=== PATIENT | female | born 1990 | race African-American/Black ===

== ENCOUNTER → 2018-01-12 | Outpatient (CLI) | payer MEDICAID ==
[~2018-01-12] MED LIST: ACET325T38 PO; ACHD5005 PO; ALBU8.5HRX INH; AMLO10TA2 PO; CEFU500T PO; CLN.2T PO; CLON0.1T PO; DIGO125T PO; DIPH25CA79 PO; FOLI1TAB24 PO; GABA-488 PO; LISI5TAB14 PO; LORA-714 PO; LORA1TAB PO; METO-272 PO; METO-333 PO; METO25TA2 PO; METO50TA15 PO; PNT40TEC PO; VENL150T PO; WARF4TAB7 PO; ZALE10CA PO
== END ==
LOC: CARD 10:17
PROVIDERS: ATTEND Physician Assistant
DX: G93.1 Anoxic brain damage, not elsewhere classified (principal); I50.1 Left ventricular failure, unspecified; I11.0 Hypertensive heart disease with heart failure; I51.3 Intracardiac thrombosis, not elsewhere classified
CPT/HCPCS: 93306

== ENCOUNTER 2018-08-05 17:38 | Emergency (ER) | payer MEDICAID ==
[~2018-08-05] VITALS: Ht 160 cm; Wt 95.3 kg
[~2018-08-05 17:38] MED LIST changes: -AMLO10TA2 PO; +AMLO10TA6 PO
[2018-08-05] MEDS ORDERED: CARI1.5C (18:10)
[2018-08-05] MEDS ORDERED: ROPI0.5T2 (18:10)
[2018-08-05] MEDS ORDERED: CYCL10TA9 (18:10)
[2018-08-05] MEDS ORDERED: SACU1TAB (18:10)
[2018-08-05] MEDS ORDERED: FAMO20TA5 (18:11)
--- NOTE | 2018-08-05 18:28 | ED General ---
General Chief Complaint: General Problems/Pain Stated Complaint: HEAD HURTING,RT ANKLE SWOLLEN Nursing Triage Note: PT CO OF SCALP BURN FROM PERMANENT, R ANKLE PAIN FROM FALL, AND LOW BACK PAIN AT TIMES Nursing Sepsis Screen: No Definite Risk Source of Information: Patient Exam Limitations: No Limitations History of Present Illness Date Seen by Provider: Aug 05, 2018 Time Seen by Provider: 17:50 Initial Comments Patient is a 27-year-old female who presents to the emergency room with complaints of a scalp burn from her permanent while she was getting her hair done. Complaints of a right ankle pain from fall and intermittent low back pain. She is currently on Flexeril for her back pain. Timing/Duration: 4-6 Hours Associated Systoms: Denies Symptoms Allergies and Home Medications Allergies Coded Allergies: JIA Inhibitors (Verified Allergy, Severe, 07/24/15) ARB-Angiotensin Receptor Antagonist (Verified Allergy, Severe, 07/24/15) baclofen (Unverified Allergy, Unknown, 03/24/15) ON H&P phenazopyridine (Unverified Allergy, Unknown, 03/24/15) ON H&P Home Medications Albuterol Sulfate 8 Gm Hfa.aer.ad, 2 PUFF INH Q6H PRN for SHORTNESS OF BREATH, ( Reported) Amlodipine Besylate 10 Mg Tablet, 10 MG PO DAILY, (Reported) Metoprolol Tartrate 50 Mg Tablet, 50 MG PO BID Prescribed by: FELECIA FORTUNE on 07/24/15 0841 Venlafaxine HCl 150 Mg Tab.er.24, 150 MG PO DAILY, (Reported) Warfarin Sodium 4 Mg Tablet, 8 MG PO HS, (Reported) TAKES 2 (4MG) TABLETS Patient Home Medication List Home Medication List Reviewed: Yes Review of Systems Review of Systems Constitutional: see HPI; No chills, No fever Genitourinary: no symptoms reported, other (low back pain) Musculoskeletal: see HPI, back pain Skin: see HPI, other (scalp irritation from permanent) Past Waxxjzw-Fjoeic-Pyfdkw Hx Past Med/Social Hx: Reviewed Nursing Past Med/Soc Hx Patient Social History Alcohol Use: Denies Use Recreational Drug Use: Yes (HX) Smoking Status: Former Smoker Recent Foreign Travel: No Contact w/Someone Who Travel: No Recent Infectious Disease Expo: No Recent Hopitalizations: No Immunizations Up To Date Tetanus Booster (TDap): Unknown Date of Pneumonia Vaccine: Mar 21, 2015 Date of Influenza Vaccine: Aug 19, 2015 Past Medical History Surgeries: Yes (DEFIBRILLATOR PLACED 07/23/15. PEG TUBE--REMOVED) Abdominal, Section, Defibrillator, Gallbladder, Tracheostomy Respiratory: Yes (ARDS-CODED; PNEUMOTHORAX 06/2015) Pneumonia, Chronic Bronchitis Currently Using CPAP: No Currently Using BIPAP: No Cardiac: Yes (PULMONARY EDEMA/CARDIAC CAUSE-R/T ATRIAL THROMBUS; CARDIAC ARREST ;V-FIB ) Cardiomyopathy, Endocarditis, Valvular Heart Disease Neurological: Yes (encephalopathy-hypoxia, anoxic brain injury) Reproductive Disorders: No Sexually Transmitted Disease: No Renal Failure Gastrointestinal: Yes Gastroesophageal Reflux Musculoskeletal: Yes (GAIT DISTURBANCE) Endocrine: No Loss of Vision: Denies Hearing Impairment: Denies Cancer: No Psychosocial: Yes (per med record) Anxiety, Bipolar, Depression Integumentary: No Blood Disorders: Yes (ANEMIA) Family Medical History Reviewed Nursing Family Hx Patient reports no known family medical history. Physical Exam Vital Signs Vital Signs - First Documented 08/05/18 17:50 Temp 97.9 Pulse 96 Resp 18 B/P (MAP) 112/91 (98) Pulse Ox 97 Capillary Refill : Less Than 3 Seconds Height, Weight, BMI Height: 5'3.00" Weight: 210lbs. 0.1oz. 95.632780gd; 28.34 BMI Method:Stated General Appearance: No Apparent Distress, WD/WN HEENT: PERRL/EOMI, TMs Normal, Normal ENT Inspection, Pharynx Normal Respiratory: Chest Non Tender, Lungs Clear, Normal Breath Sounds, No Accessory Muscle Use, No Respiratory Distress Cardiovascular: Regular Rate, Rhythm, No Edema, No Gallop, No JVD, No Murmur, Normal Peripheral Pulses Back: Normal Inspection, No CVA Tenderness, No Vertebral Tenderness Neurologic/Psychiatric: Alert, Oriented x3 Skin: Normal Color, Warm/Dry, Other (chemical burn to the scalp.) Progress/Results/Core Measures Suspected Sepsis Recent Fever Within 48 Hours: No Infection Criteria Present: None New/Unexplained Altered Menta: No Sepsis Screen: No Definite Risk SIRS Temperature:97.9 Pulse: 96 Respiratory Rate: 18 Blood Pressure 112 /91 Mean: 98 Results/Orders Lab Results My Orders Vital Signs/I&O Capillary Refill : Less Than 3 Seconds Blood Pressure Mean: 98 Diagnostic Imaging Diagonstic Imaging: Xray Plain Films/CT/US/NM/MRI: ankle Comments NAME: SAL PRIEST [facility] REC#: [id number] PT STATUS: REG ER : 1990 PHYSICIAN: NIK CELIS ADMIT DATE: 08/05/18/ER Draft Date of Exam:08/05/18 ANKLE, RIGHT, 3 VIEWS EXAMINATION: Right ankle radiographs, 3 views. COMPARISON: None. HISTORY: 27-year-old female, fall. Right ankle pain. FINDINGS: There is no identified acute fracture. The alignment of the ankle mortise is unremarkable. There is no identified ankle joint effusion. There is no radiopaque foreign body. There is no particular prominent focal soft tissue swelling. IMPRESSION: Unremarkable radiographs of the right ankle. Dictated on workstation # [id number] Dict: 08/05/181901 Trans: 08/05/181904 [facility] [id number] Interpreted by: SVEN KNOTT MD Electronically signed by: Departure Impression Primary Impression: Ankle pain Additional Impressions: Chemical burn Chronic back pain Disposition: 01 HOME, SELF-CARE Condition: Stable/Unchanged Departure-Patient Inst. Decision time for Depature: 19:14 Referrals: WILLIE KOCH MD (PCP) Primary Care Physician Patient Instructions: Ankle Sprain Add. Discharge Instructions: Follow-up with her primary care provider within 1 week for recheck. Be sure you wash her hair thoroughly to remove all of the permanent. Take your home medications as previously prescribed. Return back to the emergency room for any worsening symptoms or concerns as needed. All discharge instructions reviewed with patient and/or family. Voiced understanding. NIK CELIS Aug 05, 2018 18:28
[2018-08-05 18:32] LABS: BILIRUBIN,URINE NEGATIVE (NEGATIVE); CLARITY,URINE SLIGHTLY CLOUDY; COLOR,URINE YELLOW; GLUCOSE, URINE (UA) NEGATIVE (NEGATIVE); KETONES,URINE NEGATIVE (NEGATIVE); LEUKOCYTE ESTERASE ,URINE NEGATIVE (NEGATIVE); NITRITE,URINE NEGATIVE (NEGATIVE); PH,URINE 5 (5-9); PROTEIN,URINE 4+ (NEGATIVE); UROBILINOGEN,URINE NORMAL (NORMAL)
--- OUTSIDE RECORDS SUMMARY | 2018-08-05 18:34 | XMS REPORT ---
Author Author MALINA ROSA [facility] Address Unknown Care Team Providers Care Potline Monitor Name Role Phone MALINA ROSA Unavailable PROBLEMS Unknown Problems ALLERGIES Substance Reaction Event Type Date Status Aspirin Unknown Drug Allergy March, Active SOCIAL HISTORY Never Assessed PLAN OF CARE Activity Details Follow Up prn Reason:referral VITAL SIGNS Blood pressure systolic 136 mmHg 2017-04-19 Blood pressure diastolic 88 mmHg 2017-04-19 MEDICATIONS Medication Instructions Dosage Frequency Start Date End Date Duration Status Lisinopril Active Warfarin Sodium Active Amlodipine & Diet Manage Prod Active Vitamin D Active Paroxetine HCl Active BusPIRone HCl Active Metoprolol Tartrate Active Ropinirole HCl Active Trazodone HCl Active RESULTS No Results PROCEDURES Procedure Date Ordered Result Body Site LTD ORAL EVALUATION - PROBLEM FOCUS April 19, 2017 INTRAORL-PERIAPICAL 1 FILM [id number] April 19, 2017 IMMUNIZATIONS No Known Immunizations MEDICAL (GENERAL) HISTORY Type Description Date Medical History Heart disease Medical History Defibrillator Medical History Kidney disease
--- OUTSIDE RECORDS SUMMARY | 2018-08-05 18:34 | XMS REPORT | Clinical Summary ---
Author Author [facility] Organization [facility] Address Unknown Phone Unavailable Care Team Providers Care Customer Success Specialist Name Role Phone Ausitn Tobias MD Unavailable Rhona Vazquez MD Unavailable Angie Barros MD Unavailable Marilyn Chapa MD PCP Unavailable Source Comments Some departments are not documenting in the electronic medical record. If you do not see the information that you expected, contact Release of Information in the Health Information Management department at [phone] for further assistance in locating additional records.[facility] Allergies Active Allergy Reactions Severity Noted Date Comments Odilon Inhibitors ANAPHYLAXIS High 12/17/2015 Arb-Angiotensin Receptor ANAPHYLAXIS High 12/17/2015 Antagonist Phenazopyridine UNKNOWN Low 12/09/2015 Current Medications Prescription Sig. Disp. Refills Start End Date Status Date suvorexant (BELSOMRA) 15 Take by mouth at bedtime Active mg tab as needed. ferrous sulfate 325 mg Take 325 mg by mouth Active (65 mg iron) tablet daily. DULoxetine DR (CYMBALTA) Take 60 mg by mouth twice Active 60 mg capsule daily. folic acid (FOLVITE) 1 mg Take 1 mg by mouth daily. Active tablet warfarin (COUMADIN) 3 mg Take 3 mg by mouth daily. Active tablet Pt takes 7 mg daily. warfarin (COUMADIN) 4 mg Take 4 mg by mouth daily. Active tablet amLODIPine (NORVASC) 10 Take 10 mg by mouth Active mg tablet daily. pantoprazole DR Take 40 mg by mouth Active (PROTONIX) 40 mg tablet daily. diphenhydrAMINE Take 25 mg by mouth every Active (BENADRYL) 25 mg capsule 6 hours as needed. metoprolol (LOPRESSOR) 50 Take 50 mg by mouth twice Active mg tablet daily. ergocalciferol (VITAMIN Take 1 Cap by mouth twice 24 Cap 0 12/18/19 Active D-2) 50,000 unit weekly. twice a week for 16 capsuleIndications: 4 weeks then once a week Vitamin D deficiency for 12 weeks. topiramate (TOPAMAX) 200 Take 200 mg by mouth Active mg tablet twice daily. acetaminophen (TYLENOL) Take 325 mg by mouth Active 325 mg tablet every 4 hours as needed for Pain. spironolactone Take 1 Tab by mouth 90 Tab 3 03/19/20 Active (ALDACTONE) 25 mg daily. 16 tabletIndications: Essential hypertension, Proteinuria Active Problems Not on file Social History Tobacco Use Types Packs/Day Years Used Date Never Smoker Sex Assigned at Date Recorded Not on file Last Filed Vital Signs Vital Sign Reading Time Taken Blood Pressure 108/86 03/16/2016 2:22 PM CDT Pulse 74 03/16/2016 2:22 PM CDT Temperature 36.8 C (98.2 F) 03/16/2016 2:12 PM CDT Respiratory Rate - - Oxygen Saturation - - Inhaled Oxygen - - Concentration Weight 81.6 kg (180 lb) 03/16/2016 2:12 PM CDT Height 160 cm (5' 3") 03/16/2016 2:12 PM CDT Body Mass Index 31.89 03/16/2016 2:12 PM CDT Plan of Treatment Health Maintenance Due Date Last Done Comments PHYSICAL (COMPREHENSIVE) 1995 EXAM PERTUSSIS VACCINE 1999 TETANUS VACCINE 2005 CERVICAL CANCER SCREENING 2009 INFLUENZA VACCINE 08/28/2018 HIV SCREENING Completed 12/09/2015 Results Not on filefrom Last 3 Months
--- OUTSIDE RECORDS SUMMARY | 2018-08-05 18:34 | XMS REPORT ---
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 729203868 Problem Adjustment disorder with other symptom F43.29 Active 96245588 ALLERGIES Substance Reaction Event Type Date Status Pyridium Unknown Drug Allergy March, Active Baclofen Unknown Drug Allergy March, Active Aspirin Unknown Drug Allergy March, Active ENCOUNTERS Encounter Location Date Diagnosis [facility] [id number] [place] [phone] March, Psychosis, unspecified psychosis type F29 ; Methamphetamine dependence, 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 and Unspecified mood [affective] disorder F39 [facility] [id number] [place] [phone] Jan, Adjustment disorder with other symptom F43.29 [facility] [id number] [place] [phone] March, Dental examination Z01.20 IMMUNIZATIONS No Known Immunizations SOCIAL HISTORY Never Assessed REASON FOR VISIT intake WB-MA PLAN OF CARE Activity Details Follow Up 3 Weeks Reason: f/u VITAL SIGNS Weight 214.7 lbs 2018-04-14 Heart Rate 82 bpm 2018-04-14 Respiratory Rate 20 2018-04-14 Blood pressure systolic 132 mmHg 2018-04-14 Blood pressure diastolic 86 mmHg 2018-04-14 MEDICATIONS Medication Instructions Dosage Frequency Start Date End Date Duration Status Invega 3 MG Orally Once a day at bedtime 1 tablet March, 30 day (s) Active Famotidine 20 MG Orally Once a day 1 tablet at bedtime 24h Active Paroxetine HCl Not-Taking Amlodipine & Diet Manage Prod 10 mg by oral route Once a day 1 tablet 24h Not-Taking Biotin 5000 5 MG Orally Once a day 1 capsule 24h Active Vitamin D-3 5000 UNIT Orally Once a day 1 tablet 24h Active Metoprolol Tartrate 50 mg Orally Twice a day 1 tablet with food 12h Active BusPIRone HCl Not-Taking Entresto 24-26 MG Orally Twice a day 1 tablet 12h Active Escitalopram Oxalate 10 MG Orally Once a day 1 tablet 24h Not- Taking Ropinirole HCl 0.5 MG Orally at bedtime 1 tablet Active Trazodone HCl Not-Taking Warfarin Sodium 5 MG Orally Once a day 1.5 tablets 24h Active Lisinopril Not-Taking RESULTS No Results PROCEDURES No Known procedures INSTRUCTIONS MEDICATIONS ADMINISTERED No Known Medications MEDICAL (GENERAL) HISTORY Type Description Date Medical History Heart disease Medical History Defibrillator Medical History Kidney disease Medical History HTN Medical History HX OF [place] Surgical History CHOLECYSTECTOMY Hospitalization History FOR SURGERIES, HEART ATTACK
--- OUTSIDE RECORDS SUMMARY | 2018-08-05 18:36 | XMS REPORT | Continuity of Care Document ---
Author Author [facility] Organization [facility] Address Unknown Phone Unavailable Allergies Active Description Code Type Severity Reaction Onset Reported/Identified Relationship to Patient Clinical Status Yes bacl bacl Moderate N/A 03/21/2015 Yes baclofen [id number] Drug Allergy Unknown N/A 03/24/2015 Yes phenazopyridine [id number] Drug Allergy Unknown N/A 03/24/2015 Yes JIA Inhibitors [id number] Drug Allergy Severe N/A 07/24/2015 Yes ARB-Angiotensin Receptor Antagonist [id number] Drug Allergy Severe N/A Medications There is no data. Problems Date Dx Coded Attending Type Code Diagnosis Diagnosed By 03/26/2015 LISSET DIETRICH MD E Ot 285.9 ANEMIA NOS 03/26/2015 DOTTY DIETRICH MDIC E Ot 300.00 ANXIETY STATE NOS 03/26/2015 LISSET DIETRICH MD E Ot 310.89 OTH SPEC NONPSYCHOTIC MENTAL DISORDERS F 03/26/2015 LISSET DIETRICH MD E Ot 348.1 ANOXIC BRAIN DAMAGE 03/26/2015 LISSET DIETRICH MD E Ot 348.31 METABOLIC ENCEPHALOPATHY 03/26/2015 LISSET DIETRICH MD E Ot 424.90 ENDOCARDITIS NOS 03/26/2015 LISSET DIETRICH MD E Ot 425.4 PRIM CARDIOMYOPATHY NEC 03/26/2015 DOTTY DIETRICH MDIC E Ot 428.0 CONGESTIVE HEART FAILURE NOS 03/26/2015 DOTTY DIETRICH MDIC E Ot 429.89 ILL-DEFINED HRT DIS NEC 03/26/2015 LISSET DIETRICH MD E Ot 530.81 ESOPHAGEAL REFLUX 03/26/2015 LISSET DIETRICH MD Ot 781.2 ABNORMALITY OF GAIT 03/26/2015 LISSET DIETRICH MD E Ot 787.20 DYSPHAGIA, UNSPECIFIED 03/26/2015 LISSET DIETRICH MD E Ot V57.89 REHABILITATION PROC NEC 03/26/2015 LISSET DIETRICH MD E Ot V58.61 ANTICOAGULANTS,LT,CURRENT USE 03/26/2015 LISSET DIETRICH MD E Ot 285.9 03/26/2015 KAUR MAZARIEGOS, LISSET E Ot 300.00 03/26/2015 KAUR MAZARIEGOS, LISSET E Ot 310.89 03/26/2015 KAUR MAZARIEGOS, LISSET E Ot 348.1 03/26/2015 KAUR MAZARIEGOS, LISSET E Ot 348.31 03/26/2015 KAUR MAZARIEGOS, LISSET E Ot 425.4 03/26/2015 KAUR MAZARIEGOS, LISSET E Ot 429.89 03/26/2015 KAUR MAZARIEGOS, LISSET E Ot 530.81 03/26/2015 KAUR MAZARIEGOS, LISSET E Ot 781.2 03/26/2015 KAUR MAZARIEGOS, LISSET E Ot 787.20 03/26/2015 KAUR MAZARIEGOS, LISSET E Ot V57.89 03/26/2015 KAUR MAZARIEGOS, LISSET E Ot V58.61 03/27/2015 KAUR MAZARIEGOS, LISSET E Ot 285.9 03/27/2015 KAUR MAZARIEGOS, LISSET E Ot 300.00 03/27/2015 KAUR MAZARIEGOS, LISSET E Ot 310.89 03/27/2015 KAUR MAZARIEGOS, LISSET E Ot 348.1 03/27/2015 KAUR MAZARIEGOS, LISSET E Ot 348.31 03/27/2015 KAUR MAZARIEGOS, LISSET E Ot 424.90 03/27/2015 KAUR MAZARIEGOS, LISSET E Ot 425.4 03/27/2015 KAUR MAZARIEGOS, LISSET E Ot 428.0 03/27/2015 KAUR MAZARIEGOS, LISSET E Ot 429.89 03/27/2015 KAUR MAZARIEGOS, LISSET E Ot 530.81 03/27/2015 KAUR MAZARIEGOS, LISSET E Ot 781.2 03/27/2015 KAUR MAZARIEGOS, LISSET E Ot 787.20 03/27/2015 KAUR MAZARIEGOS, LISSET E Ot V57.89 03/27/2015 KAUR MAZARIEGOS, LISSET E Ot V58.61 03/27/2015 KAUR MAZARIEGOS, LISSET E Ot 285.9 03/27/2015 KAUR MAZARIEGOS, LISSET E Ot 300.00 03/27/2015 KAUR MAZARIEGOS, LISSET E Ot 310.89 03/27/2015 KAUR MAZARIEGOS, LISSET E Ot 348.1 03/27/2015 KAUR MAZARIEGOS, LISSET E Ot 348.31 03/27/2015 KAUR MAZARIEGOS, LISSET E Ot 425.4 03/27/2015 KAUR MAZARIEGOS, LISSET E Ot 429.89 03/27/2015 KAUR MAZARIEGOS, LISSET E Ot 530.81 03/27/2015 KAUR MAZARIEGOS, LISSET E Ot 781.2 03/27/2015 KAUR MAZARIEGOS, LISSET E Ot 787.20 03/27/2015 KAUR MAZARIEGOS, LISSET E Ot V57.89 03/27/2015 KAUR MAZARIEGOS, LISSET E Ot V58.61 03/29/2015 GELLENDER DO, APRIL A Ot 285.9 03/29/2015 GELLENDER DO, APRIL A Ot 296.80 03/29/2015 GELLENDER DO, APRIL A Ot 300.00 03/29/2015 GELLENDER DO, APRIL A Ot 348.1 03/29/2015 GELLENDER DO, APRIL A Ot 348.31 03/29/2015 GELLENDER DO, APRIL A Ot 401.9 03/29/2015 GELLENDER DO, APRIL A Ot 425.4 03/29/2015 GELLENDER DO, APRIL A Ot 427.81 03/29/2015 GELLENDER DO, APRIL A Ot 530.81 03/29/2015 GELLENDER DO, APRIL A Ot 593.9 03/29/2015 GELLENDER DO, APRIL A Ot 786.50 03/30/2015 GELLENDER DO, APRIL A Ot 285.9 03/30/2015 GELLENDER DO, APRIL A Ot 296.80 03/30/2015 GELLENDER DO, APRIL A Ot 300.00 03/30/2015 GELLENDER DO, APRIL A Ot 348.1 03/30/2015 GELLENDER DO, APRIL A Ot 348.31 03/30/2015 GELLENDER DO, APRIL A Ot 401.9 03/30/2015 GELLENDER DO, APRIL A Ot 425.4 03/30/2015 GELLENDER DO, APRIL A Ot 427.81 03/30/2015 GELLENDER DO, APRIL A Ot 530.81 03/30/2015 GELLENDER DO, APRIL A Ot 593.9 03/30/2015 GELLENDER DO, APRIL A Ot 786.50 03/31/2015 GELLENDER DO, APRIL A Ot 285.9 03/31/2015 GELLENDER DO, APRIL A Ot 296.80 03/31/2015 GELLENDER DO, APRIL A Ot 300.00 03/31/2015 GELLENDER DO, APRIL A Ot 348.1 03/31/2015 GELLENDER DO, APRIL A Ot 348.31 03/31/2015 GELLENDER DO, APRIL Guthrie Ot 401.9 03/31/2015 GELLENDER DO, APRIL Guthrie Ot 425.4 03/31/2015 GELLENDER DO, APRIL Guthrie Ot 427.81 03/31/2015 GELLENDER DO, APRIL Guthrie Ot 530.81 03/31/2015 GELLENDER DO, APRIL Guthrie Ot 593.9 03/31/2015 GELLENDER DO, APRIL Guthrie Ot 786.50 03/31/2015 GELLENDER DO, APRIL Guthrie Ot 285.9 ANEMIA NOS 03/31/2015 GELLENDER DO, APRIL Guthrie Ot 293.84 ANXIETY DISORDER IN CONDITIONS CLASSIFIE 03/31/2015 GELLENDER DO, APRIL Guthrie Ot 296.80 BIPOLAR DISORDER, UNSPECIFIED 03/31/2015 GELLENDER DO, APRIL Guthrie Ot 300.00 03/31/2015 GELLENDER DO, APRIL Guthrie Ot 348.1 ANOXIC BRAIN DAMAGE 03/31/2015 GELLENDER DO, APRIL Guthrie Ot 348.31 03/31/2015 GELLENDER DO, APRIL Guthrie Ot 401.9 HYPERTENSION NOS 03/31/2015 GELLENDER DO, APRIL Guthrie Ot 425.4 PRIM CARDIOMYOPATHY NEC 03/31/2015 GELLENDER DO, APRIL Guthrie Ot 427.81 SINOATRIAL NODE DYSFUNCT 03/31/2015 GELLENDER DO, APRIL Guthrie Ot 530.81 ESOPHAGEAL REFLUX 03/31/2015 GELLENDER DO, APRIL Guthrie Ot 593.9 RENAL URETERAL DIS NOS 03/31/2015 GELLENDER DO, APRIL Guthrie Ot 786.50 03/31/2015 GELLENDER DO, APRIL Guthrie Ot 786.59 CHEST PAIN NEC 03/31/2015 GELLENDER DO, APRIL Guthrie Ot V12.53 PERSONAL HISTORY OF SUDDEN CARDIAC ARRES 04/12/2015 KAUR MAZARIEGOS, LISSET E Ot 285.9 04/12/2015 KAUR MAZARIEGOS, LISSET E Ot 300.00 04/12/2015 KAUR MAZARIEGOS, LISSET E Ot 310.89 04/12/2015 KAUR MAZARIEGOS, LISSET E Ot 348.1 04/12/2015 KAUR MAZARIEGOS, LISSET E Ot 348.31 04/12/2015 KAUR MAZARIEGOS, LISSET E Ot 424.90 04/12/2015 KAUR MAZARIEGOS, LISSET E Ot 425.4 04/12/2015 KAUR MAZARIEGOS, LISSET E Ot 428.0 04/12/2015 KAUR MAZARIEGOS, LISSET E Ot 429.89 04/12/2015 KAUR MAZARIEGOS, LISSET E Ot 530.81 04/12/2015 KAUR MAZARIEGOS, LISSET E Ot 781.2 04/12/2015 KAUR MAZARIEGOS, LISSET E Ot 787.20 04/12/2015 KAUR MAZARIEGOS, LISSET E Ot V57.89 04/12/2015 KAUR MAZARIEGOS, LISSET E Ot V58.61 04/12/2015 KAUR MAZARIEGOS, LISSET E Ot 285.9 04/12/2015 KAUR MAZARIEGOS, LISSET E Ot 300.00 04/12/2015 KAUR MAZARIEGOS, LISSET E Ot 310.89 04/12/2015 KAUR MAZARIEGOS, LISSET E Ot 348.1 04/12/2015 KAUR MAZARIEGOS, LISSET E Ot 348.31 04/12/2015 KAUR MAZARIEGOS, LISSET E Ot 424.90 04/12/2015 KAUR MAZARIEGOS, LISSET E Ot 425.4 04/12/2015 KAUR MAZARIEGOS, LISSET E Ot 428.0 04/12/2015 KAUR MAZARIEGOS, LISSET E Ot 429.89 04/12/2015 KAUR MAZARIEGOS, LISSET E Ot 530.81 04/12/2015 KAUR MAZARIEGOS, LISSET E Ot 781.2 04/12/2015 KAUR MAZARIEGOS, LISSET E Ot 787.20 04/12/2015 KAUR MAZARIEGOS, LISSET E Ot V57.89 04/12/2015 LISSET DIETRICH MD E Ot V58.61 07/24/2015 FELECIA FORTUNE MD Ot 348.1 ANOXIC BRAIN DAMAGE 07/24/2015 FELECIA FORTUNE MD Ot 397.0 TRICUSPID VALVE DISEASE 07/24/2015 FELECIA FORTUNE MD Ot 401.9 HYPERTENSION NOS 07/24/2015 FELECIA FORTUNE MD Ot 425.4 PRIM CARDIOMYOPATHY NEC 07/24/2015 FELECIA FORTUNE MD Ot 428.0 CONGESTIVE HEART FAILURE NOS 07/24/2015 FELECIA FORTUNE MD Ot 428.22 CHRONIC SYSTOLIC HRT FAILURE 07/24/2015 FELECIA FORTUNE MD Ot V12.53 PERSONAL HISTORY OF SUDDEN CARDIAC ARRES 07/24/2015 FELECIA FORTUNE MD Ot V58.61 ANTICOAGULANTS,LT,CURRENT USE 07/24/2015 FELECIA FORTUNE MD Ot V58.69 OTH MED,LT,CURRENT USE 07/25/2015 BLANCO BERMAN Ot 401.9 07/25/2015 NERISSA LAURA, BLANCO Mohan Ot 425.4 07/25/2015 NERISSA LAURA, BLANCO Mohan Ot 427.5 07/25/2015 NERISSA LAURA, BLANCO Mohan Ot 428.0 07/29/2015 GELLENDER DO, APRIL Guthrie Ot 296.80 07/29/2015 GELLENDER DO, APRIL Guthrie Ot 300.00 07/29/2015 GELLENDER DO, APRIL Guthrie Ot 348.1 07/29/2015 GELLENDER DO, APRIL Guthrie Ot 425.4 07/29/2015 GELLENDER DO, APRIL Guthrie Ot 428.0 07/29/2015 GELLENDER DO, APRIL Guthrie Ot 512.89 07/29/2015 GELLENDER DO, APRIL Guthrie Ot 530.81 07/29/2015 GELLENDER DO, APRIL Guthrie Ot V12.51 07/29/2015 GELLENDER DO, APRIL Guthrie Ot V12.53 07/29/2015 GELLENDER DO, APRIL Guthrie Ot V45.02 07/29/2015 GELLENDER DO, APRIL Guthrie Ot V58.61 07/29/2015 GELLENDER DO, APRIL Guthrie Ot 296.80 BIPOLAR DISORDER, UNSPECIFIED 07/29/2015 GELLENDER DO, APRIL Guthrie Ot 300.00 ANXIETY STATE NOS 07/29/2015 GELLENDER DO, APRIL Guthrie Ot 348.1 ANOXIC BRAIN DAMAGE 07/29/2015 GELLENDER DO, APRIL Guthrie Ot 425.4 PRIM CARDIOMYOPATHY NEC 07/29/2015 GELLENDER DO, APRIL Guthrie Ot 428.0 CONGESTIVE HEART FAILURE NOS 07/29/2015 GELLENDER DO, APRIL Guthrie Ot 428.22 CHRONIC SYSTOLIC HRT FAILURE 07/29/2015 GELLENDER DO, APRIL Guthrie Ot 512.89 OTHER PNEUMOTHORAX 07/29/2015 GELLENDER DO, APRIL Guthrie Ot 530.81 ESOPHAGEAL REFLUX 07/29/2015 GELLENDER DO, APRIL Guthrie Ot V12.51 HX-VENOUS THROMBOSIS EMBOLISM 07/29/2015 GELLENDER DO, APRIL Guthrie Ot V12.53 PERSONAL HISTORY OF SUDDEN CARDIAC ARRES 07/29/2015 GELLENDER DO, APRIL Guthrie Ot V45.02 AUTO IMPLANTABLE CARDIAC DEFIBRILLATOR I 07/29/2015 GELLENDER DO, APRIL Guthrie Ot V58.61 ANTICOAGULANTS,LT,CURRENT USE 07/29/2015 GELLENDER DO, APRIL Guthrie Ot 296.80 07/29/2015 GELLENDER DO, APRIL A Ot 300.00 07/29/2015 GELLENDER DO, APRIL A Ot 348.1 07/29/2015 GELLENDER DO, APRIL A Ot 425.4 07/29/2015 GELLENDER DO, APRIL A Ot 428.0 07/29/2015 GELLENDER DO, APRIL A Ot 428.22 07/29/2015 GELLENDER DO, APRIL A Ot 512.89 07/29/2015 GELLENDER DO, APRIL A Ot 530.81 07/29/2015 GELLENDER DO, APRIL A Ot V12.51 07/29/2015 GELLENDER DO, APRIL A Ot V12.53 07/29/2015 GELLENDER DO, APRIL A Ot V45.02 07/29/2015 GELLENDER DO, APRIL A Ot V58.61 07/29/2015 GELLENDER DO, APRIL A Ot 296.80 07/29/2015 GELLENDER DO, APRIL A Ot 300.00 07/29/2015 GELLENDER DO, APRIL A Ot 348.1 07/29/2015 GELLENDER DO, APRIL A Ot 425.4 07/29/2015 GELLENDER DO, APRIL A Ot 428.0 07/29/2015 GELLENDER DO, APRIL A Ot 512.89 07/29/2015 GELLENDER DO, APRIL A Ot 530.81 07/29/2015 GELLENDER DO, APRIL A Ot V12.51 07/29/2015 GELLENDER DO, APRIL A Ot V12.53 07/29/2015 GELLENDER DO, APRIL A Ot V45.02 07/29/2015 GELLENDER DO, APRIL A Ot V58.61 07/29/2015 GELLENDER DO, APRIL A Ot 296.80 07/29/2015 GELLENDER DO, APRIL A Ot 300.00 07/29/2015 GELLENDER DO, APRIL A Ot 348.1 07/29/2015 GELLENDER DO, APRIL A Ot 425.4 07/29/2015 GELLENDER DO, APRIL A Ot 428.0 07/29/2015 GELLENDER DO, APRIL A Ot 512.89 07/29/2015 GELLENDER DO, APRIL A Ot 530.81 07/29/2015 GELLENDER DO, APRIL A Ot V12.51 07/29/2015 GELLENDER DO, APRIL A Ot V12.53 07/29/2015 CATINA TINSLEY, APRIL Guthrie Ot V45.02 07/29/2015 CATINA TINSLEY, APRIL Guthrie Ot V58.61 08/09/2015 KRISTA MAZARIEGOS, ORESTES Guthrie Ot 724.5 BACKACHE NOS 08/09/2015 ORESTES VELASCO MD Ot 729.5 PAIN IN LIMB 08/09/2015 ORESTES VELASCO MD Ot V45.02 AUTO IMPLANTABLE CARDIAC DEFIBRILLATOR I 08/24/2015 RALPH LÓPEZ MD Ot 300.00 ANXIETY STATE NOS 08/24/2015 RALPH LÓPEZ MD Ot 348.1 ANOXIC BRAIN DAMAGE 08/24/2015 RALPH LÓPEZ MD Ot 425.4 PRIM CARDIOMYOPATHY NEC 08/24/2015 RALPH LÓPEZ MD Ot 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 08/24/2015 RALPH LÓPEZ MD Ot V58.61 ANTICOAGULANTS,LT,CURRENT USE 09/01/2015 FELECIA FORTUNE MD Ot 397.0 09/01/2015 FELECIA FORTUNE MD Ot 401.9 09/01/2015 FELECIA FORTUNE MD Ot 425.4 09/01/2015 FELECIA FORTUNE MD Ot 428.0 09/04/2015 RALPH LÓPEZ MD Ot 300.00 09/04/2015 RALPH LÓPEZ MD Ot 348.1 09/04/2015 RALPH LÓPEZ MD Ot 425.4 09/04/2015 RALPH LÓPEZ MD Ot 996.04 09/04/2015 RALPH LÓPEZ MD Ot V58.61 12/01/2015 RODRIGO HILL DO Ot E16.2 HYPOGLYCEMIA, UNSPECIFIED 12/01/2015 RODRIGO HILL DO Ot R07.89 OTHER CHEST PAIN 12/01/2015 RODRIGO HILL DO Ot Z86.74 PERSONAL HISTORY OF SUDDEN CARDIAC ARRES 12/01/2015 RODRIGO HILL DO Ot Z95.810 PRESENCE OF AUTOMATIC (IMPLANTABLE) CARD 02/15/2016 OSMAN GONSALES MD Ot I42.0 DILATED CARDIOMYOPATHY 02/15/2016 ODGERS MD, OSMAN K Ot Z95.0 PRESENCE OF CARDIAC PACEMAKER 02/17/2016 DRU MAZARIEGOS, OSMAN Mohan Ot I42.0 02/17/2016 DRU MAZARIEGOS, OSMAN Mohan Ot Z95.0 03/03/2016 NERISSA LAURA BLANCO K Ot 401.9 03/03/2016 NERISSA LAURA BLANCO K Ot 425.4 03/03/2016 NERISSA LAURA BLANCO K Ot 427.5 03/03/2016 NERISSA LAURA BLANCO K Ot 428.0 03/03/2016 TONG MAZARIEGOS, FELECIA Diaz Ot 397.0 03/03/2016 TONG MAZARIEGOS, FELECIA Diaz Ot 401.9 03/03/2016 OTNG MAZARIEGOS, FELECIA Diaz Ot 425.4 03/03/2016 TONG MAZARIEGOS, FELECIA Diaz Ot 428.0 03/17/2016 NERISSA LAURA BLANCO K Ot G93.1 ANOXIC BRAIN DAMAGE, NOT ELSEWHERE CLASS 03/17/2016 NERISSA LAURA BLANCO K Ot I10 ESSENTIAL (PRIMARY) HYPERTENSION 03/17/2016 NERISSA LAURA BLANCO K Ot I50.1 LEFT VENTRICULAR FAILURE 03/17/2016 NERISSA LAURA BLANCO K Ot R09.2 RESPIRATORY ARREST 01/12/2018 NERISSA LAURA BLANCO K Ot 401.9 HYPERTENSION NOS 01/12/2018 NERISSA LAURA BLANCO K Ot 425.4 PRIM CARDIOMYOPATHY NEC 01/12/2018 NERISSA LAURA BLANCO K Ot 427.5 CARDIAC ARREST 01/12/2018 NERISSA LAURA BLANCO K Ot 428.0 CONGESTIVE HEART FAILURE NOS 01/12/2018 TONG MAZARIEGOS, FELECIA Diaz Ot 397.0 TRICUSPID VALVE DISEASE 01/12/2018 TONG MAZARIEGOS, FELECIA Diaz Ot 401.9 HYPERTENSION NOS 01/12/2018 TONG MAZARIEGOS, FELECIA Diaz Ot 425.4 PRIM CARDIOMYOPATHY NEC 01/12/2018 FELECIA FORTUNE MD Ot 428.0 CONGESTIVE HEART FAILURE NOS 01/12/2018 BLANCO BERMAN Ot G93.1 ANOXIC BRAIN DAMAGE, NOT ELSEWHERE CLASS 01/12/2018 BLANCO BERMAN Ot I10 ESSENTIAL (PRIMARY) HYPERTENSION 01/12/2018 BLANCO BERMAN Ot I50.1 LEFT VENTRICULAR FAILURE 01/12/2018 SMITHLENCHO LAURABLANCO Ot R09.2 RESPIRATORY ARREST 01/13/2018 SMITHLENCHO LAURABLANCO Ot G93.1 ANOXIC BRAIN DAMAGE, NOT ELSEWHERE CLASS 01/13/2018 SMITHLENCHO LAURABLANCO Ot I11.0 HYPERTENSIVE HEART DISEASE WITH HEART FA 01/13/2018 NERISSA LAURABLANCO Kimberlee Ot I50.1 LEFT VENTRICULAR FAILURE, UNSPECIFIED 01/13/2018 SMITHLENCHO LAURABLANCO Ot I51.3 INTRACARDIAC THROMBOSIS, NOT ELSEWHERE C 01/25/2018 SMITHLENCHO LAURABLANCO Ot G93.1 ANOXIC BRAIN DAMAGE, NOT ELSEWHERE CLASS 01/25/2018 NERISSA LAURA BLANCO Mohan Ot I11.0 HYPERTENSIVE HEART DISEASE WITH HEART FA 01/25/2018 NERISSA LAURABLANCO Ot I50.1 LEFT VENTRICULAR FAILURE, UNSPECIFIED 01/25/2018 NERISSA LAURA BLANCO Mohan Ot I51.3 INTRACARDIAC THROMBOSIS, NOT ELSEWHERE C Procedures Code Description Performed By Performed On 37.22 LEFT HEART CARDIAC CATH 03/28/2015 88.56 CORONAR ARTERIOGR-2 CATH 03/28/2015 Results There is no data. Encounters ACCT No. Visit Date/Time Discharge Status Pt. Type Provider Facility Loc./Unit Complaint [id number] 01/12/2018 10:17:00 01/12/2018 23:59:59 CLS Outpatient BLANCO BERMAN [facility] CARD G93.1 ANOXIC ENCEPHALOPATHY [id number] 10/06/2017 12:00:00 10/06/2017 23:59:59 CLS Preadmit TONG MAZARIEGOS, FELECIA Diaz [facility] CARD CARDIOMYOPATHY I42.9 [id number] 03/03/2016 12:12:00 03/03/2016 23:59:59 CLS Outpatient BLANCO BERMAN [facility] CARD ENCOPELPATH [id number] 02/15/2016 15:59:00 02/15/2016 18:46:00 DIS Emergency OSMAN GONSALES MD [facility] ER DEFIBRILLATOR ISSUES [id number] 12/01/2015 18:08:00 12/01/2015 21:10:00 DIS Emergency RODRIGO HILL DO [facility] ER IRREGULAR HEART RATE [id number] 08/23/2015 20:00:00 08/24/2015 01:08:00 DIS Emergency MARIBEL MAZARIEGOS, RALPH Mcelroy [facility] ER DEFIBRILLATOR BEEPING [id number] 08/08/2015 22:55:00 08/09/2015 00:13:00 DIS Emergency ORESTES VELASCO MD [facility] ER L ARM/RIB CAGE PAIN [id number] 07/27/2015 18:45:00 07/29/2015 12:40:00 DIS Inpatient APRIL DOMINIQUE DO [facility] CSD L PNEUMOTHORAX L CHEST WALL PX ELEV LFT'S [id number] 07/23/2015 06:38:00 07/24/2015 11:45:00 DIS Outpatient FELECIA FORTUNE MD [facility] CATH CGF,CARDIOMYOPATHY [id number] 07/15/2015 11:28:00 07/15/2015 23:59:59 CLS Outpatient FELECIA FORTUNE MD [facility] LAB CHF,HTN,TR [id number] 07/11/2015 10:45:00 07/11/2015 23:59:59 CLS Outpatient BLANCO BERMAN [facility] CARD CHF, CARDINUREOPATHY HTN [id number] 03/26/2015 13:23:00 03/31/2015 18:00:00 DIS Inpatient APRIL DOMINIQUE DO [facility] CSD UNK [id number] 03/21/2015 12:45:00 03/26/2015 12:46:00 DIS Inpatient LISSET DIETRICH MD [facility] IRF DEBILITY,ENCEPHALOPATHY [id number] 08/23/2015 20:00:34 ACT Document Registration [id number] 04/14/2018 11:00:00 04/14/2018 23:59:59 [facility]
[2018-08-05 18:42] LABS: BACTERIA,URINE NEGATIVE /HPF
--- NOTE | 2018-08-05 19:05 | Diagnostic Imaging Report ---
EXAMINATION: Right ankle radiographs, 3 views. COMPARISON: None. HISTORY: 27-year-old female, fall. Right ankle pain. FINDINGS: There is no identified acute fracture. The alignment of the ankle mortise is unremarkable. There is no identified ankle joint effusion. There is no radiopaque foreign body. There is no particular prominent focal soft tissue swelling. IMPRESSION: Unremarkable radiographs of the right ankle. Dictated by: Dictated on workstation # [id number]
[2018-08-05 19:32] VITALS: BP 112/91
== END 2018-08-05 19:33 | disposition home or self-care (01) ==
LOC: EDUNIT# 17:38 → ER 17:39
DX: T65.94XA Toxic effect of unspecified substance, undetermined, initial encounter (principal); T20.45XA Corrosion of unspecified degree of scalp [any part], initial encounter; T32.0 Corrosions involving less than 10% of body surface; M25.571 Pain in right ankle and joints of right foot; M54.5 Low back pain; G89.29 Other chronic pain; I42.9 Cardiomyopathy, unspecified; K21.9 Gastro-esophageal reflux disease without esophagitis; F41.9 Anxiety disorder, unspecified; F31.9 Bipolar disorder, unspecified; Z79.51 Long term (current) use of inhaled steroids; Z79.01 Long term (current) use of anticoagulants; Z87.891 Personal history of nicotine dependence; Z98.890 Other specified postprocedural states; Z93.0 Tracheostomy status; Z87.01 Personal history of pneumonia (recurrent); Z95.810 Presence of automatic (implantable) cardiac defibrillator; Z88.8 Allergy status to other drugs, medicaments and biological substances; W19.XXXA Unspecified fall, initial encounter
CPT/HCPCS: 73610; 81000

== ENCOUNTER → 2018-10-23 | Outpatient (CLI) | payer MEDICAID ==
[~2018-10-23] MED LIST changes: +APIX5TAB PO; +CARI1.5C; +CYCL10TA9; +FAMO20TA5; +ROPI0.5T2; +SACU1TAB
== END ==
LOC: CARD 12:07
PROVIDERS: ATTEND Internal Medicine Cardiovascular Disease
DX: I42.9 Cardiomyopathy, unspecified (principal); I10 Essential (primary) hypertension; R00.1 Bradycardia, unspecified; I08.3 Combined rheumatic disorders of mitral, aortic and tricuspid valves; I25.2 Old myocardial infarction; Z79.01 Long term (current) use of anticoagulants
CPT/HCPCS: 93306

== ENCOUNTER 2018-11-01 14:50 | Emergency (ER) | payer MEDICAID ==
[~2018-11-01] VITALS: Ht 160 cm; Wt 92.1 kg
[~2018-11-01 14:50] MED LIST changes: -APIX5TAB PO
--- OUTSIDE RECORDS SUMMARY | 2018-11-01 15:26 | XMS REPORT | Clinical Summary ---
Author Author [facility] Organization [facility] Address Unknown Phone Unavailable Care Team Providers Care Strategic Planning Director Name Role Phone Austin Tobias MD Unavailable Rhona Vazquez MD Unavailable Angie Barros MD Unavailable Marilyn Chapa MD PCP Unavailable Source Comments Some departments are not documenting in the electronic medical record. If you do not see the information that you expected, contact Release of Information in the Health Information Management department at [phone] for further assistance in locating additional records.[facility] Allergies Active Allergy Reactions Severity Noted [...] Last Done Comments PHYSICAL (COMPREHENSIVE) 1995 EXAM DTAP/TDAP VACCINES (1 - 2006 Tdap) INFLUENZA VACCINE 06/28/2018 CERVICAL CANCER SCREENING 2018 HIV SCREENING Completed 12/09/2015 Results Not on filefrom Last 3 Months
--- OUTSIDE RECORDS SUMMARY | 2018-11-01 15:27 | XMS REPORT ---
Author Author JUAN BAKER Organization 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 513536106 Problem Adjustment disorder with other symptom F43.29 Active 26337564 Problem Obesity, morbid, BMI 40.0-49.9 E66.01 Active 844798976 Problem Uncontrolled hypertension I10 Active 58108678 Problem Unspecified mood [affective] disorder F39 Active 97775010 Problem Psychosis, unspecified psychosis type F29 Active 06975762 Problem Cardiomyopathy, unspecified type I42.9 Active 20742810 Problem Insomnia, unspecified type G47.00 Active [id number] ALLERGIES No Information ENCOUNTERS Encounter Location Date Diagnosis [place] [address] [address] Sep, [place] [address] [address] Sep, Exercise counseling Z71.82 [place] [address] [address] Aug, [place] [address] [address] [place] [id number] [place] [address] Aug, Elevated serum creatinine R79.89 [place] [address] [address] Aug, Cardiomyopathy, unspecified type I42.9 ; Uncontrolled hypertension I10 ; Obesity, morbid, BMI 40.0-49.9 E66.01 and BMI 40.0-44.9, adult Z68.41 [place] [address] [place] [address] Aug, [place] [address] [address] Aug, Psychosis, unspecified psychosis type F29 ; Methamphetamine dependence, 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 and Unspecified mood [affective] disorder F39 [place] [address] [address] Aug, Shortness of breath R06.02 ; Obesity, morbid, BMI 40.0-49.9 E66.01 ; Cardiomyopathy, unspecified type I42.9 ; Needs flu shot Z23 ; Encounter for immunization Z23 and BMI 40.0-44.9, adult Z68.41 [place] [address] [address] Aug, [place] [address] [address] Jul, [place] [address] [address] Jul, [place] [address] [address] Jul, Vaginal discharge N89.8 and BMI 40.0-44.9, adult Z68.41 [place] [address] [address] Jul, Psychosis, unspecified psychosis type F29 ; Methamphetamine dependence, 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 ; Unspecified mood [affective] disorder F39 and Other terminal make up operator (current) drug therapy Z79.899 [place] [address] [address] Jul, [place] [address] [address] 05 Jul, 2018 Uncontrolled hypertension I10 ; Cardiomyopathy, unspecified type I42.9 ; Insomnia, unspecified type G47.00 and BMI 40.0-44.9, adult Z68.41 [place] [address] [address] [facility] [id number] [id number] Jun, Psychosis, unspecified psychosis type F29 ; Methamphetamine dependence, 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 [address] [place] [id number] [address] Jan, Adjustment disorder with other symptom F43.29 [facility] [address] [place] [id number] [id number] March, Dental examination Z01.20 IMMUNIZATIONS No Known Immunizations SOCIAL HISTORY Never Assessed REASON FOR VISIT weight management PLAN OF CARE Activity Details Follow Up 1 Week Reason: VITAL SIGNS MEDICATIONS Unknown Medications RESULTS No Results PROCEDURES No Known procedures INSTRUCTIONS MEDICATIONS ADMINISTERED No Known Medications MEDICAL (GENERAL) HISTORY Type Description Date Medical History Heart disease Medical History Defibrillator Medical History Kidney disease Medical History HTN Medical History HX OF PR Surgical History CHOLECYSTECTOMY Hospitalization History FOR SURGERIES, HEART ATTACK
--- OUTSIDE RECORDS SUMMARY | 2018-11-01 15:27 | XMS REPORT ---
Author Author EH HERRERA [facility] Address [address] [place] [address] Care Team Providers Care Title Curator Name Role Phone EH HERRERA Unavailable PROBLEMS Type Condition ICD9-CM Code OWM72-VH Code Onset Dates Condition Status SNOMED Code Problem Adjustment disorder with other symptom F43.29 Active 46008783 Problem Insomnia, unspecified type G47.00 Active 398464995 Problem Uncontrolled hypertension I10 Active 14085436 Problem Unspecified mood [affective] disorder F39 Active 16138102 Problem Psychosis, unspecified psychosis type F29 Active 02041118 Problem Cardiomyopathy, unspecified type I42.9 Active 59204352 Problem Methamphetamine dependence, 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 530085666 ALLERGIES Substance Reaction Event Type Date Status Pyridium Unknown Drug Allergy Jun, Active Baclofen Unknown Drug Allergy Jun, Active Aspirin Unknown Drug Allergy Jun, Active ENCOUNTERS Encounter Location Date Diagnosis [facility] [place] [id number] [place] [address] 85335- 5486 Aug, [facility] [place] [id number] [place] [address] 16226- 7881 Jul, [place] [id number] [place] [address] 23216- 5865 18 Jul, 2018 [facility] [place] [id number] [place] [address] 96338- 8728 Jul, Vaginal discharge N89.8 and BMI 40.0-44.9, adult Z68.41 [facility] [place] [id number] [place] [address] 98823- 4610 13 Jul, 2018 Psychosis, unspecified psychosis type F29 ; Methamphetamine dependence, 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 ; Unspecified mood [affective] disorder F39 and Other exterminator helper (current) drug therapy Z79.899 [place] [id number] [id number] Jul, [place] [id number] [place] [address] 239603- 2146 Jul, Uncontrolled hypertension I10 ; Cardiomyopathy, unspecified type I42.9 ; Insomnia, unspecified type G47.00 and BMI 40.0-44.9, adult Z68.41 [place] [address] [place] [address] 072066- 6424 Jun, Psychosis, unspecified psychosis type F29 ; Methamphetamine dependence, 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 and Unspecified mood [affective] disorder F39 [place] [id number] [place] [address] 84147- 2020 March, Psychosis, unspecified psychosis type F29 ; Methamphetamine dependence, 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 and Unspecified mood [affective] disorder F39 [address] [place] [address] 96358- 5054 Jan, Adjustment disorder with other symptom F43.29 [facility] [id number] [place] [address] [id number] March, Dental examination Z01.20 IMMUNIZATIONS No Known Immunizations SOCIAL HISTORY Never Assessed REASON FOR VISIT f/u Slim Garcia PLAN OF CARE Activity Details Follow Up 3 Weeks Reason: f/u VITAL SIGNS Weight 227.9 lbs 2018-07-27 Heart Rate 78 bpm 2018-07-27 Respiratory Rate 18 2018-07-27 Blood pressure systolic 124 mmHg 2018-07-27 Blood pressure diastolic 72 mmHg 2018-07-27 MEDICATIONS Medication Instructions Dosage Frequency Start Date End Date Duration Status Entresto 24-26 MG Orally Twice a day 1 tablet 12h Active Biotin 5000 5 MG Orally Once a day 1 capsule 24h Active Famotidine 20 MG Orally Once a day 1 tablet at bedtime 24h Active Vraylar 1.5 MG Orally Once a day 1 capsule 24h 30 Jun, 2018 30 day(s) Active Warfarin Sodium 5 MG Orally Once a day 1.5 tablets 24h Active Amlodipine & Diet Manage Prod 10 mg by oral route Once a day 1 tablet 24h Active Metoprolol Tartrate 50 mg Orally Twice a day 1 tablet with food 12h Active Vitamin D-3 5000 UNIT Orally Once a day 1 tablet 24h Active Ropinirole HCl 0.5 MG Orally at bedtime 1 tablet Active Lisinopril Not-Taking RESULTS Name Result Date Reference Range URINE DRUG SCREEN (IN HOUSE) 2018-07-27 Lot # [id number] Exp date 08/2019 Control + COCAINE Negative AMPH Negative MTD Negative THC Negative OPIATE Negative BENZO Negative PCP Negative BAR Negative OXY Negative MAMP Negative BUP Negative MDMA Negative TCA Negative PROCEDURES Procedure Date Ordered Result Body Site DRUG TEST PRSMV DIR OPT OBS Jul 27, 2018 INSTRUCTIONS MEDICATIONS ADMINISTERED No Known Medications MEDICAL (GENERAL) HISTORY Type Description Date Medical History Heart disease Medical History Defibrillator Medical History Kidney disease Medical History HTN Medical History HX OF [place] Surgical History CHOLECYSTECTOMY Hospitalization History FOR SURGERIES, HEART ATTACK
--- OUTSIDE RECORDS SUMMARY | 2018-11-01 15:27 | XMS REPORT ---
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 876207405 Problem Adjustment disorder with other symptom F43.29 Active 82134983 Problem Obesity, morbid, BMI 40.0-49.9 E66.01 Active 764464118 Problem Uncontrolled hypertension I10 Active 24826188 Problem Unspecified mood [affective] disorder F39 Active 76558635 Problem Psychosis, unspecified psychosis type F29 Active 20303686 Problem Cardiomyopathy, unspecified type I42.9 Active 90923504 Problem Insomnia, unspecified type G47.00 Active 499631879 ALLERGIES Substance Reaction Event Type Date Status Pyridium Unknown Drug Allergy Aug, Active Baclofen dizziness Drug Allergy Aug, Active Aspirin Unknown Drug Allergy Aug, Active ENCOUNTERS Encounter Location Date Diagnosis [facility] [address] [place] [address] 62907- 9398 Sep, [facility] [address] [place] [address] 52110- 3552 Sep, [facility] [id number] [place] [address] 95550- 9597 Aug, [facility] [id number] [place] [address] 73132- 9668 Aug, Elevated serum creatinine R79.89 [facility] [id number] [place] [address] 67468- 7213 Aug, Cardiomyopathy, unspecified type I42.9 ; Uncontrolled hypertension I10 ; Obesity, morbid, BMI 40.0-49.9 E66.01 and BMI 40.0-44.9, adult Z68.41 [place] [address] 70956- 0211 Aug, [place] [address] [phone]- 3657 Aug, Psychosis, unspecified psychosis type F29 ; Methamphetamine dependence, 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 and Unspecified mood [affective] disorder F39 [place] [address] 08656- 3228 Aug, Shortness of breath R06.02 ; Obesity, morbid, BMI 40.0-49.9 E66.01 ; Cardiomyopathy, unspecified type I42.9 ; Needs flu shot Z23 ; Encounter for immunization Z23 and BMI 40.0-44.9, adult Z68.41 [place] [address] 46901- 6367 Aug, [place] [address] 21899- 2428 Jul, [place] [address] 02546- 4390 Jul, [place] [address] 09275- 3662 Jul, Vaginal discharge N89.8 and BMI 40.0-44.9, adult Z68.41 [place] [address] 58122- 1980 Jul, Psychosis, unspecified psychosis type F29 ; Methamphetamine dependence, 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 ; Unspecified mood [affective] disorder F39 and Other assisted (current) drug therapy Z79.899 [place] [address] 73996- 2245 Jul, [place] [address] 33481- 4786 Jul, Uncontrolled hypertension I10 ; Cardiomyopathy, unspecified type I42.9 ; Insomnia, unspecified type G47.00 and BMI 40.0-44.9, adult Z68.41 [facility] [id number] [address] Jun, Psychosis, unspecified psychosis type F29 ; Methamphetamine dependence, 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 and Unspecified mood [affective] disorder F39 [facility] [id number] [address] March, Psychosis, unspecified psychosis type F29 ; Methamphetamine dependence, 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 and Unspecified mood [affective] disorder F39 [facility] [id number] [address] Jan, Adjustment disorder with other symptom F43.29 [facility] [id number] [id number] March, Dental examination Z01.20 IMMUNIZATIONS No Known Immunizations SOCIAL HISTORY Never Assessed REASON FOR VISIT Blood Pressure-YONATAN laurent, pt is complaining of her blood pressure is still pretty high PLAN OF CARE Activity Details Follow Up 2 Weeks Reason:bp follow up VITAL SIGNS Height 5 ft 3 in in 2018-09-20 Weight 235.7 lbs 2018-09-20 Temperature 97.1 degrees Fahrenheit 2018-09-20 Heart Rate 86 bpm 2018-09-20 Respiratory Rate 20 2018-09-20 Oximetry on room air:97 % 2018-09-20 BMI 41.75 kg/m2 2018-09-20 Blood pressure systolic 150 mmHg 2018-09-20 Blood pressure diastolic 110 mmHg 2018-09-20 MEDICATIONS Medication Instructions Dosage Frequency Start Date End Date Duration Status Vitamin D-3 5000 UNIT Orally Once a day 1 tablet 24h Active Famotidine 20 MG Orally Once a day 1 tablet at bedtime 24h Active Biotin 5000 5 MG Orally Once a day 1 capsule 24h Active Clonidine HCl 0.2 MG Orally Twice a day PRN 1 tablet 30 days Active Vraylar 4.5 MG Orally Once a day 1 capsule 24h Aug, 30 day(s) Active Metoprolol Tartrate 50 mg Orally Twice a day 2 tablets 12h 30 days Active Entresto 49-51 MG Orally Twice a day 1 tablet 12h Nov, 30 days Active Warfarin Sodium 5 MG Orally Once a day 1 tablets 24h Active Ropinirole HCl 0.5 MG Orally at bedtime 1 tablet Active Amlodipine Besylate 10 MG Orally Once a day 1 tablet 24h Active Amitriptyline HCl 25 MG Orally Once a day at bedtime 1 tablet Jul, Active Warfarin Sodium 1 MG Orally Tuesday, Tuesday, Tuesday, Tuesday and Tuesday 1/ 2 tablet Jul, 30 day(s) Active RESULTS No Results PROCEDURES Procedure Date Ordered Result Body Site LAB NOT BILL[facility] BY [facility] Sep 20, 2018 ELISABETH, ROUTINE* Sep 20, 2018 INSTRUCTIONS MEDICATIONS ADMINISTERED No Known Medications MEDICAL (GENERAL) HISTORY Type Description Date Medical History Heart disease Medical History Defibrillator Medical History Kidney disease Medical History HTN Medical History HX OF [place] Surgical History CHOLECYSTECTOMY Hospitalization History FOR SURGERIES, HEART ATTACK
--- OUTSIDE RECORDS SUMMARY | 2018-11-01 15:27 | XMS REPORT ---
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 738059738 Problem Adjustment disorder with other symptom F43.29 Active 97123586 Problem Obesity, morbid, BMI 40.0-49.9 E66.01 Active 811743238 Problem Uncontrolled hypertension I10 Active 75083455 Problem Unspecified mood [affective] disorder F39 Active 51367849 Problem Psychosis, unspecified psychosis type F29 Active 64740384 Problem Cardiomyopathy, unspecified type I42.9 Active 14903078 Problem Insomnia, unspecified type G47.00 Active 098803171 ALLERGIES No Information ENCOUNTERS Encounter Location Date Diagnosis [place] [address] [address]775- 6115 Sep, [place] [address] 29244- 6102 Sep, [place] [id number] [place] [address] 44794- 4307 Aug, Elevated serum creatinine R79.89 [place] [address] 79719- 8720 Aug, Cardiomyopathy, unspecified type I42.9 ; Uncontrolled hypertension I10 ; Obesity, morbid, BMI 40.0-49.9 E66.01 and BMI 40.0-44.9, adult Z68.41 [place] [address] 62591- 4316 Aug, [place] [address] 86298- 8696 Aug, Psychosis, unspecified psychosis type F29 ; Methamphetamine dependence, 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 and Unspecified mood [affective] disorder F39 [place] [id number] [place] [address] 29074- 3983 Aug, Shortness of breath R06.02 ; Obesity, morbid, BMI 40.0-49.9 E66.01 ; Cardiomyopathy, unspecified type I42.9 ; Needs flu shot Z23 ; Encounter for immunization Z23 and BMI 40.0-44.9, adult Z68.41 [place] [address] 41290- 5997 Aug, [place] [address] 87257- 5301 Jul, [place] [address] 81963- 1069 Jul, [place] [address] 78127- 0821 Jul, Vaginal discharge N89.8 and BMI 40.0-44.9, adult Z68.41 [place] [id number] [place] [address] 22436- 9437 Jul, Psychosis, unspecified psychosis type F29 ; Methamphetamine dependence, 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 ; Unspecified mood [affective] disorder F39 and Other intermediate frame tender (current) drug therapy Z79.899 [place] [address] 01476- 8226 Jul, [place] [address] 52910- 0143 Jul, Uncontrolled hypertension I10 ; Cardiomyopathy, unspecified type I42.9 ; Insomnia, unspecified type G47.00 and BMI 40.0-44.9, adult Z68.41 [place] [id number] [place] [address] 25567- 0315 Jun, Psychosis, unspecified psychosis type F29 ; Methamphetamine dependence, 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 and Unspecified mood [affective] disorder F39 [facility] [address] [facility] [id number] [address] March, Psychosis, unspecified psychosis type F29 ; Methamphetamine dependence, 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 and Unspecified mood [affective] disorder F39 [facility] [address] [facility]] [id number] [address] Jan, Adjustment disorder with other symptom F43.29 [facility] [id number] [id number] March, Dental examination Z01.20 IMMUNIZATIONS No Known Immunizations SOCIAL HISTORY Never Assessed REASON FOR VISIT new labs PLAN OF CARE VITAL SIGNS MEDICATIONS Unknown Medications RESULTS No Results PROCEDURES No Known procedures INSTRUCTIONS MEDICATIONS ADMINISTERED No Known Medications MEDICAL (GENERAL) HISTORY Type Description Date Medical History Heart disease Medical History Defibrillator Medical History Kidney disease Medical History HTN Medical History HX OF [place] Surgical History CHOLECYSTECTOMY Hospitalization History FOR SURGERIES, HEART ATTACK
--- OUTSIDE RECORDS SUMMARY | 2018-11-01 15:27 | XMS REPORT ---
Author Author JUAN BAKER Organization [facility] Address [address] [place] [address] Care Team Providers Care Tailor Fitter Name Role Phone JUAN BAKER Unavailable PROBLEMS Type Condition ICD9-CM Code [id number] Code Onset Dates Condition Status SNOMED Code Problem Adjustment disorder with other symptom F43.29 Active 42274606 Problem Insomnia, unspecified type G47.00 Active 742091788 Problem Uncontrolled hypertension I10 Active 59184304 Problem Unspecified mood [affective] disorder F39 Active 56444381 Problem Psychosis, unspecified psychosis type F29 Active 54659866 Problem Cardiomyopathy, unspecified type I42.9 Active 00490606 Problem Methamphetamine dependence, 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 872738852 ALLERGIES No Information ENCOUNTERS Encounter Location Date Diagnosis [facility] [address] 18280- 7226 04 Aug, 2018 [facility] [address] 13519- 9585 Jul, [facility] [id number] [place] [address] 67022- 3947 18 Jul, 2018 [facility] [address] 83436- 4337 Jul, Vaginal discharge N89.8 and BMI 40.0-44.9, adult Z68.41 [facility] [address] 78920- 5202 Jul, Psychosis, unspecified psychosis type F29 ; Methamphetamine dependence, 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 ; Unspecified mood [affective] disorder F39 and Other usp (current) drug therapy Z79.899 [facility] [address] 70261- 4574 Jul, [facility] [address] [id number], [place] [address]- 4056 Jul, Uncontrolled hypertension I10 ; Cardiomyopathy, unspecified type I42.9 ; Insomnia, unspecified type G47.00 and BMI 40.0-44.9, adult Z68.41 [facility] [address] [id number], [place] [address]- [address]89 Jun, Psychosis, unspecified psychosis type F29 ; Methamphetamine dependence, 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 and Unspecified mood [affective] disorder F39 [place] [address] [place] [address] 61051- 4860 March, Psychosis, unspecified psychosis type F29 ; Methamphetamine dependence, 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 and Unspecified mood [affective] disorder F39 [place] [address] [id number], [place] [address]- 8363 Jan, Adjustment disorder with other symptom F43.29 [facility] [address] [place] [address] [id number] March, Dental examination Z01.20 IMMUNIZATIONS No Known Immunizations SOCIAL HISTORY Never Assessed REASON FOR VISIT Medication refill request PLAN OF CARE VITAL SIGNS MEDICATIONS Medication Instructions Dosage Frequency Start Date End Date Duration Status Warfarin Sodium 1 MG Orally Tuesday, Tuesday, Tuesday, Tuesday and Tuesday 1/ 2 tablet Jul, 30 day(s) Active Warfarin Sodium 5 mg Orally Once a day 1 tablets 24h 30 days Active RESULTS No Results PROCEDURES No Known procedures INSTRUCTIONS MEDICATIONS ADMINISTERED No Known Medications MEDICAL (GENERAL) HISTORY Type Description Date Medical History Heart disease Medical History Defibrillator Medical History Kidney disease Medical History HTN Medical History HX OF [place] Surgical History CHOLECYSTECTOMY Hospitalization History FOR SURGERIES, HEART ATTACK
--- OUTSIDE RECORDS SUMMARY | 2018-11-01 15:27 | XMS REPORT ---
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 884328552 Problem Adjustment disorder with other symptom F43.29 Active 23962223 Problem Obesity, morbid, BMI 40.0-49.9 E66.01 Active 318904428 Problem Uncontrolled hypertension I10 Active 77045938 Problem Unspecified mood [affective] disorder F39 Active 01719848 Problem Psychosis, unspecified psychosis type F29 Active 87981530 Problem Cardiomyopathy, unspecified type I42.9 Active 81246800 Problem Insomnia, unspecified type G47.00 Active 369112414 ALLERGIES No Information ENCOUNTERS Encounter Location Date Diagnosis [place] [id number] [place] [address] 19728- 7328 Oct, [place] [id number] [place] [address] 45417- 1214 Sep, Psychosis, unspecified psychosis type F29 ; Methamphetamine dependence, 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 and Unspecified mood [affective] disorder F39 [facility] [id number] [place] [address] 35999- 0139 Sep, Exercise counseling Z71.82 [place] [id number] [place] [address] 61730- 6553 Aug, [place] [id number] [place] [address] 66397- 5408 Aug, Elevated serum creatinine R79.89 [place] [id number] [place] [address] 77343- 5472 Aug, Cardiomyopathy, unspecified type I42.9 ; Uncontrolled hypertension I10 ; Obesity, morbid, BMI 40.0-49.9 E66.01 and BMI 40.0-44.9, adult Z68.41 [place] [address] [place] [address] 56471- 7444 Aug, [place] [address] 04181- 8115 Aug, Psychosis, unspecified psychosis type F29 ; Methamphetamine dependence, 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0-44.9, adult Z68.41 [place] [id number] [place] [address] 49217- 9413 Jul, Psychosis, unspecified psychosis type F29 ; Methamphetamine dependence, 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 ; Unspecified mood [affective] disorder F39 and Other ferry terminal agent (current) drug therapy Z79.899 [place] [id number] [place] [address] 33607- 6780 Jul, [place] [address] 44623066- 5691 Jul, Uncontrolled hypertension I10 ; Cardiomyopathy, unspecified type I42.9 ; Insomnia, unspecified type G47.00 and BMI 40.0-44.9, adult Z68.41 [facility] [id number] [address] Jun, Psychosis, unspecified psychosis type F29 ; Methamphetamine dependence, 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 and Unspecified mood [affective] disorder F39 [facility] [id number] [place] [address] [phone]- 4792 March, Psychosis, unspecified psychosis type F29 ; Methamphetamine dependence, 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 and Unspecified mood [affective] disorder F39 [facility] [id number], [place] [address]- [address] Jan, Adjustment disorder with other symptom F43.29 [facility] [id number] [place] [address] [id number] March, Dental examination Z01.20 IMMUNIZATIONS No Known Immunizations SOCIAL HISTORY Never Assessed REASON FOR VISIT PA request PLAN OF CARE VITAL SIGNS MEDICATIONS Unknown Medications RESULTS No Results PROCEDURES No Known procedures INSTRUCTIONS MEDICATIONS ADMINISTERED No Known Medications MEDICAL (GENERAL) HISTORY Type Description Date Medical History Heart disease Medical History Defibrillator Medical History Kidney disease Medical History HTN Medical History HX OF [place] Surgical History CHOLECYSTECTOMY Hospitalization History FOR SURGERIES, HEART ATTACK
--- OUTSIDE RECORDS SUMMARY | 2018-11-01 15:27 | XMS REPORT ---
Author Author JUAN BAKER Organization [facility] Address [address] [place] [address] Care Team Providers Care Cook Box Filler Name Role Phone JUAN BAKER Unavailable PROBLEMS Type Condition ICD9-CM Code [id number] Code Onset Dates Condition Status SNOMED Code Problem Adjustment disorder with other symptom F43.29 Active 78573193 Problem Insomnia, unspecified type G47.00 Active 009265270 Problem Uncontrolled hypertension I10 Active 63528893 Problem Unspecified mood [affective] disorder F39 Active 52586358 Problem Psychosis, unspecified psychosis type F29 Active 50227706 Problem Cardiomyopathy, unspecified type I42.9 Active 38611373 Problem Methamphetamine dependence, 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 876009804 ALLERGIES Substance Reaction Event Type Date Status Pyridium Unknown Drug Allergy Jul, Active Baclofen dizziness Drug Allergy Jul, Active Aspirin Unknown Drug Allergy Jul, Active ENCOUNTERS Encounter Location Date Diagnosis [place] [id number] [address] Aug, [place] [address] [place] [id number] [place] [address] Jul, [place] [address] [place] [id number] [place] [address] Jul, [place] [address] [place] [id number] [place] [address] 97[address] 6[address] Jul, Vaginal discharge N89.8 and BMI 40.0-44.9, adult Z68.41 [place] [address] [place] [id number] [place] [address] 76188- 8493 Jul, Psychosis, unspecified psychosis type F29 ; Methamphetamine dependence, 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 ; Unspecified mood [affective] disorder F39 and Other [facility] (current) drug therapy Z79.899 [place] [address] [place] [address] Jul, [place] [address] [place] [id number] [place], [place] [address] Jul, Uncontrolled hypertension I10 ; Cardiomyopathy, unspecified type I42.9 ; Insomnia, unspecified type G47.00 and BMI 40.0-44.9, adult Z68.41 [place] [address] [address] Jun, Psychosis, unspecified psychosis type F29 ; Methamphetamine dependence, 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 and Unspecified mood [affective] disorder F39 [place] [id number] [place] [address] March, Psychosis, unspecified psychosis type F29 ; Methamphetamine dependence, 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 and Unspecified mood [affective] disorder F39 [place] [address] [place] [id number] [place] [address] Jan, Adjustment disorder with other symptom F43.29 [facility] [address] [place] [id number] March, Dental examination Z01.20 IMMUNIZATIONS No Known Immunizations SOCIAL HISTORY Never Assessed REASON FOR VISIT [facility]-BHAVYA laurent PLAN OF CARE Activity Details Follow Up prn Reason: VITAL SIGNS Height 5 ft 3 in in 2018-08-02 Weight 226.5 lbs 2018-08-02 Temperature 96.8 degrees Fahrenheit 2018-08-02 Heart Rate 101 bpm 2018-08-02 Respiratory Rate 18 2018-08-02 Oximetry on room air:97 % 2018-08-02 BMI 40.12 kg/m2 2018-08-02 Blood pressure systolic 140 mmHg 2018-08-02 Blood pressure diastolic 120 mmHg 2018-08-02 MEDICATIONS Medication Instructions Dosage Frequency Start Date End Date Duration Status Entresto 24-26 MG Orally Twice a day 1 tablet 12h Active Metoprolol Tartrate 50 mg Orally Twice a day 2 tablets 12h 30 days Active Biotin 5000 5 MG Orally Once a day 1 capsule 24h Active Amlodipine & Diet Manage Prod 10 mg by oral route Once a day 1 tablet 24h Active Vitamin D-3 5000 UNIT Orally Once a day 1 tablet 24h Active Famotidine 20 MG Orally Once a day 1 tablet at bedtime 24h Active Ropinirole HCl 0.5 MG Orally at bedtime 1 tablet Active Warfarin Sodium 5 MG Orally Once a day 1.5 tablets 24h Active Vraylar 1.5 MG Orally Once a day 1 capsule 24h Jun, 30 day(s) Active RESULTS No Results PROCEDURES No Known procedures INSTRUCTIONS MEDICATIONS ADMINISTERED No Known Medications MEDICAL (GENERAL) HISTORY Type Description Date Medical History Heart disease Medical History Defibrillator Medical History Kidney disease Medical History HTN Medical History HX OF [place] Surgical History CHOLECYSTECTOMY Hospitalization History FOR SURGERIES, HEART ATTACK
--- OUTSIDE RECORDS SUMMARY | 2018-11-01 15:28 | XMS REPORT ---
Author Author EH HERRERA [facility] Address [address] [place] [address] Care Team Providers Care Fisheries Biologist Name Role Phone SHARONEH Unavailable PROBLEMS Type Condition ICD9-CM Code [id number] Code Onset Dates Condition Status SNOMED Code Problem Adjustment disorder with other symptom F43.29 Active 62597354 Problem Insomnia, unspecified type G47.00 Active 562361018 Problem Uncontrolled hypertension I10 Active 93914270 Problem Unspecified mood [affective] disorder F39 Active 19220040 Problem Psychosis, unspecified psychosis type F29 Active 59862269 Problem Cardiomyopathy, unspecified type I42.9 Active 89530036 Problem Methamphetamine dependence, 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 969265160 ALLERGIES Substance Reaction Event Type Date Status Pyridium Unknown Drug Allergy Jul, Active Baclofen dizziness Drug Allergy Jul, Active Aspirin Unknown Drug Allergy Jul, Active ENCOUNTERS Encounter Location Date Diagnosis [facility] [address] [place] [id number] [place] [address] Aug, [facility] [address] [place] [address] [id number] [place] [address] 18563- 6[address] Jul, [facility] [address] [place] [id number] [place] [address] 88311- 9230 Jul, [facility] [address] [place] [id number] [place] [address] 90175- 0706 Jul, Vaginal discharge N89.8 and BMI 40.0-44.9, adult Z68.41 [facility] [address] [place] [id number] [place] [address] 04407- 3784 Jul, Psychosis, unspecified psychosis type F29 ; Methamphetamine dependence, 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 ; Unspecified mood [affective] disorder F39 and 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 Z79.899 [place] [address] [place] [id number] [address] Jul, [place] [address] [place] [id number] [place] [address] 118862- [address] Jul, Uncontrolled hypertension I10 ; Cardiomyopathy, unspecified type I42.9 ; Insomnia, unspecified type G47.00 and BMI 40.0-44.9, adult Z68.41 [place] [address] [place] [address] 007299- [address] Jun, Psychosis, unspecified psychosis type F29 ; Methamphetamine dependence, 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 and Unspecified mood [affective] disorder F39 [place] [address] [place] [id number] [place] [address] 66652- 9[address] March, Psychosis, unspecified psychosis type F29 ; Methamphetamine dependence, 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 and Unspecified mood [affective] disorder F39 [place] [address] [place] [address] 134[address]- 1122 Jan, Adjustment disorder with other symptom F43.29 [facility] [address] [place] [address] [id number] [place] [id number] March, Dental examination Z01.20 IMMUNIZATIONS No Known Immunizations SOCIAL HISTORY Never Assessed REASON FOR VISIT f/u [place] PLAN OF CARE Activity Details Follow Up 3 Weeks Reason: Follow-up VITAL SIGNS Height 5 ft 3 in in 2018-08-10 Weight 227.8 lbs 2018-08-10 Heart Rate 84 bpm 2018-08-10 Respiratory Rate 20 2018-08-10 BMI 40.35 kg/m2 2018-08-10 Blood pressure systolic 138 mmHg 2018-08-10 Blood pressure diastolic 110 mmHg 2018-08-10 MEDICATIONS Medication Instructions Dosage Frequency Start Date End Date Duration Status Vraylar 3 MG Orally Once a day 1 capsule 24h Jul, 30 day(s) Active Amlodipine & Diet Manage Prod 10 mg by oral route Once a day 1 tablet 24h Active Metoprolol Tartrate 50 mg Orally Twice a day 2 tablets 12h 30 days Active Entresto 24-26 MG Orally Twice a day 1 tablet 12h Active Warfarin Sodium 5 mg Orally Once a day 1 tablets 24h 30 days Active Famotidine 20 MG Orally Once a day 1 tablet at bedtime 24h Active Vitamin D-3 5000 UNIT Orally Once a day 1 tablet 24h Active Ropinirole HCl 0.5 MG Orally at bedtime 1 tablet Active Clonidine HCl 0.2 MG Orally Twice a day PRN 1 tablet Active Biotin 5000 5 MG Orally Once a day 1 capsule 24h Active Warfarin Sodium 1 MG Orally Tuesday, Tuesday, Tuesday, Tuesday and Tuesday/ tablet Jul, 30 day(s) Active Amitriptyline HCl 25 MG Orally Once a day at bedtime 1 tablet Jul, 30 day(s) Active RESULTS No Results PROCEDURES No Known procedures INSTRUCTIONS MEDICATIONS ADMINISTERED No Known Medications MEDICAL (GENERAL) HISTORY Type Description Date Medical History Heart disease Medical History Defibrillator Medical History Kidney disease Medical History HTN Medical History HX OF [place] Surgical History CHOLECYSTECTOMY Hospitalization History FOR SURGERIES, HEART ATTACK
--- OUTSIDE RECORDS SUMMARY | 2018-11-01 15:28 | XMS REPORT ---
Author Author JUAN BAKER Organization [facility] Address [address] [place] [address] Care Team Providers Care Operations Developer Name Role Phone JUAN BAKER Unavailable PROBLEMS Type Condition ICD9-CM Code HPT36-KV Code Onset Dates Condition Status SNOMED Code Problem Adjustment disorder with other symptom F43.29 Active 41353745 Problem Insomnia, unspecified type G47.00 Active 875216068 Problem Uncontrolled hypertension I10 Active 99517995 Problem Unspecified mood [affective] disorder F39 Active 44622632 Problem Psychosis, unspecified psychosis type F29 Active 37477348 Problem Cardiomyopathy, unspecified type I42.9 Active 57046298 Problem Methamphetamine dependence, 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 328757506 ALLERGIES No Information ENCOUNTERS Encounter Location Date Diagnosis [facility] [address] [address] Aug, [facility] [address] [address] Jul, [facility] [address] [place] [id number] [place] [address]- [address] 18 Jul, 2018 [facility] [address] [address] Jul, Vaginal discharge N89.8 and BMI 40.0-44.9, adult Z68.41 [facility] [address] [address]- [address] Jul, Psychosis, unspecified psychosis type F29 ; Methamphetamine dependence, 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 ; Unspecified mood [affective] disorder F39 and Other care home (current) drug therapy Z79.899 [facility] [address] [address] Jul, [facility] [address] [place] [id number] [address] Jul, Uncontrolled hypertension I10 ; Cardiomyopathy, unspecified type I42.9 ; Insomnia, unspecified type G47.00 and BMI 40.0-44.9, adult Z68.41 [facility] [address] [place] [id number] [address] Jun, Psychosis, unspecified psychosis type F29 ; Methamphetamine dependence, 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 and Unspecified mood [affective] disorder F39 [place] [address] [place] [address]01[address] March, Psychosis, unspecified psychosis type F29 ; Methamphetamine dependence, 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 and Unspecified mood [affective] disorder F39 [place] [address] [address] Jan, Adjustment disorder with other symptom F43.29 [facility] [address] [place] [id number] March, Dental examination Z01.20 IMMUNIZATIONS No Known Immunizations SOCIAL HISTORY Never Assessed REASON FOR VISIT Returned call PLAN OF CARE VITAL SIGNS MEDICATIONS Unknown Medications RESULTS No Results PROCEDURES No Known procedures INSTRUCTIONS MEDICATIONS ADMINISTERED No Known Medications MEDICAL (GENERAL) HISTORY Type Description Date Medical History Heart disease Medical History Defibrillator Medical History Kidney disease Medical History HTN Medical History HX OF [place] Surgical History CHOLECYSTECTOMY Hospitalization History FOR SURGERIES, HEART ATTACK
--- OUTSIDE RECORDS SUMMARY | 2018-11-01 15:28 | XMS REPORT ---
Author Author PAULA SANTANA Organization [facility] Address [address] [place] [address] Care Team Providers Care Fashion Director Party Plan Sales Name Role Phone PAULA SANTANA Unavailable PROBLEMS Type Condition ICD9-CM Code [id number] Code Onset Dates Condition Status SNOMED Code Problem Adjustment disorder with other symptom F43.29 Active 95850980 Problem Insomnia, unspecified type G47.00 Active 263351260 Problem Uncontrolled hypertension I10 Active 08289739 Problem Unspecified mood [affective] disorder F39 Active 82421773 Problem Psychosis, unspecified psychosis type F29 Active 80995179 Problem Cardiomyopathy, unspecified type I42.9 Active 22144080 Problem Methamphetamine dependence, 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 136166638 ALLERGIES Substance Reaction Event Type Date Status Pyridium Unknown Drug Allergy Jul, Active Baclofen dizziness Drug Allergy Jul, Active Aspirin Unknown Drug Allergy Jul, Active ENCOUNTERS Encounter Location Date Diagnosis [facility] [address] [place] [address]307- [address]40 Aug, [facility] [address] [place] [address] [id number] [place] [address] 12094- 3720 Jul, [facility] [address] [place] [address] [id number] [place] [address] 37955- 7922 Jul, [facility] [address] [place] [id number] [place] [address] 67366- 8507 Jul, Vaginal discharge N89.8 and BMI 40.0-44.9, adult Z68.41 [facility] [address] [place] [id number] [place] [address] 59069- 8758 Jul, Psychosis, unspecified psychosis type F29 ; Methamphetamine dependence, 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 ; Unspecified mood [affective] disorder F39 and 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 Z79.899 [place] [address] [place] [address] 04598- 3165 Jul, [place] [address] [address] [id number] [place] [address] Jul, Uncontrolled hypertension I10 ; Cardiomyopathy, unspecified type I42.9 ; Insomnia, unspecified type G47.00 and BMI 40.0-44.9, adult Z68.41 [place] [address] [place] [id number] [place] [address] 83008- 2747 Jun, Psychosis, unspecified psychosis type F29 ; Methamphetamine dependence, 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 and Unspecified mood [affective] disorder F39 [place] [address] [place] [id number] [place] [address] 747[address]- [address] March, Psychosis, unspecified psychosis type F29 ; Methamphetamine dependence, 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 BHAVYA Lucero PLAN OF CARE Activity Details Follow Up if not improving with PCP or reg follow up Reason: VITAL SIGNS Height 5 ft 3 in in 2018-08-10 Weight 228.2 lbs 2018-08-10 Temperature 97.9 degrees Fahrenheit 2018-08-10 Heart Rate 70 bpm 2018-08-10 Respiratory Rate 20 2018-08-10 BMI 40.42 kg/m2 2018-08-10 Blood pressure systolic 138 mmHg 2018-08-10 Blood pressure diastolic 90 mmHg 2018-08-10 MEDICATIONS Medication Instructions Dosage Frequency Start Date End Date Duration Status Amitriptyline HCl 25 MG Orally Once a day at bedtime 1 tablet Jul, 30 day(s) Active Ropinirole HCl 0.5 MG Orally at bedtime 1 tablet Active Fluconazole 150 MG Orally every 72hr 1 tablet Jul, Jul, 2 doses Active Entresto 24-26 MG Orally Twice a day 1 tablet 12h Active Biotin 5000 5 MG Orally Once a day 1 capsule 24h Active Metronidazole 500 mg Orally Twice a day 1 tablet 12h Jul, Jul, 10 day(s) Active Warfarin Sodium 1 MG Orally Tuesday, Tuesday, Tuesday, Tuesday and Tuesday 1/ 2 tablet Jul, 30 day(s) Active Famotidine 20 MG Orally Once a day 1 tablet at bedtime 24h Active Amlodipine & Diet Manage Prod 10 mg by oral route Once a day 1 tablet 24h Active Vitamin D-3 5000 UNIT Orally Once a day 1 tablet 24h Active Metoprolol Tartrate 50 mg Orally Twice a day 2 tablets 12h 30 days Active Vraylar 3 MG Orally Once a day 1 capsule 24h Jul, 30 day(s) Active Clonidine HCl 0.2 MG Orally Twice a day PRN 1 tablet Active Warfarin Sodium 5 mg Orally Once a day 1 tablets 24h 30 days Active RESULTS No Results PROCEDURES Procedure Date Ordered Result Body Site LAB NOT BILLED BY [facility] Aug 10, 2018 Bacterial Vaginosis In House Aug 10, 2018 INSTRUCTIONS MEDICATIONS ADMINISTERED No Known Medications MEDICAL (GENERAL) HISTORY Type Description Date Medical History Heart disease Medical History Defibrillator Medical History Kidney disease Medical History HTN Medical History HX OF [place] Surgical History CHOLECYSTECTOMY Hospitalization History FOR SURGERIES, HEART ATTACK
--- OUTSIDE RECORDS SUMMARY | 2018-11-01 15:28 | XMS REPORT ---
Author Author PAULA SANTANA [facility] Address [address] [place] [address] Care Team Providers Care Collection Coordinator Name Role Phone PAULA SANTANA Unavailable PROBLEMS Type Condition ICD9-CM Code [id number] Code Onset Dates Condition Status SNOMED Code Problem Adjustment disorder with other symptom F43.29 Active 23953220 Problem Insomnia, unspecified type G47.00 Active 756989443 Problem Uncontrolled hypertension I10 Active 37795323 Problem Unspecified mood [affective] disorder F39 Active 55200299 Problem Psychosis, unspecified psychosis type F29 Active 19001966 Problem Cardiomyopathy, unspecified type I42.9 Active 27150222 Problem Methamphetamine dependence, 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 571781153 ALLERGIES No Information ENCOUNTERS Encounter Location Date Diagnosis [facility] [address] [address] Aug, [facility] [address] [address] Jul, [facility] [address] [address] Jul, [facility] [address] [address] Jul, Vaginal discharge N89.8 and BMI 40.0-44.9, adult Z68.41 [facility] [address] [address] Jul, Psychosis, unspecified psychosis type F29 ; Methamphetamine dependence, 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 ; Unspecified mood [affective] disorder F39 and Other [facility] (current) drug therapy Z79.899 [facility] [address] [address] Jul, [facility] [address] [place] [id number] [address] Jul, Uncontrolled hypertension I10 ; Cardiomyopathy, unspecified type I42.9 ; Insomnia, unspecified type G47.00 and BMI 40.0-44.9, adult Z68.41 [facility] [address] [place] [id number] [address] Jun, Psychosis, unspecified psychosis type F29 ; Methamphetamine dependence, 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 and Unspecified mood [affective] disorder F39 [facility] [address] [place] [address]01- 4[address] March, Psychosis, unspecified psychosis type F29 ; Methamphetamine dependence, 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 and Unspecified mood [affective] disorder F39 [facility] [address] [id number] [address] Jan, Adjustment disorder with other symptom F43.29 [facility] [id number] [id number] March, Dental examination Z01.20 IMMUNIZATIONS No Known Immunizations SOCIAL HISTORY Never Assessed REASON FOR VISIT Lab results PLAN OF CARE VITAL SIGNS MEDICATIONS Unknown Medications RESULTS No Results PROCEDURES No Known procedures INSTRUCTIONS MEDICATIONS ADMINISTERED No Known Medications MEDICAL (GENERAL) HISTORY Type Description Date Medical History Heart disease Medical History Defibrillator Medical History Kidney disease Medical History HTN Medical History HX OF [place] Surgical History CHOLECYSTECTOMY Hospitalization History FOR SURGERIES, HEART ATTACK
--- OUTSIDE RECORDS SUMMARY | 2018-11-01 15:28 | XMS REPORT ---
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 619546807 Problem Adjustment disorder with other symptom F43.29 Active 11154194 Problem Obesity, morbid, BMI 40.0-49.9 E66.01 Active 205970219 Problem Uncontrolled hypertension I10 Active 65240503 Problem Unspecified mood [affective] disorder F39 Active 77256049 Problem Psychosis, unspecified psychosis type F29 Active 44812242 Problem Cardiomyopathy, unspecified type I42.9 Active 57637675 Problem Insomnia, unspecified type G47.00 Active 972113027 ALLERGIES Substance Reaction Event Type Date Status Pyridium Unknown Drug Allergy Aug, Active Baclofen dizziness Drug Allergy Aug, Active Aspirin Unknown Drug Allergy Aug, Active ENCOUNTERS Encounter Location Date Diagnosis [place] [id number] [place] [phone] Aug, [facility] [address] [place] [address]66[address]- [address]83 Aug, Shortness of breath R06.02 ; Obesity, morbid, BMI 40.0-49.9 E66.01 ; Cardiomyopathy, unspecified type I42.9 ; Needs flu shot Z23 ; Encounter for immunization Z23 and BMI 40.0-44.9, adult Z68.41 [facility] [address] [place] [phone] Aug, [facility] [id number] [address] Jul, [facility] [address] [place] [id number] [place] [address] 10623[address] 4106 Jul, [place] [address] [place] [id number] [place] [address] 66021- 8461 Jul, Vaginal discharge N89.8 and BMI 40.0-44.9, adult Z68.41 [place] [address] [place] [address] [id number] [place] [address] 54306- 7241 Jul, Psychosis, unspecified psychosis type F29 ; Methamphetamine dependence, 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 ; Unspecified mood [affective] disorder F39 and Other detention (current) drug therapy Z79.899 [place] [address] [place] [address] [id number] [place] [address] 26732- 17[address] 06 Jul, 2018 [place] [address] [place] [address] [id number] [place] [address] 32101- 8538 05 Jul, 2018 Uncontrolled hypertension I10 ; Cardiomyopathy, unspecified type I42.9 ; Insomnia, unspecified type G47.00 and BMI 40.0-44.9, adult Z68.41 [place] [address] [place] [address] 58696- 3726 Jun, Psychosis, unspecified psychosis type F29 ; Methamphetamine dependence, 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 and Unspecified mood [affective] disorder F39 [place] [address] [place] [address] 53765- 2967 March, Psychosis, unspecified psychosis type F29 ; Methamphetamine dependence, 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 and Unspecified mood [affective] disorder F39 [place] [address] [place] [address] 29546- 6871 Jan, Adjustment disorder with other symptom F43.29 [facility] [id number] [place] [phone] March, Dental examination Z01.20 IMMUNIZATIONS Vaccine Route Administration Date Status FLULAVAL QUAD 0.5ML (6 MO & UP) 2018 IM Intramuscular Sep 07, 2018 Administered SOCIAL HISTORY Never Assessed REASON FOR VISIT Speech concerns-twooden,RMA, pt complaining not being able to breath when walking or sitting down, aslo having chest pain all the time PLAN OF CARE Activity Details Follow Up 3 Weeks Reason: VITAL SIGNS Height 5 ft 3 in in 2018-09-07 Weight 236.9 lbs 2018-09-07 Temperature 98.4 degrees Fahrenheit 2018-09-07 Heart Rate 90 bpm 2018-09-07 Respiratory Rate 20 2018-09-07 Oximetry on room air:98 % 2018-09-07 BMI 41.96 kg/m2 2018-09-07 Blood pressure systolic 130 mmHg 2018-09-07 Blood pressure diastolic 92 mmHg 2018-09-07 MEDICATIONS Medication Instructions Dosage Frequency Start Date End Date Duration Status Warfarin Sodium 5 MG Orally Once a day 1 tablets 24h Active Vraylar 3 MG Orally Once a day 1 capsule 24h Jul, 30 day(s) Active Warfarin Sodium 1 MG Orally Tuesday, Tuesday, Tuesday, Tuesday and Tuesday 1/ 2 tablet Jul, 30 day(s) Active Amlodipine & Diet Manage Prod 10 mg by oral route Once a day 1 tablet 24h Active Ropinirole HCl 0.5 MG Orally at bedtime 1 tablet Active Metoprolol Tartrate 50 mg Orally Twice a day 2 tablets 12h 30 days Active Clonidine HCl 0.2 MG Orally Twice a day PRN 1 tablet Active Entresto 24-26 MG Orally Twice a day 1 tablet 12h Active Biotin 5000 5 MG Orally Once a day 1 capsule 24h Active Amitriptyline HCl 25 MG Orally Once a day at bedtime 1 tablet Jul, 30 day(s) Active Famotidine 20 MG Orally Once a day 1 tablet at bedtime 24h Active Vitamin D-3 5000 UNIT Orally Once a day 1 tablet 24h Active RESULTS No Results PROCEDURES Procedure Date Ordered Result Body Site FLULAVAL QUAD 0.5ML (6 MO AND UP) 2017Sep 07, 2018 SINGLE IMMUNIZATION ADMIN Sep 07, 2018 INSTRUCTIONS MEDICATIONS ADMINISTERED No Known Medications MEDICAL (GENERAL) HISTORY Type Description Date Medical History Heart disease Medical History Defibrillator Medical History Kidney disease Medical History HTN Medical History HX OF [place] Surgical History CHOLECYSTECTOMY Hospitalization History FOR SURGERIES, HEART ATTACK
--- OUTSIDE RECORDS SUMMARY | 2018-11-01 15:28 | XMS REPORT ---
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 819544501 Problem Adjustment disorder with other symptom F43.29 Active 89851121 Problem Obesity, morbid, BMI 40.0-49.9 E66.01 Active 758720565 Problem Uncontrolled hypertension I10 Active 87560685 Problem Unspecified mood [affective] disorder F39 Active 49748802 Problem Psychosis, unspecified psychosis type F29 Active 15223669 Problem Cardiomyopathy, unspecified type I42.9 Active 03266006 Problem Insomnia, unspecified type G47.00 Active 078370839 ALLERGIES No Information ENCOUNTERS Encounter Location Date Diagnosis [place] [address] [place] [id number] [place] [address] 84561- [phone] Aug, [place] [address] [place] [id number] [place] [address] 20111- [address]39 Aug, Shortness of breath R06.02 ; Obesity, morbid, BMI 40.0-49.9 E66.01 ; Cardiomyopathy, unspecified type I42.9 ; Needs flu shot Z23 ; Encounter for immunization Z23 and BMI 40.0-44.9, adult Z68.41 [facility] [address] [place] [address] 97370- 5661 Aug, [facility] [id number] [place] [address] 41034- [phone] Jul, [facility] [id number] [place] [address] 86740- 7800 Jul, [place] [address] [place] [address] 54361- [phone] 13 Jul, 2018 Vaginal discharge N89.8 and BMI 40.0-44.9, adult Z68.41 [place] [address] [place] [id number] [place] [phone] Jul, Psychosis, unspecified psychosis type F29 ; Methamphetamine dependence, 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 ; Unspecified mood [affective] disorder F39 and Other assisted (current) drug therapy Z79.899 [place] [address] [place] [id number] [place] [address] 83734- [phone] 06 Jul, 2018 [place] [address] 082534- [address] 05 Jul, 2018 Uncontrolled hypertension I10 ; Cardiomyopathy, unspecified type I42.9 ; Insomnia, unspecified type G47.00 and BMI 40.0-44.9, adult Z68.41 [place] [address] [place] [id number] [place] [address] 66199- 7864 Jun, Psychosis, unspecified psychosis type F29 ; Methamphetamine dependence, 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
--- OUTSIDE RECORDS SUMMARY | 2018-11-01 15:30 | XMS REPORT | Continuity of Care Document ---
Author Author [facility] Organization [facility] Address Unknown Phone Unavailable Allergies Active Description Code Type Severity Reaction Onset Reported/Identified Relationship to Patient Clinical Status Yes bacl bacl Moderate N/A 03/21/2015 Yes baclofen [id number] Drug Allergy Unknown N/A 03/24/2015 Yes phenazopyridine [id number] Drug Allergy Unknown N/A 03/24/2015 Yes JIA Inhibitors [id number] Drug Allergy Severe N/A 07/24/2015 Yes ARB-Angiotensin Receptor Antagonist [id number] Drug Allergy Severe N/A Medications There is [...] MAZARIEGOS, LISSET E Ot 425.4 03/27/2015 KAUR MAZAREIGOS, LISSET E Ot 429.89 03/27/2015 KAUR MAZARIEGOS, [...] TONG MAZARIEGOS, FELECIA Diaz Ot 401.9 03/03/2016 TONG MAZARIEGOS, FELECIA Diaz Ot 425.4 03/03/2016 TONG [...] BERMAN Ot I50.1 LEFT VENTRICULAR FAILURE 01/12/2018 NERISSA LAURA BLANCO K Ot R09.2 RESPIRATORY ARREST 01/13/2018 NERISSA LAURA BLANCO K Ot G93.1 ANOXIC BRAIN DAMAGE, NOT ELSEWHERE CLASS 01/13/2018 NERISSA LAURA BLANCO K Ot I11.0 HYPERTENSIVE HEART DISEASE WITH HEART FA 01/13/2018 NERISSA LAURA BLANCO K Ot I50.1 LEFT VENTRICULAR FAILURE, UNSPECIFIED 01/13/2018 NERISSA LAURA BLANCO K Ot I51.3 INTRACARDIAC THROMBOSIS, NOT ELSEWHERE C 01/25/2018 NERISSA LAURA BLANCO K Ot G93.1 ANOXIC BRAIN DAMAGE, NOT ELSEWHERE CLASS 01/25/2018 NERISSA LAURA BLANCO K Ot I11.0 HYPERTENSIVE HEART DISEASE WITH HEART FA 01/25/2018 NERISSA LAURA BLANCO K Ot I50.1 LEFT VENTRICULAR FAILURE, UNSPECIFIED 01/25/2018 NERISSA LAURA BLANCO K Ot I51.3 INTRACARDIAC THROMBOSIS, NOT ELSEWHERE C 08/05/2018 NIK CELIS Ot F31.9 BIPOLAR DISORDER, UNSPECIFIED 08/05/2018 NIK CELIS Ot F41.9 ANXIETY DISORDER, UNSPECIFIED 08/05/2018 NIK CELIS Ot G89.29 OTHER CHRONIC PAIN 08/05/2018 NIK CELIS Ot I42.9 CARDIOMYOPATHY, UNSPECIFIED 08/05/2018 NIK CELIS Ot K21.9 GASTRO-ESOPHAGEAL REFLUX DISEASE WITHOUT 08/05/2018 NIK CELIS Ot M25.571 PAIN IN RIGHT ANKLE AND JOINTS OF RIGHT 08/05/2018 NIK CELIS Ot M54.5 LOW BACK PAIN 08/05/2018 NIK CELIS Ot T20.45XA CORROSION OF UNSPECIFIED DEGREE OF SCALP 08/05/2018 NIK CELIS Ot T32.0 CORROSIONS INVOLVING LESS THAN 10% OF DEREK 08/05/2018 NIK CELIS Ot 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, UNDETERM 08/05/2018 NIK CELIS Ot W19.XXXA UNSPECIFIED FALL, INITIAL ENCOUNTER 08/05/2018 NIK CELIS Ot Z79.01 DIRECTOR HAIR (CURRENT) USE OF ANTICOAGULANT 08/05/2018 PEDRO CELISIS Ot Z79.51 SKILLED NURSING (CURRENT) USE OF INHALED STERO 08/05/2018 PEDRO CELISIS Ot Z87.01 PERSONAL HISTORY OF PNEUMONIA (RECURRENT 08/05/2018 PEDRO CELISIS Ot Z87.891 PERSONAL HISTORY OF NICOTINE DEPENDENCE 08/05/2018 PEDRO CELISIS Ot Z88.8 ALLERGY STATUS TO OTH DRUG/MEDS/BIOL SUB 08/05/2018 NIK CELIS Ot Z93.0 TRACHEOSTOMY STATUS 08/05/2018 PEDRO CELISIS Ot Z95.810 PRESENCE OF AUTOMATIC (IMPLANTABLE) CARD 08/05/2018 PEDRO CELISIS Ot Z98.890 OTHER SPECIFIED POSTPROCEDURAL STATES 08/08/2018 PEDRO CELISIS Ot F31.9 BIPOLAR DISORDER, UNSPECIFIED 08/08/2018 PEDRO CELISIS Ot F41.9 ANXIETY DISORDER, UNSPECIFIED 08/08/2018 PEDRO CELISIS Ot G89.29 OTHER CHRONIC PAIN 08/08/2018 PEDRO CELISIS Ot I42.9 CARDIOMYOPATHY, UNSPECIFIED 08/08/2018 LALITA NIK Ot K21.9 GASTRO-ESOPHAGEAL REFLUX DISEASE WITHOUT 08/08/2018 PEDRO CELISIS Ot M25.571 PAIN IN RIGHT ANKLE AND JOINTS OF RIGHT 08/08/2018 PEDRO CELISIS Ot M54.5 LOW BACK PAIN 08/08/2018 PEDRO CELISIS Ot T20.45XA CORROSION OF UNSPECIFIED DEGREE OF SCALP 08/08/2018 PEDRO CELISIS Ot T32.0 CORROSIONS INVOLVING LESS THAN 10% OF DEREK 08/08/2018 PEDRO CELISIS Ot 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, UNDETERM 08/08/2018 LALITA NIK Ot W19.XXXA UNSPECIFIED FALL, INITIAL ENCOUNTER 08/08/2018 NIK CELIS Ot Z79.01 SKILLED NURSING (CURRENT) USE OF ANTICOAGULANT 08/08/2018 PEDRO CELISIS Ot Z79.51 DIRECTOR HAIR (CURRENT) USE OF INHALED STERO 08/08/2018 PEDRO CELISIS Ot Z87.01 PERSONAL HISTORY OF PNEUMONIA (RECURRENT 08/08/2018 PEDRO CELISIS Ot Z87.891 PERSONAL HISTORY OF NICOTINE DEPENDENCE 08/08/2018 PEDRO CELISIS Ot Z88.8 ALLERGY STATUS TO OTH DRUG/MEDS/BIOL SUB 08/08/2018 NIK CELIS Ot Z93.0 TRACHEOSTOMY STATUS 08/08/2018 NIK CELIS Ot Z95.810 PRESENCE OF AUTOMATIC (IMPLANTABLE) CARD 08/08/2018 NIK CELIS Ot Z98.890 OTHER SPECIFIED POSTPROCEDURAL STATES 10/24/2018 FELECIA FORTUNE MD 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, AORTIC 10/24/2018 FELECIA FORTUNE MD Ot I10 ESSENTIAL (PRIMARY) HYPERTENSION 10/24/2018 FELECIA FORTUNE MD, Ot I25.2 OLD MYOCARDIAL INFARCTION 10/24/2018 FELECIA FORTUNE MD Ot I42.9 CARDIOMYOPATHY, UNSPECIFIED 10/24/2018 FELECIA FORTUNE MD Ot R00.1 BRADYCARDIA, UNSPECIFIED 10/24/2018 FELECIA FORTUNE MD, Ot Z79.01 DIRECTOR HAIR (CURRENT) USE OF ANTICOAGULANT Procedures Code Description Performed By Performed On 37.22 LEFT HEART CARDIAC CATH 03/28/2015 88.56 CORONAR ARTERIOGR-2 CATH 03/28/2015 Results Test Result Range Complete urinalysis with reflex to culture - 08/05/18 18:05 Urine color determination YELLOW NRG Urine clarity determination SLIGHTLY CLOUDY NRG Urine pH measurement by test strip 5 5-9 Specific gravity of urine by test strip 1.020 1.016- 1.022 Urine protein assay by test strip, semi-quantitative 4+ NEGATIVE Urine glucose detection by automated test strip NEGATIVE NEGATIVE Erythrocytes detection in urine sediment by light microscopy 2+ NEGATIVE Urine ketones detection by automated test strip NEGATIVE NEGATIVE Urine nitrite detection by test strip NEGATIVE NEGATIVE Urine total bilirubin detection by test strip NEGATIVE NEGATIVE Urine urobilinogen measurement by automated test strip (mass/volume) NORMAL NORMAL Urine leukocyte esterase detection by dipstick NEGATIVE NEGATIVE Automated urine sediment erythrocyte count by microscopy (number/high power field) NONE NRG Automated urine sediment leukocyte count by microscopy (number/high power field ) NONE NRG Bacteria detection in urine sediment by light microscopy NEGATIVE NRG Squamous epithelial cells detection in urine sediment by light microscopy 10-25 NRG Crystals detection in urine sediment by light microscopy NONE NRG Casts detection in urine sediment by light microscopy NONE NRG Mucus detection in urine sediment by light microscopy NEGATIVE NRG Complete urinalysis with reflex to culture NO NRG GC/CHLAMYDIA (SWAB OR URINE)-RAPID - 08/10/18 13:06 CHLAMYDIA TRACHOMATIS RNA, TMA NOT DETECTED NOT DETECTED NEISSERIA GONORRHOEAE RNA, TMA NOT DETECTED NOT DETECTED COMMENT NRG BMP - 09/20/18 10:01 GLUCOSE 90 mg/dL 65-99 UREA NITROGEN (BUN) 13 mg/dL 7-25 CREATININE 1.63 mg/dL 0.50-1.10 eGFR NON-AFR. ARGENTINE 42 mL/min/1.73m2 > OR=60 eGFR 48 mL/min/1.73m2 > OR=60 BUN/CREATININE RATIO 8 (calc) 6-22 SODIUM 140 mmol/L 135-146 POTASSIUM 3.8 mmol/L 3.5-5.3 CHLORIDE 104 mmol/L 98-110 CARBON DIOXIDE 30 mmol/L 20-32 CALCIUM 9.1 mg/dL 8.6-10.2 Encounters ACCT No. Visit Date/Time Discharge Status Pt. Type Provider Facility Loc./Unit Complaint [id number] 10/23/2018 12:07:00 10/23/2018 23:59:59 CLS Outpatient FELECIA FORTUNE MD [facility] CARD CARDIOMYOPATHY,HTN,MR, SINUS BRADYCARDIA [id number] 08/05/2018 17:39:00 08/05/2018 19:33:00 DIS Emergency NIK CELIS [facility] ER HEAD HURTING,RT ANKLE SWOLLEN [id number] 01/12/2018 10:17:00 01/12/2018 23:59:59 CLS Outpatient BLANCO BERMAN [facility] CARD G93.1 ANOXIC ENCEPHALOPATHY [id number] 10/06/2017 12:00:00 10/06/2017 23:59:59 CLS Preadmit FELECIA FORTUNE MD [facility] CARD CARDIOMYOPATHY I42.9 [id number] 03/03/2016 12:12:00 03/03/2016 23:59:59 CLS Outpatient BLANCO BERMAN [facility] CARD ENCOPELPATH [id number] 02/15/2016 15:59:00 02/15/2016 18:46:00 DIS Emergency OSMAN GONSALES MD [facility] ER DEFIBRILLATOR ISSUES [id number] 12/01/2015 18:08:00 12/01/2015 21:10:00 DIS Emergency RODRIGO HILL DO [facility] ER IRREGULAR HEART RATE [id number] 08/23/2015 20:00:00 08/24/2015 01:08:00 DIS Emergency MARIBEL MAZARIEGOS, RALPH Mcelroy [facility] ER DEFIBRILLATOR BEEPING [id number] 08/08/2015 22:55:00 08/09/2015 00:13:00 DIS Emergency ORESTES VELASCO MD [facility] ER L ARM/RIB CAGE PAIN [id number] 07/27/2015 18:45:00 07/29/2015 12:40:00 DIS Inpatient APRIL DOMINIQUE DO [facility] CSD L PNEUMOTHORAX L CHEST WALL PX ELEV LFT'S [id number] 07/23/2015 06:38:00 07/24/2015 11:45:00 DIS Outpatient FELECIA FORTUNE MD [facility] CATH CGF,CARDIOMYOPATHY [id number] 07/15/2015 11:28:00 07/15/2015 23:59:59 CLS Outpatient FELECIA FORTUNE MD [facility] LAB CHF,HTN,TR [id number] 07/11/2015 10:45:00 07/11/2015 23:59:59 CLS Outpatient BLANCO BERMAN [facility] CARD CHF, CARDINUREOPATHY HTN [id number] 03/26/2015 13:23:00 03/31/2015 18:00:00 DIS Inpatient APRIL DOMINIQUE DO [facility] CSD UNK [id number] 03/21/2015 12:45:00 03/26/2015 12:46:00 DIS Inpatient LISSET DIETRICH MD [facility] IRF DEBILITY,ENCEPHALOPATHY [id number] 08/23/2015 20:00:34 ACT Document Registration [id number] 04/14/2018 11:00:00 04/14/2018 23:59:59 CLS Outpatient ANAID [facility]JAIRAI [facility] [place] [id number] 09/20/2018 09:20:00 Document Registration [id number] 08/10/2018 11:40:00 Document Registration
[2018-11-01] MEDS ORDERED: cloNIDine 0.1 MG (CATAPRES) TAB PO ONE ×2 (16:15→18:15)
--- NOTE | 2018-11-01 16:26 | Diagnostic Imaging Report ---
Patient History: Headache, hypertension. Technique: Two views of the chest Comparison: 02/15/2016 FINDINGS: The lung volumes are normal. No focal consolidation is seen. No large pleural effusion or pneumothorax is seen. The cardiomediastinal silhouette is normal in size and contour. No acute osseous abnormality is seen. The left-sided AICD appears to be in stable position. IMPRESSION: No acute pulmonary abnormality seen. Dictated by: Dictated on workstation # [id number]
[2018-11-01 16:39] LABS: BASOPHILS % (AUTO) 0 % (0-10); EOSINOPHILS # (AUTO) 0.2 10^3/uL (0.0-0.3); EOSINOPHILS % (AUTO) 2 % (0-10); HEMATOCRIT 44 % (35-52); HEMOGLOBIN 14.6 G/DL (11.5-16.0); LYMPHOCYTES % (AUTO) 45 % (12-44); MEAN CORPUSCULAR HEMOGLOBIN 29 PG (25-34); MEAN CORPUSCULAR HGB CONC 33 G/DL (32-36); MEAN CORPUSCULAR VOLUME 89 FL (80-99); MEAN PLATELET VOLUME 8.5 FL (7.4-10.4); MONOCYTES # (AUTO) 0.7 X 10^3 (0.0-1.0); MONOCYTES % (AUTO) 8 % (0-12); NEUTROPHILS % (AUTO) 45 % (42-75); PLATELET COUNT 394 10^3/uL (130-400); RED CELL DISTRIBUTION WIDTH 15.4 % (10.0-14.5); WHITE BLOOD COUNT 8.9 10^3/uL (4.3-11.0)
[2018-11-01 16:59] LABS: INR 1.1 (0.8-1.4); PROTHROMBIN TIME PATIENT 13.8 SEC (12.2-14.7)
[2018-11-01 17:05] LABS: ALANINE AMINOTRANSFERASE 26 U/L (0-55); ALKALINE PHOSPHATASE 73 U/L (40-136); BILIRUBIN,TOTAL 0.2 MG/DL (0.1-1.0); BUN/CREATININE RATIO 13; CALCIUM 9.5 MG/DL (8.5-10.1); CARBON DIOXIDE 26 MMOL/L (21-32); CHLORIDE 105 MMOL/L (98-107); CREATININE SERUM 1.64 MG/DL (0.60-1.30); GFR ESTIMATED 45; GLUCOSE 62 MG/DL (70-105); MAGNESIUM 2.2 MG/DL (1.8-2.4); SODIUM 140 MMOL/L (135-145); TOTAL PROTEIN 7.3 GM/DL (6.4-8.2)
[2018-11-01 17:11] LABS: MYOGLOBIN SERUM 110.5 NG/ML (10.0-92.0)
[2018-11-01] MEDS ORDERED: fentaNYL INJECTION 100 MCG/2 ML AMP IVP ONE (17:15)
--- NOTE | 2018-11-01 18:13 | ED Cardiac General ---
History of Present Illness General Chief Complaint: Cardiac/General Problems Stated Complaint: SOB;HEAD PAIN;HIGH BP Nursing Triage Note: PT AMBULATES TO ROOM 9 PT CO OF [place] AND STATES THAT HER B/P IS ELEVATED. PT STATES HAS CLONIDINE TO TAKE PRN BUT IS IN FT [place] AT HER HOME. STATES HAS TAKEN 4 TYLENOL W NO RELIEF OF [place]. WAS SENT TO ED BY [facility]. PT GOES THERE FOR OUTPATIENT THERAPY Source: patient, old records Exam Limitations: no limitations History of Present Illness Date Seen by Provider: Nov 01, 2018 Time Seen by Provider: 14:58 Initial Comments This 28-year-old woman with known history of cardiomyopathy presents to the emergency room from the [facility] clinic for evaluation of symptoms including hypertension, headache, nausea, palpitations, and chest discomfort. Symptoms have all improved except for the headache at this time. She is still hypertensive. She takes clonidine as needed for hypertensive episodes but she did not have any clonidine with her. Apparently the case was discussed with Dr. Patterson by [facility] staff and she was referred to the emergency room. She is anticoagulated on warfarin and reports good compliance. Patient states she was exercising at the time of onset. She reports recent weight gain, especially in her breasts, which makes exercise difficulty and causes chest discomfort and shortness of breath. Allergies and Home Medications Allergies Coded Allergies: JIA Inhibitors (Verified Allergy, Severe, 07/24/15) ARB-Angiotensin Receptor Antagonist (Verified Allergy, Severe, 07/24/15) baclofen (Unverified Allergy, Unknown, 03/24/15) ON H&P phenazopyridine (Unverified Allergy, Unknown, 03/24/15) ON H&P Home Medications Albuterol Sulfate 8 Gm Hfa.aer.ad, 2 PUFF INH Q6H PRN for SHORTNESS OF BREATH, ( Reported) Amlodipine Besylate 10 Mg Tablet, 10 MG PO DAILY, (Reported) Apixaban 5 Mg Tablet, 5 MG PO BID Prescribed by: RALPH DELCID on 11/01/18 2976 Metoprolol Tartrate 50 Mg Tablet, 50 MG PO BID Prescribed by: FELECIA PATTERSON on 07/24/15 0894 Venlafaxine HCl 150 Mg Tab.er.24, 150 MG PO DAILY, (Reported) Warfarin Sodium 4 Mg Tablet, 8 MG PO HS, (Reported) TAKES 2 (4MG) TABLETS Patient Home Medication List Home Medication List Reviewed: Yes Review of Systems Review of Systems Constitutional: no symptoms reported EENTM: No Symptoms Reported Respiratory: See HPI Cardiovascular: See HPI Gastrointestinal: See HPI Genitourinary: No Symptoms Reported Musculoskeletal: no symptoms reported Skin: no symptoms reported Psychiatric/Neurological: See HPI Endocrine: No Symptoms Reported Hematologic/Lymphatic: See HPI Past Afgsxhr-Rtovge-Fgeglq Hx Past Med/Social Hx: Reviewed and Corrections made Patient Social History Alcohol Use: Denies Use Recreational Drug Use: No Smoking Status: Never a Smoker Recent Foreign Travel: No Contact w/Someone Who Travel: No Recent Infectious Disease Expo: No Recent Hopitalizations: No Immunizations Up To Date Tetanus Booster (TDap): Unknown Date of Pneumonia Vaccine: Mar 21, 2015 Date of Influenza Vaccine: Aug 19, 2015 Past Medical History Surgeries: Yes (DEFIBRILLATOR PLACED 07/23/15. PEG TUBE--REMOVED, uterine ablation) Abdominal, Section, Defibrillator, Gallbladder, Tracheostomy Respiratory: Yes (ARDS-CODED; PNEUMOTHORAX 06/2015) Pneumonia, Chronic Bronchitis Currently Using CPAP: No Currently Using BIPAP: No Cardiac: Yes (PULMONARY EDEMA/CARDIAC CAUSE-R/T ATRIAL THROMBUS; CARDIAC ARREST ;V-FIB ) Cardiomyopathy, Endocarditis, Valvular Heart Disease Neurological: Yes (encephalopathy-hypoxia, anoxic brain injury) Reproductive Disorders: No Sexually Transmitted Disease: No Genitourinary: Yes Renal Failure (chronic kidney disease) Gastrointestinal: Yes Gastroesophageal Reflux Musculoskeletal: Yes (GAIT DISTURBANCE) Endocrine: No Loss of Vision: Denies Hearing Impairment: Denies Cancer: No Psychosocial: Yes (per med record) Anxiety, Bipolar, Depression Integumentary: No Blood Disorders: Yes (ANEMIA) Family Medical History Patient reports no known family medical history. Physical Exam Vital Signs Vital Signs - First Documented 11/01/18 11/01/18 15:40 19:37 Temp 97.5 Pulse 82 Resp 16 B/P (MAP) 153/106 (122) Pulse Ox 98 O2 Delivery Room Air Capillary Refill : Less Than 3 Seconds Height, Weight, BMI Height: 5'3.00" Weight: 203lbs. 0.1oz. 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 Norm as Tested Skin: Normal Color, Warm/Dry Progress/Results/Core Measures Results/Orders Lab Results Laboratory Tests Test 11/01/18 16:25 11/01/18 18:22 Range/Units White Blood Count 8.9 4.3-11.0 10^3/uL Red Blood Count 5.00 4.35-5.85 10^6/uL Hemoglobin 14.6 11.5-16.0 G/DL Hematocrit 44 35-52 % Mean Corpuscular Volume 89 80-99 FL Mean Corpuscular Hemoglobin 29 25-34 PG Mean Corpuscular Hemoglobin Concent 33 32-36 G/DL Red Cell Distribution Width 15.4 H 10.0-14.5 % Platelet Count 394 130-400 10^3/uL Mean Platelet Volume 8.5 7.4-10.4 FL Neutrophils (%) (Auto) 45 42-75 % Lymphocytes (%) (Auto) 45 H 12-44 % Monocytes (%) (Auto) 8 0-12 % Eosinophils (%) (Auto) 2 0-10 % Basophils (%) (Auto) 0 0-10 % Neutrophils # (Auto) 4.0 1.8-7.8 X 10^3 Lymphocytes # (Auto) 4.0 1.0-4.0 X 10^3 Monocytes # (Auto) 0.7 0.0-1.0 X 10^3 Eosinophils # (Auto) 0.2 0.0-0.3 10^3/uL Basophils # (Auto) 0.0 0.0-0.1 10^3/uL Prothrombin Time 13.8 12.2-14.7 SEC INR Comment 1.1 0.8-1.4 Activated Partial Thromboplast Time 28 24-35 SEC D-Dimer 0.50 H 0.00-0.49 UG/ML Sodium Level 140 135-145 MMOL/L Potassium Level 4.0 3.6-5.0 MMOL/L Chloride Level 105 98-107 MMOL/L Carbon Dioxide Level 26 21-32 MMOL/L Anion Gap 9 5-14 MMOL/L Blood Urea Nitrogen 22 H 7-18 MG/DL Creatinine 1.64 H 0.60-1.30 MG/DL Estimat Glomerular Filtration Rate 45 BUN/Creatinine Ratio 13 Glucose Level 62 L 70-105 MG/DL Calcium Level 9.5 8.5-10.1 MG/DL Corrected Calcium 9.5 8.5-10.1 MG/DL Magnesium Level 2.2 1.8-2.4 MG/DL Total Bilirubin 0.2 0.1-1.0 MG/DL Aspartate Amino Transf (AST/SGOT) 19 5-34 U/L Alanine Aminotransferase (ALT/SGPT) 26 0-55 U/L Alkaline Phosphatase 73 40-136 U/L Myoglobin 110.5 H 10.0-92.0 NG/ML Troponin I < 0.30 <0.30 NG/ML Total Protein 7.3 6.4-8.2 GM/DL Albumin 4.0 3.2-4.5 GM/DL Urine Opiates Screen NEGATIVE NEGATIVE Urine Oxycodone Screen NEGATIVE NEGATIVE Urine Methadone Screen NEGATIVE NEGATIVE Urine Propoxyphene Screen NEGATIVE NEGATIVE Urine Barbiturates Screen NEGATIVE NEGATIVE Ur Tricyclic Antidepressants Screen POSITIVE H NEGATIVE Urine Phencyclidine Screen NEGATIVE NEGATIVE Urine Amphetamines Screen NEGATIVE NEGATIVE Urine Methamphetamines Screen NEGATIVE NEGATIVE Urine Benzodiazepines Screen NEGATIVE NEGATIVE Urine Cocaine Screen NEGATIVE NEGATIVE Urine Cannabinoids Screen NEGATIVE NEGATIVE My Orders Orders - RALPH LÓPEZ MD Cbc With Automated Diff (11/01/18 14:58) Magnesium (11/01/18 14:58) Ekg Tracing (11/01/18 14:58) Cardiac Profile 1 (11/01/18 14:58) Comprehensive Metabolic Panel (11/01/18 14:58) Myoglobin Serum (11/01/18 14:58) Protime With Inr (11/01/18 14:58) Partial Thromboplastin Time (11/01/18 14:58) O2 (11/01/18 14:58) Monitor-Rhythm Ecg Trace Only (11/01/18 14:58) Saline Lock/Iv-Start (11/01/18 14:58) Chest Pa/Lat (2 View) (11/01/18 14:58) Clonidine Tablet (Catapres Tablet) (11/01/18 16:15) Fentanyl Injection (Sublimaze Injection (11/01/18 17:15) Fibrin Degradation Products (11/01/18 17:13) Clonidine Tablet (Catapres Tablet) (11/01/18 18:15) Ct Head Wo (11/01/18 18:15) Urine Bedside (11/01/18 18:16) Drug Screen Stat (Urine) (11/01/18 18:16) Apixaban Tablet (Eliquis Tablet) (11/01/18 19:30) Apixaban Tablet (Eliquis Tablet) (11/01/18 19:30) Medications Given in ED Vital Signs/I&O 11/01/18 11/01/18 15:40 19:37 Temp 97.5 96.8 Pulse 82 98 Resp 16 16 B/P (MAP) 153/106 (122) 133/83 (100) Pulse Ox 98 99 O2 Delivery Room Air Blood Pressure Mean: 122 Progress Progress Note #1: Progress Note Patient's blood pressure is improving after 2 doses of clonidine orally. She also received fentanyl. Headache continued to gradually improve. Workup was unremarkable except d-dimer was minimally elevated just beyond the normal range at 0.50. 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 DVT or PE is likely given the minimally elevated d-dimer. However, I am a little concerned because patient's INR is subtherapeutic despite her assertion that she is strictly compliant with her warfarin. I would like to change her to a different medication that does not require the monitoring warfarin requires. I discussed the case with Dr. Potter. We are checking with the pharmacy to see if they will cover Eliquis or Xarelto. If not , Dr. Potter will help her get medications through [facility]. Patient was complaining of headache that is unusually intense for her. Therefore CT of the head was performed because she takes warfarin and is hypertensive. CT was unremarkable. Progress Note #2: Progress Note Headache continued to improve along with blood pressure. Eliquis was sent to [facility] pharmacy in [place]. I confirmed with the pharmacy that Eliquis was covered on her insurance. The first dose of Eliquis was given in the ER. Initial ECG Impression Date: Nov 01, 2018 Initial ECG Impression Time: 17:16 Initial ECG Rate: 86 Initial ECG Rhythm: Normal Sinus Initial ECG Intervals Minimally prolonged QT interval Comment Sinus rhythm with no ST elevation or depression. Minimal prolongation of QT interval. No major axis deviation. Diagnostic Imaging Diagonstic Imaging: CT Plain Films/CT/US/NM/MRI: head Comments CT head viewed by me and report reviewed. See report below: NAME: SAL PRIEST [facility] REC#: [id number] PT STATUS: REG ER : 1990 PHYSICIAN: RALPH LÓPEZ MD ADMIT DATE: 11/01/18/ER Draft Date of Exam:11/01/18 CT HEAD WO INDICATION: Severe headache with nausea and dizziness. Noncontrast brain CT is performed. There are no extra-axial fluid collections. No intracranial hemorrhage. No intracranial mass or mass effect. No midline shift. The ventricles are normal in size and position. There are no focal parenchymal abnormalities in the brain. Calvarial windows appear normal. IMPRESSION: Negative noncontrast brain CT. Dictated on workstation # [id number] Dict: 11/01/18 183 Trans: 11/01/18 1837 [id number] Interpreted by: GIL CANTU MD Diagonstic Imaging: Xray Plain Films/CT/US/NM/MRI: chest Comments Chest x-ray viewed by me and report reviewed. See report below: NAME: SAL PRIEST [facility] REC#: [id number] PT STATUS: REG ER : 1990 PHYSICIAN: RALPH LÓPEZ MD ADMIT DATE: 11/01/18/ER Signed Date of Exam: 11/01/18 CHEST PA/LAT (2 VIEW) Patient History: Headache, hypertension. Technique: Two views of the chest Comparison: 02/15/2016 FINDINGS: The lung volumes are normal. No focal consolidation is seen. No large pleural effusion or pneumothorax is seen. The cardiomediastinal silhouette is normal in size and contour. No acute osseous abnormality is seen. The left-sided AICD appears to be in stable position. IMPRESSION: No acute pulmonary abnormality seen. Dictated by: Dictated on workstation # [id number] Dict: 11/01/18 1622 Trans: 11/01/18 1726 Interpreted by: MALINA LOMELI MD Electronically signed by: MALINA LOMELI MD 11/01/18 1726 Departure Impression Primary Impression: Hypertensive urgency Additional Impressions: Acute headache Qualified Codes: R51 - Headache Chest discomfort Shortness of breath Tenderness of right lower extremity Subtherapeutic anticoagulation Disposition: HOME, SELF-CARE Condition: Improved Departure-Patient Inst. Referrals: WILLIE KOCH MD (PCP/Family) Primary Care Physician Add. Discharge Instructions: STOP WARFARIN (Coumadin) Use Eliquis in place of warfarin. Contact Dr. Pattersno's office tomorrow morning to schedule follow-up. Follow-up with [facility] as soon as possible. Call tomorrow morning to schedule an appointment. Return to care if symptoms worsen. All discharge instructions reviewed with patient and/or family. Voiced understanding. Scripts Apixaban (Eliquis) 5 Mg Tablet 5 MG PO BID, #60 TAB Prov: RALPH LÓPEZ MD 11/01/18 Copy Copies To 1: KEREN POTTER MD Copies To 2: FELECIA PATTERSON MD, JOSHUA T MD Nov 01, 2018 18:13
--- NOTE | 2018-11-01 18:38 | Diagnostic Imaging Report ---
INDICATION: Severe headache with nausea and dizziness. Noncontrast brain CT is performed. There are no extra-axial fluid collections. No intracranial hemorrhage. No intracranial mass or mass effect. No midline shift. The ventricles are normal in size and position. There are no focal parenchymal abnormalities in the brain. Calvarial windows appear normal. IMPRESSION: Negative noncontrast brain CT. Dictated by: Dictated on workstation # [id number]
[2018-11-01 18:42] LABS: BENZODIAZEPINES SCREEN URINE NEGATIVE (NEGATIVE); COCAINE SCREEN URINE NEGATIVE (NEGATIVE)
[2018-11-01 18:43] LABS: AMPHETAMINE SCREEN, URINE NEGATIVE (NEGATIVE); BARBITURATE SCREEN URINE NEGATIVE (NEGATIVE); CANNABINOID SCREEN, URINE NEGATIVE (NEGATIVE); METHADONE STAT NEGATIVE (NEGATIVE); METHAMPHETAMINE SCREEN URINE S NEGATIVE (NEGATIVE); OPIATE SCREEN URINE NEGATIVE (NEGATIVE); OXYCODONE STAT NEGATIVE (NEGATIVE); PROPOXYPHENE STAT NEGATIVE (NEGATIVE); TRICYCLIC ANTIDEPRESSANTS SCRE POSITIVE (NEGATIVE)
[2018-11-01] MEDS ORDERED: APIX5TAB PO (18:56)
[2018-11-01] MEDS ORDERED: APIXABAN 5 MG (ELIQUIS) TABLET PO ONE ×2 (19:30)
[2018-11-01 19:37] VITALS: BP 133/83
== END 2018-11-01 19:37 | disposition home or self-care (01) ==
LOC: EDUNIT# 14:50 → ER 14:51
DX: I16.0 Hypertensive urgency (principal); R51 Headache; R07.89 Other chest pain; R06.02 Shortness of breath; M79.661 Pain in right lower leg; I12.9 Hypertensive chronic kidney disease with stage 1 through stage 4 chronic kidney disease, or unspecified chronic kidney disease; N18.9 Chronic kidney disease, unspecified; K21.9 Gastro-esophageal reflux disease without esophagitis; F41.9 Anxiety disorder, unspecified; F31.9 Bipolar disorder, unspecified; I42.9 Cardiomyopathy, unspecified; I25.2 Old myocardial infarction; D64.9 Anemia, unspecified; Z87.820 Personal history of traumatic brain injury; Z79.01 Long term (current) use of anticoagulants; Z79.51 Long term (current) use of inhaled steroids; Z88.8 Allergy status to other drugs, medicaments and biological substances; Z88.6 Allergy status to analgesic agent; Z95.810 Presence of automatic (implantable) cardiac defibrillator; Z98.890 Other specified postprocedural states; Z93.0 Tracheostomy status; Z87.01 Personal history of pneumonia (recurrent); Z87.09 Personal history of other diseases of the respiratory system
CPT/HCPCS: 36415; 70450; 71046; 80053; 80306; 83735; 83874; 84484; 84703; 85025; 85379; 85610; 85730; 93005; 93041

== ENCOUNTER 2019-01-01 15:49 | Emergency (ER) | payer MEDICAID ==
[~2019-01-01] VITALS: Ht 160 cm; Wt 108.0 kg
[~2019-01-01 15:49] MED LIST changes: -AMLO10TA6 PO; +AMLO10TA7 PO; +APIX5TAB PO
--- OUTSIDE RECORDS SUMMARY | 2019-01-01 16:02 | XMS REPORT | Clinical Summary ---
Author Author [facility] Organization [facility] Address Unknown Phone Unavailable Care Team Providers Care Cfd Engineer Name Role Phone Austin Tobias MD Unavailable Rhona Vazquez MD Unavailable Angie Barros MD Unavailable Marilyn Chapa MD PCP Unavailable Source Comments Some departments are not documenting in the electronic medical record. If you do not see the information that you expected, contact Release of Information in the Health Information Management department at [phone] for further assistance in locating additional records.[facility] Allergies Comments Active Allergy Reactions Severity Noted Date Odilon Inhibitors ANAPHYLAXIS High 12/17/2015 Arb-Angiotensin Receptor ANAPHYLAXIS High 12/17/2015 Antagonist Phenazopyridine UNKNOWN Low 12/09/2015 Medications End Date Status Medication Sig Dispensed Refills Start Date Active suvorexant (BELSOMRA) 15 Take by 0 mg tab mouth at bedtime as needed. Active ferrous sulfate 325 mg Take 325 mg 0 (65 mg iron) tablet by mouth daily. Active DULoxetine DR (CYMBALTA) Take 60 mg by 0 60 mg capsule mouth twice daily. Active folic acid (FOLVITE) 1 mg Take 1 mg by 0 tablet mouth daily. Active warfarin (COUMADIN) 3 mg Take 3 mg by 0 tablet mouth daily. Pt takes 7 mg daily. Active warfarin (COUMADIN) 4 mg Take 4 mg by 0 tablet mouth daily. Active amLODIPine (NORVASC) 10 Take 10 mg by 0 mg tablet mouth daily. Active pantoprazole DR Take 40 mg by 0 (PROTONIX) 40 mg tablet mouth daily. Active diphenhydrAMINE Take 25 mg by 0 (BENADRYL) 25 mg capsule mouth every 6 hours as needed. Active metoprolol (LOPRESSOR) 50 Take 50 mg by 0 mg tablet mouth twice daily. Active ergocalciferol (VITAMIN Take 1 Cap by 24 Cap 0 D-2) 50,000 unit mouth twice 6 capsuleIndications: weekly. twice Vitamin D deficiency a week for 4 weeks then once a week for 12 weeks. Active topiramate (TOPAMAX) 200 Take 200 mg 0 mg tablet by mouth twice daily. Active acetaminophen (TYLENOL) Take 325 mg 0 325 mg tablet by mouth every 4 hours as needed for Pain. Active spironolactone Take 1 Tab by 90 Tab 3 (ALDACTONE) 25 mg mouth daily. 6 tabletIndications: Essential hypertension, Proteinuria Active Problems Not on file Social History Date Tobacco Use Types Packs/Day Years Used Never Smoker Sex Assigned at Date Recorded Not on file Industry Job Start Date Occupation Not on file Not on file Not on file Travel End Travel History Travel Start No recent travel history available. Last Filed Vital Signs Time Taken Vital Sign Reading 03/16/2016 2:22 PM CDT Blood Pressure 108/86 03/16/2016 2:22 PM CDT Pulse 74 03/16/2016 2:12 PM CDT Temperature 36.8 C (98.2 F) - Respiratory Rate - - Oxygen Saturation - - Inhaled Oxygen - Concentration 03/16/2016 2:12 PM CDT Weight 81.6 kg (180 lb) 03/16/2016 2:12 PM CDT Height 160 cm (5' 3") 03/16/2016 2:12 PM CDT Body Mass Index 31.89 Plan of Treatment Health Maintenance Due Date Last Done Comments PHYSICAL (COMPREHENSIVE) 1995 EXAM DTAP/TDAP VACCINES (1 - 2006 Tdap) INFLUENZA VACCINE 06/28/2018 CERVICAL CANCER SCREENING 2018 HIV SCREENING Completed 12/09/2015 Results Not on filefrom Last 3 Months Insurance Payer Benefit Subscriber ID Type Phone Address Plan / Group [facility] MEDICAID [facility] xxxxxxxxxxx Medicaid [employer] [place] (Home) [place] [address] Advance Directives Patient has advance care planning documents on file. For more information, please contact: [place] [phone] [address] [place] [address]
--- OUTSIDE RECORDS SUMMARY | 2019-01-01 16:02 | XMS REPORT ---
Author Author ADONIS GRAY 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 158372459 Problem Hypertension, unspecified type I10 Active 00123526 Problem Obesity, morbid, BMI 40.0-49.9 E66.01 Active 472386703 Problem Insomnia, unspecified type G47.00 Active 121899932 Problem Unspecified mood [affective] disorder F39 Active 63125158 Problem Uncontrolled hypertension I10 Active 32901457 Problem Cardiomyopathy, unspecified type I42.9 Active 04835250 ALLERGIES Substance Reaction Event Type Date Status Pyridium Unknown Drug Allergy Oct, Active Baclofen dizziness Drug Allergy Oct, Active Aspirin Unknown Drug Allergy Oct, Active ENCOUNTERS Encounter Location Date Diagnosis [facility] [address] [place] [address] 32389- 4644 Nov, [facility] [id number] [place] [address] 58490- 6711 Oct, Psychosis, unspecified psychosis type F29 ; Methamphetamine dependence, 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 and Unspecified mood [affective] disorder F39 [facility] [id number] [place] [address] 38720- 8049 Oct, Hypertension, unspecified type I10 [facility] [id number] [place] [address] 98494- 7761 Oct, [facility] [id number] [place] [address] 13343 -7268 Oct, Palpitations R00.2 and Hypertension, unspecified type I10 [place] [address] [address]01- 6267 Oct, Exercise counseling Z71.82 [place] [address] 46402- 7643 Sep, Psychosis, unspecified psychosis type F29 ; Methamphetamine dependence, 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 and Unspecified mood [affective] disorder F39 [place] [address] 61171- 3180 Sep, Exercise counseling Z71.82 [place] [address] 43636- 3164 Aug, [place] [address] 26151- 5220 Aug, Elevated serum creatinine R79.89 [place] [address] 91504- 9947 Aug, Cardiomyopathy, unspecified type I42.9 ; Uncontrolled hypertension I10 ; Obesity, morbid, BMI 40.0-49.9 E66.01 and BMI 40.0-44.9, adult Z68.41 [place] [id number] [place] [address] 82353- 4832 17 Aug, 2018 [place] [id number] [place] [address] 63730- 2709 Aug, Psychosis, unspecified psychosis type F29 ; Methamphetamine dependence, 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 and Unspecified mood [affective] disorder F39 [place] [id number] [place] [address] 31804- 2327 11 Aug, 2018 Shortness of breath R06.02 ; Obesity, morbid, BMI 40.0-49.9 E66.01 ; Cardiomyopathy, unspecified type I42.9 ; Needs flu shot Z23 ; Encounter for immunization Z23 and BMI 40.0-44.9, adult Z68.[address] [id number] [address] Aug, [facility] [id number] [place] [address] 52712- 2323 Jul, [facility] [id number] [place] [address] 98537- 3605 Jul, [place] [id number] [place] [address] 39231- 2405 Jul, Vaginal discharge N89.8 and BMI 40.0-44.9, adult Z68.41 [place] [id number] [place] [address] 68983- 9361 Jul, Psychosis, unspecified psychosis type F29 ; Methamphetamine dependence, 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 ; Unspecified mood [affective] disorder F39 and Other custodial (current) drug therapy Z79.899 [place] [id number] [place] [address] 03841- 4021 Jul, [facility] [id number] [place] [address] 06482- 1419 05 Jul, 2018 Uncontrolled hypertension I10 ; Cardiomyopathy, unspecified type I42.9 ; Insomnia, unspecified type G47.00 and BMI 40.0-44.9, adult Z68.41 [place] [address] [place] [address] 88754- 3739 Jun, Psychosis, unspecified psychosis type F29 ; Methamphetamine dependence, 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 and Unspecified mood [affective] disorder F39 [facility] [address] [place] [address] 60081- 2607 March, Psychosis, unspecified psychosis type F29 ; Methamphetamine dependence, 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 and Unspecified mood [affective] disorder F39 [facility] [address] [place] [address] 22317- 5214 Jan, Adjustment disorder with other symptom F43.29 [facility] [address] [place] [address] [id number] March, Dental examination Z01.20 IMMUNIZATIONS No Known Immunizations SOCIAL HISTORY Never Assessed REASON FOR VISIT heart palpitations; 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, heart started to flutter and pt felt nauseous - BHAVYA Ann PLAN OF CARE Activity Details Follow Up Go to an emergency department, you Reason: Future/Pending Procedure EKG, TRACING (IN-HOUSE) VITAL SIGNS Height 5 ft 3 in in 2018-11-01 Temperature 98.3 degrees Fahrenheit 2018-11-01 Heart Rate 96 bpm 2018-11-01 Respiratory Rate 20 2018-11-01 Blood pressure systolic 144 mmHg 2018-11-01 Blood pressure diastolic 110 mmHg 2018-11-01 MEDICATIONS Medication Instructions Dosage Frequency Start Date End Date Duration Status Biotin 5000 5 MG Orally Once a day 1 capsule 24h Active Ropinirole HCl 0.5 MG Orally at bedtime 1 tablet Active Amlodipine Besylate 10 MG Orally Once a day 1 tablet 24h Active Warfarin Sodium 1 MG Orally Tuesday, Tuesday, Tuesday, Tuesday and Tuesday 1/ 2 tablet Jul, 30 day(s) Active Clonidine HCl 0.2 MG Orally Twice a day PRN 1 tablet 30 days Active Warfarin Sodium 5 MG Orally Once a day 1 tablets 24h Active Famotidine 20 MG Orally Once a day 1 tablet at bedtime 24h Active Vraylar 6 MG Orally Once a day 1 capsule 24h Sep, 30 day(s) Active Metoprolol Tartrate 50 mg Orally Twice a day 2 tablets 12h 30 days Active Amitriptyline HCl 25 MG Orally Once a day at bedtime 1 tablet Jul, Active Entresto 49-51 MG Orally Twice a day 1 tablet 12h Nov, 30 days Active RESULTS No Results PROCEDURES Procedure Date Ordered Result Body Site ELECTROCARDIOGRAM, TRACING Nov 01, 2018 INSTRUCTIONS MEDICATIONS ADMINISTERED No Known Medications MEDICAL (GENERAL) HISTORY Type Description Date Medical History Heart disease Medical History Defibrillator Medical History Kidney disease Medical History HTN Medical History HX OF [place] Medical History Cardiomyopathy Surgical History CHOLECYSTECTOMY Hospitalization History FOR SURGERIES, HEART ATTACK
--- OUTSIDE RECORDS SUMMARY | 2019-01-01 16:02 | XMS REPORT ---
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 846648097 Problem Hypertension, unspecified type I10 Active 68861830 Problem Obesity, morbid, BMI 40.0-49.9 E66.01 Active 564876232 Problem Insomnia, unspecified type G47.00 Active 658619905 Problem Unspecified mood [affective] disorder F39 Active 25001060 Problem Uncontrolled hypertension I10 Active 89748068 Problem Cardiomyopathy, unspecified type I42.9 Active 48308190 ALLERGIES Substance Reaction Event Type Date Status Pyridium Unknown Drug Allergy Oct, Active Baclofen dizziness Drug Allergy Oct, Active Aspirin Unknown Drug Allergy Oct, Active ENCOUNTERS Encounter Location Date Diagnosis [facility] [place] [id number] [place] [address] 10673- 9096 Oct, [facility] [id number] [place] [address] 79569- 8870 Oct, Hypertension, unspecified type I10 [facility] [id number] [place] [address] 93198- 4860 Oct, [facility] [id number] [place] [address] 66618 -1649 Oct, Palpitations R00.2 and Hypertension, unspecified type I10 [facility] [id number] [place] [address] 36299- 1066 Oct, Exercise counseling Z71.82 [place] [id number] [place] [address] 14790- 1298 Sep, Psychosis, unspecified psychosis type F29 ; Methamphetamine dependence, 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 and Unspecified mood [affective] disorder F39 [place] [id number] [place] [address] 89138- 6955 Sep, Exercise counseling Z71.82 [place] [address] 12200- 8668 Aug, [place] [address] 00641- 0303 Aug, Elevated serum creatinine R79.89 [place] [address] 11703- 5627 Aug, Cardiomyopathy, unspecified type I42.9 ; Uncontrolled hypertension I10 ; Obesity, morbid, BMI 40.0-49.9 E66.01 and BMI 40.0-44.9, adult Z68.[address] 45763- 4699 Aug, [place] [address] 16710- 6102 Aug, Psychosis, unspecified psychosis type F29 ; Methamphetamine dependence, 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 and Unspecified mood [affective] disorder F39 [address] 22365- 6256 Aug, Shortness of breath R06.02 ; Obesity, morbid, BMI 40.0-49.9 E66.01 ; Cardiomyopathy, unspecified type I42.9 ; Needs flu shot Z23 ; Encounter for immunization Z23 and BMI 40.0-44.9, adult Z68.41 [place] [id number] [place] [address] 70466- 7689 Aug, [place] [address] 72984- 9635 Jul, [place] [address] [address] 2606 Jul, [place] [id number] [place] [address] 47689- 4617 Jul, Vaginal discharge N89.8 and BMI 40.0-44.9, adult Z68.41 [place] [id number] [place] [address] 57993- 2608 Jul, Psychosis, unspecified psychosis type F29 ; Methamphetamine dependence, 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 ; Unspecified mood [affective] disorder F39 and Other assistant terminal manager (current) drug therapy Z79.899 [place] [id number] [place] [address] 45786- 9074 Jul, [place] [id number] [place] [address] 93102- 0496 05 Jul, 2018 Uncontrolled hypertension I10 ; Cardiomyopathy, unspecified type I42.9 ; Insomnia, unspecified type G47.00 and BMI 40.0-44.9, adult Z68.41 [place] [address] [place] [address] 96983- 2847 Jun, Psychosis, unspecified psychosis type F29 ; Methamphetamine dependence, 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 and Unspecified mood [affective] disorder F39 [place] [address] [place] [address] 75807- 5974 March, Psychosis, unspecified psychosis type F29 ; Methamphetamine dependence, 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 and Unspecified mood [affective] disorder F39 [place] [address] [place] [address] 14148- 3398 Jan, Adjustment disorder with other symptom F43.29 [facility] [address] [place] [address] [id number] March, Dental examination Z01.20 IMMUNIZATIONS No Known Immunizations SOCIAL HISTORY Never Assessed REASON FOR VISIT ER F/U - 11/02/18 VC dx - blood pressure was high Hakeem Smalls PLAN OF CARE Activity Details Follow Up Regular appt Reason: VITAL SIGNS Height 5 ft 3 in in 2018-11-03 Weight 247.3 lbs 2018-11-03 Temperature 97.4 degrees Fahrenheit 2018-11-03 Heart Rate 110 bpm 2018-11-03 Respiratory Rate 20 2018-11-03 BMI 43.80 kg/m2 2018-11-03 Blood pressure systolic 128 mmHg 2018-11-03 Blood pressure diastolic 82 mmHg 2018-11-03 MEDICATIONS Medication Instructions Dosage Frequency Start Date End Date Duration Status Famotidine 20 MG Orally Once a day 1 tablet at bedtime 24h Active Amitriptyline HCl 25 MG Orally Once a day at bedtime 1 tablet Jul, Active Entresto 49-51 MG Orally Twice a day 1 tablet 12h Nov, 30 days Active Clonidine HCl 0.2 MG Orally Twice a day PRN 1 tablet 30 days Active Warfarin Sodium 5 MG Orally Once a day 1 tablets 24h Not-Taking Amlodipine Besylate 10 MG Orally Once a day 1 tablet 24h Active Ropinirole HCl 0.5 MG Orally at bedtime 1 tablet Active Vraylar 6 MG Orally Once a day 1 capsule 24h Sep, 30 day(s) Active Eliquis 2.5 MG as directed Active Biotin 5000 5 MG Orally Once a day 1 capsule 24h Active Metoprolol Tartrate 50 mg Orally Twice a day 2 tablets 12h 30 days Active Warfarin Sodium 1 MG Orally Tuesday, Tuesday, Tuesday, Tuesday and Wednesday 11/29 tablet Jul, 30 day(s) Not-Taking RESULTS No Results PROCEDURES No Known procedures INSTRUCTIONS MEDICATIONS ADMINISTERED No Known Medications MEDICAL (GENERAL) HISTORY Type Description Date Medical History Heart disease Medical History Defibrillator Medical History Kidney disease Medical History HTN Medical History HX OF [place] Medical History Cardiomyopathy Surgical History CHOLECYSTECTOMY Hospitalization History FOR SURGERIES, HEART ATTACK
--- OUTSIDE RECORDS SUMMARY | 2019-01-01 16:02 | XMS REPORT ---
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 036531628 Problem Hypertension, unspecified type I10 Active 50667905 Problem Obesity, morbid, BMI 40.0-49.9 E66.01 Active 407687094 Problem Insomnia, unspecified type G47.00 Active 578677018 Problem Unspecified mood [affective] disorder F39 Active 58994900 Problem Uncontrolled hypertension I10 Active 19344033 Problem Cardiomyopathy, unspecified type I42.9 Active 10740001 ALLERGIES Substance Reaction Event Type Date Status Pyridium Unknown Drug Allergy Oct, Active Baclofen dizziness Drug Allergy Oct, Active Aspirin Unknown Drug Allergy Oct, Active ENCOUNTERS Encounter Location Date Diagnosis [facility] [id number] [place] [address] 12827- 3792 Nov, [facility] [id number] [place] [address] 23954- 6109 Oct, Psychosis, unspecified psychosis type F29 ; Methamphetamine dependence, 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 and Unspecified mood [affective] disorder F39 [facility] [id number] [place] [address] 36974- 0902 Oct, Hypertension, unspecified type I10 [facility] [id number] [place] [address] 01949- 3975 Oct, [facility] [id number] [place] [address] 74880 -1348 Oct, Palpitations R00.2 and Hypertension, unspecified type I10 [place] [address] 951582- 8072 Oct, Exercise counseling Z71.82 [place] [address] 07659- 1683 Sep, Psychosis, unspecified psychosis type F29 ; Methamphetamine dependence, 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 and Unspecified mood [affective] disorder F39 [place] [address] 16398- 2577 Sep, Exercise counseling Z71.82 [place] [address] 26786- 2124 Aug, [place] [address] 41093- 1377 Aug, Elevated serum creatinine R79.89 [place] [address] 55270- 2664 Aug, Cardiomyopathy, unspecified type I42.9 ; Uncontrolled hypertension I10 ; Obesity, morbid, BMI 40.0-49.9 E66.01 and BMI 40.0-44.9, adult Z68.[address] [place] [id number] [place] [address] 27751- 3010 17 Aug, [address] [place] [id number] [place] [address] 09289- 2411 Aug, Psychosis, unspecified psychosis type F29 ; Methamphetamine dependence, 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 and Unspecified mood [affective] disorder F39 [place] [address] 38435- 4393 11 Aug, 2018 Shortness of breath R06.02 ; Obesity, morbid, BMI 40.0-49.9 E66.01 ; Cardiomyopathy, unspecified type I42.9 ; Needs flu shot Z23 ; Encounter for immunization Z23 and BMI 40.0-44.9, adult Z68.[address] [id number] [address] 4484 Aug, [facility] [id number] [place] [address] 80123- 0092 Jul, [facility] [id number] [place] [address] 94881- 3685 Jul, [place] [id number] [place] [address] 01761- 1410 Jul, Vaginal discharge N89.8 and BMI 40.0-44.9, adult Z68.41 [place] [id number] [place] [address] 79470- 7923 Jul, Psychosis, unspecified psychosis type F29 ; Methamphetamine dependence, 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 ; Unspecified mood [affective] disorder F39 and Other termite technician (current) drug therapy Z79.899 [place] [id number] [place] [address] 70843- 1825 Jul, [place] [id number] [place] [address] 76843- 1927 05 Jul, 2018 Uncontrolled hypertension I10 ; Cardiomyopathy, unspecified type I42.9 ; Insomnia, unspecified type G47.00 and BMI 40.0-44.9, adult Z68.41 [place] [address] [place] [address] 72616- 4421 Jun, Psychosis, unspecified psychosis type F29 ; Methamphetamine dependence, 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 and Unspecified mood [affective] disorder F39 [place] [address] [place] [address] 02693- 6753 March, Psychosis, unspecified psychosis type F29 ; Methamphetamine dependence, 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 and Unspecified mood [affective] disorder F39 [facility] [address] [place] [address] 29526- 5000 Jan, Adjustment disorder with other symptom F43.29 [facility] [address] [place] [address] [id number] March, Dental examination Z01.20 IMMUNIZATIONS No Known Immunizations SOCIAL HISTORY Never Assessed REASON FOR VISIT f/u [place] PLAN OF CARE Activity Details Follow Up 3 Weeks Reason: f/u VITAL SIGNS Height 5 ft 3 in in 2018-11-09 Weight 244.6 lbs 2018-11-09 Heart Rate 88 bpm 2018-11-09 Respiratory Rate 20 2018-11-09 BMI 43.32 kg/m2 2018-11-09 Blood pressure systolic 148 mmHg 2018-11-09 Blood pressure diastolic 110 mmHg 2018-11-09 MEDICATIONS Medication Instructions Dosage Frequency Start Date End Date Duration Status Clonidine HCl 0.2 MG Orally Twice a day PRN 1 tablet 30 days Active Amitriptyline HCl 25 MG Orally Once a day at bedtime 1 tablet Jul, Active Vraylar 6 MG Orally Once a day 1 capsule 24h Sep, Active Metoprolol Tartrate 50 mg Orally Twice a day 2 tablets 12h 30 days Active Famotidine 20 MG Orally Once a day 1 tablet at bedtime 24h Active Ropinirole HCl 0.5 MG Orally at bedtime 1 tablet Active Amlodipine Besylate 10 MG Orally Once a day 1 tablet 24h Active Warfarin Sodium 1 MG Orally Tuesday, Tuesday, Tuesday, Tuesday and Tuesday 1/ 2 tablet Jul, 30 day(s) Not-Taking Trileptal 300 MG Orally Twice a day 1 tablet 12h Oct, 30 day(s ) Active Eliquis 2.5 MG as directed Active Warfarin Sodium 5 MG Orally Once a day 1 tablets 24h Not-Taking Biotin 5000 5 MG Orally Once a day 1 capsule 24h Active Entresto 49-51 MG Orally Twice a day 1 tablet 12h Nov, 30 days Active RESULTS No Results PROCEDURES No Known procedures INSTRUCTIONS MEDICATIONS ADMINISTERED No Known Medications MEDICAL (GENERAL) HISTORY Type Description Date Medical History Heart disease Medical History Defibrillator Medical History Kidney disease Medical History HTN Medical History HX OF [place] Medical History Cardiomyopathy Surgical History CHOLECYSTECTOMY Hospitalization History FOR SURGERIES, HEART ATTACK
--- OUTSIDE RECORDS SUMMARY | 2019-01-01 16:02 | XMS REPORT ---
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 875582044 Problem Hypertension, unspecified type I10 Active 54034014 Problem Obesity, morbid, BMI 40.0-49.9 E66.01 Active 197700108 Problem Insomnia, unspecified type G47.00 Active 625478601 Problem Unspecified mood [affective] disorder F39 Active 78410373 Problem Uncontrolled hypertension I10 Active 16471889 Problem Cardiomyopathy, unspecified type I42.9 Active 29706180 ALLERGIES No Information ENCOUNTERS Encounter Location Date Diagnosis [facility] [address] [address] Oct, [facility] [address] [address] Oct, [facility] [address] [address] Oct, [facility] [id number] [place] [address] Oct, Palpitations R00.2 and Hypertension, unspecified type I10 [facility] [address] [address] Oct, Exercise counseling Z71.82 [facility] [address] [address] Sep, Psychosis, unspecified psychosis type F29 ; Methamphetamine dependence, 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 and Unspecified mood [affective] disorder F39 [facility] [id number] [place] [address] Sep, Exercise counseling Z71.82 [facility] [id number] [place] [address] Aug, [place] [address] [address] Aug, Elevated serum creatinine R79.89 [place] [address] [address] Aug, Cardiomyopathy, unspecified type I42.9 ; Uncontrolled hypertension I10 ; Obesity, morbid, BMI 40.0-49.9 E66.01 and BMI 40.0-44.9, adult Z68.41 [place] [address] [address] Aug, [place] [address] [address] Aug, Psychosis, unspecified psychosis type F29 ; Methamphetamine dependence, 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 and Unspecified mood [affective] disorder F39 [place] [id number] [place] [address] Aug, Shortness of breath R06.02 ; Obesity, morbid, BMI 40.0-49.9 E66.01 ; Cardiomyopathy, unspecified type I42.9 ; Needs flu shot Z23 ; Encounter for immunization Z23 and BMI 40.0-44.9, adult Z68.41 [place] [id number] [place] [address] Aug, [place] [address] [address] Jul, [place] [address] [address] Jul, [place] [address] [place] [address] 13 Jul, 2018 Vaginal discharge N89.8 and BMI 40.0-44.9, adult Z68.41 [place] [id number] [place] [address] 13 Jul, 2018 Psychosis, unspecified psychosis type F29 ; Methamphetamine dependence, 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 ; Unspecified mood [affective] disorder F39 and Other alf (current) drug therapy Z79.899 [place] [id number] [place] [address] 06 Jul, 2018 [place] [address] [address] 05 Jul, 2018 Uncontrolled hypertension I10 ; Cardiomyopathy, unspecified type I42.9 ; Insomnia, unspecified type G47.00 and BMI 40.0-44.9, adult Z68.41 [place] [id number] [place] [address] Jun, Psychosis, unspecified psychosis type F29 ; Methamphetamine dependence, 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 and Unspecified mood [affective] disorder F39 [place] [id number] [place] [address] March, Psychosis, unspecified psychosis type F29 ; Methamphetamine dependence, 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 and Unspecified mood [affective] disorder F39 [place] [id number] [place] [address] Jan, Adjustment disorder with other symptom F43.29 [facility] [id number] [place] [id number] March, Dental examination Z01.20 IMMUNIZATIONS No Known Immunizations SOCIAL HISTORY Never Assessed REASON FOR VISIT ER Notification/Follow up PLAN OF CARE VITAL SIGNS MEDICATIONS Unknown Medications RESULTS No Results PROCEDURES No Known procedures INSTRUCTIONS MEDICATIONS ADMINISTERED No Known Medications MEDICAL (GENERAL) HISTORY Type Description Date Medical History Heart disease Medical History Defibrillator Medical History Kidney disease Medical History HTN Medical History HX OF [place] Medical History Cardiomyopathy Surgical History CHOLECYSTECTOMY Hospitalization History FOR SURGERIES, HEART ATTACK
--- OUTSIDE RECORDS SUMMARY | 2019-01-01 16:03 | XMS REPORT ---
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 277315871 Problem Hypertension, unspecified type I10 Active 45270633 Problem Obesity, morbid, BMI 40.0-49.9 E66.01 Active 517316450 Problem Insomnia, unspecified type G47.00 Active 869576896 Problem Unspecified mood [affective] disorder F39 Active 71664369 Problem Uncontrolled hypertension I10 Active 44668908 Problem Cardiomyopathy, unspecified type I42.9 Active 20131937 ALLERGIES No Information ENCOUNTERS Encounter Location Date Diagnosis [facility] [address] [address] Oct, [facility] [address] [address] Oct, [facility] [address] [address] Oct, [facility] [id number] [place] [address] Oct, Palpitations R00.2 and Hypertension, unspecified type I10 [facility] [address] [address] Oct, Exercise counseling Z71.82 [facility] [address] [address] Sep, Psychosis, unspecified psychosis type F29 ; Methamphetamine dependence, 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 and Unspecified mood [affective] disorder F39 [facility] [id number] [place] [address] Sep, Exercise counseling Z71.82 [facility] [id number] [place] [address] Aug, [place] [address] [address] Aug, Elevated serum creatinine R79.89 [place] [address] [address] Aug, Cardiomyopathy, unspecified type I42.9 ; Uncontrolled hypertension I10 ; Obesity, morbid, BMI 40.0-49.9 E66.01 and BMI 40.0-44.9, adult Z68.41 [place] [address] [address] Aug, [place] [address] [address] Aug, Psychosis, unspecified psychosis type F29 ; Methamphetamine dependence, 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 and Unspecified mood [affective] disorder F39 [place] [id number] [place] [address] Aug, Shortness of breath R06.02 ; Obesity, morbid, BMI 40.0-49.9 E66.01 ; Cardiomyopathy, unspecified type I42.9 ; Needs flu shot Z23 ; Encounter for immunization Z23 and BMI 40.0-44.9, adult Z68.41 [place] [id number] [place] [address] Aug, [place] [address] [address] Jul, [place] [address] [address] Jul, [place] [address] [place] [address] 13 Jul, 2018 Vaginal discharge N89.8 and BMI 40.0-44.9, adult Z68.41 [place] [id number] [place] [address] 13 Jul, 2018 Psychosis, unspecified psychosis type F29 ; Methamphetamine dependence, 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 ; Unspecified mood [affective] disorder F39 and Other senior care (current) drug therapy Z79.899 [place] [id number] [place] [address] 06 Jul, 2018 [place] [address] [address] 05 Jul, 2018 Uncontrolled hypertension I10 ; Cardiomyopathy, unspecified type I42.9 ; Insomnia, unspecified type G47.00 and BMI 40.0-44.9, adult Z68.41 [place] [id number] [place] [address] Jun, Psychosis, unspecified psychosis type F29 ; Methamphetamine dependence, 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 and Unspecified mood [affective] disorder F39 [place] [id number] [place] [address] March, Psychosis, unspecified psychosis type F29 ; Methamphetamine dependence, 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 and Unspecified mood [affective] disorder F39 [place] [id number] [place] [address] Jan, Adjustment disorder with other symptom F43.29 [facility] [id number] [place] [phone] March, Dental examination Z01.20 IMMUNIZATIONS No Known Immunizations SOCIAL HISTORY Never Assessed REASON FOR VISIT weight loss PLAN OF CARE Activity Details Follow Up 1 Week Reason: VITAL SIGNS MEDICATIONS Unknown Medications RESULTS No Results PROCEDURES No Known procedures INSTRUCTIONS MEDICATIONS ADMINISTERED No Known Medications MEDICAL (GENERAL) HISTORY Type Description Date Medical History Heart disease Medical History Defibrillator Medical History Kidney disease Medical History HTN Medical History HX OF [place] Medical History Cardiomyopathy Surgical History CHOLECYSTECTOMY Hospitalization History FOR SURGERIES, HEART ATTACK
--- OUTSIDE RECORDS SUMMARY | 2019-01-01 16:05 | XMS REPORT | Continuity of Care Document ---
Author Author [facility] Organization [facility] Address Unknown Phone Unavailable Allergies Active Description Code Type Severity Reaction Onset Reported/Identified Relationship to Patient Clinical Status Yes bacl bacl Moderate N/A 03/21/2015 Yes baclofen [id number] Drug Allergy Unknown N/A 03/24/2015 Yes phenazopyridine [id number] Drug Allergy Unknown N/A 03/24/2015 Yes JIA Inhibitors [id number] Drug Allergy Severe N/A 07/24/2015 Yes ARB-Angiotensin Receptor Antagonist [id number] Drug Allergy Severe N/A Medications There is [...] MD E Ot V58.61 ANTICOAGULANTS,LT,CURRENT USE 03/26/2015 DOTTY DIETRICH MDIC E Ot 285.9 03/26/2015 KAUR MAZARIEGOS, LISSET [...] APRIL A Ot 428.22 07/29/2015 GELLENDER DO, ARPIL A Ot 512.89 07/29/2015 GELLENDER DO, APRIL [...] INITIAL ENCOUNTER 08/05/2018 NIK CELIS Ot Z79.01 HAND SPLITTER (CURRENT) USE OF ANTICOAGULANT 08/05/2018 PEDRO CELISIS Ot Z79.51 ASSISTED (CURRENT) USE OF INHALED STERO 08/05/2018 PEDRO [...] LESS THAN 10% OF DEREK 08/08/2018 PEDRO ECLISIS Ot 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, UNDETERM 08/08/2018 LALITA NIK Ot W19.XXXA UNSPECIFIED FALL, INITIAL ENCOUNTER 08/08/2018 NIK CELIS Ot Z79.01 ASSISTED (CURRENT) USE OF ANTICOAGULANT 08/08/2018 PEDRO CELISIS Ot Z79.51 HAND SPLITTER (CURRENT) USE OF INHALED STERO 08/08/2018 PEDRO CELISIS Ot Z87.01 PERSONAL HISTORY OF PNEUMONIA (RECURRENT 08/08/2018 PEDRO CELISIS Ot Z87.891 PERSONAL HISTORY OF NICOTINE DEPENDENCE 08/08/2018 PERDO CELISIS Ot Z88.8 ALLERGY STATUS TO OTH DRUG/MEDS/BIOL SUB 08/08/2018 LALITAPEDROIS Ot Z93.0 TRACHEOSTOMY STATUS 08/08/2018 NIK CELIS Ot Z95.810 PRESENCE OF AUTOMATIC (IMPLANTABLE) CARD 08/08/2018 NIK CELIS Ot Z98.890 OTHER SPECIFIED POSTPROCEDURAL STATES 10/24/2018 FELECIA FORTUNE MD 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, AORTIC 10/24/2018 FELECIA FORTUNE MD Ot I10 ESSENTIAL (PRIMARY) HYPERTENSION 10/24/2018 FELECIA FORTUNE MD, Ot I25.2 OLD MYOCARDIAL INFARCTION 10/24/2018 FELECIA FORTUNE MD, Ot I42.9 CARDIOMYOPATHY, UNSPECIFIED 10/24/2018 FELECIA FORTUNE MD Ot R00.1 BRADYCARDIA, UNSPECIFIED 10/24/2018 FELECIA FORTUNE MD, Ot Z79.01 HAND SPLITTER (CURRENT) USE OF ANTICOAGULANT 11/03/2018 RALPH LÓPEZ MD Ot D64.9 ANEMIA, UNSPECIFIED 11/03/2018 RALPH LÓPEZ MD Ot F31.9 BIPOLAR DISORDER, UNSPECIFIED 11/03/2018 RALPH LÓPEZ MD Ot F41.9 ANXIETY DISORDER, UNSPECIFIED 11/03/2018 RALPH LÓPEZ MD Ot I12.9 HYPERTENSIVE CHRONIC KIDNEY DISEASE W ST 11/03/2018 RALPH LÓPEZ MD Ot I16.0 HYPERTENSIVE URGENCY 11/03/2018 RALPH LÓPEZ MD Ot I25.2 OLD MYOCARDIAL INFARCTION 11/03/2018 RALPH LÓPEZ MD Ot I42.9 CARDIOMYOPATHY, UNSPECIFIED 11/03/2018 RALPH LÓPEZ MD Ot K21.9 GASTRO-ESOPHAGEAL REFLUX DISEASE WITHOUT 11/03/2018 RALPH LÓPEZ MD Ot M79.661 PAIN IN RIGHT LOWER LEG 11/03/2018 RALPH LÓPEZ MD Ot N18.9 CHRONIC KIDNEY DISEASE, UNSPECIFIED 11/03/2018 RALPH LÓPEZ MD Ot R06.02 SHORTNESS OF BREATH 11/03/2018 RALPH LÓPEZ MD Ot R07.89 OTHER CHEST PAIN 11/03/2018 RALPH LÓPEZ MD, Ot R51 HEADACHE 11/03/2018 RALPH LÓPEZ MD, Ot Z79.01 ASSISTED (CURRENT) USE OF ANTICOAGULANT 11/03/2018 RALPH LÓPEZ MD Ot Z79.51 HAND SPLITTER (CURRENT) USE OF INHALED STERO 11/03/2018 RALPH LÓPEZ MD, Ot Z87.01 PERSONAL HISTORY OF PNEUMONIA (RECURRENT 11/03/2018 RALPH LÓPEZ MD, Ot Z87.09 PERSONAL HISTORY OF OTHER DISEASES OF TH 11/03/2018 RALPH LÓPEZ MD, Ot Z87.820 PERSONAL HISTORY OF TRAUMATIC BRAIN INJU 11/03/2018 RALPH ÓLPEZ MD, Ot Z88.6 ALLERGY STATUS TO ANALGESIC AGENT STATUS 11/03/2018 RALPH LÓPEZ MD, Ot Z88.8 ALLERGY STATUS TO OTH DRUG/MEDS/BIOL SUB 11/03/2018 RALPH LÓPEZ MD Ot Z93.0 TRACHEOSTOMY STATUS 11/03/2018 RALPH LÓPEZ MD Ot Z95.810 PRESENCE OF AUTOMATIC (IMPLANTABLE) CARD 11/03/2018 RALPH LÓPEZ MD Ot Z98.890 OTHER SPECIFIED POSTPROCEDURAL STATES 11/09/2018 RALPH LÓPEZ MD, Ot D64.9 ANEMIA, UNSPECIFIED 11/09/2018 RALPH LÓPEZ MD Ot F31.9 BIPOLAR DISORDER, UNSPECIFIED 11/09/2018 RALPH LÓPEZ MD, Ot F41.9 ANXIETY DISORDER, UNSPECIFIED 11/09/2018 RALPH LÓPEZ MD, Ot I12.9 HYPERTENSIVE CHRONIC KIDNEY DISEASE W ST 11/09/2018 RALPH LÓPEZ MD Ot I16.0 HYPERTENSIVE URGENCY 11/09/2018 RALPH LÓPEZ MD Ot I25.2 OLD MYOCARDIAL INFARCTION 11/09/2018 RALPH LÓPEZ MD, Ot I42.9 CARDIOMYOPATHY, UNSPECIFIED 11/09/2018 RALPH LÓPEZ MD, Ot K21.9 GASTRO-ESOPHAGEAL REFLUX DISEASE WITHOUT 11/09/2018 RALPH LÓPEZ MD, Ot M79.661 PAIN IN RIGHT LOWER LEG 11/09/2018 RALPH LÓPEZ MD, Ot N18.9 CHRONIC KIDNEY DISEASE, UNSPECIFIED 11/09/2018 RALPH LÓPEZ MD, Ot R06.02 SHORTNESS OF BREATH 11/09/2018 RALPH LÓPEZ MD, Ot R07.89 OTHER CHEST PAIN 11/09/2018 RALPH LÓPEZ MD, Ot R51 HEADACHE 11/09/2018 RALPH LÓPEZ MD, Ot Z79.01 ASSISTED (CURRENT) USE OF ANTICOAGULANT 11/09/2018 RLAPH LÓPEZ MD, Ot Z79.51 HAND SPLITTER (CURRENT) USE OF INHALED STERO 11/09/2018 RALPH LÓPEZ MD, Ot Z87.01 PERSONAL HISTORY OF PNEUMONIA (RECURRENT 11/09/2018 RALPH LÓPEZ MD, Ot Z87.09 PERSONAL HISTORY OF OTHER DISEASES OF TH 11/09/2018 RALPH LÓPEZ MD, Ot Z87.820 PERSONAL HISTORY OF TRAUMATIC BRAIN INJU 11/09/2018 RALPH LÓPEZ MD, Ot Z88.6 ALLERGY STATUS TO ANALGESIC AGENT STATUS 11/09/2018 RALPH LÓPEZ MD, Ot Z88.8 ALLERGY STATUS TO OTH DRUG/MEDS/BIOL SUB 11/09/2018 RALPH LÓPEZ MD, Ot Z93.0 TRACHEOSTOMY STATUS 11/09/2018 RALPH LÓPEZ MD Ot Z95.810 PRESENCE OF AUTOMATIC (IMPLANTABLE) CARD 11/09/2018 RALPH LÓPEZ MD, Ot Z98.890 OTHER SPECIFIED POSTPROCEDURAL STATES Procedures Code Description Performed By Performed On [...] 7-25 CREATININE 1.63 mg/dL 0.50-1.10 eGFR NON-AFR. GUAMANIAN 42 mL/min/1.73m2 > OR=60 eGFR 48 mL/min/1.73m2 > OR=60 BUN/CREATININE RATIO 8 (calc) 6-22 SODIUM 140 mmol/L 135-146 POTASSIUM 3.8 mmol/L 3.5-5.3 CHLORIDE 104 mmol/L 98-110 CARBON DIOXIDE 30 mmol/L 20-32 CALCIUM 9.1 mg/dL 8.6-10.2 Complete blood count (CBC) with automated white blood cell (WBC) differential - 11/01/18 16:25 Blood leukocytes automated count (number/volume) 8.9 10*3/uL 4.3-11.0 Blood erythrocytes automated count (number/volume) 5.00 10*6/uL 4.35-5.85 Venous blood hemoglobin measurement (mass/volume) 14.6 g/dL 11.5-16.0 Blood hematocrit (volume fraction) 44 % 35-52 Automated erythrocyte mean corpuscular volume 89 [foz_us] 80-99 Automated erythrocyte mean corpuscular hemoglobin (mass per erythrocyte) 29 pg 25-34 Automated erythrocyte mean corpuscular hemoglobin concentration measurement ( mass/volume) 33 g/dL 32-36 Automated erythrocyte distribution width ratio 15.4 % 10.0-14.5 Automated blood platelet count (count/volume) 394 10*3/uL 130-400 Automated blood platelet mean volume measurement 8.5 [foz_us] 7.4-10.4 Automated blood neutrophils/100 leukocytes 45 % 42-75 Automated blood lymphocytes/100 leukocytes 45 % 12-44 Blood monocytes/100 leukocytes 8 % 0-12 Automated blood eosinophils/100 leukocytes 2 % 0-10 Automated blood basophils/100 leukocytes 0 % 0-10 Blood neutrophils automated count (number/volume) 4.0 10*3 1.8-7.8 Blood lymphocytes automated count (number/volume) 4.0 10*3 1.0-4.0 Blood monocytes automated count (number/volume) 0.7 10*3 0.0-1.0 Automated eosinophil count 0.2 10*3/uL 0.0-0.3 Automated blood basophil count (count/volume) 0.0 10*3/uL 0.0-0.1 PT panel in platelet poor plasma by coagulation assay - 11/01/18 16:25 Prothrombin time (PT) in platelet poor plasma by coagulation assay 13.8 s 12.2-14.7 INR in platelet poor plasma or blood by coagulation assay 1.1 0.8-1.4 Activated partial thromboplastin time (aPTT) in platelet poor plasma bycoagulation assay - 11/01/18 16:25 Activated partial thromboplastin time (aPTT) in platelet poor plasma bycoagulation assay 28 s 24-35 Comprehensive metabolic panel - 11/01/18 16:25 Serum or plasma sodium measurement (moles/volume) 140 mmol/L 135-145 Serum or plasma potassium measurement (moles/volume) 4.0 mmol/L 3.6-5.0 Serum or plasma chloride measurement (moles/volume) 105 mmol/L 98-107 Carbon dioxide 26 mmol/L 21-32 Serum or plasma anion gap determination (moles/volume) 9 mmol/L 5-14 Serum or plasma urea nitrogen measurement (mass/volume) 22 mg/dL 7-18 Serum or plasma creatinine measurement (mass/volume) 1.64 mg/dL 0.60-1.30 Serum or plasma urea nitrogen/creatinine mass ratio 13 NRG Serum or plasma creatinine measurement with calculation of estimated glomerular filtration rate 45 NRG Serum or plasma glucose measurement (mass/volume) 62 mg/dL 70-105 Serum or plasma calcium measurement (mass/volume) 9.5 mg/dL 8.5-10.1 Serum or plasma total bilirubin measurement (mass/volume) 0.2 mg/dL 0.1-1.0 Serum or plasma alkaline phosphatase measurement (enzymatic activity/volume) 73 U/L 40-136 Serum or plasma aspartate aminotransferase measurement (enzymatic activity/ volume) 19 U/L 5-34 Serum or plasma alanine aminotransferase measurement (enzymatic activity/volume ) 26 U/L 0-55 Serum or plasma protein measurement (mass/volume) 7.3 g/dL 6.4-8.2 Serum or plasma albumin measurement (mass/volume) 4.0 g/dL 3.2-4.5 CALCIUM CORRECTED 9.5 mg/dL 8.5-10.1 Magnesium - 11/01/18 16:25 Magnesium 2.2 mg/dL 1.8-2.4 Serum or plasma troponin i.cardiac measurement (mass/volume) - 11/01/18 16:25 Serum or plasma troponin i.cardiac measurement (mass/volume) < ng/ mL <0.30 Myoglobin, serum - 11/01/18 16:25 Myoglobin, serum 110.5 ng/mL 10.0-92.0 Fibrin D-dimer FEU measurement in platelet poor plasma (mass/volume) - 16:25 Fibrin D-dimer FEU measurement in platelet poor plasma (mass/volume) 0.50 ug/mL 0.00-0.49 Urine drug screening test - 11/01/18 18:22 Urine phencyclidine detection by screening method NEGATIVE NEGATIVE Urine benzodiazepines detection by screening method NEGATIVE NEGATIVE Urine cocaine detection NEGATIVE NEGATIVE Urine amphetamines detection by screening method NEGATIVE NEGATIVE Urine methamphetamine detection by screening method NEGATIVE NEGATIVE Urine cannabinoids detection by screening method NEGATIVE NEGATIVE Urine opiates detection by screening method NEGATIVE NEGATIVE Urine barbiturates detection NEGATIVE NEGATIVE Screening urine tricyclic antidepressants detection POSITIVE NEGATIVE Urine methadone detection by screening method NEGATIVE NEGATIVE Urine oxycodone detection NEGATIVE NEGATIVE Urine propoxyphene detection NEGATIVE NEGATIVE Encounters ACCT No. Visit Date/Time Discharge Status Pt. Type Provider Facility Loc./Unit Complaint [id number] 11/01/2018 14:51:00 11/01/2018 19:37:00 DIS Outpatient MARIBEL MAZARIEGOS, RALPH Mcelroy [facility] ER SOB;HEAD PAIN;HIGH BP [id number] 10/23/2018 12:07:00 10/23/2018 23:59:59 CLS Outpatient FELECIA FORTUNE MD [facility] CARD CARDIOMYOPATHY,HTN,MR, SINUS BRADYCARDIA [id number] 08/05/2018 17:39:00 08/05/2018 19:33:00 DIS Emergency NIK CELIS [facility] ER HEAD HURTING,RT ANKLE SWOLLEN [id number] 01/12/2018 10:17:00 01/12/2018 23:59:59 CLS Outpatient BLANCO BERMAN [facility] CARD G93.1 ANOXIC ENCEPHALOPATHY [id number] 10/06/2017 12:00:00 10/06/2017 23:59:59 CLS Preadmit FELECIA FORTUNE MD [facility] CARD CARDIOMYOPATHY I42.9 [id number] 03/03/2016 12:12:00 03/03/2016 23:59:59 CLS Outpatient BLANCO BERMAN [facility] CARD ENCOPELPATH [id number] 02/15/2016 15:59:00 02/15/2016 18:46:00 DIS Emergency OSMAN GONSALES MD [facility] ER DEFIBRILLATOR ISSUES [id number] 12/01/2015 18:08:00 12/01/2015 21:10:00 DIS Emergency RODRIGO HILL DO [facility] ER IRREGULAR HEART RATE [id number] 08/23/2015 20:00:00 08/24/2015 01:08:00 DIS Emergency RALPH LÓPEZ MD [facility] ER DEFIBRILLATOR BEEPING [id number] 08/08/2015 22:55:00 08/09/2015 00:13:00 DIS Emergency ORESTES VELASCO MD [facility] ER L ARM/RIB CAGE PAIN [id number] 07/27/2015 18:45:00 07/29/2015 12:40:00 DIS Inpatient GELLENDER DO, APRIL A [facility] CSD L PNEUMOTHORAX L CHEST WALL PX ELEV LFT'S [id number] 07/23/2015 06:38:00 07/24/2015 11:45:00 DIS Outpatient FELECIA FORTUNE MD [facility] CATH CGF,CARDIOMYOPATHY [id number] 07/15/2015 11:28:00 07/15/2015 23:59:59 CLS Outpatient FELECIA FORTUNE MD [facility] LAB CHF,HTN,TR [id number] 07/11/2015 10:45:00 07/11/2015 23:59:59 CLS Outpatient BLANCO BERMAN [facility] CARD CHF, CARDINUREOPATHY HTN [id number] 03/26/2015 13:23:00 03/31/2015 18:00:00 DIS Inpatient APRIL DOMINIQUE DO [facility] CSD UNK [id number] 03/21/2015 12:45:00 03/26/2015 12:46:00 DIS Inpatient LISSET DIETRICH MD [facility] IRF DEBILITY,ENCEPHALOPATHY [id number] 08/23/2015 20:00:34 ACT Document Registration [id number] 01/01/2019 14:00:00 ACT [facility] [id number] 09/20/2018 09:20:00 Document Registration [id number] 08/10/2018 11:40:00 Document Registration
[2019-01-01] MEDS ORDERED: ACETAMINOPHEN 500 MG TAB (TYLENOL) PO ONE (17:30)
[2019-01-01] MEDS ORDERED: PRED10TA22 PO (18:31)
[2019-01-01] MEDS ORDERED: AZIT250T PO (18:31)
--- NOTE | 2019-01-01 18:31 | ED Cough/URI ---
General Chief Complaint: Respiratory Problems Stated Complaint: SOB/COUGHING UP BLOOD Nursing Triage Note: PATIENT TO ER FT1 WITH COMPLAINT OF COUGH SINCE YESTERDAY WITH GREEN BROWN SPUTUM. SPUTUM IS BLOOD TINGED. PATIENT ALSO COMPLAINING OF BODY ACHES AND UPPER BACK PAIN WITH BREATHING. PATIENT IS BREATHING UNLABORED. Sepsis Screen: No Definite Risk Source: patient Exam Limitations: no limitations History of Present Illness Date Seen by Provider: Jan 01, 2019 Time Seen by Provider: 17:20 Initial Comments 28-year-old female who presents to the emergency room with complaints of a cough that started yesterday with green/brown/blood tinged sputum. She also reports complaints of body aches but denies fevers. Upper back pain with inspiration. No acute respiratory distress on arrival to the emergency room. Allergies and Home Medications Allergies Coded Allergies: JIA Inhibitors (Verified Allergy, Severe, 07/24/15) ARB-Angiotensin Receptor Antagonist (Verified Allergy, Severe, 07/24/15) baclofen (Unverified Allergy, Unknown, 03/24/15) ON H&P phenazopyridine (Unverified Allergy, Unknown, 03/24/15) ON H&P Home Medications Albuterol Sulfate 8 Gm Hfa.aer.ad, 2 PUFF INH Q6H PRN for SHORTNESS OF BREATH, ( Reported) Amlodipine Besylate 10 Mg Tablet, 10 MG PO DAILY, (Reported) Apixaban 5 Mg Tablet, 5 MG PO BID Prescribed by: RALPH DELCID on 11/01/18 1856 Metoprolol Tartrate 50 Mg Tablet, 50 MG PO BID Prescribed by: FELECIA FORTUNE on 07/24/15 0841 Venlafaxine HCl 150 Mg Tab.er.24, 150 MG PO DAILY, (Reported) Warfarin Sodium 4 Mg Tablet, 8 MG PO HS, (Reported) TAKES 2 (4MG) TABLETS Past Hmvbqwp-Ihhjcr-Dufcwt Hx Patient Social History Alcohol Use: Denies Use Recreational Drug Use: No Smoking Status: Former Smoker 2nd Hand Smoke Exposure: No Recent Foreign Travel: No Contact w/Someone Who Travel: No Recent Infectious Disease Expo: No Recent Hopitalizations: No Physical Abuse: No Sexual Abuse: No Mistreated: No Fear: No Immunizations Up To Date Tetanus Booster (TDap): Unknown PED Vaccines UTD: Yes Date of Pneumonia Vaccine: Mar 21, 2015 Date of Influenza Vaccine: Aug 19, 2015 Past Medical History Surgeries: Yes (DEFIBRILLATOR PLACED 07/23/15. PEG TUBE--REMOVED, uterine ablation) Abdominal, Section, Defibrillator, Gallbladder, Tracheostomy Respiratory: Yes (ARDS-CODED; PNEUMOTHORAX 06/2015) Pneumonia, Chronic Bronchitis Currently Using CPAP: No Currently Using BIPAP: No Cardiac: Yes (PULMONARY EDEMA/CARDIAC CAUSE-R/T ATRIAL THROMBUS; CARDIAC ARREST ;V-FIB ) Cardiomyopathy, Endocarditis, Valvular Heart Disease Neurological: Yes (encephalopathy-hypoxia, anoxic brain injury) Reproductive Disorders: No Sexually Transmitted Disease: No Genitourinary: Yes Renal Failure Gastrointestinal: Yes Gastroesophageal Reflux Musculoskeletal: Yes (GAIT DISTURBANCE) Endocrine: No HEENT: No Loss of Vision: Denies Hearing Impairment: Denies Cancer: No Psychosocial: Yes (per med record) Anxiety, Bipolar, Depression Integumentary: No Blood Disorders: Yes (ANEMIA) Family Medical History Patient reports no known family medical history. Physical Exam Vital Signs - First Documented 01/01/19 17:14 Temp 98.5 Pulse 93 Resp 16 B/P (MAP) 151/103 (119) Pulse Ox 98 O2 Delivery Room Air Capillary Refill : Less Than 3 Seconds Height: 5'3.00" Weight: 238lbs. 0.1oz. 107.664432gl; 28.34 BMI Method:Stated Progress/Results/Core Measures Suspected Sepsis Recent Fever Within 48 Hours: No Infection Criteria Present: None New/Unexplained Altered Menta: No Sepsis Screen: No Definite Risk SIRS Temperature:98.5 Pulse: 93 Respiratory Rate: 16 Blood Pressure 151 /103 Mean: 119 Results/Orders My Orders Orders - NIK CELIS Chest Pa/Lat (2 View) (01/01/19 17:25) Acetaminophen Tablet (Tylenol Tablet) (01/01/19 17:30) Medications Given in ED Current Medications Medications Dose Ordered Sig/Mikal Route Start Time Stop Time Status Last Admin Dose Admin Acetaminophen 1,000 mg ONCE ONCE PO 01/01/19 17:30 01/01/19 17:31 DC 01/01/19 17:42 1,000 MG Vital Signs/I&O 01/01/19 17:14 Temp 98.5 Pulse 93 Resp 16 B/P (MAP) 151/103 (119) Pulse Ox 98 O2 Delivery Room Air Capillary Refill : Less Than 3 Seconds Blood Pressure Mean: 119 Departure Impression Primary Impression: Bronchitis Disposition: HOME, SELF-CARE Condition: Stable/Unchanged Departure-Patient Inst. Decision time for Depature: 18:29 Referrals: NO,LOCAL PHYSICIAN (PCP/Family) Primary Care Physician Patient Instructions: Acute Bronchitis, Adult (DC) Add. Discharge Instructions: Take medications as directed. Follow-up with your primary care provider within 1 week for recheck. Return back to the emergency room for any worsening of shortness of breath, chest pain, fevers that are unable to be broken with Tylenol or ibuprofen, or any other concerns as needed. All discharge instructions reviewed with patient and/or family. Voiced understanding. Scripts Prednisone (Prednisone) 10 Mg Tab.ds.pk 10 MG PO UD, #1 PKG Prov: NIK CELIS 01/01/19 Azithromycin (Zithromax) 250 Mg Tablet 250 MG PO UD, #6 TAB TAKE 2 TABLETS TODAY, THEN TAKE 1 TABLET DAILY FOR 4 MORE DAYS Prov: NIK CELIS 01/01/19 NIK CELIS Jan 01, 2019 18:31
--- NOTE | 2019-01-01 18:49 | Diagnostic Imaging Report ---
PATIENT HISTORY: Hemoptysis. TECHNIQUE: Two views of the chest. COMPARISON: 11/01/2018. FINDINGS: The lung volumes are normal. No focal consolidation is seen. No large pleural effusion or pneumothorax is seen. The cardiomediastinal silhouette is normal in size and contour. No acute osseous abnormality is seen. The left-sided AICD appears stable. IMPRESSION: No acute pulmonary abnormality seen. Dictated by: Dictated on workstation # [id number]
[2019-01-01 19:25] VITALS: BP 148/113
== END 2019-01-01 19:25 | disposition home or self-care (01) ==
LOC: EDUNIT# 15:49 → ER 15:50
DX: J40 Bronchitis, not specified as acute or chronic (principal); I42.9 Cardiomyopathy, unspecified; K21.9 Gastro-esophageal reflux disease without esophagitis; F41.9 Anxiety disorder, unspecified; F31.9 Bipolar disorder, unspecified; Z87.448 Personal history of other diseases of urinary system; Z87.820 Personal history of traumatic brain injury; Z88.8 Allergy status to other drugs, medicaments and biological substances; Z79.51 Long term (current) use of inhaled steroids; Z79.01 Long term (current) use of anticoagulants; Z87.891 Personal history of nicotine dependence; Z98.890 Other specified postprocedural states; Z93.0 Tracheostomy status; Z95.810 Presence of automatic (implantable) cardiac defibrillator; Z87.01 Personal history of pneumonia (recurrent)
CPT/HCPCS: 71046

== ENCOUNTER 2019-01-06 01:15 | Emergency (ER) | payer MEDICAID ==
[~2019-01-06] VITALS: Ht 160 cm; Wt 99.8 kg
[~2019-01-06 01:15] MED LIST changes: +AZIT250T PO; +PRED10TA22 PO
--- OUTSIDE RECORDS SUMMARY | 2019-01-06 01:21 | XMS REPORT | Clinical Summary ---
Author Author [facility] Address Unknown Phone Unavailable Care Team Providers Care [employer] Warden Name Role Phone Austin Tobias MD Unavailable Rhona Vazquez MD Unavailable Angie Barros MD Unavailable Marilyn Chapa MD PCP Unavailable Source Comments Some departments are not documenting in the electronic medical record. If you do not see the information that you expected, contact Release of Information in the Health Information Management department at [phone] for further assistance in locating additional records.[facility] Allergies Comments Active Allergy Reactions Severity Noted [...] ID Type Phone Address Plan / Group [facility] MEDICA[facility] xxxxxxxxxxx Medicaid [place] (Home) [place] [address] Advance Directives Patient has advance care planning documents on file. For more information, please contact: [place] [address] [address] Mailstop [phone]
--- OUTSIDE RECORDS SUMMARY | 2019-01-06 01:24 | XMS REPORT | Continuity of Care Document ---
Author Author [facility] Organization [facility] Address Unknown Phone Unavailable Allergies Active Description Code Type Severity Reaction Onset Reported/Identified Relationship to Patient Clinical Status Yes bacl bacl Moderate N/A 03/21/2015 Yes baclofen [id number] Drug Allergy Unknown N/A 03/24/2015 Yes phenazopyridine [id number] Drug Allergy Unknown N/A 03/24/2015 Yes JIA Inhibitors [id number] Drug Allergy Severe N/A 07/24/2015 Yes ARB-Angiotensin Receptor Antagonist [id number] Drug Allergy Severe N/A Medications There is [...] 424.90 ENDOCARDITIS NOS 03/26/2015 LISSET DIETRICH MD Ot 425.4 PRIM CARDIOMYOPATHY NEC 03/26/2015 LISSET DIETRICH MD E Ot 428.0 CONGESTIVE HEART FAILURE NOS 03/26/2015 DOTTY DIETRICH MDIC E Ot 429.89 ILL-DEFINED HRT DIS NEC 03/26/2015 LISSET DIETRICH MD E Ot 530.81 ESOPHAGEAL REFLUX 03/26/2015 LISSET DIETRICH MD Ot 781.2 ABNORMALITY OF GAIT 03/26/2015 LISSET DIETRICH MD Ot 787.20 DYSPHAGIA, UNSPECIFIED 03/26/2015 LISSET DIETRICH MD E Ot V57.89 REHABILITATION PROC NEC 03/26/2015 LISSET DIETRICH MD Ot V58.61 ANTICOAGULANTS,LT,CURRENT USE 03/26/2015 LISSET DIETRICH [...] MAZARIEGOS, LISSET E Ot 429.89 04/12/2015 KAUR MAZRAIEGOS, LISSET E Ot 530.81 04/12/2015 KAUR MAZARIEGOS, LISSET E Ot 781.2 04/12/2015 KAUR MAZARIEGOS, LISSET E Ot 787.20 04/12/2015 KAUR MAZARIEGOS, LISSET E Ot V57.89 04/12/2015 KAUR MAZARIEGOS, LISSET E Ot V58.61 04/12/2015 KARU MAZARIEGOS, LISSET E Ot 285.9 04/12/2015 KAUR [...] 04/12/2015 KAUR MAZARIEGOS, LISSET E Ot V58.61 07/24/2015 FELECIA FORTUNE MD [...] Guthrie Ot V12.51 07/29/2015 GELLENDER DO, APRIL Guthrei Ot V12.53 07/29/2015 GELLENDER DO, APRIL Guthrie [...] GONSALES MD Ot I42.0 DILATED CARDIOMYOPATHY 02/15/2016 OSMAN GONSALES MD Ot Z95.0 PRESENCE OF CARDIAC PACEMAKER 02/17/2016 [...] TONG MAZARIEGOS, FELECIA Diaz Ot 428.0 03/17/2016 BLANCO BERMAN Ot G93.1 ANOXIC BRAIN DAMAGE, [...] FELECIA Diaz Ot 401.9 HYPERTENSION NOS 01/12/2018 FELECIA FORTUNE MD Ot 425.4 PRIM CARDIOMYOPATHY NEC 01/12/2018 FELECIA [...] INITIAL ENCOUNTER 08/05/2018 NIK CELIS Ot Z79.01 POTTERY MACHINE OPERATOR (CURRENT) USE OF ANTICOAGULANT 08/05/2018 LALITA NIK Ot Z79.51 RETIREMENT (CURRENT) USE OF INHALED STERO 08/05/2018 PEDRO CELISIS Ot Z87.01 PERSONAL HISTORY OF PNEUMONIA (RECURRENT 08/05/2018 PEDRO CELISIS Ot Z87.891 PERSONAL HISTORY OF NICOTINE DEPENDENCE 08/05/2018 PEDRO CELISIS Ot Z88.8 ALLERGY STATUS TO OT DRUG/MEDS/BIOL SUB 08/05/2018 PEDRO CELISIS Ot Z93.0 TRACHEOSTOMY STATUS 08/05/2018 PEDRO CELISIS [...] Ot K21.9 GASTRO-ESOPHAGEAL REFLUX DISEASE WITHOUT 08/08/2018 LALITA NIK Ot M25.571 PAIN IN RIGHT ANKLE AND JOINTS OF RIGHT 08/08/2018 LALITA NIK Ot M54.5 LOW BACK PAIN 08/08/2018 LALITA NIK Ot T20.45XA CORROSION OF UNSPECIFIED DEGREE OF SCALP 08/08/2018 PEDRO CELISIS Ot T32.0 CORROSIONS INVOLVING LESS THAN 10% OF DEREK 08/08/2018 PEDRO CELISIS Ot 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, UNDETERM 08/08/2018 LALITA NIK Ot W19.XXXA UNSPECIFIED FALL, INITIAL ENCOUNTER 08/08/2018 PEDRO CELISIS Ot Z79.01 RETIREMENT (CURRENT) USE OF ANTICOAGULANT 08/08/2018 PEDRO CELISIS Ot Z79.51 POTTERY MACHINE OPERATOR (CURRENT) USE OF INHALED STERO 08/08/2018 PEDRO [...] UNSPECIFIED 10/24/2018 FELECIA FORTUNE MD, Ot Z79.01 POTTERY MACHINE OPERATOR (CURRENT) USE OF ANTICOAGULANT 11/01/2018 RALPH LÓPEZ MD Ot D64.9 ANEMIA, UNSPECIFIED 11/01/2018 RALPH LÓPEZ MD Ot F31.9 BIPOLAR DISORDER, UNSPECIFIED 11/01/2018 RALPH LÓPEZ MD Ot F41.9 ANXIETY DISORDER, UNSPECIFIED 11/01/2018 RALPH LÓPEZ MD Ot I12.9 HYPERTENSIVE CHRONIC KIDNEY DISEASE W ST 11/01/2018 RALPH LÓPEZ MD Ot I16.0 HYPERTENSIVE URGENCY 11/01/2018 RALPH LÓPEZ MD Ot I25.2 OLD MYOCARDIAL INFARCTION 11/01/2018 RALPH LÓPEZ MD Ot I42.9 CARDIOMYOPATHY, UNSPECIFIED 11/01/2018 RALPH LÓPEZ MD Ot K21.9 GASTRO-ESOPHAGEAL REFLUX DISEASE WITHOUT 11/01/2018 RALPH LÓPEZ MD Ot M79.661 PAIN IN RIGHT LOWER LEG 11/01/2018 RALPH LÓPEZ MD Ot N18.9 CHRONIC KIDNEY DISEASE, UNSPECIFIED 11/01/2018 RALPH LÓPEZ MD Ot R06.02 SHORTNESS OF BREATH 11/01/2018 RALPH LÓPEZ MD Ot R07.89 OTHER CHEST PAIN 11/01/2018 RALPH LÓPEZ MD, Ot R51 HEADACHE 11/01/2018 RALPH ÓLPEZ MD, Ot Z79.01 RETIREMENT (CURRENT) USE OF ANTICOAGULANT 11/01/2018 RALPH LÓPEZ MD Ot Z79.51 POTTERY MACHINE OPERATOR (CURRENT) USE OF INHALED STERO 11/01/2018 RALPH LÓPEZ MD, Ot Z87.01 PERSONAL HISTORY OF PNEUMONIA (RECURRENT 11/01/2018 RALPH LÓPEZ MD, Ot Z87.09 PERSONAL HISTORY OF OTHER DISEASES OF TH 11/01/2018 RALPH LÓPEZ MD, Ot Z87.820 PERSONAL HISTORY OF TRAUMATIC BRAIN INJU 11/01/2018 RALPH LÓPEZ MD, Ot Z88.6 ALLERGY STATUS TO ANALGESIC AGENT STATUS 11/01/2018 RALPH LÓPEZ MD, Ot Z88.8 ALLERGY STATUS TO OTH DRUG/MEDS/BIOL SUB 11/01/2018 RALPH LÓPEZ MD Ot Z93.0 TRACHEOSTOMY STATUS 11/01/2018 RALPH LÓPEZ MD Ot Z95.810 PRESENCE OF AUTOMATIC (IMPLANTABLE) CARD 11/01/2018 RALPH LÓPEZ MD Ot Z98.890 OTHER SPECIFIED POSTPROCEDURAL STATES 11/03/2018 RALPH LÓPEZ MD, Ot D64.9 ANEMIA, UNSPECIFIED 11/03/2018 RALPH LÓPEZ MD Ot F31.9 BIPOLAR DISORDER, UNSPECIFIED 11/03/2018 RALPH LÓPEZ MD, Ot F41.9 ANXIETY DISORDER, UNSPECIFIED 11/03/2018 RALPH LÓPEZ MD, Ot I12.9 HYPERTENSIVE CHRONIC KIDNEY DISEASE W ST 11/03/2018 RALPH LÓPEZ MD Ot I16.0 HYPERTENSIVE URGENCY 11/03/2018 RALPH LÓPEZ MD, Ot I25.2 OLD MYOCARDIAL INFARCTION 11/03/2018 RALPH LÓPEZ MD, Ot I42.9 CARDIOMYOPATHY, UNSPECIFIED 11/03/2018 RALPH LÓPEZ MD, Ot K21.9 GASTRO-ESOPHAGEAL REFLUX DISEASE WITHOUT 11/03/2018 RALPH LÓPEZ MD, Ot M79.661 PAIN IN RIGHT LOWER LEG 11/03/2018 RALPH LÓPEZ MD, Ot N18.9 CHRONIC KIDNEY DISEASE, UNSPECIFIED 11/03/2018 RALPH LÓPEZ MD Ot R06.02 SHORTNESS OF BREATH 11/03/2018 RALPH LÓPEZ MD Ot R07.89 OTHER CHEST PAIN 11/03/2018 RALPH LÓPEZ MD, Ot R51 HEADACHE 11/03/2018 RALPH LÓPEZ MD, Ot Z79.01 RETIREMENT (CURRENT) USE OF ANTICOAGULANT 11/03/2018 RALPH LÓPEZ MD Ot Z79.51 POTTERY MACHINE OPERATOR (CURRENT) USE OF INHALED STERO 11/03/2018 RALPH LÓPEZ MD, Ot Z87.01 PERSONAL HISTORY OF PNEUMONIA (RECURRENT 11/03/2018 RALPH LÓPEZ MD, Ot Z87.09 PERSONAL HISTORY OF OTHER DISEASES OF TH 11/03/2018 RALPH LÓPEZ MD, Ot Z87.820 PERSONAL HISTORY OF TRAUMATIC BRAIN INJU 11/03/2018 RALPH LÓPEZ MD, Ot Z88.6 ALLERGY STATUS TO ANALGESIC AGENT STATUS 11/03/2018 RALPH LÓPEZ MD, Ot Z88.8 ALLERGY STATUS TO OTH DRUG/MEDS/BIOL SUB 11/03/2018 RALPH LÓPEZ MD, Ot Z93.0 TRACHEOSTOMY STATUS 11/03/2018 RALPH LÓPEZ MD Ot Z95.810 PRESENCE OF AUTOMATIC (IMPLANTABLE) CARD 11/03/2018 RALPH LÓPEZ MD Ot Z98.890 OTHER SPECIFIED POSTPROCEDURAL STATES 11/09/2018 RALPH LÓPEZ MD, Ot D64.9 ANEMIA, UNSPECIFIED 11/09/2018 RALPH LÓPEZ MD, Ot F31.9 BIPOLAR DISORDER, UNSPECIFIED 11/09/2018 RALPH LÓPEZ MD, Ot F41.9 ANXIETY DISORDER, UNSPECIFIED 11/09/2018 RALPH LÓPEZ MD, Ot I12.9 HYPERTENSIVE CHRONIC KIDNEY DISEASE W ST 11/09/2018 BRUEGGEMANN MD, RALPH T Ot I16.0 HYPERTENSIVE URGENCY 11/09/2018 RALPH LÓPEZ MD, Ot I25.2 OLD MYOCARDIAL INFARCTION 11/09/2018 RALPH LÓPEZ MD, Ot I42.9 CARDIOMYOPATHY, UNSPECIFIED 11/09/2018 RALPH LÓPEZ MD, Ot K21.9 GASTRO-ESOPHAGEAL REFLUX DISEASE WITHOUT 11/09/2018 RALPH LÓPEZ MD Ot M79.661 PAIN IN RIGHT LOWER LEG 11/09/2018 RALPH LÓPEZ MD, Ot N18.9 CHRONIC KIDNEY DISEASE, UNSPECIFIED 11/09/2018 RALPH LÓPEZ MD Ot R06.02 SHORTNESS OF BREATH 11/09/2018 RALPH LÓPEZ MD Ot R07.89 OTHER CHEST PAIN 11/09/2018 RALPH LÓPEZ MD, Ot R51 HEADACHE 11/09/2018 RALPH LÓPEZ MD, Ot Z79.01 POTTERY MACHINE OPERATOR (CURRENT) USE OF ANTICOAGULANT 11/09/2018 RALPH LÓPEZ MD Ot Z79.51 RETIREMENT (CURRENT) USE OF INHALED STERO 11/09/2018 RALPH [...] Ot Z93.0 TRACHEOSTOMY STATUS 11/09/2018 RALPH LÓPEZ MD, Ot Z95.810 PRESENCE OF AUTOMATIC (IMPLANTABLE) CARD 11/09/2018 RALPH LÓPEZ MD, Ot Z98.890 OTHER SPECIFIED POSTPROCEDURAL STATES 01/01/2019 NIK CELIS Ot F31.9 BIPOLAR DISORDER, UNSPECIFIED 01/01/2019 NIK CELIS Ot F41.9 ANXIETY DISORDER, UNSPECIFIED 01/01/2019 NIK CELIS Ot I42.9 CARDIOMYOPATHY, UNSPECIFIED 01/01/2019 NIK CELIS Ot J40 BRONCHITIS, NOT SPECIFIED ACUTE OR CH 01/01/2019 NIK CELIS Ot K21.9 GASTRO-ESOPHAGEAL REFLUX DISEASE WITHOUT 01/01/2019 NIK CELIS Ot R05 COUGH 01/01/2019 NIK CELIS Ot Z79.01 POTTERY MACHINE OPERATOR (CURRENT) USE OF ANTICOAGULANT 01/01/2019 NIK CELIS Ot Z79.51 RETIREMENT (CURRENT) USE OF INHALED STERO 01/01/2019 NIK CELIS Ot Z87.01 PERSONAL HISTORY OF PNEUMONIA (RECURRENT 01/01/2019 NIK CELIS Ot Z87.448 PERSONAL HISTORY OF OTHER DISEASES OF UR 01/01/2019 NIK CELIS Ot Z87.820 PERSONAL HISTORY OF TRAUMATIC BRAIN INJU 01/01/2019 NIK CELIS Ot Z87.891 PERSONAL HISTORY OF NICOTINE DEPENDENCE 01/01/2019 NIK CELIS Ot Z88.8 ALLERGY STATUS TO [facility] DRUG/MEDS/BIOL SUB 01/01/2019 NIK CELIS Ot Z93.0 TRACHEOSTOMY STATUS 01/01/2019 NIK CELIS Ot Z95.810 PRESENCE OF AUTOMATIC (IMPLANTABLE) CARD 01/01/2019 NIK CELIS Ot Z98.890 OTHER SPECIFIED POSTPROCEDURAL STATES 01/05/2019 BLANCO BERMAN Ot 401.9 HYPERTENSION NOS 01/05/2019 BLANCO BERMAN Ot 425.4 PRIM CARDIOMYOPATHY NEC 01/05/2019 BLANCO BERMAN Ot 427.5 CARDIAC ARREST 01/05/2019 BLANCO BERMAN Ot 428.0 CONGESTIVE HEART FAILURE NOS 01/05/2019 FELECIA FORTUNE MD Ot 397.0 TRICUSPID VALVE DISEASE 01/05/2019 FELECIA FORTUNE MD Ot 401.9 HYPERTENSION NOS 01/05/2019 FELECIA FORTUNE MD Ot 425.4 PRIM CARDIOMYOPATHY NEC 01/05/2019 FELECIA FORTUNE MD Ot 428.0 CONGESTIVE HEART FAILURE NOS 01/05/2019 BLANCO BERMAN Ot G93.1 ANOXIC BRAIN DAMAGE, NOT ELSEWHERE CLASS 01/05/2019 BLANCO BERMAN Ot I10 ESSENTIAL (PRIMARY) HYPERTENSION 01/05/2019 BLANCO BERMAN Ot I50.1 LEFT VENTRICULAR FAILURE 01/05/2019 BLANCO BERMAN Ot R09.2 RESPIRATORY ARREST 01/05/2019 BLANCO BERMAN Ot G93.1 ANOXIC BRAIN DAMAGE, NOT ELSEWHERE CLASS 01/05/2019 BLANCO BERMAN Ot I11.0 HYPERTENSIVE HEART DISEASE WITH HEART FA 01/05/2019 BLANCO BERMAN Ot I50.1 LEFT VENTRICULAR FAILURE, UNSPECIFIED 01/05/2019 BLANCO BERMAN Ot I51.3 INTRACARDIAC THROMBOSIS, NOT ELSEWHERE C 01/05/2019 FELECIA FORTUNE MD 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, AORTIC 01/05/2019 FELECIA FORTUNE MD Ot I10 ESSENTIAL (PRIMARY) HYPERTENSION 01/05/2019 FELECIA FORTUNE MD Ot I25.2 OLD MYOCARDIAL INFARCTION 01/05/2019 FELECIA FORTUNE MD Ot I42.9 CARDIOMYOPATHY, UNSPECIFIED 01/05/2019 FELECIA FORTUNE MD Ot R00.1 BRADYCARDIA, UNSPECIFIED 01/05/2019 FELECIA FORTUNE MD Ot Z79.01 RETIREMENT (CURRENT) USE OF ANTICOAGULANT 01/06/2019 BLANCO BERMAN Ot 401.9 HYPERTENSION NOS 01/06/2019 BLANCO BERMAN Ot 425.4 PRIM CARDIOMYOPATHY NEC 01/06/2019 BLANCO BERMAN Ot 427.5 CARDIAC ARREST 01/06/2019 BLANCO BERMAN Ot 428.0 CONGESTIVE HEART FAILURE NOS 01/06/2019 FELECIA FORTUNE MD Ot 397.0 TRICUSPID VALVE DISEASE 01/06/2019 FELECIA FORTUNE MD Ot 401.9 HYPERTENSION NOS 01/06/2019 FELECIA FORTUNE MD Ot 425.4 PRIM CARDIOMYOPATHY NEC 01/06/2019 FELECIA FORTUNE MD Ot 428.0 CONGESTIVE HEART FAILURE NOS 01/06/2019 BLANCO BERMAN Ot G93.1 ANOXIC BRAIN DAMAGE, NOT ELSEWHERE CLASS 01/06/2019 BLANCO BERMAN Ot I10 ESSENTIAL (PRIMARY) HYPERTENSION 01/06/2019 BLANCO BERMAN Ot I50.1 LEFT VENTRICULAR FAILURE 01/06/2019 BLANCO BERMAN Ot R09.2 RESPIRATORY ARREST 01/06/2019 BLANCO BERMAN Ot G93.1 ANOXIC BRAIN DAMAGE, NOT ELSEWHERE CLASS 01/06/2019 BLANCO BERMAN Ot I11.0 HYPERTENSIVE HEART DISEASE WITH HEART FA 01/06/2019 BLANCO BERMAN Ot I50.1 LEFT VENTRICULAR FAILURE, UNSPECIFIED 01/06/2019 BLANCO BERMAN Ot I51.3 INTRACARDIAC THROMBOSIS, NOT ELSEWHERE C 01/06/2019 FELECIA FORTUNE MD 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 KENYAN 42 mL/min/1.73m2 > OR=60 eGFR 48 mL/min/1.73m2 [...] Status Pt. Type Provider Facility Loc./Unit Complaint [id number] 01/01/2019 15:50:00 01/01/2019 19:25:00 DIS Emergency NIK CELIS [facility] ER SOB/COUGHING UP BLOOD [id number] 11/01/2018 14:51:00 11/01/2018 19:37:00 DIS Emergency MARIBEL MAZARIEGOS, RALPH Mcelroy [facility] ER SOB;HEAD PAIN;HIGH BP [id number] 10/23/2018 12:07:00 10/23/2018 23:59:59 CLS Outpatient FELECIA FORTUNE MD [facility] CARD CARDIOMYOPATHY,HTN,MR, SINUS BRADYCARDIA [id number] 08/05/2018 17:39:00 08/05/2018 19:33:00 DIS Emergency NIK CELIS [facility] ER HEAD HURTING,RT ANKLE SWOLLEN [id number] 01/12/2018 10:17:00 01/12/2018 23:59:59 CLS Outpatient BLANCO BERMAN [facility] CARD G93.1 ANOXIC ENCEPHALOPATHY [id number] 10/06/2017 12:00:00 10/06/2017 23:59:59 CLS Preadmit FELECIA FORTUNE MD [facility] CARD CARDIOMYOPATHY I42.9 [id number] 03/03/2016 12:12:00 03/03/2016 23:59:59 CLS Outpatient BLANCO BERMAN [facility] CARD ENCOPELPATH [id number] 02/15/2016 15:59:00 02/15/2016 18:46:00 DIS Emergency OSMAN GONSALES MD [facility] ER DEFIBRILLATOR ISSUES [id number] 12/01/2015 18:08:00 12/01/2015 21:10:00 DIS Emergency RODRIGO HILL DO [facility] ER IRREGULAR HEART RATE [id number] 08/23/2015 20:00:00 08/24/2015 01:08:00 DIS Emergency MARIBEL MAZARIEGOS, RALPH Mcelroy [facility] ER DEFIBRILLATOR BEEPING [id number] 08/08/2015 22:55:00 08/09/2015 00:13:00 DIS Emergency ORESTES VELASCO MD [facility] ER L ARM/RIB CAGE PAIN [id number] 07/27/2015 18:45:00 07/29/2015 12:40:00 DIS Inpatient APRIL DOMINIQUE DO [facility] CSD L PNEUMOTHORAX L CHEST WALL PX ELEV LFT'S [id number] 07/23/2015 06:38:00 07/24/2015 11:45:00 DIS Outpatient TONG MAZARIEGOS, FELECIA Diaz [facility] CATH CGF,CARDIOMYOPATHY [id number] 07/15/2015 11:28:00 07/15/2015 23:59:59 CLS Outpatient TONG MAZARIEGOS, FELECIA Diaz [facility] LAB CHF,HTN,TR [id number] 07/11/2015 10:45:00 07/11/2015 23:59:59 CLS Outpatient BLANCO BERMAN [facility] CARD CHF, CARDINUREOPATHY HTN [id number] 03/26/2015 13:23:00 03/31/2015 18:00:00 DIS Inpatient APRIL DOMINIQUE DO [facility] CSD UNK [id number] 03/21/2015 12:45:00 03/26/2015 12:46:00 DIS Inpatient KAUR MAZARIEGOS, LISSET Mcghee [facility] IRF DEBILITY,ENCEPHALOPATHY [id number] 01/06/2019 01:18:00 ACT Emergency PREM MAZARIEGOS, FEDE Burgos [facility] ER CP,FALL 2 DAYS AGO [id number] 08/23/2015 20:00:34 ACT Document Registration [id number] 01/01/2019 14:00:00 01/01/2019 23:59:59 [facility] [id number] 09/20/2018 09:20:00 Document Registration [id number] 08/10/2018 11:40:00 Document Registration
[2019-01-06 01:40] LABS: BASOPHILS # (AUTO) 0.1 10^3/uL (0.0-0.1); BASOPHILS % (AUTO) 1 % (0-10); EOSINOPHILS # (AUTO) 0.2 10^3/uL (0.0-0.3); EOSINOPHILS % (AUTO) 2 % (0-10); HEMATOCRIT 44 % (35-52); HEMOGLOBIN 14.6 G/DL (11.5-16.0); LYMPHOCYTES # (AUTO) 4.4 X 10^3 (1.0-4.0); LYMPHOCYTES % (AUTO) 43 % (12-44); MEAN CORPUSCULAR HEMOGLOBIN 29 PG (25-34); MEAN CORPUSCULAR HGB CONC 33 G/DL (32-36); MEAN CORPUSCULAR VOLUME 86 FL (80-99); MEAN PLATELET VOLUME 8.6 FL (7.4-10.4); MONOCYTES # (AUTO) 0.9 X 10^3 (0.0-1.0); MONOCYTES % (AUTO) 9 % (0-12); NEUTROPHILS # (AUTO) 4.6 X 10^3 (1.8-7.8); NEUTROPHILS % (AUTO) 46 % (42-75); PLATELET COUNT 449 10^3/uL (130-400); RED CELL DISTRIBUTION WIDTH 15.5 % (10.0-14.5)
[2019-01-06 01:44] LABS: PROTHROMBIN TIME PATIENT 12.7 SEC (12.2-14.7)
[2019-01-06 01:52] LABS: ALANINE AMINOTRANSFERASE 18 U/L (0-55); ALBUMIN 3.6 GM/DL (3.2-4.5); ALKALINE PHOSPHATASE 89 U/L (40-136); BILIRUBIN,TOTAL 0.1 MG/DL (0.1-1.0); BUN/CREATININE RATIO 15; CALCIUM 8.8 MG/DL (8.5-10.1); CARBON DIOXIDE 21 MMOL/L (21-32); CHLORIDE 103 MMOL/L (98-107); CREATININE SERUM 1.51 MG/DL (0.60-1.30); GFR ESTIMATED 49; GLUCOSE 144 MG/DL (70-105); POTASSIUM 3.7 MMOL/L (3.6-5.0); SODIUM 138 MMOL/L (135-145); TOTAL PROTEIN 6.9 GM/DL (6.4-8.2)
[2019-01-06 01:59] LABS: MYOGLOBIN SERUM 103.4 NG/ML (10.0-92.0)
--- NOTE | 2019-01-06 02:10 | ED Chest Pain ---
General Chief Complaint: Chest Pain Stated Complaint: CP,FALL 2 DAYS AGO Nursing Triage Note: PT TO ROOM #6 VIA [facility] FROM HOME WITH C/O L SIDED CHEST DISCOMFORT. [facility] ACCESSED 20G IV TO RT AC AND ADM 324MG ASA. UPON ARRIVAL A&OX4. REPORTS LT SIDED CHEST DISCOMFORT THAT RADIATES TO BACK. REPORTS APPROX X3 DAYS AGO PT SLIPPED ON ICE, STRIKING LT CHEST WALL. REPORTS INCREASED SEVERITY IN PAIN SINCE INJURY. DENIES LOC OR NECK PAIN. TENDERNESS TO LT CHEST WALL REPRODUCIBLE UPON LIGHT PALPATION. LUNG SOUNDS CTA. REPORTS CURRENTLY BEING TX FOR BRONCHITIS. Nursing Sepsis Screen: No Definite Risk Source: patient Exam Limitations: no limitations History of Present Illness Date Seen by Provider: Jan 06, 2019 Time Seen by Provider: 02:02 Initial Comments Here with report of left-sided chest pain after fall 3 days ago landing on her left side. Apparently she slipped on ice and landed on her side. Does have significant cardiac history with previous pulmonary embolism and subsequent cardiac arrest. Does have some residual left-sided weakness from that so likely stroke at that time as well. She is on blood thinners. She denies hitting her head or loss of consciousness. Since that time she has had the left lateral upper chest wall pain. She's been taking Tylenol and ibuprofen for this and that has not helped. Hurts with deep breathing and better with rest. Does hurt with movement. Arrives to [facility]. They did give ASA 324 mg by mouth. Timing/Duration: 3-4 days Severity/Quality: moderate, aching Location: other (left lateral) Radiation: no radiation (anterior and posterior) Activities at Onset: other (fall) Prior CP/Workup: cardiac cath, echocardiography, pulmonary embolism Modifying Factors: improves with rest ASA po [facility]: Yes NTG SL [facility]: No Associated Symptoms: No abdominal pain, No back pain, No diaphoresis, No fatigue, No nausea/vomiting; shortness of breath; No weakness Allergies and Home Medications Allergies Coded Allergies: JIA Inhibitors (Verified Allergy, Severe, 07/24/15) ARB-Angiotensin Receptor Antagonist (Verified Allergy, Severe, 07/24/15) baclofen (Unverified Allergy, Unknown, 03/24/15) ON H&P phenazopyridine (Unverified Allergy, Unknown, 03/24/15) ON H&P Home Medications Albuterol Sulfate 8 Gm Hfa.aer.ad, 2 PUFF INH Q6H PRN for SHORTNESS OF BREATH, ( Reported) Amlodipine Besylate 10 Mg Tablet, 10 MG PO DAILY, (Reported) Apixaban 5 Mg Tablet, 5 MG PO BID Prescribed by: RALPH DELCID on 11/01/18 185 Azithromycin 250 Mg Tablet, 250 MG PO UD TAKE 2 TABLETS TODAY, THEN TAKE 1 TABLET DAILY FOR 4 MORE DAYS Prescribed by: NIK CELIS on 01/01/191830 Metoprolol Tartrate 50 Mg Tablet, 50 MG PO BID Prescribed by: FELECIA FORTUNE on 07/24/15 0841 Prednisone 10 Mg Tab.ds.pk, 10 MG PO UD Prescribed by: NIK CELIS on 01/01/191830 Venlafaxine HCl 150 Mg Tab.er.24, 150 MG PO DAILY, (Reported) Warfarin Sodium 4 Mg Tablet, 8 MG PO HS, (Reported) TAKES 2 (4MG) TABLETS Patient Home Medication List Home Medication List Reviewed: Yes Review of Systems Review of Systems Constitutional: see HPI; No chills, No fever EENTM: No Symptoms Reported Respiratory: Denies Shortness of Air, Denies Wheezing Cardiovascular: Chest Pain; Denies Edema Gastrointestinal: No Symptoms Reported Genitourinary: No Symptoms Reported Musculoskeletal: see HPI, muscle pain; No neck pain Skin: no symptoms reported Psychiatric/Neurological: Headache; Denies Numbness All Other Systems Reviewed Negative Unless Noted: Yes Past Yhfixka-Xebbwr-Qistgg Hx Past Med/Social Hx: Reviewed Nursing Past Med/Soc Hx Patient Social History Alcohol Use: Occasionally Uses Number of Drinks Today: 0 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 PEG TUBE--REMOVED, uterine ablation) Abdominal, Section, Defibrillator, Gallbladder, Tracheostomy Respiratory: Yes (ARDS-CODED; PNEUMOTHORAX 06/2015) Pneumonia, Chronic Bronchitis Currently Using CPAP: No Currently Using BIPAP: No Cardiac: Yes (PULMONARY EDEMA/CARDIAC CAUSE-R/T ATRIAL THROMBUS; CARDIAC ARREST ;V-FIB ) Cardiomyopathy, Endocarditis, Valvular Heart Disease Neurological: Yes (encephalopathy-hypoxia, anoxic brain injury) Reproductive Disorders: No Sexually Transmitted Disease: No Genitourinary: Yes Renal Failure Gastrointestinal: Yes Gastroesophageal Reflux Musculoskeletal: Yes (GAIT DISTURBANCE) Endocrine: No HEENT: No Loss of Vision: Denies Hearing Impairment: Denies Cancer: No Psychosocial: Yes (per med record) Anxiety, Bipolar, Depression Integumentary: No Blood Disorders: Yes (ANEMIA) Family Medical History Reviewed Nursing Family Hx Patient reports no known family medical history. No Pertinent Family Hx Physical Exam Vital Signs Vital Signs - First Documented 01/06/19 01:15 Temp 98.4 Pulse 87 Resp 18 B/P (MAP) 135/98 (110) Pulse Ox 98 O2 Delivery Room Air Capillary Refill : Less Than 3 Seconds Height, Weight, BMI Height: 5'3.00" Weight: 220lbs. 0.1oz. 99.915262zc; 28.34 BMI Method:Stated General Appearance: No Apparent Distress, WD/WN HEENT: PERRL/EOMI, Pharynx Normal Neck: Non Tender, Supple Respiratory: Lungs Clear, Normal Breath Sounds, Other (tender to the left lateral chest wall. No obvious deformity or bruising.) Cardiovascular: Regular Rate, Rhythm, No Murmur Gastrointestinal: Non Tender, Soft Extremity: Normal Range of Motion, Non Tender Neurologic/Psychiatric: Alert, Oriented x3 Skin: Normal Color, Warm/Dry Progress/Results/Core Measures Results/Orders Lab Results Laboratory Tests Test 01/06/19 01:20 Range/Units White Blood Count 10.0 4.3-11.0 10^3/uL Red Blood Count 5.07 4.35-5.85 10^6/uL Hemoglobin 14.6 11.5-16.0 G/DL Hematocrit 44 35-52 % Mean Corpuscular Volume 86 80-99 FL Mean Corpuscular Hemoglobin 29 25-34 PG Mean Corpuscular Hemoglobin Concent 33 32-36 G/DL Red Cell Distribution Width 15.5 H 10.0-14.5 % Platelet Count 449 H 130-400 10^3/uL Mean Platelet Volume 8.6 7.4-10.4 FL Neutrophils (%) (Auto) 46 42-75 % Lymphocytes (%) (Auto) 43 12-44 % Monocytes (%) (Auto) 9 0-12 % Eosinophils (%) (Auto) 2 0-10 % Basophils (%) (Auto) 1 0-10 % Neutrophils # (Auto) 4.6 1.8-7.8 X 10^3 Lymphocytes # (Auto) 4.4 H 1.0-4.0 X 10^3 Monocytes # (Auto) 0.9 0.0-1.0 X 10^3 Eosinophils # (Auto) 0.2 0.0-0.3 10^3/uL Basophils # (Auto) 0.1 0.0-0.1 10^3/uL Prothrombin Time 12.7 12.2-14.7 SEC INR Comment 1.0 0.8-1.4 Activated Partial Thromboplast Time 30 24-35 SEC Sodium Level 138 135-145 MMOL/L Potassium Level 3.7 3.6-5.0 MMOL/L Chloride Level 103 98-107 MMOL/L Carbon Dioxide Level 21 21-32 MMOL/L Anion Gap 14 5-14 MMOL/L Blood Urea Nitrogen 23 H 7-18 MG/DL Creatinine 1.51 H 0.60-1.30 MG/DL Estimat Glomerular Filtration Rate 49 BUN/Creatinine Ratio 15 Glucose Level 144 H 70-105 MG/DL Calcium Level 8.8 8.5-10.1 MG/DL Corrected Calcium 9.1 8.5-10.1 MG/DL Magnesium Level 2.0 1.8-2.4 MG/DL Total Bilirubin 0.1 0.1-1.0 MG/DL Aspartate Amino Transf (AST/SGOT) 18 5-34 U/L Alanine Aminotransferase (ALT/SGPT) 18 0-55 U/L Alkaline Phosphatase 89 40-136 U/L Myoglobin 103.4 H 10.0-92.0 NG/ML Troponin I < 0.028 <0.028 NG/ML Total Protein 6.9 6.4-8.2 GM/DL Albumin 3.6 3.2-4.5 GM/DL Acetaminophen Level 11 10-30 UG/ML My Orders Orders - FEDE AMARO MD Cbc With Automated Diff (01/06/19 01:32) Magnesium (01/06/19 01:32) Chest 1 View, Ap/Pa Only (01/06/19 01:32) Ekg Tracing (2/9/19 01:32) Cardiac Profile 1 (01/06/19 01:32) Comprehensive Metabolic Panel (01/06/19 01:32) Myoglobin Serum (01/06/19 01:32) Protime With Inr (01/06/19 01:32) Partial Thromboplastin Time (01/06/19 01:32) O2 (01/06/19 01:32) Monitor-Rhythm Ecg Trace Only (01/06/19 01:32) Lipid Panel (01/07/19 06:00) Saline Lock/Iv-Start (01/06/19 01:32) Acetaminophen (01/06/19 01:42) Ct Chest Wo (01/06/19 01:42) Ct Head Wo (01/06/19 02:11) Hydrocodone/Apap 7.5/325 Tab (Lortab 7. (01/06/19 02:54) Vital Signs/I&O 01/06/19 01/06/19 01:15 01:15 Temp 98.4 Pulse 87 Resp 18 B/P (MAP) 135/98 (110) Pulse Ox 98 O2 Delivery Room Air Room Air Blood Pressure Mean: 110 Progress Progress Note : Progress Note Seen and evaluated. IV by EMS. No ASA as it was given by EMS. Labs, chest x- ray and CT of the chest without contrast ordered. We will also get CT of the head given that she has headache and history of fall and patient is on Eliquis. She is asking something for headache. We will check Tylenol level and she said that she has taken quite a bit of Tylenol as well as evaluate kidney function because she's been taking ibuprofen with history of kidney disease. Monitor patient. 0255: CT of head and chest negative. Chest x-ray negative. Patient is complaining of headache and some lateral chest wall pain. Hydrocodone 7.5 one tab by mouth 1. She will continue outpatient pain control with neod-fkw-wixwlsu therapy and ice packs or heat as needed. Discharged home with return precautions. Patient and family verbalize understanding instructions and agreement with plan. Initial ECG Impression Date: Jan 06, 2019 Initial ECG Impression Time: 01:21 Initial ECG Rate: 86 Initial ECG Rhythm: Normal Sinus Comment Sinus rhythm with normal axis. LVH noted. No evidence of ST elevation IN. Similar to previous of 05/15. Interpreted by me. Diagnostic Imaging Diagonstic Imaging: Xray Plain Films/CT/US/NM/MRI: chest Comments No acute findings Diagonstic Imaging: CT Plain Films/CT/US/NM/MRI: chest Comments No traumatic injury within the chest Reviewed: Reviewed [place] Study, Reviewed by Me Diagonstic Imaging: CT Plain Films/CT/US/NM/MRI: head Comments No acute intracranial abnormality Reviewed: Reviewed [place] Study, Reviewed by Me Departure Impression Primary Impression: Chest wall contusion Qualified Codes: S20.212A - Contusion of left front wall of thorax, initial encounter Additional Impression: Muscle strain of chest wall Qualified Codes: S29.011A - Strain of muscle and tendon of front wall of thorax, initial encounter Disposition: HOME, SELF-CARE Condition: Against Medical Advice Departure-Patient Inst. Decision time for Depature: 03:01 Referrals: NO,LOCAL PHYSICIAN (PCP/Family) Primary Care Physician Patient Instructions: CHEST CONTUSION, Chest Pain (DC), Muscle Strain (DC) Add. Discharge Instructions: All discharge instructions reviewed with patient and/or family. Voiced understanding. You may take Tylenol/acetaminophen 1000 mg every 8 hours as needed for pain but do not exceed 4000 mg in 24 hours. You may take ibuprofen 600 mg every 8 hours as needed for pain. He may use ice packs to area of concern 20 minutes per hour as needed for pain control. You may alternate with heat if this helps. Follow-up with your DrCeleste in a few days for recheck. Return for worse pain, fever , vomiting, weakness, breathing problems or other concerns as needed. FEDE AMARO MD Jan 06, 2019 02:09
[2019-01-06] MEDS ORDERED: HYDROcodone/APAP 7.5 MG/325 MG (LORTAB, LORCET PLUS) TABLET PO STA (02:54)
[2019-01-06 03:15] VITALS: BP 113/86
--- NOTE | 2019-01-06 06:21 | Diagnostic Imaging Report ---
PROCEDURE: CT head without contrast. TECHNIQUE: Multiple contiguous axial images were obtained through the brain without the use of intravenous contrast. INDICATION: Fall. Study compared 11/01/2018. FINDINGS: There is no hemorrhage, hydrocephalus, edema, mass, mass effect or intracranial hemorrhage. There are no abnormal extra-axial fluid collections. The basilar cisterns patent. The sulci non-effaced. Orbits and sinuses nonacute. IMPRESSION: No hemorrhage, edema or acute appearing abnormality. Dictated by: Dictated on workstation # [id number]
--- NOTE | 2019-01-06 06:27 | Diagnostic Imaging Report ---
PROCEDURE: CT chest without contrast. TECHNIQUE: Multiple contiguous axial images were obtained through the chest without the use of intravenous contrast. INDICATION: Fall. Exam compared 07/27/2015. FINDINGS: No lung contusion, pneumothorax or hemothorax. No pneumatocele or evidence for pulmonary laceration. There is no findings of aspiration. Sternum and manubrium appeared nonacute. The partially visualized shoulder is unremarkable. No demonstrated acute rib fracture deformity. The reconstruction views revealed thoracic vertebral body heights to be within normal limits aligned anatomically. No lung mass or thoracic lymphadenopathy. There is no evidence for pneumonia. The upper abdomen show no free air or free fluid. IMPRESSION: No acute or posttraumatic sequelae identified. Dictated by: Dictated on workstation # [id number]
--- NOTE | 2019-01-06 07:54 | Diagnostic Imaging Report ---
INDICATION: Fall. FINDINGS: The lungs are clear. The heart size and vascularity within normal limits. There is no effusion or pneumothorax. Pacemaker device unremarkable. IMPRESSION: No acute appearing abnormality. Dictated by: Dictated on workstation # [id number]
== END 2019-01-06 03:15 | disposition home or self-care (01) ==
LOC: EDUNIT# 01:15 → ER 01:18
DX: S29.011A Strain of muscle and tendon of front wall of thorax, initial encounter (principal); I25.2 Old myocardial infarction; I42.9 Cardiomyopathy, unspecified; K21.9 Gastro-esophageal reflux disease without esophagitis; F41.9 Anxiety disorder, unspecified; F31.9 Bipolar disorder, unspecified; D64.9 Anemia, unspecified; Z87.448 Personal history of other diseases of urinary system; Z87.820 Personal history of traumatic brain injury; Z88.8 Allergy status to other drugs, medicaments and biological substances; Z79.51 Long term (current) use of inhaled steroids; Z79.01 Long term (current) use of anticoagulants; Z79.52 Long term (current) use of systemic steroids; Z95.810 Presence of automatic (implantable) cardiac defibrillator; Z98.890 Other specified postprocedural states; Z86.711 Personal history of pulmonary embolism; Z93.0 Tracheostomy status; Z87.01 Personal history of pneumonia (recurrent); Z87.09 Personal history of other diseases of the respiratory system; W00.9XXA Unspecified fall due to ice and snow, initial encounter
CPT/HCPCS: 36415; 70450; 71045; 71250; 80053; 80329; 83735; 83874; 84484; 85025; 85610; 85730; 93041

== ENCOUNTER 2019-04-09 00:31 | Emergency (ER) | payer MEDICAID ==
[~2019-04-09] VITALS: Ht 160 cm; Wt 106.1 kg
--- NOTE | 2019-04-09 00:46 | ED Upper Extremity ---
General Stated Complaint: LEFT PAIN Source: patient Exam Limitations: no limitations History of Present Illness Date Seen by Provider: April 09, 2019 Time Seen by Provider: 00:43 Allergies and Home Medications Allergies Coded Allergies: ODILON Inhibitors (Verified Allergy, Severe, 07/24/15) ARB-Angiotensin Receptor Antagonist (Verified Allergy, Severe, 07/24/15) baclofen (Unverified Allergy, Unknown, 03/24/15) ON H&P phenazopyridine (Unverified Allergy, Unknown, 03/24/15) ON H&P Home Medications Albuterol Sulfate 8 Gm Hfa.aer.ad, 2 PUFF INH Q6H PRN for SHORTNESS OF BREATH, ( Reported) Amlodipine Besylate 10 Mg Tablet, 10 MG PO DAILY, (Reported) Apixaban 5 Mg Tablet, 5 MG PO BID Prescribed by: RALPH DELCID on 11/01/18 185 Azithromycin 250 Mg Tablet, 250 MG PO UD TAKE 2 TABLETS TODAY, THEN TAKE 1 TABLET DAILY FOR 4 MORE DAYS Prescribed by: NIK CELIS on 01/01/19 183 Metoprolol Tartrate 50 Mg Tablet, 50 MG PO BID Prescribed by: FELECIA FORTUNE on 07/24/15 0841 Prednisone 10 Mg Tab.ds.pk, 10 MG PO UD Prescribed by: NIK CELIS on 01/01/19 183 Venlafaxine HCl 150 Mg Tab.er.24, 150 MG PO DAILY, (Reported) Warfarin Sodium 4 Mg Tablet, 8 MG PO HS, (Reported) TAKES 2 (4MG) TABLETS Past Rrmxhcx-Mspdrp-Ocwyed Hx Patient Social History 2nd Hand Smoke Exposure: No Recent Foreign Travel: No Contact w/Someone Who Travel: No Recent Hopitalizations: No Immunizations Up To Date Tetanus Booster (TDap): Unknown PED Vaccines UTD: Yes Date of Pneumonia Vaccine: Mar 21, 2015 Date of Influenza Vaccine: Aug 19, 2015 Past Medical History Surgeries: Yes (DEFIBRILLATOR PLACED 07/23/15. PEG TUBE--REMOVED, uterine ablation) Abdominal, Section, Defibrillator, Gallbladder, Tracheostomy Respiratory: Yes (ARDS-CODED; PNEUMOTHORAX 06/2015) Pneumonia, Chronic Bronchitis Currently Using CPAP: No Currently Using BIPAP: No Cardiac: Yes (PULMONARY EDEMA/CARDIAC CAUSE-R/T ATRIAL THROMBUS; CARDIAC ARREST ;V-FIB ) Cardiomyopathy, Endocarditis, Valvular Heart Disease Neurological: Yes (encephalopathy-hypoxia, anoxic brain injury) Reproductive Disorders: No Sexually Transmitted Disease: No Genitourinary: Yes Renal Failure Gastrointestinal: Yes Gastroesophageal Reflux Musculoskeletal: Yes (GAIT DISTURBANCE) Endocrine: No HEENT: No Loss of Vision: Denies Hearing Impairment: Denies Cancer: No Psychosocial: Yes (per med record) Anxiety, Bipolar, Depression Integumentary: No Blood Disorders: Yes (ANEMIA) Family Medical History Patient reports no known family medical history. No Pertinent Family Hx Physical Exam Vital Signs Vital Signs - First Documented 04/09/19 00:56 Temp 97.7 Pulse 110 Resp 20 B/P (MAP) 156/123 (134) Pulse Ox 97 O2 Delivery Room Air Capillary Refill : Height, Weight, BMI Height: 5'3.00" Weight: 220lbs. 0.1oz. 99.320338kc; 28.34 BMI Method:Stated Progress/Results/Core Measures Results/Orders My Orders Orders - DELIO ARIZA DO Elbow 3 View Left (04/09/19 00:45) Odilon Bandage (04/09/19 01:19) [facility] Supplies Order (04/09/19 01:19) Ketorolac Injection (Toradol Injection) (04/09/19 01:30) Vital Signs/I&O 04/09/19 00:56 Temp 97.7 Pulse 110 Resp 20 B/P (MAP) 156/123 (134) Pulse Ox 97 O2 Delivery Room Air Departure Impression Primary Impression: Elbow pain, left Disposition: 01 HOME, SELF-CARE Condition: Stable Departure-Patient Inst. Decision time for Depature: 01:23 Referrals: NO,LOCAL PHYSICIAN (PCP/Family) Primary Care Physician Patient Instructions: Tendonitis (DC) Scripts Meloxicam (Mobic) 7.5 Mg Tablet 7.5 MG PO Q12H PRN for elbow pain, #30 TAB 0 Refills Prov: DELIO ARIZA DO 04/09/19 DELIO ARIZA DO April 09, 2019 00:46
[2019-04-09] MEDS ORDERED: MELO-170 PO (01:25)
[2019-04-09] MEDS ORDERED: KETOROLAC 30 MG/ML VIAL ONE (01:29)
[2019-04-09] MEDS ORDERED: KETOROLAC 30 MG/ML VIAL IM ONE (01:30)
[2019-04-09 01:40] VITALS: BP 161/115
--- NOTE | 2019-04-09 06:48 | Diagnostic Imaging Report ---
INDICATION: Pain COMPARISON: None available TECHNIQUE: 3 radiographs of the left elbow dated 04/09/2019. FINDINGS: No acute fracture or dislocation. No destructive osseous process. Joint spaces are well-maintained. No joint effusion. No suspicious radiopaque foreign body. IMPRESSION: No acute osseous abnormality. Dictated by: Dictated on workstation # [id number]
== END 2019-04-09 01:40 | disposition home or self-care (01) ==
LOC: EDUNIT# 00:31 → ER FS 00:33
DX: M25.522 Pain in left elbow (principal); I25.2 Old myocardial infarction; I42.9 Cardiomyopathy, unspecified; K21.9 Gastro-esophageal reflux disease without esophagitis; F41.9 Anxiety disorder, unspecified; F31.9 Bipolar disorder, unspecified; D64.9 Anemia, unspecified; Z86.69 Personal history of other diseases of the nervous system and sense organs; Z86.79 Personal history of other diseases of the circulatory system; Z88.8 Allergy status to other drugs, medicaments and biological substances; Z79.01 Long term (current) use of anticoagulants; Z79.52 Long term (current) use of systemic steroids; Z95.810 Presence of automatic (implantable) cardiac defibrillator; Z98.890 Other specified postprocedural states; Z93.0 Tracheostomy status; Z87.01 Personal history of pneumonia (recurrent); Z87.09 Personal history of other diseases of the respiratory system
CPT/HCPCS: 73080

== ENCOUNTER 2019-04-12 20:28 | Emergency (ER) | payer MEDICAID ==
[~2019-04-12] VITALS: Ht 160 cm; Wt 106.1 kg
[~2019-04-12 20:28] MED LIST changes: +MELO-170 PO
--- NOTE | 2019-04-12 20:58 | NUR ---
DOCTOR BULMARO IN TO SEE THE PATIENT.
[2019-04-12] MEDS ORDERED: hydrALAZINE (APESOLINE) 20 MG/ML VIAL IV ONE (21:00)
--- NOTE | 2019-04-12 21:01 | NUR ---
PT. UP TO VOID AT THIS TIME.
--- NOTE | 2019-04-12 21:15 | ED General ---
General Chief Complaint: Abdominal/GI Problems Stated Complaint: VOMITING, BACK PAIN, DIZZY Nursing Triage Note: PT. REPORTED SHE VOMITED TIMES ONE AFTER TAKING HER MEDICATION. SHE C/O A BABCOCK, SHAKING, AND KIDNEY PAIN. ATTEMPTED TO GET A UA AND THE PATIENT STATED SHE HAD VOIDED PRIOR TO COMING TO THE ER AND IS UNABLE TO GIVE A SAMPLE AT THIS TIME. Nursing Sepsis Screen: No Definite Risk Source of Information: Patient, Family History of Present Illness Date Seen by Provider: April 12, 2019 Time Seen by Provider: 20:48 Initial Comments 28-year-old female presenting with complaints of frontal headache and left flank pain. She states that the left flank pain has been going on for quite a while. The frontal headache started today. She has been anxious about her brother who was just diagnosed with having pulmonary emboli. She does have a history of hypertension. She also has a history of stroke in his taking blood thinners. She was concerned that her kidney function may be failing. She wanted to be evaluated for headache and her kidney pain. She denies any fever or chills. She did have one episode of vomiting at home. She has no change in her vision. Allergies and Home Medications Allergies Coded Allergies: JIA Inhibitors (Verified Allergy, Severe, 04/12/19) ARB-Angiotensin Receptor Antagonist (Verified Allergy, Severe, 07/24/15) baclofen (Unverified Allergy, Unknown, 03/24/15) ON H&P phenazopyridine (Unverified Allergy, Unknown, 03/24/15) ON H&P Home Medications Albuterol Sulfate 8 Gm Hfa.aer.ad, 2 PUFF INH Q6H PRN for SHORTNESS OF BREATH, ( Reported) Amlodipine Besylate 10 Mg Tablet, 10 MG PO DAILY, (Reported) Apixaban 5 Mg Tablet, 5 MG PO BID Prescribed by: RALPH DELCID on 11/01/18 185 Azithromycin 250 Mg Tablet, 250 MG PO UD TAKE 2 TABLETS TODAY, THEN TAKE 1 TABLET DAILY FOR 4 MORE DAYS Prescribed by: NIK CELIS on 01/01/19 183 Meloxicam 7.5 Mg Tablet, 7.5 MG PO Q12H PRN for elbow pain Prescribed by: DELIO ARIZA on 04/09/19 0125 Metoprolol Tartrate 50 Mg Tablet, 50 MG PO BID Prescribed by: FELECIA PATTERSON on 07/24/15 0841 Prednisone 10 Mg Tab.ds.pk, 10 MG PO UD Prescribed by: NIK CELIS on 01/01/19 1831 Venlafaxine HCl 150 Mg Tab.er.24, 150 MG PO DAILY, (Reported) Warfarin Sodium 4 Mg Tablet, 8 MG PO HS, (Reported) TAKES 2 (4MG) TABLETS Patient Home Medication List Home Medication List Reviewed: Yes Review of Systems Review of Systems Constitutional: see HPI EENTM: No ear pain, No blurred vision, No eye pain, No vision loss, No epistaxis, No nose congestion, No nose pain Respiratory: No cough, No short of breath Cardiovascular: No chest pain Gastrointestinal: nausea, vomiting (x 1) Genitourinary: No dysuria, No frequency, No hematuria; pain (left flank pain) Musculoskeletal: no symptoms reported Skin: no symptoms reported Psychiatric/Neurological: Anxiety Past Nmprmdz-Dtoadf-Ghdlkr Hx Past Med/Social Hx: Reviewed Nursing Past Med/Soc Hx Patient Social History 2nd Hand Smoke Exposure: No Recent Foreign Travel: No Contact w/Someone Who Travel: No Recent Infectious Disease Expo: No Recent Hopitalizations: No Physical Abuse: No Sexual Abuse: No Mistreated: No Fear: No Immunizations Up To Date Tetanus Booster (TDap): Unknown PED Vaccines UTD: Yes Date of Pneumonia Vaccine: Mar 21, 2015 Date of Influenza Vaccine: Aug 19, 2015 Seasonal Allergies Seasonal Allergies: No Past Medical History Surgeries: Yes (DEFIBRILLATOR PLACED 07/23/15. PEG TUBE--REMOVED, uterine ablation) Abdominal, Section, Defibrillator, Gallbladder, Tracheostomy Respiratory: Yes (ARDS-CODED; PNEUMOTHORAX 06/2015) Pneumonia, Chronic Bronchitis Currently Using CPAP: No Currently Using BIPAP: No Cardiac: Yes (PULMONARY EDEMA/CARDIAC CAUSE-R/T ATRIAL THROMBUS; CARDIAC ARREST ;V-FIB ) Cardiomyopathy, Endocarditis, Valvular Heart Disease Neurological: Yes (encephalopathy-hypoxia, anoxic brain injury) Reproductive Disorders: No Sexually Transmitted Disease: No Genitourinary: Yes Renal Failure Gastrointestinal: Yes Gastroesophageal Reflux Musculoskeletal: Yes (GAIT DISTURBANCE) Endocrine: No HEENT: No Loss of Vision: Denies Hearing Impairment: Denies Cancer: No Psychosocial: Yes (per med record) Anxiety, Bipolar, Depression Integumentary: No Blood Disorders: Yes (ANEMIA) Family Medical History Patient reports no known family medical history. No Pertinent Family Hx Physical Exam Vital Signs Vital Signs - First Documented 04/12/19 20:34 Temp 97.6 Pulse 100 Resp 20 B/P (MAP) 147/115 (126) Pulse Ox 95 O2 Delivery Room Air Capillary Refill : Less Than 3 Seconds Height, Weight, BMI Height: 5'3.00" Weight: 234lbs. 0.1oz. 106.925566ic; 28.34 BMI Method:Stated General Appearance: No Apparent Distress, WD/WN, Anxious, Obese HEENT: PERRL/EOMI, Pharynx Normal Neck: Full Range of Motion, Normal Inspection, Non Tender, Supple Respiratory: Chest Non Tender, Lungs Clear, Normal Breath Sounds, No Accessory Muscle Use, No Respiratory Distress Cardiovascular: Regular Rate, Rhythm, Normal Peripheral Pulses Gastrointestinal: Normal Bowel Sounds, No Pulsatile Mass, Non Tender, Soft Rectal: Deferred Back: No Vertebral Tenderness, CVA Tenderness (L) Extremity: Normal Capillary Refill, Non Tender, No Calf Tenderness Neurologic/Psychiatric: Alert, Oriented x3, No Motor/Sensory Deficits Skin: Normal Color, Warm/Dry Progress/Results/Core Measures Suspected Sepsis Recent Fever Within 48 Hours: No Infection Criteria Present: None New/Unexplained Altered Menta: No Sepsis Screen: No Definite Risk SIRS Temperature:97.6 Pulse: 100 Respiratory Rate: 20 Laboratory Tests 04/12/19 21:20: White Blood Count 8.0 Blood Pressure 147 /115 Mean: 126 Laboratory Tests 04/12/19 21:20: Creatinine 1.63H, Platelet Count 368, Total Bilirubin 0.2 Results/Orders Lab Results Laboratory Tests Test 04/12/19 21:20 Range/Units White Blood Count 8.0 4.3-11.0 10^3/uL Red Blood Count 4.72 4.35-5.85 10^6/uL Hemoglobin 13.5 11.5-16.0 G/DL Hematocrit 42 35-52 % Mean Corpuscular Volume 88 80-99 FL Mean Corpuscular Hemoglobin 29 25-34 PG Mean Corpuscular Hemoglobin Concent 33 32-36 G/DL Red Cell Distribution Width 14.9 H 10.0-14.5 % Platelet Count 368 130-400 10^3/uL Mean Platelet Volume 9.0 7.4-10.4 FL Neutrophils (%) (Auto) 57 42-75 % Lymphocytes (%) (Auto) 34 12-44 % Monocytes (%) (Auto) 6 0-12 % Eosinophils (%) (Auto) 2 0-10 % Basophils (%) (Auto) 1 0-10 % Neutrophils # (Auto) 4.6 1.8-7.8 X 10^3 Lymphocytes # (Auto) 2.8 1.0-4.0 X 10^3 Monocytes # (Auto) 0.5 0.0-1.0 X 10^3 Eosinophils # (Auto) 0.1 0.0-0.3 10^3/uL Basophils # (Auto) 0.1 0.0-0.1 10^3/uL Urine Color YELLOW Urine Clarity CLEAR Urine pH 7.0 5-9 Urine Specific [place] 1.020 1.016-1.022 Urine Protein 2+ H NEGATIVE Urine Glucose (UA) NEGATIVE NEGATIVE Urine Ketones NEGATIVE NEGATIVE Urine Nitrite NEGATIVE NEGATIVE Urine Bilirubin NEGATIVE NEGATIVE Urine Urobilinogen 0.2 NORMAL MG/DL Urine Leukocyte Esterase TRACE NEGATIVE Urine RBC (Auto) 1+ H NEGATIVE Urine RBC 0-2 /HPF Urine WBC 2-5 /HPF Urine Squamous Epithelial Cells 25-50 H /HPF Urine Crystals NONE /LPF Urine Bacteria NONE /HPF Urine Casts NONE /LPF Urine Mucus NEGATIVE /LPF Urine Culture Indicated NO Urine Test NEGATIVE NEGATIVE Sodium Level 139 135-145 MMOL/L Potassium Level 3.9 3.6-5.0 MMOL/L Chloride Level 100 98-107 MMOL/L Carbon Dioxide Level 22 21-32 MMOL/L Anion Gap 17 H 5-14 MMOL/L Blood Urea Nitrogen 14 7-18 MG/DL Creatinine 1.63 H 0.60-1.30 MG/DL Estimat Glomerular Filtration Rate 45 BUN/Creatinine Ratio 9 Glucose Level 129 H 70-105 MG/DL Calcium Level 9.0 8.5-10.1 MG/DL Corrected Calcium 9.2 8.5-10.1 MG/DL Total Bilirubin 0.2 0.1-1.0 MG/DL Aspartate Amino Transf (AST/SGOT) 28 5-34 U/L Alanine Aminotransferase (ALT/SGPT) 27 0-55 U/L Alkaline Phosphatase 84 40-136 U/L Total Protein 6.6 6.4-8.2 GM/DL Albumin 3.8 3.2-4.5 GM/DL Lipase 24 8-78 U/L Serum Test, Qualitative NEGATIVE NEGATIVE My Orders Orders - ENYART,EDISON E MD Ua Culture If Indicated (04/12/19 20:43) Hcg,Qualitative Urine (04/12/19 20:43) Comprehensive Metabolic Panel (04/12/19 20:58) Lipase (04/12/19 20:58) Hcg,Qualitative Serum (04/12/19 20:58) Ed Iv/Invasive Line Start (04/12/19 20:58) Cbc With Automated Diff (04/12/19 20:58) Ct Head Wo (04/12/19 20:58) Hydralazine Injection (Apresoline Inject (04/12/19 21:00) Rx-Acetaminophen/Codeine (Rx-Tylenol #3) (04/12/19 23:11) Medications Given in ED Current Medications Medications Dose Ordered Sig/Mikal Route Start Time Stop Time Status Last Admin Dose Admin Hydralazine HCl 10 mg ONCE ONCE IV 04/12/19 21:00 04/12/19 21:02 DC 04/12/19 21:25 10 MG Vital Signs/I&O 04/12/19 04/12/19 04/12/19 20:34 22:40 23:16 Temp 97.6 97.6 97.6 Pulse 100 103 103 Resp 20 20 20 B/P (MAP) 147/115 (126) 145/107 (120) 145/107 (120) Pulse Ox 95 95 95 O2 Delivery Room Air Capillary Refill : Less Than 3 Seconds Blood Pressure Mean: 126 Progress Note #1: Progress Note check labs and CT head to evaluate her kidney function and look for infection as well as see if she has any signs of intracranial hemorrhage or mass to cause her headache or pain. will try a dose of Hydralazine for her htn. Progress Note #2: Progress Note Labs do not show any acute changes from her baseline. Her Cr is at baseline compared to her regular labs previously in the system. She had no acute findings on her CT head and no bleeding seen. Reassured pt and reviewed test results. She then relates that within the last week or two she also had a tv fall and hit her head. This could be another reason for BABCOCK and nausea. She reports plain tylenol or tylenol #3 improves her pain usually. will discharge with T#3 take home pack and have her rest in cool dark room. Her BP is improved with Hydralazine. Counseled to follow up with pcp and cardiology Diagnostic Imaging Diagonstic Imaging: CT Plain Films/CT/US/NM/MRI: head Comments NAME: SAL PRIEST [facility] REC#: [id number] PT STATUS: REG ER : 1990 PHYSICIAN: EDISON CHAMBERLAIN MD ADMIT DATE: 04/12/19/ER FS Signed Date of Exam:04/12/19 CT HEAD WO INDICATION: Dizzy and with headache for two days. EXAMINATION: Noncontrast brain CT was performed. COMPARISON: 01/06/2019. FINDINGS: There are no extra-axial fluid collections. No intracranial hemorrhage. No intracranial mass or mass effect. No midline shift. The ventricles are normal in size and position. There is no focal parenchymal abnormality in the brain. Calvarial windows appear unremarkable. IMPRESSION: Negative noncontrast brain CT, no change from 01/06/2019. Dictated by: Dictated on workstation # [id number] Dict: 04/12/[id number] Trans: 04/12/192202 [facility] [phone] Interpreted by: GIL CANTU MD Electronically signed by: GIL CANTU MD 04/12/192202 Reviewed: Reviewed [place] Study (and radiologist reading) Departure Impression Primary Impression: Hypertension Qualified Codes: I10 - Essential (primary) hypertension Additional Impressions: Left flank pain Renal insufficiency Frontal headache Disposition: 01 HOME, SELF-CARE Condition: Stable Departure-Patient Inst. Decision time for Depature: 23:01 Referrals: NO,LOCAL PHYSICIAN (PCP/Family) Primary Care Physician Patient Instructions: Flank Pain (DC), Headache, Adult (DC), High Blood Pressure (DC) Add. Discharge Instructions: Follow up with clinic for continued problems and concerns Continue to take your medicine as prescribed for your blood pressure. Try to get back with Dr. Patterson and Cardiology about your blood pressure Try the Tylenol # 3 for pain, 1 pill up to every 8 hours as needed for pain All discharge instructions reviewed with patient and/or family. Voiced understanding. EDISON CHAMBERLAIN MD April 12, 2019 21:15
[2019-04-12 21:31] LABS: CLARITY,URINE CLEAR; COLOR,URINE YELLOW; GLUCOSE, URINE (UA) NEGATIVE (NEGATIVE); PROTEIN,URINE 2+ (NEGATIVE)
[2019-04-12 21:32] LABS: BILIRUBIN,URINE NEGATIVE (NEGATIVE); HCG,QUALITATIVE URINE NEGATIVE (NEGATIVE); HEMATOCRIT 42 % (35-52); HEMOGLOBIN 13.5 G/DL (11.5-16.0); KETONES,URINE NEGATIVE (NEGATIVE); LEUKOCYTE ESTERASE ,URINE TRACE (NEGATIVE); MEAN CORPUSCULAR HEMOGLOBIN 29 PG (25-34); NITRITE,URINE NEGATIVE (NEGATIVE); RBC,URINE 0-2 /HPF; SQUAMOUS EPITHELIAL CELL,UR 25-50 /HPF; UROBILINOGEN,URINE 0.2 MG/DL (NORMAL)
[2019-04-12 21:33] LABS: BASOPHILS # (AUTO) 0.1 10^3/uL (0.0-0.1); BASOPHILS % (AUTO) 1 % (0-10); EOSINOPHILS # (AUTO) 0.1 10^3/uL (0.0-0.3); EOSINOPHILS % (AUTO) 2 % (0-10); LYMPHOCYTES # (AUTO) 2.8 X 10^3 (1.0-4.0); LYMPHOCYTES % (AUTO) 34 % (12-44); MEAN CORPUSCULAR HGB CONC 33 G/DL (32-36); MEAN CORPUSCULAR VOLUME 88 FL (80-99); MONOCYTES # (AUTO) 0.5 X 10^3 (0.0-1.0); MONOCYTES % (AUTO) 6 % (0-12); NEUTROPHILS # (AUTO) 4.6 X 10^3 (1.8-7.8); NEUTROPHILS % (AUTO) 57 % (42-75); PLATELET COUNT 368 10^3/uL (130-400); RED CELL DISTRIBUTION WIDTH 14.9 % (10.0-14.5)
[2019-04-12 21:49] LABS: CREATININE SERUM 1.63 MG/DL (0.60-1.30); POTASSIUM 3.9 MMOL/L (3.6-5.0)
[2019-04-12 21:50] LABS: ALBUMIN 3.8 GM/DL (3.2-4.5); BILIRUBIN,TOTAL 0.2 MG/DL (0.1-1.0); TOTAL PROTEIN 6.6 GM/DL (6.4-8.2)
--- NOTE | 2019-04-12 22:03 | Diagnostic Imaging Report ---
INDICATION: Dizzy and with headache for two days. EXAMINATION: Noncontrast brain CT was performed. COMPARISON: 01/06/2019. FINDINGS: There are no extra-axial fluid collections. No intracranial hemorrhage. No intracranial mass or mass effect. No midline shift. The ventricles are normal in size and position. There is no focal parenchymal abnormality in the brain. Calvarial windows appear unremarkable. IMPRESSION: Negative noncontrast brain CT, no change from 01/06/2019. Dictated by: Dictated on workstation # [id number]
[2019-04-12 22:40] VITALS: BP 145/107
--- NOTE | 2019-04-12 23:09 | NUR ---
DOCTOR BULMARO IN TO SEE THE PATIENT.
[2019-04-12] MEDS ORDERED: RX-ACETAMINOPHEN/CODEINE TAB PPK #4 ONE (23:11)
[2019-04-12 23:16] VITALS: BP 145/107
== END 2019-04-12 23:19 | disposition home or self-care (01) ==
LOC: EDUNIT# 20:28 → ER FS 20:29
DX: I10 Essential (primary) hypertension (principal); N28.9 Disorder of kidney and ureter, unspecified; R51 Headache; R10.9 Unspecified abdominal pain; I25.2 Old myocardial infarction; I42.9 Cardiomyopathy, unspecified; K21.9 Gastro-esophageal reflux disease without esophagitis; F31.9 Bipolar disorder, unspecified; D64.9 Anemia, unspecified; F41.9 Anxiety disorder, unspecified; Z79.52 Long term (current) use of systemic steroids; Z87.820 Personal history of traumatic brain injury; Z95.810 Presence of automatic (implantable) cardiac defibrillator; Z98.890 Other specified postprocedural states; Z93.0 Tracheostomy status; Z87.01 Personal history of pneumonia (recurrent); Z87.09 Personal history of other diseases of the respiratory system; Z79.01 Long term (current) use of anticoagulants; Z86.73 Personal history of transient ischemic attack (TIA), and cerebral infarction without residual deficits; Z88.8 Allergy status to other drugs, medicaments and biological substances
CPT/HCPCS: 36415; 70450; 80053; 81000; 83690; 84703; 85025

== ENCOUNTER 2019-04-19 15:50 | Emergency (ER) | payer MEDICAID ==
[~2019-04-19] VITALS: Ht 160 cm; Wt 105.2 kg
--- NOTE | 2019-04-19 16:19 | ED Cardiac General ---
History of Present Illness General Chief Complaint: Cardiac/General Problems Stated Complaint: HEADACHE Nursing Triage Note: PT PRESENTS TO ED WITH COMPLAINTS OF HIGH BP, HEADACHES, AND GENERALIZED MALAISE. PT REPORTS SHE WAS SEEN AT THE ER IN [place] A COUPLE DAYS AGO BUT TOLD EVERYTHING CAME BACK OK. PT CURRENTLY DOESNT HAVE A PRIMARY DOCTOR BUT HAS BEEN TAKING PRESCRIPTIONS DIRECTED. Source: patient, family Exam Limitations: no limitations History of Present Illness Date Seen by Provider: April 19, 2019 Time Seen by Provider: 16:14 Initial Comments To ER with reports of dyspnea on exertion getting progressively worse over the past few weeks, intermittent chest pains (none currently). She also reports sensation of general malaise. No fevers or chills. She was seen at [place] emergency room a few nights ago for the same and states that she was told all of her blood work came back normal. She states that her blood pressure has been unusually elevated in about the 160/120 range, typically she runs 120/80. She has an extensive medical history including cardiac arrest/ventricular fibrillation on February 28, 2015, the agitation was seen on the tricuspid valve. She subsequently injured about an hour of CPR and sustained a hypoxic/toxic metabolic encephalopathy. She does also report some left flank pain. Timing/Duration: changing over time Severity: moderate Prior CP/Workup: pulmonary embolism Modifying Factors: worse with exercise NTG SL HOME IMPROVEMENT INSTALLER: No ASA po HOME IMPROVEMENT INSTALLER: No Associated Systoms: Malaise Allergies and Home Medications Allergies Coded Allergies: JIA Inhibitors (Verified Allergy, Severe, 04/12/19) ARB-Angiotensin Receptor Antagonist (Verified Allergy, Severe, 07/24/15) baclofen (Unverified Allergy, Unknown, 03/24/15) ON H&P phenazopyridine (Unverified Allergy, Unknown, 03/24/15) ON H&P Home Medications Albuterol Sulfate 8 Gm Hfa.aer.ad, 2 PUFF INH Q6H PRN for SHORTNESS OF BREATH, (Reported) Amlodipine Besylate 10 Mg Tablet, 10 MG PO DAILY, (Reported) Apixaban 5 Mg Tablet, 5 MG PO BID Prescribed by: RALPH DELCID on 11/01/181855 Azithromycin 250 Mg Tablet, 250 MG PO UD TAKE 2 TABLETS TODAY, THEN TAKE 1 TABLET DAILY FOR 4 MORE DAYS Prescribed by: NIK CELIS on 01/01/191830 Meloxicam 7.5 Mg Tablet, 7.5 MG PO Q12H PRN for elbow pain Prescribed by: DELIO ARIZA on 04/09/19 0125 Metoprolol Tartrate 50 Mg Tablet, 50 MG PO BID Prescribed by: FELECIA PATTERSON on 07/24/15 0841 Prednisone 10 Mg Tab.ds.pk, 10 MG PO UD Prescribed by: NIK CELIS on 01/01/19 1831 Venlafaxine HCl 150 Mg Tab.er.24, 150 MG PO DAILY, (Reported) Warfarin Sodium 4 Mg Tablet, 8 MG PO HS, (Reported) TAKES 2 (4MG) TABLETS Patient Home Medication List Home Medication List Reviewed: Yes Review of Systems Review of Systems Constitutional: see HPI; No chills, No fever EENTM: No Symptoms Reported Respiratory: See HPI; Denies Cough; SOA With Exertion Cardiovascular: See HPI, Chest Pain Gastrointestinal: No Symptoms Reported Genitourinary: No Symptoms Reported Musculoskeletal: no symptoms reported Psychiatric/Neurological: No Symptoms Reported Past Rmgoavw-Xixgln-Crycql Hx Patient Social History Alcohol Use: Denies Use Recreational Drug Use: No Smoking Status: Never a Smoker 2nd Hand Smoke Exposure: No Recent Foreign Travel: No Contact w/Someone Who Travel: No Recent Infectious Disease Expo: No Recent Hopitalizations: No Immunizations Up To Date Tetanus Booster (TDap): Unknown PED Vaccines UTD: Yes Date of Pneumonia Vaccine: Mar 21, 2015 Date of Influenza Vaccine: Aug 19, 2015 Seasonal Allergies Seasonal Allergies: No Past Medical History Surgeries: Yes (DEFIBRILLATOR PLACED 07/23/15. PEG TUBE--REMOVED, uterine ablation) Abdominal, Section, Defibrillator, Gallbladder, Tracheostomy Respiratory: Yes (ARDS-CODED; PNEUMOTHORAX 06/2015) Pneumonia, Chronic Bronchitis Currently Using CPAP: No Currently Using BIPAP: No Cardiac: Yes (PULMONARY EDEMA/CARDIAC CAUSE-R/T ATRIAL THROMBUS; CARDIAC ARREST;V-FIB ) Cardiomyopathy, Endocarditis, Valvular Heart Disease Neurological: Yes (encephalopathy-hypoxia, anoxic brain injury) Reproductive Disorders: No Sexually Transmitted Disease: No Genitourinary: Yes Renal Failure Gastrointestinal: Yes Gastroesophageal Reflux Musculoskeletal: Yes (GAIT DISTURBANCE) Endocrine: No HEENT: No Loss of Vision: Denies Hearing Impairment: Denies Cancer: No Psychosocial: Yes (per med record) Anxiety, Bipolar, Depression Integumentary: No Blood Disorders: Yes (ANEMIA) Family Medical History Patient reports no known family medical history. No Pertinent Family Hx Physical Exam Vital Signs Vital Signs - First Documented 04/19/19 15:56 Temp 96.8 Pulse 84 Resp 20 B/P (MAP) 153/103 (120) Pulse Ox 96 Capillary Refill : Less Than 3 Seconds Height, Weight, BMI Height: 5'3.00" Weight: 232lbs. 0.1oz. 105.367748lr; 28.34 BMI Method:Stated General Appearance: No Apparent Distress, WD/WN, Obese HEENT: PERRL/EOMI, TMs Normal, Normal ENT Inspection Neck: Full Range of Motion, Normal Inspection; No JVD Respiratory: No Accessory Muscle Use, No Respiratory Distress; No Accessory Muscle Use, No Crackles, No Stridor, No Wheezing Cardiovascular: Regular Rate, Rhythm, Normal Peripheral Pulses Gastrointestinal: Normal Bowel Sounds, Non Tender, Soft Extremity: No Pedal Edema Neurologic/Psychiatric: Alert, Oriented x3, Other (answers questions appropriately but speech is consistent with her history of anoxic brain injury, a bit poor and with some dysarthria.) Progress/Results/Core Measures Results/Orders Lab Results Laboratory Tests Test 04/19/19 16:20 04/19/19 16:30 Range/Units White Blood Count 8.2 4.3-11.0 10^3/uL Red Blood Count 4.85 4.35-5.85 10^6/uL Hemoglobin 13.6 11.5-16.0 G/DL Hematocrit 41 35-52 % Mean Corpuscular Volume 85 80-99 FL Mean Corpuscular Hemoglobin 28 25-34 PG Mean Corpuscular Hemoglobin Concent 33 32-36 G/DL Red Cell Distribution Width 15.2 H 10.0-14.5 % Platelet Count 369 130-400 10^3/uL Mean Platelet Volume 8.8 7.4-10.4 FL Neutrophils (%) (Auto) 48 42-75 % Lymphocytes (%) (Auto) 42 12-44 % Monocytes (%) (Auto) 8 0-12 % Eosinophils (%) (Auto) 2 0-10 % Basophils (%) (Auto) 0 0-10 % Neutrophils # (Auto) 3.9 1.8-7.8 X 10^3 Lymphocytes # (Auto) 3.5 1.0-4.0 X 10^3 Monocytes # (Auto) 0.6 0.0-1.0 X 10^3 Eosinophils # (Auto) 0.1 0.0-0.3 10^3/uL Basophils # (Auto) 0.0 0.0-0.1 10^3/uL Sodium Level 140 135-145 MMOL/L Potassium Level 4.2 3.6-5.0 MMOL/L Chloride Level 108 H 98-107 MMOL/L Carbon Dioxide Level 20 L 21-32 MMOL/L Anion Gap 12 5-14 MMOL/L Blood Urea Nitrogen 20 H 7-18 MG/DL Creatinine 1.80 H 0.60-1.30 MG/DL Estimat Glomerular Filtration Rate 40 BUN/Creatinine Ratio 11 Glucose Level 127 H 70-105 MG/DL Calcium Level 9.6 8.5-10.1 MG/DL Corrected Calcium 9.9 8.5-10.1 MG/DL Magnesium Level 1.8 1.8-2.4 MG/DL Total Bilirubin 0.2 0.1-1.0 MG/DL Aspartate Amino Transf (AST/SGOT) 14 5-34 U/L Alanine Aminotransferase (ALT/SGPT) 14 0-55 U/L Alkaline Phosphatase 76 40-136 U/L Troponin I < 0.028 <0.028 NG/ML Total Protein 6.6 6.4-8.2 GM/DL Albumin 3.6 3.2-4.5 GM/DL Serum Test, Qualitative NEGATIVE NEGATIVE Urine Color YELLOW Urine Clarity CLEAR Urine pH 5 5-9 Urine Specific [place] 1.025 H 1.016-1.022 Urine Protein 4+ NEGATIVE Urine Glucose (UA) NEGATIVE NEGATIVE Urine Ketones NEGATIVE NEGATIVE Urine Nitrite NEGATIVE NEGATIVE Urine Bilirubin NEGATIVE NEGATIVE Urine Urobilinogen NORMAL NORMAL MG/DL Urine Leukocyte Esterase 1+ H NEGATIVE Urine RBC (Auto) 1+ H NEGATIVE Urine RBC NONE /HPF Urine WBC 2-5 /HPF Urine Squamous Epithelial Cells 10-25 H /HPF Urine Crystals NONE /LPF Urine Bacteria MODERATE H /HPF Urine Casts NONE /LPF Urine Mucus NEGATIVE /LPF Urine Culture Indicated NO Urine Opiates Screen NEGATIVE NEGATIVE Urine Oxycodone Screen NEGATIVE NEGATIVE Urine Methadone Screen NEGATIVE NEGATIVE Urine Propoxyphene Screen NEGATIVE NEGATIVE Urine Barbiturates Screen NEGATIVE NEGATIVE Ur Tricyclic Antidepressants Screen POSITIVE H NEGATIVE Urine Phencyclidine Screen NEGATIVE NEGATIVE Urine Amphetamines Screen NEGATIVE NEGATIVE Urine Methamphetamines Screen NEGATIVE NEGATIVE Urine Benzodiazepines Screen NEGATIVE NEGATIVE Urine Cocaine Screen NEGATIVE NEGATIVE Urine Cannabinoids Screen NEGATIVE NEGATIVE My Orders Orders - LISA MARCELINO APRN Cbc With Automated Diff (04/19/19 16:06) Erythrocyte Sedimentation Rate (04/19/19 16:06) Comprehensive Metabolic Panel (04/19/19 16:06) Ua Culture If Indicated (04/19/19 16:06) Drug Screen Stat (Urine) (04/19/19 16:06) Troponin I (04/19/19 16:06) BNP (04/19/19 16:06) Chest Pa/Lat (2 View) (04/19/19 16:06) Magnesium (04/19/19 16:06) Protime With Inr (04/19/19 16:06) Hcg,Qualitative Serum (04/19/19 16:06) Clonidine Tablet (Catapres Tablet) (04/19/19 16:30) Medications Given in ED Current Medications Medications Dose Ordered Sig/Mikal Route Start Time Stop Time Status Last Admin Dose Admin Clonidine HCl 0.1 mg ONCE ONCE PO 04/19/19 16:30 04/19/19 16:31 DC 04/19/19 16:54 0.1 MG Vital Signs/I&O 04/19/19 15:56 Temp 96.8 Pulse 84 Resp 20 B/P (MAP) 153/103 (120) Pulse Ox 96 Blood Pressure Mean: 120 Diagnostic Imaging Diagonstic Imaging: Xray Plain Films/CT/US/NM/MRI: chest Comments NAME: SAL [facility]ST [facility] REC#: [id number] PT STATUS: REG ER : 1990 PHYSICIAN: LISA MARCELINO APRN ADMIT DATE: 04/19/19/ER Draft Date of Exam:04/19/19 CHEST PA/LAT (2 VIEW) EXAMINATION: Chest (PA and lateral). CLINICAL INDICATION: 28-year-old female, headache. Left-sided chest pain. COMPARISON: January 06, 2019. FINDINGS: There is a left-sided cardiac assist device with leads. The leads appear intact. Right upper quadrant surgical clips likely relate to prior cholecystectomy. Heart size and mediastinal contours are unremarkable. There is no identified pneumothorax. There is no pleural effusion. There is no identified focal airspace consolidation. There is no identified displaced rib fracture. IMPRESSION: No identified acute cardiopulmonary abnormality. Dictated on workstation # [id number] Dict: 04/19/191703 Trans: 04/19/191706 [facility] [id number] Interpreted by: SVEN KNOTT MD Electronically signed by: Departure Impression Primary Impression: CHF (congestive heart failure) Qualified Codes: I50.9 - Heart failure, unspecified Additional Impression: Malaise and fatigue Disposition: HOME, SELF-CARE Condition: Stable Departure-Patient Inst. Decision time for Depature: 17:06 Referrals: [facility] (PCP/Family) Primary Care Physician Patient Instructions: Generalized Weakness Add. Discharge Instructions: 1. Call Dr. Patterson tomorrow to make an appointment to be seen. Call [facility] to make an appointment with whichever provider can see you soonest tomorrow. Continue current medications, if you are still taking the meloxicam anti-inflammatory for elbow pain, U should stop taking that. All discharge i nstructions reviewed with patient and/or family. Voiced understanding. Copy Copies To 1: FELECIA PATTERSON MD, PETER J APRN April 19, 2019 16:19
[2019-04-19] MEDS ORDERED: cloNIDine 0.1 MG (CATAPRES) TAB PO ONE (16:30)
[2019-04-19 16:32] LABS: BASOPHILS % (AUTO) 0 % (0-10); EOSINOPHILS # (AUTO) 0.1 10^3/uL (0.0-0.3); EOSINOPHILS % (AUTO) 2 % (0-10); HEMATOCRIT 41 % (35-52); HEMOGLOBIN 13.6 G/DL (11.5-16.0); LYMPHOCYTES # (AUTO) 3.5 X 10^3 (1.0-4.0); LYMPHOCYTES % (AUTO) 42 % (12-44); MEAN CORPUSCULAR HEMOGLOBIN 28 PG (25-34); MEAN CORPUSCULAR HGB CONC 33 G/DL (32-36); MEAN CORPUSCULAR VOLUME 85 FL (80-99); MEAN PLATELET VOLUME 8.8 FL (7.4-10.4); MONOCYTES # (AUTO) 0.6 X 10^3 (0.0-1.0); MONOCYTES % (AUTO) 8 % (0-12); NEUTROPHILS # (AUTO) 3.9 X 10^3 (1.8-7.8); NEUTROPHILS % (AUTO) 48 % (42-75); PLATELET COUNT 369 10^3/uL (130-400); RED CELL DISTRIBUTION WIDTH 15.2 % (10.0-14.5); WHITE BLOOD COUNT 8.2 10^3/uL (4.3-11.0)
[2019-04-19 16:34] LABS: BILIRUBIN,URINE NEGATIVE (NEGATIVE); CLARITY,URINE CLEAR; COLOR,URINE YELLOW; GLUCOSE, URINE (UA) NEGATIVE (NEGATIVE); KETONES,URINE NEGATIVE (NEGATIVE); LEUKOCYTE ESTERASE ,URINE 1+ (NEGATIVE); NITRITE,URINE NEGATIVE (NEGATIVE); PH,URINE 5 (5-9); PROTEIN,URINE 4+ (NEGATIVE); UROBILINOGEN,URINE NORMAL (NORMAL)
[2019-04-19 16:41] LABS: BACTERIA,URINE MODERATE /HPF
[2019-04-19 16:42] LABS: INR 0.9 (0.8-1.4); PROTHROMBIN TIME PATIENT 12.6 SEC (12.2-14.7)
[2019-04-19 16:49] LABS: ALANINE AMINOTRANSFERASE 14 U/L (0-55); ALBUMIN 3.6 GM/DL (3.2-4.5); ALKALINE PHOSPHATASE 76 U/L (40-136); BILIRUBIN,TOTAL 0.2 MG/DL (0.1-1.0); BUN/CREATININE RATIO 11; CALCIUM 9.6 MG/DL (8.5-10.1); CARBON DIOXIDE 20 MMOL/L (21-32); CHLORIDE 108 MMOL/L (98-107); GFR ESTIMATED 40; GLUCOSE 127 MG/DL (70-105); MAGNESIUM 1.8 MG/DL (1.8-2.4); POTASSIUM 4.2 MMOL/L (3.6-5.0); SODIUM 140 MMOL/L (135-145); TOTAL PROTEIN 6.6 GM/DL (6.4-8.2)
[2019-04-19 16:50] LABS: AMPHETAMINE SCREEN, URINE NEGATIVE (NEGATIVE); BARBITURATE SCREEN URINE NEGATIVE (NEGATIVE); BENZODIAZEPINES SCREEN URINE NEGATIVE (NEGATIVE); CANNABINOID SCREEN, URINE NEGATIVE (NEGATIVE); COCAINE SCREEN URINE NEGATIVE (NEGATIVE); METHADONE STAT NEGATIVE (NEGATIVE); METHAMPHETAMINE SCREEN URINE S NEGATIVE (NEGATIVE); OPIATE SCREEN URINE NEGATIVE (NEGATIVE); OXYCODONE STAT NEGATIVE (NEGATIVE); PROPOXYPHENE STAT NEGATIVE (NEGATIVE); TRICYCLIC ANTIDEPRESSANTS SCRE POSITIVE (NEGATIVE)
--- NOTE | 2019-04-19 17:08 | Diagnostic Imaging Report ---
EXAMINATION: Chest (PA and lateral). CLINICAL INDICATION: 28-year-old female, headache. Left-sided chest pain. COMPARISON: January 06, 2019. FINDINGS: There is a left-sided cardiac assist device with leads. The leads appear intact. Right upper quadrant surgical clips likely relate to prior cholecystectomy. Heart size and mediastinal contours are unremarkable. There is no identified pneumothorax. There is no pleural effusion. There is no identified focal airspace consolidation. There is no identified displaced rib fracture. IMPRESSION: No identified acute cardiopulmonary abnormality. Dictated by: Dictated on workstation # [id number]
[2019-04-19 17:35] LABS: ERYTHROCYTE SEDIMENTATION RATE 29 MM/HR (0-20)
[2019-04-19] MEDS ORDERED: LABETALOL HCL 20 MG/4 ML VIAL IV ONE (18:00)
[2019-04-19] MEDS ORDERED: fentaNYL INJECTION 100 MCG/2 ML AMP IVP ONE (18:00)
[2019-04-19 18:32] VITALS: BP 114/82
--- OUTSIDE RECORDS SUMMARY | 2019-04-19 22:58 | XMS REPORT | Clinical Summary ---
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 If you d o not see the information that you expected, contact Release of Information in [facility] hospital Information Management department at [phone] for further assistan ce in locating additional records.[facility] Allergies Comments Active Allergy Reactions Severity [...] Comments PHYSICAL (COMPREHENSIVE) 1995 EXAM DTAP/TDAP VACCINES ( - 2006 Tdap) CERVICAL CANCER SCREENING 2018 INFLUENZA VACCINE 08/28/2019 HIV SCREENING Completed 12/09/2015 Results Not on filefrom Last 3 Months Insurance Type Payer Benefit Subscriber ID Effective Phone Address Plan / Dates Group Medicaid [facility] MEDICAID [facility] xxxxxxxxxxx [id number] [place] [place] ([place]) [place] [address] Advance Directives Patient has advance care planning documents on file. For more information, palak thomas contact: [address] [phone]
--- OUTSIDE RECORDS SUMMARY | 2019-04-19 23:01 | XMS REPORT | Continuity of Care Document ---
Author Organization Unknown Address Unknown Allergies Active Description Code Type Severity Reaction Onset Reported/Identified Relationship to Patient Clinical Status Yes bacl bacl Moderate N/A 03/21/2015 Yes baclofen [id number] Drug Allergy Unknown N/A 03/24/2015 Yes phenazopyridine [id number] Drug Allergy Unknown N/A 03/24/2015 Yes ARB-Angiotensin Receptor Antagonist [id number] Drug Allergy Severe N/A 07/24/2015 Yes JIA Inhibitors [id number] Drug Allergy Severe N/A 04/12/2019 Medications There is no data. Problems Date Dx Coded Attending Type Code Diagnosis Diagnosed By 03/26/2015 LISSET DIETRICH MD Ot 285.9 ANEMIA NOS 03/26/2015 LISSET DIETRICH MD Ot 300.00 ANXIETY STATE NOS 03/26/2015 LISSET DIETRICH MD Ot 310.89 OTH SPEC NONPSYCHOTIC MENTAL DISORDERS F 03/26/2015 LISSET DIETRICH MD Ot 348.1 ANOXIC BRAIN DAMAGE 03/26/2015 LISSET DIETRICH MD Ot 348.31 METABOLIC ENCEPHALOPATHY 03/26/2015 LISSET DIETRICH MD Ot 424.90 ENDOCARDITIS NOS 03/26/2015 LISSET DIETRICH MD Ot 425.4 PRIM CARDIOMYOPATHY NEC 03/26/2015 LISSET DIETRICH MD Ot 428.0 CONGESTIVE HEART FAILURE NOS 03/26/2015 ILSSET DIETRICH MD Ot 429.89 ILL-DEFINED HRT DIS NEC 03/26/2015 LISSET DIETRICH MD Ot 530.81 ESOPHAGEAL REFLUX 03/26/2015 LISSET DIETRICH MD Ot 781.2 ABNORMALITY OF GAIT 03/26/2015 LISSET DIETRICH MD Ot 787.20 DYSPHAGIA, UNSPECIFIED 03/26/2015 LISSET DIETRICH MD E Ot V57.89 REHABILITATION PROC NEC 03/26/2015 LISSET DIETRICH MD Ot V58.61 ANTICOAGULANTS,LT,CURRENT USE 03/26/2015 LISSET DIETRICH MD Ot 285.9 03/26/2015 DIETRICH MD, LISSET E Ot 300.00 03/26/2015 KAUR MAZARIEGOS, [...] A Ot 348.31 03/31/2015 GELLENDER DO, APRIL A Ot 401.9 03/31/2015 GELLENDER DO, APRIL Guthrie [...] LISSET E Ot 424.90 04/12/2015 KAUR MAZARIEGOS, LISSTE E Ot 425.4 04/12/2015 KAUR MAZARIEGOS, LISSET [...] KAUR MAZARIEGOS, LISSET E Ot 530.81 04/12/2015 KARU MAZARIEGOS, LISSTE E Ot 781.2 04/12/2015 KAUR MAZARIEGOS, LISSET [...] USE 07/25/2015 BLANCO BERMAN Ot 401.9 07/25/2015 BLANCO BERMAN Ot 425.4 07/25/2015 NERISSA LAURA, BLANCO Mohan Ot 427.5 07/25/2015 BLANCO BERMAN Ot 428.0 07/29/2015 GELLENDER DO, APRIL Guthrie [...] DO, APRIL A Ot V12.53 07/29/2015 CATINA TINSLEY APRIL A Ot V45.02 07/29/2015 GELLENGALVAN APRIL A Ot V58.61 08/09/2015 KRISTA MAZARIEGOS, ORESTES Guthrie Ot 724.5 BACKACHE NOS 08/09/2015 KRISTA MAZARIEGOS, ORESTES Guthrie Ot 729.5 PAIN IN LIMB 08/09/2015 KRISTA MAZARIEGOS, ORESTES Guthrie Ot V45.02 AUTO IMPLANTABLE CARDIAC DEFIBRILLATOR I 08/24/2015 RALPH LÓPEZ MD Ot 300.00 ANXIETY STATE NOS 08/24/2015 RALPH LÓPEZ MD Ot 348.1 ANOXIC BRAIN DAMAGE 08/24/2015 RALPH LÓPEZ MD Ot 425.4 PRIM CARDIOMYOPATHY NEC 08/24/2015 RALPH LÓPEZ MD Ot 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 08/24/2015 RALPH LÓPEZ MD, Ot V58.61 ANTICOAGULANTS,LT,CURRENT USE 09/01/2015 FELECIA FORTUNE MD Ot 397.0 09/01/2015 FELECIA FORTUNE MD Ot 401.9 09/01/2015 FELECIA FORTUNE MD Ot 425.4 09/01/2015 FELECIA FORTUNE MD Ot 428.0 09/04/2015 RALPH LÓPEZ MD Ot 300.00 09/04/2015 RALPH LÓPEZ MD Ot 348.1 09/04/2015 ARLPH LÓPEZ MD Ot 425.4 09/04/2015 RALPH LÓPEZ [...] ANOXIC BRAIN DAMAGE, NOT ELSEWHERE CLASS 03/17/2016 BLANCO BERMAN Ot I10 ESSENTIAL (PRIMARY) HYPERTENSION 03/17/2016 NERISSA LAURA BLANCO K Ot I50.1 LEFT VENTRICULAR FAILURE 03/17/2016 NERISSA LAURA BLANCO K Ot R09.2 RESPIRATORY ARREST 01/12/2018 NERISSA LAURA BLANCO K Ot 401.9 HYPERTENSION NOS 01/12/2018 BLANCO BERMAN Ot 425.4 PRIM CARDIOMYOPATHY NEC 01/12/2018 BLANCO BERMAN Ot 427.5 CARDIAC ARREST 01/12/2018 BLANCO BERMAN Ot 428.0 CONGESTIVE HEART FAILURE NOS 01/12/2018 FELECIA FORTUNE MD Ot 397.0 TRICUSPID VALVE DISEASE 01/12/2018 FELECIA FORTUNE MD Ot 401.9 HYPERTENSION NOS 01/12/2018 TONG MAZARIEGOS, [...] CARDIOMYOPATHY, UNSPECIFIED 08/05/2018 NIK CELIS Ot K21.9 GASTRO- ESOPHAGEAL REFLUX DISEASE WITHOUT 08/05/2018 NIK CELIS Ot [...] INITIAL ENCOUNTER 08/05/2018 NIK CELIS Ot Z79.01 ABALONE FISHERMAN (CURRENT) USE OF ANTICOAGULANT 08/05/2018 NIK CELIS Ot Z79.51 ABALONE FISHERMAN (CURRENT) USE OF INHALED STERO 08/05/2018 NIK CELIS Ot Z87.01 PERSONAL HISTORY OF PNEUMONIA (RECURRENT 08/05/2018 NIK CELIS Ot Z87.891 PERSONAL HISTORY OF NICOTINE DEPENDENCE 08/05/2018 PEDRO CELISIS Ot Z88.8 ALLERGY STATUS TO OTH DRUG/MEDS/BIOL SUB 08/05/2018 NIK CELIS Ot Z93.0 TRACHEOSTOMY STATUS 08/05/2018 NIK CELIS Ot Z95.810 PRESENCE OF AUTOMATIC (IMPLANTABLE) CARD 08/05/2018 NIK CELIS Ot Z98.890 OTHER SPECIFIED POSTPROCEDURAL STATES 08/08/2018 NIK CELIS Ot F31.9 BIPOLAR DISORDER, UNSPECIFIED 08/08/2018 PEDRO CELISIS Ot F41.9 ANXIETY DISORDER, UNSPECIFIED 08/08/2018 NIK CELIS Ot G89.29 OTHER CHRONIC PAIN 08/08/2018 NIK CELIS Ot I42.9 CARDIOMYOPATHY, UNSPECIFIED 08/08/2018 PEDRO CELISIS Ot K21.9 GASTRO- ESOPHAGEAL REFLUX DISEASE WITHOUT 08/08/2018 PEDRO CELISIS Ot M25.571 PAIN IN RIGHT ANKLE AND JOINTS OF RIGHT 08/08/2018 NIK CELIS Ot M54.5 LOW BACK PAIN 08/08/2018 NIK CELIS Ot T20.45XA CORROSION OF UNSPECIFIED DEGREE OF SCALP 08/08/2018 NIK CELIS Ot T32.0 CORROSIONS INVOLVING LESS THAN 10% OF DEREK 08/08/2018 NIK CELIS Ot 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, UNDETERM 08/08/2018 PEDRO CELISIS Ot W19.XXXA UNSPECIFIED FALL, INITIAL ENCOUNTER 08/08/2018 NIK CELIS Ot Z79.01 ABALONE FISHERMAN (CURRENT) USE OF ANTICOAGULANT 08/08/2018 NIK CELIS Ot Z79.51 PRISON (CURRENT) USE OF INHALED STERO 08/08/2018 NIK CELIS Ot Z87.01 PERSONAL HISTORY OF PNEUMONIA (RECURRENT 08/08/2018 NIK CELIS Ot Z87.891 PERSONAL HISTORY OF NICOTINE DEPENDENCE 08/08/2018 NIK CELIS Ot Z88.8 ALLERGY STATUS TO OTH DRUG/MEDS/BIOL SUB 08/08/2018 LALITA NIK Ot Z93.0 TRACHEOSTOMY STATUS 08/08/2018 LALITAPEDROIS Ot Z95.810 PRESENCE OF AUTOMATIC (IMPLANTABLE) CARD 08/08/2018 NIK CELIS Ot Z98.890 OTHER SPECIFIED POSTPROCEDURAL STATES 10/24/2018 FELECIA FORTUNE MD 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, AORTIC 10/24/2018 FELECIA FORTUNE MD, Ot I10 ESSENTIAL (PRIMARY) HYPERTENSION 10/24/2018 FELECIA FORTUNE MD, Ot I25.2 OLD MYOCARDIAL INFARCTION 10/24/2018 FELECIA FORTUNE MD, Ot I42.9 CARDIOMYOPATHY, UNSPECIFIED 10/24/2018 FELECIA FORTUNE MD, Ot R00.1 BRADYCARDIA, UNSPECIFIED 10/24/2018 FELECIA FORTUNE MD, Ot Z79.01 ABALONE FISHERMAN (CURRENT) USE OF ANTICOAGULANT 11/01/2018 RALPH LÓPEZ MD Ot D64.9 ANEMIA, UNSPECIFIED 11/01/2018 RALPH LÓPEZ MD Ot F31.9 BIPOLAR DISORDER, UNSPECIFIED 11/01/2018 RALPH LÓPEZ MD, Ot F41.9 ANXIETY DISORDER, UNSPECIFIED 11/01/2018 RALPH LÓPEZ MD Ot I12.9 HYPERTENSIVE CHRONIC KIDNEY DISEASE W ST 11/01/2018 RALPH LÓPEZ MD Ot I16.0 HYPERTENSIVE URGENCY 11/01/2018 RALPH LÓPEZ MD, Ot I25.2 OLD MYOCARDIAL INFARCTION 11/01/2018 RALPH [...] LÓPEZ MD, Ot R51 HEADACHE 11/01/2018 RALPH LÓPEZ MD, Ot Z79.01 PRISON (CURRENT) USE OF ANTICOAGULANT 11/01/2018 RALPH LÓPEZ MD Ot Z79.51 PRISON (CURRENT) USE OF INHALED STERO 11/01/2018 RALPH [...] TO OTH DRUG/MEDS/BIOL SUB 11/01/2018 RALPH LÓPEZ MD, Ot Z93.0 TRACHEOSTOMY STATUS 11/01/2018 RALPH LÓPEZ MD, Ot Z95.810 PRESENCE OF AUTOMATIC (IMPLANTABLE) CARD 11/01/2018 RALPH LÓPEZ MD, Ot Z98.890 OTHER SPECIFIED POSTPROCEDURAL STATES 11/03/2018 RALPH LÓPEZ MD, Ot D64.9 ANEMIA, UNSPECIFIED 11/03/2018 RALPH LÓPEZ MD, Ot F31.9 BIPOLAR DISORDER, UNSPECIFIED 11/03/2018 RALPH LÓPEZ MD, Ot F41.9 ANXIETY DISORDER, UNSPECIFIED 11/03/2018 RALPH LÓPEZ MD, Ot I12.9 HYPERTENSIVE CHRONIC KIDNEY DISEASE W ST 11/03/2018 RALPH LÓPEZ MD, Ot I16.0 HYPERTENSIVE URGENCY 11/03/2018 RALPH LÓPEZ [...] MD, Ot R51 HEADACHE 11/03/2018 RALPH LÓPEZ MD Ot Z79.01 PRISON (CURRENT) USE OF ANTICOAGULANT 11/03/2018 RALPH LÓPEZ MD Ot Z79.51 PRISON (CURRENT) USE OF INHALED STERO 11/03/2018 RALPH [...] OF AUTOMATIC (IMPLANTABLE) CARD 11/03/2018 RALPH LÓPEZ MD, Ot Z98.890 OTHER SPECIFIED POSTPROCEDURAL STATES 11/09/2018 [...] HEADACHE 11/09/2018 RALPH LÓPEZ MD, Ot Z79.01 PRISON (CURRENT) USE OF ANTICOAGULANT 11/09/2018 RALPH LÓPEZ MD Ot Z79.51 ABALONE FISHERMAN (CURRENT) USE OF INHALED STERO 11/09/2018 RALPH [...] OR CH 01/01/2019 NIK CELIS Ot K21.9 GASTRO- ESOPHAGEAL REFLUX DISEASE WITHOUT 01/01/2019 NIK CELIS Ot R05 COUGH 01/01/2019 NIK CELIS Ot Z79.01 ABALONE FISHERMAN (CURRENT) USE OF ANTICOAGULANT 01/01/2019 NIK CELIS Ot Z79.51 ABALONE FISHERMAN (CURRENT) USE OF INHALED STERO 01/01/2019 NIK CELIS Ot Z87.01 PERSONAL HISTORY OF PNEUMONIA (RECURRENT 01/01/2019 NIK CELIS Ot Z87.448 PERSONAL HISTORY OF OTHER DISEASES OF UR 01/01/2019 NIK CELIS Ot Z87.820 PERSONAL HISTORY OF TRAUMATIC BRAIN INJU 01/01/2019 NIK CELIS Ot Z87.891 PERSONAL HISTORY OF NICOTINE DEPENDENCE 01/01/2019 NIK CELIS Ot Z88.8 ALLERGY STATUS TO [facility] DRUG/MEDS/BIOL SUB 01/01/2019 NIK CELIS Ot [...] UNSPECIFIED 01/05/2019 FELECIA FORTUNE MD Ot Z79.01 PRISON (CURRENT) USE OF ANTICOAGULANT 01/06/2019 BLANCO BERMAN [...] THROMBOSIS, NOT ELSEWHERE C 01/06/2019 FELECIA FORTUNE MD, 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, AORTIC 01/06/2019 FELECIA FORTUNE MD Ot I10 ESSENTIAL (PRIMARY) HYPERTENSION 01/06/2019 FELECIA OFRTUNE MD, Ot I25.2 OLD MYOCARDIAL INFARCTION 01/06/2019 FELECIA FORTUNE MD, Ot I42.9 CARDIOMYOPATHY, UNSPECIFIED 01/06/2019 FELECIA FORTUNE MD Ot R00.1 BRADYCARDIA, UNSPECIFIED 01/06/2019 FELECIA FORTUNE MD, Ot Z79.01 PRISON (CURRENT) USE OF ANTICOAGULANT 01/06/2019 FEDE AMARO MD, Ot D64.9 ANEMIA, UNSPECIFIED 01/06/2019 FEDE AMARO MD Ot F31.9 BIPOLAR DISORDER, UNSPECIFIED 01/06/2019 FEDE AMARO MD, Ot F41.9 ANXIETY DISORDER, UNSPECIFIED 01/06/2019 FEDE AMARO MD Ot I25.2 OLD MYOCARDIAL INFARCTION 01/06/2019 FEDE AMARO MD Ot I42.9 CARDIOMYOPATHY, UNSPECIFIED 01/06/2019 FEDE AMARO MD Ot K21.9 GASTRO-ESOPHAGEAL REFLUX DISEASE WITHOUT 01/06/2019 FEDE AMARO MD Ot R07.89 OTHER CHEST PAIN 01/06/2019 FEDE AMARO MD Ot S29.011A STRAIN OF MUSCLE AND TENDON OF FRONT WAL 01/06/2019 FEDE AMARO MD Ot W00.9XXA UNSPECIFIED FALL DUE TO ICE AND SNOW, IN 01/06/2019 FEDE AMARO MD, Ot Z79.01 ABALONE FISHERMAN (CURRENT) USE OF ANTICOAGULANT 01/06/2019 FEDE AMARO MD, Ot Z79.51 ABALONE FISHERMAN (CURRENT) USE OF INHALED STERO 01/06/2019 FEDE AMARO MD, Ot Z79.52 ABALONE FISHERMAN (CURRENT) USE OF SYSTEMIC STER 01/06/2019 FEDE AMARO MD, Ot Z86.711 PERSONAL HISTORY OF PULMONARY EMBOLISM 01/06/2019 FEDE AMARO MD, Ot Z87.01 PERSONAL HISTORY OF PNEUMONIA (RECURRENT 01/06/2019 FEDE AMARO MD, Ot Z87.09 PERSONAL HISTORY OF OTHER DISEASES OF TH 01/06/2019 FEDE AMARO MD, Ot Z87.448 PERSONAL HISTORY OF OTHER DISEASES OF UR 01/06/2019 FEDE AMARO MD, Ot Z87.820 PERSONAL HISTORY OF TRAUMATIC BRAIN INJU 01/06/2019 FEDE AMARO MD, Ot Z88.8 ALLERGY STATUS TO [facility] DRUG/MEDS/BIOL SUB 01/06/2019 FEDE AMARO MD, Ot Z93.0 TRACHEOSTOMY STATUS 01/06/2019 FEDE AMARO MD, Ot Z95.810 PRESENCE OF AUTOMATIC (IMPLANTABLE) CARD 01/06/2019 FEDE AMARO MD Ot Z98.890 OTHER SPECIFIED POSTPROCEDURAL STATES 01/07/2019 NIK CELIS Ot F31.9 BIPOLAR DISORDER, UNSPECIFIED 01/07/2019 NIK CELIS Ot F41.9 ANXIETY DISORDER, UNSPECIFIED 01/07/2019 NIK CELIS Ot I42.9 CARDIOMYOPATHY, UNSPECIFIED 01/07/2019 NIK CELIS Ot J40 BRONCHITIS, NOT SPECIFIED ACUTE OR CH 01/07/2019 NIK CELIS Ot K21.9 GASTRO- ESOPHAGEAL REFLUX DISEASE WITHOUT 01/07/2019 NIK CELIS Ot R05 COUGH 01/07/2019 NIK CELIS Ot Z79.01 PRISON (CURRENT) USE OF ANTICOAGULANT 01/07/2019 NIK CELIS Ot Z79.51 ABALONE FISHERMAN (CURRENT) USE OF INHALED STERO 01/07/2019 NIK CELIS Ot Z87.01 PERSONAL HISTORY OF PNEUMONIA (RECURRENT 01/07/2019 PEDRO CELISIS Ot Z87.448 PERSONAL HISTORY OF OTHER DISEASES OF UR 01/07/2019 LALITA NIK Ot Z87.820 PERSONAL HISTORY OF TRAUMATIC BRAIN INJU 01/07/2019 PEDRO CELISIS Ot Z87.891 PERSONAL HISTORY OF NICOTINE DEPENDENCE 01/07/2019 PEDRO CELISIS Ot Z88.8 ALLERGY STATUS TO OTH DRUG/MEDS/BIOL SUB 01/07/2019 LALITA NIK Ot Z93.0 TRACHEOSTOMY STATUS 01/07/2019 PEDRO CELISIS Ot Z95.810 PRESENCE OF AUTOMATIC (IMPLANTABLE) CARD 01/07/2019 PEDRO CELISIS Ot Z98.890 OTHER SPECIFIED POSTPROCEDURAL STATES 01/09/2019 FEDE AMARO MD, Ot D64.9 ANEMIA, UNSPECIFIED 01/09/2019 FEDE AMARO MD, Ot F31.9 BIPOLAR DISORDER, UNSPECIFIED 01/09/2019 FEDE AMARO MD, Ot F41.9 ANXIETY DISORDER, UNSPECIFIED 01/09/2019 FEDE AMARO MD, Ot I25.2 OLD MYOCARDIAL INFARCTION 01/09/2019 FEDE AMARO MD, Ot I42.9 CARDIOMYOPATHY, UNSPECIFIED 01/09/2019 FEDE AMARO MD, Ot K21.9 GASTRO-ESOPHAGEAL REFLUX DISEASE WITHOUT 01/09/2019 FEDE AMARO MD Ot R07.89 OTHER CHEST PAIN 01/09/2019 FEDE AMARO MD, Ot S29.011A STRAIN OF MUSCLE AND TENDON OF FRONT WAL 01/09/2019 FEDE AMARO MD Ot W00.9XXA UNSPECIFIED FALL DUE TO ICE AND SNOW, IN 01/09/2019 FEDE AMARO MD Ot Z79.01 ABALONE FISHERMAN (CURRENT) USE OF ANTICOAGULANT 01/09/2019 FEDE AMARO MD Ot Z79.51 ABALONE FISHERMAN (CURRENT) USE OF INHALED STERO 01/09/2019 FEDE AMARO MD Ot Z79.52 PRISON (CURRENT) USE OF SYSTEMIC STER 01/09/2019 FEDE AMARO MD, Ot Z86.711 PERSONAL HISTORY OF PULMONARY EMBOLISM 01/09/2019 FEDE AMARO MD, Ot Z87.01 PERSONAL HISTORY OF PNEUMONIA (RECURRENT 01/09/2019 FEDE AMARO MD, Ot Z87.09 PERSONAL HISTORY OF OTHER DISEASES OF TH 01/09/2019 FEDE AMARO MD, Ot Z87.448 PERSONAL HISTORY OF OTHER DISEASES OF UR 01/09/2019 FEDE AMARO MD, Ot Z87.820 PERSONAL HISTORY OF TRAUMATIC BRAIN INJU 01/09/2019 FEDE AMARO MD, Ot Z88.8 ALLERGY STATUS TO OT DRUG/MEDS/BIOL SUB 01/09/2019 FEDE AMARO MD, Ot Z93.0 TRACHEOSTOMY STATUS 01/09/2019 FEDE AMARO MD, Ot Z95.810 PRESENCE OF AUTOMATIC (IMPLANTABLE) CARD 01/09/2019 FEDE AMARO MD, Ot Z98.890 OTHER SPECIFIED POSTPROCEDURAL STATES 04/09/2019 BLANCO BERMAN Ot 401.9 HYPERTENSION NOS 04/09/2019 BLANCO BERMAN Ot 425.4 PRIM CARDIOMYOPATHY NEC 04/09/2019 BLANCO BERMAN Ot 427.5 CARDIAC ARREST 04/09/2019 BLANCO BERMAN Ot 428.0 CONGESTIVE HEART FAILURE NOS 04/09/2019 FELECIA FORTUNE MD Ot 397.0 TRICUSPID VALVE DISEASE 04/09/2019 FELECIA FORTUNE MD Ot 401.9 HYPERTENSION NOS 04/09/2019 FELECIA FORTUNE MD Ot 425.4 PRIM CARDIOMYOPATHY NEC 04/09/2019 FELECIA FORTUNE MD Ot 428.0 CONGESTIVE HEART FAILURE NOS 04/09/2019 BLANCO BERMAN Ot G93.1 ANOXIC BRAIN DAMAGE, NOT ELSEWHERE CLASS 04/09/2019 BLANCO BERMAN Ot I10 ESSENTIAL (PRIMARY) HYPERTENSION 04/09/2019 BLNACO BERMAN Ot I50.1 LEFT VENTRICULAR FAILURE 04/09/2019 BLANCO BERMAN Ot R09.2 RESPIRATORY ARREST 04/09/2019 BLANCO BERMAN Ot G93.1 ANOXIC BRAIN DAMAGE, NOT ELSEWHERE CLASS 04/09/2019 BLANCO BERMAN Ot I11.0 HYPERTENSIVE HEART DISEASE WITH HEART FA 04/09/2019 BLANCO BERMAN Ot I50.1 LEFT VENTRICULAR FAILURE, UNSPECIFIED 04/09/2019 BLANCO BERMAN Ot I51.3 INTRACARDIAC THROMBOSIS, NOT ELSEWHERE C 04/09/2019 FELECIA FORTUNE MD, 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, AORTIC 04/09/2019 FELECIA FORTUNE MD Ot I10 ESSENTIAL (PRIMARY) HYPERTENSION 04/09/2019 FELECIA FORTUNE MD, Ot I25.2 OLD MYOCARDIAL INFARCTION 04/09/2019 FELECIA FORTUNE MD, Ot I42.9 CARDIOMYOPATHY, UNSPECIFIED 04/09/2019 FELECIA FORTUNE MD Ot R00.1 BRADYCARDIA, UNSPECIFIED 04/09/2019 FELECIA FORTUNE MD, Ot Z79.01 ABALONE FISHERMAN (CURRENT) USE OF ANTICOAGULANT 04/12/2019 DELIO ARIZA DO, Ot D64.9 ANEMIA, UNSPECIFIED 04/12/2019 DELIO ARIZA DO, Ot F31.9 BIPOLAR DISORDER, UNSPECIFIED 04/12/2019 DELIO ARIZA DO, Ot F41.9 ANXIETY DISORDER, UNSPECIFIED 04/12/2019 DELIO ARIZA DO, Ot I25.2 OLD MYOCARDIAL INFARCTION 04/12/2019 DELIO ARIZA DO, Ot I42.9 CARDIOMYOPATHY, UNSPECIFIED 04/12/2019 DELIO ARIZA DO, Ot K21.9 GASTRO-ESOPHAGEAL REFLUX DISEASE WITHOUT 04/12/2019 DELIO ARIZA DO, Ot M25.522 PAIN IN LEFT ELBOW 04/12/2019 DELIO ARIZA DO, Ot Z79.01 PRISON (CURRENT) USE OF ANTICOAGULANT 04/12/2019 DELIO ARIZA DO, Ot Z79.52 PRISON (CURRENT) USE OF SYSTEMIC STER 04/12/2019 DELIO ARIZA DO, Ot Z86.69 PERSONAL HISTORY OF DIS OF THE NERVOUS S 04/12/2019 DELIO ARIZA DO, Ot Z86.79 PERSONAL HISTORY OF OTHER DISEASES OF 04/12/2019 DELIO ARIZA DO, Ot Z87.01 PERSONAL HISTORY OF PNEUMONIA (RECURRENT 04/12/2019 DELIO ARIZA DO, Ot Z87.09 PERSONAL HISTORY OF OTHER DISEASES OF TH 04/12/2019 DELIO ARIZA DO, Ot Z88.8 ALLERGY STATUS TO [facility] DRUG/MEDS/BIOL SUB 04/12/2019 TO DO, DELIO D Ot Z93.0 TRACHEOSTOMY STATUS 04/12/2019 TO TINSLEY DELIO Aubrey Ot Z95.810 PRESENCE OF AUTOMATIC (IMPLANTABLE) CARD 04/12/2019 TO TINSLEY DELIO Burgos Ot Z98.890 OTHER SPECIFIED POSTPROCEDURAL STATES 04/16/2019 EDISON CHAMBERLAIN MD, Ot D64.9 ANEMIA, UNSPECIFIED 04/16/2019 EDISON CHAMBERLAIN MD, Ot F31.9 BIPOLAR DISORDER, UNSPECIFIED 04/16/2019 EDISON CHAMBERLAIN MD, Ot F41.9 ANXIETY DISORDER, UNSPECIFIED 04/16/2019 EDISON CHAMBERLAIN MD, Ot I10 ESSENTIAL (PRIMARY) HYPERTENSION 04/16/2019 EDISON CHAMBERLAIN MD, Ot I25.2 OLD MYOCARDIAL INFARCTION 04/16/2019 EDISON CHAMBERLAIN MD, Ot I42.9 CARDIOMYOPATHY, UNSPECIFIED 04/16/2019 EDISON CHAMBERLAIN MD, Ot K21.9 GASTRO-ESOPHAGEAL REFLUX DISEASE WITHOUT 04/16/2019 EDISON CHAMBERLAIN MD, Ot N28.9 DISORDER OF KIDNEY AND URETER, UNSPECIFI 04/16/2019 EDISON CHAMBERLAIN MD, Ot R10.9 UNSPECIFIED ABDOMINAL PAIN 04/16/2019 EDISON CHAMBERLAIN MD, Ot R11.10 VOMITING, UNSPECIFIED 04/16/2019 EDISON CHAMBERLAIN MD, Ot R51 HEADACHE 04/16/2019 EDISON CHAMBERLAIN MD, Ot Z79.01 ABALONE FISHERMAN (CURRENT) USE OF ANTICOAGULANT 04/16/2019 EDISON CHAMBERLAIN MD, Ot Z79.52 ABALONE FISHERMAN (CURRENT) USE OF SYSTEMIC STER 04/16/2019 EDISON CHAMBERLAIN MD, Ot Z86.73 PRSNL HX OF TIA (TIA), AND CEREB INFRC W 04/16/2019 EDISON CHAMBERLAIN MD, Ot Z87.01 PERSONAL HISTORY OF PNEUMONIA (RECURRENT 04/16/2019 EDISON CHAMBERLAIN MD, Ot Z87.09 PERSONAL HISTORY OF OTHER DISEASES OF TH 04/16/2019 EDISON CHAMBERLAIN MD, Ot Z87.820 PERSONAL HISTORY OF TRAUMATIC BRAIN INJU 04/16/2019 EDISON CHAMBERLAIN MD, Ot Z88.8 ALLERGY STATUS TO OTH DRUG/MEDS/BIOL SUB 04/16/2019 EDISON CHAMBERLAIN MD, Ot Z93.0 TRACHEOSTOMY STATUS 04/16/2019 EDISON CHAMBERLAIN MD, Ot Z95.810 PRESENCE OF AUTOMATIC (IMPLANTABLE) CARD 04/16/2019 EDISON CHAMBERLAIN MD, Ot Z98.890 OTHER SPECIFIED POSTPROCEDURAL STATES [...] gravity of urine by test strip 1.020 1.016-1.022 Urine protein assay by test strip, semi-quantitative [...] sediment leukocyte count by microscopy (number/high power field) NONE NRG Bacteria detection in urine sediment [...] 7-25 CREATININE 1.63 mg/dL 0.50-1.10 eGFR NON-AFR. BENINESE 42 mL/min/1.73m2 > OR=60 eGFR 48 mL/min/1.73m2 [...] Automated erythrocyte mean corpuscular hemoglobin concentration measurement (mass/volume) 33 g/dL 32-36 Automated erythrocyte distribution width ratio 15.4 % 10.0- 14.5 Automated blood platelet count (count/volume) 394 10*3/uL [...] Blood monocytes automated count (number/volume) 0.7 10*3 0.0- 1.0 Automated eosinophil count 0.2 10*3/uL 0.0-0.3 Automated [...] Serum or plasma aspartate aminotransferase measurement (enzymatic activity/volume) 19 U/L 5-34 Serum or plasma alanine aminotransferase measurement (enzymatic activity/volume) 26 U/L 0-55 Serum or plasma protein measurement (mass/volume) 7.3 g/dL 6.4-8.2 Serum or plasma albumin measurement (mass/volume) 4.0 g/dL 3.2-4.5 CALCIUM CORRECTED 9.5 mg/dL 8.5-10.1 Magnesium - 11/01/18 16:25 Magnesium 2.2 mg/dL 1.8-2.4 Serum or plasma troponin i.cardiac measurement (mass/volume) - 11/01/18 16:25 Serum or plasma troponin i.cardiac measurement (mass/volume) < ng/mL <0.30 Myoglobin, serum - 11/01/18 16:25 Myoglobin, serum 110.5 ng/mL 10.0-92.0 Fibrin D-dimer FEU measurement in platelet poor plasma (mass/volume) - 11/01/18 16:25 Fibrin D-dimer FEU measurement in platelet [...] NEGATIVE NEGATIVE Urine propoxyphene detection NEGATIVE NEGATIVE Complete blood count (CBC) with automated white blood cell (WBC) differential - 01/06/19 01:20 Blood leukocytes automated count (number/volume) 10.0 10*3/uL 4.3-11.0 Blood erythrocytes automated count (number/volume) 5.07 10*6/uL 4.35-5.85 Venous blood hemoglobin measurement (mass/volume) 14.6 g/dL 11.5-16.0 Blood hematocrit (volume fraction) 44 % 35-52 Automated erythrocyte mean corpuscular volume 86 [foz_us] 80-99 Automated erythrocyte mean corpuscular hemoglobin (mass per erythrocyte) 29 pg 25-34 Automated erythrocyte mean corpuscular hemoglobin concentration measurement (mass/volume) 33 g/dL 32-36 Automated erythrocyte distribution width ratio 15.5 % 10.0- 14.5 Automated blood platelet count (count/volume) 449 10*3/uL 130-400 Automated blood platelet mean volume measurement 8.6 [foz_us] 7.4-10.4 Automated blood neutrophils/100 leukocytes 46 % 42-75 Automated blood lymphocytes/100 leukocytes 43 % 12-44 Blood monocytes/100 leukocytes 9 % 0-12 Automated blood eosinophils/100 leukocytes 2 % 0-10 Automated blood basophils/100 leukocytes 1 % 0-10 Blood neutrophils automated count (number/volume) 4.6 10*3 1.8-7.8 Blood lymphocytes automated count (number/volume) 4.4 10*3 1.0-4.0 Blood monocytes automated count (number/volume) 0.9 10*3 0.0- 1.0 Automated eosinophil count 0.2 10*3/uL 0.0-0.3 Automated blood basophil count (count/volume) 0.1 10*3/uL 0.0-0.1 PT panel in platelet poor plasma by coagulation assay - 01/06/19 01:20 Prothrombin time (PT) in platelet poor plasma by coagulation assay 12.7 s 12.2-14.7 INR in platelet poor plasma or blood by coagulation assay 1.0 0.8-1.4 Activated partial thromboplastin time (aPTT) in platelet poor plasma bycoagulation assay - 01/06/19 01:20 Activated partial thromboplastin time (aPTT) in platelet poor plasma bycoagulation assay 30 s 24-35 Comprehensive metabolic panel - 01/06/19 01:20 Serum or plasma sodium measurement (moles/volume) 138 mmol/L 135-145 Serum or plasma potassium measurement (moles/volume) 3.7 mmol/L 3.6-5.0 Serum or plasma chloride measurement (moles/volume) 103 mmol/L 98-107 Carbon dioxide 21 mmol/L 21-32 Serum or plasma anion gap determination (moles/volume) 14 mmol/L 5-14 Serum or plasma urea nitrogen measurement (mass/volume) 23 mg/dL 7-18 Serum or plasma creatinine measurement (mass/volume) 1.51 mg/dL 0.60-1.30 Serum or plasma urea nitrogen/creatinine mass ratio 15 NRG Serum or plasma creatinine measurement with calculation of estimated glomerular filtration rate 49 NRG Serum or plasma glucose measurement (mass/volume) 144 mg/dL 70-105 Serum or plasma calcium measurement (mass/volume) 8.8 mg/dL 8.5-10.1 Serum or plasma total bilirubin measurement (mass/volume) 0.1 mg/dL 0.1-1.0 Serum or plasma alkaline phosphatase measurement (enzymatic activity/volume) 89 U/L 40-136 Serum or plasma aspartate aminotransferase measurement (enzymatic activity/volume) 18 U/L 5-34 Serum or plasma alanine aminotransferase measurement (enzymatic activity/volume) 18 U/L 0-55 Serum or plasma protein measurement (mass/volume) 6.9 g/dL 6.4-8.2 Serum or plasma albumin measurement (mass/volume) 3.6 g/dL 3.2-4.5 CALCIUM CORRECTED 9.1 mg/dL 8.5-10.1 Magnesium - 01/06/19 01:20 Magnesium 2.0 mg/dL 1.8-2.4 Serum or plasma acetaminophen measurement (mass/volume) - 01/06/19 01:20 Serum or plasma acetaminophen measurement (mass/volume) 11 ug/mL 10-30 Serum or plasma troponin i.cardiac measurement (mass/volume) - 01/06/19 01:20 Serum or plasma troponin i.cardiac measurement (mass/volume) < ng/mL <0.028 Myoglobin, serum - 01/06/19 01:20 Myoglobin, serum 103.4 ng/mL 10.0-92.0 Complete urinalysis with reflex to culture - 04/12/19 21:20 Urine color determination YELLOW NRG Urine clarity determination CLEAR NRG Urine pH measurement by test strip 7.0 5-9 Specific gravity of urine by test strip 1.020 1.016-1.022 Urine protein assay by test strip, semi-quantitative 2+ NEGATIVE Urine glucose detection by automated test strip NEGATIVE NEGATIVE Erythrocytes detection in urine sediment by light microscopy 1+ NEGATIVE Urine ketones detection by automated test strip NEGATIVE NEGATIVE Urine nitrite detection by test strip NEGATIVE NEGATIVE Urine total bilirubin detection by test strip NEGATIVE NEGATIVE Urine urobilinogen measurement by automated test strip (mass/volume) 0.2 mg/dL NORMAL Urine leukocyte esterase detection by dipstick TRACE NEGATIVE Automated urine sediment erythrocyte count by microscopy (number/high power field) [HPF] NRG Automated urine sediment leukocyte count by microscopy (number/high power field) [HPF] NRG Bacteria detection in urine sediment by light microscopy NONE NRG Squamous epithelial cells detection in urine sediment by light microscopy 25-50 NRG Crystals detection in urine sediment by light microscopy NONE NRG Casts detection in urine sediment by light microscopy NONE NRG Mucus detection in urine sediment by light microscopy NEGATIVE NRG Complete urinalysis with reflex to culture NO NRG Urine beta human chorionic gonadotropin (hCG) measurement - 04/12/19 21:20 Urine beta human chorionic gonadotropin (hCG) measurement NEGATIVE NEGATIVE Complete blood count (CBC) with automated white blood cell (WBC) differential - 04/12/19 21:20 Blood leukocytes automated count (number/volume) 8.0 10*3/uL 4.3-11.0 Blood erythrocytes automated count (number/volume) 4.72 10*6/uL 4.35-5.85 Venous blood hemoglobin measurement (mass/volume) 13.5 g/dL 11.5-16.0 Blood hematocrit (volume fraction) 42 % 35-52 Automated erythrocyte mean corpuscular volume 88 [foz_us] 80-99 Automated erythrocyte mean corpuscular hemoglobin (mass per erythrocyte) 29 pg 25-34 Automated erythrocyte mean corpuscular hemoglobin concentration measurement (mass/volume) 33 g/dL 32-36 Automated erythrocyte distribution width ratio 14.9 % 10.0- 14.5 Automated blood platelet count (count/volume) 368 10*3/uL 130-400 Automated blood platelet mean volume measurement 9.0 [foz_us] 7.4-10.4 Automated blood neutrophils/100 leukocytes 57 % 42-75 Automated blood lymphocytes/100 leukocytes 34 % 12-44 Blood monocytes/100 leukocytes 6 % 0-12 Automated blood eosinophils/100 leukocytes 2 % 0-10 Automated blood basophils/100 leukocytes 1 % 0-10 Blood neutrophils automated count (number/volume) 4.6 10*3 1.8-7.8 Blood lymphocytes automated count (number/volume) 2.8 10*3 1.0-4.0 Blood monocytes automated count (number/volume) 0.5 10*3 0.0- 1.0 Automated eosinophil count 0.1 10*3/uL 0.0-0.3 Automated blood basophil count (count/volume) 0.1 10*3/uL 0.0-0.1 Serum or plasma choriogonadotropin ( test) detection - 04/12/19 21:20 Serum or plasma choriogonadotropin ( test) detection NEGATIVE NEGATIVE Comprehensive metabolic panel - 04/12/19 21:20 Serum or plasma sodium measurement (moles/volume) 139 mmol/L 135-145 Serum or plasma potassium measurement (moles/volume) 3.9 mmol/L 3.6-5.0 Serum or plasma chloride measurement (moles/volume) 100 mmol/L 98-107 Carbon dioxide 22 mmol/L 21-32 Serum or plasma anion gap determination (moles/volume) 17 mmol/L 5-14 Serum or plasma urea nitrogen measurement (mass/volume) 14 mg/dL 7-18 Serum or plasma creatinine measurement (mass/volume) 1.63 mg/dL 0.60-1.30 Serum or plasma urea nitrogen/creatinine mass ratio 9 NRG Serum or plasma creatinine measurement with calculation of estimated glomerular filtration rate 45 NRG Serum or plasma glucose measurement (mass/volume) 129 mg/dL 70-105 Serum or plasma calcium measurement (mass/volume) 9.0 mg/dL 8.5-10.1 Serum or plasma total bilirubin measurement (mass/volume) 0.2 mg/dL 0.1-1.0 Serum or plasma alkaline phosphatase measurement (enzymatic activity/volume) 84 U/L 40-136 Serum or plasma aspartate aminotransferase measurement (enzymatic activity/volume) 28 U/L 5-34 Serum or plasma alanine aminotransferase measurement (enzymatic activity/volume) 27 U/L 0-55 Serum or plasma protein measurement (mass/volume) 6.6 g/dL 6.4-8.2 Serum or plasma albumin measurement (mass/volume) 3.8 g/dL 3.2-4.5 CALCIUM CORRECTED 9.2 mg/dL 8.5-10.1 Lipase - 04/12/19 21:20 Lipase 24 U/L 8-78 Complete blood count (CBC) with automated white blood cell (WBC) differential - 04/19/19 16:20 Blood leukocytes automated count (number/volume) 8.2 10*3/uL 4.3-11.0 Blood erythrocytes automated count (number/volume) 4.85 10*6/uL 4.35-5.85 Venous blood hemoglobin measurement (mass/volume) 13.6 g/dL 11.5-16.0 Blood hematocrit (volume fraction) 41 % 35-52 Automated erythrocyte mean corpuscular volume 85 [foz_us] 80-99 Automated erythrocyte mean corpuscular hemoglobin (mass per erythrocyte) 28 pg 25-34 Automated erythrocyte mean corpuscular hemoglobin concentration measurement (mass/volume) 33 g/dL 32-36 Automated erythrocyte distribution width ratio 15.2 % 10.0- 14.5 Automated blood platelet count (count/volume) 369 10*3/uL 130-400 Automated blood platelet mean volume measurement 8.8 [foz_us] 7.4-10.4 Automated blood neutrophils/100 leukocytes 48 % 42-75 Automated blood lymphocytes/100 leukocytes 42 % 12-44 Blood monocytes/100 leukocytes 8 % 0-12 Automated blood eosinophils/100 leukocytes 2 % 0-10 Automated blood basophils/100 leukocytes 0 % 0-10 Blood neutrophils automated count (number/volume) 3.9 10*3 1.8-7.8 Blood lymphocytes automated count (number/volume) 3.5 10*3 1.0-4.0 Blood monocytes automated count (number/volume) 0.6 10*3 0.0- 1.0 Automated eosinophil count 0.1 10*3/uL 0.0-0.3 Automated blood basophil count (count/volume) 0.0 10*3/uL 0.0-0.1 Comprehensive metabolic panel - 04/19/19 16:20 Serum or plasma sodium measurement (moles/volume) 140 mmol/L 135-145 Serum or plasma potassium measurement (moles/volume) 4.2 mmol/L 3.6-5.0 Serum or plasma chloride measurement (moles/volume) 108 mmol/L 98-107 Carbon dioxide 20 mmol/L 21-32 Serum or plasma anion gap determination (moles/volume) 12 mmol/L 5-14 Serum or plasma urea nitrogen measurement (mass/volume) 20 mg/dL 7-18 Serum or plasma creatinine measurement (mass/volume) 1.80 mg/dL 0.60-1.30 Serum or plasma urea nitrogen/creatinine mass ratio 11 NRG Serum or plasma creatinine measurement with calculation of estimated glomerular filtration rate 40 NRG Serum or plasma glucose measurement (mass/volume) 127 mg/dL 70-105 Serum or plasma calcium measurement (mass/volume) 9.6 mg/dL 8.5-10.1 Serum or plasma total bilirubin measurement (mass/volume) 0.2 mg/dL 0.1-1.0 Serum or plasma alkaline phosphatase measurement (enzymatic activity/volume) 76 U/L 40-136 Serum or plasma aspartate aminotransferase measurement (enzymatic activity/volume) 14 U/L 5-34 Serum or plasma alanine aminotransferase measurement (enzymatic activity/volume) 14 U/L 0-55 Serum or plasma protein measurement (mass/volume) 6.6 g/dL 6.4-8.2 Serum or plasma albumin measurement (mass/volume) 3.6 g/dL 3.2-4.5 CALCIUM CORRECTED 9.9 mg/dL 8.5-10.1 Magnesium - 04/19/19 16:20 Magnesium 1.8 mg/dL 1.8-2.4 Serum or plasma choriogonadotropin ( test) detection - 04/19/19 16:20 Serum or plasma choriogonadotropin ( test) detection NEGATIVE NEGATIVE Serum or plasma troponin i.cardiac measurement (mass/volume) - 04/19/19 16:20 Serum or plasma troponin i.cardiac measurement (mass/volume) < ng/mL <0.028 PT panel in platelet poor plasma by coagulation assay - 04/19/19 16:20 Prothrombin time (PT) in platelet poor plasma by coagulation assay 12.6 s 12.2-14.7 INR in platelet poor plasma or blood by coagulation assay 0.9 0.8-1.4 Serum or plasma lithium measurement (moles/volume) - 04/19/19 16:20 BNP level 76.2 pg/mL <100.0 Erythrocyte sedimentation rate by westergren method - 04/19/19 16:20 Erythrocyte sedimentation rate by westergren method 29 mm 0-20 THYROID STIMULATING HORMONE - 04/19/19 16:20 THYROID STIMULATING HORMONE 3.57 u[iU]/mL 0.35-4.94 Serum or plasma thyroxine (T4) free measurement (mass/volume) - 04/19/19 16:20 Serum or plasma thyroxine (T4) free measurement (mass/volume) 1.00 ng/dL 0.70-1.48 Complete urinalysis with reflex to culture - 04/19/19 16:30 Urine color determination YELLOW NRG Urine clarity determination CLEAR NRG Urine pH measurement by test strip 5 5-9 Specific gravity of urine by test strip 1.025 1.016-1.022 Urine protein assay by test strip, semi-quantitative 4+ NEGATIVE Urine glucose detection by automated test strip NEGATIVE NEGATIVE Erythrocytes detection in urine sediment by light microscopy 1+ NEGATIVE Urine ketones detection by automated test strip NEGATIVE NEGATIVE Urine nitrite detection by test strip NEGATIVE NEGATIVE Urine total bilirubin detection by test strip NEGATIVE NEGATIVE Urine urobilinogen measurement by automated test strip (mass/volume) NORMAL NORMAL Urine leukocyte esterase detection by dipstick 1+ NEGATIVE Automated urine sediment erythrocyte count by microscopy (number/high power field) NONE NRG Automated urine sediment leukocyte count by microscopy (number/high power field) [HPF] NRG Bacteria detection in urine sediment by light microscopy MODERATE NRG Squamous epithelial cells detection in urine sediment by light microscopy 10-25 NRG Crystals detection in urine sediment by light microscopy NONE NRG Casts detection in urine sediment by light microscopy NONE NRG Mucus detection in urine sediment by light microscopy NEGATIVE NRG Complete urinalysis with reflex to culture NO NRG Urine drug screening test - 04/19/19 16:30 Urine phencyclidine detection by screening method NEGATIVE [...] Status Pt. Type Provider Facility Loc./Unit Complaint [id number] 04/05/2019 12:00:00 04/05/2019 23:59:59 CLS Outpatient CHUNG BALDERAS [facility] [id number] 09/20/2018 09:20:00 Document Registration [id number] 08/10/2018 11:40:00 Document Registration [id number] 04/12/2019 20:29:00 04/12/2019 23:19:00 DIS Outpatient BULMARO MAZARIEGOS, EDISON Mcghee [facility] ER FS VOMITING, BACK PAIN, DIZZY [id number] 04/09/2019 00:33:00 04/09/2019 01:40:00 DIS Outpatient DELIO ARIZA DO [facility] ER FS LEFT PAIN [id number] 01/06/2019 01:18:00 01/06/2019 03:15:00 DIS Emergency PREM MAZARIEGOS, FEDE Burgos [facility] ER CP,FALL 2 DAYS AGO [id number] 01/01/2019 15:50:00 01/01/2019 19:25:00 DIS Emergency NIK CELIS [facility] ER SOB/COUGHING UP BLOOD [id number] 11/01/2018 14:51:00 11/01/2018 19:37:00 DIS Emergency MARIBEL MAZARIEGOS, RALPH Mcelroy [facility] ER SOB;HEAD PAIN;HIGH BP [id number] 10/23/2018 12:07:00 10/23/2018 23:59:59 CLS Outpatient TONG MAZARIEGOS, FELECIA Diaz [facility] CARD CARDIOMYOPATHY,HTN,MR,SINUS BRADYCARDIA [id number] 08/05/2018 17:39:00 08/05/2018 19:33:00 DIS Emergency NIK CELIS [facility] ER HEAD HURTING,RT ANKLE SWOLLEN [id number] 01/12/2018 10:17:00 01/12/2018 23:59:59 CLS Outpatient BLANCO BERMAN [facility] CARD G93.1 ANOXIC ENCEPHALOPATHY [id number] 10/06/2017 12:00:00 10/06/2017 23:59:59 CLS Preadmit FELECIA FORTUNE MD [facility] CARD CARDIOMYOPATHY I42.9 [id number] 03/03/2016 12:12:00 03/03/2016 23:59:59 CLS Outpatient BLANCO BERMAN [facility] CARD ENCOPELPATH [id number] 02/15/2016 15:59:00 02/15/2016 18:46:00 DIS Emergency DRU MAZARIEGOS, OSMAN Mohan [facility] ER DEFIBRILLATOR ISSUES [id number] 12/01/2015 18:08:00 12/01/2015 21:10:00 DIS Emergency RODRIGO HILL DO [facility] ER IRREGULAR HEART RATE [id number] 08/23/2015 20:00:00 08/24/2015 01:08:00 DIS Emergency MARIBEL MAZARIEGOS, RALPH Mcelroy [facility] ER DEFIBRILLATOR BEEPING [id number] 08/08/2015 22:55:00 08/09/2015 00:13:00 DIS Emergency KRISTA MAZARIEGOS, ORESTES Guthrie [facility] ER L ARM/RIB CAGE PAIN [id number] 07/27/2015 18:45:00 07/29/2015 12:40:00 DIS Inpatient APRIL DOMINIQUE DO A [facility] CSD L PNEUMOTHORAX L CHEST WALL PX ELEV LFT'S [id number] 07/23/2015 06:38:00 07/24/2015 11:45:00 DIS Outpatient FELECIA FORTUNE MD [facility] CATH CGF,CARDIOMYOPATHY [id number] 07/15/2015 11:28:00 07/15/2015 23:59:59 CLS Outpatient FELECIA FORTUNE MD [facility] LAB CHF,HTN,TR [id number] 07/11/2015 10:45:00 07/11/2015 23:59:59 CLS Outpatient BLANCO BERMAN [facility] CARD CHF,CARDINUREOPATHY HTN [id number] 03/26/2015 13:23:00 03/31/2015 18:00:00 DIS Inpatient APRIL DOMINIQUE DO [facility] CSD UNK [id number] 03/21/2015 12:45:00 03/26/2015 12:46:00 DIS Inpatient LISSET DIETRICH MD [facility] IRF DEBILITY,ENCEPHALOPATHY [id number] 04/19/2019 16:33:00 Document Registration
--- OUTSIDE RECORDS SUMMARY | 2019-04-19 23:28 | XMS REPORT | Clinical Summary ---
Author Author [facility] Organization [facility] Address Unknown Phone Unavailable Care Team Providers Care Mincing Machine Operator Name Role Phone Austin Tobias MD Unavailable Rhona Vazquez MD Unavailable Angie Barros MD Unavailable Marilyn Chapa MD PCP Unavailable Source Comments Some departments are not documenting in the electronic medical record. If you d o not see the information that you expected, contact Release of Information in Critical access hospital Information Management department at [phone] for further assistan ce in locating additional records.[facility] Allergies Comments Active Allergy Reactions Severity [...] Phone Address Plan / Dates Group Medicaid [facility] MEDICAID [facility] xxxxxxxxxxx [id number] [place] ([place]) [place] [address] Advance Directives Patient has advance care planning documents on file. For more information, palak thomas contact: [address] [address]
--- OUTSIDE RECORDS SUMMARY | 2019-04-19 23:31 | XMS REPORT | Continuity of Care Document ---
Author Organization Unknown Address Unknown Allergies Active Description Code Type Severity Reaction Onset Reported/Identified Relationship to Patient Clinical Status Yes bacl bacl Moderate N/A 03/21/2015 Yes baclofen [id number] Drug Allergy Unknown N/A 03/24/2015 Yes phenazopyridine [id number] Drug Allergy Unknown N/A 03/24/2015 Yes ARB-Angiotensin Receptor Antagonist [id number] Drug Allergy Severe N/A 07/24/2015 Yes JIA Inhibitors [id number] Drug Allergy Severe N/A 04/12/2019 Medications There [...] Ot 428.0 CONGESTIVE HEART FAILURE NOS 03/26/2015 LISSET DIETRICH MD Ot 429.89 ILL-DEFINED HRT DIS [...] KAUR MAZARIEGOS, LISSET E Ot V57.89 03/26/2015 KARU MAZARIEGOS, LISSET E Ot V58.61 03/27/2015 KAUR [...] Guthrie Ot 428.0 07/29/2015 GELLENDER DO, APRIL Guthire Ot 512.89 07/29/2015 GELLENDER DO, APRIL Guthrie [...] BLANCO K Ot R09.2 RESPIRATORY ARREST 01/12/2018 NERISAS LAURA BLANCO K Ot 401.9 HYPERTENSION NOS [...] INITIAL ENCOUNTER 08/05/2018 NIK CELIS Ot Z79.01 UNIFORM ROOM ATTENDANT (CURRENT) USE OF ANTICOAGULANT 08/05/2018 NIK CELIS Ot Z79.51 UNIFORM ROOM ATTENDANT (CURRENT) USE OF INHALED STERO 08/05/2018 NIK [...] INITIAL ENCOUNTER 08/08/2018 NIK CELIS Ot Z79.01 UNIFORM ROOM ATTENDANT (CURRENT) USE OF ANTICOAGULANT 08/08/2018 NIK CELIS Ot Z79.51 ALF (CURRENT) USE OF INHALED STERO 08/08/2018 NIK CELIS Ot Z87.01 PERSONAL HISTORY OF PNEUMONIA (RECURRENT 08/08/2018 NIK CELIS Ot Z87.891 PERSONAL HISTORY OF NICOTINE DEPENDENCE 08/08/2018 NIK CELIS Ot Z88.8 ALLERGY STATUS TO [facility] DRUG/MEDS/BIOL SUB 08/08/2018 LALITA NIK Ot Z93.0 TRACHEOSTOMY STATUS 08/08/2018 LLAITAPEDROIS Ot Z95.810 PRESENCE OF AUTOMATIC (IMPLANTABLE) CARD [...] UNSPECIFIED 10/24/2018 FELECIA FORTUNE MD, Ot Z79.01 UNIFORM ROOM ATTENDANT (CURRENT) USE OF ANTICOAGULANT 11/01/2018 RALPH LÓPEZ [...] HEADACHE 11/01/2018 RALPH LÓPEZ MD, Ot Z79.01 ALF (CURRENT) USE OF ANTICOAGULANT 11/01/2018 RALPH LÓPEZ MD Ot Z79.51 ALF (CURRENT) USE OF INHALED STERO 11/01/2018 RALPH [...] HEADACHE 11/03/2018 RALPH LÓPEZ MD Ot Z79.01 ALF (CURRENT) USE OF ANTICOAGULANT 11/03/2018 RALPH LÓPEZ MD Ot Z79.51 ALF (CURRENT) USE OF INHALED STERO 11/03/2018 RALPH [...] HEADACHE 11/09/2018 RALPH LÓPEZ MD, Ot Z79.01 ALF (CURRENT) USE OF ANTICOAGULANT 11/09/2018 RALPH LÓPEZ MD Ot Z79.51 UNIFORM ROOM ATTENDANT (CURRENT) USE OF INHALED STERO 11/09/2018 RALPH [...] R05 COUGH 01/01/2019 NIK CELIS Ot Z79.01 UNIFORM ROOM ATTENDANT (CURRENT) USE OF ANTICOAGULANT 01/01/2019 NIK CELIS Ot Z79.51 UNIFORM ROOM ATTENDANT (CURRENT) USE OF INHALED STERO 01/01/2019 NIK CELIS Ot Z87.01 PERSONAL HISTORY OF PNEUMONIA (RECURRENT 01/01/2019 NIK CELIS Ot Z87.448 PERSONAL HISTORY OF OTHER DISEASES OF UR 01/01/2019 NIK CELIS Ot Z87.820 PERSONAL HISTORY OF TRAUMATIC BRAIN INJU 01/01/2019 NIK CELIS Ot Z87.891 PERSONAL HISTORY OF NICOTINE DEPENDENCE 01/01/2019 NIK CELIS Ot Z88.8 ALLERGY STATUS TO [facility] DRUG/MEDS/BIOL SUB 01/01/2019 NIK CELIS Ot Z93.0 [...] UNSPECIFIED 01/05/2019 FELECIA FORTUNE MD Ot Z79.01 ALF (CURRENT) USE OF ANTICOAGULANT 01/06/2019 BLANCO BERMAN [...] I10 ESSENTIAL (PRIMARY) HYPERTENSION 01/06/2019 FELECIA FORTUNE MD, Ot I25.2 OLD MYOCARDIAL INFARCTION 01/06/2019 FELECIA FORTUNE MD, Ot I42.9 CARDIOMYOPATHY, UNSPECIFIED 01/06/2019 FELECIA FORTUNE MD Ot R00.1 BRADYCARDIA, UNSPECIFIED 01/06/2019 FELECIA FORTUNE MD, Ot Z79.01 ALF (CURRENT) USE OF ANTICOAGULANT 01/06/2019 FEDE AMARO [...] IN 01/06/2019 FEDE AMARO MD, Ot Z79.01 UNIFORM ROOM ATTENDANT (CURRENT) USE OF ANTICOAGULANT 01/06/2019 FEDE AMARO MD, Ot Z79.51 UNIFORM ROOM ATTENDANT (CURRENT) USE OF INHALED STERO 01/06/2019 FEDE AMARO MD, Ot Z79.52 UNIFORM ROOM ATTENDANT (CURRENT) USE OF SYSTEMIC STER 01/06/2019 FEDE [...] AMARO MD, Ot Z88.8 ALLERGY STATUS TO [facility] DRUG/MEDS/BIOL SUB 01/06/2019 FEDE AMARO MD, Ot [...] R05 COUGH 01/07/2019 NIK CELIS Ot Z79.01 ALF (CURRENT) USE OF ANTICOAGULANT 01/07/2019 NIK CELSI Ot Z79.51 UNIFORM ROOM ATTENDANT (CURRENT) USE OF INHALED STERO 01/07/2019 NIK [...] IN 01/09/2019 FEDE AMARO MD Ot Z79.01 UNIFORM ROOM ATTENDANT (CURRENT) USE OF ANTICOAGULANT 01/09/2019 FEDE AMARO MD Ot Z79.51 UNIFORM ROOM ATTENDANT (CURRENT) USE OF INHALED STERO 01/09/2019 FEDE AMARO MD Ot Z79.52 ALF (CURRENT) USE OF SYSTEMIC STER 01/09/2019 FEDE [...] BERMAN Ot I10 ESSENTIAL (PRIMARY) HYPERTENSION 04/09/2019 BLANCO BERMAN Ot I50.1 LEFT VENTRICULAR FAILURE 04/09/2019 [...] UNSPECIFIED 04/09/2019 FELECIA FORTUNE MD, Ot Z79.01 UNIFORM ROOM ATTENDANT (CURRENT) USE OF ANTICOAGULANT 04/12/2019 DELIO ARIZA [...] ELBOW 04/12/2019 DELIO ARIZA DO, Ot Z79.01 ALF (CURRENT) USE OF ANTICOAGULANT 04/12/2019 DELIO ARIZA DO, Ot Z79.52 ALF (CURRENT) USE OF SYSTEMIC STER 04/12/2019 DELIO ARIZA DO, Ot Z86.69 PERSONAL HISTORY OF DIS OF THE NERVOUS S 04/12/2019 DELIO ARIZA DO, Ot Z86.79 PERSONAL HISTORY OF OTHER DISEASES OF 04/12/2019 DELIO ARIZA DO, Ot Z87.01 PERSONAL HISTORY OF PNEUMONIA (RECURRENT 04/12/2019 DELIO AIRZA DO, Ot Z87.09 PERSONAL HISTORY OF OTHER DISEASES OF TH 04/12/2019 DELIO ARIZA DO, Ot Z88.8 ALLERGY STATUS TO [facility] DRUG/MEDS/BIOL SUB 04/12/2019 TO DO, DELIO D [...] HEADACHE 04/16/2019 EDISON CHAMBERLAIN MD, Ot Z79.01 UNIFORM ROOM ATTENDANT (CURRENT) USE OF ANTICOAGULANT 04/16/2019 EDISON CHAMBERLAIN MD, Ot Z79.52 UNIFORM ROOM ATTENDANT (CURRENT) USE OF SYSTEMIC STER 04/16/2019 EDISON [...] 7-25 CREATININE 1.63 mg/dL 0.50-1.10 eGFR NON-AFR. VENEZUELAN 42 mL/min/1.73m2 > OR=60 eGFR 48 mL/min/1.73m2 [...] Status Pt. Type Provider Facility Loc./Unit Complaint [id number] 04/05/2019 12:00:00 04/05/2019 23:59:59 CLS Outpatient CHUNG BALDERAS [facility] [id number] 09/20/2018 09:20:00 Document Registration [id number] 08/10/2018 11:40:00 Document Registration [id number] 04/12/2019 20:29:00 04/12/2019 23:19:00 DIS Outpatient BULMARO MAZARIEGOS, EDISON Mcghee [facility] ER FS VOMITING, BACK PAIN, DIZZY [id number] 04/09/2019 00:33:00 04/09/2019 01:40:00 DIS Outpatient DELIO ARIZA DO [facility] ER FS LEFT PAIN [id number] 01/06/2019 01:18:00 01/06/2019 03:15:00 DIS Emergency PREM MAZARIEGOS, FEDE Burgos [facility] ER CP,FALL 2 DAYS AGO [id number] 01/01/2019 15:50:00 01/01/2019 19:25:00 DIS Emergency NIK CELIS [facility] ER SOB/COUGHING UP BLOOD [id number] 11/01/2018 14:51:00 11/01/2018 19:37:00 DIS Emergency MARIBEL MAZARIEGOS, RALPH Mcelroy [facility] ER SOB;HEAD PAIN;HIGH BP [id number] 10/23/2018 12:07:00 10/23/2018 23:59:59 CLS Outpatient TONG MAZARIEGOS, FELECIA Diaz [facility] CARD CARDIOMYOPATHY,HTN,MR,SINUS BRADYCARDIA [id number] 08/05/2018 17:39:00 08/05/2018 19:33:00 DIS Emergency NIK CELIS [facility] ER HEAD HURTING,RT ANKLE SWOLLEN [id number] 01/12/2018 10:17:00 01/12/2018 23:59:59 CLS Outpatient BLANCO BERMAN [facility] CARD G93.1 ANOXIC ENCEPHALOPATHY [id number] 10/06/2017 12:00:00 10/06/2017 23:59:59 CLS Preadmit FELECIA FORTUNE MD [facility] CARD CARDIOMYOPATHY I42.9 [id number] 03/03/2016 12:12:00 03/03/2016 23:59:59 CLS Outpatient BLANCO BERMAN [facility] CARD ENCOPELPATH [id number] 02/15/2016 15:59:00 02/15/2016 18:46:00 DIS Emergency DRU MAZARIEGOS, OSMAN Mohan [facility] ER DEFIBRILLATOR ISSUES [id number] 12/01/2015 18:08:00 12/01/2015 21:10:00 DIS Emergency RODRIGO HLIL DO [facility] ER IRREGULAR HEART RATE [id number] 08/23/2015 20:00:00 08/24/2015 01:08:00 DIS Emergency MARIBEL MAZARIEGOS, RALPH Mcelroy [facility] ER DEFIBRILLATOR BEEPING [id number] 08/08/2015 22:55:00 08/09/2015 00:13:00 DIS Emergency KRISTA MAZARIEGOS, ORESTES Guthrie [facility] ER L ARM/RIB CAGE PAIN [id number] 07/27/2015 18:45:00 07/29/2015 12:40:00 DIS Inpatient APRIL DOMINIQUE DO A [facility] CSD L PNEUMOTHORAX L CHEST WALL PX ELEV LFT'S [id number] 07/23/2015 06:38:00 07/24/2015 11:45:00 DIS Outpatient FELECIA FORTUNE MD [facility] CATH CGF,CARDIOMYOPATHY [id number] 07/15/2015 11:28:00 07/15/2015 23:59:59 CLS Outpatient FELECIA FORTUNE MD [facility] LAB CHF,HTN,TR [id number] 07/11/2015 10:45:00 07/11/2015 23:59:59 CLS Outpatient BLANCO BERMAN [facility] CARD CHF,CARDINUREOPATHY HTN [id number] 03/26/2015 13:23:00 03/31/2015 18:00:00 DIS Inpatient APRIL DOMINIQUE DO [facility] CSD UNK [id number] 03/21/2015 12:45:00 03/26/2015 12:46:00 DIS Inpatient LISSET DIETRICH MD [facility] IRF DEBILITY,ENCEPHALOPATHY [id number] 04/19/2019 16:33:00 Document Registration
== END 2019-04-19 18:33 | disposition home or self-care (01) ==
LOC: EDUNIT# 15:50 → ER 15:50 → UNDOADMIN 16:32 → ICU 16:32 → ER 18:33
DX: I50.9 Heart failure, unspecified (principal); R53.81 Other malaise; R53.83 Other fatigue; I25.2 Old myocardial infarction; I42.9 Cardiomyopathy, unspecified; K21.9 Gastro-esophageal reflux disease without esophagitis; F41.9 Anxiety disorder, unspecified; F31.9 Bipolar disorder, unspecified; D64.9 Anemia, unspecified; Z86.69 Personal history of other diseases of the nervous system and sense organs; Z86.79 Personal history of other diseases of the circulatory system; Z88.8 Allergy status to other drugs, medicaments and biological substances; Z79.01 Long term (current) use of anticoagulants; Z79.52 Long term (current) use of systemic steroids; Z95.810 Presence of automatic (implantable) cardiac defibrillator; Z98.890 Other specified postprocedural states; Z93.0 Tracheostomy status; Z87.01 Personal history of pneumonia (recurrent); Z87.09 Personal history of other diseases of the respiratory system
CPT/HCPCS: 36415; 71046; 80053; 80306; 81000; 83735; 83880; 84439; 84443; 84484; 84703; 85025; 85610; 85652; 96374; 96375

== ENCOUNTER 2019-04-20 22:37 | Emergency (ER) | payer MEDICAID ==
[~2019-04-20] VITALS: Ht 160 cm; Wt 106.1 kg
--- NOTE | 2019-04-20 23:21 | ED Lower Extremity ---
General Chief Complaint: Lower Extremity Stated Complaint: SWOLLEN ARMS, HANDS AND FEET Source: patient History of Present Illness Date Seen by Provider: April 20, 2019 Time Seen by Provider: 23:00 Initial Comments 28-year-old female presents with bilateral ankle swelling and what she feels is bilateral wrists swelling. Patient reports that she has been having it for a while but is getting worse. Patient saw her provider earlier today but didn't get Lasix like she wanted so she presented here to the ER. Her provider did a bunch of lab tests according to her but nothing else. Patient was seen in the [place] ER yesterday for "shortness of breath" and had an extensive negative workup. Patient also reports that some point yesterday she had a "echo of her heart". Patient has a known CHF. She was asked to follow-up with her literacy teacher. Patient also was seen here for similar type symptoms a few days earlier than the [place] ER visit. Patient denies any chest pain, shortness of breath, nausea, vomiting or any other acute changes at this time. Allergies and Home Medications Allergies Coded Allergies: ODILON Inhibitors (Verified Allergy, Severe, 04/12/19) ARB-Angiotensin Receptor Antagonist (Verified Allergy, Severe, 07/24/15) baclofen (Unverified Allergy, Unknown, 03/24/15) ON H&P phenazopyridine (Unverified Allergy, Unknown, 03/24/15) ON H&P Home Medications Albuterol Sulfate 8 Gm Hfa.aer.ad, 2 PUFF INH Q6H PRN for SHORTNESS OF BREATH, (Reported) Amlodipine Besylate 10 Mg Tablet, 10 MG PO DAILY, (Reported) Apixaban 5 Mg Tablet, 5 MG PO BID Prescribed by: RALPH DELCID on 11/01/18 185 Azithromycin 250 Mg Tablet, 250 MG PO UD TAKE 2 TABLETS TODAY, THEN TAKE 1 TABLET DAILY FOR 4 MORE DAYS Prescribed by: NIK CELIS on 01/01/19 183 Meloxicam 7.5 Mg Tablet, 7.5 MG PO Q12H PRN for elbow pain Prescribed by: DELIO ARIZA on 04/09/19 0125 Metoprolol Tartrate 50 Mg Tablet, 50 MG PO BID Prescribed by: FELECIA FORTUNE on 07/24/15 0841 Prednisone 10 Mg Tab.ds.pk, 10 MG PO UD Prescribed by: NIK CELIS on 01/01/191830 Venlafaxine HCl 150 Mg Tab.er.24, 150 MG PO DAILY, (Reported) Warfarin Sodium 4 Mg Tablet, 8 MG PO HS, (Reported) TAKES 2 (4MG) TABLETS Patient Home Medication List Home Medication List Reviewed: Yes Review of Systems Constitutional: No chills, No diaphoresis EENTM: no symptoms reported Respiratory: No cough, No dyspnea on exertion, No short of breath, No wheezing Cardiovascular: No chest pain; edema; No palpitations Genitourinary: no symptoms reported : No Musculoskeletal: see HPI; No muscle pain, No muscle stiffness, No muscle cramps Skin: no symptoms reported Past Wfonpvy-Drztxk-Nnwmnm Hx Past Med/Social Hx: Reviewed Nursing Past Med/Soc Hx Patient Social History 2nd Hand Smoke Exposure: No Recent Foreign Travel: No Contact w/Someone Who Travel: No Recent Hopitalizations: No Immunizations Up To Date Tetanus Booster (TDap): Unknown PED Vaccines UTD: Yes Date of Pneumonia Vaccine: Mar 21, 2015 Date of Influenza Vaccine: Aug 19, 2015 Seasonal Allergies Seasonal Allergies: No Past Medical History Surgeries: Yes (DEFIBRILLATOR PLACED 07/23/15. PEG TUBE--REMOVED, uterine ablation) Abdominal, Section, Defibrillator, Gallbladder, Tracheostomy Respiratory: Yes (ARDS-CODED; PNEUMOTHORAX 06/2015) Pneumonia, Chronic Bronchitis Currently Using CPAP: No Currently Using BIPAP: No Cardiac: Yes (PULMONARY EDEMA/CARDIAC CAUSE-R/T ATRIAL THROMBUS; CARDIAC ARREST;V-FIB ) Cardiomyopathy, Endocarditis, Valvular Heart Disease Neurological: Yes (encephalopathy-hypoxia, anoxic brain injury) Reproductive Disorders: No Sexually Transmitted Disease: No Genitourinary: Yes Renal Failure Gastrointestinal: Yes Gastroesophageal Reflux Musculoskeletal: Yes (GAIT DISTURBANCE) Endocrine: No HEENT: No Loss of Vision: Denies Hearing Impairment: Denies Cancer: No Psychosocial: Yes (per med record) Anxiety, Bipolar, Depression Integumentary: No Blood Disorders: Yes (ANEMIA) Family Medical History Patient reports no known family medical history. No Pertinent Family Hx Physical Exam Vital Signs Vital Signs - First Documented 04/20/19 22:55 Temp 97.6 Pulse 99 Resp 20 B/P (MAP) 150/97 (114) Pulse Ox 100 O2 Delivery Room Air Capillary Refill : Height, Weight, BMI Height: 5'3.00" Weight: 232lbs. 0.1oz. 105.112200jj; 28.34 BMI Method:Stated General Appearance: WD/WN, no apparent distress HEENT: PERRL/EOMI, normal ENT inspection Neck: non-tender Cardiovascular: normal peripheral pulses, regular rate, rhythm, other (Trace pedal edema bilateral no appreciated edema in her upper extremities) Respiratory: lungs clear, normal breath sounds, no respiratory distress, no accessory muscle use Gastrointestinal: non tender, soft Neurologic/Psychiatric: alert, normal mood/affect, oriented x 3 Skin: normal color, warm/dry Progress/Results/Core Measures Results/Orders Vital Signs/I&O 04/20/19 22:55 Temp 97.6 Pulse 99 Resp 20 B/P (MAP) 150/97 (114) Pulse Ox 100 O2 Delivery Room Air Progress Progress Note : Time: 23:20 Progress Note I reviewed the ER visit from [place] yesterday. I discussed with her that at this time there is no further workup warranted as the ER. That she had a negative workup in transfer yesterday that she needs to keep her appointment and follow up with her primary care physician to go over the labs that they had redrawn today. That she has very minimal to trace edema and that she should use Odilon wrap, watch her salt intake, keep her feet up. Patient will be discharged home in stable condition and should follow-up with her primary care physician next week. She should also follow-up with her literacy teacher for further evaluation. Departure Impression Primary Impression: Peripheral edema Additional Impression: CHF (congestive heart failure) Qualified Codes: I50.9 - Heart failure, unspecified Disposition: 01 HOME, SELF-CARE Condition: Stable Departure-Patient Inst. Referrals: [facility] (PCP/Family) Primary Care Physician Patient Instructions: Dependent Edema (DC) VINITA RICHARD DO April 20, 2019 23:21
[2019-04-20 23:29] VITALS: BP 150/97
== END 2019-04-20 23:29 | disposition home or self-care (01) ==
LOC: EDUNIT# 22:37 → ER FS 22:38
DX: I50.9 Heart failure, unspecified (principal); J42 Unspecified chronic bronchitis; I25.2 Old myocardial infarction; K21.9 Gastro-esophageal reflux disease without esophagitis; F41.9 Anxiety disorder, unspecified; F31.9 Bipolar disorder, unspecified; Z79.01 Long term (current) use of anticoagulants; Z88.8 Allergy status to other drugs, medicaments and biological substances; Z95.810 Presence of automatic (implantable) cardiac defibrillator; Z93.0 Tracheostomy status; Z87.01 Personal history of pneumonia (recurrent)
CPT/HCPCS: 99283

== ENCOUNTER 2019-05-05 18:05 | Emergency (ER) | payer MEDICAID ==
[~2019-05-05] VITALS: Ht 160 cm; Wt 104.3 kg
--- NOTE | 2019-05-05 18:17 | ED Cardiac General ---
History of Present Illness General Stated Complaint: PACEMAKER CONCERNS Source: patient Exam Limitations: no limitations History of Present Illness Date Seen by Provider: May 05, 2019 Time Seen by Provider: 18:10 Initial Comments 28-year-old female who presents to the emergency room with complaints of pacemaker alarming. She has been hearing a beeping noise coming from her pacemaker the last 2 days. She denies any symptoms. Denies chest pain shortness of breath, lightheadedness. Timing/Duration: 1-2 days Allergies and Home Medications Allergies Coded Allergies: JIA Inhibitors (Verified Allergy, Severe, 04/12/19) ARB-Angiotensin Receptor Antagonist (Verified Allergy, Severe, 07/24/15) baclofen (Unverified Allergy, Unknown, 03/24/15) ON H&P phenazopyridine (Unverified Allergy, Unknown, 03/24/15) ON H&P Home Medications Albuterol Sulfate 8 Gm Hfa.aer.ad, 2 PUFF INH Q6H PRN for SHORTNESS OF BREATH, (Reported) Amlodipine Besylate 10 Mg Tablet, 10 MG PO DAILY, (Reported) Apixaban 5 Mg Tablet, 5 MG PO BID Prescribed by: RALPH DELCID on 11/01/18 185 Azithromycin 250 Mg Tablet, 250 MG PO UD TAKE 2 TABLETS TODAY, THEN TAKE 1 TABLET DAILY FOR 4 MORE DAYS Prescribed by: NIK CELIS on 01/01/19 183 Meloxicam 7.5 Mg Tablet, 7.5 MG PO Q12H PRN for elbow pain Prescribed by: DELIO ARIZA on 04/09/19 0125 Metoprolol Tartrate 50 Mg Tablet, 50 MG PO BID Prescribed by: FELECIA PATTERSON on 07/24/15 0841 Prednisone 10 Mg Tab.ds.pk, 10 MG PO UD Prescribed by: NIK CELIS on 01/01/19 183 Venlafaxine HCl 150 Mg Tab.er.24, 150 MG PO DAILY, (Reported) Warfarin Sodium 4 Mg Tablet, 8 MG PO HS, (Reported) TAKES 2 (4MG) TABLETS Patient Home Medication List Home Medication List Reviewed: Yes Review of Systems Review of Systems Constitutional: see HPI; No chills, No fever Cardiovascular: See HPI, Other (pacemaker alarming) All Other Systems Reviewed Negative Unless Noted: Yes Past Olqafmi-Qoxnwf-Esxtvf Hx Past Med/Social Hx: Reviewed Nursing Past Med/Soc Hx Patient Social History 2nd Hand Smoke Exposure: No Recent Foreign Travel: No Contact w/Someone Who Travel: No Recent Hopitalizations: No Immunizations Up To Date Tetanus Booster (TDap): Unknown PED Vaccines UTD: Yes Date of Pneumonia Vaccine: Mar 21, 2015 Date of Influenza Vaccine: Aug 19, 2015 Seasonal Allergies Seasonal Allergies: No Past Medical History Surgeries: Yes (DEFIBRILLATOR PLACED 07/23/15. PEG TUBE--REMOVED, uterine ablation) Abdominal, Section, Defibrillator, Gallbladder, Tracheostomy Respiratory: Yes (ARDS-CODED; PNEUMOTHORAX 06/2015) Pneumonia, Chronic Bronchitis Currently Using CPAP: No Currently Using BIPAP: No Cardiac: Yes (PULMONARY EDEMA/CARDIAC CAUSE-R/T ATRIAL THROMBUS; CARDIAC ARREST;V-FIB ) Cardiomyopathy, Endocarditis, Valvular Heart Disease Neurological: Yes (encephalopathy-hypoxia, anoxic brain injury) Reproductive Disorders: No Sexually Transmitted Disease: No Genitourinary: Yes Renal Failure Gastrointestinal: Yes Gastroesophageal Reflux Musculoskeletal: Yes (GAIT DISTURBANCE) Endocrine: No HEENT: No Loss of Vision: Denies Hearing Impairment: Denies Cancer: No Psychosocial: Yes (per med record) Anxiety, Bipolar, Depression Integumentary: No Blood Disorders: Yes (ANEMIA) Family Medical History Reviewed Nursing Family Hx Patient reports no known family medical history. No Pertinent Family Hx Physical Exam Vital Signs Vital Signs - First Documented 05/05/19 18:11 Temp 97.5 Pulse 86 Resp 24 B/P (MAP) 144/108 (120) Pulse Ox 93 O2 Delivery Room Air Capillary Refill : Height, Weight, BMI Height: 5'3.00" Weight: 234lbs. 0oz. 106.612104zd; 28.34 BMI Method:Stated General Appearance: No Apparent Distress, WD/WN Respiratory: Chest Non Tender, Lungs Clear, Normal Breath Sounds, No Accessory Muscle Use, No Respiratory Distress Cardiovascular: Regular Rate, Rhythm, No Edema, No Gallop, No JVD, No Murmur, Normal Peripheral Pulses Extremity: Normal Capillary Refill Neurologic/Psychiatric: Alert, Oriented x3 Skin: Normal Color, Warm/Dry Progress/Results/Core Measures Results/Orders Lab Results Laboratory Tests Test 05/05/19 18:30 Range/Units White Blood Count 7.8 4.3-11.0 10^3/uL Red Blood Count 4.78 4.35-5.85 10^6/uL Hemoglobin 13.4 11.5-16.0 G/DL Hematocrit 41 35-52 % Mean Corpuscular Volume 86 80-99 FL Mean Corpuscular Hemoglobin 28 25-34 PG Mean Corpuscular Hemoglobin Concent 32 32-36 G/DL Red Cell Distribution Width 15.7 H 10.0-14.5 % Platelet Count 356 130-400 10^3/uL Mean Platelet Volume 8.8 7.4-10.4 FL Neutrophils (%) (Auto) 55 42-75 % Lymphocytes (%) (Auto) 38 12-44 % Monocytes (%) (Auto) 7 0-12 % Eosinophils (%) (Auto) 1 0-10 % Basophils (%) (Auto) 0 0-10 % Neutrophils # (Auto) 4.3 1.8-7.8 X 10^3 Lymphocytes # (Auto) 2.9 1.0-4.0 X 10^3 Monocytes # (Auto) 0.5 0.0-1.0 X 10^3 Eosinophils # (Auto) 0.0 0.0-0.3 10^3/uL Basophils # (Auto) 0.0 0.0-0.1 10^3/uL Prothrombin Time 13.0 12.2-14.7 SEC INR Comment 0.9 0.8-1.4 Activated Partial Thromboplast Time 30 24-35 SEC Sodium Level 142 135-145 MMOL/L Potassium Level 4.5 3.6-5.0 MMOL/L Chloride Level 107 98-107 MMOL/L Carbon Dioxide Level 24 21-32 MMOL/L Anion Gap 11 5-14 MMOL/L Blood Urea Nitrogen 17 7-18 MG/DL Creatinine 1.75 H 0.60-1.30 MG/DL Estimat Glomerular Filtration Rate 41 BUN/Creatinine Ratio 10 Glucose Level 103 70-105 MG/DL Calcium Level 9.3 8.5-10.1 MG/DL Corrected Calcium 9.5 8.5-10.1 MG/DL Magnesium Level 2.1 1.8-2.4 MG/DL Total Bilirubin 0.3 0.1-1.0 MG/DL Aspartate Amino Transf (AST/SGOT) 21 5-34 U/L Alanine Aminotransferase (ALT/SGPT) 18 0-55 U/L Alkaline Phosphatase 73 40-136 U/L Myoglobin 113.8 H 10.0-92.0 NG/ML Troponin I < 0.028 <0.028 NG/ML B-Type Natriuretic Peptide 202.6 H <100.0 PG/ML Total Protein 6.7 6.4-8.2 GM/DL Albumin 3.7 3.2-4.5 GM/DL Amylase Level 104 25-125 U/L Lipase 22 8-78 U/L My Orders Orders - NIK CELIS Cbc With Automated Diff (05/05/19 18:12) Magnesium (05/05/19 18:12) Chest 1 View, Ap/Pa Only (05/05/19 18:12) Ekg Tracing (05/05/19 18:12) Cardiac Profile 1 (05/05/19 18:12) Comprehensive Metabolic Panel (05/05/19 18:12) Myoglobin Serum (05/05/19 18:12) Protime With Inr (05/05/19 18:12) Partial Thromboplastin Time (05/05/19 18:12) O2 (05/05/19 18:12) Monitor-Rhythm Ecg Trace Only (05/05/19 18:12) Ed Iv/Invasive Line Start (05/05/19 18:12) Lipase (05/05/19 18:12) Amylase (05/05/19 18:12) BNP (05/05/19 18:12) Vital Signs/I&O 05/05/19 05/05/19 18:11 20:26 Temp 97.5 97.5 Pulse 86 87 Resp 24 18 B/P (MAP) 144/108 (120) 123/98 (106) Pulse Ox 93 97 O2 Delivery Room Air Room Air Progress Progress Note : Time: 19:45 Progress Note I have seen and evaluated the patient. I have informed her of her laboratory, imaging, and [employer] interpretation. I have discussed these findings with Dr. Patterson. He recommends having the patient follow-up in his office on Tuesday. She agrees with plan of care, plans for discharge, return precautions were given. Departure Impression Primary Impression: pacemaker evaluation Disposition: HOME, SELF-CARE Condition: Stable/Unchanged Departure-Patient Inst. Decision time for Depature: 20:16 Referrals: [facility] ([facility]P/Family) Primary Care Physician Patient Instructions: Pacemaker Check Add. Discharge Instructions: Resume your home medications as previously prescribed. Call Tuesday morning to schedule an appointment with Dr. Patterson to be seen in his office that day. Return back to the emergency room for worsening symptoms or concerns as needed. Follow- up with her primary care provider as needed. NIK CELIS May 05, 2019 18:16
[2019-05-05 18:40] LABS: BASOPHILS % (AUTO) 0 % (0-10); EOSINOPHILS % (AUTO) 1 % (0-10); HEMATOCRIT 41 % (35-52); HEMOGLOBIN 13.4 G/DL (11.5-16.0); LYMPHOCYTES # (AUTO) 2.9 X 10^3 (1.0-4.0); LYMPHOCYTES % (AUTO) 38 % (12-44); MEAN CORPUSCULAR HEMOGLOBIN 28 PG (25-34); MEAN CORPUSCULAR HGB CONC 32 G/DL (32-36); MEAN CORPUSCULAR VOLUME 86 FL (80-99); MEAN PLATELET VOLUME 8.8 FL (7.4-10.4); MONOCYTES # (AUTO) 0.5 X 10^3 (0.0-1.0); MONOCYTES % (AUTO) 7 % (0-12); NEUTROPHILS # (AUTO) 4.3 X 10^3 (1.8-7.8); NEUTROPHILS % (AUTO) 55 % (42-75); PLATELET COUNT 356 10^3/uL (130-400); RED CELL DISTRIBUTION WIDTH 15.7 % (10.0-14.5); WHITE BLOOD COUNT 7.8 10^3/uL (4.3-11.0)
[2019-05-05 18:48] LABS: INR 0.9 (0.8-1.4)
[2019-05-05 18:56] LABS: ALANINE AMINOTRANSFERASE 18 U/L (0-55); ALBUMIN 3.7 GM/DL (3.2-4.5); ALKALINE PHOSPHATASE 73 U/L (40-136); AMYLASE 104 U/L (25-125); BILIRUBIN,TOTAL 0.3 MG/DL (0.1-1.0); BUN/CREATININE RATIO 10; CALCIUM 9.3 MG/DL (8.5-10.1); CARBON DIOXIDE 24 MMOL/L (21-32); CHLORIDE 107 MMOL/L (98-107); CREATININE SERUM 1.75 MG/DL (0.60-1.30); GFR ESTIMATED 41; GLUCOSE 103 MG/DL (70-105); LIPASE 22 U/L (8-78); MAGNESIUM 2.1 MG/DL (1.8-2.4); POTASSIUM 4.5 MMOL/L (3.6-5.0); SODIUM 142 MMOL/L (135-145); TOTAL PROTEIN 6.7 GM/DL (6.4-8.2)
--- NOTE | 2019-05-05 19:07 | NUR ---
report given to lisa cortés
--- NOTE | 2019-05-05 19:46 | Diagnostic Imaging Report ---
EXAMINATION: Portable erect AP chest at 6:38 PM INDICATION: Defibrillator is making noise. The heart size is within normal limits and stable when compared to 04/19/2019. The left-sided defibrillator device seen on the prior study is again evident. The device appears to be unchanged in position. The lungs are clear. There is no sign of failure, pneumonia or pleural effusion. The mediastinum is not widened. The osseous structures are intact. IMPRESSION: 1. There is no evidence for an acute cardiopulmonary abnormality. 2. The left-sided defibrillator device seems stable when compared to the prior exam. Clinical followup is recommended, however. Dictated by: Dictated on workstation # [id number]
[2019-05-05 20:26] VITALS: BP 123/98
== END 2019-05-05 20:26 | disposition home or self-care (01) ==
LOC: EDUNIT# 18:05 → ER 18:06
DX: T82.198A Other mechanical complication of other cardiac electronic device, initial encounter (principal); I25.2 Old myocardial infarction; I42.9 Cardiomyopathy, unspecified; K21.9 Gastro-esophageal reflux disease without esophagitis; F41.9 Anxiety disorder, unspecified; F31.9 Bipolar disorder, unspecified; D64.9 Anemia, unspecified; Z86.79 Personal history of other diseases of the circulatory system; Z88.8 Allergy status to other drugs, medicaments and biological substances; Z79.01 Long term (current) use of anticoagulants; Z79.52 Long term (current) use of systemic steroids; Z95.810 Presence of automatic (implantable) cardiac defibrillator; Z98.890 Other specified postprocedural states; Z93.0 Tracheostomy status; Z87.01 Personal history of pneumonia (recurrent)
CPT/HCPCS: 36415; 71045; 80053; 82150; 83690; 83735; 83874; 83880; 84484; 85025; 85610; 85730; 93005; 93041

== ENCOUNTER 2019-05-09 19:34 | Observation (INO) | payer MEDICAID ==
[~2019-05-09] VITALS: Ht 160 cm; Wt 112.7 kg
[2019-05-09] MEDS ORDERED: ASPIRIN 81 MG CHEW (CHILDREN'S ASA) PO ONE (20:30)
[2019-05-09] MEDS ORDERED: morphine INJ 10 MG/ML 1ML (SYR OR VIAL) IVP ONE (20:30)
--- NOTE | 2019-05-09 20:34 | ED Chest Pain ---
General Chief Complaint: Chest Pain Stated Complaint: LT ARM PAIN AND NUMBNESS History of Present Illness Date Seen by Provider: May 09, 2019 Time Seen by Provider: 20:15 Initial Comments The patient is a pleasant obese 28-year-old female who presents for evaluation of left-sided chest pain and shortness of breath that started a few hours ago. She reports that approximate 4 years ago she coded due to a "blood clot in my heart" and ended up with a pacemaker/defibrillator. She states that there is a problem with one of the leads of her pacemaker and that she is supposed to have it replaced/repaired at soon. She does not yet have an appointment made. She states the is supposed to be contacting them soon. She says left-sided chest pain wraps around the side of her chest wall to her back. She states that palpation in movement of her chest wall makes the pain worse. Deep breathing does not seem to have an effect. Laying still makes the pain better. She takes Eliquis and has not missed any doses. She denies any history of DVT or PE. She denies fevers or chills, abdominal pain, nausea or vomiting, diaphoresis, dizziness or syncope, palpitations, or exertional dyspnea. Severity/Quality: moderate Location: other (left chest wall) Radiation: back (and left lateral chest wall) Activities at Onset: none Prior CP/Workup: other ("blood clot in heart"/cardiac arrest) ASA po DOG POUND ATTENDANT: No NTG SL DOG POUND ATTENDANT: No Associated Symptoms: shortness of breath Allergies and Home Medications Allergies Coded Allergies: JIA Inhibitors (Verified Allergy, Severe, 04/12/19) ARB-Angiotensin Receptor Antagonist (Verified Allergy, Severe, 07/24/15) baclofen (Unverified Allergy, Unknown, 03/24/15) ON H&P phenazopyridine (Unverified Allergy, Unknown, 03/24/15) ON H&P Home Medications Albuterol Sulfate 8 Gm Hfa.aer.ad, 2 PUFF INH Q6H PRN for SHORTNESS OF BREATH, (Reported) Amlodipine Besylate 10 Mg Tablet, 10 MG PO DAILY, (Reported) Apixaban 5 Mg Tablet, 5 MG PO BID Prescribed by: RALPH DELCID on 11/01/18 5449 Azithromycin 250 Mg Tablet, 250 MG PO UD TAKE 2 TABLETS TODAY, THEN TAKE 1 TABLET DAILY FOR 4 MORE DAYS Prescribed by: NIK CELIS on 01/01/19 183 Meloxicam 7.5 Mg Tablet, 7.5 MG PO Q12H PRN for elbow pain Prescribed by: DELIO ARIZA on 04/09/19 0125 Metoprolol Tartrate 50 Mg Tablet, 50 MG PO BID Prescribed by: FELECIA PATTERSON on 07/24/15 0841 Prednisone 10 Mg Tab.ds.pk, 10 MG PO UD Prescribed by: NIK CELIS on 01/01/191830 Venlafaxine HCl 150 Mg Tab.er.24, 150 MG PO DAILY, (Reported) Warfarin Sodium 4 Mg Tablet, 8 MG PO HS, (Reported) TAKES 2 (4MG) TABLETS Patient Home Medication List Home Medication List Reviewed: Yes Review of Systems Review of Systems Constitutional: no symptoms reported EENTM: No Symptoms Reported Respiratory: Shortness of Air Cardiovascular: Chest Pain Gastrointestinal: No Symptoms Reported Genitourinary: No Symptoms Reported Musculoskeletal: no symptoms reported Skin: no symptoms reported Psychiatric/Neurological: No Symptoms Reported Endocrine: No Symptoms Reported Hematologic/Lymphatic: No Symptoms Reported All Other Systems Reviewed Negative Unless Noted: Yes Past Smvwlfv-Vzelef-Gprlna Hx Past Med/Social Hx: Reviewed Nursing Past Med/Soc Hx, Reviewed and Corrections made Patient Social History 2nd Hand Smoke Exposure: No Recent Foreign Travel: No Contact w/Someone Who Travel: No Recent Hopitalizations: No Immunizations Up To Date Tetanus Booster (TDap): Unknown PED Vaccines UTD: Yes Date of Pneumonia Vaccine: Mar 21, 2015 Date of Influenza Vaccine: Aug 19, 2015 Seasonal Allergies Seasonal Allergies: No Past Medical History Surgeries: Yes (DEFIBRILLATOR PLACED 07/23/15. PEG TUBE--REMOVED, uterine ablation) Abdominal, Section, Defibrillator, Gallbladder, Tracheostomy Respiratory: Yes (ARDS-CODED; PNEUMOTHORAX 06/2015) Pneumonia, Chronic Bronchitis Currently Using CPAP: No Currently Using BIPAP: No Cardiac: Yes (PULMONARY EDEMA/CARDIAC CAUSE-R/T ATRIAL THROMBUS; CARDIAC ARR EST;V-FIB ) Cardiomyopathy, Endocarditis, Valvular Heart Disease Neurological: Yes (encephalopathy-hypoxia, anoxic brain injury) Reproductive Disorders: No Sexually Transmitted Disease: No Genitourinary: Yes Renal Failure Gastrointestinal: Yes Gastroesophageal Reflux Musculoskeletal: Yes (GAIT DISTURBANCE) Endocrine: No HEENT: No Loss of Vision: Denies Hearing Impairment: Denies Cancer: No Psychosocial: Yes (per med record) Anxiety, Bipolar, Depression Integumentary: No Blood Disorders: Yes (ANEMIA) Family Medical History Patient reports no known family medical history. No Pertinent Family Hx Physical Exam Vital Signs Vital Signs - First Documented 05/09/19 20:34 Temp 98.3 Pulse 80 Resp 20 B/P (MAP) 157/109 (125) Pulse Ox 98 O2 Delivery Room Air Capillary Refill : Height, Weight, BMI Height: 5'3.00" Weight: 230lbs. 0oz. 104.047512dy; 28.34 BMI Method:Stated General Appearance: No Apparent Distress, WD/WN, Other (obese, calm) HEENT: PERRL/EOMI, TMs Normal Neck: Full Range of Motion, Normal Inspection, Non Tender, Supple Respiratory: Lungs Clear, Normal Breath Sounds, No Accessory Muscle Use, No Respiratory Distress, Other (+left chest wall reproducible ttp) Cardiovascular: Regular Rate, Rhythm, No Edema, No JVD, No Murmur, Normal Peripheral Pulses Gastrointestinal: Normal Bowel Sounds, No Organomegaly, No Pulsatile Mass, Non Tender, Soft Extremity: Normal Capillary Refill, Normal Inspection, Normal Range of Motion, Non Tender, No Calf Tenderness Neurologic/Psychiatric: Alert, Oriented x3, No Motor/Sensory Deficits, Normal Mood/Affect, finish opener II-XII Norm as Tested Skin: Normal Color, Warm/Dry Lymphatic: No Adenopathy Progress/Results/Core Measures Results/Orders Lab Results Laboratory Tests Test 05/09/19 20:40 Range/Units White Blood Count 8.4 4.3-11.0 10^3/uL Red Blood Count 4.82 4.35-5.85 10^6/uL Hemoglobin 13.7 11.5-16.0 G/DL Hematocrit 42 35-52 % Mean Corpuscular Volume 88 80-99 FL Mean Corpuscular Hemoglobin 28 25-34 PG Mean Corpuscular Hemoglobin Concent 32 32-36 G/DL Red Cell Distribution Width 15.5 H 10.0-14.5 % Platelet Count 383 130-400 10^3/uL Mean Platelet Volume 8.8 7.4-10.4 FL Neutrophils (%) (Auto) 50 42-75 % Lymphocytes (%) (Auto) 39 12-44 % Monocytes (%) (Auto) 8 0-12 % Eosinophils (%) (Auto) 2 0-10 % Basophils (%) (Auto) 1 0-10 % Neutrophils # (Auto) 4.2 1.8-7.8 X 10^3 Lymphocytes # (Auto) 3.3 1.0-4.0 X 10^3 Monocytes # (Auto) 0.7 0.0-1.0 X 10^3 Eosinophils # (Auto) 0.2 0.0-0.3 10^3/uL Basophils # (Auto) 0.1 0.0-0.1 10^3/uL Sodium Level 140 135-145 MMOL/L Potassium Level 3.9 3.6-5.0 MMOL/L Chloride Level 102 98-107 MMOL/L Carbon Dioxide Level 25 21-32 MMOL/L Anion Gap 13 5-14 MMOL/L Blood Urea Nitrogen 13 7-18 MG/DL Creatinine 1.65 H 0.60-1.30 MG/DL Estimat Glomerular Filtration Rate 44 BUN/Creatinine Ratio 8 Glucose Level 99 70-105 MG/DL Calcium Level 9.5 8.5-10.1 MG/DL Corrected Calcium 9.5 8.5-10.1 MG/DL Magnesium Level 1.9 1.8-2.4 MG/DL Total Bilirubin 0.3 0.1-1.0 MG/DL Aspartate Amino Transf (AST/SGOT) 13 5-34 U/L Alanine Aminotransferase (ALT/SGPT) 12 0-55 U/L Alkaline Phosphatase 79 40-136 U/L Troponin T 6 <=10 NG/L Pro-B-Type Natriuretic Peptide 745.1 H <75.0 PG/ML Total Protein 7.2 6.4-8.2 GM/DL Albumin 4.0 3.2-4.5 GM/DL My Orders Orders - JULEE YOUNG DO Ekg Tracing (05/09/19 20:24) Continuous Ekg Monitoring (05/09/19 20:24) Cbc With Automated Diff (05/09/19 20:26) Magnesium (05/09/19 20:26) Chest 1 View Ap/Pa Only (05/09/19 20:26) Comprehensive Metabolic Panel (05/09/19 20:26) O2 (05/09/19 20:26) Monitor-Rhythm Ecg Trace Only (05/09/19 20:26) Ed Iv/Invasive Line Start (05/09/19 20:26) Troponin T (05/09/19 20:26) Probnp Fs (05/09/19 20:26) Morphine Injection (Morphine Injection (05/09/19 20:30) Aspirin Chewable Tablet (Baby Aspirin Ch (05/09/19 20:30) Creatine Kinase Mb (05/09/19 20:40) Ct Angio Chest W (05/09/19 20:51) Iohexol Injection (Omnipaque 350 Mg/Ml 1 (05/09/19 21:00) Received Contrast (Hold Metformin- Contr (05/09/19 21:00) Sodium Chloride Flush (Catheter Flush Sy (05/09/19 21:00) Ns (Ivpb) (Sodium Chloride 0.9% Ivpb Bag (05/09/19 21:00) Troponin T (05/09/19 22:39) Drug Screen Stat (Urine) (05/09/19 22:47) Medications Given in ED Current Medications Medications Dose Ordered Sig/Mikal Route Start Time Stop Time Status Last Admin Dose Admin Aspirin 324 mg ONCE ONCE PO 05/09/19 20:30 05/09/19 20:31 DC 05/09/19 20:58 324 MG Iohexol 150 ml ONCE ONCE IV 05/09/19 21:00 05/09/19 21:01 DC 05/09/19 21:49 100 ML Morphine Sulfate 4 mg ONCE ONCE IVP 05/09/19 20:30 05/09/19 20:31 DC 05/09/19 20:58 4 MG Sodium Chloride 10 ml NEEDED PRN IV 05/09/19 21:00 05/09/19 21:49 10 ML Sodium Chloride 100 ml ONCE ONCE IV 05/09/19 21:00 05/09/19 21:01 DC 05/09/19 21:49 40 ML Vital Signs/I&O 05/09/19 20:34 Temp 98.3 Pulse 80 Resp 20 B/P (MAP) 157/109 (125) Pulse Ox 98 O2 Delivery Room Air Progress Progress Note : Progress Note @2241 - patient is currently pain-free. She is then updated with her lab and imaging results. She does agree with the plan to be observed overnight. Her BNP is elevated above baseline and her chest pain was unusual for her. Her medical clerical assistant, Dr. Minor, is available to consult at [facility] which is her preferred facility. Dr. Chao excepts admission at [facility]. She requests a cardiology consult with Dr. Patterson. Comment @2028 - Normal sinus rhythm, rate of 78, normal axis, no acute ischemic findings noted, no STEMI, reviewed and interpreted by myself Diagnostic Imaging Comments [facility], [facility]. [place], [place] NAME: SAL [facility]ST [facility] REC#: [id number] PT STATUS: REG ER : 1990 PHYSICIAN: JULEE YOUNG DO ADMIT DATE: 05/09/19/ER FS Draft Date of Exam:05/09/19 CHEST 1 VIEW AP/PA ONLY INDICATION: Mid chest pain with radiation to the back. TECHNIQUE: Single view chest 8:28 PM. CORRELATION STUDY: 05/05/2019 FINDINGS: Left-sided dual-chamber pacemaker remains in place. Heart size remains enlarged but stable. Vasculature overall within normal limits. The lungs are clear with no consolidating infiltrate. There is no significant effusion or pneumothorax. IMPRESSION: 1. Generally stable appearance about the chest. No adverse interval change or findings to suggest acute abnormality. Dictated on workstation # [id number] Dict: 05/09/192056 Trans: 05/09/19 [address] [facility] [id number] Interpreted by: DANIELE MEZA DO Electronically signed by: Departure Impression Primary Impression: Chest pain Additional Impressions: Elevated brain natriuretic peptide (BNP) level AICD (automatic cardioverter/defibrillator) present H/O cardiac arrest Disposition: ADMITTED INPATIENT Condition: Stable Admissions Decision to Admit Reason: Admit from ER (General) Decision to Admit/Date: May 09, 2019 Time/Decision to Admit Time: 22:45 Departure-Patient Inst. Referrals: [facility] [place] (PCP/Family) Primary Care Physician JULEE YOUNG DO May 09, 2019 20:34
[2019-05-09 20:56] LABS: WHITE BLOOD COUNT 8.4 10^3/uL (4.3-11.0)
[2019-05-09 20:57] LABS: BASOPHILS % (AUTO) 1 % (0-10); EOSINOPHILS % (AUTO) 2 % (0-10); HEMATOCRIT 42 % (35-52); HEMOGLOBIN 13.7 G/DL (11.5-16.0); LYMPHOCYTES % (AUTO) 39 % (12-44); MEAN CORPUSCULAR HEMOGLOBIN 28 PG (25-34); MEAN CORPUSCULAR HGB CONC 32 G/DL (32-36); MEAN CORPUSCULAR VOLUME 88 FL (80-99); MEAN PLATELET VOLUME 8.8 FL (7.4-10.4); MONOCYTES % (AUTO) 8 % (0-12); NEUTROPHILS % (AUTO) 50 % (42-75); PLATELET COUNT 383 10^3/uL (130-400); RED CELL DISTRIBUTION WIDTH 15.5 % (10.0-14.5)
[2019-05-09 20:58] LABS: BASOPHILS # (AUTO) 0.1 10^3/uL (0.0-0.1); EOSINOPHILS # (AUTO) 0.2 10^3/uL (0.0-0.3); LYMPHOCYTES # (AUTO) 3.3 X 10^3 (1.0-4.0); MONOCYTES # (AUTO) 0.7 X 10^3 (0.0-1.0); NEUTROPHILS # (AUTO) 4.2 X 10^3 (1.8-7.8)
[2019-05-09] MEDS ORDERED: IOHEXOL 350 MG/ML 150 ML (OMNIPAQUE 350) VIAL IV ONE (21:00)
[2019-05-09] MEDS ORDERED: CATHETER FLUSH 10 ML SYR IV PRN (21:00)
[2019-05-09] MEDS ORDERED: HOLD METFORMIN - RECEIVED CONTRAST 20 ML VIAL IV SCH (21:00)
[2019-05-09] MEDS ORDERED: NS 100 ML (IVPB) BAG IV ONE (21:00)
--- NOTE | 2019-05-09 21:00 | Diagnostic Imaging Report ---
INDICATION: Mid chest pain with radiation to the back. TECHNIQUE: Single view chest 8:28 PM. CORRELATION STUDY: 05/05/2019 FINDINGS: Left-sided dual-chamber pacemaker remains in place. Heart size remains enlarged but stable. Vasculature overall within normal limits. The lungs are clear with no consolidating infiltrate. There is no significant effusion or pneumothorax. IMPRESSION: 1. Generally stable appearance about the chest. No adverse interval change or findings to suggest acute abnormality. Dictated by: Dictated on workstation # [id number]
[2019-05-09 21:27] LABS: BILIRUBIN,TOTAL 0.3 MG/DL (0.1-1.0); CALCIUM 9.5 MG/DL (8.5-10.1); CREATININE SERUM 1.65 MG/DL (0.60-1.30); MAGNESIUM 1.9 MG/DL (1.8-2.4); POTASSIUM 3.9 MMOL/L (3.6-5.0); TOTAL PROTEIN 7.2 GM/DL (6.4-8.2)
--- OUTSIDE RECORDS SUMMARY | 2019-05-09 23:21 | XMS REPORT | Clinical Summary ---
Author Author [facility] Organization [facility] Address Unknown Phone Unavailable Care Team Providers Care Civil Celebrant Name Role Phone Austin Tobias MD Unavailable Rhona Vazquez MD Unavailable Angie Barros MD Unavailable Marilyn Chapa MD PCP Unavailable Source Comments Some departments are not documenting in the electronic medical record. If you d o not see the information that you expected, contact Release of Information in [facility] Information Management department at [phone] for further assistan ce in locating additional records.[facility] Allergies Comments Active Allergy Reactions Severity [...] Phone Address Plan / Dates Group Medicaid [facility] MEDICAID [facility] xxxxxxxxxxx [id number] [employer] [place] ([place]) [place] [address] Advance Directives Patient has advance care planning documents on file. For more information, palak thomas contact: [address] [address]
--- OUTSIDE RECORDS SUMMARY | 2019-05-09 23:25 | XMS REPORT | Continuity of Care Document ---
Author Organization Unknown Address Unknown Allergies Active Description Code Type Severity Reaction Onset Reported/Identified Relationship to Patient Clinical Status Yes bacl bacl Moderate N/A 03/21/2015 Yes baclofen [id number] Drug Allergy Unknown N/A 03/24/2015 Yes phenazopyridine [id number] Drug Allergy Unknown N/A 03/24/2015 Yes ARB-Angiotensin Receptor Antagonist [id number] Drug Allergy Severe N/A 07/24/2015 Yes JIA Inhibitors [id number] Drug Allergy Severe N/A 04/12/2019 Medications There [...] LISSET E Ot 781.2 04/12/2015 KAUR MAZARIEGOS, LISEST E Ot 787.20 04/12/2015 KAUR MAZARIEGOS, LISSET [...] 512.89 OTHER PNEUMOTHORAX 07/29/2015 GELLENDER DO, APRIL Gtuhrie Ot 530.81 ESOPHAGEAL REFLUX 07/29/2015 GELLENDER DO, [...] APRIL A Ot 428.22 07/29/2015 GELLENDER DO, PARIL A Ot 512.89 07/29/2015 GELLENDER DO, APRIL [...] GELLENDER DO, APRIL A Ot V12.53 07/29/2015 APRIL DOMINIQUE DO Ot V45.02 07/29/2015 CATINA TINSLEY APRIL Guthrie Ot V58.61 08/09/2015 KRISTA MAZARIEGOS, [...] MAZARIEGOS, OSMAN Mohan Ot Z95.0 03/03/2016 NERISSA LAURA, BLANCO K Ot 401.9 03/03/2016 NERISSA LAURA, BLANCO K Ot 425.4 03/03/2016 NERISSA LAURA BLANCO K Ot 427.5 03/03/2016 NERISSA LAURA, BLANCO K Ot 428.0 03/03/2016 TONG MAZARIEGOS, [...] Ot 428.0 CONGESTIVE HEART FAILURE NOS 01/12/2018 NERISSA LAURA BLANCO K Ot G93.1 ANOXIC BRAIN DAMAGE, NOT ELSEWHERE CLASS 01/12/2018 NERISSA LAURA BLANCO K Ot I10 ESSENTIAL (PRIMARY) HYPERTENSION 01/12/2018 BLANCO [...] CELIS Ot G89.29 OTHER CHRONIC PAIN 08/05/2018 NKI CELIS Ot I42.9 CARDIOMYOPATHY, UNSPECIFIED 08/05/2018 NIK [...] INITIAL ENCOUNTER 08/05/2018 NIK CELIS Ot Z79.01 KITCHEN BATH DESIGNER (CURRENT) USE OF ANTICOAGULANT 08/05/2018 NIK CELIS Ot Z79.51 KITCHEN BATH DESIGNER (CURRENT) USE OF INHALED STERO 08/05/2018 NIK [...] CELIS Ot F31.9 BIPOLAR DISORDER, UNSPECIFIED 08/08/2018 NIK CELIS Ot F41.9 ANXIETY DISORDER, UNSPECIFIED 08/08/2018 NIK CELIS Ot G89.29 OTHER CHRONIC PAIN 08/08/2018 NIK CELIS Ot I42.9 CARDIOMYOPATHY, UNSPECIFIED 08/08/2018 NIK CELIS Ot K21.9 GASTRO- ESOPHAGEAL REFLUX DISEASE WITHOUT 08/08/2018 NIK CELIS Ot M25.571 PAIN IN RIGHT [...] INITIAL ENCOUNTER 08/08/2018 NIK CELIS Ot Z79.01 KITCHEN BATH DESIGNER (CURRENT) USE OF ANTICOAGULANT 08/08/2018 NIK CELIS Ot Z79.51 SKILLED NURSING (CURRENT) USE OF INHALED STERO 08/08/2018 NIK [...] UNSPECIFIED 10/24/2018 FELECIA FORTUNE MD, Ot Z79.01 KITCHEN BATH DESIGNER (CURRENT) USE OF ANTICOAGULANT 11/01/2018 RALPH LÓPEZ [...] HEADACHE 11/01/2018 RALPH LÓPEZ MD, Ot Z79.01 SKILLED NURSING (CURRENT) USE OF ANTICOAGULANT 11/01/2018 RALPH LÓPEZ MD Ot Z79.51 SKILLED NURSING (CURRENT) USE OF INHALED STERO 11/01/2018 RALPH [...] R07.89 OTHER CHEST PAIN 11/03/2018 RALPH LÓPEZ MD Ot R51 HEADACHE 11/03/2018 RALPH LÓPEZ MD Ot Z79.01 SKILLED NURSING (CURRENT) USE OF ANTICOAGULANT 11/03/2018 RALPH LÓPEZ MD Ot Z79.51 SKILLED NURSING (CURRENT) USE OF INHALED STERO 11/03/2018 RALPH [...] F41.9 ANXIETY DISORDER, UNSPECIFIED 11/09/2018 RALPH LÓPEZ MD Ot I12.9 HYPERTENSIVE CHRONIC [...] MD, Ot R07.89 OTHER CHEST PAIN 11/09/2018 RLAPH LÓPEZ MD, Ot R51 HEADACHE 11/09/2018 RALPH LÓPEZ MD, Ot Z79.01 SKILLED NURSING (CURRENT) USE OF ANTICOAGULANT 11/09/2018 RALPH LÓPEZ MD Ot Z79.51 KITCHEN BATH DESIGNER (CURRENT) USE OF INHALED STERO 11/09/2018 RALPH [...] R05 COUGH 01/01/2019 NIK CELIS Ot Z79.01 KITCHEN BATH DESIGNER (CURRENT) USE OF ANTICOAGULANT 01/01/2019 NIK CLEIS Ot Z79.51 KITCHEN BATH DESIGNER (CURRENT) USE OF INHALED STERO 01/01/2019 NIK CELIS Ot Z87.01 PERSONAL HISTORY OF PNEUMONIA (RECURRENT 01/01/2019 NIK CELIS Ot Z87.448 PERSONAL HISTORY OF OTHER DISEASES OF UR 01/01/2019 NIK CELIS Ot Z87.820 PERSONAL HISTORY OF TRAUMATIC BRAIN INJU 01/01/2019 NIK CELIS Ot Z87.891 PERSONAL HISTORY OF NICOTINE DEPENDENCE 01/01/2019 NIK CELIS Ot Z88.8 ALLERGY STATUS TO [facility] DRUG/MEDS/BIOL SUB 01/01/2019 NIK CELIS Ot [...] UNSPECIFIED 01/05/2019 FELECIA FORTUNE MD Ot Z79.01 SKILLED NURSING (CURRENT) USE OF ANTICOAGULANT 01/06/2019 BLANCO BERMAN [...] UNSPECIFIED 01/06/2019 FELECIA FORTUNE MD, Ot Z79.01 SKILLED NURSING (CURRENT) USE OF ANTICOAGULANT 01/06/2019 FEDE AMARO MD, Ot D64.9 ANEMIA, UNSPECIFIED 01/06/2019 FEDE AMARO MD Ot F31.9 BIPOLAR DISORDER, UNSPECIFIED 01/06/2019 FEDE AMARO MD, Ot F41.9 ANXIETY DISORDER, UNSPECIFIED 01/06/2019 FEDE AMARO MD, Ot I25.2 OLD MYOCARDIAL INFARCTION 01/06/2019 FEDE AMARO MD, Ot I42.9 CARDIOMYOPATHY, UNSPECIFIED 01/06/2019 FEDE AMARO MD, Ot K21.9 GASTRO-ESOPHAGEAL REFLUX DISEASE WITHOUT 01/06/2019 FEDE AMARO MD Ot R07.89 OTHER CHEST PAIN 01/06/2019 FEDE AMARO MD Ot S29.011A STRAIN OF MUSCLE AND TENDON OF FRONT WAL 01/06/2019 FEDE AMARO MD Ot W00.9XXA UNSPECIFIED FALL DUE TO ICE AND SNOW, IN 01/06/2019 FEDE AMARO MD, Ot Z79.01 KITCHEN BATH DESIGNER (CURRENT) USE OF ANTICOAGULANT 01/06/2019 FEDE AMARO MD, Ot Z79.51 KITCHEN BATH DESIGNER (CURRENT) USE OF INHALED STERO 01/06/2019 FEDE AMARO MD, Ot Z79.52 KITCHEN BATH DESIGNER (CURRENT) USE OF SYSTEMIC STER 01/06/2019 FEDE AMARO MD, Ot Z86.711 PERSONAL HISTORY OF PULMONARY EMBOLISM 01/06/2019 FEDE AMARO MD, Ot Z87.01 PERSONAL HISTORY OF PNEUMONIA (RECURRENT 01/06/2019 FEDE AMRAO MD, Ot Z87.09 PERSONAL HISTORY OF OTHER DISEASES OF TH 01/06/2019 FEDE AMARO MD, Ot Z87.448 PERSONAL HISTORY OF OTHER DISEASES OF UR 01/06/2019 FEDE AMARO MD, Ot Z87.820 PERSONAL HISTORY OF TRAUMATIC BRAIN INJU 01/06/2019 FEDE AMARO MD, Ot Z88.8 ALLERGY STATUS TO [facility] DRUG/MEDS/BIOL SUB 01/06/2019 FEDE AMARO MD, Ot Z93.0 TRACHEOSTOMY STATUS 01/06/2019 FEDE AMARO MD, Ot Z95.810 PRESENCE OF AUTOMATIC (IMPLANTABLE) CARD 01/06/2019 FEDE AMARO MD, Ot Z98.890 OTHER SPECIFIED POSTPROCEDURAL STATES 01/07/2019 NIK CELIS Ot F31.9 BIPOLAR DISORDER, UNSPECIFIED 01/07/2019 NIK CELIS Ot F41.9 ANXIETY DISORDER, UNSPECIFIED 01/07/2019 NIK CELIS Ot I42.9 CARDIOMYOPATHY, UNSPECIFIED 01/07/2019 NIK CELIS Ot J40 BRONCHITIS, NOT SPECIFIED ACUTE OR CH 01/07/2019 NIK CELIS Ot K21.9 GASTRO- ESOPHAGEAL REFLUX DISEASE WITHOUT 01/07/2019 NIK CELIS Ot R05 COUGH 01/07/2019 NIK CELIS Ot Z79.01 SKILLED NURSING (CURRENT) USE OF ANTICOAGULANT 01/07/2019 NIK CELIS Ot Z79.51 KITCHEN BATH DESIGNER (CURRENT) USE OF INHALED STERO 01/07/2019 NIK CELIS Ot Z87.01 PERSONAL HISTORY OF PNEUMONIA (RECURRENT 01/07/2019 PEDRO CELISIS Ot Z87.448 PERSONAL HISTORY OF OTHER DISEASES OF UR 01/07/2019 LALITA NIK Ot Z87.820 PERSONAL HISTORY OF TRAUMATIC BRAIN INJU 01/07/2019 LALITA NIK Ot Z87.891 PERSONAL HISTORY OF NICOTINE DEPENDENCE 01/07/2019 PEDRO CELISIS Ot Z88.8 ALLERGY STATUS TO [facility] DRUG/MEDS/BIOL SUB 01/07/2019 LALITA NIK Ot Z93.0 TRACHEOSTOMY STATUS 01/07/2019 PEDRO CELISIS Ot Z95.810 PRESENCE OF AUTOMATIC (IMPLANTABLE) CARD 01/07/2019 LALITA NIK Ot Z98.890 OTHER SPECIFIED POSTPROCEDURAL STATES 01/09/2019 [...] TENDON OF FRONT WAL 01/09/2019 FEDE AMARO MD, Ot W00.9XXA UNSPECIFIED FALL DUE TO ICE AND SNOW, IN 01/09/2019 FEDE AMARO MD Ot Z79.01 KITCHEN BATH DESIGNER (CURRENT) USE OF ANTICOAGULANT 01/09/2019 FEDE AMARO MD Ot Z79.51 KITCHEN BATH DESIGNER (CURRENT) USE OF INHALED STERO 01/09/2019 FEDE AMARO MD Ot Z79.52 SKILLED NURSING (CURRENT) USE OF SYSTEMIC STER 01/09/2019 FEDE [...] AMARO MD, Ot Z88.8 ALLERGY STATUS TO [facility] DRUG/MEDS/BIOL SUB 01/09/2019 FEDE AMARO MD, Ot Z93.0 TRACHEOSTOMY STATUS 01/09/2019 FEDE AMARO MD, Ot Z95.810 PRESENCE OF AUTOMATIC (IMPLANTABLE) CARD 01/09/2019 FEDE AMARO MD, Ot Z98.890 OTHER SPECIFIED POSTPROCEDURAL STATES 04/09/2019 DELIO ARIZA DO, Ot D64.9 ANEMIA, UNSPECIFIED 04/09/2019 DELIO ARIZA DO, Ot F31.9 BIPOLAR DISORDER, UNSPECIFIED 04/09/2019 DELIO ARIZA DO, Ot F41.9 ANXIETY DISORDER, UNSPECIFIED 04/09/2019 DELIO ARIZA DO, Ot I25.2 OLD MYOCARDIAL INFARCTION 04/09/2019 DELIO ARIZA DO, Ot I42.9 CARDIOMYOPATHY, UNSPECIFIED 04/09/2019 DELIO ARIZA DO, Ot K21.9 GASTRO-ESOPHAGEAL REFLUX DISEASE WITHOUT 04/09/2019 DELIO ARIZA DO, Ot M25.522 PAIN IN LEFT ELBOW 04/09/2019 DELIO ARIZA DO, Ot Z79.01 SKILLED NURSING (CURRENT) USE OF ANTICOAGULANT 04/09/2019 DELIO ARIZA DO, Ot Z79.52 KITCHEN BATH DESIGNER (CURRENT) USE OF SYSTEMIC STER 04/09/2019 DELIO ARIZA DO, Ot Z86.69 PERSONAL HISTORY OF DIS OF THE NERVOUS S 04/09/2019 DELIO ARIZA DO, Ot Z86.79 PERSONAL HISTORY OF OTHER DISEASES OF TH 04/09/2019 DELIO ARIZA DO, Ot Z87.01 PERSONAL HISTORY OF PNEUMONIA (RECURRENT 04/09/2019 DELIO ARIZA DO, Ot Z87.09 PERSONAL HISTORY OF OTHER DISEASES OF TH 04/09/2019 DELIO ARIZA DO, Ot Z88.8 ALLERGY STATUS TO [facility] DRUG/MEDS/BIOL SUB 04/09/2019 DELIO ARIZA DO, Ot Z93.0 TRACHEOSTOMY STATUS 04/09/2019 DELIO ARIZA DO Ot Z95.810 PRESENCE OF AUTOMATIC (IMPLANTABLE) CARD 04/09/2019 DELIO ARIZA DO Ot Z98.890 OTHER SPECIFIED POSTPROCEDURAL STATES 04/09/2019 [...] THROMBOSIS, NOT ELSEWHERE C 04/09/2019 FELECIA FORTUNE MD 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, AORTIC 04/09/2019 FELECIA FORTUNE MD Ot I10 ESSENTIAL (PRIMARY) HYPERTENSION 04/09/2019 FELECIA FORTUNE MD Ot I25.2 OLD MYOCARDIAL INFARCTION 04/09/2019 FELECIA FORTUNE MD Ot I42.9 CARDIOMYOPATHY, UNSPECIFIED 04/09/2019 FELECIA FORTUNE MD Ot R00.1 BRADYCARDIA, UNSPECIFIED 04/09/2019 FELECIA FORTUNE MD Ot Z79.01 SKILLED NURSING (CURRENT) USE OF ANTICOAGULANT 04/12/2019 DELIO ARIZA DO, Ot D64.9 ANEMIA, UNSPECIFIED 04/12/2019 DELIO ARIZA DO Ot F31.9 BIPOLAR DISORDER, UNSPECIFIED 04/12/2019 DELIO ARIZA DO, Ot F41.9 ANXIETY DISORDER, UNSPECIFIED 04/12/2019 DELIO ARIZA DO, Ot I25.2 OLD MYOCARDIAL INFARCTION 04/12/2019 DELIO ARIZA DO, Ot I42.9 CARDIOMYOPATHY, UNSPECIFIED 04/12/2019 DELIO ARIZA DO, Ot K21.9 GASTRO-ESOPHAGEAL REFLUX DISEASE WITHOUT 04/12/2019 DELIO ARIZA DO, Ot M25.522 PAIN IN LEFT ELBOW 04/12/2019 DELIO ARIZA DO, Ot Z79.01 KITCHEN BATH DESIGNER (CURRENT) USE OF ANTICOAGULANT 04/12/2019 DELIO ARIZA DO, Ot Z79.52 KITCHEN BATH DESIGNER (CURRENT) USE OF SYSTEMIC STER 04/12/2019 DELIO ARIZA DO, Ot Z86.69 PERSONAL HISTORY OF DIS OF THE NERVOUS S 04/12/2019 DELIO ARIZA DO, Ot Z86.79 PERSONAL HISTORY OF OTHER DISEASES OF 04/12/2019 DELIO ARIZA DO, Ot Z87.01 PERSONAL HISTORY OF PNEUMONIA (RECURRENT 04/12/2019 DELIO ARIZA DO, Ot Z87.09 PERSONAL HISTORY OF OTHER DISEASES OF 04/12/2019 DELIO ARIZA DO, Ot Z88.8 ALLERGY STATUS TO [facility] DRUG/MEDS/BIOL SUB 04/12/2019 DELIO ARIZA DO Ot Z93.0 TRACHEOSTOMY STATUS 04/12/2019 DELIO ARIZA DO, Ot Z95.810 PRESENCE OF AUTOMATIC (IMPLANTABLE) CARD 04/12/2019 DELIO ARIZA DO, Ot Z98.890 OTHER SPECIFIED POSTPROCEDURAL STATES 04/12/2019 EDISON CHAMBERLAIN MD, Ot D64.9 ANEMIA, UNSPECIFIED 04/12/2019 EDISON CHAMBERLAIN MD, Ot F31.9 BIPOLAR DISORDER, UNSPECIFIED 04/12/2019 EDISON CHAMBERLAIN MD, Ot F41.9 ANXIETY DISORDER, UNSPECIFIED 04/12/2019 EDISON CHAMBERLAIN MD, Ot I10 ESSENTIAL (PRIMARY) HYPERTENSION 04/12/2019 EDISON CHAMBERLAIN MD, Ot I25.2 OLD MYOCARDIAL INFARCTION 04/12/2019 EDISON CHAMBERLAIN MD, Ot I42.9 CARDIOMYOPATHY, UNSPECIFIED 04/12/2019 EDISON CHAMBERLAIN MD, Ot K21.9 GASTRO-ESOPHAGEAL REFLUX DISEASE WITHOUT 04/12/2019 EDISON CHAMBERLAIN MD, Ot N28.9 DISORDER OF KIDNEY AND URETER, UNSPECIFI 04/12/2019 EDISON CHAMBERLAIN MD, Ot R10.9 UNSPECIFIED ABDOMINAL PAIN 04/12/2019 EDISON CHAMBERLAIN MD, Ot R11.10 VOMITING, UNSPECIFIED 04/12/2019 EDISON CHAMBERLAIN MD, Ot R51 HEADACHE 04/12/2019 EDISON CHAMBERLAIN MD, Ot Z79.01 SKILLED NURSING (CURRENT) USE OF ANTICOAGULANT 04/12/2019 EDISON CHAMBERLAIN MD, Ot Z79.52 KITCHEN BATH DESIGNER (CURRENT) USE OF SYSTEMIC STER 04/12/2019 EDISON CHAMBERLAIN MD, Ot Z86.73 PRSNL HX OF TIA (TIA), AND CEREB INFRC W 04/12/2019 EDISON CHAMBERLAIN MD, Ot Z87.01 PERSONAL HISTORY OF PNEUMONIA (RECURRENT 04/12/2019 EDISON CHAMBERLAIN MD, Ot Z87.09 PERSONAL HISTORY OF OTHER DISEASES OF TH 04/12/2019 EDISON CHAMBERLAIN MD, Ot Z87.820 PERSONAL HISTORY OF TRAUMATIC BRAIN INJU 04/12/2019 EDISON CHAMBERLAIN MD, Ot Z88.8 ALLERGY STATUS TO [facility] DRUG/MEDS/BIOL SUB 04/12/2019 EDISON CHAMBERLAIN MD, Ot Z93.0 TRACHEOSTOMY STATUS 04/12/2019 EDISON CHAMBERLAIN MD, Ot Z95.810 PRESENCE OF AUTOMATIC (IMPLANTABLE) CARD 04/12/2019 EDISON CHAMBERLAIN MD, Ot Z98.890 OTHER SPECIFIED POSTPROCEDURAL STATES 04/16/2019 EDISON CHAMBERLAIN MD, Ot D64.9 ANEMIA, UNSPECIFIED 04/16/2019 EDISON CHAMBERLAIN MD, Ot F31.9 BIPOLAR DISORDER, UNSPECIFIED 04/16/2019 EDISON CHAMBERLAIN MD, Ot F41.9 ANXIETY DISORDER, UNSPECIFIED 04/16/2019 ENYART MD, EDISON E Ot I10 ESSENTIAL (PRIMARY) HYPERTENSION 04/16/2019 EDISON [...] HEADACHE 04/16/2019 EDISON CHAMBERLAIN MD, Ot Z79.01 SKILLED NURSING (CURRENT) USE OF ANTICOAGULANT 04/16/2019 EDISON CHAMBERLAIN MD, Ot Z79.52 SKILLED NURSING (CURRENT) USE OF SYSTEMIC STER 04/16/2019 EDISON [...] CHAMBERLAIN MD, Ot Z88.8 ALLERGY STATUS TO OT DRUG/MEDS/BIOL SUB 04/16/2019 EDISON CHAMBERLAIN MD, Ot Z93.0 TRACHEOSTOMY STATUS 04/16/2019 EDISON CHAMBERLAIN MD, Ot Z95.810 PRESENCE OF AUTOMATIC (IMPLANTABLE) CARD 04/16/2019 EDISON CHAMBERLAIN MD, Ot Z98.890 OTHER SPECIFIED POSTPROCEDURAL STATES 04/19/2019 LISA MARCELINO APRN Ot D64.9 ANEMIA, UNSPECIFIED 04/19/2019 LISA MARCELINO APRN Ot F31.9 BIPOLAR DISORDER, UNSPECIFIED 04/19/2019 LISA MARCELINO APRN Ot F41.9 ANXIETY DISORDER, UNSPECIFIED 04/19/2019 LISA MARCELINO APRN Ot I25.2 OLD MYOCARDIAL INFARCTION 04/19/2019 LISA MARCELINO APRN Ot I42.9 CARDIOMYOPATHY, UNSPECIFIED 04/19/2019 LISA MARCELINO APRN Ot I50.9 HEART FAILURE, UNSPECIFIED 04/19/2019 LISA MARCELINO APRN Ot K21.9 GASTRO-ESOPHAGEAL REFLUX DISEASE WITHOUT 04/19/2019 LISA MARCELINO APRN Ot R06.09 OTHER FORMS OF DYSPNEA 04/19/2019 LISA MARCELINO APRN Ot R53.81 OTHER MALAISE 04/19/2019 LISA MARCELINO APRN Ot R53.83 OTHER FATIGUE 04/19/2019 LISA MARCELINO APRN Ot Z79.01 KITCHEN BATH DESIGNER (CURRENT) USE OF ANTICOAGULANT 04/19/2019 LISA MARCELINO APRN Ot Z79.52 SKILLED NURSING (CURRENT) USE OF SYSTEMIC STER 04/19/2019 LISA MARCELINO APRN Ot Z86.69 PERSONAL HISTORY OF DIS OF THE NERVOUS S 04/19/2019 LISA MARCELINO APRN Ot Z86.79 PERSONAL HISTORY OF OTHER DISEASES OF TH 04/19/2019 LISA MARCELINO APRN Ot Z87.01 PERSONAL HISTORY OF PNEUMONIA (RECURRENT 04/19/2019 LISA MARCELINO APRN Ot Z87.09 PERSONAL HISTORY OF OTHER DISEASES OF 04/19/2019 LISA MARCELINO APRN Ot Z88.8 ALLERGY STATUS TO [facility] DRUG/MEDS/BIOL SUB 04/19/2019 LISA MARCELINO APRN Ot Z93.0 TRACHEOSTOMY STATUS 04/19/2019 LISA MARCELINO APRN Ot Z95.810 PRESENCE OF AUTOMATIC (IMPLANTABLE) CARD 04/19/2019 LISA MARCELINO APRN Ot Z98.890 OTHER SPECIFIED POSTPROCEDURAL STATES 04/20/2019 RICHARD DO, VINITA L Ot F31.9 BIPOLAR DISORDER, UNSPECIFIED 04/20/2019 RICHARD DO, VINITA L Ot F41.9 ANXIETY DISORDER, UNSPECIFIED 04/20/2019 RICHARD DO, VINITA L Ot I25.2 OLD MYOCARDIAL INFARCTION 04/20/2019 RICHARD DO, VINITA L Ot I50.9 HEART FAILURE, UNSPECIFIED 04/20/2019 RICHARD DO, VINITA L Ot J42 UNSPECIFIED CHRONIC BRONCHITIS 04/20/2019 RICHARD DO, VINITA L Ot K21.9 GASTRO-ESOPHAGEAL REFLUX DISEASE WITHOUT 04/20/2019 RICHARD DO, VINITA L Ot M25.471 EFFUSION, RIGHT ANKLE 04/20/2019 RICHARD DO, VINITA L Ot Z79.01 SKILLED NURSING (CURRENT) USE OF ANTICOAGULANT 04/20/2019 RICHARD DO, VINITA L Ot Z87.01 PERSONAL HISTORY OF PNEUMONIA (RECURRENT 04/20/2019 RICHARD DO, VINITA L Ot Z88.8 ALLERGY STATUS TO [facility] DRUG/MEDS/BIOL SUB 04/20/2019 RICHARD DO, VINITA L Ot Z93.0 TRACHEOSTOMY STATUS 04/20/2019 RICHARD DO, VINITA L Ot Z95.810 PRESENCE OF AUTOMATIC (IMPLANTABLE) CARD 04/25/2019 RICHARD DO, VINITA L Ot F31.9 BIPOLAR DISORDER, UNSPECIFIED 04/25/2019 RICHARD DO, VINITA L Ot F41.9 ANXIETY DISORDER, UNSPECIFIED 04/25/2019 RICHARD DO, VINITA L Ot I25.2 OLD MYOCARDIAL INFARCTION 04/25/2019 RICHARD DO, VINITA L Ot I50.9 HEART FAILURE, UNSPECIFIED 04/25/2019 RICHARD DO, VINITA L Ot J42 UNSPECIFIED CHRONIC BRONCHITIS 04/25/2019 RICHARD DO, VINITA L Ot K21.9 GASTRO-ESOPHAGEAL REFLUX DISEASE WITHOUT 04/25/2019 RICHARD DO, VINITA L Ot M25.471 EFFUSION, RIGHT ANKLE 04/25/2019 RICHARD DO, VINITA L Ot Z79.01 KITCHEN BATH DESIGNER (CURRENT) USE OF ANTICOAGULANT 04/25/2019 RICHARD DO, VINITA L Ot Z87.01 PERSONAL HISTORY OF PNEUMONIA (RECURRENT 04/25/2019 RICHARD DO, VINITA L Ot Z88.8 ALLERGY STATUS TO [facility] DRUG/MEDS/BIOL SUB 04/25/2019 RICHARD DO, VINITA L Ot Z93.0 TRACHEOSTOMY STATUS 04/25/2019 RICHARD DO, VINITA L Ot Z95.810 PRESENCE OF AUTOMATIC (IMPLANTABLE) CARD 05/05/2019 BERNOT, NIK Ot D64.9 ANEMIA, UNSPECIFIED 05/05/2019 BERNOT, NIK Ot F31.9 BIPOLAR DISORDER, UNSPECIFIED 05/05/2019 BERNOT, NIK Ot F41.9 ANXIETY DISORDER, UNSPECIFIED 05/05/2019 BERNOT, NIK Ot I25.2 OLD MYOCARDIAL INFARCTION 05/05/2019 BERNOT, NIK Ot I42.9 CARDIOMYOPATHY, UNSPECIFIED 05/05/2019 NIK CELIS Ot K21.9 GASTRO- ESOPHAGEAL REFLUX DISEASE WITHOUT 05/05/2019 NIK CELIS Ot T82.198A [facility] COMPL OF OTHER CARDIAC ELECTRONIC D 05/05/2019 NIK CELIS Ot Z79.01 SKILLED NURSING (CURRENT) USE OF ANTICOAGULANT 05/05/2019 PEDRO CELISIS Ot Z79.52 SKILLED NURSING (CURRENT) USE OF SYSTEMIC STER 05/05/2019 PEDRO CELISIS Ot Z86.79 PERSONAL HISTORY OF OTHER DISEASES OF TH 05/05/2019 PEDRO CELISIS Ot Z87.01 PERSONAL HISTORY OF PNEUMONIA (RECURRENT 05/05/2019 PEDRO CELISIS Ot Z88.8 ALLERGY STATUS TO [facility] DRUG/MEDS/BIOL SUB 05/05/2019 PEDRO CELISIS Ot Z93.0 TRACHEOSTOMY STATUS 05/05/2019 DANIELKEV NIK Ot Z95.810 PRESENCE OF AUTOMATIC (IMPLANTABLE) CARD 05/05/2019 PEDRO CELISIS Ot Z98.890 OTHER SPECIFIED POSTPROCEDURAL STATES 05/06/2019 BLANCO BERMAN Ot 401.9 HYPERTENSION NOS 05/06/2019 BLANCO BERMAN Ot 425.4 PRIM CARDIOMYOPATHY NEC 05/06/2019 BLANCO BERMAN Ot 427.5 CARDIAC ARREST 05/06/2019 BLANCO BERMAN Ot 428.0 CONGESTIVE HEART FAILURE NOS 05/06/2019 FELECIA FORTUNE MD Ot 397.0 TRICUSPID VALVE DISEASE 05/06/2019 FELECIA FORTUNE MD Ot 401.9 HYPERTENSION NOS 05/06/2019 FELECIA FORTUNE MD Ot 425.4 PRIM CARDIOMYOPATHY NEC 05/06/2019 FELECIA FORTUNE MD Ot 428.0 CONGESTIVE HEART FAILURE NOS 05/06/2019 BLANCO BERMAN Ot G93.1 ANOXIC BRAIN DAMAGE, NOT ELSEWHERE CLASS 05/06/2019 BLANCO BERMAN Ot I10 ESSENTIAL (PRIMARY) HYPERTENSION 05/06/2019 BLANCO BERMAN Ot I50.1 LEFT VENTRICULAR FAILURE 05/06/2019 BLANCO BERMAN Ot R09.2 RESPIRATORY ARREST 05/06/2019 SMITH-ISHA PA, BLANCO K Ot G93.1 ANOXIC BRAIN DAMAGE, NOT ELSEWHERE CLASS 05/06/2019 BLANCO BERMAN Ot I11.0 HYPERTENSIVE HEART DISEASE WITH HEART FA 05/06/2019 BLANCO BERMAN Ot I50.1 LEFT VENTRICULAR FAILURE, UNSPECIFIED 05/06/2019 BLANCO BERMAN Ot I51.3 INTRACARDIAC THROMBOSIS, NOT ELSEWHERE C 05/06/2019 FELECIA FORTUNE MD 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, AORTIC 05/06/2019 FELECIA FORTUNE MD Ot I10 ESSENTIAL (PRIMARY) HYPERTENSION 05/06/2019 FELECIA FORTUNE MD Ot I25.2 OLD MYOCARDIAL INFARCTION 05/06/2019 FELECIA FORTUNE MD Ot I42.9 CARDIOMYOPATHY, UNSPECIFIED 05/06/2019 FELECIA FORTUNE MD Ot R00.1 BRADYCARDIA, UNSPECIFIED 05/06/2019 FELECIA FORTUNE MD Ot Z79.01 SKILLED NURSING (CURRENT) USE OF ANTICOAGULANT 05/09/2019 LALITA, NIK Ot D64.9 ANEMIA, UNSPECIFIED 05/09/2019 BERNKEV, NIK Ot F31.9 BIPOLAR DISORDER, UNSPECIFIED 05/09/2019 BERNOT, NIK Ot F41.9 ANXIETY DISORDER, UNSPECIFIED 05/09/2019 BERNKEV, NIK Ot I25.2 OLD MYOCARDIAL INFARCTION 05/09/2019 LALITA, NIK Ot I42.9 CARDIOMYOPATHY, UNSPECIFIED 05/09/2019 BERNOT, NIK Ot K21.9 GASTRO- ESOPHAGEAL REFLUX DISEASE WITHOUT 05/09/2019 LALITA, NIK Ot T82.198A [facility] COMPL OF OTHER CARDIAC ELECTRONIC D 05/09/2019 LALITA NIK Ot Z79.01 KITCHEN BATH DESIGNER (CURRENT) USE OF ANTICOAGULANT 05/09/2019 BERNKEV, NIK Ot Z79.52 SKILLED NURSING (CURRENT) USE OF SYSTEMIC STER 05/09/2019 PEDRO CELISIS Ot Z86.79 PERSONAL HISTORY OF OTHER DISEASES OF TH 05/09/2019 PEDRO CELISIS Ot Z87.01 PERSONAL HISTORY OF PNEUMONIA (RECURRENT 05/09/2019 PEDRO CELISIS Ot Z88.8 ALLERGY STATUS TO [facility] DRUG/MEDS/BIOL SUB 05/09/2019 NIK CELIS Ot Z93.0 TRACHEOSTOMY STATUS 05/09/2019 NIK CELIS Ot Z95.810 PRESENCE OF AUTOMATIC (IMPLANTABLE) CARD 05/09/2019 NIK CELIS Ot Z98.890 OTHER SPECIFIED POSTPROCEDURAL STATES Procedures [...] 7-25 CREATININE 1.63 mg/dL 0.50-1.10 eGFR NON-AFR. [place]ICAN 42 mL/min/1.73m2 > OR=60 eGFR 48 mL/min/1.73m2 [...] NEGATIVE NEGATIVE Urine propoxyphene detection NEGATIVE NEGATIVE CMP - 04/20/19 10:52 GLUCOSE 83 mg/dL 65-99 UREA NITROGEN (BUN) 22 mg/dL 7-25 CREATININE 1.82 mg/dL 0.50-1.10 eGFR NON-AFR. [place] RICAN 37 mL/min/1.73m2 > OR=60 eGFR 42 mL/min/1.73m2 > OR=60 BUN/CREATININE RATIO 12 (calc) 6-22 SODIUM 140 mmol/L 135-146 POTASSIUM 4.6 mmol/L 3.5-5.3 CHLORIDE 105 mmol/L 98-110 CARBON DIOXIDE 26 mmol/L 20-32 CALCIUM 9.4 mg/dL 8.6-10.2 PROTEIN, TOTAL 6.0 g/dL 6.1-8.1 ALBUMIN 3.6 g/dL 3.6-5.1 GLOBULIN 2.4 g/dL (calc) 1.9-3.7 ALBUMIN/GLOBULIN RATIO 1.5 (calc) 1.0-2.5 BILIRUBIN, TOTAL 0.2 mg/dL 0.2-1.2 ALKALINE PHOSPHATASE 71 U/L 33-115 AST 11 U/L 10-30 ALT 14 U/L 6-29 Complete blood count (CBC) with automated white blood cell (WBC) differential - 05/05/19 18:30 Blood leukocytes automated count (number/volume) 7.8 10*3/uL 4.3-11.0 Blood erythrocytes automated count (number/volume) 4.78 10*6/uL 4.35-5.85 Venous blood hemoglobin measurement (mass/volume) 13.4 g/dL 11.5-16.0 Blood hematocrit (volume fraction) 41 % 35-52 Automated erythrocyte mean corpuscular volume 86 [foz_us] 80-99 Automated erythrocyte mean corpuscular hemoglobin (mass per erythrocyte) 28 pg 25-34 Automated erythrocyte mean corpuscular hemoglobin concentration measurement (mass/volume) 32 g/dL 32-36 Automated erythrocyte distribution width ratio 15.7 % 10.0- 14.5 Automated blood platelet count (count/volume) 356 10*3/uL 130-400 Automated blood platelet mean volume measurement 8.8 [foz_us] 7.4-10.4 Automated blood neutrophils/100 leukocytes 55 % 42-75 Automated blood lymphocytes/100 leukocytes 38 % 12-44 Blood monocytes/100 leukocytes 7 % 0-12 Automated blood eosinophils/100 leukocytes 1 % 0-10 Automated blood basophils/100 leukocytes 0 % 0-10 Blood neutrophils automated count (number/volume) 4.3 10*3 1.8-7.8 Blood lymphocytes automated count (number/volume) 2.9 10*3 1.0-4.0 Blood monocytes automated count (number/volume) 0.5 10*3 0.0- 1.0 Automated eosinophil count 0.0 10*3/uL 0.0-0.3 Automated blood basophil count (count/volume) 0.0 10*3/uL 0.0-0.1 PT panel in platelet poor plasma by coagulation assay - 05/05/19 18:30 Prothrombin time (PT) in platelet poor plasma by coagulation assay 13.0 s 12.2-14.7 INR in platelet poor plasma or blood by coagulation assay 0.9 0.8-1.4 Activated partial thromboplastin time (aPTT) in platelet poor plasma bycoagulation assay - 05/05/19 18:30 Activated partial thromboplastin time (aPTT) in platelet poor plasma bycoagulation assay 30 s 24-35 Comprehensive metabolic panel - 05/05/19 18:30 Serum or plasma sodium measurement (moles/volume) 142 mmol/L 135-145 Serum or plasma potassium measurement (moles/volume) 4.5 mmol/L 3.6-5.0 Serum or plasma chloride measurement (moles/volume) 107 mmol/L 98-107 Carbon dioxide 24 mmol/L 21-32 Serum or plasma anion gap determination (moles/volume) 11 mmol/L 5-14 Serum or plasma urea nitrogen measurement (mass/volume) 17 mg/dL 7-18 Serum or plasma creatinine measurement (mass/volume) 1.75 mg/dL 0.60-1.30 Serum or plasma urea nitrogen/creatinine mass ratio 10 NRG Serum or plasma creatinine measurement with calculation of estimated glomerular filtration rate 41 NRG Serum or plasma glucose measurement (mass/volume) 103 mg/dL 70-105 Serum or plasma calcium measurement (mass/volume) 9.3 mg/dL 8.5-10.1 Serum or plasma total bilirubin measurement (mass/volume) 0.3 mg/dL 0.1-1.0 Serum or plasma alkaline phosphatase measurement (enzymatic activity/volume) 73 U/L 40-136 Serum or plasma aspartate aminotransferase measurement (enzymatic activity/volume) 21 U/L 5-34 Serum or plasma alanine aminotransferase measurement (enzymatic activity/volume) 18 U/L 0-55 Serum or plasma protein measurement (mass/volume) 6.7 g/dL 6.4-8.2 Serum or plasma albumin measurement (mass/volume) 3.7 g/dL 3.2-4.5 CALCIUM CORRECTED 9.5 mg/dL 8.5-10.1 Magnesium - 05/05/19 18:30 Magnesium 2.1 mg/dL 1.8-2.4 Serum or plasma troponin i.cardiac measurement (mass/volume) - 05/05/19 18:30 Serum or plasma troponin i.cardiac measurement (mass/volume) < ng/mL <0.028 Myoglobin, serum - 05/05/19 18:30 Myoglobin, serum 113.8 ng/mL 10.0-92.0 Serum or plasma amylase measurement (enzymatic activity/volume) - 05/05/19 18:30 Serum or plasma amylase measurement (enzymatic activity/volume) 104 U/L 25-125 Lipase - 05/05/19 18:30 Lipase 22 U/L 8-78 Serum or plasma lithium measurement (moles/volume) - 05/05/19 18:30 BNP level 202.6 pg/mL <100.0 Complete blood count (CBC) with automated white blood cell (WBC) differential - 05/09/19 20:40 Blood leukocytes automated count (number/volume) 8.4 10*3/uL 4.3-11.0 Blood erythrocytes automated count (number/volume) 4.82 10*6/uL 4.35-5.85 Venous blood hemoglobin measurement (mass/volume) 13.7 g/dL 11.5-16.0 Blood hematocrit (volume fraction) 42 % 35-52 Automated erythrocyte mean corpuscular volume 88 [foz_us] 80-99 Automated erythrocyte mean corpuscular hemoglobin (mass per erythrocyte) 28 pg 25-34 Automated erythrocyte mean corpuscular hemoglobin concentration measurement (mass/volume) 32 g/dL 32-36 Automated erythrocyte distribution width ratio 15.5 % 10.0- 14.5 Automated blood platelet count (count/volume) 383 10*3/uL 130-400 Automated blood platelet mean volume measurement 8.8 [foz_us] 7.4-10.4 Automated blood neutrophils/100 leukocytes 50 % 42-75 Automated blood lymphocytes/100 leukocytes 39 % 12-44 Blood monocytes/100 leukocytes 8 % 0-12 Automated blood eosinophils/100 leukocytes 2 % 0-10 Automated blood basophils/100 leukocytes 1 % 0-10 Blood neutrophils automated count (number/volume) 4.2 10*3 1.8-7.8 Blood lymphocytes automated count (number/volume) 3.3 10*3 1.0-4.0 Blood monocytes automated count (number/volume) 0.7 10*3 0.0- 1.0 Automated eosinophil count 0.2 10*3/uL 0.0-0.3 Automated blood basophil count (count/volume) 0.1 10*3/uL 0.0-0.1 Comprehensive metabolic panel - 05/09/19 20:40 Serum or plasma sodium measurement (moles/volume) 140 mmol/L 135-145 Serum or plasma potassium measurement (moles/volume) 3.9 mmol/L 3.6-5.0 Serum or plasma chloride measurement (moles/volume) 102 mmol/L 98-107 Carbon dioxide 25 mmol/L 21-32 Serum or plasma anion gap determination (moles/volume) 13 mmol/L 5-14 Serum or plasma urea nitrogen measurement (mass/volume) 13 mg/dL 7-18 Serum or plasma creatinine measurement (mass/volume) 1.65 mg/dL 0.60-1.30 Serum or plasma urea nitrogen/creatinine mass ratio 8 NRG Serum or plasma creatinine measurement with calculation of estimated glomerular filtration rate 44 NRG Serum or plasma glucose measurement (mass/volume) 99 mg/dL 70-105 Serum or plasma calcium measurement (mass/volume) 9.5 mg/dL 8.5-10.1 Serum or plasma total bilirubin measurement (mass/volume) 0.3 mg/dL 0.1-1.0 Serum or plasma alkaline phosphatase measurement (enzymatic activity/volume) 79 U/L 40-136 Serum or plasma aspartate aminotransferase measurement (enzymatic activity/volume) 13 U/L 5-34 Serum or plasma alanine aminotransferase measurement (enzymatic activity/volume) 12 U/L 0-55 Serum or plasma protein measurement (mass/volume) 7.2 g/dL 6.4-8.2 Serum or plasma albumin measurement (mass/volume) 4.0 g/dL 3.2-4.5 CALCIUM CORRECTED 9.5 mg/dL 8.5-10.1 Magnesium - 05/09/19 20:40 Magnesium 1.9 mg/dL 1.8-2.4 TROPONIN T - 05/09/19 20:40 TROPONIN T 6 % <=10 PROBNP FS - 05/09/19 20:40 PROBNP FS 745.1 pg/mL <75.0 Encounters ACCT No. Visit Date/Time Discharge Status Pt. Type Provider Facility Loc./Unit Complaint [id number] 04/26/2019 12:20:00 04/26/2019 23:59:59 [facility] Outpatient CHUNG BALDERAS [facility] [id number] 04/20/2019 10:00:00 Document Registration [id number] 09/20/2018 09:20:00 Document Registration [id number] 08/10/2018 11:40:00 Document Registration [id number] 05/05/2019 18:06:00 05/05/2019 20:26:00 DIS Emergency NIK CELIS [facility] ER PACEMAKER CONCERNS [id number] 04/20/2019 22:38:00 04/20/2019 23:29:00 DIS Emergency VINITA RICHARD DO [facility] ER FS SWOLLEN ARMS, HANDS AND FEET [id number] 04/19/2019 15:50:00 04/19/2019 18:33:00 DIS Emergency LISA MARCELINO APRN [facility] ER HEADACHE [id number] 04/12/2019 20:29:00 04/12/2019 23:19:00 DIS Emergency EDISON CHAMBERLAIN MD [facility] ER FS VOMITING, BACK PAIN, DIZZY [id number] 04/09/2019 00:33:00 04/09/2019 01:40:00 DIS Emergency DELIO ARIZA DO [facility] ER FS LEFT PAIN [id number] 01/06/2019 01:18:00 01/06/2019 03:15:00 DIS Emergency PREM MAZARIEGOS, FEDE Burgos [facility] ER CP,FALL 2 DAYS AGO [id number] 01/01/2019 15:50:00 01/01/2019 19:25:00 DIS Emergency PEDRO CELISIS [facility] ER SOB/COUGHING UP BLOOD [id number] 11/01/2018 14:51:00 11/01/2018 19:37:00 DIS Emergency MARIBEL MAZARIEGOS, RALPH Mcelroy [facility] ER SOB;HEAD PAIN;HIGH BP [id number] 10/23/2018 12:07:00 10/23/2018 23:59:59 CLS Outpatient FELECIA FORTUNE MD [facility] CARD CARDIOMYOPATHY,HTN,MR,SINUS BRADYCARDIA [id number] 08/05/2018 17:39:00 08/05/2018 19:33:00 DIS Emergency NIK CELIS [facility] ER HEAD HURTING,RT ANKLE SWOLLEN [id number] 01/12/2018 10:17:00 01/12/2018 23:59:59 CLS Outpatient BLANCO BERMAN [facility] CARD G93.1 ANOXIC ENCEPHALOPATHY [id number] 10/06/2017 12:00:00 10/06/2017 23:59:59 CLS Preadmit FELECIA FORTUNE MD [facility] CARD CARDIOMYOPATHY I42.9 [id number] 03/03/2016 12:12:00 03/03/2016 23:59:59 CLS Outpatient BLANCO BERMAN [facility] CARD ENCOPELPATH [id number] 02/15/2016 15:59:00 02/15/2016 18:46:00 DIS Emergency OSMAN GONSALES MD [facility] ER DEFIBRILLATOR ISSUES [id number] 12/01/2015 18:08:00 12/01/2015 21:10:00 DIS Emergency RODRIGO HILL DO [facility] ER IRREGULAR HEART RATE [id number] 08/23/2015 20:00:00 08/24/2015 01:08:00 DIS Emergency MARIBEL MAZARIEGOS, RALPH Mcelroy [facility] ER DEFIBRILLATOR BEEPING [id number] 08/08/2015 22:55:00 08/09/2015 00:13:00 DIS Emergency KRISTA MAZARIEGOS, ROESTES Guthrie [facility] ER L ARM/RIB CAGE PAIN [id number] 07/27/2015 18:45:00 07/29/2015 12:40:00 DIS Inpatient APRIL DOMINIQUE DO [facility] CSD L PNEUMOTHORAX L CHEST WALL PX ELEV LFT'S [id number] 07/23/2015 06:38:00 07/24/2015 11:45:00 DIS Outpatient FELECIA FORTUNE MD [facility] CATH CGF,CARDIOMYOPATHY [id number] 07/15/2015 11:28:00 07/15/2015 23:59:59 CLS Outpatient FELECIA FORTUNE MD [facility] LAB CHF,HTN,TR [id number] 07/11/2015 10:45:00 07/11/2015 23:59:59 CLS Outpatient BLANCO BERMAN [facility] CARD CHF,CARDINUREOPATHY HTN [id number] 03/26/2015 13:23:00 03/31/2015 18:00:00 DIS Inpatient APRIL DOMINIQUE DO [facility] CSD UNK [id number] 03/21/2015 12:45:00 03/26/2015 12:46:00 DIS Inpatient KAUR MAZARIEGOS, LISSET Mcghee [facility] IRF DEBILITY,ENCEPHALOPATHY [id number] 05/09/2019 19:35:00 ACT Emergency EHCTOR LADD DO [facility] ER FS LT ARM PAIN AND NUMBNESS
[2019-05-09 23:38] LABS: AMPHETAMINE SCREEN, URINE NEGATIVE (NEGATIVE); BARBITURATE SCREEN URINE NEGATIVE (NEGATIVE); BENZODIAZEPINES SCREEN URINE NEGATIVE (NEGATIVE); CANNABINOID SCREEN, URINE NEGATIVE (NEGATIVE); COCAINE SCREEN URINE NEGATIVE (NEGATIVE); METHADONE STAT NEGATIVE (NEGATIVE); METHAMPHETAMINE SCREEN URINE S NEGATIVE (NEGATIVE); OPIATE SCREEN URINE POSITIVE (NEGATIVE); OXYCODONE STAT NEGATIVE (NEGATIVE); PROPOXYPHENE STAT NEGATIVE (NEGATIVE); TRICYCLIC ANTIDEPRESSANTS SCRE NEGATIVE (NEGATIVE)
--- NOTE | 2019-05-10 00:25 | NUR ---
SAL PRIEST admitted to room 429-1, with an admitting diagnosis of chest pain, elevated BNP, h/o cardiac arrest, h/o AICD, on 05/09/19 from [facility] via EMS, accompanied by EMS. SAL PRIEST introduced to surroundings, call light, bed controls, phone, TV, temperature control, lights, meal times, smoking policy, visitor policy, side rail policy, bathrooms and showers. Patient Rights given to patient in the handbook. SAL PRIEST verbalizes understanding that [facility] is not responsible for the loss or damage to any personal effects or valuables that are kept in the patients possession during their hospitalization. SAL PRIEST verbalizes understanding of Interdisciplinary Patient Education. Patient and/or family were informed about the Rapid Response Team and its purpose.
--- NOTE | 2019-05-10 02:00 | NUR ---
0025- PT ARRIVED TO FLOOR VIA EMS. PT COMPLAINING OF INTERMITTENT BACK PAIN ONLY AT THIS TIME. ORIENTED PT TO ROOM AND GOT PT SETTLED IN. 0028- THIS RN WENT TO GET PT A SPRITE. CAME BACK INTO PTS ROOM AND PT WAS ADJUSTING HERSELF IN BED TO BE ABLE TO TAKE A DRINK AND PT STARTED SCREAMING VERY LOUDLY STATING, "HELP ME ITS SHOCKING ME", THIS RN AND PCT FÉLIX IN ROOM WHEN EPISODE HAPPENED. AT THIS TIME WE ARE TRYING TO CALM THE PT DOWN BC SHE IS HYSTERICAL YELLING "HELP ME, HELP ME". 0030- PT WAS ABLE TO CALM DOWN A LITTLE WHEN PT STARTED SCREAMING VERY LOUD AGAIN SAYING "HELP ME ITS SHOCKING ME, ITS SHOCKING ME". STRIPPING MACHINE OPERATOR ENTERED ROOM TO HELP CALM PT. 0032- SPOKE WITH DR. FORTUNE AND INFORMED HIM OF PTS CONDITION AND FINDINGS. TELEPHONE ORDERS RECEIVED TO PLACE MAGNET ON PTS AICD AND TO CALL [employer] TO SHUT OFF PTS DEFIBRILLATOR BC PT HAS FX IN ONE OF THE LEADS. 0045-STRIPPING MACHINE OPERATOR TO SPEAK WITH [employer] STAFF AND STATES PT IS SUPPOSED TO BE AT [place] AT 0800 05/10/19 TO HAVE LEAD REPLACED. 0106-SPOKE WITH DR. FORTUNE AND INFORMED HIM OF NEW FINDINGS. TELEPHONE ORDERS TO TRY AND TRANSFER PT TO [place] IF BED AVAILABLE SO PT CAN MAKE IT TO HER PROCEDURE IN AM. 010-SPOKE WITH ADMITTING DR. BARRERA AND INFORMED HER OF HAPPENING TO THIS POINT OF PTS ARRIVAL. SHE AGREED TO TRANSFER PT TO [facility]. 0114- DR. BARRERA CALLED AND INFORMED ME THAT [facility] ON [facility]. TELEPHONE ORDERS NOW RECEIVED TO HAVE [employer] TO COME AND TURN OFF PTS DEFIBRILLATOR TONIGHT, THEN WE WILL DC PT AT 0600 THIS AM SO PTS MOTHER CAN TAKE PT TO OUTPATIENT PROCEDURE. 0119-SPOKE WITH DR. FORTUNE AND INFORMED HIM OF DR. BARRERA'S PLAN. DR. FORTUNE OKAY WITH DC IN THE AM FOR PT TO MAKE IT TO OUTPATIENT PROCEDURE. 0125-STRIPPING MACHINE OPERATOR SPOKE WITH PT AND FAMILY AND EVERYONE AGREES WITH THIS DECISION. WILL CONTINUE TO MONITOR PT.
--- NOTE | 2019-05-10 02:15 | NUR ---
[employer] STAFF HERE AND TURNED OF PTS DEFIBRILLATOR AT THIS TIME.
[2019-05-10 04:00] VITALS: BP 141/89
--- NOTE | 2019-05-10 06:21 | Short Stay Summary ---
History of Present Illness History of Present Illness Reason for visit/HPI 28 yo F that presented to ER after her defibrillator discharged. Patient is an established patient with Dr Patterson. Patient had device placed after cardiac arrest several years ago. This is the first time that the device has discharged. Patient is having some shortness of breath and some chest pain since discharge. She has been set up with appts in [place] and to have device removed and rep laced. Patient has appt this AM in [place]. She has a known wire fracture. Overnight device discharged 2 more times. [employer] was called in to deactivate device until patient can have repairs done. Date of Admission May 09, 2019 at 22:47 Date of Discharge 05/10/2019 Time Seen by Provider: 05:55 Attending Physician Alex Barrera MD Admitting Physician [facility] Consult Allergies and Home Medications Allergies Coded Allergies: JIA Inhibitors (Verified Allergy, Severe, 04/12/19) ARB-Angiotensin Receptor Antagonist (Verified Allergy, Severe, 07/24/15) baclofen (Unverified Allergy, Unknown, 03/24/15) ON H&P phenazopyridine (Unverified Allergy, Unknown, 03/24/15) ON H&P Home Medications Albuterol Sulfate 8 Gm Hfa.aer.ad, 2 PUFF INH Q6H PRN for SHORTNESS OF BREATH, (Reported) Amlodipine Besylate 10 Mg Tablet, 10 MG PO DAILY, (Reported) Apixaban 5 Mg Tablet, 5 MG PO BID Prescribed by: RALPH DELCID on 11/01/18 1856 Metoprolol Tartrate 50 Mg Tablet, 50 MG PO BID Prescribed by: FELECIA PATTERSON on 07/24/15 0841 Venlafaxine HCl 150 Mg Tab.er.24, 150 MG PO DAILY, (Reported) Patient Home Medication List Home Medication List Reviewed: Yes Past Owkxfyf-Cuiuhm-Zxjtpb Hx Patient Social History Alcohol Use: Denies Use Recreational Drug Use: No Smoking Status: Never a Smoker 2nd Hand Smoke Exposure: No Recent Foreign Travel: No Contact w/other who traveled: No Recent Hopitalizations: No Recent Infectious Disease Expo: No Immunizations Up To Date Tetanus Booster (TDap): Unknown Pediatric: Yes Date of Pneumonia Vaccine: Sep 09, 2018 Date of Influenza Vaccine: Aug 19, 2015 Seasonal Allergies Seasonal Allergies: No Surgeries Yes (DEFIBRILLATOR PLACED 07/23/15. PEG TUBE--REMOVED, uterine ablation) Abdominal, Section, Defibrillator, Gallbladder, Tracheostomy Respiratory Yes (ARDS-CODED; PNEUMOTHORAX 06/2015) Currently Using CPAP: No Currently Using BIPAP: No Cardiovascular Yes (PULMONARY EDEMA/CARDIAC CAUSE-R/T ATRIAL THROMBUS; CARDIAC ARREST;V-FIB ) Cardiomyopathy, Endocarditis, Valvular Heart Disease Neurological Yes (encephalopathy-hypoxia, anoxic brain injury) Reproductive System Hx Reproductive Disorders: No Sexually Transmitted Disease: No Genitourinary Yes Renal Failure Gastrointestinal Yes Gastroesophageal Reflux Musculoskeletal Yes (GAIT DISTURBANCE) Endocrine History of Endocrine Disorders: No HEENT History of HEENT Disorders: No Loss of Vision: Denies Hearing Impairment: Denies Cancer No Psychosocial History of Psychiatric Problem: Yes (per med record) Behavioral Health Disorders: Anxiety, Bipolar, Depression Integumentary History of Skin or Integumenta: No Blood Transfusions History of Blood Disorders: Yes (ANEMIA) Family Medical History Significant Family History: No Pertinent Family Hx Family Hx: Patient reports no known family medical history. Review of Systems Constitutional: no symptoms reported; No chills, No fever, No weakness EENTM: no symptoms reported; No mouth pain, No nose congestion, No throat pain Respiratory: No cough; dyspnea on exertion; No orthopnea; short of breath Cardiovascular: chest pain; No edema, No palpitations Gastrointestinal: no symptoms reported; No abdominal pain, No constipation, No diarrhea, No nausea, No vomiting Genitourinary: no symptoms reported; No dysuria, No frequency, No hematuria : No Musculoskeletal: muscle pain Skin: no symptoms reported; No lesions, No rash Psychiatric/Neurological: Anxiety Physical Exam Vital Signs Vital Signs - First Documented 05/09/19 20:34 Temp 98.3 Pulse 80 Resp 20 B/P (MAP) 157/109 (125) Pulse Ox 98 O2 Delivery Room Air Capillary Refill : Less Than 3 Seconds Height, Weight, BMI Height: 5'3.00" Weight: 248lbs. 8.0oz. 112.819842wt; 44.2 BMI Method:Stated General Appearance: No Apparent Distress, WD/WN HEENT: PERRL/EOMI, Pharynx Normal Neck: Full Range of Motion, Normal Inspection, Non Tender, Supple Respiratory: Chest Non Tender, Lungs Clear, Normal Breath Sounds, No Accessory Muscle Use, No Respiratory Distress Cardiovascular: Regular Rate, Rhythm, No Edema, No Murmur, Normal Peripheral Pulses Gastrointestinal: Normal Bowel Sounds, Soft Back: No CVA Tenderness, No Vertebral Tenderness Extremity: Normal Inspection, Normal Range of Motion, Non Tender, No Calf Tenderness, No Pedal Edema Neurologic/Psychiatric: Alert, Oriented x3, No Motor/Sensory Deficits, Normal Mood/Affect, electrical appliance mechanic II-XII Norm as Tested Skin: Normal Color, Warm/Dry Lymphatic: No Adenopathy Clinical Quality Measures AMI/AHF: ASA po Prior to arrival: No DVT/VTE Risk/Contraindication: Risk Factor Score Per Nursin RFS Level Per Nursing on Admit: 4+=Very High Short Stay Diagnosis Discharge Diagnosis-Short Stay Admission Diagnosis: Defibillator discharge H/o cardiac arrest Chest pain Final Discharge Diagnosis: See Above Conclusion Labs Laboratory Tests 05/09/19 20:40: White Blood Count 8.4, Red Blood Count 4.82, Hemoglobin 13.7, Hematocrit 42, Mean Corpuscular Volume 88, Mean Corpuscular Hemoglobin 28, Mean Corpuscular Hemoglobin Concent 32, Red Cell Distribution Width 15.5H, Platelet Count 383, Mean Platelet Volume 8.8, Neutrophils (%) (Auto) 50, Lymphocytes (%) (Auto) 39, Monocytes (%) (Auto) 8, Eosinophils (%) (Auto) 2, Basophils (%) (Auto) 1, Neutrophils # (Auto) 4.2, Lymphocytes # (Auto) 3.3, Monocytes # (Auto) 0.7, Eosinophils # (Auto) 0.2, Basophils # (Auto) 0.1, Sodium Level 140, Potassium Level 3.9, Chloride Level 102, Carbon Dioxide Level 25, Anion Gap 13, Blood Urea Nitrogen 13, Creatinine 1.65H, Estimat Glomerular Filtration Rate 44, BUN/Creatinine Ratio 8, Glucose Level 99, Calcium Level 9.5, Corrected Calcium 9.5, Magnesium Level 1.9, Total Bilirubin 0.3, Aspartate Amino Transf (AST/SGOT) 13, Alanine Aminotransferase (ALT/SGPT) 12, Alkaline Phosphatase 79, Troponin T 6, Pro-B-Type Natriuretic Peptide 745.1H, Total Protein 7.2, Albumin 4.0 05/09/19 22:50: Troponin T < 6 05/09/19 23:23: Urine Opiates Screen POSITIVEH, Urine Oxycodone Screen NEGATIVE, Urine Methadone Screen NEGATIVE, Urine Propoxyphene Screen NEGATIVE, Urine Barbiturates Screen NEGATIVE, Ur Tricyclic Antidepressants Screen NEGATIVE, Urine Phencyclidine Screen NEGATIVE, Urine Amphetamines Screen NEGATIVE, Urine Methamphetamines Screen NEGATIVE, Urine Benzodiazepines Screen NEGATIVE, Urine Cocaine Screen NE GATIVE, Urine Cannabinoids Screen NEGATIVE Conclusion/Plan 28 yo F with h/o Cardiac arrest several years ago s/p defibrillator placement Plan Defibrillator Discharge due to fractured wire: Patient has appt at [facility] today to have wire replaced. [employer] turned off device overnight due to 2 additional discharges on arrival, Dr Patterson notified and recommended transfer. [place] is on diversion. 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
--- NOTE | 2019-05-10 06:24 | Discharge Instructions ---
Discharge [facility] Discharge Medications Continued Medications: Albuterol Sulfate (Rx-Proair) 8 Gm Hfa.aer.ad 2 PUFF INH Q6H PRN for SHORTNESS OF BREATH Amlodipine Besylate (Amlodipine Besylate) 10 Mg Tablet 10 MG PO DAILY, TAB Apixaban (Eliquis) 5 Mg Tablet 5 MG PO BID, #60 TAB Cariprazine Hydrochloride (Vraylar) 1.5 Mg Capsule Cyclobenzaprine HCl (Cyclobenzaprine HCl) 10 Mg Tablet Famotidine (Famotidine) 20 Mg Tablet Metoprolol Tartrate (Metoprolol Tartrate) 50 Mg Tablet 50 MG PO BID, #60 TAB 4 Refills Ropinirole HCl (Ropinirole HCl) 0.5 Mg Tablet Sacubitril/Valsartan (Entresto 24 mg-26 mg Tablet) 1 Each Tablet Venlafaxine HCl (Venlafaxine HCl ER) 150 Mg Tab.er.24 150 MG PO DAILY, TAB Discontinued Medications: Azithromycin (Zithromax) 250 Mg Tablet 250 MG PO UD, #6 TAB TAKE 2 TABLETS TODAY, THEN TAKE 1 TABLET DAILY FOR 4 MORE DAYS Meloxicam (Mobic) 7.5 Mg Tablet 7.5 MG PO Q12H PRN for elbow pain, #30 TAB 0 Refills Prednisone (Prednisone) 10 Mg Tab.ds.pk 10 MG PO UD, #1 PKG Warfarin Sodium (Warfarin Sodium) 4 Mg Tablet 8 MG PO HS TAKES 2 (4MG) TABLETS Patient Instructions Goal/Follow Up Appt: Will have f.u with Dr Patterson Patient Instructions: - Make sure to get to your appt to get the wire repaired Activity & Diet Discharge Diet: Cardiac Diet Activity as Tolerated: Yes ALEX BARRERA MD May 10, 2019 06:24
[2019-05-10 06:35] VITALS: BP 141/89
--- NOTE | 2019-05-10 06:40 | Diagnostic Imaging Report ---
PROCEDURE: CT angiography of the chest with contrast. TECHNIQUE: Multiple contiguous axial images were obtained through the chest after uneventful bolus administration of intravenous contrast. 2D reconstructed CTA MIP acquisitions were also performed. Auto Exposure Controls were utilized during the CT exam to meet ALARA standards for radiation dose reduction. INDICATION: Chest pain radiating to the back. FINDINGS: Aorta appears normal with no evidence of aneurysm or dissection. There are no pulmonary emboli. Lungs are clear. There are no effusions or pneumothoraces. There is a dual-chamber pacemaker. There is no hilar or mediastinal lymphadenopathy. IMPRESSION: Negative CTA chest. I agree with preliminary interpretation. Dictated by: Dictated on workstation # [id number]
== END 2019-05-10 06:35 | disposition home or self-care (01) ==
LOC: EDUNIT# 19:34 → ER FS 19:35 → 4TH 22:47
PROVIDERS: ADMIT Family Medicine; ATTEND Family Medicine
DX: T82.118A Breakdown (mechanical) of other cardiac electronic device, initial encounter (principal); Z86.74 Personal history of sudden cardiac arrest; Z87.820 Personal history of traumatic brain injury; Z95.810 Presence of automatic (implantable) cardiac defibrillator; Z79.01 Long term (current) use of anticoagulants; Z79.899 Other long term (current) drug therapy; N19 Unspecified kidney failure; F41.9 Anxiety disorder, unspecified; F31.9 Bipolar disorder, unspecified; I42.9 Cardiomyopathy, unspecified; Z86.718 Personal history of other venous thrombosis and embolism
CPT/HCPCS: 36415; 71045; 71275; 80053; 80306; 82553; 83735; 83880; 84484; 85025; 93005; 93041; 96374; G0378

== ENCOUNTER 2019-05-11 13:26 | Emergency (ER) | payer MEDICAID ==
[~2019-05-11] VITALS: Ht 160 cm; Wt 106.1 kg
--- OUTSIDE RECORDS SUMMARY | 2019-05-11 13:32 | XMS REPORT | Encounter Summary ---
Author Author [facility] Organization [facility] Address Unknown Phone Unavailable Care Team Providers Care Ict Business Analyst Name Role Phone Austin Tobias MD Unavailable Rhona Vazquez MD Unavailable Angie Barros MD Unavailable Marilyn Chapa MD PCP Unavailable Reason for Visit * Reason Comments Other Encounter Details Care Team Description Date Type Department Angie Barros MD [address] [place] [address] Other 01/09/2016 Telephone [facility] Phys[facility] - Internal Medicine [address] [facility] [address] OFF[address] [place] [address] Social History Date Tobacco Use Types Packs/Day Years Used Never Smoker Sex Assigned at Date Recorded Not on file Industry Job Start Date Occupation Not on file Not on file Not on file Travel End Travel History Travel Start No recent travel history available. documented as of this encounter Miscellaneous Notes * Telephone Encounter - Yee Miranda LPN - 01/09/2016 4:44 PM ANIMAL HOSPITAL CLERK Notified pts mom of lab results, pt to continue current treatment plan, pts mom stated will contact pts marketing support coordinator next week regarding intermittent bradycardi a, expressed understanding with no further questions. [facility] HOSPITAL CLERK * Telephone Encounter - Yee Miranda LPN - 01/09/2016 9:21 AM ANIMAL HOSPITAL CLERK Per Dr. Floyd Daniels attempted to contact pt regarding lab results, left a VM for pts mom to return call. AL HOSPITAL CLERK * Telephone Encounter - Yee Miranda LPN - 01/09/2016 9:21 AM ANIMAL HOSPITAL CLERK ----- Message from Angie Daniels MD sent at 01/08/2016 2:18 PM ANIMAL HOSPITAL CLERK ----- I attempted to reach patient or her mother to review results obtained showing sl ight improvement of creatinine to 1.7 mg/dl, with stable electrolytes (Na 140,K 4.3,CO2 23,Ca 9.2) and with negative serology (anti-DS DNA, anti POULTRY PROCESSING SUPERVISOR, anti SSA a nd anti SSB, anti-kaba, negative anticardiolopin and lupus anticoagulant). Of korin espinosa I had reviewed ultrasound done previously showing small kidneys bilaterally; no doppler evaluation was included in the report. At this time will continue current treatment and would like to confirm that alvin ent's mother spoke to her marketing support coordinator about the intermittent bradycardia to ens ure he did not recommend any changes to treatment. I left her a message to contact us back. AL HOSPITAL CLERK documented in this encounter Plan of Treatment Not on filedocumented as of this encounter Visit Diagnoses Not on filedocumented in this encounter
--- OUTSIDE RECORDS SUMMARY | 2019-05-11 13:32 | XMS REPORT | Encounter Summary ---
Author Author [facility] Organization [facility] Address Unknown Phone Unavailable Care Team Providers Care Health And Wellness Coach Name Role Phone Austin Tobias MD Unavailable Rhona Vazquez MD Unavailable Angie Barros MD Unavailable Marilyn Chapa MD PCP Unavailable Encounter Details Care Team Description Date Type Department Angie Barros MD [address] [place] [address] Vitamin D deficiency; CKD (chronic kidney disease), unspecified stage 03/19/2016 Orders Only [facility] Physicians - Internal Medicine [address] [facility] [address] [place] [address] Social History Date Tobacco Use Types Packs/Day Years Used Never Smoker Sex Assigned at Date Recorded Not on file Industry Job Start Date Occupation Not on file Not on file Not on file Travel End Travel History Travel Start No recent travel history available. documented as of this encounter Progress Notes * Angie Barros - 03/23/2016 10:32 AM CDT Quick Note: Vitamin D much improved; will review with patient with follow-up labs ordered i n 10 days. documented in this encounter Plan of Treatment Not on filedocumented as of this encounter Procedures Comments Procedure Name Priority Date/Time Associated Diagnosis PARATHYROID HORMONE Routine 03/18/2016 CKD (chronic kidney disease), unspecified stage 25-OH VITAMIN D (D2 + D3) Routine 03/18/2016 Vitamin D deficiency documented in this encounter Results * PARATHYROID HORMONE (03/18/2016) PTH 62.3 IN CLINIC Specimen Blood - Blood Narrative Performed At Performing Organization Address City/State/Zipcode Phone Number IN CLINIC * 25-OH VITAMIN D (D2 + D3) (03/18/2016) Vitamin 27 low OTHER OUTSIDE D(25-OH)Total LAB Specimen Blood - Blood Narrative Performed At Performing Organization Address City/State/Zipcode Phone Number OTHER OUTSIDE LAB documented in this encounter Visit Diagnoses Diagnosis Vitamin D deficiency Unspecified vitamin D deficiency CKD (chronic kidney disease), unspecified stage documented in this encounter
--- OUTSIDE RECORDS SUMMARY | 2019-05-11 13:32 | XMS REPORT | Encounter Summary ---
Author Author [facility] Organization [facility] Address Unknown Phone Unavailable Care Team Providers Care Pot Operator Name Role Phone Austin Tobias MD Unavailable Rhona Vazquez MD Unavailable Angie Barros MD Unavailable Marilyn Chapa MD PCP Unavailable Reason for Visit * Reason Comments Results Encounter Details Care Team Description Date Type Department Angie Barros MD [address] [place] [address] Results 03/19/2016 Telephone [facility] Physicians - Internal Medicine [address] [facility] [address] [place] [address] Social History Date Tobacco Use Types Packs/Day Years Used Never Smoker Sex Assigned at Date Recorded Not on file Industry Job Start Date Occupation Not on file Not on file Not on file Travel End Travel History Travel Start No recent travel history available. documented as of this encounter Miscellaneous Notes * Telephone Encounter - Yee Miranda LPN - 03/19/2016 11:54 AM CDT Pts mom returned call, informed pts mom of lab results, t to start spironolacton e 25 mg daily, have BP check and repeat labs in 2 weeks with PCP, pts mom expres sed understanding with no questions. * Telephone Encounter - Yee Miranda LPN - 03/19/2016 11:[address] Floyd Daniels attempted to contact pt and pts mom regarding lab results, left a VM for pt to return call. * Telephone Encounter - Yee Miranda LPN - 03/19/2016 11:44 AM CDT ----- Message from Angie Daniels MD sent at 03/19/2016 10:59 AM CDT ----- Yee Can you please inform patient and her mother that labs look stable with improved creatinine and stable K level. I would like her to start spironolactone 25 mg daily (will place order) and then return to her PCP office for BP check and labs in 2 weeks (I already provided h er orders for labs in 2 weeks to be done locally). Still PTH and VIt D not back yet. documented in this encounter Plan of Treatment Not on filedocumented as of this encounter Visit Diagnoses Not on filedocumented in this encounter
--- OUTSIDE RECORDS SUMMARY | 2019-05-11 13:32 | XMS REPORT | Clinical Summary ---
Author Author [facility] Organization [facility] Address Unknown Phone Unavailable Care Team Providers Care Direct Support Professional Name Role Phone Austin Tobias MD Unavailable Rhona Vazquez MD Unavailable Angie Barros MD Unavailable Marilyn Chapa MD PCP Unavailable Source Comments Some departments are not documenting in the electronic medical record. If you d o not see the information that you expected, contact Release of Information in [facility] Information Management department at [phone] for further assistan ce in locating additional records.[facility] Allergies Comments Active Allergy Reactions Severity [...] travel history available. Last Filed Vital Signs Reading Time Taken Comments Vital Sign 108/86 03/16/2016 2:22 PM CDT Blood Pressure 74 03/16/2016 2:22 PM CDT Pulse 36.8 C (98.2 F) 03/16/2016 2:12 PM CDT Temperature - - Respiratory Rate - - Oxygen Saturation - - Inhaled Oxygen Concentration 81.6 kg (180 lb) 03/16/2016 2:12 PM CDT Weight 160 cm (5' 3") 03/16/2016 2:12 PM CDT Height 31.89 03/16/2016 2:12 PM CDT Body Mass Index Plan of Treatment Health Maintenance Due Date Last Done Comments PHYSICAL (COMPREHENSIVE) 1995 EXAM DTAP/TDAP VACCINES ( - 2006 Tdap) CERVICAL CANCER SCREENING 2018 INFLUENZA VACCINE 08/28/2019 HIV SCREENING Completed 12/09/2015 Results Not on filefrom Last 3 Months Insurance Type Payer Benefit Subscriber ID Effective Phone Address Plan / Dates Group Medicaid [facility] MEDICAID [facility] xxxxxxxxxxx [id number] [employer]UN[employer] [place] PLAN [place] [address] (Home) [place] [address] Advance Directives Patient Gi Asst Explanation Type Date Recorded Advance 12/09/2015 2:22 PM Directive/DPOA
--- OUTSIDE RECORDS SUMMARY | 2019-05-11 13:32 | XMS REPORT | Encounter Summary ---
Author Author [facility] Organization [facility] Address Unknown Phone Unavailable Care Team Providers Care Compensation/Benefits Specialist Name Role Phone Austin Tobias MD Unavailable Rhona Vazquez MD Unavailable Angie Barros MD Unavailable Marilyn Chapa MD PCP Unavailable Reason for Visit * Reason Comments Chronic Kidney Disease Encounter Details Care Team Description Date Type Department Angie Barros MD [address] [place], [place] [id number] CKD (chronic kidney disease), unspecified stage (Primary Dx); Vitamin D deficiency; Essential hypertension; Proteinuria 03/16/2016 Office Visit [facility] Physicians - Internal Medicine [address] [facility] [address] [place] [address] Social History Date Tobacco Use Types Packs/Day Years Used Never Smoker Sex Assigned at Date Recorded Not on file Industry Job Start Date Occupation Not on file Not on file Not on file Travel End Travel History Travel Start No recent travel history available. documented as of this encounter Last Filed Vital Signs Reading Time Taken [...] 03/16/2016 2:12 PM CDT Body Mass Index documented in this encounter Patient Instructions * Patient Instructions* Jaziel Cheung MD - 03/16/2016 2:55 PM CDT Please avoid any NSAIDS ( No ibuprofen, aleve, motrin, advil, naproxen, celebrex ).Stop taking celecoxib. Only tylenol for pain. Please have blood testings done tomorrow and I will call you in a couple of days ; if you do not hear from my office by Tuesday please call us at [phone]. I will call you to decide on starting new blood pressure medication to help the protein in urine. Please check your BP and weight daily and record in a journal. Please return to see us in about 6 months. documented in this encounter Progress Notes * Jaziel Cheung MD - 03/17/2016 11:06 PM CDT Lisandra Lr is a 25 y.o. female is here for follow up of her CKD and protei angeles. Subjective: HPI Ms Lr is a pleasant 25-year-old lady who has a very complicated past histor y, obtained mainly from review of outside records obtained following the visit a nd information supplemented by the patient's mother and caregiver. Of note, the patient has baseline hypoxic encephalopathy and difficulty with verbal communic ation and was not able to provide much history. Per mother, the patient has a known history of hypertension for at least six yea rs, initially reported with the of her first child. She has been five times during which, she had been noted to be hypertensive throughout her p regnancy. She had two children born prematurely and are . She reports havi ng preeclampsia with elevated blood pressure of 200 mmHg systolic and proteinuri a during all her , including her first six years ago and last one year and two months previously. She reportedly had an urgent C-s ection August of 2014 at the of her youngest son at [place] due to preeclampsia and proteinuria with nephrotic syndrome reported in one of the note s. She was supposed to have follow up with the load manager for potential biops y, but this did not occur. Per notes from [facility], it appears that the patient had been noted to be hypertensive in multiple followup visits, and it wa s not clear if she was compliant with her antihypertensive medication. No histo ry of diabetes. No history of systemic lupus nephritis, either personal or fami ly history. She previously reported NSAID use, about four tablets each time, bu t had completely stopped since the admission in January of 2015. She had an extensive and complicated admission February 25, 2015 until March 21 at [facility] in [place], [place]. She initially presented early January w ith cough, shortness of breath, not responding to antibiotic. Eventually was di agnosed with acute respiratory failure requiring intubation. Her initial EF was 15% and later improved to 35%, deemed to be nonischemic with a negative cardiac catheterization. She was diagnosed with an LV thrombus and was placed on Couma din. She self extubated and developed cardiac arrest on February 28, 2015, followin g which she developed hypoxic encephalopathy and acute kidney injury, with repor valencia peak creatinine of 3.9, improved to 2.18 on day of discharge, 03/21/2015. R eview of labs available in those outside records shows that her creatinine range d between 1.77, February 26, 2015 to 2.33 March 12, 2015, with a discharge creatinin e of 2.18 March 21, 2015. She was also diagnosed with malignant hypertension a nd was treated initially with JIA inhibitor. However per subsequent note, it wa s recorded that she has allergy to JIA inhibitor and ARB in the form of anaphyla xis. She is currently maintained on amlodipine, metoprolol, and clonidine p.r.n . She underwent an ultrasound of the renal arteries on March 03, 2015, showing n o renal artery stenosis. Right kidney of 9.9 x 4.5 cm with resistive indices of 0.7, and left kidney 9.2 x 4.3 cm with resisted indices of 0.7. She underwent an AICD placement, which subsequently required repositioning on 08/27/2015 when she was admitted with AICD dysfunction lead displacement. Review of records from her PCP from 07/2015 showed UA of 3+ protein,3-5 WBCs,0-2 RBC. Urine protein/cr was 1.7 g/g on 07/07/2015 and CR was 1.29 mg/dl on 5. The patient also reports a prior history of frequent urine tract infection. Non e recently. She denies any history of kidney stones. Has not been checking blood pressure at home. She denies any history of rashe s, mouth ulcers, photophobia. No joint swelling however reports intermittent lorraine int pain. Family history is negative for systemic lupus erythematosus, negative for end-st age renal disease, positive for hypertension, both from the maternal and paterna l side. Since last visit in 11/2015, she went to ED once for some beat in ICD, which was checked and found to be normal. Denies any chest pain/shortness of breath. Denies any lightheadedness or dizzine ss. Was dx with left elbow tendinitis and started on celecoxib on 03/04. She will be s eeing physical therapy for her elbow. Denies any nausea or vomiting. Denies any diarrhea. Denies dysuria,hemtauria or foamy urine.Denies any recent fever/chill . ROS A 12-point review of systems is otherwise negative. Specifically, the patient d enies any dizziness, lightheadedness. No palpitation, no chest pain, no orthopn ea, no lower extremity edema, no paroxysmal nocturnal dyspnea. She denies any f oamy urine. Denies currently seeing any blood in the urine, Objective: Filed Vitals: 03/16/16 1412 03/16/16 1422 BP: 128/94 108/86 Pulse: 69 74 Temp: 36.8 C (98.2 F) TempSrc: Oral Height: 160 cm (63") Weight: 81.647 kg (180 lb) Estimated body mass index is 31.89 kg/(m^2) as calculated from the following: Height as of this encounter: 160 cm (63"). Weight as of this encounter: 81.647 kg (180 lb). Physical Exam General exam: Alert, awake, oriented, however, with difficulty with verbal comm unication, in no distress. HEENT exam: Anicteric sclera with injected conjunctivae. Moist mucous membrane . Neck: No carotid bruit, no JVD. Heart: Regular rate and rhythm. No murmurs were noted. Lungs: Clear to auscultation bilaterally. Abdomen: Soft, nontender, nondistended. No CVA tenderness. No bruit heard. Extremities: Lower extremities: No edema. Skin: No rashes. Neurologic exam: Moving all 4 extremities with no difficulty, however, dysarthr ia noted. Basic Metabolic Profile Lab Results Component Value Date/Time SODIUM 142 03/17/2016 POTASSIUM 3.8 03/17/2016 CALCIUM 8.9 03/17/2016 CHLORIDE 111 03/17/2016 CO2 18 03/17/2016 ANION GAP 6 12/09/2015 02:47 PM Lab Results Component Value Date/Time BLOOD UREA NITROGEN 20 03/17/2016 CREATININE 1.47 03/17/2016 GLUCOSE 102 03/17/2016 CREATININE Date Value Ref Range Status 03/17/2016 1.47 high Final 12/23/2015 1.71 high Final 12/09/2015 1.83* 0.4 - 1.00 MG/DL Final PROTEIN/CR RATIO Date Value Ref Range Status 03/16/2016 0.5 Final 12/09/2015 0.9 Final Urine albumin/creatinine: 621 mcg/mg. JAX: positive at 160. C3/C4/CH50: normal. ANCA: negative. Hepatitis screen negative. HIV: negative. Local labs: negative serology (anti-DS DNA, anti GUM SPRAYER, anti SSA and anti SSB, ant i-kaba, negative anticardiolopin and lupus anticoagulant). Vitamin D: 6.3. Phos: 3.5. Assessment/Plan: 1. Chronic kidney disease, currently stage 3B-A3, likely secondary to hypertensi ve nephropathy and prior history of preeclampsia as well as history of SOILA secon myron to ATN in setting of cardiac arrest: 2. Proteinuria, subnephrotic, likely secondary to hypertensive nephropathy and p rior acute tubular injury: 3. History of nonischemic cardiomyopathy with prior history of cardiac arrest st atus post AICD placement: 4. Hypertension, currently relatively well controlled: 5. Severe hypovitaminosis D: The patient has extensive past history significant for several episodes of preec lampsia associated with severe proteinuria in the setting of poorly controlled h ypertension. She also has history of severe acute kidney injury following cardi ac arrest which could explain her current underlying chronic kidney disease in t he setting of a long history of poorly controlled hypertension. Protein/cr -- 0.5 Serological workup is negative including anticardiolipin US kidney was negative renal artery stenosis CR of 1.47 Calcium, Phosphorus and PTH are wnl . Rec - Need to adequately control of BP - Monitor of BP and weight at home. - As she is allergic ( anaphylaxis with ARB/ACEI) , will start her on aldactone 25 mg PO daily for anti-proteinuric effects. - Patient is advised to stop celecoxib now and use ice/heat/physical therapy for her tendinitis. - Avoid any NSAIDS in future. - Continue on 2000 units/day of ViT D for maintenance therapy. Follow up in 6 months Pt seen and discussed with Dr. ZANDER Daniels ATTESTATION I personally performed the maoyrga portions of the E/M visit, discussed case with re hilary and concur with resident documentation of history, physical exam, assessm ent, and treatment plan unless otherwise noted. HPI: Ms Lr is a pleasant 25-year-old lady with extensive past history of mu ltiple problems or cardiac arrest, anoxic brain injury, severe acute kidney inju ry with current chronic kidney disease and proteinuria. She is presenting for a followup visit. At her initial visit we performed serological testing which we re negative. We discuss initiation of spironolactone, however, we have not initi ated that yet. Since her last visit she denies any ER visits or hospitalization . She was seen by her canary raiser and is now off clonidine. Her blood pressur e is averaging 128/80s as noted today and her pulse has been above 60 BPM consis tently. The main change in her medications is addition of celecoxib 200 mg sinc e 03/04/2016 for tendonitis. She denies any trouble bleeding. No orthopnea or paroxysmal nocturnal dyspnea. No lower extremity edema. Feeling well overall. On physical exam: alert, awake, oriented, in no distress. HEENT: Anicteric scl erae, injected conjunctivae. Moist mucous membranes. Heart: Regular rate, no added sounds. Lungs: Clear. Lower Extremities: No edema. Abdomen: Soft, no ntender. Labs: Labs done locally; trend of labs as noted above with improved creatinine. Proteinuria noted to be improved. Assessment And Plan: 1. Chronic kidney disease stage 3B/A3, likely secondary to prior acute kidney in jury and hypertension: 2. Hypertension under better control: 3. History of cardiomyopathy with prior cardiac arrest: The patient appeared overall to be stable, however, her proteinuria is not very well controlled although improved. We would like to consider addition of spironolactone for its antiproteinuric eff ects, however, we would like to ensure that her labs are stable. I provided the patient with 2 sets of written orders, the 1st 1 for CMP as well as vitamin D, PTH and phosphorus to be done tomorrow at the local lab and then b ased on these results will determine if we are able to start spironolactone. Once spironolactone is started we will repeat chemistry panel 2 weeks later to e nsure no hyperkalemia and rise of creatinine. Both will be done locally and clear instructions were written down for the patie nt and her family and they voiced understanding. I have advised the patient to completely discontinue celecoxib and not to take a ny NSAIDs over the counter or prescription as it would impair her kidney and car diac function. We will also check a vitamin D, PTH and phosphorus to ensure that there are repl ete. Rest per Dr. hCeung. Return to clinic in about 6 months. Staff name: Angie Daniels MD Date: 03/25/2016 Orders Placed This Encounter 25-OH VITAMIN D (D2 + D3) today COMPREHENSIVE METABOLIC PANEL today PHOSPHORUS today PARATHYROID HORMONE today BASIC METABOLIC PANEL PROTEIN/CR RATIO, URINE RANDOM today POC URINE DIPSTICK AUTO READ spironolactone (ALDACTONE) 25 mg tablet Outpatient Encounter Prescriptions as of 03/16/2016 Medication Sig Dispense Refill acetaminophen (TYLENOL) 325 mg tablet Take 325 mg by mouth every 4 hours as needed for Pain. amLODIPine (NORVASC) 10 mg tablet Take 10 mg by mouth daily. [DISCONTINUED] celecoxib (CELEBREX) 200 mg capsule Take 200 mg by mouth twic e daily. [DISCONTINUED] cloNIDine HCl (CATAPRESS) 0.1 mg tablet Take 0.1 mg by mouth as Needed. diphenhydrAMINE (BENADRYL) 25 mg capsule Take 25 mg by mouth every 6 hours a s needed. DULoxetine DR (CYMBALTA) 60 mg capsule Take 60 mg by mouth twice daily. ergocalciferol (VITAMIN D-2) 50,000 unit capsule Take 1 Cap by mouth twice w eekly. twice a week for 4 weeks then once a week for 12 weeks. 24 Cap 0 ferrous sulfate 325 mg (65 mg iron) tablet Take 325 mg by mouth daily. folic acid (FOLVITE) 1 mg tablet Take 1 mg by mouth daily. metoprolol (LOPRESSOR) 50 mg tablet Take 50 mg by mouth twice daily. [DISCONTINUED] metroNIDAZOLE (FLAGYL) 500 mg tablet Take 500 mg by mouth thr ee times daily. pantoprazole DR (PROTONIX) 40 mg tablet Take 40 mg by mouth daily. spironolactone (ALDACTONE) 25 mg tablet Take 1 Tab by mouth daily. 90 Tab 3 suvorexant (BELSOMRA) 15 mg tab Take by mouth at bedtime as needed. topiramate (TOPAMAX) 200 mg tablet Take 200 mg by mouth twice daily. warfarin (COUMADIN) 3 mg tablet Take 3 mg by mouth daily. Pt takes 7 mg vinnie y. warfarin (COUMADIN) 4 mg tablet Take 4 mg by mouth daily. No facility-administered encounter medications on file as of 03/16/2016. * Yee Miranda LPN - 03/16/2016 2:12 PM CDT Ebola screening negative. documented in this encounter Plan of Treatment Order Schedule Name Type Priority Associated Diagnoses Expected: 03/30/2016 (Approximate), Expires: 03/16/2017 BASIC METABOLIC PANEL Lab Routine CKD (chronic kidney disease), unspecified stage documented as of this encounter Procedures Comments Procedure Name Priority Date/Time Associated Diagnosis POC URINE DIPSTICK AUTO Routine 03/16/2016 CKD (chronic kidney READ disease), unspecified stage documented in this encounter Results * PARATHYROID HORMONE (03/18/2016) PTH 62.3 IN CLINIC Specimen Blood - Blood Narrative Performed At Performing Organization Address City/State/Zipcode Phone Number IN CLINIC * 25-OH VITAMIN D (D2 + D3) (03/18/2016) Vitamin 27 low OTHER OUTSIDE D(25-OH)Total LAB Specimen Blood - Blood Narrative Performed At Performing Organization Address City/State/Zipcode Phone Number OTHER OUTSIDE LAB * PHOSPHORUS (03/17/2016) Phosphorus 3.1 OTHER OUTSIDE LAB Specimen Blood - Blood Narrative Performed At Performing Organization Address City/State/Zipcode Phone Number OTHER OUTSIDE LAB * COMPREHENSIVE METABOLIC PANEL (03/17/2016) Sodium 142 OTHER OUTSIDE LAB Potassium 3.8 OTHER OUTSIDE LAB Chloride 111 high OTHER OUTSIDE LAB CO2 18 low OTHER OUTSIDE LAB Blood Urea 20 OTHER OUTSIDE Nitrogen LAB Creatinine 1.47 high OTHER OUTSIDE LAB Glucose 102 high OTHER OUTSIDE LAB Calcium 8.9 OTHER OUTSIDE LAB Total Protein 6.8 OTHER OUTSIDE LAB Total Bilirubin OTHER OUTSIDE LAB Albumin OTHER OUTSIDE LAB Alk Phosphatase OTHER OUTSIDE LAB AST (SGOT) OTHER OUTSIDE LAB ALT (SGPT) OTHER OUTSIDE LAB eGFR Non 43 low OTHER OUTSIDE LAB Lebanese eGFR OTHER OUTSIDE Lebanese [facility] Anion Gap OTHER OUTSIDE LAB Specimen Blood - Blood Narrative Performed At Performing Organization Address City/State/Zipcode Phone Number OTHER OUTSIDE LAB * PROTEIN/CR RATIO,UR RAN (03/16/2016 4:06 PM CDT) Protein, Random 289 MG/DL [facility] Creatinine, 613 MG/DL [facility] Random Protein/CR 0.5 [facility] ratio Specimen Urine - Urine Performing Organization Address City/State/Zipcode Phone Number [facility] [address] [place] [address] * POC URINE DIPSTICK AUTO READ (03/16/2016) Urine Glucose norm IN CLINIC POC Urine Bilirubin 1 IN CLINIC POC Urine Ketone 15 IN CLINIC POC Urine Specific 1.025 IN CLINIC [place] POC Urine Blood POC neg IN CLINIC Urine PH POC 5 IN CLINIC Urine Protein 500 IN CLINIC POC Urine 1 IN CLINIC Urobilinogen POC Urine Nitrite neg IN CLINIC POC Urine neg IN CLINIC Leukocytes POC Color,UA IN CLINIC Turbidity,UA IN CLINIC Specimen Urine - Urine Performing Organization Address City/State/Zipcode Phone Number IN CLINIC documented in this encounter Visit Diagnoses Diagnosis CKD (chronic kidney disease), unspecified stage - Primary Vitamin D deficiency Unspecified vitamin D deficiency Essential hypertension Unspecified essential hypertension Proteinuria documented in this encounter
--- OUTSIDE RECORDS SUMMARY | 2019-05-11 13:32 | XMS REPORT | Encounter Summary ---
Author Author [facility] Organization [facility] Address Unknown Phone Unavailable Care Team Providers Care Battery Filler Name Role Phone Austin Tobias MD Unavailable Rhona Vazquez MD Unavailable Angie Barros MD Unavailable Marilyn Chapa MD PCP Unavailable Encounter Details Care Team Description Date Type Department Angie Barros MD [address] [place] [address] Chronic kidney disease, unspecified 03/16/2016 Hospital [facility] [address] [facility] [address] [place] [address] Social History Date Tobacco Use Types Packs/Day Years Used Never Smoker Sex Assigned at Date Recorded Not on file Industry Job Start Date Occupation Not on file Not on file Not on file Travel End Travel History Travel Start No recent travel history available. documented as of this encounter Medications at Time of Discharge Start Date End Date Medication Sig Dispensed Refills acetaminophen (TYLENOL) Take 325 mg 0 325 mg tablet by mouth every 4 hours as needed for Pain. amLODIPine (NORVASC) 10 Take 10 mg by 0 mg tablet mouth daily. diphenhydrAMINE Take 25 mg by 0 (BENADRYL) 25 mg capsule mouth every 6 hours as needed. DULoxetine DR (CYMBALTA) Take 60 mg by 0 60 mg capsule mouth twice daily. 12/18/2015 ergocalciferol (VITAMIN Take 1 Cap by 24 Cap 0 D-2) 50,000 unit mouth twice capsuleIndications: weekly. twice Vitamin D deficiency a week for 4 weeks then once a week for 12 weeks. ferrous sulfate 325 mg Take 325 mg 0 (65 mg iron) tablet by mouth daily. folic acid (FOLVITE) 1 mg Take 1 mg by 0 tablet mouth daily. metoprolol (LOPRESSOR) 50 Take 50 mg by 0 mg tablet mouth twice daily. pantoprazole DR Take 40 mg by 0 (PROTONIX) 40 mg tablet mouth daily. 03/19/2016 spironolactone Take 1 Tab by 90 Tab 3 (ALDACTONE) 25 mg mouth daily. tabletIndications: Essential hypertension, Proteinuria suvorexant (BELSOMRA) 15 Take by 0 mg tab mouth at bedtime as needed. topiramate (TOPAMAX) 200 Take 200 mg 0 mg tablet by mouth twice daily. warfarin (COUMADIN) 3 mg Take 3 mg by 0 tablet mouth daily. Pt takes 7 mg daily. warfarin (COUMADIN) 4 mg Take 4 mg by 0 tablet mouth daily. 03/19/2016 celecoxib (CELEBREX) 200 Take 200 mg 0 mg capsule by mouth twice daily. documented as of this encounter Plan of Treatment Not on filedocumented as of this encounter Procedures Comments Procedure Name Priority Date/Time Associated Diagnosis PROTEIN/CR RATIO,UR RAN Routine 03/16/2016 CKD (chronic kidney 4:06 PM CDT disease), unspecified stage documented in this encounter Results * PROTEIN/CR RATIO,UR RAN (03/16/2016 4:06 PM CDT) Protein, Random 289 MG/DL [facility] Creatinine, 613 MG/DL [facility] Random Protein/CR 0.5 [facility] ratio Specimen Urine - Urine Performing Organization Address City/State/Zipcode Phone Number [facility] [address] [place] [address] documented in this encounter Visit Diagnoses Diagnosis CKD (chronic kidney disease), unspecified stage documented in this encounter
--- OUTSIDE RECORDS SUMMARY | 2019-05-11 13:32 | XMS REPORT | Encounter Summary ---
Author Author [facility] Organization [facility] Address Unknown Phone Unavailable Care Team Providers Care Information Analyst Name Role Phone Austin Tobias MD Unavailable Rhona Vazquez MD Unavailable Angie Barros MD Unavailable Marilyn Chapa MD PCP Unavailable Encounter Details Care Team Description Date Type Department Angie Barros MD [address] [place] [address] CKD (chronic kidney disease), unspecified stage 03/19/2016 Orders Only [facility] Physicians - Internal Medicine [address] [facility] [address] [place] [address] Social History Date Tobacco Use Types Packs/Day Years Used Never Smoker Sex Assigned at Date Recorded Not on file Industry Job Start Date Occupation Not on file Not on file Not on file Travel End Travel History Travel Start No recent travel history available. documented as of this encounter Progress Notes * Angie Barros - 03/19/2016 10:59 AM CDT Quick Note: Yee Can you please inform patient and her mother that labs look stable with improve d creatinine and stable K level. I would like her to start spironolactone 25 mg daily (will place order) and the n return to her PCP office for BP check and labs in 2 weeks (I already provided her orders for labs in 2 weeks to be done locally). Still PTH and VIt D not back yet. documented in this encounter Plan of Treatment Not on filedocumented as of this encounter Procedures Comments Procedure Name Priority Date/Time Associated Diagnosis PHOSPHORUS Routine 03/17/2016 CKD (chronic kidney disease), unspecified stage COMPREHENSIVE METABOLIC Routine 03/17/2016 CKD (chronic kidney PANEL disease), unspecified stage documented in this encounter Results * PHOSPHORUS (03/17/2016) Phosphorus 3.1 OTHER OUTSIDE [...] eGFR Non 43 low OTHER OUTSIDE LAB [place] eGFR OTHER OUTSIDE [place] [facility] Anion Gap OTHER OUTSIDE LAB Specimen Blood - Blood Narrative Performed At Performing Organization Address City/State/Zipcode Phone Number OTHER OUTSIDE LAB documented in this encounter Visit Diagnoses Diagnosis CKD (chronic kidney disease), unspecified stage documented in this encounter
--- OUTSIDE RECORDS SUMMARY | 2019-05-11 13:32 | XMS REPORT | Encounter Summary ---
Author Author [facility] Organization [facility] Address Unknown Phone Unavailable Care Team Providers Care Banking Analyst Name Role Phone Austin Tobias MD Unavailable Rhona Vazquez MD Unavailable Angie Barros MD Unavailable Marilyn Chapa MD PCP Unavailable Encounter Details Care Team Description Date Type Department Angie Barros MD [address] [place] [address] 04/15/2016 Orders Only [facility] Physicians - Internal Medicine [address] [facility] MED OFFICE [address] [place] [address] Social History Date Tobacco Use Types Packs/Day Years Used Never Smoker Sex Assigned at Date Recorded Not on file Industry Job Start Date Occupation Not on file Not on file Not on file Travel End Travel History Travel Start No recent travel history available. documented as of this encounter Progress Notes * Angie Barros - 04/16/2016 3:20 PM CDT Quick Note: I contacted patient mother and reviewed labs showing stable kidney function and stable K 2 weeks after starting spironolactone (these results are from April 02 b ut obtained by my office only yesterday). BP has remained variable but she can not recall the exact values as she is not at home; I asked her to give us a call us back once she has access to these valu es to report it to us and determine if any adjustments in medication is needed. I confirmed that she has my office nb to call back. documented in this encounter Plan of Treatment Not on filedocumented as of this encounter Procedures Comments Procedure Name Priority Date/Time Associated Diagnosis BASIC METABOLIC PANEL Routine 04/02/2016 documented in this encounter Results * BASIC METABOLIC PANEL (04/02/2016) Sodium 142 OTHER OUTSIDE LAB Potassium 3.7 OTHER OUTSIDE LAB Chloride OTHER OUTSIDE LAB CO2 20 OTHER OUTSIDE LAB Blood Urea 17 OTHER OUTSIDE Nitrogen LAB Creatinine 1.5 OTHER OUTSIDE LAB Glucose OTHER OUTSIDE LAB Calcium OTHER OUTSIDE LAB eGFR Non OTHER OUTSIDE LAB [place] eGFR 42 OTHER OUTSIDE [place] [facility] Anion Gap OTHER OUTSIDE LAB Specimen Blood - Blood Narrative Performed At Performing Organization Address City/State/Zipcode Phone Number OTHER OUTSIDE LAB documented in this encounter Visit Diagnoses Not on filedocumented in this encounter
--- OUTSIDE RECORDS SUMMARY | 2019-05-11 13:33 | XMS REPORT | Encounter Summary ---
Author Author [facility] Organization [facility] Address Unknown Phone Unavailable Care Team Providers Care Operations Examiner Name Role Phone Austin Tobias MD Unavailable Rhona Vazquez MD Unavailable Angie Barros MD Unavailable Marilyn Chapa MD PCP Unavailable Encounter Details Care Team Description Date Type Department Angie Barros MD [address] [place] [address] Chronic kidney disease, stage 2 (mild) 12/09/2015 Hospital [facility] [address] [facility] [address] [place] [address] Social History Date Tobacco Use Types Packs/Day Years Used Never Smoker Sex Assigned at Date Recorded Not on file Industry Job Start Date Occupation Not on file Not on file Not on file Travel End Travel History Travel Start No recent travel history available. documented as of this encounter Medications at Time of Discharge Start Date End Date Medication Sig Dispensed Refills amLODIPine (NORVASC) 10 Take 10 mg by [...] 0 (PROTONIX) 40 mg tablet mouth daily. suvorexant (BELSOMRA) 15 Take by 0 mg tab mouth at bedtime as needed. warfarin (COUMADIN) 3 mg Take 3 mg by 0 tablet mouth daily. Pt takes 7 mg daily. warfarin (COUMADIN) 4 mg Take 4 mg by 0 tablet mouth daily. 03/16/2016 cloNIDine HCl (CATAPRESS) Take 0.1 mg 0 0.1 mg tablet by mouth as Needed. 03/16/2016 metroNIDAZOLE (FLAGYL) Take 500 mg 0 500 mg tablet by mouth three times daily. documented as of this encounter Plan of Treatment Not on filedocumented as of this encounter Procedures Comments Procedure Name Priority Date/Time Associated Diagnosis PROTEIN/CR RATIO,UR RAN 12/09/2015 Chronic kidney disease, 2:16 PM BELLHOP stage II (mild) Proteinuria MICROALB/CR RATIO-URINE 12/09/2015 Chronic kidney disease, RANDOM 2:16 PM BELLHOP stage II (mild) Proteinuria documented in this encounter Results * MICROALB/CR RATIO-URINE RANDOM (12/09/2015 2:16 PM BELLHOP) Microalbumin, 2,299.4 (H) <19 MCG/ML [facility] Random Creatinine, 370 MG/DL [facility] Random Microalbumin/CR 621.46 (H)Comment: NOTE NEW <30 ug/mg [facility] ratio Urine REFERENCE RANGES Specimen Performing Organization Address [facility] [place] Phone Number [facility] [address] [place] [address] * PROTEIN/CR RATIO,UR RAN (12/09/2015 2:16 PM BELLHOP) Protein, Random 315 MG/DL [facility] Creatinine, 370 MG/DL [facility] Random Protein/CR 0.9 [facility] ratio Specimen Performing Organization Address [facility] [place] Phone Number [facility] [address] [place] [address] documented in this encounter Visit Diagnoses Diagnosis Chronic kidney disease, stage II (mild) Chronic kidney disease, Stage II (mild) Proteinuria documented in this encounter
--- OUTSIDE RECORDS SUMMARY | 2019-05-11 13:33 | XMS REPORT | Encounter Summary ---
Author Author [facility] Organization [facility] Address Unknown Phone Unavailable Care Team Providers Care Brick Tester Name Role Phone Austin Tobias MD Unavailable Rhona Vazquez MD Unavailable Angie Barros MD Unavailable Marilyn Chapa MD PCP Unavailable Encounter Details Care Team Description Date Type Department Angie Barros MD [address] [place] [address] Chronic renal disease, stage III (Primary Dx) 12/16/2015 Orders Only [facility] Physicians - Internal Medicine [address] [facility] MED OFFICE [address] [place] [address] Social History Date Tobacco Use Types Packs/Day Years Used Never Smoker Sex Assigned at Date Recorded Not on file Industry Job Start Date Occupation Not on file Not on file Not on file Travel End Travel History Travel Start No recent travel history available. documented as of this encounter Plan of Treatment Not on filedocumented as of this encounter Results * BASIC METABOLIC PANEL (12/23/2015) Sodium 140 OTHER OUTSIDE LAB Potassium 4.3 OTHER OUTSIDE LAB Chloride 105 OTHER OUTSIDE LAB CO2 23 OTHER OUTSIDE LAB Blood Urea 18 OTHER OUTSIDE Nitrogen LAB Creatinine 1.71 high OTHER OUTSIDE LAB Glucose 83 OTHER OUTSIDE LAB Calcium 9.2 OTHER OUTSIDE LAB eGFR Non 36 low OTHER OUTSIDE LAB German eGFR 43 low OTHER OUTSIDE [place] LAB Anion Gap OTHER OUTSIDE LAB Specimen Blood - Blood Narrative Performed At Performing Organization Address City/State/Zipcode Phone Number OTHER OUTSIDE LAB documented in this encounter Visit Diagnoses Diagnosis Chronic renal disease, stage III (HCC) - Primary Chronic kidney disease, Stage III (moderate) documented in this encounter
--- OUTSIDE RECORDS SUMMARY | 2019-05-11 13:33 | XMS REPORT | Encounter Summary ---
Author Author [facility] Organization [facility] Address Unknown Phone Unavailable Care Team Providers Care Lurer Name Role Phone Austin Tobias MD Unavailable Rhona Vazquez MD Unavailable Angie Barros MD Unavailable Marilyn Chapa MD PCP Unavailable Reason for Visit * Reason Comments Follow-up Phone Call Encounter Details Care Team Description Date Type Department Angie Barros MD [address] [place] [address] Follow-up Phone Call 12/25/2015 Telephone [facility] Physicians - Internal Medicine [address] [facility] MED OFFICE [address]LD[address] [place] [address] Social History Date Tobacco Use Types Packs/Day Years Used Never Smoker Sex Assigned at Date Recorded Not on file Industry Job Start Date Occupation Not on file Not on file Not on file Travel End Travel History Travel Start No recent travel history available. documented as of this encounter Miscellaneous Notes * Telephone Encounter - Yee Miranda LPN - 12/25/2015 10:58 AM CHIN STRAP CUTTER Contacted pt regarding BP readings from home, pt reported readings from 12/14-0 12/23 with average BP: 120s-130s/50s-90s and P 50s-90s. Dr. Floyd Daniels notified, STRAP CUTTER documented in this encounter Plan of Treatment Not on filedocumented as of this encounter Visit Diagnoses Not on filedocumented in this encounter
--- OUTSIDE RECORDS SUMMARY | 2019-05-11 13:33 | XMS REPORT | Encounter Summary ---
Author Author [facility] Organization [facility] Address Unknown Phone Unavailable Care Team Providers Care Binder Selector Name Role Phone Austin Tobias MD Unavailable Rhona Vazquez MD Unavailable Angie Barros MD Unavailable Marilyn Chapa MD PCP Unavailable Encounter Details Care Team Description Date Type Department Angie Barros MD [address] [place] [address] Chronic renal disease, stage III; Positive JAX (antinuclear antibody) 01/08/2016 Orders Only [facility] Physicians - Internal Medicine [address] [facility] MED OFFICE [address] [place] [address] Social History Date Tobacco Use Types Packs/Day Years Used Never Smoker Sex Assigned at Date Recorded Not on file Industry Job Start Date Occupation Not on file Not on file Not on file Travel End Travel History Travel Start No recent travel history available. documented as of this encounter Progress Notes * Angie Barros - 01/08/2016 2:18 PM CAMP COORDINATOR Quick Note: I attempted to reach patient or her mother to review results obtained showing s light improvement of creatinine to 1.7 mg/dl, with stable electrolytes (Na 140,K 4.3,CO2 23,Ca 9.2) and with negative serology (anti-DS DNA, anti INTERIM CONTROLLER, anti SSA and anti SSB, anti-kaba, negative anticardiolopin and lupus anticoagulant). Of note I had reviewed ultrasound done previously showing small kidneys bilaterally ; no doppler evaluation was included in the report. At this time will continue current treatment and would like to confirm that bobby gutierrez's mother spoke to her scouring train operator chief about the intermittent bradycardia to en sure he did not recommend any changes to treatment. I left her a message to contact us back. COORDINATOR documented in this encounter Plan of Treatment Not on filedocumented as of this encounter Procedures Comments Procedure Name Priority Date/Time Associated Diagnosis CARDIOLIPIN AB IGG/IGM Routine 12/26/2015 Positive JAX (antinuclear antibody) ANTI-DNA DOUBLE STRAND Routine 12/26/2015 Positive JAX (antinuclear antibody) ANTI SSA ANTI SSB AB Routine 12/26/2015 Positive JAX (antinuclear antibody) HEX LUPUS ANTICOAGULANT Routine 12/23/2015 Positive JAX (antinuclear antibody) ANTI-JUSTIN Routine 12/23/2015 Positive JAX (antinuclear antibody) BASIC METABOLIC PANEL Routine 12/23/2015 Chronic renal disease, stage III documented in this encounter Results * ANTI SSA ANTI SSB AB (12/26/2015) Specimen Blood - Blood Narrative Performed At Performing Organization Address City/State/Zipcode Phone Number OTHER OUTSIDE LAB * ANTI-DNA DOUBLE STRAND (12/26/2015) Specimen Blood - Blood Narrative Performed At Performing Organization Address City/State/Zipcode Phone Number OTHER OUTSIDE LAB * CARDIOLIPIN AB IGG/IGM (12/26/2015) Cardiolipin, <4.0 OTHER OUTSIDE IgG LAB Cardiolipin, <4.0 OTHER OUTSIDE IgM LAB Specimen Blood - Blood Narrative Performed At Performing Organization Address City/State/Zipcode Phone Number OTHER OUTSIDE LAB * ANTI-JUSTIN (12/23/2015) Specimen Blood - Blood Narrative Performed At Performing Organization Address City/State/Zipcode Phone Number OTHER OUTSIDE LAB * HEX LUPUS ANTICOAGULANT (12/23/2015) Specimen Blood - Blood Narrative Performed At Performing Organization Address City/State/Zipcode Phone Number OTHER OUTSIDE LAB * BASIC METABOLIC PANEL (12/23/2015) Sodium 140 OTHER OUTSIDE LAB Potassium 4.3 OTHER OUTSIDE LAB Chloride 105 OTHER OUTSIDE LAB CO2 23 OTHER OUTSIDE LAB Blood Urea 18 OTHER OUTSIDE Nitrogen LAB Creatinine 1.71 high OTHER OUTSIDE LAB Glucose 83 OTHER OUTSIDE LAB Calcium 9.2 OTHER OUTSIDE LAB eGFR Non 36 low OTHER OUTSIDE LAB [place] eGFR 43 low OTHER OUTSIDE [place] LAB Anion Gap OTHER OUTSIDE LAB Specimen Blood - Blood Narrative Performed At Performing Organization Address City/State/Zipcode Phone Number OTHER OUTSIDE LAB documented in this encounter Visit Diagnoses Diagnosis Chronic renal disease, stage III (HCC) Chronic kidney disease, Stage III (moderate) Positive JAX (antinuclear antibody) Other and unspecified nonspecific immunological findings documented in this encounter
--- OUTSIDE RECORDS SUMMARY | 2019-05-11 13:34 | XMS REPORT | Encounter Summary ---
Author Author [facility] Organization [facility] Address Unknown Phone Unavailable Care Team Providers Care Sap Abap Programmer Name Role Phone Austin Tobias MD Unavailable Rhona Vazquez MD Unavailable Angie Barros MD Unavailable Marilyn Chapa MD PCP Unavailable Encounter Details Care Team Description Date Type Department Angie Barros MD [address] [place] [address] Chronic kidney disease, stage 2 (mild) 12/09/2015 Hospital [facility] [address] [facility] [address] [place] [address] Social History Date Tobacco Use Types Packs/Day [...] times daily. documented as of this encounter Progress Notes * Angie Barros - 12/16/2015 10:58 AM METAL BUGGY OPERATOR Quick Note: I contacted patient's mother and reviewed labs and recommendation to initiate e rgocalciferol and obtaining further laboratory values that were already ordered; she would prefer to have these done locally which I will ask my nurse to mail to her. She reports no bradycardia per home values. BP running 129-142/89-101 but occas ionaly patient not taking medications. I asked her to monitor BP daily after taking medications and resting for 5 min and contacting my clinic next Tuesday with a week of values to determine need to add on spironolactone. Will also repeat BMP with serological work-up to ensure that her creatinine is not rising further. Yee can you please mail the lab request to patient's mother? Also can you please add Odilon Inh and ARB as severe allergy (anaphylaxis) on her chart as I found that in her records from [facility]. Thanks. L BUGGY OPERATOR documented in this encounter Plan of Treatment Not on filedocumented as of this encounter Procedures Comments Procedure Name Priority Date/Time Associated Diagnosis HIV-1/2 ANTIGEN/ANTIBODY Routine 12/09/2015 CKD (chronic kidney SCREEN 2:47 PM METAL BUGGY OPERATOR disease), stage 2 (mild) Proteinuria ANTI-NUCLEAR Routine 12/09/2015 AB(JAX)-QUANT 2:47 PM METAL BUGGY OPERATOR HEPATITIS C AB Routine 12/09/2015 CKD (chronic kidney 2:47 PM METAL BUGGY OPERATOR disease), stage 2 (mild) Proteinuria HEPATITIS B CORE AB TOT Routine 12/09/2015 CKD (chronic kidney (IGG+IGM) 2:47 PM METAL BUGGY OPERATOR disease), stage 2 (mild) Proteinuria HEPATITIS A IGM Routine 12/09/2015 CKD (chronic kidney 2:47 PM METAL BUGGY OPERATOR disease), stage 2 (mild) Proteinuria HEPATITIS B SURFACE AG Routine 12/09/2015 CKD (chronic kidney 2:47 PM METAL BUGGY OPERATOR disease), stage 2 (mild) Proteinuria HEPATITIS B SURFACE AB Routine 12/09/2015 CKD (chronic kidney 2:47 PM METAL BUGGY OPERATOR disease), stage 2 (mild) Proteinuria ANTI-NEUT CYTO AB Routine 12/09/2015 CKD (chronic kidney (ANCA/PANCA) 2:47 PM METAL BUGGY OPERATOR disease), stage 2 (mild) Proteinuria 25-OH VITAMIN D (D2 + D3) Routine 12/09/2015 Vitamin D deficiency 2:47 PM METAL BUGGY OPERATOR CBC AND DIFF Routine 12/09/2015 CKD (chronic kidney 2:47 PM METAL BUGGY OPERATOR disease), stage 2 (mild) COMPLEMENT, TOTAL (CH50) Routine 12/09/2015 CKD (chronic kidney 2:47 PM METAL BUGGY OPERATOR disease), stage 2 (mild) Proteinuria C3 COMPLEMENT 3 Routine 12/09/2015 CKD (chronic kidney 2:47 PM METAL BUGGY OPERATOR disease), stage 2 (mild) Proteinuria C4 COMPLEMENT 4 Routine 12/09/2015 CKD (chronic kidney 2:47 PM METAL BUGGY OPERATOR disease), stage 2 (mild) Proteinuria ANTI-NUCLEAR Routine 12/09/2015 CKD (chronic kidney ANTIBODY(JAX) 2:47 PM METAL BUGGY OPERATOR disease), stage 2 (mild) Proteinuria PHOSPHORUS Routine 12/09/2015 CKD (chronic kidney 2:47 PM METAL BUGGY OPERATOR disease), stage 2 (mild) COMPREHENSIVE METABOLIC Routine 12/09/2015 CKD (chronic kidney PANEL 2:47 PM METAL BUGGY OPERATOR disease), stage 2 (mild) documented in this encounter Results * ANTI-NUCLEAR AB(JAX)-QUANT (12/09/2015 2:47 PM METAL BUGGY OPERATOR) JAX 160 (H)Comment: NUCLEOLAR <80 [facility] MAIN [facility] Titer/Pattern Specimen Performing Organization Address [facility] Phone Number [facility] [address] [place] [address] * HEPATITIS A IGM (12/09/2015 2:47 PM METAL BUGGY OPERATOR) Hepatitis A IgM NEG [facility]IN [facility] Specimen Blood Performing Organization Address [facility] Phone Number MA[facility] LAB [address] [place] [phone] * HEPATITIS B CORE AB TOT (IGG+IGM) (12/09/2015 2:47 PM METAL BUGGY OPERATOR) Anti HBc Total NEG MAIN LAB Specimen Blood Performing Organization Address [facility] Phone Number MAIN LAB [address] [place] [phone] * HEPATITIS B SURFACE AB (12/09/2015 2:47 PM METAL BUGGY OPERATOR) Anti HBs 27.3 mIU/ml MAIN LAB Comment: Hepatitis B Surface Antibody Reference Ranges >12.0 Positive 8.0-12.0Equivocal <8.0Negative Specimen Blood Performing Organization Address [facility] Phone Number MAIN LAB [address] [place] [address] * HEPATITIS B SURFACE AG (12/09/2015 2:47 PM METAL BUGGY OPERATOR) HBsAg NEG [facility] MAIN [facility] Specimen Blood Performing Organization Address [facility] Phone Number [facility] [address] [place] [address] * HEPATITIS C AB (12/09/2015 2:47 PM METAL BUGGY OPERATOR) Anti HCV NEG [facility] MAIN [facility] Specimen Blood Performing Organization Address [facility] Phone Number MA[facility] LAB [address] [place] [address] * HIV-1/2 ANTIGEN/ANTIBODY SCREEN (12/09/2015 2:47 PM METAL BUGGY OPERATOR) HIV 1 and 2 AG NEG NEG-NEG MAIN LAB AB Screen Specimen Blood Performing Organization Address City/[facility]/Zipcode Phone Number MAIN LAB [address] [place] [address] * ANTI-NUCLEAR ANTIBODY(JAX) (12/09/2015 2:47 PM METAL BUGGY OPERATOR) JAX Screen SEE TITER <80 TITER [facility] MAIN [facility] Specimen Blood Performing Organization Address [facility] Phone Number MA[facility] LAB [address] [place] [address] * ANTI-NEUT CYTO AB (ANCA/PANCA) (12/09/2015 2:47 PM METAL BUGGY OPERATOR) C-ANCA <20,NEGATIVE TITER MAIN LAB P-ANCA <20,NEGATIVE TITER MAIN LAB Specimen Blood Performing Organization Address [facility] Phone Number MAIN LAB [address] [place] [address] * C3 COMPLEMENT 3 (12/09/2015 2:47 PM METAL BUGGY OPERATOR) Complemnt C3 122.0 88 - 200 MG/DL MAIN LAB Specimen Blood Performing Organization Address [facility] Phone Number MA[facility] [address] [place] [address] * C4 COMPLEMENT 4 (12/09/2015 2:47 PM METAL BUGGY OPERATOR) Complemnt C4 42.0 10 - 49 MG/DL MAIN LAB Specimen Blood Performing Organization Address [facility] Phone Number MA[facility] LAB [address] [place] [address] * COMPLEMENT, TOTAL (CH50) (12/09/2015 2:47 PM METAL BUGGY OPERATOR) Complement CH50 86 41 - 95 U/mL MAIN LAB Comment: CH50 INTERPRETATION <41 LOW 41-95 NORMAL >95 HIGH Specimen Blood Performing Organization Address City/[facility] Phone Number MA[facility] [address] [place] [address] * PHOSPHORUS (12/09/2015 2:47 PM METAL BUGGY OPERATOR) Phosphorus 3.5 2.0 - 4.0 MG/DL MAIN LAB Specimen Blood Performing Organization Address [facility] Phone Number MAIN LAB [address] [place] [address] * COMPREHENSIVE METABOLIC PANEL (12/09/2015 2:47 PM METAL BUGGY OPERATOR) Sodium 137 137 - 147 MMOL/L [facility] MAIN [facility] Potassium 4.4 3.5 - 5.1 MMOL/L [facility] Chloride 109 98 - 110 MMOL/L [facility]IN [facility] Glucose 111 (H) 70 - 100 MG/DL [facility]IN [facility] Blood Urea 18 7 - 25 MG/DL [facility]IN [facility] Nitrogen Creatinine 1.83 (H) 0.4 - 1.00 MG/DL [facility] MAIN [facility] Calcium 9.4 8.6 - 10.3 MG/DL [facility] Total Protein 7.1 6.0 - 8.0 G/DL [facility]IN [facility] Total Bilirubin 0.3 0.3 - 1.2 MG/DL [facility] Albumin 4.3 3.5 - 5.0 G/DL [facility]IN [facility] Alk Phosphatase 64 25 - 110 U/L [facility] AST (SGOT) 13 7 - 40 U/L [facility] CO2 22 21 - 30 MMOL/L [facility] ALT (SGPT) 11 7 - 56 U/L [facility] Anion Gap 6 3 - 12 [facility]IN [facility] eGFR Non 33 (L) >60 mL/min [facility]IN [facility] Comment: [place] The eGFR is not validated for use in drug dosing adjustments.Continue to use estimated creatinine clearance per dosing reference text.Please contact the Clinical Pharmacist for questions. eGFR 40 (L) >60 mL/min [facility] MAIN [facility] [place] Comment: The eGFR is not validated for use in drug dosing adjustments.Continue to use estimated creatinine clearance per dosing reference text.Please contact the Clinical Pharmacist for questions. Specimen Blood Performing Organization Address City/State/Zipcode Phone Number MAIN LAB [address] [place] [address] * CBC AND DIFF (12/09/2015 2:47 PM METAL BUGGY OPERATOR) White Blood 5.4 4.5 - 11.0 K/UL [facility] MAIN [facility] Cells RBC 5.61 (H) 4.0 - 5.0 M/UL [facility] Hemoglobin 15.0 12.0 - 15.0 GM/DL [facility] Hematocrit 45.9 (H) 36 - 45 % [facility] MCV 81.7 80 - 100 FL [facility] MCH 26.7 26 - 34 PG [facility] MCHC 32.6 32.0 - 36.0 G/DL [facility] RDW 21.6 (H) 11 - 15 % [facility] Platelet Count 391 150 - 400 K/UL [facility] MPV 7.2 7 - 11 FL [facility] Neutrophils 36 (L) 41 - 77 % [facility] Lymphocytes 54 (H) 24 - 44 % [facility] Monocytes 8 4 - 12 % [facility] Eosinophils 1 0 - 5 % [facility] Basophils 1 0 - 2 % [facility] Absolute 1.90 1.8 - 7.0 K/UL [facility] Neutrophil Count Absolute Lymph 2.90 1.0 - 4.8 K/UL [facility] Count Absolute 0.40 0 - 0.80 K/UL [facility] Monocyte Count Absolute 0.10 0 - 0.45 K/UL [facility] Eosinophil Count Absolute 0.10 0 - 0.20 K/UL [facility] Basophil Count Specimen Blood Performing Organization Address City/State/Zipcode Phone Number MAIN LAB [address] [place] [address] * 25-OH VITAMIN D (D2 + D3) (12/09/2015 2:47 PM METAL BUGGY OPERATOR) Vitamin 6.3 (L) 30 - 80 NG/ML [facility] MAIN [facility] D(25-OH)Total Specimen Blood Performing Organization Address City/[facility] Phone Number [facility] [address] [place] [address] documented in this encounter Visit Diagnoses Diagnosis Vitamin D deficiency Unspecified vitamin D deficiency CKD (chronic kidney disease), stage 2 (mild) Proteinuria documented in this encounter
--- OUTSIDE RECORDS SUMMARY | 2019-05-11 13:34 | XMS REPORT | Encounter Summary ---
Author Author [facility] Organization [facility] Address Unknown Phone Unavailable Care Team Providers Care Loss Prevention Supervisor Name Role Phone Austin Tobias MD Unavailable Rhona Vazquez MD Unavailable Angie Barros MD Unavailable Marilyn Chapa MD PCP Unavailable Reason for Visit * Reason Comments Chronic Kidney Disease Encounter Details Care Team Description Date Type Department Angie Barros MD [address] [place], [place] [id number] CKD (chronic kidney disease), stage 2 (mild) (Primary Dx); Proteinuria; Vitamin D deficiency; Positive JAX (antinuclear antibody) 12/09/2015 Office Visit [facility] - Internal Medicine [address] [facility] MED OFFICE [address]LDG [address] [place] [address] Social History Date Tobacco Use Types Packs/Day Years Used Never Smoker Sex Assigned at Date Recorded Not on file Industry Job Start Date Occupation Not on file Not on file Not on file Travel End Travel History Travel Start No recent travel history available. documented as of this encounter Last Filed Vital Signs Reading Time Taken Comments Vital Sign 130/94 12/09/2015 1:07 PM [employer] Blood Pressure 43 12/09/2015 1:07 PM [employer] Pulse 36.6 C (97.8 F) 12/09/2015 1:03 PM [employer] Temperature - - Respiratory Rate - - Oxygen Saturation - - Inhaled Oxygen Concentration 84.4 kg (186 lb) 12/09/2015 1:03 PM [employer] Weight 160 cm (5' 3") 12/09/2015 1:03 PM [employer] Height 32.95 12/09/2015 1:03 PM [employer] Body Mass Index documented in this encounter Patient Instructions * Patient Instructions* Angie Barros - 12/09/2015 1:32 PM EN[employer]EL[employer] PATTERN[employer] Please have blood testings done today and I will call you with results to decide on further measures, Please have the ultrasound done at your convenience. Please avoid all pain medications over the counter except for tylenol. Please monitor heart rate and let Dr. Cedillo and me know if it drops below 60. Please return to see me in about 2 months (sooner if we need to have further susannah ting). [employer] PATTERN[employer] documented in this encounter Progress Notes * Angie Barros - 12/16/2015 9:49 AM EN[employer] PATTERN[employer] Lisandra Lr is a 25 y.o. female referred for evaluation of elevated creati nine and proteinuria. Subjective: HPI Ms Lr is a pleasant 25-year-old lady referred for evaluation of proteinuria and elevated creatinine. The patient has a very complicated past history, obta ined mainly from review of outside records obtained following the visit and info rmation supplemented by the patient's mother and caregiver. Of note, the patien t has baseline hypoxic encephalopathy and difficulty with verbal communication a nd was not able to provide much history. Per mother, the patient has a known history of hypertension for at least six yea rs, initially reported with the of her first child. She has been five times during which, she had been noted to be hypertensive throughout her p regnancy. She had two children born prematurely and dying. She reports having preeclampsia with elevated blood pressure of 200 mmHg systolic and proteinuria d uring all her , including her first six years ago and last pr egnancy one year and two months previously. She reportedly had an urgent C-sect ion August of 2014 at the of her youngest son at [place] due to pre eclampsia and proteinuria with nephrotic syndrome reported in one of the notes. She was supposed to have follow up with the dispenser operator for potential biopsy, but this did not occur. Per notes from [facility], it appears that the pat ient had been noted to be hypertensive in multiple followup visits, and it was n ot clear if she was compliant with her antihypertensive medication. No history of diabetes. No history of systemic lupus nephritis, either personal or family history. She previously reported NSAID use, about four tablets each time, but h ad completely stopped since the admission in January of 2015. She had an extensive and complicated admission February 25, 2015 until March 21 at [facility] in [place], [place]. She initially presented early January w [...] was admitted with AICD dysfunction lead displacement. Outside records from [facility] were requested but not yet obtained. The patient also reports a prior history of frequent urine tract infection. Non e recently. She denies any history of kidney stones. Does not take any NSAID use currently. Has not been checking blood pressure at home. She denies any history of rashes, mouth ulcers, photophobia. No joint sw elling however reports intermittent joint pain. Family history is negative for systemic lupus erythematosus, negative for end-st age renal disease, positive for hypertension, both from the maternal and paterna l side. Review of records from her primary care provider from June of 2015 shows a U A with 3+ protein, 3-5 white blood cells, 0-2 red blood cells. Urine protein to creatinine ratio was 1.7 g/g on 07/07/2015 and creatinine was 1.29 mg/dL 2014. ROS A 12-point review of systems is otherwise negative. Specifically, the patient d enies any dizziness, lightheadedness. No palpitation, no chest pain, no orthopn ea, no lower extremity edema, no paroxysmal nocturnal dyspnea. She denies any f oamy urine. Denies currently seeing any blood in the urine, reported having see n blood in her urine after a ureteral ablation, which was done, per mother, main ly for contraceptive purposes. Objective: Filed Vitals: 12/09/15 1303 12/09/15 1307 BP: 121/89 130/94 Pulse: 78 43 Temp: 36.6 C (97.8 F) TempSrc: Oral Height: 160 cm (63") Weight: 84.369 kg (186 lb) Estimated body mass index is 32.96 kg/(m^2) as calculated from the following: Height as of this encounter: 160 cm (63"). Weight as of this encounter: 84.369 kg (186 lb). Physical Exam General exam: Alert, awake, [...] Metabolic Profile Lab Results Component Value Date/Time NA 137 12/09/2015 02:47 PM K 4.4 12/09/2015 02:47 PM CA 9.4 12/09/2015 02:47 PM CL 109 12/09/2015 02:47 PM CO2 22 12/09/2015 02:47 PM GAP 6 12/09/2015 02:47 PM Lab Results Component Value Date/Time BUN 18 12/09/2015 02:47 PM CR 1.83* 12/09/2015 02:47 PM GLU 111* 12/09/2015 02:47 PM PROTEIN/CR RATIO Date Value Ref Range Status 12/09/2015 0.9 Final Urine albumin/creatinine: 621 mcg/mg. JAX: positive at 160. C3/C4/CH50: normal. ANCA: negative. Hepatitis screen negative. HIV: negative. Vitamin D: 6.3. Phos: 3.5. Assessment/Plan: 1. [...] a long history of poorly controlled hypertension. She does not have any active sediment with no hematuria to suggest lupus nephrit is. She has subnephrotic proteinuria currently at the range of 0.9 g/gram which has improved compared to the last check in June of 2015. Complement level, ANCA, hepatitis screen and HIV are negative. She does not hav e anemia or hypercalcemia to suggest any monoclonal paraproteinemia which would be rare at her age. She does have a positive JAX which would be worth investigating further and we w ill request an JUSTIN cascade as well as lupus anticoagulant given her history of L V thrombus. Regarding management of her hypertension, this is currently relatively well cont rolled. I have asked the patient to monitor blood pressure and heart rate at [facility] and report values to us, to me and to Dr. Wilkerson, her rn float. If heart rate continues to intermittently drop to lower than 50 I would recommend to comp letely avoid clonidine and potentially decrease dose of metoprolol to 25 b.i.d. and as a 2nd step I would add spironolactone 25 mg daily as this would be a good antiproteinuric alternative to JIA inhibitor and ARB as both have been reported as causing anaphylaxis and would not be safe to use in her case. I would also like to obtain an ultrasound of her kidneys with Dopplers of the re nal artery to evaluate for renal artery stenosis. I stressed the importance of avoidance of NSAID use and would further avoid any IV contrast. Will need to monitor her creatinine closely as it appears to fluctuate and was a t 1.3 mg/dL in June, currently at 1.85 mg/dl. If spironolactone is initiated will need to repeat a blood pressure check and BMP about 1-2 weeks after initiat ion of the treatment to ensure no hyperkalemia and no rise in her creatinine. T his could be done locally and if it is easier as patient lives far from [facility]. Regarding hypovitaminosis D, I recommend initiation of ergocalciferol 50,000 uni ts twice a week for 4 weeks, then once a week for 12 weeks and then can be switc hed to hczs-[id number]-[id number] vitamin D 1000 units daily. We will await also further records from [place] to assess her history of p reeclampsia. Lab results reviewed with the patient's mother after the visit as well as recomm endations. Follow-up labs will be done locally. Orders Placed This Encounter US DOPPLER ABD PELV RETROPER COMP 25-OH VITAMIN D (D2 + D3) today CBC+DIFF today COMPREHENSIVE METABOLIC PANEL today PHOSPHORUS today COMPLEMENT, TOTAL (CH50) today C4 COMPLEMENT 4 today C3 COMPLEMENT 3 today ANTI-NEUT CYTO AB (ANCA/PANCA) today ANTI-NUCLEAR ANTIBODY (JAX) today HIV AB SCREEN (1 AND 2) today MICROALB/CR RATIO-URINE RANDOM today PROTEIN/CR RATIO, URINE RANDOM today HEPATITIS C AB HEPATITIS A IGM HEPATITIS B SURFACE AG HEPATITIS B SURFACE AB HEPATITIS B CORE AB TOT (IGG+IGM) POC URINE DIPSTICK AUTO READ Outpatient Encounter Prescriptions as of 12/09/2015 Medication Sig Dispense Refill amLODIPine (NORVASC) 10 mg tablet Take 10 mg by mouth daily. cloNIDine HCl (CATAPRESS) 0.1 mg tablet Take 0.1 mg by mouth as Needed. diphenhydrAMINE (BENADRYL) 25 mg capsule Take 25 mg by mouth every 6 hours a s needed. DULoxetine DR (CYMBALTA) 60 mg capsule Take 60 mg by mouth daily. ferrous sulfate 325 mg (65 mg iron) tablet Take 325 mg by mouth daily. folic acid (FOLVITE) 1 mg tablet Take 1 mg by mouth daily. metoprolol (LOPRESSOR) 50 mg tablet Take 50 mg by mouth twice daily. metroNIDAZOLE (FLAGYL) 500 mg tablet Take 500 mg by mouth three times daily. pantoprazole DR (PROTONIX) 40 mg tablet Take 40 mg by mouth daily. suvorexant (BELSOMRA) 15 mg tab Take by mouth at bedtime as needed. warfarin (COUMADIN) 3 mg tablet Take 3 mg by mouth daily. warfarin (COUMADIN) 4 mg tablet Take 4 mg by mouth daily. No facility-administered encounter medications on file as of 12/09/2015. LOPE PATTERNMAKER * Yee Miranda LPN - 12/09/2015 12:51 PM ENVELOPE PATTERNMAKER Ebola screening negative. [employer]OPE PATTERNMAKER documented in this encounter Plan of Treatment Order Schedule Name Type Priority Associated Diagnoses Expected: 12/09/2015 (Approximate), Expires: 12/09/2016 US DOPPLER ABD PELV Imaging Routine CKD (chronic kidney RETROPER COMP disease), stage 2 (mild) Proteinuria Expected: 12/16/2015 (Approximate), Expires: 12/16/2016 ANTI [place](SM) ANTI [employer] SUPERVISOR Lab Routine Positive JAX (antinuclear AB antibody) documented as of this encounter Procedures Comments Procedure Name Priority Date/Time Associated Diagnosis POC URINE DIPSTICK AUTO Routine 12/09/2015 CKD (chronic kidney READ 2:17 PM ENVELOPE PATTERNMAKER disease), stage 2 (mild) documented in this encounter Results * CARDIOLIPIN AB IGG/IGM (12/26/2015) Cardiolipin, <4.0 OTHER OUTSIDE IgG LAB Cardiolipin, <4.0 OTHER OUTSIDE IgM LAB Specimen Blood - Blood Narrative Performed At Performing Organization Address City/State/Zipcode Phone Number OTHER OUTSIDE LAB * ANTI-DNA DOUBLE STRAND (12/26/2015) Specimen Blood - Blood Narrative Performed At Performing Organization Address City/State/Zipcode Phone Number OTHER OUTSIDE LAB * ANTI SSA ANTI SSB AB (12/26/2015) Specimen Blood - Blood Narrative Performed At Performing Organization Address City/State/Zipcode Phone Number OTHER OUTSIDE LAB * HEX LUPUS ANTICOAGULANT (12/23/2015) Specimen Blood - Blood Narrative Performed At Performing Organization Address City/State/Zipcode Phone Number OTHER OUTSIDE LAB * ANTI-JUSTIN (12/23/2015) Specimen Blood - Blood Narrative Performed At Performing Organization Address City[facility] OTHER OUT[facility] * HEPATITIS B CORE AB TOT (IGG+IGM) (12/09/2015 2:47 PM ENVELOPE PATTERNMAKER) Anti HBc Total NEG MAIN LAB Specimen Blood Performing Organization Address [facility] Phone Number MAIN LAB [address] [place] [address] * HEPATITIS B SURFACE AB (12/09/2015 2:47 PM ENVELOPE PATTERNMAKER) Anti HBs 27.3 mIU/ml MAIN LAB Comment: Hepatitis B Surface Antibody Reference Ranges >12.0 Positive 8.0-12.0Equivocal <8.0Negative Specimen Blood Performing Organization Address [facility] Phone Number MAIN LAB [address] [place] [address] * HEPATITIS B SURFACE AG (12/09/2015 2:47 PM ENVELOPE PATTERNMAKER) HBsAg NEG MAIN LAB Specimen Blood Performing Organization Address [facility] Phone Number MAIN LAB [address] [place] [address] * HEPATITIS A IGM (12/09/2015 2:47 PM ENVELOPE PATTERNMAKER) Hepatitis A IgM NEG MAIN LAB Specimen Blood Performing Organization Address [facility] Phone Number MAIN LAB [address] [place] [address] * HEPATITIS C AB (12/09/2015 2:47 PM ENVELOPE PATTERNMAKER) Anti HCV NEG MAIN LAB Specimen Blood Performing Organization Address [facility]/Zipcode Phone Number MAIN LAB [address] [place] [address] * HIV-1/2 ANTIGEN/ANTIBODY SCREEN (12/09/2015 2:47 PM ENVELOPE PATTERNMAKER) HIV 1 and 2 AG NEG NEG-NEG MAIN LAB AB Screen Specimen Blood Performing Organization Address [facility] Phone Number MAIN LAB [address] [place] [address] * ANTI-NUCLEAR ANTIBODY(JAX) (12/09/2015 2:47 PM ENVELOPE PATTERNMAKER) JAX Screen SEE TITER <80 TITER MAIN LAB Specimen Blood Performing Organization Address [facility] Phone Number MAIN LAB [address] [place] [address] * ANTI-NEUT CYTO AB (ANCA/PANCA) (12/09/2015 2:47 PM ENVELOPE PATTERNMAKER) C-ANCA <20,NEGATIVE TITER MAIN LAB P-ANCA <20,NEGATIVE TITER MAIN LAB Specimen Blood Performing Organization Address [facility] Phone Number MAIN LAB [address] [place] [address] * C3 COMPLEMENT 3 (12/09/2015 2:47 PM ENVELOPE PATTERNMAKER) Complemnt C3 122.0 88 - 200 MG/DL MAIN LAB Specimen Blood Performing Organization Address [facility] Phone Number MAIN LAB [address] [place] [address] * C4 COMPLEMENT 4 (12/09/2015 2:47 PM ENVELOPE PATTERNMAKER) Complemnt C4 42.0 10 - 49 MG/DL MAIN LAB Specimen Blood Performing Organization Address [facility] Phone Number MAIN LAB [address] [place] [address] * COMPLEMENT, TOTAL (CH50) (12/09/2015 2:47 PM ENVELOPE PATTERNMAKER) Complement CH50 86 41 - 95 U/mL MAIN LAB Comment: CH50 INTERPRETATION <41 LOW 41-95 NORMAL >95 HIGH Specimen Blood Performing Organization Address [facility] Phone Number MAIN LAB [address] [place] [address] * PHOSPHORUS (12/09/2015 2:47 PM ENVELOPE PATTERNMAKER) Pathologist [facility] Phosphorus 3.5 2.0 - 4.0 MG/DL MAIN LAB Specimen Blood Performing Organization Address City/State/Zipcode Phone Number [facility] [address] [place] [phone] * COMPREHENSIVE METABOLIC PANEL (12/09/2015 2:47 PM ENVELOPE PATTERNMAKER) Pathologist [facility] Sodium 137 137 - 147 MMOL/L [facility] [...] (L) >60 mL/min [facility] MAIN LAB Comment: [place] The eGFR is not validated for use in drug dosing adjustments.Continue to use estimated creatinine clearance per dosing reference text.Please contact the Clinical Pharmacist for questions. eGFR 40 (L) >60 mL/min [facility] MAIN LAB [place] Comment: The eGFR is not validated for use in drug dosing adjustments.Continue to use estimated creatinine clearance per dosing reference text.Please contact the Clinical Pharmacist for questions. Specimen Blood Performing Organization Address City/State/Zipcode Phone Number [facility] [address] [place] [address] * CBC AND DIFF (12/09/2015 2:47 PM ENVELOPE PATTERNMAKER) Pathologist [facility] White Blood 5.4 4.5 - 11.0 K/UL [...] Basophil Count Specimen Blood Performing Organization Address City/[facility] Phone Number MAIN LAB [address] [place] [phone] * 25-OH VITAMIN D (D2 + D3) (12/09/2015 2:47 PM ENVELOPE PATTERNMAKER) Vitamin 6.3 (L) 30 - 80 NG/ML MAIN LAB D(25-OH)Total Specimen Blood Performing Organization Address [facility] Phone Number [facility] [address] [place] [address] * POC URINE DIPSTICK AUTO READ (12/09/2015 2:17 PM ENVELOPE PATTERNMAKER) Urine Glucose norm IN CLINIC POC Urine Bilirubin 1 IN CLINIC POC Urine Ketone neg IN CLINIC POC Urine Specific 1.020 IN CLINIC [place] POC Urine Blood POC neg IN CLINIC Urine PH POC 6 IN CLINIC Urine Protein 500 IN CLINIC POC Urine 1 IN CLINIC Urobilinogen POC Urine Nitrite neg IN CLINIC POC Urine 25 IN CLINIC Leukocytes POC Color,UA IN CLINIC Turbidity,UA IN CLINIC Specimen Urine - Urine Performing Organization Address City/[facility] Phone Number IN [facility]IC documented in this encounter Visit Diagnoses Diagnosis CKD (chronic kidney disease), stage 2 (mild) - Primary Proteinuria Vitamin D deficiency Unspecified vitamin D deficiency Positive JAX (antinuclear antibody) Other and unspecified nonspecific immunological findings documented in this encounter
--- OUTSIDE RECORDS SUMMARY | 2019-05-11 13:39 | XMS REPORT | Continuity of Care Document ---
Author Organization Unknown Address Unknown Allergies Active Description Code Type Severity Reaction Onset Reported/Identified Relationship to Patient Clinical Status Yes bacl bacl Moderate N/A 03/21/2015 Yes baclofen [id number] Drug Allergy Unknown N/A 03/24/2015 Yes phenazopyridine [id number] Drug Allergy Unknown N/A 03/24/2015 Yes ARB-Angiotensin Receptor Antagonist [id number] Drug Allergy Severe N/A 07/24/2015 Yes JIA Inhibitors [id number] Drug Allergy Severe N/A 04/12/2019 Medications There [...] MAZARIEGOS, LISSET E Ot 300.00 03/27/2015 KAUR MAZRAIEGOS, LISSET E Ot 310.89 03/27/2015 KARU MAZARIEGOS, LISSET E Ot 348.1 03/27/2015 KAUR [...] MAZARIEGOS, LISSET E Ot 348.1 04/12/2015 KAUR MZAARIEGOS, LISSET E Ot 348.31 04/12/2015 KAUR MAZARIEGOS, [...] INITIAL ENCOUNTER 08/05/2018 NIK CELIS Ot 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 ANTICOAGULANT 08/05/2018 NIK CELIS Ot Z79.51 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 SUPERVISOR (CURRENT) USE OF INHALED STERO 08/05/2018 NIK [...] INITIAL ENCOUNTER 08/08/2018 NIK CELIS Ot 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 ANTICOAGULANT 08/08/2018 NIK CELIS Ot Z79.51 RETIREMENT (CURRENT) USE OF INHALED STERO 08/08/2018 NIK [...] UNSPECIFIED 10/24/2018 FELECIA FORTUNE MD, Ot 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 ANTICOAGULANT 11/01/2018 RALPH LÓPEZ [...] HEADACHE 11/01/2018 RALPH LÓPEZ MD, Ot Z79.01 RETIREMENT (CURRENT) USE OF ANTICOAGULANT 11/01/2018 RALPH LÓPEZ MD Ot Z79.51 RETIREMENT (CURRENT) USE OF INHALED STERO 11/01/2018 RALPH [...] HEADACHE 11/03/2018 RALPH LÓPEZ MD Ot Z79.01 RETIREMENT (CURRENT) USE OF ANTICOAGULANT 11/03/2018 RALPH LÓPEZ MD Ot Z79.51 RETIREMENT (CURRENT) USE OF INHALED STERO 11/03/2018 RALPH [...] HEADACHE 11/09/2018 RALPH LÓPEZ MD, Ot Z79.01 RETIREMENT (CURRENT) USE OF ANTICOAGULANT 11/09/2018 RALPH LÓPEZ MD Ot Z79.51 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 SUPERVISOR (CURRENT) USE OF INHALED STERO 11/09/2018 RALPH [...] R05 COUGH 01/01/2019 NIK CELIS Ot 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 ANTICOAGULANT 01/01/2019 NIK CELIS Ot Z79.51 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 SUPERVISOR (CURRENT) USE OF INHALED STERO 01/01/2019 NIK CELIS Ot Z87.01 PERSONAL HISTORY OF PNEUMONIA (RECURRENT 01/01/2019 NIK CELIS Ot Z87.448 PERSONAL HISTORY OF OTHER DISEASES OF UR 01/01/2019 NIK CELIS Ot Z87.820 PERSONAL HISTORY OF TRAUMATIC BRAIN INJU 01/01/2019 NIK CELIS Ot Z87.891 PERSONAL HISTORY OF NICOTINE DEPENDENCE 01/01/2019 NIK CELIS Ot Z88.8 ALLERGY STATUS TO [facility] DRUG/MEDS/BIOL SUB 01/01/2019 NIK CELIS Ot Z93.0 [...] UNSPECIFIED 01/06/2019 FELECIA FORTUNE MD, Ot Z79.01 RETIREMENT (CURRENT) USE OF ANTICOAGULANT 01/06/2019 FEDE AMARO [...] IN 01/06/2019 FEDE AMARO MD, Ot 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 ANTICOAGULANT 01/06/2019 FEDE AMARO MD, Ot Z79.51 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 SUPERVISOR (CURRENT) USE OF INHALED STERO 01/06/2019 FEDE AMARO MD, Ot Z79.52 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 SUPERVISOR (CURRENT) USE OF SYSTEMIC STER 01/06/2019 FEDE [...] AMARO MD, Ot Z88.8 ALLERGY STATUS TO [facility] DRUG/MEDS/BIOL SUB 01/06/2019 FEDE AMARO MD, Ot [...] R05 COUGH 01/07/2019 NIK CELIS Ot Z79.01 RETIREMENT (CURRENT) USE OF ANTICOAGULANT 01/07/2019 NIK CELIS Ot Z79.51 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 SUPERVISOR (CURRENT) USE OF INHALED STERO 01/07/2019 NIK [...] IN 01/09/2019 FEDE AMARO MD Ot 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 ANTICOAGULANT 01/09/2019 FEDE AMARO MD Ot Z79.51 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 SUPERVISOR (CURRENT) USE OF INHALED STERO 01/09/2019 FEDE AMARO MD Ot Z79.52 RETIREMENT (CURRENT) USE OF SYSTEMIC STER 01/09/2019 FEDE [...] ELBOW 04/09/2019 DELIO ARIZA DO, Ot Z79.01 RETIREMENT (CURRENT) USE OF ANTICOAGULANT 04/09/2019 DELIO ARIZA DO, Ot Z79.52 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 SUPERVISOR (CURRENT) USE OF SYSTEMIC STER 04/09/2019 DELIO [...] UNSPECIFIED 04/09/2019 FELECIA FORTUNE MD Ot Z79.01 RETIREMENT (CURRENT) USE OF ANTICOAGULANT 04/12/2019 DELIO ARIZA [...] ELBOW 04/12/2019 DELIO ARIZA DO, Ot 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 ANTICOAGULANT 04/12/2019 DELIO ARIZA DO, Ot Z79.52 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 SUPERVISOR (CURRENT) USE OF SYSTEMIC STER 04/12/2019 DELIO ARIZA DO, Ot Z86.69 PERSONAL HISTORY OF DIS OF THE NERVOUS S 04/12/2019 DELIO ARIZA DO, Ot Z86.79 PERSONAL HISTORY OF OTHER DISEASES OF 04/12/2019 DELIO ARIZA DO, Ot Z87.01 PERSONAL HISTORY OF PNEUMONIA (RECURRENT 04/12/2019 DELIO ARIZA DO, Ot Z87.09 PERSONAL HISTORY OF OTHER DISEASES OF 04/12/2019 DELIO ARIZA DO, Ot Z88.8 ALLERGY STATUS TO [facility] DRUG/MEDS/BIOL SUB 04/12/2019 DELIO ARIZA DO Ot Z93.0 TRACHEOSTOMY STATUS 04/12/2019 DELIO ARIZA DO, Ot Z95.810 PRESENCE OF AUTOMATIC (IMPLANTABLE) CARD 04/12/2019 DELIO ARIAZ DO, Ot Z98.890 OTHER SPECIFIED POSTPROCEDURAL STATES [...] HEADACHE 04/12/2019 EDISON CHAMBERLAIN MD, Ot Z79.01 RETIREMENT (CURRENT) USE OF ANTICOAGULANT 04/12/2019 EDISON CHAMBERLAIN MD, Ot Z79.52 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 SUPERVISOR (CURRENT) USE OF SYSTEMIC STER 04/12/2019 EDISON [...] CHAMBERLAIN MD, Ot Z88.8 ALLERGY STATUS TO [facility] DRUG/MEDS/BIOL SUB 04/12/2019 EDISON CHAMBERLAIN MD, Ot Z93.0 TRACHEOSTOMY STATUS 04/12/2019 EDISON CHAMBERLAIN MD, Ot Z95.810 PRESENCE OF AUTOMATIC (IMPLANTABLE) CARD 04/12/2019 EDISON CHAMBERLAIN MD, Ot Z98.890 OTHER SPECIFIED POSTPROCEDURAL STATES 04/16/2019 EDISON CHAMBERLAIN MD, Ot D64.9 ANEMIA, UNSPECIFIED 04/16/2019 EDISNO CHAMBERLAIN MD, Ot F31.9 BIPOLAR DISORDER, UNSPECIFIED [...] HEADACHE 04/16/2019 EDISON CHAMBERLAIN MD, Ot Z79.01 RETIREMENT (CURRENT) USE OF ANTICOAGULANT 04/16/2019 EDISON CHAMBERLAIN MD, Ot Z79.52 RETIREMENT (CURRENT) USE OF SYSTEMIC STER 04/16/2019 EDISON [...] FATIGUE 04/19/2019 LISA MARCELINO APRN Ot 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 ANTICOAGULANT 04/19/2019 LISA MARCELINO APRN Ot Z79.52 RETIREMENT (CURRENT) USE OF SYSTEMIC STER 04/19/2019 LISA [...] 04/20/2019 RICHARD DO, VINITA L Ot Z79.01 RETIREMENT (CURRENT) USE OF ANTICOAGULANT 04/20/2019 RICHARD DO, VINIAT L Ot Z87.01 PERSONAL HISTORY OF PNEUMONIA [...] 04/25/2019 RICHARD DO, VINITA L Ot 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 ANTICOAGULANT 04/25/2019 RICHARD DO, [...] DISEASE WITHOUT 05/05/2019 NIK CELIS Ot T82.198A [facility] COMPL OF OTHER CARDIAC ELECTRONIC D 05/05/2019 NIK CELIS Ot Z79.01 RETIREMENT (CURRENT) USE OF ANTICOAGULANT 05/05/2019 PEDRO CELISIS Ot Z79.52 RETIREMENT (CURRENT) USE OF SYSTEMIC STER 05/05/2019 PEDRO CELISIS Ot Z86.79 PERSONAL HISTORY OF OTHER DISEASES OF TH 05/05/2019 PEDRO CELISIS Ot Z87.01 PERSONAL HISTORY OF PNEUMONIA (RECURRENT 05/05/2019 PEDRO CELISIS Ot Z88.8 ALLERGY STATUS TO [facility] DRUG/MEDS/BIOL SUB 05/05/2019 PEDRO CELISIS Ot Z93.0 [...] UNSPECIFIED 05/06/2019 FELECIA FORTUNE MD Ot Z79.01 RETIREMENT (CURRENT) USE OF ANTICOAGULANT 05/09/2019 LALITA, NIK Ot D64.9 ANEMIA, UNSPECIFIED 05/09/2019 BERNKEV, NIK Ot F31.9 BIPOLAR DISORDER, UNSPECIFIED 05/09/2019 BERNOT, NIK Ot F41.9 ANXIETY DISORDER, UNSPECIFIED 05/09/2019 BERNKEV, NIK Ot I25.2 OLD MYOCARDIAL INFARCTION 05/09/2019 LALITA, NIK Ot I42.9 CARDIOMYOPATHY, UNSPECIFIED 05/09/2019 BERNOT, NIK Ot K21.9 GASTRO- ESOPHAGEAL REFLUX DISEASE WITHOUT 05/09/2019 LALITA, NIK Ot T82.198A [facility] COMPL OF OTHER CARDIAC ELECTRONIC D 05/09/2019 LALITA NIK Ot 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 ANTICOAGULANT 05/09/2019 BERNKEV, NIK Ot Z79.52 RETIREMENT (CURRENT) USE OF SYSTEMIC STER 05/09/2019 PEDRO CELISIS Ot Z86.79 PERSONAL HISTORY OF OTHER DISEASES OF TH 05/09/2019 PEDRO CELISIS Ot Z87.01 PERSONAL HISTORY OF PNEUMONIA (RECURRENT 05/09/2019 PEDRO CELISIS Ot Z88.8 ALLERGY STATUS TO [facility] DRUG/MEDS/BIOL SUB 05/09/2019 NIK CELIS Ot Z93.0 [...] 05/09/19 20:40 PROBNP FS 745.1 pg/mL <75.0 Serum or plasma creatine kinase MB measurement (enzymatic activity/volume) - 05/09/19 20:40 Serum or plasma creatine kinase MB measurement (enzymatic activity/volume) 1.4 ng/mL <6.6 TROPONIN T - 05/09/19 22:50 TROPONIN T < 6 <=10 Urine drug screening test - 05/09/19 23:23 Urine phencyclidine detection by screening method NEGATIVE NEGATIVE Urine benzodiazepines detection by screening method NEGATIVE NEGATIVE Urine cocaine detection NEGATIVE NEGATIVE Urine amphetamines detection by screening method NEGATIVE NEGATIVE Urine methamphetamine detection by screening method NEGATIVE NEGATIVE Urine cannabinoids detection by screening method NEGATIVE NEGATIVE Urine opiates detection by screening method POSITIVE NEGATIVE Urine barbiturates detection NEGATIVE NEGATIVE Screening urine tricyclic antidepressants detection NEGATIVE NEGATIVE Urine methadone detection by screening method NEGATIVE NEGATIVE Urine oxycodone detection NEGATIVE NEGATIVE Urine propoxyphene detection NEGATIVE NEGATIVE Encounters ACCT No. Visit Date/Time Discharge Status Pt. Type Provider Facility Loc./Unit Complaint [id number] 04/26/2019 12:20:00 04/26/2019 23:59:59 [id number] 04/20/2019 10:00:00 Document Registration [id number] 09/20/2018 09:20:00 Document Registration [id number] 08/10/2018 11:40:00 Document Registration [id number] 05/09/2019 22:47:00 05/10/2019 06:35:00 DIS Inpatient HOLLY MAZARIEGOS, ALEX [facility] 4TH CHEST PAIN;ELEVATED BNP;H/O CARDIAC ARREST [id number] 05/05/2019 18:06:00 05/05/2019 20:26:00 DIS Emergency NIK CELIS [facility] ER PACEMAKER CONCERNS [id number] 04/20/2019 22:38:00 04/20/2019 23:29:00 DIS Emergency VINITA RICHARD DO [facility] ER FS SWOLLEN ARMS, HANDS AND FEET [id number] 04/19/2019 15:50:00 04/19/2019 18:33:00 DIS Emergency LISA MARCELINO APRN [facility] ER HEADACHE [id number] 04/12/2019 20:29:00 04/12/2019 23:19:00 DIS Emergency DEISON CHAMBERLAIN MD [facility] ER FS VOMITING, BACK PAIN, DIZZY [id number] 04/09/2019 00:33:00 04/09/2019 01:40:00 DIS Emergency DELIO ARIZA DO [facility] ER FS LEFT PAIN [id number] 01/06/2019 01:18:00 01/06/2019 03:15:00 DIS Emergency FEDE AMARO MD [facility] ER CP,FALL 2 DAYS AGO [id number] 01/01/2019 15:50:00 01/01/2019 19:25:00 DIS Emergency NIK CELIS [facility] ER SOB/COUGHING UP BLOOD [id number] 11/01/2018 14:51:00 11/01/2018 19:37:00 DIS Emergency RALPH LÓPEZ MD [facility] ER SOB;HEAD PAIN;HIGH BP [id number] 10/23/2018 12:07:00 10/23/2018 23:59:59 CLS Outpatient TONG MAZARIEGOS, FELECIA Diaz [facility] CARD CARDIOMYOPATHY,HTN,MR,SINUS BRADYCARDIA [id number] 08/05/2018 17:39:00 08/05/2018 19:33:00 DIS Emergency NIK CELIS [facility] ER HEAD HURTING,RT ANKLE SWOLLEN [id number] 01/12/2018 10:17:00 01/12/2018 23:59:59 CLS Outpatient BLANCO BERMAN [facility] CARD G93.1 ANOXIC ENCEPHALOPATHY [id number] 10/06/2017 12:00:00 10/06/2017 23:59:59 CLS Preadmit FELECIA FORTUNE MD [facility] CARD CARDIOMYOPATHY I42.9 [id number] 03/03/2016 12:12:00 03/03/2016 23:59:59 CLS Outpatient BLANCO BERMAN [facility] CARD ENCOPELPATH [id number] 02/15/2016 15:59:00 02/15/2016 18:46:00 DIS Emergency OSMAN GONSALES MD [facility] ER DEFIBRILLATOR ISSUES [id number] 12/01/2015 18:08:00 12/01/2015 21:10:00 DIS Emergency RODRIGO HILL DO [facility] ER IRREGULAR HEART RATE [id number] 08/23/2015 20:00:00 08/24/2015 01:08:00 DIS Emergency RALPH LÓPEZ MD [facility] ER DEFIBRILLATOR BEEPING [id number] 08/08/2015 22:55:00 08/09/2015 00:13:00 DIS Emergency ORESTES VELASCO MD [facility] ER L ARM/RIB CAGE PAIN [id number] 07/27/2015 18:45:00 07/29/2015 12:40:00 DIS Inpatient GELLENAPRIL HERNANDEZ DO A [facility] CSD L PNEUMOTHORAX L CHEST WALL PX ELEV LFT'S [id number] 07/23/2015 06:38:00 07/24/2015 11:45:00 DIS Outpatient FELECIA FORTUNE MD [facility] CATH CGF,CARDIOMYOPATHY [id number] 07/15/2015 11:28:00 07/15/2015 23:59:59 CLS Outpatient FELECIA FORTUNE MD [facility] LAB CHF,HTN,TR [id number] 07/11/2015 10:45:00 07/11/2015 23:59:59 CLS Outpatient BLANCO BERMAN [facility] CARD CHF,CARDINUREOPATHY HTN [id number] 03/26/2015 13:23:00 03/31/2015 18:00:00 DIS Inpatient APRIL DOMINIQUE DO [facility] CSD UNK [id number] 03/21/2015 12:45:00 03/26/2015 12:46:00 DIS Inpatient KAUR MAZARIEGOS, LISSET Mcghee [facility] IRF DEBILITY,ENCEPHALOPATHY
--- NOTE | 2019-05-11 13:53 | ED Integumentary General ---
General Chief Complaint: General Problems/Pain Stated Complaint: BLOOD COMING OUT FROM SURGERY SITE Source: patient Exam Limitations: no limitations History of Present Illness Date Seen by Provider: May 11, 2019 Time Seen by Provider: 13:40 Initial Comments The patient presents to the ER with significant others and chief complaint that she has some drainage from her surgical wound where she had a pacemaker placed yesterday at [place], [place]. 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 She has residual slurred speech. She had a pacemaker/AICD placed at that time and up until just the last couple days it has never fired. 2 days ago the pacemaker fired several times so they deactivated it and she went and had it replaced. There was apparently a broken wire as well. The patient said she slept on it wrong she forgot it was there and it started leaking after that. She has no fevers chills nausea chest pain. She denies that it has fired. She does have a history of decreased ejection fraction and congestive heart failure. She's been taking her medications appropriately. Allergies and Home Medications Allergies Coded Allergies: JIA Inhibitors (Verified Allergy, Severe, 05/11/19) ARB-Angiotensin Receptor Antagonist (Verified Allergy, Severe, 05/11/19) baclofen (Unverified Allergy, Unknown, 05/11/19) ON H&P phenazopyridine (Unverified Allergy, Unknown, 05/11/19) ON H&P Home Medications Albuterol Sulfate 8 Gm Hfa.aer.ad, 2 PUFF INH Q6H PRN for SHORTNESS OF BREATH, (Reported) Amlodipine Besylate 10 Mg Tablet, 10 MG PO DAILY, (Reported) Apixaban 5 Mg Tablet, 5 MG PO BID Prescribed by: RALPH DELCID on 11/01/18 1856 Metoprolol Tartrate 50 Mg Tablet, 50 MG PO BID Prescribed by: FELECIA FORTUNE on 07/24/15 0841 Venlafaxine HCl 150 Mg Tab.er.24, 150 MG PO DAILY, (Reported) Patient Home Medication List Home Medication List Reviewed: Yes Review of Systems Review of Systems Constitutional: No chills, No diaphoresis EENTM: No ear discharge, No ear pain Respiratory: No cough, No short of breath Cardiovascular: see HPI; No chest pain, No edema Gastrointestinal: No abdominal pain, No nausea, No vomiting Genitourinary: No discharge, No dysuria Past Utgfymu-Sbbkko-Kfbxwb Hx Patient Social History Alcohol Use: Denies Use Recreational Drug Use: No 2nd Hand Smoke Exposure: No Recent Foreign Travel: No Contact w/Someone Who Travel: No Recent Hopitalizations: No Immunizations Up To Date Tetanus Booster (TDap): Unknown PED Vaccines UTD: Yes Date of Pneumonia Vaccine: Sep 09, 2018 Date of Influenza Vaccine: Aug 19, 2015 Seasonal Allergies Seasonal Allergies: No Past Medical History Surgeries: Yes (DEFIBRILLATOR PLACED 07/23/15. PEG TUBE--REMOVED, uterine ablation) Abdominal, Section, Defibrillator, Gallbladder, Tracheostomy Respiratory: Yes (ARDS-CODED; PNEUMOTHORAX 06/2015) Pneumonia, Chronic Bronchitis Currently Using CPAP: No Currently Using BIPAP: No Cardiac: Yes (PULMONARY EDEMA/CARDIAC CAUSE-R/T ATRIAL THROMBUS; CARDIAC ARREST;V-FIB ) Cardiomyopathy, Endocarditis, Valvular Heart Disease Neurological: Yes (encephalopathy-hypoxia, anoxic brain injury) Reproductive Disorders: No Sexually Transmitted Disease: No Genitourinary: Yes Renal Failure Gastrointestinal: Yes Gastroesophageal Reflux Musculoskeletal: Yes (GAIT DISTURBANCE) Endocrine: No HEENT: No Loss of Vision: Denies Hearing Impairment: Denies Cancer: No Psychosocial: Yes (per med record) Anxiety, Bipolar, Depression Integumentary: No Blood Disorders: Yes (ANEMIA) Family Medical History Patient reports no known family medical history. No Pertinent Family Hx Physical Exam Vital Signs Vital Signs - First Documented 05/11/19 13:39 Temp 97.9 Pulse 85 Resp 14 B/P (MAP) 139/96 (110) Pulse Ox 96 Capillary Refill : General Appearance: no apparent distress, obese HEENT: PERRL/EOMI, pharynx normal Neck: full range of motion, normal inspection Cardiovascular: normal peripheral pulses, regular rate, rhythm Respiratory: no respiratory distress, no accessory muscle use Neurologic/Psychiatric: alert, normal mood/affect, oriented x 3 Skin: other (surgical wound at the site of the pacemaker/AICD with subcuticular stitches keeping the skin approximated and A scant amount of serosanguineous, thin drainage and a small quarter sized amount of drainage on her blouse. No palpable seroma, fluctuance, skin erythema or discharge.) Progress/Results/Core Measures Results/Orders My Orders Orders - ANTONIO CALLEJAS Chest 1 View, Ap/Pa Only (05/11/19 13:45) Vital Signs/I&O 05/11/19 13:39 Temp 97.9 Pulse 85 Resp 14 B/P (MAP) 139/96 (110) Pulse Ox 96 Progress Progress Note : Time: 13:53 Progress Note The patient is on Eliquis and has probably developed a small hematoma that is now draining out of the edge of her surgical wound. We explained to her that the skin should mend over the next 2 days and will probably decrease the drainage at that time. We will put a gauze dressing over it catch the drainage and instructed her to change it as necessary for soiling. We'll obtain a plain film chest x-ray just to ascertain that the pacemaker is in good position and let her follow-up outpatient. Diagnostic Imaging Diagonstic Imaging: Xray Plain Films/CT/US/NM/MRI: chest (1v) Comments NAME: SAL PRIEST [facility] REC#: [id number] PT STATUS: REG ER : 1990 PHYSICIAN: ANTONIO CALLEJAS MD ADMIT DATE: 05/11/19/ER Draft Date of Exam:05/11/19 CHEST 1 VIEW, AP/PA ONLY Indication: Bleeding at defibrillator site Frontal chest obtained at 2:16 hours p.m. Comparison to 05/09/2019 Findings: Pacemaker defibrillator device is unchanged in position compared to the prior study. Althea is no pneumothorax or pleural fluid. There is no pulmonary infiltrate. The heart is mildly enlarged. Impression: Stable appearance of pacemaker defibrillator device. Mild cardiomegaly. No infiltrate, pneumothorax, or pleural fluid. Dictated on workstation # [id number] Dict: 05/11/19 1423 Trans: 05/11/19 1437 [facility] [id number] Interpreted by: GIL CANTU MD Electronically signed by: Reviewed: Reviewed by Me Departure Impression Primary Impression: Seroma after procedure Additional Impressions: Encounter for evaluation of wound Pacemaker Disposition: 01 HOME, SELF-CARE Condition: Stable Departure-Patient Inst. Decision time for Depature: 14:41 Referrals: [facility] (PCP/Family) Primary Care Physician Patient Instructions: HEMATOMA Add. Discharge Instructions: Keep the gauze dressing of the wound dressing to absorb secretions. Changes as often as it becomes soiled. The drainage should slow down after the first 3 days. Follow-up with your scheduled appointments. If you begin to have fevers chills or thick, yellow-white discharge from the wound then you should see a doctor sooner. All discharge instructions reviewed with patient and/or family. Voiced understanding. ANTONIO CALLEJAS May 11, 2019 13:53
[2019-05-11 14:19] VITALS: BP 139/96
--- NOTE | 2019-05-11 14:37 | Diagnostic Imaging Report ---
Indication: Bleeding at defibrillator site Frontal chest obtained at 2:16 hours p.m. Comparison to 05/09/2019 Findings: Pacemaker defibrillator device is unchanged in position compared to the prior study. Althea is no pneumothorax or pleural fluid. There is no pulmonary infiltrate. The heart is mildly enlarged. Impression: Stable appearance of pacemaker defibrillator device. Mild cardiomegaly. No infiltrate, pneumothorax, or pleural fluid. Dictated by: Dictated on workstation # [id number]
== END 2019-05-11 14:48 | disposition home or self-care (01) ==
LOC: EDUNIT# 13:26 → ER 13:28
DX: L76.34 Postprocedural seroma of skin and subcutaneous tissue following other procedure (principal); I25.2 Old myocardial infarction; I42.9 Cardiomyopathy, unspecified; K21.9 Gastro-esophageal reflux disease without esophagitis; F41.9 Anxiety disorder, unspecified; F31.9 Bipolar disorder, unspecified; D64.9 Anemia, unspecified; Z95.0 Presence of cardiac pacemaker; Z95.810 Presence of automatic (implantable) cardiac defibrillator; Z88.8 Allergy status to other drugs, medicaments and biological substances; Z86.79 Personal history of other diseases of the circulatory system; Z79.01 Long term (current) use of anticoagulants; Z93.0 Tracheostomy status; Z98.890 Other specified postprocedural states; Z87.01 Personal history of pneumonia (recurrent); Z87.09 Personal history of other diseases of the respiratory system
CPT/HCPCS: 71045

== ENCOUNTER 2019-05-22 19:10 | Emergency (ER) | payer MEDICAID ==
[~2019-05-22] VITALS: Ht 160 cm; Wt 106.4 kg
--- NOTE | 2019-05-22 19:19 | ED Chest Pain ---
General Chief Complaint: Chest Pain Stated Complaint: CHEST PAIN Source: patient, EMS, RN notes reviewed, old records Exam Limitations: no limitations History of Present Illness Date Seen by Provider: May 22, 2019 Time Seen by Provider: 19:18 Allergies and Home Medications Allergies Coded Allergies: JIA Inhibitors (Verified Allergy, Severe, 05/22/19) ARB-Angiotensin Receptor Antagonist (Verified Allergy, Severe, 05/22/19) baclofen (Unverified Allergy, Unknown, 05/22/19) ON H&P phenazopyridine (Unverified Allergy, Unknown, 05/22/19) ON H&P Home Medications Albuterol Sulfate 8 Gm Hfa.aer.ad, 2 PUFF INH Q6H PRN for SHORTNESS OF BREATH, (Reported) Amlodipine Besylate 10 Mg Tablet, 10 MG PO DAILY, (Reported) Apixaban 5 Mg Tablet, 5 MG PO BID Prescribed by: RALPH DELCID on 11/01/18 1856 Metoprolol Tartrate 50 Mg Tablet, 50 MG PO BID Prescribed by: FELECIA FORTUNE on 07/24/15 0841 Past Ejtvjxg-Afjnbn-Qmkhgl Hx Patient Social History 2nd Hand Smoke Exposure: No Recent Foreign Travel: No Contact w/Someone Who Travel: No Recent Hopitalizations: No Immunizations Up To Date Tetanus Booster (TDap): Unknown PED Vaccines UTD: Yes Date of Pneumonia Vaccine: Sep 09, 2018 Date of Influenza Vaccine: Aug 19, 2015 Seasonal Allergies Seasonal Allergies: No Past Medical History Surgeries: Yes (DEFIBRILLATOR PLACED 05/10/19. PEG TUBE--REMOVED, uterine ablation) Abdominal, Section, Defibrillator, Gallbladder, Tracheostomy Respiratory: Yes (ARDS-CODED; PNEUMOTHORAX 06/2015) Pneumonia, Chronic Bronchitis Currently Using CPAP: No Currently Using BIPAP: No Cardiac: Yes (PULMONARY EDEMA/CARDIAC CAUSE-R/T ATRIAL THROMBUS; CARDIAC ARREST;V-FIB ) Cardiomyopathy, Endocarditis, Hypertension, Valvular Heart Disease Neurological: Yes (encephalopathy-hypoxia, anoxic brain injury) Reproductive Disorders: No Sexually Transmitted Disease: No Genitourinary: Yes Renal Failure Gastrointestinal: Yes Gastroesophageal Reflux Musculoskeletal: Yes (GAIT DISTURBANCE) Endocrine: No HEENT: No Loss of Vision: Denies Hearing Impairment: Denies Cancer: No Psychosocial: Yes (per med record) Anxiety, Bipolar, Depression Integumentary: No Blood Disorders: Yes (ANEMIA) Family Medical History Patient reports no known family medical history. No Pertinent Family Hx Physical Exam Vital Signs Vital Signs - First Documented 05/22/19 19:15 Temp 99.4 Pulse 89 Resp 26 B/P (MAP) 141/93 (109) Pulse Ox 99 O2 Delivery Nasal Cannula O2 Flow Rate 2.0 Capillary Refill : Height, Weight, BMI Height: 5'3.00" Weight: 234lbs. 8.0oz. 106.638825ad; 44.2 BMI Method:Stated Progress/Results/Core Measures Results/Orders Lab Results Laboratory Tests Test 05/22/19 19:13 05/22/19 19:17 05/22/19 21:34 Range/Units White Blood Count 7.6 4.3-11.0 10^3/uL Red Blood Count 4.50 4.35-5.85 10^6/uL Hemoglobin 12.8 11.5-16.0 G/DL Hematocrit 40 35-52 % Mean Corpuscular Volume 88 80-99 FL Mean Corpuscular Hemoglobin 28 25-34 PG Mean Corpuscular Hemoglobin Concent 32 32-36 G/DL Red Cell Distribution Width 15.5 H 10.0-14.5 % Platelet Count 392 130-400 10^3/uL Mean Platelet Volume 8.7 7.4-10.4 FL Neutrophils (%) (Auto) 56 42-75 % Lymphocytes (%) (Auto) 31 12-44 % Monocytes (%) (Auto) 8 0-12 % Eosinophils (%) (Auto) 3 0-10 % Basophils (%) (Auto) 1 0-10 % Neutrophils # (Auto) 4.3 1.8-7.8 X 10^3 Lymphocytes # (Auto) 2.4 1.0-4.0 X 10^3 Monocytes # (Auto) 0.6 0.0-1.0 X 10^3 Eosinophils # (Auto) 0.2 0.0-0.3 10^3/uL Basophils # (Auto) 0.1 0.0-0.1 10^3/uL Prothrombin Time 13.0 12.2-14.7 SEC INR Comment 1.0 0.8-1.4 Activated Partial Thromboplast Time 27 24-35 SEC Sodium Level 140 135-145 MMOL/L Potassium Level 4.3 3.6-5.0 MMOL/L Chloride Level 104 98-107 MMOL/L Carbon Dioxide Level 24 21-32 MMOL/L Anion Gap 12 5-14 MMOL/L Blood Urea Nitrogen 25 H 7-18 MG/DL Creatinine 1.94 H 0.60-1.30 MG/DL Estimat Glomerular Filtration Rate 37 BUN/Creatinine Ratio 13 Glucose Level 126 H 70-105 MG/DL Calcium Level 9.1 8.5-10.1 MG/DL Corrected Calcium 9.3 8.5-10.1 MG/DL Magnesium Level 1.8 1.8-2.4 MG/DL Total Bilirubin 0.2 0.1-1.0 MG/DL Aspartate Amino Transf (AST/SGOT) 21 5-34 U/L Alanine Aminotransferase (ALT/SGPT) 22 0-55 U/L Alkaline Phosphatase 85 40-136 U/L Troponin T < 10 < 10 <=10 NG/L Pro-B-Type Natriuretic Peptide 429.5 H <75.0 PG/ML Total Protein 6.8 6.4-8.2 GM/DL Albumin 3.8 3.2-4.5 GM/DL Lipase 43 8-78 U/L Glucometer 108 70-110 MG/DL My Orders Orders - DELIO ARIZA DO Ekg Tracing (05/22/19 19:21) Cbc With Automated Diff (05/22/19 19:21) Comprehensive Metabolic Panel (05/22/19 19:21) Lipase (05/22/19 19:21) Magnesium (05/22/19 19:21) Protime With Inr (05/22/19 19:21) Partial Thromboplastin Time (05/22/19 19:21) Probnp Fs (05/22/19 19:21) Troponin T (05/22/19 19:21) Chest 1 View Ap/Pa Only (05/22/19 19:24) Aspirin Chewable Tablet (Baby Aspirin Ch (05/22/19 19:30) Fentanyl Injection (Sublimaze Injection (05/22/19 19:30) Dexamethasone Injection (Decadron Inject (05/22/19 20:15) Troponin T (05/22/19 21:04) Medications Given in ED Current Medications Medications Dose Ordered Sig/Mikal Route Start Time Stop Time Status Last Admin Dose Admin Dexamethasone Sodium Phosphate 10 mg ONCE ONCE IV 05/22/19 20:15 6/25/19 20:17 DC 05/22/19 20:26 10 MG Fentanyl Citrate 75 mcg ONCE ONCE IVP 05/22/19 19:30 05/22/19 19:31 DC 05/22/19 19:34 75 MCG Vital Signs/I&O 05/22/19 05/22/19 19:15 19:15 Temp 99.4 Pulse 89 Resp 26 B/P (MAP) 141/93 (109) Pulse Ox 99 O2 Delivery Nasal Cannula O2 Flow Rate 2.0 2.00 Initial ECG Impression Date: May 22, 2019 Initial ECG Impression Time: 19:15 Initial ECG Rate: 90 Initial ECG Rhythm: Normal Sinus Initial ECG Intervals: QT (borderline prolonged) Initial ECG Impression: Nonspecific Changes (LVH; probable LAE) Initial ECG Comparisson: No Previous ECG Available Departure Impression Primary Impression: Chest wall pain Additional Impression: Costochondritis Disposition: 01 HOME, SELF-CARE Condition: Improved Departure-Patient Inst. Decision time for Depature: 22:20 Referrals: [facility] (PCP/Family) Primary Care Physician Patient Instructions: Chest Pain That Is Not Caused by the Heart (DC), Costochondritis (DC) Add. Discharge Instructions: All discharge instructions reviewed with patient and/or family. Voiced understanding. RECOMMEND 1000 mg OF TYLENOL EVERY 6 HOURS NEEDED FOR YOUR PAIN. DO NOT EXCEED 4000 mg OF TYLENOL IN A 24 HOUR PERIOD. DELIO ARIZA DO May 22, 2019 19:19
[2019-05-22] MEDS ORDERED: METOPROLOL TARTRATE 100 MG TAB (19:30)
[2019-05-22] MEDS ORDERED: ASPIRIN 81 MG CHEW (CHILDREN'S ASA) PO ONE (19:30)
[2019-05-22] MEDS ORDERED: fentaNYL INJECTION 100 MCG/2 ML AMP IVP ONE (19:30)
--- NOTE | 2019-05-22 19:30 | NUR ---
in room to reassess patient blood pressure, patient verbalizes pain /10. call light in reach, family at bedside, monitoring maintained. pain reported to Dr Savage
[2019-05-22 19:34] LABS: HEMATOCRIT 40 % (35-52); HEMOGLOBIN 12.8 G/DL (11.5-16.0); LYMPHOCYTES % (AUTO) 31 % (12-44); MEAN CORPUSCULAR HEMOGLOBIN 28 PG (25-34); MEAN CORPUSCULAR HGB CONC 32 G/DL (32-36); MEAN CORPUSCULAR VOLUME 88 FL (80-99); MEAN PLATELET VOLUME 8.7 FL (7.4-10.4); MONOCYTES % (AUTO) 8 % (0-12); NEUTROPHILS % (AUTO) 56 % (42-75); PLATELET COUNT 392 10^3/uL (130-400); RED CELL DISTRIBUTION WIDTH 15.5 % (10.0-14.5); WHITE BLOOD COUNT 7.6 10^3/uL (4.3-11.0)
[2019-05-22 19:35] LABS: BASOPHILS # (AUTO) 0.1 10^3/uL (0.0-0.1); BASOPHILS % (AUTO) 1 % (0-10); EOSINOPHILS # (AUTO) 0.2 10^3/uL (0.0-0.3); EOSINOPHILS % (AUTO) 3 % (0-10); LYMPHOCYTES # (AUTO) 2.4 X 10^3 (1.0-4.0); MONOCYTES # (AUTO) 0.6 X 10^3 (0.0-1.0); NEUTROPHILS # (AUTO) 4.3 X 10^3 (1.8-7.8)
--- NOTE | 2019-05-22 19:50 | NUR ---
reassessment of pain since fentanyl administered verbalizes pain is better and rates at a 2 out of 10 at this time.
[2019-05-22 20:05] LABS: ALANINE AMINOTRANSFERASE 22 U/L (0-55); ALKALINE PHOSPHATASE 85 U/L (40-136); BILIRUBIN,TOTAL 0.2 MG/DL (0.1-1.0); BUN/CREATININE RATIO 13; CALCIUM 9.1 MG/DL (8.5-10.1); CARBON DIOXIDE 24 MMOL/L (21-32); CHLORIDE 104 MMOL/L (98-107); CREATININE SERUM 1.94 MG/DL (0.60-1.30); GFR ESTIMATED 37; GLUCOSE 126 MG/DL (70-105); MAGNESIUM 1.8 MG/DL (1.8-2.4); POTASSIUM 4.3 MMOL/L (3.6-5.0); SODIUM 140 MMOL/L (135-145)
[2019-05-22 20:06] LABS: ALBUMIN 3.8 GM/DL (3.2-4.5); LIPASE 43 U/L (8-78); TOTAL PROTEIN 6.8 GM/DL (6.4-8.2)
--- NOTE | 2019-05-22 20:10 | Diagnostic Imaging Report ---
Patient History: Chest pain radiating to the back. Technique: Single frontal view of the chest Comparison: 05/11/2019 FINDINGS: The lung volumes are normal. No focal consolidation is seen. No large pleural effusion or pneumothorax is seen. The cardiomediastinal silhouette is normal in size and contour. No acute osseous abnormality is seen. The left-sided AICD leads appear stable. IMPRESSION: No acute pulmonary abnormality seen. Dictated by: Dictated on workstation # [id number]
[2019-05-22] MEDS ORDERED: DEXAMETHASONE 10 MG/ML (DECADRON) 1 ML VIAL IV ONE (20:15)
--- NOTE | 2019-05-22 20:15 | NUR ---
in room to check on patient, patient verbalizes pain in her chest wall aggrivated by pushing on chest, noted that patient is repeatably pushing on chest. rating is a 7/10, reported to Dr Savage.
--- NOTE | 2019-05-22 20:45 | NUR ---
in room to reassess pain, patient is resting quietly at this time. verbalizes pain continues however is a little better except when she pushes on this spot on her chest, demonstrated by pushing left chest proximal to sternum. will continue to monitor.
[2019-05-22] MEDS ORDERED: MELOXICAM 15 MG (21:16)
[2019-05-22] MEDS ORDERED: OLANZAPINE 10 MG (21:16)
[2019-05-22] MEDS ORDERED: OXCARBAZEPINE 300 MG (21:16)
[2019-05-22] MEDS ORDERED: CLONIDINE HYDROCHLORIDE 0.2 MG (21:16)
[2019-05-22] MEDS ORDERED: BIOT5000 (21:17)
--- NOTE | 2019-05-22 21:20 | NUR ---
in room to check on patient, patient is resting quietly in dark room with call light in reach. will continue to monitor.
--- NOTE | 2019-05-22 21:34 | NUR ---
in room to redraw troponin, call light in place, daughter at bedside. will continue to monitor
[2019-05-22 22:24] VITALS: BP 139/93
[2019-05-22] MEDS ORDERED: HYDROcodone/APAP 7.5 MG/325 MG (LORTAB, LORCET PLUS) TABLET PO ONE (22:30)
== END 2019-05-22 22:34 | disposition home or self-care (01) ==
LOC: EDUNIT# 19:14 → ER FS 19:15
DX: M94.0 Chondrocostal junction syndrome [Tietze] (principal); J42 Unspecified chronic bronchitis; I10 Essential (primary) hypertension; K21.9 Gastro-esophageal reflux disease without esophagitis; F31.9 Bipolar disorder, unspecified; F41.9 Anxiety disorder, unspecified; Z88.8 Allergy status to other drugs, medicaments and biological substances; Z95.810 Presence of automatic (implantable) cardiac defibrillator; Z93.0 Tracheostomy status; Z87.01 Personal history of pneumonia (recurrent)
CPT/HCPCS: 36415; 71045; 80053; 82962; 83690; 83735; 83880; 84484; 85025; 85610; 85730; 93005; 96374; 96375

== ENCOUNTER 2019-06-04 19:51 | Emergency (ER) | payer MEDICAID ==
[~2019-06-04] VITALS: Ht 160 cm; Wt 106.4 kg
[~2019-06-04 19:51] MED LIST changes: +BIOT5000; +CLONIDINE HYDROCHLORIDE 0.2 MG; +MELOXICAM 15 MG; +METOPROLOL TARTRATE 100 MG TAB; +OLANZAPINE 10 MG; +OXCARBAZEPINE 300 MG
--- OUTSIDE RECORDS SUMMARY | 2019-06-04 19:57 | XMS REPORT | Clinical Summary ---
Author Author [facility] Organization [facility] Address Unknown Phone Unavailable Care Team Providers Care Chucking Lathe Operator Name Role Phone Austin Tobias MD Unavailable Rhona Vazquez MD Unavailable Angie Barros MD Unavailable Marilyn Chapa MD PCP Unavailable Source Comments Some departments are not documenting in the electronic medical record. If you d o not see the information that you expected, contact Release of Information in [facility] Information Management department at [phone] for further assistan ce in locating additional records.[facility] Allergies Comments Active Allergy Reactions Severity Noted [...] Phone Address Plan / Dates Group Medicaid [facility] MEDICAID [facility] xxxxxxxxxxx [id number] [employer] [place] [address] (Home) [place] [address] Advance Directives Patient Manager Fine Explanation Type Date Recorded Advance 12/09/2015 2:22 PM Directive/DPOA
--- OUTSIDE RECORDS SUMMARY | 2019-06-04 20:02 | XMS REPORT | Continuity of Care Document ---
Author Organization Unknown Address Unknown Allergies Active Description Code Type Severity Reaction Onset Reported/Identified Relationship to Patient Clinical Status Yes bacl bacl Moderate N/A 03/21/2015 Yes JIA Inhibitors [id number] Drug Allergy Severe N/A 05/22/2019 Yes ARB-Angiotensin Receptor Antagonist [id number] Drug Allergy Severe N/A 05/22/2019 Yes baclofen [id number] Drug Allergy Unknown N/A 05/22/2019 Yes phenazopyridine [id number] Drug Allergy Unknown N/A 05/22/2019 Medications There is no data. Problems Date [...] 300.00 ANXIETY STATE NOS 07/29/2015 GELLENDER DO, PARIL Guthrie Ot 348.1 ANOXIC BRAIN DAMAGE 07/29/2015 [...] GASTRO- ESOPHAGEAL REFLUX DISEASE WITHOUT 08/05/2018 NIK CLEIS Ot M25.571 PAIN IN RIGHT ANKLE AND [...] ENCOUNTER 08/05/2018 NIK CELIS Ot Z79.01 DIRECTOR CHILD ABUSE THERAPY (CURRENT) USE OF ANTICOAGULANT 08/05/2018 NIK CELIS Ot Z79.51 DIRECTOR CHILD ABUSE THERAPY (CURRENT) USE OF INHALED STERO 08/05/2018 NIK [...] Ot M54.5 LOW BACK PAIN 08/08/2018 NIK ECLIS Ot T20.45XA CORROSION OF UNSPECIFIED DEGREE OF SCALP 08/08/2018 NIK CELIS Ot T32.0 CORROSIONS INVOLVING LESS THAN 10% OF DEREK 08/08/2018 NIK CELIS Ot 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, UNDETERM 08/08/2018 PEDRO CELISIS Ot W19.XXXA UNSPECIFIED FALL, INITIAL ENCOUNTER 08/08/2018 NIK CELIS Ot Z79.01 DIRECTOR CHILD ABUSE THERAPY (CURRENT) USE OF ANTICOAGULANT 08/08/2018 NIK CELIS [...] 10/24/2018 FELECIA FORTUNE MD, Ot Z79.01 DIRECTOR CHILD ABUSE THERAPY (CURRENT) USE OF ANTICOAGULANT 11/01/2018 RALPH LÓPEZ [...] MD Ot Z93.0 TRACHEOSTOMY STATUS 11/03/2018 RALPH LPÓEZ MD Ot Z95.810 PRESENCE OF AUTOMATIC (IMPLANTABLE) [...] ANTICOAGULANT 11/09/2018 RALPH LÓPEZ MD Ot Z79.51 DIRECTOR CHILD ABUSE THERAPY (CURRENT) USE OF INHALED STERO 11/09/2018 RALPH [...] NIK CELIS Ot R05 COUGH 01/01/2019 NIK ECLIS Ot Z79.01 DIRECTOR CHILD ABUSE THERAPY (CURRENT) USE OF ANTICOAGULANT 01/01/2019 NIK CELIS Ot Z79.51 DIRECTOR CHILD ABUSE THERAPY (CURRENT) USE OF INHALED STERO 01/01/2019 NIK CELIS Ot Z87.01 PERSONAL HISTORY OF PNEUMONIA (RECURRENT 01/01/2019 NIK CELIS Ot Z87.448 PERSONAL HISTORY OF OTHER DISEASES OF UR 01/01/2019 NIK CELIS Ot Z87.820 PERSONAL HISTORY OF TRAUMATIC BRAIN INJU 01/01/2019 NIK CELIS Ot Z87.891 PERSONAL HISTORY OF NICOTINE DEPENDENCE 01/01/2019 NIK CELIS Ot Z88.8 ALLERGY STATUS TO [facility] DRUG/MEDS/BIOL SUB 01/01/2019 NIK CELIS Ot [...] IN 01/06/2019 FEDE AMARO MD, Ot Z79.01 DIRECTOR CHILD ABUSE THERAPY (CURRENT) USE OF ANTICOAGULANT 01/06/2019 FEDE AMARO MD, Ot Z79.51 DIRECTOR CHILD ABUSE THERAPY (CURRENT) USE OF INHALED STERO 01/06/2019 FEDE AMARO MD, Ot Z79.52 DIRECTOR CHILD ABUSE THERAPY (CURRENT) USE OF SYSTEMIC STER 01/06/2019 FEDE [...] MD, Ot Z88.8 ALLERGY STATUS TO [facility] DRUG/MEDS/BIOL SUB 01/06/2019 FEDE AMARO MD, [...] OF ANTICOAGULANT 01/07/2019 NIK CELIS Ot Z79.51 DIRECTOR CHILD ABUSE THERAPY (CURRENT) USE OF INHALED STERO 01/07/2019 NIK [...] IN 01/09/2019 FEDE AMARO MD Ot Z79.01 DIRECTOR CHILD ABUSE THERAPY (CURRENT) USE OF ANTICOAGULANT 01/09/2019 FEDE AMARO MD Ot Z79.51 DIRECTOR CHILD ABUSE THERAPY (CURRENT) USE OF INHALED STERO 01/09/2019 FEDE [...] ANTICOAGULANT 04/09/2019 DELIO ARIZA DO, Ot Z79.52 DIRECTOR CHILD ABUSE THERAPY (CURRENT) USE OF SYSTEMIC STER 04/09/2019 DELIO [...] ELBOW 04/12/2019 DELIO ARIZA DO, Ot Z79.01 DIRECTOR CHILD ABUSE THERAPY (CURRENT) USE OF ANTICOAGULANT 04/12/2019 DELIO ARIZA DO, Ot Z79.52 DIRECTOR CHILD ABUSE THERAPY (CURRENT) USE OF SYSTEMIC STER 04/12/2019 DELIO [...] DO, Ot Z88.8 ALLERGY STATUS TO [facility] DRUG/MEDS/BIOL SUB 04/12/2019 DELIO ARIZA DO, Ot Z93.0 TRACHEOSTOMY STATUS 04/12/2019 DELIO ARIZA [...] ANTICOAGULANT 04/12/2019 EDISON CHAMBERLAIN MD, Ot Z79.52 DIRECTOR CHILD ABUSE THERAPY (CURRENT) USE OF SYSTEMIC STER 04/12/2019 EDISON [...] Z88.8 ALLERGY STATUS TO [facility] DRUG/MEDS/BIOL SUB 04/12/2019 EDISON CHAMBERLAIN MD, Ot [...] FATIGUE 04/19/2019 LISA MARCELINO APRN Ot Z79.01 DIRECTOR CHILD ABUSE THERAPY (CURRENT) USE OF ANTICOAGULANT 04/19/2019 LISA MARCELINO [...] MARCELINO APRN Ot Z88.8 ALLERGY STATUS TO [facility] DRUG/MEDS/BIOL SUB 04/19/2019 LISA MARCELINO APRN Ot [...] 04/25/2019 RICHARD DO, VINITA L Ot Z79.01 DIRECTOR CHILD ABUSE THERAPY (CURRENT) USE OF ANTICOAGULANT 04/25/2019 RICHARD DO, [...] DISEASE WITHOUT 05/05/2019 NIK CELIS Ot T82.198A [facility] COMPL OF OTHER CARDIAC ELECTRONIC D 05/05/2019 NIK CELIS Ot Z79.01 RETIREMENT (CURRENT) USE OF ANTICOAGULANT 05/05/2019 PEDRO CELISIS Ot Z79.52 RETIREMENT (CURRENT) USE OF SYSTEMIC STER 05/05/2019 PEDRO CELISIS Ot Z86.79 PERSONAL HISTORY OF OTHER DISEASES OF TH 05/05/2019 PEDRO CELISIS Ot Z87.01 PERSONAL HISTORY OF PNEUMONIA (RECURRENT 05/05/2019 PEDRO CELISIS Ot Z88.8 ALLERGY STATUS TO [facility] DRUG/MEDS/BIOL SUB 05/05/2019 PEDRO CELISIS Ot Z93.0 TRACHEOSTOMY STATUS 05/05/2019 LALITA NIK Ot Z95.810 PRESENCE OF AUTOMATIC (IMPLANTABLE) [...] BLANCO BERMAN Ot R09.2 RESPIRATORY ARREST 05/06/2019 BLANCO BERMAN Ot G93.1 ANOXIC BRAIN [...] NIK Ot F41.9 ANXIETY DISORDER, UNSPECIFIED 05/09/2019 BERNOT, NIK Ot I25.2 OLD MYOCARDIAL INFARCTION 05/09/2019 BERNKEV, NIK Ot I42.9 CARDIOMYOPATHY, UNSPECIFIED 05/09/2019 BERNOT, NIK Ot K21.9 GASTRO- ESOPHAGEAL REFLUX DISEASE WITHOUT 05/09/2019 LALITA NIK Ot T82.198A [facility] COMPL OF OTHER CARDIAC ELECTRONIC D 05/09/2019 LALITA NIK Ot Z79.01 DIRECTOR CHILD ABUSE THERAPY (CURRENT) USE OF ANTICOAGULANT 05/09/2019 BERNKEV, NIK Ot Z79.52 RETIREMENT (CURRENT) USE OF SYSTEMIC STER 05/09/2019 PEDRO CELISIS Ot Z86.79 PERSONAL HISTORY OF OTHER DISEASES OF TH 05/09/2019 PEDRO CELISIS Ot Z87.01 PERSONAL HISTORY OF PNEUMONIA (RECURRENT 05/09/2019 PEDRO CELISIS Ot Z88.8 ALLERGY STATUS TO [facility] DRUG/MEDS/BIOL SUB 05/09/2019 NIK CELIS Ot Z93.0 TRACHEOSTOMY STATUS 05/09/2019 NIK CELIS Ot Z95.810 PRESENCE OF AUTOMATIC (IMPLANTABLE) CARD 05/09/2019 NIK CELIS Ot Z98.890 OTHER SPECIFIED POSTPROCEDURAL STATES 05/10/2019 ALEX BARRERA MD Ot F31.9 BIPOLAR DISORDER, UNSPECIFIED 05/10/2019 ALEX BARRERA MD Ot F41.9 ANXIETY DISORDER, UNSPECIFIED 05/10/2019 ALEX BARRERA MD Ot I42.9 CARDIOMYOPATHY, UNSPECIFIED 05/10/2019 ALEX BARRERA MD Ot N19 UNSPECIFIED KIDNEY FAILURE 05/10/2019 ALEX BARRERA MD Ot T82.118A BREAKDOWN (MECHANICAL) OF CARDIAC ELECTR 05/10/2019 ALEX BARRERA MD Ot Z79.01 DIRECTOR CHILD ABUSE THERAPY (CURRENT) USE OF ANTICOAGULANT 05/10/2019 ALEX BARRERA MD Ot Z79.899 OTHER RETIREMENT (CURRENT) DRUG THERAPY 05/10/2019 ALEX BARRERA MD Ot Z86.718 PERSONAL HISTORY OF OTHER VENOUS THROMBO 05/10/2019 ALEX BARRERA MD Ot Z86.74 PERSONAL HISTORY OF SUDDEN CARDIAC ARRES 05/10/2019 ALEX BARRERA MD Ot Z87.820 PERSONAL HISTORY OF TRAUMATIC BRAIN INJU 05/10/2019 ALEX BARRERA MD Ot Z95.810 PRESENCE OF AUTOMATIC (IMPLANTABLE) CARD 05/10/2019 ALEX BARRERA MD Ot F31.9 BIPOLAR DISORDER, UNSPECIFIED 05/10/2019 ALEX BARRERA MD Ot F41.9 ANXIETY DISORDER, UNSPECIFIED 05/10/2019 ALEX BARRERA MD Ot I42.9 CARDIOMYOPATHY, UNSPECIFIED 05/10/2019 ALEX BARRERA MD Ot N19 UNSPECIFIED KIDNEY FAILURE 05/10/2019 ALEX BARRERA MD Ot T82.118A BREAKDOWN (MECHANICAL) OF CARDIAC ELECTR 05/10/2019 ALEX BARRERA MD Ot Z79.01 RETIREMENT (CURRENT) USE OF ANTICOAGULANT 05/10/2019 ALEX BARRERA MD Ot Z79.899 OTHER RETIREMENT (CURRENT) DRUG THERAPY 05/10/2019 ALEX BARRERA MD Ot Z86.718 PERSONAL HISTORY OF OTHER VENOUS THROMBO 05/10/2019 ALEX BARRERA MD Ot Z86.74 PERSONAL HISTORY OF SUDDEN CARDIAC ARRES 05/10/2019 ALEX BARRERA MD Ot Z87.820 PERSONAL HISTORY OF TRAUMATIC BRAIN INJU 05/10/2019 ALEX BARRERA MD Ot Z95.810 PRESENCE OF AUTOMATIC (IMPLANTABLE) CARD 05/11/2019 LALITA NIK Ot D64.9 ANEMIA, UNSPECIFIED 05/11/2019 PEDRO CELISIS Ot F31.9 BIPOLAR DISORDER, UNSPECIFIED 05/11/2019 PEDRO CELISIS Ot F41.9 ANXIETY DISORDER, UNSPECIFIED 05/11/2019 LALITA NIK Ot I25.2 OLD MYOCARDIAL INFARCTION 05/11/2019 LALITAPEDROIS Ot I42.9 CARDIOMYOPATHY, UNSPECIFIED 05/11/2019 PEDRO CELISIS Ot K21.9 GASTRO- ESOPHAGEAL REFLUX DISEASE WITHOUT 05/11/2019 LALITA NIK Ot T82.198A [facility] COMPL OF OTHER CARDIAC ELECTRONIC D 05/11/2019 NIK CELIS Ot Z79.01 DIRECTOR CHILD ABUSE THERAPY (CURRENT) USE OF ANTICOAGULANT 05/11/2019 PEDRO CELISIS Ot Z79.52 RETIREMENT (CURRENT) USE OF SYSTEMIC STER 05/11/2019 LALITA NIK Ot Z86.79 PERSONAL HISTORY OF OTHER DISEASES OF TH 05/11/2019 PEDRO CELISIS Ot Z87.01 PERSONAL HISTORY OF PNEUMONIA (RECURRENT 05/11/2019 PEDRO CELISIS Ot Z88.8 ALLERGY STATUS TO [facility] DRUG/MEDS/BIOL SUB 05/11/2019 LALITA NIK Ot Z93.0 TRACHEOSTOMY STATUS 05/11/2019 PEDRO CELISIS Ot Z95.810 PRESENCE OF AUTOMATIC (IMPLANTABLE) CARD 05/11/2019 LALITA NIK Ot Z98.890 OTHER SPECIFIED POSTPROCEDURAL STATES 05/11/2019 JÚNIOR MAZARIEGOS, ANTONIO Diaz Ot D64.9 ANEMIA, UNSPECIFIED 05/11/2019 JÚNIOR MAZARIEGOS, ANTONIO Diaz Ot F31.9 BIPOLAR DISORDER, UNSPECIFIED 05/11/2019 ANTONIO CALLEJAS MD Ot F41.9 ANXIETY DISORDER, UNSPECIFIED 05/11/2019 JÚNIOR MAZARIEGOS, ANTONIO J Ot I25.2 OLD MYOCARDIAL INFARCTION 05/11/2019 JÚNIOR MAZARIEGOS, ANTONIO Diaz Ot I42.9 CARDIOMYOPATHY, UNSPECIFIED 05/11/2019 ANTONIO CALLEJAS MD Ot K21.9 GASTRO-ESOPHAGEAL REFLUX DISEASE WITHOUT 05/11/2019 ANTONIO CALLEJAS MD Ot L76.34 POSTPROC SEROMA OF SKIN, SUBCU FOLLOWING 05/11/2019 ANTONIO CALLEJAS MD Ot Z79.01 RETIREMENT (CURRENT) USE OF ANTICOAGULANT 05/11/2019 ANTONIO CALLEJAS MD Ot Z86.79 PERSONAL HISTORY OF OTHER DISEASES OF TH 05/11/2019 ANTONIO CALLEJAS MD Ot Z87.01 PERSONAL HISTORY OF PNEUMONIA (RECURRENT 05/11/2019 ANTONIO CALLEJAS MD Ot Z87.09 PERSONAL HISTORY OF OTHER DISEASES OF 05/11/2019 ANTONIO CALLEJAS MD Ot Z88.8 ALLERGY STATUS TO [facility] DRUG/MEDS/BIOL SUB 05/11/2019 ANTONIO CALLEJAS MD Ot Z93.0 TRACHEOSTOMY STATUS 05/11/2019 ANTONIO CALLEJAS MD Ot Z95.0 PRESENCE OF CARDIAC PACEMAKER 05/11/2019 ANTONIO CALLEJAS MD Ot Z95.810 PRESENCE OF AUTOMATIC (IMPLANTABLE) CARD 05/11/2019 ANTONIO CALLEJAS MD Ot Z98.890 OTHER SPECIFIED POSTPROCEDURAL STATES 05/14/2019 ANTONIO CALLEJAS MD Ot D64.9 ANEMIA, UNSPECIFIED 05/14/2019 ANTONIO CALLEJAS MD Ot F31.9 BIPOLAR DISORDER, UNSPECIFIED 05/14/2019 ANTONIO CALLEJAS MD Ot F41.9 ANXIETY DISORDER, UNSPECIFIED 05/14/2019 ANTONIO CALLEJAS MD Ot I25.2 OLD MYOCARDIAL INFARCTION 05/14/2019 ANTONIO CALLEJAS MD Ot I42.9 CARDIOMYOPATHY, UNSPECIFIED 05/14/2019 ANTONIO CALLEJAS MD Ot K21.9 GASTRO-ESOPHAGEAL REFLUX DISEASE WITHOUT 05/14/2019 ANTONIO CALLEJAS MD Ot L76.34 POSTPROC SEROMA OF SKIN, SUBCU FOLLOWING 05/14/2019 ANTONIO CALLEJAS MD Ot Z79.01 RETIREMENT (CURRENT) USE OF ANTICOAGULANT 05/14/2019 ANTONIO CALLEJAS MD Ot Z86.79 PERSONAL HISTORY OF OTHER DISEASES OF 05/14/2019 ANTONIO CALLEJAS MD Ot Z87.01 PERSONAL HISTORY OF PNEUMONIA (RECURRENT 05/14/2019 ANTONIO CALLEJAS MD Ot Z87.09 PERSONAL HISTORY OF OTHER DISEASES OF TH 05/14/2019 ANTONIO CALLEJAS MD, Ot Z88.8 ALLERGY STATUS TO [facility] DRUG/MEDS/BIOL SUB 05/14/2019 ANTONIO CALLEJAS MD, Ot Z93.0 TRACHEOSTOMY STATUS 05/14/2019 ANTONIO CALLEJAS MD, Ot Z95.0 PRESENCE OF CARDIAC PACEMAKER 05/14/2019 ANTONIO CALLEJAS MD Ot Z95.810 PRESENCE OF AUTOMATIC (IMPLANTABLE) CARD 05/14/2019 ANTONIO CALLEJAS MD, Ot Z98.890 OTHER SPECIFIED POSTPROCEDURAL STATES 05/24/2019 DELIO ARIZA DO, Ot F31.9 BIPOLAR DISORDER, UNSPECIFIED 05/24/2019 DELIO ARIZA DO, Ot F41.9 ANXIETY DISORDER, UNSPECIFIED 05/24/2019 DELIO ARIZA DO, Ot I10 ESSENTIAL (PRIMARY) HYPERTENSION 05/24/2019 DELIO ARIZA DO, Ot J42 UNSPECIFIED CHRONIC BRONCHITIS 05/24/2019 DELIO ARIZA DO, Ot K21.9 GASTRO-ESOPHAGEAL REFLUX DISEASE WITHOUT 05/24/2019 DELIO ARIZA DO, Ot M94.0 CHONDROCOSTAL JUNCTION SYNDROME [TIETZE] 05/24/2019 DELIO ARIZA DO, Ot R07.9 CHEST PAIN, UNSPECIFIED 05/24/2019 DELIO ARIZA DO, Ot Z87.01 PERSONAL HISTORY OF PNEUMONIA (RECURRENT 05/24/2019 DELIO ARIZA DO, Ot Z88.8 ALLERGY STATUS TO [facility] DRUG/MEDS/BIOL SUB 05/24/2019 DELIO ARIZA DO, Ot Z93.0 TRACHEOSTOMY STATUS 05/24/2019 DELIO ARIZA DO, Ot Z95.810 PRESENCE OF AUTOMATIC (IMPLANTABLE) CARD Procedures Code Description Performed By Performed On [...] detection in urine sediment by light microscopy 1025 NRG Crystals detection in urine sediment by [...] 7-25 CREATININE 1.63 mg/dL 0.50-1.10 eGFR NON-AFR. CYMRO 42 mL/min/1.73m2 > OR=60 eGFR 48 mL/min/1.73m2 [...] 7-25 CREATININE 1.82 mg/dL 0.50-1.10 eGFR NON-AFR. CYMRO 37 mL/min/1.73m2 > OR=60 eGFR 42 mL/min/1.73m2 [...] automated white blood cell (WBC) differential - 05/22/19 19:13 Blood leukocytes automated count (number/volume) 7.6 10*3/uL 4.3-11.0 Blood erythrocytes automated count (number/volume) 4.50 10*6/uL 4.35-5.85 Venous blood hemoglobin measurement (mass/volume) 12.8 g/dL 11.5-16.0 Blood hematocrit (volume fraction) 40 % 35-52 Automated erythrocyte mean corpuscular volume 88 [foz_us] 80-99 Automated erythrocyte mean corpuscular hemoglobin (mass per erythrocyte) 28 pg 25-34 Automated erythrocyte mean corpuscular hemoglobin concentration measurement (mass/volume) 32 g/dL 32-36 Automated erythrocyte distribution width ratio 15.5 % 10.0- 14.5 Automated blood platelet count (count/volume) 392 10*3/uL 130-400 Automated blood platelet mean volume measurement 8.7 [foz_us] 7.4-10.4 Automated blood neutrophils/100 leukocytes 56 % 42-75 Automated blood lymphocytes/100 leukocytes 31 % 12-44 Blood monocytes/100 leukocytes 8 % 0-12 Automated blood eosinophils/100 leukocytes 3 % 0-10 Automated blood basophils/100 leukocytes 1 % 0-10 Blood neutrophils automated count (number/volume) 4.3 10*3 1.8-7.8 Blood lymphocytes automated count (number/volume) 2.4 10*3 1.0-4.0 Blood monocytes automated count (number/volume) 0.6 10*3 0.0- 1.0 Automated eosinophil count 0.2 10*3/uL 0.0-0.3 Automated blood basophil count (count/volume) 0.1 10*3/uL 0.0-0.1 PT panel in platelet poor plasma by coagulation assay - 05/22/19 19:13 Prothrombin time (PT) in platelet poor plasma by coagulation assay 13.0 s 12.2-14.7 INR in platelet poor plasma or blood by coagulation assay 1.0 0.8-1.4 Activated partial thromboplastin time (aPTT) in platelet poor plasma bycoagulation assay - 05/22/19 19:13 Activated partial thromboplastin time (aPTT) in platelet poor plasma bycoagulation assay 27 s 24-35 Comprehensive metabolic panel - 05/22/19 19:13 Serum or plasma sodium measurement (moles/volume) 140 mmol/L 135-145 Serum or plasma potassium measurement (moles/volume) 4.3 mmol/L 3.6-5.0 Serum or plasma chloride measurement (moles/volume) 104 mmol/L 98-107 Carbon dioxide 24 mmol/L 21-32 Serum or plasma anion gap determination (moles/volume) 12 mmol/L 5-14 Serum or plasma urea nitrogen measurement (mass/volume) 25 mg/dL 7-18 Serum or plasma creatinine measurement (mass/volume) 1.94 mg/dL 0.60-1.30 Serum or plasma urea nitrogen/creatinine mass ratio 13 NRG Serum or plasma creatinine measurement with calculation of estimated glomerular filtration rate 37 NRG Serum or plasma glucose measurement (mass/volume) 126 mg/dL 70-105 Serum or plasma calcium measurement (mass/volume) 9.1 mg/dL 8.5-10.1 Serum or plasma total bilirubin measurement (mass/volume) 0.2 mg/dL 0.1-1.0 Serum or plasma alkaline phosphatase measurement (enzymatic activity/volume) 85 U/L 40-136 Serum or plasma aspartate aminotransferase measurement (enzymatic activity/volume) 21 U/L 5-34 Serum or plasma alanine aminotransferase measurement (enzymatic activity/volume) 22 U/L 0-55 Serum or plasma protein measurement (mass/volume) 6.8 g/dL 6.4-8.2 Serum or plasma albumin measurement (mass/volume) 3.8 g/dL 3.2-4.5 CALCIUM CORRECTED 9.3 mg/dL 8.5-10.1 Magnesium - 05/22/19 19:13 Magnesium 1.8 mg/dL 1.8-2.4 TROPONIN T - 05/22/19 19:13 TROPONIN T < 10 <=10 PROBNP FS - 05/22/19 19:13 PROBNP FS 429.5 pg/mL <75.0 Lipase - 05/22/19 19:13 Lipase 43 U/L 8-78 Capillary blood glucose measurement by glucometer (mass/volume) - 05/22/19 19:17 Capillary blood glucose measurement by glucometer (mass/volume) 108 mg/dL 70-110 TROPONIN T - 05/22/19 21:34 TROPONIN T < 10 <=10 Encounters ACCT No. Visit Date/Time Discharge Status Pt. Type Provider Facility Loc./Unit Complaint [id number] 06/02/2019 15:30:00 ACT Outpatient ONEIL MAZARIEGOS, MOUNIKA ROMERO [facility] [id number] 04/20/2019 10:00:00 Document Registration [id number] 09/20/2018 09:20:00 Document Registration [id number] 08/10/2018 11:40:00 Document Registration [id number] 05/22/2019 19:15:00 05/22/2019 22:34:00 DIS Outpatient DELIO ARIZA DO [facility] ER FS CHEST PAIN [id number] 05/11/2019 13:28:00 05/11/2019 14:48:00 DIS Emergency ANTONIO CALLEJAS MD [facility] ER BLOOD COMING OUT FROM SURGERY SITE [id number] 05/09/2019 19:36:00 05/10/2019 06:23:00 DIS Outpatient HOLLY MAZARIEGOS, ALEX Griffith [facility] 4TH CHEST PAIN;ELEVATED BNP;H/O CARDIAC ARREST [id number] 05/05/2019 18:06:00 05/05/2019 20:26:00 DIS Emergency NIK CELIS [facility] ER PACEMAKER CONCERNS [id number] 04/20/2019 22:38:00 04/20/2019 23:29:00 DIS Emergency VINITA RICHARD DO [facility] ER FS SWOLLEN ARMS, HANDS AND FEET [id number] 04/19/2019 15:50:00 04/19/2019 18:33:00 DIS Emergency LISA MARCELINO APRN [facility] ER HEADACHE [id number] 04/12/2019 20:29:00 04/12/2019 23:19:00 DIS Emergency BULMARO MAZARIEGOS, EDISON Mcghee [facility] ER FS VOMITING, BACK PAIN, DIZZY [id number] 04/09/2019 00:33:00 04/09/2019 01:40:00 DIS Emergency DELIO ARIZA DO [facility] ER FS LEFT PAIN [id number] 01/06/2019 01:18:00 01/06/2019 03:15:00 DIS Emergency PREM MAZARIEGOS, FEDE Burgos [facility] ER CP,FALL 2 DAYS AGO [id number] 01/01/2019 15:50:00 01/01/2019 19:25:00 DIS Emergency NIK CELIS [facility] ER SOB/COUGHING UP BLOOD [id number] 11/01/2018 14:51:00 11/01/2018 19:37:00 DIS Emergency MARIBEL MAZARIEGOS, RALPH Mcelroy [facility] ER SOB;HEAD PAIN;HIGH BP [id number] 10/23/2018 12:07:00 10/23/2018 23:59:59 CLS Outpatient FELECIA FORTUNE MD [facility] CARD CARDIOMYOPATHY,HTN,MR,SINUS BRADYCARDIA [id number] 08/05/2018 17:39:00 08/05/2018 19:33:00 DIS Emergency NIK CELIS [facility] ER HEAD HURTING,RT ANKLE SWOLLEN [id number] 01/12/2018 10:17:00 01/12/2018 23:59:59 CLS Outpatient BLANCO BERMAN [facility] CARD G93.1 ANOXIC ENCEPHALOPATHY [id number] 10/06/2017 12:00:00 10/06/2017 23:59:59 CLS Preadmit FELECIA FORTUNE MD [facility] CARD CARDIOMYOPATHY I42.9 [id number] 03/03/2016 12:12:00 03/03/2016 23:59:59 CLS Outpatient BLANCO BERMAN [facility] CARD ENCOPELPATH [id number] 02/15/2016 15:59:00 02/15/2016 18:46:00 DIS Emergency DRU MAZARIEGOS, OSMAN Mohan [facility] ER DEFIBRILLATOR ISSUES [id number] 12/01/2015 18:08:00 12/01/2015 21:10:00 DIS Emergency LIZ TINSLEY RODRIGO Kimberlee [facility] ER IRREGULAR HEART RATE [id number] 08/23/2015 20:00:00 08/24/2015 01:08:00 DIS Emergency RALPH LÓPEZ MD [facility] ER DEFIBRILLATOR BEEPING [id number] 08/08/2015 22:55:00 08/09/2015 00:13:00 DIS Emergency ORESTES VELASCO MD [facility] ER L ARM/RIB CAGE PAIN [id number] 07/27/2015 18:45:00 07/29/2015 12:40:00 DIS Inpatient APRIL DOMINIQUE DO [facility] CSD L PNEUMOTHORAX L CHEST WALL PX ELEV LFT'S [id number] 07/23/2015 06:38:00 07/24/2015 11:45:00 DIS Outpatient FELECIA FORTUNE MD [facility] CATH CGF,CARDIOMYOPATHY [id number] 07/15/2015 11:28:00 07/15/2015 23:59:59 CLS Outpatient FELECIA FORTUNE MD [facility] LAB CHF,HTN,TR [id number] 07/11/2015 10:45:00 07/11/2015 23:59:59 CLS Outpatient BLANCO BERMAN [facility] CARD CHF,CARDINUREOPATHY HTN [id number] 03/26/2015 13:23:00 03/31/2015 18:00:00 DIS Inpatient APRIL DOMINIQUE DO [facility] CSD UNK [id number] 03/21/2015 12:45:00 03/26/2015 12:46:00 DIS Inpatient LISSET DIETRICH MD [facility] IRF DEBILITY,ENCEPHALOPATHY [id number] 06/04/2019 19:53:00 ACT Emergency MARIBEL MAZARIEGOS, RALPH Mcelroy [facility] ER POST PACE MAKER OP/L SHOULDER PAIN/RACING HEART
[2019-06-04 20:21] LABS: BASOPHILS % (AUTO) 1 % (0-10); EOSINOPHILS # (AUTO) 0.2 10^3/uL (0.0-0.3); EOSINOPHILS % (AUTO) 2 % (0-10); HEMATOCRIT 40 % (35-52); HEMOGLOBIN 13.2 G/DL (11.5-16.0); LYMPHOCYTES # (AUTO) 2.9 X 10^3 (1.0-4.0); LYMPHOCYTES % (AUTO) 34 % (12-44); MEAN CORPUSCULAR HEMOGLOBIN 28 PG (25-34); MEAN CORPUSCULAR HGB CONC 33 G/DL (32-36); MEAN CORPUSCULAR VOLUME 85 FL (80-99); MEAN PLATELET VOLUME 8.8 FL (7.4-10.4); MONOCYTES # (AUTO) 0.7 X 10^3 (0.0-1.0); MONOCYTES % (AUTO) 8 % (0-12); NEUTROPHILS # (AUTO) 4.9 X 10^3 (1.8-7.8); NEUTROPHILS % (AUTO) 56 % (42-75); PLATELET COUNT 275 10^3/uL (130-400); WHITE BLOOD COUNT 8.7 10^3/uL (4.3-11.0)
[2019-06-04 20:37] LABS: CALCIUM 9.7 MG/DL (8.5-10.1); CREATININE SERUM 1.84 MG/DL (0.60-1.30); MAGNESIUM 1.8 MG/DL (1.8-2.4); POTASSIUM 4.4 MMOL/L (3.6-5.0)
--- NOTE | 2019-06-04 21:10 | Diagnostic Imaging Report ---
INDICATION: Pacemaker replaced on 05/10/2019. Complains of racing heart and left shoulder pain. FINDINGS: A portable upright view of the chest demonstrates stable cardiomegaly with cardiac defibrillator in place. The lungs are clear. The vascularity is normal. There are no pleural effusions. IMPRESSION: There is cardiomegaly and a cardiac defibrillator with no acute findings. Dictated by: Dictated on workstation # [id number]
--- NOTE | 2019-06-04 21:58 | ED Chest Pain ---
General Chief Complaint: Chest Pain Stated Complaint: POST PACE MAKER OP/L SHOULDER PAIN/RACING HEART Nursing Triage Note: PT STATES SHE GOT A CARDIAC PACEMAKER REPLACED ON April. PT STATES FEELING LIKE SHE HAS A "RACING HEART" AND LEFT SHOULDER PAIN SINCE THE PACEMAKER PLACEMENT. Nursing Sepsis Screen: No Definite Risk Source: patient Exam Limitations: no limitations History of Present Illness Date Seen by Provider: Jun 04, 2019 Time Seen by Provider: 19:59 Initial Comments This 28-year-old young lady presents to the emergency room with pain in the left chest radiating through toward her back. She has developed this pain since having her pacemaker defibrillator replaced on [facility] 10[facility] It is a [employer] device. She had palpitations and fluttering in the chest at night. She states she was told previously by providers that these symptoms could be related to PTSD. She has not been able to sleep. Patient mentioned later in the encounter that she had been out of her amitriptyline and got it replaced today. She took a dose shortly before coming to the ER. She also reports there have been some drainage from the medial aspect of the incisio n. That has since stopped. Allergies and Home Medications Allergies Coded Allergies: JIA Inhibitors (Verified Allergy, Severe, 05/22/19) ARB-Angiotensin Receptor Antagonist (Verified Allergy, Severe, 05/22/19) baclofen (Unverified Allergy, Unknown, 05/22/19) ON H&P phenazopyridine (Unverified Allergy, Unknown, 05/22/19) ON H&P Home Medications Albuterol Sulfate 8 Gm Hfa.aer.ad, 2 PUFF INH Q6H PRN for SHORTNESS OF BREATH, (Reported) Amlodipine Besylate 10 Mg Tablet, 10 MG PO DAILY, (Reported) Apixaban 5 Mg Tablet, 5 MG PO BID Prescribed by: RALPH DELCID on 11/01/18 1459 Metoprolol Tartrate 50 Mg Tablet, 50 MG PO BID Prescribed by: FELECIA FORTUNE on 07/24/15 0887 Patient Home Medication List Home Medication List Reviewed: Yes Review of Systems Review of Systems Constitutional: no symptoms reported EENTM: No Symptoms Reported Respiratory: No Symptoms Reported Cardiovascular: See HPI Gastrointestinal: No Symptoms Reported Genitourinary: No Symptoms Reported Musculoskeletal: no symptoms reported Skin: see HPI Psychiatric/Neurological: See HPI Endocrine: No Symptoms Reported Hematologic/Lymphatic: No Symptoms Reported Past Tbowhmf-Jsghsy-Edcttd Hx Patient Social History Alcohol Use: Denies Use Recreational Drug Use: No 2nd Hand Smoke Exposure: No Recent Foreign Travel: No Contact w/Someone Who Travel: No Recent Infectious Disease Expo: No Recent Hopitalizations: No Physical Abuse: No Sexual Abuse: No Mistreated: No Fear: No Immunizations Up To Date Tetanus Booster (TDap): Unknown PED Vaccines UTD: Yes Date of Pneumonia Vaccine: Sep 09, 2018 Date of Influenza Vaccine: Aug 19, 2015 Seasonal Allergies Seasonal Allergies: No Past Medical History Surgeries: Yes (DEFIBRILLATOR PLACED 05/10/19. PEG TUBE--REMOVED, uterine ablation) Abdominal, Section, Defibrillator, Gallbladder, Tracheostomy Respiratory: Yes (ARDS-CODED; PNEUMOTHORAX 06/2015) Pneumonia, Chronic Bronchitis Currently Using CPAP: No Currently Using BIPAP: No Cardiac: Yes (PULMONARY EDEMA/CARDIAC CAUSE-R/T ATRIAL THROMBUS; CARDIAC ARREST;V-FIB ) Cardiomyopathy, Endocarditis, Hypertension, Valvular Heart Disease Neurological: Yes (encephalopathy-hypoxia, anoxic brain injury) Reproductive Disorders: No Sexually Transmitted Disease: No Genitourinary: Yes Renal Failure Gastrointestinal: Yes Gastroesophageal Reflux Musculoskeletal: Yes (GAIT DISTURBANCE) Endocrine: No HEENT: No Loss of Vision: Denies Hearing Impairment: Denies Cancer: No Psychosocial: Yes (per med record) Anxiety, Bipolar, Depression Integumentary: No Blood Disorders: Yes (ANEMIA) Family Medical History Patient reports no known family medical history. No Pertinent Family Hx Physical Exam Vital Signs Vital Signs - First Documented 06/04/19 06/04/19 06/04/19 20:17 20:24 22:02 Temp 97.6 Pulse 101 Resp 26 B/P (MAP) 148/114 (125) Pulse Ox 97 O2 Delivery Room Air Capillary Refill : Less Than 3 Seconds Height, Weight, BMI Height: 5'3.00" Weight: 234lbs. 8.0oz. [id number]; 44.2 BMI Method:Stated General Appearance: No Apparent Distress, WD/WN, Obese HEENT: PERRL/EOMI, Normal ENT Inspection Neck: Normal Inspection Respiratory: Lungs Clear, Normal Breath Sounds, No Accessory Muscle Use, No Respiratory Distress Cardiovascular: Regular Rate, Rhythm, No Edema, No Murmur Gastrointestinal: Normal Bowel Sounds, Non Tender, Soft Extremity: Normal Inspection, No Pedal Edema Neurologic/Psychiatric: Alert, Oriented x3, Other (Chronic deficits from an anoxic brain injury, unchanged) Skin: Normal Color, Warm/Dry, Other (Incision appears clean, dry, and intact without any evidence of inflammation, fluctuance, or drainage) Progress/Results/Core Measures Results/Orders Lab Results Laboratory Tests Test 06/04/19 20:16 06/04/19 20:49 Range/Units White Blood Count 8.7 4.3-11.0 10^3/uL Red Blood Count 4.71 4.35-5.85 10^6/uL Hemoglobin 13.2 11.5-16.0 G/DL Hematocrit 40 35-52 % Mean Corpuscular Volume 85 80-99 FL Mean Corpuscular Hemoglobin 28 25-34 PG Mean Corpuscular Hemoglobin Concent 33 32-36 G/DL Red Cell Distribution Width 16.0 H 10.0-14.5 % Platelet Count 275 130-400 10^3/uL Mean Platelet Volume 8.8 7.4-10.4 FL Neutrophils (%) (Auto) 56 42-75 % Lymphocytes (%) (Auto) 34 12-44 % Monocytes (%) (Auto) 8 0-12 % Eosinophils (%) (Auto) 2 0-10 % Basophils (%) (Auto) 1 0-10 % Neutrophils # (Auto) 4.9 1.8-7.8 X 10^3 Lymphocytes # (Auto) 2.9 1.0-4.0 X 10^3 Monocytes # (Auto) 0.7 0.0-1.0 X 10^3 Eosinophils # (Auto) 0.2 0.0-0.3 10^3/uL Basophils # (Auto) 0.0 0.0-0.1 10^3/uL Sodium Level 138 135-145 MMOL/L Potassium Level 4.4 3.6-5.0 MMOL/L Chloride Level 103 98-107 MMOL/L Carbon Dioxide Level 24 21-32 MMOL/L Anion Gap 11 5-14 MMOL/L Blood Urea Nitrogen 17 7-18 MG/DL Creatinine 1.84 H 0.60-1.30 MG/DL Estimat Glomerular Filtration Rate 39 BUN/Creatinine Ratio 9 Glucose Level 101 70-105 MG/DL Calcium Level 9.7 8.5-10.1 MG/DL Magnesium Level 1.8 1.8-2.4 MG/DL Troponin I < 0.028 <0.028 NG/ML C-Reactive Protein High Sensitivity 1.47 H 0.00-0.50 MG/DL Serum Test, Qualitative NEGATIVE NEGATIVE D-Dimer 1.74 H 0.00-0.49 UG/ML My Orders Orders - RALPH LÓPEZ MD Basic Metabolic Panel (06/04/19 19:59) Cbc With Automated Diff (06/04/19 19:59) Magnesium (06/04/19 19:59) Ed Iv/Invasive Line Start (06/04/19 19:59) Ekg Tracing (06/04/19 19:59) Monitor-Rhythm Ecg Trace Only (06/04/19 19:59) Hcg,Qualitative Serum (06/04/19 19:59) Hs C Reactive Protein (06/04/19 20:28) Fibrin Degradation Products (06/04/19 20:28) Troponin I (06/04/19 20:28) Chest 1 View, Ap/Pa Only (06/04/19 20:54) Vital Signs/I&O 06/04/19 06/04/19 06/04/19 20:17 20:24 22:02 Temp 97.6 97.6 Pulse 101 80 Resp 26 26 B/P (MAP) 148/114 (125) 140/97 (111) Pulse Ox 97 O2 Delivery Room Air Room Air Blood Pressure Mean: 125 Progress Progress Note : Progress Note During the course of her ER stay patient states that she has been out of her amitriptyline. She just got it filled today and taken shortly before coming to the ER. This likely explains her anxiousness and inability to sleep. We interrogated her pacemaker with [employer]. There were no adverse arrhythmias during the night the past 2 nights. A d-dimer was ordered before it was realized patient is presently anticoagulated. Patient has not missed any doses of her anticoagulation so pulmonary embolism was felt very unlikely. CT was not performed due to renal function and low probability of pulmonary embolism given patient's continuous use of anticoagulants. Patient was ultimately dismissed home with instructions to follow-up with her cardiology team. Initial ECG Impression Date: Jun 04, 2019 Initial ECG Impression Time: 20:02 Initial ECG Rate: 102 Initial ECG Rhythm: S.Tach Comment Sinus tachycardia with no ST elevation or depression. Borderline QT interval. Probable LVH. Departure Impression Primary Impression: Atypical chest pain Additional Impressions: Insomnia Qualified Codes: G47.00 - Insomnia, unspecified Anxiety Disposition: 01 HOME, SELF-CARE Condition: Improved Departure-Patient Inst. Decision time for Depature: 21:56 Referrals: [facility] (PCP/Family) Primary Care Physician Patient Instructions: Chest Pain That Is Not Caused by the Heart (DC) Add. Discharge Instructions: Push plenty of clear liquids to stay well-hydrated. You may continue amitriptyline as previously prescribed to help you sleep. You may also try Unisom [id number] to help you sleep. Contact your primary care provider and medical liaison office tomorrow morning for follow-up. Return to the emergency room if you have worsening symptoms. You may take Tylenol (acetaminophen) up to 1000 mg every 6 hours as needed for pain. All discharge instructions reviewed with patient and/or family. Voiced understanding. Copy Copies To 1: FELECIA FORTUNE MD Copies To 2: LAURA FLORES JOSHUA T MD Jun 04, 2019 21:58
[2019-06-04 22:02] VITALS: BP 140/97
== END 2019-06-04 22:04 | disposition home or self-care (01) ==
LOC: EDUNIT# 19:51 → ER 19:53
DX: F41.9 Anxiety disorder, unspecified (principal); G47.00 Insomnia, unspecified; R07.89 Other chest pain; J42 Unspecified chronic bronchitis; I10 Essential (primary) hypertension; I42.9 Cardiomyopathy, unspecified; K21.9 Gastro-esophageal reflux disease without esophagitis; F31.9 Bipolar disorder, unspecified; Z87.01 Personal history of pneumonia (recurrent); Z95.810 Presence of automatic (implantable) cardiac defibrillator; Z88.8 Allergy status to other drugs, medicaments and biological substances; Z88.5 Allergy status to narcotic agent; Z93.0 Tracheostomy status
CPT/HCPCS: 36415; 71045; 80048; 83735; 84484; 84703; 85025; 85379; 86141; 93005; 93041

== ENCOUNTER → 2019-07-09 | Outpatient (CLI) | payer MEDICAID ==
--- NOTE | 2019-07-09 09:18 | Diagnostic Imaging Report ---
INDICATION: Left knee pain and swelling. Time of exam 9:05 a.m. FINDINGS: Three views of the left knee were obtained. Alignment is normal. Joint spaces are well maintained. Articular surfaces are smooth. No fracture, dislocation or effusion is seen. IMPRESSION: No acute bony abnormality is detected. Dictated by: Dictated on workstation # [id number]
== END ==
LOC: RAD 08:56
PROVIDERS: ATTEND Nurse Practitioner
DX: M25.462 Effusion, left knee (principal)
CPT/HCPCS: 73562

== ENCOUNTER 2019-07-28 18:04 | Emergency (ER) | payer MEDICAID ==
[~2019-07-28] VITALS: Ht 160 cm; Wt 110.4 kg
[2019-07-28] MEDS ORDERED: PROMETHAZINE INJ 25 MG/ML (PHENERGAN) AMP IM STA (18:38)
[2019-07-28] MEDS ORDERED: diphenhydrAMINE 50 MG/ML INJ (BENADRYL) IM STA (18:38)
[2019-07-28] MEDS ORDERED: DEXAMETHASONE 10 MG/ML (DECADRON) 1 ML VIAL IM ONE (18:45)
[2019-07-28] MEDS ORDERED: cloNIDine 0.1 MG (CATAPRES) TAB PO ONE (19:00)
--- NOTE | 2019-07-28 19:10 | ED Headache ---
General Chief Complaint: Head/Cervical Problems Stated Complaint: HEADACHE Source: patient, family Exam Limitations: no limitations History of Present Illness Date Seen by Provider: Jul 28, 2019 Time Seen by Provider: 18:12 Initial Comments Here with report of frontal headache that has been going on today. She tried Tylenol 1000 mg by mouth and ibuprofen 800 mg by mouth about 2 hours ago and headache is not resolved. She does have history of headache disorder. She reports taking her meds as directed. Does have history of heart problems and failure as well as some renal insufficiency. Denies nausea or vomiting. Denies fever, chills or respiratory congestion. Timing/Duration: 4-6 hours Severity/Quality: moderate Location: frontal Prior Headaches/Recent Trauma: occasional headaches Modifying Factors: improves with rest Associated Symptoms: No confusion, No nausea/vomiting, No nasal congestion, No nasal drainage, No sinus infection, No stiff neck, No weakness Allergies and Home Medications Allergies Coded Allergies: JIA Inhibitors (Verified Allergy, Severe, 05/22/19) ARB-Angiotensin Receptor Antagonist (Verified Allergy, Severe, 05/22/19) baclofen (Unverified Allergy, Unknown, 05/22/19) ON H&P phenazopyridine (Unverified Allergy, Unknown, 05/22/19) ON H&P Home Medications Albuterol Sulfate 8 Gm Hfa.aer.ad, 2 PUFF INH Q6H PRN for SHORTNESS OF BREATH, (Reported) Amlodipine Besylate 10 Mg Tablet, 10 MG PO DAILY, (Reported) Apixaban 5 Mg Tablet, 5 MG PO BID Prescribed by: RALPH DELCID on 11/01/18 8636 Metoprolol Tartrate 50 Mg Tablet, 50 MG PO BID Prescribed by: FELECIA FORTUNE on 07/24/15 0841 Patient Home Medication List Home Medication List Reviewed: Yes Review of Systems Review of Systems Constitutional: see HPI; No chills, No fever Eyes: No Symptoms Reported Ears, Nose, Mouth, Throat: no symptoms reported Respiratory: No cough, No short of breath Cardiovascular: see HPI; No chest pain, No palpitations Gastrointestinal: No abdominal pain, No nausea, No vomiting Musculoskeletal: no symptoms reported Past Jkxuhbw-Njmkrz-Vnrgbu Hx Past Med/Social Hx: Reviewed Nursing Past Med/Soc Hx Patient Social History Alcohol Use: Denies Use Recreational Drug Use: No Smoking Status: Never a Smoker 2nd Hand Smoke Exposure: No Recent Hopitalizations: No Immunizations Up To Date Tetanus Booster (TDap): Unknown PED Vaccines UTD: Yes Date of Pneumonia Vaccine: Sep 09, 2018 Date of Influenza Vaccine: Aug 19, 2015 Seasonal Allergies Seasonal Allergies: No Past Medical History Surgeries: Yes (DEFIBRILLATOR PLACED 05/10/19. PEG TUBE--REMOVED, uterine ablation) Abdominal, Section, Defibrillator, Gallbladder, Tracheostomy Respiratory: Yes (ARDS-CODED; PNEUMOTHORAX 06/2015) Pneumonia, Chronic Bronchitis Currently Using CPAP: No Currently Using BIPAP: No Cardiac: Yes (PULMONARY EDEMA/CARDIAC CAUSE-R/T ATRIAL THROMBUS; CARDIAC ARREST;V-FIB ) Cardiomyopathy, Endocarditis, Hypertension, Valvular Heart Disease Neurological: Yes (encephalopathy-hypoxia, anoxic brain injury) Reproductive Disorders: No Sexually Transmitted Disease: No Genitourinary: Yes Renal Failure Gastrointestinal: Yes Gastroesophageal Reflux Musculoskeletal: Yes (GAIT DISTURBANCE) Endocrine: No HEENT: No Loss of Vision: Denies Hearing Impairment: Denies Cancer: No Psychosocial: Yes (per med record) Anxiety, Bipolar, Depression Integumentary: No Blood Disorders: Yes (ANEMIA) Family Medical History Reviewed Nursing Family Hx Patient reports no known family medical history. No Pertinent Family Hx Physical Exam Vital Signs Vital Signs - First Documented 07/28/19 18:12 Temp 98.3 Pulse 108 Resp 18 B/P (MAP) 169/117 (134) Pulse Ox 98 O2 Delivery Room Air Capillary Refill : Height, Weight, BMI Height: 5'3.00" Weight: 234lbs. 8.0oz. 106.335861uw; 44.2 BMI Method:Stated General Appearance: WD/WN, no apparent distress HEENT: PERRL/EOMI, pharynx normal Neck: full range of motion, supple Cardiovascular: regular rate, rhythm, no murmur Respiratory: lungs clear, normal breath sounds Gastrointestinal: non tender, soft Extremities: normal range of motion Psychiatric: alert, oriented x 3 Crainal Nerves: normal hearing, normal speech, PERRL Coordination/Gait: normal gait Skin: normal color, warm/dry Progress/Results/Core Measures Results/Orders My Orders Orders - FEDE AMARO MD Promethazine Injection (Phenergan Injec (07/28/19 18:38) Diphenhydramine Injection (Benadryl Inje (07/28/19 18:38) Dexamethasone Injection (Decadron Inject (07/28/19 18:45) Clonidine Tablet (Catapres Tablet) (07/28/19 19:00) Medications Given in ED Current Medications Medications Dose Ordered Sig/Mikal Route Start Time Stop Time Status Last Admin Dose Admin Clonidine HCl 0.1 mg ONCE ONCE PO 07/28/19 19:00 07/28/19 19:01 DC 07/28/19 19:04 0.1 MG Dexamethasone Sodium Phosphate 10 mg ONCE ONCE IM 07/28/19 18:45 07/28/19 18:46 DC 07/28/19 19:03 10 MG Vital Signs/I&O 07/28/19 18:12 Temp 98.3 Pulse 108 Resp 18 B/P (MAP) 169/117 (134) Pulse Ox 98 O2 Delivery Room Air Progress Progress Note : Progress Note Seen and evaluated. Reviewed previous history. We will give Decadron 10 mg IM, Phenergan 25 mg IM and Benadryl 25 mg IM. Patient's blood pressure 160s over 110s to 120s. Clonidine 0.1 mg by mouth given as this is typically what she takes when her blood pressures are controlled. Monitor patient. 2000: Patient is feeling much better. Discharged home with return precautions. Patient verbalize understanding instructions and agreement with plan. Blood pressure currently 139/102. She does have a ride home with her mother. Departure Impression Primary Impression: Headache Qualified Codes: R51 - Headache Disposition: 01 HOME, SELF-CARE Condition: Improved Departure-Patient Inst. Referrals: [facility] (PCP/Family) Primary Care Physician Patient Instructions: Migraine Headache (DC), Headache, Adult (DC) Add. Discharge Instructions: All discharge instructions reviewed with patient and/or family. Voiced understanding. Drink plenty of fluids and continue home medications as previously prescribed. You may take Tylenol/acetaminophen 1000 mg every 6 hours as needed for pain. Return for worse pain, fever, vomiting, weakness, breathing problems or other concerns as needed. FEDE AMARO MD Jul 28, 2019 19:09
[2019-07-28 20:13] VITALS: BP 135/104
== END 2019-07-28 20:13 | disposition home or self-care (01) ==
LOC: EDUNIT# 18:04 → ER FS 18:05
DX: R51 Headache (principal); J42 Unspecified chronic bronchitis; I42.9 Cardiomyopathy, unspecified; I10 Essential (primary) hypertension; K21.9 Gastro-esophageal reflux disease without esophagitis; F31.9 Bipolar disorder, unspecified; F41.9 Anxiety disorder, unspecified; Z88.8 Allergy status to other drugs, medicaments and biological substances; Z88.5 Allergy status to narcotic agent; Z95.810 Presence of automatic (implantable) cardiac defibrillator; Z93.0 Tracheostomy status; Z86.74 Personal history of sudden cardiac arrest
CPT/HCPCS: 99284

== ENCOUNTER 2019-07-29 21:17 | Emergency (ER) | payer MEDICAID ==
[~2019-07-29] VITALS: Ht 160 cm; Wt 106.1 kg
--- NOTE | 2019-07-29 21:53 | ED Integumentary General ---
General Chief Complaint: Bite-Animal/Human/Insect Stated Complaint: RIGHT FOOT POSS BUG BITE Source: patient Exam Limitations: no limitations History of Present Illness Date Seen by Provider: Jul 29, 2019 Time Seen by Provider: 21:49 Initial Comments Patient complains of a red circular raised tender area to the medial aspect of the arch of the right foot. She thinks it is a bug bite. No other symptoms. Allergies and Home Medications Allergies Coded Allergies: JIA Inhibitors (Verified Allergy, Severe, 05/22/19) ARB-Angiotensin Receptor Antagonist (Verified Allergy, Severe, 05/22/19) baclofen (Unverified Allergy, Unknown, 05/22/19) ON H&P phenazopyridine (Unverified Allergy, Unknown, 05/22/19) ON H&P Home Medications Albuterol Sulfate 8 Gm Hfa.aer.ad, 2 PUFF INH Q6H PRN for SHORTNESS OF BREATH, (Reported) Amlodipine Besylate 10 Mg Tablet, 10 MG PO DAILY, (Reported) Apixaban 5 Mg Tablet, 5 MG PO BID Prescribed by: RALPH DELCID on 11/01/18 2486 Metoprolol Tartrate 50 Mg Tablet, 50 MG PO BID Prescribed by: FELECIA FORTUNE on 07/24/15 0841 Patient Home Medication List Home Medication List Reviewed: Yes Review of Systems Review of Systems Constitutional: No fever Respiratory: no symptoms reported Cardiovascular: no symptoms reported Musculoskeletal: see HPI Past Jxrbccq-Fboezt-Yusboh Hx Patient Social History 2nd Hand Smoke Exposure: No Recent Foreign Travel: No Contact w/Someone Who Travel: No Recent Hopitalizations: No Immunizations Up To Date Tetanus Booster (TDap): Unknown PED Vaccines UTD: Yes Date of Pneumonia Vaccine: Sep 09, 2018 Date of Influenza Vaccine: Aug 19, 2015 Seasonal Allergies Seasonal Allergies: No Past Medical History Surgeries: Yes (DEFIBRILLATOR PLACED 05/10/19. PEG TUBE--REMOVED, uterine ablation) Abdominal, Section, Defibrillator, Gallbladder, Tracheostomy Respiratory: Yes (ARDS-CODED; PNEUMOTHORAX 06/2015) Pneumonia, Chronic Bronchitis Currently Using CPAP: No Currently Using BIPAP: No Cardiac: Yes (PULMONARY EDEMA/CARDIAC CAUSE-R/T ATRIAL THROMBUS; CARDIAC ARREST;V-FIB ) Cardiomyopathy, Endocarditis, Hypertension, Valvular Heart Disease Neurological: Yes (encephalopathy-hypoxia, anoxic brain injury) Reproductive Disorders: No Sexually Transmitted Disease: No Genitourinary: Yes Renal Failure Gastrointestinal: Yes Gastroesophageal Reflux Musculoskeletal: Yes (GAIT DISTURBANCE) Endocrine: No HEENT: No Loss of Vision: Denies Hearing Impairment: Denies Cancer: No Psychosocial: Yes (per med record) Anxiety, Bipolar, Depression Integumentary: No Blood Disorders: Yes (ANEMIA) Family Medical History Patient reports no known family medical history. No Pertinent Family Hx Physical Exam Vital Signs Capillary Refill : General Appearance: WD/WN, no apparent distress, obese Neck: supple Cardiovascular: regular rate, rhythm Respiratory: lungs clear Extremities: inflammation (Josselin Ely's area of redness and tenderness to the medial aspect of the arch of the right foot. No streaking) Skin Problem Character: erythema Lymphatic: no adenopathy Progress/Results/Core Measures Progress Progress Note : Progress Note Patient has a nonemergent insect bite of her foot. He was referred to the drugstore to get Benadryl cream Departure Impression Primary Impression: Insect bites Disposition: 01 HOME, SELF-CARE Condition: Stable Departure-Patient Inst. Decision time for Depature: 21:51 Referrals: MOUNIKA RIGGS MD (PCP/Family) Primary Care Physician Patient Instructions: Insect Bites and Stings (DC) Add. Discharge Instructions: Keep foot elevated next day or 2. Benadryl cream or generic and apply it 3 times daily. All discharge instructions reviewed with patient and/or family. Voiced understanding. ORESTES VELASCO MD Jul 29, 2019 21:53
[2019-07-29 22:01] VITALS: BP 164/110
== END 2019-07-29 22:01 | disposition home or self-care (01) ==
LOC: EDUNIT# 21:17 → ER FS 21:19
DX: S90.861A Insect bite (nonvenomous), right foot, initial encounter (principal); J42 Unspecified chronic bronchitis; I10 Essential (primary) hypertension; I42.9 Cardiomyopathy, unspecified; K21.9 Gastro-esophageal reflux disease without esophagitis; F31.9 Bipolar disorder, unspecified; F41.9 Anxiety disorder, unspecified; Z87.01 Personal history of pneumonia (recurrent); Z88.8 Allergy status to other drugs, medicaments and biological substances; Z95.810 Presence of automatic (implantable) cardiac defibrillator; Z93.0 Tracheostomy status; W57.XXXA Bitten or stung by nonvenomous insect and other nonvenomous arthropods, initial encounter
CPT/HCPCS: 99281

== ENCOUNTER 2019-08-15 17:03 | Emergency (ER) | payer MEDICAID ==
[~2019-08-15] VITALS: Ht 162 cm; Wt 114.7 kg
[2019-08-15] MEDS ORDERED: NF-METHYLP PO (18:41)
--- NOTE | 2019-08-15 18:41 | ED Lower Extremity ---
General Chief Complaint: Lower Extremity Stated Complaint: LT KNEE PAIN Nursing Triage Note: Patient c/o pain in her left knee. She states that she has arthritis in her left knee and the pain started 1 week ago and has not gotten any better. Nursing Sepsis Screen: No Definite Risk Source: patient Exam Limitations: no limitations History of Present Illness Date Seen by Provider: Aug 15, 2019 Time Seen by Provider: 18:31 Initial Comments Pt here for 1 week of pain in the left knee wiht subtle swelling and Hx of OA of the knee. N o injury. No weakness or tingling. Taking tylenol and motrin appropriately. No DM or HTN. She had to have the knee injected with steroids by primary care many months ago with good effect. Allergies and Home Medications Allergies Coded Allergies: JIA Inhibitors (Verified Allergy, Severe, 05/22/19) ARB-Angiotensin Receptor Antagonist (Verified Allergy, Severe, 05/22/19) baclofen (Unverified Allergy, Unknown, 05/22/19) ON H&P phenazopyridine (Unverified Allergy, Unknown, 05/22/19) ON H&P Home Medications Albuterol Sulfate 8 Gm Hfa.aer.ad, 2 PUFF INH Q6H PRN for SHORTNESS OF BREATH, (Reported) Amlodipine Besylate 10 Mg Tablet, 10 MG PO DAILY, (Reported) Apixaban 5 Mg Tablet, 5 MG PO BID Prescribed by: RALPH DELCID on 11/01/18 185 Methylprednisolone 4 Mg Tab, 4 MG PO UD as directed per dose pack Prescribed by: ANTONIO CALLEJAS on 08/15/19 1841 Metoprolol Tartrate 50 Mg Tablet, 50 MG PO BID Prescribed by: FELECIA FORTUNE on 07/24/15 0841 Patient Home Medication List Home Medication List Reviewed: Yes Review of Systems Constitutional: No chills, No diaphoresis EENTM: No ear discharge, No hearing loss, No ear pain Respiratory: No cough, No dyspnea on exertion Cardiovascular: No chest pain, No palpitations Gastrointestinal: No abdominal pain, No nausea Past Rbfubnj-Ljklue-Miplom Hx Patient Social History Alcohol Use: Denies Use Recreational Drug Use: No 2nd Hand Smoke Exposure: No Recent Foreign Travel: No Contact w/Someone Who Travel: No Recent Infectious Disease Expo: No Recent Hopitalizations: No Physical Abuse: No Sexual Abuse: No Mistreated: No Fear: No Immunizations Up To Date Tetanus Booster (TDap): Unknown PED Vaccines UTD: Yes Date of Pneumonia Vaccine: Sep 09, 2018 Date of Influenza Vaccine: Aug 19, 2015 Seasonal Allergies Seasonal Allergies: No Past Medical History Surgeries: Yes (DEFIBRILLATOR PLACED 05/10/19. PEG TUBE--REMOVED, uterine ablation) Abdominal, Section, Defibrillator, Gallbladder, Tracheostomy Respiratory: Yes (ARDS-CODED; PNEUMOTHORAX 06/2015) Pneumonia, Chronic Bronchitis Currently Using CPAP: No Currently Using BIPAP: No Cardiac: Yes (PULMONARY EDEMA/CARDIAC CAUSE-R/T ATRIAL THROMBUS; CARDIAC ARREST;V-FIB ) Cardiomyopathy, Endocarditis, Hypertension, Valvular Heart Disease Neurological: Yes (encephalopathy-hypoxia, anoxic brain injury) Reproductive Disorders: No Sexually Transmitted Disease: No Genitourinary: Yes Renal Failure Gastrointestinal: Yes Gastroesophageal Reflux Musculoskeletal: Yes (GAIT DISTURBANCE) Endocrine: No HEENT: No Loss of Vision: Denies Hearing Impairment: Denies Cancer: No Psychosocial: Yes (per med record) Anxiety, Bipolar, Depression Integumentary: No Blood Disorders: Yes (ANEMIA) Family Medical History Patient reports no known family medical history. No Pertinent Family Hx Physical Exam Vital Signs Vital Signs - First Documented 08/15/19 17:10 Temp 36.8 Pulse 101 Resp 18 B/P (MAP) 155/99 (117) Pulse Ox 98 O2 Delivery Room Air Capillary Refill : Less Than 3 Seconds Height, Weight, BMI Height: 5'3.00" Weight: 234lbs. 0oz. 106.076027dr; 43.00 BMI Method:Stated General Appearance: WD/WN, no apparent distress HEENT: PERRL/EOMI, pharynx normal Cardiovascular: normal peripheral pulses, regular rate, rhythm Respiratory: no respiratory distress, no accessory muscle use Hips: bilateral hip non-tender, bilateral hip normal inspection, bilateral hip normal range of motion, bilateral hip no evidence of injury Knees: right knee non-tender; bilateral knee normal inspection, bilateral knee normal range of motion, bilateral knee no evidence of injury; left knee pain (anterior tibial plateau) Ankles: bilateral ankle non-tender, bilateral ankle normal inspection, bilateral ankle normal range of motion, bilateral ankle no evidence of injury Neurologic/Tendon: normal sensation, normal motor functions, normal tendon functions Progress/Results/Core Measures Results/Orders My Orders Orders - ANTONIO CALLEJAS Ketorolac Injection (Toradol Injection) (08/15/19 18:45) Medications Given in ED Current Medications Medications Dose Ordered Sig/Mikal Route Start Time Stop Time Status Last Admin Dose Admin Ketorolac Tromethamine 60 mg ONCE ONCE IM 08/15/19 18:45 08/15/19 18:46 DC 08/15/19 19:10 60 MG Vital Signs/I&O 08/15/19 08/15/19 17:10 19:10 Temp 36.8 36.8 Pulse 101 97 Resp 18 18 B/P (MAP) 155/99 (117) 155/95 (117) Pulse Ox 98 100 O2 Delivery Room Air Room Air Blood Pressure Mean: 117 Progress Progress Note : Time: 18:38 Progress Note toradol and Medrol dose pack. Patient would prefer pills over knee injection at this time. Departure Impression Primary Impression: Osteoarthritis of left knee Qualified Codes: M17.12 - Unilateral primary osteoarthritis, left knee Disposition: 01 HOME, SELF-CARE Condition: Stable Departure-Patient Inst. Decision time for Depature: 18:38 Referrals: MOUNIKA RIGGS MD (PCP/Family) Primary Care Physician Patient Instructions: Osteoarthritis (DC) Add. Discharge Instructions: Take the medrol dose pack as prescribed. Tylenol 1000mg every 8 hours as needed. Ibuprofen 800mg every 8 hours for 1-2 weeks then as needed. Wrap the knee with jia bandage. Heat and creams such as Icy Hot, Biofreeze or Aspercreme used through out the day will be helpful. All discharge instructions reviewed with patient and/or family. Voiced understanding. Scripts Methylprednisolone (Medrol) 4 Mg Tab 4 MG PO UD for 6 Days, #21 TAB 0 Refills as directed per dose pack Prov: ANTONIO CALLEJAS 08/15/19 ANTONIO CALLEJAS Aug 15, 2019 18:41
[2019-08-15] MEDS ORDERED: KETOROLAC 60 MG/2 ML VIAL IM ONE (18:45)
[2019-08-15 19:10] VITALS: BP 155/95
== END 2019-08-15 19:10 | disposition home or self-care (01) ==
LOC: EDUNIT# 17:03 → ER FS 17:05
DX: M17.12 Unilateral primary osteoarthritis, left knee (principal); J42 Unspecified chronic bronchitis; I42.9 Cardiomyopathy, unspecified; I10 Essential (primary) hypertension; K21.9 Gastro-esophageal reflux disease without esophagitis; F31.9 Bipolar disorder, unspecified; F41.9 Anxiety disorder, unspecified; Z88.8 Allergy status to other drugs, medicaments and biological substances; Z88.5 Allergy status to narcotic agent; Z93.0 Tracheostomy status; Z95.810 Presence of automatic (implantable) cardiac defibrillator
CPT/HCPCS: 96372; 99284

== ENCOUNTER → 2019-08-27 | Outpatient (CLI) | payer MEDICAID ==
[~2019-08-27] MED LIST changes: +DOXY100T2 PO; +FLUC100T PO; +NF-METHYLP PO
--- NOTE | 2019-08-27 10:07 | Diagnostic Imaging Report ---
EXAMINATION: Right ankle at 9:24 AM INDICATION: Ankle pain 3 views were obtained. There are no prior studies available for comparison. There is no fracture, dislocation or acute bony abnormality evident. The ankle mortise is not widened and the talar dome is smooth. There does seem to be mild soft tissue edema along the medial aspect of the ankle joint. IMPRESSION: There is no evidence for an acute bony abnormality. Dictated by: Dictated on workstation # [id number]
== END ==
LOC: RAD FS 09:29
PROVIDERS: ATTEND Nurse Practitioner Family
DX: M25.571 Pain in right ankle and joints of right foot (principal)
CPT/HCPCS: 73610

== ENCOUNTER 2019-08-28 16:54 | Emergency (ER) | payer MEDICAID ==
[~2019-08-28] VITALS: Ht 160 cm; Wt 115.7 kg
[~2019-08-28 16:54] MED LIST changes: -DOXY100T2 PO; -FLUC100T PO
[2019-08-28 17:27] LABS: CLARITY,URINE CLOUDY; COLOR,URINE YELLOW; PH,URINE 5.5 (5-9)
[2019-08-28 17:28] LABS: BACTERIA,URINE MODERATE /HPF; BILIRUBIN,URINE NEGATIVE (NEGATIVE); GLUCOSE, URINE (UA) NEGATIVE (NEGATIVE); KETONES,URINE NEGATIVE (NEGATIVE); LEUKOCYTE ESTERASE ,URINE NEGATIVE (NEGATIVE); NITRITE,URINE NEGATIVE (NEGATIVE); PROTEIN,URINE 3+ (NEGATIVE); RBC,URINE RARE /HPF; SQUAMOUS EPITHELIAL CELL,UR >50 /HPF; UROBILINOGEN,URINE 0.2 MG/DL (NORMAL); WBC,URINE RARE /HPF
--- NOTE | 2019-08-28 17:41 | ED GU-Female ---
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 States she had a uterine ablation 5 years ago and no longer has periods. Nursing Sepsis Screen: No Definite Risk Source: patient Exam Limitations: no limitations History of Present Illness Date Seen by Provider: Aug 28, 2019 Time Seen by Provider: 17:36 Initial Comments Patient is a 29-year-old female with history of uterine ablation who presents with dysuria and suprapubic pain and cramping. Symptoms began earlier today. No nausea vomiting, fevers chills, flank pain or sweats. No history of kidney stones. No hematuria. No vaginal bleeding, discharge, history of PID or concerns for STDs. Patient has not had a menstrual period 5 years since uterine ablation. No other acute symptoms or complaints. Timing/Duration: constant Severity/Quality: burning, cramping, dull Location: suprapubic Radiation: none Activities at Onset: none Prior Genitourinary Problems: similar symptoms Associated Symptoms: denies symptoms Allergies and Home Medications Allergies Coded Allergies: JIA Inhibitors (Verified Allergy, Severe, 05/22/19) ARB-Angiotensin Receptor Antagonist (Verified Allergy, Severe, 05/22/19) baclofen (Unverified Allergy, Unknown, 05/22/19) ON H&P phenazopyridine (Unverified Allergy, Unknown, 05/22/19) ON H&P Home Medications Albuterol Sulfate 8 Gm Hfa.aer.ad, 2 PUFF INH Q6H PRN for SHORTNESS OF BREATH, (Reported) Amlodipine Besylate 10 Mg Tablet, 10 MG PO DAILY, (Reported) Apixaban 5 Mg Tablet, 5 MG PO BID Prescribed by: RALPH DELCID on 11/01/18 1856 Methylprednisolone 4 Mg Tab, 4 MG PO UD as directed per dose pack Prescribed by: ANTONIO CALLEJAS on 08/15/19 1841 Metoprolol Tartrate 50 Mg Tablet, 50 MG PO BID Prescribed by: FELECIA FORTUNE on 07/24/15 0842 Patient Home Medication List Home Medication List Reviewed: Yes Review of Systems Review of Systems Constitutional: no symptoms reported EENTM: no symptoms reported Respiratory: no symptoms reported Cardiovascular: no symptoms reported, chest pain Genitourinary: see HPI Musculoskeletal: no symptoms reported Past Rmxqjrb-Pdrzsm-Ygbbtg Hx Past Med/Social Hx: Reviewed Nursing Past Med/Soc Hx Patient Social History Alcohol Use: Denies Use Recreational Drug Use: No 2nd Hand Smoke Exposure: No Recent Foreign Travel: No Contact w/Someone Who Travel: No Recent Infectious Disease Expo: No Recent Hopitalizations: No Physical Abuse: No Sexual Abuse: No Mistreated: No Fear: No Immunizations Up To Date Tetanus Booster (TDap): Unknown PED Vaccines UTD: Yes Date of Pneumonia Vaccine: Sep 09, 2018 Date of Influenza Vaccine: Aug 19, 2015 Seasonal Allergies Seasonal Allergies: No Past Medical History Surgeries: Yes (DEFIBRILLATOR PLACED 05/10/19. PEG TUBE--REMOVED, uterine ablation) Abdominal, Section, Defibrillator, Gallbladder, Tracheostomy Respiratory: Yes (ARDS-CODED; PNEUMOTHORAX 06/2015) Pneumonia, Chronic Bronchitis Currently Using CPAP: No Currently Using BIPAP: No Cardiac: Yes (PULMONARY EDEMA/CARDIAC CAUSE-R/T ATRIAL THROMBUS; CARDIAC ARREST;V-FIB ) Cardiomyopathy, Endocarditis, Hypertension, Valvular Heart Disease Neurological: Yes (encephalopathy-hypoxia, anoxic brain injury) Reproductive Disorders: No Sexually Transmitted Disease: No Genitourinary: Yes Renal Failure Gastrointestinal: Yes Gastroesophageal Reflux Musculoskeletal: Yes (GAIT DISTURBANCE) Endocrine: No HEENT: No Loss of Vision: Denies Hearing Impairment: Denies Cancer: No Psychosocial: Yes (per med record) Anxiety, Bipolar, Depression Integumentary: No Blood Disorders: Yes (ANEMIA) Family Medical History Patient reports no known family medical history. No Pertinent Family Hx Physical Exam Vital Signs Vital Signs - First Documented 08/28/19 17:08 Temp 37.0 Pulse 52 Resp 18 B/P (MAP) 164/117 (133) Pulse Ox 97 O2 Delivery Room Air Capillary Refill : Less Than 3 Seconds Height, Weight, BMI Height: 5'3.00" Weight: 234lbs. 0oz. 106.272574dk; 45.00 BMI Method:Stated General Appearance: no apparent distress HEENT: PERRL/EOMI, normal ENT inspection, pharynx normal Neck: non-tender, supple Respiratory: lungs clear Gastrointestinal: soft, other (all suprapubic pain and tenderness.) Extremities: normal range of motion Focused Exam Sepsis Stage: Ruled Out Progress/Results/Core Measures Suspected Sepsis Recent Fever Within 48 Hours: No Infection Criteria Present: None New/Unexplained Altered Menta: No Sepsis Screen: No Definite Risk SIRS Temperature: Pulse: 52 Respiratory Rate: 18 Blood Pressure 164 /117 Mean: 133 Results/Orders Lab Results Laboratory Tests Test 08/28/19 17:00 Range/Units Urine Color YELLOW Urine Clarity CLOUDY Urine pH 5.5 5-9 Urine Specific [place] >=1.030 1.016-1.022 Urine Protein 3+ H NEGATIVE Urine Glucose (UA) NEGATIVE NEGATIVE Urine Ketones NEGATIVE NEGATIVE Urine Nitrite NEGATIVE NEGATIVE Urine Bilirubin NEGATIVE NEGATIVE Urine Urobilinogen 0.2 NORMAL MG/DL Urine Leukocyte Esterase NEGATIVE NEGATIVE Urine RBC (Auto) 1+ H NEGATIVE Urine RBC RARE /HPF Urine WBC RARE /HPF Urine Squamous Epithelial Cells >50 H /HPF Urine Crystals NONE /LPF Urine Bacteria MODERATE H /HPF Urine Casts NONE /LPF Urine Mucus NONE /LPF Urine Culture Indicated NO My Orders Orders - MOIZ MARLEY DO Ua Culture If Indicated (08/28/19 17:16) Vital Signs/I&O 08/28/19 17:08 Temp 37.0 Pulse 52 Resp 18 B/P (MAP) 164/117 (133) Pulse Ox 97 O2 Delivery Room Air Capillary Refill : Less Than 3 Seconds Blood Pressure Mean: 133 Departure Communication (Admissions) UA reviewed. Will place on antibiotic in oral antifungal with instructions follow up with PCP in 2-3 days for urine culture results. Impression Primary Impression: Suprapubic pain, acute Additional Impression: Acute urinary tract infection Disposition: HOME, SELF-CARE Condition: Stable Departure-Patient Inst. Referrals: MOUNIKA RIGGS MD (PCP/Family) Primary Care Physician Patient Instructions: Urinary Tract Infection, Adult (DC) Add. Discharge Instructions: Please take antibiotics as directed follow-up with your PCP or WELDING OPERATOR in 2-3 days for reevaluation and urine culture results. Take Tylenol as needed for pain. Return to the ED if new or worsening symptoms. All discharge instructions reviewed with patient and/or family. Voiced understanding. Scripts Fluconazole (Diflucan) 100 Mg Tablet 100 MG PO Q48H, #2 TAB Prov: MOIZ MARLEY DO 08/28/19 Doxycycline Hyclate (Doxycycline Hyclate) 100 Mg Tablet 100 MG PO BID, #14 TAB 0 Refills Prov: MOIZ MARLEY DO 08/28/19 MOIZ MARLEY DO Aug 28, 2019 17:41
[2019-08-28] MEDS ORDERED: FLUC100T PO (17:46)
[2019-08-28] MEDS ORDERED: DOXY100T2 PO (17:46)
[2019-08-28 17:53] VITALS: BP 164/117
== END 2019-08-28 17:54 | disposition home or self-care (01) ==
LOC: EDUNIT# 16:54 → ER FS 16:55
DX: N39.0 Urinary tract infection, site not specified (principal); I10 Essential (primary) hypertension; K21.9 Gastro-esophageal reflux disease without esophagitis; F41.9 Anxiety disorder, unspecified; F31.9 Bipolar disorder, unspecified; Z87.820 Personal history of traumatic brain injury; Z88.8 Allergy status to other drugs, medicaments and biological substances; Z79.01 Long term (current) use of anticoagulants; Z93.0 Tracheostomy status; Z95.810 Presence of automatic (implantable) cardiac defibrillator
CPT/HCPCS: 81000; 99282

== ENCOUNTER 2019-08-31 04:15 | Emergency (ER) | payer MEDICAID ==
[~2019-08-31] VITALS: Ht 160 cm; Wt 104.0 kg
[~2019-08-31 04:15] MED LIST changes: +DOXY100T2 PO; +FLUC100T PO
[2019-08-31] MEDS ORDERED: NITROGLYCERIN 2% OINT 1 GM UNIT DOSE PACKET TOP STA (04:21)
[2019-08-31 04:36] LABS: HEMATOCRIT 43 % (35-52); HEMOGLOBIN 13.8 G/DL (11.5-16.0); MEAN CORPUSCULAR HEMOGLOBIN 28 PG (25-34); MEAN CORPUSCULAR VOLUME 88 FL (80-99)
[2019-08-31 04:37] LABS: BASOPHILS # (AUTO) 0.1 10^3/uL (0.0-0.1); BASOPHILS % (AUTO) 1 % (0-10); EOSINOPHILS # (AUTO) 0.2 10^3/uL (0.0-0.3); EOSINOPHILS % (AUTO) 3 % (0-10); LYMPHOCYTES # (AUTO) 3.6 X 10^3 (1.0-4.0); LYMPHOCYTES % (AUTO) 45 % (12-44); MEAN CORPUSCULAR HGB CONC 33 G/DL (32-36); MEAN PLATELET VOLUME 8.8 FL (7.4-10.4); MONOCYTES # (AUTO) 0.5 X 10^3 (0.0-1.0); MONOCYTES % (AUTO) 7 % (0-12); NEUTROPHILS # (AUTO) 3.5 X 10^3 (1.8-7.8); NEUTROPHILS % (AUTO) 44 % (42-75); PLATELET COUNT 323 10^3/uL (130-400); RED CELL DISTRIBUTION WIDTH 15.7 % (10.0-14.5)
--- NOTE | 2019-08-31 04:38 | ED Chest Pain ---
General Chief Complaint: Chest Pain Stated Complaint: CHEST PAIN Source: patient, EMS History of Present Illness Date Seen by Provider: Aug 31, 2019 Time Seen by Provider: 04:15 Initial Comments 29 yo F presenting by EMS with complaints of chest pressure that started shortly before she came to the ED. she did not take anything for it at home. She has a cardiac history and follows with Dr. Patterson in [place]. She states she was just sitting up watching TV when the pressure came on for her. She has a pain 2/10 currently on arrival to the ED. She has some shortness of breath with this. She denies nausea or vomiting. Her pain was reproducible with palpation of right chest wall. Allergies and Home Medications Allergies Coded Allergies: JIA Inhibitors (Verified Allergy, Severe, 05/22/19) ARB-Angiotensin Receptor Antagonist (Verified Allergy, Severe, 05/22/19) baclofen (Unverified Allergy, Unknown, 05/22/19) ON H&P phenazopyridine (Unverified Allergy, Unknown, 05/22/19) ON H&P Home Medications Albuterol Sulfate 8 Gm Hfa.aer.ad, 2 PUFF INH Q6H PRN for SHORTNESS OF BREATH, (Reported) Amlodipine Besylate 10 Mg Tablet, 10 MG PO DAILY, (Reported) Apixaban 5 Mg Tablet, 5 MG PO BID Prescribed by: RALPH DELCID on 11/01/18 185 Doxycycline Hyclate 100 Mg Tablet, 100 MG PO BID Prescribed by: MOIZ MARLEY on 08/28/19 174 Fluconazole 100 Mg Tablet, 100 MG PO Q48H Prescribed by: MOIZ MARLEY on 08/28/19 174 Methylprednisolone 4 Mg Tab, 4 MG PO UD as directed per dose pack Prescribed by: ANTONIO CALLEJAS on 08/15/19 1841 Metoprolol Tartrate 50 Mg Tablet, 50 MG PO BID Prescribed by: FELECIA PATTERSON on 07/24/15 0841 Patient Home Medication List Home Medication List Reviewed: Yes Review of Systems Review of Systems Constitutional: No chills, No fever EENTM: No Symptoms Reported Respiratory: Denies Cough; Shortness of Air Cardiovascular: Chest Pain (pressure) Gastrointestinal: Denies Nausea Genitourinary: No Symptoms Reported Musculoskeletal: no symptoms reported Skin: no symptoms reported Psychiatric/Neurological: Anxiety Past Rhjrrpr-Vwmtpc-Mztqfa Hx Past Med/Social Hx: Reviewed Nursing Past Med/Soc Hx Patient Social History 2nd Hand Smoke Exposure: No Recent Foreign Travel: No Contact w/Someone Who Travel: No Recent Hopitalizations: No Immunizations Up To Date Tetanus Booster (TDap): Unknown PED Vaccines UTD: Yes Date of Pneumonia Vaccine: Sep 09, 2018 Date of Influenza Vaccine: Aug 19, 2015 Seasonal Allergies Seasonal Allergies: No Past Medical History Surgeries: Yes (DEFIBRILLATOR PLACED 05/10/19. PEG TUBE--REMOVED, uterine ablation) Abdominal, Section, Defibrillator, Gallbladder, Tracheostomy Respiratory: Yes (ARDS-CODED; PNEUMOTHORAX 06/2015) Pneumonia, Chronic Bronchitis Currently Using CPAP: No Currently Using BIPAP: No Cardiac: Yes (PULMONARY EDEMA/CARDIAC CAUSE-R/T ATRIAL THROMBUS; CARDIAC ARREST;V-FIB ) Cardiomyopathy, Endocarditis, Hypertension, Valvular Heart Disease Neurological: Yes (encephalopathy-hypoxia, anoxic brain injury) Reproductive Disorders: No Sexually Transmitted Disease: No Genitourinary: Yes Renal Failure Gastrointestinal: Yes Gastroesophageal Reflux Musculoskeletal: Yes (GAIT DISTURBANCE) Endocrine: No HEENT: No Loss of Vision: Denies Hearing Impairment: Denies Cancer: No Psychosocial: Yes (per med record) Anxiety, Bipolar, Depression Integumentary: No Blood Disorders: Yes (ANEMIA) Family Medical History Patient reports no known family medical history. No Pertinent Family Hx Physical Exam Vital Signs Vital Signs - First Documented 08/31/19 08/31/19 04:20 04:24 Temp 36.3 Pulse 88 Resp 18 B/P (MAP) 169/114 (132) Pulse Ox 99 O2 Delivery Nasal Cannula O2 Flow Rate 2.00 Capillary Refill : Height, Weight, BMI Height: 5'3.00" Weight: 234lbs. 0oz. 106.069648lv; 45.00 BMI Method:Stated General Appearance: No Apparent Distress, WD/WN, Obese HEENT: Normal ENT Inspection, Pharynx Normal Neck: Full Range of Motion, Normal Inspection, Non Tender, Supple; No Carotid Bruit Respiratory: Lungs Clear, Normal Breath Sounds, Other (tender to palpation on right side of sternum, reproduces pressure/pain in chest) Cardiovascular: Regular Rate, Rhythm, Normal Peripheral Pulses Gastrointestinal: Normal Bowel Sounds, No Pulsatile Mass, Non Tender, Soft Extremity: Normal Capillary Refill, Non Tender, No Pedal Edema Neurologic/Psychiatric: Alert, Oriented x3 Skin: Normal Color, Warm/Dry Progress/Results/Core Measures Results/Orders Lab Results Laboratory Tests Test 08/31/19 04:26 Range/Units White Blood Count 8.0 4.3-11.0 10^3/uL Red Blood Count 4.85 4.35-5.85 10^6/uL Hemoglobin 13.8 11.5-16.0 G/DL Hematocrit 43 35-52 % Mean Corpuscular Volume 88 80-99 FL Mean Corpuscular Hemoglobin 28 25-34 PG Mean Corpuscular Hemoglobin Concent 33 32-36 G/DL Red Cell Distribution Width 15.7 H 10.0-14.5 % Platelet Count 323 130-400 10^3/uL Mean Platelet Volume 8.8 7.4-10.4 FL Neutrophils (%) (Auto) 44 42-75 % Lymphocytes (%) (Auto) 45 H 12-44 % Monocytes (%) (Auto) 7 0-12 % Eosinophils (%) (Auto) 3 0-10 % Basophils (%) (Auto) 1 0-10 % Neutrophils # (Auto) 3.5 1.8-7.8 X 10^3 Lymphocytes # (Auto) 3.6 1.0-4.0 X 10^3 Monocytes # (Auto) 0.5 0.0-1.0 X 10^3 Eosinophils # (Auto) 0.2 0.0-0.3 10^3/uL Basophils # (Auto) 0.1 0.0-0.1 10^3/uL Prothrombin Time 12.0 L 12.2-14.7 SEC INR Comment 0.9 0.8-1.4 Activated Partial Thromboplast Time 23 L 24-35 SEC Sodium Level 140 135-145 MMOL/L Potassium Level 3.6 3.6-5.0 MMOL/L Chloride Level 104 98-107 MMOL/L Carbon Dioxide Level 25 21-32 MMOL/L Anion Gap 11 5-14 MMOL/L Blood Urea Nitrogen 13 7-18 MG/DL Creatinine 1.74 H 0.60-1.30 MG/DL Estimat Glomerular Filtration Rate 41 BUN/Creatinine Ratio 7 Glucose Level 119 H 70-105 MG/DL Calcium Level 8.9 8.5-10.1 MG/DL Corrected Calcium 9.1 8.5-10.1 MG/DL Magnesium Level 1.8 1.6-2.4 MG/DL Total Bilirubin < 0.2 0.1-1.0 MG/DL Aspartate Amino Transf (AST/SGOT) 26 5-34 U/L Alanine Aminotransferase (ALT/SGPT) 27 0-55 U/L Alkaline Phosphatase 83 40-136 U/L Troponin I < 0.30 <0.30 NG/ML Pro-B-Type Natriuretic Peptide 484.6 H <75.0 PG/ML Total Protein 6.6 6.4-8.2 GM/DL Albumin 3.8 3.2-4.5 GM/DL My Orders Orders - EDISON CHAMBERLAIN MD Cbc With Automated Diff (08/31/19 04:21) Magnesium (08/31/19 04:21) Chest 1 View Ap/Pa Only (08/31/19 04:21) Ekg Tracing (08/31/19 04:21) Comprehensive Metabolic Panel (08/31/19 04:21) Protime With Inr (08/31/19 04:21) Partial Thromboplastin Time (08/31/19 04:21) O2 (08/31/19 04:21) Monitor-Rhythm Ecg Trace Only (08/31/19 04:21) Ed Iv/Invasive Line Start (08/31/19 04:21) Troponin I Fs (08/31/19 04:21) Probnp Fs (08/31/19 04:21) Nitroglycerin Ointment (Nitrobid Ointme (08/31/19 04:21) Acetaminophen Tablet (Tylenol Tablet) (08/31/19 06:04) Troponin I Fs (08/31/19 06:30) Metoprolol Succinate (Xl) Tab (Toprol Xl (08/31/19 06:08) Metoprolol Succinate (Xl) Tab (Toprol Xl (08/31/19 06:15) Metoprolol Succinate (Xl) Tab (Toprol Xl (08/31/19 06:16) Vital Signs/I&O 08/31/19 08/31/19 08/31/19 08/31/19 04:20 04:24 04:33 06:35 Temp 36.3 Pulse 88 82 Resp 18 18 B/P (MAP) 169/114 (132) 159/80 Pulse Ox 99 99 99 O2 Delivery Nasal Cannula Room Air Room Air Room Air O2 Flow Rate 2.00 Progress Progress Note #1: Progress Note check labs, cxr and ecg. she is hypertensive so will order ntg paste to try and help with her pressure and residual pain. Progress Note #2: Progress Note Initial labs are all negative with no acute significant abnormality. Her cardiac enzymes are 0. Her chest x-ray does not show any acute significant abnormality. Progress Note #3: Progress Note Patient sleeping in room without any distress. When awakened she had no complaints of pain. If she has other problems then she may need to be evaluated with Dr. Patterson or seen in [place], otherwise advise her to see him as an outpatient at next available appointment. This may be more related to chest wall and chronic hypertension. If she has more symptoms or pain then return or seek medical care Initial ECG Impression Date: Aug 31, 2019 Initial ECG Impression Time: 04:12 Initial ECG Rate: 87 Initial ECG Rhythm: Normal Sinus Initial ECG Comparisson: Unchanged Comment Sinus rhythm with a heart rate of 87 bpm. She has left ventricular hypertrophy. She has a MN interval 591 ms. QT interval of 383 ms with a QT corrected interval of 461 ms. She has no acute ST elevation. She does have some T-wave flattening in the lateral and inferior leads. Diagnostic Imaging Diagonstic Imaging: Xray Plain Films/CT/US/NM/MRI: chest Comments On my review of her 1 view portable chest x-ray she has no acute infiltrate or effusion. She has an AICD device in place. NAME: [facility] REC#: [id number] PT STATUS: REG ER : 1990 PHYSICIAN: EDISON CHAMBERLAIN MD ADMIT DATE: 08/31/19/ER FS Draft Date of Exam:08/31/19 CHEST 1 VIEW AP/PA ONLY INDICATION: Chest pain. COMPARISON: 06/04/2019 FINDINGS: Single frontal view of the chest demonstrates mild cardiomegaly. Pulmonary vasculature is within normal limits. Left-sided AICD is noted. Lungs show low inspiratory volumes, but are otherwise clear. No large pleural effusion or pneumothorax is seen. The visualized osseous structures show no acute abnormalities. IMPRESSION: 1. Mild cardiomegaly and low lung volumes, but otherwise no evidence of failure or focal infiltrate. Dictated on workstation # [id number] Dict: 08/31/1917 Trans: 08/31/19 0531 [id number] Interpreted by: FREYA DORAN MD Electronically signed by: Reviewed: Reviewed by Me Departure Impression Primary Impression: Chest pain Qualified Codes: R07.9 - Chest pain, unspecified Additional Impression: Hypertension Qualified Codes: I10 - Essential (primary) hypertension Disposition: 01 HOME, SELF-CARE Condition: Stable Departure-Patient Inst. Decision time for Depature: 06:25 Referrals: MOUNIKA RIGGS MD (PCP/Family) Primary Care Physician Patient Instructions: High Blood Pressure (DC) EDISON CHAMBERLAIN MD Aug 31, 2019 04:38
[2019-08-31 04:43] LABS: INR 0.9 (0.8-1.4)
[2019-08-31 04:44] LABS: SODIUM 140 MMOL/L (135-145)
[2019-08-31 04:45] LABS: BILIRUBIN,TOTAL < 0.2 MG/DL (0.1-1.0); CALCIUM 8.9 MG/DL (8.5-10.1); CARBON DIOXIDE 25 MMOL/L (21-32); CHLORIDE 104 MMOL/L (98-107); MAGNESIUM 1.8 MG/DL (1.6-2.4); POTASSIUM 3.6 MMOL/L (3.6-5.0); TOTAL PROTEIN 6.6 GM/DL (6.4-8.2)
[2019-08-31 04:48] LABS: ALANINE AMINOTRANSFERASE 27 U/L (0-55); ALBUMIN 3.8 GM/DL (3.2-4.5); ALKALINE PHOSPHATASE 83 U/L (40-136); BUN/CREATININE RATIO 7; CREATININE SERUM 1.74 MG/DL (0.60-1.30); GFR ESTIMATED 41; GLUCOSE 119 MG/DL (70-105)
--- NOTE | 2019-08-31 05:32 | Diagnostic Imaging Report ---
INDICATION: Chest pain. COMPARISON: 06/04/2019 FINDINGS: Single frontal view of the chest demonstrates mild cardiomegaly. Pulmonary vasculature is within normal limits. Left-sided AICD is noted. Lungs show low inspiratory volumes, but are otherwise clear. No large pleural effusion or pneumothorax is seen. The visualized osseous structures show no acute abnormalities. IMPRESSION: 1. Mild cardiomegaly and low lung volumes, but otherwise no evidence of failure or focal infiltrate. Dictated by: Dictated on workstation # [id number]
[2019-08-31] MEDS ORDERED: ACETAMINOPHEN 500 MG TAB (TYLENOL) PO STA (06:04)
[2019-08-31] MEDS ORDERED: meTOprolol SUCCINATE 100 MG (TOPROL XL) TAB PO STA (06:08)
[2019-08-31] MEDS ORDERED: meTOproloL SUCCINATE 50 MG (TOPROL XL) TAB PO STA (06:15)
[2019-08-31] MEDS ORDERED: meTOproloL SUCCINATE 50 MG (TOPROL XL) TAB PO ONE (06:16)
[2019-08-31 06:35] VITALS: BP 159/80
== END 2019-08-31 06:35 | disposition home or self-care (01) ==
LOC: ER FS 04:15 → EDUNIT# 04:15 → ER FS 06:35
DX: R07.9 Chest pain, unspecified (principal); I10 Essential (primary) hypertension; K21.9 Gastro-esophageal reflux disease without esophagitis; F41.9 Anxiety disorder, unspecified; F31.9 Bipolar disorder, unspecified; Z87.09 Personal history of other diseases of the respiratory system; Z87.820 Personal history of traumatic brain injury; Z88.8 Allergy status to other drugs, medicaments and biological substances; Z79.01 Long term (current) use of anticoagulants; Z95.810 Presence of automatic (implantable) cardiac defibrillator; Z93.0 Tracheostomy status
CPT/HCPCS: 36415; 71045; 80053; 83735; 83880; 84484; 85025; 85610; 85730; 93005; 93041

== ENCOUNTER 2019-10-23 08:50 | Emergency (ER) | payer MEDICAID ==
[~2019-10-23] VITALS: Ht 165.1 cm; Wt 114.8 kg
[2019-10-23 09:15] LABS: BACTERIA,URINE NEGATIVE /HPF; BILIRUBIN,URINE NEGATIVE (NEGATIVE); CLARITY,URINE SLT CLOUDY; COLOR,URINE YELLOW; GLUCOSE, URINE (UA) NEGATIVE (NEGATIVE); KETONES,URINE NEGATIVE (NEGATIVE); LEUKOCYTE ESTERASE ,URINE NEGATIVE (NEGATIVE); NITRITE,URINE NEGATIVE (NEGATIVE); PROTEIN,URINE 2+ (NEGATIVE); RBC,URINE RARE /HPF
[2019-10-23] MEDS ORDERED: NS IV 1000 ML 1,000 ML IV SCH (09:15)
--- NOTE | 2019-10-23 09:23 | ED Back Pain ---
General Chief Complaint: Back Problems Stated Complaint: LT FLANK PAIN; NAUSEA Nursing Triage Note: Patient c/o of left lower back/flank pain. States that the pain has been occurring for the past couple of weeks and describes it as burning sensation that is very intense then slowly dissapates. She denies any injury to her back or any other urinary symptoms. Nursing Sepsis Screen: No Definite Risk Source of Information: Patient Exam Limitations: No Limitations History of Present Illness Date Seen by Provider: Oct 23, 2019 Time Seen by Provider: 09:05 Initial Comments The patient is a pleasant obese 29-year-old female who presents for evaluation of left lower back discomfort over the past few weeks. She states that it sometimes feels a burning sensation that comes on causes discomfort and then slowly goes away. She currently does not have any pain. She reports a history of hypertension, stroke, and has a pacemaker defibrillator. She states that she has protein in her urine normally but denies ever having a kidney stone. She has not noticed a rash on her skin. She denies any urinary symptoms, fevers or chills, abdominal pain, chest pain or shortness of breath, she is alert and oriented 4, calm, and appears to be in no distress at this time. Timing/Duration: Other (2 weeks) Severity: Mild Pain/Injury Location: Back (left flank) Method of Injury: Unknown Associated Symptoms: denies symptoms Allergies and Home Medications Allergies Coded Allergies: JIA Inhibitors (Verified Allergy, Severe, 05/22/19) ARB-Angiotensin Receptor Antagonist (Verified Allergy, Severe, 05/22/19) baclofen (Unverified Allergy, Unknown, 05/22/19) ON H&P phenazopyridine (Unverified Allergy, Unknown, 05/22/19) ON H&P Home Medications Albuterol Sulfate 8 Gm Hfa.aer.ad, 2 PUFF INH Q6H PRN for SHORTNESS OF BREATH, (Reported) Amlodipine Besylate 10 Mg Tablet, 10 MG PO DAILY, (Reported) Apixaban 5 Mg Tablet, 5 MG PO BID Prescribed by: RALPH DELCID on 11/01/181855 Doxycycline Hyclate 100 Mg Tablet, 100 MG PO BID Prescribed by: MOIZ MARLEY on 08/28/191745 Fluconazole 100 Mg Tablet, 100 MG PO Q48H Prescribed by: MOIZ MARLEY on 10/1/19 1746 Methylprednisolone 4 Mg Tab, 4 MG PO UD as directed per dose pack Prescribed by: ANTONIO CALLEJAS on 08/15/19 1841 Metoprolol Tartrate 50 Mg Tablet, 50 MG PO BID Prescribed by: FELECIA FORTUNE on 07/24/15 0841 Patient Home Medication List Home Medication List Reviewed: Yes Review of Systems Constitutional: no symptoms reported EENTM: no symptoms reported Respiratory: no symptoms reported Cardiovascular: no symptoms reported Gastrointestinal: nausea Genitourinary: no symptoms reported : No Musculoskeletal: back pain (left flank pain) Skin: no symptoms reported Psychiatric/Neurological: No Symptoms Reported All Other Systems Reviewed Negative Unless Noted: Yes Past Kmckfns-Kzivjw-Pvspou Hx Past Med/Social Hx: Reviewed Nursing Past Med/Soc Hx Patient Social History Alcohol Use: Denies Use Recreational Drug Use: No Smoking Status: Former Smoker Type Used: Cigarettes 2nd Hand Smoke Exposure: No Recent Foreign Travel: No Contact w/Someone Who Travel: No Recent Infectious Disease Expo: No Recent Hopitalizations: No Physical Abuse: No Sexual Abuse: No Mistreated: No Fear: No Immunizations Up To Date Tetanus Booster (TDap): Unknown PED Vaccines UTD: Yes Date of Pneumonia Vaccine: Sep 09, 2018 Date of Influenza Vaccine: Aug 19, 2015 Seasonal Allergies Seasonal Allergies: No Past Medical History Surgeries: Yes (DEFIBRILLATOR PLACED 05/10/19. PEG TUBE--REMOVED, uterine ablation) Abdominal, Section, Defibrillator, Gallbladder, Tracheostomy Respiratory: Yes (ARDS-CODED; PNEUMOTHORAX 06/2015) Pneumonia, Chronic Bronchitis Currently Using CPAP: No Currently Using BIPAP: No Cardiac: Yes (PULMONARY EDEMA/CARDIAC CAUSE-R/T ATRIAL THROMBUS; CARDIAC ARREST;V-FIB ) Cardiomyopathy, Endocarditis, Hypertension, Valvular Heart Disease Neurological: Yes (encephalopathy-hypoxia, anoxic brain injury) Reproductive Disorders: No Sexually Transmitted Disease: No Genitourinary: Yes Renal Failure Gastrointestinal: Yes Gastroesophageal Reflux Musculoskeletal: Yes (GAIT DISTURBANCE) Endocrine: No HEENT: No Loss of Vision: Denies Hearing Impairment: Denies Cancer: No Psychosocial: Yes (per med record) Anxiety, Bipolar, Depression Integumentary: No Blood Disorders: Yes (ANEMIA) Family Medical History Patient reports no known family medical history. No Pertinent Family Hx Physical Exam Vital Signs Vital Signs - First Documented 10/23/19 08:55 Temp 36.5 Pulse 77 Resp 18 B/P (MAP) 154/99 (117) Pulse Ox 99 O2 Delivery Room Air Capillary Refill : Less Than 3 Seconds Height, Weight, BMI Height: 5'3.00" Weight: 234lbs. 0oz. 106.282474vd; 42.00 BMI Method:Stated General Appearance: No Apparent Distress, WD/WN, Obese HEENT: PERRL/EOMI, Pharynx Normal Neck: Full Range of Motion, Normal Inspection, Non Tender Cardiovascular: Regular Rate, Rhythm, No Edema, No JVD Respiratory: Lungs Clear, Normal Breath Sounds, No Accessory Muscle Use Gastrointestinal: Normal Bowel Sounds, Non Tender, Soft Back: No Vertebral Tenderness Extremity: Normal Capillary Refill, Normal Inspection, Normal Range of Motion, No Pedal Edema Neurologic/Psychiatric: Alert, Oriented x3, No Motor/Sensory Deficits, Normal Mood/Affect Skin: Normal Color, Warm/Dry Progress/Results/Core Measures Results/Orders Lab Results Laboratory Tests Test 10/23/19 08:53 10/23/19 09:15 Range/Units Urine Color YELLOW Urine Clarity SLT CLOUDY Urine pH 7.0 5-9 Urine Specific [place] 1.020 1.016-1.022 Urine Protein 2+ H NEGATIVE Urine Glucose (UA) NEGATIVE NEGATIVE Urine Ketones NEGATIVE NEGATIVE Urine Nitrite NEGATIVE NEGATIVE Urine Bilirubin NEGATIVE NEGATIVE Urine Urobilinogen 0.2 < = 1.0 MG/DL Urine Leukocyte Esterase NEGATIVE NEGATIVE Urine RBC (Auto) TRACE H NEGATIVE Urine RBC RARE /HPF Urine WBC NONE /HPF Urine Squamous Epithelial Cells 10-25 H /HPF Urine Crystals NONE /LPF Urine Bacteria NEGATIVE /HPF Urine Casts NONE /LPF Urine Mucus NONE /LPF Urine Culture Indicated NO Urine Test NEGATIVE NEGATIVE White Blood Count 8.2 4.3-11.0 10^3/uL Red Blood Count 4.83 4.35-5.85 10^6/uL Hemoglobin 13.8 11.5-16.0 G/DL Hematocrit 41 35-52 % Mean Corpuscular Volume 86 80-99 FL Mean Corpuscular Hemoglobin 29 25-34 PG Mean Corpuscular Hemoglobin Concent 33 32-36 G/DL Red Cell Distribution Width 14.7 H 10.0-14.5 % Platelet Count 327 130-400 10^3/uL Mean Platelet Volume 9.0 7.4-10.4 FL Neutrophils (%) (Auto) 50 42-75 % Lymphocytes (%) (Auto) 40 12-44 % Monocytes (%) (Auto) 8 0-12 % Eosinophils (%) (Auto) 2 0-10 % Basophils (%) (Auto) 1 0-10 % Neutrophils # (Auto) 4.1 1.8-7.8 X 10^3 Lymphocytes # (Auto) 3.3 1.0-4.0 X 10^3 Monocytes # (Auto) 0.6 0.0-1.0 X 10^3 Eosinophils # (Auto) 0.2 0.0-0.3 10^3/uL Basophils # (Auto) 0.0 0.0-0.1 10^3/uL Sodium Level 136 135-145 MMOL/L Potassium Level 3.7 3.6-5.0 MMOL/L Chloride Level 103 98-107 MMOL/L Carbon Dioxide Level 22 21-32 MMOL/L Anion Gap 11 5-14 MMOL/L Blood Urea Nitrogen 16 7-18 MG/DL Creatinine 1.71 H 0.60-1.30 MG/DL Estimat Glomerular Filtration Rate 42 BUN/Creatinine Ratio 9 Glucose Level 110 H 70-105 MG/DL Calcium Level 8.8 8.5-10.1 MG/DL Corrected Calcium 8.9 8.5-10.1 MG/DL Total Bilirubin < 0.2 0.1-1.0 MG/DL Aspartate Amino Transf (AST/SGOT) 14 5-34 U/L Alanine Aminotransferase (ALT/SGPT) 10 0-55 U/L Alkaline Phosphatase 73 40-136 U/L Total Protein 7.0 6.4-8.2 GM/DL Albumin 3.9 3.2-4.5 GM/DL Lipase 37 8-78 U/L My Orders Orders - JULEE YOUNG DO Cbc With Automated Diff (10/23/19 08:58) Comprehensive Metabolic Panel (10/23/19 08:58) Lipase (10/23/19 08:58) Ua Culture If Indicated (10/23/19 08:58) Ed Iv/Invasive Line Start (10/23/19 08:58) Hcg,Qualitative Urine (10/23/19 09:08) Ct Abdomen/Pelvis Wo (10/23/19 09:10) Ns Iv 1000 Ml (Sodium Chloride 0.9%) (10/23/19 09:15) Vital Signs/I&O 10/23/19 08:55 Temp 36.5 Pulse 77 Resp 18 B/P (MAP) 154/99 (117) Pulse Ox 99 O2 Delivery Room Air Blood Pressure Mean: 117 POS Progress Progress Note : Progress Note @1018 patient updated on lab and imaging results which are acutely unremarkable. She appears comfortable and states that she is having no pain currently. Workup today fails reveal any emergent pathology. The patient's creatinine is noted to be elevated but is consistent with her baseline. Advised the patient to follow up with her PCP in the next 1-2 days and to return to the emergency Department immediately for new or worsening symptoms. The patient expresses verbal understanding and agreement with the plan and is stable for discharge. Diagnostic Imaging Diagonstic Imaging: CT Comments [facility] POS [place], [place] POS NAME: SAL PRIEST [facility] REC#: [id number] PT STATUS: REG ER : 1990 PHYSICIAN: JULEE YOUNG DO ADMIT DATE: 10/23/19/ER FS Draft POSDate of Exam:10/23/19 CT ABDOMEN/PELVIS WO PROCEDURE: CT abdomen and pelvis without contrast. TECHNIQUE: Multiple contiguous axial images were obtained through the abdomen and pelvis without the use of intravenous contrast. Auto Exposure Controls were utilized during the CT exam to meet ALARA standards for radiation dose reduction. INDICATION: Lower back and flank pain on the left. Symptoms recurrent over the past few weeks with sensation of burning. No known injury. No priors for direct comparison. Correlation limited to overlapped upper abdominal cuts from chest CT 05/09/2019 FINDINGS: There are no radiopaque urinary tract calculi. There is no hydroureteronephrosis. Extra ureteral pelvic phleboliths noted incidentally. The uterus, adnexa and unopacified urinary bladder appeared normal. The appendix is normal. There is no diverticulitis. No bowel, biliary or urinary tract obstruction. No ascites, abscess, hematoma or fluid collection. There is a tiny fatty umbilical hernia without inflammation. The abdominal wall otherwise intact. There are mild degenerative changes to the L5-S1 junction of the lumbar spine. No high-grade lumbar canal or appreciable foraminal stenosis. No acute appearing bony abnormality. No focal inflammatory process. IMPRESSION: No obstructive features, inflammatory process, fluid collection, ascites or acute abnormalities identified. Dictated on workstation # [id number] Dict: 10/23/19 0947 Trans: 10/23/19 0954 [id number] Interpreted by: RENÉE GALLEGOS Electronically signed by: Departure Impression Primary Impression: Left flank pain Disposition: HOME, SELF-CARE Condition: Stable Departure-Patient Inst. Decision time for Depature: 10:24 Referrals: MOUNIKA RIGGS MD (PCP/Family) Primary Care Physician Patient Instructions: Flank Pain (DC) Add. Discharge Instructions: Follow-up with your doctor in the next 1-2 days. Take ibuprofen for pain relief is needed. Return to the emergency Department immediately for new or worsening symptoms. JULEE YOUNG DO Oct 23, 2019 09:23 POS
[2019-10-23 09:24] LABS: WHITE BLOOD COUNT 8.2 10^3/uL (4.3-11.0)
[2019-10-23 09:25] LABS: BASOPHILS % (AUTO) 1 % (0-10); EOSINOPHILS # (AUTO) 0.2 10^3/uL (0.0-0.3); EOSINOPHILS % (AUTO) 2 % (0-10); HEMATOCRIT 41 % (35-52); HEMOGLOBIN 13.8 G/DL (11.5-16.0); LYMPHOCYTES # (AUTO) 3.3 X 10^3 (1.0-4.0); LYMPHOCYTES % (AUTO) 40 % (12-44); MEAN CORPUSCULAR HEMOGLOBIN 29 PG (25-34); MEAN CORPUSCULAR HGB CONC 33 G/DL (32-36); MEAN CORPUSCULAR VOLUME 86 FL (80-99); MONOCYTES # (AUTO) 0.6 X 10^3 (0.0-1.0); MONOCYTES % (AUTO) 8 % (0-12); NEUTROPHILS # (AUTO) 4.1 X 10^3 (1.8-7.8); NEUTROPHILS % (AUTO) 50 % (42-75); PLATELET COUNT 327 10^3/uL (130-400); RED CELL DISTRIBUTION WIDTH 14.7 % (10.0-14.5)
[2019-10-23 09:44] LABS: BUN/CREATININE RATIO 9; CARBON DIOXIDE 22 MMOL/L (21-32); CHLORIDE 103 MMOL/L (98-107); CREATININE SERUM 1.71 MG/DL (0.60-1.30); GFR ESTIMATED 42; POTASSIUM 3.7 MMOL/L (3.6-5.0); SODIUM 136 MMOL/L (135-145)
[2019-10-23 09:45] LABS: ALANINE AMINOTRANSFERASE 10 U/L (0-55); ALBUMIN 3.9 GM/DL (3.2-4.5); ALKALINE PHOSPHATASE 73 U/L (40-136); BILIRUBIN,TOTAL < 0.2 MG/DL (0.1-1.0); CALCIUM 8.8 MG/DL (8.5-10.1); GLUCOSE 110 MG/DL (70-105); LIPASE 37 U/L (8-78)
--- NOTE | 2019-10-23 09:54 | Diagnostic Imaging Report ---
PROCEDURE: CT abdomen and pelvis without contrast. TECHNIQUE: Multiple contiguous axial images were obtained through the abdomen and pelvis without the use of intravenous contrast. Auto Exposure Controls were utilized during the CT exam to meet ALARA standards for radiation dose reduction. INDICATION: Lower back and flank pain on the left. Symptoms recurrent over the past few weeks with sensation of burning. No known injury. No priors for direct comparison. Correlation limited to overlapped upper abdominal cuts from chest CT 05/09/2019 FINDINGS: There are no radiopaque urinary tract calculi. There is no hydroureteronephrosis. Extra ureteral pelvic phleboliths noted incidentally. The uterus, adnexa and unopacified urinary bladder appeared normal. The appendix is normal. There is no diverticulitis. No bowel, biliary or urinary tract obstruction. No ascites, abscess, hematoma or fluid collection. There is a tiny fatty umbilical hernia without inflammation. The abdominal wall otherwise intact. There are mild degenerative changes to the L5-S1 junction of the lumbar spine. No high-grade lumbar canal or appreciable foraminal stenosis. No acute appearing bony abnormality. No focal inflammatory process. IMPRESSION: No obstructive features, inflammatory process, fluid collection, ascites or acute abnormalities identified. Dictated by: Dictated on workstation # [id number]
[2019-10-23 10:49] VITALS: BP 155/97
== END 2019-10-23 10:49 | disposition home or self-care (01) ==
LOC: EDUNIT# 08:50 → ER FS 08:51
DX: R10.9 Unspecified abdominal pain (principal); I10 Essential (primary) hypertension; F41.9 Anxiety disorder, unspecified; F31.9 Bipolar disorder, unspecified; D64.9 Anemia, unspecified; K21.9 Gastro-esophageal reflux disease without esophagitis; Z88.8 Allergy status to other drugs, medicaments and biological substances; Z79.01 Long term (current) use of anticoagulants; Z86.73 Personal history of transient ischemic attack (TIA), and cerebral infarction without residual deficits; Z95.810 Presence of automatic (implantable) cardiac defibrillator; Z79.52 Long term (current) use of systemic steroids; Z87.891 Personal history of nicotine dependence; Z93.0 Tracheostomy status
CPT/HCPCS: 36415; 74176; 80053; 81000; 83690; 84703; 85025; 96360

== ENCOUNTER 2019-11-04 16:39 | Emergency (ER) | payer MEDICAID ==
[~2019-11-04] VITALS: Ht 160 cm; Wt 116.1 kg
[~2019-11-04 16:39] MED LIST changes: -SACU1TAB; +SACU1TAB2
[2019-11-04] MEDS ORDERED: fentaNYL INJECTION 100 MCG/2 ML AMP IVP ONE (17:00)
--- NOTE | 2019-11-04 17:02 | ED Back Pain ---
General Stated Complaint: RT SIDED PAIN Source of Information: Patient, Family Exam Limitations: No Limitations History of Present Illness Date Seen by Provider: Nov 04, 2019 Time Seen by Provider: 16:45 Initial Comments Patient presents to ER by private conveyance with family and chief complaint of left flank pain intermittently for the past 2 weeks. Today it was getting worse so she decided to come in to get checked out. She has no dysuria, fever, diarrhea, nausea. She was here on the 2 weeks ago and was worked up extensively with CT imaging, labs and urinalysis are all unremarkable. She describes it as a burning sensation comes and goes. She took Tylenol 4 tablets of regular strength this morning with no benefit. She took 800 mg ibuprofen with mild relief of pain about 8 hours ago. No heating pads, ice or topical creams. No rash. She has a history of hypertension and uses clonidine 0.2 mg as needed for high blood pressure which she took just before coming in to the ER. She has an AICD. Allergies and Home Medications Allergies Coded Allergies: JIA Inhibitors (Verified Allergy, Severe, 05/22/19) ARB-Angiotensin Receptor Antagonist (Verified Allergy, Severe, 05/22/19) baclofen (Unverified Allergy, Unknown, 05/22/19) ON H&P phenazopyridine (Unverified Allergy, Unknown, 05/22/19) ON H&P Home Medications Albuterol Sulfate 8 Gm Hfa.aer.ad, 2 PUFF INH Q6H PRN for SHORTNESS OF BREATH, (Reported) Amlodipine Besylate 10 Mg Tablet, 10 MG PO DAILY, (Reported) Apixaban 5 Mg Tablet, 5 MG PO BID Prescribed by: RALPH DELCID on 11/01/18 185 Doxycycline Hyclate 100 Mg Tablet, 100 MG PO BID Prescribed by: MOIZ MARLEY on 08/28/191745 Fluconazole 100 Mg Tablet, 100 MG PO Q48H Prescribed by: MOIZ MARLEY on 08/28/191745 Methylprednisolone 4 Mg Tab, 4 MG PO UD as directed per dose pack Prescribed by: ANTONIO CALLEJAS on 08/15/19 184 Metoprolol Tartrate 50 Mg Tablet, 50 MG PO BID Prescribed by: FELECIA FORTUNE on 07/24/15 0843 Patient Home Medication List Home Medication List Reviewed: Yes Review of Systems Constitutional: No chills, No diaphoresis, No fever EENTM: No ear discharge, No ear pain Respiratory: No cough, No short of breath Cardiovascular: No chest pain, No palpitations Gastrointestinal: No abdominal pain, No constipation, No diarrhea Genitourinary: No discharge, No dysuria Musculoskeletal: see HPI, back pain; No joint pain Skin: No pruritus, No rash Psychiatric/Neurological: Denies Anxiety, Denies Depressed All Other Systems Reviewed Negative Unless Noted: Yes Past Rrvowpl-Jmkibl-Ewrcpk Hx Patient Social History Alcohol Use: Denies Use Recreational Drug Use: No Smoking Status: Current Everyday Smoker Type Used: Cigarettes 2nd Hand Smoke Exposure: No Recent Hopitalizations: No Immunizations Up To Date Tetanus Booster (TDap): Unknown PED Vaccines UTD: Yes Date of Pneumonia Vaccine: Sep 09, 2018 Date of Influenza Vaccine: Aug 19, 2015 Seasonal Allergies Seasonal Allergies: No Past Medical History Surgeries: Yes (DEFIBRILLATOR PLACED 05/10/19. PEG TUBE--REMOVED, uterine ablation) Abdominal, Section, Defibrillator, Gallbladder, Tracheostomy Respiratory: Yes (ARDS-CODED; PNEUMOTHORAX 06/2015) Pneumonia, Chronic Bronchitis Currently Using CPAP: No Currently Using BIPAP: No Cardiac: Yes (PULMONARY EDEMA/CARDIAC CAUSE-R/T ATRIAL THROMBUS; CARDIAC ARREST;V-FIB ) Cardiomyopathy, Endocarditis, Hypertension, Valvular Heart Disease Neurological: Yes (encephalopathy-hypoxia, anoxic brain injury) Reproductive Disorders: No Sexually Transmitted Disease: No Genitourinary: Yes Renal Failure Gastrointestinal: Yes Gastroesophageal Reflux Musculoskeletal: Yes (GAIT DISTURBANCE) Endocrine: No HEENT: No Loss of Vision: Denies Hearing Impairment: Denies Cancer: No Psychosocial: Yes (per med record) Anxiety, Bipolar, Depression Integumentary: No Blood Disorders: Yes (ANEMIA) Family Medical History Patient reports no known family medical history. No Pertinent Family Hx Physical Exam Vital Signs Capillary Refill : Height, Weight, BMI Height: 5'3.00" Weight: 234lbs. 0oz. 106.107254zk; 42.00 BMI Method:Stated General Appearance: No Apparent Distress, Chronically ill, Obese HEENT: PERRL/EOMI, Pharynx Normal, Moist Mucous Membranes Neck: Full Range of Motion, Normal Inspection, Non Tender Cardiovascular: Regular Rate, Rhythm, No Edema, Normal Peripheral Pulses Respiratory: Lungs Clear, Normal Breath Sounds, No Accessory Muscle Use, No Respiratory Distress Peripheral Pulses: 2+ Dorsalis Pedis (R), 2+ Left Dors-Pedis (L), 2+ Radial Pulses (R), 2+ Radial Pulses (L) Gastrointestinal: Normal Bowel Sounds, No Organomegaly, Non Tender, Soft Back: Normal Inspection, No CVA Tenderness, No Vertebral Tenderness, Other (left-sided paravertebral tenderness to palpation.) Extremity: Normal Capillary Refill, Normal Inspection Neurologic/Psychiatric: Alert, Oriented x3, Depressed Affect Skin: Normal Color, Warm/Dry Progress/Results/Core Measures Results/Orders Lab Results Laboratory Tests Test 11/04/19 16:45 11/04/19 17:05 Range/Units Urine Color YELLOW Urine Clarity SLIGHTLY CLOUDY Urine pH 6.0 5-9 Urine Specific [place] >=1.030 1.016-1.022 Urine Protein 2+ H NEGATIVE Urine Glucose (UA) NEGATIVE NEGATIVE Urine Ketones NEGATIVE NEGATIVE Urine Nitrite NEGATIVE NEGATIVE Urine Bilirubin NEGATIVE NEGATIVE Urine Urobilinogen 0.2 < = 1.0 MG/DL Urine Leukocyte Esterase NEGATIVE NEGATIVE Urine RBC (Auto) NEGATIVE NEGATIVE Urine RBC NONE /HPF Urine WBC 5-10 H /HPF Urine Squamous Epithelial Cells TNTC H /HPF Urine Crystals NONE /LPF Urine Bacteria LARGE H /HPF Urine Casts NONE /LPF Urine Mucus MODERATE H /LPF Urine Culture Indicated NO Urine Opiates Screen NEGATIVE NEGATIVE Urine Oxycodone Screen NEGATIVE NEGATIVE Urine Methadone Screen NEGATIVE NEGATIVE Urine Propoxyphene Screen NEGATIVE NEGATIVE Urine Barbiturates Screen NEGATIVE NEGATIVE Ur Tricyclic Antidepressants Screen NEGATIVE NEGATIVE Urine Phencyclidine Screen NEGATIVE NEGATIVE Urine Amphetamines Screen NEGATIVE NEGATIVE Urine Methamphetamines Screen POSITIVE H NEGATIVE Urine Benzodiazepines Screen NEGATIVE NEGATIVE Urine Cocaine Screen NEGATIVE NEGATIVE Urine Cannabinoids Screen NEGATIVE NEGATIVE White Blood Count 6.5 4.3-11.0 10^3/uL Red Blood Count 4.75 4.35-5.85 10^6/uL Hemoglobin 13.6 11.5-16.0 G/DL Hematocrit 42 35-52 % Mean Corpuscular Volume 88 80-99 FL Mean Corpuscular Hemoglobin 29 25-34 PG Mean Corpuscular Hemoglobin Concent 33 32-36 G/DL Red Cell Distribution Width 14.7 H 10.0-14.5 % Platelet Count 341 130-400 10^3/uL Mean Platelet Volume 8.8 7.4-10.4 FL Neutrophils (%) (Auto) 48 42-75 % Lymphocytes (%) (Auto) 41 12-44 % Monocytes (%) (Auto) 7 0-12 % Eosinophils (%) (Auto) 3 0-10 % Basophils (%) (Auto) 1 0-10 % Neutrophils # (Auto) 3.1 1.8-7.8 X 10^3 Lymphocytes # (Auto) 2.7 1.0-4.0 X 10^3 Monocytes # (Auto) 0.5 0.0-1.0 X 10^3 Eosinophils # (Auto) 0.2 0.0-0.3 10^3/uL Basophils # (Auto) 0.0 0.0-0.1 10^3/uL Sodium Level 140 135-145 MMOL/L Potassium Level 3.9 3.6-5.0 MMOL/L Chloride Level 105 98-107 MMOL/L Carbon Dioxide Level 25 21-32 MMOL/L Anion Gap 10 5-14 MMOL/L Blood Urea Nitrogen 10 7-18 MG/DL Creatinine 1.66 H 0.60-1.30 MG/DL Estimat Glomerular Filtration Rate 44 BUN/Creatinine Ratio 6 Glucose Level 115 H 70-105 MG/DL Calcium Level 9.1 8.5-10.1 MG/DL Corrected Calcium 9.4 8.5-10.1 MG/DL Total Bilirubin 0.2 0.1-1.0 MG/DL Aspartate Amino Transf (AST/SGOT) 16 5-34 U/L Alanine Aminotransferase (ALT/SGPT) 12 0-55 U/L Alkaline Phosphatase 72 40-136 U/L Total Protein 6.5 6.4-8.2 GM/DL Albumin 3.6 3.2-4.5 GM/DL My Orders Orders - ANTONIO CALLEJAS Ua Culture If Indicated (11/04/19 16:44) Urine Bedside (11/04/19 16:44) Drug Screen Stat (Urine) (11/04/19 16:53) Fentanyl Injection (Sublimaze Injection (11/04/19 17:00) Cbc With Automated Diff (11/04/19 16:57) Comprehensive Metabolic Panel (11/04/19 16:57) Bupivacaine 0.5% Injection (Sensorcaine (11/04/19 17:45) Lidocaine/Epi 2% 1:100,000 (Xylocaine/Ep (11/04/19 17:45) Methylprednisolone Acetate Inj (Depo-Med (11/04/19 17:45) Medications Given in ED Current Medications Medications Dose Ordered Sig/Mikal Route Start Time Stop Time Status Last Admin Dose Admin Fentanyl Citrate 50 mcg ONCE ONCE IVP 11/04/19 17:00 11/04/19 17:01 DC 11/04/19 17:15 50 MCG Progress Progress Note #1: Time: 17:20 Progress Note No evidence of rash to suggest shingles. Could be back pain organic to musculoskeletal. Her previous workup included urine blood and CT which produced no pathology. We will repeat some urine and blood work and if it does not look alarming and as this is the same pain we will just offer her a shot of steroids and lidocaine/Marcaine mixture for point tenderness around the L5-S1 facet joint. Progress Note #2: Time: 17:57 Progress Note Blood work unremarkable. Vital signs unremarkable. She's feeling much better after the pain medicine. Her blood pressure has much improved to 147/97 out of her clonidine has kicked in and her pain is under better control. We offered to do a steroid and lidocaine/Marcaine shot in her back but she has declined she does not want shot. She would prefer pills so put her on some prednisone for the next couple days. Departure Impression Primary Impression: Lumbago Qualified Codes: M54.5 - Low back pain Additional Impression: Hypertension Qualified Codes: I10 - Essential (primary) hypertension Disposition: 01 HOME, SELF-CARE Condition: Improved Departure-Patient Inst. Decision time for Depature: 17:58 Referrals: MOUNIKA RIGGS MD (PCP/Family) Primary Care Physician Patient Instructions: Low Back Pain (DC) Add. Discharge Instructions: Obtain a back brace and use heating pads as well as ice packs for your back. Topical creams such as icy hot or Biofreeze can be helpful. Tylenol 1000 mg every 8 hours can be helpful. Prednisone 2 tablets daily for the next 5 days. Follow-up with primary care in 1-2 weeks if not seeing improvement. Scripts Prednisone (Prednisone) 20 Mg Tab 40 MG PO DAILY for 5 Days, #10 TAB 0 Refills Prov: ANTONIO CALLEJAS 11/04/19 ANTONIO CALLEJAS Nov 04, 2019 17:02 POS
[2019-11-04 17:07] LABS: BACTERIA,URINE LARGE /HPF; BILIRUBIN,URINE NEGATIVE (NEGATIVE); CLARITY,URINE SLIGHTLY CLOUDY; COLOR,URINE YELLOW; GLUCOSE, URINE (UA) NEGATIVE (NEGATIVE); KETONES,URINE NEGATIVE (NEGATIVE); LEUKOCYTE ESTERASE ,URINE NEGATIVE (NEGATIVE); NITRITE,URINE NEGATIVE (NEGATIVE); PROTEIN,URINE 2+ (NEGATIVE)
[2019-11-04 17:08] LABS: SQUAMOUS EPITHELIAL CELL,UR TNTC /HPF
[2019-11-04 17:24] LABS: BASOPHILS % (AUTO) 1 % (0-10); EOSINOPHILS # (AUTO) 0.2 10^3/uL (0.0-0.3); EOSINOPHILS % (AUTO) 3 % (0-10); HEMATOCRIT 42 % (35-52); HEMOGLOBIN 13.6 G/DL (11.5-16.0); LYMPHOCYTES # (AUTO) 2.7 X 10^3 (1.0-4.0); LYMPHOCYTES % (AUTO) 41 % (12-44); MEAN CORPUSCULAR HEMOGLOBIN 29 PG (25-34); MEAN CORPUSCULAR HGB CONC 33 G/DL (32-36); MEAN CORPUSCULAR VOLUME 88 FL (80-99); MEAN PLATELET VOLUME 8.8 FL (7.4-10.4); MONOCYTES # (AUTO) 0.5 X 10^3 (0.0-1.0); MONOCYTES % (AUTO) 7 % (0-12); NEUTROPHILS # (AUTO) 3.1 X 10^3 (1.8-7.8); NEUTROPHILS % (AUTO) 48 % (42-75); PLATELET COUNT 341 10^3/uL (130-400); RED CELL DISTRIBUTION WIDTH 14.7 % (10.0-14.5); WHITE BLOOD COUNT 6.5 10^3/uL (4.3-11.0)
[2019-11-04 17:32] LABS: AMPHETAMINE SCREEN, URINE NEGATIVE (NEGATIVE); BARBITURATE SCREEN URINE NEGATIVE (NEGATIVE); BENZODIAZEPINES SCREEN URINE NEGATIVE (NEGATIVE); CANNABINOID SCREEN, URINE NEGATIVE (NEGATIVE); COCAINE SCREEN URINE NEGATIVE (NEGATIVE); METHADONE STAT NEGATIVE (NEGATIVE); METHAMPHETAMINE SCREEN URINE S POSITIVE (NEGATIVE); OPIATE SCREEN URINE NEGATIVE (NEGATIVE); OXYCODONE STAT NEGATIVE (NEGATIVE); PROPOXYPHENE STAT NEGATIVE (NEGATIVE); TRICYCLIC ANTIDEPRESSANTS SCRE NEGATIVE (NEGATIVE)
[2019-11-04 17:45] LABS: CREATININE SERUM 1.66 MG/DL (0.60-1.30); POTASSIUM 3.9 MMOL/L (3.6-5.0)
[2019-11-04] MEDS ORDERED: BUPIVACAINE 0.5% 30 ML (SENSORCAINE) VIAL INJ ONE (17:45)
[2019-11-04] MEDS ORDERED: LIDOCAINE/EPI 2% 1:100,00 (XYLOCAINE) 20 ML VIAL INJ ONE (17:45)
[2019-11-04] MEDS ORDERED: methylPREDNISolone 40 MG/ML (DEPO MEDROL) VIAL IA ONE (17:45)
[2019-11-04 17:46] LABS: ALBUMIN 3.6 GM/DL (3.2-4.5); BILIRUBIN,TOTAL 0.2 MG/DL (0.1-1.0); CALCIUM 9.1 MG/DL (8.5-10.1); TOTAL PROTEIN 6.5 GM/DL (6.4-8.2)
[2019-11-04] MEDS ORDERED: PRD20T PO (17:59)
[2019-11-04] MEDS ORDERED: predniSONE 20 MG TAB PO ONE (18:00)
[2019-11-04 18:15] VITALS: BP 147/97
== END 2019-11-04 18:15 | disposition home or self-care (01) ==
LOC: EDUNIT# 16:39 → ER FS 16:40
DX: M54.5 Low back pain (principal); I10 Essential (primary) hypertension; J42 Unspecified chronic bronchitis; I42.9 Cardiomyopathy, unspecified; K21.9 Gastro-esophageal reflux disease without esophagitis; F41.9 Anxiety disorder, unspecified; F31.9 Bipolar disorder, unspecified; F17.210 Nicotine dependence, cigarettes, uncomplicated; Z95.810 Presence of automatic (implantable) cardiac defibrillator; Z88.8 Allergy status to other drugs, medicaments and biological substances; Z88.5 Allergy status to narcotic agent; Z93.0 Tracheostomy status
CPT/HCPCS: 36415; 80053; 80306; 81000; 85025; 96374

== ENCOUNTER 2019-11-29 22:02 | Emergency (ER) | payer MEDICAID ==
[~2019-11-29] VITALS: Ht 160 cm; Wt 111.0 kg
[~2019-11-29 22:02] MED LIST changes: +PRD20T PO; +SACU1TAB; -SACU1TAB2
--- NOTE | 2019-11-29 22:17 | ED Abdominal Pain ---
General Stated Complaint: LOWER ABD PAIN Source of Information: Patient Exam Limitations: No Limitations History of Present Illness Date Seen by Provider: Nov 29, 2019 Time Seen by Provider: 22:16 Initial Comments Patient complains of lower abdominal pain on the right side since this morning. Pain is described as a dull ache. It is worse with movement. She's had diarrhea. She denies fevers chills or vomiting. She thinks she still has her appendix. Gallbladder is out. Allergies and Home Medications Allergies Coded Allergies: JIA Inhibitors (Verified Allergy, Severe, 05/22/19) ARB-Angiotensin Receptor Antagonist (Verified Allergy, Severe, 05/22/19) baclofen (Unverified Allergy, Unknown, 05/22/19) ON H&P phenazopyridine (Unverified Allergy, Unknown, 05/22/19) ON H&P Home Medications Albuterol Sulfate 8 Gm Hfa.aer.ad, 2 PUFF INH Q6H PRN for SHORTNESS OF BREATH, (Reported) Amlodipine Besylate 10 Mg Tablet, 10 MG PO DAILY, (Reported) Apixaban 5 Mg Tablet, 5 MG PO BID Prescribed by: RALPH DELCID on 11/01/18 185 Doxycycline Hyclate 100 Mg Tablet, 100 MG PO BID Prescribed by: MOIZ MARLEY on 08/28/19 174 Fluconazole 100 Mg Tablet, 100 MG PO Q48H Prescribed by: MOIZ MARLEY on 08/28/19 174 Methylprednisolone 4 Mg Tab, 4 MG PO UD as directed per dose pack Prescribed by: ANTONIO CALLEJAS on 08/15/19 1841 Metoprolol Tartrate 50 Mg Tablet, 50 MG PO BID Prescribed by: FELECIA FORTUNE on 07/24/15 0841 Prednisone 20 Mg Tab, 40 MG PO DAILY Prescribed by: ANTONIO CALLEJAS on 11/04/19 1759 Patient Home Medication List Home Medication List Reviewed: Yes Review of Systems Review of Systems Constitutional: no symptoms reported EENTM: No Symptoms Reported Respiratory: No Symptoms Reported Cardiovascular: No Symptoms Reported Gastrointestinal: Abdominal Pain, Diarrhea Genitourinary: No Symptoms Reported All Other Systems Reviewed Negative Unless Noted: Yes Past Uelpayw-Ceatad-[place] Hx Patient Social History Type Used: Cigarettes 2nd Hand Smoke Exposure: No Recent Foreign Travel: No Contact w/Someone Who Travel: No Recent Hopitalizations: No Immunizations Up To Date Tetanus Booster (TDap): Unknown PED Vaccines UTD: Yes Date of Pneumonia Vaccine: Sep 09, 2018 Date of Influenza Vaccine: Aug 19, 2015 Seasonal Allergies Seasonal Allergies: No Past Medical History Surgeries: Yes (DEFIBRILLATOR PLACED 05/10/19. PEG TUBE--REMOVED, uterine ablation) Abdominal, Section, Defibrillator, Gallbladder, Tracheostomy Respiratory: Yes (ARDS-CODED; PNEUMOTHORAX 06/2015) Pneumonia, Chronic Bronchitis Currently Using CPAP: No Currently Using BIPAP: No Cardiac: Yes (PULMONARY EDEMA/CARDIAC CAUSE-R/T ATRIAL THROMBUS; CARDIAC ARREST;V-FIB ) Cardiomyopathy, Endocarditis, Hypertension, Valvular Heart Disease Neurological: Yes (encephalopathy-hypoxia, anoxic brain injury) Reproductive Disorders: No Sexually Transmitted Disease: No Genitourinary: Yes Renal Failure Gastrointestinal: Yes Gastroesophageal Reflux Musculoskeletal: Yes (GAIT DISTURBANCE) Endocrine: No HEENT: No Loss of Vision: Denies Hearing Impairment: Denies Cancer: No Psychosocial: Yes (per med record) Anxiety, Bipolar, Depression Integumentary: No Blood Disorders: Yes (ANEMIA) Family Medical History Patient reports no known family medical history. No Pertinent Family Hx Physical Exam Vital Signs Vital Signs - First Documented 11/29/19 22:05 Temp 36.4 Pulse 74 Resp 16 B/P (MAP) 156/99 (118) Pulse Ox 97 O2 Delivery Room Air Capillary Refill : Height/Weight/BMI Height: 5'3.00" Weight: 234lbs. 0oz. 106.942284ld; 45.00 BMI Method:Stated General Appearance: WD/WN, no apparent distress Neck: supple Respiratory: lungs clear, normal breath sounds Cardiovascular: regular rate, rhythm Gastrointestinal: soft, tenderness (mild right lower quadrant groin tenderness) Extremities: normal inspection Neurologic/Psychiatric: alert, normal mood/affect Skin: normal color, warm/dry Progress/Results/Core Measures Results/Orders Lab Results Laboratory Tests Test 11/29/19 22:07 11/29/19 22:17 Range/Units Urine Color DARK YELLOW Urine Clarity CLEAR Urine pH 6.0 5-9 Urine Specific [place] >=1.030 1.016-1.022 Urine Protein 3+ H NEGATIVE Urine Glucose (UA) NEGATIVE NEGATIVE Urine Ketones NEGATIVE NEGATIVE Urine Nitrite NEGATIVE NEGATIVE Urine Bilirubin NEGATIVE NEGATIVE Urine Urobilinogen 0.2 < = 1.0 MG/DL Urine Leukocyte Esterase NEGATIVE NEGATIVE Urine RBC (Auto) TRACE H NEGATIVE Urine RBC 0-2 /HPF Urine WBC 2-5 /HPF Urine Squamous Epithelial Cells 10-25 H /HPF Urine Crystals NONE /LPF Urine Bacteria MODERATE H /HPF Urine Casts PRESENT /LPF Urine Hyaline Casts 2-5 H /LPF Urine Mucus MODERATE H /LPF Urine Culture Indicated NO Urine Test NEGATIVE NEGATIVE White Blood Count 7.2 4.3-11.0 10^3/uL Red Blood Count 4.68 4.35-5.85 10^6/uL Hemoglobin 13.3 11.5-16.0 G/DL Hematocrit 41 35-52 % Mean Corpuscular Volume 87 80-99 FL Mean Corpuscular Hemoglobin 28 25-34 PG Mean Corpuscular Hemoglobin Concent 33 32-36 G/DL Red Cell Distribution Width 14.9 H 10.0-14.5 % Platelet Count 340 130-400 10^3/uL Mean Platelet Volume 8.8 7.4-10.4 FL Neutrophils (%) (Auto) 40 L 42-75 % Lymphocytes (%) (Auto) 49 H 12-44 % Monocytes (%) (Auto) 8 0-12 % Eosinophils (%) (Auto) 2 0-10 % Basophils (%) (Auto) 1 0-10 % Neutrophils # (Auto) 2.9 1.8-7.8 X 10^3 Lymphocytes # (Auto) 3.5 1.0-4.0 X 10^3 Monocytes # (Auto) 0.5 0.0-1.0 X 10^3 Eosinophils # (Auto) 0.1 0.0-0.3 10^3/uL Basophils # (Auto) 0.1 0.0-0.1 10^3/uL Sodium Level 140 135-145 MMOL/L Potassium Level 3.6 3.6-5.0 MMOL/L Chloride Level 105 98-107 MMOL/L Carbon Dioxide Level 23 21-32 MMOL/L Anion Gap 12 5-14 MMOL/L Blood Urea Nitrogen 13 7-18 MG/DL Creatinine 1.90 H 0.60-1.30 MG/DL Estimat Glomerular Filtration Rate 37 BUN/Creatinine Ratio 7 Glucose Level 114 H 70-105 MG/DL Calcium Level 8.8 8.5-10.1 MG/DL Corrected Calcium 9.1 8.5-10.1 MG/DL Total Bilirubin 0.2 0.1-1.0 MG/DL Aspartate Amino Transf (AST/SGOT) 16 5-34 U/L Alanine Aminotransferase (ALT/SGPT) 10 0-55 U/L Alkaline Phosphatase 75 40-136 U/L Total Protein 6.3 L 6.4-8.2 GM/DL Albumin 3.6 3.2-4.5 GM/DL Lipase 39 8-78 U/L My Orders Orders - ORESTES VELASCO MD Cbc With Automated Diff (11/29/19 22:06) Comprehensive Metabolic Panel (11/29/19 22:06) Hcg,Qualitative Urine (11/29/19 22:06) Lipase (11/29/19 22:06) Ua Culture If Indicated (11/29/19 22:06) Vital Signs/I&O 11/29/19 22:05 Temp 36.4 Pulse 74 Resp 16 B/P (MAP) 156/99 (118) Pulse Ox 97 O2 Delivery Room Air Progress Progress Note : Time: 23:09 Progress Note Patient was sleeping when I checked on her. She is in no distress. Abdomen is soft. I think she has an enteritis. Probably viral in origin. I see no need for antibiotics. She does not have an acute abdomen. We'll prescribe Lomotil for diarrhea. Departure Impression Primary Impression: Abdominal pain Additional Impression: Diarrhea Disposition: 01 HOME, SELF-CARE Condition: Improved Departure-Patient Inst. Decision time for Depature: 23:08 Referrals: MOUNIKA RIGGS MD (PCP/Family) Primary Care Physician Patient Instructions: Diarrhea in Adolescents and Adults Add. Discharge Instructions: Clear liquids for next 24 hours. Lomotil as needed for diarrhea. Scripts Diphenoxylate HCl/Atropine (Lomotil 2.5-0.025 mg Tablet) 1 Each Tablet 1 EACH PO BID PRN for DIARRHEA, #10 TAB Prov: ORESTES VELASCO MD 11/29/19 ORESTES VELASCO MD Nov 29, 2019 22:17
[2019-11-29 22:22] LABS: BILIRUBIN,URINE NEGATIVE (NEGATIVE); CLARITY,URINE CLEAR; COLOR,URINE DARK YELLOW; GLUCOSE, URINE (UA) NEGATIVE (NEGATIVE); KETONES,URINE NEGATIVE (NEGATIVE); NITRITE,URINE NEGATIVE (NEGATIVE); PROTEIN,URINE 3+ (NEGATIVE)
[2019-11-29 22:23] LABS: BACTERIA,URINE MODERATE /HPF; LEUKOCYTE ESTERASE ,URINE NEGATIVE (NEGATIVE); RBC,URINE 0-2 /HPF
[2019-11-29 22:30] LABS: BASOPHILS % (AUTO) 1 % (0-10); EOSINOPHILS # (AUTO) 0.1 10^3/uL (0.0-0.3); EOSINOPHILS % (AUTO) 2 % (0-10); HEMATOCRIT 41 % (35-52); HEMOGLOBIN 13.3 G/DL (11.5-16.0); LYMPHOCYTES # (AUTO) 3.5 X 10^3 (1.0-4.0); LYMPHOCYTES % (AUTO) 49 % (12-44); MEAN CORPUSCULAR HEMOGLOBIN 28 PG (25-34); MEAN CORPUSCULAR HGB CONC 33 G/DL (32-36); MEAN CORPUSCULAR VOLUME 87 FL (80-99); MEAN PLATELET VOLUME 8.8 FL (7.4-10.4); MONOCYTES # (AUTO) 0.5 X 10^3 (0.0-1.0); MONOCYTES % (AUTO) 8 % (0-12); NEUTROPHILS # (AUTO) 2.9 X 10^3 (1.8-7.8); NEUTROPHILS % (AUTO) 40 % (42-75); PLATELET COUNT 340 10^3/uL (130-400); RED CELL DISTRIBUTION WIDTH 14.9 % (10.0-14.5); WHITE BLOOD COUNT 7.2 10^3/uL (4.3-11.0)
[2019-11-29 22:31] LABS: BASOPHILS # (AUTO) 0.1 10^3/uL (0.0-0.1)
[2019-11-29 22:50] LABS: ALBUMIN 3.6 GM/DL (3.2-4.5); BILIRUBIN,TOTAL 0.2 MG/DL (0.1-1.0); CALCIUM 8.8 MG/DL (8.5-10.1); CREATININE SERUM 1.9 MG/DL (0.60-1.30); POTASSIUM 3.6 MMOL/L (3.6-5.0); TOTAL PROTEIN 6.3 GM/DL (6.4-8.2)
[2019-11-29] MEDS ORDERED: DIPH1TAB PO (23:09)
[2019-11-29 23:16] VITALS: BP 149/98
== END 2019-11-29 23:16 | disposition home or self-care (01) ==
LOC: EDUNIT# 22:02 → ER FS 22:03
DX: R10.31 Right lower quadrant pain (principal); R19.7 Diarrhea, unspecified; I10 Essential (primary) hypertension; D64.9 Anemia, unspecified; K21.9 Gastro-esophageal reflux disease without esophagitis; F41.9 Anxiety disorder, unspecified; F31.9 Bipolar disorder, unspecified; Z87.820 Personal history of traumatic brain injury; Z88.8 Allergy status to other drugs, medicaments and biological substances; Z79.01 Long term (current) use of anticoagulants; Z95.810 Presence of automatic (implantable) cardiac defibrillator; Z93.0 Tracheostomy status
CPT/HCPCS: 36415; 80053; 81000; 83690; 84703; 85025

== ENCOUNTER 2019-12-27 17:56 | Emergency (ER) | payer MEDICAID ==
[~2019-12-27] VITALS: Ht 160 cm; Wt 115.0 kg
[~2019-12-27 17:56] MED LIST changes: +DIPH1TAB PO; -SACU1TAB; +SACU1TAB2
[2019-12-27] MEDS ORDERED: ONDANSETRON 4 MG/2 ML (SDV) Z0FRAN IVP STA (18:13)
[2019-12-27] MEDS ORDERED: NS IV 1000 ML 1,000 ML IV STA (18:13)
[2019-12-27] MEDS ORDERED: KETOROLAC 30 MG/ML VIAL IVP STA (18:13)
--- NOTE | 2019-12-27 18:15 | ED Abdominal Pain ---
General Chief Complaint: Abdominal/GI Problems Stated Complaint: LOWER ABD PAIN Source of Information: Patient History of Present Illness Date Seen by Provider: Dec 27, 2019 Time Seen by Provider: 18:01 Initial Comments 29 yo F presenting with RLQ abdominal pain that she states has been present off and on "for a while". She had n/v yesterday and nausea today with eating. Pain is worse when she bends over or moves. She denies any pain with urination. She has had no fever or chills. She denies any change in her bowel movements and had a bowel movement today without any change in the pain. She states that she has had similar pain off and on for over 4 years since he told her that she had a ovarian cyst on the right side. She had an uterine ablation about 5 years ago. She has had no vaginal bleeding or discharge since then. She states that she has tried Tylenol and ibuprofen without any improvement in her pain. She last took Tylenol around noon today. Her pain was not improving and was prednisone tonight that she had family bring her to the emergency department. When she had eaten a plant-based hamburger from [employer] this afternoon it had made her nauseated but she did not vomit. She states that the pain does not radiate anywhere. It is sharp in nature. Allergies and Home Medications Allergies Coded Allergies: JIA Inhibitors (Verified Allergy, Severe, 05/22/19) ARB-Angiotensin Receptor Antagonist (Verified Allergy, Severe, 05/22/19) baclofen (Unverified Allergy, Unknown, 05/22/19) ON H&P phenazopyridine (Unverified Allergy, Unknown, 05/22/19) ON H&P Home Medications Albuterol Sulfate 8 Gm Hfa.aer.ad, 2 PUFF INH Q6H PRN for SHORTNESS OF BREATH, (Reported) Amlodipine Besylate 10 Mg Tablet, 10 MG PO DAILY, (Reported) Apixaban 5 Mg Tablet, 5 MG PO BID Prescribed by: RALPH DELCID on 11/01/181855 Dicyclomine HCl 10 Mg Capsule, 10 MG PO QID PRN for abdominal pain/nausea Prescribed by: EDISON CHAMBERLAIN on 12/27/19 193 Diphenoxylate HCl/Atropine 1 Each Tablet, 1 EACH PO BID PRN for DIARRHEA Prescribed by: ORESTES VELASCO on 11/29/19 2309 Doxycycline Hyclate 100 Mg Tablet, 100 MG PO BID Prescribed by: MOIZ MARLEY on 08/28/19 174 Fluconazole 100 Mg Tablet, 100 MG PO Q48H Prescribed by: MOIZ MARLEY on 08/28/19 174 Methylprednisolone 4 Mg Tab, 4 MG PO UD as directed per dose pack Prescribed by: ANTONIO CALLEJAS on 08/15/19 1841 Metoprolol Tartrate 50 Mg Tablet, 50 MG PO BID Prescribed by: FELECIA FORTUNE on 07/24/15 0841 Prednisone 20 Mg Tab, 40 MG PO DAILY Prescribed by: ANTONIO CALLEAJS on 11/04/19 1759 Patient Home Medication List Home Medication List Reviewed: Yes Review of Systems Review of Systems Constitutional: No chills, No fever; malaise EENTM: No Symptoms Reported Respiratory: No Symptoms Reported Cardiovascular: No Symptoms Reported Gastrointestinal: See HPI Genitourinary: Denies Burning, Denies Discharge, Denies Frequency, Denies Flank Pain, Denies Hematuria, Denies Pain, Denies Urgency Musculoskeletal: No back pain Skin: no symptoms reported Psychiatric/Neurological: No Symptoms Reported Past Tyiujlz-Rrhfco-Hqnirv Hx Past Med/Social Hx: Reviewed Nursing Past Med/Soc Hx Patient Social History Type Used: Cigarettes 2nd Hand Smoke Exposure: No Recent Foreign Travel: No Contact w/Someone Who Travel: No Recent Hopitalizations: No Immunizations Up To Date Tetanus Booster (TDap): Unknown PED Vaccines UTD: Yes Date of Pneumonia Vaccine: Sep 09, 2018 Date of Influenza Vaccine: Aug 19, 2015 Seasonal Allergies Seasonal Allergies: No Past Medical History Surgeries: Yes (DEFIBRILLATOR PLACED 05/10/19. PEG TUBE--REMOVED, uterine ablation) Abdominal, Section, Defibrillator, Gallbladder, Tracheostomy Respiratory: Yes (ARDS-CODED; PNEUMOTHORAX 06/2015) Pneumonia, Chronic Bronchitis Currently Using CPAP: No Currently Using BIPAP: No Cardiac: Yes (PULMONARY EDEMA/CARDIAC CAUSE-R/T ATRIAL THROMBUS; CARDIAC ARREST;V-FIB ) Cardiomyopathy, Endocarditis, Hypertension, Valvular Heart Disease Neurological: Yes (encephalopathy-hypoxia, anoxic brain injury) Reproductive Disorders: No Sexually Transmitted Disease: No Genitourinary: Yes Renal Failure Gastrointestinal: Yes Gastroesophageal Reflux Musculoskeletal: Yes (GAIT DISTURBANCE) Endocrine: No HEENT: No Loss of Vision: Denies Hearing Impairment: Denies Cancer: No Psychosocial: Yes (per med record) Anxiety, Bipolar, Depression Integumentary: No Blood Disorders: Yes (ANEMIA) Family Medical History Patient reports no known family medical history. No Pertinent Family Hx Physical Exam Vital Signs Vital Signs - First Documented 12/27/19 18:06 Temp 36.4 Pulse 82 Resp 16 B/P (MAP) 149/97 (114) Pulse Ox 98 O2 Delivery Room Air Capillary Refill : Height/Weight/BMI Height: 5'3.00" Weight: 234lbs. 0oz. 106.355454ft; 43.00 BMI Method:Stated General Appearance: WD/WN, mild distress, obese HEENT: PERRL/EOMI, pharynx normal Neck: supple Respiratory: chest non-tender, lungs clear, normal breath sounds, no respiratory distress, no accessory muscle use Cardiovascular: normal peripheral pulses, regular rate, rhythm Gastrointestinal: normal bowel sounds, soft, no pulsatile mass; No distended, No guarding, No rebound; tenderness (RLQ without rebound or guarding), other (obese abdomen) Extremities: normal range of motion, non-tender, normal capillary refill Neurologic/Psychiatric: alert Skin: normal color, warm/dry Images 1 - area of pain. mild pain with palpation but no rebound or guarding. Progress/Results/Core Measures Results/Orders Lab Results Laboratory Tests Test 12/27/19 18:00 12/27/19 18:18 Range/Units Urine Color YELLOW Urine Clarity CLEAR Urine pH 7.0 5-9 Urine Specific [place] 1.020 1.016-1.022 Urine Protein 3+ H NEGATIVE Urine Glucose (UA) NEGATIVE NEGATIVE Urine Ketones NEGATIVE NEGATIVE Urine Nitrite NEGATIVE NEGATIVE Urine Bilirubin NEGATIVE NEGATIVE Urine Urobilinogen 0.2 < = 1.0 MG/DL Urine Leukocyte Esterase NEGATIVE NEGATIVE Urine RBC (Auto) TRACE H NEGATIVE Urine RBC 0-2 /HPF Urine WBC 2-5 /HPF Urine Squamous Epithelial Cells 25-50 H /HPF Urine Crystals NONE /LPF Urine Bacteria MODERATE H /HPF Urine Casts NONE /LPF Urine Mucus NEGATIVE /LPF Urine Culture Indicated NO White Blood Count 9.1 4.3-11.0 10^3/uL Red Blood Count 4.68 4.35-5.85 10^6/uL Hemoglobin 13.3 11.5-16.0 G/DL Hematocrit 41 35-52 % Mean Corpuscular Volume 87 80-99 FL Mean Corpuscular Hemoglobin 28 25-34 PG Mean Corpuscular Hemoglobin Concent 33 32-36 G/DL Red Cell Distribution Width 15.1 H 10.0-14.5 % Platelet Count 353 130-400 10^3/uL Mean Platelet Volume 9.1 7.4-10.4 FL Neutrophils (%) (Auto) 54 42-75 % Lymphocytes (%) (Auto) 38 12-44 % Monocytes (%) (Auto) 6 0-12 % Eosinophils (%) (Auto) 1 0-10 % Basophils (%) (Auto) 1 0-10 % Neutrophils # (Auto) 4.9 1.8-7.8 X 10^3 Lymphocytes # (Auto) 3.5 1.0-4.0 X 10^3 Monocytes # (Auto) 0.5 0.0-1.0 X 10^3 Eosinophils # (Auto) 0.1 0.0-0.3 10^3/uL Basophils # (Auto) 0.1 0.0-0.1 10^3/uL Sodium Level 140 135-145 MMOL/L Potassium Level 4.0 3.6-5.0 MMOL/L Chloride Level 103 98-107 MMOL/L Carbon Dioxide Level 25 21-32 MMOL/L Anion Gap 12 5-14 MMOL/L Blood Urea Nitrogen 18 7-18 MG/DL Creatinine 1.88 H 0.60-1.30 MG/DL Estimat Glomerular Filtration Rate 38 BUN/Creatinine Ratio 10 Glucose Level 123 H 70-105 MG/DL Calcium Level 8.9 8.5-10.1 MG/DL Corrected Calcium 9.1 8.5-10.1 MG/DL Total Bilirubin < 0.2 0.1-1.0 MG/DL Aspartate Amino Transf (AST/SGOT) 19 5-34 U/L Alanine Aminotransferase (ALT/SGPT) 13 0-55 U/L Alkaline Phosphatase 90 40-136 U/L Total Protein 6.6 6.4-8.2 GM/DL Albumin 3.7 3.2-4.5 GM/DL Lipase 37 8-78 U/L My Orders Orders - EDISON CHAMBERLAIN MD Ua Culture If Indicated (12/27/19 18:00) Urine Bedside (12/27/19 18:00) Comprehensive Metabolic Panel (12/27/19 18:13) Lipase (12/27/19 18:13) Ed Iv/Invasive Line Start (12/27/19 18:13) Cbc With Automated Diff (12/27/19 18:13) Ns Iv 1000 Ml (Sodium Chloride 0.9%) (12/27/19 18:13) Ketorolac Injection (Toradol Injection) (12/27/19 18:13) Ondansetron Injection (Zofran Injectio (12/27/19 18:13) Ct Abdomen/Pelvis Wo (12/27/19 18:13) Vital Signs/I&O 12/27/19 18:06 Temp 36.4 Pulse 82 Resp 16 B/P (MAP) 149/97 (114) Pulse Ox 98 O2 Delivery Room Air Progress Progress Note #1: Progress Note obtain urine and bedside test. give IVF for hydration, Zofran for nausea, low dose toradol 15 mg IV for possible ovarian cyst pain. Plan on CT scan of abdomen/pelvis with contrast if her renal function is stable enough. Progress Note #2: Time: 18:44 Progress Note Once the old visits were accessible on the patient, they showed that she has had multiple ED visits for abdominal pain with the most recent on Nov.29. She had a CT scan on Oct 23, 2019 for similar complaints. She has chronic renal insufficiency with GFR in mid to upper 30s and Cr around 1.8. Will change CT to non contrast study. Her bedside test is negative tonight to go along with her previous ablation. Her UA continues to show 3+ protein which is also chronic for her. CBC is stable for her and CMP shows chronic renal insufficienc y. No acute significant change from previous labs and tests. Will see what her CT scan shows and what her response to treatment here in the ED has been. Progress Note #3: Time: 19:18 Progress Note Pain better after treatment in ED. CT does not show any acute significant abnormality for her pain. She has mild increased stool and gas in proximal colon. Small fat containing umbilical hernia but no strangulation or incarceration Counseled to check with pcp about recurrent pain/symptoms and she may need outpt ultrasound or colonoscopy about her recurrent pain since she has had multiple ED visits for similar pains. Will try prn dicyclomine for pain/nausea in the meantime. Diagnostic Imaging Diagonstic Imaging: CT Plain Films/CT/US/NM/MRI: abdomen, pelvis Comments NAME: SAL PRIEST [facility] REC#: [id number] PT STATUS: REG ER : 1990 PHYSICIAN: EDISON CHAMBERLAIN MD ADMIT DATE: 12/27/19/ER FS Signed Date of Exam:12/27/19 CT ABDOMEN/PELVIS WO PROCEDURE: CT abdomen and pelvis without contrast. TECHNIQUE: Multiple contiguous axial images were obtained through the abdomen and pelvis without the use of intravenous contrast. Auto Exposure Controls were utilized during the CT exam to meet ALARA standards for radiation dose reduction. INDICATION: 29-year-old female with right lower quadrant abdominal pain, nausea and vomiting. Patient has a history of ovarian cysts and has a previous . COMPARISONS: 11/22/2019. FINDINGS: Lung bases show some minimal subpleural atelectatic infiltrates but no significant consolidations. Cardiac contour is normal. Pacer wires are seen. Liver shows uniform attenuation. Gallbladder is surgically absent. Spleen and GE junction are normal. Stomach and duodenal sweep are unremarkable. Pancreas shows sharp margins. Adrenals are normal. Kidneys appear normal in size, position and contour. There is no evidence of hydronephrosis or hydroureter. Both ureters are seen intermittently through their course and appear normal. Bladder is nondistended. Bladder wall is mildly prominent. Multiple pelvic phleboliths are seen. Uterus and adnexa are grossly normal. Nonopacified loops of small bowel are unremarkable. Appendix is normal. Large bowel contains fecal material and gas proximally. The distal colon is mostly decompressed. There is no free air, free fluid or adenopathy. The aorta shows normal caliber. There is normal origin of the visceral arteries. There is a small fat-containing umbilical hernia. IMPRESSION: 1. Surgical absence of gallbladder. 2. There is no evidence of obstructive uropathy. In addition, there is no evidence of appendicitis or other areas of peritoneal inflammation. Additional nonemergent findings as described above. Dictated by: Dictated on workstation # [id number] Dict: 12/27/191902 Trans: 12/27/191915 [id number] Interpreted by: AARON HERNANDEZ MD Electronically signed by: AARON HERNANDEZ MD 12/27/191915 Departure Impression Primary Impression: Right sided abdominal pain Disposition: HOME, SELF-CARE Condition: Stable Departure-Patient Inst. Decision time for Depature: 19:34 Referrals: MOUNIKA RIGGS MD (PCP/Family) Primary Care Physician Patient Instructions: Acute Abdomen (Belly Pain), Adult (DC) Add. Discharge Instructions: Stay well hydrated and drink plenty of fluids Check back with your regular provider about the pains. You may need an ultrasound or colonoscopy if you have continued pains/problems Try the Bentyl (Dicyclomine) for pain and nausea as needed until you can follow up All discharge instructions reviewed with patient and/or family. Voiced understanding. Scripts Dicyclomine HCl (Dicyclomine HCl) 10 Mg Capsule 10 MG PO QID PRN for abdominal pain/nausea for 10 Days, #40 CAP 0 Refills Prov: EDISON CHAMBERLAIN MD 12/27/19 EDISON CHAMBERLAIN MD Dec 27, 2019 18:15
[2019-12-27 18:31] LABS: BASOPHILS % (AUTO) 1 % (0-10); EOSINOPHILS % (AUTO) 1 % (0-10); HEMATOCRIT 41 % (35-52); HEMOGLOBIN 13.3 G/DL (11.5-16.0); LYMPHOCYTES % (AUTO) 38 % (12-44); MEAN CORPUSCULAR HEMOGLOBIN 28 PG (25-34); MEAN CORPUSCULAR HGB CONC 33 G/DL (32-36); MEAN CORPUSCULAR VOLUME 87 FL (80-99); MEAN PLATELET VOLUME 9.1 FL (7.4-10.4); MONOCYTES % (AUTO) 6 % (0-12); NEUTROPHILS % (AUTO) 54 % (42-75); PLATELET COUNT 353 10^3/uL (130-400); RED CELL DISTRIBUTION WIDTH 15.1 % (10.0-14.5); WHITE BLOOD COUNT 9.1 10^3/uL (4.3-11.0)
[2019-12-27 18:32] LABS: CLARITY,URINE CLEAR; COLOR,URINE YELLOW; PROTEIN,URINE 3+ (NEGATIVE)
[2019-12-27 18:32] LABS: BASOPHILS # (AUTO) 0.1 10^3/uL (0.0-0.1); EOSINOPHILS # (AUTO) 0.1 10^3/uL (0.0-0.3); LYMPHOCYTES # (AUTO) 3.5 X 10^3 (1.0-4.0); MONOCYTES # (AUTO) 0.5 X 10^3 (0.0-1.0); NEUTROPHILS # (AUTO) 4.9 X 10^3 (1.8-7.8)
[2019-12-27 18:33] LABS: BACTERIA,URINE MODERATE /HPF; BILIRUBIN,URINE NEGATIVE (NEGATIVE); GLUCOSE, URINE (UA) NEGATIVE (NEGATIVE); KETONES,URINE NEGATIVE (NEGATIVE); LEUKOCYTE ESTERASE ,URINE NEGATIVE (NEGATIVE); NITRITE,URINE NEGATIVE (NEGATIVE); RBC,URINE 0-2 /HPF; SQUAMOUS EPITHELIAL CELL,UR 25-50 /HPF
[2019-12-27 18:42] LABS: SODIUM 140 MMOL/L (135-145)
[2019-12-27 18:43] LABS: ALANINE AMINOTRANSFERASE 13 U/L (0-55); ALBUMIN 3.7 GM/DL (3.2-4.5); ALKALINE PHOSPHATASE 90 U/L (40-136); BILIRUBIN,TOTAL < 0.2 MG/DL (0.1-1.0); BUN/CREATININE RATIO 10; CALCIUM 8.9 MG/DL (8.5-10.1); CARBON DIOXIDE 25 MMOL/L (21-32); CHLORIDE 103 MMOL/L (98-107); CREATININE SERUM 1.88 MG/DL (0.60-1.30); GFR ESTIMATED 38; GLUCOSE 123 MG/DL (70-105); LIPASE 37 U/L (8-78); TOTAL PROTEIN 6.6 GM/DL (6.4-8.2)
--- NOTE | 2019-12-27 19:14 | Diagnostic Imaging Report ---
PROCEDURE: CT abdomen and pelvis without contrast. TECHNIQUE: Multiple contiguous axial images were obtained through the abdomen and pelvis without the use of intravenous contrast. Auto Exposure Controls were utilized during the CT exam to meet ALARA standards for radiation dose reduction. INDICATION: 29-year-old female with right lower quadrant abdominal pain, nausea and vomiting. Patient has a history of ovarian cysts and has a previous . COMPARISONS: 11/22/2019. FINDINGS: Lung bases show some minimal subpleural atelectatic infiltrates but no significant consolidations. Cardiac contour is normal. Pacer wires are seen. Liver shows uniform attenuation. Gallbladder is surgically absent. Spleen and GE junction are normal. Stomach and duodenal sweep are unremarkable. Pancreas shows sharp margins. Adrenals are normal. Kidneys appear normal in size, position and contour. There is no evidence of hydronephrosis or hydroureter. Both ureters are seen intermittently through their course and appear normal. Bladder is nondistended. Bladder wall is mildly prominent. Multiple pelvic phleboliths are seen. Uterus and adnexa are grossly normal. Nonopacified loops of small bowel are unremarkable. Appendix is normal. Large bowel contains fecal material and gas proximally. The distal colon is mostly decompressed. There is no free air, free fluid or adenopathy. The aorta shows normal caliber. There is normal origin of the visceral arteries. There is a small fat-containing umbilical hernia. IMPRESSION: 1. Surgical absence of gallbladder. 2. There is no evidence of obstructive uropathy. In addition, there is no evidence of appendicitis or other areas of peritoneal inflammation. Additional nonemergent findings as described above. Dictated by: Dictated on workstation # [id number]
[2019-12-27] MEDS ORDERED: DICY10CA12 PO (19:36)
[2019-12-27 19:49] VITALS: BP 128/69
== END 2019-12-27 19:48 | disposition home or self-care (01) ==
LOC: EDUNIT# 17:56 → ER FS 17:57
DX: R10.31 Right lower quadrant pain (principal); I10 Essential (primary) hypertension; Z88.8 Allergy status to other drugs, medicaments and biological substances; Z79.01 Long term (current) use of anticoagulants; Z79.52 Long term (current) use of systemic steroids; Z95.810 Presence of automatic (implantable) cardiac defibrillator; Z93.0 Tracheostomy status
CPT/HCPCS: 36415; 74176; 80053; 81000; 83690; 84703; 85025; 96361; 96374; 96375

== ENCOUNTER 2020-02-05 11:23 | Emergency (ER) | payer MEDICAID ==
[~2020-02-05] VITALS: Ht 160 cm; Wt 113.8 kg
[~2020-02-05 11:23] MED LIST changes: +DICY10CA12 PO; -ROPI0.5T2; +ROPI0.5T4
[2020-02-05] MEDS ORDERED: diphenhydrAMINE 50 MG/ML INJ (BENADRYL) IM ONE (12:15)
[2020-02-05] MEDS ORDERED: METOCLOPRAMIDE INJ 10 MG/2 ML (REGLAN) IM ONE (12:15)
--- NOTE | 2020-02-05 12:23 | ED General ---
General Chief Complaint: Chest Pain Stated Complaint: ELEV BP Nursing Triage Note: ARRIVED VIA AMB TO ROOM 06 WITH COMPLAINTS OF CHEST PAIN/ HIGH BP SINCE TUESDAY. PT STATES SHE HAS TAKEN ALL HER BP MEDS THIS AM INCLUDING CLONIDINE. Nursing Sepsis Screen: No Definite Risk Source of Information: Patient Exam Limitations: No Limitations History of Present Illness Date Seen by Provider: Feb 05, 2020 Time Seen by Provider: 12:05 Initial Comments The patient is a 29-year-old female who presents for evaluation of high blood pressure and headache. She told the nurse that she was having some chest discomfort but she denied this to me. An EKG has been performed and reviewed. She states that she is on several different blood pressure medications and that she took them all this morning. Her blood pressure at home was approximately 150/110. At the time of my evaluation the patient's blood pressure was 130/91. Her primary complaint when I evaluated her was a headache. She states that she took Tylenol home with little relief. She is alert and oriented 4, calm, and appears to be in no distress at this time. She denies neck pain or stiffness, vision changes, focal weakness or numbness, nausea or vomiting, difficulty speaking, confusion, or syncope. The patient is anticoagulated with Eliquis because of pulmonary embolism so she will receive a CT of her head. Timing/Duration: 4-6 Hours Severity: Mild Associated Systoms: Headaches Allergies and Home Medications Allergies Coded Allergies: JIA Inhibitors (Verified Allergy, Severe, 05/22/19) ARB-Angiotensin Receptor Antagonist (Verified Allergy, Severe, 05/22/19) baclofen (Unverified Allergy, Unknown, 05/22/19) ON H&P phenazopyridine (Unverified Allergy, Unknown, 05/22/19) ON H&P Home Medications Albuterol Sulfate 8 Gm Hfa.aer.ad, 2 PUFF INH Q6H PRN for SHORTNESS OF BREATH, (Reported) Amlodipine Besylate 10 Mg Tablet, 10 MG PO DAILY, (Reported) Apixaban 5 Mg Tablet, 5 MG PO BID Prescribed by: RALPH DELCID on 11/01/181855 Dicyclomine HCl 10 Mg Capsule, 10 MG PO QID PRN for abdominal pain/nausea Prescribed by: EDISON CHAMBERLAIN on 12/27/191935 Diphenoxylate HCl/Atropine 1 Each Tablet, 1 EACH PO BID PRN for DIARRHEA Prescribed by: ORESTES VELASCO on 11/29/192308 Doxycycline Hyclate 100 Mg Tablet, 100 MG PO BID Prescribed by: MOIZ MARLEY on 08/28/191745 Fluconazole 100 Mg Tablet, 100 MG PO Q48H Prescribed by: MOIZ MARLEY on 08/28/19 174 Methylprednisolone 4 Mg Tab, 4 MG PO UD as directed per dose pack Prescribed by: ANTONIO CALLEJAS on 08/15/19 184 Metoprolol Tartrate 50 Mg Tablet, 50 MG PO BID Prescribed by: FELECIA FORTUNE on 07/24/15 0841 Prednisone 20 Mg Tab, 40 MG PO DAILY Prescribed by: ANTONIO CALLEJAS on 11/04/19 1759 Patient Home Medication List Home Medication List Reviewed: Yes Review of Systems Review of Systems Constitutional: no symptoms reported EENTM: no symptoms reported Respiratory: no symptoms reported Cardiovascular: chest pain (denies currently) Gastrointestinal: no symptoms reported Genitourinary: no symptoms reported Musculoskeletal: no symptoms reported Skin: no symptoms reported Psychiatric/Neurological: Headache Hematologic/Lymphatic: No Symptoms Reported Immunological/Allergic: no symptoms reported All Other Systems Reviewed Negative Unless Noted: Yes Past Yufgpes-Stsslw-Zmljww Hx Past Med/Social Hx: Reviewed Nursing Past Med/Soc Hx Patient Social History Alcohol Use: Denies Use Recreational Drug Use: No Smoking Status: Never a Smoker Type Used: Cigarettes 2nd Hand Smoke Exposure: No Recent Foreign Travel: No Contact w/Someone Who Travel: No Recent Infectious Disease Expo: No Recent Hopitalizations: No Immunizations Up To Date Tetanus Booster (TDap): Unknown PED Vaccines UTD: Yes Date of Pneumonia Vaccine: Sep 09, 2018 Date of Influenza Vaccine: Aug 19, 2015 Seasonal Allergies Seasonal Allergies: No Past Medical History Surgeries: Yes (DEFIBRILLATOR PLACED 05/10/19. PEG TUBE--REMOVED, uterine a blation) Abdominal, Section, Defibrillator, Gallbladder, Tracheostomy Respiratory: Yes (ARDS-CODED; PNEUMOTHORAX 06/2015) Pneumonia, Chronic Bronchitis Currently Using CPAP: No Currently Using BIPAP: No Cardiac: Yes (PULMONARY EDEMA/CARDIAC CAUSE-R/T ATRIAL THROMBUS; CARDIAC ARREST;V-FIB ) Cardiomyopathy, Endocarditis, Hypertension, Valvular Heart Disease Neurological: Yes (encephalopathy-hypoxia, anoxic brain injury) Reproductive Disorders: No Sexually Transmitted Disease: No Genitourinary: Yes Renal Failure Gastrointestinal: Yes Gastroesophageal Reflux Musculoskeletal: Yes (GAIT DISTURBANCE) Endocrine: No HEENT: No Loss of Vision: Denies Hearing Impairment: Denies Cancer: No Psychosocial: Yes (per med record) Anxiety, Bipolar, Depression Integumentary: No Blood Disorders: Yes (ANEMIA) Family Medical History Patient reports no known family medical history. No Pertinent Family Hx Physical Exam Vital Signs Vital Signs - First Documented 02/05/20 11:23 Temp 37.1 Pulse 73 Resp 16 B/P (MAP) 153/101 (118) Pulse Ox 95 O2 Delivery Room Air Capillary Refill : Less Than 3 Seconds Height, Weight, BMI Height: 5'3.00" Weight: 234lbs. 0oz. [id number]; 44.00 BMI Method:Stated General Appearance: No Apparent Distress, WD/WN, Obese Eyes: Bilateral Eye Normal Inspection, Bilateral Eye PERRL, Bilateral Eye EOMI HEENT: PERRL/EOMI, Pharynx Normal Neck: Full Range of Motion, Normal Inspection, Non Tender, Supple Respiratory: Chest Non Tender, Normal Breath Sounds, No Accessory Muscle Use, No Respiratory Distress Cardiovascular: Regular Rate, Rhythm, No Edema, Normal Peripheral Pulses Gastrointestinal: Normal Bowel Sounds, Non Tender, Soft Extremity: Normal Capillary Refill, Normal Inspection, Normal Range of Motion, Non Tender Neurologic/Psychiatric: Alert, Oriented x3, No Motor/Sensory Deficits, Normal 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, 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 Norm as Tested Skin: Normal Color, Warm/Dry Progress/Results/Core Measures Suspected Sepsis Recent Fever Within 48 Hours: No Infection Criteria Present: None New/Unexplained Altered Menta: No Sepsis Screen: No Definite Risk SIRS Temperature: Pulse: 73 Respiratory Rate: 16 Blood Pressure 153 /101 Mean: 118 Results/Orders My Orders Orders - JULEE YOUNG DO Ekg Tracing (02/05/20 11:49) Ct Head Wo (02/05/20 12:02) Metoclopramide Injection (Reglan Injecti (02/05/20 12:15) Diphenhydramine Injection (Benadryl Inje (02/05/20 12:15) Medications Given in ED Current Medications Medications Dose Ordered Sig/Mikal Route Start Time Stop Time Status Last Admin Dose Admin Diphenhydramine HCl 25 mg ONCE ONCE IM 02/05/20 12:15 02/05/20 12:16 DC 02/05/20 12:26 25 MG Metoclopramide HCl 10 mg ONCE ONCE IM 02/05/20 12:15 02/05/20 12:16 DC 02/05/20 12:26 10 MG Vital Signs/I&O 02/05/20 11:23 Temp 37.1 Pulse 73 Resp 16 B/P (MAP) 153/101 (118) Pulse Ox 95 O2 Delivery Room Air Capillary Refill : Less Than 3 Seconds Blood Pressure Mean: 118 Progress Note : Progress Note @1410 - Patient updated on imaging results which are unremarkable. Her blood pre ssure has improved spontaneously and she states that she is feeling much better. Advised the patient to follow up with her PCP in the next 1-2 days and to return to the emergency department immediately for new or worsening symptoms. ECG Comment @1137 - Normal sinus rhythm, rate of 73, normal axis, no acute ischemic findings noted, no STEMI, reviewed and interpreted by myself Diagnostic Imaging Diagonstic Imaging: CT Comments [facility], [place] NAME: [facility] REC#: [id number] PT STATUS: REG ER : 1990 PHYSICIAN: JULEE YOUNG DO ADMIT DATE: 02/05/20/ER FS Signed Date of Exam:02/05/20 CT HEAD WO PROCEDURE: CT head without contrast. TECHNIQUE: Multiple contiguous axial images were obtained through the brain without the use of intravenous contrast. Auto Exposure Controls were utilized during the CT exam to meet ALARA standards for radiation dose reduction. INDICATION: Chest pain. High blood pressure. COMPARISON: 04/12/2019. FINDINGS: No large acute territorial ischemia, mass, or hemorrhage. No midline shift or mass effect. The ventricles, cortical sulci, and basilar cisterns are patent and unremarkable. The calvarium is intact. The visualized paranasal sinuses are clear. IMPRESSION: 1. No large acute territorial ischemia, mass, or hemorrhage. Dictated by: Dictated on workstation # [id number] Dict: 02/05/20 1256 Trans: 02/05/20 1257 PC1 [id number] Interpreted by: EDY PERSON DO Electronically signed by: EDY PERSON DO 02/05/20 1257 Departure Impression Primary Impression: Headache Additional Impression: Hypertension Disposition: 01 HOME, SELF-CARE Condition: Stable Departure-Patient Inst. Decision time for Depature: 14:16 Referrals: MOUNIKA RIGGS MD (PCP/Family) Primary Care Physician Patient Instructions: Headache, Adult, High Blood Pressure (DC) Add. Discharge Instructions: Continue to take your home blood pressure medications as directed. Keep a log of her blood pressures and take them to your doctor's office for your next visit so that her blood pressure medications can be adjusted if needed. Return to the emergency Department immediately for new or worsening symptoms. Follow-up with your doctor in the next 1-2 days. JULEE YOUNG DO Feb 05, 2020 12:23
--- NOTE | 2020-02-05 12:58 | Diagnostic Imaging Report ---
PROCEDURE: CT head without contrast. TECHNIQUE: Multiple contiguous axial images were obtained through the brain without the use of intravenous contrast. Auto Exposure Controls were utilized during the CT exam to meet ALARA standards for radiation dose reduction. INDICATION: Chest pain. High blood pressure. COMPARISON: 04/12/2019. FINDINGS: No large acute territorial ischemia, mass, or hemorrhage. No midline shift or mass effect. The ventricles, cortical sulci, and basilar cisterns are patent and unremarkable. The calvarium is intact. The visualized paranasal sinuses are clear. IMPRESSION: 1. No large acute territorial ischemia, mass, or hemorrhage. Dictated by: Dictated on workstation # [id number]
--- NOTE | 2020-02-05 13:35 | NUR ---
RESTING IN BED ET DENIES NEEDS AT THIS TIME.
--- NOTE | 2020-02-05 14:07 | NUR ---
IN ROOM AT THIS TIME.
[2020-02-05 14:29] VITALS: BP 129/75
== END 2020-02-05 14:29 | disposition home or self-care (01) ==
LOC: EDUNIT# 11:23 → ER FS 11:26
DX: I10 Essential (primary) hypertension (principal); Z88.8 Allergy status to other drugs, medicaments and biological substances; Z79.01 Long term (current) use of anticoagulants; Z79.52 Long term (current) use of systemic steroids; Z95.810 Presence of automatic (implantable) cardiac defibrillator
CPT/HCPCS: 70450; 93005

== ENCOUNTER 2020-02-15 03:24 | Emergency (ER) | payer MEDICAID ==
[~2020-02-15] VITALS: Ht 160 cm; Wt 113.0 kg
--- NOTE | 2020-02-15 03:39 | ED Cardiac General ---
History of Present Illness General Stated Complaint: CARDIC CONCERNS Source: patient, EMS Exam Limitations: no limitations History of Present Illness Date Seen by Provider: Feb 15, 2020 Time Seen by Provider: 03:34 Initial Comments Patient called EMS w concern her "defibrillator might be going off"......Has an implanted cardiac defibrillator which has been in since last summer when her old one was replaced. She states that "she heard something that sounded like her defibrillator going off" and she called 911. she did not feel her defibrillator do anything. Denies CP or SOA. Denies irregular or fast HR. Denies fever, chills or abdominal or back pain. Allergies and Home Medications Allergies Coded Allergies: JIA Inhibitors (Verified Allergy, Severe, 05/22/19) ARB-Angiotensin Receptor Antagonist (Verified Allergy, Severe, 05/22/19) baclofen (Unverified Allergy, Unknown, 05/22/19) ON H&P phenazopyridine (Unverified Allergy, Unknown, 05/22/19) ON H&P Home Medications Albuterol Sulfate 8 Gm Hfa.aer.ad, 2 PUFF INH Q6H PRN for SHORTNESS OF BREATH, (Reported) Amlodipine Besylate 10 Mg Tablet, 10 MG PO DAILY, (Reported) Apixaban 5 Mg Tablet, 5 MG PO BID Prescribed by: RALPH DELCID on 11/01/18 185 Dicyclomine HCl 10 Mg Capsule, 10 MG PO QID PRN for abdominal pain/nausea Prescribed by: EDISON CHAMBERLAIN on 12/27/19 193 Diphenoxylate HCl/Atropine 1 Each Tablet, 1 EACH PO BID PRN for DIARRHEA Prescribed by: ORESTES VELASCO on 11/29/19 2309 Doxycycline Hyclate 100 Mg Tablet, 100 MG PO BID Prescribed by: MOIZ MARLEY on 08/28/19 174 Fluconazole 100 Mg Tablet, 100 MG PO Q48H Prescribed by: MOIZ MARLEY on 08/28/19 174 Methylprednisolone 4 Mg Tab, 4 MG PO UD as directed per dose pack Prescribed by: ANTONIO CALLEJAS on 08/15/19 1841 Metoprolol Tartrate 50 Mg Tablet, 50 MG PO BID Prescribed by: FELECIA FORTUNE on 07/24/15 0841 Prednisone 20 Mg Tab, 40 MG PO DAILY Prescribed by: ANTONIO CALLEJAS on 11/04/19 1759 Patient Home Medication List Home Medication List Reviewed: Yes Review of Systems Review of Systems Constitutional: no symptoms reported Respiratory: No Symptoms Reported; Denies Cough, Denies Shortness of Air Cardiovascular: No Symptoms Reported; Denies Chest Pain, Denies Edema, Denies Irregular Heart Rate, Denies Lightheadedness, Denies Palpitations, Denies Syncope Gastrointestinal: Denies Abdominal Pain, Denies Nausea, Denies Vomiting Musculoskeletal: No back pain, No muscle pain Past Fjgtald-Fhyois-Ptbijz Hx Past Med/Social Hx: Reviewed Nursing Past Med/Soc Hx Patient Social History Type Used: Cigarettes 2nd Hand Smoke Exposure: No Recent Foreign Travel: No Contact w/Someone Who Travel: No Recent Hopitalizations: No Immunizations Up To Date Tetanus Booster (TDap): Unknown PED Vaccines UTD: Yes Date of Pneumonia Vaccine: Sep 09, 2018 Date of Influenza Vaccine: Aug 19, 2015 Seasonal Allergies Seasonal Allergies: No Past Medical History Surgeries: Yes (DEFIBRILLATOR PLACED 05/10/19. PEG TUBE--REMOVED, uterine ablation) Abdominal, Section, Defibrillator, Gallbladder, Tracheostomy Respiratory: Yes (ARDS-CODED; PNEUMOTHORAX 06/2015) Pneumonia, Chronic Bronchitis Currently Using CPAP: No Currently Using BIPAP: No Cardiac: Yes (PULMONARY EDEMA/CARDIAC CAUSE-R/T ATRIAL THROMBUS; CARDIAC ARREST;V-FIB ) Cardiomyopathy, Endocarditis, Hypertension, Valvular Heart Disease Neurological: Yes (encephalopathy-hypoxia, anoxic brain injury) Reproductive Disorders: No Sexually Transmitted Disease: No Genitourinary: Yes Renal Failure Gastrointestinal: Yes Gastroesophageal Reflux Musculoskeletal: Yes (GAIT DISTURBANCE) Endocrine: No HEENT: No Loss of Vision: Denies Hearing Impairment: Denies Cancer: No Psychosocial: Yes (per med record) Anxiety, Bipolar, Depression Integumentary: No Blood Disorders: Yes (ANEMIA) Family Medical History Patient reports no known family medical history. No Pertinent Family Hx Physical Exam Vital Signs Vital Signs - First Documented 02/15/20 03:26 Temp 37.7 Pulse 94 B/P (MAP) 155/101 (119) Pulse Ox 94 O2 Delivery Room Air Capillary Refill : Height, Weight, BMI Height: 5'3.00" Weight: 234lbs. 0oz. 106.492900pj; 44.00 BMI Method:Stated General Appearance: No Apparent Distress, WD/WN HEENT: Normal ENT Inspection Respiratory: Chest Non Tender, Lungs Clear Cardiovascular: Regular Rate, Rhythm, No Edema, No Gallop, No JVD Gastrointestinal: Non Tender, Soft Extremity: Normal Capillary Refill, Non Tender, No Pedal Edema Progress/Results/Core Measures Results/Orders Lab Results Laboratory Tests Test 02/15/20 03:50 Range/Units White Blood Count 10.9 4.3-11.0 10^3/uL Red Blood Count 4.76 4.35-5.85 10^6/uL Hemoglobin 13.6 11.5-16.0 G/DL Hematocrit 41 35-52 % Mean Corpuscular Volume 96 80-99 FL Mean Corpuscular Hemoglobin 29 25-34 PG Mean Corpuscular Hemoglobin Concent 33 32-36 G/DL Red Cell Distribution Width 14.9 H 10.0-14.5 % Platelet Count 355 130-400 10^3/uL Mean Platelet Volume 8.8 7.4-10.4 FL Neutrophils (%) (Auto) 48 42-75 % Lymphocytes (%) (Auto) 41 12-44 % Monocytes (%) (Auto) 8 0-12 % Eosinophils (%) (Auto) 2 0-10 % Basophils (%) (Auto) 1 0-10 % Neutrophils # (Auto) 5.3 1.8-7.8 X 10^3 Lymphocytes # (Auto) 4.5 H 1.0-4.0 X 10^3 Monocytes # (Auto) 0.8 0.0-1.0 X 10^3 Eosinophils # (Auto) 0.2 0.0-0.3 10^3/uL Basophils # (Auto) 0.1 0.0-0.1 10^3/uL My Orders Orders - ALPESH BARBOZA DO Ed Iv/Invasive Line Start (02/15/20 03:31) Cbc With Automated Diff (02/15/20 03:31) Comprehensive Metabolic Panel (02/15/20 03:31) Magnesium (02/15/20 03:31) Troponin I Fs (02/15/20 03:31) Probnp Fs (02/15/20 03:31) Chest 1 View Ap/Pa Only (02/15/20 03:31) Ekg Tracing (02/15/20 03:44) Vital Signs/I&O 02/15/20 03:26 Temp 37.7 Pulse 94 B/P (MAP) 155/101 (119) Pulse Ox 94 O2 Delivery Room Air Initial ECG Impression Time: 03:39 Initial ECG Rate: 90 Initial ECG Rhythm: Normal Sinus Initial ECG Intervals: Normal Initial ECG Impression: Normal Initial ECG Comparisson: No Previous ECG Available Departure Impression Primary Impression: Disorder of defibrillator function Qualified Codes: T82.198A - Other mechanical complication of other cardiac electronic device, initial encounter Additional Impression: History of sudden cardiac successfully resuscitated Disposition: XF T-ON LICENSE OF [facility] Condition: Stable Transfer Transfer Reason: Exceeds level of care Time Spoke to Accepting Phy: 04:00 Transfer Progress Notes Spoke to Dr José (cardio) @ 0400. Accepts pt for transfer to [facility] gave approval to apply magnet to deactivate defibrillator patient had defibrillator placed @ [place] Departure-Patient Inst. Referrals: MOUNIKA RIGGS MD (PCP/Family) Primary Care Physician ALPESH BARBOZA DO Feb 15, 2020 03:39
[2020-02-15 03:57] LABS: HEMATOCRIT 41 % (35-52); HEMOGLOBIN 13.6 G/DL (11.5-16.0); MEAN CORPUSCULAR HEMOGLOBIN 29 PG (25-34); MEAN CORPUSCULAR HGB CONC 33 G/DL (32-36); MEAN CORPUSCULAR VOLUME 96 FL (80-99); MEAN PLATELET VOLUME 8.8 FL (7.4-10.4); PLATELET COUNT 355 10^3/uL (130-400); RED CELL DISTRIBUTION WIDTH 14.9 % (10.0-14.5); WHITE BLOOD COUNT 10.9 10^3/uL (4.3-11.0)
[2020-02-15 03:58] LABS: BASOPHILS # (AUTO) 0.1 10^3/uL (0.0-0.1); BASOPHILS % (AUTO) 1 % (0-10); EOSINOPHILS # (AUTO) 0.2 10^3/uL (0.0-0.3); EOSINOPHILS % (AUTO) 2 % (0-10); LYMPHOCYTES # (AUTO) 4.5 X 10^3 (1.0-4.0); LYMPHOCYTES % (AUTO) 41 % (12-44); MONOCYTES # (AUTO) 0.8 X 10^3 (0.0-1.0); MONOCYTES % (AUTO) 8 % (0-12); NEUTROPHILS # (AUTO) 5.3 X 10^3 (1.8-7.8); NEUTROPHILS % (AUTO) 48 % (42-75)
--- NOTE | 2020-02-15 04:01 | NUR ---
WHEN PT. WAS IN X-RAY SHE WENT UNRESPONSIVE FOR A FEW SECONDS BUT AFTER SHAKING HER SHE RESPONDED AND STARTED CRYING. PT REQUESTING THE MAGNET TO BE PLACED. UPON ARRIVAL TO ER 1 THE SOUND OF THE DEFIB. WAS HEARD BY THE ER STAFF. PT. REPORTED THAT SHE HAD TAKEN A SLEEPING PILL AND WAS HAVING A HARD TIME STAYING AWAKE. THE MAGNET WAS PLACED PER DOCTOR REQUEST. THE TONE THAT SOUNDED WAS THE HIGH ALERT SOUND JUST IT WAS PRIOR TO THE MAGNET PLACEMENT.
[2020-02-15 04:18] LABS: ALANINE AMINOTRANSFERASE 15 U/L (0-55); ALKALINE PHOSPHATASE 90 U/L (40-136); BILIRUBIN,TOTAL < 0.2 MG/DL (0.1-1.0); BUN/CREATININE RATIO 9; CALCIUM 9.2 MG/DL (8.5-10.1); CARBON DIOXIDE 22 MMOL/L (21-32); CHLORIDE 101 MMOL/L (98-107); CREATININE SERUM 1.84 MG/DL (0.60-1.30); GFR ESTIMATED 39; GLUCOSE 123 MG/DL (70-105); MAGNESIUM 1.9 MG/DL (1.6-2.4); SODIUM 139 MMOL/L (135-145); TOTAL PROTEIN 6.8 GM/DL (6.4-8.2)
[2020-02-15 04:19] LABS: ALBUMIN 3.9 GM/DL (3.2-4.5)
[2020-02-15 04:37] VITALS: BP 148/99
--- NOTE | 2020-02-15 06:54 | Diagnostic Imaging Report ---
Portable erect AP chest at 354 hours. INDICATION: Defibrillator malfunction. FINDINGS: The mild cardiomegaly and the left-sided defibrillator device seen on the prior exam of 08/31/2019 are again evident. The leads of the defibrillator device seem to be intact. The lungs are clear. There is no evidence for failure, pneumonia or for pleural effusion. The mediastinum is not widened. The osseous structures are intact. IMPRESSION: 1. There is mild cardiomegaly but there is no evidence for an acute cardiopulmonary abnormality. 2. The left-sided defibrillator device seen previously appears stable. Clinical follow-up is recommended, however. Dictated by: Dictated on workstation # [id number]
== END 2020-02-15 05:25 | disposition short-term general hospital (02) ==
LOC: EDUNIT# 03:24 → ER FS 03:26
DX: T82.198A Other mechanical complication of other cardiac electronic device, initial encounter (principal); J42 Unspecified chronic bronchitis; I11.9 Hypertensive heart disease without heart failure; I42.9 Cardiomyopathy, unspecified; F31.9 Bipolar disorder, unspecified; F41.9 Anxiety disorder, unspecified; Z86.74 Personal history of sudden cardiac arrest; Z88.8 Allergy status to other drugs, medicaments and biological substances; Z88.5 Allergy status to narcotic agent; Z93.0 Tracheostomy status; Z79.01 Long term (current) use of anticoagulants
CPT/HCPCS: 36415; 71045; 80053; 83735; 83880; 84484; 85025; 93005

== ENCOUNTER 2020-02-22 18:40 | Emergency (ER) | payer MEDICAID ==
[~2020-02-22] VITALS: Ht 160 cm; Wt 108.9 kg
--- NOTE | 2020-02-22 19:13 | ED Abdominal Pain ---
General Chief Complaint: Abdominal/GI Problems Stated Complaint: ABD PAIN Nursing Triage Note: Pt complaining of RLQ pain that started last night. Pt taking tylenol and ibuprofen for pain. Pt denies any nausea or vomiting Sepsis Screen: No Definite Risk Source of Information: Patient Exam Limitations: No Limitations (patient is a poor historian in regard to details of her past medical history including the reasons for her to be on a pacemaker and the history of a "clot in my heart") History of Present Illness Date Seen by Provider: Feb 22, 2020 Time Seen by Provider: 18:42 Initial Comments 29-year-old female presents emergency room with a one-day history of lower ab dominal pain. Patient states that she has pain in the suprapubic area but denies any burning on urination. She states the pain is intense and spasms but appears to have some colicky nature. She has no history of ureteral lithiasis. 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 The patient is a poor historian in regard to details of her past medical history. She denies any pulmonary history denies any prior renal history and denies any gastrointestinal history. She states that she had a procedure done that prevents her from having babies after she had the "clot in her heart". I asked that the patient had deep vein thromboses or pulmonary emboli and she replies no. Patient has given informed consent for diagnostic and therapeutic services. Pain is intense at times and causes significant pain when palpation over the suprapubic area but includes a wide area of about 15 cm in the suprapubic area. There are no peritoneal findings. She has no right lower quadrant pain. She does admit that she sometimes feels nauseated because of the pain. Timing/Duration: 12-24 Hours Severity/Quality: Moderate, Aching, Sharp (ranging from sharp to crampy colicky pain) Location: Suprapubic (patient is morbidly obese and has diffuse pain in lower abdomen she had a negative [place]'s finding and denies any pain in her flanks but again is a poor historian) Radiation: RLQ, LLQ, Flank (on deep palpation) Activities at Onset: Activity Modifying Factors: Improves With Lying down (makes it feel better), Improves With Movement, Improves With Urinating (denies any dysuria although the pain is suprapubic) Associated Symptoms: Back Pain (deep palpation of the lumbar paraspinal muscles), Nausea/Vomiting Allergies and Home Medications Allergies Coded Allergies: JIA Inhibitors (Verified Allergy, Severe, 05/22/19) ARB-Angiotensin Receptor Antagonist (Verified Allergy, Severe, 05/22/19) baclofen (Unverified Allergy, Unknown, 05/22/19) ON H&P phenazopyridine (Unverified Allergy, Unknown, 05/22/19) ON H&P Home Medications Albuterol Sulfate 8 Gm Hfa.aer.ad, 2 PUFF INH Q6H PRN for SHORTNESS OF BREATH, (Reported) Amlodipine Besylate 10 Mg Tablet, 10 MG PO DAILY, (Reported) Apixaban 5 Mg Tablet, 5 MG PO BID Prescribed by: RALPH DELCID on 11/01/18 185 Dicyclomine HCl 10 Mg Capsule, 10 MG PO QID PRN for abdominal pain/nausea Prescribed by: EDISON CHAMBERLAIN on 12/27/19 193 Diphenoxylate HCl/Atropine 1 Each Tablet, 1 EACH PO BID PRN for DIARRHEA Prescribed by: ORESTES VELASCO on 11/29/19 230 Doxycycline Hyclate 100 Mg Tablet, 100 MG PO BID Prescribed by: MOIZ MARLEY on 08/28/19 174 Fluconazole 100 Mg Tablet, 100 MG PO Q48H Prescribed by: MOIZ MARLEY on 08/28/19 174 Methylprednisolone 4 Mg Tab, 4 MG PO UD as directed per dose pack Prescribed by: ANTONIO CALLEJAS on 08/15/19 1841 Metoprolol Tartrate 50 Mg Tablet, 50 MG PO BID Prescribed by: FELECIA FORTUNE on 07/24/15 0841 Prednisone 20 Mg Tab, 40 MG PO DAILY Prescribed by: ANTONIO CALLEJAS on 11/04/19 1759 Patient Home Medication List Home Medication List Reviewed: Yes Review of Systems Review of Systems Constitutional: malaise, weakness, other (diffuse suprapubic pain with some radiation to the lumbar area) EENTM: No Symptoms Reported, Other (multiple caries in the teeth on nonocclusive services several missing teeth) Respiratory: No Symptoms Reported (and has a smoker's cough) Cardiovascular: Irregular Heart Rate (history with a pacemaker inserted), Lightheadedness Gastrointestinal: Abdominal Pain (morbidly obese with suprapubic pain), Nausea Genitourinary: See HPI, Flank Pain (on deep palpation no dysuria but pain in the suprapubic area), Pain (suprapubic area) Musculoskeletal: back pain, muscle pain Skin: no symptoms reported Psychiatric/Neurological: Anxiety, Depressed (currently treated with olanzapine) Endocrine: Other (morbidly obese on olanzapine) Hematologic/Lymphatic: See HPI, Blood Clots (it appears the patient has a hypercoagulability syndrome and is on Ativan and reports a prior history of a clot in her heart that caused a cardiac arrest) Past Siulfhl-Qtnvoj-Ybmwap Hx Past Med/Social Hx: Reviewed Nursing Past Med/Soc Hx Patient Social History Alcohol Use: Denies Use Recreational Drug Use: No Type Used: Cigarettes 2nd Hand Smoke Exposure: No Recent Foreign Travel: No Contact w/Someone Who Travel: No Recent Infectious Disease Expo: No Recent Hopitalizations: No Physical Abuse: No Sexual Abuse: No Immunizations Up To Date Tetanus Booster (TDap): Unknown PED Vaccines UTD: Yes Date of Pneumonia Vaccine: Sep 09, 2018 Date of Influenza Vaccine: Aug 19, 2015 Seasonal Allergies Seasonal Allergies: No Past Medical History Surgeries: Yes (DEFIBRILLATOR PLACED 05/10/19. PEG TUBE--REMOVED, uterine ablation) Abdominal, Section, Defibrillator, Gallbladder, Tracheostomy Respiratory: Yes (ARDS-CODED; PNEUMOTHORAX 06/2015) Pneumonia, Chronic Bronchitis Currently Using CPAP: No Currently Using BIPAP: No Cardiac: Yes (PULMONARY EDEMA/CARDIAC CAUSE-R/T ATRIAL THROMBUS; CARDIAC ARREST;V-FIB ) Cardiomyopathy, Endocarditis, Hypertension, Valvular Heart Disease Neurological: Yes (encephalopathy-hypoxia, anoxic brain injury) Reproductive Disorders: No Sexually Transmitted Disease: No Genitourinary: Yes Renal Failure Gastrointestinal: Yes Gastroesophageal Reflux Musculoskeletal: Yes (GAIT DISTURBANCE) Endocrine: No HEENT: No Loss of Vision: Denies Hearing Impairment: Denies Cancer: No Psychosocial: Yes (per med record) Anxiety, Bipolar, Depression Integumentary: No Blood Disorders: Yes (ANEMIA) Family Medical History Patient reports no known family medical history. No Pertinent Family Hx Physical Exam Vital Signs Vital Signs - First Documented 02/22/20 18:45 Temp 35.5 Pulse 90 Resp 18 B/P (MAP) 152/103 (119) Pulse Ox 97 O2 Delivery Room Air Capillary Refill : Less Than 3 Seconds Height/Weight/BMI Height: 5'3.00" Weight: 234lbs. 0oz. 106.630910im; 42.00 BMI Method:Stated General Appearance: moderate distress (from suprapubic pain), obese HEENT: PERRL/EOMI, normal ENT inspection, pharynx normal, other (multiple caries and periodontal disease with missing teeth and lesions on the nonocclusive surfaces) Neck: non-tender, full range of motion, supple, normal inspection Respiratory: chest non-tender, lungs clear, normal breath sounds, no respiratory distress, no accessory muscle use Cardiovascular: regular rate, rhythm (has a pacemaker), no edema, no gallop, no JVD, no murmur, other (prior history of clot in the heart and is currently on approximately an) Peripheral Pulses: 2+ Carotid (R), 2+ Carotid (L), 2+ Radial Pulses (R), 2+ Radial Pulses (L) Gastrointestinal: normal bowel sounds, soft, no organomegaly, no pulsatile mass, tenderness (suprapubic area) Extremities: normal range of motion, non-tender, normal inspection (negative Homans), no pedal edema, no calf tenderness, normal capillary refill Back: normal inspection, no vertebral tenderness, CVA tenderness (L) (minimal on deep palpation) 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, no motor/sensory deficits, alert, normal mood/affect, oriented x 3 Skin: normal color, warm/dry Lymphatic: no adenopathy Focused Exam Lactate Level 02/22/20 19:13: Lactic Acid Level 0.58 Lactic Acid Level Laboratory Tests Test 02/22/20 19:13 Lactic Acid Level 0.58 MMOL/L (0.50-2.00) Progress/Results/Core Measures Results/Orders Lab Results Laboratory Tests Test 02/22/20 18:45 02/22/20 19:13 Range/Units Urine Color YELLOW Urine Clarity CLEAR Urine pH 6.0 5-9 Urine Specific [place] 1.020 1.016-1.022 Urine Protein 3+ H NEGATIVE Urine Glucose (UA) NEGATIVE NEGATIVE Urine Ketones NEGATIVE NEGATIVE Urine Nitrite NEGATIVE NEGATIVE Urine Bilirubin NEGATIVE NEGATIVE Urine Urobilinogen 0.2 < = 1.0 MG/DL Urine Leukocyte Esterase NEGATIVE NEGATIVE Urine RBC (Auto) TRACE H NEGATIVE Urine RBC RARE /HPF Urine WBC NONE /HPF Urine Squamous Epithelial Cells 5-10 /HPF Urine Crystals NONE /LPF Urine Bacteria FEW H /HPF Urine Casts NONE /LPF Urine Granular Casts /LPF Urine Mucus NEGATIVE /LPF Urine Culture Indicated NO Urine Opiates Screen NEGATIVE NEGATIVE Urine Oxycodone Screen NEGATIVE NEGATIVE Urine Methadone Screen NEGATIVE NEGATIVE Urine Propoxyphene Screen NEGATIVE NEGATIVE Urine Barbiturates Screen NEGATIVE NEGATIVE Ur Tricyclic Antidepressants Screen POSITIVE H NEGATIVE Urine Phencyclidine Screen NEGATIVE NEGATIVE Urine Amphetamines Screen NEGATIVE NEGATIVE Urine Methamphetamines Screen NEGATIVE NEGATIVE Urine Benzodiazepines Screen NEGATIVE NEGATIVE Urine Cocaine Screen NEGATIVE NEGATIVE Urine Cannabinoids Screen NEGATIVE NEGATIVE White Blood Count 8.0 4.3-11.0 10^3/uL Red Blood Count 4.59 4.35-5.85 10^6/uL Hemoglobin 13.2 11.5-16.0 G/DL Hematocrit 40 35-52 % Mean Corpuscular Volume 88 80-99 FL Mean Corpuscular Hemoglobin 29 25-34 PG Mean Corpuscular Hemoglobin Concent 33 32-36 G/DL Red Cell Distribution Width 15.2 H 10.0-14.5 % Platelet Count 354 130-400 10^3/uL Mean Platelet Volume 8.7 7.4-10.4 FL Neutrophils (%) (Auto) 48 42-75 % Lymphocytes (%) (Auto) 42 12-44 % Monocytes (%) (Auto) 7 0-12 % Eosinophils (%) (Auto) 2 0-10 % Basophils (%) (Auto) 1 0-10 % Neutrophils # (Auto) 3.9 1.8-7.8 X 10^3 Lymphocytes # (Auto) 3.4 1.0-4.0 X 10^3 Monocytes # (Auto) 0.6 0.0-1.0 X 10^3 Eosinophils # (Auto) 0.2 0.0-0.3 10^3/uL Basophils # (Auto) 0.0 0.0-0.1 10^3/uL Prothrombin Time 13.4 12.2-14.7 SEC INR Comment 1.0 0.8-1.4 Sodium Level 138 135-145 MMOL/L Potassium Level 4.2 3.6-5.0 MMOL/L Chloride Level 102 98-107 MMOL/L Carbon Dioxide Level 24 21-32 MMOL/L Anion Gap 12 5-14 MMOL/L Blood Urea Nitrogen 16 7-18 MG/DL Creatinine 2.18 H 0.60-1.30 MG/DL Estimat Glomerular Filtration Rate 32 BUN/Creatinine Ratio 7 Glucose Level 106 H 70-105 MG/DL Lactic Acid Level 0.58 0.50-2.00 MMOL/L Calcium Level 8.5 8.5-10.1 MG/DL Corrected Calcium 8.7 8.5-10.1 MG/DL Total Bilirubin 0.2 0.1-1.0 MG/DL Aspartate Amino Transf (AST/SGOT) 19 5-34 U/L Alanine Aminotransferase (ALT/SGPT) 16 0-55 U/L Alkaline Phosphatase 95 40-136 U/L Total Protein 6.7 6.4-8.2 GM/DL Albumin 3.7 3.2-4.5 GM/DL Lipase 26 8-78 U/L My Orders Orders - OLLIE WOOD DO Cbc And Manual Diff (02/22/20 19:05) Comprehensive Metabolic Panel (02/22/20 19:05) Urinalysis (02/22/20 19:05) Ekg Tracing (02/22/20 19:05) Lactic Acid Analyzer (02/22/20 19:05) Lipase (02/22/20 19:05) Ct Abd/Pelvis Wo(Kidney Stone) (02/22/20 19:05) Ed Iv/Invasive Line Start (02/22/20 19:17) Drug Screen Stat (Urine) (02/22/20 19:19) Protime With Inr (02/22/20 19:19) Vital Signs/I&O 02/22/20 18:45 Temp 35.5 Pulse 90 Resp 18 B/P (MAP) 152/103 (119) Pulse Ox 97 O2 Delivery Room Air Blood Pressure Mean: 119 Progress Progress Note : Time: 20:48 Progress Note Laboratory evaluation has been completed. He has a creatinine of 2.18 indicating chronic kidney disease stage V. Patient has a lactic acid of 0.5 hemoglobin 13.2 INR 1.0 urinalysis with a specific gravity of 1.020 leukocyte esterase and nitrate negative. CT scan reveals: FINDINGS: The heart is enlarged. The included lung bases are clear. No evidence of obstructing renal calculi or hydronephrosis. No obvious renal masses are identified. No perinephric fat stranding. The liver, spleen, pancreas, and adrenal glands have a normal appearance. The gallbladder is surgically absent. There is no pathologically enlarged mesenteric or retroperitoneal adenopathy. The bowel loops are nondilated. The appendix is visualized in the right lower quadrant and has a normal appearance. There is no free fluid or free air. The osseous structures are age-appropriate. The urinary bladder is nondistended. Dominant follicle is noted in the right adnexa. There is no free air, loculated collection, or adenopathy in the pelvis. IMPRESSION: 1. No evidence of renal calculi or hydronephrosis. 2. Dominant follicle in the right adnexa. No evidence of free fluid. 3. Normal appendix. No evidence of bowel obstruction. Initial ECG Impression Date: Feb 22, 2020 Initial ECG Impression Time: 19:10 Initial ECG Rate: 83 Initial ECG Rhythm: Normal Sinus Initial ECG Intervals: QT (QTC is 506 patient has borderline prolonged [place] interval and left ventricular hypertrophy) Initial ECG Comparisson: No Previous ECG Available Departure Impression Primary Impression: Abdominal pain Additional Impressions: Ovarian follicular cyst Anticoagulant long-term use Cardiac arrhythmia Disposition: 01 HOME, SELF-CARE Condition: Improved Departure-Patient Inst. Decision time for Depature: 20:54 Referrals: MOUNIKA RIGGS MD (PCP/Family) Primary Care Physician Patient Instructions: Acute Abdomen (Belly Pain), Adult (DC), Anti-Clotting Medicines: Direct Oral Anticoagulants, Dehydration, Adult (DC), Ovarian Cysts Add. Discharge Instructions: 29-year-old female presents with suprapubic abdominal pain. Patient does have a functional follicular cyst on CT scan no evidence of any other pathology. Patient also appeared to be slightly dehydrated was encouraged to stay well hydrated. She can use Tylenol for the mild discomfort from the follicular cyst. Patient also has a history of hypercoagulability disorder. She did not have information as to the exact diagnosis but is currently on a Apixbam twice a day. She has a pacemaker should be followed up by her attending provider. No evidence of UTI or genitourinary infection was identified. Vision also has continued care with mental health services. And the patient should follow up with dental care as she has several caries that need to be addressed. All discharge instructions reviewed with patient and/or family. Voiced understanding. Copy Copies To 1: MOUNIKA RIGGS MD, ANTHONY H DO Feb 22, 2020 19:13
[2020-02-22 19:29] LABS: HEMATOCRIT 40 % (35-52); HEMOGLOBIN 13.2 G/DL (11.5-16.0); MEAN CORPUSCULAR HEMOGLOBIN 29 PG (25-34); MEAN CORPUSCULAR HGB CONC 33 G/DL (32-36); MEAN CORPUSCULAR VOLUME 88 FL (80-99)
[2020-02-22 19:30] LABS: BASOPHILS % (AUTO) 1 % (0-10); EOSINOPHILS # (AUTO) 0.2 10^3/uL (0.0-0.3); EOSINOPHILS % (AUTO) 2 % (0-10); LYMPHOCYTES # (AUTO) 3.4 X 10^3 (1.0-4.0); LYMPHOCYTES % (AUTO) 42 % (12-44); MEAN PLATELET VOLUME 8.7 FL (7.4-10.4); MONOCYTES # (AUTO) 0.6 X 10^3 (0.0-1.0); MONOCYTES % (AUTO) 7 % (0-12); NEUTROPHILS # (AUTO) 3.9 X 10^3 (1.8-7.8); NEUTROPHILS % (AUTO) 48 % (42-75); PLATELET COUNT 354 10^3/uL (130-400); RED CELL DISTRIBUTION WIDTH 15.2 % (10.0-14.5)
[2020-02-22 19:37] LABS: PROTHROMBIN TIME PATIENT 13.4 SEC (12.2-14.7)
--- NOTE | 2020-02-22 19:45 | Diagnostic Imaging Report ---
PROCEDURE: CT urinary tract, rule out kidney stone. TECHNIQUE: Multiple contiguous axial images were obtained through the abdomen and pelvis without the use of intravenous contrast. Auto Exposure Controls were utilized during the CT exam to meet ALARA standards for radiation dose reduction. INDICATION: Right-sided flank pain. Evaluate for renal stones. COMPARISON: 12/27/2019. FINDINGS: The heart is enlarged. The included lung bases are clear. No evidence of obstructing renal calculi or hydronephrosis. No obvious renal masses are identified. No perinephric fat stranding. The liver, spleen, pancreas, and adrenal glands have a normal appearance. The gallbladder is surgically absent. There is no pathologically enlarged mesenteric or retroperitoneal adenopathy. The bowel loops are nondilated. The appendix is visualized in the right lower quadrant and has a normal appearance. There is no free fluid or free air. The osseous structures are age-appropriate. The urinary bladder is nondistended. Dominant follicle is noted in the right adnexa. There is no free air, loculated collection, or adenopathy in the pelvis. IMPRESSION: 1. No evidence of renal calculi or hydronephrosis. 2. Dominant follicle in the right adnexa. No evidence of free fluid. 3. Normal appendix. No evidence of bowel obstruction. Dictated by: Dictated on workstation # [id number]
[2020-02-22 19:46] LABS: BACTERIA,URINE FEW /HPF; BILIRUBIN,URINE NEGATIVE (NEGATIVE); CLARITY,URINE CLEAR; COLOR,URINE YELLOW; GLUCOSE, URINE (UA) NEGATIVE (NEGATIVE); KETONES,URINE NEGATIVE (NEGATIVE); LEUKOCYTE ESTERASE ,URINE NEGATIVE (NEGATIVE); NITRITE,URINE NEGATIVE (NEGATIVE); PROTEIN,URINE 3+ (NEGATIVE); RBC,URINE RARE /HPF
[2020-02-22 19:52] LABS: ALBUMIN 3.7 GM/DL (3.2-4.5); BILIRUBIN,TOTAL 0.2 MG/DL (0.1-1.0); CALCIUM 8.5 MG/DL (8.5-10.1); CREATININE SERUM 2.18 MG/DL (0.60-1.30); POTASSIUM 4.2 MMOL/L (3.6-5.0); TOTAL PROTEIN 6.7 GM/DL (6.4-8.2)
[2020-02-22 20:33] LABS: AMPHETAMINE SCREEN, URINE NEGATIVE (NEGATIVE); BARBITURATE SCREEN URINE NEGATIVE (NEGATIVE); BENZODIAZEPINES SCREEN URINE NEGATIVE (NEGATIVE); CANNABINOID SCREEN, URINE NEGATIVE (NEGATIVE); COCAINE SCREEN URINE NEGATIVE (NEGATIVE); METHADONE STAT NEGATIVE (NEGATIVE); METHAMPHETAMINE SCREEN URINE S NEGATIVE (NEGATIVE); OPIATE SCREEN URINE NEGATIVE (NEGATIVE); OXYCODONE STAT NEGATIVE (NEGATIVE); PROPOXYPHENE STAT NEGATIVE (NEGATIVE); TRICYCLIC ANTIDEPRESSANTS SCRE POSITIVE (NEGATIVE)
[2020-02-22 21:02] VITALS: BP 134/96
[2020-02-22 22:02] LABS: BAND NEUTROPHILS 0 %; NEUTROPHILS % (MANUAL) 44 %
[2020-02-22 22:03] LABS: BASOPHILS % (MANUAL) 0 %; EOSINOPHILS % (MANUAL) 2 %; LYMPHOCYTES % (MANUAL) 53 %; MONOCYTES % (MANUAL) 1 %; RBC MORPH NORMAL
== END 2020-02-22 21:10 | disposition home or self-care (01) ==
LOC: EDUNIT# 18:40 → ER FS 18:41
DX: R10.2 Pelvic and perineal pain (principal); N83.01 Follicular cyst of right ovary; Z79.01 Long term (current) use of anticoagulants; I49.9 Cardiac arrhythmia, unspecified; D68.59 Other primary thrombophilia; Z95.0 Presence of cardiac pacemaker; K02.9 Dental caries, unspecified; E66.01 Morbid (severe) obesity due to excess calories; Z68.41 Body mass index [BMI] 40.0-44.9, adult
CPT/HCPCS: 36415; 74176; 80053; 80306; 81000; 83605; 83690; 85007; 85027; 85610

== ENCOUNTER 2020-04-08 00:35 | Emergency (ER) | payer MEDICAID ==
[~2020-04-08] VITALS: Ht 159 cm; Wt 113.6 kg
[2020-04-08] MEDS ORDERED: NITROGLYCERIN 0.4 MG SL TABS BTL 25'S SL PRN (01:00)
[2020-04-08] MEDS ORDERED: ASPIRIN 81 MG CHEW (CHILDREN'S ASA) PO ONE (01:00)
--- OUTSIDE RECORDS SUMMARY | 2020-04-08 01:00 | XMS REPORT | Continuity of Care Document ---
Author Organization Unknown Address Unknown Phone Unavailable Allergies Active Description Code Type Severity Reaction Onset Reported/Identified Relationship to Patient Clinical Status Yes bacl bacl Moderate N/A 03/21/2015 [address] JIA Inhibitors [id number] Dr ug Allergy Severe N/A 05/22/2019 Yes ARB-Angiotensin Receptor Antagonist [id number] Drug Allergy Severe N/A 05/22/2019 Yes baclofen [id number] Drug Allergy Unknown N/A 05/22/2019 Yes phenazopyridine [id number] D rug Allergy Unknown N/A 05/22/2019 Medications There is no data. Problems Date Dx Coded Attending Type Code Diagnosis Diagnosed By 03/26/2015 LISSET DIETRICH MD E Ot 285.9 ANEMIA NOS 03/26/2015 DOTTY DIETRICH MDIC E Ot 300.0 0 ANXIETY STATE NOS 03/26/2015 LISSET DIETRICH MD E Ot 310.8 9 OTH SPEC NONPSYCHOTIC MENTAL DISORDERS F 03/26/2015 LISSET DIETRICH MD E Ot 348.1 ANOXIC BRAIN DAMAGE 03/26/2015 LISSET DIETRICH MD E Ot 348.3 1 METABOLIC ENCEPHALOPATHY 03/26/2015 DOTTY DIETRICH MDIC E Ot 424.9 0 ENDOCARDITIS NOS 03/26/2015 DOTTY DIETRICH MDIC E Ot 425.4 PRIM CARDIOMYOPATHY NEC 03/26/2015 KAUR MAZARIEGOS LISSET E Ot 428.0 CONGESTIVE HEART FAILURE NOS 03/26/2015 DOTTY DIETRICH MDIC E Ot 429.8 9 ILL-DEFINED HRT DIS NEC 03/26/2015 DOTTY DIETRICH MDIC E Ot 530.8 1 ESOPHAGEAL REFLUX 03/26/2015 LISSET DIETRICH MD E Ot 781.2 ABNORMALITY OF GAIT 03/26/2015 LISSET DIETRICH MD E Ot 787.2 0 DYSPHAGIA, UNSPECIFIED 03/26/2015 KAUR MAZARIEGOS LISSET E Ot V57.8 9 REHABILITATION PROC NEC 03/26/2015 KAUR MAZARIEGOS LISSET E Ot V58.6 1 ANTICOAGULANTS,LT,CURRENT USE 03/26/2015 KAUR MAZARIEGOS LISSET E Ot 285.9 03/26/2015 KAUR MAZARIEGOS, LISSET E Ot 300.0 0 03/26/2015 KAUR MAZARIEGOS, LISSET E Ot 310.8 9 03/26/2015 KAUR MAZARIEGOS, LISSET E Ot 348.1 03/26/2015 KAUR MAZARIEGOS, LISSET E Ot 348.3 1 03/26/2015 KAUR MAZARIEGOS, LISSET E Ot 425.4 03/26/2015 KAUR MAZARIEGOS, LISSET E Ot 429.8 9 03/26/2015 KAUR MAZARIEGOS, LISSET E Ot 530.8 1 03/26/2015 KAUR MAZARIEGOS, LISSET E Ot 781.2 03/26/2015 KAUR MAZARIEGOS, LISSET E Ot 787.2 0 03/26/2015 KAUR MAZARIEGOS, LISSET E Ot V57.8 9 03/26/2015 KAUR MAZARIEGOS, LISSET E Ot V58.6 1 03/27/2015 KAUR MAZARIEGOS, LISSET E Ot 285.9 03/27/2015 KAUR MAZARIEGOS, LISSET E Ot 300.0 0 03/27/2015 KAUR MAZARIEGOS, LISSET E Ot 310.8 9 03/27/2015 KAUR MAZARIEGOS, LISSET E Ot 348.1 03/27/2015 KAUR MAZARIEGOS, LISSET E Ot 348.3 1 03/27/2015 KAUR MAZARIEGOS, LISSET E Ot 424.9 0 03/27/2015 KAUR MAZARIEGOS, LISSET E Ot 425.4 03/27/2015 KAUR MAZARIEGOS, LISSET E Ot 428.0 03/27/2015 KAUR MAZARIEGOS, LISSET E Ot 429.8 9 03/27/2015 KAUR MAZARIEGOS, LISSET E Ot 530.8 1 03/27/2015 KAUR MAZARIEGOS, LISSET E Ot 781.2 03/27/2015 KAUR MAZARIEGOS, LISSET E Ot 787.2 0 03/27/2015 KAUR MAZARIEGOS, LISSET E Ot V57.8 9 03/27/2015 KAUR MAZARIEGOS, LISSET E Ot V58.6 1 03/27/2015 KAUR MAZARIEGOS, LISEST E Ot 285.9 03/27/2015 KAUR MAZARIEGOS, LISSET E Ot 300.0 0 03/27/2015 KAUR MAZARIEGOS, LISSET E Ot 310.8 9 03/27/2015 KAUR MAZARIEGOS, LISSET E Ot 348.1 03/27/2015 KAUR MAZARIEGOS, LISSET E Ot 348.3 1 03/27/2015 KAUR MAZARIEGOS, LISSET E Ot 425.4 03/27/2015 KAUR MAZARIEGOS, LISSET E Ot 429.8 9 03/27/2015 KAUR MAZARIEGOS, LISSET E Ot 530.8 1 03/27/2015 KAUR MAZARIEGOS, LISSET E Ot 781.2 03/27/2015 KAUR MAZARIEGOS, LISSET E Ot 787.2 0 03/27/2015 KAUR MAZARIEGOS, LISSET E Ot V57.8 9 03/27/2015 KAUR MAZARIEGOS, LISSET E Ot V58.6 1 03/29/2015 GELLENDER DO, APRIL A Ot 285.9 [...] A Ot 348.1 03/31/2015 GELLENDER DO, APRIL Guthrie Ot 348.31 [...] 285.9 04/12/2015 KAUR MAZARIEGOS, LISSET E Ot 300.0 0 04/12/2015 KAUR MAZARIEOGS, LISSET E Ot 310.8 9 04/12/2015 KAUR MAZARIEGOS, LISSET E Ot 348.1 04/12/2015 KAUR MAZARIEGOS, LISSET E Ot 348.3 1 04/12/2015 KAUR MAZARIEGOS, LISSET E Ot 424.9 0 04/12/2015 KAUR MAZARIEGOS, LISSET E Ot 425.4 04/12/2015 KAUR MAZARIEGOS, LISSET E Ot 428.0 04/12/2015 KAUR MAZARIEGOS, LISSET E Ot 429.8 9 04/12/2015 KAUR MAZARIEGOS, LISSET E Ot 530.8 1 04/12/2015 KAUR MAZARIEGOS, LISSET E Ot 781.2 04/12/2015 KAUR MAZARIEGOS, LISSET E Ot 787.2 0 04/12/2015 KAUR MAZARIEGOS, LISSET E Ot V57.8 9 04/12/2015 KAUR MAZARIEGOS, LISSET E Ot V58.6 1 04/12/2015 KAUR MAZARIEGOS, LISSET E Ot 285.9 04/12/2015 KAUR MAZARIEGOS, LISSET E Ot 300.0 0 04/12/2015 KAUR MAZARIEGOS, LISSET E Ot 310.8 9 04/12/2015 KAUR MAZARIEGOS, LISSET E Ot 348.1 04/12/2015 KAUR MAZARIEGOS LISSET E Ot 348.3 1 04/12/2015 KAUR MAZARIEGOS, LISSET E Ot 424.9 0 04/12/2015 KAUR MAZARIEGOS LISSET E Ot 425.4 04/12/2015 KAUR MAZARIEGOS, LISSET E Ot 428.0 04/12/2015 KAUR MAZARIEGOS, LISSET E Ot 429.8 9 04/12/2015 KAUR MAZARIEGOS, LISSET E Ot 530.8 1 04/12/2015 KAUR MAZARIEGOS, LISSET E Ot 781.2 04/12/2015 KAUR MAZARIEGOS, LISSET E Ot 787.2 0 04/12/2015 KAUR MAZARIEGOS, LISSET E Ot V57.8 9 04/12/2015 KAUR MAZARIEGOS LISSET E Ot V58.6 1 07/24/2015 FELECIA FORTUNE MD Ot 348. 1 ANOXIC BRAIN DAMAGE 07/24/2015 FELECIA FORTUNE MD Ot 397. 0 TRICUSPID VALVE DISEASE 07/24/2015 FELECIA FORTUNE MD Ot 401. 9 HYPERTENSION NOS 07/24/2015 FELECIA FORTUNE MD Ot 425. 4 PRIM CARDIOMYOPATHY NEC 07/24/2015 FELECIA FORTUNE MD Ot 428. 0 CONGESTIVE HEART FAILURE NOS 07/24/2015 FELECIA FORTUNE MD Ot 428. 22 CHRONIC SYSTOLIC HRT FAILURE 07/24/2015 FELECIA FORTUNE MD Ot V12. 53 PERSONAL HISTORY OF SUDDEN CARDIAC ARRES 07/24/2015 FELECIA FORTUNE MD Ot V58. 61 ANTICOAGULANTS,LT,CURRENT USE 07/24/2015 TONG MAZARIEGOS, FELECIA [facility]58. [facility] 07/25/2015 NERISSA LAURA, BLANCO Mohan Ot 401.9 07/25/2015 NERISSA LAURA, BLANCO Mohan Ot 425.4 07/25/2015 NERISSA LAURA, BLANCO Mohan Ot 427.5 07/25/2015 NERISSA LAURA, BLANCO Mohan Ot 428.0 07/29/2015 GELLENDER DO, APRIL [place] Ot 296.80 07/29/2015 GELLENDER DO, APRIL Guthrie Ot 300.00 07/29/2015 GELLENDER DO, APRIL [place] Ot 348.1 07/29/2015 GELLENDER DO, APRIL Guthrie Ot 425.4 07/29/2015 GELLENDER DO, APRIL [place] Ot 428.0 07/29/2015 GELLENDER DO, APRIL Guthrie Ot 512.89 07/29/2015 GELLENDER DO, APRIL Guthrie Ot 530.81 07/29/2015 GELLENDER DO, APRIL Guthrie Ot V12.51 07/29/2015 GELLENDER DO, APRIL Guthrie Ot V12.53 07/29/2015 GELLENDER DO, APRIL Guthrie Ot V45.02 07/29/2015 GELLENDER DO, APRIL [place] Ot V58.61 07/29/2015 GELLENDER DO, APRIL [place] Ot 296.80 BIPOLAR DISORDER, UNSPECIFIED 07/29/2015 GELLENDER DO, APRIL Guthrie Ot 300.00 ANXIETY STATE NOS 07/29/2015 GELLENDER DO, APRIL Guthrie Ot 348.1 ANOXIC BRAIN DAMAGE 07/29/2015 GELLENDER DO, APRIL Guthrie Ot 425.4 PRIM CARDIOMYOPATHY NEC 07/29/2015 GELLENDER DO, APRIL [place] Ot 428.0 CONGESTIVE HEART FAILURE NOS 07/29/2015 [...] A Ot 300.00 07/29/2015 GELLENDER DO, APRIL Guthrie Ot 348.1 07/29/2015 GELLENDER DO, APRIL A Ot 425.4 07/29/2015 GELLENDER DO, APRIL A Ot 428.0 07/29/2015 GELLENDER DO, APRIL A Ot 428.22 07/29/2015 GELLENDER DO, APRIL A Ot 512.89 07/29/2015 GELLENDER DO, APRIL A Ot 530.81 07/29/2015 GELLENDER DO, APRIL Guthrie Ot V12.51 07/29/2015 GELLENDER DO, APRIL A Ot V12.53 07/29/2015 GELLENDER DO, APRIL Guthrie Ot V45.02 07/29/2015 GELLENDER DO, APRIL Guthrie Ot V58.61 07/29/2015 GELLENDER DO, APRIL A Ot 296.80 07/29/2015 GELLENDER DO, APRIL A Ot 300.00 07/29/2015 GELLENDER DO, APRIL A Ot 348.1 07/29/2015 GELLENDER DO, APRIL A Ot 425.4 07/29/2015 GELLENDER DO, APRIL A Ot 428.0 07/29/2015 GELLENDER DO, APRIL A Ot 512.89 07/29/2015 GELLENDER DO, APRIL Guthrie Ot 530.81 07/29/2015 GELLENDER DO, APRIL A [...] A Ot V12.51 07/29/2015 GELLENDER DO, APRIL Guthrie Ot V12.53 07/29/2015 GELLENDER DO, APRIL Guthrie Ot V45.02 07/29/2015 GELLENDER , APRIL Guthrie Ot V58.61 08/09/2015 KRISTA MAZARIEGOS, ORESTES Guthrie Ot 724. 5 BACKACHE NOS 08/09/2015 KRISTA MAZARIEGOS, ORESTES Guthrie Ot 729. 5 PAIN IN LIMB 08/09/2015 ORESTES VELASCO MD Ot V45. 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 0 09/01/2015 FELECIA FORTUNE MD Ot 401. 9 09/01/2015 FELECIA FORTUNE MD Ot 425. 4 09/01/2015 FELECIA FORTUNE MD Ot 428. 0 09/04/2015 RALPH LÓPEZ MD Ot 300.00 09/04/2015 [...] (IMPLANTABLE) CARD 02/15/2016 OSMAN GONSALES MD Ot I42 .0 DILATED CARDIOMYOPATHY 02/15/2016 OSMAN GONSALES MD Ot Z95 .0 PRESENCE OF CARDIAC PACEMAKER 02/17/2016 OSMAN GONSALES MD Ot I42 .0 02/17/2016 OSMAN GONSALES MD Ot Z95 .0 03/03/2016 NERISSA LAURA BLANCO K Ot 401.9 03/03/2016 NERISSA LAURA BLANCO K Ot 425.4 03/03/2016 NERISSA LAURA BLANCO K Ot 427.5 03/03/2016 NERISSA LAURA BLANCO K Ot 428.0 03/03/2016 FELECIA FORTUNE MD Ot 397. 0 03/03/2016 TONG MAZARIEGOS, FELECIA Diaz Ot 401. 9 03/03/2016 TONG MAZARIEGOS, FELECIA Diaz Ot 425. 4 03/03/2016 FELECIA FORTUNE MD Ot 428. 0 03/17/2016 NERISSA LAURA BLANCO K Ot G93.1 ANOXIC BRAIN DAMAGE, NOT ELSEWHERE CLASS 03/17/2016 NERISSA LAURA BLANCO K Ot I10 ESSENTIAL (PRIMARY) HYPERTENSION 03/17/2016 NERISSA LAURA BLANCO Kimberlee Ot I50.1 LEFT VENTRICULAR FAILURE 03/17/2016 NERISSA LAURA BLANCO K Ot R09.2 RESPIRATORY ARREST 01/12/2018 NERISSA LAURA BLANCO K Ot 401.9 HYPERTENSION NOS 01/12/2018 NERISSA LAURA BLANCO K Ot 425.4 PRIM CARDIOMYOPATHY NEC 01/12/2018 NERISSA LAURA BLANCO K Ot 427.5 CARDIAC ARREST 01/12/2018 NERISSA LAURA BLANCO K Ot 428.0 CONGESTIVE HEART FAILURE NOS 01/12/2018 FELECIA FORTUNE MD Ot 397. 0 TRICUSPID VALVE DISEASE 01/12/2018 FELECIA FORTUNE MD Ot 401. 9 HYPERTENSION NOS 01/12/2018 FELECIA FORTUNE MD Ot 425. 4 PRIM CARDIOMYOPATHY NEC 01/12/2018 FELECIA FORTUNE MD Ot 428. 0 CONGESTIVE HEART FAILURE NOS 01/12/2018 NERISSA LAURA BLANCO Kimberlee Ot G93.1 ANOXIC BRAIN DAMAGE, NOT ELSEWHERE CLASS 01/12/2018 NERISSA LAURA BLANCO K Ot I10 ESSENTIAL (PRIMARY) HYPERTENSION 01/12/2018 NERISSA LAURA BLANCO K Ot I50.1 LEFT VENTRICULAR FAILURE 01/12/2018 NERISSA [...] I51.3 INTRACARDIAC THROMBOSIS, NOT ELSEWHERE C 01/25/2018 BLANCO BERMAN Ot G93.1 ANOXIC BRAIN DAMAGE, [...] TOXIC EFFECT OF UNSP SUBSTANCE, UNDETERM 08/05/2018 PEDRO CELISIS Ot W19.XXXA UNSPECIFIED FALL, INITIAL ENCOUNTER 08/05/2018 NIK CELIS Ot 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 08/05/2018 PEDRO CELISIS Ot Z79.51 DROP MACHINE OPERATOR (CURRENT) USE OF INHALED STERO 08/05/2018 PEDRO CELISIS Ot Z87.01 PERSONAL HISTORY OF PNEUMONIA (RECURRENT 08/05/2018 NIK CELIS Ot Z87.891 PERSONAL HISTORY OF NICOTINE DEPENDENCE 08/05/2018 NIK CELIS Ot Z88.8 ALLERGY STATUS TO [facility] DRUG/MEDS/BIOL SUB 08/05/2018 PEDRO CELISIS Ot Z93.0 TRACHEOSTOMY STATUS 08/05/2018 PEDRO CELISIS Ot Z95.810 PRESENCE OF AUTOMATIC (IMPLANTABLE) CARD 08/05/2018 PEDRO CELISIS Ot Z98.890 OTHER SPECIFIED POSTPROCEDURAL STATES 08/08/2018 NIK CELIS Ot F31.9 BIPOLAR DISORDER, UNSPECIFIED 08/08/2018 PEDRO CELISIS Ot F41.9 ANXIETY DISORDER, UNSPECIFIED 08/08/2018 PEDRO CELISIS Ot G89.29 OTHER CHRONIC PAIN 08/08/2018 PEDRO CELISIS Ot I42.9 CARDIOMYOPATHY, UNSPECIFIED 08/08/2018 PEDRO CELISIS Ot K21.9 GASTRO-ESOPHAGEAL REFLUX DISEASE WITHOUT 08/08/2018 PEDRO CELISIS Ot M25.571 PAIN IN RIGHT ANKLE AND JOINTS OF RIGHT 08/08/2018 PEDRO CELISIS Ot M54.5 LOW BACK PAIN 08/08/2018 PEDRO CELISIS Ot T20.45XA CORROSION OF UNSPECIFIED DEGREE OF SCALP 08/08/2018 PEDRO CELISIS Ot T32.0 CORROSIONS INVOLVING LESS THAN 10% OF DEREK 08/08/2018 PEDRO CELISIS Ot 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, UNDETERM 08/08/2018 NIK CELIS Ot W19.XXXA UNSPECIFIED FALL, INITIAL ENCOUNTER 08/08/2018 NIK CELIS Ot Z79.01 CARE HOME (CURRENT) USE OF ANTICOAGULANT 08/08/2018 PEDRO CELISIS Ot Z79.51 CARE HOME (CURRENT) USE OF INHALED STERO 08/08/2018 PEDRO CELISIS Ot Z87.01 PERSONAL HISTORY OF PNEUMONIA (RECURRENT 08/08/2018 LALITA NIK Ot Z87.891 PERSONAL HISTORY OF NICOTINE DEPENDENCE 08/08/2018 LALITA NIK Ot Z88.8 ALLERGY STATUS TO [facility] DRUG/MEDS/BIOL SUB 08/08/2018 NIK CELIS Ot Z93.0 TRACHEOSTOMY STATUS 08/08/2018 NIK CELIS Ot Z95.810 PRESENCE OF AUTOMATIC (IMPLANTABLE) CARD 08/08/2018 NIK CELIS Ot Z98.890 OTHER SPECIFIED POSTPROCEDURAL STATES 10/24/2018 FELECIA FORTUNE MD Ot I08. 3 COMB RHEUMATIC DISORD OF MITRAL, AORTIC 10/24/2018 FELECIA FORTUNE MD Ot I10 ESSENTIAL (PRIMARY) HYPERTENSION 10/24/2018 FELECIA FORTUNE MD, Ot I25. 2 OLD MYOCARDIAL INFARCTION 10/24/2018 FELECIA FORTUNE MD, Ot I42. 9 CARDIOMYOPATHY, UNSPECIFIED 10/24/2018 FELECIA FORTUNE MD Ot R00. 1 BRADYCARDIA, UNSPECIFIED 10/24/2018 FELECIA FORTUNE MD Ot Z79. 01 CARE HOME (CURRENT) USE OF ANTICOAGULANT 11/01/2018 RALPH LÓPEZ MD Ot D64.9 ANEMIA, UNSPECIFIED 11/01/2018 RALPH LÓPEZ MD Ot F31.9 BIPOLAR DISORDER, UNSPECIFIED 11/01/2018 RALPH LÓPEZ MD, Ot F41.9 ANXIETY DISORDER, UNSPECIFIED 11/01/2018 RALPH LÓPEZ MD Ot I12.9 HYPERTENSIVE CHRONIC KIDNEY DISEASE W ST 11/01/2018 RALPH LÓPEZ MD Ot I16.0 HYPERTENSIVE URGENCY 11/01/2018 RALPH LÓPEZ MD, Ot I25.2 OLD MYOCARDIAL INFARCTION 11/01/2018 RALPH LÓPEZ MD, Ot I42.9 CARDIOMYOPATHY, UNSPECIFIED 11/01/2018 RALPH LÓPEZ MD Ot K21.9 GASTRO-ESOPHAGEAL REFLUX DISEASE WITHOUT 11/01/2018 RALPH LÓPEZ MD Ot M79.661 PAIN IN RIGHT LOWER LEG 11/01/2018 RALPH LÓPEZ MD Ot N18.9 CHRONIC KIDNEY DISEASE, UNSPECIFIED 11/01/2018 RALPH LÓPEZ MD Ot R06.02 SHORTNESS OF BREATH 11/01/2018 RALPH LÓPEZ MD Ot R07.89 OTHER CHEST PAIN 11/01/2018 RALPH LÓPEZ MD Ot R51 HEADACHE 11/01/2018 RALPH LÓPEZ MD, Ot 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 11/01/2018 RALPH LÓPEZ MD Ot Z79.51 DROP MACHINE OPERATOR (CURRENT) USE OF INHALED STERO [...] MD, Ot I25.2 OLD MYOCARDIAL INFARCTION 11/03/2018 BRUEGGEMANN MD, RALPH T Ot I42.9 CARDIOMYOPATHY, UNSPECIFIED 11/03/2018 RALPH LÓPEZ MD, Ot K21.9 GASTRO-ESOPHAGEAL REFLUX DISEASE WITHOUT 11/03/2018 RALPH LÓPEZ MD Ot M79.661 PAIN IN RIGHT LOWER LEG 11/03/2018 RALPH LÓPEZ MD, Ot N18.9 CHRONIC KIDNEY DISEASE, UNSPECIFIED 11/03/2018 RALPH LÓPEZ MD, Ot R06.02 SHORTNESS OF BREATH 11/03/2018 RALPH LÓPEZ MD, Ot R07.89 OTHER CHEST PAIN 11/03/2018 RALPH LÓPEZ MD, Ot R51 HEADACHE 11/03/2018 RALPH LÓPEZ MD, Ot 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 11/03/2018 RALPH LÓPEZ MD, Ot Z79.51 DROP MACHINE OPERATOR (CURRENT) USE OF INHALED STERO [...] Ot Z93.0 TRACHEOSTOMY STATUS 11/03/2018 RALPH LÓPEZ MD, Ot Z95.810 PRESENCE OF [...] R07.89 OTHER CHEST PAIN 11/09/2018 RALPH LÓPEZ MD Ot R51 HEADACHE 11/09/2018 RALPH LÓPEZ MD, Ot Z79.01 CARE HOME (CURRENT) USE OF ANTICOAGULANT 11/09/2018 RALPH LÓPEZ MD Ot Z79.51 DROP MACHINE OPERATOR (CURRENT) USE OF INHALED STERO 11/09/2018 RALPH [...] OF AUTOMATIC (IMPLANTABLE) CARD 11/09/2018 RALPH LÓPEZ MD Ot Z98.890 OTHER SPECIFIED POSTPROCEDURAL STATES 01/01/2019 DANIELKEV NIK Ot F31.9 BIPOLAR DISORDER, UNSPECIFIED 01/01/2019 NIK CELIS Ot F41.9 ANXIETY DISORDER, UNSPECIFIED 01/01/2019 LALITAPEDROIS Ot I42.9 CARDIOMYOPATHY, UNSPECIFIED 01/01/2019 LALITA NIK Ot J40 BRONCHITIS, NOT SPECIFIED ACUTE OR CH 01/01/2019 NIK CELIS Ot K21.9 GASTRO-ESOPHAGEAL REFLUX DISEASE WITHOUT 01/01/2019 NIK CELIS Ot R05 COUGH 01/01/2019 NIK CELIS Ot Z79.01 CARE HOME (CURRENT) USE OF ANTICOAGULANT 01/01/2019 NIK CELIS Ot Z79.51 CARE HOME (CURRENT) USE OF INHALED STERO 01/01/2019 NIK CELIS Ot Z87.01 PERSONAL HISTORY OF PNEUMONIA (RECURRENT 01/01/2019 NIK CELIS Ot Z87.448 PERSONAL HISTORY OF OTHER DISEASES OF UR 01/01/2019 NIK CELIS Ot Z87.820 PERSONAL HISTORY OF TRAUMATIC BRAIN INJU 01/01/2019 NIK CELIS Ot Z87.891 PERSONAL HISTORY OF NICOTINE DEPENDENCE 01/01/2019 NIK CELIS Ot Z88.8 ALLERGY STATUS TO [facility] DRUG/MEDS/BIOL SUB 01/01/2019 NIK CELIS Ot [...] FAILURE NOS 01/05/2019 FELECIA FORTUNE MD Ot 397. 0 TRICUSPID VALVE DISEASE 01/05/2019 FELECIA FORTUNE MD Ot 401. 9 HYPERTENSION NOS 01/05/2019 FELECIA FORTUNE MD Ot 425. 4 PRIM CARDIOMYOPATHY NEC 01/05/2019 FELECIA FORTUNE MD Ot 428. 0 CONGESTIVE HEART FAILURE NOS 01/05/2019 BLANCO BERMAN Ot G93.1 ANOXIC BRAIN DAMAGE, NOT ELSEWHERE CLASS 01/05/2019 NERISSA LAURA BLANCO K Ot I10 ESSENTIAL (PRIMARY) HYPERTENSION 01/05/2019 BLANCO BERMAN Ot I50.1 LEFT VENTRICULAR FAILURE 01/05/2019 BLANCO BERMAN Ot R09.2 RESPIRATORY ARREST 01/05/2019 NERISSA LAURA BLANCO K Ot G93.1 ANOXIC BRAIN DAMAGE, NOT ELSEWHERE CLASS 01/05/2019 BLANCO BERMAN Ot I11.0 HYPERTENSIVE HEART DISEASE WITH HEART FA 01/05/2019 BLANCO BERMAN Ot I50.1 LEFT VENTRICULAR FAILURE, UNSPECIFIED 01/05/2019 BLANCO BERMAN Ot I51.3 INTRACARDIAC THROMBOSIS, NOT ELSEWHERE C 01/05/2019 FELECIA FORTUNE MD Ot I08. 3 COMB RHEUMATIC DISORD OF MITRAL, AORTIC 01/05/2019 FELECIA FORTUNE MD Ot I10 ESSENTIAL (PRIMARY) HYPERTENSION 01/05/2019 FELECIA FORTUNE MD Ot I25. 2 OLD MYOCARDIAL INFARCTION 01/05/2019 FELECIA FORTUNE MD Ot I42. 9 CARDIOMYOPATHY, UNSPECIFIED 01/05/2019 FELECIA FORTUNE MD Ot R00. 1 BRADYCARDIA, UNSPECIFIED 01/05/2019 FELECIA FORTUNE MD Ot Z79. 01 DROP MACHINE OPERATOR (CURRENT) USE OF ANTICOAGULANT 01/06/2019 BLANCO BERMAN Ot 401.9 HYPERTENSION NOS 01/06/2019 BLANCO BERMAN Ot 425.4 PRIM CARDIOMYOPATHY NEC 01/06/2019 BLANCO BERMAN Ot 427.5 CARDIAC ARREST 01/06/2019 BLANCO BERMAN Ot 428.0 CONGESTIVE HEART FAILURE NOS 01/06/2019 FELECIA FORTUNE MD Ot 397. 0 TRICUSPID VALVE DISEASE 01/06/2019 FELECIA FORTUNE MD Ot 401. 9 HYPERTENSION NOS 01/06/2019 FELECIA FORTUNE MD Ot 425. 4 PRIM CARDIOMYOPATHY NEC 01/06/2019 FELECIA FORTUNE MD Ot 428. 0 CONGESTIVE HEART FAILURE NOS 01/06/2019 NERISSA LAURA, BLANCO Mohan Ot G93.1 ANOXIC BRAIN DAMAGE, NOT ELSEWHERE [...] ELSEWHERE C 01/06/2019 FELECIA FORTUNE MD Ot I08. 3 COMB RHEUMATIC DISORD OF MITRAL, AORTIC 01/06/2019 FELECIA FORTUNE MD Ot I10 ESSENTIAL (PRIMARY) HYPERTENSION 01/06/2019 FELECIA FORTUNE MD Ot I25. 2 OLD MYOCARDIAL INFARCTION 01/06/2019 FELECIA FORTUNE MD Ot I42. 9 CARDIOMYOPATHY, UNSPECIFIED 01/06/2019 FELECIA FORTUNE MD Ot R00. 1 BRADYCARDIA, UNSPECIFIED 01/06/2019 FELECIA FORTUNE MD Ot Z79. 01 DROP MACHINE OPERATOR (CURRENT) USE OF ANTICOAGULANT 01/06/2019 FEDE AMARO MD Ot D64.9 ANEMIA, UNSPECIFIED 01/06/2019 FEDE AMARO MD Ot F31.9 BIPOLAR DISORDER, UNSPECIFIED 01/06/2019 FEDE AMARO MD Ot F41.9 ANXIETY DISORDER, UNSPECIFIED 01/06/2019 FEDE AMARO MD Ot I25.2 OLD MYOCARDIAL INFARCTION 01/06/2019 FEDE AMARO MD Ot I42.9 CARDIOMYOPATHY, UNSPECIFIED 01/06/2019 FEDE AMARO MD Ot K21.9 GASTRO-ESOPHAGEAL REFLUX DISEASE WITHOUT 01/06/2019 FEDE AMARO MD Ot R07.89 OTHER CHEST PAIN 01/06/2019 FEDE AMARO MD, Ot S29.011A STRAIN OF MUSCLE AND TENDON OF FRONT WAL 01/06/2019 FEDE AMARO MD, Ot W00.9XXA UNSPECIFIED FALL DUE TO ICE AND SNOW, IN 01/06/2019 FEDE AMARO MD, Ot Z79.01 CARE HOME (CURRENT) USE OF ANTICOAGULANT 01/06/2019 FEDE AMARO MD, Ot Z79.51 DROP MACHINE OPERATOR (CURRENT) USE OF INHALED STERO 01/06/2019 FEDE AMARO MD, Ot Z79.52 DROP MACHINE OPERATOR (CURRENT) USE OF SYSTEMIC STER 01/06/2019 FEDE [...] AMARO MD, Ot Z88.8 ALLERGY STATUS TO [facility] DRUG/MEDS/BIOL SUB 01/06/2019 FEDE AMARO MD, [...] OR CH 01/07/2019 NIK CELIS Ot K21.9 GASTRO-ESOPHAGEAL REFLUX DISEASE WITHOUT 01/07/2019 NIK CELIS Ot R05 COUGH 01/07/2019 NIK CELIS Ot Z79.01 CARE HOME (CURRENT) USE OF ANTICOAGULANT 01/07/2019 NIK CELIS Ot Z79.51 CARE HOME (CURRENT) USE OF INHALED STERO 01/07/2019 DANIELKEVNIK Ot Z87.01 PERSONAL HISTORY OF PNEUMONIA (RECURRENT 01/07/2019 PEDRO CELISIS Ot Z87.448 PERSONAL HISTORY OF OTHER DISEASES OF UR 01/07/2019 LALITA NIK Ot Z87.820 PERSONAL HISTORY OF TRAUMATIC BRAIN INJU 01/07/2019 DANIELNIK ANGULO Ot Z87.891 PERSONAL HISTORY OF NICOTINE DEPENDENCE 01/07/2019 DANIELNIK ANGULO Ot Z88.8 ALLERGY STATUS TO [facility] DRUG/MEDS/BIOL SUB 01/07/2019 NIK CELIS Ot Z93.0 TRACHEOSTOMY STATUS 01/07/2019 NIK CELIS Ot Z95.810 PRESENCE OF AUTOMATIC (IMPLANTABLE) CARD 01/07/2019 NIK CELIS Ot Z98.890 OTHER SPECIFIED POSTPROCEDURAL STATES 01/09/2019 FEDE AMARO MD Ot D64.9 ANEMIA, UNSPECIFIED 01/09/2019 FEDE AMARO MD Ot F31.9 BIPOLAR DISORDER, UNSPECIFIED 01/09/2019 FEDE AMARO MD Ot F41.9 ANXIETY DISORDER, UNSPECIFIED 01/09/2019 FEDE AMARO MD Ot I25.2 OLD MYOCARDIAL INFARCTION 01/09/2019 FEDE AMARO MD Ot I42.9 CARDIOMYOPATHY, UNSPECIFIED 01/09/2019 FEDE AMARO MD Ot K21.9 GASTRO-ESOPHAGEAL REFLUX DISEASE WITHOUT 01/09/2019 FEDE AMARO MD Ot R07.89 OTHER CHEST PAIN 01/09/2019 FEDE AMARO MD Ot S29.011A STRAIN OF MUSCLE AND TENDON OF FRONT WAL 01/09/2019 FEDE AMARO MD Ot W00.9XXA UNSPECIFIED FALL DUE TO ICE AND SNOW, IN 01/09/2019 FEDE AMARO MD Ot 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 01/09/2019 FEDE AMARO MD Ot Z79.51 CARE HOME (CURRENT) USE OF INHALED STERO 01/09/2019 FEDE AMARO MD, Ot Z79.52 CARE HOME (CURRENT) USE OF SYSTEMIC STER 01/09/2019 FEDE [...] AMARO MD, Ot Z88.8 ALLERGY STATUS TO [facility] DRUG/MEDS/BIOL SUB 01/09/2019 FEDE AMARO MD, Ot [...] ELBOW 04/09/2019 DELIO ARIZA DO, Ot 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 04/09/2019 DELIO ARIZA DO, Ot Z79.52 DROP MACHINE OPERATOR (CURRENT) USE OF SYSTEMIC STER 04/09/2019 DELIO ARIZA DO, Ot Z86.69 PERSONAL HISTORY OF DIS OF THE NERVOUS S 04/09/2019 DELIO ARIZA DO, Ot Z86.79 PERSONAL HISTORY OF OTHER DISEASES OF TH 04/09/2019 DELIO ARIZA DO, Ot Z87.01 PERSONAL HISTORY OF PNEUMONIA (RECURRENT 04/09/2019 DELIO ARIZA DO, Ot Z87.09 PERSONAL HISTORY OF OTHER DISEASES OF TH 04/09/2019 DELIO ARIZA DO Ot Z88.8 ALLERGY STATUS TO [facility] DRUG/MEDS/BIOL SUB 04/09/2019 DELIO ARIZA DO Ot Z93.0 TRACHEOSTOMY STATUS 04/09/2019 DELIO ARIZA DO Ot Z95.810 PRESENCE OF AUTOMATIC (IMPLANTABLE) CARD 04/09/2019 DELIO ARIZA DO Ot Z98.890 OTHER SPECIFIED POSTPROCEDURAL STATES 04/09/2019 BLANCO BERMAN Ot 401.9 HYPERTENSION NOS 04/09/2019 BLANCO BERMAN Ot 425.4 PRIM CARDIOMYOPATHY NEC 04/09/2019 BLANCO BERMAN Ot 427.5 CARDIAC ARREST 04/09/2019 BLANCO BERMAN Ot 428.0 CONGESTIVE HEART FAILURE NOS 04/09/2019 FELECIA FORTUNE MD Ot 397. 0 TRICUSPID VALVE DISEASE 04/09/2019 FELECIA FORTUNE MD Ot 401. 9 HYPERTENSION NOS 04/09/2019 FELECIA FORTUNE MD Ot 425. 4 PRIM CARDIOMYOPATHY NEC 04/09/2019 FELECIA FORTUNE MD Ot 428. 0 CONGESTIVE HEART FAILURE NOS 04/09/2019 BLANCO BERMAN [...] ELSEWHERE C 04/09/2019 FELECIA FORTUNE MD Ot I08. 3 COMB RHEUMATIC DISORD OF MITRAL, AORTIC 04/09/2019 FELECIA FORTUNE MD Ot I10 ESSENTIAL (PRIMARY) HYPERTENSION 04/09/2019 FELECIA FORTUNE MD Ot I25. 2 OLD MYOCARDIAL INFARCTION 04/09/2019 FELECIA FORTUNE MD Ot I42. 9 CARDIOMYOPATHY, UNSPECIFIED 04/09/2019 FELECIA FORTUNE MD Ot R00. 1 BRADYCARDIA, UNSPECIFIED 04/09/2019 FELECIA FORTUNE MD Ot Z79. 01 DROP MACHINE OPERATOR (CURRENT) USE OF ANTICOAGULANT 04/12/2019 DELIO ARIZA [...] ELBOW 04/12/2019 DELIO ARIZA DO, Ot 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 04/12/2019 DELIO ARIZA DO, Ot Z79.52 DROP MACHINE OPERATOR (CURRENT) USE OF SYSTEMIC STER 04/12/2019 DELIO ARIZA DO, Ot Z86.69 PERSONAL HISTORY OF DIS OF THE NERVOUS S 04/12/2019 DELIO ARIZA DO, Ot Z86.79 PERSONAL HISTORY OF OTHER DISEASES OF 04/12/2019 DELIO ARIZA DO, Ot Z87.01 PERSONAL HISTORY OF PNEUMONIA (RECURRENT 04/12/2019 DELIO ARIZA DO, Ot Z87.09 PERSONAL HISTORY OF OTHER DISEASES OF 04/12/2019 DELIO ARIZA DO, Ot Z88.8 ALLERGY STATUS TO [facility] DRUG/MEDS/BIOL SUB 04/12/2019 DELIO ARIZA DO, Ot Z93.0 TRACHEOSTOMY STATUS 04/12/2019 DELIO ARIZA DO, Ot Z95.810 PRESENCE OF AUTOMATIC (IMPLANTABLE) CARD 04/12/2019 DELIO ARIZA DO, Ot Z98.890 OTHER SPECIFIED POSTPROCEDURAL STATES 04/12/2019 BULMARO MAZARIEGOS, EDISON E Ot D64.9 ANEMIA, UNSPECIFIED 04/12/2019 EDISON CHAMBERLAIN [...] ABDOMINAL PAIN 04/12/2019 EDISON CHAMBERLAIN MD, Ot R11.1 0 VOMITING, UNSPECIFIED 04/12/2019 EDISON CHAMBERLAIN MD, Ot R51 HEADACHE 04/12/2019 EDISON CHAMBERLAIN MD, Ot Z79.0 1 DROP MACHINE OPERATOR (CURRENT) USE OF ANTICOAGULANT 04/12/2019 EDISON CHAMBERLAIN MD, Ot Z79.5 2 DROP MACHINE OPERATOR (CURRENT) USE OF SYSTEMIC STER 04/12/2019 EDISON CHAMBERLAIN MD, Ot Z86.7 3 PRSNL HX OF TIA (TIA), AND CEREB INFRC W 04/12/2019 EDISON CHAMBERLAIN MD, Ot Z87.0 1 PERSONAL HISTORY OF PNEUMONIA (RECURRENT 04/12/2019 EDISON CHAMBERLAIN MD, Ot Z87.0 9 PERSONAL HISTORY OF OTHER DISEASES OF TH 04/12/2019 EDISON CHAMBERLAIN MD, Ot Z87.8 20 PERSONAL HISTORY OF TRAUMATIC BRAIN INJU 04/12/2019 EDISON CHAMBERLAIN MD, Ot Z88.8 ALLERGY STATUS TO OTH DRUG/MEDS/BIOL SUB 04/12/2019 EDISON CHAMBERLAIN MD, Ot Z93.0 TRACHEOSTOMY STATUS 04/12/2019 EDISON CHAMBERLAIN MD, Ot Z95.8 10 PRESENCE OF AUTOMATIC (IMPLANTABLE) CARD 04/12/2019 EDISON CHAMBERLAIN MD, Ot Z98.8 90 OTHER SPECIFIED POSTPROCEDURAL STATES 04/16/2019 EDISON CHAMBERLAIN [...] ABDOMINAL PAIN 04/16/2019 EDISON CHAMBERLAIN MD, Ot R11.1 0 VOMITING, UNSPECIFIED 04/16/2019 EDISON CHAMBERLAIN MD, Ot R51 HEADACHE 04/16/2019 EDISON CHAMBERLAIN MD, Ot Z79.0 1 CARE HOME (CURRENT) USE OF ANTICOAGULANT 04/16/2019 EDISON CHAMBERLAIN MD, Ot Z79.5 2 DROP MACHINE OPERATOR (CURRENT) USE OF SYSTEMIC STER 04/16/2019 EDISON CHAMBERLAIN MD, Ot Z86.7 3 PRSNL HX OF TIA (TIA), AND CEREB INFRC W 04/16/2019 EDISON CHAMBERLAIN MD, Ot Z87.0 1 PERSONAL HISTORY OF PNEUMONIA (RECURRENT 04/16/2019 EDISON CHAMBERLAIN MD, Ot Z87.0 9 PERSONAL HISTORY OF OTHER DISEASES OF TH 04/16/2019 EDISON CHAMBERLAIN MD, Ot Z87.8 20 PERSONAL HISTORY OF TRAUMATIC BRAIN INJU 04/16/2019 EDISON CHAMBERLAIN MD, Ot Z88.8 ALLERGY STATUS TO OTH DRUG/MEDS/BIOL SUB 04/16/2019 EDISON CHAMBERLAIN MD, Ot Z93.0 TRACHEOSTOMY STATUS 04/16/2019 EDISON CHAMBERLAIN MD, Ot Z95.8 10 PRESENCE OF AUTOMATIC (IMPLANTABLE) CARD 04/16/2019 EDISON CHAMBERLAIN MD, Ot Z98.8 90 OTHER SPECIFIED POSTPROCEDURAL STATES 04/19/2019 LISA MARCELINO TEACHER ADULT EDUCATION Ot D64 .9 ANEMIA, UNSPECIFIED 04/19/2019 LISA MARCELINO APRN Ot F31 .9 BIPOLAR DISORDER, UNSPECIFIED 04/19/2019 LISA MARCELINO APRN Ot F41 .9 ANXIETY DISORDER, UNSPECIFIED 04/19/2019 LISA MARCELINO APRN Ot I25 .2 OLD MYOCARDIAL INFARCTION 04/19/2019 LISA MARCELINO APRN Ot I42 .9 CARDIOMYOPATHY, UNSPECIFIED 04/19/2019 LISA MARCELINO APRN Ot I50 .9 HEART FAILURE, UNSPECIFIED 04/19/2019 LISA MARCELINO APRN Ot K21 .9 GASTRO-ESOPHAGEAL REFLUX DISEASE WITHOUT 04/19/2019 LISA MARCELINO APRN Ot R06.09 OTHER FORMS OF DYSPNEA 04/19/2019 LISA MARCELINO APRN Ot R53.81 OTHER MALAISE 04/19/2019 LISA MARCELINO APRN Ot R53.83 OTHER FATIGUE 04/19/2019 LISA MARCELINO APRN Ot 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 04/19/2019 LISA MARCELINO APRN Ot Z79.52 DROP MACHINE OPERATOR (CURRENT) USE OF SYSTEMIC STER 04/19/2019 LISA MARCELINO APRN Ot Z86.69 PERSONAL HISTORY OF DIS OF THE NERVOUS S 04/19/2019 LISA MARCELINO APRN Ot Z86.79 PERSONAL HISTORY OF OTHER DISEASES OF TH 04/19/2019 LISA MARCELINO APRN Ot Z87.01 PERSONAL HISTORY OF PNEUMONIA (RECURRENT 04/19/2019 LISA MARCELINO APRN Ot Z87.09 PERSONAL HISTORY OF OTHER DISEASES OF TH 04/19/2019 LISA MARCELINO APRN Ot Z88 .8 ALLERGY STATUS TO OT DRUG/MEDS/BIOL SUB 04/19/2019 LISA MARCELINO APRN Ot Z93 .0 TRACHEOSTOMY STATUS 04/19/2019 LISA MARCELINO APRN Ot [...] WITHOUT 04/20/2019 RICHARD DO, VINITA L Ot M25.4 71 EFFUSION, RIGHT ANKLE 04/20/2019 RICHARD DO, VINITA L Ot Z79.0 1 DROP MACHINE OPERATOR (CURRENT) USE OF ANTICOAGULANT 04/20/2019 RICHARD DO, VINITA L Ot Z87.0 1 PERSONAL HISTORY OF PNEUMONIA (RECURRENT 04/20/2019 RICHARD DO, VINITA L Ot Z88.8 ALLERGY STATUS TO OTH DRUG/MEDS/BIOL SUB 04/20/2019 RICHARD DO, VINITA L Ot Z93.0 TRACHEOSTOMY STATUS 04/20/2019 RICHARD DO, VINITA L Ot Z95.8 10 PRESENCE OF AUTOMATIC (IMPLANTABLE) CARD 04/25/2019 RICHARD [...] WITHOUT 04/25/2019 RICHARD DO, VINITA L Ot M25.4 71 EFFUSION, RIGHT ANKLE 04/25/2019 RICHARD DO, VINITA L Ot Z79.0 1 DROP MACHINE OPERATOR (CURRENT) USE OF ANTICOAGULANT 04/25/2019 RICHARD DO, VINITA L Ot Z87.0 1 PERSONAL HISTORY OF PNEUMONIA (RECURRENT 04/25/2019 RICHARD DO, VINITA L Ot Z88.8 ALLERGY STATUS TO OTH DRUG/MEDS/BIOL SUB 04/25/2019 RICHARD DO, VINITA L Ot Z93.0 TRACHEOSTOMY STATUS 04/25/2019 RICHARD DO, VINITA L Ot Z95.8 10 PRESENCE OF AUTOMATIC (IMPLANTABLE) CARD 05/05/2019 NIK CELIS Ot D64.9 ANEMIA, UNSPECIFIED 05/05/2019 PEDRO CELISIS Ot F31.9 BIPOLAR DISORDER, UNSPECIFIED 05/05/2019 PEDRO CELISIS Ot F41.9 ANXIETY DISORDER, UNSPECIFIED 05/05/2019 NIK CELIS Ot I25.2 OLD MYOCARDIAL INFARCTION 05/05/2019 NIK CELIS Ot I42.9 CARDIOMYOPATHY, UNSPECIFIED 05/05/2019 NIK CELIS Ot K21.9 GASTRO-ESOPHAGEAL REFLUX DISEASE WITHOUT 05/05/[address] [facility] COMPL OF OTHER CARDIAC ELECTRONIC D 05/05/2019 NIK CELIS Ot Z79.01 CARE HOME (CURRENT) USE OF ANTICOAGULANT 05/05/2019 BERNPEDRO ANGULOIS Ot Z79.52 CARE HOME (CURRENT) USE OF SYSTEMIC STER 05/05/2019 NIK CELIS Ot Z86.79 PERSONAL HISTORY OF OTHER DISEASES OF TH 05/05/2019 NIK CELIS Ot Z87.01 PERSONAL HISTORY OF PNEUMONIA (RECURRENT 05/05/2019 NIK CELIS Ot Z88.8 ALLERGY STATUS TO [facility] DRUG/MEDS/BIOL SUB 05/05/2019 NIK CELIS Ot Z93.0 TRACHEOSTOMY STATUS 05/05/2019 PEDRO CELISIS Ot Z95.810 PRESENCE OF AUTOMATIC (IMPLANTABLE) CARD 05/05/2019 NIK CELIS Ot Z98.890 OTHER SPECIFIED POSTPROCEDURAL STATES 05/06/2019 BLANCO BERMAN Ot 401.9 HYPERTENSION NOS 05/06/2019 BLANCO BERMAN Ot 425.4 PRIM CARDIOMYOPATHY NEC 05/06/2019 BLANCO BERMAN Ot 427.5 CARDIAC ARREST 05/06/2019 BLANCO BERMAN Ot 428.0 CONGESTIVE HEART FAILURE NOS 05/06/2019 FELECIA FORTUNE MD Ot 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 9 HYPERTENSION NOS 05/06/2019 FELECIA FORTUNE MD Ot 425. 4 PRIM CARDIOMYOPATHY NEC 05/06/2019 FELECIA FORTUNE MD Ot 428. 0 CONGESTIVE HEART FAILURE NOS 05/06/2019 BLANCO BERMAN [...] I51.3 INTRACARDIAC THROMBOSIS, NOT ELSEWHERE C 05/06/2019 TONG MAZARIEGOS, FELECIA Diaz Ot I08. 3 COMB RHEUMATIC DISORD OF MITRAL, AORTIC 05/06/2019 TONG MAZARIEGOS, FELECIA Diaz Ot I10 ESSENTIAL (PRIMARY) HYPERTENSION 05/06/2019 FELECIA FORTUNE MD Ot I25. 2 OLD MYOCARDIAL INFARCTION 05/06/2019 FELECIA FORTUNE MD Ot I42. 9 CARDIOMYOPATHY, UNSPECIFIED 05/06/2019 TONG MAZARIEGOS, FELECIA Diaz Ot R00. 1 BRADYCARDIA, UNSPECIFIED 05/06/2019 TONG MAZARIEGOS, FELECIA Diaz Ot Z79. 01 CARE HOME (CURRENT) USE OF ANTICOAGULANT 05/09/2019 LALITA, NIK Ot D64.9 ANEMIA, UNSPECIFIED 05/09/2019 BERNKEV, NIK Ot F31.9 BIPOLAR DISORDER, UNSPECIFIED 05/09/2019 BERNKEV, NIK Ot F41.9 ANXIETY DISORDER, UNSPECIFIED 05/09/2019 BERNKEV NIK Ot I25.2 OLD MYOCARDIAL INFARCTION 05/09/2019 BERNKEV NIK Ot I42.9 CARDIOMYOPATHY, UNSPECIFIED 05/09/2019 BERNOT, NIK Ot K21.9 GASTRO-ESOPHAGEAL REFLUX DISEASE WITHOUT 05/09/2019 BERNKEV, NIK Ot T82.198A [facility] COMPL OF OTHER CARDIAC ELECTRONIC D 05/09/2019 PEDRO CELISIS Ot Z79.01 CARE HOME (CURRENT) USE OF ANTICOAGULANT 05/09/2019 BERNKEV, NIK Ot Z79.52 DROP MACHINE OPERATOR (CURRENT) USE OF SYSTEMIC STER 05/09/2019 PEDRO CELISIS Ot Z86.79 PERSONAL HISTORY OF OTHER DISEASES OF TH 05/09/2019 NIK CELIS Ot Z87.01 PERSONAL HISTORY OF PNEUMONIA (RECURRENT 05/09/2019 NIK CELIS Ot Z88.8 ALLERGY STATUS TO OTH DRUG/MEDS/BIOL SUB 05/09/2019 NIK CELIS Ot Z93.0 TRACHEOSTOMY STATUS 05/09/2019 PEDRO CELISIS Ot Z95.810 PRESENCE OF AUTOMATIC (IMPLANTABLE) CARD 05/09/2019 PEDRO CELISIS Ot Z98.890 OTHER SPECIFIED POSTPROCEDURAL STATES 05/10/2019 ALEX BARRERA MD Ot F31.9 BIPOLAR DISORDER, UNSPECIFIED 05/10/2019 ALEX BARRERA MD, Ot F41.9 ANXIETY DISORDER, UNSPECIFIED 05/10/2019 ALEX BARRERA MD Ot I42.9 CARDIOMYOPATHY, UNSPECIFIED 05/10/2019 ALEX BARRERA MD Ot N19 UNSPECIFIED KIDNEY FAILURE 05/10/2019 ALEX BARRERA MD Ot T82.118A BREAKDOWN (MECHANICAL) OF CARDIAC ELECTR 05/10/2019 ALEX BARRERA MD Ot Z79.0 1 CARE HOME (CURRENT) USE OF ANTICOAGULANT 05/10/2019 ALEX BARRERA MD Ot Z79.8 99 OTHER CARE HOME (CURRENT) DRUG THERAPY 05/10/2019 ALEX BARRERA MD Ot Z86.7 18 PERSONAL HISTORY OF OTHER VENOUS THROMBO 05/10/2019 ALEX BARRERA MD Ot Z86.7 4 PERSONAL HISTORY OF SUDDEN CARDIAC ARRES 05/10/2019 ALEX BARRERA MD Ot Z87.8 20 PERSONAL HISTORY OF TRAUMATIC BRAIN INJU 05/10/2019 ALEX BARRERA MD Ot Z95.8 10 PRESENCE OF AUTOMATIC (IMPLANTABLE) CARD 05/10/2019 ALEX BARRERA MD Ot F31.9 BIPOLAR DISORDER, UNSPECIFIED 05/10/2019 ALEX BARRERA MD, Ot F41.9 ANXIETY DISORDER, UNSPECIFIED 05/10/2019 ALEX BARRERA MD Ot I42.9 CARDIOMYOPATHY, UNSPECIFIED 05/10/2019 ALEX BARRERA MD Ot N19 UNSPECIFIED KIDNEY FAILURE 05/10/2019 ALEX BARRERA MD Ot T82.118A BREAKDOWN (MECHANICAL) OF CARDIAC ELECTR 05/10/2019 ALEX BARRERA MD Ot Z79.0 1 CARE HOME (CURRENT) USE OF ANTICOAGULANT 05/10/2019 ALEX BARRERA MD Ot Z79.8 99 OTHER DROP MACHINE OPERATOR (CURRENT) DRUG THERAPY 05/10/2019 ALEX BARRERA MD Ot Z86.7 18 PERSONAL HISTORY OF OTHER VENOUS THROMBO 05/10/2019 ALEX BARRERA MD Ot Z86.7 4 PERSONAL HISTORY OF SUDDEN CARDIAC ARRES 05/10/2019 ALEX BARRERA MD Ot Z87.8 20 PERSONAL HISTORY OF TRAUMATIC BRAIN INJU 05/10/2019 ALEX BARRERA MD Ot Z95.8 10 PRESENCE OF AUTOMATIC (IMPLANTABLE) CARD 05/11/2019 NIK CELIS Ot D64.9 ANEMIA, UNSPECIFIED 05/11/2019 PEDRO CELISIS Ot F31.9 BIPOLAR DISORDER, UNSPECIFIED 05/11/2019 PEDRO CELISIS Ot F41.9 ANXIETY DISORDER, UNSPECIFIED 05/11/2019 NIK CELIS Ot I25.2 OLD MYOCARDIAL INFARCTION 05/11/2019 NIK CELIS Ot I42.9 CARDIOMYOPATHY, UNSPECIFIED 05/11/2019 PEDRO CELISIS Ot K21.9 GASTRO-ESOPHAGEAL REFLUX DISEASE WITHOUT 05/11/[address] [facility] COMPL OF OTHER CARDIAC ELECTRONIC D 05/11/2019 NIK CELIS Ot Z79.01 CARE HOME (CURRENT) USE OF ANTICOAGULANT 05/11/2019 PEDRO CELISIS Ot Z79.52 DROP MACHINE OPERATOR (CURRENT) USE OF SYSTEMIC STER 05/11/2019 PEDRO CELISIS Ot Z86.79 PERSONAL HISTORY OF OTHER DISEASES OF TH 05/11/2019 PEDRO CELISIS Ot Z87.01 PERSONAL HISTORY OF PNEUMONIA (RECURRENT 05/11/2019 PEDRO CELISIS Ot Z88.8 ALLERGY STATUS TO [facility] DRUG/MEDS/BIOL SUB 05/11/2019 PEDRO CELISIS Ot Z93.0 TRACHEOSTOMY STATUS 05/11/2019 PEDRO CELISIS Ot Z95.810 PRESENCE OF AUTOMATIC (IMPLANTABLE) CARD 05/11/2019 PEDRO CELISIS Ot Z98.890 OTHER SPECIFIED POSTPROCEDURAL STATES 05/11/2019 JÚNIOR MAZARIEGOS, ANTONIO Diaz Ot D64. 9 ANEMIA, UNSPECIFIED 05/11/2019 JÚNIOR MAZARIEGOS, ANTONIO Diaz Ot F31. 9 BIPOLAR DISORDER, UNSPECIFIED 05/11/2019 ANTONIO CALLEJAS MD Ot F41. 9 ANXIETY DISORDER, UNSPECIFIED 05/11/2019 ANTONIO CALLEJAS MD Ot I25. 2 OLD MYOCARDIAL INFARCTION 05/11/2019 ANTONIO CALLEJAS MD Ot I42. 9 CARDIOMYOPATHY, UNSPECIFIED 05/11/2019 ANTONIO CALLEJAS MD Ot K21. 9 GASTRO-ESOPHAGEAL REFLUX DISEASE WITHOUT 05/11/2019 ANTONIO CALLEJAS MD Ot L76. 34 POSTPROC SEROMA OF SKIN, SUBCU FOLLOWING 05/11/2019 ANTONIO CALLEJAS MD Ot Z79. 01 DROP MACHINE OPERATOR (CURRENT) USE OF ANTICOAGULANT 05/11/2019 ANTONIO CALLEJAS MD Ot Z86. 79 PERSONAL HISTORY OF OTHER DISEASES OF 05/11/2019 ANTONIO CALLEJAS MD Ot Z87. 01 PERSONAL HISTORY OF PNEUMONIA (RECURRENT 05/11/2019 ANTONIO CALLEJAS MD Ot Z87. 09 PERSONAL HISTORY OF OTHER DISEASES OF 05/11/2019 ANTONIO CALLEJAS MD Ot Z88. 8 ALLERGY STATUS TO [facility] DRUG/MEDS/BIOL SUB 05/11/2019 ANTONIO CALLEJAS MD Ot Z93. 0 TRACHEOSTOMY STATUS 05/11/2019 ANTONIO CALLEJAS MD Ot Z95. 0 PRESENCE OF CARDIAC PACEMAKER 05/11/2019 ANTONIO CALLEJAS MD Ot Z95.810 PRESENCE OF AUTOMATIC (IMPLANTABLE) CARD 05/11/2019 ANTONIO CALLEJAS MD Ot Z98.890 OTHER SPECIFIED POSTPROCEDURAL STATES 05/14/2019 ANTONIO CALLEJAS MD Ot D64. 9 ANEMIA, UNSPECIFIED 05/14/2019 ANTONIO CALLEJAS MD Ot F31. 9 BIPOLAR DISORDER, UNSPECIFIED 05/14/2019 ANTONIO CALLEJAS MD Ot F41. 9 ANXIETY DISORDER, UNSPECIFIED 05/14/2019 ANTONIO CALLEJAS MD Ot I25. 2 OLD MYOCARDIAL INFARCTION 05/14/2019 ANTONIO CALLEJAS MD Ot I42. 9 CARDIOMYOPATHY, UNSPECIFIED 05/14/2019 ANTONIO CALLEJAS MD Ot K21. 9 GASTRO-ESOPHAGEAL REFLUX DISEASE WITHOUT 05/14/2019 ANTONIO CALLEJAS MD Ot L76. 34 POSTPROC SEROMA OF SKIN, SUBCU FOLLOWING 05/14/2019 ANTONIO CALLEJAS MD Ot Z79. 01 CARE HOME (CURRENT) USE OF ANTICOAGULANT 05/14/2019 ANTONIO CALLEJAS MD Ot Z86. 79 PERSONAL HISTORY OF OTHER DISEASES OF TH 05/14/2019 ANTONIO CALLEJAS MD, Ot Z87. 01 PERSONAL HISTORY OF PNEUMONIA (RECURRENT 05/14/2019 ANTONIO CALLEJAS MD Ot Z87. 09 PERSONAL HISTORY OF OTHER DISEASES OF TH 05/14/2019 ANTONIO CALLEJAS MD Ot Z88. 8 ALLERGY STATUS TO OTH DRUG/MEDS/BIOL SUB 05/14/2019 ANTONIO CALLEJAS MD Ot Z93. 0 TRACHEOSTOMY STATUS 05/14/2019 ANTONIO CALLEJAS MD Ot Z95. 0 PRESENCE OF CARDIAC PACEMAKER 05/14/2019 ANTONIO CALLEJAS MD Ot Z95.810 PRESENCE OF AUTOMATIC (IMPLANTABLE) CARD 05/14/2019 ANTONIO CALLEJAS MD Ot Z98.890 OTHER SPECIFIED POSTPROCEDURAL STATES 05/22/2019 DELIO ARIZA DO, Ot F31.9 BIPOLAR DISORDER, UNSPECIFIED 05/22/2019 DELIO ARIZA DO, Ot F41.9 ANXIETY DISORDER, UNSPECIFIED 05/22/2019 DELIO ARIZA DO, Ot I1 0 ESSENTIAL (PRIMARY) HYPERTENSION 05/22/2019 DELIO ARIZA DO, Ot J4 2 UNSPECIFIED CHRONIC BRONCHITIS 05/22/2019 DELIO ARIZA DO, Ot K21.9 GASTRO-ESOPHAGEAL REFLUX DISEASE WITHOUT 05/22/2019 DELIO ARIZA DO, Ot M94.0 CHONDROCOSTAL JUNCTION SYNDROME [TIETZE] 05/22/2019 DELIO ARIZA DO, Ot R07.9 CHEST PAIN, UNSPECIFIED 05/22/2019 DELIO ARIZA DO, Ot Z87.01 PERSONAL HISTORY OF PNEUMONIA (RECURRENT 05/22/2019 DELIO ARIZA DO, Ot Z88.8 ALLERGY STATUS TO OTH DRUG/MEDS/BIOL SUB 05/22/2019 DELIO ARIZA DO Ot Z93.0 TRACHEOSTOMY STATUS 05/22/2019 DELIO ARIZA DO Ot Z95.810 PRESENCE OF AUTOMATIC (IMPLANTABLE) CARD 05/24/2019 DELIO ARIZA DO, Ot F31.9 BIPOLAR DISORDER, UNSPECIFIED 05/24/2019 DELIO ARIZA DO, Ot F41.9 ANXIETY DISORDER, UNSPECIFIED 05/24/2019 DELIO ARIZA DO Ot I1 0 ESSENTIAL (PRIMARY) HYPERTENSION 05/24/2019 TO DELIO TINSLEY Ot J4 2 UNSPECIFIED CHRONIC BRONCHITIS 05/24/2019 DELIO ARIZA DO Ot K21.9 GASTRO-ESOPHAGEAL REFLUX DISEASE WITHOUT 05/24/2019 DELIO ARIZA DO Ot M94.0 CHONDROCOSTAL JUNCTION SYNDROME [TIETZE] 05/24/2019 TO DELIO TINSLEY Ot R07.9 CHEST PAIN, UNSPECIFIED 05/24/2019 DELIO ARIZA DO Ot Z87.01 PERSONAL HISTORY OF PNEUMONIA (RECURRENT 05/24/2019 DELIO ARIZA DO Ot Z88.8 ALLERGY STATUS TO OTH DRUG/MEDS/BIOL SUB 05/24/2019 TODELIO CAMACHO DO Ot Z93.0 TRACHEOSTOMY STATUS 05/24/2019 DELIO ARIZA DO Ot Z95.810 PRESENCE OF AUTOMATIC (IMPLANTABLE) CARD 06/04/2019 MARIBEL MAZARIEGOS, RALPH Mcelroy Ot F31.9 BIPOLAR DISORDER, UNSPECIFIED 06/04/2019 RALPH LÓPEZ MD Ot F41.9 ANXIETY DISORDER, UNSPECIFIED 06/04/2019 MARIBEL MAZARIEGOS, RALPH Mcelroy Ot G47.00 INSOMNIA, UNSPECIFIED 06/04/2019 RALPH LÓPEZ MD Ot I10 ESSENTIAL (PRIMARY) HYPERTENSION 06/04/2019 MARIBEL MAZARIEGOS, RALPH Mcelroy Ot I42.9 CARDIOMYOPATHY, UNSPECIFIED 06/04/2019 RALPH LÓPEZ MD Ot J42 UNSPECIFIED CHRONIC BRONCHITIS 06/04/2019 RALPH LÓPEZ MD Ot K21.9 GASTRO-ESOPHAGEAL REFLUX DISEASE WITHOUT 06/04/2019 MARIBEL MAZARIEGOS, RALPH Mcelroy Ot R07.89 OTHER CHEST PAIN 06/04/2019 MARIBEL MAZARIEGOS, RALPH Mcelroy Ot Z87.01 PERSONAL HISTORY OF PNEUMONIA (RECURRENT 06/04/2019 MARIBEL MAZARIEGOS, RALPH Mcelroy Ot Z88.5 ALLERGY STATUS TO NARCOTIC AGENT STATUS 06/04/2019 RALPH LÓPEZ MD Ot Z88.8 ALLERGY STATUS TO OTH DRUG/MEDS/BIOL SUB 06/04/2019 RALPH LÓPEZ MD Ot Z93.0 TRACHEOSTOMY STATUS 06/04/2019 MARIBEL MAZARIEGOS, RALPH Mcelroy Ot Z95.810 PRESENCE OF AUTOMATIC (IMPLANTABLE) CARD 06/11/2019 RALPH LÓPEZ MD Ot F31.9 BIPOLAR DISORDER, UNSPECIFIED 06/11/2019 RALPH LÓPEZ MD Ot F41.9 ANXIETY DISORDER, UNSPECIFIED 06/11/2019 RALPH LÓPEZ MD Ot G47.00 INSOMNIA, UNSPECIFIED 06/11/2019 RALPH LÓPEZ MD Ot I10 ESSENTIAL (PRIMARY) HYPERTENSION 06/11/2019 RALPH LÓPEZ MD Ot I42.9 CARDIOMYOPATHY, UNSPECIFIED 06/11/2019 RALPH LÓPEZ MD Ot J42 UNSPECIFIED CHRONIC BRONCHITIS 06/11/2019 RALPH LÓPEZ MD Ot K21.9 GASTRO-ESOPHAGEAL REFLUX DISEASE WITHOUT 06/11/2019 RALPH LÓPEZ MD Ot R07.89 OTHER CHEST PAIN 06/11/2019 RALPH LÓPEZ MD Ot Z87.01 PERSONAL HISTORY OF PNEUMONIA (RECURRENT 06/11/2019 MARIBEL MAZARIEGOS, RALPH Mcelroy Ot Z88.5 ALLERGY STATUS TO NARCOTIC AGENT STATUS 06/11/2019 RALPH LÓPEZ MD Ot Z88.8 ALLERGY STATUS TO OTH DRUG/MEDS/BIOL SUB 06/11/2019 RALPH LÓPEZ MD Ot Z93.0 TRACHEOSTOMY STATUS 06/11/2019 RALPH LÓPEZ MD Ot Z95.810 PRESENCE OF AUTOMATIC (IMPLANTABLE) CARD 07/12/2019 BLAYNE BERRY [facility] Ot M25.462 EFFUSION, LEFT KNEE 07/28/2019 FEDE AMARO MD Ot F31.9 BIPOLAR DISORDER, UNSPECIFIED 07/28/2019 FEDE AMARO MD Ot F41.9 ANXIETY DISORDER, UNSPECIFIED 07/28/2019 FEDE AMARO MD Ot I10 ESSENTIAL (PRIMARY) HYPERTENSION 07/28/2019 FEDE AMARO MD Ot I42.9 CARDIOMYOPATHY, UNSPECIFIED 07/28/2019 FEDE AMARO MD Ot J42 UNSPECIFIED CHRONIC BRONCHITIS 07/28/2019 FEDE AMARO MD Ot K21.9 GASTRO-ESOPHAGEAL REFLUX DISEASE WITHOUT 07/28/2019 FEDE AMARO MD, Ot R51 HEADACHE 07/28/2019 FEDE AMARO MD, Ot Z86.74 PERSONAL HISTORY OF SUDDEN CARDIAC ARRES 07/28/2019 FEDE AMARO MD, Ot Z88.5 ALLERGY STATUS TO NARCOTIC AGENT STATUS 07/28/2019 FEDE AMARO MD, Ot Z88.8 ALLERGY STATUS TO OTH DRUG/MEDS/BIOL SUB 07/28/2019 FEDE AMARO MD, Ot Z93.0 TRACHEOSTOMY STATUS 07/28/2019 FEDE AMARO MD, Ot Z95.810 PRESENCE OF AUTOMATIC (IMPLANTABLE) CARD 07/28/2019 BLANCO BERMAN Ot 401.9 HYPERTENSION NOS 07/28/2019 BLANCO BERMAN Ot 425.4 PRIM CARDIOMYOPATHY NEC 07/28/2019 BLANCO BERMAN Ot 427.5 CARDIAC ARREST 07/28/2019 BLANCO BERMAN Ot 428.0 CONGESTIVE HEART FAILURE NOS 07/28/2019 FELECIA FORTUNE MD Ot 397. 0 TRICUSPID VALVE DISEASE 07/28/2019 FELECIA FORTUNE MD Ot 401. 9 HYPERTENSION NOS 07/28/2019 FELECIA FORTUNE MD Ot 425. 4 PRIM CARDIOMYOPATHY NEC 07/28/2019 FELECIA FORTUNE MD Ot 428. 0 CONGESTIVE HEART FAILURE NOS 07/28/2019 BLANCO BERMAN Ot G93.1 ANOXIC BRAIN DAMAGE, NOT ELSEWHERE CLASS 07/28/2019 BLANCO BERMAN Ot I10 ESSENTIAL (PRIMARY) HYPERTENSION 07/28/2019 BLANCO BERMAN Ot I50.1 LEFT VENTRICULAR FAILURE 07/28/2019 BLANCO BERMAN Ot R09.2 RESPIRATORY ARREST 07/28/2019 BLANCO BERMAN Ot G93.1 ANOXIC BRAIN DAMAGE, NOT ELSEWHERE CLASS 07/28/2019 BLANCO BERMAN Ot I11.0 HYPERTENSIVE HEART DISEASE WITH HEART FA 07/28/2019 BLANCO BERMAN Ot I50.1 LEFT VENTRICULAR FAILURE, UNSPECIFIED 07/28/2019 BLANCO BERMAN Ot I51.3 INTRACARDIAC THROMBOSIS, NOT ELSEWHERE C 07/28/2019 FELECIA FORTUNE MD Ot I08. 3 COMB RHEUMATIC DISORD OF MITRAL, AORTIC 07/28/2019 FELECIA FORTUNE MD Ot I10 ESSENTIAL (PRIMARY) HYPERTENSION 07/28/2019 FELECIA FORTUNE MD Ot I25. 2 OLD MYOCARDIAL INFARCTION 07/28/2019 FELECIA FORTUNE MD Ot I42. 9 CARDIOMYOPATHY, UNSPECIFIED 07/28/2019 FELECIA FORTUNE MD Ot R00. 1 BRADYCARDIA, UNSPECIFIED 07/28/2019 FELECIA FORTUNE MD Ot Z79. 01 DROP MACHINE OPERATOR (CURRENT) USE OF ANTICOAGULANT 07/28/2019 KING BLAYNE Emily RUVALCABA Ot M25.462 EFFUSION, LEFT KNEE 07/29/2019 ORESTES VELASCO MD, Ot F31. 9 BIPOLAR DISORDER, UNSPECIFIED 07/29/2019 ORESTES VELASCO MD, Ot F41. 9 ANXIETY DISORDER, UNSPECIFIED 07/29/2019 ORESTES VELASCO MD, Ot I10 ESSENTIAL (PRIMARY) HYPERTENSION 07/29/2019 ORESTES VELASCO MD, Ot I42. 9 CARDIOMYOPATHY, UNSPECIFIED 07/29/2019 ORESTES VELASCO MD, Ot J42 UNSPECIFIED CHRONIC BRONCHITIS 07/29/2019 ORESTES VELASCO MD, Ot K21. 9 GASTRO-ESOPHAGEAL REFLUX DISEASE WITHOUT 07/29/2019 ORESTES VELASCO MD Ot S90.861A INSECT BITE (NONVENOMOUS), RIGHT FOOT, I 07/29/2019 ORESTES VELASCO MD Ot W57.XXXA BIT/STUNG BY NONVENOM INSECT OTH NONVE 07/29/2019 ORESTES VELASCO MD Ot Z87. 01 PERSONAL HISTORY OF PNEUMONIA (RECURRENT 07/29/2019 ORESTES VELASCO MD, Ot Z88. 8 ALLERGY STATUS TO [facility] DRUG/MEDS/BIOL SUB 07/29/2019 ORESTES VELASCO MD, Ot Z93. 0 TRACHEOSTOMY STATUS 07/29/2019 ORESTES VELASCO MD, Ot Z95.810 PRESENCE OF AUTOMATIC (IMPLANTABLE) CARD 08/01/2019 FEDE AMARO MD, Ot F31.9 BIPOLAR DISORDER, UNSPECIFIED 08/01/2019 FEDE AMARO MD, Ot F41.9 ANXIETY DISORDER, UNSPECIFIED 08/01/2019 FEDE AMARO MD, Ot I10 ESSENTIAL (PRIMARY) HYPERTENSION 08/01/2019 FEDE AMARO MD Ot I42.9 CARDIOMYOPATHY, UNSPECIFIED 08/01/2019 FEDE AMARO MD Ot J42 UNSPECIFIED CHRONIC BRONCHITIS 08/01/2019 FEDE AMARO MD Ot K21.9 GASTRO-ESOPHAGEAL REFLUX DISEASE WITHOUT 08/01/2019 FEDE AMARO MD Ot R51 HEADACHE 08/01/2019 FEDE AMARO MD Ot Z86.74 PERSONAL HISTORY OF SUDDEN CARDIAC ARRES 08/01/2019 FEDE AMARO MD Ot Z88.5 ALLERGY STATUS TO NARCOTIC AGENT STATUS 08/01/2019 FEDE AMARO MD Ot Z88.8 ALLERGY STATUS TO OTH DRUG/MEDS/BIOL SUB 08/01/2019 FEDE AMARO MD Ot Z93.0 TRACHEOSTOMY STATUS 08/01/2019 FEDE AMARO MD Ot Z95.810 PRESENCE OF AUTOMATIC (IMPLANTABLE) CARD 08/15/2019 ANTONIO CALLEJAS MD Ot F31. 9 BIPOLAR DISORDER, UNSPECIFIED 08/15/2019 ANTONIO CALLEJAS MD Ot F41. 9 ANXIETY DISORDER, UNSPECIFIED 08/15/2019 ANTONIO CALLEJAS MD Ot I10 ESSENTIAL (PRIMARY) HYPERTENSION 08/15/2019 ANTONIO CALLEJAS MD Ot I42. 9 CARDIOMYOPATHY, UNSPECIFIED 08/15/2019 ANTONIO CALLEJAS MD Ot J42 UNSPECIFIED CHRONIC BRONCHITIS 08/15/2019 ANTONIO CALLEJAS MD Ot K21. 9 GASTRO-ESOPHAGEAL REFLUX DISEASE WITHOUT 08/15/2019 ANTONIO CALLEJAS MD Ot M17. 12 UNILATERAL PRIMARY OSTEOARTHRITIS, LEFT 08/15/2019 ANTONIO CALLEJAS MD Ot M25.562 PAIN IN LEFT KNEE 08/15/2019 ANTONIO CALLEJAS MD Ot Z88. 5 ALLERGY STATUS TO NARCOTIC AGENT STATUS 08/15/2019 ANTONIO CALLEJAS MD Ot Z88. 8 ALLERGY STATUS TO OTH DRUG/MEDS/BIOL SUB 08/15/2019 ANTONIO CALLEJAS MD Ot Z93. 0 TRACHEOSTOMY STATUS 08/15/2019 ANTONIO CALLEJAS MD Ot Z95.810 PRESENCE OF AUTOMATIC (IMPLANTABLE) CARD 08/17/2019 ANTONIO CALLEJAS MD Ot F31. 9 BIPOLAR DISORDER, UNSPECIFIED 08/17/2019 ANTONIO CALLEJAS MD Ot F41. 9 ANXIETY DISORDER, UNSPECIFIED 08/17/2019 ANTONIO CALLEJAS MD Ot I10 ESSENTIAL (PRIMARY) HYPERTENSION 08/17/2019 ANTONIO CALLEJAS MD Ot I42. 9 CARDIOMYOPATHY, UNSPECIFIED 08/17/2019 ANTONIO CALLEJAS MD Ot J42 UNSPECIFIED CHRONIC BRONCHITIS 08/17/2019 ANTONIO CALLEJAS MD Ot K21. 9 GASTRO-ESOPHAGEAL REFLUX DISEASE WITHOUT 08/17/2019 ANTONIO CALLEJAS MD Ot M17. 12 UNILATERAL PRIMARY OSTEOARTHRITIS, LEFT 08/17/2019 ANTONIO CALLEJAS MD Ot M25.562 PAIN IN LEFT KNEE 08/17/2019 ANTONIO CALLEJAS MD Ot Z88. 5 ALLERGY STATUS TO NARCOTIC AGENT STATUS 08/17/2019 ANTONIO CALLEJAS MD Ot Z88. 8 ALLERGY STATUS TO OTH DRUG/MEDS/BIOL SUB 08/17/2019 ANTONIO CALLEJAS MD Ot Z93. 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 08/28/2019 MOIZ MARLEY DO Ot Z87.820 PERSONAL HISTORY OF TRAUMATIC BRAIN INJU 08/28/2019 MOIZ MARLEY DO Ot Z88.8 ALLERGY STATUS TO OTH DRUG/MEDS/BIOL SUB 08/28/2019 MOIZ MARLEY DO Ot Z93.0 TRACHEOSTOMY STATUS 08/28/2019 MOIZ MARLEY DO Ot Z95.810 PRESENCE OF AUTOMATIC (IMPLANTABLE) CARD 08/29/2019 BROWN NGUYEN APRN Ot M25.571 PAIN IN RIGHT ANKLE AND JOINTS OF RIGHT 08/30/2019 MARLEY DO, MOIZ Ot F31.9 BIPOLAR DISORDER, UNSPECIFIED 08/30/2019 MARLEY DO, MOIZ Ot F41.9 ANXIETY DISORDER, UNSPECIFIED 08/30/2019 MARLEY DO, MOIZ Ot I10 ESSENTIAL (PRIMARY) HYPERTENSION 08/30/2019 MARLEY DO, MOIZ Ot K21.9 GASTRO-ESOPHAGEAL REFLUX DISEASE WITHOUT 08/30/2019 MARLEY DO, MOIZ Ot N39.0 URINARY TRACT INFECTION, SITE NOT SPECIF 08/30/2019 MARLEY DO, MOIZ Ot R10.30 LOWER ABDOMINAL PAIN, UNSPECIFIED 08/30/2019 MARLEY DO, MOIZ Ot 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 08/30/2019 MARLEY DO, MOIZ Ot Z87.820 PERSONAL HISTORY OF TRAUMATIC BRAIN INJU 08/30/2019 MARLEY DO, MOIZ Ot Z88.8 ALLERGY STATUS TO OTH DRUG/MEDS/BIOL SUB 08/30/2019 MARLEY DO, MOIZ Ot Z93.0 TRACHEOSTOMY STATUS 08/30/2019 MARLEY DO, MOIZ Ot Z95.810 PRESENCE OF AUTOMATIC (IMPLANTABLE) CARD 08/31/2019 EDISON CHAMBERLAIN MD, Ot F31.9 BIPOLAR DISORDER, UNSPECIFIED 08/31/2019 EDISON CHAMBERLAIN MD, Ot F41.9 ANXIETY DISORDER, UNSPECIFIED 08/31/2019 EDISON CHAMBERLAIN MD, Ot I10 ESSENTIAL (PRIMARY) HYPERTENSION 08/31/2019 EDISON CHAMBERLAIN MD Ot K21.9 GASTRO-ESOPHAGEAL REFLUX DISEASE WITHOUT 08/31/2019 EDISON CHAMBERLAIN MD Ot R07.9 CHEST PAIN, UNSPECIFIED 08/31/2019 EDISON CHAMBERLAIN MD Ot Z79.0 1 CARE HOME (CURRENT) USE OF ANTICOAGULANT 08/31/2019 EDISON CHAMBERLAIN MD Ot Z87.0 9 PERSONAL HISTORY OF OTHER DISEASES OF TH 08/31/2019 EDISON CHAMBERLAIN MD Ot Z87.8 20 PERSONAL HISTORY OF TRAUMATIC BRAIN INJU 08/31/2019 EDISON CHAMBERLAIN MD Ot Z88.8 ALLERGY STATUS TO OTH DRUG/MEDS/BIOL SUB 08/31/2019 EDISON CHAMBERLAIN MD Ot Z93.0 TRACHEOSTOMY STATUS 08/31/2019 EDISON CHAMBERLAIN MD Ot Z95.8 10 PRESENCE OF AUTOMATIC (IMPLANTABLE) CARD 09/05/2019 EDISON CHAMBERLAIN MD Ot F31.9 BIPOLAR DISORDER, UNSPECIFIED 09/05/2019 EDISON CHAMBERLAIN MD, Ot F41.9 ANXIETY DISORDER, UNSPECIFIED 09/05/2019 EDISON CHAMBERLAIN MD Ot I10 ESSENTIAL (PRIMARY) HYPERTENSION 09/05/2019 EDISON CHAMBERLAIN MD, Ot K21.9 GASTRO-ESOPHAGEAL REFLUX DISEASE WITHOUT 09/05/2019 EDISON CHAMBERLAIN MD Ot R07.9 CHEST PAIN, UNSPECIFIED 09/05/2019 EDISON CHAMBERLAIN MD, Ot Z79.0 1 CARE HOME (CURRENT) USE OF ANTICOAGULANT 09/05/2019 EDISON CHAMBERLAIN MD, Ot Z87.0 9 PERSONAL HISTORY OF OTHER DISEASES OF TH 09/05/2019 EDISON CHAMBERLAIN MD, Ot Z87.8 20 PERSONAL HISTORY OF TRAUMATIC BRAIN INJU 09/05/2019 EDISON CHAMBERLAIN MD, Ot Z88.8 ALLERGY STATUS TO [facility] DRUG/MEDS/BIOL SUB 09/05/2019 EDISON CHAMBERLAIN MD, Ot Z93.0 TRACHEOSTOMY STATUS 09/05/2019 EDISON CHAMBERLAIN MD, Ot Z95.8 10 PRESENCE OF AUTOMATIC (IMPLANTABLE) CARD 09/12/2019 BROWN NGUYEN TEACHER 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 9 ANEMIA, UNSPECIFIED 10/23/2019 HECTOR LADD DO Ot F31. 9 BIPOLAR DISORDER, UNSPECIFIED 10/23/2019 HECTOR LADD DO Ot F41. 9 ANXIETY DISORDER, UNSPECIFIED 10/23/2019 HECTOR LADD DO Ot I10 ESSENTIAL (PRIMARY) HYPERTENSION 10/23/2019 HECTOR LADD DO Ot K21. 9 GASTRO-ESOPHAGEAL REFLUX DISEASE WITHOUT 10/23/2019 HECTOR LADD DO Ot R10. 9 UNSPECIFIED ABDOMINAL PAIN 10/23/2019 HECTOR LADD DO Ot Z79. 01 CARE HOME (CURRENT) USE OF ANTICOAGULANT 10/23/2019 HECTOR LADD DO Ot Z79. 52 DROP MACHINE OPERATOR (CURRENT) USE OF SYSTEMIC STER 10/23/2019 HECTOR LADD DO Ot Z86. 73 PRSNL HX OF TIA (TIA), AND CEREB INFRC W 10/23/2019 HECTOR LADD DO Ot Z87.891 PERSONAL HISTORY OF NICOTINE DEPENDENCE 10/23/2019 HECTOR LADD DO Ot Z88. 8 ALLERGY STATUS TO [facility] DRUG/MEDS/BIOL SUB 10/23/2019 HECTOR LADD DO Ot Z93. 0 TRACHEOSTOMY STATUS 10/23/2019 HECTOR LADD DO Ot Z95.810 PRESENCE OF AUTOMATIC (IMPLANTABLE) CARD 11/04/2019 ANTONIO CALLEJAS MD Ot F17.210 NICOTINE DEPENDENCE, CIGARETTES, UNCOMPL 11/04/2019 ANTONIO CALLEJAS MD Ot F31. 9 BIPOLAR DISORDER, UNSPECIFIED 11/04/2019 ANTONIO CALLEJAS MD Ot F41. 9 ANXIETY DISORDER, UNSPECIFIED 11/04/2019 ANTONIO CALLEJAS MD Ot I10 ESSENTIAL (PRIMARY) HYPERTENSION 11/04/2019 ANTONIO CALLEJAS MD Ot I42. 9 CARDIOMYOPATHY, UNSPECIFIED 11/04/2019 ANTONIO CALLEJAS MD Ot J42 UNSPECIFIED CHRONIC BRONCHITIS 11/04/2019 ANTONIO CALLEJAS MD Ot K21. 9 GASTRO-ESOPHAGEAL REFLUX DISEASE WITHOUT 11/04/2019 ANTONIO CALLEJAS MD Ot M54. 5 LOW BACK PAIN 11/04/2019 ANTONIO CALLEJAS MD Ot R10. 9 UNSPECIFIED ABDOMINAL PAIN 11/04/2019 ANTONIO CALLEJAS MD Ot Z88. 5 ALLERGY STATUS TO NARCOTIC AGENT STATUS 11/04/2019 ANTONIO CALLEJAS MD Ot Z88. 8 ALLERGY STATUS TO [facility] DRUG/MEDS/BIOL SUB 11/04/2019 ANTONIO CALLEJAS MD Ot Z93. 0 TRACHEOSTOMY STATUS 11/04/2019 ANTONIO CALLEJAS MD Ot Z95.810 PRESENCE OF AUTOMATIC (IMPLANTABLE) CARD 11/07/2019 ANTONIO CALLEJAS MD Ot F17.210 NICOTINE DEPENDENCE, CIGARETTES, UNCOMPL 11/07/2019 ANTONIO CALLEJAS MD Ot F31. 9 BIPOLAR DISORDER, UNSPECIFIED 11/07/2019 ANTONOI CALLEJAS MD Ot F41. 9 ANXIETY DISORDER, UNSPECIFIED 11/07/2019 ANTONIO CALLEJAS MD Ot I10 ESSENTIAL (PRIMARY) HYPERTENSION 11/07/2019 ANTONIO CALLEJAS MD Ot I42. 9 CARDIOMYOPATHY, UNSPECIFIED 11/07/2019 ANTONIO CALLEJAS MD Ot J42 UNSPECIFIED CHRONIC BRONCHITIS 11/07/2019 ANTONIO CALLEJAS MD J Ot K21. 9 GASTRO-ESOPHAGEAL REFLUX DISEASE WITHOUT 11/07/2019 ANTONIO CALLEJAS MD Ot M54. 5 LOW BACK PAIN 11/07/2019 ANTONIO CALLEJAS MD Ot R10. 9 UNSPECIFIED ABDOMINAL PAIN 11/07/2019 ANTONIO CALLEJAS MD Ot Z88. 5 ALLERGY STATUS TO NARCOTIC AGENT STATUS 11/07/2019 ANTONIO CALLEJAS MD Ot Z88. 8 ALLERGY STATUS TO [facility] DRUG/MEDS/BIOL SUB 11/07/2019 ANTONIO CALLEJAS MD Ot Z93. 0 TRACHEOSTOMY STATUS 11/07/2019 ANTONIO CALLEJAS MD Ot Z95.810 PRESENCE OF AUTOMATIC (IMPLANTABLE) CARD 11/29/2019 ORESTES VELASCO MD Ot D64. 9 ANEMIA, UNSPECIFIED 11/29/2019 ORESTES VELASCO MD Ot F31. 9 BIPOLAR DISORDER, UNSPECIFIED 11/29/2019 ORESTES VELASCO MD A Ot F41. 9 ANXIETY DISORDER, UNSPECIFIED 11/29/2019 ORESTES VELASCO MD Ot I10 ESSENTIAL (PRIMARY) HYPERTENSION 11/29/2019 ORESTES VELASCO MD Ot K21. 9 GASTRO-ESOPHAGEAL REFLUX DISEASE WITHOUT 11/29/2019 ORESTES VELASCO MD A Ot R10. 31 RIGHT LOWER QUADRANT PAIN 11/29/2019 ORESTES VELASCO MD A Ot R19. 7 DIARRHEA, UNSPECIFIED 11/29/2019 ORESTES VELASCO MD Ot Z79. 01 DROP MACHINE OPERATOR (CURRENT) USE OF ANTICOAGULANT 11/29/2019 ORESTES VELASCO MD A Ot Z87.820 PERSONAL HISTORY OF TRAUMATIC BRAIN INJU 11/29/2019 ORESTES VELASCO MD Ot Z88. 8 ALLERGY STATUS TO [facility] DRUG/MEDS/BIOL SUB 11/29/2019 ORESTES VELASCO MD A Ot Z93. 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 9 HYPERTENSION NOS 11/29/2019 FELECIA FORTUNE MD Ot 425. 4 PRIM CARDIOMYOPATHY NEC 11/29/2019 FELECIA FORTUNE MD Ot 428. 0 CONGESTIVE HEART FAILURE NOS 11/29/2019 [facility], BLANCO Mohan Ot G93.1 ANOXIC BRAIN DAMAGE, NOT ELSEWHERE CLASS 11/29/2019 [facility], BLANCO K Ot I10 ESSENTIAL (PRIMARY) HYPERTENSION 11/29/2019 [facility], BLANCO K Ot I50.1 LEFT VENTRICULAR FAILURE 11/29/2019 [facility], BLANCO K Ot R09.2 RESPIRATORY ARREST 11/29/2019 [facility], BLANCO K Ot G93.1 ANOXIC BRAIN DAMAGE, NOT ELSEWHERE CLASS 11/29/2019 [facility], BLANCO K Ot I11.0 HYPERTENSIVE HEART DISEASE WITH HEART FA 11/29/2019 [facility], BLANCO Mohan Ot I50.1 LEFT VENTRICULAR FAILURE, UNSPECIFIED 11/29/2019 [facility], BLANCO Mohan Ot I51.3 INTRACARDIAC THROMBOSIS, NOT ELSEWHERE C 11/29/2019 FELECIA FORTUNE MD Ot I08. 3 COMB RHEUMATIC DISORD OF MITRAL, AORTIC 11/29/2019 FELECIA FORTUNE MD Ot I10 ESSENTIAL (PRIMARY) HYPERTENSION 11/29/2019 FELECIA FORTUNE MD Ot I25. 2 OLD MYOCARDIAL INFARCTION 11/29/2019 FELECIA FORTUNE MD Ot I42. 9 CARDIOMYOPATHY, UNSPECIFIED 11/29/2019 FELECIA FORTUNE MD Ot R00. 1 BRADYCARDIA, UNSPECIFIED 11/29/2019 FELECIA FORTUNE MD Ot Z79. 01 CARE HOME (CURRENT) USE OF ANTICOAGULANT 11/29/2019 BLAYNE BERRY Ot M25.462 EFFUSION, LEFT KNEE 11/29/2019 BROWN NGUYEN APRN Ot M25.571 PAIN IN RIGHT ANKLE AND JOINTS OF RIGHT 12/04/2019 ORESTES VELASCO MD Ot D64. 9 ANEMIA, UNSPECIFIED 12/04/2019 ORESTES VELASCO MD Ot F31. 9 BIPOLAR DISORDER, UNSPECIFIED 12/04/2019 ORESTES VELASCO MD Ot F41. 9 ANXIETY DISORDER, UNSPECIFIED 12/04/2019 KRISTA MAZARIEGOS, ORESTES A Ot I10 ESSENTIAL (PRIMARY) HYPERTENSION 12/04/2019 KRISTA MAZARIEGOS, ORESTES A Ot K21. 9 GASTRO-ESOPHAGEAL REFLUX DISEASE WITHOUT 12/04/2019 KRISTA MAZARIEGOS, ORESTES A Ot R10. 31 RIGHT LOWER QUADRANT PAIN 12/04/2019 KRISTA MAZARIEGOS, ORESTES A Ot R19. 7 DIARRHEA, UNSPECIFIED 12/04/2019 KRISTA MAZARIEGOS, ORESTES A Ot Z79. 01 CARE HOME (CURRENT) USE OF ANTICOAGULANT 12/04/2019 ORESTES VELASCO MD A Ot Z87.820 PERSONAL HISTORY OF TRAUMATIC BRAIN INJU 12/04/2019 ORESTES VELASCO MD A Ot Z88. 8 ALLERGY STATUS TO [facility] DRUG/MEDS/BIOL SUB 12/04/2019 ORESTES VELASCO MD Ot Z93. 0 TRACHEOSTOMY STATUS 12/04/2019 ORESTES VELASCO MD A Ot Z95.810 PRESENCE OF AUTOMATIC (IMPLANTABLE) CARD 12/27/2019 EDISON CHAMBERLAIN MD Ot I10 ESSENTIAL (PRIMARY) HYPERTENSION 12/27/2019 EDISON CHAMBERLAIN MD Ot R10.3 0 LOWER ABDOMINAL PAIN, UNSPECIFIED 12/27/2019 EDISON CHAMBERLAIN MD Ot R10.3 1 RIGHT LOWER QUADRANT PAIN 12/27/2019 EDISON CHAMBERLAIN MD Ot Z79.0 1 CARE HOME (CURRENT) USE OF ANTICOAGULANT 12/27/2019 EDISON CHAMBERLAIN MD Ot Z79.5 2 CARE HOME (CURRENT) USE OF SYSTEMIC STER 12/27/2019 EDISON CHAMBERLAIN MD Ot Z88.8 ALLERGY STATUS TO [facility] DRUG/MEDS/BIOL SUB 12/27/2019 EDISON CHAMBERLAIN MD Ot Z93.0 TRACHEOSTOMY STATUS 12/27/2019 EDISON CHAMBERLAIN MD Ot Z95.8 10 PRESENCE OF AUTOMATIC (IMPLANTABLE) CARD 02/05/2020 HECTOR LADD DO Ot I10 ESSENTIAL (PRIMARY) HYPERTENSION 02/05/2020 HECTOR LADD DO Ot R51 HEADACHE 02/05/2020 HECTOR LADD DO Ot Z79. 01 DROP MACHINE OPERATOR (CURRENT) USE OF ANTICOAGULANT 02/05/2020 HECTOR LADD DO Ot Z79. 52 DROP MACHINE OPERATOR (CURRENT) USE OF SYSTEMIC STER 02/05/2020 HECTOR LADD DO Ot Z88. 8 ALLERGY STATUS TO [facility]TH DRUG/MEDS/BIOL SUB 02/05/2020 JULEE DO, HECTOR Dutta Ot Z95.810 PRESENCE OF AUTOMATIC (IMPLANTABLE) CARD 02/15/2020 ROVENSTINE DO, ALPESH L Ot F31.9 BIPOLAR DISORDER, UNSPECIFIED 02/15/2020 ROVENSTINE DO, ALPESH L Ot F41.9 ANXIETY DISORDER, UNSPECIFIED 02/15/2020 ROVENSTINE DO, ALPESH L Ot I11.9 HYPERTENSIVE HEART DISEASE WITHOUT HEART 02/15/2020 ROVENSTINE DO, ALPESH L Ot I42.9 CARDIOMYOPATHY, UNSPECIFIED 02/15/2020 ROVENSTINE DO, ALPESH Wright Ot J42 UNSPECIFIED CHRONIC BRONCHITIS 02/15/2020 ROVENSTINE DO, ALPESH Wright Ot T82.198A [facility] COMPL OF OTHER CARDIAC ELECTRONIC D 02/15/2020 ROVENSTINE DO, ALPESH Wright Ot 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 02/15/2020 ROVENSTINE DO, ALPESH Wright Ot Z86.74 PERSONAL HISTORY OF SUDDEN CARDIAC ARRES 02/15/2020 ROVENSTINE DO, ALPESH L Ot Z88.5 ALLERGY STATUS TO NARCOTIC AGENT STATUS 02/15/2020 ROVENSTINE DO, ALPESH L Ot Z88.8 ALLERGY STATUS TO [facility]TH DRUG/MEDS/BIOL SUB 02/15/2020 ROVENSTINE DO, ALPESH L Ot Z93.0 TRACHEOSTOMY STATUS 02/20/2020 ROVENSTINE DO, ALPESH Wright Ot F31.9 BIPOLAR DISORDER, UNSPECIFIED 02/20/2020 ROVENSTINE DO, ALPESH Wright Ot F41.9 ANXIETY DISORDER, UNSPECIFIED 02/20/2020 ROVENSTINE DO, ALPESH L Ot I11.9 HYPERTENSIVE HEART DISEASE WITHOUT HEART 02/20/2020 ROVENSTINE DO, ALPESH L Ot I42.9 CARDIOMYOPATHY, UNSPECIFIED 02/20/2020 ROVENSTINE DO, ALPESH Wright Ot J42 UNSPECIFIED CHRONIC BRONCHITIS 02/20/2020 ROVENSTINE DO, ALPESH Wright Ot T82.198A [facility] COMPL OF OTHER CARDIAC ELECTRONIC D 02/20/2020 ROVENSTINE DO, ALPESH Wright Ot Z79.01 CARE HOME (CURRENT) USE OF ANTICOAGULANT 02/20/2020 ROVENSTINE DO, ALPESH Wright Ot Z86.74 PERSONAL HISTORY OF SUDDEN CARDIAC ARRES 02/20/2020 ROVENSTINE DO, ALPESH Wright Ot Z88.5 ALLERGY STATUS TO NARCOTIC AGENT STATUS 02/20/2020 ROVENSTINE DO, ALPESH Wright Ot Z88.8 ALLERGY STATUS TO OTH DRUG/MEDS/BIOL SUB 02/20/2020 ROVENSTINE DO, ALPESH Wright Ot Z93.0 TRACHEOSTOMY STATUS 02/22/2020 [facility], OLLIE Zimmerman Ot D68.59 OTHER PRIMARY THROMBOPHILIA 02/22/2020 [facility], OLLIE Zimmerman Ot E66.01 MORBID (SEVERE) OBESITY DUE TO EXCESS CA 02/22/2020 [facility] DO, OLLIE Zimmerman Ot I49.9 CARDIAC ARRHYTHMIA, UNSPECIFIED 02/22/2020 [facility] , OLLIE Zimmerman Ot K02.9 DENTAL CARIES, UNSPECIFIED 02/22/2020 [facility] DO, OLLIE Zimmerman Ot N83.01 FOLLICULAR CYST OF RIGHT OVARY 02/22/2020 [facility], OLLIE Zimmerman Ot R10.2 PELVIC AND PERINEAL PAIN 02/22/2020 [facility], OLLIE Zimmerman Ot R10.31 RIGHT LOWER QUADRANT PAIN 02/22/2020 [facility], OLLIE Zimmerman Ot Z68.41 BODY MASS INDEX (BMI) 40.0-44.9, ADULT 02/22/2020 [facility], OLLIE Zimmerman Ot 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 02/22/2020 [facility], OLLIE Zimmerman Ot Z95.0 PRESENCE OF CARDIAC PACEMAKER 02/26/2020 [facility], OLLIE Zimmerman Ot D68.59 OTHER PRIMARY THROMBOPHILIA 02/26/2020 [facility], OLLIE Zimmerman Ot E66.01 MORBID (SEVERE) OBESITY DUE TO EXCESS CA 02/26/2020 [facility] DO, OLLIE Zimmerman Ot I49.9 CARDIAC ARRHYTHMIA, UNSPECIFIED 02/26/2020 [facility] DO, OLLIE Zimmerman Ot K02.9 DENTAL CARIES, UNSPECIFIED 02/26/2020 [facility] DO, OLLIE Zimmerman Ot N83.01 FOLLICULAR CYST OF RIGHT OVARY 02/26/2020 [facility] DO, OLLIE Zimmerman Ot R10.2 PELVIC AND PERINEAL PAIN 02/26/2020 [facility] DO, OLLIE Zimmerman Ot R10.31 RIGHT LOWER QUADRANT PAIN 02/26/2020 [facility]INA TINSLEY OLLIE Erasmo Ot Z68.41 BODY MASS INDEX (BMI) 40.0-44.9, ADULT 02/26/2020 [facility] TINSLEY OLLIE Erasmo Ot Z79.01 CARE HOME (CURRENT) USE OF ANTICOAGULANT 02/26/2020 OLLIE WOOD DO Ot Z95.0 PRESENCE OF CARDIAC PACEMAKER 03/01/2020 NERISSA LAURA, BLANCO Mohan Ot 401.9 HYPERTENSION NOS 03/01/2020 LUISISHA LAURA, BLANCO K Ot 425.4 PRIM CARDIOMYOPATHY NEC 03/01/2020 NERISSA LAURA, BLANCO Mohan Ot 427.5 CARDIAC ARREST 03/01/2020 NERISSA LAURA, BLANCO Mohan Ot 428.0 CONGESTIVE HEART FAILURE NOS 03/01/2020 TONG MAZARIEGOS, FELECIA Diaz Ot 397. 0 TRICUSPID VALVE DISEASE 03/01/2020 TONG MAZARIEGOS, FELECIA Diaz Ot 401. 9 HYPERTENSION NOS 03/01/2020 TONG MAZARIEGOS, FELECIA Diaz Ot 425. 4 PRIM CARDIOMYOPATHY NEC 03/01/2020 TONG MAZARIEGOS, FELECIA Diaz Ot 428. 0 CONGESTIVE HEART FAILURE NOS 03/01/2020 LUISBLANCO ECHOLS Ot G93.1 ANOXIC BRAIN DAMAGE, NOT ELSEWHERE CLASS 03/01/2020 BLANCO BERMAN Ot I10 ESSENTIAL (PRIMARY) HYPERTENSION 03/01/2020 BLANCO BERMAN Ot I50.1 LEFT VENTRICULAR FAILURE 03/01/2020 BLANCO BERMAN Ot R09.2 RESPIRATORY ARREST 03/01/2020 BLANCO EBRMAN Ot G93.1 ANOXIC BRAIN DAMAGE, NOT ELSEWHERE CLASS 03/01/2020 BLANCO BERMAN Ot I11.0 HYPERTENSIVE HEART DISEASE WITH HEART FA 03/01/2020 BLANCO BERMAN Ot I50.1 LEFT VENTRICULAR FAILURE, UNSPECIFIED 03/01/2020 BLANCO BERMAN Ot I51.3 INTRACARDIAC THROMBOSIS, NOT ELSEWHERE C 03/01/2020 TONG MAZARIEGOS, FELECIA Diaz Ot I08. 3 COMB RHEUMATIC DISORD OF MITRAL, AORTIC 03/01/2020 TONG MAZARIEGOS, FELECIA Diaz Ot I10 ESSENTIAL (PRIMARY) HYPERTENSION 03/01/2020 FELECIA FORTUNE MD Ot I25. 2 OLD MYOCARDIAL INFARCTION 03/01/2020 FELECIA FORTUNE MD Ot I42. 9 CARDIOMYOPATHY, UNSPECIFIED 03/01/2020 FELECIA FORTUNE MD Ot R00. 1 BRADYCARDIA, UNSPECIFIED 03/01/2020 FELECIA FORTUNE MD Ot Z79. 01 CARE HOME (CURRENT) USE OF ANTICOAGULANT 03/01/2020 BLAYNE BERRY BAT CARRIER Ot M25.462 EFFUSION, LEFT KNEE 03/01/2020 BROWN NGUYEN TEACHER ADULT EDUCATION Ot M25.571 PAIN IN RIGHT ANKLE AND JOINTS OF RIGHT 04/04/2020 [facility], OLLIE H Ot D68.59 OTHER PRIMARY THROMBOPHILIA 04/04/2020 [facility], OLLIE Zimmerman Ot E66.01 MORBID (SEVERE) OBESITY DUE TO EXCESS CA 04/04/2020 [facility], OLLIE Erasmo Ot I49.9 CARDIAC ARRHYTHMIA, UNSPECIFIED 04/04/2020 [facility], OLLIE Erasmo Ot K02.9 DENTAL CARIES, UNSPECIFIED 04/04/2020 [facility] N83.01 FOLLICULAR CYST OF RIGHT OVARY 04/04/2020 [facility], OLLIE Erasmo Ot R10.2 PELVIC AND PERINEAL PAIN 04/04/2020 [facility], OLLIE Ot R10.31 RIGHT LOWER QUADRANT PAIN 04/04/2020 [facility], OLLIE Zimmerman Ot Z68.41 BODY MASS INDEX (BMI) 40.0-44.9, ADULT 04/04/2020 [facility], OLLIE Zimmerman Ot Z79.01 CARE HOME (CURRENT) USE OF ANTICOAGULANT 04/04/2020 [facility] OLLIE Zimmerman Ot Z95.0 PRESENCE OF CARDIAC PACEMAKER Procedures Code Description Performed By Per formed On 37.22 LEFT HEART CARDIAC CATH 03/28/2015 88.56 LULI LONDON ARTERIOGR-2 CATH 03/28/2015 Results Test Result Range Complete urinalysis with reflex to cultu re - 08/05/18 18:05 Urine color determination YELLOW NRG Urine clarity determination SLIGHTLY CLOUDY NRG Urine pH measurement by test strip 5 5-9 Specific gravity of urine by test strip 1.020 1.016-1.022 Urine protein assay by test strip, semi-quantitative 4+ NEGATIVE Urine glucose detection by automated test strip NE GATIVE NEGATIVE Erythrocytes detection in urine sediment by light micr oscopy 2+ NEGATIVE Urine ketones detection by automated test strip NE GATIVE NEGATIVE Urine nitrite detection by test strip NEGATIVE NEGATIVE Urine total bilirubin detection by test strip NEGA TIVE NEGATIVE Urine urobilinogen measurement by automated test strip (mass/volume) NORMAL NORMAL Urine leukocyte esterase detection by dipstick NEG ATIVE NEGATIVE Automated urine sediment erythrocyte cou nt by microscopy (number/high power field) NONE NRG Automated urine sediment leukocyte count by microscopy (number/high power field) NONE NRG Bacteria detection in urine sediment by light microsco py NEGATIVE NRG Squamous epithelial cells detection in u rine sediment by light microscopy 10-25 NRG Crystals detection in urine sediment by light microsco py NONE NRG Casts detection in urine sediment by light microscopy NONE NRG Mucus detection in urine sediment by light microscopy NEGATIVE NRG Complete urinalysis with reflex to culture NO NRG GC/CHLAMYDIA (SWAB OR URINE)-RAPID - 13:06 CHLAMYDIA TRACHOMATIS RNA, TMA NOT DETECTED NOT DETECTED NEISSERIA GONORRHOEAE RNA, TMA NOT DETECTED NOT DETECTED COMMENT NRG BMP - 09/20/18 10:01 GLUCOSE 90 mg/dL 65-99 UREA NITROGEN (BUN) 13 mg/dL 7-25 CREATININE 1.63 mg/dL 0.50-1.10 eGFR NON-AFR. TRISTANIAN 42 mL/min/1.73m2 > OR = 60 eGFR 48 mL/min/1.73m2 > OR = 60 BUN/CREATININE RATIO 8 (calc) 6-22 SODIUM 140 mmol/L 135-146 POTASSIUM 3.8 mmol/L 3.5-5.3 CHLORIDE 104 mmol/L 98-110 CARBON DIOXIDE 30 mmol/L 20-32 CALCIUM 9.1 mg/dL 8.6-10.2 Complete blood count (CBC) with automate d white blood cell (WBC) differential - 11/01/18 16:25 Blood leukocytes automated count (number/volume) 8.9 10*3/uL 4.3-11.0 Blood erythrocytes automated count (number/volume) 5.00 10*6/uL 4.35-5.85 Venous blood hemoglobin measurement (mass/volume) 14.6 g/dL 11.5-16.0 Blood hematocrit (volume fraction) 44 % 35-52 Automated erythrocyte mean corpuscular volume 89 [ foz_us] 80-99 Automated erythrocyte mean corpuscular h emoglobin (mass per erythrocyte) 29 pg 25-34 Automated erythrocyte mean corpuscular h emoglobin concentration measurement (mass/volume) 33 g/dL 32-36 Automated erythrocyte distribution width ratio 15. 4 % 10.0- 14.5 Automated blood platelet count [...] 10*3 1.0-4.0 Blood monocytes automated count (number/volume) 0. 7 10*3 0.0-1.0 Automated eosinophil count 0.2 10*3/uL 0 .0-0.3 Automated blood basophil count (count/volume) 0.0 10*3/uL 0.0-0.1 PT panel in platelet poor plasma by coag ulation assay - 11/01/18 16:25 Prothrombin time (PT) in platelet poor plasma by coagu lation assay 13.8 s 12.2-14.7 INR in platelet poor plasma or blood by coagulation as say 1.1 0.8-1.4 Activated partial thromboplastin time (a PTT) in platelet poor plasma bycoagulation assay - 11/01/18 16:25 Activated partial thromboplastin time (a PTT) in platelet poor plasma bycoagulation assay 28 s 24-35 Comprehensive metabolic panel - 11/01/18 16:25 Serum or plasma sodium measurement (moles/volume) 140 mmol/L 135-145 Serum or plasma potassium measurement (moles/volume) 4.0 mmol/L 3.6-5.0 Serum or plasma chloride measurement (moles/volume) 105 mmol/L 98-107 Carbon dioxide 26 mmol/L 21-32 Serum or plasma anion gap determination (moles/volume) 9 mmol/L 5-14 Serum or plasma urea nitrogen measurement (mass/volume ) 22 mg/dL 7-18 Serum or plasma creatinine measurement (mass/volume) 1.64 mg/dL 0.60-1.30 Serum or plasma urea nitrogen/creatinine mass ratio 13 NRG Serum or plasma creatinine measurement w ith calculation of estimated glomerular filtration rate 45 NRG Serum or plasma glucose measurement (mass/volume) 62 mg/dL 70-105 Serum or plasma calcium measurement (mass/volume) 9.5 mg/dL 8.5-10.1 Serum or plasma total bilirubin measurement (mass/volu me) 0.2 mg/dL 0.1-1.0 Serum or plasma alkaline phosphatase eugene surement (enzymatic activity/volume) 73 U/L 40-136 Serum or plasma aspartate aminotransfera se measurement (enzymatic activity/volume) 19 U/L 5-34 Serum or plasma alanine aminotransferase measurement (enzymatic activity/volume) 26 U/L 0-55 Serum or plasma protein measurement (mass/volume) 7.3 g/dL 6.4-8.2 Serum or plasma albumin measurement (mass/volume) 4.0 g/dL 3.2-4.5 CALCIUM CORRECTED 9.5 mg/dL 8.5-10.1 Magnesium - 11/01/18 16:25 Magnesium 2.2 mg/dL 1.8-2.4 Serum or plasma troponin i.cardiac measu rement (mass/volume) - 11/01/18 16:25 Serum or plasma troponin i.cardiac measurement (mass/v olume) < ng/mL <0.30 Myoglobin, serum - 11/01/18 16:25 Myoglobin, serum 110.5 ng/mL 10.0-92.0 Fibrin D-dimer FEU measurement in platel et poor plasma (mass/volume) - 11/01/18 16:25 Fibrin D-dimer FEU measurement in platelet poor plasma (mass/volume) 0.50 ug/mL 0.00-0.49 Urine drug screening test - 11/01/18 18: 22 Urine phencyclidine detection by screening method NEGATIVE NEGATIVE Urine benzodiazepines detection by screening method NEGATIVE NEGATIVE Urine cocaine detection NEGATIVE NEGATI VE Urine amphetamines detection by screening method N EGATIVE NEGATIVE Urine methamphetamine detection by screening method NEGATIVE NEGATIVE Urine cannabinoids detection by screening method N EGATIVE NEGATIVE Urine opiates detection by screening method NEGATI VE NEGATIVE Urine barbiturates detection NEGATIVE N EGATIVE Screening urine tricyclic antidepressants detection POSITIVE NEGATIVE Urine methadone detection by screening method NEGA TIVE NEGATIVE Urine oxycodone detection NEGATIVE NEGA TIVE Urine propoxyphene detection NEGATIVE N EGATIVE Complete blood count (CBC) with automate d white blood cell (WBC) differential - 01/06/19 01:20 Blood leukocytes automated count (number/volume) 10.0 10*3/uL 4.3-11.0 Blood erythrocytes automated count (number/volume) 5.07 10*6/uL 4.35-5.85 Venous blood hemoglobin measurement (mass/volume) 14.6 g/dL 11.5-16.0 Blood hematocrit (volume fraction) 44 % 35-52 Automated erythrocyte mean corpuscular volume 86 [ foz_us] 80-99 Automated erythrocyte mean corpuscular h emoglobin (mass per erythrocyte) 29 pg 25-34 Automated erythrocyte mean corpuscular h emoglobin concentration measurement (mass/volume) 33 g/dL 32-36 Automated erythrocyte distribution width ratio 15. 5 % 10.0- 14.5 Automated blood platelet count [...] 10*3 1.0-4.0 Blood monocytes automated count (number/volume) 0. 9 10*3 0.0-1.0 Automated eosinophil count 0.2 10*3/uL 0 .0-0.3 Automated blood basophil count (count/volume) 0.1 10*3/uL 0.0-0.1 PT panel in platelet poor plasma by coag ulation assay - 01/06/19 01:20 Prothrombin time (PT) in platelet poor plasma by coagu lation assay 12.7 s 12.2-14.7 INR in platelet poor plasma or blood by coagulation as say 1.0 0.8-1.4 Activated partial thromboplastin time (a PTT) in platelet poor plasma bycoagulation assay - 01/06/19 01:20 Activated partial thromboplastin time (a PTT) in platelet poor plasma bycoagulation assay 30 s 24-35 Comprehensive metabolic panel - 01/06/19 01:20 Serum or plasma sodium measurement (moles/volume) 138 mmol/L 135-145 Serum or plasma potassium measurement (moles/volume) 3.7 mmol/L 3.6-5.0 Serum or plasma chloride measurement (moles/volume) 103 mmol/L 98-107 Carbon dioxide 21 mmol/L 21-32 Serum or plasma anion gap determination (moles/volume) 14 mmol/L 5-14 Serum or plasma urea nitrogen measurement (mass/volume ) 23 mg/dL 7-18 Serum or plasma creatinine measurement (mass/volume) 1.51 mg/dL 0.60-1.30 Serum or plasma urea nitrogen/creatinine mass ratio 15 NRG Serum or plasma creatinine measurement w ith calculation of estimated glomerular filtration rate 49 NRG Serum or plasma glucose measurement (mass/volume) 144 mg/dL 70-105 Serum or plasma calcium measurement (mass/volume) 8.8 mg/dL 8.5-10.1 Serum or plasma total bilirubin measurement (mass/volu me) 0.1 mg/dL 0.1-1.0 Serum or plasma alkaline phosphatase eugene surement (enzymatic activity/volume) 89 U/L 40-136 Serum or plasma aspartate aminotransfera se measurement (enzymatic activity/volume) 18 U/L 5-34 Serum or plasma alanine aminotransferase measurement (enzymatic activity/volume) 18 U/L 0-55 Serum or plasma protein measurement (mass/volume) 6.9 g/dL 6.4-8.2 Serum or plasma albumin measurement (mass/volume) 3.6 g/dL 3.2-4.5 CALCIUM CORRECTED 9.1 mg/dL 8.5-10.1 Magnesium - 01/06/19 01:20 Magnesium 2.0 mg/dL 1.8-2.4 Serum or plasma acetaminophen measuremen t (mass/volume) - 01/06/19 01:20 Serum or plasma acetaminophen measurement (mass/volume ) 11 ug/mL 10-30 Serum or plasma troponin i.cardiac measu rement (mass/volume) - 01/06/19 01:20 Serum or plasma troponin i.cardiac measurement (mass/v olume) < ng/mL <0.028 Myoglobin, serum - 01/06/19 01:20 Myoglobin, serum 103.4 ng/mL 10.0-92.0 Complete urinalysis with reflex to cultu re - 04/12/19 21:20 Urine color determination YELLOW NRG Urine clarity determination CLEAR NR G Urine pH measurement by test strip 7.0 5-9 Specific gravity of urine by test strip 1.020 1.016-1.022 Urine protein assay by test strip, semi-quantitative 2+ NEGATIVE Urine glucose detection by automated test strip NE GATIVE NEGATIVE Erythrocytes detection in urine sediment by light micr oscopy 1+ NEGATIVE Urine ketones detection by automated test strip NE GATIVE NEGATIVE Urine nitrite detection by test strip NEGATIVE NEGATIVE Urine total bilirubin detection by test strip NEGA TIVE NEGATIVE Urine urobilinogen measurement by automated test strip (mass/volume) 0.2 mg/dL NORMAL Urine leukocyte esterase detection by dipstick TRA CE NEGATIVE Automated urine sediment erythrocyte cou nt by microscopy (number/high power field) [HPF] NRG Automated urine sediment leukocyte count by microscopy (number/high power field) [HPF] NRG Bacteria detection in urine sediment by light microsco py NONE NRG Squamous epithelial cells detection in u rine sediment by light microscopy 25-50 NRG Crystals detection in urine sediment by light microsco py NONE NRG Casts detection in urine sediment by light microscopy NONE NRG Mucus detection in urine sediment by light microscopy NEGATIVE NRG Complete urinalysis with reflex to culture NO NRG Urine beta human chorionic gonadotropin (hCG) measurement - 04/12/19 21:20 Urine beta human chorionic gonadotropin (hCG) measurem ent NEGATIVE NEGATIVE Complete blood count (CBC) with automate d white blood cell (WBC) differential - 04/12/19 21:20 Blood leukocytes automated count (number/volume) 8.0 10*3/uL 4.3-11.0 Blood erythrocytes automated count (number/volume) 4.72 10*6/uL 4.35-5.85 Venous blood hemoglobin measurement (mass/volume) 13.5 g/dL 11.5-16.0 Blood hematocrit (volume fraction) 42 % 35-52 Automated erythrocyte mean corpuscular volume 88 [ foz_us] 80-99 Automated erythrocyte mean corpuscular h emoglobin (mass per erythrocyte) 29 pg 25-34 Automated erythrocyte mean corpuscular h emoglobin concentration measurement (mass/volume) 33 g/dL 32-36 Automated erythrocyte distribution width ratio 14. 9 % 10.0- 14.5 Automated blood platelet count [...] 10*3 1.0-4.0 Blood monocytes automated count (number/volume) 0. 5 10*3 0.0-1.0 Automated eosinophil count 0.1 10*3/uL 0 .0-0.3 Automated blood basophil count (count/volume) 0.1 10*3/uL 0.0-0.1 Serum or plasma choriogonadotropin (preg angelo test) detection - 04/12/19 21:20 Serum or plasma choriogonadotropin ( test) de tection NEGATIVE NEGATIVE Comprehensive metabolic panel - 04/12/19 21:20 Serum or plasma sodium measurement (moles/volume) 139 mmol/L 135-145 Serum or plasma potassium measurement (moles/volume) 3.9 mmol/L 3.6-5.0 Serum or plasma chloride measurement (moles/volume) 100 mmol/L 98-107 Carbon dioxide 22 mmol/L 21-32 Serum or plasma anion gap determination (moles/volume) 17 mmol/L 5-14 Serum or plasma urea nitrogen measurement (mass/volume ) 14 mg/dL 7-18 Serum or plasma creatinine measurement (mass/volume) 1.63 mg/dL 0.60-1.30 Serum or plasma urea nitrogen/creatinine mass ratio 9 NRG Serum or plasma creatinine measurement w ith calculation of estimated glomerular filtration rate 45 NRG Serum or plasma glucose measurement (mass/volume) 129 mg/dL 70-105 Serum or plasma calcium measurement (mass/volume) 9.0 mg/dL 8.5-10.1 Serum or plasma total bilirubin measurement (mass/volu me) 0.2 mg/dL 0.1-1.0 Serum or plasma alkaline phosphatase eugene surement (enzymatic activity/volume) 84 U/L 40-136 Serum or plasma aspartate aminotransfera se measurement (enzymatic activity/volume) 28 U/L 5-34 Serum or plasma alanine aminotransferase measurement (enzymatic activity/volume) 27 U/L 0-55 Serum or plasma protein measurement (mass/volume) 6.6 g/dL 6.4-8.2 Serum or plasma albumin measurement (mass/volume) 3.8 g/dL 3.2-4.5 CALCIUM CORRECTED 9.2 mg/dL 8.5-10.1 Lipase - 04/12/19 21:20 Lipase 24 U/L 8-78 Complete blood count (CBC) with automate d white blood cell (WBC) differential - 04/19/19 16:20 Blood leukocytes automated count (number/volume) 8.2 10*3/uL 4.3-11.0 Blood erythrocytes automated count (number/volume) 4.85 10*6/uL 4.35-5.85 Venous blood hemoglobin measurement (mass/volume) 13.6 g/dL 11.5-16.0 Blood hematocrit (volume fraction) 41 % 35-52 Automated erythrocyte mean corpuscular volume 85 [ foz_us] 80-99 Automated erythrocyte mean corpuscular h emoglobin (mass per erythrocyte) 28 pg 25-34 Automated erythrocyte mean corpuscular h emoglobin concentration measurement (mass/volume) 33 g/dL 32-36 Automated erythrocyte distribution width ratio 15. 2 % 10.0- 14.5 Automated blood platelet count [...] 10*3 1.0-4.0 Blood monocytes automated count (number/volume) 0. 6 10*3 0.0-1.0 Automated eosinophil count 0.1 10*3/uL 0 .0-0.3 Automated blood basophil count (count/volume) 0.0 10*3/uL 0.0-0.1 Comprehensive metabolic panel - 04/19/19 16:20 Serum or plasma sodium measurement (moles/volume) 140 mmol/L 135-145 Serum or plasma potassium measurement (moles/volume) 4.2 mmol/L 3.6-5.0 Serum or plasma chloride measurement (moles/volume) 108 mmol/L 98-107 Carbon dioxide 20 mmol/L 21-32 Serum or plasma anion gap determination (moles/volume) 12 mmol/L 5-14 Serum or plasma urea nitrogen measurement (mass/volume ) 20 mg/dL 7-18 Serum or plasma creatinine measurement (mass/volume) 1.80 mg/dL 0.60-1.30 Serum or plasma urea nitrogen/creatinine mass ratio 11 NRG Serum or plasma creatinine measurement w ith calculation of estimated glomerular filtration rate 40 NRG Serum or plasma glucose measurement (mass/volume) 127 mg/dL 70-105 Serum or plasma calcium measurement (mass/volume) 9.6 mg/dL 8.5-10.1 Serum or plasma total bilirubin measurement (mass/volu me) 0.2 mg/dL 0.1-1.0 Serum or plasma alkaline phosphatase eugene surement (enzymatic activity/volume) 76 U/L 40-136 Serum or plasma aspartate aminotransfera se measurement (enzymatic activity/volume) 14 U/L 5-34 Serum or plasma alanine aminotransferase measurement (enzymatic activity/volume) 14 U/L 0-55 Serum or plasma protein measurement (mass/volume) 6.6 g/dL 6.4-8.2 Serum or plasma albumin measurement (mass/volume) 3.6 g/dL 3.2-4.5 CALCIUM CORRECTED 9.9 mg/dL 8.5-10.1 Magnesium - 04/19/19 16:20 Magnesium 1.8 mg/dL 1.8-2.4 Serum or plasma choriogonadotropin (preg angelo test) detection - 04/19/19 16:20 Serum or plasma choriogonadotropin ( test) de tection NEGATIVE NEGATIVE Serum or plasma troponin i.cardiac measu rement (mass/volume) - 04/19/19 16:20 Serum or plasma troponin i.cardiac measurement (mass/v olume) < ng/mL <0.028 PT panel in platelet poor plasma by coag ulation assay - 04/19/19 16:20 Prothrombin time (PT) in platelet poor plasma by coagu lation assay 12.6 s 12.2-14.7 INR in platelet poor plasma or blood by coagulation as say 0.9 0.8-1.4 Serum or plasma lithium measurement (mol es/volume) - 04/19/19 16:20 BNP level 76.2 pg/mL <100.0 Erythrocyte sedimentation rate by tex gren method - 04/19/19 16:20 Erythrocyte sedimentation rate by westergren method 29 mm 0- 20 THYROID STIMULATING HORMONE - 04/19/19 1 6:20 THYROID STIMULATING HORMONE 3.57 u[iU]/mL 0.35-4.94 Serum or plasma thyroxine (T4) free fernando urement (mass/volume) - 04/19/19 16:20 Serum or plasma thyroxine (T4) free measurement (mass/ volume) 1.00 ng/dL 0.70-1.48 Complete urinalysis with reflex to cultu re - 04/19/19 16:30 Urine color determination YELLOW NRG Urine clarity determination CLEAR NR G Urine pH measurement by test strip 5 5-9 Specific gravity of urine by test strip 1.025 1.016-1.022 Urine protein assay by test strip, semi-quantitative 4+ NEGATIVE Urine glucose detection by automated test strip NE GATIVE NEGATIVE Erythrocytes detection in urine sediment by light micr oscopy 1+ NEGATIVE Urine ketones detection by automated test strip NE GATIVE NEGATIVE Urine nitrite detection by test strip NEGATIVE NEGATIVE Urine total bilirubin detection by test strip NEGA TIVE NEGATIVE Urine urobilinogen measurement by automated test strip (mass/volume) NORMAL NORMAL Urine leukocyte esterase detection by dipstick 1+ NEGATIVE Automated urine sediment erythrocyte cou nt by microscopy (number/high power field) NONE NRG Automated urine sediment leukocyte count by microscopy (number/high power field) [HPF] NRG Bacteria detection in urine sediment by light microsco py MODERATE NRG Squamous epithelial cells detection in u rine sediment by light microscopy 10-25 NRG Crystals detection in urine sediment by light microsco py NONE NRG Casts detection in urine sediment by light microscopy NONE NRG Mucus detection in urine sediment by light microscopy NEGATIVE NRG Complete urinalysis with reflex to culture NO NRG Urine drug screening test - 04/19/19 16: 30 Urine phencyclidine detection by screening method NEGATIVE NEGATIVE Urine benzodiazepines detection by screening method NEGATIVE NEGATIVE Urine cocaine detection NEGATIVE NEGATI VE Urine amphetamines detection by screening method N EGATIVE NEGATIVE Urine methamphetamine detection by screening method NEGATIVE NEGATIVE Urine cannabinoids detection by screening method N EGATIVE NEGATIVE Urine opiates detection by screening method NEGATI VE NEGATIVE Urine barbiturates detection NEGATIVE N EGATIVE Screening urine tricyclic antidepressants detection POSITIVE NEGATIVE Urine methadone detection by screening method NEGA TIVE NEGATIVE Urine oxycodone detection NEGATIVE NEGA TIVE Urine propoxyphene detection NEGATIVE N EGATIVE CMP - 04/20/19 10:52 GLUCOSE 83 mg/dL 65-99 UREA NITROGEN (BUN) 22 mg/dL 7-25 CREATININE 1.82 mg/dL 0.50-1.10 eGFR NON-AFR. TRISTANIAN 37 mL/min/1.73m2 > OR = 60 eGFR 42 mL/min/1.73m2 > OR = 60 BUN/CREATININE RATIO 12 (calc) 6-22 SODIUM 140 mmol/L 135-146 POTASSIUM 4.6 mmol/L 3.5-5.3 CHLORIDE 105 mmol/L 98-110 CARBON DIOXIDE 26 mmol/L 20-32 CALCIUM 9.4 mg/dL 8.6-10.2 PROTEIN, TOTAL 6.0 g/dL 6.1-8.1 ALBUMIN 3.6 g/dL 3.6-5.1 GLOBULIN 2.4 g/dL (calc) 1.9-3.7 ALBUMIN/GLOBULIN RATIO 1.5 (calc) 1.0-2. 5 BILIRUBIN, TOTAL 0.2 mg/dL 0.2-1.2 ALKALINE PHOSPHATASE 71 U/L 33-115 AST 11 U/L 10-30 ALT 14 U/L 6-29 Complete blood count (CBC) with automate d white blood cell (WBC) differential - 05/05/19 18:30 Blood leukocytes automated count (number/volume) 7.8 10*3/uL 4.3-11.0 Blood erythrocytes automated count (number/volume) 4.78 10*6/uL 4.35-5.85 Venous blood hemoglobin measurement (mass/volume) 13.4 g/dL 11.5-16.0 Blood hematocrit (volume fraction) 41 % 35-52 Automated erythrocyte mean corpuscular volume 86 [ foz_us] 80-99 Automated erythrocyte mean corpuscular h emoglobin (mass per erythrocyte) 28 pg 25-34 Automated erythrocyte mean corpuscular h emoglobin concentration measurement (mass/volume) 32 g/dL 32-36 Automated erythrocyte distribution width ratio 15. 7 % 10.0- 14.5 Automated blood platelet count [...] 10*3 1.0-4.0 Blood monocytes automated count (number/volume) 0. 5 10*3 0.0-1.0 Automated eosinophil count 0.0 10*3/uL 0 .0-0.3 Automated blood basophil count (count/volume) 0.0 10*3/uL 0.0-0.1 PT panel in platelet poor plasma by coag ulation assay - 05/05/19 18:30 Prothrombin time (PT) in platelet poor plasma by coagu lation assay 13.0 s 12.2-14.7 INR in platelet poor plasma or blood by coagulation as say 0.9 0.8-1.4 Activated partial thromboplastin time (a PTT) in platelet poor plasma bycoagulation assay - 05/05/19 18:30 Activated partial thromboplastin time (a PTT) in platelet poor plasma bycoagulation assay 30 s 24-35 Comprehensive metabolic panel - 05/05/19 18:30 Serum or plasma sodium measurement (moles/volume) 142 mmol/L 135-145 Serum or plasma potassium measurement (moles/volume) 4.5 mmol/L 3.6-5.0 Serum or plasma chloride measurement (moles/volume) 107 mmol/L 98-107 Carbon dioxide 24 mmol/L 21-32 Serum or plasma anion gap determination (moles/volume) 11 mmol/L 5-14 Serum or plasma urea nitrogen measurement (mass/volume ) 17 mg/dL 7-18 Serum or plasma creatinine measurement (mass/volume) 1.75 mg/dL 0.60-1.30 Serum or plasma urea nitrogen/creatinine mass ratio 10 NRG Serum or plasma creatinine measurement w ith calculation of estimated glomerular filtration rate 41 NRG Serum or plasma glucose measurement (mass/volume) 103 mg/dL 70-105 Serum or plasma calcium measurement (mass/volume) 9.3 mg/dL 8.5-10.1 Serum or plasma total bilirubin measurement (mass/volu me) 0.3 mg/dL 0.1-1.0 Serum or plasma alkaline phosphatase eugene surement (enzymatic activity/volume) 73 U/L 40-136 Serum or plasma aspartate aminotransfera se measurement (enzymatic activity/volume) 21 U/L 5-34 Serum or plasma alanine aminotransferase measurement (enzymatic activity/volume) 18 U/L 0-55 Serum or plasma protein measurement (mass/volume) 6.7 g/dL 6.4-8.2 Serum or plasma albumin measurement (mass/volume) 3.7 g/dL 3.2-4.5 CALCIUM CORRECTED 9.5 mg/dL 8.5-10.1 Magnesium - 05/05/19 18:30 Magnesium 2.1 mg/dL 1.8-2.4 Serum or plasma troponin i.cardiac measu rement (mass/volume) - 05/05/19 18:30 Serum or plasma troponin i.cardiac measurement (mass/v olume) < ng/mL <0.028 Myoglobin, serum - 05/05/19 18:30 Myoglobin, serum 113.8 ng/mL 10.0-92.0 Serum or plasma amylase measurement (enz ymatic activity/volume) - 05/05/19 18:30 Serum or plasma amylase measurement (enzymatic activit y/volume) 104 U/L 25-125 Lipase - 05/05/19 18:30 Lipase 22 U/L 8-78 Serum or plasma lithium measurement (mol es/volume) - 05/05/19 18:30 BNP level 202.6 pg/mL <100.0 Complete blood count (CBC) with automate d white blood cell (WBC) differential - 05/09/19 20:40 Blood leukocytes automated count (number/volume) 8.4 10*3/uL 4.3-11.0 Blood erythrocytes automated count (number/volume) 4.82 10*6/uL 4.35-5.85 Venous blood hemoglobin measurement (mass/volume) 13.7 g/dL 11.5-16.0 Blood hematocrit (volume fraction) 42 % 35-52 Automated erythrocyte mean corpuscular volume 88 [ foz_us] 80-99 Automated erythrocyte mean corpuscular h emoglobin (mass per erythrocyte) 28 pg 25-34 Automated erythrocyte mean corpuscular h emoglobin concentration measurement (mass/volume) 32 g/dL 32-36 Automated erythrocyte distribution width ratio 15. 5 % 10.0- 14.5 Automated blood platelet count [...] 10*3 1.0-4.0 Blood monocytes automated count (number/volume) 0. 7 10*3 0.0-1.0 Automated eosinophil count 0.2 10*3/uL 0 .0-0.3 Automated blood basophil count (count/volume) 0.1 10*3/uL 0.0-0.1 Comprehensive metabolic panel - 05/09/19 20:40 Serum or plasma sodium measurement (moles/volume) 140 mmol/L 135-145 Serum or plasma potassium measurement (moles/volume) 3.9 mmol/L 3.6-5.0 Serum or plasma chloride measurement (moles/volume) 102 mmol/L 98-107 Carbon dioxide 25 mmol/L 21-32 Serum or plasma anion gap determination (moles/volume) 13 mmol/L 5-14 Serum or plasma urea nitrogen measurement (mass/volume ) 13 mg/dL 7-18 Serum or plasma creatinine measurement (mass/volume) 1.65 mg/dL 0.60-1.30 Serum or plasma urea nitrogen/creatinine mass ratio 8 NRG Serum or plasma creatinine measurement w ith calculation of estimated glomerular filtration rate 44 NRG Serum or plasma glucose measurement (mass/volume) 99 mg/dL 70-105 Serum or plasma calcium measurement (mass/volume) 9.5 mg/dL 8.5-10.1 Serum or plasma total bilirubin measurement (mass/volu me) 0.3 mg/dL 0.1-1.0 Serum or plasma alkaline phosphatase eugene surement (enzymatic activity/volume) 79 U/L 40-136 Serum or plasma aspartate aminotransfera se measurement (enzymatic activity/volume) 13 U/L 5-34 Serum [...] <75.0 Serum or plasma creatine kinase MB measu rement (enzymatic activity/volume) - 05/09/19 20:40 Serum or plasma creatine kinase MB measu rement (enzymatic activity/volume) 1.4 ng/mL <6.6 TROPONIN T - 05/09/19 22:50 TROPONIN T < 6 <=10 Urine drug screening test - 05/09/19 23: 23 Urine phencyclidine detection by screening method NEGATIVE NEGATIVE Urine benzodiazepines detection by screening method NEGATIVE NEGATIVE Urine cocaine detection NEGATIVE NEGATI VE Urine amphetamines detection by screening method N EGATIVE NEGATIVE Urine methamphetamine detection by screening method NEGATIVE NEGATIVE Urine cannabinoids detection by screening method N EGATIVE NEGATIVE Urine opiates detection by screening method POSITI VE NEGATIVE Urine barbiturates detection NEGATIVE N EGATIVE Screening urine tricyclic antidepressants detection NEGATIVE NEGATIVE Urine methadone detection by screening method NEGA TIVE NEGATIVE Urine oxycodone detection NEGATIVE NEGA TIVE Urine propoxyphene detection NEGATIVE N EGATIVE Complete blood count (CBC) with automate d white blood cell (WBC) differential - 05/22/19 19:13 Blood leukocytes automated count (number/volume) 7.6 10*3/uL 4.3-11.0 Blood erythrocytes automated count (number/volume) 4.50 10*6/uL 4.35-5.85 Venous blood hemoglobin measurement (mass/volume) 12.8 g/dL 11.5-16.0 Blood hematocrit (volume fraction) 40 % 35-52 Automated erythrocyte mean corpuscular volume 88 [ foz_us] 80-99 Automated erythrocyte mean corpuscular h emoglobin (mass per erythrocyte) 28 pg 25-34 Automated erythrocyte mean corpuscular h emoglobin concentration measurement (mass/volume) 32 g/dL 32-36 Automated erythrocyte distribution width ratio 15. 5 % 10.0- 14.5 Automated blood platelet count [...] 10*3 1.0-4.0 Blood monocytes automated count (number/volume) 0. 6 10*3 0.0-1.0 Automated eosinophil count 0.2 10*3/uL 0 .0-0.3 Automated blood basophil count (count/volume) 0.1 10*3/uL 0.0-0.1 PT panel in platelet poor plasma by coag ulation assay - 05/22/19 19:13 Prothrombin time (PT) in platelet poor plasma by coagu lation assay 13.0 s 12.2-14.7 INR in platelet poor plasma or blood by coagulation as say 1.0 0.8-1.4 Activated partial thromboplastin time (a PTT) in platelet poor plasma bycoagulation assay - 05/22/19 19:13 Activated partial thromboplastin time (a PTT) in platelet poor plasma bycoagulation assay 27 s 24-35 Comprehensive metabolic panel - 05/22/19 19:13 Serum or plasma sodium measurement (moles/volume) 140 mmol/L 135-145 Serum or plasma potassium measurement (moles/volume) 4.3 mmol/L 3.6-5.0 Serum or plasma chloride measurement (moles/volume) 104 mmol/L 98-107 Carbon dioxide 24 mmol/L 21-32 Serum or plasma anion gap determination (moles/volume) 12 mmol/L 5-14 Serum or plasma urea nitrogen measurement (mass/volume ) 25 mg/dL 7-18 Serum or plasma creatinine measurement (mass/volume) 1.94 mg/dL 0.60-1.30 Serum or plasma urea nitrogen/creatinine mass ratio 13 NRG Serum or plasma creatinine measurement w ith calculation of estimated glomerular filtration rate 37 NRG Serum or plasma glucose measurement (mass/volume) 126 mg/dL 70-105 Serum or plasma calcium measurement (mass/volume) 9.1 mg/dL 8.5-10.1 Serum or plasma total bilirubin measurement (mass/volu me) 0.2 mg/dL 0.1-1.0 Serum or plasma alkaline phosphatase eugene surement (enzymatic activity/volume) 85 U/L 40-136 Serum or plasma aspartate aminotransfera se measurement (enzymatic activity/volume) 21 U/L 5-34 Serum [...] U/L 8-78 Capillary blood glucose measurement by g lucometer (mass/volume) - 05/22/19 19:17 Capillary blood glucose measurement by glucometer (mas s/volume) 108 mg/dL 70-110 TROPONIN T - 05/22/19 21:34 TROPONIN T < 10 <=10 Complete blood count (CBC) with automate d white blood cell (WBC) differential - 06/04/19 20:16 Blood leukocytes automated count (number/volume) 8.7 10*3/uL 4.3-11.0 Blood erythrocytes automated count (number/volume) 4.71 10*6/uL 4.35-5.85 Venous blood hemoglobin measurement (mass/volume) 13.2 g/dL 11.5-16.0 Blood hematocrit (volume fraction) 40 % 35-52 Automated erythrocyte mean corpuscular volume 85 [ foz_us] 80-99 Automated erythrocyte mean corpuscular h emoglobin (mass per erythrocyte) 28 pg 25-34 Automated erythrocyte mean corpuscular h emoglobin concentration measurement (mass/volume) 33 g/dL 32-36 Automated erythrocyte distribution width ratio 16. 0 % 10.0- 14.5 Automated blood platelet count (count/volume) 275 10*3/uL 130-400 Automated blood platelet mean volume measurement 8.8 [foz_us] 7.4-10.4 Automated blood neutrophils/100 leukocytes 56 % 42-75 Automated blood lymphocytes/100 leukocytes 34 % 12-44 Blood monocytes/100 leukocytes 8 % 0-12 Automated blood eosinophils/100 leukocytes 2 % 0-10 Automated blood basophils/100 leukocytes 1 % 0-10 Blood neutrophils automated count (number/volume) 4.9 10*3 1.8-7.8 Blood lymphocytes automated count (number/volume) 2.9 10*3 1.0-4.0 Blood monocytes automated count (number/volume) 0. 7 10*3 0.0-1.0 Automated eosinophil count 0.2 10*3/uL 0 .0-0.3 Automated blood basophil count (count/volume) 0.0 10*3/uL 0.0-0.1 Serum or plasma choriogonadotropin (preg angelo test) detection - 06/04/19 20:16 Serum or plasma choriogonadotropin ( test) de tection NEGATIVE NEGATIVE Whole blood basic metabolic panel - 07/16 20:16 Serum or plasma sodium measurement (moles/volume) 138 mmol/L 135-145 Serum or plasma potassium measurement (moles/volume) 4.4 mmol/L 3.6-5.0 Serum or plasma chloride measurement (moles/volume) 103 mmol/L 98-107 Carbon dioxide 24 mmol/L 21-32 Serum or plasma anion gap determination (moles/volume) 11 mmol/L 5-14 Serum or plasma urea nitrogen measurement (mass/volume ) 17 mg/dL 7-18 Serum or plasma creatinine measurement (mass/volume) 1.84 mg/dL 0.60-1.30 Serum or plasma urea nitrogen/creatinine mass ratio 9 NRG Serum or plasma creatinine measurement w ith calculation of estimated glomerular filtration rate 39 NRG Serum or plasma glucose measurement (mass/volume) 101 mg/dL 70-105 Serum or plasma calcium measurement (mass/volume) 9.7 mg/dL 8.5-10.1 Magnesium - 06/04/19 20:16 Magnesium 1.8 mg/dL 1.8-2.4 Serum or plasma troponin i.cardiac measu rement (mass/volume) - 06/04/19 20:16 Serum or plasma troponin i.cardiac measurement (mass/v olume) < ng/mL <0.028 Serum or plasma C reactive protein measu rement (mass/volume) - 06/04/19 20:16 Serum or plasma C reactive protein measurement (mass/v olume) 1.47 mg/dL 0.00-0.50 Fibrin D-dimer FEU measurement in platel et poor plasma (mass/volume) - 06/04/19 20:49 Fibrin D-dimer FEU measurement in platelet poor plasma (mass/volume) 1.74 ug/mL 0.00-0.49 GC/CHLAMYDIA (SWAB OR URINE)-RAPID - 01/16 09:31 CHLAMYDIA TRACHOMATIS RNA, TMA NOT DETECTED NOT DETECTED NEISSERIA GONORRHOEAE RNA, TMA NOT DETECTED NOT DETECTED COMMENT NRG CULTURE, URINE - 06/29/19 09:31 CULTURE, URINE, ROUTINE SEE NOTE NRG Complete urinalysis with reflex to cultu re - 08/28/19 17:00 Urine color determination YELLOW NRG Urine clarity determination CLOUDY NR G Urine pH measurement by test strip 5.5 5-9 Specific gravity of urine by test strip >= 1.016-1.022 Urine protein assay by test strip, semi-quantitative 3+ NEGATIVE Urine glucose detection by automated test strip NE GATIVE NEGATIVE Erythrocytes detection in urine sediment by light micr oscopy 1+ NEGATIVE Urine ketones detection by automated test strip NE GATIVE NEGATIVE Urine nitrite detection by test strip NEGATIVE NEGATIVE Urine total bilirubin detection by test strip NEGA TIVE NEGATIVE Urine urobilinogen measurement by automated test strip (mass/volume) 0.2 mg/dL NORMAL Urine leukocyte esterase detection by dipstick NEG ATIVE NEGATIVE Automated urine sediment erythrocyte cou nt by microscopy (number/high power field) RARE NRG Automated urine sediment leukocyte count by microscopy (number/high power field) RARE NRG Bacteria detection in urine sediment by light microsco py MODERATE NRG Squamous epithelial cells detection in u rine sediment by light microscopy >50 NRG Crystals detection in urine sediment by light microsco py NONE NRG Casts detection in urine sediment by light microscopy NONE NRG Mucus detection in urine sediment by light microscopy NONE NRG Complete urinalysis with reflex to culture NO NRG Complete blood count (CBC) with automate d white blood cell (WBC) differential - 08/31/19 04:26 Blood leukocytes automated count (number/volume) 8.0 10*3/uL 4.3-11.0 Blood erythrocytes automated count (number/volume) 4.85 10*6/uL 4.35-5.85 Venous blood hemoglobin measurement (mass/volume) 13.8 g/dL 11.5-16.0 Blood hematocrit (volume fraction) 43 % 35-52 Automated erythrocyte mean corpuscular volume 88 [ foz_us] 80-99 Automated erythrocyte mean corpuscular h emoglobin (mass per erythrocyte) 28 pg 25-34 Automated erythrocyte mean corpuscular h emoglobin concentration measurement (mass/volume) 33 g/dL 32-36 Automated erythrocyte distribution width ratio 15. 7 % 10.0- 14.5 Automated blood platelet count (count/volume) 323 10*3/uL 130-400 Automated blood platelet mean volume measurement 8.8 [foz_us] 7.4-10.4 Automated blood neutrophils/100 leukocytes 44 % 42-75 Automated blood lymphocytes/100 leukocytes 45 % 12-44 Blood monocytes/100 leukocytes 7 % 0-12 Automated blood eosinophils/100 leukocytes 3 % 0-10 Automated blood basophils/100 leukocytes 1 % 0-10 Blood neutrophils automated count (number/volume) 3.5 10*3 1.8-7.8 Blood lymphocytes automated count (number/volume) 3.6 10*3 1.0-4.0 Blood monocytes automated count (number/volume) 0. 5 10*3 0.0-1.0 Automated eosinophil count 0.2 10*3/uL 0 .0-0.3 Automated blood basophil count (count/volume) 0.1 10*3/uL 0.0-0.1 PT panel in platelet poor plasma by coag ulation assay - 08/31/19 04:26 Prothrombin time (PT) in platelet poor plasma by coagu lation assay 12.0 s 12.2-14.7 INR in platelet poor plasma or blood by coagulation as say 0.9 0.8-1.4 Activated partial thromboplastin time (a PTT) in platelet poor plasma bycoagulation assay - 08/31/19 04:26 Activated partial thromboplastin time (a PTT) in platelet poor plasma bycoagulation assay 23 s 24-35 Comprehensive metabolic panel - 08/31/19 04:26 Serum or plasma sodium measurement (moles/volume) 140 mmol/L 135-145 Serum or plasma potassium measurement (moles/volume) 3.6 mmol/L 3.6-5.0 Serum or plasma chloride measurement (moles/volume) 104 mmol/L 98-107 Carbon dioxide 25 mmol/L 21-32 Serum or plasma anion gap determination (moles/volume) 11 mmol/L 5-14 Serum or plasma urea nitrogen measurement (mass/volume ) 13 mg/dL 7-18 Serum or plasma creatinine measurement (mass/volume) 1.74 mg/dL 0.60-1.30 Serum or plasma urea nitrogen/creatinine mass ratio 7 NRG Serum or plasma creatinine measurement w ith calculation of estimated glomerular filtration rate 41 NRG Serum or plasma glucose measurement (mass/volume) 119 mg/dL 70-105 Serum or plasma calcium measurement (mass/volume) 8.9 mg/dL 8.5-10.1 Serum or plasma total bilirubin measurement (mass/volu me) < mg/dL 0.1-1.0 Serum or plasma alkaline phosphatase eugnee surement (enzymatic activity/volume) 83 U/L 40-136 Serum or plasma aspartate aminotransfera se measurement (enzymatic activity/volume) 26 U/L 5-34 Serum or plasma alanine aminotransferase measurement (enzymatic activity/volume) 27 U/L 0-55 Serum or plasma protein measurement (mass/volume) 6.6 g/dL 6.4-8.2 Serum or plasma albumin measurement (mass/volume) 3.8 g/dL 3.2-4.5 CALCIUM CORRECTED 9.1 mg/dL 8.5-10.1 Magnesium - 08/31/19 04:26 Magnesium 1.8 mg/dL 1.6-2.4 TROPONIN I FS - 08/31/19 04:26 TROPONIN I FS < 0.30 <0.30 PROBNP FS - 08/31/19 04:26 PROBNP FS 484.6 pg/mL <75.0 Complete urinalysis with reflex to cultu re - 10/23/19 08:53 Urine color determination YELLOW NRG Urine clarity determination SLT CLOUDY NRG Urine pH measurement by test strip 7.0 5-9 Specific gravity of urine by test strip 1.020 1.016-1.022 Urine protein assay by test strip, semi-quantitative 2+ NEGATIVE Urine glucose detection by automated test strip NE GATIVE NEGATIVE Erythrocytes detection in urine sediment by light micr oscopy TRACE NEGATIVE Urine ketones detection by automated test strip NE GATIVE NEGATIVE Urine nitrite detection by test strip NEGATIVE NEGATIVE Urine total bilirubin detection by test strip NEGA TIVE NEGATIVE Urine urobilinogen measurement by automated test strip (mass/volume) 0.2 mg/dL < = 1.0 Urine leukocyte esterase detection by dipstick NEG ATIVE NEGATIVE Automated urine sediment erythrocyte cou nt by microscopy (number/high power field) RARE NRG Automated urine sediment leukocyte count by microscopy (number/high power field) NONE NRG Bacteria detection in urine sediment by light microsco py NEGATIVE NRG Squamous epithelial cells detection in u rine sediment by light microscopy 10-25 NRG Crystals detection in urine sediment by light microsco py NONE NRG Casts detection in urine sediment by light microscopy NONE NRG Mucus detection in urine sediment by light microscopy NONE NRG Complete urinalysis with reflex to culture NO NRG Comprehensive metabolic panel - 10/23/19 09:15 Serum or plasma sodium measurement (moles/volume) 136 mmol/L 135-145 Serum or plasma potassium measurement (moles/volume) 3.7 mmol/L 3.6-5.0 Serum or plasma chloride measurement (moles/volume) 103 mmol/L 98-107 Carbon dioxide 22 mmol/L 21-32 Serum or plasma anion gap determination (moles/volume) 11 mmol/L 5-14 Serum or plasma urea nitrogen measurement (mass/volume ) 16 mg/dL 7-18 Serum or plasma creatinine measurement (mass/volume) 1.71 mg/dL 0.60-1.30 Serum or plasma urea nitrogen/creatinine mass ratio 9 NRG Serum or plasma creatinine measurement w ith calculation of estimated glomerular filtration rate 42 NRG Serum or plasma glucose measurement (mass/volume) 110 mg/dL 70-105 Serum or plasma calcium measurement (mass/volume) 8.8 mg/dL 8.5-10.1 Serum or plasma total bilirubin measurement (mass/volu me) < mg/dL 0.1-1.0 Serum or plasma alkaline phosphatase eugene surement (enzymatic activity/volume) 73 U/L 40-136 Serum or plasma aspartate aminotransfera se measurement (enzymatic activity/volume) 14 U/L 5-34 Serum or plasma alanine aminotransferase measurement (enzymatic activity/volume) 10 U/L 0-55 Serum or plasma protein measurement (mass/volume) 7.0 g/dL 6.4-8.2 Serum or plasma albumin measurement (mass/volume) 3.9 g/dL 3.2-4.5 CALCIUM CORRECTED 8.9 mg/dL 8.5-10.1 Lipase - 10/23/19 09:15 Lipase 37 U/L 8-78 Complete urinalysis with reflex to cultu re - 11/04/19 16:45 Urine color determination YELLOW NRG Urine clarity determination SLIGHTLY CLOUDY NRG Urine pH measurement by test strip 6.0 5-9 Specific gravity of urine by test strip >= 1.016-1.022 Urine protein assay by test strip, semi-quantitative 2+ NEGATIVE Urine glucose detection by automated test strip NE GATIVE NEGATIVE Erythrocytes detection in urine sediment by light micr oscopy NEGATIVE NEGATIVE Urine ketones detection by automated test strip NE GATIVE NEGATIVE Urine nitrite detection by test strip NEGATIVE NEGATIVE Urine total bilirubin detection by test strip NEGA TIVE NEGATIVE Urine urobilinogen measurement by automated test strip (mass/volume) 0.2 mg/dL < = 1.0 Urine leukocyte esterase detection by dipstick NEG ATIVE NEGATIVE Automated urine sediment erythrocyte cou nt by microscopy (number/high power field) NONE NRG Automated urine sediment leukocyte count by microscopy (number/high power field) [HPF] NRG Bacteria detection in urine sediment by light microsco py LARGE NRG Squamous epithelial cells detection in u rine sediment by light microscopy TNTC NRG Crystals detection in urine sediment by light microsco py NONE NRG Casts detection in urine sediment by light microscopy NONE NRG Mucus detection in urine sediment by light microscopy MODERATE NRG Complete urinalysis with reflex to culture NO NRG Urine drug screening test - 12/08/19 16: 45 Urine phencyclidine detection by screening method NEGATIVE NEGATIVE Urine benzodiazepines detection by screening method NEGATIVE NEGATIVE Urine cocaine detection NEGATIVE NEGATI VE Urine amphetamines detection by screening method N EGATIVE NEGATIVE Urine methamphetamine detection by screening method POSITIVE NEGATIVE Urine cannabinoids detection by screening method N EGATIVE NEGATIVE Urine opiates detection by screening method NEGATI VE NEGATIVE Urine barbiturates detection NEGATIVE N EGATIVE Screening urine tricyclic antidepressants detection NEGATIVE NEGATIVE Urine methadone detection by screening method NEGA TIVE NEGATIVE Urine oxycodone detection NEGATIVE NEGA TIVE Urine propoxyphene detection NEGATIVE N EGATIVE Complete blood count (CBC) with automate d white blood cell (WBC) differential - 11/04/19 17:05 Blood leukocytes automated count (number/volume) 6.5 10*3/uL 4.3-11.0 Blood erythrocytes automated count (number/volume) 4.75 10*6/uL 4.35-5.85 Venous blood hemoglobin measurement (mass/volume) 13.6 g/dL 11.5-16.0 Blood hematocrit (volume fraction) 42 % 35-52 Automated erythrocyte mean corpuscular volume 88 [ foz_us] 80-99 Automated erythrocyte mean corpuscular h emoglobin (mass per erythrocyte) 29 pg 25-34 Automated erythrocyte mean corpuscular h emoglobin concentration measurement (mass/volume) 33 g/dL 32-36 Automated erythrocyte distribution width ratio 14. 7 % 10.0- 14.5 Automated blood platelet count (count/volume) 341 10*3/uL 130-400 Automated blood platelet mean volume measurement 8.8 [foz_us] 7.4-10.4 Automated blood neutrophils/100 leukocytes 48 % 42-75 Automated blood lymphocytes/100 leukocytes 41 % 12-44 Blood monocytes/100 leukocytes 7 % 0-12 Automated blood eosinophils/100 leukocytes 3 % 0-10 Automated blood basophils/100 leukocytes 1 % 0-10 Blood neutrophils automated count (number/volume) 3.1 10*3 1.8-7.8 Blood lymphocytes automated count (number/volume) 2.7 10*3 1.0-4.0 Blood monocytes automated count (number/volume) 0. 5 10*3 0.0-1.0 Automated eosinophil count 0.2 10*3/uL 0 .0-0.3 Automated blood basophil count (count/volume) 0.0 10*3/uL 0.0-0.1 Comprehensive metabolic panel - 11/04/19 17:05 Serum or plasma sodium measurement (moles/volume) 140 mmol/L 135-145 Serum or plasma potassium measurement (moles/volume) 3.9 mmol/L 3.6-5.0 Serum or plasma chloride measurement (moles/volume) 105 mmol/L 98-107 Carbon dioxide 25 mmol/L 21-32 Serum or plasma anion gap determination (moles/volume) 10 mmol/L 5-14 Serum or plasma urea nitrogen measurement (mass/volume ) 10 mg/dL 7-18 Serum or plasma creatinine measurement (mass/volume) 1.66 mg/dL 0.60-1.30 Serum or plasma urea nitrogen/creatinine mass ratio 6 NRG Serum or plasma creatinine measurement w ith calculation of estimated glomerular filtration rate 44 NRG Serum or plasma glucose measurement (mass/volume) 115 mg/dL 70-105 Serum or plasma calcium measurement (mass/volume) 9.1 mg/dL 8.5-10.1 Serum or plasma total bilirubin measurement (mass/volu me) 0.2 mg/dL 0.1-1.0 Serum or plasma alkaline phosphatase eugene surement (enzymatic activity/volume) 72 U/L 40-136 Serum or plasma aspartate aminotransfera se measurement (enzymatic activity/volume) 16 U/L 5-34 Serum or plasma alanine aminotransferase measurement (enzymatic activity/volume) 12 U/L 0-55 Serum or plasma protein measurement (mass/volume) 6.5 g/dL 6.4-8.2 Serum or plasma albumin measurement (mass/volume) 3.6 g/dL 3.2-4.5 CALCIUM CORRECTED 9.4 mg/dL 8.5-10.1 Urine beta human chorionic gonadotropin (hCG) measurement - 11/29/19 22:07 Urine beta human chorionic gonadotropin (hCG) measurem ent NEGATIVE NEGATIVE Complete urinalysis with reflex to cultu re - 11/29/19 22:07 Urine color determination DARK YELLOW N RG Urine clarity determination CLEAR NR G Urine pH measurement by test strip 6.0 5-9 Specific gravity of urine by test strip >= 1.016-1.022 Urine protein assay by test strip, semi-quantitative 3+ NEGATIVE Urine glucose detection by automated test strip NE GATIVE NEGATIVE Erythrocytes detection in urine sediment by light micr oscopy TRACE NEGATIVE Urine ketones detection by automated test strip NE GATIVE NEGATIVE Urine nitrite detection by test strip NEGATIVE NEGATIVE Urine total bilirubin detection by test strip NEGA TIVE NEGATIVE Urine urobilinogen measurement by automated test strip (mass/volume) 0.2 mg/dL < = 1.0 Urine leukocyte esterase detection by dipstick NEG ATIVE NEGATIVE Automated urine sediment erythrocyte cou nt by microscopy (number/high power field) [HPF] NRG Automated urine sediment leukocyte count by microscopy (number/high power field) [HPF] NRG Bacteria detection in urine sediment by light microsco py MODERATE NRG Squamous epithelial cells detection in u rine sediment by light microscopy 10-25 NRG Crystals detection in urine sediment by light microsco py NONE NRG Casts detection in urine sediment by light microscopy PRESENT NRG Mucus detection in urine sediment by light microscopy MODERATE NRG Complete urinalysis with reflex to culture NO NRG Hyaline casts detection in urine sediment by light selvin roscopy 2-5 NRG Complete blood count (CBC) with automate d white blood cell (WBC) differential - 11/29/19 22:17 Blood leukocytes automated count (number/volume) 7.2 10*3/uL 4.3-11.0 Blood erythrocytes automated count (number/volume) 4.68 10*6/uL 4.35-5.85 Venous blood hemoglobin measurement (mass/volume) 13.3 g/dL 11.5-16.0 Blood hematocrit (volume fraction) 41 % 35-52 Automated erythrocyte mean corpuscular volume 87 [ foz_us] 80-99 Automated erythrocyte mean corpuscular h emoglobin (mass per erythrocyte) 28 pg 25-34 Automated erythrocyte mean corpuscular h emoglobin concentration measurement (mass/volume) 33 g/dL 32-36 Automated erythrocyte distribution width ratio 14. 9 % 10.0- 14.5 Automated blood platelet count (count/volume) 340 10*3/uL 130-400 Automated blood platelet mean volume measurement 8.8 [foz_us] 7.4-10.4 Automated blood neutrophils/100 leukocytes 40 % 42-75 Automated blood lymphocytes/100 leukocytes 49 % 12-44 Blood monocytes/100 leukocytes 8 % 0-12 Automated blood eosinophils/100 leukocytes 2 % 0-10 Automated blood basophils/100 leukocytes 1 % 0-10 Blood neutrophils automated count (number/volume) 2.9 10*3 1.8-7.8 Blood lymphocytes automated count (number/volume) 3.5 10*3 1.0-4.0 Blood monocytes automated count (number/volume) 0. 5 10*3 0.0-1.0 Automated eosinophil count 0.1 10*3/uL 0 .0-0.3 Automated blood basophil count (count/volume) 0.1 10*3/uL 0.0-0.1 Comprehensive metabolic panel - 11/29/19 22:17 Serum or plasma sodium measurement (moles/volume) 140 mmol/L 135-145 Serum or plasma potassium measurement (moles/volume) 3.6 mmol/L 3.6-5.0 Serum or plasma chloride measurement (moles/volume) 105 mmol/L 98-107 Carbon dioxide 23 mmol/L 21-32 Serum or plasma anion gap determination (moles/volume) 12 mmol/L 5-14 Serum or plasma urea nitrogen measurement (mass/volume ) 13 mg/dL 7-18 Serum or plasma creatinine measurement (mass/volume) 1.90 mg/dL 0.60-1.30 Serum or plasma urea nitrogen/creatinine mass ratio 7 NRG Serum or plasma creatinine measurement w ith calculation of estimated glomerular filtration rate 37 NRG Serum or plasma glucose measurement (mass/volume) 114 mg/dL 70-105 Serum or plasma calcium measurement (mass/volume) 8.8 mg/dL 8.5-10.1 Serum or plasma total bilirubin measurement (mass/volu me) 0.2 mg/dL 0.1-1.0 Serum or plasma alkaline phosphatase eugene surement (enzymatic activity/volume) 75 U/L 40-136 Serum or plasma aspartate aminotransfera se measurement (enzymatic activity/volume) 16 U/L 5-34 Serum or plasma alanine aminotransferase measurement (enzymatic activity/volume) 10 U/L 0-55 Serum or plasma protein measurement (mass/volume) 6.3 g/dL 6.4-8.2 Serum or plasma albumin measurement (mass/volume) 3.6 g/dL 3.2-4.5 CALCIUM CORRECTED 9.1 mg/dL 8.5-10.1 Lipase - 11/29/19 22:17 Lipase 39 U/L 8-78 LIPID PANEL - 12/11/19 09:03 CHOLESTEROL, TOTAL 221 mg/dL <200 HDL CHOLESTEROL 44 mg/dL >50 TRIGLYCERIDES 210 mg/dL <150 LDL-CHOLESTEROL 142 mg/dL (calc) NRG CHOL/HDLC RATIO 5.0 (calc) <5.0 NON HDL CHOLESTEROL 177 mg/dL (calc) <13 0 CMP - 12/11/19 09:03 GLUCOSE 94 mg/dL 65-99 UREA NITROGEN (BUN) 18 mg/dL 7-25 CREATININE 1.58 mg/dL 0.50-1.10 eGFR NON-AFR. TRISTANIAN 43 mL/min/1.73m2 > OR = 60 eGFR 50 mL/min/1.73m2 > OR = 60 BUN/CREATININE RATIO 11 (calc) 6-22 SODIUM 138 mmol/L 135-146 POTASSIUM 4.9 mmol/L 3.5-5.3 CHLORIDE 103 mmol/L 98-110 CARBON DIOXIDE 27 mmol/L 20-32 CALCIUM 9.7 mg/dL 8.6-10.2 PROTEIN, TOTAL 6.6 g/dL 6.1-8.1 ALBUMIN 4.2 g/dL 3.6-5.1 GLOBULIN 2.4 g/dL (calc) 1.9-3.7 ALBUMIN/GLOBULIN RATIO 1.8 (calc) 1.0-2. 5 BILIRUBIN, TOTAL 0.2 mg/dL 0.2-1.2 ALKALINE PHOSPHATASE 83 U/L 33-115 AST 17 U/L 10-30 ALT 14 U/L 6-29 Complete urinalysis with reflex to cultu re - 12/27/19 18:00 Urine color determination YELLOW NRG Urine clarity determination CLEAR NR G Urine pH measurement by test strip 7.0 5-9 Specific gravity of urine by test strip 1.020 1.016-1.022 Urine protein assay by test strip, semi-quantitative 3+ NEGATIVE Urine glucose detection by automated test strip NE GATIVE NEGATIVE Erythrocytes detection in urine sediment by light micr oscopy TRACE NEGATIVE Urine ketones detection by automated test strip NE GATIVE NEGATIVE Urine nitrite detection by test strip NEGATIVE NEGATIVE Urine total bilirubin detection by test strip NEGA TIVE NEGATIVE Urine urobilinogen measurement by automated test strip (mass/volume) 0.2 mg/dL < = 1.0 Urine leukocyte esterase detection by dipstick NEG ATIVE NEGATIVE Automated urine sediment erythrocyte cou nt by microscopy (number/high power field) [HPF] NRG Automated urine sediment leukocyte count by microscopy (number/high power field) [HPF] NRG Bacteria detection in urine sediment by light microsco py MODERATE NRG Squamous epithelial cells detection in u rine sediment by light microscopy 25-50 NRG Crystals detection in urine sediment by light microsco py NONE NRG Casts detection in urine sediment by light microscopy NONE NRG Mucus detection in urine sediment by light microscopy NEGATIVE NRG Complete urinalysis with reflex to culture NO NRG Complete blood count (CBC) with automate d white blood cell (WBC) differential - 12/27/19 18:18 Blood leukocytes automated count (number/volume) 9.1 10*3/uL 4.3-11.0 Blood erythrocytes automated count (number/volume) 4.68 10*6/uL 4.35-5.85 Venous blood hemoglobin measurement (mass/volume) 13.3 g/dL 11.5-16.0 Blood hematocrit (volume fraction) 41 % 35-52 Automated erythrocyte mean corpuscular volume 87 [ foz_us] 80-99 Automated erythrocyte mean corpuscular h emoglobin (mass per erythrocyte) 28 pg 25-34 Automated erythrocyte mean corpuscular h emoglobin concentration measurement (mass/volume) 33 g/dL 32-36 Automated erythrocyte distribution width ratio 15. 1 % 10.0- 14.5 Automated blood platelet count (count/volume) 353 10*3/uL 130-400 Automated blood platelet mean volume measurement 9.1 [foz_us] 7.4-10.4 Automated blood neutrophils/100 leukocytes 54 % 42-75 Automated blood lymphocytes/100 leukocytes 38 % 12-44 Blood monocytes/100 leukocytes 6 % 0-12 Automated blood eosinophils/100 leukocytes 1 % 0-10 Automated blood basophils/100 leukocytes 1 % 0-10 Blood neutrophils automated count (number/volume) 4.9 10*3 1.8-7.8 Blood lymphocytes automated count (number/volume) 3.5 10*3 1.0-4.0 Blood monocytes automated count (number/volume) 0. 5 10*3 0.0-1.0 Automated eosinophil count 0.1 10*3/uL 0 .0-0.3 Automated blood basophil count (count/volume) 0.1 10*3/uL 0.0-0.1 Comprehensive metabolic panel - 12/27/19 18:18 Serum or plasma sodium measurement (moles/volume) 140 mmol/L 135-145 Serum or plasma potassium measurement (moles/volume) 4.0 mmol/L 3.6-5.0 Serum or plasma chloride measurement (moles/volume) 103 mmol/L 98-107 Carbon dioxide 25 mmol/L 21-32 Serum or plasma anion gap determination (moles/volume) 12 mmol/L 5-14 Serum or plasma urea nitrogen measurement (mass/volume ) 18 mg/dL 7-18 Serum or plasma creatinine measurement (mass/volume) 1.88 mg/dL 0.60-1.30 Serum or plasma urea nitrogen/creatinine mass ratio 10 NRG Serum or plasma creatinine measurement w ith calculation of estimated glomerular filtration rate 38 NRG Serum or plasma glucose measurement (mass/volume) 123 mg/dL 70-105 Serum or plasma calcium measurement (mass/volume) 8.9 mg/dL 8.5-10.1 Serum or plasma total bilirubin measurement (mass/volu me) < mg/dL 0.1-1.0 Serum or plasma alkaline phosphatase eugene surement (enzymatic activity/volume) 90 U/L 40-136 Serum or plasma aspartate aminotransfera se measurement (enzymatic activity/volume) 19 U/L 5-34 Serum or plasma alanine aminotransferase measurement (enzymatic activity/volume) 13 U/L 0-55 Serum or plasma protein measurement (mass/volume) 6.6 g/dL 6.4-8.2 Serum or plasma albumin measurement (mass/volume) 3.7 g/dL 3.2-4.5 CALCIUM CORRECTED 9.1 mg/dL 8.5-10.1 Lipase - 12/27/19 18:18 Lipase 37 U/L 8-78 Complete blood count (CBC) with automate d white blood cell (WBC) differential - 02/15/20 03:50 Blood leukocytes automated count (number/volume) 10.9 10*3/uL 4.3-11.0 Blood erythrocytes automated count (number/volume) 4.76 10*6/uL 4.35-5.85 Venous blood hemoglobin measurement (mass/volume) 13.6 g/dL 11.5-16.0 Blood hematocrit (volume fraction) 41 % 35-52 Automated erythrocyte mean corpuscular volume 96 [ foz_us] 80-99 Automated erythrocyte mean corpuscular h emoglobin (mass per erythrocyte) 29 pg 25-34 Automated erythrocyte mean corpuscular h emoglobin concentration measurement (mass/volume) 33 g/dL 32-36 Automated erythrocyte distribution width ratio 14. 9 % 10.0- 14.5 Automated blood platelet count (count/volume) 355 10*3/uL 130-400 Automated blood platelet mean volume measurement 8.8 [foz_us] 7.4-10.4 Automated blood neutrophils/100 leukocytes 48 % 42-75 Automated blood lymphocytes/100 leukocytes 41 % 12-44 Blood monocytes/100 leukocytes 8 % 0-12 Automated blood eosinophils/100 leukocytes 2 % 0-10 Automated blood basophils/100 leukocytes 1 % 0-10 Blood neutrophils automated count (number/volume) 5.3 10*3 1.8-7.8 Blood lymphocytes automated count (number/volume) 4.5 10*3 1.0-4.0 Blood monocytes automated count (number/volume) 0. 8 10*3 0.0-1.0 Automated eosinophil count 0.2 10*3/uL 0 .0-0.3 Automated blood basophil count (count/volume) 0.1 10*3/uL 0.0-0.1 Comprehensive metabolic panel - 02/15/20 03:50 Serum or plasma sodium measurement (moles/volume) 139 mmol/L 135-145 Serum or plasma potassium measurement (moles/volume) 4.0 mmol/L 3.6-5.0 Serum or plasma chloride measurement (moles/volume) 101 mmol/L 98-107 Carbon dioxide 22 mmol/L 21-32 Serum or plasma anion gap determination (moles/volume) 16 mmol/L 5-14 Serum or plasma urea nitrogen measurement (mass/volume ) 16 mg/dL 7-18 Serum or plasma creatinine measurement (mass/volume) 1.84 mg/dL 0.60-1.30 Serum or plasma urea nitrogen/creatinine mass ratio 9 NRG Serum or plasma creatinine measurement w ith calculation of estimated glomerular filtration rate 39 NRG Serum or plasma glucose measurement (mass/volume) 123 mg/dL 70-105 Serum or plasma calcium measurement (mass/volume) 9.2 mg/dL 8.5-10.1 Serum or plasma total bilirubin measurement (mass/volu me) < mg/dL 0.1-1.0 Serum or plasma alkaline phosphatase eugene surement (enzymatic activity/volume) 90 U/L 40-136 Serum or plasma aspartate aminotransfera se measurement (enzymatic activity/volume) 19 U/L 5-34 Serum or plasma alanine aminotransferase measurement (enzymatic activity/volume) 15 U/L 0-55 Serum or plasma protein measurement (mass/volume) 6.8 g/dL 6.4-8.2 Serum or plasma albumin measurement (mass/volume) 3.9 g/dL 3.2-4.5 CALCIUM CORRECTED 9.3 mg/dL 8.5-10.1 Magnesium - 02/15/20 03:50 Magnesium 1.9 mg/dL 1.6-2.4 TROPONIN I FS - 02/15/20 03:50 TROPONIN I FS < 0.30 <0.30 PROBNP FS - 02/15/20 03:50 PROBNP FS 470.1 pg/mL <75.0 Complete urinalysis with reflex to cultu re - 02/22/20 18:45 Urine color determination YELLOW NRG Urine clarity determination CLEAR NR G Urine pH measurement by test strip 6.0 5-9 Specific gravity of urine by test strip 1.020 1.016-1.022 Urine protein assay by test strip, semi-quantitative 3+ NEGATIVE Urine glucose detection by automated test strip NE GATIVE NEGATIVE Erythrocytes detection in urine sediment by light micr oscopy TRACE NEGATIVE Urine ketones detection by automated test strip NE GATIVE NEGATIVE Urine nitrite detection by test strip NEGATIVE NEGATIVE Urine total bilirubin detection by test strip NEGA TIVE NEGATIVE Urine urobilinogen measurement by automated test strip (mass/volume) 0.2 mg/dL < = 1.0 Urine leukocyte esterase detection by dipstick NEG ATIVE NEGATIVE Automated urine sediment erythrocyte cou nt by microscopy (number/high power field) RARE NRG Automated urine sediment leukocyte count by microscopy (number/high power field) NONE NRG Bacteria detection in urine sediment by light microsco py FEW NRG Squamous epithelial cells detection in u rine sediment by light microscopy 5-10 NRG Crystals detection in urine sediment by light microsco py NONE NRG Casts detection in urine sediment by light microscopy NONE NRG Mucus detection in urine sediment by light microscopy NEGATIVE NRG Complete urinalysis with reflex to culture NO NRG Urine drug screening test - 02/22/20 18: 45 Urine phencyclidine detection by screening method NEGATIVE NEGATIVE Urine benzodiazepines detection by screening method NEGATIVE NEGATIVE Urine cocaine detection NEGATIVE NEGATI VE Urine amphetamines detection by screening method N EGATIVE NEGATIVE Urine methamphetamine detection by screening method NEGATIVE NEGATIVE Urine cannabinoids detection by screening method N EGATIVE NEGATIVE Urine opiates detection by screening method NEGATI VE NEGATIVE Urine barbiturates detection NEGATIVE N EGATIVE Screening urine tricyclic antidepressants detection POSITIVE NEGATIVE Urine methadone detection by screening method NEGA TIVE NEGATIVE Urine oxycodone detection NEGATIVE NEGA TIVE Urine propoxyphene detection NEGATIVE N EGATIVE Blood CBC with ordered manual differenti al panel - 02/22/20 19:13 Blood leukocytes automated count (number/volume) 8.0 10*3/uL 4.3-11.0 Blood erythrocytes automated count (number/volume) 4.59 10*6/uL 4.35-5.85 Venous blood hemoglobin measurement (mass/volume) 13.2 g/dL 11.5-16.0 Blood hematocrit (volume fraction) 40 % 35-52 Automated erythrocyte mean corpuscular volume 88 [ foz_us] 80-99 Automated erythrocyte mean corpuscular h emoglobin (mass per erythrocyte) 29 pg 25-34 Automated erythrocyte mean corpuscular h emoglobin concentration measurement (mass/volume) 33 g/dL 32-36 Automated erythrocyte distribution width ratio 15. 2 % 10.0- 14.5 Automated blood platelet count (count/volume) 354 10*3/uL 130-400 Automated blood platelet mean volume measurement 8.7 [foz_us] 7.4-10.4 Automated blood neutrophils/100 leukocytes 48 % 42-75 Automated blood lymphocytes/100 leukocytes 42 % 12-44 Blood monocytes/100 leukocytes 1 % NRG Automated blood eosinophils/100 leukocytes 2 % 0-10 Automated blood basophils/100 leukocytes 1 % 0-10 Blood neutrophils automated count (number/volume) 3.9 10*3 1.8-7.8 Blood lymphocytes automated count (number/volume) 3.4 10*3 1.0-4.0 Blood monocytes automated count (number/volume) 0. 6 10*3 0.0-1.0 Automated eosinophil count 0.2 10*3/uL 0 .0-0.3 Automated blood basophil count (count/volume) 0.0 10*3/uL 0.0-0.1 Manual blood segmented neutrophils/100 leukocytes 44 % NRG Blood band neutrophils/100 leukocytes 0 % NRG Manual blood lymphocytes/100 leukocytes 53 % NRG Manual eosinophils/100 leukocytes in nose 2 % NRG Manual blood basophils/100 leukocytes 0 % NRG Blood erythrocyte morphology finding identification NORMAL NRG PT panel in platelet poor plasma by coag ulation assay - 02/22/20 19:13 Prothrombin time (PT) in platelet poor plasma by coagu lation assay 13.4 s 12.2-14.7 INR in platelet poor plasma or blood by coagulation as say 1.0 0.8-1.4 Blood lactic acid measurement (moles/vol ume) - 02/22/20 19:13 Blood lactic acid measurement (moles/volume) 0.58 mmol/L 0.50-2.00 Comprehensive metabolic panel - 02/22/20 19:13 Serum or plasma sodium measurement (moles/volume) 138 mmol/L 135-145 Serum or plasma potassium measurement (moles/volume) 4.2 mmol/L 3.6-5.0 Serum or plasma chloride measurement (moles/volume) 102 mmol/L 98-107 Carbon dioxide 24 mmol/L 21-32 Serum or plasma anion gap determination (moles/volume) 12 mmol/L 5-14 Serum or plasma urea nitrogen measurement (mass/volume ) 16 mg/dL 7-18 Serum or plasma creatinine measurement (mass/volume) 2.18 mg/dL 0.60-1.30 Serum or plasma urea nitrogen/creatinine mass ratio 7 NRG Serum or plasma creatinine measurement w ith calculation of estimated glomerular filtration rate 32 NRG Serum or plasma glucose measurement (mass/volume) 106 mg/dL 70-105 Serum or plasma calcium measurement (mass/volume) 8.5 mg/dL 8.5-10.1 Serum or plasma total bilirubin measurement (mass/volu me) 0.2 mg/dL 0.1-1.0 Serum or plasma alkaline phosphatase eugene surement (enzymatic activity/volume) 95 U/L 40-136 Serum or plasma aspartate aminotransfera se measurement (enzymatic activity/volume) 19 U/L 5-34 Serum or plasma alanine aminotransferase measurement (enzymatic activity/volume) 16 U/L 0-55 Serum or plasma protein measurement (mass/volume) 6.7 g/dL 6.4-8.2 Serum or plasma albumin measurement (mass/volume) 3.7 g/dL 3.2-4.5 CALCIUM CORRECTED 8.7 mg/dL 8.5-10.1 Lipase - 02/22/20 19:13 Lipase 26 U/L 8-78 Encounters ACCT No. Visit Date/Time Discharge Status Pt. Type Provider Facility Loc./Unit Complaint [id number] 11/12/2019 09:40:00 11/12/2019 23:59:5 9 [facility] Outpatient ONEIL MAZARIEGOS, MOUNIKA ROMERO [facility] [id number] 12/11/2019 10:00:00 Document Registration [id number] 06/29/2019 09:40:00 Document Registration [id number] 04/20/2019 10:00:00 Document Registration [id number] 09/20/2018 09:20:00 Document Registration [id number] 08/10/2018 11:40:00 Document Registration [id number] 02/22/2020 18:41:00 21:10:00 DIS Outpatient OLLIE WOOD DO Via [facility] FS ABD PAIN [id number] 02/15/2020 03:26:00 05:25:00 DIS Emergency ROVENSTALPESH CONDE DO Via [facility] FS CARDIC CONCERNS [id number] 02/05/2020 11:26:00 14:29:00 DIS Emergency HECTOR LADD DO Via [facility] FS ELEV BP [id number] 12/27/2019 17:57:00 19:48:00 DIS Emergency EDISON CHAMBERLAIN MD Via [facility] FS LOWER ABD PAIN [id number] 11/29/2019 22:03:00 23:16:00 DIS Emergency ORESTES VELASCO MD Via [facility] FS LOWER ABD PAIN [id number] 11/04/2019 16:40:00 18:15:00 DIS Emergency ANTONIO CALLEJAS MD Via [facility] FS RT SIDED PAIN [id number] 10/23/2019 08:51:00 10:49:00 DIS Emergency HECTOR LADD DO Via [facility] FS LT FLANK PAIN; NAUSEA [id number] 08/31/2019 04:15:00 06:35:00 DIS Emergency EDISON CHAMBERLAIN MD Via [facility] FS CHEST PAIN [id number] 08/28/2019 16:55:00 17:54:00 DIS Emergency MOIZ MARLEY DO Via [facility] FS SUPRAPUBIC CRAMPING [id number] 08/27/2019 09:29:00 23:59:59 CLS Outpatient BROWN NGUYEN APRN Via [facility] FS M25.571 [id number] 08/15/2019 17:05:00 19:10:00 DIS Emergency JÚNIOR MAZARIEGOS, ANTONIO Diaz [facility] FS LT KNEE PAIN [id number] 07/29/2019 21:19:00 22:01:00 DIS Emergency ORESTES VELASCO MD Via [facility] FS RIGHT FOOT POSS BUG BIT E [id number] 07/28/2019 18:05:00 20:13:00 DIS Emergency FEDE AMARO MD Via [facility] FS HEADACHE [id number] 07/09/2019 08:56:00 23:59:59 CLS Outpatient BLAYNE BERRY Via [facility] FS LEFT KNEE PAIN [id number] 06/04/2019 19:53:00 22:04:00 DIS Emergency RALPH LÓPEZ MD Via [facility] POST PACE MAKER OP/L SHOULDER PAIN/RACING HEART [id number] 05/22/2019 19:15:00 22:34:00 DIS Emergency DELIO ARIZA DO [facility] FS CHEST PAIN [id number] 05/11/2019 13:28:00 14:48:00 DIS Emergency ANTONIO CALLEJAS MD [facility] BLOOD COMING OUT FROM S URGERY SITE [id number] 05/09/2019 19:36:00 06:23:00 DIS Inpatient HOLLY MAZARIEGOS, ALEX Griffith Via [facility] 4TH CHEST PAIN;ELEVATED BNP ;H/O CARDIAC ARREST [id number] 05/05/2019 18:06:00 20:26:00 DIS Emergency NIK CELIS [facility] PACEMAKER CONCERNS [id number] 04/20/2019 22:38:00 23:29:00 DIS Emergency VINITA RICHARD DO Via [facility] FS SWOLLEN ARMS, HANDS AND FEET [id number] 04/19/2019 15:50:00 18:33:00 DIS Emergency LISA MARCELINO TEACHER ADULT EDUCATION Via [facility] HEADACHE [id number] 04/12/2019 20:29:00 23:19:00 DIS Emergency BULMARO MAZARIEGOS, EDISON Mcghee Via [facility] FS VOMITING, BACK PAIN, DI ZZY [id number] 04/09/2019 00:33:00 01:40:00 DIS Emergency DELIO ARIZA DO [facility] FS LEFT PAIN [id number] 01/06/2019 01:18:00 03:15:00 DIS Emergency FEDE AMARO MD [facility] CP,FALL 2 DAYS AGO [id number] 01/01/2019 15:50:00 19:25:00 DIS Emergency NIK CELIS [facility] SOB/COUGHING UP BLOOD [id number] 11/01/2018 14:51:00 19:37:00 DIS Emergency MARIBEL MAZARIEGOS, RALPH Mcelroy Via [facility] SOB;HEAD PAIN;H IGH BP [id number] 10/23/2018 12:07:00 23:59:59 CLS Outpatient TONG MAZARIEGOS, FELECIA Diaz Via [facility] CARD CARDIOMYOPATHY,HTN,MR,S INUS BRADYCARDIA [id number] 08/05/2018 17:39:00 19:33:00 DIS Emergency NIK CELIS [facility] HEAD HURTING,RT ANKLE S WOLLEN [id number] 01/12/2018 10:17:00 018 23:59:59 CLS Outpatient MICHAEL BERMAN Via [facility] CARD G93.1 ANOXI C ENCEPHALOPATHY [id number] 10/06/2017 12:00:00 017 23:59:59 CLS Preadmit FELECIA FORTUNE MD Via [facility] CARD CARDIOMYOPATHY I42.9 [id number] 03/03/2016 12:12:00 016 23:59:59 CLS Outpatient MICHAEL BERMAN Via [facility] CARD ENCOPELPATH [id number] 02/15/2016 15:59:00 016 18:46:00 DIS Emergency OSMAN GONSALES MD Via [facility] DEFIBRILLATOR ISSUES [id number] 12/01/2015 18:08:00 016 21:10:00 DIS Emergency LIZ RODRIGO TINSLEY Vi a [facility] ER IRREGULAR HEART RATE [id number] 08/23/2015 20:00:00 015 01:08:00 DIS Emergency MARIBEL MAZARIEGOS, RALPH Mcelroy Via [facility] DEFIBRILLATOR B EEPING [id number] 08/08/2015 22:55:00 015 00:13:00 DIS Emergency ORESTES VELASCO MD [facility] L ARM/RIB CAGE PAIN [id number] 07/27/2015 18:45:00 015 12:40:00 DIS Inpatient APRIL DOMINIQUE DO A Via [facility] CSD L PNEUMOTHORAX L CHEST WALL PX ELEV LFT'S [id number] 07/23/2015 06:38:00 015 11:45:00 DIS Outpatient FELECIA FORTUNE MD Via [facility] CATH CGF,CARDIOMYOPATHY [id number] 07/15/2015 11:28:00 23:59:59 CLS Outpatient FELECIA FORTUNE MD Via [facility] LAB CHF,HTN,TR [id number] 07/11/2015 10:45:00 015 23:59:59 CLS Outpatient NERISSA LAURA, MICHAEL Mohan Via [facility] CARD CHF,CARDINU REOPATHY HTN [id number] 03/26/2015 13:23:00 015 18:00:00 DIS Inpatient APRIL DOMINIQUE DO Via [facility] CSD UNK [id number] 03/21/2015 12:45:00 015 12:46:00 DIS Inpatient KAUR MAZARIEGOS, LISSET Mcghee Via [facility] IRF DEBILITY,ENCEPHALOPATHY
--- NOTE | 2020-04-08 01:07 | ED Chest Pain ---
General Chief Complaint: Cardiac/General Problems Stated Complaint: PACE MAKER ACTING FUNNY Source: patient Exam Limitations: other (poor historian) History of Present Illness Date Seen by Provider: April 08, 2020 Time Seen by Provider: 00:54 Initial Comments Patient presents ER by private conveyance from home with chief complaint of ch est pain around her pacemaker/defibrillator feeling like a pinching sensation coming and going for the past week. She's having no nausea, jaw pain, radiation. Her limbs, sweats area she has a history of a clot in her heart with subsequent placement of defibrillator/pacemaker at [place], [place]. She follows with Dr. Patterson and Dr. Riggs locally. She has not seen anybody in the past week about this but last month she went to [facility] and they sent her to [place] where she says they turned one of her coils off because it was malfunctioning so the defibrillator is apparently off. She says only the pacemaker works now. She said they did not opt to do surgery because she might . Patient has not felt any kicking sensation in her chest. She does have acid reflux but is not having problems with that now. She takes Pepcid. She did not take anything else at home for the pain. She has a history of anoxic encephalopathy and heart failure with partially recovered ejection fraction, nonischemic. History of pneumothorax secondary to her implant. History of illicit drug use and anxiety. Echocardiogram by Dr. Patterson 2015 demonstrates an EF of 40%. Cardiac catheterization by Dr. Patterson 2014: Nonobstructive disease. Normal left ventricular end-diastolic pressure. Allergies and Home Medications Allergies Coded Allergies: JIA Inhibitors (Verified Allergy, Severe, 05/22/19) ARB-Angiotensin Receptor Antagonist (Verified Allergy, Severe, 05/22/19) baclofen (Unverified Allergy, Unknown, 05/22/19) ON H&P phenazopyridine (Unverified Allergy, Unknown, 05/22/19) ON H&P Home Medications Albuterol Sulfate 8 Gm Hfa.aer.ad, 2 PUFF INH Q6H PRN for SHORTNESS OF BREATH, (Reported) Amlodipine Besylate 10 Mg Tablet, 10 MG PO DAILY, (Reported) Apixaban 5 Mg Tablet, 5 MG PO BID Prescribed by: RALPH DELCID on 12/5/18 1856 Dicyclomine HCl 10 Mg Capsule, 10 MG PO QID PRN for abdominal pain/nausea Prescribed by: EDISON CHAMBERLAIN on 12/27/19 193 Diphenoxylate HCl/Atropine 1 Each Tablet, 1 EACH PO BID PRN for DIARRHEA Prescribed by: ORESTES VELASCO on 11/29/19 2309 Doxycycline Hyclate 100 Mg Tablet, 100 MG PO BID Prescribed by: MOIZ MARLEY on 08/28/19 174 Fluconazole 100 Mg Tablet, 100 MG PO Q48H Prescribed by: MOIZ MARLEY on 08/28/19 174 Methylprednisolone 4 Mg Tab, 4 MG PO UD as directed per dose pack Prescribed by: ANTONIO CALLEJAS on 08/15/19 184 Metoprolol Tartrate 50 Mg Tablet, 50 MG PO BID Prescribed by: FELECIA PATTERSON on 07/24/15 0841 Prednisone 20 Mg Tab, 40 MG PO DAILY Prescribed by: ANTONIO CALLEJAS on 11/04/19 1759 Patient Home Medication List Home Medication List Reviewed: Yes Review of Systems Review of Systems Constitutional: No chills, No diaphoresis, No fever, No malaise EENTM: No Blurred Vision, No Double Vision Respiratory: Denies Cough, Denies Shortness of Air Cardiovascular: See HPI, Chest Pain; Denies Edema, Denies Irregular Heart Rate, Denies Lightheadedness Gastrointestinal: Denies Constipated, Denies Diarrhea, Denies Nausea Genitourinary: Denies Burning, Denies Discharge, Denies Drainage Musculoskeletal: No back pain, No joint pain Skin: No change in color, No lumps Psychiatric/Neurological: Denies Anxiety, Denies Depressed, Denies Headache All Other Systems Reviewed Negative Unless Noted: Yes Past Zyshhzj-Zagdmb-Lhiema Hx Patient Social History Alcohol Use: Denies Use Recreational Drug Use: No Smoking Status: Current Everyday Smoker Type Used: Cigarettes 2nd Hand Smoke Exposure: No Recent Foreign Travel: No Contact w/Someone Who Travel: No Recent Hopitalizations: No Immunizations Up To Date Tetanus Booster (TDap): Unknown PED Vaccines UTD: Yes Date of Pneumonia Vaccine: Sep 09, 2018 Date of Influenza Vaccine: Aug 19, 2015 Seasonal Allergies Seasonal Allergies: No Past Medical History Surgeries: Yes (DEFIBRILLATOR PLACED 05/10/19. PEG TUBE--REMOVED, uterine ablation) Abdominal, Section, Defibrillator, Gallbladder, Tracheostomy Respiratory: Yes (ARDS-CODED; PNEUMOTHORAX 06/2015) Pneumonia, Chronic Bronchitis Currently Using CPAP: No Currently Using BIPAP: No Cardiac: Yes (PULMONARY EDEMA/CARDIAC CAUSE-R/T ATRIAL THROMBUS; CARDIAC ARREST;V-FIB ) Cardiomyopathy, Endocarditis, Hypertension, Valvular Heart Disease Neurological: Yes (encephalopathy-hypoxia, anoxic brain injury) Reproductive Disorders: No Sexually Transmitted Disease: No Genitourinary: Yes Renal Failure Gastrointestinal: Yes Gastroesophageal Reflux Musculoskeletal: Yes (GAIT DISTURBANCE) Endocrine: No HEENT: No Loss of Vision: Denies Hearing Impairment: Denies Cancer: No Psychosocial: Yes (per med record) Anxiety, Bipolar, Depression Integumentary: No Blood Disorders: Yes (ANEMIA) Family Medical History Patient reports no known family medical history. No Pertinent Family Hx Physical Exam Vital Signs Vital Signs - First Documented 04/08/20 00:47 Temp 36.9 Pulse 75 Resp 24 B/P (MAP) 150/119 (129) Pulse Ox 100 O2 Delivery Room Air Capillary Refill : Height, Weight, BMI Height: 5'3.00" Weight: 234lbs. 0oz. 106.884337gm; 42.00 BMI Method:Stated General Appearance: No Apparent Distress, Obese HEENT: PERRL/EOMI, TMs Normal, Pharynx Normal, Moist Mucous Membranes Neck: Full Range of Motion, Normal Inspection Respiratory: Lungs Clear, Normal Breath Sounds, No Accessory Muscle Use, No Respiratory Distress, Other (chest pain is reproducible by direct palpation over the sternum or around the area of the pacemaker.) Cardiovascular: Regular Rate, Rhythm, No Edema, Normal Peripheral Pulses Gastrointestinal: Normal Bowel Sounds, Non Tender, Soft Extremity: Normal Capillary Refill, Normal Inspection, No Pedal Edema Neurologic/Psychiatric: Alert, Oriented x3, Normal Mood/Affect Skin: Normal Color, Warm/Dry Progress/Results/Core Measures Results/Orders Lab Results Laboratory Tests Test 04/08/20 01:03 Range/Units White Blood Count 7.7 4.3-11.0 10^3/uL Red Blood Count 4.83 4.35-5.85 10^6/uL Hemoglobin 13.7 11.5-16.0 G/DL Hematocrit 42 35-52 % Mean Corpuscular Volume 87 80-99 FL Mean Corpuscular Hemoglobin 28 25-34 PG Mean Corpuscular Hemoglobin Concent 33 32-36 G/DL Red Cell Distribution Width 15.8 H 10.0-14.5 % Platelet Count 306 130-400 10^3/uL Mean Platelet Volume 8.8 7.4-10.4 FL Neutrophils (%) (Auto) 39 L 42-75 % Lymphocytes (%) (Auto) 49 H 12-44 % Monocytes (%) (Auto) 9 0-12 % Eosinophils (%) (Auto) 2 0-10 % Basophils (%) (Auto) 0 0-10 % Neutrophils # (Auto) 3.0 1.8-7.8 X 10^3 Lymphocytes # (Auto) 3.8 1.0-4.0 X 10^3 Monocytes # (Auto) 0.7 0.0-1.0 X 10^3 Eosinophils # (Auto) 0.1 0.0-0.3 10^3/uL Basophils # (Auto) 0.0 0.0-0.1 10^3/uL Prothrombin Time 12.6 12.2-14.7 SEC INR Comment 0.9 0.8-1.4 Activated Partial Thromboplast Time 24 24-35 SEC Sodium Level 140 135-145 MMOL/L Potassium Level 4.2 3.6-5.0 MMOL/L Chloride Level 106 98-107 MMOL/L Carbon Dioxide Level 22 21-32 MMOL/L Anion Gap 12 5-14 MMOL/L Blood Urea Nitrogen 21 H 7-18 MG/DL Creatinine 1.94 H 0.60-1.30 MG/DL Estimat Glomerular Filtration Rate 36 BUN/Creatinine Ratio 11 Glucose Level 84 70-105 MG/DL Calcium Level 9.4 8.5-10.1 MG/DL Corrected Calcium 9.6 8.5-10.1 MG/DL Magnesium Level 2.0 1.6-2.4 MG/DL Total Bilirubin 0.2 0.1-1.0 MG/DL Aspartate Amino Transf (AST/SGOT) 20 5-34 U/L Alanine Aminotransferase (ALT/SGPT) 12 0-55 U/L Alkaline Phosphatase 82 40-136 U/L Myoglobin 86.0 10.0-92.0 NG/ML Troponin I < 0.028 <0.028 NG/ML B-Type Natriuretic Peptide 111.8 H <100.0 PG/ML Total Protein 6.9 6.4-8.2 GM/DL Albumin 3.8 3.2-4.5 GM/DL Lipase 32 8-78 U/L My Orders Orders - JÚNIORANTONIO J Cbc With Automated Diff (04/08/20 00:56) Magnesium (04/08/20 00:56) Chest 1 View, Ap/Pa Only (04/08/20 00:56) Ekg Tracing (04/08/20 00:56) Comprehensive Metabolic Panel (04/08/20 00:56) Myoglobin Serum (04/08/20 00:56) Protime With Inr (04/08/20 00:56) Partial Thromboplastin Time (04/08/20 00:56) O2 (04/08/20 00:56) Monitor-Rhythm Ecg Trace Only (04/08/20 00:56) Lipid Panel (04/09/20 06:00) Ed Iv/Invasive Line Start (04/08/20 00:56) Lipase (04/08/20 00:56) Nitroglycerin 0.4 Mg Btl 25's (Nitrostat (04/08/20 01:00) Aspirin Chewable Tablet (Baby Aspirin Ch (04/08/20 01:00) Troponin I (04/08/20 01:03) BNP (04/08/20 01:03) Medications Given in ED Current Medications Medications Dose Ordered Sig/Mikal Route Start Time Stop Time Status Last Admin Dose Admin Aspirin 324 mg ONCE ONCE PO 04/08/20 01:00 04/08/20 01:01 DC 04/08/20 01:01 324 MG Nitroglycerin 0.4 mg UD PRN SL 04/08/20 01:00 04/08/20 01:02 0.4 MG Vital Signs/I&O 04/08/20 00:47 Temp 36.9 Pulse 75 Resp 24 B/P (MAP) 150/119 (129) Pulse Ox 100 O2 Delivery Room Air Progress Progress Note #1: Time: 01:06 Progress Note Aspirin and nitroglycerin. Chest x-ray to evaluate the leads. We'll get an interrogation of the pacemaker/defibrillator. Pain went from a 3 out of 10 to a 0 out of 10 after 1 dose of nitroglycerin. Progress Note #2: Time: 01:42 Progress Note Pacemaker interrogation report 0 episode. Appears to be working correctly. Patient has no symptoms at this time. If her troponin is negative after a week of pain then I would suspect this is nothing to do with her heart. It is reproducible to direct palpation and likely is part of her chest wall musculoskeletal-type pain. 5 years ago she had a clean heart catheter nonobstructive disease. When her troponin comes back negative we will allow her to go home and follow up later this week with primary care. Initial ECG Impression Date: April 08, 2020 Initial ECG Impression Time: 00:55 Initial ECG Rate: 74 Initial ECG Rhythm: Normal Sinus Initial ECG Intervals: QT (480) Initial ECG Impression: Normal, Nonspecific Changes Initial ECG Comparisson: Unchanged Comment Normal sinus rhythm without clinically relevant ST changes. Prolonged QTC of 480 ms. There is a one half to one block elevation in the ST segment in V1 and V2 without reciprocal ST depression. This was seen on previous EKGs and represents her baseline. Diagnostic Imaging Diagonstic Imaging: Xray Plain Films/CT/US/NM/MRI: chest (1v) Comments No acute cardiopulmonary processes noted. Reviewed: Reviewed by Me Departure Impression Primary Impression: Chest wall pain Disposition: HOME, SELF-CARE Condition: Stable Departure-Patient Inst. Decision time for Depature: 02:01 Referrals: MOUNIKA RIGGS MD (PCP/Family) Primary Care Physician Patient Instructions: Chest Pain That Is Not Caused by the Heart (DC) Add. Discharge Instructions: Plan to follow up in 1-2 weeks with your primary care doctor to discuss your chest wall discomfort. Tylenol 1000 mg every 8 hours as needed for pain. Topical creams such as icy hot or Biofreeze. All discharge instructions reviewed with patient and/or family. Voiced understanding. ANTONIO CALLEJAS April 08, 2020 01:06
[2020-04-08 01:14] LABS: BASOPHILS % (AUTO) 0 % (0-10); EOSINOPHILS # (AUTO) 0.1 10^3/uL (0.0-0.3); EOSINOPHILS % (AUTO) 2 % (0-10); HEMATOCRIT 42 % (35-52); HEMOGLOBIN 13.7 G/DL (11.5-16.0); LYMPHOCYTES # (AUTO) 3.8 X 10^3 (1.0-4.0); LYMPHOCYTES % (AUTO) 49 % (12-44); MEAN CORPUSCULAR HEMOGLOBIN 28 PG (25-34); MEAN CORPUSCULAR HGB CONC 33 G/DL (32-36); MEAN CORPUSCULAR VOLUME 87 FL (80-99); MEAN PLATELET VOLUME 8.8 FL (7.4-10.4); MONOCYTES # (AUTO) 0.7 X 10^3 (0.0-1.0); MONOCYTES % (AUTO) 9 % (0-12); NEUTROPHILS % (AUTO) 39 % (42-75); PLATELET COUNT 306 10^3/uL (130-400); RED CELL DISTRIBUTION WIDTH 15.8 % (10.0-14.5); WHITE BLOOD COUNT 7.7 10^3/uL (4.3-11.0)
[2020-04-08 01:27] LABS: ALBUMIN 3.8 GM/DL (3.2-4.5); CHLORIDE 106 MMOL/L (98-107); POTASSIUM 4.2 MMOL/L (3.6-5.0); SODIUM 140 MMOL/L (135-145)
[2020-04-08 01:28] LABS: CALCIUM 9.4 MG/DL (8.5-10.1)
[2020-04-08 01:29] LABS: GLUCOSE 84 MG/DL (70-105); TOTAL PROTEIN 6.9 GM/DL (6.4-8.2)
[2020-04-08 01:30] LABS: CARBON DIOXIDE 22 MMOL/L (21-32)
[2020-04-08 01:31] LABS: BILIRUBIN,TOTAL 0.2 MG/DL (0.1-1.0); INR 0.9 (0.8-1.4); PROTHROMBIN TIME PATIENT 12.6 SEC (12.2-14.7)
[2020-04-08 01:32] LABS: ALKALINE PHOSPHATASE 82 U/L (40-136)
[2020-04-08 01:33] LABS: CREATININE SERUM 1.94 MG/DL (0.60-1.30); GFR ESTIMATED 36
[2020-04-08 01:34] LABS: BUN/CREATININE RATIO 11
--- NOTE | 2020-04-08 01:34 | NUR ---
PT'S PACEMAKER INTERREGATED AT THIS TIME.
[2020-04-08 01:36] LABS: ALANINE AMINOTRANSFERASE 12 U/L (0-55)
[2020-04-08 01:37] LABS: LIPASE 32 U/L (8-78)
[2020-04-08 02:06] VITALS: BP 144/105
--- NOTE | 2020-04-08 05:24 | Diagnostic Imaging Report ---
INDICATION: Pacemaker malfunction COMPARISON: 02/15/2020 FINDINGS: Single frontal view of the chest demonstrates mild cardiomegaly. Pulmonary vasculature, however, is within normal limits. Left-sided AICD is noted in stable position. The lungs are well aerated and clear. No large pleural effusion or pneumothorax is seen. The visualized osseous structures show no acute abnormalities. IMPRESSION: 1. Mild cardiomegaly, but no evidence of failure or focal infiltrate. Dictated by: Dictated on workstation # [id number]
== END 2020-04-08 02:07 | disposition home or self-care (01) ==
LOC: EDUNIT# 00:35 → ER 00:37
DX: R07.89 Other chest pain (principal); I11.0 Hypertensive heart disease with heart failure; I50.9 Heart failure, unspecified; F17.210 Nicotine dependence, cigarettes, uncomplicated; Z87.820 Personal history of traumatic brain injury; Z95.810 Presence of automatic (implantable) cardiac defibrillator; Z79.01 Long term (current) use of anticoagulants; Z88.8 Allergy status to other drugs, medicaments and biological substances; Z79.52 Long term (current) use of systemic steroids
CPT/HCPCS: 36415; 71045; 80053; 83690; 83735; 83874; 83880; 84484; 85025; 85610; 85730; 93005; 93041

== ENCOUNTER 2020-04-10 03:03 | Emergency (ER) | payer MEDICAID ==
[~2020-04-10] VITALS: Ht 160 cm; Wt 115.2 kg
[2020-04-10] MEDS ORDERED: ASPIRIN 81 MG CHEW (CHILDREN'S ASA) PO ONE (03:15)
--- NOTE | 2020-04-10 03:24 | ED Chest Pain ---
General Chief Complaint: Chest Pain Stated Complaint: SHORT OF BREATHE,CHEST PAIN Source: patient Exam Limitations: no limitations (JULEE YOUNG DO) History of Present Illness Date Seen by Provider: April 10, 2020 Time Seen by Provider: 03:05 Initial Comments The patient is a 29-year-old female who presents for evaluation of chest pain radiating to the back as well as hypertension over the last 4 hours or so. She reports a history of hypertension and a pacemaker/defibrillator. She was recently sent to [employer] for a chiming noise coming from her device but states that over the last few weeks it has not been doing anything unusual. She is alert and oriented 4, somewhat anxious, but appears to be in no distress at this time. She denies fevers or chills, palpitations, abdominal pain, back pain, dizziness or syncope. Timing/Duration: 4-6 hours Severity/Quality: moderate Location: substernal Radiation: back Activities at Onset: none ASA po LABORATORY MECHANIC HELPER: No NTG SL LABORATORY MECHANIC HELPER: No (JULEE YOUNG DO) Allergies and Home Medications Allergies Coded Allergies: JIA Inhibitors (Verified Allergy, Severe, 05/22/19) ARB-Angiotensin Receptor Antagonist (Verified Allergy, Severe, 05/22/19) baclofen (Unverified Allergy, Unknown, 05/22/19) ON H&P phenazopyridine (Unverified Allergy, Unknown, 05/22/19) ON H&P Home Medications Albuterol Sulfate 8 Gm Hfa.aer.ad, 2 PUFF INH Q6H PRN for SHORTNESS OF BREATH, (Reported) Amlodipine Besylate 10 Mg Tablet, 10 MG PO DAILY, (Reported) Apixaban 5 Mg Tablet, 5 MG PO BID Prescribed by: RALPH DELCID on 11/01/18 185 Dicyclomine HCl 10 Mg Capsule, 10 MG PO QID PRN for abdominal pain/nausea Prescribed by: EDISON CHAMBERLAIN on 12/27/19 193 Diphenoxylate HCl/Atropine 1 Each Tablet, 1 EACH PO BID PRN for DIARRHEA Prescribed by: ORESTES VELASCO on 11/29/192308 Doxycycline Hyclate 100 Mg Tablet, 100 MG PO BID Prescribed by: MOIZ MARLEY on 08/28/19 174 Fluconazole 100 Mg Tablet, 100 MG PO Q48H Prescribed by: MOIZ MARLEY on 08/28/19 1746 Methylprednisolone 4 Mg Tab, 4 MG PO UD as directed per dose pack Prescribed by: ANTONIO CALLEJAS on 08/15/19 1841 Metoprolol Tartrate 50 Mg Tablet, 50 MG PO BID Prescribed by: FELECIA FORTUNE on 07/24/15 0841 Prednisone 20 Mg Tab, 40 MG PO DAILY Prescribed by: ANTONIO CALLEJAS on 11/04/19 1759 Patient Home Medication List Home Medication List Reviewed: Yes (NAHOMY HANNAH MD) Review of Systems Review of Systems Constitutional: no symptoms reported EENTM: No Symptoms Reported Respiratory: Shortness of Air Cardiovascular: Chest Pain Gastrointestinal: No Symptoms Reported Genitourinary: No Symptoms Reported Musculoskeletal: no symptoms reported Skin: no symptoms reported Psychiatric/Neurological: No Symptoms Reported Endocrine: No Symptoms Reported Hematologic/Lymphatic: No Symptoms Reported (JULEE YOUNG DO) All Other Systems Reviewed Negative Unless Noted: Yes (JULEE YOUNG DO) Past Eplrzsu-Tfsyrz-Jqwdxq Hx Past Med/Social Hx: Reviewed Nursing Past Med/Soc Hx (JULEE YOUNG DO) Patient Social History Type Used: Cigarettes 2nd Hand Smoke Exposure: No Recent Foreign Travel: No Contact w/Someone Who Travel: No Recent Hopitalizations: No (JULEE YOUNG DO) Immunizations Up To Date Tetanus Booster (TDap): Unknown PED Vaccines UTD: Yes Date of Pneumonia Vaccine: Sep 09, 2018 Date of Influenza Vaccine: Aug 19, 2015 (JULEE YOUNG DO) Seasonal Allergies Seasonal Allergies: No (JULEE YOUNG DO) Past Medical History Surgeries: Yes (DEFIBRILLATOR PLACED 05/10/19. PEG TUBE--REMOVED, uterine ablation) Abdominal, Section, Defibrillator, Gallbladder Respiratory: Yes (ARDS-CODED; PNEUMOTHORAX 06/2015) Pneumonia, Chronic Bronchitis Currently Using CPAP: No Currently Using BIPAP: No Cardiac: Yes (PULMONARY EDEMA/CARDIAC CAUSE-R/T ATRIAL THROMBUS; CARDIAC ARREST;V-FIB ) Cardiomyopathy, Endocarditis, Hypertension, Valvular Heart Disease Neurological: Yes (encephalopathy-hypoxia, anoxic brain injury) Reproductive Disorders: No Sexually Transmitted Disease: No Genitourinary: Yes Renal Failure Gastrointestinal: Yes Gastroesophageal Reflux Musculoskeletal: Yes (GAIT DISTURBANCE) Endocrine: No HEENT: No Loss of Vision: Denies Hearing Impairment: Denies Cancer: No Psychosocial: Yes (per med record) Anxiety, Bipolar, Depression Integumentary: No Blood Disorders: Yes (ANEMIA) (JULEE YOUNG DO) Family Medical History Patient reports no known family medical history. No Pertinent Family Hx (JULEE YOUNG DO) Physical Exam Vital Signs Vital Signs - First Documented 04/10/20 03:18 Temp 36.1 Pulse 103 Resp 19 B/P (MAP) 152/102 (119) O2 Delivery Room Air (NAHOMY HANNAH MD) Vital Signs Capillary Refill : (JULEE YOUNG DO) Height, Weight, BMI Height: 5'3.00" Weight: 234lbs. 0oz. 106.776879rn; 44.00 BMI Method:Stated General Appearance: No Apparent Distress, WD/WN, Obese HEENT: PERRL/EOMI, Pharynx Normal Neck: Full Range of Motion, Supple Respiratory: Chest Non Tender, Normal Breath Sounds, No Accessory Muscle Use, No Respiratory Distress Cardiovascular: Regular Rate, Rhythm, No Edema, No Murmur, Normal Peripheral Pulses Gastrointestinal: Normal Bowel Sounds, No Pulsatile Mass, Non Tender, Soft Extremity: Normal Capillary Refill, Normal Inspection, Normal Range of Motion, Non Tender Neurologic/Psychiatric: Alert, Oriented x3, No Motor/Sensory Deficits, Normal Mood/Affect Skin: Normal Color, Warm/Dry (JULEE YOUNG DO) Progress/Results/Core Measures Results/Orders Lab Results Laboratory Tests Test 04/10/20 03:15 04/10/20 06:49 Range/Units White Blood Count 8.2 4.3-11.0 10^3/uL Red Blood Count 4.81 4.35-5.85 10^6/uL Hemoglobin 13.8 11.5-16.0 G/DL Hematocrit 42 35-52 % Mean Corpuscular Volume 88 80-99 FL Mean Corpuscular Hemoglobin 29 25-34 PG Mean Corpuscular Hemoglobin Concent 33 32-36 G/DL Red Cell Distribution Width 15.3 H 10.0-14.5 % Platelet Count 337 130-400 10^3/uL Mean Platelet Volume 9.0 7.4-10.4 FL Neutrophils (%) (Auto) 41 L 42-75 % Lymphocytes (%) (Auto) 50 H 12-44 % Monocytes (%) (Auto) 7 0-12 % Eosinophils (%) (Auto) 2 0-10 % Basophils (%) (Auto) 1 0-10 % Neutrophils # (Auto) 3.4 1.8-7.8 X 10^3 Lymphocytes # (Auto) 4.1 H 1.0-4.0 X 10^3 Monocytes # (Auto) 0.6 0.0-1.0 X 10^3 Eosinophils # (Auto) 0.1 0.0-0.3 10^3/uL Basophils # (Auto) 0.1 0.0-0.1 10^3/uL Prothrombin Time 12.7 12.2-14.7 SEC INR Comment 0.9 0.8-1.4 Activated Partial Thromboplast Time 27 24-35 SEC D-Dimer 0.78 H 0.00-0.49 UG/ML Sodium Level 138 135-145 MMOL/L Potassium Level 3.6 3.6-5.0 MMOL/L Chloride Level 99 98-107 MMOL/L Carbon Dioxide Level 25 21-32 MMOL/L Anion Gap 14 5-14 MMOL/L Blood Urea Nitrogen 21 H 7-18 MG/DL Creatinine 2.02 H 0.60-1.30 MG/DL Estimat Glomerular Filtration Rate 35 BUN/Creatinine Ratio 10 Glucose Level 102 70-105 MG/DL Calcium Level 9.7 8.5-10.1 MG/DL Corrected Calcium 9.6 8.5-10.1 MG/DL Total Bilirubin 0.2 0.1-1.0 MG/DL Aspartate Amino Transf (AST/SGOT) 19 5-34 U/L Alanine Aminotransferase (ALT/SGPT) 15 0-55 U/L Alkaline Phosphatase 87 40-136 U/L Troponin I < 0.30 < 0.30 <0.30 NG/ML Pro-B-Type Natriuretic Peptide 797.5 H <75.0 PG/ML Total Protein 6.8 6.4-8.2 GM/DL Albumin 4.1 3.2-4.5 GM/DL (NAHOMY HANANH MD) Medications Given in ED Current Medications Medications Dose Ordered Sig/Mikal Route Start Time Stop Time Status Last Admin Dose Admin Aspirin 324 mg ONCE ONCE PO 04/10/20 03:15 04/10/20 03:17 DC 04/10/20 03:24 324 MG (NAHOMY HANNAH MD) Vital Signs/I&O 04/10/20 04/10/20 03:18 03:27 Temp 36.1 Pulse 103 Resp 19 B/P (MAP) 152/102 (119) O2 Delivery Room Air Room Air (NAHOMY HANNAH MD) Progress Progress Note : Progress Note @0600 - Pt care transferred to Dr. Hannah at this time. Awaiting second troponin at 0700. (JULEE YOUNG DO) Progress Note : Time: 07:36 Progress Note Negative evaluation in the emergency department. Patient resting comfortably. Negative troponin 2. Patient encouraged to follow up with her primary care physician and/or conditioning coach. Continue all medications. Patient be discharged home. (NAHOMY HANNAH MD) Comment @0309 - Sinus tachycardia, rate of 103, normal axis, no acute ischemic findings noted, no STEMI, reviewed and interpreted by myself (JULEE YOUNG DO) Departure Impression Primary Impression: Chest pain Disposition: 01 HOME, SELF-CARE Condition: Stable Departure-Patient Inst. Decision time for Depature: 07:36 (NAHOMY HANNAH MD) Referrals: MOUNIKA RIGGS MD (PCP/Family) Primary Care Physician Patient Instructions: Chest Pain (DC) Add. Discharge Instructions: Follow-up with your conditioning coach the next 1-2 days. Return to the emergency Department immediately for new or worsening symptoms. JULEE YOUNG DO April 10, 2020 03:24 NAHOMY HANNAH MD April 10, 2020 07:37
[2020-04-10 03:28] LABS: HEMATOCRIT 42 % (35-52); HEMOGLOBIN 13.8 G/DL (11.5-16.0); MEAN CORPUSCULAR HEMOGLOBIN 29 PG (25-34); WHITE BLOOD COUNT 8.2 10^3/uL (4.3-11.0)
[2020-04-10 03:29] LABS: BASOPHILS # (AUTO) 0.1 10^3/uL (0.0-0.1); BASOPHILS % (AUTO) 1 % (0-10); EOSINOPHILS # (AUTO) 0.1 10^3/uL (0.0-0.3); EOSINOPHILS % (AUTO) 2 % (0-10); LYMPHOCYTES # (AUTO) 4.1 X 10^3 (1.0-4.0); LYMPHOCYTES % (AUTO) 50 % (12-44); MEAN CORPUSCULAR HGB CONC 33 G/DL (32-36); MEAN CORPUSCULAR VOLUME 88 FL (80-99); MONOCYTES # (AUTO) 0.6 X 10^3 (0.0-1.0); MONOCYTES % (AUTO) 7 % (0-12); NEUTROPHILS # (AUTO) 3.4 X 10^3 (1.8-7.8); NEUTROPHILS % (AUTO) 41 % (42-75); PLATELET COUNT 337 10^3/uL (130-400); RED CELL DISTRIBUTION WIDTH 15.3 % (10.0-14.5)
[2020-04-10 03:54] LABS: CREATININE SERUM 2.02 MG/DL (0.60-1.30); INR 0.9 (0.8-1.4); POTASSIUM 3.6 MMOL/L (3.6-5.0); PROTHROMBIN TIME PATIENT 12.7 SEC (12.2-14.7)
[2020-04-10 03:55] LABS: ALBUMIN 4.1 GM/DL (3.2-4.5); BILIRUBIN,TOTAL 0.2 MG/DL (0.1-1.0); CALCIUM 9.7 MG/DL (8.5-10.1); TOTAL PROTEIN 6.8 GM/DL (6.4-8.2)
--- NOTE | 2020-04-10 05:12 | NUR ---
PT SLEEPING IN ROOM WITH LIGHTS OFF.
--- NOTE | 2020-04-10 07:12 | NUR ---
Verified the lab has the blood draw for 2nd Troponin.
--- NOTE | 2020-04-10 07:30 | NUR ---
Notified Dr Hannah of Troponin resulted <0.30.
--- NOTE | 2020-04-10 07:45 | NUR ---
Pt's mother notified of need for transportation for pt for discharge.
[2020-04-10 07:47] VITALS: BP 166/112
--- NOTE | 2020-04-10 07:47 | NUR ---
Pt discharged to home at this time appearing slightly anxious/worried about her heart. Dr Hannah reported her 2 Troponins are negative. Pt is to follow up with her post splitter. Return to ER for any further problems or concerns.
--- NOTE | 2020-04-10 07:59 | Diagnostic Imaging Report ---
INDICATION: Chest pain COMPARISON STUDY: Chest from 2 days ago. FINDINGS: Frontal view of the chest demonstrates a cardiac pacer remaining in place. Heart size and vascularity are normal. No pleural effusion or pneumothorax is present. IMPRESSION: There are no acute findings. Dictated by: Dictated on workstation # [id number]
== END 2020-04-10 07:47 | disposition home or self-care (01) ==
LOC: EDUNIT# 03:03 → ER FS 03:04
DX: R07.2 Precordial pain (principal); I10 Essential (primary) hypertension; Z87.820 Personal history of traumatic brain injury; Z88.8 Allergy status to other drugs, medicaments and biological substances; Z79.01 Long term (current) use of anticoagulants; Z79.52 Long term (current) use of systemic steroids; Z95.810 Presence of automatic (implantable) cardiac defibrillator
CPT/HCPCS: 36415; 71045; 80053; 83690; 83880; 84484; 85025; 85379; 85610; 85730; 93005; 93041

== ENCOUNTER → 2020-04-24 | Outpatient (CLI) | payer MEDICAID | LOC: CARD 11:29 | PROVIDERS: ATTEND Internal Medicine Cardiovascular Disease | DX: R00.1 Bradycardia, unspecified (principal); I08.1 Rheumatic disorders of both mitral and tricuspid valves; I10 Essential (primary) hypertension | CPT/HCPCS: 93306 ==

== ENCOUNTER 2020-05-11 12:16 | Emergency (ER) | payer MEDICARE, MEDICAID ==
[2020-05-11 12:22] VITALS: BP 144/98
--- OUTSIDE RECORDS SUMMARY | 2020-05-11 12:27 | XMS REPORT | Continuity of Care Document ---
Author Organization Unknown Address Unknown Phone Unavailable Allergies Active Description Code Type Severity Reaction Onset Reported/Identified Relationship to Patient Clinical Status Yes bacl bacl Moderate N/A 03/21/[address]IA [address] [id number] Dr ug Allergy Severe N/A 05/22/2019 Yes ARB-Angiotensin Receptor Antagonist [id number] Drug Allergy Severe N/A 05/22/2019 Yes baclofen [id number] Drug Allergy Unknown N/A 05/22/2019 Yes phenazopyridine [id number] D rug Allergy Unknown N/A 05/22/2019 Medications There is no data. Problems Date Dx Coded Attending Type Code Diagnosis Diagnosed By 03/26/2015 LISSET DIETRICH MD E Ot 285.9 ANEMIA NOS 03/26/2015 DOTTY DIETRICH MDIC E Ot 300.0 0 ANXIETY STATE NOS 03/26/2015 DOTTY DIETRICH MDIC E Ot 310.8 9 OTH SPEC NONPSYCHOTIC MENTAL DISORDERS F 03/26/2015 LISSET DIETRICH MD E Ot 348.1 ANOXIC BRAIN DAMAGE 03/26/2015 LISSET DIETRICH MD E Ot 348.3 1 METABOLIC ENCEPHALOPATHY 03/26/2015 KAUR MAZARIEGOS LISSET E Ot 424.9 0 ENDOCARDITIS NOS 03/26/2015 DOTTY DIETRICH MDIC E Ot 425.4 PRIM CARDIOMYOPATHY NEC 03/26/2015 KAUR MAZARIEGOS LISSET E Ot 428.0 CONGESTIVE HEART FAILURE NOS 03/26/2015 DOTTY DIETRICH MDIC E Ot 429.8 9 ILL-DEFINED HRT DIS NEC 03/26/2015 KAUR MAZARIEGOS LISSET E Ot 530.8 1 ESOPHAGEAL REFLUX 03/26/2015 LISSET DIETRICH MD E Ot 781.2 ABNORMALITY OF GAIT 03/26/2015 LISSET DIETRICH MD E Ot 787.2 0 DYSPHAGIA, UNSPECIFIED 03/26/2015 KAUR MAZARIEGOS LISSET E Ot V57.8 9 REHABILITATION PROC NEC 03/26/2015 LISSET DIETRICH MD E Ot V58.6 1 ANTICOAGULANTS,LT,CURRENT USE 03/26/2015 KAUR MAZARIEGOS LISSET E Ot 285.9 03/26/2015 DIETRICH MD, LISSET E Ot 300.0 0 03/26/2015 KAUR [...] KAUR MAZARIEGOS, LISSET E Ot 425.4 03/27/2015 DIETRICH MD, LISSET E Ot 429.8 9 03/27/2015 KAUR [...] KAUR MAZARIEGOS, LISSET E Ot V58.6 1 07/24/2015 FELECIA FOTRUNE MD Ot 348. 1 ANOXIC BRAIN DAMAGE [...] TONG MAZARIEGOS, FELECIA Diaz Ot V58. 69 [facility],,CURRENT USE 07/25/2015 NERISSA LAURA, BLANCO Mohan Ot 401.9 07/25/2015 NERISSA LAURA, BLANCO Mohan Ot 425.4 07/25/2015 NERISSA LAURA, BLANCO Mohan Ot 427.5 07/25/2015 BLANCO BERMAN Ot 428.0 07/29/2015 GELLENDER DO, APRIL [place] Ot 296.80 07/29/2015 GELLENDER DO, APRIL [place] Ot 300.00 07/29/2015 GELLENDER DO, APRIL [place] [...] APRIL A Ot V12.53 07/29/2015 GELLENDER DO, APIRL Guthrie Ot V45.02 07/29/2015 GELLENDER DO, APRIL [...] GELLENDER DO, APRIL Guthrie Ot V45.02 07/29/2015 NUHADER , APRIL Guthrie Ot V58.61 08/09/2015 KRISTA [...] FELECIA FORTUNE MD Ot 397. 0 03/03/2016 FELECIA FORTUNE MD Ot 401. 9 03/03/2016 FELECIA FORTUNE MD Ot 425. 4 03/03/2016 FELECIA FORTUNE MD Ot 428. 0 03/17/2016 NERISSA LAURA BLANCO K Ot G93.1 ANOXIC BRAIN DAMAGE, NOT ELSEWHERE CLASS 03/17/2016 NERISSA LAURA BLANCO K Ot I10 ESSENTIAL (PRIMARY) HYPERTENSION 03/17/2016 NERISSA LAURA BLANCO K Ot I50.1 LEFT VENTRICULAR FAILURE 03/17/2016 NERISSA LAURA BLANCO Kimberlee Ot R09.2 RESPIRATORY ARREST 01/12/2018 NERISSA LAURA [...] INITIAL ENCOUNTER 08/05/2018 NIK CELIS Ot 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 08/05/2018 PEDRO CELISIS Ot Z79.51 [employer] (CURRENT) USE OF INHALED STERO 08/05/2018 PEDRO CELISIS Ot Z87.01 PERSONAL HISTORY OF PNEUMONIA (RECURRENT 08/05/2018 NIK CELIS Ot Z87.891 PERSONAL HISTORY OF NICOTINE DEPENDENCE 08/05/2018 NIK CELIS Ot Z88.8 ALLERGY STATUS TO [facility] 08/05/2018 PEDRO CELISIS Ot Z93.0 [...] OF ANTICOAGULANT 08/08/2018 PEDRO CELISIS Ot Z79.51 SKILLED NURSING (CURRENT) USE OF INHALED STERO 08/08/2018 PEDRO [...] 10/24/2018 FELECIA FORTUNE MD Ot Z79. 01 SKILLED NURSING (CURRENT) USE OF ANTICOAGULANT 11/01/2018 [...] HEADACHE 11/01/2018 RALPH LÓPEZ MD, Ot 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 11/01/2018 RALPH LÓPEZ MD Ot Z79.51 [employer] (CURRENT) USE OF INHALED STERO 11/01/2018 RALPH [...] HEADACHE 11/03/2018 RALPH LÓPEZ MD, Ot 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 11/03/2018 RALPH LÓPEZ MD, Ot Z79.51 [employer] (CURRENT) USE OF INHALED STERO 11/03/2018 RALPH [...] ANTICOAGULANT 11/09/2018 RALPH LÓPEZ MD Ot Z79.51 [employer] (CURRENT) USE OF INHALED STERO 11/09/2018 RALPH [...] Ot Z98.890 OTHER SPECIFIED POSTPROCEDURAL STATES 01/01/2019 DANIELKEVPEDROIS Ot F31.9 BIPOLAR DISORDER, UNSPECIFIED 01/01/2019 DANIELNIK ANGULO Ot F41.9 ANXIETY DISORDER, UNSPECIFIED 01/01/2019 PEDRO CELISIS Ot I42.9 CARDIOMYOPATHY, UNSPECIFIED 01/01/2019 LALITAPEDROIS Ot J40 BRONCHITIS, NOT SPECIFIED ACUTE OR CH 01/01/2019 NIK CELIS Ot K21.9 GASTRO-ESOPHAGEAL REFLUX DISEASE WITHOUT 01/01/2019 NIK CELIS Ot R05 COUGH 01/01/2019 NIK CELIS Ot Z79.01 SKILLED NURSING (CURRENT) USE OF ANTICOAGULANT 01/01/2019 NIK CELIS Ot Z79.51 SKILLED NURSING (CURRENT) USE OF INHALED STERO 01/01/2019 LALITA NIK Ot Z87.01 PERSONAL HISTORY OF PNEUMONIA (RECURRENT 01/01/2019 LALITA NIK Ot Z87.448 PERSONAL HISTORY OF OTHER DISEASES OF UR 01/01/2019 NIK CELIS Ot Z87.820 PERSONAL HISTORY OF TRAUMATIC BRAIN INJU 01/01/2019 NIK CELIS Ot Z87.891 PERSONAL HISTORY OF NICOTINE DEPENDENCE 01/01/2019 NIK CELIS Ot Z88.8 ALLERGY STATUS TO [facility] [facility] 01/01/2019 NIK CELIS Ot Z93.0 [...] 01/05/2019 FELECIA FORTUNE MD Ot Z79. 01 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 01/06/2019 BLANCO BERMAN [...] 01/06/2019 FELECIA FORTUNE MD Ot Z79. 01 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 01/06/2019 FEDE AMARO [...] IN 01/06/2019 FEDE AMARO MD, Ot Z79.01 SKILLED NURSING (CURRENT) USE OF ANTICOAGULANT 01/06/2019 FEDE AMARO MD, Ot Z79.51 [employer] (CURRENT) USE OF INHALED STERO 01/06/2019 FEDE AMARO MD, Ot Z79.52 [employer] (CURRENT) USE OF SYSTEMIC STER 01/06/2019 FEDE [...] AMARO MD, Ot Z88.8 ALLERGY STATUS TO [facility] 01/06/2019 FEDE MAARO MD, Ot Z93.0 TRACHEOSTOMY STATUS 01/06/2019 FEDE [...] OF ANTICOAGULANT 01/07/2019 NIK CELIS Ot Z79.51 SKILLED NURSING (CURRENT) USE OF INHALED STERO 01/07/2019 NIK CELIS Ot Z87.01 PERSONAL HISTORY OF PNEUMONIA (RECURRENT 01/07/2019 PEDRO CELISIS Ot Z87.448 PERSONAL HISTORY OF OTHER DISEASES OF UR 01/07/2019 DANIELNIK ANGULO Ot Z87.820 PERSONAL HISTORY OF TRAUMATIC BRAIN INJU 01/07/2019 DANIELNIK ANGULO Ot Z87.891 PERSONAL HISTORY OF NICOTINE DEPENDENCE 01/07/2019 DANIELNIK ANGULO Ot Z88.8 ALLERGY STATUS TO [facility] 01/07/2019 NIK CELIS Ot Z93.0 [...] IN 01/09/2019 FEDE AMARO MD Ot 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 01/09/2019 FEDE AMARO MD Ot Z79.51 SKILLED NURSING (CURRENT) USE OF INHALED STERO 01/09/2019 FEDE AMARO MD, Ot Z79.52 SKILLED NURSING (CURRENT) USE [...] AMARO MD, Ot Z88.8 ALLERGY STATUS TO [facility] 01/09/2019 FEDE AMARO MD, Ot [...] ELBOW 04/09/2019 DELIO ARIZA DO, Ot 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 04/09/2019 DELIO ARIZA DO, Ot Z79.52 [employer] (CURRENT) USE OF SYSTEMIC STER 04/09/2019 DELIO [...] ARIZA DO Ot Z88.8 ALLERGY STATUS TO [facility] 04/09/2019 DELIO ARIZA DO Ot Z93.0 TRACHEOSTOMY STATUS 04/09/2019 DELIO ARIZA DO Ot Z95.810 PRESENCE OF AUTOMATIC (IMPLANTABLE) CARD 04/09/2019 DELIO ARIZA DO Ot Z98.890 OTHER SPECIFIED POSTPROCEDURAL STATES 04/09/2019 BLANCO BERMAN Ot 401.9 HYPERTENSION NOS 04/09/2019 BLANCO BERMAN Ot 425.4 PRIM CARDIOMYOPATHY NEC 04/09/2019 BLANCO BERMAN Ot 427.5 CARDIAC ARREST 04/09/2019 BLANCO BERMAN Ot 428.0 CONGESTIVE HEART FAILURE NOS 04/09/2019 TONG MAZARIEGOS, FELECIA Diaz Ot 397. 0 TRICUSPID VALVE DISEASE 04/09/2019 FELECIA FORTUNE MD Ot 401. 9 HYPERTENSION NOS 04/09/2019 TONG MAZARIEGOS, FELECIA Diaz Ot 425. 4 PRIM CARDIOMYOPATHY NEC 04/09/2019 [...] HYPERTENSIVE HEART DISEASE WITH HEART FA 04/09/2019 BALNCO BERMAN Ot I50.1 LEFT VENTRICULAR FAILURE, UNSPECIFIED [...] 04/09/2019 FELECIA FORTUNE MD Ot Z79. 01 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 04/12/2019 DELIO ARIZA [...] ELBOW 04/12/2019 DELIO ARIZA DO, Ot 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 04/12/2019 DELIO ARIZA DO, Ot Z79.52 [employer]ER (CURRENT) USE OF SYSTEMIC STER 04/12/2019 DELIO ARIZA DO, Ot Z86.69 PERSONAL HISTORY OF DIS OF THE NERVOUS S 04/12/2019 DELIO ARIZA DO, Ot Z86.79 PERSONAL HISTORY OF OTHER DISEASES OF 04/12/2019 DELIO ARIZA DO, Ot Z87.01 PERSONAL HISTORY OF PNEUMONIA (RECURRENT 04/12/2019 DELIO ARIZA DO, Ot Z87.09 PERSONAL HISTORY OF OTHER DISEASES OF 04/12/2019 DELIO ARIZA DO, Ot Z88.8 ALLERGY STATUS TO [facility] 04/12/2019 DELIO ARIZA DO, Ot Z93.0 TRACHEOSTOMY STATUS 04/12/2019 DELIO ARIZA DO, Ot Z95.810 PRESENCE OF AUTOMATIC (IMPLANTABLE) CARD 04/12/2019 DELIO ARIZA DO, Ot Z98.890 OTHER SPECIFIED POSTPROCEDURAL STATES 04/12/2019 BULMARO MAZARIEGOS, EDISON Mcghee Ot D64.9 ANEMIA, UNSPECIFIED 04/12/2019 EDISON CHAMBERLAIN [...] 04/12/2019 EDISON CHAMBERLAIN MD, Ot Z79.0 1 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 04/12/2019 EDISON CHAMBERLAIN MD, Ot Z79.5 2 [employer]ER (CURRENT) USE OF SYSTEMIC STER 04/12/2019 EDISON [...] 04/16/2019 EDISON CHAMBERLAIN MD, Ot Z79.0 1 SKILLED NURSING (CURRENT) USE OF ANTICOAGULANT 04/16/2019 EDISON CHAMBERLAIN MD, Ot Z79.5 2 [employer]ER (CURRENT) USE OF SYSTEMIC STER 04/16/2019 EDISON [...] OTHER SPECIFIED POSTPROCEDURAL STATES 04/19/2019 LISA MARCELINO [employer]CHANICS HANDYMAN Ot D64 .9 ANEMIA, UNSPECIFIED 04/19/2019 MARCELINOLISA TAI APRN Ot F31 .9 BIPOLAR DISORDER, UNSPECIFIED [...] FATIGUE 04/19/2019 LISA MARCELINO APRN Ot 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 04/19/2019 LISA MARCELINO APRN Ot Z79.52 [employer]ER (CURRENT) USE OF SYSTEMIC STER 04/19/2019 LISA [...] L Ot J42 UNSPECIFIED CHRONIC BRONCHITIS 04/20/2019 IRCHARD DO, VINITA L Ot K21.9 GASTRO-ESOPHAGEAL REFLUX DISEASE WITHOUT 04/20/2019 RICHARD DO, VINITA L Ot M25.4 71 EFFUSION, RIGHT ANKLE 04/20/2019 RICHARD DO, VINITA L Ot Z79.0 1 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 04/20/2019 RICHARD DO, [...] RICHARD DO, VINITA L Ot Z79.0 1 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 04/25/2019 RICHARD DO, VINITA L Ot Z87.0 1 PERSONAL HISTORY OF PNEUMONIA (RECURRENT 04/25/2019 RICHARD DO, VINITA L Ot Z88.8 ALLERGY STATUS TO [facility] DRUG/MEDS/BIOL SUB 04/25/2019 RICHARD DO, VINITA L Ot Z93.0 TRACHEOSTOMY STATUS 04/25/2019 RICHARD DO, VINITA L Ot Z95.8 10 PRESENCE OF AUTOMATIC (IMPLANTABLE) CARD 05/05/2019 LALITA NIK Ot D64.9 ANEMIA, UNSPECIFIED 05/05/2019 BERNOT, NIK Ot F31.9 BIPOLAR DISORDER, UNSPECIFIED 05/05/2019 NIK CELIS Ot F41.9 ANXIETY DISORDER, UNSPECIFIED 05/05/2019 NIK CELIS Ot I25.2 OLD MYOCARDIAL INFARCTION 05/05/2019 NIK CELIS Ot I42.9 CARDIOMYOPATHY, UNSPECIFIED 05/05/2019 NIK CELIS Ot K21.9 GASTRO-ESOPHAGEAL REFLUX DISEASE WITHOUT 05/05/2019 NIK CELIS Ot T82.198A [facility] COMPL OF OTHER CARDIAC ELECTRONIC D 05/05/2019 NIK CELIS Ot Z79.01 SKILLED NURSING (CURRENT) USE OF ANTICOAGULANT 05/05/2019 PEDRO CELISIS Ot Z79.52 SKILLED NURSING (CURRENT) USE OF SYSTEMIC STER 05/05/2019 NIK CELIS Ot Z86.79 PERSONAL HISTORY OF OTHER DISEASES OF TH 05/05/2019 NIK CELIS Ot Z87.01 PERSONAL HISTORY OF PNEUMONIA (RECURRENT 05/05/2019 NIK CELIS Ot Z88.8 ALLERGY STATUS TO [facility] 05/05/2019 NIK CELIS Ot Z93.0 TRACHEOSTOMY STATUS 05/05/2019 NIK CELIS Ot Z95.810 PRESENCE OF AUTOMATIC [...] MD Ot I42. 9 CARDIOMYOPATHY, UNSPECIFIED 05/06/2019 FELECIA FORTUNE MD Ot R00. 1 BRADYCARDIA, UNSPECIFIED 05/06/2019 FELECIA FORTUNE MD Ot Z79. 01 SKILLED NURSING (CURRENT) USE OF ANTICOAGULANT 05/09/2019 PEDRO CELISIS Ot D64.9 ANEMIA, UNSPECIFIED 05/09/2019 BERNKEV, NIK Ot F31.9 BIPOLAR DISORDER, UNSPECIFIED 05/09/2019 BERNPEDRO ANGULOIS Ot F41.9 ANXIETY DISORDER, UNSPECIFIED 05/09/2019 BERNPEDRO ANGULOIS Ot I25.2 OLD MYOCARDIAL INFARCTION 05/09/2019 BERNKEV NIK Ot I42.9 CARDIOMYOPATHY, UNSPECIFIED 05/09/2019 BERNKEV, NIK Ot K21.9 GASTRO-ESOPHAGEAL REFLUX DISEASE WITHOUT 05/09/2019 PEDRO CELISIS Ot T82.198A [facility] COMPL OF OTHER CARDIAC ELECTRONIC D 05/09/2019 PEDRO CELISIS Ot Z79.01 SKILLED NURSING (CURRENT) USE OF ANTICOAGULANT 05/09/2019 BERNKEV, NIK Ot Z79.52 [employer]ER (CURRENT) USE OF SYSTEMIC STER 05/09/2019 PEDRO CELISIS Ot Z86.79 PERSONAL HISTORY OF OTHER DISEASES OF TH 05/09/2019 NIK CELIS Ot Z87.01 PERSONAL HISTORY OF PNEUMONIA (RECURRENT 05/09/2019 NIK CELIS Ot Z88.8 ALLERGY STATUS TO [facility] DRUG/MEDS/BIOL SUB 05/09/2019 NKI CELIS Ot Z93.0 TRACHEOSTOMY STATUS 05/09/2019 PEDRO [...] 05/10/2019 ALEX BARRERA MD Ot Z79.0 1 SKILLED NURSING (CURRENT) USE OF ANTICOAGULANT 05/10/2019 ALEX BARRERA MD Ot Z79.8 99 OTHER SKILLED NURSING (CURRENT) DRUG THERAPY 05/10/2019 ALEX BARRERA MD [...] 05/10/2019 ALEX BARRERA MD Ot Z79.0 1 SKILLED NURSING (CURRENT) USE OF ANTICOAGULANT 05/10/2019 ALEX BARRERA MD Ot Z79.8 99 OTHER [employer]OT[employer]ER (CURRENT) DRUG THERAPY 05/10/2019 ALEX BARRERA MD Ot Z86.7 18 PERSONAL HISTORY OF OTHER VENOUS THROMBO 05/10/2019 ALEX BARRERA MD Ot Z86.7 4 PERSONAL HISTORY OF SUDDEN CARDIAC ARRES 05/10/2019 ALEX BARRERA MD Ot Z87.8 20 PERSONAL HISTORY OF TRAUMATIC BRAIN INJU 05/10/2019 ALEX BARRERA MD Ot Z95.8 10 PRESENCE OF AUTOMATIC (IMPLANTABLE) CARD 05/11/2019 PEDRO CELISIS Ot D64.9 ANEMIA, UNSPECIFIED 05/11/2019 PEDRO CELISIS Ot F31.9 BIPOLAR DISORDER, UNSPECIFIED 05/11/2019 PEDRO CELISIS Ot F41.9 ANXIETY DISORDER, UNSPECIFIED 05/11/2019 PEDRO CELISIS Ot I25.2 OLD MYOCARDIAL INFARCTION 05/11/2019 PEDRO CELISIS Ot I42.9 CARDIOMYOPATHY, UNSPECIFIED 05/11/2019 PEDRO CELISIS Ot K21.9 GASTRO-ESOPHAGEAL REFLUX DISEASE WITHOUT 05/11/2019 PEDRO CELISIS Ot T82.198A [facility] COMPL OF OTHER CARDIAC ELECTRONIC D 05/11/2019 PEDRO CELISIS Ot Z79.01 SKILLED NURSING (CURRENT) USE OF ANTICOAGULANT 05/11/2019 PEDRO CELISIS Ot Z79.52 [employer]ER (CURRENT) USE OF SYSTEMIC STER 05/11/2019 PEDRO CELISIS Ot Z86.79 PERSONAL HISTORY OF OTHER DISEASES OF TH 05/11/2019 PEDRO CELISIS Ot Z87.01 PERSONAL HISTORY OF PNEUMONIA (RECURRENT 05/11/2019 PEDRO CELISIS Ot Z88.8 ALLERGY STATUS TO [facility] 05/11/2019 PEDRO CELISIS Ot Z93.0 [...] 05/11/2019 ANTONIO CALLEJAS MD Ot Z79. 01 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 05/11/2019 ANTONIO CALLEJAS MD Ot Z86. 79 PERSONAL HISTORY OF OTHER DISEASES OF TH 05/11/2019 ANTONIO CALLEJAS MD Ot Z87. 01 PERSONAL HISTORY OF PNEUMONIA (RECURRENT 05/11/2019 ANTONIO CALLEJAS MD Ot Z87. 09 PERSONAL HISTORY OF OTHER DISEASES OF TH 05/11/2019 ANTONIO CALLEJAS MD Ot Z88. 8 ALLERGY STATUS TO [facility] 05/11/2019 ANTONIO CALLEJAS MD Ot [...] 05/14/2019 ANTONIO CALLEJAS MD Ot Z79. 01 SKILLED NURSING (CURRENT) USE OF ANTICOAGULANT 05/14/2019 ANTONIO CALLEJAS MD Ot Z86. 79 PERSONAL HISTORY OF OTHER DISEASES OF TH 05/14/2019 ANTONIO CALLEJAS MD, Ot Z87. 01 PERSONAL HISTORY OF PNEUMONIA (RECURRENT 05/14/2019 ANTONIO CALLEJAS MD, Ot Z87. 09 PERSONAL HISTORY OF OTHER [...] TO [facility] DRUG/MEDS/BIOL SUB 05/22/2019 DELIO ARIZA DO, Ot Z93.0 TRACHEOSTOMY STATUS 05/22/2019 DELIO ARIZA DO, Ot Z95.810 PRESENCE OF AUTOMATIC (IMPLANTABLE) CARD 05/24/2019 DELIO ARIZA DO, Ot F31.9 BIPOLAR DISORDER, UNSPECIFIED 05/24/2019 DELIO ARIZA DO, Ot F41.9 ANXIETY DISORDER, UNSPECIFIED 05/24/2019 DELIO ARIZA DO, Ot I1 0 ESSENTIAL (PRIMARY) HYPERTENSION 05/24/2019 DELIO ARIZA DO Ot J4 2 UNSPECIFIED CHRONIC BRONCHITIS 05/24/2019 DELIO ARIZA DO Ot K21.9 GASTRO-ESOPHAGEAL REFLUX DISEASE WITHOUT 05/24/2019 DELIO ARIZA DO Ot M94.0 CHONDROCOSTAL JUNCTION SYNDROME [TIETZE] 05/24/2019 DELIO ARIZA DO Ot R07.9 CHEST PAIN, UNSPECIFIED 05/24/2019 DELIO ARIZA DO Ot Z87.01 PERSONAL HISTORY OF PNEUMONIA (RECURRENT 05/24/2019 DELIO ARIZA DO Ot Z88.8 ALLERGY STATUS TO [facility] DRUG/MEDS/BIOL SUB 05/24/2019 DELIO ARIZA DO Ot Z93.0 TRACHEOSTOMY STATUS 05/24/2019 DELIO ARIZA DO Ot Z95.810 PRESENCE OF AUTOMATIC (IMPLANTABLE) CARD 06/04/2019 MARIBEL MAZARIEGOS, RALPH Mcelroy Ot F31.9 BIPOLAR DISORDER, UNSPECIFIED 06/04/2019 RALPH LÓPEZ MD Ot F41.9 ANXIETY DISORDER, UNSPECIFIED 06/04/2019 RALPH LÓPEZ MD Ot G47.00 INSOMNIA, UNSPECIFIED 06/04/2019 RALPH LÓPEZ MD Ot I10 ESSENTIAL (PRIMARY) HYPERTENSION 06/04/2019 RALPH LÓPEZ MD Ot I42.9 CARDIOMYOPATHY, UNSPECIFIED 06/04/2019 RALPH LÓPEZ MD Ot J42 UNSPECIFIED CHRONIC BRONCHITIS 06/04/2019 RALPH LÓPEZ MD Ot K21.9 GASTRO-ESOPHAGEAL REFLUX DISEASE WITHOUT 06/04/2019 MARIBEL MAZARIEGOS, RALPH Mcelroy Ot R07.89 OTHER CHEST PAIN 06/04/2019 RALPH LÓPEZ MD Ot Z87.01 PERSONAL HISTORY OF PNEUMONIA (RECURRENT 06/04/2019 MARIBEL MAZARIEGOS, RALPH Mcelroy Ot Z88.5 ALLERGY STATUS TO NARCOTIC AGENT STATUS 06/04/2019 RALPH LÓPEZ MD Ot Z88.8 ALLERGY STATUS TO OTH DRUG/MEDS/BIOL SUB 06/04/2019 RALPH LÓPEZ MD Ot Z93.0 TRACHEOSTOMY STATUS 06/04/2019 RALPH LÓPEZ MD Ot Z95.810 PRESENCE OF [...] Z87.01 PERSONAL HISTORY OF PNEUMONIA (RECURRENT 06/11/2019 RALPH LÓPEZ MD Ot Z88.5 ALLERGY STATUS TO NARCOTIC AGENT STATUS 06/11/2019 RALPH LÓPEZ MD Ot Z88.8 ALLERGY STATUS TO OTH DRUG/MEDS/BIOL SUB 06/11/2019 RALPH LÓPEZ MD Ot Z93.0 TRACHEOSTOMY STATUS 06/11/2019 RALPH LÓPEZ MD Ot Z95.810 PRESENCE OF AUTOMATIC (IMPLANTABLE) CARD 07/12/2019 BLAYNE BERRY [facility] Ot M25.462 EFFUSION, LEFT KNEE 07/28/2019 FEDE AMARO MD Ot F31.9 BIPOLAR DISORDER, UNSPECIFIED 07/28/2019 FEDE AMARO MD Ot F41.9 ANXIETY DISORDER, UNSPECIFIED 07/28/2019 FEDE AMARO MD Ot I10 ESSENTIAL (PRIMARY) HYPERTENSION 07/28/2019 EFDE AMARO MD Ot I42.9 CARDIOMYOPATHY, UNSPECIFIED 07/28/2019 FEDE AMARO MD Ot J42 UNSPECIFIED CHRONIC BRONCHITIS 07/28/2019 FEDE AMARO MD Ot K21.9 GASTRO-ESOPHAGEAL REFLUX DISEASE WITHOUT 07/28/2019 FEDE AMARO MD, Ot R51 HEADACHE 07/28/2019 FEDE AMARO MD Ot Z86.74 PERSONAL HISTORY OF SUDDEN CARDIAC ARRES 07/28/2019 FEDE AMARO MD Ot Z88.5 ALLERGY STATUS [...] I51.3 INTRACARDIAC THROMBOSIS, NOT ELSEWHERE C 07/28/2019 TONG MAZARIEGOS, FELECIA Diaz Ot I08. 3 COMB RHEUMATIC DISORD OF MITRAL, AORTIC 07/28/2019 FELECIA FORTUNE MD Ot I10 ESSENTIAL (PRIMARY) HYPERTENSION 07/28/2019 FELECIA FORTUNE MD Ot I25. 2 OLD MYOCARDIAL INFARCTION 07/28/2019 FELECIA FORTUNE MD Ot I42. 9 CARDIOMYOPATHY, UNSPECIFIED 07/28/2019 FELECIA FORTUNE MD Ot R00. 1 BRADYCARDIA, UNSPECIFIED 07/28/2019 FELECIA FORTUNE MD Ot Z79. 01 RU[employer] 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 07/28/2019 KING BLAYNE [...] GASTRO-ESOPHAGEAL REFLUX DISEASE WITHOUT 07/29/2019 ORESTES VELASCO MD, Ot S90.861A INSECT BITE (NONVENOMOUS), RIGHT FOOT, I 07/29/2019 ORESTES VELASCO MD Ot W57.XXXA BIT/STUNG BY NONVENOM INSECT OTH NONVE 07/29/2019 ORESTES VELASCO MD, Ot Z87. 01 PERSONAL HISTORY OF PNEUMONIA (RECURRENT 07/29/2019 KRISTA MAZARIEGOS, ORESTES Guthrie Ot Z88. 8 ALLERGY STATUS TO [facility] [facility]BIOL SUB 07/29/2019 ORESTES VELASCO MD, Ot [...] 9 GASTRO-ESOPHAGEAL REFLUX DISEASE WITHOUT 08/17/2019 ANTONIO CLALEJAS MD Ot M17. 12 UNILATERAL PRIMARY OSTEOARTHRITIS, [...] F31.9 BIPOLAR DISORDER, UNSPECIFIED 08/28/2019 MOIZ MARLEY DO, Ot F41.9 ANXIETY DISORDER, UNSPECIFIED 08/28/2019 MOIZ MARLEY DO Ot I10 ESSENTIAL (PRIMARY) HYPERTENSION 08/28/2019 MOIZ MARLEY DO Ot K21.9 GASTRO-ESOPHAGEAL REFLUX DISEASE WITHOUT 08/28/2019 MOIZ MARLEY DO Ot N39.0 URINARY TRACT INFECTION, SITE NOT SPECIF 08/28/2019 MOIZ MARLEY DO Ot R10.30 LOWER ABDOMINAL PAIN, UNSPECIFIED 08/28/2019 MOIZ MARLEY DO Ot 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 08/28/2019 MOIZ MARLEY DO Ot Z87.820 PERSONAL HISTORY OF TRAUMATIC BRAIN INJU 08/28/2019 MOIZ MARLEY DO Ot Z88.8 ALLERGY STATUS TO [facility] DRUG/MEDS/BIOL SUB 08/28/2019 MOIZ MARLEY DO Ot Z93.0 TRACHEOSTOMY STATUS 08/28/2019 MOIZ MARLEY DO Ot Z95.810 PRESENCE OF AUTOMATIC (IMPLANTABLE) CARD 08/29/2019 BROWN NGUYEN APRN Ot M25.571 PAIN IN RIGHT ANKLE AND JOINTS OF RIGHT 08/30/2019 MARLYE DO, MOIZ Ot F31.9 BIPOLAR DISORDER, UNSPECIFIED 08/30/2019 MARLEY DO, MOIZ Ot F41.9 ANXIETY DISORDER, UNSPECIFIED 08/30/2019 MARLEY DO, MOIZ Ot I10 ESSENTIAL (PRIMARY) HYPERTENSION 08/30/2019 MARLEY DO, MOIZ Ot K21.9 GASTRO-ESOPHAGEAL REFLUX DISEASE WITHOUT 08/30/2019 MARLEY DO, MOIZ Ot N39.0 URINARY TRACT INFECTION, SITE NOT SPECIF 08/30/2019 MARLEY DO, MOIZ Ot R10.30 LOWER ABDOMINAL PAIN, UNSPECIFIED 08/30/2019 MARLEY DO, MOIZ Ot 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 08/30/2019 MARLEY DO, [...] I10 ESSENTIAL (PRIMARY) HYPERTENSION 08/31/2019 EDISON CHAMBERLAIN MD, Ot K21.9 GASTRO-ESOPHAGEAL REFLUX DISEASE WITHOUT 08/31/2019 EDISON CHAMBERLAIN MD Ot R07.9 CHEST PAIN, UNSPECIFIED 08/31/2019 EDISON CHAMBERLAIN MD Ot Z79.0 1 SKILLED NURSING (CURRENT) USE OF ANTICOAGULANT 08/31/2019 EDISON CHAMBERLAIN [...] I10 ESSENTIAL (PRIMARY) HYPERTENSION 09/05/2019 EDISON CHAMBERLAIN MD Ot K21.9 GASTRO-ESOPHAGEAL REFLUX DISEASE WITHOUT 09/05/2019 EDISON CHAMBERLAIN MD Ot R07.9 CHEST PAIN, UNSPECIFIED 09/05/2019 EDISON CHAMBERLAIN MD, Ot Z79.0 1 SKILLED NURSING (CURRENT) USE OF ANTICOAGULANT 09/05/2019 EDISON CHAMBERLAIN MD, Ot Z87.0 9 PERSONAL HISTORY OF OTHER DISEASES OF TH 09/05/2019 EDISON CHAMBERLAIN MD, Ot Z87.8 20 PERSONAL HISTORY OF TRAUMATIC BRAIN INJU 09/05/2019 EDISON CHAMBERLAIN MD, Ot Z88.8 ALLERGY STATUS TO [facility]/BIOL SUB 09/05/2019 EDISON CHAMBERLAIN MD, Ot Z93.0 TRACHEOSTOMY STATUS 09/05/2019 EDISON CHAMBERALIN MD, Ot Z95.8 10 PRESENCE OF AUTOMATIC (IMPLANTABLE) CARD 09/12/2019 PATRICK BROWN [employer] Ot M25.571 PAIN IN RIGHT ANKLE AND [...] 10/23/2019 HECTOR LADD DO Ot Z79. 01 SKILLED NURSING (CURRENT) USE OF ANTICOAGULANT 10/23/2019 HECTOR LADD DO Ot Z79. 52 [employer]ER (CURRENT) USE OF SYSTEMIC STER 10/23/2019 HECTOR [...] Ot F31. 9 BIPOLAR DISORDER, UNSPECIFIED 11/07/2019 ANTONIO CALLEJAS MD Ot F41. 9 ANXIETY DISORDER, UNSPECIFIED 11/07/2019 ANTONIO CALLEJAS MD Ot I10 ESSENTIAL (PRIMARY) HYPERTENSION 11/07/2019 ANTONIO CALLEJAS MD Ot I42. 9 CARDIOMYOPATHY, UNSPECIFIED 11/07/2019 ANTONIO CALLEJAS MD J Ot J42 UNSPECIFIED CHRONIC BRONCHITIS 11/07/2019 ANTONIO [...] 11/29/2019 ORESTES VELASCO MD Ot Z79. 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 9 HYPERTENSION NOS 11/29/2019 FELECIA FORTUNE MD Ot 425. 4 PRIM CARDIOMYOPATHY NEC 11/29/2019 FELECIA FORTUNE MD Ot 428. 0 CONGESTIVE HEART FAILURE NOS 11/29/2019 [facility], BLANCO Mohan Ot G93.1 ANOXIC BRAIN DAMAGE, NOT ELSEWHERE CLASS 11/29/2019 [facility], BLANCO K Ot I10 ESSENTIAL (PRIMARY) HYPERTENSION 11/29/2019 [facility], BLANCO K Ot I50.1 LEFT VENTRICULAR FAILURE 11/29/2019 [facility], BLANCO K Ot R09.2 RESPIRATORY ARREST 11/29/2019 [facility], BLANCO K Ot G93.1 ANOXIC BRAIN DAMAGE, NOT ELSEWHERE CLASS 11/29/2019 [facility], BLANCO K Ot I11.0 HYPERTENSIVE HEART DISEASE WITH HEART FA 11/29/2019 [facility], BLANCO Mohan Ot I50.1 LEFT VENTRICULAR FAILURE, UNSPECIFIED 11/29/2019 [facility], BLACNO Mohan Ot I51.3 INTRACARDIAC THROMBOSIS, NOT ELSEWHERE [...] 11/29/2019 FELECIA FORTUNE MD Ot Z79. 01 SKILLED NURSING (CURRENT) USE OF ANTICOAGULANT 11/29/2019 BLAYNE BERRY Ot M25.462 EFFUSION, LEFT KNEE 11/29/2019 BROWN NGUYEN APRN Ot M25.571 PAIN IN RIGHT ANKLE AND JOINTS OF RIGHT 12/04/2019 ORESTES VELASCO MD Ot D64. 9 ANEMIA, UNSPECIFIED 12/04/2019 ORESTES VELASCO MD Ot F31. 9 BIPOLAR DISORDER, UNSPECIFIED 12/04/2019 ORESTES VELASCO MD Ot F41. 9 ANXIETY DISORDER, UNSPECIFIED 12/04/2019 KRISTA MAZARIEGOS, ORESTES Guthrie Ot I10 ESSENTIAL (PRIMARY) HYPERTENSION 12/04/2019 KRISTA MAZARIEGOS, ORESTES Guthrie Ot K21. 9 GASTRO-ESOPHAGEAL REFLUX DISEASE WITHOUT 12/04/2019 KRISTA MAZARIEGOS, ORESTES A Ot R10. 31 RIGHT LOWER QUADRANT PAIN 12/04/2019 KRISTA MAZARIEGOS, ORESTES A Ot R19. 7 DIARRHEA, UNSPECIFIED 12/04/2019 KRISTA MAZARIEGOS, ORESTES A Ot Z79. 01 SKILLED NURSING (CURRENT) USE OF ANTICOAGULANT 12/04/2019 KRISTA MAZARIEGOS, ORESTES A Ot Z87.820 PERSONAL HISTORY OF TRAUMATIC [...] 12/27/2019 EDISON CHAMBERLAIN MD Ot Z79.0 1 SKILLED NURSING (CURRENT) USE OF ANTICOAGULANT 12/27/2019 EDISON CHAMBERLAIN MD Ot Z79.5 2 SKILLED NURSING (CURRENT) USE OF SYSTEMIC STER 12/27/2019 EDISON CHAMBERLAIN MD Ot Z88.8 ALLERGY STATUS TO OTH DRUG/MEDS/BIOL SUB 12/27/2019 EDISON CHAMBERLAIN MD Ot Z93.0 TRACHEOSTOMY STATUS 12/27/2019 EDISON CHAMBERLAIN MD Ot Z95.8 10 PRESENCE OF AUTOMATIC (IMPLANTABLE) CARD 02/05/2020 HECTOR LADD DO Ot I10 ESSENTIAL (PRIMARY) HYPERTENSION 02/05/2020 HECTOR LADD DO Ot R51 HEADACHE 02/05/2020 HECTOR LADD DO Ot Z79. 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 52 RUGBY LEAGUE FOOTBALLER (CURRENT) USE OF SYSTEMIC STER 02/05/2020 JULEE DO, HECTOR B Ot Z88. 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 02/15/2020 ROVENSTINE DO, ALPESH Wright Ot I42.9 CARDIOMYOPATHY, UNSPECIFIED 02/15/2020 ROVENSTINE DO, ALPESH Wright Ot J42 UNSPECIFIED CHRONIC BRONCHITIS 02/15/2020 ROVENSTINE DO, ALPESH Wright Ot T82.198A [facility] COMPL OF OTHER CARDIAC ELECTRONIC D 02/15/2020 ROVENSTINE DO, ALPESH Wright Ot 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 02/15/2020 ROVENSTINE DO, ALPESH Wright Ot Z86.74 PERSONAL HISTORY OF SUDDEN CARDIAC ARRES 02/15/2020 ROVENSTINE DO, ALPESH Wright Ot Z88.5 ALLERGY STATUS TO NARCOTIC AGENT STATUS 02/15/2020 ROVENSTINE DO, ALPESH Wright Ot Z88.8 ALLERGY STATUS TO OTH DRUG/MEDS/BIOL SUB 02/15/2020 ROVENSTINE DO, ALPESH Wright Ot Z93.0 TRACHEOSTOMY STATUS 02/20/2020 ROVENSTINE DO, ALPESH Wright Ot F31.9 BIPOLAR DISORDER, UNSPECIFIED 02/20/2020 ROVENSTINE DO, ALPESH Wright Ot F41.9 ANXIETY DISORDER, UNSPECIFIED 02/20/2020 ROVENSTINE DO, ALPESH Wright Ot I11.9 HYPERTENSIVE HEART DISEASE WITHOUT HEART 02/20/2020 ROVENSTINE DO, ALPESH Wright Ot I42.9 CARDIOMYOPATHY, UNSPECIFIED 02/20/2020 ROVENSTINE DO, ALPESH Wright Ot J42 UNSPECIFIED CHRONIC BRONCHITIS 02/20/2020 ROVENSTINE DO, ALPESH Wright Ot T82.198A [facility] COMPL OF OTHER CARDIAC ELECTRONIC D 02/20/2020 ROVENSTINE DO, ALPESH Wright Ot Z79.01 SKILLED NURSING (CURRENT) USE OF ANTICOAGULANT 02/20/2020 ROVENSTINE DO, ALPESH Wright Ot Z86.74 PERSONAL HISTORY OF SUDDEN CARDIAC ARRES 02/20/2020 ROVENSTINE DO, ALPESH Wright Ot Z88.5 ALLERGY STATUS TO NARCOTIC AGENT STATUS 02/20/2020 ROVENSTINE DO, ALPESH Wright Ot Z88.8 ALLERGY STATUS TO OTH DRUG/MEDS/BIOL SUB 02/20/2020 ROVENSTINE DO, ALPESH Wright Ot Z93.0 TRACHEOSTOMY STATUS 02/22/2020 [facility], OLLIE Zimmerman Ot D68.59 OTHER PRIMARY THROMBOPHILIA 02/22/2020 [facility], OLLIE Zimmerman Ot E66.01 MORBID (SEVERE) OBESITY DUE TO EXCESS CA 02/22/2020 [facility], OLLIE Zimmerman Ot I49.9 CARDIAC ARRHYTHMIA, UNSPECIFIED 02/22/2020 [facility], OLLIE Zimmerman Ot K02.9 DENTAL CARIES, UNSPECIFIED 02/22/2020 [facility], OLLIE Zimmerman Ot N83.01 FOLLICULAR CYST OF RIGHT OVARY 02/22/2020 [facility], OLLIE Zimmerman Ot R10.2 PELVIC AND PERINEAL PAIN 02/22/2020 [facility], OLLIE Zimmerman Ot R10.31 RIGHT LOWER QUADRANT PAIN 02/22/2020 [facility], OLLIE Zimmerman Ot Z68.41 BODY MASS INDEX (BMI) 40.0-44.9, ADULT 02/22/2020 [facility], OLLIE Zimmerman Ot 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 LEAGUE 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 02/22/2020 [facility], OLLIE Zimmerman Ot Z95.0 PRESENCE OF CARDIAC PACEMAKER 02/26/2020 [facility], OLLIE Zimmerman Ot D68.59 OTHER PRIMARY THROMBOPHILIA 02/26/2020 [facility], OLLIE Zimmerman Ot E66.01 MORBID (SEVERE) OBESITY DUE TO EXCESS CA 02/26/2020 [facility] DO, OLLIE Zimmerman Ot I49.9 CARDIAC ARRHYTHMIA, UNSPECIFIED 02/26/2020 [facility], OLLIE Zimmerman Ot K02.9 DENTAL CARIES, UNSPECIFIED 02/26/2020 [facility], OLLIE Zimmerman Ot N83.01 FOLLICULAR CYST OF RIGHT OVARY 02/26/2020 [facility], OLLIE Zimmerman Ot R10.2 PELVIC AND PERINEAL PAIN 02/26/2020 [facility], LOLIE Zimmerman Ot R10.31 RIGHT LOWER QUADRANT PAIN 02/26/2020 NINA TINSLEY OLLIE Erasmo Ot Z68.41 BODY MASS INDEX (BMI) 40.0-44.9, ADULT 02/26/2020 NINA DO OLLIE Zimmerman Ot Z79.01 SKILLED NURSING (CURRENT) USE OF ANTICOAGULANT 02/26/2020 NINA TINSLEY OLLIE Zimmerman Ot Z95.0 PRESENCE OF CARDIAC PACEMAKER 03/01/2020 BLANCO BERMAN Ot 401.9 HYPERTENSION NOS 03/01/2020 LUISISHA LAURA, [...] BERMAN Ot R09.2 RESPIRATORY ARREST 03/01/2020 BLANCO BERMAN Ot G93.1 ANOXIC BRAIN DAMAGE, [...] 03/01/2020 FELECIA FORTUNE MD Ot Z79. 01 SKILLED NURSING (CURRENT) USE OF ANTICOAGULANT 03/01/2020 BLAYNE BERRY EQUIPMENT OPERATOR Ot M25.462 EFFUSION, LEFT KNEE 03/01/2020 BROWN NGUYEN MECHANICS HANDYMAN Ot M25.571 PAIN IN RIGHT ANKLE AND JOINTS OF RIGHT 04/04/2020 [facility], OLLIE H Ot D68.59 OTHER PRIMARY THROMBOPHILIA 04/04/2020 [facility], OLLIE Zimmerman Ot E66.01 MORBID (SEVERE) OBESITY DUE TO EXCESS CA 04/04/2020 [facility], OLLIE Zimmerman Ot I49.9 CARDIAC ARRHYTHMIA, UNSPECIFIED 04/04/2020 [facility] K[facility].9 DENTAL CARIES, UNSPECIFIED 04/04/2020 [facility] N83.01 FOLLICULAR CYST OF RIGHT OVARY 04/04/2020 [facility], OLLIE Zimmerman Ot R10.2 PELVIC AND PERINEAL PAIN 04/04/2020 [facility], OLLIE Zimmerman Ot R10.31 RIGHT LOWER QUADRANT PAIN 04/04/2020 [facility], OLLIE Erasmo Ot Z68.41 BODY MASS INDEX (BMI) 40.0-44.9, ADULT 04/04/2020 [facility], OLLIE Zimmerman Ot Z79.01 SKILLED NURSING (CURRENT) USE OF ANTICOAGULANT 04/04/2020 [facility] Z95.0 PRESENCE OF CARDIAC PACEMAKER 04/10/2020 ANTONIO CALLEJAS MD Ot F17.210 NICOTINE DEPENDENCE, CIGARETTES, UNCOMPL 04/10/2020 ANTONIO CALLEJAS MD Ot I11. 0 HYPERTENSIVE HEART DISEASE WITH HEART FA 04/10/2020 ANTONIO CALLEJAS MD Ot I50. 9 HEART FAILURE, UNSPECIFIED 04/10/2020 ANTONIO CALLEJAS MD Ot R07. 89 OTHER CHEST PAIN 04/10/2020 ANTONIO CALLEJAS MD Ot Z79. 01 SKILLED NURSING (CURRENT) USE OF ANTICOAGULANT 04/10/2020 ANTONIO CALLEJAS MD Ot Z79. 52 RUGBY LEAGUE FOOTBALLER (CURRENT) USE OF SYSTEMIC STER 04/10/2020 ANTONIO CALLEJAS MD Ot Z87.820 PERSONAL HISTORY OF TRAUMATIC BRAIN INJU 04/10/2020 ANTONIO CALLEJAS MD Ot Z88. 8 ALLERGY STATUS TO OTH DRUG/MEDS/BIOL SUB 04/10/2020 ANTONIO CALLEJAS MD Ot Z95.810 PRESENCE OF AUTOMATIC (IMPLANTABLE) CARD 04/14/2020 HECTOR LADD DO Ot I10 ESSENTIAL (PRIMARY) HYPERTENSION 04/14/2020 HECTOR LADD DO Ot R07. 2 PRECORDIAL PAIN 04/14/2020 HECTOR LADD DO Ot R07. 9 CHEST PAIN, UNSPECIFIED 04/14/2020 HECTOR LADD DO Ot Z79. 01 RUGBY LEAGUE 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 04/14/2020 HECTOR LADD DO Ot Z79. 52 RUGBY LEAGUE FOOTBALLER (CURRENT) USE OF SYSTEMIC STER 04/14/2020 HECTOR LADD DO Ot Z87.820 PERSONAL HISTORY OF TRAUMATIC BRAIN INJU 04/14/2020 HECTOR LADD DO Ot Z88. 8 ALLERGY STATUS TO OTH DRUG/MEDS/BIOL SUB 04/14/2020 HECTOR LADD DO Ot Z95.810 PRESENCE OF AUTOMATIC (IMPLANTABLE) CARD 04/25/2020 FELECIA FORTUNE MD Ot I08. 1 RHEUMATIC DISORDERS OF BOTH MITRAL AND T 04/25/2020 FELECIA FORTUNE MD Ot I10 ESSENTIAL (PRIMARY) HYPERTENSION 04/25/2020 FELECIA FORTUNE MD Ot R00. 1 BRADYCARDIA, UNSPECIFIED Procedures Code Description Performed By Per formed [...] 7-25 CREATININE 1.63 mg/dL 0.50-1.10 eGFR NON-AFR. NEPALESE 42 mL/min/1.73m2 > OR = 60 eGFR [...] 7-25 CREATININE 1.82 mg/dL 0.50-1.10 eGFR NON-AFR. NEPALESE 37 mL/min/1.73m2 > OR = 60 eGFR [...] plasma alkaline phosphatase eugene surement (enzymatic activity/volume) 83 U/L 40-136 Serum [...] NO NRG Urine drug screening test - 11/04/19 16: 45 Urine phencyclidine detection by screening [...] 7-25 CREATININE 1.58 mg/dL 0.50-1.10 eGFR NON-AFR. NEPALESE 43 mL/min/1.73m2 > OR = 60 eGFR [...] - 02/22/20 19:13 Lipase 26 U/L 8-78 Complete blood count (CBC) with automate d white blood cell (WBC) differential - 04/08/20 01:03 Blood leukocytes automated count (number/volume) 7.7 10*3/uL 4.3-11.0 Blood erythrocytes automated count (number/volume) 4.83 10*6/uL 4.35-5.85 Venous blood hemoglobin measurement (mass/volume) 13.7 g/dL 11.5-16.0 Blood hematocrit (volume fraction) 42 % 35-52 Automated erythrocyte mean corpuscular volume 87 [ foz_us] 80-99 Automated erythrocyte mean corpuscular h emoglobin (mass per erythrocyte) 28 pg 25-34 Automated erythrocyte mean corpuscular h emoglobin concentration measurement (mass/volume) 33 g/dL 32-36 Automated erythrocyte distribution width ratio 15. 8 % 10.0- 14.5 Automated blood platelet count (count/volume) 306 10*3/uL 130-400 Automated blood platelet mean volume measurement 8.8 [foz_us] 7.4-10.4 Automated blood neutrophils/100 leukocytes 39 % 42-75 Automated blood lymphocytes/100 leukocytes 49 % 12-44 Blood monocytes/100 leukocytes 9 % 0-12 Automated blood eosinophils/100 leukocytes 2 % 0-10 Automated blood basophils/100 leukocytes 0 % 0-10 Blood neutrophils automated count (number/volume) 3.0 10*3 1.8-7.8 Blood lymphocytes automated count (number/volume) 3.8 10*3 1.0-4.0 Blood monocytes automated count (number/volume) 0. 7 10*3 0.0-1.0 Automated eosinophil count 0.1 10*3/uL 0 .0-0.3 Automated blood basophil count (count/volume) 0.0 10*3/uL 0.0-0.1 Comprehensive metabolic panel - 04/08/20 01:03 Serum or plasma sodium measurement (moles/volume) 140 mmol/L 135-145 Serum or plasma potassium measurement (moles/volume) 4.2 mmol/L 3.6-5.0 Serum or plasma chloride measurement (moles/volume) 106 mmol/L 98-107 Carbon dioxide 22 mmol/L 21-32 Serum or plasma anion gap determination (moles/volume) 12 mmol/L 5-14 Serum or plasma urea nitrogen measurement (mass/volume ) 21 mg/dL 7-18 Serum or plasma creatinine measurement (mass/volume) 1.94 mg/dL 0.60-1.30 Serum or plasma urea nitrogen/creatinine mass ratio 11 NRG Serum or plasma creatinine measurement w ith calculation of estimated glomerular filtration rate 36 NRG Serum or plasma glucose measurement (mass/volume) 84 mg/dL 70-105 Serum or plasma calcium measurement (mass/volume) 9.4 mg/dL 8.5-10.1 Serum or plasma total bilirubin measurement (mass/volu me) 0.2 mg/dL 0.1-1.0 Serum or plasma alkaline phosphatase eugene surement (enzymatic activity/volume) 82 U/L 40-136 Serum or plasma aspartate aminotransfera se measurement (enzymatic activity/volume) 20 U/L 5-34 Serum or plasma alanine aminotransferase measurement (enzymatic activity/volume) 12 U/L 0-55 Serum or plasma protein measurement (mass/volume) 6.9 g/dL 6.4-8.2 Serum or plasma albumin measurement (mass/volume) 3.8 g/dL 3.2-4.5 CALCIUM CORRECTED 9.6 mg/dL 8.5-10.1 Magnesium - 04/08/20 01:03 Magnesium 2.0 mg/dL 1.6-2.4 Serum or plasma troponin i.cardiac measu rement (mass/volume) - 04/08/20 01:03 Serum or plasma troponin i.cardiac measurement (mass/v olume) < ng/mL <0.028 PT panel in platelet poor plasma by coag ulation assay - 04/08/20 01:03 Prothrombin time (PT) in platelet poor plasma by coagu lation assay 12.6 s 12.2-14.7 INR in platelet poor plasma or blood by coagulation as say 0.9 0.8-1.4 Activated partial thromboplastin time (a PTT) in platelet poor plasma bycoagulation assay - 04/08/20 01:03 Activated partial thromboplastin time (a PTT) in platelet poor plasma bycoagulation assay 24 s 24-35 Myoglobin, serum - 04/08/20 01:03 Myoglobin, serum 86.0 ng/mL 10.0-92.0 Lipase - 04/08/20 01:03 Lipase 32 U/L 8-78 Serum or plasma lithium measurement (mol es/volume) - 04/08/20 01:03 BNP PT 111.8 pg/mL <100.0 CULTURE, GENITAL - 04/08/20 16:34 CULTURE, GENITAL SEE NOTE NRG Complete blood count (CBC) with automate d white blood cell (WBC) differential - 04/10/20 03:15 Blood leukocytes automated count (number/volume) 8.2 10*3/uL 4.3-11.0 Blood erythrocytes automated count (number/volume) 4.81 10*6/uL 4.35-5.85 Venous blood hemoglobin measurement (mass/volume) 13.8 g/dL 11.5-16.0 Blood hematocrit (volume fraction) 42 % 35-52 Automated erythrocyte mean corpuscular volume 88 [ foz_us] 80-99 Automated erythrocyte mean corpuscular h emoglobin (mass per erythrocyte) 29 pg 25-34 Automated erythrocyte mean corpuscular h emoglobin concentration measurement (mass/volume) 33 g/dL 32-36 Automated erythrocyte distribution width ratio 15. 3 % 10.0- 14.5 Automated blood platelet count (count/volume) 337 10*3/uL 130-400 Automated blood platelet mean volume measurement 9.0 [foz_us] 7.4-10.4 Automated blood neutrophils/100 leukocytes 41 % 42-75 Automated blood lymphocytes/100 leukocytes 50 % 12-44 Blood monocytes/100 leukocytes 7 % 0-12 Automated blood eosinophils/100 leukocytes 2 % 0-10 Automated blood basophils/100 leukocytes 1 % 0-10 Blood neutrophils automated count (number/volume) 3.4 10*3 1.8-7.8 Blood lymphocytes automated count (number/volume) 4.1 10*3 1.0-4.0 Blood monocytes automated count (number/volume) 0. 6 10*3 0.0-1.0 Automated eosinophil count 0.1 10*3/uL 0 .0-0.3 Automated blood basophil count (count/volume) 0.1 10*3/uL 0.0-0.1 PT panel in platelet poor plasma by coag ulation assay - 04/10/20 03:15 Prothrombin time (PT) in platelet poor plasma by coagu lation assay 12.7 s 12.2-14.7 INR in platelet poor plasma or blood by coagulation as say 0.9 0.8-1.4 Activated partial thromboplastin time (a PTT) in platelet poor plasma bycoagulation assay - 04/10/20 03:15 Activated partial thromboplastin time (a PTT) in platelet poor plasma bycoagulation assay 27 s 24-35 TROPONIN I FS - 04/10/20 03:15 TROPONIN I FS < 0.30 <0.30 PROBNP FS - 04/10/20 03:15 PROBNP FS 797.5 pg/mL <75.0 Comprehensive metabolic panel - 04/10/20 03:15 Serum or plasma sodium measurement (moles/volume) 138 mmol/L 135-145 Serum or plasma potassium measurement (moles/volume) 3.6 mmol/L 3.6-5.0 Serum or plasma chloride measurement (moles/volume) 99 mmol/L 98-107 Carbon dioxide 25 mmol/L 21-32 Serum or plasma anion gap determination (moles/volume) 14 mmol/L 5-14 Serum or plasma urea nitrogen measurement (mass/volume ) 21 mg/dL 7-18 Serum or plasma creatinine measurement (mass/volume) 2.02 mg/dL 0.60-1.30 Serum or plasma urea nitrogen/creatinine mass ratio 10 NRG Serum or plasma creatinine measurement w ith calculation of estimated glomerular filtration rate 35 NRG Serum or plasma glucose measurement (mass/volume) 102 mg/dL 70-105 Serum or plasma calcium measurement (mass/volume) 9.7 mg/dL 8.5-10.1 Serum or plasma total bilirubin measurement (mass/volu me) 0.2 mg/dL 0.1-1.0 Serum or plasma alkaline phosphatase eugene surement (enzymatic activity/volume) 87 U/L 40-136 Serum or plasma aspartate aminotransfera se measurement (enzymatic activity/volume) 19 U/L 5-34 Serum or plasma alanine aminotransferase measurement (enzymatic activity/volume) 15 U/L 0-55 Serum or plasma protein measurement (mass/volume) 6.8 g/dL 6.4-8.2 Serum or plasma albumin measurement (mass/volume) 4.1 g/dL 3.2-4.5 CALCIUM CORRECTED 9.6 mg/dL 8.5-10.1 Fibrin D-dimer FEU measurement in platel et poor plasma (mass/volume) - 04/10/20 03:15 Fibrin D-dimer FEU measurement in platelet poor plasma (mass/volume) 0.78 ug/mL 0.00-0.49 Lipase - 04/10/20 03:15 Lipase 33 U/L 8-78 TROPONIN I FS - 04/10/20 06:49 TROPONIN I FS < 0.30 <0.30 Encounters ACCT No. Visit Date/Time Discharge Status Pt. Type Provider Facility Loc./Unit Complaint [id number] 05/01/2020 16:45:00 05/01/2020 23:59:5 9 CLS Outpatient ONEIL MAZARIEGOS, MOUNIKA [facility] [id number] 04/08/2020 14:35:00 Document Registration [id number] 12/11/2019 10:00:00 Document Registration [id number] 06/29/2019 09:40:00 Document Registration [id number] 04/20/2019 10:00:00 Document Registration [id number] 09/20/2018 09:20:00 Document Registration [id number] 08/10/2018 11:40:00 Document Registration [id number] 04/24/2020 11:29:00 23:59:59 CLS Outpatient TONG MAZARIEGOS, FELECIA Diaz [facility] CARD HTN [id number] 04/10/2020 03:04:00 07:47:00 DIS Outpatient HECTOR LADD DO [facility] ER FS CHEST PAIN; SOB [id number] 04/08/2020 00:37:00 02:07:00 DIS Outpatient ANTONIO CALLEJAS MD [facility] ER PACE MAKER ACTING FUNNY [id number] 02/22/2020 18:41:00 21:10:00 DIS Emergency OLLIE WOOD DO [facility] ER FS ABD PAIN [id number] 02/15/2020 03:26:00 05:25:00 DIS Emergency ROVENSTALPESH CONDE DO [facility] ER FS CARDIC CONCERNS [id number] 02/05/2020 11:26:00 14:29:00 DIS Emergency HECTOR LADD DO [facility] ER FS ELEV BP [id number] 12/27/2019 17:57:00 19:48:00 DIS Emergency EDISON CHAMBERLAIN MD [facility] ER FS LOWER ABD PAIN [id number] 11/29/2019 22:03:00 01/02/2 020 23:16:00 DIS Emergency KRISTA MAZARIEGOS, ORESTES Guthrie [facility] ER FS LOWER ABD PAIN [id number] 11/04/2019 16:40:00 18:15:00 DIS Emergency JÚNIOR MAZARIEGOS, ANTONIO Diaz [facility] ER FS RT SIDED PAIN [id number] 10/23/2019 08:51:00 10:49:00 DIS Emergency HECTOR LADD DO [facility] ER FS LT FLANK PAIN; NAUSEA [id number] 08/31/2019 04:15:00 06:35:00 DIS Emergency EDISON CHAMBERLAIN MD [facility] ER FS CHEST PAIN [id number] 08/28/2019 16:55:00 17:54:00 DIS Emergency MOIZ MARLEY DO [facility] ER FS SUPRAPUBIC CRAMPING [id number] 08/27/2019 09:29:00 23:59:59 CLS Outpatient BROWN NGUYEN APRN [facility] RAD FS M25.571 [id number] 08/15/2019 17:05:00 19:10:00 DIS Emergency JÚNIOR MAZARIEGOS, ANTONIO Diaz [facility] ER FS LT KNEE PAIN [id number] 07/29/2019 21:19:00 22:01:00 DIS Emergency ORESTES VELASCO MD [facility] ER FS RIGHT FOOT POSS BUG BIT E [id number] 07/28/2019 18:05:00 20:13:00 DIS Emergency FEDE AMARO MD [facility] ER FS HEADACHE [id number] 07/09/2019 08:56:00 23:59:59 CLS Outpatient BLAYNE BERRY [facility] RAD FS LEFT KNEE PAIN [id number] 06/04/2019 19:53:00 22:04:00 DIS Emergency MARIBEL MAZARIEGOS, RALPH Mcelroy [facility] ER POST PACE MAKER OP/L SHOULDER PAIN/RACING HEART [id number] 05/22/2019 19:15:00 22:34:00 DIS Emergency DELIO ARIZA DO [facility] ER FS CHEST PAIN [id number] 05/11/2019 13:28:00 14:48:00 DIS Emergency JÚNIOR MAZARIEGOS, ANTONIO Diaz [facility] ER BLOOD COMING OUT FROM S [facility] SITE [id number] 05/09/2019 19:36:00 06:23:00 DIS Inpatient HOLLY MAZARIEGOS, ALEX Griffith [facility] 4TH CHEST PAIN;ELEVATED BNP ;H/O CARDIAC ARREST [id number] 05/05/2019 18:06:00 20:26:00 DIS Emergency NIK CELIS [facility] ER PACEMAKER CONCERNS [id number] 04/20/2019 22:38:00 23:29:00 DIS Emergency HILARY TINSLEY, VINITA L [facility] ER FS SWOLLEN ARMS, HANDS AND FEET [id number] 04/19/2019 15:50:00 18:33:00 DIS Emergency LISA MARCELINO APRN [facility] ER HEADACHE [id number] 04/12/2019 20:29:00 23:19:00 DIS Emergency EDISON CHAMBERLAIN MD [facility] ER FS VOMITING, BACK PAIN, DI ZZY [id number] 04/09/2019 00:33:00 01:40:00 DIS Emergency DELIO ARIZA DO [facility] ER FS LEFT PAIN [id number] 01/06/2019 01:18:00 03:15:00 DIS Emergency FEDE AMARO MD [facility] ER CP,FALL 2 DAYS AGO [id number] 01/01/2019 15:50:00 19:25:00 DIS Emergency NIK CELIS [facility] ER SOB/COUGHING UP BLOOD [id number] 11/01/2018 14:51:00 018 19:37:00 DIS Emergency RALPH LÓPEZ MD [facility] ER SOB;HEAD PAIN;H IGH BP [id number] 10/23/2018 12:07:00 018 23:59:59 CLS Outpatient FELECIA FORTUNE MD [facility] CARD CARDIOMYOPATHY,HTN,MR,S INUS BRADYCARDIA [id number] 08/05/2018 17:39:00 19:33:00 DIS Emergency DANIELNIK ANGULO [facility] ER HEAD HURTING,RT ANKLE S WOLLEN [id number] 01/12/2018 10:17:00 23:59:59 CLS Outpatient MICHAEL BERMAN [facility] CARD G93.1 ANOXI C ENCEPHALOPATHY [id number] 10/06/2017 12:00:00 017 23:59:59 CLS Preadmit FELECIA FORTUNE MD [facility] CARD CARDIOMYOPATHY I42.9 [id number] 03/03/2016 12:12:00 016 23:59:59 CLS Outpatient MICHAEL BERMAN [facility] CARD ENCOPELPATH [id number] 02/15/2016 15:59:00 016 18:46:00 DIS Emergency OSMAN GONSALES MD [facility] ER DEFIBRILLATOR ISSUES [id number] 12/01/2015 18:08:00 016 21:10:00 DIS Emergency RODRIGO HILL DO [facility] ER IRREGULAR HEART RATE [id number] 08/23/2015 20:00:00 015 01:08:00 DIS Emergency RALPH LÓPEZ MD [facility] ER DEFIBRILLATOR B EEPING [id number] 08/08/2015 22:55:00 00:13:00 DIS Emergency KRISTA MAZARIEGOS, ORESTES Guthrie [facility] ER L ARM/RIB CAGE PAIN [id number] 07/27/2015 18:45:00 12:40:00 DIS Inpatient APRIL DOMINIQUE DO [facility] CSD L PNEUMOTHORAX L CHEST WALL PX ELEV LFT'S [id number] 07/23/2015 06:38:00 11:45:00 DIS Outpatient FELECIA FORTUNE MD [facility] CATH CGF,CARDIOMYOPATHY [id number] 07/15/2015 11:28:00 23:59:59 CLS Outpatient FELECIA FORTUNE MD [facility] LAB CHF,HTN,TR [id number] 07/11/2015 10:45:00 23:59:59 CLS Outpatient NERISSA LAURA, MICHAEL Mohan [facility] CARD CHF,CARDINU REOPATHY HTN [id number] 03/26/2015 13:23:00 18:00:00 DIS Inpatient APRIL DOMINIQUE DO [facility] CSD UNK [id number] 03/21/2015 12:45:00 12:46:00 DIS Inpatient KAUR MAZARIEGOS, LISSET Mcghee [facility] IRF DEBILITY,ENCEPHALOPATHY
[2020-05-11] MEDS ORDERED: diphenhydrAMINE 50 MG/ML INJ (BENADRYL) IM STA (12:28)
[2020-05-11] MEDS ORDERED: DEXAMETHASONE 10 MG/ML (DECADRON) 1 ML VIAL IM STA (12:28)
--- NOTE | 2020-05-11 12:35 | ED EENT ---
History of Present Illness General Chief Complaint: Oral/Throat Problems Stated Complaint: THROAT PAIN/SWELLING Nursing Triage Note: states throat started swelling this smorning and it hurts to talk. Source: patient History of Present Illness Date Seen by Provider: May 11, 2020 Time Seen by Provider: 12:18 Initial Comments 29 yo Female presenting with complaint of sensation of swelling to mouth and throat. She denies taking any new medications but did eat a new salad yesterday. She denies any new clothes, soaps or detergents. She states that she woke up with the sensation of swelling. She has not taken anything for this. She denies any cough or shortness of breath. She has had no fever or chills. She has no pain in her throat. Allergies and Home Medications Allergies Coded Allergies: JIA Inhibitors (Verified Allergy, Severe, 05/22/19) ARB-Angiotensin Receptor Antagonist (Verified Allergy, Severe, 05/22/19) baclofen (Unverified Allergy, Unknown, 05/22/19) ON H&P phenazopyridine (Unverified Allergy, Unknown, 05/22/19) ON H&P Home Medications Albuterol Sulfate 8 Gm Hfa.aer.ad, 2 PUFF INH Q6H PRN for SHORTNESS OF BREATH, (Reported) Amlodipine Besylate 10 Mg Tablet, 10 MG PO DAILY, (Reported) Apixaban 5 Mg Tablet, 5 MG PO BID Prescribed by: RALPH DELCID on 11/01/18 185 Dicyclomine HCl 10 Mg Capsule, 10 MG PO QID PRN for abdominal pain/nausea Prescribed by: EDISON CHAMBERLAIN on 12/27/19 1936 Diphenhydramine HCl 25 Mg Capsule, 25 MG PO Q4H PRN for throat irritation Prescribed by: EDISON CHAMBERLAIN on 05/11/20 1239 Diphenoxylate HCl/Atropine 1 Each Tablet, 1 EACH PO BID PRN for DIARRHEA Prescribed by: ORESTES VELASCO on 11/29/19 230 Doxycycline Hyclate 100 Mg Tablet, 100 MG PO BID Prescribed by: MOIZ MARLEY on 08/28/19 174 Famotidine 40 Mg Tablet, 40 MG PO DAILY Prescribed by: EDISON CHAMBERLAIN on 05/11/20 1239 Fluconazole 100 Mg Tablet, 100 MG PO Q48H Prescribed by: MOIZ MARLEY on 08/28/19 1746 Methylprednisolone 4 Mg Tab, 4 MG PO UD as directed per dose pack Prescribed by: ANTONIO CALLEJAS on 08/15/19 1841 Metoprolol Tartrate 50 Mg Tablet, 50 MG PO BID Prescribed by: FELECIA FORTUNE on 07/24/15 0841 Prednisone 20 Mg Tab, 40 MG PO DAILY Prescribed by: ANTONIO CALLEJAS on 11/04/19 1759 Patient Home Medication List Home Medication List Reviewed: Yes Review of Systems Review of Systems Constitutional: No chills, No fever Eyes: No Symptoms Reported Ears: No Symptoms Reported Nose: no symptoms reported Mouth: see HPI, swelling Throat: see HPI, swelling Respiratory: No cough, No short of breath Cardiovascular: No chest pain Gastrointestinal: no symptoms reported Musculoskeletal: no symptoms reported Skin: No rash Neurological: Headache; Denies Numbness, Denies Paresthesia Past Qprbxeu-Mpaqbg-Xetpyn Hx Past Med/Social Hx: Reviewed Nursing Past Med/Soc Hx Patient Social History Alcohol Use: Denies Use Recreational Drug Use: No Smoking Status: Former Smoker Type Used: Cigarettes 2nd Hand Smoke Exposure: No Recent Foreign Travel: No Contact w/Someone Who Travel: No Recent Infectious Disease Expo: No Recent Hopitalizations: No Physical Abuse: No Sexual Abuse: No Mistreated: No Fear: No Immunizations Up To Date Tetanus Booster (TDap): Unknown PED Vaccines UTD: Yes Date of Pneumonia Vaccine: Sep 09, 2018 Date of Influenza Vaccine: Aug 19, 2015 Seasonal Allergies Seasonal Allergies: No Past Medical History Surgeries: Yes (DEFIBRILLATOR PLACED 05/10/19. PEG TUBE--REMOVED, uterine ablation) Abdominal, Section, Defibrillator, Gallbladder Respiratory: Yes (ARDS-CODED; PNEUMOTHORAX 06/2015) Pneumonia, Chronic Bronchitis Currently Using CPAP: No Currently Using BIPAP: No Cardiac: Yes (PULMONARY EDEMA/CARDIAC CAUSE-R/T ATRIAL THROMBUS; CARDIAC ARREST;V-FIB ) Cardiomyopathy, Endocarditis, Hypertension, Valvular Heart Disease Neurological: Yes (encephalopathy-hypoxia, anoxic brain injury) Reproductive Disorders: No Sexually Transmitted Disease: No Genitourinary: Yes Renal Failure Gastrointestinal: Yes Gastroesophageal Reflux Musculoskeletal: Yes (GAIT DISTURBANCE) Endocrine: No HEENT: No Loss of Vision: Denies Hearing Impairment: Denies Cancer: No Psychosocial: Yes (per med record) Anxiety, Bipolar, Depression Integumentary: No Blood Disorders: Yes (ANEMIA) Family Medical History Patient reports no known family medical history. No Pertinent Family Hx Physical Exam Vital Signs Vital Signs - First Documented 05/11/20 12:22 Temp 36.6 Pulse 103 Resp 16 B/P (MAP) 144/98 (113) Pulse Ox 96 Height, Weight, BMI Height: 5'3.00" Weight: 234lbs. 0oz. 106.102472re; 45.00 BMI Method:Stated General Appearance: WD/WN, no apparent distress Eyes: bilateral eye PERRL, bilateral eye EOMI Nose: normal inspection Mouth/Throat: pharynx normal; No pharynx swelling, No pharynx tenderness, No tongue swollen, No tonsillar exudate, No tonsillar swelling, No uvula swelling Neck: non-tender, full range of motion, supple, normal inspection Cardiovascular: normal peripheral pulses, regular rate, rhythm Respiratory: chest non-tender, lungs clear, normal breath sounds Neurologic/Psychiatric: alert Skin: normal color, warm/dry; No rash Progress/Results/Core Measures Results/Orders My Orders Orders - EDISON CHAMBERLAIN MD Dexamethasone Injection (Decadron Inject (05/11/20 12:28) Diphenhydramine Injection (Benadryl Inje (05/11/20 12:28) Vital Signs/I&O 05/11/20 12:22 Temp 36.6 Pulse 103 Resp 16 B/P (MAP) 144/98 (113) Pulse Ox 96 Blood Pressure Mean: 113 Progress Progress Note : Progress Note Will cover with steroid and antihistamine to help from possible allergic reaction standpoint. Continue on antihistamines for a few days. Check back with her regular provider if not improving or having more concerns Departure Impression Primary Impression: Sensation of swollen throat Additional Impression: Allergic reaction Qualified Codes: T78.40XA - Allergy, unspecified, initial encounter Disposition: 01 HOME, SELF-CARE Condition: Stable Departure-Patient Inst. Decision time for Depature: 12:34 Referrals: MOUNIKA RIGGS MD (PCP/Family) Primary Care Physician Patient Instructions: Angioedema (DC) Add. Discharge Instructions: Continue on antihistamines to help with sensation of swelling and allergic reaction. Check back with clinic for continued concerns. The steroid shot from today may make your blood sugar be high for the next 1-2 days. Watch your diet and limit any extra carbohydrates or sugars. All discharge instructions reviewed with patient and/or family. Voiced understanding. Scripts Diphenhydramine HCl (Diphenhydramine HCl) 25 Mg Capsule 25 MG PO Q4H PRN for throat irritation for 5 Days, #30 CAP 0 Refills Prov: EDISON CHAMBERLAIN MD 05/11/20 Famotidine (Famotidine) 40 Mg Tablet 40 MG PO DAILY for 7 Days, #7 TAB 0 Refills Prov: EDISON CHAMBERLAIN MD 05/11/20 EDISON CHAMBERLAIN MD May 11, 2020 12:35
[2020-05-11] MEDS ORDERED: FAMO40TA6 PO (12:39)
[2020-05-11] MEDS ORDERED: DIPH25CA48 PO (12:39)
== END 2020-05-11 12:56 | disposition home or self-care (01) ==
LOC: EDUNIT# 12:16 → ER FS 12:17
DX: R09.89 Other specified symptoms and signs involving the circulatory and respiratory systems (principal); T78.1XXA Other adverse food reactions, not elsewhere classified, initial encounter; I10 Essential (primary) hypertension; K21.9 Gastro-esophageal reflux disease without esophagitis; Z88.8 Allergy status to other drugs, medicaments and biological substances; Z79.01 Long term (current) use of anticoagulants; Z79.52 Long term (current) use of systemic steroids; Z87.891 Personal history of nicotine dependence; Z95.810 Presence of automatic (implantable) cardiac defibrillator
CPT/HCPCS: 99284

== ENCOUNTER 2020-05-17 01:54 | Emergency (ER) | payer MEDICARE, MEDICAID ==
[~2020-05-17] VITALS: Ht 160 cm; Wt 109.0 kg
[~2020-05-17 01:54] MED LIST changes: +DIPH25CA48 PO; +FAMO40TA6 PO
[2020-05-17] MEDS ORDERED: NITROGLYCERIN 0.4 MG SL TABS BTL 25'S SL PRN (02:00)
[2020-05-17] MEDS ORDERED: ASPIRIN 81 MG CHEW (CHILDREN'S ASA) PO ONE (02:00)
--- NOTE | 2020-05-17 02:17 | ED Chest Pain ---
General Stated Complaint: CP,SOA Source: patient (PT IS POOR HISTORIAN ABOUT PMH--STATES "SHE CAN'T REMEMBER" TO MOST QUESTIONS. ALSO GIVES MUCH CONFLICTING INFORMATION), old records History of Present Illness Date Seen by Provider: May 17, 2020 Time Seen by Provider: 02:05 Initial Comments PT ARRIVES VIA POV FROM HOME IN [place]. C/O CHEST PAIN AND SHORTNESS OF BREATH SINCE 2199 TONIGHT, WHILE LAYING DOWN PAIN ALSO IN UPPER BACK NOTHING WORSENS OR IMPROVES PAIN NO NAUSEA/VOMITING NO SWEATS NO DIZZINESS OR SYNCOPE NO DEFIBRILLATOR DISCHARGE HAS HAD SOME SWELLING IN HER LEGS/FEET LATELY, BUT NOT NOW. PT IS VERY ANXIOUS AND HYPERVENTILATING AND VERY DRAMATIC ON ARRIVAL STATES SHE HAS BEEN UNDER ALOT OF STRESS, BUT CANNOT ELABORATE PT HAS DEFIBRILLATOR IN PLACE SINCE 2014, AFTER CARDIAC ARREST/V-FIB/ATRIAL THROMBUS, BUT NO HX OF CAD. HAS HAD IT REPLACED AT LEAST ONCE FOR MALFUNCTION. PT THINKS THAT IT WAS "TURNED OFF" BY SOMEONE, AND DOESN'T KNOW WHO, WHERE, WHEN OR WHY. STATES SHE HAS TO GO INTO THE OFFICE TO CHECK THE DEVICE--CAN'T DO IT OVER THE PHONE ANYMORE APPEARS THAT DEVICE WAS REPLACED WITH DEFIBRILLATOR ONLY IN 2018 PT DENIES ANY DEFIBRILLATOR DISCHARGE PT WITH A MULTITUDE OF VISITS--9 VISITS IN 2020, FOR VARIOUS PAIN COMPLAINTS, A ND MANY WITH SAME COMPLAINT OF CHEST PAIN MOST VISITS HAVE BEEN TO [place]. NO KNOWN SICK CONTACTS OR EXPOSURE TO COVID-19 PCP: DR. RIGGS AT [facility] [employer]: DR. FORTUNE Allergies and Home Medications Allergies Coded Allergies: JIA Inhibitors (Verified Allergy, Severe, 05/22/19) ARB-Angiotensin Receptor Antagonist (Verified Allergy, Severe, 05/22/19) baclofen (Unverified Allergy, Unknown, 05/22/19) ON H&P phenazopyridine (Unverified Allergy, Unknown, 05/22/19) ON H&P Home Medications Albuterol Sulfate 8 Gm Hfa.aer.ad, 2 PUFF INH Q6H PRN for SHORTNESS OF BREATH, (Reported) Amlodipine Besylate 10 Mg Tablet, 10 MG PO DAILY, (Reported) Apixaban 5 Mg Tablet, 5 MG PO BID Prescribed by: RALPH DELCID on 11/01/181855 Dicyclomine HCl 10 Mg Capsule, 10 MG PO QID PRN for abdominal pain/nausea Prescribed by: EDISON CHAMBERLAIN on 12/27/19 193 Diphenhydramine HCl 25 Mg Capsule, 25 MG PO Q4H PRN for throat irritation Prescribed by: EDISON CHAMBERLAIN on 05/11/20 1239 Diphenoxylate HCl/Atropine 1 Each Tablet, 1 EACH PO BID PRN for DIARRHEA Prescribed by: ORESTES VELASCO on 11/29/19 2309 Doxycycline Hyclate 100 Mg Tablet, 100 MG PO BID Prescribed by: MOIZ MARLEY on 08/28/19 174 Famotidine 40 Mg Tablet, 40 MG PO DAILY Prescribed by: EDISON CHAMBERLAIN on 05/11/20 1239 Fluconazole 100 Mg Tablet, 100 MG PO Q48H Prescribed by: MOIZ MARLEY on 08/28/19 174 Methylprednisolone 4 Mg Tab, 4 MG PO UD as directed per dose pack Prescribed by: ANTONIO CALLEJAS on 08/15/19 1841 Metoprolol Tartrate 50 Mg Tablet, 50 MG PO BID Prescribed by: FELECIA FORTUNE on 07/24/15 0841 Prednisone 20 Mg Tab, 40 MG PO DAILY Prescribed by: ANTONIO CALLEJAS on 11/04/19 1759 Patient Home Medication List Home Medication List Reviewed: Yes Review of Systems Review of Systems Constitutional: no symptoms reported; No diaphoresis, No dizziness, No fever Respiratory: See HPI, Shortness of Air Cardiovascular: See HPI Gastrointestinal: No Symptoms Reported; Denies Abdominal Pain, Denies Nausea, Denies Vomiting Genitourinary: See HPI Musculoskeletal: see HPI, back pain Skin: no symptoms reported Psychiatric/Neurological: Anxiety Endocrine: No Symptoms Reported Hematologic/Lymphatic: No Symptoms Reported Past Hvgvhuz-Vwdwii-Hsessq Hx Past Med/Social Hx: Reviewed and Corrections made Patient Social History Alcohol Use: Occasionally Uses Recreational Drug Use: Yes (METH USE IN PAST--PT CAN'T REMEMBER HOW SHE USED IT) Drug of Choice: METH USE IN PAST-PT STATES SHE CAN'T REMEMBER HOW SHE USED IT Smoking Status: Former Smoker Type Used: Cigarettes 2nd Hand Smoke Exposure: No Recent Hopitalizations: No Immunizations Up To Date Tetanus Booster (TDap): Unknown PED Vaccines UTD: Yes Date of Pneumonia Vaccine: Sep 09, 2018 Date of Influenza Vaccine: Aug 19, 2015 Seasonal Allergies Seasonal Allergies: No Past Medical History Surgeries: Yes (PACER/DEFIB 2014; DEFIB PLACED 05/10/19. PEG TUBE- REMOVED;UTERINE ABLATION) Abdominal, Section, Defibrillator, Gallbladder, Pacemaker Respiratory: Yes (ARDS-CODED; PNEUMOTHORAX 06/2015) Pneumonia, Chronic Bronchitis Currently Using CPAP: No Currently Using BIPAP: No Cardiac: Yes (PULMONARY EDEMA/CARDIAC CAUSE-R/T ATRIAL THROMBUS; CARDIAC ARREST;V-FIB ) Cardiomyopathy, Endocarditis, Hypertension, Valvular Heart Disease Neurological: Yes (encephalopathy-hypoxia, anoxic brain injury; [facility] MEMORY) Reproductive Disorders: No Sexually Transmitted Disease: No Genitourinary: Yes Renal Failure Gastrointestinal: Yes Gastroesophageal Reflux Musculoskeletal: Yes (GAIT DISTURBANCE) Endocrine: No (OBESITY) HEENT: No Loss of Vision: Denies Hearing Impairment: Denies Cancer: No Psychosocial: Yes (per med record) Anxiety, Bipolar, Depression Integumentary: No Blood Disorders: Yes (ANEMIA) Family Medical History Patient reports no known family medical history. No Pertinent Family Hx Physical Exam Vital Signs Vital Signs - First Documented Capillary Refill : Height, Weight, BMI Height: 5'3.00" Weight: 234lbs. 0oz. 106.014082xa; 45.00 BMI Method:Stated General Appearance: No Apparent Distress, Anxious (VERY ANXIOUS, VERY DRAMATIC. ), Obese (WITH VERY LARGE PENDULOUS BREASTS) HEENT: PERRL/EOMI Neck: Full Range of Motion, Normal Inspection, Non Tender, Supple; No Carotid Bruit, No JVD Respiratory: Normal Breath Sounds, No Accessory Muscle Use, No Respiratory Distress (BUT HYPERVENTILATING ON ARRIVAL), Other (MID AND UPPER STERNUM MARKEDLY TENDER, PALPATION REPRODUCES PAIN ) Cardiovascular: No Edema, No JVD, No Murmur, Normal Peripheral Pulses, Tachycardia Gastrointestinal: Non Tender, Soft Extremity: Normal Capillary Refill, Normal Inspection, Normal Range of Motion, Non Tender, No Calf Tenderness, No Pedal Edema Neurologic/Psychiatric: Alert, Oriented x3, No Motor/Sensory Deficits, tile grader II- XII Norm as Tested, Other (ANXIOUS) Skin: Normal Color (PT IS BLACK), Warm/Dry, Tattoos/Piercings Other comments MID AND UPPER THORACIC AREA TENDER TO PALPATION--PALPATION REPRODUCES PAIN Progress/Results/Core Measures Results/Orders Lab Results Laboratory Tests Test 05/17/20 02:12 05/17/20 05:00 Range/Units White Blood Count 10.6 4.3-11.0 10^3/uL Red Blood Count 4.60 4.35-5.85 10^6/uL Hemoglobin 13.4 11.5-16.0 G/DL Hematocrit 40 35-52 % Mean Corpuscular Volume 87 80-99 FL Mean Corpuscular Hemoglobin 29 25-34 PG Mean Corpuscular Hemoglobin Concent 33 32-36 G/DL Red Cell Distribution Width 15.7 H 10.0-14.5 % Platelet Count 291 130-400 10^3/uL Mean Platelet Volume 8.9 7.4-10.4 FL Neutrophils (%) (Auto) 47 42-75 % Lymphocytes (%) (Auto) 44 12-44 % Monocytes (%) (Auto) 6 0-12 % Eosinophils (%) (Auto) 2 0-10 % Basophils (%) (Auto) 0 0-10 % Neutrophils # (Auto) 5.0 1.8-7.8 X 10^3 Lymphocytes # (Auto) 4.7 H 1.0-4.0 X 10^3 Monocytes # (Auto) 0.7 0.0-1.0 X 10^3 Eosinophils # (Auto) 0.3 0.0-0.3 10^3/uL Basophils # (Auto) 0.0 0.0-0.1 10^3/uL Erythrocyte Sedimentation Rate 17 0-20 MM/HR Prothrombin Time 12.3 12.2-14.7 SEC INR Comment 0.9 0.8-1.4 Activated Partial Thromboplast Time 29 24-35 SEC Urine Color YELLOW Urine Clarity CLEAR Urine pH 6.5 5-9 Urine Specific [place] 1.025 H 1.016-1.022 Urine Protein 2+ H NEGATIVE Urine Glucose (UA) NEGATIVE NEGATIVE Urine Ketones NEGATIVE NEGATIVE Urine Nitrite NEGATIVE NEGATIVE Urine Bilirubin NEGATIVE NEGATIVE Urine Urobilinogen 0.2 < = 1.0 MG/DL Urine Leukocyte Esterase NEGATIVE NEGATIVE Urine RBC (Auto) NEGATIVE NEGATIVE Urine RBC 0-2 /HPF Urine WBC 0-2 /HPF Urine Squamous Epithelial Cells 2-5 /HPF Urine Crystals NONE /LPF Urine Bacteria TRACE /HPF Urine Casts NONE /LPF Urine Mucus NEGATIVE /LPF Urine Yeast FEW H /HPF Urine Culture Indicated NO Sodium Level 140 135-145 MMOL/L Potassium Level 3.7 3.6-5.0 MMOL/L Chloride Level 104 98-107 MMOL/L Carbon Dioxide Level 24 21-32 MMOL/L Anion Gap 12 5-14 MMOL/L Blood Urea Nitrogen 16 7-18 MG/DL Creatinine 2.10 H 0.60-1.30 MG/DL Estimat Glomerular Filtration Rate 33 BUN/Creatinine Ratio 8 Glucose Level 106 H 70-105 MG/DL Calcium Level 9.0 8.5-10.1 MG/DL Corrected Calcium 9.2 8.5-10.1 MG/DL Magnesium Level 1.9 1.6-2.4 MG/DL Total Bilirubin 0.2 0.1-1.0 MG/DL Aspartate Amino Transf (AST/SGOT) 26 5-34 U/L Alanine Aminotransferase (ALT/SGPT) 31 0-55 U/L Alkaline Phosphatase 76 40-136 U/L Lactate Dehydrogenase 268 H 125-220 U/L Total Creatine Kinase 117 29-168 U/L Creatine Kinase MB 1.0 <6.6 NG/ML Myoglobin 68.1 10.0-92.0 NG/ML Troponin I < 0.028 < 0.028 <0.028 NG/ML C-Reactive Protein High Sensitivity 2.60 H 0.00-0.50 MG/DL B-Type Natriuretic Peptide 42.9 <100.0 PG/ML Total Protein 6.8 6.4-8.2 GM/DL Albumin 3.8 3.2-4.5 GM/DL Amylase Level 95 25-125 U/L Lipase 32 8-78 U/L Procalcitonin 0.08 <0.10 NG/ML Serum Test, Qualitative NEGATIVE NEGATIVE Urine Opiates Screen NEGATIVE NEGATIVE Urine Oxycodone Screen NEGATIVE NEGATIVE Urine Methadone Screen NEGATIVE NEGATIVE Urine Propoxyphene Screen NEGATIVE NEGATIVE Urine Barbiturates Screen NEGATIVE NEGATIVE Ur Tricyclic Antidepressants Screen POSITIVE H NEGATIVE Urine Phencyclidine Screen NEGATIVE NEGATIVE Urine Amphetamines Screen NEGATIVE NEGATIVE Urine Methamphetamines Screen NEGATIVE NEGATIVE Urine Benzodiazepines Screen NEGATIVE NEGATIVE Urine Cocaine Screen NEGATIVE NEGATIVE Urine Cannabinoids Screen NEGATIVE NEGATIVE Serum Alcohol < 10 <10 MG/DL My Orders Orders - RODRIGO HILL DO Cbc With Automated Diff (05/17/20 01:59) Magnesium (05/17/20 01:59) Chest 1 View, Ap/Pa Only (05/17/20 01:59) Ekg Tracing (05/17/20 01:59) Comprehensive Metabolic Panel (05/17/20 01:59) Myoglobin Serum (05/17/20 01:59) Protime With Inr (05/17/20 01:59) Partial Thromboplastin Time (05/17/20 01:59) O2 (05/17/20 01:59) Monitor-Rhythm Ecg Trace Only (05/17/20 01:59) Ed Iv/Invasive Line Start (05/17/20 01:59) Creatine Kinase (05/17/20 01:59) Creatine Kinase Mb (05/17/20 01:59) Lipase (05/17/20 01:59) Amylase (05/17/20 01:59) BNP (05/17/20 01:59) Nitroglycerin 0.4 Mg Btl 25's (Nitrostat (05/17/20 02:00) Aspirin Chewable Tablet (Baby Aspirin Ch (05/17/20 02:00) Erythrocyte Sedimentation Rate (05/17/20 01:59) Coronavirus Sars-Cov-2 So 2018 (05/17/20 01:59) Drug Screen Stat (Urine) (05/17/20 02:09) Hcg,Qualitative Serum (05/17/20 02:09) Ua Culture If Indicated (05/17/20 02:09) Alcohol (05/17/20 02:12) Hs C Reactive Protein (05/17/20 02:12) LDH (05/17/20 02:12) Procalcitonin (Pct) (05/17/20 02:12) Troponin I (05/17/20 02:12) Lorazepam Injection (Ativan Injection) (05/17/20 03:00) Ketorolac Injection (Toradol Injection) (05/17/20 03:15) Ekg Tracing (05/17/20 04:26) Troponin I (05/17/20 05:08) Medications Given in ED Current Medications Medications Dose Ordered Sig/Mikal Route Start Time Stop Time Status Last Admin Dose Admin Aspirin 324 mg ONCE ONCE PO 05/17/20 02:00 05/17/20 04:26 DC 05/17/20 02:40 324 MG Ketorolac Tromethamine 30 mg ONCE ONCE IVP 05/17/20 03:15 05/17/20 03:16 DC 05/17/20 04:42 30 MG Lorazepam 2 mg ONCE ONCE IVP 05/17/20 03:00 05/17/20 03:01 DC 05/17/20 03:05 2 MG Nitroglycerin 0.4 mg UD PRN SL 05/17/20 02:00 05/17/20 02:41 0.4 MG Vital Signs/I&O 05/17/20 05/17/20 05/17/20 05/17/20 02:18 02:18 02:18 03:51 Temp 36.9 Pulse 106 95 Resp 18 16 B/P (MAP) 157/110 (126) 131/82 (98) Pulse Ox 99 99 95 O2 Delivery Room Air Room Air Room Air Room Air Progress Progress Note : Progress Note PT SEEN IN COVID UNIT, PPE WORN AT ALL TIMES COVID TESTING PERFORMED GIVEN ASPIRIN AND NTG x 1 DEFIBRILLATOR INTERROGATION ATTEMPTED BUT WAS UNSUCCESSFUL PT INITIALLY RATED PAIN "10", LITERALLY A MINUTE LATER, SHE WAS THEN OFFERED NTG, AND SHE REFUSED AND SAID "I DON'T WANT TO " AND SAID SHE DIDN'T HAVE ANY CHEST PAIN AT ALL , THEN LITERALLY LESS THAN A MINUTE SHE STATES HAS CHEST PAIN OF "4" AND WANTS NTG. THEN IMMEDIATELY BECAME EXTREMELY ANXIOUS--ATIVAN GIVEN WITH MUCH IMPROVEMENT PT STATES CHEST PAIN IS BETTER BUT REFUSES ANYMORE. GIVEN TORADOL PT RESTED QUIETLY PT OBSERVED AND REPEAT EKG AND TROPONIN DONE 5-C/O CHEST PAIN--REPEAT EKG DONE--UNCHANGED. THEN IMMEDIATELY AFTER, SHE STATES SHE JUST WANTS SOMETHING TO MAKE HER SLEEP, AND PT WAS INFORMED THAT SHE HAD ALREADY BEEN GIVEN ATIVAN, AND THEN PT QUICKLY WENT BACK TO SLEEP/RESTING QUIETLY. REPEAT TROPONIN NEGATIVE PT WAS SYMPTOM-FREE A DISMISSAL Initial ECG Impression Date: May 17, 2020 Initial ECG Impression Time: 01:56 Initial ECG Rate: 105 Initial ECG Rhythm: S.Tach EKG : EKG Time: 04:28 Rate: 92 Rhythm: Normal Sinus ECG Comparisson: Unchanged Diagnostic Imaging Comments CXR--NO ACUTE PROCESS, PENDING RADIOLOGIST REVIEW Reviewed: Reviewed by Me Departure Communication (Admissions) HOME, REST TAKE YOUR MEDICATIONS PRESCRIBED FOLLOW UP WITH YOUR DR IN 2-3 DAYS FOR FURTHER CARE RETURN TO ER IF WORSE Impression Primary Impression: Chest wall pain Additional Impression: Anxiety Disposition: 01 HOME, SELF-CARE Condition: Improved Departure-Patient Inst. Referrals: MOUNIKA RIGGS MD (PCP/Family) Primary Care Physician FELECIA FORTUNE MD Patient Instructions: Anxiety, Adult (DC), Chest Pain (DC), Chest Pain That Is Not Caused by the Heart (DC), Costochondritis (DC) Add. Discharge Instructions: HOME, REST TAKE YOUR MEDICATIONS PRESCRIBED FOLLOW UP WITH DR. FORTUNE IN 2-3 DAYS FOR FURTHER CARE RETURN TO ER IF WORSE RODRIGO HILL DO May 17, 2020 02:17
[2020-05-17 02:31] LABS: BASOPHILS % (AUTO) 0 % (0-10); EOSINOPHILS # (AUTO) 0.3 10^3/uL (0.0-0.3); EOSINOPHILS % (AUTO) 2 % (0-10); HEMATOCRIT 40 % (35-52); HEMOGLOBIN 13.4 G/DL (11.5-16.0); LYMPHOCYTES # (AUTO) 4.7 X 10^3 (1.0-4.0); LYMPHOCYTES % (AUTO) 44 % (12-44); MEAN CORPUSCULAR HEMOGLOBIN 29 PG (25-34); MEAN CORPUSCULAR HGB CONC 33 G/DL (32-36); MEAN CORPUSCULAR VOLUME 87 FL (80-99); MEAN PLATELET VOLUME 8.9 FL (7.4-10.4); MONOCYTES # (AUTO) 0.7 X 10^3 (0.0-1.0); MONOCYTES % (AUTO) 6 % (0-12); NEUTROPHILS % (AUTO) 47 % (42-75); PLATELET COUNT 291 10^3/uL (130-400); RED CELL DISTRIBUTION WIDTH 15.7 % (10.0-14.5); WHITE BLOOD COUNT 10.6 10^3/uL (4.3-11.0)
[2020-05-17 02:32] LABS: BILIRUBIN,URINE NEGATIVE (NEGATIVE); CLARITY,URINE CLEAR; COLOR,URINE YELLOW; GLUCOSE, URINE (UA) NEGATIVE (NEGATIVE); KETONES,URINE NEGATIVE (NEGATIVE); LEUKOCYTE ESTERASE ,URINE NEGATIVE (NEGATIVE); NITRITE,URINE NEGATIVE (NEGATIVE); PH,URINE 6.5 (5-9); PROTEIN,URINE 2+ (NEGATIVE)
--- NOTE | 2020-05-17 02:33 | NUR ---
UNABLE TO INTERROGATE PACEMAKER USING [employer] DEVICE. PT REMEMBERS THAT SHE MAY HAVE HAD IT TURNED OFF AT [place] DUE TO WIRE MALFUNCTION IN THE PAST.
--- NOTE | 2020-05-17 02:40 | NUR ---
PT NOW REPORTING CHEST PAIN AT A ZERO, REFUSING NTG.
[2020-05-17 02:42] LABS: ALBUMIN 3.8 GM/DL (3.2-4.5)
[2020-05-17 02:43] LABS: CHLORIDE 104 MMOL/L (98-107); POTASSIUM 3.7 MMOL/L (3.6-5.0); SODIUM 140 MMOL/L (135-145)
[2020-05-17 02:44] LABS: AMYLASE 95 U/L (25-125)
[2020-05-17 02:45] LABS: GLUCOSE 106 MG/DL (70-105); TOTAL PROTEIN 6.8 GM/DL (6.4-8.2)
[2020-05-17 02:46] LABS: CARBON DIOXIDE 24 MMOL/L (21-32)
[2020-05-17 02:47] LABS: BILIRUBIN,TOTAL 0.2 MG/DL (0.1-1.0)
[2020-05-17 02:48] LABS: ALKALINE PHOSPHATASE 76 U/L (40-136)
[2020-05-17 02:49] LABS: AMPHETAMINE SCREEN, URINE NEGATIVE (NEGATIVE); BARBITURATE SCREEN URINE NEGATIVE (NEGATIVE); BENZODIAZEPINES SCREEN URINE NEGATIVE (NEGATIVE); CANNABINOID SCREEN, URINE NEGATIVE (NEGATIVE); COCAINE SCREEN URINE NEGATIVE (NEGATIVE); GFR ESTIMATED 33; METHADONE STAT NEGATIVE (NEGATIVE); METHAMPHETAMINE SCREEN URINE S NEGATIVE (NEGATIVE); OPIATE SCREEN URINE NEGATIVE (NEGATIVE); OXYCODONE STAT NEGATIVE (NEGATIVE); PROPOXYPHENE STAT NEGATIVE (NEGATIVE); TRICYCLIC ANTIDEPRESSANTS SCRE POSITIVE (NEGATIVE)
[2020-05-17 02:50] LABS: BUN/CREATININE RATIO 8
[2020-05-17 02:51] LABS: MAGNESIUM 1.9 MG/DL (1.6-2.4)
[2020-05-17 02:52] LABS: ALANINE AMINOTRANSFERASE 31 U/L (0-55); LIPASE 32 U/L (8-78)
[2020-05-17 02:53] LABS: CREATINE KINASE 117 U/L (29-168)
[2020-05-17 02:57] LABS: BACTERIA,URINE TRACE /HPF; RBC,URINE 0-2 /HPF; WBC,URINE 0-2 /HPF; YEAST,URINE FEW /HPF
[2020-05-17] MEDS ORDERED: LORazepam INJ 2 MG/ML (ATIVAN) VIAL IVP ONE (03:00)
[2020-05-17 03:07] LABS: INR 0.9 (0.8-1.4); PROTHROMBIN TIME PATIENT 12.3 SEC (12.2-14.7)
[2020-05-17] MEDS ORDERED: KETOROLAC 30 MG/ML VIAL IVP ONE (03:15)
[2020-05-17 03:51] VITALS: BP 131/82
--- NOTE | 2020-05-17 04:00 | NUR ---
ASSUMED CARE OF THIS PATIENT AT THIS TIME. REPORT FROM EDITH NAZARIO. PATIENT IS ALERT AND ORIENTED X4, INTRODUCED SELF TO PATIENT. PATIENT DENIES NEEDS AT THIS TIME. WILL CONTINUE TO MONITOR.
--- NOTE | 2020-05-17 05:30 | Diagnostic Imaging Report ---
INDICATION: Sore throat. COMPARISON: 04/10/2020 FINDINGS: Single frontal radiograph view of the chest was obtained and shows mild cardiomegaly. Pulmonary vasculature is mildly prominent as well. Lungs are clear. There is no large effusion or atelectasis. Left-sided AICD is noted. Osseous structures show no acute abnormalities. IMPRESSION:. Mild cardiomegaly and mild pulmonary vascular congestion. Dictated by: Dictated on workstation # [id number]
[2020-05-17 06:04] VITALS: BP 123/76
== END 2020-05-17 06:06 | disposition home or self-care (01) ==
LOC: EDUNIT# 01:54 → ER 01:56
DX: R07.89 Other chest pain (principal); F41.9 Anxiety disorder, unspecified; I10 Essential (primary) hypertension; K21.9 Gastro-esophageal reflux disease without esophagitis; E66.9 Obesity, unspecified; F31.9 Bipolar disorder, unspecified; Z95.810 Presence of automatic (implantable) cardiac defibrillator; Z88.8 Allergy status to other drugs, medicaments and biological substances; Z79.01 Long term (current) use of anticoagulants; Z79.52 Long term (current) use of systemic steroids; Z87.891 Personal history of nicotine dependence; Z87.820 Personal history of traumatic brain injury; Z68.41 Body mass index [BMI] 40.0-44.9, adult
CPT/HCPCS: 71045; 80053; 80306; 81000; 82150; 82550; 82553; 83615; 83690; 83735; 83874; 83880; 84145; 84484; 84703; 85025; 85610; 85652; 85730; 86141; 93005; 93041; 99284; G0480; U0002; 36415; 80320; 87635

== ENCOUNTER 2020-05-22 23:57 | Emergency (ER) | payer MEDICARE, MEDICAID ==
[~2020-05-22] VITALS: Ht 167 cm; Wt 128.0 kg
[2020-05-23 00:14] VITALS: BP 143/107
--- NOTE | 2020-05-23 00:14 | ED Lower Extremity ---
General Stated Complaint: BOTH LEGS SWOLLEN Source: patient Exam Limitations: no limitations History of Present Illness Date Seen by Provider: May 23, 2020 Time Seen by Provider: 00:00 Initial Comments Patient presents to ER by private conveyance with chief complaint of swelling bilateral lower extremities she does this morning and has not gone down. She d enies that she ever had. She has a history of atrial fibrillation on Eliquis. No history of DVTs. No chest pain shortness of breath fever chills cough redness pain in her legs. She does not wear compression stockings. She does not take diuretics. Allergies and Home Medications Allergies Coded Allergies: JIA Inhibitors (Verified Allergy, Severe, 05/22/19) ARB-Angiotensin Receptor Antagonist (Verified Allergy, Severe, 05/22/19) baclofen (Unverified Allergy, Unknown, 05/22/19) ON H&P phenazopyridine (Unverified Allergy, Unknown, 05/22/19) ON H&P Home Medications Albuterol Sulfate 8 Gm Hfa.aer.ad, 2 PUFF INH Q6H PRN for SHORTNESS OF BREATH, (Reported) Amlodipine Besylate 10 Mg Tablet, 10 MG PO DAILY, (Reported) Apixaban 5 Mg Tablet, 5 MG PO BID Prescribed by: RALPH DELCID on 11/01/18 185 Dicyclomine HCl 10 Mg Capsule, 10 MG PO QID PRN for abdominal pain/nausea Prescribed by: EDISON CHAMBERLAIN on 12/27/19 1936 Diphenhydramine HCl 25 Mg Capsule, 25 MG PO Q4H PRN for throat irritation Prescribed by: EDISON CHAMBERLAIN on 05/11/20 1239 Diphenoxylate HCl/Atropine 1 Each Tablet, 1 EACH PO BID PRN for DIARRHEA Prescribed by: ORESTES VELASCO on 11/29/19 2309 Doxycycline Hyclate 100 Mg Tablet, 100 MG PO BID Prescribed by: MOIZ MARLEY on 08/28/19 174 Famotidine 40 Mg Tablet, 40 MG PO DAILY Prescribed by: EDISON CHAMBERLAIN on 05/11/20 1239 Fluconazole 100 Mg Tablet, 100 MG PO Q48H Prescribed by: MOIZ MARLEY on 08/28/19 1746 Methylprednisolone 4 Mg Tab, 4 MG PO UD as directed per dose pack Prescribed by: ANTONIO CALLEJAS on 08/15/19 184 Metoprolol Tartrate 50 Mg Tablet, 50 MG PO BID Prescribed by: FELECIA FORTUNE on 07/24/15 0841 Prednisone 20 Mg Tab, 40 MG PO DAILY Prescribed by: ANTONIO CALLEJAS on 11/04/19 1383 Patient Home Medication List Home Medication List Reviewed: Yes Review of Systems Constitutional: No chills, No diaphoresis EENTM: No ear discharge, No ear pain Respiratory: No cough, No short of breath Cardiovascular: No chest pain, No edema Gastrointestinal: No abdominal pain, No nausea Genitourinary: No discharge, No dysuria Musculoskeletal: No back pain, No joint pain Skin: No pruritus, No rash Psychiatric/Neurological: Denies Headache, Denies Numbness All Other Systems Reviewed Negative Unless Noted: Yes Past Iodviyl-Aibuxi-Cvkwng Hx Patient Social History Alcohol Use: Denies Use Recreational Drug Use: Yes Drug of Choice: 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 PEG TUBE- REMOVED;UTERINE ABLATION) Abdominal, Section, Defibrillator, Gallbladder, Pacemaker Respiratory: Yes (ARDS-CODED; PNEUMOTHORAX 06/2015) Pneumonia, Chronic Bronchitis Currently Using CPAP: No Currently Using BIPAP: No Cardiac: Yes (PULMONARY EDEMA/CARDIAC CAUSE-R/T ATRIAL THROMBUS; CARDIAC ARREST;V-FIB ) Cardiomyopathy, Endocarditis, Hypertension, Valvular Heart Disease Neurological: Yes (encephalopathy-hypoxia, anoxic brain injury; POOR MEMORY) Reproductive Disorders: No Sexually Transmitted Disease: No Genitourinary: Yes Renal Failure Gastrointestinal: Yes Gastroesophageal Reflux Musculoskeletal: Yes (GAIT DISTURBANCE) Endocrine: No (OBESITY) HEENT: No Loss of Vision: Denies Hearing Impairment: Denies Cancer: No Psychosocial: Yes (per med record) Anxiety, Bipolar, Depression Integumentary: No Blood Disorders: Yes (ANEMIA) Family Medical History Patient reports no known family medical history. No Pertinent Family Hx Physical Exam Vital Signs Vital Signs - First Documented 05/23/20 00:14 Temp 36.5 Pulse 102 Resp 16 B/P (MAP) 143/107 (119) Pulse Ox 96 O2 Delivery Room Air Capillary Refill : Height, Weight, BMI Height: 5'3.00" Weight: 234lbs. 0oz. 106.178016tz; 42.00 BMI Method:Stated General Appearance: WD/WN, no apparent distress HEENT: PERRL/EOMI, normal ENT inspection Neck: full range of motion, supple, normal inspection Cardiovascular: normal peripheral pulses, regular rate, rhythm Respiratory: lungs clear, normal breath sounds, no respiratory distress, no accessory muscle use Gastrointestinal: normal bowel sounds, non tender Hips: bilateral hip non-tender, bilateral hip normal inspection, bilateral hip normal range of motion, bilateral hip no evidence of injury Legs: bilateral leg non-tender, bilateral leg normal inspection, bilateral leg normal range of motion, bilateral leg no evidence of injury, bilateral leg other (no evidence of edema, tenderness, erythema, warmth) Neurologic/Tendon: normal sensation, normal motor functions, normal tendon functions, responds to pain Neurologic/Psychiatric: alert, normal mood/affect, oriented x 3 Progress/Results/Core Measures Results/Orders Lab Results Laboratory Tests Test 05/23/20 00:05 Range/Units White Blood Count 8.3 4.3-11.0 10^3/uL Red Blood Count 4.52 4.35-5.85 10^6/uL Hemoglobin 13.1 11.5-16.0 G/DL Hematocrit 40 35-52 % Mean Corpuscular Volume 89 80-99 FL Mean Corpuscular Hemoglobin 29 25-34 PG Mean Corpuscular Hemoglobin Concent 33 32-36 G/DL Red Cell Distribution Width 15.8 H 10.0-14.5 % Platelet Count 329 130-400 10^3/uL Mean Platelet Volume 8.7 7.4-10.4 FL Neutrophils (%) (Auto) 49 42-75 % Lymphocytes (%) (Auto) 41 12-44 % Monocytes (%) (Auto) 8 0-12 % Eosinophils (%) (Auto) 2 0-10 % Basophils (%) (Auto) 1 0-10 % Neutrophils # (Auto) 4.0 1.8-7.8 X 10^3 Lymphocytes # (Auto) 3.4 1.0-4.0 X 10^3 Monocytes # (Auto) 0.6 0.0-1.0 X 10^3 Eosinophils # (Auto) 0.2 0.0-0.3 10^3/uL Basophils # (Auto) 0.1 0.0-0.1 10^3/uL Sodium Level 138 135-145 MMOL/L Potassium Level 3.9 3.6-5.0 MMOL/L Chloride Level 104 98-107 MMOL/L Carbon Dioxide Level 24 21-32 MMOL/L Anion Gap 10 5-14 MMOL/L Blood Urea Nitrogen 17 7-18 MG/DL Creatinine 2.05 H 0.60-1.30 MG/DL Estimat Glomerular Filtration Rate 34 BUN/Creatinine Ratio 8 Glucose Level 103 70-105 MG/DL Calcium Level 9.3 8.5-10.1 MG/DL Corrected Calcium 9.4 8.5-10.1 MG/DL Total Bilirubin 0.2 0.1-1.0 MG/DL Aspartate Amino Transf (AST/SGOT) 155 H 5-34 U/L Alanine Aminotransferase (ALT/SGPT) 174 H 0-55 U/L Alkaline Phosphatase 109 40-136 U/L B-Type Natriuretic Peptide 49.1 <100.0 PG/ML Total Protein 6.8 6.4-8.2 GM/DL Albumin 3.9 3.2-4.5 GM/DL My Orders Orders - ANTONIO CALLEJAS BNP (05/23/20 00:08) Cbc With Automated Diff (05/23/20 00:08) Comprehensive Metabolic Panel (05/23/20 00:08) Vital Signs/I&O 05/23/20 00:14 Temp 36.5 Pulse 102 Resp 16 B/P (MAP) 143/107 (119) Pulse Ox 96 O2 Delivery Room Air Progress Progress Note #1: Time: 00:15 Progress Note Patient accompanies someone else to the ER and states that she decided to check in because she was curious about swelling in her legs. This provider does not appreciate any edema or swelling erythema cellulitis. Patient started on Eliquis so a DVT is unlikely. Unremarkable clinical exam. We'll check some labs look for elevated BNP and if everything is normal we'll allow her to follow up outpatient with her primary care doctor. Progress Note #2: Time: 00:52 Progress Note Labs are at baseline. Patient hasn't no material deterioration during her ER stay. Aseptic vital signs. Regarding allow her to go home and follow-up with primary care. We'll encourage compression stockings. Departure Impression Primary Impression: Dependent edema Disposition: 01 HOME, SELF-CARE Condition: Stable Departure-Patient Inst. Decision time for Depature: 00:45 Referrals: MOUNIKA RIGGS MD (PCP/Family) Primary Care Physician Patient Instructions: Dependent Edema (DC) Add. Discharge Instructions: pc support specialist a set of compression stockings at the local pharmacy and wear them on the days that you have swelling. Follow-up with your primary care doctor. ANTONIO CALLEJAS May 23, 2020 00:14
--- OUTSIDE RECORDS SUMMARY | 2020-05-23 00:14 | XMS REPORT | Continuity of Care Document ---
Author Organization Unknown Address Unknown Phone Unavailable Allergies Active Description Code Type Severity Reaction Onset Reported/Identified Relationship to Patient Clinical Status Yes bacl bacl Moderate N/A 03/21/2015 Yes JIA Inhibitors [id number] Dr ug Allergy Severe N/A 05/22/2019 Yes ARB-Angiotensin Receptor Antagonist [id number] Drug Allergy Severe N/A 05/22/2019 Yes baclofen [id number] Drug Allergy Unknown N/A 05/22/2019 Yes phenazopyridine [id number] D rug Allergy Unknown N/A 05/22/2019 Medications [...] MAZARIEGOS, LISSET E Ot 425.4 03/27/2015 KAUR MAAZRIEGOS, LISSET E Ot 428.0 03/27/2015 KAUR MAZARIEGOS, [...] MAZARIEGOS, LISSET E Ot 348.1 04/12/2015 KAUR MAZARIEGSO, LISSET E Ot 348.3 1 04/12/2015 KAUR [...] TONG MAZARIEGOS, FELECIA Diaz Ot V58. [facility] 07/25/2015 NERISSA LAURA, BLANCO Mohan [...] APRIL A Ot V12.51 07/29/2015 GELLENDER DO, APRLI A Ot V12.53 07/29/2015 GELLENDER DO, APRIL [...] 09/04/2015 RALPH LÓPEZ MD Ot V58.61 12/01/2015 ORDRIGO HILL DO Ot E16.2 HYPOGLYCEMIA, UNSPECIFIED 12/01/2015 [...] INITIAL ENCOUNTER 08/05/2018 NIK CELIS Ot Z79.01 CAMPUS AIDE (CURRENT) USE OF ANTICOAGULANT 08/05/2018 PEDRO CELISIS Ot Z79.51 CAMPUS AIDE (CURRENT) USE OF INHALED STERO 08/05/2018 PEDRO CELISIS Ot Z87.01 PERSONAL HISTORY OF PNEUMONIA (RECURRENT 08/05/2018 NIK CELIS Ot Z87.891 PERSONAL HISTORY OF NICOTINE DEPENDENCE 08/05/2018 NIK CELIS Ot Z88.8 ALLERGY STATUS TO [facility] DRUG/MEDS/BIOL SUB 08/05/2018 PEDRO CELISIS [...] INITIAL ENCOUNTER 08/08/2018 NIK CELIS Ot Z79.01 HALF-WAY (CURRENT) USE OF ANTICOAGULANT 08/08/2018 PEDRO CELISIS Ot Z79.51 HALF-WAY (CURRENT) USE OF INHALED STERO 08/08/2018 PEDRO CELISIS Ot Z87.01 PERSONAL HISTORY OF PNEUMONIA (RECURRENT 08/08/2018 NIK CELIS Ot Z87.891 PERSONAL HISTORY OF NICOTINE DEPENDENCE 08/08/2018 NIK CELIS Ot Z88.8 ALLERGY STATUS TO OTH DRUG/MEDS/BIOL SUB 08/08/2018 NIK CELIS Ot Z93.0 TRACHEOSTOMY STATUS 08/08/2018 NIK CELSI Ot Z95.810 PRESENCE OF AUTOMATIC (IMPLANTABLE) CARD [...] 10/24/2018 FELECIA FORTUNE MD Ot Z79. 01 HALF-WAY (CURRENT) USE OF ANTICOAGULANT 11/01/2018 RALPH LÓPEZ [...] HEADACHE 11/01/2018 RALPH LÓPEZ MD, Ot Z79.01 CAMPUS AIDE (CURRENT) USE OF ANTICOAGULANT 11/01/2018 RALPH LÓPEZ MD Ot Z79.51 CAMPUS AIDE (CURRENT) USE OF INHALED STERO 11/01/2018 RALPH [...] LÓPEZ MD, Ot I16.0 HYPERTENSIVE URGENCY 11/03/2018 RAPLH LÓPEZ MD Ot I25.2 OLD MYOCARDIAL INFARCTION [...] HEADACHE 11/03/2018 RALPH LÓPEZ MD, Ot Z79.01 CAMPUS AIDE (CURRENT) USE OF ANTICOAGULANT 11/03/2018 RALPH LÓPEZ MD, Ot Z79.51 CAMPUS AIDE (CURRENT) USE OF INHALED STERO 11/03/2018 RALPH [...] HEADACHE 11/09/2018 RALPH LÓPEZ MD, Ot Z79.01 HALF-WAY (CURRENT) USE OF ANTICOAGULANT 11/09/2018 RALPH LÓPEZ MD Ot Z79.51 CAMPUS AIDE (CURRENT) USE OF INHALED STERO 11/09/2018 RALPH [...] R05 COUGH 01/01/2019 NIK CELIS Ot Z79.01 HALF-WAY (CURRENT) USE OF ANTICOAGULANT 01/01/2019 NIK CELIS Ot Z79.51 HALF-WAY (CURRENT) USE OF INHALED STERO 01/01/2019 LALITA NIK Ot Z87.01 PERSONAL HISTORY OF PNEUMONIA (RECURRENT 01/01/2019 LALITA NIK Ot Z87.448 PERSONAL HISTORY OF OTHER DISEASES OF UR 01/01/2019 NIK CELIS Ot Z87.820 PERSONAL HISTORY OF TRAUMATIC BRAIN INJU 01/01/2019 NIK CELIS Ot Z87.891 PERSONAL HISTORY OF NICOTINE DEPENDENCE 01/01/2019 NIK CELIS Ot Z88.8 ALLERGY STATUS TO [facility] DRUG/MEDS/BIOL SUB 01/01/2019 NIK CELIS [...] 01/05/2019 FELECIA FORTUNE MD Ot Z79. 01 CAMPUS AIDE (CURRENT) USE OF ANTICOAGULANT 01/06/2019 BLANCO BERMAN [...] 01/06/2019 FELECIA FORTUNE MD Ot Z79. 01 CAMPUS AIDE (CURRENT) USE OF ANTICOAGULANT 01/06/2019 FEDE AMARO [...] IN 01/06/2019 FEDE AMARO MD, Ot Z79.01 HALF-WAY (CURRENT) USE OF ANTICOAGULANT 01/06/2019 FEDE AMARO MD, Ot Z79.51 CAMPUS AIDE (CURRENT) USE OF INHALED STERO 01/06/2019 FEDE AMARO MD, Ot Z79.52 CAMPUS AIDE (CURRENT) USE OF SYSTEMIC STER 01/06/2019 FEDE [...] AMARO MD, Ot Z88.8 ALLERGY STATUS TO [facility] DRUG/MEDS/BIOL SUB 01/06/2019 FEDE AMARO [...] R05 COUGH 01/07/2019 NIK CELIS Ot Z79.01 HALF-WAY (CURRENT) USE OF ANTICOAGULANT 01/07/2019 NIK CELIS Ot Z79.51 HALF-WAY (CURRENT) USE OF INHALED STERO 01/07/2019 NIK CELIS Ot Z87.01 PERSONAL HISTORY OF PNEUMONIA (RECURRENT 01/07/2019 PEDRO CELISIS Ot Z87.448 PERSONAL HISTORY OF OTHER DISEASES OF UR 01/07/2019 DANIELNIK ANGULO Ot Z87.820 PERSONAL HISTORY OF TRAUMATIC BRAIN INJU 01/07/2019 DANIELNIK ANGULO Ot Z87.891 PERSONAL HISTORY OF NICOTINE DEPENDENCE 01/07/2019 DANIELNIK ANGULO Ot Z88.8 ALLERGY STATUS TO [facility] DRUG/MEDS/BIOL SUB 01/07/2019 NIK CELIS [...] IN 01/09/2019 FEDE AMARO MD Ot Z79.01 CAMPUS AIDE (CURRENT) USE OF ANTICOAGULANT 01/09/2019 FEDE AMARO MD Ot Z79.51 HALF-WAY (CURRENT) USE OF INHALED STERO 01/09/2019 FEDE AMARO MD, Ot Z79.52 HALF-WAY (CURRENT) USE OF SYSTEMIC STER 01/09/2019 FEDE [...] AMARO MD, Ot Z88.8 ALLERGY STATUS TO [facility] DRUG/MEDS/BIOL SUB 01/09/2019 FEDE AMARO [...] ELBOW 04/09/2019 DELIO ARIZA DO, Ot Z79.01 CAMPUS AIDE (CURRENT) USE OF ANTICOAGULANT 04/09/2019 DELIO ARIZA DO, Ot Z79.52 CAMPUS AIDE (CURRENT) USE OF SYSTEMIC STER 04/09/2019 DELIO ARIZA DO, Ot Z86.69 PERSONAL HISTORY OF DIS OF THE NERVOUS S 04/09/2019 DELIO ARIZA DO, Ot Z86.79 PERSONAL HISTORY OF OTHER DISEASES OF TH 04/09/2019 DELIO ARIZA DO, Ot Z87.01 PERSONAL HISTORY OF PNEUMONIA (RECURRENT 04/09/2019 DELIO RAIZA DO, Ot Z87.09 PERSONAL HISTORY OF OTHER DISEASES OF TH 04/09/2019 DELIO ARIZA DO Ot Z88.8 ALLERGY STATUS TO [facility] DRUG/MEDS/BIOL SUB 04/09/2019 DELIO ARIZA [...] 04/09/2019 FELECIA FORTUNE MD Ot Z79. 01 CAMPUS AIDE (CURRENT) USE OF ANTICOAGULANT 04/12/2019 DELIO ARIZA [...] ELBOW 04/12/2019 DELIO ARIZA DO, Ot Z79.01 CAMPUS AIDE (CURRENT) USE OF ANTICOAGULANT 04/12/2019 DELIO ARIZA DO, Ot Z79.52 CAMPUS AIDE (CURRENT) USE OF SYSTEMIC STER 04/12/2019 DELIO ARIZA DO, Ot Z86.69 PERSONAL HISTORY OF DIS OF THE NERVOUS S 04/12/2019 DELIO ARIZA DO, Ot Z86.79 PERSONAL HISTORY OF OTHER DISEASES OF 04/12/2019 DELIO ARIZA DO, Ot Z87.01 PERSONAL HISTORY OF PNEUMONIA (RECURRENT 04/12/2019 DELIO ARIZA DO, Ot Z87.09 PERSONAL HISTORY OF OTHER DISEASES OF 04/12/2019 DELIO ARIZA DO, Ot Z88.8 ALLERGY STATUS TO [facility] DRUG/MEDS/BIOL SUB 04/12/2019 DELIO ARIZA [...] 04/12/2019 EDISON CHAMBERLAIN MD, Ot Z79.0 1 CAMPUS AIDE (CURRENT) USE OF ANTICOAGULANT 04/12/2019 EDISON CHAMBERLAIN MD, Ot Z79.5 2 CAMPUS AIDE (CURRENT) USE OF SYSTEMIC STER 04/12/2019 EDISON [...] 04/16/2019 EDISON CHAMBERLAIN MD, Ot Z79.0 1 HALF-WAY (CURRENT) USE OF ANTICOAGULANT 04/16/2019 EDISON CHAMBERLAIN MD, Ot Z79.5 2 CAMPUS AIDE (CURRENT) USE OF SYSTEMIC STER 04/16/2019 EDISON [...] OTHER SPECIFIED POSTPROCEDURAL STATES 04/19/2019 LISA MARCELINO DEMURRAGE CLERK Ot D64 .9 ANEMIA, UNSPECIFIED 04/19/2019 MARCELINOLISA [...] FATIGUE 04/19/2019 LISA MARCELINO APRN Ot Z79.01 CAMPUS AIDE (CURRENT) USE OF ANTICOAGULANT 04/19/2019 LISA MARCELINO APRN Ot Z79.52 CAMPUS AIDE (CURRENT) USE OF SYSTEMIC STER 04/19/2019 LISA [...] RICHARD DO, VINITA L Ot Z79.0 1 CAMPUS AIDE (CURRENT) USE OF ANTICOAGULANT 04/20/2019 RICHARD DO, [...] RICHARD DO, VINITA L Ot Z79.0 1 CAMPUS AIDE (CURRENT) USE OF ANTICOAGULANT 04/25/2019 RICHARD DO, [...] DISEASE WITHOUT 05/05/2019 NIK CELIS Ot T82.198A [facility] COMPL OF OTHER CARDIAC ELECTRONIC D 05/05/2019 NIK CELIS Ot Z79.01 HALF-WAY (CURRENT) USE OF ANTICOAGULANT 05/05/2019 PEDRO CELISIS Ot Z79.52 HALF-WAY (CURRENT) USE OF SYSTEMIC STER 05/05/2019 NIK CELIS Ot Z86.79 PERSONAL HISTORY OF OTHER DISEASES OF TH 05/05/2019 NIK CELIS Ot Z87.01 PERSONAL HISTORY OF PNEUMONIA (RECURRENT 05/05/2019 NIK CELIS Ot Z88.8 ALLERGY STATUS TO [facility] DRUG/MEDS/BIOL SUB 05/05/2019 NIK CELIS [...] Ot I50.1 LEFT VENTRICULAR FAILURE 05/06/2019 BLANCO EBRMAN Ot R09.2 RESPIRATORY ARREST 05/06/2019 BLANCO BERMAN [...] 05/06/2019 FELECIA FORTUNE MD Ot Z79. 01 HALF-WAY (CURRENT) USE OF ANTICOAGULANT 05/09/2019 PEDRO CELISIS Ot D64.9 ANEMIA, UNSPECIFIED 05/09/2019 BERNKEV, NIK Ot F31.9 BIPOLAR DISORDER, UNSPECIFIED 05/09/2019 BERNPEDRO ANGULOIS Ot F41.9 ANXIETY DISORDER, UNSPECIFIED 05/09/2019 BERNPEDRO ANGULOIS Ot I25.2 OLD MYOCARDIAL INFARCTION 05/09/2019 BERNKEV NIK Ot I42.9 CARDIOMYOPATHY, UNSPECIFIED 05/09/2019 BERNKEV, NIK Ot K21.9 GASTRO-ESOPHAGEAL REFLUX DISEASE WITHOUT 05/09/2019 PEDRO CELISIS Ot T82.198A [facility] COMPL OF OTHER CARDIAC ELECTRONIC D 05/09/2019 PEDRO CELISIS Ot Z79.01 HALF-WAY (CURRENT) USE OF ANTICOAGULANT 05/09/2019 BERNKEV, NIK Ot Z79.52 CAMPUS AIDE (CURRENT) USE OF SYSTEMIC STER 05/09/2019 PEDRO [...] 05/10/2019 ALEX BARRERA MD Ot Z79.0 1 HALF-WAY (CURRENT) USE OF ANTICOAGULANT 05/10/2019 ALEX BARRERA MD Ot Z79.8 99 OTHER HALF-WAY (CURRENT) DRUG THERAPY 05/10/2019 ALEX BARRERA MD [...] MD, Ot F41.9 ANXIETY DISORDER, UNSPECIFIED 05/10/2019 AELX BARRERA MD Ot I42.9 CARDIOMYOPATHY, UNSPECIFIED 05/10/2019 ALEX BARRERA MD Ot N19 UNSPECIFIED KIDNEY FAILURE 05/10/2019 ALEX BARRERA MD Ot T82.118A BREAKDOWN (MECHANICAL) OF CARDIAC ELECTR 05/10/2019 ALEX BARRERA MD Ot Z79.0 1 HALF-WAY (CURRENT) USE OF ANTICOAGULANT 05/10/2019 ALEX BARRERA MD Ot Z79.8 99 OTHER CAMPUS AIDE (CURRENT) DRUG THERAPY 05/10/2019 ALEX BARRERA MD [...] DISEASE WITHOUT 05/11/2019 PEDRO CELISIS Ot T82.198A [facility] COMPL OF OTHER CARDIAC ELECTRONIC D 05/11/2019 PEDRO CELISIS Ot Z79.01 HALF-WAY (CURRENT) USE OF ANTICOAGULANT 05/11/2019 PEDRO CELISIS Ot Z79.52 CAMPUS AIDE (CURRENT) USE OF SYSTEMIC STER 05/11/2019 PEDRO CELISIS Ot Z86.79 PERSONAL HISTORY OF OTHER DISEASES OF TH 05/11/2019 PEDRO CELISIS Ot Z87.01 PERSONAL HISTORY OF PNEUMONIA (RECURRENT 05/11/2019 PEDRO CELISIS Ot Z88.8 ALLERGY STATUS TO [facility] DRUG/MEDS/BIOL SUB 05/11/2019 PEDRO CELISIS [...] 05/11/2019 ANTONIO CALLEJAS MD Ot Z79. 01 CAMPUS AIDE (CURRENT) USE OF ANTICOAGULANT 05/11/2019 ANTONIO CALLEJAS MD Ot Z86. 79 PERSONAL HISTORY OF OTHER DISEASES OF TH 05/11/2019 ANTONIO CALLEJAS MD Ot Z87. 01 PERSONAL HISTORY OF PNEUMONIA (RECURRENT 05/11/2019 ANTONIO CALLEJAS MD Ot Z87. 09 PERSONAL HISTORY OF OTHER DISEASES OF TH 05/11/2019 ANTONIO CALLEJAS MD Ot Z88. 8 ALLERGY STATUS TO [facility] DRUG/MEDS/BIOL SUB 05/11/2019 ANTONIO CALLEJAS [...] 05/14/2019 ANTONIO CALLEJAS MD Ot Z79. 01 HALF-WAY (CURRENT) USE OF ANTICOAGULANT 05/14/2019 ANTONIO CALLEJAS MD Ot Z86. 79 PERSONAL HISTORY OF OTHER DISEASES OF TH 05/14/2019 ANTONIO CALLEJAS MD, Ot Z87. 01 PERSONAL HISTORY OF PNEUMONIA (RECURRENT 05/14/2019 ANTONIO CALLEJAS MD, Ot Z87. 09 PERSONAL HISTORY OF OTHER DISEASES OF TH 05/14/2019 ANTONIO CALLEJAS MD Ot Z88. 8 ALLERGY STATUS TO OTH DRUG/MEDS/BIOL SUB 05/14/2019 ANTONIO CALLEAJS MD Ot Z93. 0 TRACHEOSTOMY STATUS 05/14/2019 [...] K21.9 GASTRO-ESOPHAGEAL REFLUX DISEASE WITHOUT 06/04/2019 MARIBEL MAZARIGEOS, RALPH Mcelroy Ot R07.89 OTHER CHEST PAIN [...] OF AUTOMATIC (IMPLANTABLE) CARD 07/12/2019 BLAYNE BERRY [facility] Ot M25.462 EFFUSION, LEFT KNEE 07/28/2019 FEDE [...] 07/28/2019 FELECIA FORTUNE MD Ot Z79. 01 CAMPUS AIDE (CURRENT) USE OF ANTICOAGULANT 07/28/2019 KING BLAYNE [...] Guthrie Ot Z88. 8 ALLERGY STATUS TO [facility] DRUG/MEDS/BIOL SUB 07/29/2019 ORESTES VELASCO [...] F41. 9 ANXIETY DISORDER, UNSPECIFIED 08/17/2019 ANTONIO CALLEAJS MD Ot I10 ESSENTIAL (PRIMARY) HYPERTENSION 08/17/2019 [...] UNSPECIFIED 08/28/2019 MOIZ MARLEY DO Ot Z79.01 CAMPUS AIDE (CURRENT) USE OF ANTICOAGULANT 08/28/2019 MOIZ MARLEY [...] UNSPECIFIED 08/30/2019 MARLEY DO, MOIZ Ot Z79.01 CAMPUS AIDE (CURRENT) USE OF ANTICOAGULANT 08/30/2019 MARLEY DO, [...] 08/31/2019 EDISON CHAMBERLAIN MD Ot Z79.0 1 HALF-WAY (CURRENT) USE OF ANTICOAGULANT 08/31/2019 EDISON CHAMBERLAIN [...] 09/05/2019 EDISON CHAMBERLAIN MD, Ot Z79.0 1 HALF-WAY (CURRENT) USE OF ANTICOAGULANT 09/05/2019 EDISON CHAMBERLAIN MD, Ot Z87.0 9 PERSONAL HISTORY OF OTHER DISEASES OF TH 09/05/2019 EDISON CHAMBERLAIN MD, Ot Z87.8 20 PERSONAL HISTORY OF TRAUMATIC BRAIN INJU 09/05/2019 EDISON CHAMBERLAIN MD, Ot Z88.8 ALLERGY STATUS TO [facility] DRUG/MEDS/BIOL SUB 09/05/2019 EDISON CHAMBERLAIN MD, Ot Z93.0 TRACHEOSTOMY STATUS 09/05/2019 EDISON CHAMBERLAIN MD, Ot Z95.8 10 PRESENCE OF AUTOMATIC (IMPLANTABLE) CARD 09/12/2019 PATRICK BROWN Esperanza DEMURRAGE CLERK Ot M25.571 PAIN IN RIGHT ANKLE AND [...] 10/23/2019 HECTOR LADD DO Ot Z79. 01 HALF-WAY (CURRENT) USE OF ANTICOAGULANT 10/23/2019 HECTOR LADD DO Ot Z79. 52 CAMPUS AIDE (CURRENT) USE OF SYSTEMIC STER 10/23/2019 HECTOR [...] 11/29/2019 ORESTES VELASCO MD Ot Z79. 01 CAMPUS AIDE (CURRENT) USE OF ANTICOAGULANT 11/29/2019 ORESTES VELASCO [...] 428. 0 CONGESTIVE HEART FAILURE NOS 11/29/2019 [facility], BLANCO Mohan Ot G93.1 ANOXIC BRAIN DAMAGE, NOT ELSEWHERE CLASS 11/29/2019 [facility], BLANCO K Ot I10 ESSENTIAL (PRIMARY) HYPERTENSION 11/29/2019 [facility], BLANCO K Ot I50.1 LEFT VENTRICULAR FAILURE 11/29/2019 [facility], BLANCO K Ot R09.2 RESPIRATORY ARREST 11/29/2019 [facility], BLANCO K Ot G93.1 ANOXIC BRAIN DAMAGE, NOT ELSEWHERE CLASS 11/29/2019 [facility], BLANCO K Ot I11.0 HYPERTENSIVE HEART DISEASE WITH HEART FA 11/29/2019 [facility], BLANCO Mohan Ot I50.1 LEFT VENTRICULAR FAILURE, UNSPECIFIED 11/29/2019 [facility], BLANCO Mohan Ot I51.3 INTRACARDIAC THROMBOSIS, [...] 11/29/2019 FELECIA FORTUNE MD Ot Z79. 01 HALF-WAY (CURRENT) USE OF ANTICOAGULANT 11/29/2019 BLAYNE BERRY [...] KRISTA MAZARIEGOS, ORESTES A Ot Z79. 01 HALF-WAY (CURRENT) USE OF ANTICOAGULANT 12/04/2019 KRISTA MAZARIEGOS, [...] 12/27/2019 EDISON CHAMBERLAIN MD Ot Z79.0 1 HALF-WAY (CURRENT) USE OF ANTICOAGULANT 12/27/2019 EDISON CHAMBERLAIN MD Ot Z79.5 2 HALF-WAY (CURRENT) USE OF SYSTEMIC STER 12/27/2019 EDISON CHAMBERLAIN MD Ot Z88.8 ALLERGY STATUS TO OTH DRUG/MEDS/BIOL SUB 12/27/2019 EDISON CHAMBERLAIN MD Ot Z93.0 TRACHEOSTOMY STATUS 12/27/2019 EDISON CHAMBERLAIN MD Ot Z95.8 10 PRESENCE OF AUTOMATIC (IMPLANTABLE) CARD 02/05/2020 HECTOR LADD DO Ot I10 ESSENTIAL (PRIMARY) HYPERTENSION 02/05/2020 HECTOR LADD DO Ot R51 HEADACHE 02/05/2020 HECTOR LADD DO Ot Z79. 01 CAMPUS AIDE (CURRENT) USE OF ANTICOAGULANT 02/05/2020 HECTOR LADD DO Ot Z79. 52 CAMPUS AIDE (CURRENT) USE OF SYSTEMIC STER 02/05/2020 JULEE [...] 02/15/2020 ROVENSTINE DO, ALPESH Wright Ot T82.198A [facility] COMPL OF OTHER CARDIAC ELECTRONIC D 02/15/2020 ROVENSTINE DO, ALPESH Wright Ot Z79.01 CAMPUS AIDE (CURRENT) USE OF ANTICOAGULANT 02/15/2020 ROVENSTINE DO, ALPESH Wright Ot Z86.74 PERSONAL HISTORY OF SUDDEN CARDIAC ARRES 02/15/2020 ROVENSTINE DO, ALPESH Wright Ot Z88.5 ALLERGY STATUS TO NARCOTIC AGENT STATUS 02/15/2020 ROVENSTINE DO, ALPESH Wright Ot Z88.8 ALLERGY STATUS TO OTH DRUG/MEDS/BIOL SUB 02/15/2020 ROVENSTINE DO, ALEPSH Wright Ot Z93.0 TRACHEOSTOMY STATUS 02/20/2020 ROVENSTINE DO, ALPESH Wright Ot F31.9 BIPOLAR DISORDER, UNSPECIFIED 02/20/2020 ROVENSTINE DO, ALPESH Wright Ot F41.9 ANXIETY DISORDER, UNSPECIFIED 02/20/2020 ROVENSTINE DO, ALPESH Wright Ot I11.9 HYPERTENSIVE HEART DISEASE WITHOUT HEART 02/20/2020 ROVENSTINE DO, ALPESH Wright Ot I42.9 CARDIOMYOPATHY, UNSPECIFIED 02/20/2020 ROVENSTINE DO, ALPESH Wright Ot J42 UNSPECIFIED CHRONIC BRONCHITIS 02/20/2020 ROVENSTINE DO, ALPESH Wright Ot T82.198A [facility] COMPL OF OTHER CARDIAC ELECTRONIC D 02/20/2020 ROVENSTINE DO, ALPESH Wright Ot Z79.01 HALF-WAY (CURRENT) USE OF ANTICOAGULANT 02/20/2020 ROVENSTINE DO, ALPESH Wright Ot Z86.74 PERSONAL HISTORY OF SUDDEN CARDIAC ARRES 02/20/2020 ROVENSTINE DO, ALPESH Wright Ot Z88.5 ALLERGY STATUS TO NARCOTIC AGENT STATUS 02/20/2020 ROVENSTINE DO, ALPESH Wright Ot Z88.8 ALLERGY STATUS TO OTH DRUG/MEDS/BIOL SUB 02/20/2020 ROVENSTINE DO, ALPESH Wright Ot Z93.0 TRACHEOSTOMY STATUS 02/22/2020 [facility], OLLIE Zimmerman Ot D68.59 OTHER PRIMARY THROMBOPHILIA 02/22/2020 [facility], OLLIE Zimmerman Ot E66.01 MORBID (SEVERE) OBESITY DUE TO EXCESS CA 02/22/2020 [facility], OLLIE Zimmerman Ot I49.9 CARDIAC ARRHYTHMIA, UNSPECIFIED 02/22/2020 [facility], OLLIE Zimmerman Ot K02.9 DENTAL CARIES, UNSPECIFIED 02/22/2020 [facility], OLLIE Zimmerman Ot N83.01 FOLLICULAR CYST OF RIGHT OVARY 02/22/2020 [facility], OLLIE Zimmerman Ot R10.2 PELVIC AND PERINEAL PAIN 02/22/2020 [facility], OLLIE Zimmerman Ot R10.31 RIGHT LOWER QUADRANT PAIN 02/22/2020 [facility], OLLIE Zimmerman Ot Z68.41 BODY MASS INDEX (BMI) 40.0-44.9, ADULT 02/22/2020 [facility], OLLIE Zimmerman Ot Z79.01 CAMPUS AIDE (CURRENT) USE OF ANTICOAGULANT 02/22/2020 [facility], OLLIE Zimmerman Ot Z95.0 PRESENCE OF CARDIAC PACEMAKER 02/26/2020 [facility], OLLIE Zimmerman Ot D68.59 OTHER PRIMARY THROMBOPHILIA 02/26/2020 [facility], OLLIE Zimmerman Ot E66.01 MORBID (SEVERE) OBESITY DUE TO EXCESS CA 02/26/2020 [facility] DO, OLLIE Zimmerman Ot I49.9 CARDIAC ARRHYTHMIA, UNSPECIFIED 02/26/2020 [facility], OLLIE Zimmerman Ot K02.9 DENTAL CARIES, UNSPECIFIED 02/26/2020 [facility], OLLIE Zimmerman Ot N83.01 FOLLICULAR CYST OF RIGHT OVARY 02/26/2020 [facility], OLLIE Zimmerman Ot R10.2 PELVIC AND PERINEAL PAIN 02/26/2020 [facility], OLLIE Zimmerman Ot R10.31 RIGHT LOWER QUADRANT PAIN 02/26/2020 NINA TINSLEY OLLIE Erasmo Ot Z68.41 BODY MASS INDEX (BMI) 40.0-44.9, ADULT 02/26/2020 NINA DO OLLIE Zimmerman Ot Z79.01 HALF-WAY (CURRENT) USE OF ANTICOAGULANT 02/26/2020 NINA TINSLEY [...] 03/01/2020 FELECIA FORTUNE MD Ot Z79. 01 HALF-WAY (CURRENT) USE OF ANTICOAGULANT 03/01/2020 BLAYNE BERRY JORDON Ot M25.462 EFFUSION, LEFT KNEE 03/01/2020 BROWN NGUYEN DEMURRAGE CLERK Ot M25.571 PAIN IN RIGHT ANKLE AND JOINTS OF RIGHT 04/04/2020 [facility], OLLIE H Ot D68.59 OTHER PRIMARY THROMBOPHILIA 04/04/2020 [facility], OLLIE Zimmerman Ot E66.01 MORBID (SEVERE) OBESITY DUE TO EXCESS CA 04/04/2020 [facility], OLLIE Zimmerman Ot I49.9 CARDIAC ARRHYTHMIA, UNSPECIFIED 04/04/2020 [facility] Ot K02.9 DENTAL CARIES, UNSPECIFIED 04/04/2020 [facility] Ot N83.01 FOLLICULAR CYST OF RIGHT OVARY 04/04/2020 [facility], OLLIE Zimmerman Ot R10.2 PELVIC AND PERINEAL PAIN 04/04/2020 [facility], OLLIE Zimmerman Ot R10.31 RIGHT LOWER QUADRANT PAIN 04/04/2020 [facility], OLLIE Erasmo Ot Z68.41 BODY MASS INDEX (BMI) 40.0-44.9, ADULT 04/04/2020 [facility], OLLIE Zimmerman Ot Z79.01 HALF-WAY (CURRENT) USE OF ANTICOAGULANT 04/04/2020 [facility] Ot Z95.0 PRESENCE OF CARDIAC PACEMAKER 04/08/2020 ANTONIO CALLEJAS MD Ot F17.210 NICOTINE DEPENDENCE, CIGARETTES, UNCOMPL 04/08/2020 ANTONIO CALLEJAS MD Ot I11. 0 HYPERTENSIVE HEART DISEASE WITH HEART FA 04/08/2020 ANTONIO CALLEJAS MD Ot I50. 9 HEART FAILURE, UNSPECIFIED 04/08/2020 ANTONIO CALLEJAS MD Ot R07. 89 OTHER CHEST PAIN 04/08/2020 ANTONIO CALLEJAS MD Ot Z79. 01 HALF-WAY (CURRENT) USE OF ANTICOAGULANT 04/08/2020 ANTONIO CALLEJAS MD Ot Z79. 52 CAMPUS AIDE (CURRENT) USE OF SYSTEMIC STER 04/08/2020 ANTONIO CALLEJAS MD Ot Z87.820 PERSONAL HISTORY OF TRAUMATIC BRAIN INJU 04/08/2020 ANTONIO CALLEJAS MD Ot Z88. 8 ALLERGY STATUS TO OTH DRUG/MEDS/BIOL SUB 04/08/2020 ANTONIO CALLEJAS MD Ot Z95.810 PRESENCE OF AUTOMATIC (IMPLANTABLE) CARD 04/10/2020 ANTONIO CALLEJAS MD Ot F17.210 NICOTINE DEPENDENCE, CIGARETTES, UNCOMPL 04/10/2020 ANTONIO CALLEJAS MD Ot I11. 0 HYPERTENSIVE HEART DISEASE WITH HEART FA 04/10/2020 ANTONIO CALLEJAS MD Ot I50. 9 HEART FAILURE, UNSPECIFIED 04/10/2020 ANTONIO CALLEJAS MD Ot R07. 89 OTHER CHEST PAIN 04/10/2020 ANTONIO CALLEJAS MD Ot Z79. 01 CAMPUS AIDE (CURRENT) USE OF ANTICOAGULANT 04/10/2020 ANTONIO CALLEJAS MD Ot Z79. 52 HALF-WAY (CURRENT) USE OF SYSTEMIC STER 04/10/2020 ANTONIO CALLEJAS MD Ot Z87.820 PERSONAL HISTORY OF TRAUMATIC BRAIN INJU 04/10/2020 ANTONIO CALLEJAS MD Ot Z88. 8 ALLERGY STATUS TO OTH DRUG/MEDS/BIOL SUB 04/10/2020 ANTONIO CALLEJAS MD Ot Z95.810 PRESENCE OF AUTOMATIC (IMPLANTABLE) CARD 04/10/2020 HECTOR LADD DO Ot I10 ESSENTIAL (PRIMARY) HYPERTENSION 04/10/2020 HECTOR LADD DO Ot R07. 2 PRECORDIAL PAIN 04/10/2020 HECTOR LADD DO Ot R07. 9 CHEST PAIN, UNSPECIFIED 04/10/2020 HECTOR LADD DO Ot Z79. 01 HALF-WAY (CURRENT) USE OF ANTICOAGULANT 04/10/2020 HECTOR LADD DO Ot Z79. 52 CAMPUS AIDE (CURRENT) USE OF SYSTEMIC STER 04/10/2020 HECTOR LADD DO Ot Z87.820 PERSONAL HISTORY OF TRAUMATIC BRAIN INJU 04/10/2020 HECTOR LADD DO Ot Z88. 8 ALLERGY STATUS TO OTH DRUG/MEDS/BIOL SUB 04/10/2020 HECTOR LADD DO Ot Z95.810 PRESENCE OF AUTOMATIC (IMPLANTABLE) CARD 04/14/2020 HECTOR LADD DO Ot I10 ESSENTIAL (PRIMARY) HYPERTENSION 04/14/2020 JULEE HECTOR TINSLEY Ot R07. 2 PRECORDIAL PAIN 04/14/2020 HECTOR LADD DO Ot R07. 9 CHEST PAIN, UNSPECIFIED 04/14/2020 JULEE DO HECTOR B Ot Z79. 01 CAMPUS AIDE (CURRENT) USE OF ANTICOAGULANT 04/14/2020 HECTOR LADD DO Ot Z79. 52 CAMPUS AIDE (CURRENT) USE OF SYSTEMIC STER 04/14/2020 JULEE HECTOR TINSLEY Ot Z87.820 PERSONAL HISTORY OF TRAUMATIC BRAIN INJU 04/14/2020 JULEE HECTOR TINSLEY Ot Z88. 8 ALLERGY STATUS TO OTH DRUG/MEDS/BIOL SUB 04/14/2020 JULEE HECTOR TINSLEY Ot Z95.810 PRESENCE OF AUTOMATIC (IMPLANTABLE) CARD 04/25/2020 FELECIA FORTUNE MD Ot I08. 1 RHEUMATIC DISORDERS OF BOTH MITRAL AND T 04/25/2020 FELECIA FORTUNE MD Ot I10 ESSENTIAL (PRIMARY) HYPERTENSION 04/25/2020 FELECIA FORTUNE MD Ot R00. 1 BRADYCARDIA, UNSPECIFIED 05/11/2020 EDISON CHAMBERLAIN MD, Ot I10 ESSENTIAL (PRIMARY) HYPERTENSION 05/11/2020 EDISON CHAMBERLAIN MD Ot K21.9 GASTRO-ESOPHAGEAL REFLUX DISEASE WITHOUT 05/11/2020 EDISON CHAMBERLAIN MD Ot R09.8 9 OTH SYMPTOMS AND SIGNS INVOLVING THE CIR 05/11/2020 EDISON CHAMBERLAIN MD, Ot T78.1XXA OTH ADVERSE FOOD REACTIONS, NOT ELSEWHER 05/11/2020 EDISON CHAMBERLAIN MD, Ot Z79.0 1 CAMPUS AIDE (CURRENT) USE OF ANTICOAGULANT 05/11/2020 EDISON CHAMBERLAIN MD Ot Z79.5 2 CAMPUS AIDE (CURRENT) USE OF SYSTEMIC STER 05/11/2020 EDISON CHAMBERLAIN MD, Ot Z87.8 91 PERSONAL HISTORY OF NICOTINE DEPENDENCE 05/11/2020 EDISON CHAMBERLAIN MD, Ot Z88.8 ALLERGY STATUS TO OTH DRUG/MEDS/BIOL SUB 05/11/2020 EDISON CHAMBERLAIN MD Ot Z95.8 10 PRESENCE OF AUTOMATIC (IMPLANTABLE) CARD 05/11/2020 BLANCO BERMAN Ot 401.9 HYPERTENSION NOS 05/11/2020 SMITH-ISHA PA, BLANCO K Ot 425.4 PRIM CARDIOMYOPATHY NEC 05/11/2020 [facility], BLANCO K Ot 427.5 CARDIAC ARREST 05/11/2020 [facility], BLANCO K Ot 428.0 CONGESTIVE HEART FAILURE NOS 05/11/2020 TONG MAZARIEGOS, FELECIA Diaz Ot 397. 0 TRICUSPID VALVE DISEASE 05/11/2020 TONG MAZARIEGOS, FELECIA Diaz Ot 401. 9 HYPERTENSION NOS 05/11/2020 TONG MAZARIEGOS, FELECIA Diaz Ot 425. 4 PRIM CARDIOMYOPATHY NEC 05/11/2020 TONG MAZARIEGOS, FELECIA Diaz Ot 428. 0 CONGESTIVE HEART FAILURE NOS 05/11/2020 [facility], BLANCO K Ot G93.1 ANOXIC BRAIN DAMAGE, NOT ELSEWHERE CLASS 05/11/2020 [facility] BLANCO LAURA K Ot I10 ESSENTIAL (PRIMARY) HYPERTENSION 05/11/2020 [facility] BLANCO LAURA Ot I50.1 LEFT VENTRICULAR FAILURE 05/11/2020 [facility] BLANCO LAURA Ot R09.2 RESPIRATORY ARREST 05/11/2020 [facility], [place] Kimberlee Ot G93.1 ANOXIC BRAIN DAMAGE, NOT ELSEWHERE CLASS 05/11/2020 [facility], [place] K Ot I11.0 HYPERTENSIVE HEART DISEASE WITH HEART FA 05/11/2020 [facility] [place] LAURA Ot I50.1 LEFT VENTRICULAR FAILURE, UNSPECIFIED 05/11/2020 [facility] [place] LA[facility]A Ot I51.3 INTRACARDIAC THROMBOSIS, NOT ELSEWHERE C 05/11/2020 FELECIA FORTUNE MD Ot I08. 3 COMB RHEUMATIC DISORD OF MITRAL, AORTIC 05/11/2020 FELECIA FORTUNE MD Ot I10 ESSENTIAL (PRIMARY) HYPERTENSION 05/11/2020 FELECIA FORTUNE MD Ot I25. 2 OLD MYOCARDIAL INFARCTION 05/11/2020 FELECIA FORTUNE MD Ot I42. 9 CARDIOMYOPATHY, UNSPECIFIED 05/11/2020 FELECIA FORTUNE MD Ot R00. 1 BRADYCARDIA, UNSPECIFIED 05/11/2020 FELECIA FORTUNE MD Ot Z79. 01 HALF-WAY (CURRENT) USE OF ANTICOAGULANT 05/11/2020 BLAYNE BERRY Ot M25.462 EFFUSION, LEFT KNEE 05/11/2020 BROWN NGUYEN APRN Ot M25.571 PAIN IN RIGHT ANKLE AND JOINTS OF RIGHT 05/11/2020 FELECIA FORTUNE MD Ot I08. 1 RHEUMATIC DISORDERS OF BOTH MITRAL AND T 05/11/2020 FELECIA FORTUNE MD Ot I10 ESSENTIAL (PRIMARY) HYPERTENSION 05/11/2020 FELECIA FORTUNE MD Ot R00. 1 BRADYCARDIA, UNSPECIFIED 05/12/2020 FELECIA FORTUNE MD Ot I08. 1 RHEUMATIC DISORDERS OF BOTH MITRAL AND T 05/12/2020 FELECIA FORTUNE MD Ot I10 ESSENTIAL (PRIMARY) HYPERTENSION 05/12/2020 FELECIA FORTUNE MD Ot R00. 1 BRADYCARDIA, UNSPECIFIED 05/12/2020 FELECIA FORTUNE MD Ot I08. 1 RHEUMATIC DISORDERS OF BOTH MITRAL AND T 05/12/2020 FELECIA FORTUNE MD, Ot I10 ESSENTIAL (PRIMARY) HYPERTENSION 05/12/2020 FELECIA FORTUNE MD Ot R00. 1 BRADYCARDIA, UNSPECIFIED 05/14/2020 EDISON CHAMBERLAIN MD, Ot I10 ESSENTIAL (PRIMARY) HYPERTENSION 05/14/2020 EDISON CHAMBERLAIN MD, Ot K21.9 GASTRO-ESOPHAGEAL REFLUX DISEASE WITHOUT 05/14/2020 EDISON CHAMBERLAIN MD, Ot R09.8 9 OTH SYMPTOMS AND SIGNS INVOLVING THE CIR 05/14/2020 EDISON CHAMBERLAIN MD, Ot T78.1XXA OTH ADVERSE FOOD REACTIONS, NOT ELSEWHER 05/14/2020 EDISON CHAMBERLAIN MD, Ot Z79.0 1 CAMPUS AIDE (CURRENT) USE OF ANTICOAGULANT 05/14/2020 EDISON CHAMBERLAIN MD, Ot Z79.5 2 HALF-WAY (CURRENT) USE OF SYSTEMIC STER 05/14/2020 EDISON CHAMBERLAIN MD, Ot Z87.8 91 PERSONAL HISTORY OF NICOTINE DEPENDENCE 05/14/2020 EDISON CHAMBERLAIN MD, Ot Z88.8 ALLERGY STATUS TO OT DRUG/MEDS/BIOL SUB 05/14/2020 EDISON CHAMBERLAIN MD, Ot Z95.8 10 PRESENCE OF AUTOMATIC (IMPLANTABLE) CARD 05/15/2020 BLANCO BERMAN Ot 401.9 HYPERTENSION NOS 05/15/2020 [place]AN[place] BERMAN Ot 425.4 PRIM CARDIOMYOPATHY NEC 05/15/2020 [place] BERMAN Ot 427.5 CARDIAC ARREST 05/15/2020 [facility] [place] K Ot 428.0 CONGESTIVE HEART FAILURE NOS 05/15/2020 FELECIA FORTUNE MD Ot 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 9 HYPERTENSION NOS 05/15/2020 TONG MAZARIEGOS, FELECIA Diaz Ot 425. 4 PRIM CARDIOMYOPATHY NEC 05/15/2020 FELECIA FORTUNE MD Ot 428. 0 CONGESTIVE HEART FAILURE NOS 05/15/2020 [facility], [place] Mohan Ot G93.1 ANOXIC BRAIN DAMAGE, NOT ELSEWHERE CLASS 05/15/2020 [facility], [place] K Ot I10 ESSENTIAL (PRIMARY) HYPERTENSION 05/15/2020 [facility], [place] K Ot I50.1 LEFT VENTRICULAR FAILURE 05/15/2020 [facility], [place] Mohan Ot R09.2 RESPIRATORY ARREST 05/15/2020 [facility] [place] LAURA Ot G93.1 ANOXIC BRAIN DAMAGE, NOT ELSEWHERE CLASS 05/15/2020 [facility] [place] LAURA Ot I11.0 HYPERTENSIVE HEART DISEASE WITH HEART FA 05/15/2020 [facility], [place] Mohan Ot I50.1 LEFT VENTRICULAR FAILURE, UNSPECIFIED 05/15/2020 [facility] [place] LA[facility]A Ot I51.3 INTRACARDIAC THROMBOSIS, NOT ELSEWHERE C 05/15/2020 FELECIA FORTUNE MD Ot I08. 3 COMB RHEUMATIC DISORD OF MITRAL, AORTIC 05/15/2020 FELECIA FORTUNE MD Ot I10 ESSENTIAL (PRIMARY) HYPERTENSION 05/15/2020 FELECIA FORTUNE MD Ot I25. 2 OLD MYOCARDIAL INFARCTION 05/15/2020 FELECIA FORTUNE MD Ot I42. 9 CARDIOMYOPATHY, UNSPECIFIED 05/15/2020 FELECIA FORTUNE MD Ot R00. 1 BRADYCARDIA, UNSPECIFIED 05/15/2020 FELECIA FORTUNE MD Ot Z79. 01 CAMPUS AIDE (CURRENT) USE OF ANTICOAGULANT 05/15/2020 BLAYNE BERRY Ot M25.462 EFFUSION, LEFT KNEE 05/15/2020 BROWN NGUYEN APRN Ot M25.571 PAIN IN RIGHT ANKLE AND JOINTS OF RIGHT 05/15/2020 FELECIA FORTUNE MD Ot I08. 1 RHEUMATIC DISORDERS OF BOTH MITRAL AND T 05/15/2020 TONG MAZARIEGOS, FELECIA Diaz Ot I10 ESSENTIAL (PRIMARY) HYPERTENSION 05/15/2020 TONG MAZARIEGOS, FELECIA Diaz Ot R00. 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 9 HYPERTENSION NOS 05/17/2020 TONG MAZARIEGOS, FELECIA Diaz Ot 425. 4 PRIM CARDIOMYOPATHY NEC 05/17/2020 TONG MAZARIEGOS, FELECIA Diaz Ot 428. 0 CONGESTIVE HEART FAILURE NOS 05/17/2020 [facility], [place] K Ot G93.1 ANOXIC BRAIN DAMAGE, NOT ELSEWHERE CLASS 05/17/2020 [facility], [place] K Ot I10 ESSENTIAL (PRIMARY) HYPERTENSION 05/17/2020 [facility], [place] K Ot I50.1 LEFT VENTRICULAR FAILURE 05/17/2020 [facility], [place] K Ot R09.2 RESPIRATORY ARREST 05/17/2020 [facility], [place] K Ot G93.1 ANOXIC BRAIN DAMAGE, NOT ELSEWHERE CLASS 05/17/2020 [facility], [place] K Ot I11.0 HYPERTENSIVE HEART DISEASE WITH HEART FA 05/17/2020 [facility], [place] K Ot I50.1 LEFT VENTRICULAR FAILURE, UNSPECIFIED 05/17/2020 [facility], [place] K Ot I51.3 INTRACARDIAC THROMBOSIS, NOT ELSEWHERE C 05/17/2020 TONG MAZARIEGOS, FELECIA Diaz Ot I08. 3 COMB RHEUMATIC DISORD OF MITRAL, AORTIC 05/17/2020 TONG MAZARIEGOS, FELECIA Diaz Ot I10 ESSENTIAL (PRIMARY) HYPERTENSION 05/17/2020 TONG MAZARIEGOS, FELECIA Diaz Ot I25. 2 OLD MYOCARDIAL INFARCTION 05/17/2020 TONG MAZARIEGOS, FELECIA Diaz Ot I42. 9 CARDIOMYOPATHY, UNSPECIFIED 05/17/2020 FELECIA FORTUNE MD Ot R00. 1 BRADYCARDIA, UNSPECIFIED 05/17/2020 FELECIA FORTUNE MD Ot Z79. 01 CAMPUS AIDE (CURRENT) USE OF ANTICOAGULANT 05/17/2020 BLAYNE BERRY Ot M25.462 EFFUSION, LEFT KNEE 05/17/2020 BROWN NGUYEN DEMURRAGE CLERK Ot M25.571 PAIN IN RIGHT ANKLE AND JOINTS OF RIGHT 05/17/2020 FELECIA FORTUNE MD Ot I08. 1 RHEUMATIC DISORDERS OF BOTH MITRAL AND T 05/17/2020 FELECIA FORTUNE MD Ot I10 ESSENTIAL (PRIMARY) HYPERTENSION 05/17/2020 FELECIA FORTUNE MD Ot R00. 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 9 HYPERTENSION NOS 05/17/2020 FELECIA FORTUNE MD Ot 425. 4 PRIM CARDIOMYOPATHY NEC 05/17/2020 FELECIA FORTUNE MD Ot 428. 0 CONGESTIVE HEART FAILURE NOS 05/17/2020 [place] BERMAN Ot G93.1 ANOXIC BRAIN DAMAGE, NOT ELSEWHERE CLASS 05/17/2020 [place] BERMAN Ot I10 ESSENTIAL (PRIMARY) HYPERTENSION 05/17/2020 [place] BERMAN Ot I50.1 LEFT VENTRICULAR FAILURE 05/17/2020 [place] BERMAN Ot R09.2 RESPIRATORY ARREST 05/17/2020 [place] BERMAN Ot G93.1 ANOXIC BRAIN DAMAGE, NOT ELSEWHERE CLASS 05/17/2020 [place] BERMAN Ot I11.0 HYPERTENSIVE HEART DISEASE WITH HEART FA 05/17/2020 [place] BERMAN Ot I50.1 LEFT VENTRICULAR FAILURE, UNSPECIFIED 05/17/2020 [place] BERMAN Ot I51.3 INTRACARDIAC THROMBOSIS, NOT ELSEWHERE C 05/17/2020 FELECIA FORTUNE MD Ot I08. 3 COMB RHEUMATIC DISORD OF MITRAL, AORTIC 05/17/2020 FELECIA FORTUNE MD Ot I10 ESSENTIAL (PRIMARY) HYPERTENSION 05/17/2020 FELECIA FORTUNE MD Ot I25. 2 OLD MYOCARDIAL INFARCTION 05/17/2020 FELECIA FORTUNE MD Ot I42. 9 CARDIOMYOPATHY, UNSPECIFIED 05/17/2020 FELECIA FORTUNE MD Ot R00. 1 BRADYCARDIA, UNSPECIFIED 05/17/2020 FELECIA FORTUNE MD Ot Z79. 01 CAMPUS AIDE (CURRENT) USE OF ANTICOAGULANT 05/17/2020 BLAYNE BERRY SURFACE SUPERVISOR Ot M25.462 EFFUSION, LEFT KNEE 05/17/2020 PATRICK BROWNIRENE Mata APRN Ot M25.571 PAIN IN RIGHT ANKLE AND JOINTS OF RIGHT 05/17/2020 FELECIA FORTUNE MD, Ot I08. 1 RHEUMATIC DISORDERS OF BOTH MITRAL AND T 05/17/2020 FELECIA FORTUNE MD, Ot I10 ESSENTIAL (PRIMARY) HYPERTENSION 05/17/2020 FELECIA FORTUNE MD Ot R00. 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 9 HYPERTENSION NOS 05/17/2020 FELECIA FORTUNE MD Ot 425. 4 PRIM CARDIOMYOPATHY NEC 05/17/2020 FELECIA FORTUNE MD Ot 428. 0 CONGESTIVE HEART FAILURE NOS 05/17/2020 [place] BERMAN Ot G93.1 ANOXIC BRAIN DAMAGE, NOT ELSEWHERE CLASS 05/17/2020 [place] BERMAN Ot I10 ESSENTIAL (PRIMARY) HYPERTENSION 05/17/2020 [place] BERMAN Ot I50.1 LEFT VENTRICULAR FAILURE 05/17/2020 [place] BERMAN Ot R09.2 RESPIRATORY ARREST 05/17/2020 [place] BERMAN Ot G93.1 ANOXIC BRAIN DAMAGE, NOT ELSEWHERE CLASS 05/17/2020 [place] BERMAN Ot I11.0 HYPERTENSIVE HEART DISEASE WITH HEART FA 05/17/2020 [place] BERMAN Ot I50.1 LEFT VENTRICULAR FAILURE, UNSPECIFIED 05/17/2020 [place] BERMAN Ot I51.3 INTRACARDIAC THROMBOSIS, NOT ELSEWHERE C 05/17/2020 FELECIA FORTUNE MD Ot I08. 3 COMB RHEUMATIC DISORD OF MITRAL, AORTIC 05/17/2020 FELECIA FORTUNE MD, Ot I10 ESSENTIAL (PRIMARY) HYPERTENSION 05/17/2020 FELECIA FORTUNE MD Ot I25. 2 OLD MYOCARDIAL INFARCTION 05/17/2020 FELECIA FORTUNE MD, Ot I42. 9 CARDIOMYOPATHY, UNSPECIFIED 05/17/2020 FELECIA FORTUNE MD Ot R00. 1 BRADYCARDIA, UNSPECIFIED 05/17/2020 FELECIA FORTUNE MD Ot Z79. 01 CAMPUS AIDE (CURRENT) USE OF ANTICOAGULANT 05/17/2020 BLAYNE BERRY SURFACE SUPERVISOR Ot M25.462 EFFUSION, LEFT KNEE 05/17/2020 BROWN NGUYEN DEMURRAGE CLERK Ot M25.571 PAIN IN RIGHT ANKLE AND JOINTS OF RIGHT 05/17/2020 FELECIA FORTUNE MD Ot I08. 1 RHEUMATIC DISORDERS OF BOTH MITRAL AND T 05/17/2020 FELECIA FORTUNE MD Ot I10 ESSENTIAL (PRIMARY) HYPERTENSION 05/17/2020 FELECIA FORTUNE MD Ot R00. 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 9 HYPERTENSION NOS 05/17/2020 FELECIA FORTUNE MD Ot 425. 4 PRIM CARDIOMYOPATHY NEC 05/17/2020 FELECIA FORTUNE MD Ot 428. 0 CONGESTIVE HEART FAILURE NOS 05/17/2020 [facility], [place] Mohan Ot G93.1 ANOXIC BRAIN DAMAGE, NOT ELSEWHERE CLASS 05/17/2020 [facility], [place] Mohan Ot I10 ESSENTIAL (PRIMARY) HYPERTENSION 05/17/2020 [facility], [place] Mohan Ot I50.1 LEFT VENTRICULAR FAILURE 05/17/2020 [facility], [place] Mohan Ot R09.2 RESPIRATORY ARREST 05/17/2020 [facility], [place] Mohan Ot G93.1 ANOXIC BRAIN DAMAGE, NOT ELSEWHERE CLASS 05/17/2020 [facility], [place] Mohan Ot I11.0 HYPERTENSIVE HEART DISEASE WITH HEART FA 05/17/2020 [facility], [place] Mohan Ot I50.1 LEFT VENTRICULAR FAILURE, UNSPECIFIED 05/17/2020 [facility] [place] LA[facility]A Ot I51.3 INTRACARDIAC THROMBOSIS, NOT ELSEWHERE C 05/17/2020 FELECIA FORTUNE MD Ot I08. 3 COMB RHEUMATIC DISORD OF MITRAL, AORTIC 05/17/2020 FELECIA FORTUNE MD Ot I10 ESSENTIAL (PRIMARY) HYPERTENSION 05/17/2020 FELECIA FORTUNE MD Ot I25. 2 OLD MYOCARDIAL INFARCTION 05/17/2020 FELECIA FORTUNE MD Ot I42. 9 CARDIOMYOPATHY, UNSPECIFIED 05/17/2020 FELECIA FORTUNE MD Ot R00. 1 BRADYCARDIA, UNSPECIFIED 05/17/2020 FELECIA FORTUNE MD Ot Z79. 01 HALF-WAY (CURRENT) USE OF ANTICOAGULANT 05/17/2020 BLAYNE BERRY Ot M25.462 EFFUSION, LEFT KNEE 05/17/2020 BROWN NGUYEN APRN Ot M25.571 PAIN IN RIGHT ANKLE AND JOINTS OF RIGHT 05/17/2020 FELECIA FORTUNE MD Ot I08. 1 RHEUMATIC DISORDERS OF BOTH MITRAL AND T 05/17/2020 FELECIA FORTUNE MD Ot I10 ESSENTIAL (PRIMARY) HYPERTENSION 05/17/2020 FELECIA FORTUNE MD Ot R00. 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 9 HYPERTENSION NOS 05/17/2020 TONG MAZARIEGOS, FELECIA Diaz Ot 425. 4 PRIM CARDIOMYOPATHY NEC 05/17/2020 TONG MAZARIEGOS, FELECIA Diaz Ot 428. 0 CONGESTIVE HEART FAILURE NOS 05/17/2020 [facility], [place] Mohan Ot G93.1 ANOXIC BRAIN DAMAGE, NOT ELSEWHERE CLASS 05/17/2020 [facility] Ot I10 ESSENTIAL (PRIMARY) HYPERTENSION 05/17/2020 [facility] [place] LAURA Ot I50.1 LEFT VENTRICULAR FAILURE 05/17/2020 [facility] [place] LAURA Ot R09.2 RESPIRATORY ARREST 05/17/2020 [facility] [place] LAURA Ot G93.1 ANOXIC BRAIN DAMAGE, NOT ELSEWHERE CLASS 05/17/2020 [facility] [place] LAURA Ot I11.0 HYPERTENSIVE HEART DISEASE WITH HEART FA 05/17/2020 [facility] [place] LAURA Ot I50.1 LEFT VENTRICULAR FAILURE, UNSPECIFIED 05/17/2020 [facility] [place] LA[facility]A Ot I51.3 INTRACARDIAC THROMBOSIS, NOT ELSEWHERE C 05/17/2020 FELECIA FORTUNE MD Ot I08. 3 COMB RHEUMATIC DISORD OF MITRAL, AORTIC 05/17/2020 FELECIA FORTUNE MD Ot I10 ESSENTIAL (PRIMARY) HYPERTENSION 05/17/2020 FELECIA FORTUNE MD Ot I25. 2 OLD MYOCARDIAL INFARCTION 05/17/2020 FELECIA FORTUNE MD Ot I42. 9 CARDIOMYOPATHY, UNSPECIFIED 05/17/2020 FELECIA FORTUNE MD Ot R00. 1 BRADYCARDIA, UNSPECIFIED 05/17/2020 FELECIA FORTUNE MD Ot Z79. 01 HALF-WAY (CURRENT) USE OF ANTICOAGULANT 05/17/2020 BLAYNE BERRYP Ot M25.462 EFFUSION, LEFT KNEE 05/17/2020 BROWN NGUYEN DEMURRAGE CLERK Ot M25.571 PAIN IN RIGHT ANKLE AND JOINTS OF RIGHT 05/17/2020 FELECIA FORTUNE MD Ot I08. 1 RHEUMATIC DISORDERS OF BOTH MITRAL AND T 05/17/2020 FELECIA FORTUNE MD Ot I10 ESSENTIAL (PRIMARY) HYPERTENSION 05/17/2020 TONG MAZARIEGOS, FELECIA Diaz Ot R00. 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 9 HYPERTENSION NOS 05/17/2020 FELECIA FORTUNE MD Ot 425. 4 PRIM CARDIOMYOPATHY NEC 05/17/2020 TONG MAZARIEGOS, FELECIA Diaz Ot 428. 0 CONGESTIVE HEART FAILURE NOS 05/17/2020 [facility] K Ot G93.1 ANOXIC BRAIN DAMAGE, NOT ELSEWHERE CLASS 05/17/2020 [facility], BLANCO K Ot I10 ESSENTIAL (PRIMARY) HYPERTENSION 05/17/2020 [facility], BLANCO K Ot I50.1 LEFT VENTRICULAR FAILURE 05/17/2020 [facility], [place] Mohan Ot R09.2 RESPIRATORY ARREST 05/17/2020 [facility], [place] K Ot G93.1 ANOXIC BRAIN DAMAGE, NOT ELSEWHERE CLASS 05/17/2020 [facility], BLANCO K Ot I11.0 HYPERTENSIVE HEART DISEASE WITH HEART FA 05/17/2020 [facility], BLANCO K Ot I50.1 LEFT VENTRICULAR FAILURE, UNSPECIFIED 05/17/2020 [facility], BLANCO K Ot I51.3 INTRACARDIAC THROMBOSIS, NOT ELSEWHERE C 05/17/2020 FELECIA FORTUNE MD Ot I08. 3 COMB RHEUMATIC DISORD OF MITRAL, AORTIC 05/17/2020 FELECIA FORTUNE MD Ot I10 ESSENTIAL (PRIMARY) HYPERTENSION 05/17/2020 TONG MAZARIEGOS, FELECIA Diaz Ot I25. 2 OLD MYOCARDIAL INFARCTION 05/17/2020 TONG MAZARIEGOS, FELECIA Diaz Ot I42. 9 CARDIOMYOPATHY, UNSPECIFIED 05/17/2020 FELECIA FORTUNE MD Ot R00. 1 BRADYCARDIA, UNSPECIFIED 05/17/2020 FELECIA FORTUNE MD Ot Z79. 01 CAMPUS AIDE (CURRENT) USE OF ANTICOAGULANT 05/17/2020 BLAYNE BERRY SURFACE SUPERVISOR Ot M25.462 EFFUSION, LEFT KNEE 05/17/2020 BROWN NGUYEN DEMURRAGE CLERK Ot M25.571 PAIN IN RIGHT ANKLE AND JOINTS OF RIGHT 05/17/2020 FELECIA FORTUNE MD, Ot I08. 1 RHEUMATIC DISORDERS OF BOTH MITRAL AND T 05/17/2020 FELECIA FORTUNE MD, Ot I10 ESSENTIAL (PRIMARY) HYPERTENSION 05/17/2020 FELECIA FORTUNE MD Ot R00. 1 BRADYCARDIA, UNSPECIFIED 05/20/2020 LIZ DO, RODRIGO Kimberlee Ot E66.9 OBESITY, UNSPECIFIED 05/20/2020 LIZ DO, RODRIGO K Ot F31.9 BIPOLAR DISORDER, UNSPECIFIED 05/20/2020 LIZ DO, RODRIGO Kimberlee Ot F41.9 ANXIETY DISORDER, UNSPECIFIED 05/20/2020 LIZ DO, RODRIGO K Ot I10 ESSENTIAL (PRIMARY) HYPERTENSION 05/20/2020 LIZ DO, RODRIGO K Ot K21.9 GASTRO-ESOPHAGEAL REFLUX DISEASE WITHOUT 05/20/2020 LIZ DO, RODRIGO K Ot R07.89 OTHER CHEST PAIN 05/20/2020 LIZ DO, RODRIGO K Ot Z68.41 BODY MASS INDEX (BMI) 40.0-44.9, ADULT 05/20/2020 LIZ DO RODRIGO K Ot Z79.01 HALF-WAY (CURRENT) USE OF ANTICOAGULANT 05/20/2020 LIZ DO RODRIGO K Ot Z79.52 CAMPUS AIDE (CURRENT) USE OF SYSTEMIC STER 05/20/2020 LIZ DO RODRIGO K Ot Z87.820 PERSONAL HISTORY OF TRAUMATIC BRAIN INJU 05/20/2020 LIZ DOMILADYA Kimberlee Ot Z87.891 PERSONAL HISTORY OF NICOTINE DEPENDENCE 05/20/2020 LIZ DOMILADYA Kimberlee Ot Z88.8 ALLERGY STATUS TO OTH DRUG/MEDS/BIOL SUB 05/20/2020 RODRIGO HILL DO Ot Z95.810 PRESENCE OF AUTOMATIC (IMPLANTABLE) CARD Procedures Code Description Performed By Per formed [...] 7-25 CREATININE 1.63 mg/dL 0.50-1.10 eGFR NON-AFR. IVORIAN 42 mL/min/1.73m2 > OR = 60 eGFR [...] 7-25 CREATININE 1.82 mg/dL 0.50-1.10 eGFR NON-AFR. IVORIAN 37 mL/min/1.73m2 > OR = 60 eGFR [...] 7-25 CREATININE 1.58 mg/dL 0.50-1.10 eGFR NON-AFR. IVORIAN 43 mL/min/1.73m2 > OR = 60 eGFR [...] 06:49 TROPONIN I FS < 0.30 <0.30 Complete blood count (CBC) with automate d white blood cell (WBC) differential - 05/17/20 02:12 Blood leukocytes automated count (number/volume) 10.6 10*3/uL 4.3-11.0 Blood erythrocytes automated count (number/volume) 4.60 10*6/uL 4.35-5.85 Venous blood hemoglobin measurement (mass/volume) 13.4 g/dL 11.5-16.0 Blood hematocrit (volume fraction) 40 % 35-52 Automated erythrocyte mean corpuscular volume 87 [ foz_us] 80-99 Automated erythrocyte mean corpuscular h emoglobin (mass per erythrocyte) 29 pg 25-34 Automated erythrocyte mean corpuscular h emoglobin concentration measurement (mass/volume) 33 g/dL 32-36 Automated erythrocyte distribution width ratio 15. 7 % 10.0- 14.5 Automated blood platelet count (count/volume) 291 10*3/uL 130-400 Automated blood platelet mean volume measurement 8.9 [foz_us] 7.4-10.4 Automated blood neutrophils/100 leukocytes 47 % 42-75 Automated blood lymphocytes/100 leukocytes 44 % 12-44 Blood monocytes/100 leukocytes 6 % 0-12 Automated blood eosinophils/100 leukocytes 2 % 0-10 Automated blood basophils/100 leukocytes 0 % 0-10 Blood neutrophils automated count (number/volume) 5.0 10*3 1.8-7.8 Blood lymphocytes automated count (number/volume) 4.7 10*3 1.0-4.0 Blood monocytes automated count (number/volume) 0. 7 10*3 0.0-1.0 Automated eosinophil count 0.3 10*3/uL 0 .0-0.3 Automated blood basophil count (count/volume) 0.0 10*3/uL 0.0-0.1 Comprehensive metabolic panel - 05/17/20 02:12 Serum or plasma sodium measurement (moles/volume) 140 mmol/L 135-145 Serum or plasma potassium measurement (moles/volume) 3.7 mmol/L 3.6-5.0 Serum or plasma chloride measurement (moles/volume) 104 mmol/L 98-107 Carbon dioxide 24 mmol/L 21-32 Serum or plasma anion gap determination (moles/volume) 12 mmol/L 5-14 Serum or plasma urea nitrogen measurement (mass/volume ) 16 mg/dL 7-18 Serum or plasma creatinine measurement (mass/volume) 2.10 mg/dL 0.60-1.30 Serum or plasma urea nitrogen/creatinine mass ratio 8 NRG Serum or plasma creatinine measurement w ith calculation of estimated glomerular filtration rate 33 NRG Serum or plasma glucose measurement (mass/volume) 106 mg/dL 70-105 Serum or plasma calcium measurement (mass/volume) 9.0 mg/dL 8.5-10.1 Serum or plasma total bilirubin measurement (mass/volu me) 0.2 mg/dL 0.1-1.0 Serum or plasma alkaline phosphatase eugene surement (enzymatic activity/volume) 76 U/L 40-136 Serum or plasma aspartate aminotransfera se measurement (enzymatic activity/volume) 26 U/L 5-34 Serum or plasma alanine aminotransferase measurement (enzymatic activity/volume) 31 U/L 0-55 Serum or plasma protein measurement (mass/volume) 6.8 g/dL 6.4-8.2 Serum or plasma albumin measurement (mass/volume) 3.8 g/dL 3.2-4.5 CALCIUM CORRECTED 9.2 mg/dL 8.5-10.1 Magnesium - 05/17/20 02:12 Magnesium 1.9 mg/dL 1.6-2.4 Serum or plasma choriogonadotropin (preg angelo test) detection - 05/17/20 02:12 Serum or plasma choriogonadotropin ( test) de tection NEGATIVE NEGATIVE Urine drug screening test - 05/17/20 02: 12 Urine phencyclidine detection by screening method NEGATIVE [...] TIVE Urine propoxyphene detection NEGATIVE N EGATIVE Serum ragweed IgE antibody assay - 05/17 02:12 Serum ragweed IgE antibody assay 268 U/L 125-220 PROCALCITONIN (PCT) - 05/17/20 02:12 PROCALCITONIN (PCT) 0.08 ng/mL <0.10 Serum or plasma creatine kinase measurem ent (enzymatic activity/volume) - 05/17/20 02:12 Serum or plasma creatine kinase measurem ent (enzymatic activity/volume) 117 U/L 29-168 Serum or plasma creatine kinase MB measu rement (enzymatic activity/volume) - 05/17/20 02:12 Serum or plasma creatine kinase MB measu rement (enzymatic activity/volume) 1.0 ng/mL <6.6 Serum or plasma troponin i.cardiac measu rement (mass/volume) - 05/17/20 02:12 Serum or plasma troponin i.cardiac measurement (mass/v olume) < ng/mL <0.028 Complete urinalysis with reflex to cultu re - 05/17/20 02:12 Urine color determination YELLOW NRG Urine clarity determination CLEAR NR G Urine pH measurement by test strip 6.5 5-9 Specific gravity of urine by test [...] in urine sediment by light microsco py TRACE NRG Squamous epithelial cells detection in u rine sediment by light microscopy 2-5 NRG Crystals detection in urine sediment by light microsco py NONE NRG Casts detection in urine sediment by light microscopy NONE NRG Mucus detection in urine sediment by light microscopy NEGATIVE NRG Complete urinalysis with reflex to culture NO NRG Yeast detection in urine sediment by light microscopy FEW NRG Myoglobin, serum - 05/17/20 02:12 Myoglobin, serum 68.1 ng/mL 10.0-92.0 Serum or plasma amylase measurement (enz ymatic activity/volume) - 05/17/20 02:12 Serum or plasma amylase measurement (enzymatic activit y/volume) 95 U/L 25-125 Lipase - 05/17/20 02:12 Lipase 32 U/L 8-78 Erythrocyte sedimentation rate by tex gren method - 05/17/20 02:12 Erythrocyte sedimentation rate by westergren method 17 mm 0- 20 Serum or plasma C reactive protein measu rement (mass/volume) - 05/17/20 02:12 Serum or plasma C reactive protein measurement (mass/v olume) 2.60 mg/dL 0.00-0.50 PT panel in platelet poor plasma by coag ulation assay - 05/17/20 02:12 Prothrombin time (PT) in platelet poor plasma by coagu lation assay 12.3 s 12.2-14.7 INR in platelet poor plasma or blood by coagulation as say 0.9 0.8-1.4 Activated partial thromboplastin time (a PTT) in platelet poor plasma bycoagulation assay - 05/17/20 02:12 Activated partial thromboplastin time (a PTT) in platelet poor plasma bycoagulation assay 29 s 24-35 Serum or plasma lithium measurement (mol es/volume) - 05/17/20 02:12 BNP PT 42.9 pg/mL <100.0 Serum or plasma ethanol measurement (mas s/volume) - 05/17/20 02:12 Serum or plasma ethanol measurement (mass/volume) < mg/dL <10 Coronavirus SARS-CoV-2 SO 2018 - 0 02:12 Coronavirus Ab [Units/volume] in Serum Negative Negative Serum or plasma troponin i.cardiac measu rement (mass/volume) - 05/17/20 05:00 Serum or plasma troponin i.cardiac measurement (mass/v olume) < ng/mL <0.028 Encounters ACCT No. Visit Date/Time Discharge Status Pt. Type Provider Facility Loc./Unit Complaint [id number] 05/20/2020 11:40:00 ACT Outpatient ONEIL MAZARIEGOS, MOUNIKA [facility] [id number] 04/08/2020 14:35:00 Document Registration [id number] 12/11/2019 10:00:00 Document Registration [id number] 06/29/2019 09:40:00 Document Registration [id number] 04/20/2019 10:00:00 Document Registration [id number] 09/20/2018 09:20:00 Document Registration [id number] 08/10/2018 11:40:00 Document Registration [id number] 05/17/2020 01:56:00 06:06:00 DIS Outpatient RODRIGO HILL DO, [facility] ER CP,SOA [id number] 05/11/2020 12:17:00 12:56:00 DIS Emergency EDISON CHAMBERLAIN MD [facility] ER FS THROAT PAIN/SWELLING [id number] 04/24/2020 11:29:00 23:59:59 CLS Outpatient FELECIA FORTUNE MD [facility] CARD HTN [id number] 04/10/2020 03:04:00 07:47:00 DIS Emergency HECTOR LADD DO [facility] ER FS CHEST PAIN; SOB [id number] 04/08/2020 00:37:00 02:07:00 DIS Emergency ANTONIO CALLEJAS MD [facility] ER PACE MAKER ACTING FUNNY [id number] 02/22/2020 18:41:00 21:10:00 DIS Emergency OLLIE WOOD DO [facility] ER FS ABD PAIN [id number] 02/15/2020 03:26:00 03/20/2 020 05:25:00 DIS Emergency RACHELVENSTAMAYA TINSLEY ALPESH Kyle [facility] ER FS CARDIC CONCERNS [id number] 02/05/2020 11:26:00 14:29:00 DIS Emergency HECTOR LADD DO [facility] ER FS ELEV BP [id number] 12/27/2019 17:57:00 19:48:00 DIS Emergency EDISON CHAMBERLAIN MD [facility] ER FS LOWER ABD PAIN [id number] 11/29/2019 22:03:00 23:16:00 DIS Emergency ORESTES VELASCO MD [facility] ER FS LOWER ABD PAIN [id number] 11/04/2019 16:40:00 18:15:00 DIS Emergency ANTONIO CALLEJAS MD [facility] ER FS RT SIDED PAIN [id number] 10/23/2019 08:51:00 10:49:00 DIS Emergency HECTOR LADD DO [facility] ER FS LT FLANK PAIN; NAUSEA [id number] 08/31/2019 04:15:00 06:35:00 DIS Emergency EDISON CHAMBERLAIN MD [facility] ER FS CHEST PAIN [id number] 08/28/2019 16:55:00 17:54:00 DIS Emergency MOIZ MARLEY DO [facility] ER FS SUPRAPUBIC CRAMPING [id number] 08/27/2019 09:29:00 23:59:59 CLS Outpatient BROWN NGUYEN APRN [facility] RAD FS M25.571 [id number] 08/15/2019 17:05:00 19:10:00 DIS Emergency ANTONIO CALLEJAS MD [facility] ER FS LT KNEE PAIN [id number] 07/29/2019 21:19:00 22:01:00 DIS Emergency ORESTES VELASCO MD [facility] ER FS RIGHT FOOT POSS BUG BIT E [id number] 07/28/2019 18:05:00 20:13:00 DIS Emergency FEDE AMARO MD [facility] ER FS HEADACHE [id number] 07/09/2019 08:56:00 23:59:59 [facility] Outpatient BLAYNE BERRY [facility] RAD FS LEFT KNEE PAIN [id number] 06/04/2019 19:53:00 22:04:00 DIS Emergency MARIBEL MAZARIEGOS, RALPH Mcelroy [facility] ER POST PACE MAKER OP/L SHOULDER PAIN/RACING HEART [id number] 05/22/2019 19:15:00 22:34:00 DIS Emergency DELIO ARIZA DO [facility] ER FS CHEST PAIN [id number] 05/11/2019 13:28:00 14:48:00 DIS Emergency ANTONIO CALLEJAS MD [facility] ER BLOOD [facility] FROM [facility] SITE [id number] 05/09/2019 19:36:00 06:23:00 DIS Inpatient HOLLY MAZARIEGOS, ALEX Griffith [facility] 4TH CHEST PAIN;ELEVATED BNP ;H/O CARDIAC ARREST [id number] 05/05/2019 18:06:00 20:26:00 DIS Emergency NIK CELIS [facility] ER PACEMAKER CONCERNS [id number] 04/20/2019 22:38:00 23:29:00 DIS Emergency VINITA RICHARD DO [facility] ER FS SWOLLEN ARMS, HANDS AND FEET [id number] 04/19/2019 15:50:00 18:33:00 DIS Emergency LISA MARCELINO APRN [facility] ER HEADACHE [id number] 04/12/2019 20:29:00 23:19:00 DIS Emergency EDISON CHAMBERLAIN MD [facility] ER FS VOMITING, BACK PAIN, DI ZZY [id number] 04/09/2019 00:33:00 019 01:40:00 DIS Emergency TO TINSLEY DELIO Aubrey [facility] ER FS LEFT PAIN [id number] 01/06/2019 01:18:00 019 03:15:00 DIS Emergency FEDE AMARO MD [facility] ER CP,FALL 2 DAYS AGO [id number] 01/01/2019 15:50:00 019 19:25:00 DIS Emergency NIK CELIS [facility] ER SOB/COUGHING UP BLOOD [id number] 11/01/2018 14:51:00 018 19:37:00 DIS Emergency MARIBEL MAZARIEGOS, RALPH Mcelroy [facility] ER SOB;HEAD PAIN;H IGH BP [id number] 10/23/2018 12:07:00 018 23:59:59 CLS Outpatient FELECIA FORTUNE MD [facility] CARD CARDIOMYOPATHY,HTN,MR,S INUS BRADYCARDIA [id number] 08/05/2018 17:39:00 018 19:33:00 DIS Emergency NIK CELIS [facility] ER HEAD HURTING,RT ANKLE S WOLLEN [id number] 01/12/2018 10:17:00 018 23:59:59 CLS Outpatient MICHAEL BERMAN [facility] CARD G93.1 ANOXI C ENCEPHALOPATHY [id number] 10/06/2017 12:00:00 017 23:59:59 CLS Preadmit FELECIA FORTUNE MD [facility] CARD CARDIOMYOPATHY I42.9 [id number] 03/03/2016 12:12:00 016 23:59:59 CLS Outpatient MICHAEL BERMAN [facility] CARD ENCOPELPATH [id number] 02/15/2016 15:59:00 016 18:46:00 DIS Emergency ODGERS MD, OSMAN Mohan [facility] ER DEFIBRILLATOR ISSUES [id number] 12/01/2015 18:08:00 21:10:00 DIS Emergency LIZ TINSLEY, RODRIGO Kimberlee [facility] ER IRREGULAR HEART RATE [id number] 08/23/2015 20:00:00 01:08:00 DIS Emergency MARIBEL MAZARIEGOS, RALPH Mcelroy [facility] ER DEFIBRILLATOR B EEPING [id number] 08/08/2015 22:55:00 00:13:00 DIS Emergency KRISTA MAZARIEGOS, ORESTES Guthrie [facility] ER L ARM/RIB CAGE PAIN [id number] 07/27/2015 18:45:00 12:40:00 DIS Inpatient APRIL DOMINIQUE DO [facility] CSD L PNEUMOTHORAX L CHEST WALL PX ELEV LFT'S [id number] 07/23/2015 06:38:00 11:45:00 DIS Outpatient FELECIA FORTUNE MD [facility] CATH CGF,CARDIOMYOPATHY [id number] 07/15/2015 11:28:00 23:59:59 CLS Outpatient TONG MAZARIEGOS, FELECIA Diaz [facility] LAB CHF,HTN,TR [id number] 07/11/2015 10:45:00 23:59:59 CLS Outpatient MICHAEL BERMAN [facility] CARD CHF,CARDINU REOPATHY HTN [id number] 03/26/2015 13:23:00 18:00:00 DIS Inpatient APRIL DOMINIQUE DO [facility] CSD UNK [id number] 03/21/2015 12:45:00 12:46:00 DIS Inpatient KAUR MAZARIEGOS, LISSET Mcghee [facility] IRF DEBILITY,ENCEPHALOPATHY
[2020-05-23 00:19] LABS: BASOPHILS # (AUTO) 0.1 10^3/uL (0.0-0.1); BASOPHILS % (AUTO) 1 % (0-10); EOSINOPHILS # (AUTO) 0.2 10^3/uL (0.0-0.3); EOSINOPHILS % (AUTO) 2 % (0-10); HEMATOCRIT 40 % (35-52); HEMOGLOBIN 13.1 G/DL (11.5-16.0); LYMPHOCYTES # (AUTO) 3.4 X 10^3 (1.0-4.0); LYMPHOCYTES % (AUTO) 41 % (12-44); MEAN CORPUSCULAR HEMOGLOBIN 29 PG (25-34); MEAN CORPUSCULAR HGB CONC 33 G/DL (32-36); MEAN CORPUSCULAR VOLUME 89 FL (80-99); MEAN PLATELET VOLUME 8.7 FL (7.4-10.4); MONOCYTES # (AUTO) 0.6 X 10^3 (0.0-1.0); MONOCYTES % (AUTO) 8 % (0-12); NEUTROPHILS % (AUTO) 49 % (42-75); PLATELET COUNT 329 10^3/uL (130-400); RED CELL DISTRIBUTION WIDTH 15.8 % (10.0-14.5); WHITE BLOOD COUNT 8.3 10^3/uL (4.3-11.0)
[2020-05-23 00:29] LABS: ALBUMIN 3.9 GM/DL (3.2-4.5)
[2020-05-23 00:30] LABS: POTASSIUM 3.9 MMOL/L (3.6-5.0)
[2020-05-23 00:31] LABS: CALCIUM 9.3 MG/DL (8.5-10.1)
[2020-05-23 00:32] LABS: TOTAL PROTEIN 6.8 GM/DL (6.4-8.2)
[2020-05-23 00:34] LABS: BILIRUBIN,TOTAL 0.2 MG/DL (0.1-1.0)
[2020-05-23 00:36] LABS: CREATININE SERUM 2.05 MG/DL (0.60-1.30)
== END 2020-05-23 01:02 | disposition home or self-care (01) ==
LOC: EDUNIT# 23:57 → ER 05-23 00:01
DX: R60.0 Localized edema (principal); I48.91 Unspecified atrial fibrillation; I10 Essential (primary) hypertension; K21.9 Gastro-esophageal reflux disease without esophagitis; F17.210 Nicotine dependence, cigarettes, uncomplicated; Z79.01 Long term (current) use of anticoagulants; Z88.8 Allergy status to other drugs, medicaments and biological substances; Z79.52 Long term (current) use of systemic steroids; Z95.810 Presence of automatic (implantable) cardiac defibrillator
CPT/HCPCS: 36415; 80053; 83880; 85025; 99283

== ENCOUNTER 2020-06-12 23:45 | Emergency (ER) | payer MEDICARE, MEDICAID ==
[~2020-06-12] VITALS: Ht 160 cm; Wt 117.1 kg
[2020-06-12 23:50] VITALS: BP 153/98
[2020-06-13] MEDS ORDERED: AMOXICILLIN 500 MG (POLYMOX) CAP PO STA (00:09)
[2020-06-13] MEDS ORDERED: AMOX500C2 PO (00:17)
[2020-06-13] MEDS ORDERED: FLUC100T6 PO (00:17)
[2020-06-13] MEDS ORDERED: HYDR-83 PO (00:17)
--- NOTE | 2020-06-13 00:17 | ED General ---
General Chief Complaint: Dental Problems/Pain Stated Complaint: TOOTHACHE Nursing Triage Note: Patient states that she has a broken tooth on the top right side of her mouth. She states she has been having pain for approximately 2 days. Patient last took Tylenol 2 hours prior to arrival. Patient states she is unable to take Ibuprofen due to being on blood thinners. Nursing Sepsis Screen: No Definite Risk Source of Information: Patient History of Present Illness Date Seen by Provider: Jun 13, 2020 Time Seen by Provider: 00:00 Initial Comments Patient is a 29-year-old female who presents with dental caries and dental pain. Patient reports fractured right upper posterior molar with acute onset pain 2 hours prior to ED arrival. Patient took Tylenol without relief symptoms. No dysphonia or dysphagia or drooling. Patient has plans to follow up with dentist tomorrow. Timing/Duration: 1-3 Hours Severity: Severe Modifying Factors: improves with Medication Associated Systoms: Denies Symptoms Allergies and Home Medications Allergies Coded Allergies: JIA Inhibitors (Verified Allergy, Severe, 05/22/19) ARB-Angiotensin Receptor Antagonist (Verified Allergy, Severe, 05/22/19) baclofen (Unverified Allergy, Unknown, 05/22/19) ON H&P phenazopyridine (Unverified Allergy, Unknown, 05/22/19) ON H&P Home Medications Albuterol Sulfate 8 Gm Hfa.aer.ad, 2 PUFF INH Q6H PRN for SHORTNESS OF BREATH, (Reported) Amlodipine Besylate 10 Mg Tablet, 10 MG PO DAILY, (Reported) Apixaban 5 Mg Tablet, 5 MG PO BID Prescribed by: RALPH DELCID on 11/01/18 1856 Dicyclomine HCl 10 Mg Capsule, 10 MG PO QID PRN for abdominal pain/nausea Prescribed by: EDISON CHAMBERLAIN on 12/27/19 1936 Diphenhydramine HCl 25 Mg Capsule, 25 MG PO Q4H PRN for throat irritation Prescribed by: EDISON CHAMBERLAIN on 05/11/20 1239 Diphenoxylate HCl/Atropine 1 Each Tablet, 1 EACH PO BID PRN for DIARRHEA Prescribed by: ORESTES VELASCO on 11/29/19 2309 Doxycycline Hyclate 100 Mg Tablet, 100 MG PO BID Prescribed by: MOIZ MARLEY on 08/28/19 1746 Famotidine 40 Mg Tablet, 40 MG PO DAILY Prescribed by: EDISON CHAMBERLAIN on 05/11/20 1239 Fluconazole 100 Mg Tablet, 100 MG PO Q48H Prescribed by: MOIZ MARLEY on 08/28/19 1746 Methylprednisolone 4 Mg Tab, 4 MG PO UD as directed per dose pack Prescribed by: ANTONIO CALLEJAS on 08/15/19 1841 Metoprolol Tartrate 50 Mg Tablet, 50 MG PO BID Prescribed by: FELECIA FORTUNE on 07/24/15 0841 Prednisone 20 Mg Tab, 40 MG PO DAILY Prescribed by: ANTONIO CALLEJAS on 11/04/19 1759 Patient Home Medication List Home Medication List Reviewed: Yes Review of Systems Review of Systems Constitutional: no symptoms reported EENTM: see HPI Respiratory: no symptoms reported Cardiovascular: no symptoms reported Gastrointestinal: no symptoms reported Past Bmbfllg-Sadvxg-Zpigbx Hx Past Med/Social Hx: Reviewed Nursing Past Med/Soc Hx Patient Social History Alcohol Use: Denies Use Recreational Drug Use: No Drug of Choice: 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 PEG TUBE- REMOVED;UTERINE ABLATION) Abdominal, Section, Defibrillator, Gallbladder, Pacemaker Respiratory: Yes (ARDS-CODED; PNEUMOTHORAX 06/2015) Pneumonia, Chronic Bronchitis Currently Using CPAP: No Currently Using BIPAP: No Cardiac: Yes (PULMONARY EDEMA/CARDIAC CAUSE-R/T ATRIAL THROMBUS; CARDIAC ARREST;V-FIB ) Cardiomyopathy, Endocarditis, Hypertension, Valvular Heart Disease Neurological: Yes (encephalopathy-hypoxia, anoxic brain injury; POOR MEMORY) Reproductive Disorders: No Sexually Transmitted Disease: No Genitourinary: Yes Renal Failure Gastrointestinal: Yes Gastroesophageal Reflux Musculoskeletal: Yes (GAIT DISTURBANCE) Endocrine: No (OBESITY) HEENT: No Loss of Vision: Denies Hearing Impairment: Denies Cancer: No Psychosocial: Yes (per med record) Anxiety, Bipolar, Depression Integumentary: No Blood Disorders: Yes (ANEMIA) Family Medical History Patient reports no known family medical history. No Pertinent Family Hx Physical Exam Vital Signs Vital Signs - First Documented 06/12/20 23:50 Temp 36.2 Pulse 89 Resp 18 B/P (MAP) 153/98 (116) Pulse Ox 99 O2 Delivery Room Air Capillary Refill : Less Than 3 Seconds Height, Weight, BMI Height: 5'3.00" Weight: 234lbs. 0oz. 106.711159qh; 45.00 BMI Method:Stated General Appearance: WD/WN, Mild Distress (secondary to pain) Eyes: Bilateral Eye Normal Inspection, Bilateral Eye PERRL, Bilateral Eye EOMI HEENT: PERRL/EOMI, Normal ENT Inspection, Pharynx Normal, Other (dental caries, with fractured right upper posterior molar. No gingival swelling, soft tissue abscess.) Respiratory: Lungs Clear Focused Exam Sepsis Stage: Ruled Out Progress/Results/Core Measures Suspected Sepsis Recent Fever Within 48 Hours: No Infection Criteria Present: None New/Unexplained Altered Menta: No Sepsis Screen: No Definite Risk SIRS Temperature: Pulse: 89 Respiratory Rate: 18 Blood Pressure 153 /98 Mean: 116 Results/Orders My Orders Orders - MOIZ MARLEY DO Amoxicillin Capsule (Polymox Capsule) (06/13/20 00:09) Tramadol Tablet (Ultram Tablet) (06/13/20 00:15) Vital Signs/I&O 06/12/20 23:50 Temp 36.2 Pulse 89 Resp 18 B/P (MAP) 153/98 (116) Pulse Ox 99 O2 Delivery Room Air Capillary Refill : Less Than 3 Seconds Blood Pressure Mean: 116 Departure Communication (Admissions) Dental caries with fracture and acute dental pain. Antibiotics and pain medications given. Will discharge home with instructions to follow up with dentist IZA. Prescription of antibiotics and pain medication provided. Impression Primary Impression: Dental caries Additional Impression: Pain, dental Disposition: 01 HOME, SELF-CARE Condition: Stable Departure-Patient Inst. Referrals: MOUNIKA RIGGS MD (PCP/Family) Primary Care Physician Patient Instructions: Dental Pain (DC) Add. Discharge Instructions: Please take medications as directed and follow-up with dentist of choice as soon as possible. All discharge instructions reviewed with patient and/or family. Voiced understanding. Scripts Fluconazole (Fluconazole) 100 Mg Tablet 100 MG PO DAILY PRN, #2 TAB Prov: MOIZ MARLEY DO 06/13/20 Amoxicillin (Amoxicillin) 500 Mg Capsule 500 MG PO TID, #21 CAP 0 Refills Prov: MOIZ MARLEY DO 06/13/20 Hydrocodone/Acetaminophen (Hydrocodone-Acetamin 5-325 mg) 1 Each Tablet 1 EACH PO Q6H, #5 TAB Prov: MOIZ MARLEY DO 06/13/20 MOIZ MARLEY DO Jun 13, 2020 00:17
== END 2020-06-13 00:20 | disposition home or self-care (01) ==
LOC: EDUNIT# 23:45 → ER FS 23:47
DX: K02.9 Dental caries, unspecified (principal); I10 Essential (primary) hypertension; K21.9 Gastro-esophageal reflux disease without esophagitis; E66.9 Obesity, unspecified; Z68.42 Body mass index [BMI] 45.0-49.9, adult; Z88.8 Allergy status to other drugs, medicaments and biological substances; Z79.01 Long term (current) use of anticoagulants; Z87.820 Personal history of traumatic brain injury; Z79.52 Long term (current) use of systemic steroids; Z95.810 Presence of automatic (implantable) cardiac defibrillator
CPT/HCPCS: 99283

== ENCOUNTER 2020-06-17 18:54 | Emergency (ER) | payer MEDICARE, MEDICAID ==
[~2020-06-17] VITALS: Ht 160 cm; Wt 99.0 kg
[~2020-06-17 18:54] MED LIST changes: +AMOX500C2 PO; +FLUC100T6 PO; +HYDR-83 PO
[2020-06-17] MEDS ORDERED: ORPHENADRINE 60 MG/2 ML (NORFLEX) AMP (ED ONLY) IM ONE (19:15)
[2020-06-17] MEDS ORDERED: KETOROLAC 60 MG/2 ML VIAL IM ONE (19:15)
--- NOTE | 2020-06-17 19:20 | ED Back Pain ---
General Chief Complaint: Back Problems Stated Complaint: BACK PAIN Nursing Triage Note: Pt was doing laundry and while taking laundry out of the dryer injured her back. Pt presents with mid/lower back pain Nursing Sepsis Screen: No Definite Risk History of Present Illness Date Seen by Provider: Jun 17, 2020 Time Seen by Provider: 19:10 Initial Comments 29-year-old female presents via EMS with complaint of low back pain/injury. States that she was bending over to pickle maker some laundry and felt a pull in her back and is now having difficulty moving. Denies any pain radiating down her legs, any weakness or loss of bowel or bladder control. Allergies and Home Medications Allergies Coded Allergies: JIA Inhibitors (Verified Allergy, Severe, 05/22/19) ARB-Angiotensin Receptor Antagonist (Verified Allergy, Severe, 05/22/19) baclofen (Unverified Allergy, Unknown, 05/22/19) ON H&P phenazopyridine (Unverified Allergy, Unknown, 05/22/19) ON H&P Home Medications Albuterol Sulfate 8 Gm Hfa.aer.ad, 2 PUFF INH Q6H PRN for SHORTNESS OF BREATH, (Reported) Amlodipine Besylate 10 Mg Tablet, 10 MG PO DAILY, (Reported) Amoxicillin 500 Mg Capsule, 500 MG PO TID Prescribed by: MOIZ MARLEY on 06/13/20 0017 Apixaban 5 Mg Tablet, 5 MG PO BID Prescribed by: RALPH DELCID on 11/01/18 185 Dicyclomine HCl 10 Mg Capsule, 10 MG PO QID PRN for abdominal pain/nausea Prescribed by: EDISON CHAMBERLAIN on 12/27/19 1936 Diphenhydramine HCl 25 Mg Capsule, 25 MG PO Q4H PRN for throat irritation Prescribed by: EDISON CHAMBERLAIN on 05/11/20 1239 Diphenoxylate HCl/Atropine 1 Each Tablet, 1 EACH PO BID PRN for DIARRHEA Prescribed by: ORESTES VELASCO on 11/29/192308 Doxycycline Hyclate 100 Mg Tablet, 100 MG PO BID Prescribed by: MOIZ MARLEY on 08/28/19 174 Famotidine 40 Mg Tablet, 40 MG PO DAILY Prescribed by: EDISON CHAMBERLAIN on 05/11/20 1239 Fluconazole 100 Mg Tablet, 100 MG PO Q48H Prescribed by: MOIZ MARLEY on 08/28/19 1746 Fluconazole 100 Mg Tablet, 100 MG PO DAILY PRN Prescribed by: MOIZ MARLEY on 06/13/20 001 Hydrocodone/Acetaminophen 1 Each Tablet, 1 EACH PO Q6H Prescribed by: MOIZ MARLEY on 06/13/2016 Methylprednisolone 4 Mg Tab, 4 MG PO UD as directed per dose pack Prescribed by: ANTONIO CALLEJAS on 08/15/19 1841 Metoprolol Tartrate 50 Mg Tablet, 50 MG PO BID Prescribed by: FELECIA FORTUNE on 07/24/15 0841 Prednisone 20 Mg Tab, 40 MG PO DAILY Prescribed by: ANTONIO CALLEJAS on 11/04/19 1759 Patient Home Medication List Home Medication List Reviewed: Yes Review of Systems Constitutional: no symptoms reported; No fever, No malaise, No weakness Respiratory: No cough, No short of breath Cardiovascular: No chest pain, No palpitations Gastrointestinal: No abdominal pain, No nausea, No vomiting Genitourinary: No dysuria, No frequency, No hematuria Musculoskeletal: see HPI, back pain; No joint pain; muscle pain; No neck pain Skin: No change in color Past Sqtasod-Pmpyzt-Xolhfj Hx Past Med/Social Hx: Reviewed Nursing Past Med/Soc Hx Patient Social History Alcohol Use: Denies Use Recreational Drug Use: No Drug of Choice: 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 PEG TUBE- REMOVED;UTERINE ABLATION) Abdominal, Section, Defibrillator, Gallbladder, Pacemaker Respiratory: Yes (ARDS-CODED; PNEUMOTHORAX 06/2015) Pneumonia, Chronic Bronchitis Currently Using CPAP: No Currently Using BIPAP: No Cardiac: Yes (PULMONARY EDEMA/CARDIAC CAUSE-R/T ATRIAL THROMBUS; CARDIAC ARREST;V-FIB ) Cardiomyopathy, Endocarditis, Hypertension, Valvular Heart Disease Neurological: Yes (encephalopathy-hypoxia, anoxic brain injury; POOR MEMORY) Reproductive Disorders: No Sexually Transmitted Disease: No Genitourinary: Yes Renal Failure Gastrointestinal: Yes Gastroesophageal Reflux Musculoskeletal: Yes (GAIT DISTURBANCE) Endocrine: No (OBESITY) HEENT: No Loss of Vision: Denies Hearing Impairment: Denies Cancer: No Psychosocial: Yes (per med record) Anxiety, Bipolar, Depression Integumentary: No Blood Disorders: Yes (ANEMIA) Family Medical History Patient reports no known family medical history. No Pertinent Family Hx Physical Exam Vital Signs Vital Signs - First Documented 06/17/20 18:55 Temp 37.1 Pulse 88 Resp 18 B/P (MAP) 148/88 (108) Pulse Ox 98 O2 Delivery Room Air Capillary Refill : Less Than 3 Seconds Height, Weight, BMI Height: 5'3.00" Weight: 234lbs. 0oz. 106.085738ic; 38.00 BMI Method:Stated General Appearance: No Apparent Distress, WD/WN Neck: Non Tender, Supple Cardiovascular: Regular Rate, Rhythm, No Edema Respiratory: Chest Non Tender, Lungs Clear Gastrointestinal: Non Tender, Soft Back: No CVA Tenderness, No Vertebral Tenderness, Decreased Range of Motion, Muscle Spasm (lower lumbar paraspinal ms) Extremity: Normal Capillary Refill, Non Tender, No Calf Tenderness, No Pedal Edema Neurologic/Psychiatric: Alert, No Motor/Sensory Deficits, Normal Mood/Affect Skin: Normal Color, Warm/Dry Progress/Results/Core Measures Results/Orders My Orders Orders - ALPESH BARBOZA DO Ketorolac Injection (Toradol Injection) (06/17/20 19:15) Orphenadrine Inj (Ed Only) (Norflex Inje (06/17/20 19:15) Vital Signs/I&O 06/17/20 18:55 Temp 37.1 Pulse 88 Resp 18 B/P (MAP) 148/88 (108) Pulse Ox 98 O2 Delivery Room Air Blood Pressure Mean: 108 Departure Impression Primary Impression: Acute lumbar myofascial strain Qualified Codes: S39.012A - Strain of muscle, fascia and tendon of lower back, initial encounter Disposition: 01 HOME, SELF-CARE Condition: Stable Departure-Patient Inst. Decision time for Depature: 19:22 Referrals: MOUNIKA RIGGS MD (PCP/Family) Primary Care Physician Patient Instructions: Lumbar Muscle Strain (DC) Add. Discharge Instructions: See a primary care doctor in 1 week for reevaluation, sooner if worse. All discharge instructions reviewed with patient and/or family. Voiced understanding. Scripts Ibuprofen (Ibuprofen) 800 Mg Tablet 800 MG PO Q8H PRN for PAIN, #30 TAB 0 Refills Prov: ALPESH BARBOZA DO 06/17/20 Cyclobenzaprine HCl (Cyclobenzaprine HCl) 10 Mg Tablet 10 MG PO Q8H PRN for SPASMS, #20 TAB 0 Refills Prov: ALPESH BARBOZA DO 06/17/20 ALPESH BARBOZA DO Jun 17, 2020 19:20
[2020-06-17] MEDS ORDERED: IBUP-1780 PO (19:23)
[2020-06-17] MEDS ORDERED: CYCL10TA9 PO (19:23)
[2020-06-17 19:25] VITALS: BP 148/88
== END 2020-06-17 19:26 | disposition home or self-care (01) ==
LOC: EDUNIT# 18:54 → ER FS 18:55
DX: S39.012A Strain of muscle, fascia and tendon of lower back, initial encounter (principal); X50.1XXA Overexertion from prolonged static or awkward postures, initial encounter; Y93.E2 Activity, laundry; Z95.810 Presence of automatic (implantable) cardiac defibrillator; I10 Essential (primary) hypertension; I42.9 Cardiomyopathy, unspecified; K21.9 Gastro-esophageal reflux disease without esophagitis; E66.9 Obesity, unspecified; F41.9 Anxiety disorder, unspecified; F31.9 Bipolar disorder, unspecified; Z79.899 Other long term (current) drug therapy; Z88.8 Allergy status to other drugs, medicaments and biological substances; Z68.38 Body mass index [BMI] 38.0-38.9, adult
CPT/HCPCS: 99284

== ENCOUNTER 2020-06-23 08:10 | Emergency (ER) | payer MEDICARE, MEDICAID ==
[~2020-06-23] VITALS: Ht 160 cm; Wt 115.2 kg
[~2020-06-23 08:10] MED LIST changes: +CYCL10TA9 PO; +HYDR-3812 PO; -HYDR-83 PO; +IBUP-1780 PO
[2020-06-23] MEDS ORDERED: HYDROcodone/APAP 5 MG/325 MG (LORTAB) TAB PO ONE (08:45)
--- NOTE | 2020-06-23 08:46 | ED Abdominal Pain ---
General Chief Complaint: Abdominal/GI Problems Stated Complaint: LLQ PAIN Source of Information: Patient Exam Limitations: No Limitations History of Present Illness Date Seen by Provider: Jun 23, 2020 Time Seen by Provider: 08:27 Initial Comments Patient arrives to ER by private conveyance with chief complaint of 3 days of pain in her low pelvis suprapubic region. She went to the walk-in clinic and told him it was left lower quadrant pain however when asked to point to the pain she points at her pubis symphysis. She says she had this pain about a month ago and her primary care doctor worked her up with an ultrasound finding an ovarian cyst. She has a history of and cholecystectomy but no other abdominal surgeries. She's been taking Tylenol ahggic-ccn-daifp with minimal relief of pain. No nausea fever chills diarrhea dysuria discharge. She does not take NSAIDs because she has on Eliquis related to history of stroke and blood clots. She had some kind of cardiac thrombus. She is not having any shortness of breath chest pain today. She does not notice any relief of pain with urination or passing a bowel movement. She had a normal bowel movement earlier today and denies any constipation or diarrhea. After her ultrasound she did follow up with her primary care doctor, Dr. Carroll however she does not remember what the next step in the plan was. She does not follow with a set staff fitter. February [address] of the abdomen pelvis showing a dominant right follicle. She is being worked up for possible kidney stone. No evidence of nephrolithiasis noted. Allergies and Home Medications Allergies Coded Allergies: JIA Inhibitors (Verified Allergy, Severe, 05/22/19) ARB-Angiotensin Receptor Antagonist (Verified Allergy, Severe, 05/22/19) baclofen (Unverified Allergy, Unknown, 05/22/19) ON H&P phenazopyridine (Unverified Allergy, Unknown, 05/22/19) ON H&P Home Medications Albuterol Sulfate 8 Gm Hfa.aer.ad, 2 PUFF INH Q6H PRN for SHORTNESS OF BREATH, (Reported) Amlodipine Besylate 10 Mg Tablet, 10 MG PO DAILY, (Reported) Amoxicillin 500 Mg Capsule, 500 MG PO TID Prescribed by: MOIZ MARLEY on 06/13/20 0017 Apixaban 5 Mg Tablet, 5 MG PO BID Prescribed by: RALPH DELCID on 11/01/18 1856 Cyclobenzaprine HCl 10 Mg Tablet, 10 MG PO Q8H PRN for SPASMS Prescribed by: ALPESH BARBOAZ on 06/17/201922 Dicyclomine HCl 10 Mg Capsule, 10 MG PO QID PRN for abdominal pain/nausea Prescribed by: EDISON CHAMBERLAIN on 12/27/19 193 Diphenhydramine HCl 25 Mg Capsule, 25 MG PO Q4H PRN for throat irritation Prescribed by: EDISON CHAMBERLAIN on 05/11/20 1239 Diphenoxylate HCl/Atropine 1 Each Tablet, 1 EACH PO BID PRN for DIARRHEA Prescribed by: ORESTES VELASCO on 11/29/19 230 Doxycycline Hyclate 100 Mg Tablet, 100 MG PO BID Prescribed by: MOIZ MARLEY on 08/28/19 174 Famotidine 40 Mg Tablet, 40 MG PO DAILY Prescribed by: EDISON CHAMBERLAIN on 05/11/20 1239 Fluconazole 100 Mg Tablet, 100 MG PO Q48H Prescribed by: MOIZ MARLEY on 08/28/191745 Fluconazole 100 Mg Tablet, 100 MG PO DAILY PRN Prescribed by: MOIZ MARLEY on 06/13/20 001 Hydrocodone/Acetaminophen 1 Each Tablet, 1 EACH PO Q6H Prescribed by: MOIZ MARLEY on 06/13/20 001 Ibuprofen 800 Mg Tablet, 800 MG PO Q8H PRN for PAIN Prescribed by: ALPESH BARBOZA on 06/17/201922 Methylprednisolone 4 Mg Tab, 4 MG PO UD as directed per dose pack Prescribed by: ANTONIO CALLEJAS on 08/15/19 1841 Metoprolol Tartrate 50 Mg Tablet, 50 MG PO BID Prescribed by: FELECIA FORTUNE on 07/24/15 0841 Prednisone 20 Mg Tab, 40 MG PO DAILY Prescribed by: ANTONIO CALLEJAS on 11/04/19 1759 Patient Home Medication List Home Medication List Reviewed: Yes Review of Systems Review of Systems Constitutional: No chills, No diaphoresis EENTM: No Blurred Vision, No Double Vision Respiratory: Denies Cough, Denies Shortness of Air Cardiovascular: Denies Edema, Denies Irregular Heart Rate Gastrointestinal: See HPI; Denies Abdomen Distended; Abdominal Pain; Denies Constipated, Denies Diarrhea, Denies Nausea Genitourinary: Denies Burning, Denies Discharge, Denies Drainage, Denies Hematuria Musculoskeletal: No back pain, No joint pain Psychiatric/Neurological: Denies Headache, Denies Numbness All Other Systems Reviewed Negative Unless Noted: Yes Past Fmkamjo-Msadvh-Defwan Hx Patient Social History Alcohol Use: Denies Use Recreational Drug Use: No Drug of Choice: 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 PEG TUBE- REMOVED;UTERINE ABLATION) Abdominal, Section, Defibrillator, Gallbladder, Pacemaker Respiratory: Yes (ARDS-CODED; PNEUMOTHORAX 06/2015) Pneumonia, Chronic Bronchitis Currently Using CPAP: No Currently Using BIPAP: No Cardiac: Yes (PULMONARY EDEMA/CARDIAC CAUSE-R/T ATRIAL THROMBUS; CARDIAC ARREST;V-FIB ) Cardiomyopathy, Endocarditis, Hypertension, Valvular Heart Disease Neurological: Yes (encephalopathy-hypoxia, anoxic brain injury; POOR MEMORY) Reproductive Disorders: No Sexually Transmitted Disease: No Genitourinary: Yes Renal Failure Gastrointestinal: Yes Gastroesophageal Reflux Musculoskeletal: Yes (GAIT DISTURBANCE) Endocrine: No (OBESITY) HEENT: No Loss of Vision: Denies Hearing Impairment: Denies Cancer: No Psychosocial: Yes (per med record) Anxiety, Bipolar, Depression Integumentary: No Blood Disorders: Yes (ANEMIA) Family Medical History Patient reports no known family medical history. No Pertinent Family Hx Physical Exam Vital Signs Vital Signs - First Documented 06/23/20 08:20 Temp 36.2 Pulse 79 Resp 16 B/P (MAP) 140/111 (121) Pulse Ox 99 O2 Delivery Room Air Capillary Refill : Height/Weight/BMI Height: 5'3.00" Weight: 234lbs. 0oz. 106.457516tl; 38.00 BMI Method:Stated General Appearance: WD/WN, mild distress HEENT: PERRL/EOMI, pharynx normal Neck: full range of motion, supple, normal inspection Respiratory: lungs clear, normal breath sounds, no respiratory distress, no accessory muscle use Cardiovascular: normal peripheral pulses, regular rate, rhythm Gastrointestinal: normal bowel sounds, non tender, soft, no organomegaly, other (patient indicates the pain is deep in her pelvis behind her pubis symphysis by pointing with one finger.) Extremities: normal range of motion, non-tender, normal inspection, normal capillary refill Neurologic/Psychiatric: alert, normal mood/affect, oriented x 3 Skin: normal color, warm/dry Progress/Results/Core Measures Results/Orders Lab Results Laboratory Tests Test 06/23/20 08:59 06/23/20 09:29 Range/Units White Blood Count 9.6 4.3-11.0 10^3/uL Red Blood Count 4.88 4.35-5.85 10^6/uL Hemoglobin 14.0 11.5-16.0 G/DL Hematocrit 43 35-52 % Mean Corpuscular Volume 88 80-99 FL Mean Corpuscular Hemoglobin 29 25-34 PG Mean Corpuscular Hemoglobin Concent 33 32-36 G/DL Red Cell Distribution Width 14.7 H 10.0-14.5 % Platelet Count 406 H 130-400 10^3/uL Mean Platelet Volume 8.4 7.4-10.4 FL Neutrophils (%) (Auto) 46 42-75 % Lymphocytes (%) (Auto) 46 H 12-44 % Monocytes (%) (Auto) 6 0-12 % Eosinophils (%) (Auto) 2 0-10 % Basophils (%) (Auto) 1 0-10 % Neutrophils # (Auto) 4.4 1.8-7.8 X 10^3 Lymphocytes # (Auto) 4.4 H 1.0-4.0 X 10^3 Monocytes # (Auto) 0.5 0.0-1.0 X 10^3 Eosinophils # (Auto) 0.2 0.0-0.3 10^3/uL Basophils # (Auto) 0.1 0.0-0.1 10^3/uL Sodium Level 137 135-145 MMOL/L Potassium Level 3.9 3.6-5.0 MMOL/L Chloride Level 102 98-107 MMOL/L Carbon Dioxide Level 25 21-32 MMOL/L Anion Gap 10 5-14 MMOL/L Blood Urea Nitrogen 12 7-18 MG/DL Creatinine 1.88 H 0.60-1.30 MG/DL Estimat Glomerular Filtration Rate 38 BUN/Creatinine Ratio 6 Glucose Level 114 H 70-105 MG/DL Calcium Level 9.2 8.5-10.1 MG/DL Corrected Calcium 9.2 8.5-10.1 MG/DL Total Bilirubin 0.2 0.1-1.0 MG/DL Aspartate Amino Transf (AST/SGOT) 15 5-34 U/L Alanine Aminotransferase (ALT/SGPT) 11 0-55 U/L Alkaline Phosphatase 93 40-136 U/L Total Protein 7.1 6.4-8.2 GM/DL Albumin 4.0 3.2-4.5 GM/DL Serum Test, Qualitative NEGATIVE NEGATIVE Urine Color YELLOW Urine Clarity CLOUDY Urine pH 5.5 5-9 Urine Specific [place] >1.030 1.016-1.022 Urine Protein 3+ H NEGATIVE Urine Glucose (UA) NEGATIVE NEGATIVE Urine Ketones NEGATIVE NEGATIVE Urine Nitrite NEGATIVE NEGATIVE Urine Bilirubin NEGATIVE NEGATIVE Urine Urobilinogen 0.2 < = 1.0 MG/DL Urine Leukocyte Esterase NEGATIVE NEGATIVE Urine RBC (Auto) TRACE H NEGATIVE Urine RBC NONE /HPF Urine WBC 2-5 /HPF Urine Squamous Epithelial Cells >50 H /HPF Urine Crystals NONE /LPF Urine Bacteria LARGE H /HPF Urine Casts NONE /LPF Urine Mucus NEGATIVE /LPF Urine Culture Indicated NO My Orders Orders - ANTONIO CALLEJAS Ua Culture If Indicated (06/23/20 08:18) Cbc With Automated Diff (06/23/20 08:37) Comprehensive Metabolic Panel (06/23/20 08:37) Hcg,Qualitative Serum (06/23/20 08:37) Hydrocodone/Apap 5/325 Tablet (Lortab 5 (06/23/20 08:45) Medications Given in ED Current Medications Medications Dose Ordered Sig/Mikal Route Start Time Stop Time Status Last Admin Dose Admin Acetaminophen/ Hydrocodone Bitart 1 tab ONCE ONCE PO 06/23/20 08:45 06/23/20 08:46 DC 06/23/20 09:03 1 TAB Vital Signs/I&O 06/23/20 08:20 Temp 36.2 Pulse 79 Resp 16 B/P (MAP) 140/111 (121) Pulse Ox 99 O2 Delivery Room Air Progress Progress Note #1: Time: 08:48 Progress Note Aseptic vital signs and a nonacute abdominal exam. Plan to check some basic labs give her hydrocodone for her discomfort. If she has some worrisome labs and I would obtain an ultrasound transvaginal however I do not see an ultrasound previously. There is a dominant right follicle seen on previous CT however. Primary reasonable to have her follow-up with her primary care doctor or with a set staff fitter for further management if we can control her symptoms. Nursing staff called the walk-in clinic and they didn't collect a urine dipstick on her showing significant protein and trace red blood cells but no microscopy was obtained. Plan to obtain a urine with microscopy today. Progress Note #2: Time: 10:08 Progress Note The patient's pain is significantly improved. We discussed that it may be related to her ovarian cyst which is already known versus possibly endometriosis and that she should follow-up with a set staff fitter. In the past she used Dr. Beaver for her obstetrics. We will provide her with a short course of hydrocodone to help get through this and encourage her to call Dr. Beaver today to set up an appointment. Departure Impression Primary Impression: Ovarian cyst Qualified Codes: N83.201 - Unspecified ovarian cyst, right side Disposition: 01 HOME, SELF-CARE Condition: Stable Departure-Patient Inst. Decision time for Depature: 10:08 Referrals: MOUNIKA RIGGS MD (PCP/Family) Primary Care Physician JOHN BARNEY DO Patient Instructions: Ovarian Cysts Add. Discharge Instructions: Call Dr. Barney clinic and set up an appointment. Hydrocodone one tablet every 6 hours as necessary for breakthrough pain that do es not respond to Tylenol, heating pads and rest. Return to the ER if you experience fever or other worrisome symptoms such as i ntractable pain or nausea. Hydrocodone will cause drowsiness so should not be mixed with alcohol. Hydrocodone will cause constipation so you can use MiraLAX once or twice a day to keep regular. All discharge instructions reviewed with patient and/or family. Voiced understanding. Scripts Hydrocodone/Acetaminophen (Hydrocodone-Acetamin 5-325 mg) 1 Each Tablet 1 EACH PO Q6H PRN for PAIN-BREAKTHROUGH for 3 Days, #12 TAB 0 Refills Prov: ANTONIO CALLEJAS 06/23/20 Copy Copies To 1: JOHN BARNEY DO ANTONIO CALLEJAS Jun 23, 2020 08:46
[2020-06-23 09:10] LABS: HEMATOCRIT 43 % (35-52); MEAN CORPUSCULAR HEMOGLOBIN 29 PG (25-34); MEAN CORPUSCULAR HGB CONC 33 G/DL (32-36); MEAN CORPUSCULAR VOLUME 88 FL (80-99); PLATELET COUNT 406 10^3/uL (130-400); RED CELL DISTRIBUTION WIDTH 14.7 % (10.0-14.5); WHITE BLOOD COUNT 9.6 10^3/uL (4.3-11.0)
[2020-06-23 09:11] LABS: BASOPHILS # (AUTO) 0.1 10^3/uL (0.0-0.1); BASOPHILS % (AUTO) 1 % (0-10); EOSINOPHILS # (AUTO) 0.2 10^3/uL (0.0-0.3); EOSINOPHILS % (AUTO) 2 % (0-10); LYMPHOCYTES # (AUTO) 4.4 X 10^3 (1.0-4.0); LYMPHOCYTES % (AUTO) 46 % (12-44); MEAN PLATELET VOLUME 8.4 FL (7.4-10.4); MONOCYTES # (AUTO) 0.5 X 10^3 (0.0-1.0); MONOCYTES % (AUTO) 6 % (0-12); NEUTROPHILS # (AUTO) 4.4 X 10^3 (1.8-7.8); NEUTROPHILS % (AUTO) 46 % (42-75)
[2020-06-23 09:30] LABS: BILIRUBIN,TOTAL 0.2 MG/DL (0.1-1.0); CALCIUM 9.2 MG/DL (8.5-10.1); CREATININE SERUM 1.88 MG/DL (0.60-1.30); POTASSIUM 3.9 MMOL/L (3.6-5.0)
[2020-06-23 09:31] LABS: TOTAL PROTEIN 7.1 GM/DL (6.4-8.2)
[2020-06-23 09:47] LABS: CLARITY,URINE CLOUDY; COLOR,URINE YELLOW; PH,URINE 5.5 (5-9); PROTEIN,URINE 3+ (NEGATIVE)
[2020-06-23 09:48] LABS: BACTERIA,URINE LARGE /HPF; BILIRUBIN,URINE NEGATIVE (NEGATIVE); GLUCOSE, URINE (UA) NEGATIVE (NEGATIVE); KETONES,URINE NEGATIVE (NEGATIVE); LEUKOCYTE ESTERASE ,URINE NEGATIVE (NEGATIVE); NITRITE,URINE NEGATIVE (NEGATIVE); SQUAMOUS EPITHELIAL CELL,UR >50 /HPF
[2020-06-23] MEDS ORDERED: HYDR-3812 PO (10:10)
[2020-06-23 10:19] VITALS: BP 145/98
== END 2020-06-23 10:14 | disposition home or self-care (01) ==
LOC: EDUNIT# 08:10 → ER FS 08:12
DX: N83.201 Unspecified ovarian cyst, right side (principal); I10 Essential (primary) hypertension; K21.9 Gastro-esophageal reflux disease without esophagitis; Z79.01 Long term (current) use of anticoagulants; Z86.73 Personal history of transient ischemic attack (TIA), and cerebral infarction without residual deficits; Z86.718 Personal history of other venous thrombosis and embolism; Z88.8 Allergy status to other drugs, medicaments and biological substances; Z79.52 Long term (current) use of systemic steroids; Z87.891 Personal history of nicotine dependence; Z95.810 Presence of automatic (implantable) cardiac defibrillator
CPT/HCPCS: 36415; 80053; 81000; 84703; 85025

== ENCOUNTER 2020-07-23 05:58 | Emergency (ER) | payer MEDICARE, MEDICAID ==
[~2020-07-23] VITALS: Ht 160 cm; Wt 115.5 kg
[2020-07-23 06:07] VITALS: BP 150/127
[2020-07-23] MEDS ORDERED: oxyCODONE/APAP 10/325MG (PERCOCET 10) TABLET PO ONE (06:15)
[2020-07-23] MEDS ORDERED: oxyCODONE/APAP 5/325MG (PERCOCET 5) TABLET PO ONE (06:15)
[2020-07-23] MEDS ORDERED: DIAZEPAM 5 MG (VALIUM) TABLET PO ONE (06:15)
[2020-07-23] MEDS ORDERED: OXYC1TAB87 PO (06:23)
--- NOTE | 2020-07-23 06:23 | ED Back Pain ---
General Chief Complaint: Back Problems Stated Complaint: BACK DISORDER Nursing Triage Note: pt states low back pain traveling down right leg, no known injury Nursing Sepsis Screen: No Definite Risk History of Present Illness Date Seen by Provider: Jul 23, 2020 Time Seen by Provider: 06:19 Initial Comments Patient presenting to emergency department for evaluation of low back pain that is radiating down the back of her right leg that has been going on for several days but she says she has been trying to take Tylenol and ibuprofen and Flexeril with no relief in her symptoms. She says she has a known history of sciatica and sometimes it flares up. She denies any unilateral weakness numbness tingling saddle anesthesia bowel or bladder incontinence. She denies any known injury or trauma and no dysuria fevers chills or other systemic symptoms. She appears uncomfortable but is nontoxic with normal vital signs and appeared to ambulate to the room with a steady gait. Allergies and Home Medications Allergies Coded Allergies: JIA Inhibitors (Verified Allergy, Severe, 05/22/19) ARB-Angiotensin Receptor Antagonist (Verified Allergy, Severe, 05/22/19) baclofen (Unverified Allergy, Unknown, 05/22/19) ON H&P phenazopyridine (Unverified Allergy, Unknown, 05/22/19) ON H&P Home Medications Albuterol Sulfate 8 Gm Hfa.aer.ad, 2 PUFF INH Q6H PRN for SHORTNESS OF BREATH, (Reported) Amlodipine Besylate 10 Mg Tablet, 10 MG PO DAILY, (Reported) Amoxicillin 500 Mg Capsule, 500 MG PO TID Prescribed by: MOIZ MARLEY on 06/13/20 0017 Apixaban 5 Mg Tablet, 5 MG PO BID Prescribed by: RALPH DELCID on 11/01/18 185 Cyclobenzaprine HCl 10 Mg Tablet, 10 MG PO Q8H PRN for SPASMS Prescribed by: ALPESH BARBOZA on 06/17/20 192 Dicyclomine HCl 10 Mg Capsule, 10 MG PO QID PRN for abdominal pain/nausea Prescribed by: EDISON CHAMBERLAIN on 12/27/19 1936 Diphenhydramine HCl 25 Mg Capsule, 25 MG PO Q4H PRN for throat irritation Prescribed by: EDISON CHAMBERLAIN on 05/11/20 1239 Diphenoxylate HCl/Atropine 1 Each Tablet, 1 EACH PO BID PRN for DIARRHEA Prescribed by: ORESTES VELASCO on 11/29/19 2309 Doxycycline Hyclate 100 Mg Tablet, 100 MG PO BID Prescribed by: MOIZ MARLEY on 08/28/19 174 Famotidine 40 Mg Tablet, 40 MG PO DAILY Prescribed by: EDISON CHMABERLAIN on 05/11/20 1239 Fluconazole 100 Mg Tablet, 100 MG PO Q48H Prescribed by: MOIZ MARLEY on 08/28/19 174 Fluconazole 100 Mg Tablet, 100 MG PO DAILY PRN Prescribed by: MOIZ MARLEY on 06/13/20 001 Hydrocodone/Acetaminophen 1 Each Tablet, 1 EACH PO Q6H Prescribed by: MOIZ MARLEY on 06/13/20 001 Hydrocodone/Acetaminophen 1 Each Tablet, 1 EACH PO Q6H PRN for PAIN-BREAKTHROUGH Prescribed by: ANTONIO CALLEJAS on 06/23/20 1010 Ibuprofen 800 Mg Tablet, 800 MG PO Q8H PRN for PAIN Prescribed by: ALPESH BARBOZA on 06/17/20 1923 Methylprednisolone 4 Mg Tab, 4 MG PO UD as directed per dose pack Prescribed by: ANTONIO CALLEJAS on 08/15/19 1841 Metoprolol Tartrate 50 Mg Tablet, 50 MG PO BID Prescribed by: FLEECIA FORTUNE on 07/24/15 0841 Prednisone 20 Mg Tab, 40 MG PO DAILY Prescribed by: ANTONIO CALLEJAS on 11/04/19 1759 Patient Home Medication List Home Medication List Reviewed: Yes Review of Systems Constitutional: no symptoms reported EENTM: no symptoms reported Respiratory: no symptoms reported Cardiovascular: no symptoms reported Gastrointestinal: no symptoms reported Genitourinary: no symptoms reported Musculoskeletal: back pain All Other Systems Reviewed Negative Unless Noted: Yes Past Vbhwoxn-Bdqfld-Exvnif Hx Patient Social History Alcohol Use: Denies Use Recreational Drug Use: No Drug of Choice: 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 PEG TUBE- REMOVED;UTERINE ABLATION) Abdominal, Section, Defibrillator, Gallbladder, Pacemaker Respiratory: Yes (ARDS-CODED; PNEUMOTHORAX 06/2015) Pneumonia, Chronic Bronchitis Currently Using CPAP: No Currently Using BIPAP: No Cardiac: Yes (PULMONARY EDEMA/CARDIAC CAUSE-R/T ATRIAL THROMBUS; CARDIAC ARREST;V-FIB ) Cardiomyopathy, Endocarditis, Hypertension, Valvular Heart Disease Neurological: Yes (encephalopathy-hypoxia, anoxic brain injury; POOR MEMORY) Reproductive Disorders: No Sexually Transmitted Disease: No Genitourinary: Yes Renal Failure Gastrointestinal: Yes Gastroesophageal Reflux Musculoskeletal: Yes (GAIT DISTURBANCE) Endocrine: No (OBESITY) HEENT: No Loss of Vision: Denies Hearing Impairment: Denies Cancer: No Psychosocial: Yes (per med record) Anxiety, Bipolar, Depression Integumentary: No Blood Disorders: Yes (ANEMIA) Family Medical History Patient reports no known family medical history. No Pertinent Family Hx Physical Exam Vital Signs Vital Signs - First Documented 07/23/20 06:07 Temp 36.0 Pulse 88 Resp 18 B/P (MAP) 150/127 (135) Pulse Ox 99 O2 Delivery Room Air Capillary Refill : Less Than 3 Seconds Height, Weight, BMI Height: 5'3.00" Weight: 234lbs. 0oz. [id number]; 45.00 BMI Method:Stated General Appearance: No Apparent Distress, WD/WN Cardiovascular: Regular Rate, Rhythm Respiratory: No Respiratory Distress Peripheral Pulses: 2+ Dorsalis Pedis (R), 2+ Left Dors-Pedis (L) Back: Other (R paraspinal ttp. No midline L spine ttp.) Neurologic/Psychiatric: Alert, Oriented x3, No Motor/Sensory Deficits Progress/Results/Core Measures Results/Orders My Orders Orders - MOUNIKA GARCIA DO Dexamethasone Injection (Decadron Inje (07/23/20 06:15) Oxycodone/Acet 10/325mg Tablet (Percocet (07/23/20 06:15) Diazepam Tablet (Valium Tablet) (07/23/20 06:15) Oxycodone/Apap 5/325mg Tablet (Percocet (07/23/20 06:15) Vital Signs/I&O 07/23/20 06:07 Temp 36.0 Pulse 88 Resp 18 B/P (MAP) 150/127 (135) Pulse Ox 99 O2 Delivery Room Air Blood Pressure Mean: 135 Progress Progress Note : Progress Note Patient with lumbar radiculopathy symptoms that she says are similar to prior presentations. No red flag signs or symptoms necessitating an emergent MRI. She says she is not a diabetic so I gave her dose of Decadron here and will give her dose of Percocet and Valium and prescribe her a short course of Percocet and told to follow primary care provider within the next 4-5 days and come back to the ED sooner with worsening pain neurologic changes or other general concerns. Patient aware and agreeable with plan and verbalized understanding of the above instructions. Departure Impression Primary Impression: Back pain Qualified Codes: M54.41 - Lumbago with sciatica, right side; G89.29 - Other chronic pain Additional Impression: Lumbar radiculopathy Disposition: 01 HOME, SELF-CARE Condition: Stable Departure-Patient Inst. Referrals: MOUNIKA RIGGS MD (PCP/Family) Primary Care Physician Patient Instructions: Radiculopathy (DC) Scripts Oxycodone HCl/Acetaminophen (Percocet 5-325 mg Tablet) 1 Each Tablet 1 TAB PO Q6H for PAIN-MODERATE MDD 6 TABS for 7 Days, #10 TAB Prov: MOUNIKA GARCAI DO 07/23/20 MOUNIKA GARCIA DO Jul 23, 2020 06:23
== END 2020-07-23 06:25 | disposition home or self-care (01) ==
LOC: EDUNIT# 05:58 → ER FS 06:01
DX: M54.16 Radiculopathy, lumbar region (principal); I10 Essential (primary) hypertension; K21.9 Gastro-esophageal reflux disease without esophagitis; E66.9 Obesity, unspecified; F17.210 Nicotine dependence, cigarettes, uncomplicated; Z88.8 Allergy status to other drugs, medicaments and biological substances; Z79.01 Long term (current) use of anticoagulants; Z79.52 Long term (current) use of systemic steroids; Z95.810 Presence of automatic (implantable) cardiac defibrillator; Z87.820 Personal history of traumatic brain injury; Z68.42 Body mass index [BMI] 45.0-49.9, adult
CPT/HCPCS: 99284

== ENCOUNTER 2020-09-22 17:47 | Emergency (ER) | payer MEDICARE, MEDICAID ==
[~2020-09-22] VITALS: Ht 190.5 cm; Wt 111.1 kg
[~2020-09-22 17:47] MED LIST changes: +AMLO-251 PO; -AMLO10TA7 PO; +CLN.1T PO; -CLON0.1T PO; -HYDR-3812 PO; +HYDR50CA3 PO; +MELO15TA14 PO; +ORPH100T PO; +OXYC1TAB87 PO
[2020-09-22] MEDS ORDERED: NS IV 500 ML 500 ML IV STA (18:04)
--- NOTE | 2020-09-22 18:09 | ED General ---
General Stated Complaint: ABD PAIN Source of Information: Patient, Old Records, RN/MD, RN Notes Reviewed History of Present Illness Date Seen by Provider: Sep 22, 2020 Time Seen by Provider: 18:00 Initial Comments This patient is a 30-year-old female presents to the emergency department complaining of right lower quadrant abdominal pain. Patient has a long history of abdominal pain issues and no. He says. Patient states she been hurting for the past 2 days. Patient states that she was seen and [facility] today and had a urinalysis only done. Patient's records do not reflect an ER visit today. Patient's medical record shows she does take numerous medications for pain at home. Patient has had several visits to the emergency department for similar Complaints. We'll do medical evaluation treatment is needed. Allergies and Home Medications Allergies Coded Allergies: JIA Inhibitors (Verified Allergy, Severe, 05/22/19) ARB-Angiotensin Receptor Antagonist (Verified Allergy, Severe, 05/22/19) baclofen (Unverified Allergy, Unknown, 05/22/19) ON H&P phenazopyridine (Unverified Allergy, Unknown, 05/22/19) ON H&P Home Medications Albuterol Sulfate 8 Gm Hfa.aer.ad, 2 PUFF INH Q6H PRN for SHORTNESS OF BREATH, (Reported) Amlodipine Besylate 10 Mg Tablet, 10 MG PO DAILY, (Reported) Amoxicillin 500 Mg Capsule, 500 MG PO TID Prescribed by: MOIZ MARLEY on 06/13/20 0017 Apixaban 5 Mg Tablet, 5 MG PO BID Prescribed by: RALPH DELCID on 11/01/18 185 Cyclobenzaprine HCl 10 Mg Tablet, 10 MG PO Q8H PRN for SPASMS Prescribed by: ALPESH BARBOZA on 06/17/201922 Dicyclomine HCl 10 Mg Capsule, 10 MG PO QID PRN for abdominal pain/nausea Prescribed by: EDISON CHAMBERLAIN on 12/27/19 193 Diphenhydramine HCl 25 Mg Capsule, 25 MG PO Q4H PRN for throat irritation Prescribed by: EDISON CHAMBERLAIN on 05/11/20 1239 Diphenoxylate HCl/Atropine 1 Each Tablet, 1 EACH PO BID PRN for DIARRHEA Prescribed by: ORESTES VELASCO on 11/29/19 2309 Doxycycline Hyclate 100 Mg Tablet, 100 MG PO BID Prescribed by: MOIZ MARLEY on 08/28/19 174 Famotidine 40 Mg Tablet, 40 MG PO DAILY Prescribed by: EDISON CHAMBERLAIN on 05/11/20 1239 Fluconazole 100 Mg Tablet, 100 MG PO Q48H Prescribed by: MOIZ MARLEY on 08/28/191745 Fluconazole 100 Mg Tablet, 100 MG PO DAILY PRN Prescribed by: MOIZ MARLEY on 06/13/20 001 Hydrocodone/Acetaminophen 1 Each Tablet, 1 EACH PO Q6H Prescribed by: MIOZ MARLEY on 06/13/2016 Hydrocodone/Acetaminophen 1 Each Tablet, 1 EACH PO Q6H PRN for PAIN-BREAKTHROUGH Prescribed by: ANTONIO CALLEJAS on 06/23/20 1010 Hydroxyzine Pamoate 50 Mg Capsule, 50 MG PO Q6H PRN for ANXIETY Prescribed by: RODRIGO HILL on 08/03/20 014 Ibuprofen 800 Mg Tablet, 800 MG PO Q8H PRN for PAIN Prescribed by: ALPESH BARBOZA on 06/17/20 192 Meloxicam 15 Mg Tablet, 15 MG PO DAILY Prescribed by: RODRIGO HILL on 08/03/20 014 Methylprednisolone 4 Mg Tab, 4 MG PO UD as directed per dose pack Prescribed by: ANTONIO CALLEJAS on 08/15/19 1841 Metoprolol Tartrate 50 Mg Tablet, 50 MG PO BID Prescribed by: FELECIA FORTUNE on 07/24/15 0841 Orphenadrine Citrate 100 Mg Tablet.er, 100 MG PO BID Prescribed by: RODRIGO HILL on 08/03/20 014 Oxycodone HCl/Acetaminophen 1 Each Tablet, 1 TAB PO Q6H Prescribed by: MOUNIKA GARCIA on 07/23/20 0623 Prednisone 20 Mg Tab, 40 MG PO DAILY Prescribed by: ANTONIO CALLEJAS on 11/04/19 1759 Patient Home Medication List Home Medication List Reviewed: Yes Review of Systems Review of Systems Constitutional: No no symptoms reported; see HPI; No chills, No diaphoresis, No dizziness, No fever, No malaise, No weakness, No weight gain, No weight loss, No other EENTM: No see HPI, No no symptoms reported, No ear discharge, No hearing loss, No ear pain, No blurred vision, No double vision, No eye pain, No tearing, No vision loss, No dental problems, No hoarseness, No mouth pain, No mouth s welling, No epistaxis, No nose congestion, No nose pain, No throat pain, No throat swelling, No other Respiratory: No no symptoms reported, No see HPI, No cough, No dyspnea on exertion, No hemoptysis, No orthopnea, No phlegm, No short of breath, No stridor, No wheezing, No other Cardiovascular: No no symptoms reported, No see HPI, No chest pain, No edema, No Hx of Intervention, No palpitations, No syncope, No vascular heart diseas, No other Gastrointestinal: No RUQ, No LUQ, No RLQ, No LLQ, No no symptoms reported, No see HPI; abdominal pain; No constipation, No diarrhea, No dysphagia, No hematemesis, No heartburn, No jaundice, No loss of appetite, No melena, No nausea, No vomiting, No other Genitourinary: No no symptoms reported, No see HPI, No decreased output, No discharge, No dysuria, No frequency, No hematuria, No hesitancy, No incontinence, No nocturia, No pain, No other Musculoskeletal: No no symptoms reported, No see HPI, No back pain, No gout, No joint pain, No joint swelling, No muscle pain, No muscle stiffness, No muscle cramps, No muscle twitching, No muscle weakness, No neck pain, No other Skin: No no symptoms reported, No see HPI, No change in color, No change in hair/nails, No dryness, No hx of skin cancer, No lesions, No lumps, No pruritus, No rash, No other All Other Systems Reviewed Negative Unless Noted: Yes Past Skhlqfy-Kdukna-Tyzbli Hx Patient Social History Drug of Choice: + IV METH USE, CLAIMS NONE SINCE 2015 Type Used: Cigarettes 2nd Hand Smoke Exposure: No Recent Foreign Travel: No Contact w/Someone Who Travel: No Recent Hopitalizations: No Immunizations Up To Date Tetanus Booster (TDap): Unknown PED Vaccines UTD: Yes Date of Pneumonia Vaccine: Sep 09, 2018 Date of Influenza Vaccine: Aug 19, 2015 Seasonal Allergies Seasonal Allergies: No Past Medical History Surgeries: Yes (PACER/DEFIB 2014; DEFIB PLACED 05/10/19. PEG TUBE- REMOVED;UTERINE ABLATION) Abdominal, Section, Defibrillator, Gallbladder, Pacemaker Respiratory: Yes (ARDS-CODED; PNEUMOTHORAX 06/2015) Pneumonia, Chronic Bronchitis Currently Using CPAP: No Currently Using BIPAP: No Cardiac: Yes (PULMONARY EDEMA/CARDIAC CAUSE-R/T ATRIAL THROMBUS; CARDIAC ARREST;V-FIB ) Cardiomyopathy, Endocarditis, Hypertension, Valvular Heart Disease Neurological: Yes (encephalopathy-hypoxia, anoxic brain injury; POOR MEMORY) Reproductive Disorders: No Sexually Transmitted Disease: No Genitourinary: Yes Renal Failure Gastrointestinal: Yes Gastroesophageal Reflux Musculoskeletal: Yes (GAIT DISTURBANCE) Endocrine: No (OBESITY) HEENT: No Loss of Vision: Denies Hearing Impairment: Denies Cancer: No Psychosocial: Yes Anxiety, Bipolar, Depression Integumentary: No Blood Disorders: Yes (ANEMIA) Family Medical History Patient reports no known family medical history. No Pertinent Family Hx SOCIAL HISTORY: -OCCASIONAL ETOH -HX OF IV METH USE, CLAIMS NO USE SINCE 2015 -QUIT SMOKING SEVERAL YEARS AGO Physical Exam Vital Signs Vital Signs - First Documented 09/22/20 18:00 Temp 36.3 Pulse 82 Resp 16 B/P (MAP) 184/130 (148) Pulse Ox 98 O2 Delivery Room Air Capillary Refill : Height, Weight, BMI Height: 5'3.00" Weight: 234lbs. 0oz. 106.331629sn; 48.00 BMI Method:Stated General Appearance: No Apparent Distress, WD/WN Respiratory: Chest Non Tender, Lungs Clear, Normal Breath Sounds, No Accessory Muscle Use, No Respiratory Distress Cardiovascular: Regular Rate, Rhythm, No Edema, No Gallop, No JVD, No Murmur, Normal Peripheral Pulses Gastrointestinal: Normal Bowel Sounds, No Organomegaly, No Pulsatile Mass, Non Tender, Soft Back: Normal Inspection, No CVA Tenderness, No Vertebral Tenderness Neurologic/Psychiatric: Alert, Oriented x3, No Motor/Sensory Deficits, Normal Mood/Affect Progress/Results/Core Measures Suspected Sepsis SIRS Temperature: Pulse: Respiratory Rate: Laboratory Tests 09/22/20 18:35: White Blood Count 7.8 Blood Pressure / Mean: Laboratory Tests 09/22/20 18:35: Platelet Count 366 Results/Orders Lab Results Laboratory Tests Test 09/22/20 18:00 09/22/20 18:35 Range/Units Urine Color YELLOW Urine Clarity CLOUDY H Urine pH 5.5 5-9 Urine Specific Lloyd >=1.030 1.016-1.022 Urine Protein 3+ H NEGATIVE Urine Glucose (UA) NEGATIVE NEGATIVE Urine Ketones NEGATIVE NEGATIVE Urine Nitrite NEGATIVE NEGATIVE Urine Bilirubin NEGATIVE NEGATIVE Urine Urobilinogen 0.2 < = 1.0 MG/DL Urine Leukocyte Esterase NEGATIVE NEGATIVE Urine RBC (Auto) NEGATIVE NEGATIVE Urine RBC NONE /HPF Urine WBC 5-10 H /HPF Urine Squamous Epithelial Cells >50 H /HPF Urine Crystals NONE /LPF Urine Bacteria LARGE H /HPF Urine Casts PRESENT /LPF Urine Hyaline Casts 5-10 H /LPF Urine Mucus SMALL H /LPF Urine Culture Indicated NO Urine Opiates Screen NEGATIVE NEGATIVE Urine Oxycodone Screen NEGATIVE NEGATIVE Urine Methadone Screen NEGATIVE NEGATIVE Urine Propoxyphene Screen NEGATIVE NEGATIVE Urine Barbiturates Screen NEGATIVE NEGATIVE Ur Tricyclic Antidepressants Screen POSITIVE H NEGATIVE Urine Phencyclidine Screen NEGATIVE NEGATIVE Urine Amphetamines Screen NEGATIVE NEGATIVE Urine Methamphetamines Screen NEGATIVE NEGATIVE Urine Benzodiazepines Screen POSITIVE H NEGATIVE Urine Cocaine Screen NEGATIVE NEGATIVE Urine Cannabinoids Screen NEGATIVE NEGATIVE White Blood Count 7.8 4.3-11.0 10^3/uL Red Blood Count 4.72 4.35-5.85 10^6/uL Hemoglobin 13.6 11.5-16.0 G/DL Hematocrit 41 35-52 % Mean Corpuscular Volume 88 80-99 FL Mean Corpuscular Hemoglobin 29 25-34 PG Mean Corpuscular Hemoglobin Concent 33 32-36 G/DL Red Cell Distribution Width 14.4 10.0-14.5 % Platelet Count 366 130-400 10^3/uL Mean Platelet Volume 8.7 7.4-10.4 FL Immature Granulocyte % (Auto) 0 % Neutrophils (%) (Auto) 40 L 42-75 % Lymphocytes (%) (Auto) 51 H 12-44 % Monocytes (%) (Auto) 6 0-12 % Eosinophils (%) (Auto) 2 0-10 % Basophils (%) (Auto) 1 0-10 % Neutrophils # (Auto) 3.1 1.8-7.8 X 10^3 Lymphocytes # (Auto) 4.0 1.0-4.0 X 10^3 Monocytes # (Auto) 0.5 0.0-1.0 X 10^3 Eosinophils # (Auto) 0.2 0.0-0.3 10^3/uL Basophils # (Auto) 0.1 0.0-0.1 10^3/uL Immature Granulocyte # (Auto) 0.0 0.0-0.1 10^3/uL My Orders Orders - NAHOMY BAGLEY MD Ed Iv/Invasive Line Start (09/22/20 18:04) Acetaminophen (09/22/20 18:04) Cbc With Automated Diff (09/22/20 18:04) Comprehensive Metabolic Panel (09/22/20 18:04) Lipase (09/22/20 18:04) Urinalysis (09/22/20 18:04) Drug Screen Stat (Urine) (09/22/20 18:04) Ct Abd/Pelvis Wo(Kidney Stone) (09/22/20 18:04) Ns Iv 500 Ml (Sodium Chloride 0.9%) (09/22/20 18:04) Urine Bedside (09/22/20 18:04) Vital Signs/I&O 09/22/20 18:00 Temp 36.3 Pulse 82 Resp 16 B/P (MAP) 184/130 (148) Pulse Ox 98 O2 Delivery Room Air Capillary Refill : Progress Note : Time: 19:10 Progress Note FINDINGS: Evaluation of the abdominal viscera is mildly limited without contrast. Lower chest: The lung bases are clear. No pericardial or pleural effusion. Partially visualized pacemaker leads in the right atrium and right ventricle. Peritoneum: No free intraperitoneal air or fluid. Liver and biliary system: Unenhanced liver is normal. Cholecystectomy. No pathologic biliary duct dilatation. Spleen and Pancreas: Spleen is normal. Unenhanced pancreas is grossly normal. Adrenals: Normal. tract: No renal or ureteral calculi. No obstructive uropathy. Uterus and ovaries are normal in appearance. GI tract: Stomach is decompressed. No bowel obstruction. No pericolonic inflammatory changes. Normal appendix. Vasculature and Lymph nodes: Normal caliber aorta. No abdominal or pelvic lymphadenopathy. Musculoskeletal: No concerning osseous lesion. IMPRESSION: 1. No acute obstructive or inflammatory process in abdomen and pelvis. 2. No urinary tract calculi. Pelvic pain/abdominal pain appears to be stable. Patient is calm in the emergency department. Negative evaluation otherwise. Patient is to encourage by mouth fluids. Tylenol Motrin as needed for fever pain. Take medications as instructed. Follow-up with PCP in 2-3 days. Departure Impression Primary Impression: Abdominal pain Disposition: HOME, SELF-CARE Condition: Stable Departure-Patient Inst. Decision time for Depature: 19:11 Referrals: MOUNIKA RIGGS MD (PCP/Family) Primary Care Physician Patient Instructions: Acute Pelvic Pain (DC) Add. Discharge Instructions: Patient is to encourage by mouth fluids. Tylenol Motrin as needed for fever pain. Take medications as instructed. Follow-up with PCP in 2-3 days. Scripts Dicyclomine HCl (Dicyclomine HCl) 20 Mg Tablet 20 MG PO TID, #30 TAB 0 Refills Prov: NAHOMY BAGLEY MD 09/22/20 Metronidazole (Flagyl) 500 Mg Tablet 500 MG PO TID, #20 TAB 0 Refills Prov: NAHOMY BAGLEY MD 09/22/20 NAHOMY BAGLEY MD Sep 22, 2020 18:08
--- NOTE | 2020-09-22 18:27 | NUR ---
ATTEMPTED 3 IV STICKS. UNSUCCESSFUL DUE TO POOR IV ACCESS. LAB CALLED AT THIS TIME TO ATTEMPT LAB DRAW.
--- NOTE | 2020-09-22 18:50 | NUR ---
REPORT WAS GIVEN TO ARAVIND HENRY. CARE WAS TRANSFERRED.
[2020-09-22 18:51] LABS: BACTERIA,URINE LARGE /HPF; BILIRUBIN,URINE NEGATIVE (NEGATIVE); CLARITY,URINE CLOUDY; COLOR,URINE YELLOW; GLUCOSE, URINE (UA) NEGATIVE (NEGATIVE); KETONES,URINE NEGATIVE (NEGATIVE); LEUKOCYTE ESTERASE ,URINE NEGATIVE (NEGATIVE); NITRITE,URINE NEGATIVE (NEGATIVE); PH,URINE 5.5 (5-9); PROTEIN,URINE 3+ (NEGATIVE)
[2020-09-22 18:52] LABS: SQUAMOUS EPITHELIAL CELL,UR >50 /HPF
[2020-09-22 18:57] LABS: AMPHETAMINE SCREEN, URINE NEGATIVE (NEGATIVE); BARBITURATE SCREEN URINE NEGATIVE (NEGATIVE); BENZODIAZEPINES SCREEN URINE POSITIVE (NEGATIVE); CANNABINOID SCREEN, URINE NEGATIVE (NEGATIVE); COCAINE SCREEN URINE NEGATIVE (NEGATIVE); METHADONE STAT NEGATIVE (NEGATIVE); METHAMPHETAMINE SCREEN URINE S NEGATIVE (NEGATIVE); OPIATE SCREEN URINE NEGATIVE (NEGATIVE); OXYCODONE STAT NEGATIVE (NEGATIVE); PROPOXYPHENE STAT NEGATIVE (NEGATIVE); TRICYCLIC ANTIDEPRESSANTS SCRE POSITIVE (NEGATIVE)
[2020-09-22 18:58] LABS: BASOPHILS % (AUTO) 1 % (0-10); EOSINOPHILS % (AUTO) 2 % (0-10); HEMATOCRIT 41 % (35-52); HEMOGLOBIN 13.6 G/DL (11.5-16.0); LYMPHOCYTES % (AUTO) 51 % (12-44); MEAN CORPUSCULAR HEMOGLOBIN 29 PG (25-34); MEAN CORPUSCULAR HGB CONC 33 G/DL (32-36); MEAN CORPUSCULAR VOLUME 88 FL (80-99); MEAN PLATELET VOLUME 8.7 FL (7.4-10.4); MONOCYTES % (AUTO) 6 % (0-12); NEUTROPHILS % (AUTO) 40 % (42-75); PLATELET COUNT 366 10^3/uL (130-400); WHITE BLOOD COUNT 7.8 10^3/uL (4.3-11.0)
[2020-09-22 18:59] LABS: BASOPHILS # (AUTO) 0.1 10^3/uL (0.0-0.1); EOSINOPHILS # (AUTO) 0.2 10^3/uL (0.0-0.3); MONOCYTES # (AUTO) 0.5 X 10^3 (0.0-1.0); NEUTROPHILS # (AUTO) 3.1 X 10^3 (1.8-7.8)
--- NOTE | 2020-09-22 19:03 | Diagnostic Imaging Report ---
CT ABD/PELVIS WO(KIDNEY STONE) TECHNIQUE: Unenhanced CT imaging of the abdomen and pelvis was performed. 2-D reformats are created and submitted for interpretation. Automatic exposure controls were utilized to optimize patient dose. INDICATION: Flank pain. COMPARISON: None available. FINDINGS: Evaluation of the abdominal viscera is mildly limited without contrast. Lower chest: The lung bases are clear. No pericardial or pleural effusion. Partially visualized pacemaker leads in the right atrium and right ventricle. Peritoneum: No free intraperitoneal air or fluid. Liver and biliary system: Unenhanced liver is normal. Cholecystectomy. No pathologic biliary duct dilatation. Spleen and Pancreas: Spleen is normal. Unenhanced pancreas is grossly normal. Adrenals: Normal. tract: No renal or ureteral calculi. No obstructive uropathy. Uterus and ovaries are normal in appearance. GI tract: Stomach is decompressed. No bowel obstruction. No pericolonic inflammatory changes. Normal appendix. Vasculature and Lymph nodes: Normal caliber aorta. No abdominal or pelvic lymphadenopathy. Musculoskeletal: No concerning osseous lesion. IMPRESSION: 1. No acute obstructive or inflammatory process in abdomen and pelvis. 2. No urinary tract calculi. Dictated by: Dictated on workstation # [id number]
[2020-09-22 19:12] LABS: CARBON DIOXIDE 24 MMOL/L (21-32); CHLORIDE 103 MMOL/L (98-107); SODIUM 138 MMOL/L (135-145)
[2020-09-22] MEDS ORDERED: DICY20TA10 PO (19:12)
[2020-09-22] MEDS ORDERED: METR500T PO (19:12)
[2020-09-22 19:13] LABS: ACETAMINOPHEN < 10 UG/ML (10-30); ALANINE AMINOTRANSFERASE 15 U/L (0-55); ALKALINE PHOSPHATASE 73 U/L (40-136); BILIRUBIN,TOTAL 0.2 MG/DL (0.1-1.0); BUN/CREATININE RATIO 8; CALCIUM 9.4 MG/DL (8.5-10.1); CREATININE SERUM 2.09 MG/DL (0.60-1.30); GFR ESTIMATED 33; GLUCOSE 96 MG/DL (70-105); LIPASE 31 U/L (8-78); TOTAL PROTEIN 6.9 GM/DL (6.4-8.2)
[2020-09-22 19:17] LABS: POTASSIUM 3.7 MMOL/L (3.6-5.0)
[2020-09-22 19:26] VITALS: BP 176/98
== END 2020-09-22 19:26 | disposition home or self-care (01) ==
LOC: EDUNIT# 17:47 → ER FS 17:49
DX: R10.31 Right lower quadrant pain (principal); I10 Essential (primary) hypertension; Z87.891 Personal history of nicotine dependence; Z87.448 Personal history of other diseases of urinary system; Z87.01 Personal history of pneumonia (recurrent); Z86.79 Personal history of other diseases of the circulatory system; Z79.52 Long term (current) use of systemic steroids; Z88.8 Allergy status to other drugs, medicaments and biological substances; Z79.01 Long term (current) use of anticoagulants; Z79.899 Other long term (current) drug therapy; Z95.810 Presence of automatic (implantable) cardiac defibrillator
CPT/HCPCS: 36415; 74176; 80053; 80306; 81000; 83690; 84703; 85025; G0480; 80329

== ENCOUNTER 2020-11-08 22:50 | Emergency (ER) | payer MEDICARE, MEDICAID ==
[~2020-11-08] VITALS: Ht 160.3 cm; Wt 111.2 kg
[~2020-11-08 22:50] MED LIST changes: +DICY20TA10 PO; +LORA-53 PO; -LORA-714 PO; +METR500T PO
[2020-11-08 23:19] LABS: BASOPHILS % (AUTO) 1 % (0-10); EOSINOPHILS # (AUTO) 0.2 10^3/uL (0.0-0.3); EOSINOPHILS % (AUTO) 2 % (0-10); HEMATOCRIT 42 % (35-52); HEMOGLOBIN 13.4 g/dL (11.5-16.0); LYMPHOCYTES % (AUTO) 56 % (12-44); MEAN CORPUSCULAR HEMOGLOBIN 28 pg (25-34); MEAN CORPUSCULAR HGB CONC 32 g/dL (32-36); MEAN CORPUSCULAR VOLUME 89 fL (80-99); MEAN PLATELET VOLUME 9.2 fL (9.0-12.2); MONOCYTES # (AUTO) 0.5 10^3/uL (0.0-1.0); MONOCYTES % (AUTO) 7 % (0-12); NEUTROPHILS # (AUTO) 2.5 10^3/uL (1.8-7.8); NEUTROPHILS % (AUTO) 34 % (42-75); PLATELET COUNT 330 10^3/uL (130-400); WHITE BLOOD COUNT 7.2 10^3/uL (4.3-11.0)
[2020-11-08 23:28] LABS: ALBUMIN 3.7 GM/DL (3.2-4.5)
[2020-11-08 23:29] LABS: CHLORIDE 104 MMOL/L (98-107); POTASSIUM 3.7 MMOL/L (3.6-5.0); SODIUM 137 MMOL/L (135-145)
[2020-11-08 23:31] LABS: GLUCOSE 89 MG/DL (70-105); TOTAL PROTEIN 6.4 GM/DL (6.4-8.2)
[2020-11-08 23:32] LABS: CARBON DIOXIDE 22 MMOL/L (21-32)
[2020-11-08 23:33] LABS: BILIRUBIN,TOTAL 0.1 MG/DL (0.1-1.0)
[2020-11-08 23:35] LABS: ALKALINE PHOSPHATASE 59 U/L (40-136); CREATININE SERUM 2.06 MG/DL (0.60-1.30); GFR ESTIMATED 34
[2020-11-08 23:36] LABS: BUN/CREATININE RATIO 9
[2020-11-08 23:38] LABS: ALANINE AMINOTRANSFERASE 20 U/L (0-55)
--- NOTE | 2020-11-08 23:42 | ED Chest Pain ---
General Chief Complaint: Chest Wall Stated Complaint: CHEST PAIN/TENDER NEAR PACEMAKER Nursing Triage Note: sharp chest wall pain x1 day near pacemaker. Nursing Sepsis Screen: No Definite Risk Source: patient Exam Limitations: no limitations History of Present Illness Date Seen by Provider: Nov 08, 2020 Time Seen by Provider: 23:30 Initial Comments Patient is a 30-year-old female who presents to the emergency department today with a chief complaint of chest pain that she states is localized around where her pacemaker is in the left upper chest wall. Patient states onset of pain was in the last 24 hours. She denies any history of trauma to the area. No recent fevers, chills, productive cough or other illnesses. Patient tells me that she has a history of heart disease and has this pacer defibrillator for the last several years. 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 Minor. She states she last saw him over the summertime when her defibrillator fired. Patient states she has tried [id number] pain medications at home without any relief of symptoms. Nothing is made the pain any better. The pain is constant. All other review of systems reviewed and negative except as stated above. Timing/Duration: 4-6 hours Severity/Quality: moderate Location: other Radiation: no radiation Activities at Onset: none Prior CP/Workup: cardiac cath Modifying Factors: improves with breathing, improves with movement ASA po ENGLISH PROFESSOR: No NTG SL ENGLISH PROFESSOR: No Associated Symptoms: denies symptoms Allergies and Home Medications Allergies Coded Allergies: JIA Inhibitors (Verified Allergy, Severe, 05/22/19) ARB-Angiotensin Receptor Antagonist (Verified Allergy, Severe, 05/22/19) baclofen (Unverified Allergy, Unknown, 05/22/19) ON H&P phenazopyridine (Unverified Allergy, Unknown, 05/22/19) ON H&P Home Medications Albuterol Sulfate 8 Gm Hfa.aer.ad, 2 PUFF INH Q6H PRN for SHORTNESS OF BREATH, (Reported) Amlodipine Besylate 10 Mg Tablet, 10 MG PO DAILY, (Reported) Amoxicillin 500 Mg Capsule, 500 MG PO TID Prescribed by: MOIZ MARLEY on 06/13/20 0017 Apixaban 5 Mg Tablet, 5 MG PO BID Prescribed by: RALPH DELCID on 11/01/18 5088 Cyclobenzaprine HCl 10 Mg Tablet, 10 MG PO Q8H PRN for SPASMS Prescribed by: ALPESH BARBOZA on 06/17/201922 Dicyclomine HCl 10 Mg Capsule, 10 MG PO QID PRN for abdominal pain/nausea Prescribed by: EDISON CHAMBERLAIN on 12/27/191935 Dicyclomine HCl 20 Mg Tablet, 20 MG PO TID Prescribed by: NAHOMY BAGLEY on 09/22/201911 Diphenhydramine HCl 25 Mg Capsule, 25 MG PO Q4H PRN for throat irritation Prescribed by: EDISON CHAMBERLAIN on 05/11/20 1239 Diphenoxylate HCl/Atropine 1 Each Tablet, 1 EACH PO BID PRN for DIARRHEA Prescribed by: ORESTES VELASCO on 11/29/192308 Doxycycline Hyclate 100 Mg Tablet, 100 MG PO BID Prescribed by: MOIZ MARLEY on 08/28/191745 Famotidine 40 Mg Tablet, 40 MG PO DAILY Prescribed by: EDISON CHAMBERLAIN on 05/11/20 1239 Fluconazole 100 Mg Tablet, 100 MG PO Q48H Prescribed by: MOIZ MARLEY on 08/28/191745 Fluconazole 100 Mg Tablet, 100 MG PO DAILY PRN Prescribed by: MOIZ MARLEY on 06/13/20 001 Hydrocodone/Acetaminophen 1 Each Tablet, 1 EACH PO Q6H Prescribed by: MOIZ MARLEY on 06/13/20 001 Hydrocodone/Acetaminophen 1 Each Tablet, 1 EACH PO Q6H PRN for PAIN-BREAKTHROUGH Prescribed by: ANTONIO CALLEJAS on 06/23/20 1010 Hydroxyzine Pamoate 50 Mg Capsule, 50 MG PO Q6H PRN for ANXIETY Prescribed by: RODRIGO HILL on 08/03/20 0145 Ibuprofen 800 Mg Tablet, 800 MG PO Q8H PRN for PAIN Prescribed by: ALPESH BARBOZA on 06/17/201922 Meloxicam 15 Mg Tablet, 15 MG PO DAILY Prescribed by: RODRIGO HILL on 08/03/20 0145 Methylprednisolone 4 Mg Tab, 4 MG PO UD as directed per dose pack Prescribed by: ANTONIO CALLEJAS on 08/15/19 184 Metoprolol Tartrate 50 Mg Tablet, 50 MG PO BID Prescribed by: FELECIA PATTERSON on 07/24/15 0841 Metronidazole 500 Mg Tablet, 500 MG PO TID Prescribed by: NAHOMY BAGLEY on 09/22/201911 Orphenadrine Citrate 100 Mg Tablet.er, 100 MG PO BID Prescribed by: RODRIGO HILL on 08/03/20 0145 Oxycodone HCl/Acetaminophen 1 Each Tablet, 1 TAB PO Q6H Prescribed by: MOUNIKA GARCIA on 07/23/20 0623 Prednisone 20 Mg Tab, 40 MG PO DAILY Prescribed by: ANTONIO CALLEJAS on 11/04/19 175 Patient Home Medication List Home Medication List Reviewed: Yes Review of Systems Review of Systems Constitutional: no symptoms reported EENTM: No Symptoms Reported Respiratory: No Symptoms Reported Cardiovascular: Chest Pain Gastrointestinal: No Symptoms Reported Genitourinary: No Symptoms Reported Musculoskeletal: no symptoms reported Skin: no symptoms reported All Other Systems Reviewed Negative Unless Noted: Yes Past Mctfeum-Buqttz-Ypvggx Hx Patient Social History Alcohol Use: Denies Use Recreational Drug Use: No Drug of Choice: denies Smoking Status: Current Someday Smoker Type Used: Cigarettes 2nd Hand Smoke Exposure: No Recent Foreign Travel: No Contact w/Someone Who Travel: No Recent Infectious Disease Expo: No Recent Hopitalizations: No Immunizations Up To Date Tetanus Booster (TDap): Unknown PED Vaccines UTD: Yes Date of Pneumonia Vaccine: Sep 09, 2018 Date of Influenza Vaccine: Aug 19, 2015 Seasonal Allergies Seasonal Allergies: No Past Medical History Surgeries: Yes (PACER/DEFIB 2014; DEFIB PLACED 05/10/19. 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 No Pertinent Family Hx SOCIAL HISTORY: -OCCASIONAL ETOH -HX OF IV METH USE, CLAIMS NO USE SINCE 2015 -QUIT SMOKING SEVERAL YEARS AGO Physical Exam Vital Signs Vital Signs - First Documented 11/08/20 23:00 Temp 36.5 Pulse 62 Resp 16 B/P (MAP) 149/104 (119) Pulse Ox 97 O2 Delivery Room Air Capillary Refill : Less Than 3 Seconds Height, Weight, BMI Height: 5'3.00" Weight: 234lbs. 0oz. 106.747295yx; 43.00 BMI Method:Stated General Appearance: No Apparent Distress, WD/WN Neck: Normal Inspection Respiratory: Normal Breath Sounds, No Accessory Muscle Use, Other (Tenderness to pacemaker site in the left upper chest wall no surrounding erythema, no swelling, no crepitance) Cardiovascular: Regular Rate, Rhythm Gastrointestinal: Normal Bowel Sounds, Non Tender, Soft Skin: Normal Color, Warm/Dry Progress/Results/Core Measures Results/Orders Lab Results Laboratory Tests Test 11/08/20 23:10 Range/Units White Blood Count 7.2 4.3-11.0 10^3/uL Red Blood Count 4.74 3.80-5.11 10^6/uL Hemoglobin 13.4 11.5-16.0 g/dL Hematocrit 42 35-52 % Mean Corpuscular Volume 89 80-99 fL Mean Corpuscular Hemoglobin 28 25-34 pg Mean Corpuscular Hemoglobin Concent 32 32-36 g/dL Red Cell Distribution Width 14.7 H 10.0-14.5 % Platelet Count 330 130-400 10^3/uL Mean Platelet Volume 9.2 9.0-12.2 fL Immature Granulocyte % (Auto) 0 % Neutrophils (%) (Auto) 34 L 42-75 % Lymphocytes (%) (Auto) 56 H 12-44 % Monocytes (%) (Auto) 7 0-12 % Eosinophils (%) (Auto) 2 0-10 % Basophils (%) (Auto) 1 0-10 % Neutrophils # (Auto) 2.5 1.8-7.8 10^3/uL Lymphocytes # (Auto) 4.0 1.0-4.0 10^3/uL Monocytes # (Auto) 0.5 0.0-1.0 10^3/uL Eosinophils # (Auto) 0.2 0.0-0.3 10^3/uL Basophils # (Auto) 0.0 0.0-0.1 10^3/uL Immature Granulocyte # (Auto) 0.0 0.0-0.1 10^3/uL Sodium Level 137 135-145 MMOL/L Potassium Level 3.7 3.6-5.0 MMOL/L Chloride Level 104 98-107 MMOL/L Carbon Dioxide Level 22 21-32 MMOL/L Anion Gap 11 5-14 MMOL/L Blood Urea Nitrogen 19 H 7-18 MG/DL Creatinine 2.06 H 0.60-1.30 MG/DL Estimat Glomerular Filtration Rate 34 BUN/Creatinine Ratio 9 Glucose Level 89 70-105 MG/DL Calcium Level 8.9 8.5-10.1 MG/DL Corrected Calcium 9.1 8.5-10.1 MG/DL Total Bilirubin 0.1 0.1-1.0 MG/DL Aspartate Amino Transf (AST/SGOT) 22 5-34 U/L Alanine Aminotransferase (ALT/SGPT) 20 0-55 U/L Alkaline Phosphatase 59 40-136 U/L Myoglobin 215.7 H 10.0-92.0 NG/ML Troponin I < 0.028 <0.028 NG/ML Total Protein 6.4 6.4-8.2 GM/DL Albumin 3.7 3.2-4.5 GM/DL My Orders Orders - RICH CRUZ MD Continuous Ekg Monitoring (11/08/20 23:05) Ekg Tracing (11/08/20 23:05) Chest 1 View, Ap/Pa Only (11/08/20 23:05) Troponin I (11/08/20 23:05) Comprehensive Metabolic Panel (11/08/20 23:05) Cbc With Automated Diff (11/08/20 23:05) Myoglobin Serum (11/08/20 23:05) Ed Iv/Invasive Line Start (11/08/20 23:05) Fentanyl Injection (Sublimaze Injection (11/09/20 00:15) Medications Given in ED Current Medications Medications Dose Ordered Sig/Mikal Route Start Time Stop Time Status Last Admin Dose Admin Fentanyl Citrate 50 mcg ONCE ONCE IVP 11/09/20 00:15 11/09/20 00:16 DC 11/09/20 00:14 50 MCG Vital Signs/I&O 11/08/20 23:00 Temp 36.5 Pulse 62 Resp 16 B/P (MAP) 149/104 (119) Pulse Ox 97 O2 Delivery Room Air Blood Pressure Mean: 119 Progress Progress Note : Time: 01:04 Progress Note Patient feels better after pain medications. Labs have been reviewed and are all at the patient's normal baseline. Chest x-ray is reviewed her pacemaker is in place wires appear to be in place. Patient has no effusions no infiltrates. She has cardiomegaly on chest x-ray which is also her baseline. Patient is comfortable with going home. I recommended Tylenol she is agreeable. I suspect that the patient's "chest pain" is all musculoskeletal in nature. It is reproducible with palpation as well as deep breath. No clinical or objective findings to warrant further investigation of the patient's chest pain as a cardiac etiology is necessary. All questions have been sought and answered and she is stable for discharge. Departure Impression Primary Impression: Chest wall pain Disposition: HOME, SELF-CARE Condition: Stable Departure-Patient Inst. Decision time for Depature: 01:05 Referrals: MOUNIKA RIGGS MD (PCP/Family) Primary Care Physician Patient Instructions: Chest Pain That Is Not Caused by the Heart (DC) Add. Discharge Instructions: Drink plenty of fluids to stay well-hydrated. Take Tylenol, 2 extra strength tablets, every 4-6 hours as needed for pain. Please call Dr. Patterson's office for a follow-up appointment next week. Return to the emergency room if you have any worsening chest pain especially pain that is associated with nausea, shortness of breath, sweating or any other emergent concerning symptoms. All discharge instructions reviewed with patient and/or family. Voiced understanding. RICH CRUZ MD Nov 08, 2020 23:42
[2020-11-08 23:58] LABS: CALCIUM 8.9 MG/DL (8.5-10.1)
[2020-11-09] MEDS ORDERED: fentaNYL INJECTION 100 MCG/2 ML AMP IVP ONE (00:15)
[2020-11-09 01:10] VITALS: BP 127/73
--- NOTE | 2020-11-09 07:29 | Diagnostic Imaging Report ---
INDICATION: Chest pain COMPARISON STUDY: Chest from August 02. FINDINGS: Frontal view of the chest demonstrates stable cardiomegaly and a cardiac defibrillator. The lungs are clear. The vascularity is normal. IMPRESSION: There is stable cardiomegaly. Dictated by: Dictated on workstation # [id number]
== END 2020-11-09 01:13 | disposition home or self-care (01) ==
LOC: EDUNIT# 22:50 → ER 22:54
DX: R07.89 Other chest pain (principal); E66.9 Obesity, unspecified; F41.9 Anxiety disorder, unspecified; I10 Essential (primary) hypertension; K21.9 Gastro-esophageal reflux disease without esophagitis; F17.210 Nicotine dependence, cigarettes, uncomplicated; Z88.8 Allergy status to other drugs, medicaments and biological substances; Z95.810 Presence of automatic (implantable) cardiac defibrillator; Z68.41 Body mass index [BMI] 40.0-44.9, adult; Z87.820 Personal history of traumatic brain injury; Z79.52 Long term (current) use of systemic steroids; Z79.01 Long term (current) use of anticoagulants
CPT/HCPCS: 36415; 71045; 80053; 83874; 84484; 85025; 93005

== ENCOUNTER 2020-11-17 16:21 | Emergency (ER) | payer MEDICARE, MEDICAID ==
[~2020-11-17] VITALS: Ht 165 cm; Wt 111.0 kg
[2020-11-17] MEDS ORDERED: morphine INJ 10 MG/ML 1ML (SYR OR VIAL) IVP STA (16:36)
[2020-11-17 16:41] LABS: BACTERIA,URINE MODERATE /HPF; BILIRUBIN,URINE NEGATIVE (NEGATIVE); CLARITY,URINE CLOUDY; COLOR,URINE YELLOW; GLUCOSE, URINE (UA) NEGATIVE (NEGATIVE); KETONES,URINE NEGATIVE (NEGATIVE); LEUKOCYTE ESTERASE ,URINE NEGATIVE (NEGATIVE); NITRITE,URINE NEGATIVE (NEGATIVE); PH,URINE 5.5 (5-9); PROTEIN,URINE 2+ (NEGATIVE)
[2020-11-17 16:42] LABS: SQUAMOUS EPITHELIAL CELL,UR >50 /HPF
[2020-11-17] MEDS ORDERED: ONDANSETRON 4 MG/2 ML (SDV) Z0FRAN IVP ONE (16:45)
[2020-11-17] MEDS ORDERED: KETOROLAC 30 MG/ML VIAL IVP ONE (16:45)
[2020-11-17] MEDS ORDERED: NS IV 1000 ML 1,000 ML IV SCH (16:45)
--- NOTE | 2020-11-17 16:50 | ED General ---
General Chief Complaint: - Urinary Stated Complaint: ABD PAIN,BLOOD IN URINE Nursing Triage Note: [facility] SENT HER HERE FOR BLOOD IN HER URINE. SHE HAS LOW PELVIC PAIN AND HURTS TO URINATE. Nursing Sepsis Screen: No Definite Risk History of Present Illness Date Seen by Provider: Nov 17, 2020 Time Seen by Provider: 16:47 Initial Comments Patient presents emergency department for evaluation of abdominal pain that has been going on since last night she says it started gradually and has increased in intensity since last night. She describes it as a sharp shooting pain that does not radiate towards the back but does radiate towards the right lower quadrant from her suprapubic region. She denies any other symptoms that the pain including no dysuria hematuria fevers chills nausea vomiting diarrhea constipation or vaginal bleeding or vaginal discharge and she denies any prior abdominal surgeries. Reportedly she was seen at the urgent care and she had a large amount of blood in her urine and was sent here for concerns of a kidney stone. She appears uncomfortable but is nontoxic with normal vital signs. Allergies and Home Medications Allergies Coded Allergies: JIA Inhibitors (Verified Allergy, Severe, 05/22/19) ARB-Angiotensin Receptor Antagonist (Verified Allergy, Severe, 05/22/19) baclofen (Unverified Allergy, Unknown, 05/22/19) ON H&P phenazopyridine (Unverified Allergy, Unknown, 05/22/19) ON H&P Home Medications Albuterol Sulfate 8 Gm Hfa.aer.ad, 2 PUFF INH Q6H PRN for SHORTNESS OF BREATH, (Reported) Amlodipine Besylate 10 Mg Tablet, 10 MG PO DAILY, (Reported) Amoxicillin 500 Mg Capsule, 500 MG PO TID Prescribed by: MOIZ MARLEY on 06/13/207 Apixaban 5 Mg Tablet, 5 MG PO BID Prescribed by: RALPH DELCID on 11/01/181855 Cyclobenzaprine HCl 10 Mg Tablet, 10 MG PO Q8H PRN for SPASMS Prescribed by: ALPESH BARBOZA on 06/17/201922 Dicyclomine HCl 10 Mg Capsule, 10 MG PO QID PRN for abdominal pain/nausea Prescribed by: EDISON CHAMBERLAIN on 12/27/191935 Dicyclomine HCl 20 Mg Tablet, 20 MG PO TID Prescribed by: NAHOMY BAGLEY on 09/22/201911 Diphenhydramine HCl 25 Mg Capsule, 25 MG PO Q4H PRN for throat irritation Prescribed by: EDISON CHAMBERLAIN on 05/11/20 123 Diphenoxylate HCl/Atropine 1 Each Tablet, 1 EACH PO BID PRN for DIARRHEA Prescribed by: ORESTES VELASCO on 11/29/192308 Doxycycline Hyclate 100 Mg Tablet, 100 MG PO BID Prescribed by: MOIZ MARLEY on 08/28/191745 Famotidine 40 Mg Tablet, 40 MG PO DAILY Prescribed by: EDISON CHAMBERLAIN on 05/11/20 123 Fluconazole 100 Mg Tablet, 100 MG PO Q48H Prescribed by: MOIZ MARLEY on 08/28/191745 Fluconazole 100 Mg Tablet, 100 MG PO DAILY PRN Prescribed by: MOIZ MARLEY on 06/13/20 001 Hydrocodone/Acetaminophen 1 Each Tablet, 1 EACH PO Q6H Prescribed by: MOIZ MARLEY on 06/13/20 001 Hydrocodone/Acetaminophen 1 Each Tablet, 1 EACH PO Q6H PRN for PAIN-BREAKTHROUGH Prescribed by: ANTONIO CALLEJAS on 06/23/20 1010 Hydroxyzine Pamoate 50 Mg Capsule, 50 MG PO Q6H PRN for ANXIETY Prescribed by: RODRIGO HILL on 08/03/20144 Ibuprofen 800 Mg Tablet, 800 MG PO Q8H PRN for PAIN Prescribed by: ALPESH BARBOZA on 06/17/201922 Meloxicam 15 Mg Tablet, 15 MG PO DAILY Prescribed by: RODRIGO HILL on 08/03/20 014 Methylprednisolone 4 Mg Tab, 4 MG PO UD as directed per dose pack Prescribed by: ANTONIO CALLEJAS on 08/15/19 184 Metoprolol Tartrate 50 Mg Tablet, 50 MG PO BID Prescribed by: FLEECIA FORTUNE on 07/24/15 0841 Metronidazole 500 Mg Tablet, 500 MG PO TID Prescribed by: NAHOMY BAGLEY on 09/22/201911 Orphenadrine Citrate 100 Mg Tablet.er, 100 MG PO BID Prescribed by: RODRIGO HILL on 08/03/20 014 Oxycodone HCl/Acetaminophen 1 Each Tablet, 1 TAB PO Q6H Prescribed by: MOUNIKA GARCIA on 07/23/20 06 Prednisone 20 Mg Tab, 40 MG PO DAILY Prescribed by: ANTONIO CALLEJAS on 11/04/19 1759 Patient Home Medication List Home Medication List Reviewed: Yes Review of Systems Review of Systems Constitutional: no symptoms reported EENTM: no symptoms reported Respiratory: no symptoms reported Cardiovascular: no symptoms reported Gastrointestinal: abdominal pain Genitourinary: no symptoms reported Musculoskeletal: no symptoms reported Skin: no symptoms reported Psychiatric/Neurological: No Symptoms Reported All Other Systems Reviewed Negative Unless Noted: Yes Past Elefurn-Hreven-Otkpvw Hx Patient Social History Alcohol Use: Denies Use Recreational Drug Use: No Drug of Choice: denies Type Used: Cigarettes 2nd Hand Smoke Exposure: No Recent Foreign Travel: No Contact w/Someone Who Travel: No Recent Infectious Disease Expo: No Recent Hopitalizations: No Physical Abuse: No Sexual Abuse: No Mistreated: No Fear: No Immunizations Up To Date Tetanus Booster (TDap): Unknown PED Vaccines UTD: Yes Date of Pneumonia Vaccine: Sep 09, 2018 Date of Influenza Vaccine: Aug 19, 2015 Seasonal Allergies Seasonal Allergies: No Past Medical History Surgeries: Yes (PACER/DEFIB 2014; DEFIB PLACED 05/10/19. 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 No Pertinent Family Hx SOCIAL HISTORY: -OCCASIONAL ETOH -HX OF IV METH USE, CLAIMS NO USE SINCE 2015 -QUIT SMOKING SEVERAL YEARS AGO Physical Exam Vital Signs Vital Signs - First Documented 11/17/20 16:31 Temp 37.1 Pulse 68 Resp 16 B/P (MAP) 150/103 (119) Pulse Ox 100 O2 Delivery Room Air Capillary Refill : Less Than 3 Seconds Height, Weight, BMI Height: 5'3.00" Weight: 234lbs. 0oz. 106.359053ce; 40.00 BMI Method:Stated General Appearance: No Apparent Distress, WD/WN Respiratory: Lungs Clear, No Respiratory Distress Cardiovascular: Regular Rate, Rhythm Gastrointestinal: Soft, Tenderness (suprapubic and RLQ ttp. No rebound or guarding.) Extremity: Normal Capillary Refill Neurologic/Psychiatric: Alert, Oriented x3 Skin: Warm/Dry Progress/Results/Core Measures Suspected Sepsis Recent Fever Within 48 Hours: No Infection Criteria Present: None New/Unexplained Altered Menta: No Sepsis Screen: No Definite Risk SIRS Temperature: Pulse: 68 Respiratory Rate: 16 Laboratory Tests 11/17/20 16:55: White Blood Count 8.3 Blood Pressure 150 /103 Mean: 119 Laboratory Tests 11/17/20 16:55: Creatinine 1.90H, Platelet Count 371, Total Bilirubin 0.2 Results/Orders Lab Results Laboratory Tests Test 11/17/20 16:25 11/17/20 16:55 Range/Units Urine Color YELLOW Urine Clarity CLOUDY Urine pH 5.5 5-9 Urine Specific [place] >1.030 1.016-1.022 Urine Protein 2+ H NEGATIVE Urine Glucose (UA) NEGATIVE NEGATIVE Urine Ketones NEGATIVE NEGATIVE Urine Nitrite NEGATIVE NEGATIVE Urine Bilirubin NEGATIVE NEGATIVE Urine Urobilinogen 0.2 < = 1.0 MG/DL Urine Leukocyte Esterase NEGATIVE NEGATIVE Urine RBC (Auto) TRACE H NEGATIVE Urine RBC NONE /HPF Urine WBC NONE /HPF Urine Squamous Epithelial Cells >50 H /HPF Urine Crystals NONE /LPF Urine Bacteria MODERATE H /HPF Urine Casts NONE /LPF Urine Mucus NEGATIVE /LPF Urine Culture Indicated NO Urine Test NEGATIVE NEGATIVE White Blood Count 8.3 4.3-11.0 10^3/uL Red Blood Count 5.17 4.35-5.85 10^6/uL Hemoglobin 14.6 11.5-16.0 G/DL Hematocrit 45 35-52 % Mean Corpuscular Volume 87 80-99 FL Mean Corpuscular Hemoglobin 28 25-34 PG Mean Corpuscular Hemoglobin Concent 32 32-36 G/DL Red Cell Distribution Width 14.7 H 10.0-14.5 % Platelet Count 371 130-400 10^3/uL Mean Platelet Volume 9.1 7.4-10.4 FL Immature Granulocyte % (Auto) 0 % Neutrophils (%) (Auto) 41 L 42-75 % Lymphocytes (%) (Auto) 51 H 12-44 % Monocytes (%) (Auto) 7 0-12 % Eosinophils (%) (Auto) 1 0-10 % Basophils (%) (Auto) 1 0-10 % Neutrophils # (Auto) 3.4 1.8-7.8 X 10^3 Lymphocytes # (Auto) 4.2 H 1.0-4.0 X 10^3 Monocytes # (Auto) 0.6 0.0-1.0 X 10^3 Eosinophils # (Auto) 0.1 0.0-0.3 10^3/uL Basophils # (Auto) 0.1 0.0-0.1 10^3/uL Immature Granulocyte # (Auto) 0.0 0.0-0.1 10^3/uL Sodium Level 138 135-145 MMOL/L Potassium Level 3.9 3.6-5.0 MMOL/L Chloride Level 102 98-107 MMOL/L Carbon Dioxide Level 26 21-32 MMOL/L Anion Gap 10 5-14 MMOL/L Blood Urea Nitrogen 15 7-18 MG/DL Creatinine 1.90 H 0.60-1.30 MG/DL Estimat Glomerular Filtration Rate 37 BUN/Creatinine Ratio 8 Glucose Level 85 70-105 MG/DL Calcium Level 9.4 8.5-10.1 MG/DL Corrected Calcium 9.1 8.5-10.1 MG/DL Total Bilirubin 0.2 0.1-1.0 MG/DL Aspartate Amino Transf (AST/SGOT) 16 5-34 U/L Alanine Aminotransferase (ALT/SGPT) 16 0-55 U/L Alkaline Phosphatase 72 40-136 U/L Total Protein 7.2 6.4-8.2 GM/DL Albumin 4.4 3.2-4.5 GM/DL Lipase 33 8-78 U/L My Orders Orders - MOUNIKA GARCIA DO Hcg,Qualitative Urine (11/17/20 16:24) Ua Culture If Indicated (11/17/20 16:24) Cbc With Automated Diff (11/17/20 16:36) Comprehensive Metabolic Panel (11/17/20 16:36) Lipase (11/17/20 16:36) Iv/Invasive Line Insertion .IV start (11/17/20 16:36) Ns Iv 1000 Ml (Sodium Chloride 0.9%) (11/17/20 16:45) Ondansetron Injection (Zofran Injectio (11/17/20 16:45) Ketorolac Injection (Toradol Injection) (11/17/20 16:45) Morphine Injection (Morphine Injection (11/17/20 16:36) Ct Abdomen/Pelvis Wo (11/17/20 16:45) Medications Given in ED Current Medications Medications Dose Ordered Sig/Mikal Route Start Time Stop Time Status Last Admin Dose Admin Ketorolac Tromethamine 15 mg ONCE ONCE IVP 11/17/20 16:45 11/17/20 16:46 DC 11/17/20 17:00 15 MG Ondansetron HCl 4 mg ONCE ONCE IVP 11/17/20 16:45 11/17/20 16:46 DC 11/17/20 16:59 4 MG Vital Signs/I&O 11/17/20 16:31 Temp 37.1 Pulse 68 Resp 16 B/P (MAP) 150/103 (119) Pulse Ox 100 O2 Delivery Room Air Capillary Refill : Less Than 3 Seconds Blood Pressure Mean: 119 Progress Note : Progress Note There was no to minimal blood in her current here so kidney stone is less likely however not completely excluded but given the location and description of her pain I need to rule out appendicitis. Will get labs imaging treat symptoms and reassess. Patient could not get a CT with contrast due to her chronic renal insufficiency. Her workup came back normal and she had normal CBC and CMP other than the renal insufficiency and her urinalysis was unremarkable and her CT did not show any acute surgical pathology either. Her pain improved significantly emergency room and her repeat abdominal exam is benign and she was able to drink fluids without any difficulty. Patient feels better and is requesting to go home so I will discharge her in stable condition with a diagnosis of abdominal pain and told I do not have a definitive diagnosis at this time so it is important that she follows with a primary care provider within the next 2-3 days for recheck and come back to the ED sooner with worsening pain fevers vomiting or other general concerns. Patient aware and agreeable with plan for discharge and verbalized understanding of the above instructions. Departure Impression Primary Impression: Abdominal pain Qualified Codes: R10.30 - Lower abdominal pain, unspecified Disposition: 01 HOME, SELF-CARE Condition: Stable Departure-Patient Inst. Referrals: MOUNIKA RIGGS MD (PCP/Family) Primary Care Physician Patient Instructions: Abdominal Pain, Adult ED Scripts Hydrocodone/Acetaminophen (Hydrocodone-Acetamin 5-325 mg) 1 Each Tablet 1 EACH PO Q6H PRN for PAIN-SEVERE (8-10), #8 TAB Prov: MOUNIKA GARCIA DO 11/17/20 MOUNIKA GARCIA DO Nov 17, 2020 16:50
[2020-11-17 17:13] LABS: HEMATOCRIT 45 % (35-52); HEMOGLOBIN 14.6 G/DL (11.5-16.0); LYMPHOCYTES % (AUTO) 51 % (12-44); MEAN CORPUSCULAR HEMOGLOBIN 28 PG (25-34); MEAN CORPUSCULAR HGB CONC 32 G/DL (32-36); MEAN CORPUSCULAR VOLUME 87 FL (80-99); MEAN PLATELET VOLUME 9.1 FL (7.4-10.4); NEUTROPHILS % (AUTO) 41 % (42-75); PLATELET COUNT 371 10^3/uL (130-400); WHITE BLOOD COUNT 8.3 10^3/uL (4.3-11.0)
[2020-11-17 17:14] LABS: BASOPHILS # (AUTO) 0.1 10^3/uL (0.0-0.1); BASOPHILS % (AUTO) 1 % (0-10); EOSINOPHILS # (AUTO) 0.1 10^3/uL (0.0-0.3); EOSINOPHILS % (AUTO) 1 % (0-10); LYMPHOCYTES # (AUTO) 4.2 X 10^3 (1.0-4.0); MONOCYTES # (AUTO) 0.6 X 10^3 (0.0-1.0); MONOCYTES % (AUTO) 7 % (0-12); NEUTROPHILS # (AUTO) 3.4 X 10^3 (1.8-7.8)
[2020-11-17 17:26] LABS: ALBUMIN 4.4 GM/DL (3.2-4.5); BILIRUBIN,TOTAL 0.2 MG/DL (0.1-1.0); CALCIUM 9.4 MG/DL (8.5-10.1); CREATININE SERUM 1.9 MG/DL (0.60-1.30); POTASSIUM 3.9 MMOL/L (3.6-5.0); TOTAL PROTEIN 7.2 GM/DL (6.4-8.2)
--- NOTE | 2020-11-17 18:09 | Diagnostic Imaging Report ---
PROCEDURE: CT abdomen and pelvis without contrast. TECHNIQUE: Multiple contiguous axial images were obtained through the abdomen and pelvis without the use of intravenous contrast. Auto Exposure Controls were utilized during the CT exam to meet ALARA standards for radiation dose reduction. INDICATION: Abdominal pain. Comparison is made with prior examination from 09/22/2020. FINDINGS: The heart size is normal. The lung bases are clear. The liver is normal in size without focal lesions. Gallbladder surgically absent. There is no biliary duct dilatation. The spleen is normal. Pancreas and adrenal glands are unremarkable. Kidneys are normal in appearance. Bladder is normal. Bowel gas pattern is nonspecific. The appendix is normal. There is no free air. There is no ascites. There are no focal inflammatory changes. Uterus is normal. There is no pelvic mass or adenopathy. The osseous structures are unremarkable. IMPRESSION: No acute abnormality in the abdomen or pelvis Dictated by: Dictated on workstation # [id number]
[2020-11-17] MEDS ORDERED: ACHD5005 PO (18:27)
[2020-11-17 18:34] VITALS: BP 136/72
== END 2020-11-17 18:36 | disposition home or self-care (01) ==
LOC: EDUNIT# 16:21 → ER FS 16:22
DX: R10.31 Right lower quadrant pain (principal); E66.9 Obesity, unspecified; K21.9 Gastro-esophageal reflux disease without esophagitis; I10 Essential (primary) hypertension; F41.9 Anxiety disorder, unspecified; Z68.41 Body mass index [BMI] 40.0-44.9, adult; Z95.810 Presence of automatic (implantable) cardiac defibrillator; Z87.820 Personal history of traumatic brain injury; Z88.8 Allergy status to other drugs, medicaments and biological substances; Z79.52 Long term (current) use of systemic steroids; Z79.01 Long term (current) use of anticoagulants
CPT/HCPCS: 36415; 74176; 80053; 81000; 83690; 84703; 85025

== ENCOUNTER 2020-12-15 04:19 | Emergency (ER) | payer MEDICARE, MEDICAID ==
--- NOTE | 2020-12-15 04:49 | ED Abdominal Pain ---
General Chief Complaint: Abdominal/GI Problems Stated Complaint: ABDOMINAL PAIN Nursing Triage Note: Pt complaining of RLQ pain for over a week Sepsis Screen: No Definite Risk History of Present Illness Date Seen by Provider: Dec 15, 2020 Time Seen by Provider: 04:35 Initial Comments This overweight 30 y/o female nonsmoker presents with right mid abdominal pain off and on for "months" and not improving w/ Rx she got from Dr Barney (she is unsure of name). Pain is currently rated 5/10 and is NOT her worst ever. She denies fever, chills, N/V/D, vaginal bleeding/discharge, (prior endometrial ablation after A3), urinary urgency or hematuria or flank pain. She had a cholecystectomy but still has appendix. Pain is always in same place and w/o radiation and it has no reported relationship to food, activity/rest, or position. She does not work and was up all night in pain. She is on chronic oral anticoagulation for "a clot in my heart" and has a pacemaker and hx of prior cardiac arrest. She denies drug use but RN states she is known to have previously done drugs (possibly related to her cardiac event). Timing/Duration: Changing Over Time, Intermittent, Other (several months) Severity/Quality: Aching Location: Other (right para-umbilical) Activities at Onset: None Modifying Factors: Worsens With Defecating, Worsens With Eating, Worsens With Movement, Worsens With Urinating; Improves With Other (denies dyspareunia) Associated Symptoms: No Back Pain, No Chest Pain, No Diaphoresis, No Fever/Chills, No Nausea/Vomiting, No Shortness of Air Allergies and Home Medications Allergies Coded Allergies: JIA Inhibitors (Verified Allergy, Severe, 05/22/19) ARB-Angiotensin Receptor Antagonist (Verified Allergy, Severe, 05/22/19) baclofen (Unverified Allergy, Unknown, 05/22/19) ON H&P phenazopyridine (Unverified Allergy, Unknown, 05/22/19) ON H&P Home Medications Albuterol Sulfate 8 Gm Hfa.aer.ad, 2 PUFF INH Q6H PRN for SHORTNESS OF BREATH, (Reported) Amlodipine Besylate 10 Mg Tablet, 10 MG PO DAILY, (Reported) Apixaban 5 Mg Tablet, 5 MG PO BID Prescribed by: RALPH DELCID on 11/01/18 1856 Cyclobenzaprine HCl 10 Mg Tablet, 10 MG PO Q8H PRN for SPASMS Prescribed by: ALPESH BARBOZA on 06/17/20 192 Diphenhydramine HCl 25 Mg Capsule, 25 MG PO Q4H PRN for throat irritation Prescribed by: EDISON CHAMBERLAIN on 05/11/20 1239 Diphenoxylate HCl/Atropine 1 Each Tablet, 1 EACH PO BID PRN for DIARRHEA Prescribed by: ORESTES VELASCO on 11/29/19 2309 Famotidine 40 Mg Tablet, 40 MG PO DAILY Prescribed by: DEISON CHAMBERLAIN on 05/11/20 1239 Fluconazole 100 Mg Tablet, 100 MG PO Q48H Prescribed by: MOIZ MARLEY on 08/28/19 1746 Fluconazole 100 Mg Tablet, 100 MG PO DAILY PRN Prescribed by: MOIZ MARLEY on 06/13/20 0017 Hydroxyzine Pamoate 50 Mg Capsule, 50 MG PO Q6H PRN for ANXIETY Prescribed by: RODRIGO HILL on 08/03/20 014 Ibuprofen 800 Mg Tablet, 800 MG PO Q8H PRN for PAIN Prescribed by: ALPESH BARBOZA on 06/17/201922 Metoprolol Tartrate 50 Mg Tablet, 50 MG PO BID Prescribed by: FELECIA FORTUNE on 07/24/15 0841 Orphenadrine Citrate 100 Mg Tablet.er, 100 MG PO BID Prescribed by: RODRIGO HILL on 08/03/20 014 Patient Home Medication List Home Medication List Reviewed: Yes Review of Systems Review of Systems Constitutional: no symptoms reported EENTM: No Symptoms Reported Respiratory: No Symptoms Reported Cardiovascular: No Symptoms Reported Gastrointestinal: See HPI, Abdominal Pain Genitourinary: No Symptoms Reported Musculoskeletal: no symptoms reported Skin: no symptoms reported Hematologic/Lymphatic: No Symptoms Reported, Anemia (had transfusion after related bleeding once; denies sickle cell or chronic anemia), Blood Clots, Easy Bleeding, Easy Bruising (chronic Eliquis) Past Eygscmc-Abybfp-Djvthu Hx Patient Social History Alcohol Use: Denies Use Drug of Choice: denies Smoking Status: Unknown if Ever Smoked Type Used: Cigarettes 2nd Hand Smoke Exposure: No Recent Infectious Disease Expo: No Recent Hopitalizations: No Have you traveled recently?: No Alcohol Use?: No Immunizations Up To Date Tetanus Booster (TDap): Unknown PED Vaccines UTD: Yes Date of Pneumonia Vaccine: Sep 09, 2018 Date of Influenza Vaccine: Aug 19, 2015 Seasonal Allergies Seasonal Allergies: No Past Medical History Surgeries: Yes (PACER/DEFIB 2014; DEFIB PLACED 05/10/19. 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 0oz. 106.747029sz; 40.00 BMI Method:Stated General Appearance: no apparent distress HEENT: normal ENT inspection Neck: supple Respiratory: lungs clear, normal breath sounds Cardiovascular: normal peripheral pulses Gastrointestinal: normal bowel sounds, non tender, soft Back: no CVA tenderness Neurologic/Psychiatric: alert, normal mood/affect, oriented x 3 Skin: normal color, warm/dry Progress/Results/Core Measures Results/Orders Lab Results Laboratory Tests Test 12/15/20 04:30 12/15/20 04:40 Range/Units Urine Color YELLOW Urine Clarity CLOUDY Urine pH 5.5 5-9 Urine Specific [place] 1.025 H 1.016-1.022 Urine Protein 2+ H NEGATIVE Urine Glucose (UA) NEGATIVE NEGATIVE Urine Ketones NEGATIVE NEGATIVE Urine Nitrite NEGATIVE NEGATIVE Urine Bilirubin NEGATIVE NEGATIVE Urine Urobilinogen 0.2 < = 1.0 MG/DL Urine Leukocyte Esterase NEGATIVE NEGATIVE Urine RBC (Auto) 1+ H NEGATIVE Urine RBC RARE /HPF Urine WBC 2-5 /HPF Urine Squamous Epithelial Cells 10-25 H /HPF Urine Crystals NONE /LPF Urine Bacteria MODERATE H /HPF Urine Casts PRESENT /LPF Urine Hyaline Casts RARE /LPF Urine Mucus SMALL H /LPF Urine Culture Indicated NO White Blood Count 9.4 4.3-11.0 10^3/uL Red Blood Count 4.78 4.35-5.85 10^6/uL Hemoglobin 13.7 11.5-16.0 G/DL Hematocrit 42 35-52 % Mean Corpuscular Volume 88 80-99 FL Mean Corpuscular Hemoglobin 29 25-34 PG Mean Corpuscular Hemoglobin Concent 33 32-36 G/DL Red Cell Distribution Width 14.5 10.0-14.5 % Platelet Count 402 H 130-400 10^3/uL Mean Platelet Volume 9.0 7.4-10.4 FL Immature Granulocyte % (Auto) 0 % Neutrophils (%) (Auto) 43 42-75 % Lymphocytes (%) (Auto) 49 H 12-44 % Monocytes (%) (Auto) 7 0-12 % Eosinophils (%) (Auto) 1 0-10 % Basophils (%) (Auto) 1 0-10 % Neutrophils # (Auto) 4.0 1.8-7.8 X 10^3 Lymphocytes # (Auto) 4.6 H 1.0-4.0 X 10^3 Monocytes # (Auto) 0.6 0.0-1.0 X 10^3 Eosinophils # (Auto) 0.1 0.0-0.3 10^3/uL Basophils # (Auto) 0.1 0.0-0.1 10^3/uL Immature Granulocyte # (Auto) 0.0 0.0-0.1 10^3/uL Sodium Level 137 135-145 MMOL/L Potassium Level 3.6 3.6-5.0 MMOL/L Chloride Level 100 98-107 MMOL/L Carbon Dioxide Level 27 21-32 MMOL/L Anion Gap 10 5-14 MMOL/L Blood Urea Nitrogen 17 7-18 MG/DL Creatinine 2.05 H 0.60-1.30 MG/DL Estimat Glomerular Filtration Rate 34 BUN/Creatinine Ratio 8 Glucose Level 89 70-105 MG/DL Calcium Level 9.5 8.5-10.1 MG/DL Corrected Calcium 9.3 8.5-10.1 MG/DL Total Bilirubin 0.2 0.1-1.0 MG/DL Aspartate Amino Transf (AST/SGOT) 15 5-34 U/L Alanine Aminotransferase (ALT/SGPT) 12 0-55 U/L Alkaline Phosphatase 79 40-136 U/L Total Protein 6.9 6.4-8.2 GM/DL Albumin 4.2 3.2-4.5 GM/DL Lipase 34 8-78 U/L My Orders Orders - GLORIA LOW MD Comprehensive Metabolic Panel (12/15/20 04:28) Lipase (12/15/20 04:28) Ua Culture If Indicated (12/15/20 04:28) Ed Iv/Invasive Line Start (12/15/20 04:28) Cbc With Automated Diff (12/15/20 04:28) Vital Signs/I&O 12/15/20 04:28 Temp 37.6 Pulse 86 Resp 16 B/P (MAP) 193/129 (150) Pulse Ox 99 O2 Delivery Room Air Blood Pressure Mean: 150 iStat Bedside Lab Testing Creatinine (Crea): 2 Progress Progress Note : Time: 05:38 Progress Note Exam and labs unremarkable except Cr of 2 and urinae that appears more contaminant than infected. Reviewed prior imaging studies and found recent CT ABD that is benign: Date of Exam:11/17/20 CT ABDOMEN/PELVIS WO PROCEDURE: CT abdomen and pelvis without contrast. TECHNIQUE: Multiple contiguous axial images were obtained through the abdomen and pelvis without the use of intravenous contrast. Auto Exposure Controls were utilized during the CT exam to meet ALARA standards for radiation dose reduction. INDICATION: Abdominal pain. Comparison is made with prior examination from 09/22/2020. FINDINGS: The heart size is normal. The lung bases are clear. The liver is normal in size without focal lesions. Gallbladder surgically absent. There is no biliary duct dilatation. The spleen is normal. Pancreas and adrenal glands are unremarkable. Kidneys are normal in appearance. Bladder is normal. Bowel gas pattern is nonspecific. The appendix is normal. There is no free air. There is no ascites. There are no focal inflammatory changes. Uterus is normal. There is no pelvic mass or adenopathy. The osseous structures are unremarkable. IMPRESSION: No acute abnormality in the abdomen or pelvis My conclusion is that this is chronic pain of undetermined etiology that does requires neither emergent imaging nor surgical consultation at this time; it is unlikely to require narcotics; the daily anticoagulant and the impaired Cr both argue against NSAIDS (although she has been on multiples). I will treat w/ levsin and refer back to PCP. Departure Impression Primary Impression: Abdominal pain Disposition: HOME, SELF-CARE Condition: Stable Departure-Patient Inst. Referrals: MOUNIKA RIGGS MD (PCP/Family) Primary Care Physician JOHN BARNEY DO Patient Instructions: Abdominal Pain, Adult ED Add. Discharge Instructions: THE CAUSE FOR YOUR PAIN IS UNDETERMINED AT THIS TIME BASED ON FINDINGS FROM EXAM AND LAB TESTS. TRY THE MEDICINE AND ARRANGE PROMPT FOLLOW UP CARE WITH YOUR DOCTOR. RETURN TO ER IF WORSE OR NEW SYMPTOMS. All discharge instructions reviewed with patient and/or family. Voiced understanding. GLORIA LOW MD Dec 15, 2020 04:48
[2020-12-15 04:59] LABS: CLARITY,URINE CLOUDY; COLOR,URINE YELLOW
[2020-12-15 05:00] LABS: BILIRUBIN,URINE NEGATIVE (NEGATIVE); GLUCOSE, URINE (UA) NEGATIVE (NEGATIVE); KETONES,URINE NEGATIVE (NEGATIVE); LEUKOCYTE ESTERASE ,URINE NEGATIVE (NEGATIVE); NITRITE,URINE NEGATIVE (NEGATIVE); PH,URINE 5.5 (5-9); PROTEIN,URINE 2+ (NEGATIVE); RBC,URINE RARE /HPF
[2020-12-15 05:01] LABS: BACTERIA,URINE MODERATE /HPF
[2020-12-15 05:02] LABS: HYALINE CASTS, URINE RARE /LPF
[2020-12-15 05:16] LABS: HEMATOCRIT 42 % (35-52); HEMOGLOBIN 13.7 G/DL (11.5-16.0); MEAN CORPUSCULAR HEMOGLOBIN 29 PG (25-34); MEAN CORPUSCULAR HGB CONC 33 G/DL (32-36); MEAN CORPUSCULAR VOLUME 88 FL (80-99); NEUTROPHILS % (AUTO) 43 % (42-75); PLATELET COUNT 402 10^3/uL (130-400); WHITE BLOOD COUNT 9.4 10^3/uL (4.3-11.0)
[2020-12-15 05:17] LABS: BASOPHILS # (AUTO) 0.1 10^3/uL (0.0-0.1); BASOPHILS % (AUTO) 1 % (0-10); EOSINOPHILS # (AUTO) 0.1 10^3/uL (0.0-0.3); EOSINOPHILS % (AUTO) 1 % (0-10); LYMPHOCYTES # (AUTO) 4.6 X 10^3 (1.0-4.0); LYMPHOCYTES % (AUTO) 49 % (12-44); MONOCYTES # (AUTO) 0.6 X 10^3 (0.0-1.0); MONOCYTES % (AUTO) 7 % (0-12)
[2020-12-15 05:28] LABS: POTASSIUM 3.6 MMOL/L (3.6-5.0)
[2020-12-15 05:29] LABS: ALBUMIN 4.2 GM/DL (3.2-4.5); BILIRUBIN,TOTAL 0.2 MG/DL (0.1-1.0); CALCIUM 9.5 MG/DL (8.5-10.1); CREATININE SERUM 2.05 MG/DL (0.60-1.30); TOTAL PROTEIN 6.9 GM/DL (6.4-8.2)
[2020-12-15] MEDS ORDERED: HYOS0.1283 SL (05:48)
[2020-12-15 06:04] VITALS: BP 190/130
== END 2020-12-15 06:04 | disposition home or self-care (01) ==
LOC: EDUNIT# 04:19 → ER FS 04:22
DX: R10.9 Unspecified abdominal pain (principal); K21.9 Gastro-esophageal reflux disease without esophagitis; F41.9 Anxiety disorder, unspecified; I10 Essential (primary) hypertension; E66.9 Obesity, unspecified; Z68.41 Body mass index [BMI] 40.0-44.9, adult; Z95.810 Presence of automatic (implantable) cardiac defibrillator; Z87.820 Personal history of traumatic brain injury; Z88.8 Allergy status to other drugs, medicaments and biological substances; Z90.49 Acquired absence of other specified parts of digestive tract; Z79.01 Long term (current) use of anticoagulants
CPT/HCPCS: 36415; 80053; 81000; 83690; 85025

== ENCOUNTER 2021-03-22 09:56 | Emergency (ER) | payer MEDICARE, MEDICAID ==
[~2021-03-22] VITALS: Ht 160 cm; Wt 108.0 kg
[~2021-03-22 09:56] MED LIST changes: +HYOS0.1283 SL
[2021-03-22 10:10] VITALS: BP 170/80
--- NOTE | 2021-03-22 10:13 | ED General ---
General Chief Complaint: Skin/Wound Problems Stated Complaint: WOUND INFECTION History of Present Illness Date Seen by Provider: Mar 22, 2021 Time Seen by Provider: 10:13 Initial Comments Patient had a laparoscopic hysterectomy with Dr. Curtis Bajwa 2 days ago at [facility] and has noticed that there is more drainage from her umbilical laparoscopic site. She denies worsening pain fevers chills nausea vomiting or other systemic symptoms. She says she is sore from the surgery but the pain has not changed. She is in no obvious distress with normal vital signs. She has not called her surgeon. Allergies and Home Medications Allergies Coded Allergies: JIA Inhibitors (Verified Allergy, Severe, 05/22/19) ARB-Angiotensin Receptor Antagonist (Verified Allergy, Severe, 05/22/19) baclofen (Unverified Allergy, Unknown, 05/22/19) ON H&P phenazopyridine (Unverified Allergy, Unknown, 05/22/19) ON H&P Home Medications Albuterol Sulfate 8 Gm Hfa.aer.ad, 2 PUFF INH Q6H PRN for SHORTNESS OF BREATH, (Reported) Amlodipine Besylate 10 Mg Tablet, 10 MG PO DAILY, (Reported) Apixaban 5 Mg Tablet, 5 MG PO BID Prescribed by: RALPH DELCID on 11/01/18 185 Cyclobenzaprine HCl 10 Mg Tablet, 10 MG PO Q8H PRN for SPASMS Prescribed by: ALPESH BARBOZA on 06/17/20 192 Diphenhydramine HCl 25 Mg Capsule, 25 MG PO Q4H PRN for throat irritation Prescribed by: EDISON CHAMBERLAIN on 05/11/20 1239 Diphenoxylate HCl/Atropine 1 Each Tablet, 1 EACH PO BID PRN for DIARRHEA Prescribed by: ORESTES VELASCO on 11/29/19 2309 Famotidine 40 Mg Tablet, 40 MG PO DAILY Prescribed by: EDISON CHAMBERLAIN on 05/11/20 1239 Fluconazole 100 Mg Tablet, 100 MG PO Q48H Prescribed by: MOIZ MARLEY on 08/28/19 1746 Fluconazole 100 Mg Tablet, 100 MG PO DAILY PRN Prescribed by: MOIZ MARLEY on 06/13/20 0017 Hydroxyzine Pamoate 50 Mg Capsule, 50 MG PO Q6H PRN for ANXIETY Prescribed by: RODRIGO HILL on 08/03/20 0145 Ibuprofen 800 Mg Tablet, 800 MG PO Q8H PRN for PAIN Prescribed by: ALPESH BARBOZA on 06/17/20 1923 Metoprolol Tartrate 50 Mg Tablet, 50 MG PO BID Prescribed by: FELECIA FORTUNE on 07/24/15 0841 Orphenadrine Citrate 100 Mg Tablet.er, 100 MG PO BID Prescribed by: RODRIGO HILL on 08/03/20 0145 Patient Home Medication List Home Medication List Reviewed: Yes Review of Systems Review of Systems Constitutional: no symptoms reported Respiratory: no symptoms reported Cardiovascular: no symptoms reported Gastrointestinal: abdominal pain Skin: other (drainage from lap site) All Other Systems Reviewed Negative Unless Noted: Yes Past Snsnaza-Qbzoxs-Znpvye Hx Patient Social History Alcohol Use: Denies Use Drug of Choice: denies Smoking Status: Former Smoker Type Used: Cigarettes 2nd Hand Smoke Exposure: No Recent Hopitalizations: No Immunizations Up To Date Tetanus Booster (TDap): Unknown PED Vaccines UTD: Yes Date of Pneumonia Vaccine: Sep 09, 2018 Date of Influenza Vaccine: Aug 19, 2015 Seasonal Allergies Seasonal Allergies: No Past Medical History Surgeries: Yes (PACER/DEFIB 2014; DEFIB PLACED 05/10/19. 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 No Pertinent Family Hx SOCIAL HISTORY: -OCCASIONAL ETOH -HX OF IV METH USE, CLAIMS NO USE SINCE 2015 -QUIT SMOKING SEVERAL YEARS AGO Physical Exam Vital Signs Vital Signs - First Documented 03/22/21 10:10 Temp 36.2 Pulse 82 Resp 18 B/P (MAP) 170/80 (110) Pulse Ox 97 O2 Delivery Room Air Capillary Refill : Height, Weight, BMI Height: 5'3.00" Weight: 234lbs. 0oz. 106.705160tx; 40.00 BMI Method:Stated General Appearance: No Apparent Distress, WD/WN Respiratory: Lungs Clear Cardiovascular: Regular Rate, Rhythm Gastrointestinal: Non Tender, Soft Extremity: Normal Capillary Refill Neurologic/Psychiatric: Alert, Oriented x3 Skin: Warm/Dry, Other (3/4 lap sites C/D/I. umbilical site has thin, small amount serosanguinous drainage. No blood. Dried crusting of fluid. No induration or erythema noted. No ttp.) Progress/Results/Core Measures Suspected Sepsis SIRS Temperature: Pulse: Respiratory Rate: Blood Pressure / Mean: Results/Orders Vital Signs/I&O 03/22/21 10:10 Temp 36.2 Pulse 82 Resp 18 B/P (MAP) 170/80 (110) Pulse Ox 97 O2 Delivery Room Air Capillary Refill : Progress Note : Progress Note Site appears to have a small amount of serosanguineous drainage but does not appear to be an abscess or purulent drainage. There may be minor infection at the sites we will go ahead and start her on Augmentin and recommended Neosporin twice daily keeping the wound clean and dry and calling her surgeon tomorrow morning to let them know what is going on. Patient has no abdominal tenderness on exam and I do not suspect any serious surgical complication at this time. Patient aware and agreeable with plan for discharge and verbalized understanding of the above instructions. Departure Impression Primary Impression: Postoperative complication of skin involving drainage from surgical wound Disposition: HOME, SELF-CARE Condition: Stable Departure-Patient Inst. Referrals: CHUNG BALDERAS APRN (PCP/Family) Primary Care Physician Patient Instructions: Wound Care Add. Discharge Instructions: Place neosporin on wound 2x daily. Dress wound. Keep wound clean. Call your surgeon tomorrow. All discharge instructions reviewed with patient and/or family. Voiced anna pearce. Scripts Fluconazole (Diflucan) 150 Mg Tablet 150 MG PO ONCE for 2 Days, #2 TAB Prov: MOUNIKA GARCIA DO 03/22/21 Amoxicillin/Potassium Clav (Augmentin 875-125 Tablet) 1 Each Tablet 1 EACH PO BID for 5 Days, #10 TAB 0 Refills Prov: MOUNIKA GARCIA DO 03/22/21 MOUNIKA GARCIA DO Mar 22, 2021 10:13
[2021-03-22] MEDS ORDERED: AMOX-358 PO (10:25)
[2021-03-22] MEDS ORDERED: FLUC150T PO (10:25)
== END 2021-03-22 10:27 | disposition home or self-care (01) ==
LOC: EDUNIT# 09:56 → ER FS 09:59
DX: T81.30XA Disruption of wound, unspecified, initial encounter (principal); I10 Essential (primary) hypertension; K21.9 Gastro-esophageal reflux disease without esophagitis; E66.9 Obesity, unspecified; F41.9 Anxiety disorder, unspecified; Z68.41 Body mass index [BMI] 40.0-44.9, adult; Z88.8 Allergy status to other drugs, medicaments and biological substances; Z87.891 Personal history of nicotine dependence; Z79.01 Long term (current) use of anticoagulants
CPT/HCPCS: 99282

== ENCOUNTER 2021-03-24 11:18 | Emergency (ER) | payer MEDICARE, MEDICAID ==
[~2021-03-24] VITALS: Ht 160 cm; Wt 112.7 kg
[~2021-03-24 11:18] MED LIST changes: +AMOX-358 PO; +FLUC150T PO
[2021-03-24 11:38] VITALS: BP 150/104
[2021-03-24] MEDS ORDERED: HYDROcodone/APAP 5 MG/325 MG (LORTAB) TAB PO ONE (11:45)
--- NOTE | 2021-03-24 11:45 | ED General ---
General Chief Complaint: Skin/Wound Problems Stated Complaint: FEVER; NAUSEA; SUPRAPUBIC PAIN;HX REC HYSTERECTOMY Source of Information: Patient History of Present Illness Date Seen by Provider: Mar 24, 2021 Time Seen by Provider: 11:20 Initial Comments Patient is a 30-year-old -Welsh female who presents 6 days post laparoscopic assisted hysterectomy with poorly controlled diffuse lower abdominal pain located over incision sites. Patient states she was prescribed oxycodone but has not been able to take it as it makes her itch. Patient reports constant pain that is worse with position change and movement. She denies worsening of pain, she denies fever chills, nausea vomiting or sweats. Patient was evaluated in the emergency department 2 days ago for an incisional infection was placed on Neosporin on Augmentin. There is no more drainage to this region his problem has resolved. No dizziness lightheadedness, urinary frequency urgency or burning. No cough, sore throat, shortness of breath. No increased leg pain or swelling. No other acute symptoms or complaints. Patient did not contact her [facility] prior to coming to the emergency department. Timing/Duration: 4-6 Hours Severity: Moderate Modifying Factors: improves with Other Associated Systoms: Other Allergies and Home Medications Allergies Coded Allergies: JIA Inhibitors (Verified Allergy, Severe, 05/22/19) ARB-Angiotensin Receptor Antagonist (Verified Allergy, Severe, 05/22/19) baclofen (Unverified Allergy, Unknown, 05/22/19) ON H&P phenazopyridine (Unverified Allergy, Unknown, 05/22/19) ON H&P Home Medications Albuterol Sulfate 8 Gm Hfa.aer.ad, 2 PUFF INH Q6H PRN for SHORTNESS OF BREATH, (Reported) Amlodipine Besylate 10 Mg Tablet, 10 MG PO DAILY, (Reported) Amoxicillin/Potassium Clav 1 Each Tablet, 1 EACH PO BID Prescribed by: MOUNIKA GARCIA on 03/22/21 1025 Apixaban 5 Mg Tablet, 5 MG PO BID Prescribed by: RALPH DELCID on 11/01/18 185 Cyclobenzaprine HCl 10 Mg Tablet, 10 MG PO Q8H PRN for SPASMS Prescribed by: ALPESH BARBOZA on 06/17/201922 Diphenhydramine HCl 25 Mg Capsule, 25 MG PO Q4H PRN for throat irritation Prescribed by: EDISON CHAMBERLAIN on 05/11/20 1239 Diphenoxylate HCl/Atropine 1 Each Tablet, 1 EACH PO BID PRN for DIARRHEA Prescribed by: ORESTES VELASCO on 11/29/19 2309 Famotidine 40 Mg Tablet, 40 MG PO DAILY Prescribed by: EDISON CHAMBERLAIN on 05/11/20 1239 Fluconazole 100 Mg Tablet, 100 MG PO Q48H Prescribed by: MOIZ MARLEY on 08/28/19 1746 Fluconazole 100 Mg Tablet, 100 MG PO DAILY PRN Prescribed by: MOIZ MARLEY on 06/13/20 0017 Fluconazole 150 Mg Tablet, 150 MG PO ONCE Prescribed by: MOUNIKA GARCIA on 03/22/21 1025 Hydroxyzine Pamoate 50 Mg Capsule, 50 MG PO Q6H PRN for ANXIETY Prescribed by: RODRIGO HILL on 08/03/20 0145 Ibuprofen 800 Mg Tablet, 800 MG PO Q8H PRN for PAIN Prescribed by: ALPESH BARBOZA on 06/17/20 1923 Metoprolol Tartrate 50 Mg Tablet, 50 MG PO BID Prescribed by: FELECIA FORTUNE on 07/24/15 0841 Orphenadrine Citrate 100 Mg Tablet.er, 100 MG PO BID Prescribed by: RODRIGO HILL on 08/03/20 0145 Patient Home Medication List Home Medication List Reviewed: Yes Review of Systems Review of Systems Constitutional: see HPI EENTM: see HPI Respiratory: see HPI Cardiovascular: see HPI Gastrointestinal: see HPI Genitourinary: see HPI Musculoskeletal: see HPI Skin: see HPI Psychiatric/Neurological: See HPI Hematologic/Lymphatic: See HPI Immunological/Allergic: see HPI All Other Systems Reviewed Negative Unless Noted: Yes Past Kqdydfc-Cxslgv-Milsur Hx Past Med/Social Hx: Reviewed Nursing Past Med/Soc Hx Patient Social History Alcohol Use: Denies Use Drug of Choice: denies Type Used: Cigarettes 2nd Hand Smoke Exposure: No Recent Hopitalizations: No Immunizations Up To Date Tetanus Booster (TDap): Unknown PED Vaccines UTD: Yes Date of Pneumonia Vaccine: Sep 09, 2018 Date of Influenza Vaccine: Aug 19, 2015 Seasonal Allergies Seasonal Allergies: No Past Medical History Surgeries: Yes (PACER/DEFIB 2014; DEFIB PLACED 05/10/19. PEG TUBE- REMOVED;UTERINE ABLATION) Abdominal, Section, Defibrillator, Gallbladder, Hysterectomy, Pacemaker Respiratory: Yes (ARDS-CODED; PNEUMOTHORAX 06/2015) Pneumonia, Chronic Bronchitis Currently Using CPAP: No Currently Using BIPAP: No Cardiac: Yes (PULMONARY EDEMA/CARDIAC CAUSE-R/T ATRIAL THROMBUS; CARDIAC ARREST;V-FIB ) Cardiomyopathy, Endocarditis, Hypertension, Valvular Heart Disease Neurological: Yes (encephalopathy-hypoxia, anoxic brain injury; POOR MEMORY) Reproductive Disorders: No [facility] History: Hysterectomy Sexually Transmitted Disease: No Genitourinary: Yes Renal Failure Gastrointestinal: Yes Gastroesophageal Reflux Musculoskeletal: Yes (GAIT DISTURBANCE) Endocrine: No (OBESITY) HEENT: No Loss of Vision: Denies Hearing Impairment: Denies Cancer: No Psychosocial: Yes Anxiety, Bipolar, Depression Integumentary: No Blood Disorders: Yes (ANEMIA) Family Medical History Patient reports no known family medical history. No Pertinent Family Hx SOCIAL HISTORY: -OCCASIONAL ETOH -HX OF IV METH USE, CLAIMS NO USE SINCE 2015 -QUIT SMOKING SEVERAL YEARS AGO Physical Exam Vital Signs Vital Signs - First Documented 03/24/21 11:38 Temp 36.2 Pulse 83 Resp 18 B/P (MAP) 150/104 (119) Pulse Ox 96 O2 Delivery Room Air Capillary Refill : Height, Weight, BMI Height: 5'3.00" Weight: 234lbs. 0oz. [id number]; 42.00 BMI Method:Stated General Appearance: No Apparent Distress, Anxious Eyes: Bilateral Eye Normal Inspection, Bilateral Eye PERRL, Bilateral Eye EOMI HEENT: PERRL/EOMI, Pharynx Normal, Moist Mucous Membranes Neck: Full Range of Motion, Non Tender Respiratory: Lungs Clear Cardiovascular: Regular Rate, Rhythm Gastrointestinal: Soft, Tenderness (Appropriate abdominal tenderness over laparoscopic incisions. Incisions clean dry and intact without infection.) Back: Normal Inspection, No CVA Tenderness, No Vertebral Tenderness Extremity: Normal Capillary Refill, Normal Inspection; No Calf Tenderness Neurologic/Psychiatric: Alert, Oriented x3 Skin: Normal Color Progress/Results/Core Measures Suspected Sepsis SIRS Temperature: Pulse: Respiratory Rate: Blood Pressure / Mean: Results/Orders My Orders Orders - MOIZ MARLEY DO Hydrocodone/Apap 5/325 Tablet (Lortab 5 (03/24/21 11:45) Medications Given in ED Current Medications Medications Dose Ordered Sig/Mikal Route Start Time Stop Time Status Last Admin Dose Admin Acetaminophen/ Hydrocodone Bitart 2 ea ONCE ONCE PO 03/24/21 11:45 03/24/21 11:46 DC 03/24/21 11:48 2 EA Vital Signs/I&O 03/24/21 11:38 Temp 36.2 Pulse 83 Resp 18 B/P (MAP) 150/104 (119) Pulse Ox 96 O2 Delivery Room Air Capillary Refill : Departure Communication (Admissions) Patient tolerates new pain medications in the ED with improved pain without itching. Will Rx hydrocodone. Impression Primary Impression: Postoperative abdominal pain Additional Impression: Medication reaction Disposition: HOME, SELF-CARE Condition: Stable Departure-Patient Inst. Decision time for Depature: 12:16 Referrals: CHUNG BALDERAS APRN (PCP/Family) Primary Care Physician Patient Instructions: Adverse Drug Reactions, Adult ED Add. Discharge Instructions: Please discontinue oxycodone and take newly prescribed pain medication as directed. Follow-up with your [facility] surgeon as scheduled. All discharge instructions reviewed with patient and/or family. Voiced understanding. Scripts Hydrocodone/Acetaminophen (Hydrocodone-Acetamin 5-325 mg) 1 Each Tablet 1 TAB PO Q4H PRN for PAIN-MODERATE (5-7), #14 TAB Prov: MOIZ MARLEY DO 03/24/21 MOIZ MARLEY DO Mar 24, 2021 11:45
[2021-03-24] MEDS ORDERED: ACHD5005 PO (12:17)
== END 2021-03-24 12:20 | disposition home or self-care (01) ==
LOC: EDUNIT# 11:18 → ER FS 11:21
DX: G89.18 Other acute postprocedural pain (principal); T40.2X5A Adverse effect of other opioids, initial encounter; I10 Essential (primary) hypertension; K21.9 Gastro-esophageal reflux disease without esophagitis; F41.9 Anxiety disorder, unspecified; Z88.8 Allergy status to other drugs, medicaments and biological substances; Z79.899 Other long term (current) drug therapy; Z79.01 Long term (current) use of anticoagulants
CPT/HCPCS: 99283

== ENCOUNTER 2021-04-03 12:38 | Emergency (ER) | payer MEDICARE, MEDICAID ==
[~2021-04-03] VITALS: Ht 160 cm; Wt 99.0 kg
[2021-04-03] MEDS ORDERED: ONDANSETRON 4 MG (ZOFRAN) ORAL DISSOLVE TAB PO STA (13:03)
--- NOTE | 2021-04-03 13:10 | ED General ---
General Chief Complaint: - Urinary Stated Complaint: VAGINAL BLEEDING; VOMITING Nursing Triage Note: PT REPORTS WHEN SHE WIPES AFTER URINATING THERE IS PINK ON THE TOILET PAPER. HYSTERECTOMY ON MARCH 18, 2021. Nursing Sepsis Screen: No Definite Risk Source of Information: Patient, Family History of Present Illness Date Seen by Provider: April 03, 2021 Time Seen by Provider: 12:44 Initial Comments 30 yo Female presenting with complaints of seeing blood when she wipes after urinating. She has had pain with urination as well. She has a lot of pressure in the suprapubic area. She had laparoscopic assisted hysterectomy July [address] Acevedo at [facility]. She had been having some drainage from her umbilical area. The drainage has resolved. She denies any fever or chills. She has been having a generalized headache in the last few days. She had one episode of vomiting today. She denies any change in her bowel movements. Allergies and Home Medications Allergies Coded Allergies: JIA Inhibitors (Verified Allergy, Severe, 05/22/19) ARB-Angiotensin Receptor Antagonist (Verified Allergy, Severe, 05/22/19) baclofen (Unverified Allergy, Unknown, 05/22/19) ON H&P phenazopyridine (Unverified Allergy, Unknown, 05/22/19) ON H&P Home Medications Albuterol Sulfate 8 Gm Hfa.aer.ad, 2 PUFF INH Q6H PRN for SHORTNESS OF BREATH, (Reported) Amlodipine Besylate 10 Mg Tablet, 10 MG PO DAILY, (Reported) Amoxicillin/Potassium Clav 1 Each Tablet, 1 EACH PO BID Prescribed by: MOUNIKA GARCIA on 03/22/21 1025 Apixaban 5 Mg Tablet, 5 MG PO BID Prescribed by: RALPH DELCID on 11/01/18 1856 Cephalexin 500 Mg Capsule, 500 MG PO TID Prescribed by: EDISON CHAMBERLAIN on 04/03/21 1426 Cyclobenzaprine HCl 10 Mg Tablet, 10 MG PO Q8H PRN for SPASMS Prescribed by: ALPESH BARBOZA on 06/17/20 1923 Diphenhydramine HCl 25 Mg Capsule, 25 MG PO Q4H PRN for throat irritation Prescribed by: EDISON CHAMBERLAIN on 05/11/20 1239 Diphenoxylate HCl/Atropine 1 Each Tablet, 1 EACH PO BID PRN for DIARRHEA Prescribed by: ORESTES VELASCO on 11/29/19 2309 Famotidine 40 Mg Tablet, 40 MG PO DAILY Prescribed by: EDISON CHAMBERLAIN on 05/11/20 1239 Fluconazole 100 Mg Tablet, 100 MG PO Q48H Prescribed by: MOIZ MARLEY on 08/28/19 1746 Fluconazole 100 Mg Tablet, 100 MG PO DAILY PRN Prescribed by: MOIZ MARLEY on 06/13/20 0017 Fluconazole 150 Mg Tablet, 150 MG PO ONCE Prescribed by: MOUNIKA GARCIA on 03/22/21 1025 Fluconazole 150 Mg Tablet, 150 MG PO ONCE Take after you complete the course of Cephalexin for UTI. Prescribed by: EDISON CHAMBERLAIN on 04/03/21 1426 Hydrocodone/Acetaminophen 1 Each Tablet, 1 TAB PO Q4H PRN for PAIN-MODERATE (5- 7) Prescribed by: MOIZ MARLEY on 03/24/21 1217 Hydroxyzine Pamoate 50 Mg Capsule, 50 MG PO Q6H PRN for ANXIETY Prescribed by: RODRIGO HILL on 08/03/20 0145 Ibuprofen 800 Mg Tablet, 800 MG PO Q8H PRN for PAIN Prescribed by: ALPESH BARBOZA on 06/17/20 1923 Metoclopramide HCl 10 Mg Tablet, 10 MG PO TID PRN for NAUSEA/VOMITING Prescribed by: EDISON CHAMBERLAIN on 04/03/21 1426 Metoprolol Tartrate 50 Mg Tablet, 50 MG PO BID Prescribed by: FELECIA FORTUNE on 07/24/15 0841 Orphenadrine Citrate 100 Mg Tablet.er, 100 MG PO BID Prescribed by: RODRIGO HILL on 08/03/20 0145 Patient Home Medication List Home Medication List Reviewed: Yes Review of Systems Review of Systems Constitutional: No chills, No fever; malaise EENTM: no symptoms reported Respiratory: no symptoms reported Cardiovascular: no symptoms reported Gastrointestinal: abdominal pain (suprapubic), nausea, vomiting (x1 today) Genitourinary: dysuria, hematuria (seeing blood when she wipes after urination), pain (with urination and over bladder area) Musculoskeletal: no symptoms reported Skin: no symptoms reported Psychiatric/Neurological: Headache Past Bzieaaz-Mwiimq-Miqgvc Hx Past Med/Social Hx: Reviewed Nursing Past Med/Soc Hx Patient Social History Alcohol Use: Denies Use Drug of Choice: denies Smoking Status: Never a Smoker Type Used: Cigarettes 2nd Hand Smoke Exposure: No Recent Infectious Disease Expo: No Recent Hopitalizations: No Immunizations Up To Date Tetanus Booster (TDap): Unknown PED Vaccines UTD: Yes Date of Pneumonia Vaccine: Sep 09, 2018 Date of Influenza Vaccine: Aug 19, 2015 Seasonal Allergies Seasonal Allergies: No Past Medical History Surgeries: Yes (PACER/DEFIB 2014; DEFIB PLACED 05/10/19. PEG TUBE- REMOVED;UTERINE ABLATION) Abdominal, Section, Defibrillator, Gallbladder, Hysterectomy, Pacemaker Respiratory: Yes (ARDS-CODED; PNEUMOTHORAX 06/2015) Pneumonia, Chronic Bronchitis Currently Using CPAP: No Currently Using BIPAP: No Cardiac: Yes (PULMONARY EDEMA/CARDIAC CAUSE-R/T ATRIAL THROMBUS; CARDIAC ARREST;V-FIB ) Cardiomyopathy, Endocarditis, Hypertension, Valvular Heart Disease Neurological: Yes (encephalopathy-hypoxia, anoxic brain injury; POOR MEMORY) Reproductive Disorders: No M[facility]ER History: Hysterectomy Sexually Transmitted Disease: No Genitourinary: Yes Renal Failure Gastrointestinal: Yes Gastroesophageal Reflux Musculoskeletal: Yes (GAIT DISTURBANCE) Endocrine: No (OBESITY) HEENT: No Loss of Vision: Denies Hearing Impairment: Denies Cancer: No Psychosocial: Yes Anxiety, Bipolar, Depression Integumentary: No Blood Disorders: Yes (ANEMIA) Family Medical History Patient reports no known family medical history. No Pertinent Family Hx SOCIAL HISTORY: -OCCASIONAL ETOH -HX OF IV METH USE, CLAIMS NO USE SINCE 2015 -QUIT SMOKING SEVERAL YEARS AGO Physical Exam Vital Signs Vital Signs - First Documented 04/03/21 12:55 Temp 36.6 Pulse 71 Resp 18 B/P (MAP) 143/104 (117) Pulse Ox 98 O2 Delivery Room Air Capillary Refill : Less Than 3 Seconds Height, Weight, BMI Height: 5'3.00" Weight: 234lbs. 0oz. 106.582509mn; 38.00 BMI Method:Stated General Appearance: No Apparent Distress, WD/WN HEENT: Pharynx Normal Neck: Non Tender, Supple Respiratory: Chest Non Tender, Lungs Clear, Normal Breath Sounds Cardiovascular: Regular Rate, Rhythm, Normal Peripheral Pulses Gastrointestinal: No Pulsatile Mass, Soft, Abnormal Bowel Sounds (decreased); No Distended, No Guarding, No Mass, No Rebound; Tenderness (suprapubic) Rectal: Deferred Extremity: Normal Capillary Refill, No Pedal Edema Neurologic/Psychiatric: Alert, Oriented x3 Skin: Normal Color, Warm/Dry Progress/Results/Core Measures Suspected Sepsis Recent Fever Within 48 Hours: No Infection Criteria Present: None New/Unexplained Altered Menta: No Sepsis Screen: No Definite Risk SIRS Temperature: Pulse: 71 Respiratory Rate: 18 Blood Pressure 143 /104 Mean: 117 Results/Orders Lab Results Laboratory Tests Test 04/03/21 13:00 Range/Units Urine Color YELLOW Urine Clarity CLOUDY H Urine pH 6.0 5-9 Urine Specific [place] >=1.030 1.016-1.022 Urine Protein 3+ H NEGATIVE Urine Glucose (UA) NEGATIVE NEGATIVE Urine Ketones NEGATIVE NEGATIVE Urine Nitrite NEGATIVE NEGATIVE Urine Bilirubin NEGATIVE NEGATIVE Urine Urobilinogen 0.2 < = 1.0 MG/DL Urine Leukocyte Esterase NEGATIVE NEGATIVE Urine RBC (Auto) 2+ H NEGATIVE Urine RBC 2-5 H /HPF Urine WBC 5-10 H /HPF Urine Squamous Epithelial Cells TNTC H /HPF Urine Crystals NONE /LPF Urine Bacteria MODERATE H /HPF Urine Casts NONE /LPF Urine Mucus SMALL H /LPF Urine Culture Indicated NO My Orders Orders - EDISON CHAMBERLAIN MD Ondansetron Oral Dissolve Tab (Zofran (04/03/21 13:03) Ua Culture If Indicated (04/03/21 13:03) Vital Signs/I&O 04/03/21 04/03/21 12:55 14:12 Temp 36.6 36.6 Pulse 71 75 Resp 18 16 B/P (MAP) 143/104 (117) 138/92 Pulse Ox 98 98 O2 Delivery Room Air Room Air Capillary Refill : Less Than 3 Seconds Blood Pressure Mean: 117 Progress Note #1: Progress Note start with checking urine to see if infection could be source of blood when she wipes. With no blood at other times this is not likely to be from surgery to start now over 2 weeks since surgery. Will defer pelvic exam unless UA clear to help prevent additional trauma and stretching to vaginal vault. Progress Note #2: Progress Note UA with blood, bacteria, concentrated with elevated specific gravity. Will treat for UTI. Counseled that if she starts having vaginal bleeding separate from seeing it on toilet paper after urination then to return and she would have to have a speculum exam to examine the surgical incision site. The risk of causing damage with her only 2 weeks out from surgery are higher so will defer pelvic exam today. She reports having yeast infection after antibiotics so will give diflucan to take after meds. Counseled on follow up and return precautions. Ad vised of plan and need to be seen if having ovi vaginal bleeding, otherwise continue with nothing per vagina. Departure Impression Primary Impression: Hematuria due to acute cystitis Additional Impressions: Elevated blood pressure reading Nausea and vomiting in adult Headache Qualified Codes: R51.9 - Headache, unspecified Disposition: 01 HOME, SELF-CARE Condition: Stable Departure-Patient Inst. Decision time for Depature: 14:19 Referrals: CHUNG BALDERAS APRN (PCP/Family) Primary Care Physician Patient Instructions: Nausea and Vomiting, Adult ED, Urinary Tract Infection, Adult ED Add. Discharge Instructions: Drink more water and try to keep your urine as light colored as possible. Take the full course of antibiotics to treat for urine infection. You could take the Diflucan (Fluconazole) for yeast infection if you need it at the end of the antibiotics. If you need something for itching and discharge from a yeast infection while taking the antibiotic use Monistat or an over the counter yeast medicine. The Diflucan will only clear the yeast infection if you take it after you finish the antibiotics. Your nausea, blood pressure and headache should improve as the infection clears up. If you have continued or worsening symptoms then check with clinic for further evaluation. All discharge instructions reviewed with patient and/or family. Voiced understanding. Scripts Metoclopramide HCl (Metoclopramide HCl) 10 Mg Tablet 10 MG PO TID PRN for NAUSEA/VOMITING for 3 Days, #9 TAB 0 Refills Prov: EDISON CHAMBERLAIN MD 04/03/21 Fluconazole (Fluconazole) 150 Mg Tablet 150 MG PO ONCE for Yeast Vaginitis for 1 Day, #1 TAB 0 Refills Take after you complete the course of Cephalexin for UTI. Prov: EDISON CHAMBERLAIN MD 04/03/21 Cephalexin (Cephalexin) 500 Mg Capsule 500 MG PO TID for UTI for 10 Days, #30 CAP 0 Refills Prov: EDISON CHAMBERLAIN MD 04/03/21 EDISON CHAMBERLAIN MD April 03, 2021 13:10
[2021-04-03 13:34] LABS: CLARITY,URINE CLOUDY; COLOR,URINE YELLOW; PROTEIN,URINE 3+ (NEGATIVE)
[2021-04-03 13:35] LABS: BACTERIA,URINE MODERATE /HPF; BILIRUBIN,URINE NEGATIVE (NEGATIVE); GLUCOSE, URINE (UA) NEGATIVE (NEGATIVE); KETONES,URINE NEGATIVE (NEGATIVE); LEUKOCYTE ESTERASE ,URINE NEGATIVE (NEGATIVE); NITRITE,URINE NEGATIVE (NEGATIVE); SQUAMOUS EPITHELIAL CELL,UR TNTC /HPF
[2021-04-03 14:12] VITALS: BP 138/92
[2021-04-03] MEDS ORDERED: MTC10T PO (14:26)
[2021-04-03] MEDS ORDERED: FLUC150T2 PO (14:26)
[2021-04-03] MEDS ORDERED: CEPH500C PO (14:26)
== END 2021-04-03 14:29 | disposition home or self-care (01) ==
LOC: EDUNIT# 12:38 → ER FS 12:39
DX: N30.01 Acute cystitis with hematuria (principal); I10 Essential (primary) hypertension; R11.2 Nausea with vomiting, unspecified; R51.9 Headache, unspecified; F41.9 Anxiety disorder, unspecified; K21.9 Gastro-esophageal reflux disease without esophagitis; Z88.8 Allergy status to other drugs, medicaments and biological substances; Z79.01 Long term (current) use of anticoagulants; Z79.899 Other long term (current) drug therapy
CPT/HCPCS: 81000; 99283

== ENCOUNTER 2021-04-26 22:40 | Emergency (ER) | payer MEDICARE, MEDICAID ==
[~2021-04-26] VITALS: Ht 160 cm; Wt 112.7 kg
[~2021-04-26 22:40] MED LIST changes: +CEPH500C PO; +FLUC150T2 PO; +MTC10T PO
[2021-04-26 22:55] VITALS: BP 166/100
[2021-04-26] MEDS ORDERED: TRM50T PO (23:13)
--- NOTE | 2021-04-26 23:14 | ED General ---
General Chief Complaint: Abdominal/GI Problems Stated Complaint: LOWER ABDOMINAL PAIN Nursing Triage Note: Pt reports lower abd/pelvic pain since having hysterectomy in february, has been seen seveal times with no diagnosis Nursing Sepsis Screen: No Definite Risk Source of Information: Patient History of Present Illness Date Seen by Provider: April 26, 2021 Time Seen by Provider: 22:40 Initial Comments Patient is a 30-year-old -[place] female presents with suprapubic pain. Patient has had an intermittent pelvic pain for the past several months since her hysterectomy in February. Pain is described as sharp so a fishing hook is being pulled down through her skin. Pain constant, nonmigratory nonradiating and is rated moderate to severe is worse palpation and movement. Is partially relieved with tramadol. No urinary frequency urgency or dysuria. No vaginal discharge. No flank pain. No history of kidney stones. No nausea vomiting or sweats. No other acute symptoms or complaints. Patient is currently on antibiotics for foot infection. Timing/Duration: 1-2 Days, Other Severity: Moderate Modifying Factors: improves with Other Associated Systoms: Other Allergies and Home Medications Allergies Coded Allergies: JIA Inhibitors (Verified Allergy, Severe, 05/22/19) ARB-Angiotensin Receptor Antagonist (Verified Allergy, Severe, 05/22/19) baclofen (Unverified Allergy, Unknown, 05/22/19) ON H&P phenazopyridine (Unverified Allergy, Unknown, 05/22/19) ON H&P Home Medications Albuterol Sulfate 8 Gm Hfa.aer.ad, 2 PUFF INH Q6H PRN for SHORTNESS OF BREATH, (Reported) Amlodipine Besylate 10 Mg Tablet, 10 MG PO DAILY, (Reported) Amoxicillin/Potassium Clav 1 Each Tablet, 1 EACH PO BID Prescribed by: MOUNIKA GARCIA on 03/22/21 1025 Apixaban 5 Mg Tablet, 5 MG PO BID Prescribed by: RALPH DELCID on 11/01/18 185 Cephalexin 500 Mg Capsule, 500 MG PO TID Prescribed by: EDISON CHAMBERLAIN on 04/03/21 1426 Cyclobenzaprine HCl 10 Mg Tablet, 10 MG PO Q8H PRN for SPASMS Prescribed by: ALPESH BARBOZA on 06/17/20 192 Diphenhydramine HCl 25 Mg Capsule, 25 MG PO Q4H PRN for throat irritation Prescribed by: EDISON CHAMBERLAIN on 05/11/20 1239 Diphenoxylate HCl/Atropine 1 Each Tablet, 1 EACH PO BID PRN for DIARRHEA Prescribed by: ORESTES VELASCO on 11/29/19 2309 Famotidine 40 Mg Tablet, 40 MG PO DAILY Prescribed by: EDISON CHAMBERLAIN on 05/11/20 1239 Fluconazole 100 Mg Tablet, 100 MG PO Q48H Prescribed by: MOIZ MARLEY on 08/28/19 1746 Fluconazole 100 Mg Tablet, 100 MG PO DAILY PRN Prescribed by: MOIZ MARLEY on 06/13/20 0017 Fluconazole 150 Mg Tablet, 150 MG PO ONCE Prescribed by: MOUNIKA GARCIA on 03/22/21 1025 Fluconazole 150 Mg Tablet, 150 MG PO ONCE Take after you complete the course of Cephalexin for UTI. Prescribed by: EDISON CHAMBERLAIN on 04/03/21 1426 Hydrocodone/Acetaminophen 1 Each Tablet, 1 TAB PO Q4H PRN for PAIN-MODERATE (5- 7) Prescribed by: MOIZ MARLEY on 03/24/21 1217 Hydroxyzine Pamoate 50 Mg Capsule, 50 MG PO Q6H PRN for ANXIETY Prescribed by: RODRIGO HILL on 08/03/20 0145 Ibuprofen 800 Mg Tablet, 800 MG PO Q8H PRN for PAIN Prescribed by: ALPESH BARBOZA on 06/17/20 1923 Metoclopramide HCl 10 Mg Tablet, 10 MG PO TID PRN for NAUSEA/VOMITING Prescribed by: EDISON CHAMBERLAIN on 04/03/21 1426 Metoprolol Tartrate 50 Mg Tablet, 50 MG PO BID Prescribed by: FELECIA FORTUNE on 07/24/15 0841 Orphenadrine Citrate 100 Mg Tablet.er, 100 MG PO BID Prescribed by: RODRIGO HILL on 08/03/20 0145 Patient Home Medication List Home Medication List Reviewed: Yes Review of Systems Review of Systems Constitutional: see HPI EENTM: see HPI Respiratory: no symptoms reported Gastrointestinal: see HPI Genitourinary: see HPI Musculoskeletal: see HPI Skin: see HPI Psychiatric/Neurological: See HPI Hematologic/Lymphatic: See HPI Immunological/Allergic: see HPI Past Vpgwphr-Xyputb-Napzzz Hx Past Med/Social Hx: Reviewed Nursing Past Med/Soc Hx Patient Social History Alcohol Use: Denies Use Drug of Choice: denies Smoking Status: Current Everyday Smoker Type Used: Cigarettes 2nd Hand Smoke Exposure: No Recent Infectious Disease Expo: No Recent Hopitalizations: No Immunizations Up To Date Tetanus Booster (TDap): Unknown PED Vaccines UTD: Yes Date of Pneumonia Vaccine: Sep 09, 2018 Date of Influenza Vaccine: Aug 19, 2015 Seasonal Allergies Seasonal Allergies: No Past Medical History Surgeries: Yes (PACER/DEFIB 2014; DEFIB PLACED 05/10/19. PEG TUBE- REMOVED;UTERINE ABLATION) Abdominal, Section, Defibrillator, Gallbladder, Hysterectomy, Pacemaker Respiratory: Yes (ARDS-CODED; PNEUMOTHORAX 06/2015) Pneumonia, Chronic Bronchitis Currently Using CPAP: No Currently Using BIPAP: No Cardiac: Yes (PULMONARY EDEMA/CARDIAC CAUSE-R/T ATRIAL THROMBUS; CARDIAC ARREST;V-FIB ) Cardiomyopathy, Endocarditis, Hypertension, Valvular Heart Disease Neurological: Yes (encephalopathy-hypoxia, anoxic brain injury; POOR MEMORY) Reproductive Disorders: No [employer] CHIEF History: Hysterectomy Sexually Transmitted Disease: No Genitourinary: Yes Renal Failure Gastrointestinal: Yes Gastroesophageal Reflux Musculoskeletal: Yes (GAIT DISTURBANCE) Endocrine: No (OBESITY) HEENT: No Loss of Vision: Denies Hearing Impairment: Denies Cancer: No Psychosocial: Yes Anxiety, Bipolar, Depression Integumentary: No Blood Disorders: Yes (ANEMIA) Family Medical History Patient reports no known family medical history. 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 0oz. 106.340608ob; 44.00 BMI Method:Stated General Appearance: No Apparent Distress, WD/WN Eyes: Bilateral Eye Normal Inspection HEENT: PERRL/EOMI, Pharynx Normal Respiratory: Chest Non Tender, Lungs Clear, Normal Breath Sounds Cardiovascular: Regular Rate, Rhythm Gastrointestinal: Soft, Other (Suprapubic tenderness. No rebound rigidity or guarding) Back: Normal Inspection Extremity: Normal Capillary Refill Neurologic/Psychiatric: Alert, Oriented x3 Progress/Results/Core Measures Suspected Sepsis Recent Fever Within 48 Hours: No Infection Criteria Present: None New/Unexplained Altered Menta: No Sepsis Screen: No Definite Risk SIRS Temperature: Pulse: 88 Respiratory Rate: 16 Blood Pressure 166 /100 Mean: 122 Results/Orders My Orders Orders - MOIZ MARLEY DO Tramadol Tablet (Ultram Tablet) (04/26/21 23:15) Vital Signs/I&O 04/26/21 22:55 Temp 36.6 Pulse 88 Resp 16 B/P (MAP) 166/100 (122) Pulse Ox 98 O2 Delivery Room Air Capillary Refill : Less Than 3 Seconds Blood Pressure Mean: 122 Departure Communication (Admissions) Physical exam reassuring. Symptoms most consistent with from adhesions versus ovarian cyst. Ultrasound not available given patient is on antibiotics for a skin infection there is low probability of urinary tract infection. No urine was tested. Pain addressed. Will have patient follow-up with PCP and/or dining car steward for further evaluation. Return precautions reviewed. Pain patient verbalizes understanding agreement discharge instructions prior to departure. Impression Primary Impression: Pelvic pain Disposition: HOME, SELF-CARE Condition: Stable Departure-Patient Inst. Decision time for Depature: 23:12 Referrals: CHUNG BALDERAS APRN (PCP/Family) Primary Care Physician Patient Instructions: Pelvic Pain (DC) Add. Discharge Instructions: Please take newly prescribed medications as directed and follow-up with your PCP and/or dining car steward. All discharge instructions reviewed with patient and/or family. Voiced understanding. Scripts Tramadol HCl (Tramadol HCl) 50 Mg Tablet 100 MG PO Q6H PRN for PAIN for 3 Days, #10 TAB 0 Refills Prov: MARLEYMOIZ TINSLEY 04/26/21 MOIZ MARLEY DO April 26, 2021 23:13
== END 2021-04-26 23:18 | disposition home or self-care (01) ==
LOC: EDUNIT# 22:40 → ER FS 22:43
DX: R10.2 Pelvic and perineal pain (principal); I10 Essential (primary) hypertension; I42.9 Cardiomyopathy, unspecified; K21.9 Gastro-esophageal reflux disease without esophagitis; F41.9 Anxiety disorder, unspecified; F17.210 Nicotine dependence, cigarettes, uncomplicated; Z95.810 Presence of automatic (implantable) cardiac defibrillator; Z79.899 Other long term (current) drug therapy; Z90.710 Acquired absence of both cervix and uterus
CPT/HCPCS: 99283

== ENCOUNTER 2021-05-28 07:13 | Emergency (ER) | payer MEDICARE, MEDICAID ==
[~2021-05-28 07:13] MED LIST changes: +TRM50T PO
[2021-05-28] MEDS ORDERED: FAMOTIDINE 20MG/2ML IV (PEPCID) IVP ONE (07:30)
[2021-05-28] MEDS ORDERED: ONDANSETRON 4 MG/2 ML (SDV) Z0FRAN IVP ONE (07:30)
[2021-05-28] MEDS ORDERED: methylPREDNISolone 125 MG (Solu-MEDROL) VIAL IVP ONE (07:30)
[2021-05-28] MEDS ORDERED: EPINEPHrine INJECTION 1 MG/ML AMP IM ONE (07:30)
[2021-05-28] MEDS ORDERED: diphenhydrAMINE 50 MG/ML INJ (BENADRYL) IVP ONE (07:30)
--- NOTE | 2021-05-28 08:24 | ED General ---
General Chief Complaint: Allergic Reaction Stated Complaint: THROAT/TONGUE SWELLING Nursing Triage Note: Patient presents to the ED with c/o of tounge and throat swelling. She reports that she took a dose of Augmentin a couple hours ago and started feeling like her tounge and throat where swelling making it difficult to swallow. Patient also reports some shortness of breath. History of Present Illness Date Seen by Provider: May 28, 2021 Time Seen by Provider: 08:20 Initial Comments Patient presenting to the emergency department for evaluation of a sensation of throat closing and tongue swelling that she says started after taking a dose of Augmentin several hours prior to arrival. She says she was started on Augmentin for a urinary tract infection yesterday but took her first dose this morning. She says she has no known penicillin allergy. She denies any other new exposures including no soaps detergents foods or anything else she can think of. She feels itchy but she has noted no hives. Her family is with her and I asked her if her voice is different and she did not think so. Patient does not appear to be in any respiratory distress. Allergies and Home Medications Allergies Coded Allergies: JIA Inhibitors (Verified Allergy, Severe, 05/22/19) ARB-Angiotensin Receptor Antagonist (Verified Allergy, Severe, 05/22/19) amoxicillin (Verified Allergy, Unknown, 05/28/21) baclofen (Unverified Allergy, Unknown, 05/22/19) ON H&P clavulanic acid (Verified Allergy, Unknown, 05/28/21) phenazopyridine (Unverified Allergy, Unknown, 05/22/19) ON H&P Home Medications Albuterol Sulfate 8 Gm Hfa.aer.ad, 2 PUFF INH Q6H PRN for SHORTNESS OF BREATH, (Reported) Amlodipine Besylate 10 Mg Tablet, 10 MG PO DAILY, (Reported) Amoxicillin/Potassium Clav 1 Each Tablet, 1 EACH PO BID Prescribed by: MOUNIKA GARCIA on 03/22/21 1025 Apixaban 5 Mg Tablet, 5 MG PO BID Prescribed by: RALPH DELCID on 11/01/18 185 Cephalexin 500 Mg Capsule, 500 MG PO TID Prescribed by: EDISON CHAMBERLAIN on 04/03/21 1426 Cyclobenzaprine HCl 10 Mg Tablet, 10 MG PO Q8H PRN for SPASMS Prescribed by: ALPESH BARBOZA on 06/17/20 192 Diphenhydramine HCl 25 Mg Capsule, 25 MG PO Q4H PRN for throat irritation Prescribed by: EDISON CHAMBERLAIN on 05/11/20 1239 Diphenoxylate HCl/Atropine 1 Each Tablet, 1 EACH PO BID PRN for DIARRHEA Prescribed by: ORESTES VELASCO on 11/29/19 2309 Famotidine 40 Mg Tablet, 40 MG PO DAILY Prescribed by: EDISON CHAMBERLAIN on 05/11/20 1239 Fluconazole 100 Mg Tablet, 100 MG PO Q48H Prescribed by: MOIZ MARLEY on 08/28/19 1746 Fluconazole 100 Mg Tablet, 100 MG PO DAILY PRN Prescribed by: MOIZ MARLEY on 06/13/20 0017 Fluconazole 150 Mg Tablet, 150 MG PO ONCE Prescribed by: MOUNIKA GARCIA on 03/22/21 1025 Fluconazole 150 Mg Tablet, 150 MG PO ONCE Take after you complete the course of Cephalexin for UTI. Prescribed by: EDISON CHAMBERLAIN on 04/03/21 1426 Hydrocodone/Acetaminophen 1 Each Tablet, 1 TAB PO Q4H PRN for PAIN-MODERATE (5- 7) Prescribed by: MOIZ MARLEY on 03/24/21 1217 Hydroxyzine Pamoate 50 Mg Capsule, 50 MG PO Q6H PRN for ANXIETY Prescribed by: RODRIGO HILL on 08/03/20 0145 Ibuprofen 800 Mg Tablet, 800 MG PO Q8H PRN for PAIN Prescribed by: ALPESH BARBOZA on 06/17/20 192 Metoclopramide HCl 10 Mg Tablet, 10 MG PO TID PRN for NAUSEA/VOMITING Prescribed by: EDISON CHAMBERLAIN on 04/03/21 1426 Metoprolol Tartrate 50 Mg Tablet, 50 MG PO BID Prescribed by: FELECIA FORTUNE on 07/24/15 0841 Orphenadrine Citrate 100 Mg Tablet.er, 100 MG PO BID Prescribed by: RODRIGO HILL on 08/03/20 0145 Tramadol HCl 50 Mg Tablet, 100 MG PO Q6H PRN for PAIN Prescribed by: MOIZ MARLEY on 04/26/21 2313 Patient Home Medication List Home Medication List Reviewed: Yes Review of Systems Review of Systems Constitutional: no symptoms reported EENTM: throat swelling Respiratory: no symptoms reported Cardiovascular: no symptoms reported Gastrointestinal: nausea Musculoskeletal: no symptoms reported Skin: pruritus Psychiatric/Neurological: No Symptoms Reported All Other Systems Reviewed Negative Unless Noted: Yes Past Plpfsmk-Pcyijq-Ooexhp Hx Patient Social History Tobacco Use?: No Smoking Status: Former Smoker Substance use?: No Pt feels they are or have been: No Immunizations Up To Date Tetanus Booster (TDap): Unknown PED Vaccines UTD: Yes Seasonal Allergies Seasonal Allergies: No Past Medical History Surgeries: Yes (PACER/DEFIB 2014; DEFIB PLACED 05/10/19. 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 No Pertinent Family Hx SOCIAL HISTORY: -OCCASIONAL ETOH -HX OF IV METH USE, CLAIMS NO USE SINCE 2015 -QUIT SMOKING SEVERAL YEARS AGO Physical Exam Vital Signs Vital Signs - First Documented 05/28/21 07:21 Temp 36.3 Pulse 79 Resp 16 B/P (MAP) 146/92 (110) Pulse Ox 97 O2 Delivery Room Air Capillary Refill : Less Than 3 Seconds Height, Weight, BMI Height: 5'3.00" Weight: 234lbs. 0oz. 106.825534dp; 44.00 BMI Method:Stated General Appearance: No Apparent Distress, WD/WN HEENT: Normal ENT Inspection, Pharynx Normal Neck: Full Range of Motion, Supple Respiratory: Lungs Clear, No Respiratory Distress Cardiovascular: Regular Rate, Rhythm Gastrointestinal: Non Tender, Soft Extremity: Normal Capillary Refill Neurologic/Psychiatric: Alert, Oriented x3 Skin: Warm/Dry Progress/Results/Core Measures Suspected Sepsis SIRS Temperature: Pulse: 79 Respiratory Rate: 16 Blood Pressure 146 /92 Mean: 110 Results/Orders My Orders Orders - JOSE,MOUNIKA M DO Epinephrine 1 Mg Injection (Adrenalin I (05/28/21 07:30) Methylprednisolone Sod Succ (Solu-Medrol (05/28/21 07:30) Diphenhydramine Injection (Benadryl Inje (05/28/21 07:30) Famotidine Injection (Pepcid Injection) (05/28/21 07:30) Ondansetron Injection (Zofran Injectio (05/28/21 07:30) Medications Given in ED Current Medications Medications Dose Ordered Sig/Mikal Route Start Time Stop Time Status Last Admin Dose Admin Diphenhydramine HCl 25 mg ONCE ONCE IVP 05/28/21 07:30 05/28/21 07:31 DC 05/28/21 07:39 25 MG Epinephrine HCl 0.3 mg ONCE ONCE IM 05/28/21 07:30 05/28/21 07:31 DC 05/28/21 07:39 0.3 MG Famotidine 20 mg ONCE ONCE IVP 05/28/21 07:30 05/28/21 07:31 DC 05/28/21 07:39 20 MG Methylprednisolone Sodium Succinate 125 mg ONCE ONCE IVP 05/28/21 07:30 05/28/21 07:31 DC 05/28/21 07:39 125 MG Ondansetron HCl 4 mg ONCE ONCE IVP 05/28/21 07:30 05/28/21 07:31 DC 05/28/21 07:59 4 MG Vital Signs/I&O 05/28/21 07:21 Temp 36.3 Pulse 79 Resp 16 B/P (MAP) 146/92 (110) Pulse Ox 97 O2 Delivery Room Air Capillary Refill : Less Than 3 Seconds Blood Pressure Mean: 110 Progress Note : Progress Note Patient has a benign oral exam with no signs of tongue swelling or pharyngeal swelling. However given her subjective complaints of throat swelling I will treat her for an allergic reaction to penicillin with Solu-Medrol Benadryl Pepcid and and epinephrine. She says she did take 50 mg of Benadryl shortly prior to arrival. Patient feels much better after treatment here in the emergency department he and she feels that her tongue is smaller and she has no throat swelling. She has no difficulty swallowing or breathing here and is resting comfortably with no respiratory distress. Her repeat oral exam is benign and essentially the same as her initial exam. Given she appears well I will discharge her in stable condition told her to follow-up primary care provider within 4 to 5 days for recheck and come back to the ED sooner with any new worsening symptoms. I will prescribe her Benadryl Pepcid prednisone and epinephrine pen injectors. I instructed her how and when to use the epinephrine and told her it is only for anaphylaxis. Patient and family aware and agreeable with plan for discharge and verbalized understanding of the above instructions. Departure Impression Primary Impression: Allergic reaction to penicillin Qualified Codes: T36.0X5A - Adverse effect of penicillins, initial encounter Disposition: HOME, SELF-CARE Condition: Stable Departure-Patient Inst. Referrals: BROWN NGUYEN APRN (PCP) Primary Care Physician [facility]/CRISTIAN (Family) Primary Care Physician Patient Instructions: Drug Allergy Scripts Epinephrine (Epinephrine) 0.3 Mg/0.3 Ml Auto.injct 0.3 MG IJ PRN for anaphylaxis, #2 ML Prov: MOUNIKA GARCIA DO 05/28/21 Prednisone (Prednisone) 20 Mg Tab 40 MG PO DAILY, #8 TAB 0 Refills Prov: MOUNIKA GARCIA DO 05/28/21 Diphenhydramine HCl (Benadryl Allergy) 25 Mg Tablet 50 MG PO Q6H for 4 Days, TAB Prov: MOUNIKA GARCIA DO 05/28/21 Famotidine (Pepcid) 20 Mg Tablet 20 MG PO DAILY, #5 TAB Prov: MOUNIKA GARCIA DO 05/28/21 MOUNIKA GARCIA DO May 28, 2021 08:24
[2021-05-28] MEDS ORDERED: FAMO-119 PO (09:32)
[2021-05-28] MEDS ORDERED: PRD20T PO (09:32)
[2021-05-28] MEDS ORDERED: EPIN0.3P18 IJ (09:32)
[2021-05-28] MEDS ORDERED: DIPH25TA65 PO (09:32)
[2021-05-28 09:37] VITALS: BP 145/99
== END 2021-05-28 09:36 | disposition home or self-care (01) ==
LOC: EDUNIT# 07:13 → ER FS 07:15
DX: K14.8 Other diseases of tongue (principal); T36.0X5A Adverse effect of penicillins, initial encounter; E66.9 Obesity, unspecified; I10 Essential (primary) hypertension; F41.9 Anxiety disorder, unspecified; K21.9 Gastro-esophageal reflux disease without esophagitis; Z68.41 Body mass index [BMI] 40.0-44.9, adult; Z88.1 Allergy status to other antibiotic agents; Z87.891 Personal history of nicotine dependence; Z79.01 Long term (current) use of anticoagulants; Z79.899 Other long term (current) drug therapy

== ENCOUNTER 2021-06-24 00:42 | Emergency (ER) | payer MEDICARE, MEDICAID ==
[~2021-06-24] VITALS: Ht 160 cm; Wt 124.0 kg
[~2021-06-24 00:42] MED LIST changes: +DIPH25TA65 PO; +EPIN0.3P18 IJ; +FAMO-119 PO
[2021-06-24 00:50] VITALS: BP 156/109
--- NOTE | 2021-06-24 00:58 | ED General ---
General Stated Complaint: FLU+,PRESSURE IN HEAD History of Present Illness Date Seen by Provider: Jun 24, 2021 Time Seen by Provider: 00:53 Initial Comments Patient presenting to the emergency department for evaluation of a headache that has been going on for several days. She said she tested positive for the flu and was given an inhaler which she says that she continues to have a headache. She says the headache is a frontal pressure. She denies any fevers chills neck stiffness photophobia vision changes nausea vomiting unilateral weakness numbness or tingling. She says she feels that there is mucus in her sinuses and that it is not draining. She is asking for relief from the pressure and congestion. She is in no acute distress with normal vital signs. Allergies and Home Medications Allergies Coded Allergies: JIA Inhibitors (Verified Allergy, Severe, 05/22/19) ARB-Angiotensin Receptor Antagonist (Verified Allergy, Severe, 05/22/19) amoxicillin (Verified Allergy, Unknown, 05/28/21) baclofen (Unverified Allergy, Unknown, 05/22/19) ON H&P clavulanic acid (Verified Allergy, Unknown, 05/28/21) phenazopyridine (Unverified Allergy, Unknown, 05/22/19) ON H&P Home Medications Albuterol Sulfate 8 Gm Hfa.aer.ad, 2 PUFF INH Q6H PRN for SHORTNESS OF BREATH, (Reported) Amlodipine Besylate 10 Mg Tablet, 10 MG PO DAILY, (Reported) Amoxicillin/Potassium Clav 1 Each Tablet, 1 EACH PO BID Prescribed by: MOUNIKA GARCIA on 03/22/21 1025 Apixaban 5 Mg Tablet, 5 MG PO BID Prescribed by: RALPH DELCID on 11/01/18 1856 Cephalexin 500 Mg Capsule, 500 MG PO TID Prescribed by: EDISON CHAMBERLAIN on 04/03/21 1426 Cyclobenzaprine HCl 10 Mg Tablet, 10 MG PO Q8H PRN for SPASMS Prescribed by: ALPESH BARBOZA on 06/17/20 1923 Diphenhydramine HCl 25 Mg Capsule, 25 MG PO Q4H PRN for throat irritation Prescribed by: EDISON CHAMBERLAIN on 05/11/20 1239 Diphenhydramine HCl 25 Mg Tablet, 50 MG PO Q6H Prescribed by: MOUNIKA GARCIA on 05/28/21 0932 Diphenoxylate HCl/Atropine 1 Each Tablet, 1 EACH PO BID PRN for DIARRHEA Prescribed by: ORESTES VELASCO on 11/29/19 2309 Epinephrine 0.3 Mg/0.3 Ml Auto.injct, 0.3 MG IJ PRN Prescribed by: MOUNIKA GARCIA on 05/28/21 0932 Famotidine 40 Mg Tablet, 40 MG PO DAILY Prescribed by: EDISON CHAMBERLAIN on 05/11/20 1239 Famotidine 20 Mg Tablet, 20 MG PO DAILY Prescribed by: MOUNIKA GARCIA on 05/28/21 0932 Fluconazole 100 Mg Tablet, 100 MG PO Q48H Prescribed by: MOIZ MARLEY on 08/28/19 1746 Fluconazole 100 Mg Tablet, 100 MG PO DAILY PRN Prescribed by: MOIZ MARLEY on 06/13/20 0017 Fluconazole 150 Mg Tablet, 150 MG PO ONCE Prescribed by: MOUNIKA GARCIA on 03/22/21 1025 Fluconazole 150 Mg Tablet, 150 MG PO ONCE Take after you complete the course of Cephalexin for UTI. Prescribed by: EDISON CHAMBERLAIN on 04/03/21 1426 Hydrocodone/Acetaminophen 1 Each Tablet, 1 TAB PO Q4H PRN for PAIN-MODERATE (5- 7) Prescribed by: MOIZ MARLEY on 03/24/21 1217 Hydroxyzine Pamoate 50 Mg Capsule, 50 MG PO Q6H PRN for ANXIETY Prescribed by: RODRIGO HILL on 08/03/20 0145 Ibuprofen 800 Mg Tablet, 800 MG PO Q8H PRN for PAIN Prescribed by: ALPESH BARBOZA on 06/17/20 1923 Metoclopramide HCl 10 Mg Tablet, 10 MG PO TID PRN for NAUSEA/VOMITING Prescribed by: EDISON CHAMBERLAIN on 04/03/21 1426 Metoprolol Tartrate 50 Mg Tablet, 50 MG PO BID Prescribed by: FELECIA FORTUNE on 07/24/15 0841 Orphenadrine Citrate 100 Mg Tablet.er, 100 MG PO BID Prescribed by: RODRIGO HILL on 08/03/20 0145 Prednisone 20 Mg Tab, 40 MG PO DAILY Prescribed by: MOUNIKA GARCIA on 05/28/21 0932 Tramadol HCl 50 Mg Tablet, 100 MG PO Q6H PRN for PAIN Prescribed by: MOIZ MARLEY on 04/26/21 2313 Patient Home Medication List Home Medication List Reviewed: Yes Review of Systems Review of Systems Constitutional: no symptoms reported EENTM: nose congestion Respiratory: cough Cardiovascular: no symptoms reported Gastrointestinal: no symptoms reported Musculoskeletal: no symptoms reported Skin: no symptoms reported Psychiatric/Neurological: Headache All Other Systems Reviewed Negative Unless Noted: Yes Past Uvacvse-Onuwap-Bxblch Hx Immunizations Up To Date Tetanus Booster (TDap): Unknown PED Vaccines UTD: Yes Seasonal Allergies Seasonal Allergies: No Past Medical History Surgeries: Yes (PACER/DEFIB 2014; DEFIB PLACED 05/10/19. 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 No Pertinent Family Hx SOCIAL HISTORY: -OCCASIONAL ETOH -HX OF IV METH USE, CLAIMS NO USE SINCE 2016 -QUIT SMOKING SEVERAL YEARS AGO Physical Exam Vital Signs Capillary Refill : Height, Weight, BMI Height: 5'3.00" Weight: 234lbs. 0oz. 106.595958cr; 44.00 BMI Method:Stated General Appearance: No Apparent Distress, WD/WN HEENT: PERRL/EOMI Neck: Supple Respiratory: Lungs Clear, No Respiratory Distress Cardiovascular: Regular Rate, Rhythm Gastrointestinal: Non Tender, Soft Extremity: Normal Capillary Refill Neurologic/Psychiatric: Alert, Oriented x3, No Motor/Sensory Deficits Skin: Warm/Dry Progress/Results/Core Measures Suspected Sepsis SIRS Temperature: Pulse: Respiratory Rate: Blood Pressure / Mean: Results/Orders Vital Signs/I&O Capillary Refill : Progress Note : Progress Note Patient with complaints of congestion and head pressure but no red flag signs or symptoms on history or physical exam necessitating further work-up. She appears well with normal vital signs so I will discharge her with [place] and azelastine spray. I told to follow with her primary care provider within 2 days for recheck and come back to the ED sooner with worsening pain neurologic changes or other general concerns. Patient aware and agreeable with plan and verbalized understanding of the above instructions. Departure Impression Primary Impression: Headache Qualified Codes: R51.9 - Headache, unspecified Additional Impression: Sinus congestion Disposition: 01 HOME, SELF-CARE Condition: Stable Departure-Patient Inst. Referrals: BROWN NGUYEN APRN (PCP) Primary Care Physician [facility] (Family) Primary Care Physician Patient Instructions: Headache, Adult ED Scripts Hydrocodone/Acetaminophen (Hydrocodone-Acetamin 5-325 mg) 1 Each Tablet 1 TAB PO Q6H PRN for PAIN-MODERATE (5-7), #10 TAB Prov: MOUNIKA GARCIA DO 06/24/21 Azelastine HCl (Azelastine HCl) 137 Mcg/0.137 Ml [place].pump 137 MCG NS BID for 5 Days, #1 EACH Prov: MOUNIKA GARCIA DO 06/24/21 MOUNIKA GARCIA DO Jun 24, 2021 00:58
[2021-06-24] MEDS ORDERED: HYDROcodone/APAP 5 MG/325 MG (LORTAB) TAB PO ONE (01:00)
[2021-06-24] MEDS ORDERED: ACHD5005 PO (01:01)
[2021-06-24] MEDS ORDERED: AZEL137S11 NS (01:01)
== END 2021-06-24 01:15 | disposition home or self-care (01) ==
LOC: EDUNIT# 00:42 → ER FS 00:43
DX: J34.89 Other specified disorders of nose and nasal sinuses (principal); I10 Essential (primary) hypertension; I48.91 Unspecified atrial fibrillation; K21.9 Gastro-esophageal reflux disease without esophagitis; F41.9 Anxiety disorder, unspecified; Z95.810 Presence of automatic (implantable) cardiac defibrillator; Z79.01 Long term (current) use of anticoagulants; Z79.899 Other long term (current) drug therapy
CPT/HCPCS: 99283

== ENCOUNTER 2021-06-26 08:16 | Emergency (ER) | payer MEDICARE, MEDICAID ==
[~2021-06-26] VITALS: Ht 160 cm; Wt 105.7 kg
[~2021-06-26 08:16] MED LIST changes: +AZEL137S11 NS
[2021-06-26] MEDS ORDERED: fentaNYL INJ 100 MCG/2 ML AMP IVP STA (08:36)
[2021-06-26] MEDS ORDERED: ONDANSETRON 4 MG/2 ML (SDV) Z0FRAN IVP STA (08:36)
[2021-06-26] MEDS ORDERED: LORazepam INJ 2 MG/ML (ATIVAN) VIAL IVP STA (08:36)
[2021-06-26] MEDS ORDERED: NS IV 1000 ML 1,000 ML IV STA (08:36)
--- NOTE | 2021-06-26 08:50 | ED General ---
General Chief Complaint: Dizziness/Syncope Stated Complaint: VOMITING; SYNCOPE; CHEST CONGESTION Source of Information: Patient, Family History of Present Illness Date Seen by Provider: Jun 26, 2021 Time Seen by Provider: 08:17 Initial Comments 30 yo female presents with complaint of n/v overnight and then had a syncopal episode after vomiting this am. She was diagnosed with Influenza earlier this week. She has been sick since the beginning of the week. She has had frontal headache, sinus pressure, nasal congestion, cough. She reports n/v and a few episodes of diarrhea overnight. Her mother brought her to the ED because she had vomiting around 730 am and then fainted. Her Mom was able to quickly wake her back up. She then was given a dissolving nausea tablet of Zofran. She was still not feeling well and had complaint of chest tightness and cough so her Mom b rought her to the ED. She denies fever or chills. She denies chest pain currently. Associated Systoms: Chest Pain (tightness), Cough; No Diaphoresis, No Fever/Chills; Headaches (frontal), Loss of Appetite, Malaise, Nausea/Vomiting; No Rash, No Seizure; Shortness of Air, Syncope (fainted this morning after vomiting), Weakness (general) Allergies and Home Medications Allergies Coded Allergies: JIA Inhibitors (Verified Allergy, Severe, 05/22/19) ARB-Angiotensin Receptor Antagonist (Verified Allergy, Severe, 05/22/19) amoxicillin (Verified Allergy, Unknown, 05/28/21) baclofen (Unverified Allergy, Unknown, 05/22/19) ON H&P clavulanic acid (Verified Allergy, Unknown, 05/28/21) phenazopyridine (Unverified Allergy, Unknown, 05/22/19) ON H&P Home Medications Albuterol Sulfate 8 Gm Hfa.aer.ad, 2 PUFF INH Q6H PRN for SHORTNESS OF BREATH, (Reported) Amlodipine Besylate 10 Mg Tablet, 10 MG PO DAILY, (Reported) Apixaban 5 Mg Tablet, 5 MG PO BID Prescribed by: RALPH DELCID on 11/01/18 1856 Azelastine HCl 137 Mcg/0.137 Ml [place].pump, 137 MCG NS BID Prescribed by: MOUNIKA GARCIA on 06/24/21 0101 Diphenoxylate HCl/Atropine 1 Each Tablet, 1 EACH PO BID PRN for DIARRHEA Prescribed by: ORESTES VELASCO on 11/29/19 2309 Epinephrine 0.3 Mg/0.3 Ml Auto.injct, 0.3 MG IJ PRN Prescribed by: MOUNIKA GARCIA on 05/28/21 0932 Hydrocodone/Acetaminophen 1 Each Tablet, 1 TAB PO Q4H PRN for PAIN-MODERATE (5- 7) Prescribed by: MOIZ MARLEY on 03/24/21 1217 Metoprolol Tartrate 50 Mg Tablet, 50 MG PO BID Prescribed by: FELECIA FORTUNE on 07/24/15 0841 Ondansetron 4 Mg Tab.rapdis, 4 MG PO Q6H PRN for NAUSEA/VOMITING Prescribed by: EDISON CHAMBERLAIN on 06/26/21 0957 Patient Home Medication List Home Medication List Reviewed: Yes Review of Systems Review of Systems Constitutional: No chills, No diaphoresis, No fever; malaise, weakness EENTM: see HPI Respiratory: see HPI Cardiovascular: see HPI Gastrointestinal: see HPI Genitourinary: No dysuria Musculoskeletal: no symptoms reported Skin: No rash Psychiatric/Neurological: See HPI, Headache (frontal); Denies Seizure Hematologic/Lymphatic: Blood Clots (taking Eliquis) Past Yjrqwgw-Qzzomz-Ypwexn Hx Patient Social History Tobacco Use?: No Substance use?: No Alcohol Use?: No Immunizations Up To Date Tetanus Booster (TDap): Unknown PED Vaccines UTD: Yes Seasonal Allergies Seasonal Allergies: No Past Medical History Surgery/Hospitalization HX: hysterectomy Surgeries: Yes (PACER/DEFIB 2014; DEFIB PLACED 05/10/19. 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 No Pertinent Family Hx SOCIAL HISTORY: -OCCASIONAL ETOH -HX OF IV METH USE, CLAIMS NO USE SINCE 2015 -QUIT SMOKING SEVERAL YEARS AGO Physical Exam Vital Signs Vital Signs - First Documented 06/26/21 08:18 Temp 36.8 Pulse 77 Resp 18 B/P (MAP) 157/103 (121) Pulse Ox 96 O2 Delivery Room Air Capillary Refill : Height, Weight, BMI Height: 5'3.00" Weight: 234lbs. 0oz. 106.620886yu; 48.00 BMI Method:Stated General Appearance: Obese, Other (appears to not feel well) HEENT: PERRL/EOMI, TMs Normal, Pharynx Normal, Moist Mucous Membranes; No Photophobia; Other (nasal congestion, frontal sinus pressure) Neck: Full Range of Motion, Non Tender, Supple Respiratory: Chest Non Tender, Lungs Clear, Normal Breath Sounds, No Accessory Muscle Use, No Respiratory Distress Cardiovascular: Regular Rate, Rhythm, Normal Peripheral Pulses Gastrointestinal: Normal Bowel Sounds, No Pulsatile Mass, Non Tender, Soft Rectal: Deferred Extremity: Normal Capillary Refill, Normal Inspection, Normal Range of Motion, No Pedal Edema Neurologic/Psychiatric: Alert, Oriented x3, roll builder II-XII Norm as Tested Skin: Normal Color, Warm/Dry Progress/Results/Core Measures Suspected Sepsis SIRS Temperature: Pulse: Respiratory Rate: Laboratory Tests 06/26/21 08:40: White Blood Count 6.4 Blood Pressure / Mean: Laboratory Tests 06/26/21 08:40: Creatinine 1.97H, INR Comment 1.0, Platelet Count 419H, Total Bilirubin < 0.2 Results/Orders Lab Results Laboratory Tests Test 06/26/21 08:40 06/26/21 09:40 Range/Units White Blood Count 6.4 4.3-11.0 10^3/uL Red Blood Count 4.82 4.35-5.85 10^6/uL Hemoglobin 13.7 11.5-16.0 G/DL Hematocrit 42 35-52 % Mean Corpuscular Volume 87 80-99 FL Mean Corpuscular Hemoglobin 28 25-34 PG Mean Corpuscular Hemoglobin Concent 33 32-36 G/DL Red Cell Distribution Width 14.6 H 10.0-14.5 % Platelet Count 419 H 130-400 10^3/uL Mean Platelet Volume 8.8 7.4-10.4 FL Immature Granulocyte % (Auto) 0 % Neutrophils (%) (Auto) 37 L 42-75 % Lymphocytes (%) (Auto) 49 H 12-44 % Monocytes (%) (Auto) 11 0-12 % Eosinophils (%) (Auto) 3 0-10 % Basophils (%) (Auto) 1 0-10 % Neutrophils # (Auto) 2.3 1.8-7.8 X 10^3 Lymphocytes # (Auto) 3.1 1.0-4.0 X 10^3 Monocytes # (Auto) 0.7 0.0-1.0 X 10^3 Eosinophils # (Auto) 0.2 0.0-0.3 10^3/uL Basophils # (Auto) 0.1 0.0-0.1 10^3/uL Immature Granulocyte # (Auto) 0.0 0.0-0.1 10^3/uL Prothrombin Time 13.1 12.2-14.7 SEC INR Comment 1.0 0.8-1.4 Activated Partial Thromboplast Time 30 24-35 SEC Sodium Level 137 135-145 MMOL/L Potassium Level 4.1 3.6-5.0 MMOL/L Chloride Level 102 98-107 MMOL/L Carbon Dioxide Level 27 21-32 MMOL/L Anion Gap 8 5-14 MMOL/L Blood Urea Nitrogen 12 7-18 MG/DL Creatinine 1.97 H 0.60-1.30 MG/DL Estimat Glomerular Filtration Rate 36 BUN/Creatinine Ratio 6 Glucose Level 102 70-105 MG/DL Calcium Level 8.6 8.5-10.1 MG/DL Corrected Calcium 8.7 8.5-10.1 MG/DL Magnesium Level 1.9 1.6-2.4 MG/DL Total Bilirubin < 0.2 0.1-1.0 MG/DL Aspartate Amino Transf (AST/SGOT) 23 5-34 U/L Alanine Aminotransferase (ALT/SGPT) 19 0-55 U/L Alkaline Phosphatase 91 40-136 U/L Troponin I < 0.30 <0.30 NG/ML Pro-B-Type Natriuretic Peptide 357.9 H <75.0 PG/ML Total Protein 6.6 6.4-8.2 GM/DL Albumin 3.9 3.2-4.5 GM/DL Lipase 27 8-78 U/L Urine Color YELLOW Urine Clarity CLEAR Urine pH 6.5 5-9 Urine Specific [place] 1.020 1.016-1.022 Urine Protein 2+ H NEGATIVE Urine Glucose (UA) NEGATIVE NEGATIVE Urine Ketones NEGATIVE NEGATIVE Urine Nitrite NEGATIVE NEGATIVE Urine Bilirubin NEGATIVE NEGATIVE Urine Urobilinogen 0.2 < = 1.0 MG/DL Urine Leukocyte Esterase NEGATIVE NEGATIVE Urine RBC (Auto) TRACE-I NEGATIVE Urine RBC NONE /HPF Urine WBC NONE /HPF Urine Squamous Epithelial Cells 2-5 /HPF Urine Crystals NONE /LPF Urine Bacteria FEW H /HPF Urine Casts PRESENT /LPF Urine Hyaline Casts RARE /LPF Urine Mucus NEGATIVE /LPF Urine Culture Indicated NO My Orders Orders - EDISON CHAMBERLAIN MD Cbc With Automated Diff (06/26/21 08:36) Magnesium (06/26/21 08:36) Chest 1 View Ap/Pa Only (06/26/21 08:36) Ekg Tracing (06/26/21 08:36) Comprehensive Metabolic Panel (06/26/21 08:36) Protime With Inr (06/26/21 08:36) Partial Thromboplastin Time (06/26/21 08:36) Monitor-Rhythm Ecg Trace Only (06/26/21 08:36) Ed Iv/Invasive Line Start (06/26/21 08:36) Lipase (06/26/21 08:36) Troponin I Fs (06/26/21 08:36) Probnp Fs (06/26/21 08:36) Ct Head Wo (06/26/21 08:36) Ns Iv 1000 Ml (Sodium Chloride 0.9%) (06/26/21 08:36) Ondansetron Injection (Zofran Injectio (06/26/21 08:36) Ua Culture If Indicated (06/26/21 08:36) Fentanyl Inj (Sublimaze Injection) (06/26/21 08:36) Dexamethasone Injection (Decadron Inje (06/26/21 08:36) Lorazepam Injection (Ativan Injection) (06/26/21 08:36) Vital Signs/I&O 06/26/21 06/26/21 08:18 10:00 Temp 36.8 Pulse 77 68 Resp 18 18 B/P (MAP) 157/103 (121) 144/90 Pulse Ox 96 97 O2 Delivery Room Air Room Air Capillary Refill : Progress Note #1: Progress Note check labs, urine, CT head for her frontal sinus pressure and fainting episode, chest xray for cough and congestion, lipase for n/v. Give IVF for hydration, Fentanyl for pain, Zofran for nausea, Ativan for anxiety and nausea. Differential diagnosis includes dehydration, sinusitis, gastroenteritis, colitis, diverticulitis, viral syndrome, pneumonia, intracranial hemorrhage Progress Note #2: Time: 09:[address] head shows some mild paranasal sinus congestion right more than left. Otherwise no acute process. CXR stable with cardiomegaly but no infiltrate or effusion. Progress Note #3: Time: 09:48 Progress Note Labs show CBC, Coags are stable and Chemistry has no acute significant abnormality. She has chronic stable increase in her Cr to 1.97. Troponin is negative at <0.3. UA sent to lab and was very clear and dilute. Anticipate discharge to home with symptomatic care and treat for nausea and she asked about medicine for sleep. Advised to try Benadryl to help with sleep so it would also help with congestion and not have effect on blood pressure or interfere with other meds. Progress Note #4: Time: 09:55 Progress Note UA does not show sign of infection. Appears stable from prior tests with some chronic proteinuria.Discharge with a few Zofran and instruction to use Benadryl if needed. ECG Initial ECG Impression Date: Jun 26, 2021 Initial ECG Impression Time: 09:10 Initial ECG Rate: 65 Initial ECG Rhythm: Normal Sinus Initial ECG Comparisson: Unchanged Comment Normal sinus rhythm with a heart rate of 65 bpm. Prolonged ME interval of [address] elevation. Prolonged QT interval of 485 ms and a QTc interval 505 ms. Appears similar to prior tracings in the system. Diagnostic Imaging Diagonstic Imaging: Xray Plain Films/CT/US/NM/MRI: chest Comments NAME: SAL PRIEST MED REC#: [id number] PT STATUS: REG ER : 1990 PHYSICIAN: EDISON CHAMBERLAIN MD ADMIT DATE: 06/26/21/ER FS Draft Date of Exam:06/26/21 CHEST 1 VIEW AP/PA ONLY Clinical indications: Patient with chest pain, headache and flu positive. Patient has chest tightness. Exam: Portable chest x-ray upright view. Comparisons: Chest x-ray dated 11/08/2020. Findings: Lungs/pleura: Lungs are clear. There is no pneumothorax. There is no pleural effusion. Mediastinum: Unremarkable. Pulmonary vasculature: Unremarkable. Heart: Stable mild cardiomegaly. Cardiac pacemaker/AICD again seen overlying left chest. Bones/extrathoracic soft tissue: Unremarkable. Impression: 1: Stable chest x-ray exam with no interval radiographic evidence of acute cardiopulmonary process. 2: Stable cardiomegaly with no significant pulmonary vascular congestion. Report was faxed to [facility] by rosa at 9:15AM. Dictated on workstation # [id number] Dict: 06/26/21912 Trans: 06/26/21914 ROSA [id number] Interpreted by: NIYAH GABRIEL MD Electronically signed by: Reviewed: Reviewed by Me Diagonstic Imaging: CT Plain Films/CT/US/NM/MRI: head Comments NAME: SAL PRIEST [facility] REC#: [id number] PT STATUS: REG ER : 1990 PHYSICIAN: EDISON CHAMBERLAIN MD ADMIT DATE: 06/26/21/ER FS Draft Date of Exam:06/26/21 CT HEAD WO INDICATION: Headache. Syncope. TECHNIQUE: Routine non contrast-enhanced axial images were obtained from the skull base to the vertex. Auto Exposure Controls were utilized during the CT exam to meet ALARA standards for radiation dose reduction COMPARISON: None. FINDINGS: The ventricles and cortical sulci are stable in size and contour. There is no midline shift or mass-effect. No acute intra-axial hemorrhage is seen. There are no abnormal areas of increased or decreased density to suggest acute hemorrhage or edema. No extra-axial masses or collections are present. The bony calvarium is intact. The visualized paranasal sinuses show moderate mucosal thickening on the right. The mastoid air cells are clear. IMPRESSION: 1. No acute intracranial abnormality. No CT evidence of mass, acute infarct or intracranial hemorrhage. Dictated on workstation # [id number] Dict: 06/26/21908 Trans: 06/26/21913 [id number] Interpreted by: FREYA DORAN MD Electronically signed by: Reviewed: Reviewed by Me Departure Impression Primary Impression: Viral syndrome Additional Impressions: Influenza Congestion of paranasal sinus Vasovagal syncope Nausea vomiting and diarrhea Disposition: 01 HOME, SELF-CARE Condition: Stable Departure-Patient Inst. Decision time for Depature: 09:57 Referrals: BROWN NGUYEN APRN (PCP) Primary Care Physician [facility] (Family) Primary Care Physician Patient Instructions: Fainting, Adult ED, Flu, Adult ED, Nausea and Vomiting, Adult ED, Diarrhea, Adult ED Add. Discharge Instructions: Try to keep sipping on fluids and stay well hydrated. You could try Benadryl (Diphenhydramine) 25 to 50 mg every 6 hours as needed for congestion and to help with sleep. Check with clinic for continued concerns All discharge instructions reviewed with patient and/or family. Voiced understanding. Scripts Ondansetron (Ondansetron Odt) 4 Mg Tab.rapdis 4 MG PO Q6H PRN for NAUSEA/VOMITING for 3 Days, #12 TAB 0 Refills Prov: EDISON CHAMBERLAIN MD 06/26/21 EDISON CHAMBERLAIN MD Jun 26, 2021 08:50
--- NOTE | 2021-06-26 09:14 | Diagnostic Imaging Report ---
INDICATION: Headache. Syncope. TECHNIQUE: Routine non contrast-enhanced axial images were obtained from the skull base to the vertex. Auto Exposure Controls were utilized during the CT exam to meet ALARA standards for radiation dose reduction COMPARISON: None. FINDINGS: The ventricles and cortical sulci are stable in size and contour. There is no midline shift or mass-effect. No acute intra-axial hemorrhage is seen. There are no abnormal areas of increased or decreased density to suggest acute hemorrhage or edema. No extra-axial masses or collections are present. The bony calvarium is intact. The visualized paranasal sinuses show moderate mucosal thickening on the right. The mastoid air cells are clear. IMPRESSION: 1. No acute intracranial abnormality. No CT evidence of mass, acute infarct or intracranial hemorrhage. Dictated by: Dictated on workstation # [id number]
--- NOTE | 2021-06-26 09:16 | Diagnostic Imaging Report ---
Clinical indications: Patient with chest pain, headache and flu positive. Patient has chest tightness. Exam: Portable chest x-ray upright view. Comparisons: Chest x-ray dated 11/08/2020. Findings: Lungs/pleura: Lungs are clear. There is no pneumothorax. There is no pleural effusion. Mediastinum: Unremarkable. Pulmonary vasculature: Unremarkable. Heart: Stable mild cardiomegaly. Cardiac pacemaker/AICD again seen overlying left chest. Bones/extrathoracic soft tissue: Unremarkable. Impression: 1: Stable chest x-ray exam with no interval radiographic evidence of acute cardiopulmonary process. 2: Stable cardiomegaly with no significant pulmonary vascular congestion. Report was faxed to [facility] by janine at 9:15AM. Dictated by: Dictated on workstation # [id number]
[2021-06-26 09:18] LABS: HEMATOCRIT 42 % (35-52); HEMOGLOBIN 13.7 G/DL (11.5-16.0); MEAN CORPUSCULAR HEMOGLOBIN 28 PG (25-34); MEAN CORPUSCULAR HGB CONC 33 G/DL (32-36); MEAN CORPUSCULAR VOLUME 87 FL (80-99); MEAN PLATELET VOLUME 8.8 FL (7.4-10.4); PLATELET COUNT 419 10^3/uL (130-400); WHITE BLOOD COUNT 6.4 10^3/uL (4.3-11.0)
[2021-06-26 09:19] LABS: BASOPHILS % (AUTO) 1 % (0-10); EOSINOPHILS % (AUTO) 3 % (0-10); LYMPHOCYTES # (AUTO) 3.1 X 10^3 (1.0-4.0); LYMPHOCYTES % (AUTO) 49 % (12-44); MONOCYTES # (AUTO) 0.7 X 10^3 (0.0-1.0); MONOCYTES % (AUTO) 11 % (0-12); NEUTROPHILS # (AUTO) 2.3 X 10^3 (1.8-7.8); NEUTROPHILS % (AUTO) 37 % (42-75)
[2021-06-26 09:20] LABS: BASOPHILS # (AUTO) 0.1 10^3/uL (0.0-0.1); EOSINOPHILS # (AUTO) 0.2 10^3/uL (0.0-0.3)
[2021-06-26 09:25] LABS: PROTHROMBIN TIME PATIENT 13.1 SEC (12.2-14.7)
[2021-06-26 09:28] LABS: ALKALINE PHOSPHATASE 91 U/L (40-136); SODIUM 137 MMOL/L (135-145)
[2021-06-26 09:29] LABS: CARBON DIOXIDE 27 MMOL/L (21-32); CHLORIDE 102 MMOL/L (98-107); POTASSIUM 4.1 MMOL/L (3.6-5.0)
[2021-06-26 09:30] LABS: BUN/CREATININE RATIO 6; CALCIUM 8.6 MG/DL (8.5-10.1); CREATININE SERUM 1.97 MG/DL (0.60-1.30); GFR ESTIMATED 36; GLUCOSE 102 MG/DL (70-105)
[2021-06-26 09:31] LABS: ALANINE AMINOTRANSFERASE 19 U/L (0-55); BILIRUBIN,TOTAL < 0.2 MG/DL (0.1-1.0); MAGNESIUM 1.9 MG/DL (1.6-2.4)
[2021-06-26 09:32] LABS: ALBUMIN 3.9 GM/DL (3.2-4.5); LIPASE 27 U/L (8-78); TOTAL PROTEIN 6.6 GM/DL (6.4-8.2)
[2021-06-26 09:45] LABS: BILIRUBIN,URINE NEGATIVE (NEGATIVE); CLARITY,URINE CLEAR; COLOR,URINE YELLOW; GLUCOSE, URINE (UA) NEGATIVE (NEGATIVE); KETONES,URINE NEGATIVE (NEGATIVE); LEUKOCYTE ESTERASE ,URINE NEGATIVE (NEGATIVE); NITRITE,URINE NEGATIVE (NEGATIVE); PH,URINE 6.5 (5-9); PROTEIN,URINE 2+ (NEGATIVE)
[2021-06-26 09:53] LABS: BACTERIA,URINE FEW /HPF; HYALINE CASTS, URINE RARE /LPF
[2021-06-26] MEDS ORDERED: ONDA4TAB11 PO (09:57)
[2021-06-26 10:00] VITALS: BP 144/90
== END 2021-06-26 10:00 | disposition home or self-care (01) ==
LOC: EDUNIT# 08:16 → ER FS 08:18
DX: B34.9 Viral infection, unspecified (principal); J11.1 Influenza due to unidentified influenza virus with other respiratory manifestations; R09.81 Nasal congestion; R55 Syncope and collapse; E66.9 Obesity, unspecified; I10 Essential (primary) hypertension; Z68.42 Body mass index [BMI] 45.0-49.9, adult; Z87.820 Personal history of traumatic brain injury; Z79.01 Long term (current) use of anticoagulants
CPT/HCPCS: 36415; 70450; 71045; 80053; 81000; 83690; 83735; 83880; 84484; 85025; 85610; 85730; 93005; 93041

== ENCOUNTER 2021-06-29 07:46 | Emergency (ER) | payer MEDICARE, MEDICAID ==
[~2021-06-29] VITALS: Ht 160 cm; Wt 106.3 kg
[~2021-06-29 07:46] MED LIST changes: +ONDA4TAB11 PO
--- NOTE | 2021-06-29 08:03 | ED Cough/URI ---
General Stated Complaint: CHEST CONGESTION History of Present Illness Date Seen by Provider: Jun 29, 2021 Time Seen by Provider: 07:58 Initial Comments 30-year-old female presents with some generalized malaise, body aches and not feeling well. Patient was diagnosed with influenza 1 week ago. She reports that she is continuing to feel crampy. She has some minor chest congestion, along with headache. Patient was seen here 3 days ago with similar symptoms. Patient reports some chills but no fever. Patient reports she was tested negative for Covid at that time. Allergies and Home Medications Allergies Coded Allergies: JIA Inhibitors (Verified Allergy, Severe, 05/22/19) ARB-Angiotensin Receptor Antagonist (Verified Allergy, Severe, 05/22/19) amoxicillin (Verified Allergy, Unknown, 05/28/21) baclofen (Unverified Allergy, Unknown, 05/22/19) ON H&P clavulanic acid (Verified Allergy, Unknown, 05/28/21) phenazopyridine (Unverified Allergy, Unknown, 05/22/19) ON H&P Home Medications Albuterol Sulfate 8 Gm Hfa.aer.ad, 2 PUFF INH Q6H PRN for SHORTNESS OF BREATH, (Reported) Last Action: Last Taken Edited Amlodipine Besylate 10 Mg Tablet, 10 MG PO DAILY, (Reported) Last Action: Last Taken Edited Apixaban 5 Mg Tablet, 5 MG PO BID Prescribed by: RALPH DELCID on 11/01/18 1856 Last Action: Last Taken Edited Azelastine HCl 137 Mcg/0.137 Ml Kellogg.pump, 137 MCG NS BID Prescribed by: MOUNIKA GARCIA on 06/24/21 0101 Last Action: Last Taken Edited Diphenoxylate HCl/Atropine 1 Each Tablet, 1 EACH PO BID PRN for DIARRHEA Prescribed by: ORESTES VELASCO on 11/29/19 2309 Last Action: Last Taken Edited Epinephrine 0.3 Mg/0.3 Ml Auto.injct, 0.3 MG IJ PRN Prescribed by: MOUNIKA GARCIA on 05/28/21 0932 Last Action: Last Taken Edited Hydrocodone/Acetaminophen 1 Each Tablet, 1 TAB PO Q4H PRN for PAIN-MODERATE (5- 7) Prescribed by: MOIZ MARLEY on 03/24/21 1217 Last Action: Last Taken Edited Metoprolol Tartrate 50 Mg Tablet, 50 MG PO BID Prescribed by: FELECIA FORTUNE on 07/24/15 0841 Last Action: Last Taken Edited Ondansetron 4 Mg Tab.rapdis, 4 MG PO Q6H PRN for NAUSEA/VOMITING Prescribed by: EDISON CHAMBERLAIN on 06/26/21 0957 Last Action: Last Taken Edited Patient Home Medication List Home Medication List Reviewed: Yes Review of Systems Review of Systems Constitutional: chills; No fever; malaise, weakness EENTM: no symptoms reported Respiratory: see HPI Cardiovascular: no symptoms reported Gastrointestinal: see HPI, nausea Genitourinary: no symptoms reported Musculoskeletal: see HPI Skin: no symptoms reported Psychiatric/Neurological: No Symptoms Reported Hematologic/Lymphatic: No Symptoms Reported Immunological/Allergic: no symptoms reported Past Zwfmnii-Jummjc-Zvfwko Hx Immunizations Up To Date Tetanus Booster (TDap): Unknown PED Vaccines UTD: Yes Seasonal Allergies Seasonal Allergies: No Past Medical History Surgery/Hospitalization HX: Hx HTN, Stroke, CHF, Hysterectomy, choleycystectomy Surgeries: Yes (PACER/DEFIB 2014; DEFIB PLACED 05/10/19. 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 No Pertinent Family Hx SOCIAL HISTORY: -OCCASIONAL ETOH -HX OF IV METH USE, CLAIMS NO USE SINCE 2015 -QUIT SMOKING SEVERAL YEARS AGO Physical Exam Vital Signs - First Documented Capillary Refill : Height: 5'3.00" Weight: 234lbs. 0oz. 106.480025di; 41.00 BMI Method:Stated General Appearance: WD/WN, no apparent distress HEENT: pharynx normal Neck: full range of motion, supple Respiratory: lungs clear, normal breath sounds Cardiovascular: normal peripheral pulses, regular rate, rhythm Gastrointestinal: non tender, soft Extremities: normal range of motion, non-tender Neurologic/Psychiatric: alert, normal mood/affect Skin: normal color, warm/dry Progress/Results/Core Measures Suspected Sepsis SIRS Temperature: Pulse: Respiratory Rate: Laboratory Tests 06/29/21 08:10: White Blood Count 12.2H Blood Pressure / Mean: Laboratory Tests 06/29/21 08:10: Creatinine 1.83H, Platelet Count 406H, Total Bilirubin < 0.2 Results/Orders Lab Results Laboratory Tests Test 06/29/21 08:10 06/29/21 08:19 Range/Units White Blood Count 12.2 H 4.3-11.0 10^3/uL Red Blood Count 4.73 4.35-5.85 10^6/uL Hemoglobin 13.3 11.5-16.0 G/DL Hematocrit 41 35-52 % Mean Corpuscular Volume 87 80-99 FL Mean Corpuscular Hemoglobin 28 25-34 PG Mean Corpuscular Hemoglobin Concent 32 32-36 G/DL Red Cell Distribution Width 15.0 H 10.0-14.5 % Platelet Count 406 H 130-400 10^3/uL Mean Platelet Volume 8.4 7.4-10.4 FL Immature Granulocyte % (Auto) 1 % Neutrophils (%) (Auto) 44 42-75 % Lymphocytes (%) (Auto) 48 H 12-44 % Monocytes (%) (Auto) 6 0-12 % Eosinophils (%) (Auto) 1 0-10 % Basophils (%) (Auto) 1 0-10 % Neutrophils # (Auto) 5.3 1.8-7.8 X 10^3 Lymphocytes # (Auto) 5.9 H 1.0-4.0 X 10^3 Monocytes # (Auto) 0.7 0.0-1.0 X 10^3 Eosinophils # (Auto) 0.1 0.0-0.3 10^3/uL Basophils # (Auto) 0.1 0.0-0.1 10^3/uL Immature Granulocyte # (Auto) 0.1 0.0-0.1 10^3/uL Sodium Level 138 135-145 MMOL/L Potassium Level 3.8 3.6-5.0 MMOL/L Chloride Level 102 98-107 MMOL/L Carbon Dioxide Level 26 21-32 MMOL/L Anion Gap 10 5-14 MMOL/L Blood Urea Nitrogen 14 7-18 MG/DL Creatinine 1.83 H 0.60-1.30 MG/DL Estimat Glomerular Filtration Rate 39 BUN/Creatinine Ratio 8 Glucose Level 108 H 70-105 MG/DL Calcium Level 8.6 8.5-10.1 MG/DL Corrected Calcium 8.8 8.5-10.1 MG/DL Total Bilirubin < 0.2 0.1-1.0 MG/DL Aspartate Amino Transf (AST/SGOT) 20 5-34 U/L Alanine Aminotransferase (ALT/SGPT) 25 0-55 U/L Alkaline Phosphatase 77 40-136 U/L Total Protein 6.6 6.4-8.2 GM/DL Albumin 3.7 3.2-4.5 GM/DL SARS-CoV-2 RNA (RT-PCR) Not Detected Not Detecte My Orders Orders - VINITA RICHARD DO Cbc With Automated Diff (06/29/21 08:05) Comprehensive Metabolic Panel (06/29/21 08:05) Chest 1 View Ap/Pa Only (06/29/21 08:05) Covid 19 Inhouse Test (06/29/21 08:05) Ondansetron Injection (Zofran Injectio (06/29/21 08:15) Lactated Ringers (Lr 1000 Ml Iv Solution (06/29/21 08:05) Medications Given in ED Current Medications Medications Dose Ordered Sig/Mikal Route Start Time Stop Time Status Last Admin Dose Admin Ondansetron HCl 4 mg ONCE ONCE IVP 06/29/21 08:15 06/29/21 08:16 DC 06/29/21 08:22 4 MG Vital Signs/I&O 06/29/21 06/29/21 06/29/21 08:00 08:00 09:30 Temp 36.0 36.0 Pulse 79 65 Resp 20 20 B/P (MAP) 132/97 (109) 127/90 (109) Pulse Ox 96 98 O2 Delivery Room Air Room Air Room Air Capillary Refill : Progress Note : Progress Note Patient with influenza A. She was diagnosed with this positive test on 7. We did call and discussed with urgent care. Patient with stable vital signs labs a nd x-ray. Discussed supportive care with patient she will be discharged home and should follow-up with her primary care provider as needed Diagnostic Imaging Diagonstic Imaging: Xray Plain Films/CT/US/NM/MRI: chest Comments ate of Exam:06/29/21 CHEST 1 VIEW AP/PA ONLY INDICATION: Chest congestion. Comparison made with prior examination of 06/26/2021. FINDINGS: The heart size is normal. Lungs are clear. No pleural effusion or pneumothorax. Mediastinum is unremarkable. Pacemaker overlies left hemithorax. IMPRESSION: No acute cardiopulmonary abnormality. Reviewed: Reviewed by Me, Reviewed/Discussed Departure Impression Primary Impression: Influenza Disposition: HOME, SELF-CARE Condition: Stable Departure-Patient Inst. Referrals: BROWN NGUYEN APRN (PCP) Primary Care Physician [facility] (Family) Primary Care Physician Patient Instructions: Flu, Adult ED Add. Discharge Instructions: Drink plenty of fluids and get plenty of rest Follow-up with your primary care provider in 3-4 days for recheck of today's symptoms if not improving or if symptoms continue to worsen VINITA RICHARD DO Jun 29, 2021 08:03
[2021-06-29] MEDS ORDERED: LACTATED RINGERS 1,000 ML IV STA (08:05)
[2021-06-29] MEDS ORDERED: ONDANSETRON 4 MG/2 ML (SDV) Z0FRAN IVP ONE (08:15)
[2021-06-29 08:23] LABS: HEMATOCRIT 41 % (35-52); HEMOGLOBIN 13.3 G/DL (11.5-16.0); MEAN CORPUSCULAR HEMOGLOBIN 28 PG (25-34); MEAN CORPUSCULAR HGB CONC 32 G/DL (32-36); MEAN CORPUSCULAR VOLUME 87 FL (80-99); MEAN PLATELET VOLUME 8.4 FL (7.4-10.4); PLATELET COUNT 406 10^3/uL (130-400); WHITE BLOOD COUNT 12.2 10^3/uL (4.3-11.0)
[2021-06-29 08:24] LABS: BASOPHILS # (AUTO) 0.1 10^3/uL (0.0-0.1); BASOPHILS % (AUTO) 1 % (0-10); EOSINOPHILS # (AUTO) 0.1 10^3/uL (0.0-0.3); EOSINOPHILS % (AUTO) 1 % (0-10); LYMPHOCYTES # (AUTO) 5.9 X 10^3 (1.0-4.0); LYMPHOCYTES % (AUTO) 48 % (12-44); MONOCYTES # (AUTO) 0.7 X 10^3 (0.0-1.0); MONOCYTES % (AUTO) 6 % (0-12); NEUTROPHILS # (AUTO) 5.3 X 10^3 (1.8-7.8); NEUTROPHILS % (AUTO) 44 % (42-75)
--- NOTE | 2021-06-29 08:25 | Diagnostic Imaging Report ---
INDICATION: Chest congestion. Comparison made with prior examination of 06/26/2021. FINDINGS: The heart size is normal. Lungs are clear. No pleural effusion or pneumothorax. Mediastinum is unremarkable. Pacemaker overlies left hemithorax. IMPRESSION: No acute cardiopulmonary abnormality. Dictated by: Dictated on workstation # [id number]
[2021-06-29 08:54] LABS: CARBON DIOXIDE 26 MMOL/L (21-32); CHLORIDE 102 MMOL/L (98-107); POTASSIUM 3.8 MMOL/L (3.6-5.0); SODIUM 138 MMOL/L (135-145)
[2021-06-29 08:55] LABS: ALANINE AMINOTRANSFERASE 25 U/L (0-55); ALKALINE PHOSPHATASE 77 U/L (40-136); BILIRUBIN,TOTAL < 0.2 MG/DL (0.1-1.0); BUN/CREATININE RATIO 8; CALCIUM 8.6 MG/DL (8.5-10.1); CREATININE SERUM 1.83 MG/DL (0.60-1.30); GFR ESTIMATED 39; GLUCOSE 108 MG/DL (70-105); TOTAL PROTEIN 6.6 GM/DL (6.4-8.2)
[2021-06-29 08:56] LABS: ALBUMIN 3.7 GM/DL (3.2-4.5)
[2021-06-29 09:30] VITALS: BP 127/90
== END 2021-06-29 09:30 | disposition home or self-care (01) ==
LOC: EDUNIT# 07:46 → ER FS 07:47
DX: J11.1 Influenza due to unidentified influenza virus with other respiratory manifestations (principal); E66.9 Obesity, unspecified; I11.0 Hypertensive heart disease with heart failure; I50.9 Heart failure, unspecified; Z68.41 Body mass index [BMI] 40.0-44.9, adult; Z20.822 Contact with and (suspected) exposure to COVID-19; Z86.73 Personal history of transient ischemic attack (TIA), and cerebral infarction without residual deficits; Z79.01 Long term (current) use of anticoagulants; Z79.899 Other long term (current) drug therapy
CPT/HCPCS: 36415; 71045; 80053; 85025; 87636

== ENCOUNTER 2021-08-21 01:39 | Emergency (ER) | payer MEDICARE, MEDICAID ==
[~2021-08-21] VITALS: Ht 160 cm; Wt 106.8 kg
--- NOTE | 2021-08-21 01:54 | ED Chest Pain ---
General Stated Complaint: CHEST PAIN Source: patient Exam Limitations: no limitations History of Present Illness Date Seen by Provider: Aug 21, 2021 Time Seen by Provider: 01:49 Initial Comments 30-year-old female presents with left-sided chest pain beginning 20 minutes prior to arrival. No associated nausea or diaphoresis. No recent illness, fever chills or cough. Allergies and Home Medications Allergies Coded Allergies: JIA Inhibitors (Verified Allergy, Severe, 05/22/19) ARB-Angiotensin Receptor Antagonist (Verified Allergy, Severe, 05/22/19) amoxicillin (Verified Allergy, Unknown, 05/28/21) baclofen (Unverified Allergy, Unknown, 05/22/19) ON H&P clavulanic acid (Verified Allergy, Unknown, 05/28/21) phenazopyridine (Unverified Allergy, Unknown, 05/22/19) ON H&P Patient Home Medication List Home Medication List Reviewed: Yes Albuterol Sulfate (Rx-Proair) 8 Gm Hfa.aer.ad, 2 PUFF INH Q6H PRN for SHORTNESS OF BREATH, (Reported) Entered as Reported by: BROWN SCHULER on 03/21/15 1434 Amlodipine Besylate (Amlodipine Besylate) 10 Mg Tablet, 10 MG PO DAILY, (Repor valencia) Entered as Reported by: TUNG HELTON on 07/23/15 0737 Apixaban (Eliquis) 5 Mg Tablet, 5 MG PO BID Prescribed by: RALPH DELCID on 11/01/18 1856 Azelastine HCl (Azelastine HCl) 137 Mcg/0.137 Ml Bendena.pump, 137 MCG NS BID Prescribed by: MOUNIKA GARCIA on 06/24/21 0101 Biotin (Biotin) 5,000 Mcg Tab.rapdis, (Reported) Entered as Reported by: MIKY CAMPBELL on 05/22/19 2117 Cyclobenzaprine HCl (Cyclobenzaprine HCl) 10 Mg Tablet, 10 MG PO Q8H PRN for SPASMS Prescribed by: ALPESH BARBOZA on 08/21/21 0435 Diphenoxylate HCl/Atropine (Lomotil 2.5-0.025 mg Tablet) 1 Each Tablet, 1 EACH PO BID PRN for DIARRHEA Prescribed by: ORESTES VELASCO on 11/29/19 2309 Epinephrine (Epinephrine) 0.3 Mg/0.3 Ml Auto.injct, 0.3 MG IJ PRN Prescribed by: MOUNIKA GARCIA on 05/28/21 0932 Famotidine (Famotidine) 20 Mg Tablet, (Reported) Entered as Reported by: TALISHA CELIS on 08/05/181810 Hydrocodone/Acetaminophen (Hydrocodone-Acetamin 5-325 mg) 1 Each Tablet, 1 TAB PO Q4H PRN for PAIN-MODERATE (5-7) Prescribed by: MOIZ MARLEY on 03/24/21 1217 Metoprolol Tartrate (Metoprolol Tartrate) 50 Mg Tablet, 50 MG PO BID Prescribed by: FELECIA FORTUNE on 07/24/15 0841 Ondansetron (Ondansetron Odt) 4 Mg Tab.rapdis, 4 MG PO Q6H PRN for NAUSEA/VOMITING Prescribed by: EDISON CHAMBERLAIN on 06/26/21 0957 Ropinirole HCl (Ropinirole HCl) 0.5 Mg Tablet, (Reported) Entered as Reported by: TALISHA CELIS on 08/05/181809 Sacubitril/Valsartan (Entresto 24 mg-26 mg Tablet) 1 Each Tablet, (Reported) Entered as Reported by: TALISHA CELIS on 08/05/181809 [Clonidine Hydrochloride .2 Mg ] , (Reported) Entered as Reported by: MIKY CAMPBELL on 05/22/192115 [Meloxicam 15 Mg Tabs] , (Reported) Entered as Reported by: MIKY CAMPBELL on 05/22/192115 [Metoprolol Tartrate 100 Mg Tab] , (Reported) Entered as Reported by: MIKY CAMPBELL on 05/22/191929 [Olanzapine 10 Mg Tabs] , (Reported) Entered as Reported by: MIKY CAMPBELL on 05/22/192115 [Oxcarbazepine 300 Mg Tabs] , (Reported) Entered as Reported by: MIKY CAMPBELL on 05/22/192115 Review of Systems Review of Systems Constitutional: No fever, No malaise EENTM: No Symptoms Reported Respiratory: Denies Cough, Denies Shortness of Air Cardiovascular: Chest Pain; Denies Edema, Denies Lightheadedness, Denies Pal pitations, Denies Syncope Gastrointestinal: Denies Constipated, Denies Diarrhea, Denies Nausea, Denies Vomiting Musculoskeletal: back pain (upper left shouldee area); No neck pain Skin: No change in color, No lesions, No rash Psychiatric/Neurological: Denies Headache, Denies Numbness Past Cenmvcu-Aunqcu-Lpjhqa Hx Patient Social History Tobacco Use?: No Immunizations Up To Date Tetanus Booster (TDap): Unknown PED Vaccines UTD: Yes Seasonal Allergies Seasonal Allergies: No Past Medical History Surgery/Hospitalization HX: Hx HTN, Stroke, CHF, Hysterectomy, choleycystectomy Surgeries: Yes (PACER/DEFIB 2014; DEFIB PLACED 05/10/19. 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 No Pertinent Family Hx SOCIAL HISTORY: -OCCASIONAL ETOH -HX OF IV METH USE, CLAIMS NO USE SINCE 2015 -QUIT SMOKING SEVERAL YEARS AGO Physical Exam Vital Signs Vital Signs - First Documented 08/21/21 01:40 Temp 36.4 Pulse 69 Resp 18 B/P (MAP) 158/111 (127) Pulse Ox 97 O2 Delivery Room Air Capillary Refill : Height, Weight, BMI Height: 5'3.00" Weight: 234lbs. 0oz. 106.934117bz; 41.00 BMI Method:Stated General Appearance: No Apparent Distress, WD/WN Neck: Full Range of Motion, Non Tender, Supple Respiratory: Chest Non Tender, Lungs Clear, Normal Breath Sounds, No Accessory Muscle Use, No Respiratory Distress Cardiovascular: Regular Rate, Rhythm, No Edema, No JVD Gastrointestinal: Non Tender, Soft Extremity: Normal Capillary Refill, Normal Inspection, Non Tender Neurologic/Psychiatric: Alert, Oriented x3, No Motor/Sensory Deficits Skin: Normal Color, Warm/Dry Progress/Results/Core Measures Results/Orders Lab Results Laboratory Tests Test 08/21/21 01:49 08/21/21 03:46 Range/Units White Blood Count 6.3 4.3-11.0 10^3/uL Red Blood Count 5.42 H 3.80-5.11 10^6/uL Hemoglobin 15.7 11.5-16.0 g/dL Hematocrit 48 35-52 % Mean Corpuscular Volume 88 80-99 fL Mean Corpuscular Hemoglobin 29 25-34 pg Mean Corpuscular Hemoglobin Concent 33 32-36 g/dL Red Cell Distribution Width 14.7 H 10.0-14.5 % Platelet Count 326 130-400 10^3/uL Mean Platelet Volume 9.9 9.0-12.2 fL Immature Granulocyte % (Auto) 0 % Neutrophils (%) (Auto) 44 42-75 % Lymphocytes (%) (Auto) 44 12-44 % Monocytes (%) (Auto) 8 0-12 % Eosinophils (%) (Auto) 2 0-10 % Basophils (%) (Auto) 1 0-10 % Neutrophils # (Auto) 2.8 1.8-7.8 X 10^3 Lymphocytes # (Auto) 2.8 1.0-4.0 X 10^3 Monocytes # (Auto) 0.5 0.0-1.0 X 10^3 Eosinophils # (Auto) 0.2 0.0-0.3 10^3/uL Basophils # (Auto) 0.5 H 0.0-0.1 10^3/uL Immature Granulocyte # (Auto) 0.2 H 0.0-0.1 10^3/uL Sodium Level 138 135-145 MMOL/L Potassium Level 4.4 3.6-5.0 MMOL/L Chloride Level 103 98-107 MMOL/L Carbon Dioxide Level 23 21-32 MMOL/L Anion Gap 12 5-14 MMOL/L Blood Urea Nitrogen 14 7-18 MG/DL Creatinine 2.00 H 0.60-1.30 MG/DL Estimat Glomerular Filtration Rate 35 BUN/Creatinine Ratio 7 Glucose Level 99 70-105 MG/DL Calcium Level 9.2 8.5-10.1 MG/DL Corrected Calcium 9.1 8.5-10.1 MG/DL Total Bilirubin 0.2 0.1-1.0 MG/DL Aspartate Amino Transf (AST/SGOT) 20 5-34 U/L Alanine Aminotransferase (ALT/SGPT) 14 0-55 U/L Alkaline Phosphatase 82 40-136 U/L Troponin I < 0.30 < 0.30 <0.30 NG/ML Total Protein 7.5 6.4-8.2 GM/DL Albumin 4.1 3.2-4.5 GM/DL Smear Scan RARE PLT CLUMPS NOTE My Orders Orders - ALPESH BARBOZA DO Cbc With Automated Diff (08/21/21 01:54) Comprehensive Metabolic Panel (08/21/21 01:54) Troponin I Fs (08/21/21 01:54) Aspirin Chewable Tablet (Baby Aspirin Ch (08/21/21 02:00) Chest 1 View Ap/Pa Only (08/21/21 01:55) Ekg Tracing (08/21/21 01:55) Troponin I Fs (08/21/21 02:07) Troponin I Fs (08/21/21 04:00) Hydrocodone/Apap 5/325 Tablet (Lortab 5 (08/21/21 03:00) Medications Given in ED Current Medications Medications Dose Ordered Sig/Mikal Route Start Time Stop Time Status Last Admin Dose Admin Acetaminophen/ Hydrocodone Bitart 1 ea ONCE ONCE PO 08/21/21 03:00 08/21/21 03:01 DC 08/21/21 02:56 1 EA Aspirin 324 mg ONCE ONCE PO 08/21/21 02:00 08/21/21 02:01 DC 08/21/21 02:04 324 MG Vital Signs/I&O 08/21/21 08/21/21 01:40 04:43 Temp 36.4 Pulse 69 63 Resp 18 18 B/P (MAP) 158/111 (127) 164/116 Pulse Ox 97 96 O2 Delivery Room Air Room Air Progress Progress Note : Progress Note initial labs all normal, neg Troponin and renal function at baseline. Pt still having pain in left shoulder area and post shoulder/ trapez. ms. Order for a norco. Will check repeat Troponin, 2 hours after first. Repeat Troponin negative, patient with cont'd pain in left medial shoulder area and upper anterior chest. Seems to be MsSk in origin......pt w large pendulous breasts and likely strain 2 to that as pain crosses over shoulder in area of a typical bra strap. Initial ECG Impression Date: Aug 21, 2021 Initial ECG Impression Time: 01:50 Initial ECG Rate: 70 Initial ECG Rhythm: Normal Sinus Initial ECG Intervals: Normal Initial ECG Impression: Normal Diagnostic Imaging Diagonstic Imaging: Xray Plain Films/CT/US/NM/MRI: chest Reviewed: Reviewed by Me (no acute process) Departure Impression Primary Impression: Chest pain Qualified Codes: R07.9 - Chest pain, unspecified Disposition: HOME, SELF-CARE Condition: Improved Departure-Patient Inst. Decision time for Depature: 04:34 Referrals: BROWN NGUYEN APRN (PCP/Family) Primary Care Physician Patient Instructions: Chest Pain (DC) Add. Discharge Instructions: Call your PCP tomorrow to schedule a follow up appointment in the next few days, return to the ER sooner if worse Scripts Cyclobenzaprine HCl (Cyclobenzaprine HCl) 10 Mg Tablet 10 MG PO Q8H PRN for SPASMS, #15 TAB 0 Refills Prov: ALPESH BARBOZA DO 08/21/21 ALPESH BARBOZA DO Aug 21, 2021 01:54
[2021-08-21] MEDS ORDERED: ASPIRIN 81 MG CHEW (CHILDREN'S ASA) PO ONE (02:00)
[2021-08-21 02:28] LABS: HEMATOCRIT 48 % (35-52); HEMOGLOBIN 15.7 g/dL (11.5-16.0); LYMPHOCYTES % (AUTO) 44 % (12-44); MEAN CORPUSCULAR HEMOGLOBIN 29 pg (25-34); MEAN CORPUSCULAR HGB CONC 33 g/dL (32-36); MEAN CORPUSCULAR VOLUME 88 fL (80-99); MEAN PLATELET VOLUME 9.9 fL (9.0-12.2); NEUTROPHILS % (AUTO) 44 % (42-75); WHITE BLOOD COUNT 6.3 10^3/uL (4.3-11.0)
[2021-08-21 02:29] LABS: BASOPHILS # (AUTO) 0.5 10^3/uL (0.0-0.1); BASOPHILS % (AUTO) 1 % (0-10); EOSINOPHILS # (AUTO) 0.2 10^3/uL (0.0-0.3); EOSINOPHILS % (AUTO) 2 % (0-10); LYMPHOCYTES # (AUTO) 2.8 X 10^3 (1.0-4.0); MONOCYTES # (AUTO) 0.5 X 10^3 (0.0-1.0); MONOCYTES % (AUTO) 8 % (0-12); NEUTROPHILS # (AUTO) 2.8 X 10^3 (1.8-7.8)
[2021-08-21 02:34] LABS: SMEAR SCAN COMMENT RARE PLT CLUMPS NOTE
[2021-08-21 02:36] LABS: PLATELET COUNT 326 10^3/uL (130-400)
[2021-08-21 02:42] LABS: POTASSIUM 4.4 MMOL/L (3.6-5.0); SODIUM 138 MMOL/L (135-145)
[2021-08-21 02:43] LABS: ALANINE AMINOTRANSFERASE 14 U/L (0-55); ALBUMIN 4.1 GM/DL (3.2-4.5); ALKALINE PHOSPHATASE 82 U/L (40-136); BILIRUBIN,TOTAL 0.2 MG/DL (0.1-1.0); BUN/CREATININE RATIO 7; CALCIUM 9.2 MG/DL (8.5-10.1); CARBON DIOXIDE 23 MMOL/L (21-32); CHLORIDE 103 MMOL/L (98-107); GFR ESTIMATED 35; GLUCOSE 99 MG/DL (70-105); TOTAL PROTEIN 7.5 GM/DL (6.4-8.2)
[2021-08-21] MEDS ORDERED: HYDROcodone/APAP 5 MG/325 MG (LORTAB) TAB PO ONE (03:00)
[2021-08-21] MEDS ORDERED: CYCL10TA9 PO (04:35)
[2021-08-21 04:43] VITALS: BP 164/116
--- NOTE | 2021-08-21 05:59 | Diagnostic Imaging Report ---
EXAMINATION: AP upright portable chest INDICATION: Chest pain. COMPARISON: Multiple priors, most recent performed on 06/29/2021. FINDINGS: Low lung volumes are demonstrated. Left transvenous pacemaker/ICD and leads are unchanged in position. The lungs are clear and the pulmonary vasculature is normal. No pneumothorax or large pleural effusion. Heart is top normal in size. Mediastinal contours are unchanged. No acute osseous abnormality is identified. Surgical clips are demonstrated in the right upper abdominal quadrant. IMPRESSION: No radiographic evidence of acute chest disease. No significant change from prior. Dictated by: Dictated on workstation # [id number]
== END 2021-08-21 04:43 | disposition home or self-care (01) ==
LOC: EDUNIT# 01:39 → ER FS 01:43
DX: R07.9 Chest pain, unspecified (principal); I11.0 Hypertensive heart disease with heart failure; I50.9 Heart failure, unspecified; E66.9 Obesity, unspecified; K21.9 Gastro-esophageal reflux disease without esophagitis; F41.9 Anxiety disorder, unspecified; F31.9 Bipolar disorder, unspecified; Z68.41 Body mass index [BMI] 40.0-44.9, adult; Z95.810 Presence of automatic (implantable) cardiac defibrillator; Z86.73 Personal history of transient ischemic attack (TIA), and cerebral infarction without residual deficits; Z79.899 Other long term (current) drug therapy; Z79.01 Long term (current) use of anticoagulants
CPT/HCPCS: 36415; 71045; 80053; 84484; 85025; 93005

== ENCOUNTER 2021-09-05 06:31 | Emergency (ER) | payer MEDICARE, MEDICAID ==
[~2021-09-05] VITALS: Ht 167 cm; Wt 106.0 kg
--- NOTE | 2021-09-05 06:42 | ED Dyspnea ---
General Chief Complaint: Chest Pain Stated Complaint: TROUBLE BREATHING History of Present Illness Date Seen by Provider: Sep 05, 2021 Time Seen by Provider: 06:37 Initial Comments 31-year-old female presents with upper chest pain. Reports that started around 630 last night. That hurts when she breathes. 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 She reports some mild occasional shortness of breath. She denies any fevers chills cough or other systemic complaints. (VINITA RICHARD DO) Allergies and Home Medications Allergies Coded Allergies: JIA Inhibitors (Verified Allergy, Severe, 05/22/19) ARB-Angiotensin Receptor Antagonist (Verified Allergy, Severe, 05/22/19) amoxicillin (Verified Allergy, Unknown, 05/28/21) baclofen (Unverified Allergy, Unknown, 05/22/19) ON H&P clavulanic acid (Verified Allergy, Unknown, 05/28/21) phenazopyridine (Unverified Allergy, Unknown, 05/22/19) ON H&P Patient Home Medication List Home Medication List Reviewed: Yes (VINITA RICHARD DO) Albuterol Sulfate (Rx-Proair) 8 Gm Hfa.aer.ad, 2 PUFF INH Q6H PRN for SHORTNESS OF BREATH, (Reported) Entered as Reported by: BROWN SCHULER on 03/21/15 1434 Amlodipine Besylate (Amlodipine Besylate) 10 Mg Tablet, 10 MG PO DAILY, (Reported) Entered as Reported by: TUNG HELTON on 07/23/15 0737 Apixaban (Eliquis) 5 Mg Tablet, 5 MG PO BID Prescribed by: RALPH DELCID on 11/01/18 1856 Azelastine HCl (Azelastine HCl) 137 Mcg/0.137 Ml [place].pump, 137 MCG NS BID Prescribed by: MOUNIKA GARCIA on 06/24/21 0101 Biotin (Biotin) 5,000 Mcg Tab.rapdis, (Reported) Entered as Reported by: MIKY CAMPBELL on 05/22/192116 Cyclobenzaprine HCl (Cyclobenzaprine HCl) 10 Mg Tablet, 10 MG PO Q8H PRN for SPASMS Prescribed by: ALPESH BARBOZA on 08/21/21 0435 Diphenoxylate HCl/Atropine (Lomotil 2.5-0.025 mg Tablet) 1 Each Tablet, 1 EACH PO BID PRN for DIARRHEA Prescribed by: ORESTES VELASCO on 11/29/192308 Epinephrine (Epinephrine) 0.3 Mg/0.3 Ml Auto.injct, 0.3 MG IJ PRN Prescribed by: MOUNIKA GARCIA on 05/28/21 0932 Famotidine (Famotidine) 20 Mg Tablet, (Reported) Entered as Reported by: TALISHA CELIS on 08/05/181810 Hydrocodone/Acetaminophen (Hydrocodone-Acetamin 5-325 mg) 1 Each Tablet, 1 TAB PO Q4H PRN for PAIN-MODERATE (5-7) Prescribed by: MOIZ MARLEY on 03/24/21 1217 Metoprolol Tartrate (Metoprolol Tartrate) 50 Mg Tablet, 50 MG PO BID Prescribed by: FELECIA FORTUNE on 07/24/15 0841 Ondansetron (Ondansetron Odt) 4 Mg Tab.rapdis, 4 MG PO Q6H PRN for NAUSEA/VOMITING Prescribed by: EDISON CHAMBERLAIN on 06/26/21 0957 Ropinirole HCl (Ropinirole HCl) 0.5 Mg Tablet, (Reported) Entered as Reported by: TALISHA CELIS on 08/05/181809 Sacubitril/Valsartan (Entresto 24 mg-26 mg Tablet) 1 Each Tablet, (Reported) Entered as Reported by: TALISHA CELIS on 08/05/181809 [Clonidine Hydrochloride .2 Mg ] , (Reported) Entered as Reported by: MIKY CAMPBELL on 05/22/192115 [Meloxicam 15 Mg Tabs] , (Reported) Entered as Reported by: MIKY CAMPBELL on 05/22/192115 [Metoprolol Tartrate 100 Mg Tab] , (Reported) Entered as Reported by: MIKY CAMPBELL on 05/22/191929 [Olanzapine 10 Mg Tabs] , (Reported) Entered as Reported by: MIKY CAMPBELL on 05/22/192115 [Oxcarbazepine 300 Mg Tabs] , (Reported) Entered as Reported by: MIKY CAMPBELL on 05/22/192115 Review of Systems Review of Systems Constitutional: No chills, No fever Respiratory: No cough; short of breath Cardiovascular: chest pain (With breathing) Gastrointestinal: No abdominal pain, No nausea, No vomiting Musculoskeletal: see HPI Skin: no symptoms reported Psychiatric/Neurological: No Symptoms Reported Endocrine: No Symptoms Reported Hematologic/Lymphatic: No Symptoms Reported (VINITA RICHARD DO) Past Jroybig-Ishsyd-Jgcams Hx Immunizations Up To Date Tetanus Booster (TDap): Unknown PED Vaccines UTD: Yes First/Initial COVID19 Vaccinat: Unknown Second COVID19 Vaccination Adair: Unknown (VINITA RICHARD DO) Seasonal Allergies Seasonal Allergies: No (VINITA RICHARD DO) Past Medical History Surgery/Hospitalization HX: Cardiac, Stroke Surgeries: Yes (PACER/DEFIB 2014; DEFIB PLACED 05/10/19. 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 No Pertinent Family Hx SOCIAL HISTORY: -OCCASIONAL ETOH -HX OF IV METH USE, CLAIMS NO USE SINCE 2015 -QUIT SMOKING SEVERAL YEARS AGO (VINITA RICHARD DO) Physical Exam Vital Signs Vital Signs - First Documented 09/05/21 09/05/21 06:36 07:36 Temp 36.7 Pulse 75 Resp 16 B/P (MAP) 171/116 (134) Pulse Ox 98 O2 Delivery Room Air (ALPESH BARBOZA DO) Vital Signs Capillary Refill : (VINITA RICHARD DO) Height, Weight, BMI Height: 5'3.00" Weight: 234lbs. 0oz. 106.492267gw; 41.00 BMI Method:Stated General Appearance: No Apparent Distress, WD/WN Neck: Non Tender, Supple Respiratory: Lungs Clear, Normal Breath Sounds, Other (Mild upper chest wall tenderness with palpation, reproducible to her chest pain) Cardiovascular: Regular Rate, Rhythm, No Edema Gastrointestinal: Non Tender, Soft Extremity: Normal Capillary Refill, Normal Inspection Neurologic/Psychiatric: Alert, Oriented x3, No Motor/Sensory Deficits Skin: Normal Color, Warm/Dry (RICHARD,VINITA L DO) Progress/Results/Core Measures Results/Orders Lab Results Laboratory Tests Test 09/05/21 06:46 Range/Units White Blood Count 8.2 4.3-11.0 10^3/uL Red Blood Count 5.10 3.80-5.11 10^6/uL Hemoglobin 14.6 11.5-16.0 g/dL Hematocrit 44 35-52 % Mean Corpuscular Volume 87 80-99 fL Mean Corpuscular Hemoglobin 29 25-34 pg Mean Corpuscular Hemoglobin Concent 33 32-36 g/dL Red Cell Distribution Width 14.6 H 10.0-14.5 % Platelet Count 401 H 130-400 10^3/uL Mean Platelet Volume 9.0 9.0-12.2 fL Immature Granulocyte % (Auto) 0 % Neutrophils (%) (Auto) 39 L 42-75 % Lymphocytes (%) (Auto) 51 H 12-44 % Monocytes (%) (Auto) 7 0-12 % Eosinophils (%) (Auto) 2 0-10 % Basophils (%) (Auto) 1 0-10 % Neutrophils # (Auto) 3.2 1.8-7.8 X 10^3 Lymphocytes # (Auto) 4.2 H 1.0-4.0 X 10^3 Monocytes # (Auto) 0.6 0.0-1.0 X 10^3 Eosinophils # (Auto) 0.2 0.0-0.3 10^3/uL Basophils # (Auto) 0.1 0.0-0.1 10^3/uL Immature Granulocyte # (Auto) 0.0 0.0-0.1 10^3/uL Sodium Level 139 135-145 MMOL/L Potassium Level 4.2 3.6-5.0 MMOL/L Chloride Level 105 98-107 MMOL/L Carbon Dioxide Level 22 21-32 MMOL/L Anion Gap 12 5-14 MMOL/L Blood Urea Nitrogen 23 H 7-18 MG/DL Creatinine 2.19 H 0.60-1.30 MG/DL Estimat Glomerular Filtration Rate 31 BUN/Creatinine Ratio 11 Glucose Level 98 70-105 MG/DL Calcium Level 8.9 8.5-10.1 MG/DL Corrected Calcium 8.8 8.5-10.1 MG/DL Magnesium Level 1.9 1.6-2.4 MG/DL Total Bilirubin 0.2 0.1-1.0 MG/DL Aspartate Amino Transf (AST/SGOT) 16 5-34 U/L Alanine Aminotransferase (ALT/SGPT) 12 0-55 U/L Alkaline Phosphatase 71 40-136 U/L Troponin I < 0.30 <0.30 NG/ML Total Protein 7.2 6.4-8.2 GM/DL Albumin 4.1 3.2-4.5 GM/DL (ALPESH BARBOZA DO) Vital Signs/I&O 09/05/21 09/05/21 06:36 07:36 Temp 36.7 Pulse 75 69 Resp 16 17 B/P (MAP) 171/116 (134) 160/113 Pulse Ox 98 O2 Delivery Room Air Room Air (ALPESH BARBOZA DO) Progress Progress Note : Progress Note CC, HPI and PMHx discussed @ shift change w Dr Richard. Reviewed ECG, labs and normal CXR. Pt stable w minimal discomfort, no pain. Hx of similar episodes in the past. Advised to continue current medications and to follow up w PCP in a f ew days and to the ER sooner if worsening Sx. Pt expresses understanding (ALPESH BARBOZA DO) Initial ECG Impression Date: Sep 05, 2021 Initial ECG Impression Time: 06:46 Initial ECG Rhythm: Normal Sinus (73) Initial ECG Intervals: NE (263) Comment no acute findings, prolonged pr, lvh, sinus rhythm (VINITA RICHARD DO) Diagnostic Imaging Diagonstic Imaging: Xray Plain Films/CT/US/NM/MRI: chest Comments Date of Exam:09/05/21 CHEST PA/LAT (2 VIEW) INDICATION: Chest pressure. Trouble breathing for 2 days. EXAMINATION: Two-view chest 09/05/2021 COMPARISON: 04/19/2019 FINDINGS: Two views of the chest There is a left-sided pacemaker stable in appearance. Heart and pulmonary vasculature normal. Lungs and pleural spaces clear. IMPRESSION: Negative chest. Dictated on workstation # [id number] Dict: 09/05/21700 Trans: 09/05/21707 RIA [id number] Interpreted by: ERMIAS BROWN MD Electronically signed by: (ALPESH BARBOZA DO) Departure Impression Primary Impression: Chest pain Qualified Codes: R07.9 - Chest pain, unspecified Disposition: HOME, SELF-CARE Condition: Stable Departure-Patient Inst. Decision time for Depature: 07:29 (ALPESH BARBOZA DO) Referrals: BROWN NGUYEN APRN (PCP/Family) Primary Care Physician Patient Instructions: Chest Pain (DC) Add. Discharge Instructions: Follow up with your PCP (Raymundo) in a few days for re-evaluation. REturn to the nearest ER for any worsening or progression of your pain. All discharge instructions reviewed with patient and/or family. Voiced understanding. VINITA RICHARD DO Sep 05, 2021 06:42 ALPESH BARBOZA DO Sep 05, 2021 07:32
[2021-09-05 07:06] LABS: BASOPHILS # (AUTO) 0.1 10^3/uL (0.0-0.1); BASOPHILS % (AUTO) 1 % (0-10); EOSINOPHILS # (AUTO) 0.2 10^3/uL (0.0-0.3); EOSINOPHILS % (AUTO) 2 % (0-10); HEMATOCRIT 44 % (35-52); HEMOGLOBIN 14.6 g/dL (11.5-16.0); LYMPHOCYTES # (AUTO) 4.2 X 10^3 (1.0-4.0); LYMPHOCYTES % (AUTO) 51 % (12-44); MEAN CORPUSCULAR HEMOGLOBIN 29 pg (25-34); MEAN CORPUSCULAR HGB CONC 33 g/dL (32-36); MEAN CORPUSCULAR VOLUME 87 fL (80-99); MONOCYTES # (AUTO) 0.6 X 10^3 (0.0-1.0); MONOCYTES % (AUTO) 7 % (0-12); NEUTROPHILS # (AUTO) 3.2 X 10^3 (1.8-7.8); NEUTROPHILS % (AUTO) 39 % (42-75); PLATELET COUNT 401 10^3/uL (130-400); WHITE BLOOD COUNT 8.2 10^3/uL (4.3-11.0)
--- NOTE | 2021-09-05 07:09 | Diagnostic Imaging Report ---
INDICATION: Chest pressure. Trouble breathing for 2 days. EXAMINATION: Two-view chest 09/05/2021 COMPARISON: 04/19/2019 FINDINGS: Two views of the chest There is a left-sided pacemaker stable in appearance. Heart and pulmonary vasculature normal. Lungs and pleural spaces clear. IMPRESSION: Negative chest. Dictated by: Dictated on workstation # [id number]
[2021-09-05 07:24] LABS: ALANINE AMINOTRANSFERASE 12 U/L (0-55); ALBUMIN 4.1 GM/DL (3.2-4.5); ALKALINE PHOSPHATASE 71 U/L (40-136); BILIRUBIN,TOTAL 0.2 MG/DL (0.1-1.0); BUN/CREATININE RATIO 11; CALCIUM 8.9 MG/DL (8.5-10.1); CARBON DIOXIDE 22 MMOL/L (21-32); CHLORIDE 105 MMOL/L (98-107); CREATININE SERUM 2.19 MG/DL (0.60-1.30); GFR ESTIMATED 31; GLUCOSE 98 MG/DL (70-105); MAGNESIUM 1.9 MG/DL (1.6-2.4); POTASSIUM 4.2 MMOL/L (3.6-5.0); SODIUM 139 MMOL/L (135-145); TOTAL PROTEIN 7.2 GM/DL (6.4-8.2)
[2021-09-05 07:36] VITALS: BP 160/113
== END 2021-09-05 07:36 | disposition home or self-care (01) ==
LOC: EDUNIT# 06:31 → ER FS 06:32
DX: R07.9 Chest pain, unspecified (principal); I10 Essential (primary) hypertension; E66.9 Obesity, unspecified; K21.9 Gastro-esophageal reflux disease without esophagitis; F31.9 Bipolar disorder, unspecified; F41.9 Anxiety disorder, unspecified; Z68.41 Body mass index [BMI] 40.0-44.9, adult; Z95.810 Presence of automatic (implantable) cardiac defibrillator; Z79.01 Long term (current) use of anticoagulants; Z79.899 Other long term (current) drug therapy
CPT/HCPCS: 36415; 71046; 80053; 83735; 84484; 85025; 93005

== ENCOUNTER 2021-10-09 19:32 | Emergency (ER) | payer MEDICARE, MEDICAID ==
[~2021-10-09] VITALS: Ht 160 cm; Wt 109.0 kg
[~2021-10-09 19:32] MED LIST changes: +CLIN-144 PO
--- NOTE | 2021-10-09 19:41 | ED Upper Extremity ---
General Stated Complaint: FELL/RIGHT THUMB INJURY History of Present Illness Date Seen by Provider: Oct 09, 2021 Time Seen by Provider: 19:40 Initial Comments 31-year-old female presents with injury to her right thumb. She relates that she Fell back on her bed and bit her thumb all the way back. She has some tenderness at the base of her thumb, she has full but painful range of motion. She denies any other injury. She has no obvious deformities or bruising or other symptoms. Allergies and Home Medications Allergies Coded Allergies: JIA Inhibitors (Verified Allergy, Severe, 05/22/19) ARB-Angiotensin Receptor Antagonist (Verified Allergy, Severe, 05/22/19) amoxicillin (Verified Allergy, Unknown, 05/28/21) baclofen (Unverified Allergy, Unknown, 05/22/19) ON H&P clavulanic acid (Verified Allergy, Unknown, 05/28/21) phenazopyridine (Unverified Allergy, Unknown, 05/22/19) ON H&P Patient Home Medication List Home Medication List Reviewed: Yes Albuterol Sulfate (Rx-Proair) 8 Gm Hfa.aer.ad, 2 PUFF INH Q6H PRN for SHORTNESS OF BREATH, (Reported) Entered as Reported by: BROWN SCHULER on 03/21/15 1434 Amlodipine Besylate (Amlodipine Besylate) 10 Mg Tablet, 10 MG PO DAILY, (Reported) Entered as Reported by: TUNG HELTON on 07/23/15 0737 Apixaban (Eliquis) 5 Mg Tablet, 5 MG PO BID Prescribed by: RALPH DELCID on 11/01/18 1856 Azelastine HCl (Azelastine HCl) 137 Mcg/0.137 Ml [place].pump, 137 MCG NS BID Prescribed by: MOUNIKA GARCIA on 06/24/21 0101 Biotin (Biotin) 5,000 Mcg Tab.rapdis, (Reported) Entered as Reported by: MIKY CAMPBELL on 05/22/192116 Clindamycin HCl (Clindamycin HCl) 300 Mg Capsule, 300 MG PO Q8H Prescribed by: MOIZ MARLEY on 09/20/21 194 Cyclobenzaprine HCl (Cyclobenzaprine HCl) 10 Mg Tablet, 10 MG PO Q8H PRN for SPASMS Prescribed by: ALPESH BARBOZA on 08/21/21 0435 Diphenoxylate HCl/Atropine (Lomotil 2.5-0.025 mg Tablet) 1 Each Tablet, 1 EACH PO BID PRN for DIARRHEA Prescribed by: ORESTES VELASCO on 11/29/19 2309 Epinephrine (Epinephrine) 0.3 Mg/0.3 Ml Auto.injct, 0.3 MG IJ PRN Prescribed by: MOUNIKA GARCIA on 05/28/21 0932 Famotidine (Famotidine) 20 Mg Tablet, (Reported) Entered as Reported by: TALISHA CELIS on 08/05/18 181 Hydrocodone/Acetaminophen (Hydrocodone-Acetamin 5-325 mg) 1 Each Tablet, 1 TAB PO Q4H PRN for PAIN-MODERATE (5-7) Prescribed by: MOIZ MARLEY on 03/24/21 1217 Metoprolol Tartrate (Metoprolol Tartrate) 50 Mg Tablet, 50 MG PO BID Prescribed by: FELECIA FORTUNE on 07/24/15 0841 Ondansetron (Ondansetron Odt) 4 Mg Tab.rapdis, 4 MG PO Q6H PRN for NAUSEA/VOMITING Prescribed by: EDISON CHAMBERLAIN on 06/26/21 0957 Ropinirole HCl (Ropinirole HCl) 0.5 Mg Tablet, (Reported) Entered as Reported by: TALISHA CELIS on 08/05/18 181 Sacubitril/Valsartan (Entresto 24 mg-26 mg Tablet) 1 Each Tablet, (Reported) Entered as Reported by: TALISHA CELIS on 08/05/181809 Tramadol HCl (Tramadol HCl) 50 Mg Tablet, 50 MG PO Q4H PRN for PAIN-MILD (1-4) Prescribed by: MOIZ MARLEY on 09/20/21 194 [Clonidine Hydrochloride .2 Mg ] , (Reported) Entered as Reported by: MIKY CAMPBELL on 05/22/192115 [Meloxicam 15 Mg Tabs] , (Reported) Entered as Reported by: MIKY CAMPBELL on 05/22/192115 [Metoprolol Tartrate 100 Mg Tab] , (Reported) Entered as Reported by: MIKY CAMPBELL on 05/22/19 193 [Olanzapine 10 Mg Tabs] , (Reported) Entered as Reported by: MIKY CAMPBELL on 05/22/192115 [Oxcarbazepine 300 Mg Tabs] , (Reported) Entered as Reported by: MIKY CAMPBELL on 05/22/192115 Review of Systems Constitutional: No chills, No fever Respiratory: No cough, No short of breath Cardiovascular: No chest pain; palpitations Gastrointestinal: no symptoms reported Musculoskeletal: see HPI Skin: no symptoms reported Psychiatric/Neurological: No Symptoms Reported Past Cvnxkig-Rpzhln-Gjijvn Hx Immunizations Up To Date Tetanus Booster (TDap): Unknown PED Vaccines UTD: Yes First/Initial COVID19 Vaccinat: Unknown Second COVID19 Vaccination Adair: Unknown Third COVID19 Vaccination Date: Unknown Seasonal Allergies Seasonal Allergies: No Past Medical History Surgery/Hospitalization HX: Cardiac, Stroke Surgeries: Yes (PACER/DEFIB 2014; DEFIB PLACED 05/10/19. 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 No Pertinent Family Hx SOCIAL HISTORY: -OCCASIONAL ETOH -HX OF IV METH USE, CLAIMS NO USE SINCE 2015 -QUIT SMOKING SEVERAL YEARS AGO Physical Exam Vital Signs Vital Signs - First Documented 10/09/21 19:37 Temp 36.4 Pulse 60 Resp 17 B/P (MAP) 173/113 (133) Pulse Ox 97 O2 Delivery Room Air Capillary Refill : Height, Weight, BMI Height: 5'3.00" Weight: 234lbs. 0oz. 106.210739xf; 38.00 BMI Method:Stated General Appearance: WD/WN, no apparent distress Cardiovascular: normal peripheral pulses, regular rate, rhythm Respiratory: chest non-tender, lungs clear, normal breath sounds Gastrointestinal: non tender, soft Shoulder: normal inspection Elbow/Forearm: normal inspection Wrist: Yes normal inspection Hand: normal ROM, Right, soft tissue tenderness (right thumb ) Neurologic/Tendon: normal sensation, normal tendon functions Neurologic/Psychiatric: alert, normal mood/affect, oriented x 3 Skin: normal color, warm/dry Progress/Results/Core Measures Results/Orders My Orders Orders - VINITA RICHARD DO Hand 3 View Right (10/09/21 19:43) Vital Signs/I&O 10/09/21 19:37 Temp 36.4 Pulse 60 Resp 17 B/P (MAP) 173/113 (133) Pulse Ox 97 O2 Delivery Room Air Progress Progress Note : Progress Note Patient with no acute findings on x-ray. Patient with a thumb sprain with no obvious ligamentous injury. Patient should use Tylenol ibuprofen, ice and is discharged home in stable can Diagnostic Imaging Diagonstic Imaging: Xray Plain Films/CT/US/NM/MRI: other Comments Date of Exam:10/09/21 HAND 3 VIEW RIGHT HAND 3 VIEW RIGHT COMPARISON: None available. INDICATION: Right thumb pain after injury TECHNIQUE: PA, oblique and lateral views of the hand. FINDINGS: No fracture or traumatic malalignment. No radiopaque foreign body. Joint spaces are well-maintained. IMPRESSION: 1. No acute fracture or malalignment. Reviewed: Reviewed by Me, Reviewed/Discussed Departure Impression Primary Impression: Unspecified sprain of right thumb, initial encounter Disposition: 01 HOME, SELF-CARE Condition: Stable Departure-Patient Inst. Referrals: BROWN NGUYEN APRN (PCP/Family) Primary Care Physician Patient Instructions: Thumb Sprain ED, Using Cold for Pain, Finger Sprain Exercises Add. Discharge Instructions: Tylenol or ibuprofen as needed for pain Follow-up with your primary care provider if symptoms have not improved over the next 7 to 10 days VINITA RICHARD DO Oct 09, 2021 19:41
--- NOTE | 2021-10-09 20:10 | Diagnostic Imaging Report ---
HAND 3 VIEW RIGHT COMPARISON: None available. INDICATION: Right thumb pain after injury TECHNIQUE: PA, oblique and lateral views of the hand. FINDINGS: No fracture or traumatic malalignment. No radiopaque foreign body. Joint spaces are well-maintained. IMPRESSION: 1. No acute fracture or malalignment. Dictated by: Dictated on workstation # [id number]
[2021-10-09 20:24] VITALS: BP 165/92
== END 2021-10-09 20:24 | disposition home or self-care (01) ==
LOC: EDUNIT# 19:32 → ER FS 19:35
DX: S63.601A Unspecified sprain of right thumb, initial encounter (principal); I10 Essential (primary) hypertension; K21.9 Gastro-esophageal reflux disease without esophagitis; F41.9 Anxiety disorder, unspecified; F31.9 Bipolar disorder, unspecified; E66.9 Obesity, unspecified; Z86.73 Personal history of transient ischemic attack (TIA), and cerebral infarction without residual deficits; Z68.38 Body mass index [BMI] 38.0-38.9, adult; Z79.899 Other long term (current) drug therapy; Z79.01 Long term (current) use of anticoagulants; W22.8XXA Striking against or struck by other objects, initial encounter
CPT/HCPCS: 73130

== ENCOUNTER 2021-11-16 22:50 | Emergency (ER) | payer MEDICARE, MEDICAID ==
[~2021-11-16 22:50] MED LIST changes: +CYCL10TA25; +CYCL10TA25 PO; -CYCL10TA9; -CYCL10TA9 PO; +DICY20TA PO; -DICY20TA10 PO
[2021-11-16] MEDS ORDERED: ASPIRIN 81 MG CHEW (CHILDREN'S ASA) PO ONE (23:15)
--- NOTE | 2021-11-16 23:22 | ED Chest Pain ---
General Chief Complaint: Chest Pain Stated Complaint: NAUSEA,CP Nursing Triage Note: Pt complaining of chest pain that started a couple of days ago Source: patient, family Exam Limitations: no limitations History of Present Illness Date Seen by Provider: Nov 16, 2021 Time Seen by Provider: 22:57 Initial Comments 31-year-old female with past medical history of nonischemic cardiomyopathy, AICD in place, hypertension, takes Eliquis for previous atrial thrombus coming in due to chest pain that is been ongoing for 2 days. Pain is constant, left side of her chest, nonradiating, aching. Nothing seems to make it better or worse. She is taking all her medications as prescribed including the Eliquis and has not missed any doses. Has not had any aspirin today. Is otherwise denying any other acute complaints. Allergies and Home Medications Allergies Coded Allergies: JIA Inhibitors (Verified Allergy, Severe, 05/22/19) ARB-Angiotensin Receptor Antagonist (Verified Allergy, Severe, 05/22/19) amoxicillin (Verified Allergy, Unknown, 05/28/21) baclofen (Unverified Allergy, Unknown, 05/22/19) ON H&P clavulanic acid (Verified Allergy, Unknown, 05/28/21) phenazopyridine (Unverified Allergy, Unknown, 05/22/19) ON H&P Patient Home Medication List Home Medication List Reviewed: Yes Albuterol Sulfate (Rx-Proair) 8 Gm Hfa.aer.ad, 2 PUFF INH Q6H PRN for SHORTNESS OF BREATH, (Reported) Entered as Reported by: BROWN SCHULER on 03/21/15 1434 Amlodipine Besylate (Amlodipine Besylate) 10 Mg Tablet, 10 MG PO DAILY, (Reported) Entered as Reported by: TUNG HELTON on 07/23/15 0737 Apixaban (Eliquis) 5 Mg Tablet, 5 MG PO BID Prescribed by: RALPH DELCID on 11/01/18 1856 Azelastine HCl (Azelastine HCl) 137 Mcg/0.137 Ml [place].pump, 137 MCG NS BID Prescribed by: MOUNIKA GARCIA on 06/24/21 0101 Biotin (Biotin) 5,000 Mcg Tab.rapdis, (Reported) Entered as Reported by: MIKY CAMPBELL on 05/22/19 2117 Clindamycin HCl (Clindamycin HCl) 300 Mg Capsule, 300 MG PO Q8H Prescribed by: MOIZ MARLEY on 09/20/211943 Cyclobenzaprine HCl (Cyclobenzaprine HCl) 10 Mg Tablet, 10 MG PO Q8H PRN for SPASMS Prescribed by: ALPESH BARBOZA on 08/21/21 0435 Diphenoxylate HCl/Atropine (Lomotil 2.5-0.025 mg Tablet) 1 Each Tablet, 1 EACH PO BID PRN for DIARRHEA Prescribed by: ORESTES VELASCO on 11/29/19 2309 Epinephrine (Epinephrine) 0.3 Mg/0.3 Ml Auto.injct, 0.3 MG IJ PRN Prescribed by: MOUNIKA GARCIA on 05/28/21 0932 Famotidine (Famotidine) 20 Mg Tablet, (Reported) Entered as Reported by: TALISHA CELIS on 08/05/18 181 Hydrocodone/Acetaminophen (Hydrocodone-Acetamin 5-325 mg) 1 Each Tablet, 1 TAB PO Q4H PRN for PAIN-MODERATE (5-7) Prescribed by: MOIZ MARLEY on 03/24/21 1217 Metoprolol Tartrate (Metoprolol Tartrate) 50 Mg Tablet, 50 MG PO BID Prescribed by: FELECIA FORTUNE on 07/24/15 0841 Ondansetron (Ondansetron Odt) 4 Mg Tab.rapdis, 4 MG PO Q6H PRN for NAUSEA/VOMITING Prescribed by: EDISON CHAMBERLAIN on 06/26/21 0957 Ropinirole HCl (Ropinirole HCl) 0.5 Mg Tablet, (Reported) Entered as Reported by: TALISHA CELIS on 08/05/18 181 Sacubitril/Valsartan (Entresto 24 mg-26 mg Tablet) 1 Each Tablet, (Reported) Entered as Reported by: TALISHA CELIS on 08/05/181809 Tramadol HCl (Tramadol HCl) 50 Mg Tablet, 50 MG PO Q4H PRN for PAIN-MILD (1-4) Prescribed by: MOIZ MARLEY on 09/20/211944 [Clonidine Hydrochloride .2 Mg ] , (Reported) Entered as Reported by: MIKY CAMPBELL on 05/22/192115 [Meloxicam 15 Mg Tabs] , (Reported) Entered as Reported by: MIKY CAMPBELL on 05/22/192115 [Metoprolol Tartrate 100 Mg Tab] , (Reported) Entered as Reported by: MIKYLoree CAMPBELL on 05/22/191929 [Olanzapine 10 Mg Tabs] , (Reported) Entered as Reported by: MIKY CAMPBELL on 05/22/192115 [Oxcarbazepine 300 Mg Tabs] , (Reported) Entered as Reported by: MIKY CAMPBELL on 05/22/192115 Review of Systems Review of Systems Constitutional: No chills, No fever EENTM: No Blurred Vision Respiratory: Denies Cough, Denies Shortness of Air Cardiovascular: Chest Pain Gastrointestinal: Denies Abdominal Pain, Denies Diarrhea, Denies Nausea, Denies Vomiting Genitourinary: No Symptoms Reported Musculoskeletal: no symptoms reported Skin: no symptoms reported Psychiatric/Neurological: No Symptoms Reported Endocrine: No Symptoms Reported Hematologic/Lymphatic: No Symptoms Reported All Other Systems Reviewed Negative Unless Noted: Yes Past Atifcjy-Tlboep-Itlexr Hx Patient Social History Tobacco Use?: No Use of E-Cig and/or Vaping dev: No Substance use?: No Alcohol Use?: No Pt feels they are or have been: No Immunizations Up To Date Tetanus Booster (TDap): Unknown PED Vaccines UTD: Yes First/Initial COVID19 Vaccinat: Unknown Second COVID19 Vaccination [place]air: Moderna 01/2021 Third COVID19 Vaccination Date: Unknown Seasonal Allergies Seasonal Allergies: No Past Medical History Surgery/Hospitalization HX: Cardiac, Stroke Surgeries: Yes (PACER/DEFIB 2014; DEFIB PLACED 05/10/19. 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 No Pertinent Family Hx SOCIAL HISTORY: -OCCASIONAL ETOH -HX OF IV METH USE, CLAIMS NO USE SINCE 2016 -QUIT SMOKING SEVERAL YEARS AGO Physical Exam Vital Signs Vital Signs - First Documented 11/16/21 22:55 Temp 36.7 Pulse 66 Resp 18 B/P (MAP) 164/107 (126) Pulse Ox 98 O2 Delivery Room Air Capillary Refill : Less Than 3 Seconds Height, Weight, BMI Height: 5'3.00" Weight: 234lbs. 0oz. 106.448841wp; 42.00 BMI Method:Stated General Appearance: No Apparent Distress, WD/WN HEENT: PERRL/EOMI, Normal ENT Inspection, Pharynx Normal Neck: Full Range of Motion, Normal Inspection, Non Tender, Supple Respiratory: Chest Non Tender, Lungs Clear, Normal Breath Sounds, No Accessory Muscle Use, No Respiratory Distress Cardiovascular: Regular Rate, Rhythm, No Edema, Normal Peripheral Pulses Gastrointestinal: Normal Bowel Sounds, Non Tender, Soft; No Distended, No Guarding Extremity: Normal Capillary Refill, Normal Inspection, Normal Range of Motion, Non Tender, No Calf Tenderness, No Pedal Edema Neurologic/Psychiatric: Alert, No Motor/Sensory Deficits, Normal Mood/Affect Skin: Normal Color, Warm/Dry Lymphatic: No Adenopathy Progress/Results/Core Measures Results/Orders Lab Results Laboratory Tests Test 11/16/21 23:04 11/16/21 23:07 Range/Units Prothrombin Time 12.3 12.2-14.7 SEC INR Comment 0.9 0.8-1.4 Activated Partial Thromboplast Time 26 24-35 SEC White Blood Count 8.6 4.3-11.0 10^3/uL Red Blood Count 5.02 3.80-5.11 10^6/uL Hemoglobin 14.4 11.5-16.0 g/dL Hematocrit 44 35-52 % Mean Corpuscular Volume 88 80-99 fL Mean Corpuscular Hemoglobin 29 25-34 pg Mean Corpuscular Hemoglobin Concent 33 32-36 g/dL Red Cell Distribution Width 14.4 10.0-14.5 % Platelet Count 369 130-400 10^3/uL Mean Platelet Volume 9.4 9.0-12.2 fL Immature Granulocyte % (Auto) 0 % Neutrophils (%) (Auto) 32 L 42-75 % Lymphocytes (%) (Auto) 58 H 12-44 % Monocytes (%) (Auto) 7 0-12 % Eosinophils (%) (Auto) 2 0-10 % Basophils (%) (Auto) 1 0-10 % Neutrophils # (Auto) 2.8 1.8-7.8 X 10^3 Lymphocytes # (Auto) 5.0 H 1.0-4.0 X 10^3 Monocytes # (Auto) 0.6 0.0-1.0 X 10^3 Eosinophils # (Auto) 0.2 0.0-0.3 10^3/uL Basophils # (Auto) 0.1 0.0-0.1 10^3/uL Immature Granulocyte # (Auto) 0.0 0.0-0.1 10^3/uL Sodium Level 136 135-145 MMOL/L Potassium Level 4.5 3.6-5.0 MMOL/L Chloride Level 100 98-107 MMOL/L Carbon Dioxide Level 22 21-32 MMOL/L Anion Gap 14 5-14 MMOL/L Blood Urea Nitrogen 17 7-18 MG/DL Creatinine 2.04 H 0.60-1.30 MG/DL Estimat Glomerular Filtration Rate 34 BUN/Creatinine Ratio 8 Glucose Level 93 70-105 MG/DL Calcium Level 9.2 8.5-10.1 MG/DL Corrected Calcium 9.3 8.5-10.1 MG/DL Total Bilirubin 0.2 0.1-1.0 MG/DL Aspartate Amino Transf (AST/SGOT) 17 5-34 U/L Alanine Aminotransferase (ALT/SGPT) 13 0-55 U/L Alkaline Phosphatase 67 40-136 U/L Troponin I < 0.30 <0.30 NG/ML Pro-B-Type Natriuretic Peptide 369.7 H <75.0 PG/ML Total Protein 7.4 6.4-8.2 GM/DL Albumin 3.9 3.2-4.5 GM/DL My Orders Orders - MATY KHAN MD Cbc With Automated Diff (11/16/21 23:07) Chest 1 View Ap/Pa Only (11/16/21 23:07) Ekg Tracing (11/16/21 23:07) Comprehensive Metabolic Panel (11/16/21 23:07) Protime With Inr (11/16/21 23:07) Partial Thromboplastin Time (11/16/21 23:07) Monitor-Rhythm Ecg Trace Only (11/16/21 23:07) Aspirin Chewable Tablet (Baby Aspirin Ch (11/16/21 23:15) Ed Iv/Invasive Line Start (11/16/21 23:07) Troponin I Fs (11/16/21 23:07) Probnp Fs (11/16/21 23:07) Medications Given in ED Current Medications Medications Dose Ordered Sig/Mikal Route Start Time Stop Time Status Last Admin Dose Admin Aspirin 324 mg ONCE ONCE PO 11/16/21 23:15 11/16/21 23:16 DC 11/16/21 23:15 324 MG Vital Signs/I&O 11/16/21 22:55 Temp 36.7 Pulse 66 Resp 18 B/P (MAP) 164/107 (126) Pulse Ox 98 O2 Delivery Room Air Blood Pressure Mean: 126 Progress Progress Note : Progress Note 31-year-old female with above history coming in due to chest pain. ABCs were intact and vitals were stable on presentation. Physical exam without any focal abnormalities. EKG with no significant ischemic changes. Portable chest x-ray ordered and interpreted by me showing no pneumothorax or obvious pneumonia. Appears similar to prior. She was given full dose aspirin while labs were drawn including cardiac markers. Troponin negative, BNP around her baseline, labs otherwise near baseline. I believe the patient will be lower risk for a blood clot given she is not missed any doses of her Eliquis, heart rate is low, breathing comfortably. Pain has improved. Overall the patient is well-appearing. I believe she is stable for discharge with outpatient follow-up. She was sent home with strict return precautions. Initial ECG Impression Date: Nov 16, 2021 Initial ECG Impression Time: 22:50 Initial ECG Rate: 63 Initial ECG Rhythm: Normal Sinus Comment Narrow QRS, normal axis, no significant ST changes, T wave flattening inferiorly Diagnostic Imaging Diagonstic Imaging: Xray (chest) Comments [facility]. [place], [place] NAME: SAL PRIEST [facility] REC#: [id number] PT STATUS: REG ER : 1990 PHYSICIAN: MATY KHAN MD ADMIT DATE: 11/16/21/ER FS Draft Date of Exam:11/16/21 CHEST 1 VIEW AP/PA ONLY INDICATION: Chest pain. Comparison is made with prior examination from 08/21/2021. FINDINGS: The heart size is normal. The lungs are clear. There is no pleural effusion, pneumothorax or pneumonia. The mediastinum is unremarkable. Pacemaker overlies the left hemithorax. IMPRESSION: No acute cardiopulmonary abnormality. Dictated on workstation # [id number] Dict: 11/16/21 2341 Trans: 11/16/21 2354 [facility] [id number] Interpreted by: JOHN SANTANA MD Electronically signed by: Departure Impression Primary Impression: Chest pain Qualified Codes: R07.9 - Chest pain, unspecified Disposition: HOME, SELF-CARE Condition: Stable Departure-Patient Inst. Decision time for Depature: 00:05 Referrals: BROWN NGUYEN APRN (PCP/Family) Primary Care Physician Patient Instructions: Chest Pain, Adult ED Add. Discharge Instructions: You were seen in the emergency department for chest pain. Your labs are reassuring and do not appear like you are having a heart attack. Please do follow-up with your yard associate within the next several days especially if you continue to have pain. MATY KHAN MD Nov 16, 2021 23:22
[2021-11-16 23:32] LABS: INR 0.9 (0.8-1.4); PROTHROMBIN TIME PATIENT 12.3 SEC (12.2-14.7)
[2021-11-16 23:32] LABS: HEMATOCRIT 44 % (35-52); HEMOGLOBIN 14.4 g/dL (11.5-16.0); MEAN CORPUSCULAR HEMOGLOBIN 29 pg (25-34); MEAN CORPUSCULAR HGB CONC 33 g/dL (32-36); MEAN CORPUSCULAR VOLUME 88 fL (80-99); MEAN PLATELET VOLUME 9.4 fL (9.0-12.2); PLATELET COUNT 369 10^3/uL (130-400); WHITE BLOOD COUNT 8.6 10^3/uL (4.3-11.0)
[2021-11-16 23:33] LABS: BASOPHILS # (AUTO) 0.1 10^3/uL (0.0-0.1); BASOPHILS % (AUTO) 1 % (0-10); EOSINOPHILS # (AUTO) 0.2 10^3/uL (0.0-0.3); EOSINOPHILS % (AUTO) 2 % (0-10); LYMPHOCYTES % (AUTO) 58 % (12-44); MONOCYTES # (AUTO) 0.6 X 10^3 (0.0-1.0); MONOCYTES % (AUTO) 7 % (0-12); NEUTROPHILS # (AUTO) 2.8 X 10^3 (1.8-7.8); NEUTROPHILS % (AUTO) 32 % (42-75)
[2021-11-16 23:49] LABS: POTASSIUM 4.5 MMOL/L (3.6-5.0)
[2021-11-16 23:50] LABS: ALBUMIN 3.9 GM/DL (3.2-4.5); BILIRUBIN,TOTAL 0.2 MG/DL (0.1-1.0); CALCIUM 9.2 MG/DL (8.5-10.1); CREATININE SERUM 2.04 MG/DL (0.60-1.30); TOTAL PROTEIN 7.4 GM/DL (6.4-8.2)
--- NOTE | 2021-11-16 23:56 | Diagnostic Imaging Report ---
INDICATION: Chest pain. Comparison is made with prior examination from 08/21/2021. FINDINGS: The heart size is normal. The lungs are clear. There is no pleural effusion, pneumothorax or pneumonia. The mediastinum is unremarkable. Pacemaker overlies the left hemithorax. IMPRESSION: No acute cardiopulmonary abnormality. Dictated by: Dictated on workstation # [id number]
[2021-11-17 00:06] VITALS: BP 156/104
== END 2021-11-17 00:11 | disposition home or self-care (01) ==
LOC: EDUNIT# 22:50 → ER FS 22:52
DX: R07.9 Chest pain, unspecified (principal); F41.9 Anxiety disorder, unspecified; F31.9 Bipolar disorder, unspecified; E66.9 Obesity, unspecified; I10 Essential (primary) hypertension; K21.9 Gastro-esophageal reflux disease without esophagitis; Z68.41 Body mass index [BMI] 40.0-44.9, adult; Z79.01 Long term (current) use of anticoagulants; Z79.899 Other long term (current) drug therapy
CPT/HCPCS: 36415; 71045; 80053; 83880; 84484; 85025; 85610; 85730; 93005; 93041

== ENCOUNTER → 2021-11-19 | Outpatient (CLI) | payer MEDICARE, MEDICAID | LOC: CARD 10:00 | PROVIDERS: ATTEND Internal Medicine Cardiovascular Disease | DX: I07.1 Rheumatic tricuspid insufficiency (principal); I11.9 Hypertensive heart disease without heart failure | CPT/HCPCS: 93306 ==

== ENCOUNTER 2021-11-23 04:19 | Emergency (ER) | payer MEDICARE, MEDICAID ==
[~2021-11-23] VITALS: Ht 160 cm; Wt 116.1 kg
--- NOTE | 2021-11-23 05:09 | ED Lower Extremity ---
General Chief Complaint: Lower Extremity Stated Complaint: LUMP ON RT CALF Nursing Triage Note: PT ARRIVED BY PRIVATE VEHICLE WITH DAUGHTER WITH CHIEF COMPLAINT OF RIGHT LOWER LEG PAIN NEAR ACHILLES TENDON. PT STARTED TO HAVE PAIN THIS MORNING. SHE MENTIONED THAT SHE BUMPED IT. PT WAS ALERT, ORIENTED X 4 AND AMBULATOY ON ARRIVAL. VITALS WERE DONE AND PROVIDER WAS NOTIFIED. Source: patient Exam Limitations: no limitations History of Present Illness Date Seen by Provider: Nov 23, 2021 Time Seen by Provider: 04:45 Initial Comments Patient is a 31-year-old -Thai female on Eliquis for treatment of DVT PE presents with a bump to the back of her left Achilles. Patient is concern f or possible blood clot. No other symptoms or complaints. Patient ambulates with steady gait. Onset: just prior to arrival Pain/Injury Location: left ankle Method of Injury: other Modifying Factors: Improves With Other Allergies and Home Medications Allergies Coded Allergies: JIA Inhibitors (Verified Allergy, Severe, 05/22/19) ARB-Angiotensin Receptor Antagonist (Verified Allergy, Severe, 05/22/19) amoxicillin (Verified Allergy, Unknown, 05/28/21) baclofen (Unverified Allergy, Unknown, 05/22/19) ON H&P clavulanic acid (Verified Allergy, Unknown, 05/28/21) phenazopyridine (Unverified Allergy, Unknown, 05/22/19) ON H&P Patient Home Medication List Home Medication List Reviewed: Yes Albuterol Sulfate (Rx-Proair) 8 Gm Hfa.aer.ad, 2 PUFF INH Q6H PRN for SHORTNESS OF BREATH, (Reported) Entered as Reported by: BROWN SCHULER on 03/21/15 1434 Amlodipine Besylate (Amlodipine Besylate) 10 Mg Tablet, 10 MG PO DAILY, (Reported) Entered as Reported by: TUNG HELTON on 07/23/15 0737 Apixaban (Eliquis) 5 Mg Tablet, 5 MG PO BID Prescribed by: RALPH DELCID on 11/01/18 1856 Azelastine HCl (Azelastine HCl) 137 Mcg/0.137 Ml [place].pump, 137 MCG NS BID Prescribed by: MOUNIKA GARCIA on 06/24/21 0101 Biotin (Biotin) 5,000 Mcg Tab.rapdis, (Reported) Entered as Reported by: MIKY CAMPBELL on 05/22/192116 Clindamycin HCl (Clindamycin HCl) 300 Mg Capsule, 300 MG PO Q8H Prescribed by: MOIZ MARLEY on 09/20/211943 Cyclobenzaprine HCl (Cyclobenzaprine HCl) 10 Mg Tablet, 10 MG PO Q8H PRN for SPASMS Prescribed by: ALPESH Wright ROVENSTAMAYA on 08/21/21 0435 Diphenoxylate HCl/Atropine (Lomotil 2.5-0.025 mg Tablet) 1 Each Tablet, 1 EACH PO BID PRN for DIARRHEA Prescribed by: ORESTES VELASCO on 11/29/19 230 Epinephrine (Epinephrine) 0.3 Mg/0.3 Ml Auto.injct, 0.3 MG IJ PRN Prescribed by: MOUNIKA GARCIA on 05/28/21 0932 Famotidine (Famotidine) 20 Mg Tablet, (Reported) Entered as Reported by: TALISHA CELIS on 08/05/18 181 Hydrocodone/Acetaminophen (Hydrocodone-Acetamin 5-325 mg) 1 Each Tablet, 1 TAB PO Q4H PRN for PAIN-MODERATE (5-7) Prescribed by: MOIZ MARLEY on 03/24/21 1217 Metoprolol Tartrate (Metoprolol Tartrate) 50 Mg Tablet, 50 MG PO BID Prescribed by: FELECIA FORTUNE on 07/24/15 0841 Ondansetron (Ondansetron Odt) 4 Mg Tab.rapdis, 4 MG PO Q6H PRN for NAUSEA/VOMITING Prescribed by: EDISON CHAMBERLAIN on 06/26/21 0957 Ropinirole HCl (Ropinirole HCl) 0.5 Mg Tablet, (Reported) Entered as Reported by: TALISHA CELIS on 08/05/181809 Sacubitril/Valsartan (Entresto 24 mg-26 mg Tablet) 1 Each Tablet, (Reported) Entered as Reported by: TALISHA CELIS on 08/05/181809 Tramadol HCl (Tramadol HCl) 50 Mg Tablet, 50 MG PO Q4H PRN for PAIN-MILD (1-4) Prescribed by: MOIZ MARLEY on 09/20/211944 [Clonidine Hydrochloride .2 Mg ] , (Reported) Entered as Reported by: MIKY CAMPBELL on 05/22/192115 [Meloxicam 15 Mg Tabs] , (Reported) Entered as Reported by: MIKY CAMPBELL on 05/22/192115 [Metoprolol Tartrate 100 Mg Tab] , (Reported) Entered as Reported by: MIKY CAMPBELL on 05/22/191929 [Olanzapine 10 Mg Tabs] , (Reported) Entered as Reported by: MIKY CAMPBELL on 05/22/192115 [Oxcarbazepine 300 Mg Tabs] , (Reported) Entered as Reported by: MIKY CAMPBELL on 05/22/192115 Review of Systems Constitutional: see HPI Musculoskeletal: see HPI Past [place]vf[place]a-[place]-Godgqv Hx Patient Social History Tobacco Use?: No Substance use?: No Alcohol Use?: No Pt feels they are or have been: No Immunizations Up To Date Tetanus Booster (TDap): Unknown PED Vaccines UTD: Yes First/Initial COVID19 Vaccinat: Moderna 01/2021 Second COVID19 Vaccination [place]: Moderna 01/2021 Third COVID19 Vaccination Date: 01/2021 Seasonal Allergies Seasonal Allergies: No Past Medical History Surgery/Hospitalization HX: Cardiac, Stroke Surgeries: Yes (PACER/DEFIB 2014; DEFIB PLACED 05/10/19. 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 No Pertinent Family Hx SOCIAL HISTORY: -OCCASIONAL ETOH -HX OF IV METH USE, CLAIMS NO USE SINCE 2015 -QUIT SMOKING SEVERAL YEARS AGO Physical Exam Vital Signs Vital Signs - First Documented 11/23/21 04:36 Temp 36.7 Pulse 79 Resp 16 B/P (MAP) 161/127 (138) Pulse Ox 96 O2 Delivery Room Air Capillary Refill : Height, Weight, BMI Height: 5'3.00" Weight: 234lbs. 0oz. 106.975269cc; 45.00 BMI Method:Stated General Appearance: WD/WN, no apparent distress Ankles: left ankle soft tissue tenderness (Soft tissue swelling overlying, no erythema warmth appreciated. Minimal tenderness appreciated.) Progress/Results/Core Measures Results/Orders Vital Signs/I&O 11/23/21 04:36 Temp 36.7 Pulse 79 Resp 16 B/P (MAP) 161/127 (138) Pulse Ox 96 O2 Delivery Room Air Blood Pressure Mean: 138 Departure Communication (Admissions) Patient likely bumped her left posterior ankle with minimal swelling noted to be present. She is on Eliquis. patient reassured. Blood pressure rechecked. Patient instructed to continue medication as directed and recheck tomorrow morning. PCP follow-up as needed Impression Primary Impression: Left ankle swelling Disposition: HOME, SELF-CARE Condition: Stable Departure-Patient Inst. Decision time for Depature: 05:08 Referrals: BROWN NGUYEN APRN (PCP/Family) Primary Care Physician Patient Instructions: Contusion (DC) Add. Discharge Instructions: You were evaluated in the ER for swelling over your left Achilles tendon. This is likely due to a contusion from a minor injury while on Eliquis. Take out Tylenol as needed for pain. Continue home medications and recheck blood pressure later this morning. Follow-up with PCP for further management of blood pressure if elevated. All discharge instructions reviewed with patient and/or family. Voiced understanding. MOIZ MARLEY DO Nov 23, 2021 05:09
[2021-11-23] MEDS ORDERED: cloNIDine 0.2 MG (CATAPRES) TAB PO ONE (05:15)
[2021-11-23 05:18] VITALS: BP 161/127
== END 2021-11-23 05:17 | disposition home or self-care (01) ==
LOC: EDUNIT# 04:19 → ER FS 04:21
DX: M25.472 Effusion, left ankle (principal); I12.9 Hypertensive chronic kidney disease with stage 1 through stage 4 chronic kidney disease, or unspecified chronic kidney disease; N18.9 Chronic kidney disease, unspecified; F41.9 Anxiety disorder, unspecified; F31.9 Bipolar disorder, unspecified; E66.9 Obesity, unspecified; Z87.891 Personal history of nicotine dependence; Z90.710 Acquired absence of both cervix and uterus; Z86.711 Personal history of pulmonary embolism; Z86.718 Personal history of other venous thrombosis and embolism; Z86.73 Personal history of transient ischemic attack (TIA), and cerebral infarction without residual deficits; Z79.01 Long term (current) use of anticoagulants; Z79.899 Other long term (current) drug therapy
CPT/HCPCS: 99283

== ENCOUNTER 2021-11-26 21:04 | Emergency (ER) | payer MEDICARE, MEDICAID ==
--- NOTE | 2021-11-26 21:10 | ED Fall/Injury ---
General Stated Complaint: FALL,KNEE/ARM PAIN History of Present Illness Date Seen by Provider: Nov 26, 2021 Time Seen by Provider: 21:10 Initial Comments 31-year-old female presents following a fall. Patient reports she is going on the stairs when her shoe caught and she fell. She fell about 2 stairs landing on her elbows. She complains of pain in her elbows. She has some minimal discomfort across her lower belly but mainly in her elbows. She has full range of motion. She has a small abrasion on her right elbow. Her right elbow hurts worse than her left. She has no obvious deformity Allergies and Home Medications Allergies Coded Allergies: JIA Inhibitors (Verified Allergy, Severe, 05/22/19) ARB-Angiotensin Receptor Antagonist (Verified Allergy, Severe, 05/22/19) amoxicillin (Verified Allergy, Unknown, 05/28/21) baclofen (Unverified Allergy, Unknown, 05/22/19) ON H&P clavulanic acid (Verified Allergy, Unknown, 05/28/21) phenazopyridine (Unverified Allergy, Unknown, 05/22/19) ON H&P Patient Home Medication List Home Medication List Reviewed: Yes Albuterol Sulfate (Rx-Proair) 8 Gm Hfa.aer.ad, 2 PUFF INH Q6H PRN for SHORTNESS OF BREATH, (Reported) Entered as Reported by: BROWN SCHULER on 03/21/15 1434 Amlodipine Besylate (Amlodipine Besylate) 10 Mg Tablet, 10 MG PO DAILY, (Reported) Entered as Reported by: TUNG HELTON on 07/23/15 0737 Apixaban (Eliquis) 5 Mg Tablet, 5 MG PO BID Prescribed by: RALPH DELCID on 11/01/18 1856 Azelastine HCl (Azelastine HCl) 137 Mcg/0.137 Ml [place].pump, 137 MCG NS BID Prescribed by: MOUNIKA GARCIA on 06/24/21 0101 Biotin (Biotin) 5,000 Mcg Tab.rapdis, (Reported) Entered as Reported by: MIKY CAMPBELL on 05/22/192116 Clindamycin HCl (Clindamycin HCl) 300 Mg Capsule, 300 MG PO Q8H Prescribed by: MOIZ MARLEY on 09/20/21 194 Cyclobenzaprine HCl (Cyclobenzaprine HCl) 10 Mg Tablet, 10 MG PO Q8H PRN for SPASMS Prescribed by: ALPESH RAMOSVENSTAMAYA on 08/21/21 0435 Diphenoxylate HCl/Atropine (Lomotil 2.5-0.025 mg Tablet) 1 Each Tablet, 1 EACH PO BID PRN for DIARRHEA Prescribed by: ORESTES VELASCO on 11/29/19 2309 Epinephrine (Epinephrine) 0.3 Mg/0.3 Ml Auto.injct, 0.3 MG IJ PRN Prescribed by: MOUNIKA GARCIA on 05/28/21 0932 Famotidine (Famotidine) 20 Mg Tablet, (Reported) Entered as Reported by: TALISHA CELIS on 08/05/18 181 Hydrocodone/Acetaminophen (Hydrocodone-Acetamin 5-325 mg) 1 Each Tablet, 1 TAB PO Q4H PRN for PAIN-MODERATE (5-7) Prescribed by: MOIZ MARLEY on 03/24/21 1217 Metoprolol Tartrate (Metoprolol Tartrate) 50 Mg Tablet, 50 MG PO BID Prescribed by: FELECIA FORTUNE on 07/24/15 0841 Ondansetron (Ondansetron Odt) 4 Mg Tab.rapdis, 4 MG PO Q6H PRN for NAUSEA/VOMITING Prescribed by: EDISON CHAMBERLAIN on 06/26/21 0957 Ropinirole HCl (Ropinirole HCl) 0.5 Mg Tablet, (Reported) Entered as Reported by: TALISHA CELIS on 08/05/18 181 Sacubitril/Valsartan (Entresto 24 mg-26 mg Tablet) 1 Each Tablet, (Reported) Entered as Reported by: TALISHA CELIS on 08/05/181809 Tramadol HCl (Tramadol HCl) 50 Mg Tablet, 50 MG PO Q4H PRN for PAIN-MILD (1-4) Prescribed by: MOIZ MARLEY on 09/20/21 194 [Clonidine Hydrochloride .2 Mg ] , (Reported) Entered as Reported by: MIKY CAMPBELL on 05/22/192115 [Meloxicam 15 Mg Tabs] , (Reported) Entered as Reported by: MIKY CAMPBELL on 05/22/192115 [Metoprolol Tartrate 100 Mg Tab] , (Reported) Entered as Reported by: MIKY CAMPBELL on 05/22/191929 [Olanzapine 10 Mg Tabs] , (Reported) Entered as Reported by: MIKY CAMPBELL on 05/22/192115 [Oxcarbazepine 300 Mg Tabs] , (Reported) Entered as Reported by: MIKY CAMPBELL on 05/22/192115 Review of Systems Review of Systems Constitutional: No chills, No fever Eyes: No Symptoms Reported Ears, Nose, Mouth, Throat: no symptoms reported Respiratory: no symptoms reported Cardiovascular: no symptoms reported Gastrointestinal: no symptoms reported Genitourinary: no symptoms reported Musculoskeletal: see HPI Skin: see HPI Psychiatric/Neurological: No Symptoms Reported Physical Exam Vital Signs Vital Signs - First Documented 11/26/21 21:07 Temp 35.9 Pulse 69 Resp 18 B/P (MAP) 144/125 (131) Pulse Ox 98 O2 Delivery Room Air Capillary Refill : Height, Weight, BMI Height: '" Weight: lbs. oz. kg; BMI Method: General Appearance: WD/WN, no apparent distress HEENT: PERRL/EOMI Neck: supple, normal inspection Cardiovascular: normal peripheral pulses, regular rate, rhythm Respiratory: lungs clear, normal breath sounds Gastrointestinal: non tender, soft Back: normal inspection Extremities: normal range of motion, normal inspection, normal capillary refill, other (Minimal tenderness bilateral elbow) Neurologic/Psychiatric: alert, normal mood/affect, oriented x 3 Skin: other (Very small superficial abrasion right elbow) [place] Coma Score Best Eye Response: (4) Open Spontaneously Best Verbal Response: (5) Oriented Best Motor Response: (6) Obeys Commands Progress/Results/Core Measures Results/Orders My Orders Orders - VINITA RICHARD DO Elbow 2 View Bilateral (11/26/21 21:10) Vital Signs/I&O 11/26/21 21:07 Temp 35.9 Pulse 69 Resp 18 B/P (MAP) 144/125 (131) Pulse Ox 98 O2 Delivery Room Air Progress Progress Note : Progress Note Patient with negative x-ray of her bilateral elbows. Patient with contusions. Discussed with her iznz-unf-rujvxmu treatment such as topical lidocaine, Tylenol and ibuprofen. Patient was stable discharged home Diagnostic Imaging Diagonstic Imaging: Xray Plain Films/CT/US/NM/MRI: elbow Comments Date of Exam:11/26/21 ELBOW 2 VIEW BILATERAL EXAMINATION: Right elbow radiographs, 2 views. Left elbow radiographs, 2 views. COMPARISON: None. HISTORY: 31-year-old female, fall. Bilateral elbow pain. FINDINGS: There is no identified acute fracture. There is no elbow joint dislocation. There is no elbow joint effusion. The joint spaces are well preserved. There is no radiopaque foreign body. IMPRESSION: Unremarkable radiographs of the right and left elbows. Departure Impression Primary Impression: Fall (on) (from) other stairs and steps, initial encounter Additional Impressions: Left elbow contusion Qualified Codes: S50.02XA - Contusion of left elbow, initial encounter Contusion of right elbow, initial encounter Disposition: HOME, SELF-CARE Condition: Stable Departure-Patient Inst. Patient Instructions: Minor Contusion ED Add. Discharge Instructions: 4% topical lidocaine with menthol to affected area as needed for Ice to the affected areas as needed Sgbf-aij-klbodjk pain medication such as Tylenol as needed VINITA RICHARD DO Nov 26, 2021 21:10
--- NOTE | 2021-11-26 21:26 | Diagnostic Imaging Report ---
EXAMINATION: Right elbow radiographs, 2 views. Left elbow radiographs, 2 views. COMPARISON: None. HISTORY: 31-year-old female, fall. Bilateral elbow pain. FINDINGS: There is no identified acute fracture. There is no elbow joint dislocation. There is no elbow joint effusion. The joint spaces are well preserved. There is no radiopaque foreign body. IMPRESSION: Unremarkable radiographs of the right and left elbows. Dictated by: Dictated on workstation # [id number]
[2021-11-26 21:36] VITALS: BP 144/125
== END 2021-11-26 21:37 | disposition home or self-care (01) ==
LOC: EDUNIT# 21:04 → ER FS 21:05
DX: S50.02XA Contusion of left elbow, initial encounter (principal); S50.01XA Contusion of right elbow, initial encounter; Z79.01 Long term (current) use of anticoagulants; W10.8XXA Fall (on) (from) other stairs and steps, initial encounter

== ENCOUNTER 2021-12-01 18:25 | Emergency (ER) | payer MEDICARE, MEDICAID ==
[~2021-12-01] VITALS: Ht 160 cm; Wt 110.0 kg
--- NOTE | 2021-12-01 18:48 | ED General ---
General Chief Complaint: Cough/Cold/Flu Symptoms Stated Complaint: CP,RUNNING NOSE Nursing Triage Note: Farzana has presented to ER with cc of cough, headache, body aches, and exposure to covid. Source of Information: Patient Exam Limitations: No Limitations History of Present Illness Date Seen by Provider: Dec 01, 2021 Time Seen by Provider: 18:32 Initial Comments 31-year-old female with past medical history of nonischemic cardiomyopathy, AICD in place, hypertension, takes Eliquis for previous atrial thrombus coming in due to 1 day of mild constant throbbing headache in the front of her head as well as general body aches. She is concerned she has COVID because her brother who she has been around a lot was recently diagnosed with influenza B as well as COVID. Denies any cough, shortness of breath, nausea, vomiting, diarrhea, abdominal pain, dysuria, fever, chills, weakness, numbness, or any other concerns. She has a baseline amount of chest pain that she deals with almost daily, she says it is mild today. Allergies and Home Medications Allergies Coded Allergies: JIA Inhibitors (Verified Allergy, Severe, 05/22/19) ARB-Angiotensin Receptor Antagonist (Verified Allergy, Severe, 05/22/19) amoxicillin (Verified Allergy, Unknown, 05/28/21) baclofen (Unverified Allergy, Unknown, 05/22/19) ON H&P clavulanic acid (Verified Allergy, Unknown, 05/28/21) phenazopyridine (Unverified Allergy, Unknown, 05/22/19) ON H&P Patient Home Medication List Home Medication List Reviewed: Yes Albuterol Sulfate (Rx-Proair) 8 Gm Hfa.aer.ad, 2 PUFF INH Q6H PRN for SHORTNESS OF BREATH, (Reported) Entered as Reported by: BROWN SCHULER on 03/21/15 1434 Amlodipine Besylate (Amlodipine Besylate) 10 Mg Tablet, 10 MG PO DAILY, (Reported) Entered as Reported by: TUNG HELTON on 07/23/15 0737 Apixaban (Eliquis) 5 Mg Tablet, 5 MG PO BID Prescribed by: RALPH DELCID on 11/01/18 1856 Azelastine HCl (Azelastine HCl) 137 Mcg/0.137 Ml [place].pump, 137 MCG NS BID Prescribed by: MOUNIKA GARCIA on 06/24/21 0101 Biotin (Biotin) 5,000 Mcg Tab.rapdis, (Reported) Entered as Reported by: MIKY CAMPBELL on 05/22/192116 Clindamycin HCl (Clindamycin HCl) 300 Mg Capsule, 300 MG PO Q8H Prescribed by: MOIZ MARLEY on 09/20/21 194 Cyclobenzaprine HCl (Cyclobenzaprine HCl) 10 Mg Tablet, 10 MG PO Q8H PRN for SPASMS Prescribed by: ALPESH BARBOZA on 08/21/21 0435 Diphenoxylate HCl/Atropine (Lomotil 2.5-0.025 mg Tablet) 1 Each Tablet, 1 EACH PO BID PRN for DIARRHEA Prescribed by: ORESTES VELASCO on 11/29/19 230 Epinephrine (Epinephrine) 0.3 Mg/0.3 Ml Auto.injct, 0.3 MG IJ PRN Prescribed by: MOUNIKA GARCIA on 05/28/21 0932 Famotidine (Famotidine) 20 Mg Tablet, (Reported) Entered as Reported by: TALISHA CELIS on 08/05/181810 Hydrocodone/Acetaminophen (Hydrocodone-Acetamin 5-325 mg) 1 Each Tablet, 1 TAB PO Q4H PRN for PAIN-MODERATE (5-7) Prescribed by: MOIZ MARLEY on 03/24/21 1217 Metoprolol Tartrate (Metoprolol Tartrate) 50 Mg Tablet, 50 MG PO BID Prescribed by: FELECIA FORTUNE on 07/24/15 0841 Ondansetron (Ondansetron Odt) 4 Mg Tab.rapdis, 4 MG PO Q6H PRN for NAUSEA/VOMITING Prescribed by: EDISON CHAMBERLAIN on 06/26/21 0957 Ropinirole HCl (Ropinirole HCl) 0.5 Mg Tablet, (Reported) Entered as Reported by: TALISHA CELIS on 08/05/181809 Sacubitril/Valsartan (Entresto 24 mg-26 mg Tablet) 1 Each Tablet, (Reported) Entered as Reported by: TALISHA CELIS on 08/05/181809 Tramadol HCl (Tramadol HCl) 50 Mg Tablet, 50 MG PO Q4H PRN for PAIN-MILD (1-4) Prescribed by: MOIZ MARLEY on 09/20/211944 [Clonidine Hydrochloride .2 Mg ] , (Reported) Entered as Reported by: MIKY CAMPBELL on 05/22/192115 [Meloxicam 15 Mg Tabs] , (Reported) Entered as Reported by: MIKY CAMPBELL on 05/22/192115 [Metoprolol Tartrate 100 Mg Tab] , (Reported) Entered as Reported by: MIKY CAMPBELL on 05/22/191929 [Olanzapine 10 Mg Tabs] , (Reported) Entered as Reported by: MIKY CAMPBELL on 05/22/192115 [Oxcarbazepine 300 Mg Tabs] , (Reported) Entered as Reported by: MIKY CAMPBELL on 05/22/192115 Review of Systems Review of Systems Constitutional: chills; No fever; malaise EENTM: No blurred vision Respiratory: No cough, No short of breath Cardiovascular: chest pain Gastrointestinal: No abdominal pain, No diarrhea, No nausea, No vomiting Genitourinary: no symptoms reported; No dysuria, No frequency, No hematuria Musculoskeletal: No joint pain; muscle stiffness Skin: no symptoms reported Psychiatric/Neurological: No Symptoms Reported Hematologic/Lymphatic: No Symptoms Reported Immunological/Allergic: no symptoms reported All Other Systems Reviewed Negative Unless Noted: Yes Past Xtmakyq-Yaooxr-Pfijjm Hx Patient Social History Tobacco Use?: No Use of E-Cig and/or Vaping dev: No Substance use?: No Alcohol Use?: No Pt feels they are or have been: No Immunizations Up To Date Tetanus Booster (TDap): Unknown PED Vaccines UTD: Yes First/Initial COVID19 Vaccinat: Moderna 01/2021 Second COVID19 Vaccination Adair: 01/2021 Third COVID19 Vaccination Date: 01/2021 Seasonal Allergies Seasonal Allergies: No Past Medical History Surgery/Hospitalization HX: Cardiac, Stroke Surgeries: Yes (PACER/DEFIB 2014; DEFIB PLACED 05/10/19. 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 0oz. 106.683372lt; 42.00 BMI Method:Stated General Appearance: No Apparent Distress, WD/WN Eyes: Bilateral Eye Normal Inspection HEENT: PERRL/EOMI, Normal ENT Inspection, Pharynx Normal Neck: Full Range of Motion, Normal Inspection, Non Tender, Supple Respiratory: Chest Non Tender, Lungs Clear, Normal Breath Sounds, No Accessory Muscle Use, No Respiratory Distress Cardiovascular: Regular Rate, Rhythm, No Edema, Normal Peripheral Pulses Gastrointestinal: Normal Bowel Sounds, Non Tender, Soft; No Distended, No Guarding Back: Normal Inspection, No CVA Tenderness, No Vertebral Tenderness Extremity: Normal Capillary Refill, Normal Inspection, Normal Range of Motion, Non Tender, No Calf Tenderness, No Pedal Edema Neurologic/Psychiatric: Alert, No Motor/Sensory Deficits, Normal Mood/Affect Skin: Normal Color, Warm/Dry Lymphatic: No Adenopathy Progress/Results/Core Measures Suspected Sepsis SIRS Temperature: Pulse: 67 Respiratory Rate: 20 Laboratory Tests 12/01/21 18:38: White Blood Count 5.8 Blood Pressure 179 /102 Mean: 127 Laboratory Tests 12/01/21 18:38: Creatinine 2.34H, INR Comment 1.0, Platelet Count 341, Total Bilirubin 0.4 Results/Orders Lab Results Laboratory Tests Test 12/01/21 18:35 12/01/21 18:38 Range/Units White Blood Count 5.8 4.3-11.0 10^3/uL Red Blood Count 5.24 H 3.80-5.11 10^6/uL Hemoglobin 15.1 11.5-16.0 g/dL Hematocrit 46 35-52 % Mean Corpuscular Volume 89 80-99 fL Mean Corpuscular Hemoglobin 29 25-34 pg Mean Corpuscular Hemoglobin Concent 33 32-36 g/dL Red Cell Distribution Width 14.7 H 10.0-14.5 % Platelet Count 341 130-400 10^3/uL Mean Platelet Volume 8.9 L 9.0-12.2 fL Immature Granulocyte % (Auto) 0 % Neutrophils (%) (Auto) 57 42-75 % Lymphocytes (%) (Auto) 30 12-44 % Monocytes (%) (Auto) 11 0-12 % Eosinophils (%) (Auto) 1 0-10 % Basophils (%) (Auto) 1 0-10 % Neutrophils # (Auto) 3.3 1.8-7.8 X 10^3 Lymphocytes # (Auto) 1.7 1.0-4.0 X 10^3 Monocytes # (Auto) 0.6 0.0-1.0 X 10^3 Eosinophils # (Auto) 0.1 0.0-0.3 10^3/uL Basophils # (Auto) 0.1 0.0-0.1 10^3/uL Immature Granulocyte # (Auto) 0.0 0.0-0.1 10^3/uL Prothrombin Time 13.7 12.2-14.7 SEC INR Comment 1.0 0.8-1.4 Activated Partial Thromboplast Time 28 24-35 SEC Sodium Level 138 135-145 MMOL/L Potassium Level 4.0 3.6-5.0 MMOL/L Chloride Level 102 98-107 MMOL/L Carbon Dioxide Level 24 21-32 MMOL/L Anion Gap 12 5-14 MMOL/L Blood Urea Nitrogen 20 H 7-18 MG/DL Creatinine 2.34 H 0.60-1.30 MG/DL Estimat Glomerular Filtration Rate 29 BUN/Creatinine Ratio 9 Glucose Level 74 70-105 MG/DL Calcium Level 9.1 8.5-10.1 MG/DL Corrected Calcium 8.9 8.5-10.1 MG/DL Total Bilirubin 0.4 0.1-1.0 MG/DL Aspartate Amino Transf (AST/SGOT) 18 5-34 U/L Alanine Aminotransferase (ALT/SGPT) 16 0-55 U/L Alkaline Phosphatase 74 40-136 U/L Troponin I < 0.30 <0.30 NG/ML Pro-B-Type Natriuretic Peptide 500.2 H <75.0 PG/ML Total Protein 7.4 6.4-8.2 GM/DL Albumin 4.3 3.2-4.5 GM/DL My Orders Orders - MATY KHAN MD Cbc With Automated Diff (12/01/21 18:35) Chest 1 View Ap/Pa Only (12/01/21 18:35) Ekg Tracing (12/01/21 18:35) Comprehensive Metabolic Panel (12/01/21 18:35) Protime With Inr (12/01/21 18:35) Partial Thromboplastin Time (12/01/21 18:35) O2 (12/01/21 18:35) Monitor-Rhythm Ecg Trace Only (12/01/21 18:35) Ed Iv/Invasive Line Start (12/01/21 18:35) Troponin I Fs (12/01/21 18:35) Probnp Fs (12/01/21 18:35) Coronavirus Sars-Cov-2 So 2019 (12/01/21 18:35) Influenza A & B Antigens (12/01/21 19:14) Vital Signs/I&O 12/01/21 18:34 Temp 36.6 Pulse 67 Resp 20 B/P (MAP) 179/102 (127) Pulse Ox 99 O2 Delivery Room Air Capillary Refill : Blood Pressure Mean: 127 Progress Note : Progress Note 31-year-old female with above history coming in due to headache, body aches, and has been exposed to COVID and influenza B. ABCs were intact and vitals were stable on presentation. She is very well-appearing, smiling on exam. Says her chest discomfort is very mild and is less than her normal chest discomfort actually. EKG similar to her baseline. Portable chest x-ray ordered and interpreted by me showing no obvious pneumonia or pneumothorax, and cardiac silhouette stable. An IV was placed and basic labs were obtained including cardiac biomarkers. Troponin is negative. Very low suspicion for ACS given the story. She has not missed any doses of her anticoagulation and I have a very low suspicion for pulmonary embolism. Flu test is negative and COVID is pending at this time. Likely this is a culprit given her sibling has this since she has been around him a lot. I believe she is stable for discharge with outpatient follow-up. She was sent home with strict return precautions. ECG Initial ECG Impression Date: Dec 01, 2021 Initial ECG Impression Time: 18:32 Initial ECG Rate: 70 Initial ECG Rhythm: Normal Sinus Comment Narrow QRS, normal axis, T wave flattening in the anterior leads which overall appears similar to prior EKGs Diagnostic Imaging Diagonstic Imaging: Xray (chest) Comments [facility] [place] [place] NAME: SAL PRIEST [facility] REC#: [id number] PT STATUS: REG ER : 1990 PHYSICIAN: MATY KHAN MD ADMIT DATE: 12/01/21/ER FS Draft Date of Exam:12/01/21 CHEST 1 VIEW AP/PA ONLY EXAMINATION: Chest radiograph, portable AP view. DATE: 12/01/2021 6:48 PM INDICATION: 31-year-old female, chest pain. COVID exposure. COMPARISON: November 16, 2021. FINDINGS: There is a left-sided cardiac assist device with leads. Heart size and mediastinal contours are unchanged. There is no identified pneumothorax. There is no large pleural effusion. There is no identified focal airspace consolidation. IMPRESSION: No identified acute cardiopulmonary abnormality. Dictated on workstation # [id number] Dict: 12/01/21 1849 Trans: 12/01/21 1907 [facility] [id number] Interpreted by: SVEN KNOTT MD Electronically signed by: Departure Impression Primary Impression: Person under investigation for COVID-19 Additional Impression: Viral syndrome Disposition: HOME, SELF-CARE Condition: Stable Departure-Patient Inst. Decision time for Depature: 19:24 Referrals: BROWN NGUYEN APRN (PCP/Family) Primary Care Physician Patient Instructions: COVID-19 ED Add. Discharge Instructions: You were seen in the emergency department for headache and general body aches. It is very likely you have COVID since your sibling had it. Unfortunately our test in [place] has been broken and we have to send a Covid test off, so this will come back in the next 24 to 48 hours. Take Tylenol as needed for body aches. He can also take oaki-spf-xovifjx cold and flu medicine. Please follow- up with your regular doctor in the next couple days if you are not feeling better. Work/School Note: Work Release Form Date Seen in the Emergency Department: Dec 01, 2021 Return to Work: Dec 03, 2021 Restrictions: Return-No Fever (24hrs) MATY KHAN MD Dec 01, 2021 18:48
[2021-12-01 18:57] LABS: WHITE BLOOD COUNT 5.8 10^3/uL (4.3-11.0)
[2021-12-01 18:58] LABS: BASOPHILS % (AUTO) 1 % (0-10); EOSINOPHILS % (AUTO) 1 % (0-10); HEMATOCRIT 46 % (35-52); HEMOGLOBIN 15.1 g/dL (11.5-16.0); LYMPHOCYTES % (AUTO) 30 % (12-44); MEAN CORPUSCULAR HEMOGLOBIN 29 pg (25-34); MEAN CORPUSCULAR HGB CONC 33 g/dL (32-36); MEAN CORPUSCULAR VOLUME 89 fL (80-99); MEAN PLATELET VOLUME 8.9 fL (9.0-12.2); MONOCYTES % (AUTO) 11 % (0-12); NEUTROPHILS % (AUTO) 57 % (42-75); PLATELET COUNT 341 10^3/uL (130-400); PROTHROMBIN TIME PATIENT 13.7 SEC (12.2-14.7)
[2021-12-01 18:59] LABS: BASOPHILS # (AUTO) 0.1 10^3/uL (0.0-0.1); EOSINOPHILS # (AUTO) 0.1 10^3/uL (0.0-0.3); LYMPHOCYTES # (AUTO) 1.7 X 10^3 (1.0-4.0); MONOCYTES # (AUTO) 0.6 X 10^3 (0.0-1.0); NEUTROPHILS # (AUTO) 3.3 X 10^3 (1.8-7.8)
--- NOTE | 2021-12-01 19:07 | Diagnostic Imaging Report ---
EXAMINATION: Chest radiograph, portable AP view. DATE: 12/01/2021 6:48 PM INDICATION: 31-year-old female, chest pain. COVID exposure. COMPARISON: November 16, 2021. FINDINGS: There is a left-sided cardiac assist device with leads. Heart size and mediastinal contours are unchanged. There is no identified pneumothorax. There is no large pleural effusion. There is no identified focal airspace consolidation. IMPRESSION: No identified acute cardiopulmonary abnormality. Dictated by: Dictated on workstation # [id number]
[2021-12-01 19:20] LABS: CREATININE SERUM 2.34 MG/DL (0.60-1.30)
[2021-12-01 19:21] LABS: ALBUMIN 4.3 GM/DL (3.2-4.5); BILIRUBIN,TOTAL 0.4 MG/DL (0.1-1.0); CALCIUM 9.1 MG/DL (8.5-10.1); TOTAL PROTEIN 7.4 GM/DL (6.4-8.2)
[2021-12-01 19:29] VITALS: BP 153/91
== END 2021-12-01 19:31 | disposition home or self-care (01) ==
LOC: EDUNIT# 18:25 → ER FS 18:27
DX: U07.1 COVID-19 (principal); I10 Essential (primary) hypertension; K21.9 Gastro-esophageal reflux disease without esophagitis; F41.9 Anxiety disorder, unspecified; F31.9 Bipolar disorder, unspecified; E66.9 Obesity, unspecified; Z68.41 Body mass index [BMI] 40.0-44.9, adult; Z79.899 Other long term (current) drug therapy; Z79.01 Long term (current) use of anticoagulants
CPT/HCPCS: 36415; 71045; 80053; 83880; 84484; 85025; 85610; 85730; 87635; 87804; 93005

== ENCOUNTER 2021-12-03 19:53 | Emergency (ER) | payer MEDICARE, MEDICAID ==
[~2021-12-03] VITALS: Ht 160 cm; Wt 106.5 kg
[2021-12-03 20:13] VITALS: BP 179/97
[2021-12-03] MEDS ORDERED: NS IV 1000 ML 1,000 ML IV SCH (20:30)
[2021-12-03] MEDS ORDERED: fentaNYL INJ 100 MCG/2 ML AMP IVP STA (20:34)
[2021-12-03] MEDS ORDERED: RT-ALBUTEROL HFA 8.5 GM INHALER IH STA (20:34)
--- NOTE | 2021-12-03 20:45 | ED General ---
General Chief Complaint: Abdominal/GI Problems Stated Complaint: COVID+,LT SIDE PAIN Nursing Triage Note: pt arrives per POV w/ c/o left flank pain. Pt tested 3 days ago for Covid, and was positive, though hospital was unable to contact patient until today. Source of Information: Patient, Old Records History of Present Illness Date Seen by Provider: Dec 03, 2021 Time Seen by Provider: 20:04 Initial Comments 31-year-old female presenting with complaints of bilateral flank pain and lower chest wall pain. She has been coughing for several days with cough productive of thick phlegm. She recently was around her brother who had Covid and influenza B. She was here on the fourth and was tested for Covid at that time. She had a positive test result come back today and they have been trying to reach her to let her know. She came in tonight because she was continuing to have this pain in her sides and lower chest wall. It is worse when she coughs. She denies any fever or chills but has been having a headache. She has some nausea from congestion drainage. She has not been having vomiting, diarrhea, pain with urination, blood in her urine, blood in her stools, abdominal pain. She has been using an inhaler at home but states that it is almost out and she needs a refill. She is also very anxious and worried that her kidneys are shutting down and that she is going to as she has had a previous experience where she had coded and was brought back. Timing/Duration: 3-4 Days Severity: Moderate Modifying Factors: worse with Movement (Coughing and movement) Associated Systoms: Chest Pain (Lower chest wall pain especially with coughing ), Cough; No Diaphoresis, No Fever/Chills; Headaches, Loss of Appetite, Malaise; No Nausea/Vomiting, No Rash, No Seizure; Shortness of Air; No Syncope, No Weakness Allergies and Home Medications Allergies Coded Allergies: JIA Inhibitors (Verified Allergy, Severe, 05/22/19) ARB-Angiotensin Receptor Antagonist (Verified Allergy, Severe, 05/22/19) amoxicillin (Verified Allergy, Unknown, 05/28/21) baclofen (Unverified Allergy, Unknown, 05/22/19) ON H&P clavulanic acid (Verified Allergy, Unknown, 05/28/21) phenazopyridine (Unverified Allergy, Unknown, 05/22/19) ON H&P Patient Home Medication List Home Medication List Reviewed: Yes Albuterol Sulfate (Rx-Proair) 8 Gm Hfa.aer.ad, 2 PUFF INH Q6H PRN for SHORTNESS OF BREATH, (Reported) Entered as Reported by: BROWN SCHULER on 03/21/15 1434 Amlodipine Besylate (Amlodipine Besylate) 10 Mg Tablet, 10 MG PO DAILY, (Reported) Entered as Reported by: TUNG HELTON on 07/23/15 0737 Apixaban (Eliquis) 5 Mg Tablet, 5 MG PO BID Prescribed by: RALPH DELCID on 11/01/18 1856 Azelastine HCl (Azelastine HCl) 137 Mcg/0.137 Ml [place].pump, 137 MCG NS BID Prescribed by: MOUNIKA GARCIA on 06/24/21 0101 Biotin (Biotin) 5,000 Mcg Tab.rapdis, (Reported) Entered as Reported by: MIKY CAMPBELL on 05/22/19 2117 Clindamycin HCl (Clindamycin HCl) 300 Mg Capsule, 300 MG PO Q8H Prescribed by: MOIZ MARLEY on 09/20/21 1944 Cyclobenzaprine HCl (Cyclobenzaprine HCl) 10 Mg Tablet, 10 MG PO Q8H PRN for SPASMS Prescribed by: ALPESH BARBOZA on 08/21/21 0435 Diphenoxylate HCl/Atropine (Lomotil 2.5-0.025 mg Tablet) 1 Each Tablet, 1 EACH PO BID PRN for DIARRHEA Prescribed by: ORESTES VELASCO on 11/29/19 2309 Epinephrine (Epinephrine) 0.3 Mg/0.3 Ml Auto.injct, 0.3 MG IJ PRN Prescribed by: MOUNIKA GARCIA on 05/28/21 0932 Famotidine (Famotidine) 20 Mg Tablet, (Reported) Entered as Reported by: TALISHA CELIS on 08/05/18 1811 Hydrocodone/Acetaminophen (Hydrocodone-Acetamin 5-325 mg) 1 Each Tablet, 1 TAB PO Q4H PRN for PAIN-MODERATE (5-7) Prescribed by: MOIZ MARLEY on 03/24/21 1217 Hydrocodone/Acetaminophen (Hydrocodone-Acetamin 5-325 mg) 1 Each Tablet, 1 TAB PO Q6H PRN for PAIN-SEVERE (8-10) Prescribed by: EDISON Mcghee ENYART on 12/03/212158 Metoprolol Tartrate (Metoprolol Tartrate) 50 Mg Tablet, 50 MG PO BID Prescribed by: FELECIA FORTUNE on 07/24/15 0841 Ondansetron (Ondansetron Odt) 4 Mg Tab.rapdis, 4 MG PO Q6H PRN for NAUSEA/V OMITING Prescribed by: EDISON BROWNRT on 06/26/21 0957 Ondansetron (Ondansetron Odt) 4 Mg Tab.rapdis, 4 MG PO Q6H PRN for NAUSEA/VOMITING Prescribed by: EDISON UMAÑAYART on 12/03/212158 Ropinirole HCl (Ropinirole HCl) 0.5 Mg Tablet, (Reported) Entered as Reported by: TALISHA CELIS on 08/05/181809 Sacubitril/Valsartan (Entresto 24 mg-26 mg Tablet) 1 Each Tablet, (Reported) Entered as Reported by: TALISHA CELIS on 08/05/181809 Tramadol HCl (Tramadol HCl) 50 Mg Tablet, 50 MG PO Q4H PRN for PAIN-MILD (1-4) Prescribed by: MOIZ MARLEY on 09/20/211944 [Clonidine Hydrochloride .2 Mg ] , (Reported) Entered as Reported by: MIKY CAMPBELL on 05/22/192115 [Meloxicam 15 Mg Tabs] , (Reported) Entered as Reported by: MKIY CAMPBELL on 05/22/192115 [Metoprolol Tartrate 100 Mg Tab] , (Reported) Entered as Reported by: MIKY CAMPBELL on 05/22/191929 [Olanzapine 10 Mg Tabs] , (Reported) Entered as Reported by: MIKY CAMPBELL on 05/22/192115 [Oxcarbazepine 300 Mg Tabs] , (Reported) Entered as Reported by: MIKY CAMPBELL on 05/22/192115 Review of Systems Review of Systems Constitutional: see HPI EENTM: nose congestion; No epistaxis Respiratory: cough, phlegm, short of breath; No stridor, No wheezing Cardiovascular: see HPI; No edema Gastrointestinal: see HPI Genitourinary: No dysuria, No frequency, No hematuria Musculoskeletal: muscle pain (Generalized muscle body pain worse in the bilateral flanks and lower chest wall) Skin: No rash Psychiatric/Neurological: Headache Hematologic/Lymphatic: Blood Clots (Taking Eliquis) Past Yzbevra-Xmldjj-Vqzdak Hx Patient Social History Tobacco Use?: No Substance use?: No Alcohol Use?: No Pt feels they are or have been: No Immunizations Up To Date Tetanus Booster (TDap): Unknown PED Vaccines UTD: Yes First/Initial COVID19 Vaccinat: 2020 Second COVID19 Vaccination [place]: 2020 Third COVID19 Vaccination Date: 2020 Seasonal Allergies Seasonal Allergies: No Past Medical History Surgery/Hospitalization HX: Cardiac, Stroke Surgeries: Yes (PACER/DEFIB 2014; DEFIB PLACED 05/10/19. 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 0oz. 106.435506wm; 41.00 BMI Method:Stated General Appearance: Anxious, Obese HEENT: Pharynx Normal, Moist Mucous Membranes Neck: Full Range of Motion, Normal Inspection, Non Tender, Supple Respiratory: Normal Breath Sounds, No Accessory Muscle Use, No Respiratory Distress, Other (Tenderness to bilateral lower chest wall) Cardiovascular: Regular Rate, Rhythm, Normal Peripheral Pulses Gastrointestinal: Normal Bowel Sounds, No Pulsatile Mass, Non Tender, Soft Rectal: Deferred Back: No CVA Tenderness Extremity: Normal Capillary Refill, Normal Inspection, No Pedal Edema Neurologic/Psychiatric: Alert, Oriented x3 Skin: Normal Color, Warm/Dry Progress/Results/Core Measures Suspected Sepsis SIRS Temperature: Pulse: 79 Respiratory Rate: 22 Laboratory Tests 12/03/21 20:35: White Blood Count 5.9 Blood Pressure 179 /97 Mean: 124 Laboratory Tests 12/03/21 20:35: Creatinine 2.01H, INR Comment 0.9, Platelet Count 306, Total Bilirubin 0.2 Results/Orders Lab Results Laboratory Tests Test 12/03/21 20:35 12/03/21 21:30 Range/Units White Blood Count 5.9 4.3-11.0 10^3/uL Red Blood Count 4.67 3.80-5.11 10^6/uL Hemoglobin 13.3 11.5-16.0 g/dL Hematocrit 41 35-52 % Mean Corpuscular Volume 87 80-99 fL Mean Corpuscular Hemoglobin 28 25-34 pg Mean Corpuscular Hemoglobin Concent 33 32-36 g/dL Red Cell Distribution Width 14.9 H 10.0-14.5 % Platelet Count 306 130-400 10^3/uL Mean Platelet Volume 9.0 9.0-12.2 fL Neutrophils (%) (Auto) 32 L 42-75 % Lymphocytes (%) (Auto) 55 H 12-44 % Monocytes (%) (Auto) 12 0-12 % Eosinophils (%) (Auto) 1 0-10 % Basophils (%) (Auto) 1 0-10 % Neutrophils # (Auto) 1.9 1.8-7.8 X 10^3 Lymphocytes # (Auto) 3.3 1.0-4.0 X 10^3 Monocytes # (Auto) 0.7 0.0-1.0 X 10^3 Eosinophils # (Auto) 0.1 0.0-0.3 10^3/uL Basophils # (Auto) 0.1 0.0-0.1 10^3/uL Prothrombin Time 12.1 L 12.2-14.7 SEC INR Comment 0.9 0.8-1.4 Activated Partial Thromboplast Time 29 24-35 SEC Sodium Level 141 135-145 MMOL/L Potassium Level 4.0 3.6-5.0 MMOL/L Chloride Level 108 H 98-107 MMOL/L Carbon Dioxide Level 23 21-32 MMOL/L Anion Gap 10 5-14 MMOL/L Blood Urea Nitrogen 14 7-18 MG/DL Creatinine 2.01 H 0.60-1.30 MG/DL Estimat Glomerular Filtration Rate 35 BUN/Creatinine Ratio 7 Glucose Level 108 H 70-105 MG/DL Calcium Level 8.3 L 8.5-10.1 MG/DL Corrected Calcium 8.6 8.5-10.1 MG/DL Total Bilirubin 0.2 0.1-1.0 MG/DL Aspartate Amino Transf (AST/SGOT) 17 5-34 U/L Alanine Aminotransferase (ALT/SGPT) 30 0-55 U/L Alkaline Phosphatase 70 40-136 U/L Troponin I < 0.30 <0.30 NG/ML C-Reactive Protein 2.13 H <0.50 MG/DL Total Protein 6.5 6.4-8.2 GM/DL Albumin 3.6 3.2-4.5 GM/DL Urine Color YELLOW Urine Clarity SL CLOUDY Urine pH 6.0 5-9 Urine Specific [place] >=1.030 1.016-1.022 Urine Protein 3+ H NEGATIVE Urine Glucose (UA) NEGATIVE NEGATIVE Urine Ketones NEGATIVE NEGATIVE Urine Nitrite NEGATIVE NEGATIVE Urine Bilirubin NEGATIVE NEGATIVE Urine Urobilinogen 0.2 < = 1.0 MG/DL Urine Leukocyte Esterase NEGATIVE NEGATIVE Urine RBC (Auto) TRACE-I H NEGATIVE Urine RBC 0-2 /HPF Urine WBC 2-5 /HPF Urine Squamous Epithelial Cells 25-50 H /HPF Urine Crystals NONE /LPF Urine Bacteria MODERATE H /HPF Urine Casts PRESENT /LPF Urine Hyaline Casts 2-5 H /LPF Urine Mucus SMALL H /LPF Urine Culture Indicated NO My Orders Orders - EDISON CHAMBERLAIN MD Monitor-Rhythm Ecg Trace Only (12/03/21 20:29) Ed Iv/Invasive Line Start (12/03/21 20:29) Cbc With Automated Diff (12/03/21 20:29) Comprehensive Metabolic Panel (12/03/21 20:29) Crp Fs (12/03/21 20:29) Troponin I Fs (12/03/21 20:29) Protime With Inr (12/03/21 20:29) Partial Thromboplastin Time (12/03/21 20:29) Ns Iv 1000 Ml (Sodium Chloride 0.9%) (12/03/21 20:30) Chest 1 View Ap/Pa Only (12/03/21 20:29) Ua Culture If Indicated (12/03/21 20:29) Fentanyl Inj (Sublimaze Injection) (12/03/21 20:34) Dexamethasone Injection (Decadron Inje (12/03/21 20:34) Albuterol Inhaler (Albuterol) (12/03/21 20:34) Nursing Communication (Order) (12/03/21 20:34) Ondansetron Injection (Zofran Injectio (12/03/21 21:09) Rx-Hydrocodone/Apap 5-325 Mg (Rx-Vicodin (12/03/21 22:00) Rx-Ondansetron Po (Rx-Zofran Po) (12/03/21 22:00) Vital Signs/I&O 12/03/21 12/03/21 20:13 21:31 Temp 37.0 Pulse 79 Resp 22 B/P (MAP) 179/97 (124) Capillary Refill : Less Than 3 Seconds Blood Pressure Mean: 124 Progress Note #1: Progress Note Advised patient that she does have Covid positive result and reassured her that her oxygen saturation looks good 98 to 99% on room air. Her pain is likely due to muscle and chest wall from coughing. She can try adding an plain guaifenesin such as Mucinex or plain Robitussin. Encourage fluids and hydration. Refill her albuterol inhaler. Check chest x-ray to see if she would need a course of Zithromax or an antibiotic to help with possible pneumonia on top of her Covid Progress Note #2: Progress Note Chest x-ray appears stable from the fourth. She has no acute infiltrate that is developed. Her labs appear stable without acute significant change other than she does have some mild improvement in her creatinine which was at 2.3 and now is down to 2.0 Progress Note #3: Progress Note Urinalysis does not show infection. She does have several skin cells and some contamination but no signs of definite infection in the urine itself. Will discharge to home on a few hydrocodone for severe pain. Zofran for nausea from the nasal drainage. Encouraged to use plain guaifenesin so it would not affect her blood pressure to help thin out her mucus and secretions. Follow-up through the clinic for continued concerns. Use the inhaler for cough and congestion. Humidifier or vaporizer at the bedside. Diagnostic Imaging Diagonstic Imaging: Xray Plain Films/CT/US/NM/MRI: chest Comments [facility], [place] NAME: SAL PRIEST [facility] REC#: [id number] PT STATUS: REG ER : 1990 PHYSICIAN: EDISON CHAMBERLAIN MD ADMIT DATE: 12/03/21/ER FS Draft Date of Exam:12/03/21 CHEST 1 VIEW AP/PA ONLY CLINICAL INDICATIONS: Patient COVID positive with cough and bilateral lower lung pain. EXAM: Portable chest x-ray upright view. COMPARISON: Chest x-ray dated 11/2021 FINDINGS: Lungs/pleura: Lungs are clear. There is no pneumothorax. There is no pleural effusion. Mediastinum: Unremarkable. Pulmonary vasculature: Unremarkable. Heart: Heart size is within normal limits. Cardiac pacemaker/AICD again seen overlying left chest. Bones/extrathoracic soft tissue: Unremarkable. IMPRESSION: Stable chest x-ray exam with no interval radiographic evidence of acute cardiopulmonary process. Dictated on workstation # [id number] Dict: 12/03/212104 Trans: 12/03/212109 CVB [id number] Interpreted by: NIYAH GABRIEL MD Electronically signed by: Reviewed: Reviewed by Me Departure Impression Primary Impression: Upper respiratory tract infection due to COVID-19 virus Additional Impressions: Strain of muscle and tendon of back wall of thorax, initial encounter Cough in adult Disposition: 01 HOME, SELF-CARE Condition: Stable Departure-Patient Inst. Decision time for Depature: 21:56 Referrals: BROWN NGUYEN APRN (PCP/Family) Primary Care Physician Patient Instructions: Cough, Adult ED, COVID-19 ED, Muscle Strain ED Add. Discharge Instructions: Make sure you stay well-hydrated and drink plenty of fluids. Use your inhaler with spacer to help with cough and shortness of breath. Use 2 puffs from the inhaler with spacer every 4 hours as needed for cough and shortness of breath. You could use plain guaifenesin which is in plain Robitussin or plain Mucinex to help loosen and thin your cough. This medicine draws moisture into the congestion and makes it easier to cough up so that you are not having to cough so hard. Use a humidifier or vaporizer at the bedside to help with congestion and cough. You can try using the pain medicine to help with chest wall pain and check back with your regular provider about continued concerns. Continue to quarantine and isolate while you have Covid symptoms All discharge instructions reviewed with patient and/or family. Voiced understanding. Scripts Ondansetron (Ondansetron Odt) 4 Mg Tab.rapdis 4 MG PO Q6H PRN for NAUSEA/VOMITING for 5 Days, #20 TAB 0 Refills Prov: EDISON CHAMBERLAIN MD 12/03/21 Hydrocodone/Acetaminophen (Hydrocodone-Acetamin 5-325 mg) 1 Each Tablet 1 TAB PO Q6H PRN for PAIN-SEVERE (8-10) for 3 Days, #12 TAB 0 Refills Prov: EDISON CHAMBERLAIN MD 12/03/21 EDISON CHAMBERLAIN MD Dec 03, 2021 20:45
[2021-12-03 20:56] LABS: BASOPHILS # (AUTO) 0.1 10^3/uL (0.0-0.1); BASOPHILS % (AUTO) 1 % (0-10); EOSINOPHILS # (AUTO) 0.1 10^3/uL (0.0-0.3); EOSINOPHILS % (AUTO) 1 % (0-10); HEMATOCRIT 41 % (35-52); HEMOGLOBIN 13.3 g/dL (11.5-16.0); LYMPHOCYTES # (AUTO) 3.3 X 10^3 (1.0-4.0); LYMPHOCYTES % (AUTO) 55 % (12-44); MEAN CORPUSCULAR HEMOGLOBIN 28 pg (25-34); MEAN CORPUSCULAR HGB CONC 33 g/dL (32-36); MEAN CORPUSCULAR VOLUME 87 fL (80-99); MONOCYTES # (AUTO) 0.7 X 10^3 (0.0-1.0); MONOCYTES % (AUTO) 12 % (0-12); NEUTROPHILS # (AUTO) 1.9 X 10^3 (1.8-7.8); NEUTROPHILS % (AUTO) 32 % (42-75); PLATELET COUNT 306 10^3/uL (130-400); WHITE BLOOD COUNT 5.9 10^3/uL (4.3-11.0)
[2021-12-03 21:03] LABS: INR 0.9 (0.8-1.4); PROTHROMBIN TIME PATIENT 12.1 SEC (12.2-14.7)
[2021-12-03] MEDS ORDERED: ONDANSETRON 4 MG/2 ML (SDV) Z0FRAN IVP STA (21:09)
--- NOTE | 2021-12-03 21:10 | Diagnostic Imaging Report ---
CLINICAL INDICATIONS: Patient COVID positive with cough and bilateral lower lung pain. EXAM: Portable chest x-ray upright view. COMPARISON: Chest x-ray dated 11/2021 FINDINGS: Lungs/pleura: Lungs are clear. There is no pneumothorax. There is no pleural effusion. Mediastinum: Unremarkable. Pulmonary vasculature: Unremarkable. Heart: Heart size is within normal limits. Cardiac pacemaker/AICD again seen overlying left chest. Bones/extrathoracic soft tissue: Unremarkable. IMPRESSION: Stable chest x-ray exam with no interval radiographic evidence of acute cardiopulmonary process. Dictated by: Dictated on workstation # [id number]
[2021-12-03 21:14] LABS: ALANINE AMINOTRANSFERASE 30 U/L (0-55); ALBUMIN 3.6 GM/DL (3.2-4.5); ALKALINE PHOSPHATASE 70 U/L (40-136); BILIRUBIN,TOTAL 0.2 MG/DL (0.1-1.0); BUN/CREATININE RATIO 7; CALCIUM 8.3 MG/DL (8.5-10.1); CARBON DIOXIDE 23 MMOL/L (21-32); CHLORIDE 108 MMOL/L (98-107); CREATININE SERUM 2.01 MG/DL (0.60-1.30); GFR ESTIMATED 35; GLUCOSE 108 MG/DL (70-105); SODIUM 141 MMOL/L (135-145); TOTAL PROTEIN 6.5 GM/DL (6.4-8.2)
[2021-12-03 21:45] LABS: BILIRUBIN,URINE NEGATIVE (NEGATIVE); COLOR,URINE YELLOW; GLUCOSE, URINE (UA) NEGATIVE (NEGATIVE); KETONES,URINE NEGATIVE (NEGATIVE); LEUKOCYTE ESTERASE ,URINE NEGATIVE (NEGATIVE); NITRITE,URINE NEGATIVE (NEGATIVE); PROTEIN,URINE 3+ (NEGATIVE)
[2021-12-03 21:51] LABS: CLARITY,URINE SL CLOUDY
[2021-12-03 21:52] LABS: BACTERIA,URINE MODERATE /HPF; RBC,URINE 0-2 /HPF; SQUAMOUS EPITHELIAL CELL,UR 25-50 /HPF
[2021-12-03] MEDS ORDERED: ONDA4TAB11 PO (21:59)
[2021-12-03] MEDS ORDERED: ACHD5005 PO (21:59)
[2021-12-03] MEDS ORDERED: RX-ONDANSETRON 4 MG ODT (ZOFRAN) PPK #4 PO PRN (22:00)
== END 2021-12-03 22:30 | disposition home or self-care (01) ==
LOC: EDUNIT# 19:53 → ER FS 19:54
DX: S29.012A Strain of muscle and tendon of back wall of thorax, initial encounter (principal); J06.9 Acute upper respiratory infection, unspecified; I10 Essential (primary) hypertension; E66.9 Obesity, unspecified; F41.9 Anxiety disorder, unspecified; F31.9 Bipolar disorder, unspecified; K21.9 Gastro-esophageal reflux disease without esophagitis; Z68.41 Body mass index [BMI] 40.0-44.9, adult; Z86.73 Personal history of transient ischemic attack (TIA), and cerebral infarction without residual deficits; Z79.899 Other long term (current) drug therapy; Z79.01 Long term (current) use of anticoagulants; X58.XXXA Exposure to other specified factors, initial encounter
CPT/HCPCS: 36415; 71045; 80053; 81000; 84484; 85025; 85610; 85730; 86141; 93041

== ENCOUNTER 2021-12-04 19:03 | Emergency (ER) | payer MEDICARE, MEDICAID ==
[~2021-12-04] VITALS: Ht 160 cm; Wt 106.6 kg
--- NOTE | 2021-12-04 19:31 | ED General ---
General Stated Complaint: COVID POSITIVE,DEFIBRILLATOR WENT OFF X2 Source of Information: Patient Exam Limitations: No Limitations History of Present Illness Date Seen by Provider: Dec 04, 2021 Time Seen by Provider: 19:29 Initial Comments Patient is a 31-year-old female with a history of nonischemic cardiomyopathy, AICD, hypertension who presents ED for abnormal sound on her defibrillator. She states she was sitting at home and heard a buzzing sound. She denies of any shock. She has no current complaints at this time such as chest pain, shortness of breath, vomiting or diarrhea. Patient states she was diagnosed with Covid a few days ago at [facility]. She reports a mild cough but denies feeling short of breath. No vomiting or diarrhea. She states she feels good however just concerned for this buzzing sound. She states her AICD was interrogated yesterday. Patient in no acute distress. Patient sees Dr. Patterson Allergies and Home Medications Allergies Coded Allergies: JIA Inhibitors (Verified Allergy, Severe, 05/22/19) ARB-Angiotensin Receptor Antagonist (Verified Allergy, Severe, 05/22/19) amoxicillin (Verified Allergy, Unknown, 05/28/21) baclofen (Unverified Allergy, Unknown, 05/22/19) ON H&P clavulanic acid (Verified Allergy, Unknown, 05/28/21) phenazopyridine (Unverified Allergy, Unknown, 05/22/19) ON H&P Patient Home Medication List Home Medication List Reviewed: Yes Albuterol Sulfate (Rx-Proair) 8 Gm Hfa.aer.ad, 2 PUFF INH Q6H PRN for SHORTNESS OF BREATH, (Reported) Entered as Reported by: BROWN SCHULER on 03/21/15 1434 Amlodipine Besylate (Amlodipine Besylate) 10 Mg Tablet, 10 MG PO DAILY, (Reported) Entered as Reported by: TUNG HELTON on 07/23/15 0737 Apixaban (Eliquis) 5 Mg Tablet, 5 MG PO BID Prescribed by: RALPH DELCID on 11/01/18 1856 Azelastine HCl (Azelastine HCl) 137 Mcg/0.137 Ml [place].pump, 137 MCG NS BID Prescribed by: MOUNIKA GARCIA on 06/24/21 0101 Biotin (Biotin) 5,000 Mcg Tab.rapdis, (Reported) Entered as Reported by: MIKY CAMPBELL on 05/22/192116 Clindamycin HCl (Clindamycin HCl) 300 Mg Capsule, 300 MG PO Q8H Prescribed by: MOIZ MARLEY on 09/20/21 194 Cyclobenzaprine HCl (Cyclobenzaprine HCl) 10 Mg Tablet, 10 MG PO Q8H PRN for SPASMS Prescribed by: ALPESH Wright ROVENSTAMAYA on 08/21/21 0435 Diphenoxylate HCl/Atropine (Lomotil 2.5-0.025 mg Tablet) 1 Each Tablet, 1 EACH PO BID PRN for DIARRHEA Prescribed by: ORESTES VELASCO on 11/29/19 230 Epinephrine (Epinephrine) 0.3 Mg/0.3 Ml Auto.injct, 0.3 MG IJ PRN Prescribed by: MOUNIKA GARCIA on 05/28/21 0932 Famotidine (Famotidine) 20 Mg Tablet, (Reported) Entered as Reported by: TALISHA CELIS on 08/05/181810 Hydrocodone/Acetaminophen (Hydrocodone-Acetamin 5-325 mg) 1 Each Tablet, 1 TAB PO Q4H PRN for PAIN-MODERATE (5-7) Prescribed by: MOIZ MARLEY on 03/24/21 1217 Hydrocodone/Acetaminophen (Hydrocodone-Acetamin 5-325 mg) 1 Each Tablet, 1 TAB PO Q6H PRN for PAIN-SEVERE (8-10) Prescribed by: EDISON Mcghee ENYART on 12/03/212158 Metoprolol Tartrate (Metoprolol Tartrate) 50 Mg Tablet, 50 MG PO BID Prescribed by: FELECIA PATTERSON on 07/24/15 0841 Ondansetron (Ondansetron Odt) 4 Mg Tab.rapdis, 4 MG PO Q6H PRN for NAUSEA/VOMITING Prescribed by: EDISON Mcghee ENYART on 06/26/21 0957 Ondansetron (Ondansetron Odt) 4 Mg Tab.rapdis, 4 MG PO Q6H PRN for NAUSEA/VOMITING Prescribed by: EDISON Mcghee ENYART on 12/03/21 215 Ropinirole HCl (Ropinirole HCl) 0.5 Mg Tablet, (Reported) Entered as Reported by: TALISHA CELIS on 08/05/181809 Sacubitril/Valsartan (Entresto 24 mg-26 mg Tablet) 1 Each Tablet, (Reported) Entered as Reported by: TALISHA CELIS on 08/05/181809 Tramadol HCl (Tramadol HCl) 50 Mg Tablet, 50 MG PO Q4H PRN for PAIN-MILD (1-4) Prescribed by: MOIZ MARLEY on 09/20/211944 [Clonidine Hydrochloride .2 Mg ] , (Reported) Entered as Reported by: MIKY CAMPBELL on 05/22/192115 [Meloxicam 15 Mg Tabs] , (Reported) Entered as Reported by: MIKY CAMPBELL on 05/22/192115 [Metoprolol Tartrate 100 Mg Tab] , (Reported) Entered as Reported by: MIYK CAMPBELL on 05/22/191929 [Olanzapine 10 Mg Tabs] , (Reported) Entered as Reported by: MIKY CAMPBELL on 05/22/192115 [Oxcarbazepine 300 Mg Tabs] , (Reported) Entered as Reported by: MIKY CAMPBELL on 05/22/192115 Review of Systems Review of Systems Constitutional: No chills, No diaphoresis EENTM: No blurred vision, No double vision Respiratory: No cough, No dyspnea on exertion, No hemoptysis, No orthopnea Cardiovascular: No chest pain, No edema, No Hx of Intervention Gastrointestinal: No abdominal pain, No diarrhea, No nausea, No vomiting Genitourinary: No see HPI, No dysuria, No frequency Musculoskeletal: No back pain, No joint pain Skin: No change in color, No change in hair/nails All Other Systems Reviewed Negative Unless Noted: Yes Past Ssiebtu-Sutxhq-Vvtjwq Hx Immunizations Up To Date Tetanus Booster (TDap): Unknown PED Vaccines UTD: Yes First/Initial COVID19 Vaccinat: 2020 Second COVID19 Vaccination Adair: 2020 Third COVID19 Vaccination Date: 2020 Seasonal Allergies Seasonal Allergies: No Past Medical History Surgery/Hospitalization HX: Cardiac, Stroke Surgeries: Yes (PACER/DEFIB 2014; DEFIB PLACED 05/10/19. 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 0oz. [id number]; 41.00 BMI Method:Stated General Appearance: No Apparent Distress, WD/WN Eyes: Bilateral Eye Normal Inspection, Bilateral Eye PERRL, Bilateral Eye EOMI HEENT: PERRL/EOMI, TMs Normal, Normal ENT Inspection, Pharynx Normal Neck: Full Range of Motion, Normal Inspection, Non Tender, Supple Respiratory: Chest Non Tender, Lungs Clear, Normal Breath Sounds, No Accessory Muscle Use, No Respiratory Distress Cardiovascular: Regular Rate, Rhythm, No Edema, No Gallop, No JVD Gastrointestinal: Normal Bowel Sounds, No Organomegaly, No Pulsatile Mass Rectal: Normal Exam, Normal Rectal Tone Back: Normal Inspection, No CVA Tenderness Neurologic/Psychiatric: Alert, Oriented x3, No Motor/Sensory Deficits, Normal Mood/Affect Progress/Results/Core Measures Suspected Sepsis SIRS Temperature: Pulse: Respiratory Rate: Blood Pressure / Mean: Results/Orders My Orders Orders - MATY BLANCHARD Ekg Tracing (12/04/21 19:33) Vital Signs/I&O 12/04/21 12/04/21 19:17 20:09 Temp 36.8 Pulse 60 62 Resp 20 20 B/P (MAP) 171/114 (133) 166/125 Pulse Ox 97 100 O2 Delivery Room Air Room Air Capillary Refill : ECG EKG : Comment Sinus rhythm, LVH by voltage, 61 bpm, QRS duration 92 MS, QTc 459 MS. Departure Communication (Admissions) Patient in no acute distress. She has no current complaints besides mild cough. Diagnosed with Covid a few days ago was seen at [facility]. Patient has been using an inhaler with improvement. Patient vital signs stable patient heard a buzzing sound around 1845 this evening. She denies of any shock from her defibrillator. She has no chest pain, shortness of breath, abdominal pain. . EKG shows sinus rhythm. Spikes noted on the monitor. No significant ST changes. Interrogation of the [employer] defibrillator was performed. Received a call regarding the interrogation without any acute abnormality. The buzzing sound patient is experiencing is due to the SVC coil. This alarm was not shut off as she had an issue on September 04, 2021 regarding the SVC coil. She states she has been hearing a buzzing sound previously but not as loud compared today. She had no abnormalities shown on her report. Battery is full and will need to be replaced in 2 years. Defibrillator is functioning properly and may continue hearing a buzzing sound. This was discussed with patient. Follow-up with Dr. Patterson in the office next week. She states this can be fixed in the office. Patient denies of any chest pain during these events. Lab work was held. Patient safe for discharge. Impression Primary Impression: Implantable defibrillator reprogramming/check Disposition: HOME, SELF-CARE Condition: Stable Departure-Patient Inst. Decision time for Depature: 20:02 Referrals: FELECIA PATTERSON MD, AMANDA S APRN (PCP) Primary Care Physician Patient Instructions: Pacemaker Check MATY BLANCHARD Dec 04, 2021 19:31
[2021-12-04 20:09] VITALS: BP 166/125
== END 2021-12-04 20:09 | disposition home or self-care (01) ==
LOC: EDUNIT# 19:03 → ER 19:05
DX: Z45.018 Encounter for adjustment and management of other part of cardiac pacemaker (principal); I10 Essential (primary) hypertension; K21.9 Gastro-esophageal reflux disease without esophagitis; F41.9 Anxiety disorder, unspecified; F31.9 Bipolar disorder, unspecified; E66.9 Obesity, unspecified; Z68.41 Body mass index [BMI] 40.0-44.9, adult; Z86.73 Personal history of transient ischemic attack (TIA), and cerebral infarction without residual deficits; Z79.01 Long term (current) use of anticoagulants; Z79.899 Other long term (current) drug therapy
CPT/HCPCS: 93005

== ENCOUNTER 2021-12-08 08:51 | Emergency (ER) | payer MEDICARE, MEDICAID ==
[~2021-12-08] VITALS: Ht 162 cm; Wt 120.0 kg
--- NOTE | 2021-12-08 09:43 | ED Cough/URI ---
General Chief Complaint: COVID19 Suspect/Confirmed Stated Complaint: COVID+; LUNG PAIN; NAUSEA; HEADACHE Source: patient Exam Limitations: no limitations History of Present Illness Date Seen by Provider: Dec 08, 2021 Time Seen by Provider: 09:12 Initial Comments Here with report of not feeling well with shortness of breath especially when laying back. She is COVID-positive and has typical symptoms of nausea, headache and shortness of breath with cough. She is approximately day 9. She is complicated by history of stroke and sudden cardiac . She does have history of implanted defibrillator. Reports taking her meds as directed which includes Eliquis. Reports drinking plenty of fluids and states that she is urinating a lot. O2 saturations on arrival upper 90s on room air. Timing/Duration: getting worse, other (9 days) Severity/Quality: moderate, dry cough Prior Episodes/Possible Cause: occasional episodes Associated Symptoms: chest pain/soreness, cough, fever/chills, muscle aches, shortness of breath Allergies and Home Medications Allergies Coded Allergies: JIA Inhibitors (Verified Allergy, Severe, 05/22/19) ARB-Angiotensin Receptor Antagonist (Verified Allergy, Severe, 05/22/19) amoxicillin (Verified Allergy, Unknown, 05/28/21) baclofen (Unverified Allergy, Unknown, 05/22/19) ON H&P clavulanic acid (Verified Allergy, Unknown, 05/28/21) phenazopyridine (Unverified Allergy, Unknown, 05/22/19) ON H&P Patient Home Medication List Home Medication List Reviewed: Yes Albuterol Sulfate (Rx-Proair) 8 Gm Hfa.aer.ad, 2 PUFF INH Q6H PRN for SHORTNESS OF BREATH, (Reported) Entered as Reported by: BROWN SCHULER on 03/21/15 1434 Amlodipine Besylate (Amlodipine Besylate) 10 Mg Tablet, 10 MG PO DAILY, (Reported) Entered as Reported by: TUNG HELTON on 07/23/15 0737 Apixaban (Eliquis) 5 Mg Tablet, 5 MG PO BID Prescribed by: RALPH DELCID on 11/01/18 1856 Azelastine HCl (Azelastine HCl) 137 Mcg/0.137 Ml [place].pump, 137 MCG NS BID Prescribed by: MOUNIKA GARCIA on 06/24/21 0101 Biotin (Biotin) 5,000 Mcg Tab.rapdis, (Reported) Entered as Reported by: MIKY CAMPBELL on 05/22/192116 Clindamycin HCl (Clindamycin HCl) 300 Mg Capsule, 300 MG PO Q8H Prescribed by: MOIZ MARLEY on 09/20/21 194 Cyclobenzaprine HCl (Cyclobenzaprine HCl) 10 Mg Tablet, 10 MG PO Q8H PRN for SPASMS Prescribed by: ALPESH RAMOSVENSTAMAYA on 08/21/21 0435 Diphenoxylate HCl/Atropine (Lomotil 2.5-0.025 mg Tablet) 1 Each Tablet, 1 EACH PO BID PRN for DIARRHEA Prescribed by: ORESTES VELASCO on 11/29/19 230 Epinephrine (Epinephrine) 0.3 Mg/0.3 Ml Auto.injct, 0.3 MG IJ PRN Prescribed by: MOUNIKA GARCIA on 05/28/21 0932 Famotidine (Famotidine) 20 Mg Tablet, (Reported) Entered as Reported by: TALISHA CELIS on 08/05/18 181 Hydrocodone/Acetaminophen (Hydrocodone-Acetamin 5-325 mg) 1 Each Tablet, 1 TAB PO Q4H PRN for PAIN-MODERATE (5-7) Prescribed by: MOIZ MARLEY on 03/24/21 1217 Hydrocodone/Acetaminophen (Hydrocodone-Acetamin 5-325 mg) 1 Each Tablet, 1 TAB PO Q6H PRN for PAIN-SEVERE (8-10) Prescribed by: EDISON Mcghee ENYART on 12/03/21 215 Metoprolol Tartrate (Metoprolol Tartrate) 50 Mg Tablet, 50 MG PO BID Prescribed by: FELECIA FORTUNE on 07/24/15 0841 Ondansetron (Ondansetron Odt) 4 Mg Tab.rapdis, 4 MG PO Q6H PRN for NAUSEA/VOMITING Prescribed by: EDISON Mcghee ENYART on 06/26/21 0957 Ondansetron (Ondansetron Odt) 4 Mg Tab.rapdis, 4 MG PO Q6H PRN for N AUSEA/VOMITING Prescribed by: EDISON Mcghee ENYART on 12/03/21 215 Ropinirole HCl (Ropinirole HCl) 0.5 Mg Tablet, (Reported) Entered as Reported by: TALISHA CELIS on 08/05/181809 Sacubitril/Valsartan (Entresto 24 mg-26 mg Tablet) 1 Each Tablet, (Reported) Entered as Reported by: TALISHA CELIS on 08/05/181809 Tramadol HCl (Tramadol HCl) 50 Mg Tablet, 50 MG PO Q4H PRN for PAIN-MILD (1-4) Prescribed by: MOIZ MARLEY on 09/20/211944 [Clonidine Hydrochloride .2 Mg ] , (Reported) Entered as Reported by: MIKY CAMPBELL on 05/22/192115 [Meloxicam 15 Mg Tabs] , (Reported) Entered as Reported by: MIKY CAMPBELL on 05/22/192115 [Metoprolol Tartrate 100 Mg Tab] , (Reported) Entered as Reported by: MIKY CAMPBELL on 05/22/191929 [Olanzapine 10 Mg Tabs] , (Reported) Entered as Reported by: MIKY CAMPBELL on 05/22/192115 [Oxcarbazepine 300 Mg Tabs] , (Reported) Entered as Reported by: MIKY CAMPBELL on 05/22/192115 Review of Systems Review of Systems Constitutional: see HPI; No chills, No fever; malaise EENTM: nose congestion, throat pain Respiratory: cough, short of breath Cardiovascular: No chest pain, No edema Gastrointestinal: No abdominal pain; nausea, vomiting Genitourinary: no symptoms reported Musculoskeletal: no symptoms reported Skin: no symptoms reported All Other Systems Reviewed Negative Unless Noted: Yes Past Jrcztvb-Xxgnpi-Skrzwl Hx Patient Social History Tobacco Use?: No Substance use?: No Alcohol Use?: No Immunizations Up To Date Tetanus Booster (TDap): Unknown PED Vaccines UTD: Yes First/Initial COVID19 Vaccinat: 2020 Second COVID19 Vaccination Adair: 2020 Third COVID19 Vaccination Date: 2020 Seasonal Allergies Seasonal Allergies: No Past Medical History Surgery/Hospitalization HX: Cardiac hx, stroke pacemaker replacement 3x Surgeries: Yes (PACER/DEFIB 2014; DEFIB PLACED 05/10/19. 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 No Pertinent Family Hx SOCIAL HISTORY: -OCCASIONAL ETOH -HX OF IV METH USE, CLAIMS NO USE SINCE 2016 -QUIT SMOKING SEVERAL YEARS AGO Physical Exam Vital Signs - First Documented 12/08/21 08:55 Temp 36.5 Pulse 70 Resp 16 B/P (MAP) 147/104 (118) Pulse Ox 100 O2 Delivery Room Air Capillary Refill : Height: 5'3.00" Weight: 234lbs. 0oz. 106.217283je; 41.00 BMI Method:Stated General Appearance: WD/WN, no apparent distress HEENT: PERRL/EOMI, pharynx normal Neck: full range of motion, supple Respiratory: lungs clear, normal breath sounds Cardiovascular: regular rate, rhythm, no murmur Gastrointestinal: non tender, soft Extremities: non-tender, normal inspection, no pedal edema, no calf tenderness Neurologic/Psychiatric: alert, oriented x 3 Skin: normal color, warm/dry Focused Exam Lactate Level 12/08/21 10:00: Lactic Acid Level 1.27 Lactic Acid Level Laboratory Tests Test 12/08/21 10:00 Lactic Acid Level 1.27 MMOL/L (0.50-2.00) Progress/Results/Core Measures Suspected Sepsis SIRS Temperature: Pulse: Respiratory Rate: Laboratory Tests 12/08/21 09:35: White Blood Count 7.2 Blood Pressure / Mean: 12/08/21 10:00: Lactic Acid Level 1.27 Laboratory Tests 12/08/21 09:35: Platelet Count 378 12/08/21 10:00: Creatinine 2.03H, Total Bilirubin 0.2 Results/Orders Lab Results Laboratory Tests Test 12/08/21 09:35 12/08/21 10:00 Range/Units White Blood Count 7.2 4.3-11.0 10^3/uL Red Blood Count 5.02 3.80-5.11 10^6/uL Hemoglobin 14.1 11.5-16.0 g/dL Hematocrit 44 35-52 % Mean Corpuscular Volume 87 80-99 fL Mean Corpuscular Hemoglobin 28 25-34 pg Mean Corpuscular Hemoglobin Concent 32 32-36 g/dL Red Cell Distribution Width 14.5 10.0-14.5 % Platelet Count 378 130-400 10^3/uL Mean Platelet Volume 9.0 9.0-12.2 fL Neutrophils (%) (Auto) 38 L 42-75 % Lymphocytes (%) (Auto) 52 H 12-44 % Monocytes (%) (Auto) 7 0-12 % Eosinophils (%) (Auto) 2 0-10 % Basophils (%) (Auto) 1 0-10 % Neutrophils # (Auto) 2.8 1.8-7.8 X 10^3 Lymphocytes # (Auto) 3.8 1.0-4.0 X 10^3 Monocytes # (Auto) 0.5 0.0-1.0 X 10^3 Eosinophils # (Auto) 0.1 0.0-0.3 10^3/uL Basophils # (Auto) 0.1 0.0-0.1 10^3/uL Sodium Level 138 135-145 MMOL/L Potassium Level 3.8 3.6-5.0 MMOL/L Chloride Level 103 98-107 MMOL/L Carbon Dioxide Level 26 21-32 MMOL/L Anion Gap 9 5-14 MMOL/L Blood Urea Nitrogen 17 7-18 MG/DL Creatinine 2.03 H 0.60-1.30 MG/DL Estimat Glomerular Filtration Rate 34 BUN/Creatinine Ratio 8 Glucose Level 111 H 70-105 MG/DL Lactic Acid Level 1.27 0.50-2.00 MMOL/L Calcium Level 8.6 8.5-10.1 MG/DL Corrected Calcium 9.0 8.5-10.1 MG/DL Total Bilirubin 0.2 0.1-1.0 MG/DL Aspartate Amino Transf (AST/SGOT) 17 5-34 U/L Alanine Aminotransferase (ALT/SGPT) 19 0-55 U/L Alkaline Phosphatase 63 40-136 U/L Troponin I < 0.30 <0.30 NG/ML C-Reactive Protein < 0.30 <0.50 MG/DL Pro-B-Type Natriuretic Peptide 405.7 H <75.0 PG/ML Total Protein 6.3 L 6.4-8.2 GM/DL Albumin 3.5 3.2-4.5 GM/DL My Orders Orders - FEDE AMARO MD Cbc With Automated Diff (12/08/21 09:17) Comprehensive Metabolic Panel (12/08/21:17) Fibrin Degradation Products (12/08/21:) Probnp Fs (12/08/21:17) Crp Fs (12/08/21:17) Troponin I Fs (12/08/21 09:17) Ed Iv/Invasive Line Start (12/08/21:17) Ekg Tracing (12/08/21:) Monitor-Rhythm Ecg Trace Only (12/08/21:17) Chest 1 View Ap/Pa Only (12/08/21:17) Blood Culture (12/08/21 09:28) Lactic Acid Analyzer (12/08/21 09:28) Vital Signs/I&O 12/08/21 08:55 Temp 36.5 Pulse 70 Resp 16 B/P (MAP) 147/104 (118) Pulse Ox 100 O2 Delivery Room Air Capillary Refill : Progress Note : Progress Note Seen and evaluated. IV, labs, blood cultures and lactic acid ordered. Chest x- ray and EKG ordered. Monitor patient. Patient did have pacemaker interrogated on the seventh due to a buzzing sound. Pacemaker interrogation did not show any significant abnormalities or events and also shows plenty of battery longevity. 1123: Overall doing very well. No significant findings on chest x-ray. Labs are improved from previous visit of 12/03/2021. She is not hypoxic. She does admit that she was likely a bit anxious and given her past medical history and COVID-positive status, that is certainly understandable. That being said, I th ink she is safe for discharge. I did speak with her mother, Rosemarie, who is her power of bankruptcy attorney. She agrees with discharge home. Discharged home with return precautions. Mother and patient verbalized understanding of instructions and agreement with plan. ECG Initial ECG Impression Date: Dec 08, 2021 Initial ECG Impression Time: 09:01 Initial ECG Rate: 60 Comment Atrial paced rhythm with left ventricular hypertrophy. Normal axis. No evidence of ST elevation NV. Similar to previous of 12/04/2021. Interpreted by me. Diagnostic Imaging Diagonstic Imaging: Xray Plain Films/CT/US/NM/MRI: chest Comments [facility] [place], [place] NAME: SAL [facility]ST [facility] REC#: [id number] PT STATUS: REG ER : 1990 PHYSICIAN: FEDE AMARO MD ADMIT DATE: 12/08/21/ER FS Draft Date of Exam:12/08/21 CHEST 1 VIEW AP/PA ONLY EXAMINATION: Chest, 1 view. HISTORY: SOA, Covid Pos. COMPARISON: 12/03/2021. FINDINGS: Heart size and pulmonary vasculature are normal. The lungs are clear without consolidation, pleural effusion, or pneumothorax. The osseous structures are intact. Left-sided cardiac device is unchanged. IMPRESSION: No acute radiographic abnormality in the chest. Dictated on workstation # [id number] Dict: 12/08/2155 Trans: 12/08/21 0956 [id number] Interpreted by: JULEE BURGER DO Electronically signed by: Departure Impression Primary Impression: COVID-19 virus infection Additional Impression: Anxiety about health Disposition: HOME, SELF-CARE Condition: Improved Departure-Patient Inst. Decision time for Depature: 11:24 Referrals: BROWN NGUYEN APRN (PCP/Family) Primary Care Physician Patient Instructions: COVID-19 Overview, Anxiety, Adult (DC) Add. Discharge Instructions: All discharge instructions reviewed with patient and/or family. Voiced understanding. Continue home medications as previously prescribed. Follow-up with your doctor for recheck and further evaluation and to discuss anxiety. Return for worse pain, fever, vomiting, weakness, breathing problems or other concerns as needed. Copy Copies To 1: ALEX BARRERA MD, TIMOTHY D MD Dec 08, 2021 09:43
--- NOTE | 2021-12-08 09:57 | Diagnostic Imaging Report ---
EXAMINATION: Chest, 1 view. HISTORY: SOA, Covid Pos. COMPARISON: 12/03/2021. FINDINGS: Heart size and pulmonary vasculature are normal. The lungs are clear without consolidation, pleural effusion, or pneumothorax. The osseous structures are intact. Left-sided cardiac device is unchanged. IMPRESSION: No acute radiographic abnormality in the chest. Dictated by: Dictated on workstation # [id number]
[2021-12-08 10:16] LABS: BASOPHILS # (AUTO) 0.1 10^3/uL (0.0-0.1); BASOPHILS % (AUTO) 1 % (0-10); EOSINOPHILS # (AUTO) 0.1 10^3/uL (0.0-0.3); EOSINOPHILS % (AUTO) 2 % (0-10); HEMATOCRIT 44 % (35-52); HEMOGLOBIN 14.1 g/dL (11.5-16.0); LYMPHOCYTES # (AUTO) 3.8 X 10^3 (1.0-4.0); LYMPHOCYTES % (AUTO) 52 % (12-44); MEAN CORPUSCULAR HEMOGLOBIN 28 pg (25-34); MEAN CORPUSCULAR HGB CONC 32 g/dL (32-36); MEAN CORPUSCULAR VOLUME 87 fL (80-99); MONOCYTES # (AUTO) 0.5 X 10^3 (0.0-1.0); MONOCYTES % (AUTO) 7 % (0-12); NEUTROPHILS # (AUTO) 2.8 X 10^3 (1.8-7.8); NEUTROPHILS % (AUTO) 38 % (42-75); PLATELET COUNT 378 10^3/uL (130-400); WHITE BLOOD COUNT 7.2 10^3/uL (4.3-11.0)
[2021-12-08 10:40] LABS: CARBON DIOXIDE 26 MMOL/L (21-32); CHLORIDE 103 MMOL/L (98-107); POTASSIUM 3.8 MMOL/L (3.6-5.0); SODIUM 138 MMOL/L (135-145)
[2021-12-08 10:41] LABS: ALANINE AMINOTRANSFERASE 19 U/L (0-55); ALBUMIN 3.5 GM/DL (3.2-4.5); ALKALINE PHOSPHATASE 63 U/L (40-136); BILIRUBIN,TOTAL 0.2 MG/DL (0.1-1.0); BUN/CREATININE RATIO 8; CALCIUM 8.6 MG/DL (8.5-10.1); CREATININE SERUM 2.03 MG/DL (0.60-1.30); GFR ESTIMATED 34; GLUCOSE 111 MG/DL (70-105); TOTAL PROTEIN 6.3 GM/DL (6.4-8.2)
[2021-12-08 11:30] VITALS: BP 147/104
== END 2021-12-08 11:30 | disposition home or self-care (01) ==
LOC: EDUNIT# 08:51 → ER FS 08:55
DX: U07.1 COVID-19 (principal); I10 Essential (primary) hypertension; K21.9 Gastro-esophageal reflux disease without esophagitis; F41.9 Anxiety disorder, unspecified; F31.9 Bipolar disorder, unspecified; E66.9 Obesity, unspecified; Z68.41 Body mass index [BMI] 40.0-44.9, adult; Z79.899 Other long term (current) drug therapy; Z79.01 Long term (current) use of anticoagulants
CPT/HCPCS: 36415; 71045; 80053; 83605; 83880; 84484; 85025; 85379; 86141; 87040; 93005; 93041

== ENCOUNTER → 2021-12-14 | Outpatient (CLI) | payer MEDICARE, MEDICAID ==
[2021-12-14 14:44] LABS: ALBUMIN 3.7 GM/DL (3.2-4.5); CALCIUM 8.9 MG/DL (8.5-10.1); CREATININE SERUM 2.28 MG/DL (0.60-1.30); PHOSPHORUS 3.7 MG/DL (2.3-4.7); POTASSIUM 4.3 MMOL/L (3.6-5.0)
== END ==
LOC: LAB 14:02
PROVIDERS: ATTEND Internal Medicine
DX: N18.32 Chronic kidney disease, stage 3b (principal)
CPT/HCPCS: 36415; 80069

== ENCOUNTER 2021-12-24 00:34 | Emergency (ER) | payer MEDICARE, MEDICAID ==
[~2021-12-24] VITALS: Ht 160 cm; Wt 104.0 kg
[2021-12-24] MEDS ORDERED: hydrALAZINE (APESOLINE) 20 MG/ML VIAL IV STA (00:45)
[2021-12-24] MEDS ORDERED: fentaNYL INJ 100 MCG/2 ML AMP IVP STA (00:45)
--- NOTE | 2021-12-24 00:52 | ED Chest Pain ---
General Stated Complaint: CHEST PAIN Source: patient, old records History of Present Illness Date Seen by Provider: Dec 24, 2021 Time Seen by Provider: 00:34 Initial Comments 31 yo female presenting with complaint of central chest pain that is a pressure. It has been going on for a few days but felt worse last night. she had elevated blood pressure with the pain tonight and took extra Clonidine 15 min prior to coming to the ED. She has no shortness of breath, nausea, vomiting. She is anxious. She recently had Covid and increased cough and shortness of breath but has been doing better in last week or two. She denies fever or chills. Timing/Duration: 2-3 days Severity/Quality: pressure Location: central Radiation: no radiation Activities at Onset: none Prior CP/Workup: angina, echocardiography, pulmonary embolism Modifying Factors: worse with exercise ASA po MEDICAL DEVICE SALES CONSULTANT: No NTG SL MEDICAL DEVICE SALES CONSULTANT: No Associated Symptoms: No abdominal pain, No back pain, No diaphoresis, No dizziness, No edema, No fatigue, No fever/chills, No headache, No heartburn, No nausea/vomiting, No rash, No shortness of breath, No swelling/lump in chest, No syncope Allergies and Home Medications Allergies Coded Allergies: JIA Inhibitors (Verified Allergy, Severe, 05/22/19) ARB-Angiotensin Receptor Antagonist (Verified Allergy, Severe, 05/22/19) amoxicillin (Verified Allergy, Unknown, 05/28/21) baclofen (Unverified Allergy, Unknown, 05/22/19) ON H&P clavulanic acid (Verified Allergy, Unknown, 05/28/21) phenazopyridine (Unverified Allergy, Unknown, 05/22/19) ON H&P Patient Home Medication List Home Medication List Reviewed: Yes Albuterol Sulfate (Rx-Proair) 8 Gm Hfa.aer.ad, 2 PUFF INH Q6H PRN for SHORTNESS OF BREATH, (Reported) Entered as Reported by: BROWN SCHULER on 03/21/15 1434 Amlodipine Besylate (Amlodipine Besylate) 10 Mg Tablet, 10 MG PO DAILY, (Reported) Entered as Reported by: TUNG HELTON on 07/23/15 0737 Apixaban (Eliquis) 5 Mg Tablet, 5 MG PO BID Prescribed by: RALPH DELCID on 11/01/18 1856 Biotin (Biotin) 5,000 Mcg Tab.rapdis, (Reported) Entered as Reported by: MIKY CAMPBELL on 05/22/192116 Cyclobenzaprine HCl (Cyclobenzaprine HCl) 10 Mg Tablet, 10 MG PO BID PRN for chest wall pain/muscle spasm Prescribed by: EDISON CHAMBERLAIN on 12/24/21 0206 Diphenoxylate HCl/Atropine (Lomotil 2.5-0.025 mg Tablet) 1 Each Tablet, 1 EACH PO BID PRN for DIARRHEA Prescribed by: ORESTES VELASCO on 11/29/19 2309 Epinephrine (Epinephrine) 0.3 Mg/0.3 Ml Auto.injct, 0.3 MG IJ PRN Prescribed by: MOUNIKA GARCIA on 05/28/21 0932 Famotidine (Famotidine) 20 Mg Tablet, (Reported) Entered as Reported by: TALISHA CELIS on 08/05/181810 Metoprolol Tartrate (Metoprolol Tartrate) 50 Mg Tablet, 50 MG PO BID Prescribed by: FELECIA FORTUNE on 07/24/15 0841 Ondansetron (Ondansetron Odt) 4 Mg Tab.rapdis, 4 MG PO Q6H PRN for NAUSEA/VOMITING Prescribed by: EDISON CHAMBERLAIN on 12/03/21 215 Ropinirole HCl (Ropinirole HCl) 0.5 Mg Tablet, (Reported) Entered as Reported by: TALISHA CELIS on 08/05/181809 Sacubitril/Valsartan (Entresto 24 mg-26 mg Tablet) 1 Each Tablet, (Reported) Entered as Reported by: TALISHA CELIS on 08/05/181809 [Clonidine Hydrochloride .2 Mg ] , (Reported) Entered as Reported by: MIKY CAMPBELL on 05/22/192115 [Meloxicam 15 Mg Tabs] , (Reported) Entered as Reported by: MIKY CAMPBELL on 05/22/192115 [Metoprolol Tartrate 100 Mg Tab] , (Reported) Entered as Reported by: MIKY CAMPBELL on 05/22/191929 [Olanzapine 10 Mg Tabs] , (Reported) Entered as Reported by: MIKY CAMPBELL on 05/22/192115 [Oxcarbazepine 300 Mg Tabs] , (Reported) Entered as Reported by: MIKY CAMPBELL on 05/22/192115 Discontinued Medications Azelastine HCl (Azelastine HCl) 137 Mcg/0.137 Ml [place].pump, 137 MCG NS BID Prescribed by: MOUNIKA GARCIA on 06/24/21 010 Clindamycin HCl (Clindamycin HCl) 300 Mg Capsule, 300 MG PO Q8H Prescribed by: MOIZ MARLEY on 09/20/21 194 Cyclobenzaprine HCl (Cyclobenzaprine HCl) 10 Mg Tablet, 10 MG PO Q8H PRN for SPASMS Prescribed by: ALPESH BARBOZA on 08/21/21 0435 Hydrocodone/Acetaminophen (Hydrocodone-Acetamin 5-325 mg) 1 Each Tablet, 1 TAB PO Q4H PRN for PAIN-MODERATE (5-7) Prescribed by: MOIZ MARLEY on 03/24/21 1217 Hydrocodone/Acetaminophen (Hydrocodone-Acetamin 5-325 mg) 1 Each Tablet, 1 TAB PO Q6H PRN for PAIN-SEVERE (8-10) Prescribed by: EDISON CHAMBERLAIN on 12/03/212158 Ondansetron (Ondansetron Odt) 4 Mg Tab.rapdis, 4 MG PO Q6H PRN for NAUSEA/VOMITING Prescribed by: EDISON CHAMBERLAIN on 06/26/21 0957 Tramadol HCl (Tramadol HCl) 50 Mg Tablet, 50 MG PO Q4H PRN for PAIN-MILD (1-4) Prescribed by: MOIZ MARLEY on 09/20/211944 Review of Systems Review of Systems Constitutional: No chills, No fever EENTM: No Symptoms Reported Respiratory: No Symptoms Reported Cardiovascular: See HPI Gastrointestinal: Denies Nausea Genitourinary: Denies Burning Musculoskeletal: no symptoms reported Skin: No rash Psychiatric/Neurological: Anxiety Hematologic/Lymphatic: Blood Clots Past Aiturlf-Bsvekq-Oplfkj Hx Patient Social History Tobacco Use?: No Use of E-Cig and/or Vaping dev: No Substance use?: No Alcohol Use?: No Immunizations Up To Date Tetanus Booster (TDap): Unknown PED Vaccines UTD: Yes First/Initial COVID19 Vaccinat: 2020 Second COVID19 Vaccination [place]: 2020 Third COVID19 Vaccination Date: 2020 Seasonal Allergies Seasonal Allergies: No Past Medical History Surgery/Hospitalization HX: Cardiac hx, stroke pacemaker replacement 3x Surgeries: Yes (PACER/DEFIB 2014; DEFIB PLACED 05/10/19. 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 0oz. [id number]; 45.00 BMI Method:Stated General Appearance: Anxious, Obese HEENT: Pharynx Normal Neck: Full Range of Motion, Normal Inspection, Non Tender, Supple Respiratory: Lungs Clear, Normal Breath Sounds, No Accessory Muscle Use, No Respiratory Distress, Other (tender to palpation chest wall) Cardiovascular: Regular Rate, Rhythm, Normal Peripheral Pulses Gastrointestinal: Normal Bowel Sounds, No Pulsatile Mass, Non Tender, Soft Rectal: Deferred Extremity: Normal Capillary Refill, No Calf Tenderness, No Pedal Edema Neurologic/Psychiatric: Alert, Oriented x3 Skin: Normal Color, Warm/Dry Progress/Results/Core Measures Results/Orders Lab Results Laboratory Tests Test 12/24/21 00:50 Range/Units White Blood Count 9.4 4.3-11.0 10^3/uL Red Blood Count 4.76 3.80-5.11 10^6/uL Hemoglobin 13.5 11.5-16.0 g/dL Hematocrit 43 35-52 % Mean Corpuscular Volume 90 80-99 fL Mean Corpuscular Hemoglobin 28 25-34 pg Mean Corpuscular Hemoglobin Concent 32 32-36 g/dL Red Cell Distribution Width 15.0 H 10.0-14.5 % Platelet Count 357 130-400 10^3/uL Mean Platelet Volume 8.9 L 9.0-12.2 fL Immature Granulocyte % (Auto) 0 % Neutrophils (%) (Auto) 41 L 42-75 % Lymphocytes (%) (Auto) 49 H 12-44 % Monocytes (%) (Auto) 8 0-12 % Eosinophils (%) (Auto) 2 0-10 % Basophils (%) (Auto) 0 0-10 % Neutrophils # (Auto) 3.8 1.8-7.8 X 10^3 Lymphocytes # (Auto) 4.6 H 1.0-4.0 X 10^3 Monocytes # (Auto) 0.7 0.0-1.0 X 10^3 Eosinophils # (Auto) 0.2 0.0-0.3 10^3/uL Basophils # (Auto) 0.0 0.0-0.1 10^3/uL Immature Granulocyte # (Auto) 0.0 0.0-0.1 10^3/uL Prothrombin Time 12.7 12.2-14.7 SEC INR Comment 0.9 0.8-1.4 Activated Partial Thromboplast Time 28 24-35 SEC Sodium Level 137 135-145 MMOL/L Potassium Level 4.0 3.6-5.0 MMOL/L Chloride Level 103 98-107 MMOL/L Carbon Dioxide Level 24 21-32 MMOL/L Anion Gap 10 5-14 MMOL/L Blood Urea Nitrogen 17 7-18 MG/DL Creatinine 2.15 H 0.60-1.30 MG/DL Estimat Glomerular Filtration Rate 30 BUN/Creatinine Ratio 8 Glucose Level 105 70-105 MG/DL Calcium Level 9.0 8.5-10.1 MG/DL Corrected Calcium 9.1 8.5-10.1 MG/DL Magnesium Level 1.9 1.6-2.4 MG/DL Total Bilirubin 0.2 0.1-1.0 MG/DL Aspartate Amino Transf (AST/SGOT) 12 5-34 U/L Alanine Aminotransferase (ALT/SGPT) 8 0-55 U/L Alkaline Phosphatase 61 40-136 U/L Myoglobin 62.5 10.0-92.0 NG/ML Troponin I < 0.30 <0.30 NG/ML Pro-B-Type Natriuretic Peptide 396.3 H <75.0 PG/ML Total Protein 6.7 6.4-8.2 GM/DL Albumin 3.9 3.2-4.5 GM/DL Lipase 37 8-78 U/L My Orders Orders - EDISON CHAMBERLAIN MD Cbc With Automated Diff (12/24/21 00:45) Magnesium (12/24/21 00:45) Chest 1 View Ap/Pa Only (12/24/21 00:45) Ekg Tracing (12/24/21 00:45) Comprehensive Metabolic Panel (12/24/21 00:45) Myoglobin Serum (12/24/21 00:45) Protime With Inr (12/24/21 00:45) Partial Thromboplastin Time (12/24/21 00:45) Monitor-Rhythm Ecg Trace Only (12/24/21 00:45) Ed Iv/Invasive Line Start (12/24/21 00:45) Lipase (12/24/21 00:45) Hydralazine Injection (Apresoline Inject (12/24/21 00:45) Fentanyl Inj (Sublimaze Injection) (12/24/21 00:45) Probnp Fs (12/24/21 00:45) Troponin I Fs (12/24/21 00:45) Orphenadrine Inj (Ed Only) (Norflex Inje (12/24/21 02:00) Medications Given in ED Current Medications Medications Dose Ordered Sig/Mikal Route Start Time Stop Time Status Last Admin Dose Admin Orphenadrine Citrate 60 mg ONCE ONCE IVP 12/24/21 02:00 12/24/21 02:01 DC 12/24/21 01:56 60 MG Vital Signs/I&O 12/24/21 12/24/21 12/24/21 00:38 01:31 02:40 Temp 36.4 Pulse 60 64 67 Resp 17 20 18 B/P (MAP) 169/106 (127) 159/89 145/95 Pulse Ox 99 97 99 O2 Delivery Room Air Room Air Room Air Progress Progress Note #1: Progress Note check labs, CXR and ECG to check for signs of acute coronary syndrome or NE. Try Hydralazine to help with blood pressure and Fentanyl for pain. Progress Note #2: Progress Note Labs all appear stable and no acute significant abnormality. She has chronic renal insufficiency but her creatinine looks a little better tonight at 2.15. Her chest x-ray does not show any acute infiltrate or effusion. Her EKG did not show acute ST elevation. Her troponin is less than 0.3 and considering she has been having pain for a couple of days if this was a heart attack or blockage she should have had an elevation of her Troponin by now. She still has reproducible chest wall pain. Her blood pressure is improving. She gets anxious and starts to cry and hyperventilate when she has pain. Progress Note #3: Progress Note Reviewed with patient and family that labs and test all appeared stable and no sign of acute coronary syndrome or worsening symptoms. Since she had repr oducible chest wall pain will treat with ice alternating with heat. And then a dose of Norflex here. IV and discharged on Flexeril since she has taken that before and tolerated it. Counseled on follow-up and return precautions. Her blood pressure did improve with the pain improving prior to discharge. Initial ECG Impression Date: Dec 24, 2021 Initial ECG Impression Time: 00:33 Initial ECG Rate: 67 Initial ECG Rhythm: Normal Sinus Initial ECG Comparisson: Unchanged Comment Normal sinus rhythm with a heart rate of 67 bpm. Prolonged HI interval of [address] elevation but there is borderline T wave abnormalities in the inferior leads of 2, 3, aVF. She has a QT interval of 422 ms and a QTc interval 446 ms. Overall this appears similar to prior tracings in the system. Diagnostic Imaging Diagonstic Imaging: Xray Plain Films/CT/US/NM/MRI: chest Comments On my review of her 1 view chest x-ray she has no acute infiltrate or effusion. There is cardiomegaly and it appears overall stable from prior images Reviewed: Reviewed by Me Departure Impression Primary Impression: Elevated blood pressure reading Additional Impressions: Central chest pain Chest wall pain Anxiety about health Disposition: 01 HOME, SELF-CARE Condition: Improved Departure-Patient Inst. Decision time for Depature: 02:32 Referrals: BROWN NGUYEN APRN (PCP/Family) Primary Care Physician Patient Instructions: High Blood Pressure ED, Anxiety, Adult ED, Chest Pain, A dult ED Add. Discharge Instructions: Your blood work looks good tonight and no signs of heart attack or new heart damage to be causing your pain. Your lungs are clear and not showing pneumonia. The muscles and chest wall are sore and causing you pain. This can be related to your recent Covid infection and your body still healing from the inflammation and soreness caused by that. When you are in pain or stressed and anxious it will make your blood pressure run higher for you. Continue taking your medicines as prescribed and consider checking with your regular provider about your Buspar (Buspirone) to see if they want to change your dose. Try taking the muscle relaxer to help with chest wall pain. You could alternate ice and heat to your chest wall to help with your pain. Scripts Cyclobenzaprine HCl (Cyclobenzaprine HCl) 10 Mg Tablet 10 MG PO BID PRN for chest wall pain/muscle spasm for 7 Days, #14 TAB 0 Refills Prov: EDISON CHAMBERLAIN MD 12/24/21 EDISON CHAMBERLAIN MD Dec 24, 2021 00:52
[2021-12-24 01:00] LABS: BASOPHILS % (AUTO) 0 % (0-10); EOSINOPHILS % (AUTO) 2 % (0-10); HEMATOCRIT 43 % (35-52); HEMOGLOBIN 13.5 g/dL (11.5-16.0); LYMPHOCYTES % (AUTO) 49 % (12-44); MEAN CORPUSCULAR HEMOGLOBIN 28 pg (25-34); MEAN CORPUSCULAR HGB CONC 32 g/dL (32-36); MEAN CORPUSCULAR VOLUME 90 fL (80-99); MEAN PLATELET VOLUME 8.9 fL (9.0-12.2); MONOCYTES % (AUTO) 8 % (0-12); NEUTROPHILS % (AUTO) 41 % (42-75); PLATELET COUNT 357 10^3/uL (130-400); WHITE BLOOD COUNT 9.4 10^3/uL (4.3-11.0)
[2021-12-24 01:01] LABS: EOSINOPHILS # (AUTO) 0.2 10^3/uL (0.0-0.3); LYMPHOCYTES # (AUTO) 4.6 X 10^3 (1.0-4.0); MONOCYTES # (AUTO) 0.7 X 10^3 (0.0-1.0); NEUTROPHILS # (AUTO) 3.8 X 10^3 (1.8-7.8)
[2021-12-24 01:12] LABS: INR 0.9 (0.8-1.4); PROTHROMBIN TIME PATIENT 12.7 SEC (12.2-14.7)
[2021-12-24 01:20] LABS: ALANINE AMINOTRANSFERASE 8 U/L (0-55); ALBUMIN 3.9 GM/DL (3.2-4.5); ALKALINE PHOSPHATASE 61 U/L (40-136); BILIRUBIN,TOTAL 0.2 MG/DL (0.1-1.0); BUN/CREATININE RATIO 8; CARBON DIOXIDE 24 MMOL/L (21-32); CHLORIDE 103 MMOL/L (98-107); CREATININE SERUM 2.15 MG/DL (0.60-1.30); GFR ESTIMATED 30; GLUCOSE 105 MG/DL (70-105); LIPASE 37 U/L (8-78); MAGNESIUM 1.9 MG/DL (1.6-2.4); SODIUM 137 MMOL/L (135-145); TOTAL PROTEIN 6.7 GM/DL (6.4-8.2)
[2021-12-24] MEDS ORDERED: ORPHENADRINE 60 MG/2 ML (NORFLEX) AMP (ED ONLY) IVP ONE (02:00)
[2021-12-24] MEDS ORDERED: CYCL10TA25 PO (02:06)
[2021-12-24 02:40] VITALS: BP 145/95
--- NOTE | 2021-12-24 06:28 | Diagnostic Imaging Report ---
INDICATION: Chest pain. COMPARISON: 12/08/2021. FINDINGS: Single view of the chest demonstrates stable cardiac enlargement. Lungs are clear. There is no pneumothorax. Pacemaker stable. Osseous structures are age-appropriate. IMPRESSION: Stable cardiac enlargement. Dictated by: Dictated on workstation # [id number]
== END 2021-12-24 02:44 | disposition home or self-care (01) ==
LOC: EDUNIT# 00:34 → ER FS 00:36
DX: I10 Essential (primary) hypertension (principal); R07.89 Other chest pain; E66.9 Obesity, unspecified; K21.9 Gastro-esophageal reflux disease without esophagitis; F31.9 Bipolar disorder, unspecified; F41.9 Anxiety disorder, unspecified; Z68.42 Body mass index [BMI] 45.0-49.9, adult; Z79.899 Other long term (current) drug therapy; Z79.01 Long term (current) use of anticoagulants
CPT/HCPCS: 36415; 71045; 80053; 83690; 83735; 83874; 83880; 84484; 85025; 85610; 85730; 93005; 93041

== ENCOUNTER 2022-02-08 21:01 | Emergency (ER) | payer MEDICARE, MEDICAID ==
[~2022-02-08] VITALS: Ht 160 cm; Wt 106.5 kg
[~2022-02-08 21:01] MED LIST changes: +FLUC100T10 PO; -FLUC100T6 PO; -FLUC150T2 PO; +FLUC150T41 PO
[2022-02-08 21:37] LABS: BASOPHILS # (AUTO) 0.1 10^3/uL (0.0-0.1); BASOPHILS % (AUTO) 1 % (0-10); EOSINOPHILS # (AUTO) 0.2 10^3/uL (0.0-0.3); EOSINOPHILS % (AUTO) 3 % (0-10); HEMATOCRIT 42 % (35-52); HEMOGLOBIN 13.5 g/dL (11.5-16.0); LYMPHOCYTES # (AUTO) 3.3 10^3/uL (1.0-4.0); LYMPHOCYTES % (AUTO) 45 % (12-44); MEAN CORPUSCULAR HEMOGLOBIN 29 pg (25-34); MEAN CORPUSCULAR HGB CONC 32 g/dL (32-36); MEAN CORPUSCULAR VOLUME 91 fL (80-99); MEAN PLATELET VOLUME 8.8 fL (9.0-12.2); MONOCYTES # (AUTO) 0.5 10^3/uL (0.0-1.0); MONOCYTES % (AUTO) 7 % (0-12); NEUTROPHILS # (AUTO) 3.3 10^3/uL (1.8-7.8); NEUTROPHILS % (AUTO) 45 % (42-75); PLATELET COUNT 312 10^3/uL (130-400); WHITE BLOOD COUNT 7.3 10^3/uL (4.3-11.0)
--- NOTE | 2022-02-08 21:37 | ED Cardiac General ---
History of Present Illness General Chief Complaint: Cardiac/General Problems Stated Complaint: PACEMAKER WENT OFF Source: patient (LIMITED HISTORIAN, POOR MEMORY), old records History of Present Illness Date Seen by Provider: Feb 08, 2022 Time Seen by Provider: 21:07 Initial Comments PT ARRIVES VIA POV FROM [place]--STATES HER MOTHER DROVE HER HERE STATES "MY PACEMAKER WENT OFF" STATES "IT DIDN'T SHOCK ME OR NOTHIN"" "IT DID THE SOUND" "I DON'T KNOW WHAT SOUND" STATES SHE WAS SITTING AT THE TABLE AT THE TIME NO CHEST PAIN NO PALPITATIONS NO SHORTNESS OF BREATH NO DIZZINESS OR SYNCOPE NO SWEATS NO NAUSEA/VOMITING NO FEVER OR RECENT ILLNESS STATES IT HAS HAPPENED BEFORE--CANNOT STATE WHEN OR WHAT THE PROBLEM WAS OR WHAT WAS DONE ABOUT IT PER OLD RECORDS, PT INITIALLY HAD A PACEMAKER/DEFIBRILLATOR PLACED IN 2014 AFTER CARDIAC ARREST/V-FIB/ATRIAL THROMBUS; WHICH MALFUNCTIONED AND THEN IT WAS REPLACED IN 2018 WITH A DEFIBRILLATOR ONLY DEVICE. PT HAS HAD A MULTITUDE OF VISITS FOR VARIOUS COMPLAINTS, USUALLY GOES TO [place] [facility]. PT WAS SEEN HERE IN NOVEMBER FOR THIS SAME COMPLAINT OF HER DEVICE MAKING AN ABNORMAL SOUND--DEVICE INTERROGATION WAS NORMAL AND BATTERY LIFE WAS FOR ANOTHER 2 YEARS. PCP: NORMA NGUYEN, [facility] POLITICAL ANTHROPOLOGIST: DR. FORTUNE Allergies and Home Medications Allergies Coded Allergies: JIA Inhibitors (Verified Allergy, Severe, 05/22/19) ARB-Angiotensin Receptor Antagonist (Verified Allergy, Severe, 05/22/19) amoxicillin (Verified Allergy, Unknown, 05/28/21) baclofen (Unverified Allergy, Unknown, 05/22/19) ON H&P clavulanic acid (Verified Allergy, Unknown, 05/28/21) phenazopyridine (Unverified Allergy, Unknown, 05/22/19) ON H&P Patient Home Medication List Home Medication List Reviewed: Yes Albuterol Sulfate (Rx-Proair) 8 Gm Hfa.aer.ad, 2 PUFF INH Q6H PRN for SHORTNESS OF BREATH, (Reported) Entered as Reported by: BROWN SCHULER on 03/21/15 1434 Amlodipine Besylate (Amlodipine Besylate) 10 Mg Tablet, 10 MG PO DAILY, (Reported) Entered as Reported by: TUNG HELTON on 07/23/15 0737 Apixaban (Eliquis) 5 Mg Tablet, 5 MG PO BID Prescribed by: RALPH DELCID on 11/01/18 185 Biotin (Biotin) 5,000 Mcg Tab.rapdis, (Reported) Entered as Reported by: MIKY CAMPBELL on 05/22/192116 Cyclobenzaprine HCl (Cyclobenzaprine HCl) 10 Mg Tablet, 10 MG PO BID PRN for chest wall pain/muscle spasm Prescribed by: EDISON CHAMBERLAIN on 12/24/21 0206 Diphenoxylate HCl/Atropine (Lomotil 2.5-0.025 mg Tablet) 1 Each Tablet, 1 EACH PO BID PRN for DIARRHEA Prescribed by: ORESTES VELASCO on 11/29/19 230 Epinephrine (Epinephrine) 0.3 Mg/0.3 Ml Auto.injct, 0.3 MG IJ PRN Prescribed by: MOUNIKA GARCIA on 05/28/21 0932 Famotidine (Famotidine) 20 Mg Tablet, (Reported) Entered as Reported by: TALISHA CELIS on 08/05/181810 Metoprolol Tartrate (Metoprolol Tartrate) 50 Mg Tablet, 50 MG PO BID Prescribed by: FELECIA FORTUNE on 07/24/15 0841 Ondansetron (Ondansetron Odt) 4 Mg Tab.rapdis, 4 MG PO Q6H PRN for NAUSEA/VOMITING Prescribed by: EDISON CHAMBERLAIN on 12/03/21 215 Ropinirole HCl (Ropinirole HCl) 0.5 Mg Tablet, (Reported) Entered as Reported by: TALISHA CELIS on 08/05/181809 Sacubitril/Valsartan (Entresto 24 mg-26 mg Tablet) 1 Each Tablet, (Reported) Entered as Reported by: TALISHA CELIS on 08/05/181809 [Clonidine Hydrochloride .2 Mg ] , (Reported) Entered as Reported by: MIKY CAMPBELL on 05/22/192115 [Meloxicam 15 Mg Tabs] , (Reported) Entered as Reported by: MIKY CAMPBELL on 05/22/192115 [Metoprolol Tartrate 100 Mg Tab] , (Reported) Entered as Reported by: MIKY CAMPBELL on 05/22/191929 [Olanzapine 10 Mg Tabs] , (Reported) Entered as Reported by: MIKY CAMPBELL on 05/22/192115 [Oxcarbazepine 300 Mg Tabs] , (Reported) Entered as Reported by: MIKY CAMPBELL on 05/22/192115 Review of Systems Review of Systems Constitutional: no symptoms reported Respiratory: No Symptoms Reported Cardiovascular: See HPI; Denies Chest Pain, Denies Edema, Denies Irregular Heart Rate, Denies Lightheadedness, Denies Palpitations, Denies Syncope Gastrointestinal: No Symptoms Reported Genitourinary: No Symptoms Reported Musculoskeletal: no symptoms reported Skin: no symptoms reported Psychiatric/Neurological: No Symptoms Reported Endocrine: No Symptoms Reported Hematologic/Lymphatic: No Symptoms Reported Past Lypohwg-Jukduk-Xyrgip Hx Patient Social History Tobacco Use?: Yes Tobacco type used: Cigarettes Smoking Status: Former Smoker Substance use?: Yes Substance type: Methamphetamine Additional substance use comme: HX OF IV METH USE-CLAIMS NONE SINCE 2015 Alcohol Use?: Yes Alcohol Frequency: Once in a while Immunizations Up To Date Tetanus Booster (TDap): Unknown PED Vaccines UTD: Yes First/Initial COVID19 Vaccinat: 2020 Second COVID19 Vaccination Adair: yes Third COVID19 Vaccination Date: 2020 Seasonal Allergies Seasonal Allergies: No Past Medical History Surgery/Hospitalization HX: Cardiac hx, stroke pacemaker replacement 3x Surgeries: Yes (PACER/DEFIB 2014; DEFIB PLACED 05/10/19. PEG TUBE- REMOVED;UTERINE ABLATION) Abdominal, Section, Defibrillator, Gallbladder, Hysterectomy, Pacemaker Respiratory: Yes (ARDS-CODED; PNEUMOTHORAX 06/2015) Pneumonia, Chronic Bronchitis Currently Using CPAP: No Currently Using BIPAP: No Cardiac: Yes (PULMONARY EDEMA/CARDIAC CAUSE-R/T ATRIAL THROMBUS; CARDIAC ARREST;V-FIB ) Cardiomyopathy, Endocarditis, Hypertension, Valvular Heart Disease Neurological: Yes (encephalopathy-hypoxia, anoxic brain injury; POOR MEMORY;SLURRED SPEECH) Reproductive Disorders: Yes (ENDOMETRIAL ABLATION) Female Reproductive Disorders: Menstrual Problems Sexually Transmitted Disease: No Genitourinary: Yes Renal Failure Gastrointestinal: Yes Gastroesophageal Reflux Musculoskeletal: Yes (GAIT DISTURBANCE) Endocrine: No (OBESITY) HEENT: No Loss of Vision: Denies Hearing Impairment: Denies Cancer: No Psychosocial: Yes Anxiety, Bipolar, Depression Integumentary: No Blood Disorders: Yes (ANEMIA) Family Medical History Patient reports no known family medical history. No Pertinent Family Hx SOCIAL HISTORY: -OCCASIONAL ETOH -HX OF IV METH USE, CLAIMS NO USE SINCE 2015 -QUIT SMOKING SEVERAL YEARS AGO Physical Exam Vital Signs Vital Signs - First Documented 02/08/22 21:05 Temp 36.8 Pulse 73 Resp 28 B/P (MAP) 155/105 (122) Pulse Ox 98 Capillary Refill : Height, Weight, BMI Height: 5'3.00" Weight: 234lbs. 0oz. 106.837743gt; 40.00 BMI Method:Stated General Appearance: No Apparent Distress, WD/WN, Obese Neck: Normal Inspection Respiratory: Normal Breath Sounds, No Accessory Muscle Use, No Respiratory Distress Cardiovascular: Regular Rate, Rhythm, No Murmur Gastrointestinal: Non Tender, Soft Extremity: Normal Inspection Neurologic/Psychiatric: Alert, Oriented x3, No Motor/Sensory Deficits, call manager II- XII Norm as Tested, Other (FLAT AFFECT, SPEECH SLIGHTLY SLOW AND SLIGHTLY SLURRED/THICK-TONGUED--NORMAL BASELINE PER PT, POST-CVA. ) Skin: Normal Color (PT IS BLACK), Warm/Dry Progress/Results/Core Measures Results/Orders Lab Results Laboratory Tests Test 02/08/22 21:26 02/08/22 21:31 Range/Units White Blood Count 7.3 4.3-11.0 10^3/uL Red Blood Count 4.65 3.80-5.11 10^6/uL Hemoglobin 13.5 11.5-16.0 g/dL Hematocrit 42 35-52 % Mean Corpuscular Volume 91 80-99 fL Mean Corpuscular Hemoglobin 29 25-34 pg Mean Corpuscular Hemoglobin Concent 32 32-36 g/dL Red Cell Distribution Width 14.6 H 10.0-14.5 % Platelet Count 312 130-400 10^3/uL Mean Platelet Volume 8.8 L 9.0-12.2 fL Immature Granulocyte % (Auto) 0 % Neutrophils (%) (Auto) 45 42-75 % Lymphocytes (%) (Auto) 45 H 12-44 % Monocytes (%) (Auto) 7 0-12 % Eosinophils (%) (Auto) 3 0-10 % Basophils (%) (Auto) 1 0-10 % Neutrophils # (Auto) 3.3 1.8-7.8 10^3/uL Lymphocytes # (Auto) 3.3 1.0-4.0 10^3/uL Monocytes # (Auto) 0.5 0.0-1.0 10^3/uL Eosinophils # (Auto) 0.2 0.0-0.3 10^3/uL Basophils # (Auto) 0.1 0.0-0.1 10^3/uL Immature Granulocyte # (Auto) 0.0 0.0-0.1 10^3/uL Prothrombin Time 12.7 12.2-14.7 SEC INR Comment 0.9 0.8-1.4 Activated Partial Thromboplast Time 28 24-35 SEC Sodium Level 139 135-145 MMOL/L Potassium Level 4.0 3.6-5.0 MMOL/L Chloride Level 105 98-107 MMOL/L Carbon Dioxide Level 22 21-32 MMOL/L Anion Gap 12 5-14 MMOL/L Blood Urea Nitrogen 18 7-18 MG/DL Creatinine 2.06 H 0.60-1.30 MG/DL Estimat Glomerular Filtration Rate 32 BUN/Creatinine Ratio 9 Glucose Level 88 70-105 MG/DL Calcium Level 8.9 8.5-10.1 MG/DL Corrected Calcium 9.0 8.5-10.1 MG/DL Magnesium Level 1.8 1.6-2.4 MG/DL Total Bilirubin 0.2 0.1-1.0 MG/DL Aspartate Amino Transf (AST/SGOT) 22 5-34 U/L Alanine Aminotransferase (ALT/SGPT) 21 0-55 U/L Alkaline Phosphatase 70 40-136 U/L Total Creatine Kinase 207 H 29-168 U/L Creatine Kinase MB 1.4 <6.6 NG/ML Myoglobin 105.6 H 10.0-92.0 NG/ML Troponin I < 0.028 <0.028 NG/ML B-Type Natriuretic Peptide 33.7 <100.0 PG/ML Total Protein 6.8 6.4-8.2 GM/DL Albumin 3.9 3.2-4.5 GM/DL TSH [place] Testing 2.09 0.35-4.94 UIU/ML Serum Alcohol < 10 <10 MG/DL Urine Opiates Screen NEGATIVE NEGATIVE Urine Oxycodone Screen NEGATIVE NEGATIVE Urine Methadone Screen NEGATIVE NEGATIVE Urine Propoxyphene Screen NEGATIVE NEGATIVE Urine Barbiturates Screen NEGATIVE NEGATIVE Ur Tricyclic Antidepressants Screen POSITIVE H NEGATIVE Urine Phencyclidine Screen NEGATIVE NEGATIVE Urine Amphetamines Screen NEGATIVE NEGATIVE Urine Methamphetamines Screen NEGATIVE NEGATIVE Urine Benzodiazepines Screen NEGATIVE NEGATIVE Urine Cocaine Screen NEGATIVE NEGATIVE Urine Cannabinoids Screen NEGATIVE NEGATIVE My Orders Orders - LIZRODRIGO Mohan DO Ed Iv/Invasive Line Start (02/08/22 21:12) Ekg Tracing (02/08/22 21:12) Monitor-Rhythm Ecg Trace Only (02/08/22 21:12) Chest 1 View, Ap/Pa Only (02/08/22 21:12) Bnp El (02/08/22 21:12) Cbc With Automated Diff (02/08/22 21:12) Comprehensive Metabolic Panel (02/08/22 21:12) Creatine Kinase (02/08/22 21:12) Creatine Kinase Mb (02/08/22 21:12) Magnesium (02/08/22 21:12) Thyroid Analyzer (02/08/22 21:12) Troponin I El (02/08/22 21:12) Myoglobin Serum (02/08/22 21:12) Alcohol (02/08/22 21:12) Drug Screen Stat (Urine) (02/08/22 21:12) Protime With Inr (02/08/22 21:12) Partial Thromboplastin Time (02/08/22 21:12) Vital Signs/I&O 02/08/22 02/08/22 21:05 22:45 Temp 36.8 Pulse 73 69 Resp 28 24 B/P (MAP) 155/105 (122) 154/108 Pulse Ox 98 99 Progress Progress Note : Progress Note [employer] DEVICE INTERROGATION DONE: NO DEFIBRILLATOR DISCHARGES. LEAD WARNING 2 SECONDS AT/AF. PT HAD NO COMPLAINTS FOR ENTIRE ER STAY Initial ECG Impression Date: Feb 08, 2022 Initial ECG Impression Time: 21:23 Initial ECG Rate: 70 Initial ECG Rhythm: Normal Sinus Initial ECG Impression: Nonspecific Changes Initial ECG Comparisson: Unchanged Diagnostic Imaging Comments CXR--NO ACUTE PROCESS, PER RADIOLOGIST REPORT FINDINGS: Single frontal view of the chest mild megaly. Pulmonary vasculature however is within normal limits. Left-sided AICD is noted. The lungs are well aerated and clear. No large pleural effusion or pneumothorax is seen. The visualized osseous structures show no acute abnormalities. IMPRESSION: 1. Redemonstration of mild cardiomegaly, but no evidence of failure or focal infiltrate. Reviewed: Reviewed by Oh Departure Communication (Admissions) 2219--SPOKE WITH DR. FORTUNE, STATES NO CONCERNS, AND MAY SEND PT HOME AND ROUTINE FOLLOW UP Impression Primary Impression: Encounter for checking of automatic implantable cardioverter-defibrillator (AICD) Disposition: 01 HOME, SELF-CARE Condition: Stable Departure-Patient Inst. Decision time for Depature: 22:25 Referrals: FELECIA FORTUNE MD, AMANDA S APRN (PCP) Primary Care Physician Patient Instructions: Implantable Cardioverter-Defibrillators Add. Discharge Instructions: CONTINUE YOUR REGULAR MEDICATIONS PRESCRIBED FOLLOW UP WITH DR. FORTUNE FOR ROUTINE FOLLOW UP RETURN TO ER IF PROBLEMS All discharge instructions reviewed with patient and/or family. Voiced understanding. RODRIGO HILL DO Feb 08, 2022 21:37
[2022-02-08 21:45] LABS: INR 0.9 (0.8-1.4); PROTHROMBIN TIME PATIENT 12.7 SEC (12.2-14.7)
[2022-02-08 21:51] LABS: ALANINE AMINOTRANSFERASE 21 U/L (0-55); ALBUMIN 3.9 GM/DL (3.2-4.5); ALKALINE PHOSPHATASE 70 U/L (40-136); BILIRUBIN,TOTAL 0.2 MG/DL (0.1-1.0); BUN/CREATININE RATIO 9; CALCIUM 8.9 MG/DL (8.5-10.1); CARBON DIOXIDE 22 MMOL/L (21-32); CHLORIDE 105 MMOL/L (98-107); CREATINE KINASE 207 U/L (29-168); CREATININE SERUM 2.06 MG/DL (0.60-1.30); GFR ESTIMATED 32; GLUCOSE 88 MG/DL (70-105); MAGNESIUM 1.8 MG/DL (1.6-2.4); SODIUM 139 MMOL/L (135-145); TOTAL PROTEIN 6.8 GM/DL (6.4-8.2)
[2022-02-08 22:11] LABS: CREATINE KINASE MB 1.4 NG/ML (<6.6); TSH (THYROID ANALYZER) 2.09 UIU/ML (0.35-4.94)
[2022-02-08 22:16] LABS: AMPHETAMINE SCREEN, URINE NEGATIVE (NEGATIVE); BARBITURATE SCREEN URINE NEGATIVE (NEGATIVE); BENZODIAZEPINES SCREEN URINE NEGATIVE (NEGATIVE); CANNABINOID SCREEN, URINE NEGATIVE (NEGATIVE); COCAINE SCREEN URINE NEGATIVE (NEGATIVE); METHADONE STAT NEGATIVE (NEGATIVE); METHAMPHETAMINE SCREEN URINE S NEGATIVE (NEGATIVE); OPIATE SCREEN URINE NEGATIVE (NEGATIVE); OXYCODONE STAT NEGATIVE (NEGATIVE); PROPOXYPHENE STAT NEGATIVE (NEGATIVE); TRICYCLIC ANTIDEPRESSANTS SCRE POSITIVE (NEGATIVE)
--- NOTE | 2022-02-08 22:18 | Diagnostic Imaging Report ---
INDICATION: Pacemaker problem COMPARISON: 12/24/2021 FINDINGS: Single frontal view of the chest mild megaly. Pulmonary vasculature however is within normal limits. Left-sided AICD is noted. The lungs are well aerated and clear. No large pleural effusion or pneumothorax is seen. The visualized osseous structures show no acute abnormalities. IMPRESSION: 1. Redemonstration of mild cardiomegaly, but no evidence of failure or focal infiltrate. Dictated by: Dictated on workstation # [id number]
[2022-02-08 22:45] VITALS: BP 154/108
== END 2022-02-08 22:52 | disposition home or self-care (01) ==
LOC: EDUNIT# 21:01 → ER 21:03
DX: Z45.02 Encounter for adjustment and management of automatic implantable cardiac defibrillator (principal); E66.9 Obesity, unspecified; Z68.41 Body mass index [BMI] 40.0-44.9, adult; Z87.891 Personal history of nicotine dependence
CPT/HCPCS: 71045; 80053; 80306; 82550; 82553; 83735; 83874; 83880; 84443; 84484; 85025; 85610; 85730; 93005; 93041; 99284; G0480; 36415; 80320

== ENCOUNTER 2022-03-11 21:42 | Emergency (ER) | payer MEDICARE, MEDICAID ==
[~2022-03-11] VITALS: Ht 160 cm; Wt 106.6 kg
[2022-03-11 21:50] VITALS: BP 169/94
[2022-03-11] MEDS ORDERED: CLINDAMYCIN 150 MG (CLEOCIN) CAP PO STA (21:58)
[2022-03-11] MEDS ORDERED: HYDROcodone/APAP 5 MG/325 MG (LORTAB) TAB PO ONE (22:00)
--- NOTE | 2022-03-11 22:01 | ED EENT ---
History of Present Illness General Chief Complaint: Dental Problems/Pain Stated Complaint: BROKEN TOOTH Source: patient Exam Limitations: no limitations History of Present Illness Date Seen by Provider: Mar 11, 2022 Time Seen by Provider: 21:59 Initial Comments Patient is a 31-year-old female presents ED with right upper dental pain. Dental pain over the past 2 days. She states she fractured her left upper molar a while back. She is scheduled to get the tooth removed later this month. Has been taken Tylenol without much improvement. Denies any facial swelling, redness, fever, chills. Allergies and Home Medications Allergies Coded Allergies: JIA Inhibitors (Verified Allergy, Severe, 05/22/19) ARB-Angiotensin Receptor Antagonist (Verified Allergy, Severe, 05/22/19) amoxicillin (Verified Allergy, Unknown, 05/28/21) baclofen (Unverified Allergy, Unknown, 05/22/19) ON H&P clavulanic acid (Verified Allergy, Unknown, 05/28/21) phenazopyridine (Unverified Allergy, Unknown, 05/22/19) ON H&P Patient Home Medication List Home Medication List Reviewed: Yes Albuterol Sulfate (Rx-Proair) 8 Gm Hfa.aer.ad, 2 PUFF INH Q6H PRN for SHORTNESS OF BREATH, (Reported) Entered as Reported by: BROWN SCHULER on 03/21/15 1434 Amlodipine Besylate (Amlodipine Besylate) 10 Mg Tablet, 10 MG PO DAILY, (R eported) Entered as Reported by: TUNG HELTON on 07/23/15 0737 Apixaban (Eliquis) 5 Mg Tablet, 5 MG PO BID Prescribed by: RALPH DELCID on 11/01/18 1856 Biotin (Biotin) 5,000 Mcg Tab.rapdis, (Reported) Entered as Reported by: MIKY CAMPBELL on 05/22/192116 Clindamycin HCl (Clindamycin HCl) 300 Mg Capsule, 300 MG PO QID Prescribed by: KEYA LENTZ on 03/11/222202 Cyclobenzaprine HCl (Cyclobenzaprine HCl) 10 Mg Tablet, 10 MG PO BID PRN for chest wall pain/muscle spasm Prescribed by: EDISON CHAMBERLAIN on 12/24/21 0206 Diphenoxylate HCl/Atropine (Lomotil 2.5-0.025 mg Tablet) 1 Each Tablet, 1 EACH PO BID PRN for DIARRHEA Prescribed by: ORESTES VELASCO on 11/29/19 230 Epinephrine (Epinephrine) 0.3 Mg/0.3 Ml Auto.injct, 0.3 MG IJ PRN Prescribed by: MOUNIKA GARCIA on 05/28/21 0932 Famotidine (Famotidine) 20 Mg Tablet, (Reported) Entered as Reported by: TALISHA CELIS on 08/05/181810 Hydrocodone/Acetaminophen (Hydrocodone-Acetamin 5-325 mg) 1 Each Tablet, 1 TAB PO Q4H PRN for PAIN-MODERATE (5-7) Prescribed by: KEYA LENTZ on 03/11/22 220 Metoprolol Tartrate (Metoprolol Tartrate) 50 Mg Tablet, 50 MG PO BID Prescribed by: FELECIA FORTUNE on 07/24/15 0841 Ondansetron (Ondansetron Odt) 4 Mg Tab.rapdis, 4 MG PO Q6H PRN for NAUSEA/VOMITING Prescribed by: EDISON CHAMBERLAIN on 12/03/212158 Ropinirole HCl (Ropinirole HCl) 0.5 Mg Tablet, (Reported) Entered as Reported by: TALISHA CELIS on 08/05/181809 Sacubitril/Valsartan (Entresto 24 mg-26 mg Tablet) 1 Each Tablet, (Reported) Entered as Reported by: TALISHA CELIS on 08/05/181809 [Clonidine Hydrochloride .2 Mg ] , (Reported) Entered as Reported by: MIKY CAMPBELL on 05/22/192115 [Meloxicam 15 Mg Tabs] , (Reported) Entered as Reported by: MIKY CAMPBELL on 05/22/192115 [Metoprolol Tartrate 100 Mg Tab] , (Reported) Entered as Reported by: MIKY CAMPBELL on 05/22/191929 [Olanzapine 10 Mg Tabs] , (Reported) Entered as Reported by: MIKY CAMPBELL on 05/22/192115 [Oxcarbazepine 300 Mg Tabs] , (Reported) Entered as Reported by: MIKY CAMPBELL on 05/22/192115 Review of Systems Review of Systems Constitutional: No chills, No diaphoresis, No malaise, No weakness Eyes: Denies Decreased Acuity Ears: Denies Dizziness, Denies Pain Nose: denies clots, denies congestion Mouth: denies clots, denies loose teeth; other (toothache) Throat: denies swelling, denies discharge Respiratory: No dyspnea on exertion Cardiovascular: No see HPI, No chest pain Musculoskeletal: joint pain, joint swelling Skin: change in color All Other Systems Reviewed Negative Unless Noted: Yes Past Fafraai-Qktewh-Ibjpfb Hx Patient Social History Tobacco Use?: No Substance use?: No Alcohol Use?: No Pt feels they are or have been: No Immunizations Up To Date Tetanus Booster (TDap): Unknown PED Vaccines UTD: Yes First/Initial COVID19 Vaccinat: yes Second COVID19 Vaccination Adair: yes Third COVID19 Vaccination Date: 2020 Seasonal Allergies Seasonal Allergies: No Past Medical History Surgery/Hospitalization HX: Cardiac hx, stroke pacemaker replacement 3x hysterectomy, cholecystectomy, , htn, high cholesterol. Surgeries: Yes (PACER/DEFIB 2014; DEFIB PLACED 05/10/19. PEG TUBE-REMOVED;UTERINE ABLATION) Abdominal, Section, Defibrillator, Gallbladder, Hysterectomy, Pacemaker Respiratory: Yes (ARDS-CODED; PNEUMOTHORAX 06/2015) Pneumonia, Chronic Bronchitis Currently Using CPAP: No Currently Using BIPAP: No Cardiac: Yes (PULMONARY EDEMA/CARDIAC CAUSE-R/T ATRIAL THROMBUS; CARDIAC ARREST;V-FIB ) Cardiomyopathy, Endocarditis, Hypertension, Valvular Heart Disease Neurological: Yes (encephalopathy-hypoxia, anoxic brain injury; POOR MEMORY;SLURRED SPEECH) Reproductive Disorders: Yes (ENDOMETRIAL ABLATION) Female Reproductive Disorders: Menstrual Problems Sexually Transmitted Disease: No Genitourinary: Yes Renal Failure Gastrointestinal: Yes Gastroesophageal Reflux Musculoskeletal: Yes (GAIT DISTURBANCE) Endocrine: No (OBESITY) HEENT: No Loss of Vision: Denies Hearing Impairment: Denies Cancer: No Psychosocial: Yes Anxiety, Bipolar, Depression Integumentary: No Blood Disorders: Yes (ANEMIA) Family Medical History Patient reports no known family medical history. No Pertinent Family Hx SOCIAL HISTORY: -OCCASIONAL ETOH -HX OF IV METH USE, CLAIMS NO USE SINCE 2015 -QUIT SMOKING SEVERAL YEARS AGO Physical Exam Vital Signs Vital Signs - First Documented 03/11/22 21:50 Temp 36.9 Pulse 75 Resp 16 B/P (MAP) 169/94 (119) Pulse Ox 98 O2 Delivery Room Air Height, Weight, BMI Height: 5'3.00" Weight: 234lbs. 0oz. 106.264656kr; 41.00 BMI Method:Stated General Appearance: WD/WN, no apparent distress Eyes: bilateral eye normal inspection, bilateral eye PERRL, bilateral eye EOMI Ears: bilateral ear auricle normal, bilateral ear canal normal, bilateral ear TM normal Nose: normal inspection, active bleeding Mouth/Throat: other (Decay of her right upper molar with mild gum swelling and erythema. 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 II-XII nml as tested, no motor/sensory deficits, alert, normal mood/affect, oriented x 3 Skin: normal color, warm/dry Progress/Results/Core Measures Results/Orders My Orders Orders - MATY BLANCHARD Clindamycin Capsule (Cleocin Capsule) (03/11/22 21:58) Hydrocodone/Apap 5/325 Tablet (Lortab 5 (03/11/22 22:00) Medications Given in ED Current Medications Medications Dose Ordered Sig/Mikal Route Start Time Stop Time Status Last Admin Dose Admin Acetaminophen/ Hydrocodone Bitart 1 ea ONCE ONCE PO 03/11/22 22:00 03/11/22 22:01 DC 03/11/22 22:04 1 EA Vital Signs/I&O 03/11/22 21:50 Temp 36.9 Pulse 75 Resp 16 B/P (MAP) 169/94 (119) Pulse Ox 98 O2 Delivery Room Air Departure Communication (PCP) Patient has a fractured tooth with severe decay to her right upper molar. Mild gum swelling erythema. No fluctuant mass. No facial swelling or erythema. Refused dental block. Patient has a scheduled follow-up with oral surgeon on the for removal. Concerning for underlying infection. Patient was given dose of pain medication and antibiotic here. Will discharge with pain medication clindamycin. She is allergic to penicillins. If any worsening symptoms such as facial swelling redness, fever, pain to return back to ED for further evaluation. Impression Primary Impression: Toothache Disposition: HOME, SELF-CARE Condition: Stable Departure-Patient Inst. Decision time for Depature: 22:02 Referrals: BROWN NGUYEN APRN (PCP/Family) Primary Care Physician Patient Instructions: Dental Pain Scripts Hydrocodone/Acetaminophen (Hydrocodone-Acetamin 5-325 mg) 1 Each Tablet 1 TAB PO Q4H PRN for PAIN-MODERATE (5-7), #6 TAB Prov: MATY BLANCHARD 03/11/22 Clindamycin HCl (Clindamycin HCl) 300 Mg Capsule 300 MG PO QID for 7 Days, #28 CAP Prov: MATY BLANCHARD 03/11/22 MATY BLANCHARD Mar 11, 2022 22:00
[2022-03-11] MEDS ORDERED: ACHD5005 PO (22:03)
[2022-03-11] MEDS ORDERED: CLIN-144 PO (22:03)
== END 2022-03-11 22:10 | disposition home or self-care (01) ==
LOC: EDUNIT# 21:42 → ER 21:45
DX: K08.89 Other specified disorders of teeth and supporting structures (principal); E66.9 Obesity, unspecified; Z68.41 Body mass index [BMI] 40.0-44.9, adult
CPT/HCPCS: 99283

== ENCOUNTER 2022-04-14 03:13 | Emergency (ER) | payer MEDICAID, MEDICARE ==
[~2022-04-14] VITALS: Ht 162.5 cm; Wt 108.3 kg
[2022-04-14] MEDS ORDERED: GABAPENTIN 100 MG (NEURONTIN) CAP PO STA (03:28)
--- NOTE | 2022-04-14 03:35 | ED Upper Extremity ---
General Chief Complaint: Upper Extremity Stated Complaint: RIGHT HAND INJURY Source: patient History of Present Illness Date Seen by Provider: April 14, 2022 Time Seen by Provider: 03:19 Initial Comments 31-year-old female presenting with complaints of burning pain started suddenly on her right thumb extending up to her elbow. She denies any acute injury that started this. She had tried taking Tylenol for the pain. She has increased pain when moving her thumb. She has previously had injury and sprain to the left arm. She does have a history of high blood pressure but denies having neuropathy. She has had prior strokes. She denies doing anything to make her thumb be injured. No fever, chills, redness, warmth to thumb. Onset: this morning Severity: moderate Pain/Injury Location: right thumb Method of Injury: unknown Modifying Factors: Worse With Movement Allergies and Home Medications Allergies Coded Allergies: JIA Inhibitors (Verified Allergy, Severe, 05/22/19) ARB-Angiotensin Receptor Antagonist (Verified Allergy, Severe, 05/22/19) amoxicillin (Verified Allergy, Unknown, 05/28/21) baclofen (Unverified Allergy, Unknown, 05/22/19) ON H&P clavulanic acid (Verified Allergy, Unknown, 05/28/21) phenazopyridine (Unverified Allergy, Unknown, 05/22/19) ON H&P Patient Home Medication List Home Medication List Reviewed: Yes Albuterol Sulfate (Rx-Proair) 8 Gm Hfa.aer.ad, 2 PUFF INH Q6H PRN for SHORTNESS OF BREATH, (Reported) Entered as Reported by: BROWN SCHULER on 03/21/15 1434 Amlodipine Besylate (Amlodipine Besylate) 10 Mg Tablet, 10 MG PO DAILY, (Reported) Entered as Reported by: TUNG HELTON on 07/23/15 0737 Apixaban (Eliquis) 5 Mg Tablet, 5 MG PO BID Prescribed by: RALPH DELCID on 11/01/18 1856 Biotin (Biotin) 5,000 Mcg Tab.rapdis, (Reported) Entered as Reported by: MIKY CAMPBELL on 05/22/192116 Clindamycin HCl (Clindamycin HCl) 300 Mg Capsule, 300 MG PO QID Prescribed by: KEYA LENTZ on 03/11/222202 Cyclobenzaprine HCl (Cyclobenzaprine HCl) 10 Mg Tablet, 10 MG PO BID PRN for chest wall pain/muscle spasm Prescribed by: EDISON CHAMBERLAIN on 12/24/21 0206 Diphenoxylate HCl/Atropine (Lomotil 2.5-0.025 mg Tablet) 1 Each Tablet, 1 EACH PO BID PRN for DIARRHEA Prescribed by: ORESTES VELASCO on 11/29/19 230 Epinephrine (Epinephrine) 0.3 Mg/0.3 Ml Auto.injct, 0.3 MG IJ PRN Prescribed by: MOUNIKA GARCIA on 05/28/21 0932 Famotidine (Famotidine) 20 Mg Tablet, (Reported) Entered as Reported by: TALISHA CELIS on 08/05/181810 Gabapentin (Gabapentin) 100 Mg Capsule, 100 MG PO Q8H PRN for burning pain/neuropathy thumb Prescribed by: EDISON CHAMBERLAIN on 04/14/22 0337 Hydrocodone/Acetaminophen (Hydrocodone-Acetamin 5-325 mg) 1 Each Tablet, 1 TAB PO Q4H PRN for PAIN-MODERATE (5-7) Prescribed by: KEYA LENTZ on 03/11/22 220 Metoprolol Tartrate (Metoprolol Tartrate) 50 Mg Tablet, 50 MG PO BID Prescribed by: FELECIA FORTUNE on 07/24/15 0841 Ondansetron (Ondansetron Odt) 4 Mg Tab.rapdis, 4 MG PO Q6H PRN for NAUSEA/VOMITING Prescribed by: EDISON CHAMBERLAIN on 12/03/21 215 Ropinirole HCl (Ropinirole HCl) 0.5 Mg Tablet, (Reported) Entered as Reported by: TALISHA CELIS on 08/05/181809 Sacubitril/Valsartan (Entresto 24 mg-26 mg Tablet) 1 Each Tablet, (Reported) Entered as Reported by: TALISHA CELIS on 08/05/181809 [Clonidine Hydrochloride .2 Mg ] , (Reported) Entered as Reported by: MIKY CAMPBELL on 05/22/192115 [Meloxicam 15 Mg Tabs] , (Reported) Entered as Reported by: MIKY CAMPBELL on 05/22/192115 [Metoprolol Tartrate 100 Mg Tab] , (Reported) Entered as Reported by: MIKY CAMPBELL on 05/22/191929 [Olanzapine 10 Mg Tabs] , (Reported) Entered as Reported by: MIKY CAMPBELL on 05/22/192115 [Oxcarbazepine 300 Mg Tabs] , (Reported) Entered as Reported by: MIKY CAMPBELL on 05/22/192115 Review of Systems Constitutional: No chills, No fever EENTM: no symptoms reported Respiratory: no symptoms reported Cardiovascular: no symptoms reported Gastrointestinal: no symptoms reported Genitourinary: no symptoms reported Musculoskeletal: see HPI Skin: No change in color Psychiatric/Neurological: See HPI; Denies Numbness, Denies Paresthesia Past Lcsldxm-Eltydu-Onlvas Hx Immunizations Up To Date Tetanus Booster (TDap): Unknown PED Vaccines UTD: Yes First/Initial COVID19 Vaccinat: yes Second COVID19 Vaccination Adair: yes Third COVID19 Vaccination Date: 2020 Seasonal Allergies Seasonal Allergies: No Past Medical History Surgery/Hospitalization HX: Cardiac hx, stroke pacemaker replacement 3x hysterectomy, cholecystectomy, , htn, high cholesterol. Surgeries: Yes (PACER/DEFIB 2014; DEFIB PLACED 05/10/19. PEG TUBE- REMOVED;UTERINE ABLATION) Abdominal, Section, Defibrillator, Gallbladder, Hysterectomy, Pacemaker Respiratory: Yes (ARDS-CODED; PNEUMOTHORAX 06/2015) Pneumonia, Chronic Bronchitis Currently Using CPAP: No Currently Using BIPAP: No Cardiac: Yes (PULMONARY EDEMA/CARDIAC CAUSE-R/T ATRIAL THROMBUS; CARDIAC ARREST;V-FIB ) Cardiomyopathy, Endocarditis, Hypertension, Valvular Heart Disease Neurological: Yes (encephalopathy-hypoxia, anoxic brain injury; POOR MEMORY;SLURRED SPEECH) Reproductive Disorders: Yes (ENDOMETRIAL ABLATION) Female Reproductive Disorders: Menstrual Problems Sexually Transmitted Disease: No Genitourinary: Yes Renal Failure Gastrointestinal: Yes Gastroesophageal Reflux Musculoskeletal: Yes (GAIT DISTURBANCE) Endocrine: No (OBESITY) HEENT: No Loss of Vision: Denies Hearing Impairment: Denies Cancer: No Psychosocial: Yes Anxiety, Bipolar, Depression Integumentary: No Blood Disorders: Yes (ANEMIA) Family Medical History Patient reports no known family medical history. No Pertinent Family Hx SOCIAL HISTORY: -OCCASIONAL ETOH -HX OF IV METH USE, CLAIMS NO USE SINCE 2015 -QUIT SMOKING SEVERAL YEARS AGO Physical Exam Vital Signs Vital Signs - First Documented 04/14/22 03:29 Temp 36.6 Pulse 79 Resp 18 B/P (MAP) 162/103 (122) Pulse Ox 97 O2 Delivery Room Air Capillary Refill : Height, Weight, BMI Height: 5'3.00" Weight: 234lbs. 0oz. 106.220996av; 41.00 BMI Method:Stated General Appearance: WD/WN, no apparent distress Cardiovascular: normal peripheral pulses, regular rate, rhythm Respiratory: chest non-tender, lungs clear, normal breath sounds Shoulder: normal inspection, non-tender, no evidence of injury, normal ROM Elbow/Forearm: normal inspection, non-tender, no evidence of injury, normal ROM, Bilateral Wrist: Yes normal inspection, Yes non-tender, Yes no evidence of injury, Yes normal ROM Hand: Right, limited ROM (Right thumb limited range of motion due to burning p ain in thumb) Neurologic/Tendon: normal sensation, normal motor functions Neurologic/Psychiatric: alert, oriented x 3 Skin: normal color, warm/dry Progress/Results/Core Measures Results/Orders My Orders Orders - EDISON CHAMBERLAIN MD Gabapentin Capsule/Tablet (Neurontin Cap (04/14/22 03:28) Vital Signs/I&O 04/14/22 03:29 Temp 36.6 Pulse 79 Resp 18 B/P (MAP) 162/103 (122) Pulse Ox 97 O2 Delivery Room Air Progress Progress Note : Progress Note Advised patient that we would not be treating x-rays would not tell me anything specifically about her thumb. Since she describes it as a burning pain that sounds more like neuropathic pain and she has had prior injury to the thumb so it may be that she had aggravated it while she was cleaning this morning. Have her try taking a nerve medicine for inflammation such as gabapentin to see if it would make a difference. If she is not having improvement she may need nerve conduction study or additional testing with her primary care or neurology. Departure Impression Primary Impression: Burning pain Additional Impression: Neuropathy of finger of right hand Disposition: 01 HOME, SELF-CARE Condition: Stable Departure-Patient Inst. Decision time for Depature: 03:32 Referrals: BROWN NGUYEN APRN (PCP/Family) Primary Care Physician Patient Instructions: Peripheral Neuropathy (DC) Add. Discharge Instructions: Try taking the Gabapentin to help with nerve inflammation and irritation to your thumb and hand If not improving in next 3-5 days with the medicine then check with clinic as you may need to be referred to Neurologist or have nerve testing to look into why you have the burning pain in your thumb and arm. All discharge instructions reviewed with patient and/or family. Voiced understanding. Scripts Gabapentin (Gabapentin) 100 Mg Capsule 100 MG PO Q8H PRN for burning pain/neuropathy thumb for 10 Days, #30 CAP 0 Refills Prov: EDISON CHAMBERLAIN MD 04/14/22 EDISON CHAMBERLAIN MD April 14, 2022 03:35
[2022-04-14] MEDS ORDERED: GABA-486 PO (03:37)
[2022-04-14 03:44] VITALS: BP 162/103
== END 2022-04-14 03:43 | disposition home or self-care (01) ==
LOC: EDUNIT# 03:13 → ER FS 03:16
DX: G56.91 Unspecified mononeuropathy of right upper limb (principal); Z87.891 Personal history of nicotine dependence
CPT/HCPCS: 99281

== ENCOUNTER 2022-06-10 19:51 | Emergency (ER) | payer MEDICARE ==
[~2022-06-10] VITALS: Ht 160 cm; Wt 108.2 kg
[~2022-06-10 19:51] MED LIST changes: +GABA-486 PO
--- NOTE | 2022-06-10 20:32 | ED EENT ---
History of Present Illness General Chief Complaint: Oral/Throat Problems Stated Complaint: SORE THROAT Nursing Triage Note: Pt c/o sore throat x 3 days. Denies fever, cough. Reports no relief from Tylenol. Source: patient Exam Limitations: no limitations History of Present Illness Date Seen by Provider: Jun 10, 2022 Time Seen by Provider: 20:08 Initial Comments 31-year-old female patient with history of hypertension, endocarditis, cardiomyopathy, cardiac valvular disease, chronic bronchitis complaining of sore throat and nasal congestion for the last 3 days. Patient complaining of headache and change of her voice. Patient rated her pain 6/10 and denies cough and shortness of, fever and chills, chest pain, nausea and vomiting, sick contact. Patient states she took Tylenol without improvement of her pain. Patient is COVID vaccinated. Allergies and Home Medications Allergies Coded Allergies: JIA Inhibitors (Verified Allergy, Severe, 05/22/19) ARB-Angiotensin Receptor Antagonist (Verified Allergy, Severe, 05/22/19) amoxicillin (Verified Allergy, Unknown, 05/28/21) baclofen (Unverified Allergy, Unknown, 05/22/19) ON H&P clavulanic acid (Verified Allergy, Unknown, 05/28/21) phenazopyridine (Unverified Allergy, Unknown, 05/22/19) ON H&P Patient Home Medication List Home Medication List Reviewed: Yes Albuterol Sulfate (Rx-Proair) 8 Gm Hfa.aer.ad, 2 PUFF INH Q6H PRN for SHORTNESS OF BREATH, (Reported) Entered as Reported by: BROWN SCHULER on 03/21/15 1434 Amlodipine Besylate (Amlodipine Besylate) 10 Mg Tablet, 10 MG PO DAILY, (Reported) Entered as Reported by: TUNG HELTON on 07/23/15 0737 Apixaban (Eliquis) 5 Mg Tablet, 5 MG PO BID Prescribed by: RALPH DELCID on 11/01/18 185 Azithromycin (Azithromycin) 250 Mg Tablet, 250 MG PO DAILY Prescribed by: Radha jenkins on 06/10/222056 Biotin (Biotin) 5,000 Mcg Tab.rapdis, (Reported) Entered as Reported by: MIKY CAMPBELL on 05/22/192116 Clindamycin HCl (Clindamycin HCl) 300 Mg Capsule, 300 MG PO QID Prescribed by: KEYA LENTZ on 03/11/222202 Cyclobenzaprine HCl (Cyclobenzaprine HCl) 10 Mg Tablet, 10 MG PO BID PRN for chest wall pain/muscle spasm Prescribed by: EDISON CHAMBERLAIN on 12/24/21 0206 Diphenoxylate HCl/Atropine (Lomotil 2.5-0.025 mg Tablet) 1 Each Tablet, 1 EACH PO BID PRN for DIARRHEA Prescribed by: ORESTES VELASCO on 11/29/19 230 Epinephrine (Epinephrine) 0.3 Mg/0.3 Ml Auto.injct, 0.3 MG IJ PRN Prescribed by: MOUNIKA GARCIA on 05/28/21 0932 Famotidine (Famotidine) 20 Mg Tablet, (Reported) Entered as Reported by: TALISHA CELIS on 08/05/181810 Gabapentin (Gabapentin) 100 Mg Capsule, 100 MG PO Q8H PRN for burning pain/neuropathy thumb Prescribed by: EDISON CHAMBERLAIN on 04/14/22 0337 Hydrocodone/Acetaminophen (Hydrocodone-Acetamin 5-325 mg) 1 Each Tablet, 1 TAB PO Q4H PRN for PAIN-MODERATE (5-7) Prescribed by: KEYA LENTZ on 03/11/222203 Metoprolol Tartrate (Metoprolol Tartrate) 50 Mg Tablet, 50 MG PO BID Prescribed by: FELECIA FORTUNE on 07/24/15 0841 Ondansetron (Ondansetron Odt) 4 Mg Tab.rapdis, 4 MG PO Q6H PRN for NAUS EA/VOMITING Prescribed by: EDISON CHAMBERLAIN on 12/03/212158 Oxymetazoline HCl (Afrin) 0.05 % Honaker, 2 SPRAY NS QID PRN for nasal congestion Prescribed by: Radha jenkins on 06/10/222056 Ropinirole HCl (Ropinirole HCl) 0.5 Mg Tablet, (Reported) Entered as Reported by: TALISHA CELIS on 08/05/181809 Sacubitril/Valsartan (Entresto 24 mg-26 mg Tablet) 1 Each Tablet, (Reported) Entered as Reported by: TALISHA CELIS on 08/05/181809 [Clonidine Hydrochloride .2 Mg ] , (Reported) Entered as Reported by: MIKY CAMPBELL on 05/22/192115 [Meloxicam 15 Mg Tabs] , (Reported) Entered as Reported by: MIKY CAMPBELL on 05/22/192115 [Metoprolol Tartrate 100 Mg Tab] , (Reported) Entered as Reported by: MIKY CAMPBELL on 05/22/191929 [Olanzapine 10 Mg Tabs] , (Reported) Entered as Reported by: MIKY CAMPBELL on 05/22/192115 [Oxcarbazepine 300 Mg Tabs] , (Reported) Entered as Reported by: MIKY CAMPBELL on 05/22/192115 Review of Systems Review of Systems Constitutional: no symptoms reported Eyes: No Symptoms Reported Ears: No Symptoms Reported Nose: see HPI Mouth: no symptoms reported Throat: see HPI Respiratory: no symptoms reported Cardiovascular: no symptoms reported Gastrointestinal: no symptoms reported Musculoskeletal: no symptoms reported Skin: no symptoms reported Neurological: No Symptoms Reported Hematologic/Lymphatic: No Symptoms Reported Immunological/Allergic: no symptoms reported Past Nwmdylv-Vuairl-Xandun Hx Patient Social History Tobacco Use?: No Use of E-Cig and/or Vaping dev: No Substance use?: No Alcohol Use?: No Pt feels they are or have been: No Immunizations Up To Date Tetanus Booster (TDap): Unknown PED Vaccines UTD: Yes First/Initial COVID19 Vaccinat: [employer]in[employer] Second COVID19 Vaccination Adair: [employer] Third COVID19 Vaccination Date: [employer] Seasonal Allergies Seasonal Allergies: No Past Medical History Surgery/Hospitalization HX: Cardiac hx, stroke pacemaker replacement 3x hysterectomy, cholecystectomy, , htn, high cholesterol. Surgeries: Yes (PACER/DEFIB 2014; DEFIB PLACED 05/10/19. PEG TUBE- REMOVED;UTERINE ABLATION) Abdominal, Section, Defibrillator, Gallbladder, Hysterectomy, Pacemaker Respiratory: Yes (ARDS-CODED; PNEUMOTHORAX 06/2015) Pneumonia, Chronic Bronchitis Currently Using CPAP: No Currently Using BIPAP: No Cardiac: Yes (PULMONARY EDEMA/CARDIAC CAUSE-R/T ATRIAL THROMBUS; CARDIAC ARREST;V-FIB ) Cardiomyopathy, Endocarditis, Hypertension, Valvular Heart Disease Neurological: Yes (encephalopathy-hypoxia, anoxic brain injury; POOR MEMORY;SLURRED SPEECH) Reproductive Disorders: Yes (ENDOMETRIAL ABLATION) Female Reproductive Disorders: Menstrual Problems Sexually Transmitted Disease: No Genitourinary: Yes Renal Failure Gastrointestinal: Yes Gastroesophageal Reflux Musculoskeletal: Yes (GAIT DISTURBANCE) Endocrine: No (OBESITY) HEENT: No Loss of Vision: Denies Hearing Impairment: Denies Cancer: No Psychosocial: Yes Anxiety, Bipolar, Depression Integumentary: No Blood Disorders: Yes (ANEMIA) Family Medical History Patient reports no known family medical history. No Pertinent Family Hx SOCIAL HISTORY: -OCCASIONAL ETOH -HX OF IV METH USE, CLAIMS NO USE SINCE 2016 -QUIT SMOKING SEVERAL YEARS AGO Physical Exam Vital Signs Vital Signs - First Documented 06/10/22 19:55 Temp 36.7 Pulse 81 Resp 17 B/P (MAP) 173/105 (127) Pulse Ox 99 O2 Delivery Room Air Height, Weight, BMI Height: 5'3.00" Weight: 234lbs. 0oz. 106.216745ht; 42.00 BMI Method:Stated General Appearance: mild distress Eyes: bilateral eye normal inspection, bilateral eye PERRL, bilateral eye EOMI Ears: bilateral ear auricle normal, bilateral ear TM normal Nose: normal inspection Mouth/Throat: pharynx swelling; No tonsillar exudate; tonsillar swelling Neck: non-tender, full range of motion, supple Cardiovascular: normal peripheral pulses, regular rate, rhythm Respiratory: chest non-tender, lungs clear, normal breath sounds, no respiratory distress Neurologic/Psychiatric: no motor/sensory deficits Skin: normal color Progress/Results/Core Measures Results/Orders Lab Results Laboratory Tests Test 06/10/22 20:15 Range/Units SARS-CoV-2 RNA (RT-PCR) Not Detected Not Detecte Group A Streptococcus Screen NEGATIVE NEGATIVE My Orders Orders - RADHA JENKINS MD Covid 19 Inhouse Test (06/10/22 20:13) Rapid Strep A Screen (06/10/22 20:13) Lidocaine 2% Viscous 15 Ml (Xylocaine Vi (06/10/22 20:45) Medications Given in ED Current Medications Medications Dose Ordered Sig/Mikal Route Start Time Stop Time Status Last Admin Dose Admin Lidocaine HCl 5 ml ONCE ONCE PO 06/10/22 20:45 06/10/22 20:46 DC 06/10/22 20:49 5 ML Vital Signs/I&O 06/10/22 19:55 Temp 36.7 Pulse 81 Resp 17 B/P (MAP) 173/105 (127) Pulse Ox 99 O2 Delivery Room Air Blood Pressure Mean: 127 Progress Progress Note : Progress Note Evaluation of patient in ER showed 31-year-old female patient with multiple medical problems and complaining of sore throat and nasal congestion and headache for the last 3 days. Patient had negative rapid strep and COVID test. Patient had enlarged tonsils without exudate. Patient treated with lidocaine viscus in ER and felt better. Patient advised to continue home medication and prescription for Z-Lai and Afrin nasal spray was given. Departure Impression Primary Impression: Acute tonsillitis Disposition: HOME, SELF-CARE Condition: Improved Departure-Patient Inst. Decision time for Depature: 20:54 Referrals: BROWN NGUYEN APRN (PCP/Family) Primary Care Physician Patient Instructions: Sore Throat, Adult ED Add. Discharge Instructions: Take ibuprofen and Tylenol as needed for pain Follow-up with your primary care physician or return to ER as needed All discharge instructions reviewed with patient and/or family. Voiced understanding. Scripts Oxymetazoline HCl (Afrin) 0.05 % Honaker 2 SPRAY NS QID PRN for nasal congestion for 3 Days, #1 EACH Prov: RADHA JENKINS MD 06/10/22 Azithromycin (Azithromycin) 250 Mg Tablet 250 MG PO DAILY, #4 TAB 0 Refills Prov: RADHA JENKINS MD 06/10/22 RADHA JENKINS MD Jun 10, 2022 20:32
[2022-06-10] MEDS ORDERED: LIDOCAINE 2% VISCOUS 15 ML UDC PO ONE (20:45)
[2022-06-10] MEDS ORDERED: OXYM30SP25 NS (20:57)
[2022-06-10] MEDS ORDERED: AZIT250T12 PO (20:57)
[2022-06-10 21:05] VITALS: BP 173/105
[2022-06-11] MEDS ORDERED: ACHD5005 PO (23:12)
== END 2022-06-10 21:05 | disposition home or self-care (01) ==
LOC: EDUNIT# 19:51 → ER FS 19:52
DX: J03.90 Acute tonsillitis, unspecified (principal); E66.9 Obesity, unspecified; Z68.41 Body mass index [BMI] 40.0-44.9, adult; Z20.822 Contact with and (suspected) exposure to COVID-19
CPT/HCPCS: 87430; 87636; 99283

== ENCOUNTER 2022-06-11 22:36 | Emergency (ER) | payer MEDICARE, MEDICAID ==
[~2022-06-11] VITALS: Ht 160 cm; Wt 100.0 kg
[~2022-06-11 22:36] MED LIST changes: +AZIT250T12 PO; +OXYM30SP25 NS
--- NOTE | 2022-06-11 22:45 | ED EENT ---
History of Present Illness General Stated Complaint: SORE THROAT Source: patient, old records History of Present Illness Date Seen by Provider: Jun 11, 2022 Time Seen by Provider: 22:40 Initial Comments 31-year-old female presents with continued throat pain and difficulty swallowing since being seen yesterday. She states that the lidocaine that she was given was not helping with her pain. She had even tried taking ibuprofen without relief. She still has painful swallowing and has not been eating and drinking normally. She did not fill the prescriptions that were prescribed at the ED visit last night and she states that she was helping her brother throughout the day. Since the pain was still hurting and she felt like it was worse she came back to the emergency department. She had a negative COVID and rapid strep test done yesterday and the culture on the strep test is still pending. Timing/Duration: abrupt, other (Over the last 3 to 4 days) Location: throat Prearrival Treatment: over the counter meds Modifying Factors: Worse With Other (Swallowing makes pain worse) Associated Symptoms: No change in hearing, No cough, No drooling, No ear drainage, No facial pain/swelling, No fever, No malaise; nasal congestion/drainage, poor fluid intake, poor solids intake; No sinus infection; sore throat Allergies and Home Medications Allergies Coded Allergies: JIA Inhibitors (Verified Allergy, Severe, 05/22/19) ARB-Angiotensin Receptor Antagonist (Verified Allergy, Severe, 05/22/19) amoxicillin (Verified Allergy, Unknown, 05/28/21) baclofen (Unverified Allergy, Unknown, 05/22/19) ON H&P clavulanic acid (Verified Allergy, Unknown, 05/28/21) phenazopyridine (Unverified Allergy, Unknown, 05/22/19) ON H&P Patient Home Medication List Home Medication List Reviewed: Yes Albuterol Sulfate (Rx-Proair) 8 Gm Hfa.aer.ad, 2 PUFF INH Q6H PRN for SHORTNESS OF BREATH, (Reported) Entered as Reported by: BROWN SCHULER on 03/21/15 1434 Amlodipine Besylate (Amlodipine Besylate) 10 Mg Tablet, 10 MG PO DAILY, (Reported) Entered as Reported by: TUNG HELTON on 07/23/15 0737 Apixaban (Eliquis) 5 Mg Tablet, 5 MG PO BID Prescribed by: RALPH DELCID on 11/01/18 1856 Azithromycin (Azithromycin) 250 Mg Tablet, 250 MG PO DAILY Prescribed by: Radha mayo on 06/10/222056 Biotin (Biotin) 5,000 Mcg Tab.rapdis, (Reported) Entered as Reported by: MIKY CAMPBELL on 05/22/192116 Clindamycin HCl (Clindamycin HCl) 300 Mg Capsule, 300 MG PO QID Prescribed by: KEYA LENTZ on 03/11/222202 Cyclobenzaprine HCl (Cyclobenzaprine HCl) 10 Mg Tablet, 10 MG PO BID PRN for chest wall pain/muscle spasm Prescribed by: EDISON CHAMBERLAIN on 12/24/21 020 Diphenoxylate HCl/Atropine (Lomotil 2.5-0.025 mg Tablet) 1 Each Tablet, 1 EACH PO BID PRN for DIARRHEA Prescribed by: ORESTES VELASCO on 11/29/19 230 Epinephrine (Epinephrine) 0.3 Mg/0.3 Ml Auto.injct, 0.3 MG IJ PRN Prescribed by: MOUNIKA GARCIA on 05/28/21 0932 Famotidine (Famotidine) 20 Mg Tablet, (Reported) Entered as Reported by: TALISHA CELIS on 08/05/18 181 Gabapentin (Gabapentin) 100 Mg Capsule, 100 MG PO Q8H PRN for burning pain/neuropathy thumb Prescribed by: EDISON CHAMBERLAIN on 04/14/22 0337 Hydrocodone/Acetaminophen (Hydrocodone-Acetamin 5-325 mg) 1 Each Tablet, 1 TAB PO Q4H PRN for PAIN-MODERATE (5-7) Prescribed by: KEYA LENTZ on 03/11/222203 Hydrocodone/Acetaminophen (Hydrocodone-Acetamin 5-325 mg) 5 Mg-325 Mg Tablet, 1 TAB PO Q6H PRN for PAIN-SEVERE (8-10) Prescribed by: EDISON CHAMBERLAIN on 06/11/22 231 Metoprolol Tartrate (Metoprolol Tartrate) 50 Mg Tablet, 50 MG PO BID Prescribed by: FELECIA FORTUNE on 07/24/15 0841 Ondansetron (Ondansetron Odt) 4 Mg Tab.rapdis, 4 MG PO Q6H PRN for NAUSEA/VOMITING Prescribed by: EDISON CHAMBERLAIN on 12/03/212158 Oxymetazoline HCl (Afrin) 0.05 % [place], 2 SPRAY NS QID PRN for nasal congestion Prescribed by: Radha mayo on 06/10/222056 Ropinirole HCl (Ropinirole HCl) 0.5 Mg Tablet, (Reported) Entered as Reported by: TALISHA CELIS on 08/05/181809 Sacubitril/Valsartan (Entresto 24 mg-26 mg Tablet) 1 Each Tablet, (Reported) Entered as Reported by: TALISHA CELIS on 08/05/181809 [Clonidine Hydrochloride .2 Mg ] , (Reported) Entered as Reported by: MIKY CAMPBELL on 05/22/192115 [Meloxicam 15 Mg Tabs] , (Reported) Entered as Reported by: MIKY CAMPBELL on 05/22/192115 [Metoprolol Tartrate 100 Mg Tab] , (Reported) Entered as Reported by: MIKY CAMPBELL on 05/22/191929 [Olanzapine 10 Mg Tabs] , (Reported) Entered as Reported by: MIKY CAMPBELL on 05/22/192115 [Oxcarbazepine 300 Mg Tabs] , (Reported) Entered as Reported by: MIKY CAMPBELL on 05/22/192115 Review of Systems Review of Systems Constitutional: No chills, No fever Eyes: No Symptoms Reported Ears: No Symptoms Reported Nose: see HPI, congestion; denies epistaxis, denies pain, denies bloody discharge, denies purulent discharge Mouth: no symptoms reported Throat: pain, swelling, hoarse, painful swallowing Respiratory: no symptoms reported Cardiovascular: no symptoms reported Gastrointestinal: no symptoms reported Musculoskeletal: no symptoms reported Skin: No rash Neurological: Denies Headache Past Wamxyow-Wpgkgo-Hbtaxf Hx Patient Social History Tobacco Use?: No Substance use?: No Alcohol Use?: No Immunizations Up To Date Tetanus Booster (TDap): Unknown PED Vaccines UTD: Yes First/Initial COVID19 Vaccinat: [employer] Second COVID19 Vaccination [place]: [employer] Third COVID19 Vaccination Date: [employer] Seasonal Allergies Seasonal Allergies: No Past Medical History Surgery/Hospitalization HX: Cardiac hx, stroke pacemaker replacement 3x hysterectomy, cholecystectomy, , htn, high cholesterol. Surgeries: Yes (PACER/DEFIB 2014; DEFIB PLACED 05/10/19. PEG TUBE- REMOVED;UTERINE ABLATION) Abdominal, Section, Defibrillator, Gallbladder, Hysterectomy, Pacemaker Respiratory: Yes (ARDS-CODED; PNEUMOTHORAX 06/2015) Pneumonia, Chronic Bronchitis Currently Using CPAP: No Currently Using BIPAP: No Cardiac: Yes (PULMONARY EDEMA/CARDIAC CAUSE-R/T ATRIAL THROMBUS; CARDIAC ARREST;V-FIB ) Cardiomyopathy, Endocarditis, Hypertension, Valvular Heart Disease Neurological: Yes (encephalopathy-hypoxia, anoxic brain injury; POOR MEMORY;SLURRED SPEECH) Reproductive Disorders: Yes (ENDOMETRIAL ABLATION) Female Reproductive Disorders: Menstrual Problems Sexually Transmitted Disease: No Genitourinary: Yes Renal Failure Gastrointestinal: Yes Gastroesophageal Reflux Musculoskeletal: Yes (GAIT DISTURBANCE) Endocrine: No (OBESITY) HEENT: No Loss of Vision: Denies Hearing Impairment: Denies Cancer: No Psychosocial: Yes Anxiety, Bipolar, Depression Integumentary: No Blood Disorders: Yes (ANEMIA) Family Medical History Patient reports no known family medical history. 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 0oz. 106.479091vt; 42.00 BMI Method:Stated General Appearance: WD/WN, no apparent distress, obese Eyes: bilateral eye PERRL, bilateral eye EOMI Ears: bilateral ear TM normal Mouth/Throat: pharynx swelling, pharynx tenderness; No tonsillar exudate; tonsillar swelling Neck: full range of motion, supple Cardiovascular: normal peripheral pulses, regular rate, rhythm Respiratory: chest non-tender, lungs clear, normal breath sounds Neurologic/Psychiatric: alert, oriented x 3 Skin: normal color, warm/dry; No rash Progress/Results/Core Measures Results/Orders My Orders Orders - EDISON CHAMBERLAIN MD Dexamethasone Injection (Decadron Inje (06/11/22 23:03) Azithromycin Tablet (Zithromax Tablet) (06/11/22 23:03) Rx-Hydrocodone/Apap 5-325 Mg (Rx-Vicodin (06/11/22 23:15) Medications Given in ED Current Medications Medications Dose Ordered Sig/Mikal Route Start Time Stop Time Status Last Admin Dose Admin Acetaminophen/ Hydrocodone Bitart 1 ea Q4H PRN PO 06/11/22 23:15 06/11/22 23:09 1 EA Vital Signs/I&O 06/11/22 06/11/22 22:40 23:15 Temp 36.4 36.4 Pulse 81 81 Resp 17 17 B/P (MAP) 171/115 (133) 171/115 Pulse Ox 98 98 O2 Delivery Room Air Room Air Progress Progress Note : Progress Note Reviewed test results with the patient from yesterday. Counseled on culture process for strep test. Will administer steroid dose of Decadron 10 mg IM to try and help with pain and swelling. Hydrocodone for severe pain. Second dose of azithromycin since she did not fill her prescription. Advised that this would treat for bacterial source of her throat pain. Push fluids and rest. Fill prescriptions that were sent by ED physician yesterday. We will add on a few pain pills for the next 24 to 48 hours to help with her symptoms. Departure Impression Primary Impression: Acute tonsillitis Qualified Codes: J03.90 - Acute tonsillitis, unspecified Disposition: HOME, SELF-CARE Condition: Stable Departure-Patient Inst. Decision time for Depature: 23:09 Referrals: BROWN NGUYEN APRN (PCP/Family) Primary Care Physician Patient Instructions: Sore Throat, Adult ED Add. Discharge Instructions: Take the antibiotics and medicine prescribed by Dr. Mayo yesterday. This would help treat for possible strep throat. The steroid shot tonight will help with pain and swelling. It may make your sugars run higher for a day or two. For severe pain may take the hydrocodone/acetaminophen 5/325 mg pills at a dose of 1 pill every 4 hours as needed for pain for 1st day then 1 pill every 6 hours as needed for severe pain for 2nd day Check back with the clinic next week if continued symptoms Scripts Hydrocodone/Acetaminophen (Hydrocodone-Acetamin 5-325 mg) 5 Mg-325 Mg Tablet 1 TAB PO Q6H PRN for PAIN-SEVERE (8-10) for 2 Days, #8 TAB 0 Refills Prov: EDISON CHAMBERLAIN MD 06/11/22 EDISON CHAMBERLAIN MD Jun 11, 2022 22:45
[2022-06-11] MEDS ORDERED: AZITHROMYCIN 250 MG TAB (ZITHROMAX) PO STA (23:03)
[2022-06-11] MEDS ORDERED: ACHD5005 PO (23:12)
[2022-06-11 23:15] VITALS: BP 171/115
== END 2022-06-11 23:15 | disposition home or self-care (01) ==
LOC: EDUNIT# 22:36 → ER FS 22:37
DX: J03.90 Acute tonsillitis, unspecified (principal); E66.9 Obesity, unspecified; Z68.41 Body mass index [BMI] 40.0-44.9, adult
CPT/HCPCS: 99284

== ENCOUNTER 2022-06-17 23:03 | Emergency (ER) | payer MEDICARE, MEDICAID ==
[~2022-06-17] VITALS: Ht 160 cm; Wt 108.0 kg
[2022-06-17] MEDS ORDERED: CLINDAMYCIN 150 MG (CLEOCIN) CAP PO STA (23:18)
--- NOTE | 2022-06-17 23:25 | ED EENT ---
History of Present Illness General Chief Complaint: Oral/Throat Problems Stated Complaint: SORE THROAT Source: patient, old records History of Present Illness Date Seen by Provider: Jun 17, 2022 Time Seen by Provider: 23:07 Initial Comments 31-year-old female presenting with complaints of recurrent sore throat. She states that she got better for a couple of days after treatment when she was seen last week however in the last day or 2 she has had severe throat pain recu r. She denies fever or chills. She does have sinus pain and pressure as well. Her mother is sick with some similar symptoms and was sick prior to SAL. She has not been having a cough but has had some sinus drainage. She has pain with swallowing but is still swallowing her own saliva and able to eat and drink just having pain with it. She states that she feels like she is maxing out on Tylenol and she even took ibuprofen even though she is not supposed to take NSAIDs while taking her blood thinners. Timing/Duration: abrupt Severity: severe Location: throat Prearrival Treatment: over the counter meds, prescription meds Modifying Factors: Worse With Other (swallowing makes the pain worse) Associated Symptoms: No change in hearing, No cough, No drooling, No ear drainage, No facial pain/swelling, No fever, No malaise; nasal congestion/drainage; No poor fluid intake, No poor solids intake, No sinus infection; sore throat; No tooth pain, No voice change; other (Sinus pain and pressure) Allergies and Home Medications Allergies Coded Allergies: JIA Inhibitors (Verified Allergy, Severe, 05/22/19) ARB-Angiotensin Receptor Antagonist (Verified Allergy, Severe, 05/22/19) amoxicillin (Verified Allergy, Unknown, 05/28/21) baclofen (Unverified Allergy, Unknown, 05/22/19) ON H&P clavulanic acid (Verified Allergy, Unknown, 05/28/21) phenazopyridine (Unverified Allergy, Unknown, 05/22/19) ON H&P Patient Home Medication List Home Medication List Reviewed: Yes Albuterol Sulfate (Rx-Proair) 8 Gm Hfa.aer.ad, 2 PUFF INH Q6H PRN for SHORTNESS OF BREATH, (Reported) Entered as Reported by: BROWN SCHULER on 03/21/15 3914 Amlodipine Besylate (Amlodipine Besylate) 10 Mg Tablet, 10 MG PO DAILY, (Reported) Entered as Reported by: TUNG HELTON on 07/23/15 0737 Apixaban (Eliquis) 5 Mg Tablet, 5 MG PO BID Prescribed by: RALPH DELCID on 11/01/18 1856 Azithromycin (Azithromycin) 250 Mg Tablet, 250 MG PO DAILY Prescribed by: Radha mayo on 06/10/22 205 Biotin (Biotin) 5,000 Mcg Tab.rapdis, (Reported) Entered as Reported by: MIKY CAMPBELL on 05/22/19 211 Clindamycin HCl (Clindamycin HCl) 300 Mg Capsule, 300 MG PO QID Prescribed by: KEYA LENTZ on 03/11/222202 Clindamycin HCl (Clindamycin HCl) 300 Mg Capsule, 300 MG PO TID Prescribed by: EDISON CHAMBERLAIN on 06/17/22 2334 Cyclobenzaprine HCl (Cyclobenzaprine HCl) 10 Mg Tablet, 10 MG PO BID PRN for chest wall pain/muscle spasm Prescribed by: EDISON CHAMBERLAIN on 12/24/21 0206 Diphenoxylate HCl/Atropine (Lomotil 2.5-0.025 mg Tablet) 1 Each Tablet, 1 EACH PO BID PRN for DIARRHEA Prescribed by: ORESTES VELASCO on 11/29/19 2309 Epinephrine (Epinephrine) 0.3 Mg/0.3 Ml Auto.injct, 0.3 MG IJ PRN Prescribed by: MOUNIKA GARCIA on 05/28/21 0932 Famotidine (Famotidine) 20 Mg Tablet, (Reported) Entered as Reported by: TALISHA CELIS on 08/05/18 1811 Gabapentin (Gabapentin) 100 Mg Capsule, 100 MG PO Q8H PRN for burning pain/neuropathy thumb Prescribed by: EDISON CHAMBERLAIN on 04/14/22 0337 Hydrocodone/Acetaminophen (Hydrocodone-Acetamin 5-325 mg) 1 Each Tablet, 1 TAB PO Q4H PRN for PAIN-MODERATE (5-7) Prescribed by: KEYA LENTZ on 03/11/22 220 Hydrocodone/Acetaminophen (Hydrocodone-Acetamin 5-325 mg) 5 Mg-325 Mg Tablet, 1 TAB PO Q6H PRN for PAIN-SEVERE (8-10) Prescribed by: EDISON CHAMBERLAIN on 06/17/22 2335 Metoprolol Tartrate (Metoprolol Tartrate) 50 Mg Tablet, 50 MG PO BID Prescribed by: FELECIA FORTUNE on 07/24/15 0841 Ondansetron (Ondansetron Odt) 4 Mg Tab.rapdis, 4 MG PO Q6H PRN for NAUSEA/VOMITING Prescribed by: EDISON CHAMBERLAIN on 12/03/21 2159 Oxymetazoline HCl (Afrin) 0.05 % [place], 2 SPRAY NS QID PRN for nasal congestion Prescribed by: Radha mayo on 06/10/222056 Ropinirole HCl (Ropinirole HCl) 0.5 Mg Tablet, (Reported) Entered as Reported by: TALISHA CELIS on 08/05/181809 Sacubitril/Valsartan (Entresto 24 mg-26 mg Tablet) 1 Each Tablet, (Reported) Entered as Reported by: TALISHA CELIS on 08/05/181809 [Clonidine Hydrochloride .2 Mg ] , (Reported) Entered as Reported by: MIKY CAMPBELL on 05/22/192115 [Meloxicam 15 Mg Tabs] , (Reported) Entered as Reported by: MIKY CAMPBELL on 05/22/192115 [Metoprolol Tartrate 100 Mg Tab] , (Reported) Entered as Reported by: MIKY CAMPBELL on 05/22/191929 [Olanzapine 10 Mg Tabs] , (Reported) Entered as Reported by: MIKY CAMPBELL on 05/22/192115 [Oxcarbazepine 300 Mg Tabs] , (Reported) Entered as Reported by: MIKY CAMPBELL on 05/22/192115 Review of Systems Review of Systems Constitutional: No chills, No fever Eyes: No Symptoms Reported Ears: No Symptoms Reported Nose: see HPI Mouth: no symptoms reported Throat: see HPI Respiratory: no symptoms reported Cardiovascular: no symptoms reported Gastrointestinal: no symptoms reported Musculoskeletal: no symptoms reported Skin: no symptoms reported Neurological: No Symptoms Reported Hematologic/Lymphatic: No Symptoms Reported Past Flguhqm-Iwseae-Hrdtgd Hx Patient Social History Tobacco Use?: No Immunizations Up To Date Tetanus Booster (TDap): Unknown PED Vaccines UTD: Yes First/Initial COVID19 Vaccinat: Pfizer Second COVID19 Vaccination [place]: Pfizer Third COVID19 Vaccination Date: [employer] Seasonal Allergies Seasonal Allergies: No Past Medical History Surgery/Hospitalization HX: Cardiac hx, stroke pacemaker replacement 3x hysterectomy, cholecystectomy, , htn, high cholesterol. Surgeries: Yes (PACER/DEFIB 2014; DEFIB PLACED 05/10/19. PEG TUBE- REMOVED;UTERINE ABLATION) Abdominal, Section, Defibrillator, Gallbladder, Hysterectomy, Pacemaker Respiratory: Yes (ARDS-CODED; PNEUMOTHORAX 06/2015) Pneumonia, Chronic Bronchitis Currently Using CPAP: No Currently Using BIPAP: No Cardiac: Yes (PULMONARY EDEMA/CARDIAC CAUSE-R/T ATRIAL THROMBUS; CARDIAC ARREST;V-FIB ) Cardiomyopathy, Endocarditis, Hypertension, Valvular Heart Disease Neurological: Yes (encephalopathy-hypoxia, anoxic brain injury; POOR MEMORY;SLURRED SPEECH) Reproductive Disorders: Yes (ENDOMETRIAL ABLATION) Female Reproductive Disorders: Menstrual Problems Sexually Transmitted Disease: No Genitourinary: Yes Renal Failure Gastrointestinal: Yes Gastroesophageal Reflux Musculoskeletal: Yes (GAIT DISTURBANCE) Endocrine: No (OBESITY) HEENT: No Loss of Vision: Denies Hearing Impairment: Denies Cancer: No Psychosocial: Yes Anxiety, Bipolar, Depression Integumentary: No Blood Disorders: Yes (ANEMIA) Family Medical History Patient reports no known family medical history. No Pertinent Family Hx SOCIAL HISTORY: -OCCASIONAL ETOH -HX OF IV METH USE, CLAIMS NO USE SINCE 2015 -QUIT SMOKING SEVERAL YEARS AGO Physical Exam Vital Signs Vital Signs - First Documented 06/17/22 23:08 Temp 36.5 Pulse 77 Resp 17 B/P (MAP) 168/122 (137) Pulse Ox 99 O2 Delivery Room Air Height, Weight, BMI Height: 5'3.00" Weight: 234lbs. 0oz. 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, alert, oriented x 3 Skin: normal color, warm/dry Progress/Results/Core Measures Results/Orders Lab Results Laboratory Tests Test 06/17/22 23:18 Range/Units Group A Streptococcus Screen NEGATIVE NEGATIVE My Orders Orders - EDISON CHAMBERLAIN MD Rapid Strep A Screen (06/17/22 23:18) Clindamycin Capsule (Cleocin Capsule) (06/17/22 23:18) Rx-Hydrocodone/Apap 5-325 Mg (Rx-Vicodin (06/17/22 23:30) Medications Given in ED Current Medications Medications Dose Ordered Sig/Mikal Route Start Time Stop Time Status Last Admin Dose Admin Acetaminophen/ Hydrocodone Bitart 1 ea Q6H PRN PO 06/17/22 23:30 06/17/22 23:23 1 EA Vital Signs/I&O 06/17/22 06/17/22 23:08 23:38 Temp 36.5 36.5 Pulse 77 77 Resp 17 17 B/P (MAP) 168/122 (137) 168/122 Pulse Ox 99 99 O2 Delivery Room Air Room Air Progress Progress Note #1: Progress Note COVID and strep were negative last week when she was seen. We will repeat the strep swab. Since she is not sure if she took an antibiotic for the Z-Lai or not will treat with clindamycin and have broader coverage for possible bacterial infection. Progress Note #2: Progress Note rapid strep was still negative. continue with plan as above. Departure Impression Primary Impression: Sore throat Additional Impression: Sinus pressure Disposition: 01 HOME, SELF-CARE Condition: Stable Departure-Patient Inst. Decision time for Depature: 23:31 Referrals: BROWN NGUYEN APRN (PCP/Family) Primary Care Physician Patient Instructions: Sore Throat, Adult ED, Sinusitis, Adult ED Add. Discharge Instructions: Drink plenty of fluids and stay well-hydrated. Take the full course of antibiotics to treat for possible bacterial infection of the throat as well as sinus infection in your sinuses. Check back with the clinic and your primary provider for continued concerns and if your throat is not improving All discharge instructions reviewed with patient and/or family. Voiced understanding. Scripts Clindamycin HCl (Clindamycin HCl) 300 Mg Capsule 300 MG PO TID for sinusitis/sore throat for 10 Days, #30 CAP 0 Refills Prov: EDISON CHAMBERLAIN MD 06/17/22 Hydrocodone/Acetaminophen (Hydrocodone-Acetamin 5-325 mg) 5 Mg-325 Mg Tablet 1 TAB PO Q6H PRN for PAIN-SEVERE (8-10) for 2 Days, #8 TAB 0 Refills Prov: EDISON CHAMBERLAIN MD 06/17/22 EDISON CHAMBERLAIN MD Jun 17, 2022 23:25
[2022-06-17] MEDS ORDERED: CLIN-144 PO (23:34)
[2022-06-17] MEDS ORDERED: ACHD5005 PO (23:34)
[2022-06-17 23:38] VITALS: BP 168/122
== END 2022-06-17 23:38 | disposition home or self-care (01) ==
LOC: EDUNIT# 23:03 → ER FS 23:05
DX: J02.9 Acute pharyngitis, unspecified (principal); J34.89 Other specified disorders of nose and nasal sinuses; E66.9 Obesity, unspecified; Z68.39 Body mass index [BMI] 39.0-39.9, adult
CPT/HCPCS: 87430; 99283

== ENCOUNTER 2022-07-07 00:19 | Emergency (ER) | payer MEDICARE, MEDICAID ==
[~2022-07-07] VITALS: Ht 160 cm; Wt 104.0 kg
--- NOTE | 2022-07-07 00:36 | ED General ---
General Chief Complaint: Cough/Cold/Flu Symptoms Stated Complaint: SINUS INFECTION Nursing Triage Note: Pt c/o sinus pressure and a headache x few days. Denies fever, cough, CP, or SOA. Source of Information: Patient Exam Limitations: No Limitations History of Present Illness Date Seen by Provider: Jul 07, 2022 Time Seen by Provider: 00:24 Initial Comments 31-year-old female coming in due to frontal headache that is been going on for roughly 3 days. Its moderate, constant, throbbing, and nothing seems to make it better or worse. She is concerned it could be her sinuses, but denies any congestion, cough, fever, shortness of breath, chest pain, rash, or any other symptoms. She does get headaches not infrequently. Allergies and Home Medications Allergies Coded Allergies: JIA Inhibitors (Verified Allergy, Severe, 05/22/19) ARB-Angiotensin Receptor Antagonist (Verified Allergy, Severe, 05/22/19) amoxicillin (Verified Allergy, Unknown, 05/28/21) baclofen (Unverified Allergy, Unknown, 05/22/19) ON H&P clavulanic acid (Verified Allergy, Unknown, 05/28/21) phenazopyridine (Unverified Allergy, Unknown, 05/22/19) ON H&P Patient Home Medication List Home Medication List Reviewed: Yes Albuterol Sulfate (Rx-Proair) 8 Gm Hfa.aer.ad, 2 PUFF INH Q6H PRN for SHORTNESS OF BREATH, (Reported) Entered as Reported by: BROWN SCHULER on 03/21/15 1434 Amlodipine Besylate (Amlodipine Besylate) 10 Mg Tablet, 10 MG PO DAILY, (Reported) Entered as Reported by: TUNG HELTON on 07/23/15 0737 Apixaban (Eliquis) 5 Mg Tablet, 5 MG PO BID Prescribed by: RALPH DELCID on 11/01/18 1856 Azithromycin (Azithromycin) 250 Mg Tablet, 250 MG PO DAILY Prescribed by: Radha mayo on 06/10/222056 Biotin (Biotin) 5,000 Mcg Tab.amarilisdis, (Reported) Entered as Reported by: MIKY CAMPBELL on 05/22/192116 Clindamycin HCl (Clindamycin HCl) 300 Mg Capsule, 300 MG PO QID Prescribed by: KEYA LENTZ on 03/11/222202 Clindamycin HCl (Clindamycin HCl) 300 Mg Capsule, 300 MG PO TID Prescribed by: EDISON CHAMBERLAIN on 06/17/22 233 Cyclobenzaprine HCl (Cyclobenzaprine HCl) 10 Mg Tablet, 10 MG PO BID PRN for chest wall pain/muscle spasm Prescribed by: EDISON CHAMBERLAIN on 12/24/21 0206 Diphenoxylate HCl/Atropine (Lomotil 2.5-0.025 mg Tablet) 1 Each Tablet, 1 EACH PO BID PRN for DIARRHEA Prescribed by: ORESTES VELASCO on 11/29/19 230 Epinephrine (Epinephrine) 0.3 Mg/0.3 Ml Auto.injct, 0.3 MG IJ PRN Prescribed by: MOUNIKA GARCIA on 05/28/21 0932 Famotidine (Famotidine) 20 Mg Tablet, (Reported) Entered as Reported by: TALISHA CELIS on 08/05/18 181 Gabapentin (Gabapentin) 100 Mg Capsule, 100 MG PO Q8H PRN for burning pain/n europathy thumb Prescribed by: EDISON CHAMBERLAIN on 04/14/22 0337 Hydrocodone/Acetaminophen (Hydrocodone-Acetamin 5-325 mg) 1 Each Tablet, 1 TAB PO Q4H PRN for PAIN-MODERATE (5-7) Prescribed by: KEYA LENTZ on 03/11/222203 Hydrocodone/Acetaminophen (Hydrocodone-Acetamin 5-325 mg) 5 Mg-325 Mg Tablet, 1 TAB PO Q6H PRN for PAIN-SEVERE (8-10) Prescribed by: EDISON CHAMBERLAIN on 06/17/22 233 Metoprolol Tartrate (Metoprolol Tartrate) 50 Mg Tablet, 50 MG PO BID Prescribed by: FELECIA FORTUNE on 07/24/15 0841 Ondansetron (Ondansetron Odt) 4 Mg Tab.rapdis, 4 MG PO Q6H PRN for NAUSEA/VOMITING Prescribed by: EDISON CHAMBERLAIN on 12/03/21 215 Oxymetazoline HCl (Afrin) 0.05 % [place], 2 SPRAY NS QID PRN for nasal congestion Prescribed by: Radha mayo on 06/10/222056 Ropinirole HCl (Ropinirole HCl) 0.5 Mg Tablet, (Reported) Entered as Reported by: TALISHA CELIS on 08/05/181809 Sacubitril/Valsartan (Entresto 24 mg-26 mg Tablet) 1 Each Tablet, (Reported) Entered as Reported by: TALISHA CELIS on 08/05/181809 [Clonidine Hydrochloride .2 Mg ] , (Reported) Entered as Reported by: MIKY CAMPBELL on 05/22/192115 [Meloxicam 15 Mg Tabs] , (Reported) Entered as Reported by: MIKY CAMPBELL on 05/22/192115 [Metoprolol Tartrate 100 Mg Tab] , (Reported) Entered as Reported by: MIKY CAMPBELL on 05/22/191929 [Olanzapine 10 Mg Tabs] , (Reported) Entered as Reported by: MIKY CAMPBELL on 05/22/192115 [Oxcarbazepine 300 Mg Tabs] , (Reported) Entered as Reported by: MIKY CAMPBELL on 05/22/192115 Review of Systems Review of Systems Constitutional: No fever EENTM: No blurred vision Respiratory: no symptoms reported Cardiovascular: no symptoms reported Gastrointestinal: no symptoms reported Genitourinary: no symptoms reported Musculoskeletal: no symptoms reported Skin: no symptoms reported Psychiatric/Neurological: Headache Hematologic/Lymphatic: No Symptoms Reported Immunological/Allergic: no symptoms reported All Other Systems Reviewed Negative Unless Noted: Yes Past Nwzuoti-Qlxsms-Nynhrs Hx Patient Social History Tobacco Use?: No Use of E-Cig and/or Vaping dev: No Substance use?: No Alcohol Use?: No Pt feels they are or have been: No Immunizations Up To Date Tetanus Booster (TDap): Unknown PED Vaccines UTD: Yes First/Initial COVID19 Vaccinat: Glassful Second COVID19 Vaccination Adair: Glassful Third COVID19 Vaccination Date: Glassful Seasonal Allergies Seasonal Allergies: No Past Medical History Surgery/Hospitalization HX: Cardiac hx, stroke pacemaker replacement 3x hysterectomy, cholecystectomy, , htn, high cholesterol. Surgeries: Yes (PACER/DEFIB 2014; DEFIB PLACED 05/10/19. PEG TUBE-REMOVED;UTERINE ABLATION) Abdominal, Section, Defibrillator, Gallbladder, Hysterectomy, Pacemaker Respiratory: Yes (ARDS-CODED; PNEUMOTHORAX 06/2015) Pneumonia, Chronic Bronchitis Currently Using CPAP: No Currently Using BIPAP: No Cardiac: Yes (PULMONARY EDEMA/CARDIAC CAUSE-R/T ATRIAL THROMBUS; CARDIAC ARREST;V-FIB ) Cardiomyopathy, Endocarditis, Hypertension, Valvular Heart Disease Neurological: Yes (encephalopathy-hypoxia, anoxic brain injury; POOR MEMORY;SLURRED SPEECH) Reproductive Disorders: Yes (ENDOMETRIAL ABLATION) Female Reproductive Disorders: Menstrual Problems Sexually Transmitted Disease: No Genitourinary: Yes Renal Failure Gastrointestinal: Yes Gastroesophageal Reflux Musculoskeletal: Yes (GAIT DISTURBANCE) Endocrine: No (OBESITY) HEENT: No Loss of Vision: Denies Hearing Impairment: Denies Cancer: No Psychosocial: Yes Anxiety, Bipolar, Depression Integumentary: No Blood Disorders: Yes (ANEMIA) Family Medical History Patient reports no known family medical history. 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 0oz. 106.948459iw; 40.00 BMI Method:Stated General Appearance: No Apparent Distress, WD/WN Eyes: Bilateral Eye Normal Inspection HEENT: PERRL/EOMI, TMs Normal, Normal ENT Inspection, Pharynx Normal Neck: Full Range of Motion, Normal Inspection, Non Tender, Supple Respiratory: Chest Non Tender, Lungs Clear, Normal Breath Sounds, No Accessory Muscle Use, No Respiratory Distress Cardiovascular: Regular Rate, Rhythm, No Edema, Normal Peripheral Pulses Gastrointestinal: Normal Bowel Sounds, Non Tender, Soft Back: Normal Inspection, No CVA Tenderness Extremity: Normal Capillary Refill, Normal Inspection, Normal Range of Motion, Non Tender, No Calf Tenderness, No Pedal Edema Neurologic/Psychiatric: Alert, No Motor/Sensory Deficits, Normal Mood/Affect Skin: Normal Color, Warm/Dry Lymphatic: No Adenopathy Progress/Results/Core Measures Suspected Sepsis SIRS Temperature: Pulse: 69 Respiratory Rate: 17 Blood Pressure 141 /109 Mean: 120 Results/Orders My Orders Orders - MATY KHAN MD Prochlorperazine Injection (Compazine In (07/07/22 00:45) Diphenhydramine Injection (Benadryl Inje (07/07/22 00:45) Dexamethasone Injection (Decadron Inje (07/07/22 00:45) Acetaminophen Tablet (Tylenol Tablet) (07/07/22 00:45) Vital Signs/I&O 07/07/22 00:25 Temp 36.0 Pulse 69 Resp 17 B/P (MAP) 141/109 (120) Pulse Ox 98 O2 Delivery Room Air Capillary Refill : Blood Pressure Mean: 120 Progress Note : Progress Note 31-year-old female with above history coming in for what she says is sinusitis but really sounds like a headache. She has no infectious symptoms at all including no congestion. Headaches are not uncommon for her. Neuro exam is normal and she has no red flags. She is well-appearing. We will give her IM Compazine, Benadryl, and Decadron for her headache. She has no signs of bacterial sinusitis that would benefit from antibiotics. I believe she is stable for discharge with outpatient follow-up. She was sent home with strict return precautions. Departure Impression Primary Impression: Headache Qualified Codes: G44.209 - Tension-type headache, unspecified, not intractable Additional Impression: Sinus pressure Disposition: 01 HOME, SELF-CARE Condition: Stable Departure-Patient Inst. Decision time for Depature: 00:45 Referrals: BROWN NGUYEN APRN (PCP/Family) Primary Care Physician Patient Instructions: Headache, Adult ED, Sinusitis, Adult ED Add. Discharge Instructions: I recommend buying some saline spray to go in your nose to help rinse it out. You can also buy [id number] Zyrtec for congestion. Take Tylenol as needed for pain. If symptoms persist for more than 10 days, you start developing fever, or get better and then get worse again after couple days, then I recommend following up with your doctor again. Work/School Note: Work Release Form Date Seen in the Emergency Department: Jul 07, 2022 Return to Work: Jul 08, 2022 Restrictions: No Restrictions MATY KHAN MD Jul 07, 2022 00:36
[2022-07-07 00:45] VITALS: BP 141/109
[2022-07-07] MEDS ORDERED: ACETAMINOPHEN 500 MG TAB (TYLENOL) PO ONE (00:45)
[2022-07-07] MEDS ORDERED: diphenhydrAMINE 50 MG/ML INJ (BENADRYL) IM ONE (00:45)
[2022-07-07] MEDS ORDERED: PROCHLORPERAZINE 10 MG/2ML INJ (COMPAZINE) IM ONE (00:45)
== END 2022-07-07 00:45 | disposition home or self-care (01) ==
LOC: EDUNIT# 00:19 → ER FS 00:21
DX: J34.89 Other specified disorders of nose and nasal sinuses (principal)
CPT/HCPCS: 99284

== ENCOUNTER 2022-10-10 19:24 | Emergency (ER) | payer MEDICARE, MEDICAID ==
[~2022-10-10 19:24] MED LIST changes: +LORA-1389 PO; -LORA-53 PO
--- NOTE | 2022-10-10 19:40 | ED Lower Extremity ---
General Chief Complaint: Lower Extremity Stated Complaint: LEFT ANKLE INJURY Nursing Triage Note: PT ARRIVAL TO ER VIA PRIVATE VEHICLE FROM HOME WITH OBVIOUS LIMP. PATIENT STATES THAT SHE ROLLED LEFT ANKLE TWO DAYS AGO. PATIENT HAS TRIED ICING IT, WRAPPING IT, IBUPROFEN, TYLENOL, AND MUSLCE RELAXERS WITH PAIN WORSENING. NO OBVIOUS DEFORMITY OR SWELLING. PAIN AT A 6/10. Source: patient Exam Limitations: no limitations (CARLTON TAFOYA APRN) History of Present Illness Date Seen by Provider: Oct 10, 2022 Time Seen by Provider: 19:40 Initial Comments 32 y/o female presents this evening with c/o left ankle pain and swelling. Pt states she injured the ankle 4 days ago, she is uncertain exactly what happened. She has been ambulating on it, but has been very painful. She has been taking tylenol for pain, last dose was an hour ago. Onset: other (4 days ago) Pain/Injury Location: left ankle Method of Injury: unknown Modifying Factors: Worse With Movement; Improves With Rest (CARLTON TAFOYA APRN) Allergies and Home Medications Allergies Coded Allergies: ODILON Inhibitors (Verified Allergy, Severe, 05/22/19) ARB-Angiotensin Receptor Antagonist (Verified Allergy, Severe, 05/22/19) amoxicillin (Verified Allergy, Unknown, 05/28/21) baclofen (Unverified Allergy, Unknown, 05/22/19) ON H&P clavulanic acid (Verified Allergy, Unknown, 05/28/21) phenazopyridine (Unverified Allergy, Unknown, 05/22/19) ON H&P Patient Home Medication List Home Medication List Reviewed: Yes (CARLTON TAFOYA APRN) Albuterol Sulfate (Rx-Proair) 8 Gm Hfa.aer.ad, 2 PUFF INH Q6H PRN for SHORTNESS OF BREATH, (Reported) Entered as Reported by: BROWN SCHULER on 03/21/15 1434 Amlodipine Besylate (Amlodipine Besylate) 10 Mg Tablet, 10 MG PO DAILY, (Reported) Entered as Reported by: TUNG HELTON on 07/23/15 0737 Apixaban (Eliquis) 5 Mg Tablet, 5 MG PO BID Prescribed by: RALPH DELCID on 11/01/18 5066 Azithromycin (Azithromycin) 250 Mg Tablet, 250 MG PO DAILY Prescribed by: Radha mayo on 06/10/222056 Biotin (Biotin) 5,000 Mcg Tab.rapdis, (Reported) Entered as Reported by: MIKY CAMPBELL on 05/22/192116 Clindamycin HCl (Clindamycin HCl) 300 Mg Capsule, 300 MG PO QID Prescribed by: KEYA LENTZ on 03/11/222202 Clindamycin HCl (Clindamycin HCl) 300 Mg Capsule, 300 MG PO TID Prescribed by: EDISON CHAMBERLAIN on 06/17/22 233 Cyclobenzaprine HCl (Cyclobenzaprine HCl) 10 Mg Tablet, 10 MG PO BID PRN for chest wall pain/muscle spasm Prescribed by: EDISON CHAMBERLAIN on 12/24/21 0206 Diphenoxylate HCl/Atropine (Lomotil 2.5-0.025 mg Tablet) 1 Each Tablet, 1 EACH PO BID PRN for DIARRHEA Prescribed by: ORESTES VELASCO on 11/29/19 230 Epinephrine (Epinephrine) 0.3 Mg/0.3 Ml Auto.injct, 0.3 MG IJ PRN Prescribed by: MOUNIKA GARCIA on 05/28/21 0932 Famotidine (Famotidine) 20 Mg Tablet, (Reported) Entered as Reported by: TALISHA CELIS on 08/05/18 181 Gabapentin (Gabapentin) 100 Mg Capsule, 100 MG PO Q8H PRN for burning pain/neuropathy thumb Prescribed by: EDISON CHAMBERLAIN on 04/14/22 0337 Hydrocodone/Acetaminophen (Hydrocodone-Acetamin 5-325 mg) 1 Each Tablet, 1 TAB PO Q4H PRN for PAIN-MODERATE (5-7) Prescribed by: KEYA LENTZ on 03/11/222203 Hydrocodone/Acetaminophen (Hydrocodone-Acetamin 5-325 mg) 5 Mg-325 Mg Tablet, 1 TAB PO Q6H PRN for PAIN-SEVERE (8-10) Prescribed by: EDISON CHAMBERLAIN on 06/17/22 233 Metoprolol Tartrate (Metoprolol Tartrate) 50 Mg Tablet, 50 MG PO BID Prescribed by: FELECIA FORTUNE on 07/24/15 0841 Ondansetron (Ondansetron Odt) 4 Mg Tab.rapdis, 4 MG PO Q6H PRN for XAVIER SEA/VOMITING Prescribed by: EDISON CHAMBERLAIN on 12/03/212158 Oxymetazoline HCl (Afrin) 0.05 % [place], 2 SPRAY NS QID PRN for nasal congestion Prescribed by: Radha mayo on 06/10/222056 Ropinirole HCl (Ropinirole HCl) 0.5 Mg Tablet, (Reported) Entered as Reported by: TALISHA CELIS on 08/05/181809 Sacubitril/Valsartan (Entresto 24 mg-26 mg Tablet) 1 Each Tablet, (Reported) Entered as Reported by: TALISHA CELIS on 08/05/181809 [Clonidine Hydrochloride .2 Mg ] , (Reported) Entered as Reported by: MIKY CAMPBELL on 05/22/192115 [Meloxicam 15 Mg Tabs] , (Reported) Entered as Reported by: MIKY CAMPEBLL on 05/22/192115 [Metoprolol Tartrate 100 Mg Tab] , (Reported) Entered as Reported by: MIKY CAMPBELL on 05/22/191929 [Olanzapine 10 Mg Tabs] , (Reported) Entered as Reported by: MIKY CAMPBELL on 05/22/192115 [Oxcarbazepine 300 Mg Tabs] , (Reported) Entered as Reported by: MIKY CAMPBELL on 05/22/192115 Review of Systems Constitutional: no symptoms reported Musculoskeletal: joint pain; No muscle pain, No muscle stiffness, No muscle weakness Skin: no symptoms reported (CARLTON TAFOYA APRN) Past Imoxjuk-Zbzmml-Quykei Hx Patient Social History Tobacco Use?: No Use of E-Cig and/or Vaping dev: No Substance use?: No Alcohol Use?: No Pt feels they are or have been: No (CARLTON TAFOYA APRN) Immunizations Up To Date Tetanus Booster (TDap): Unknown PED Vaccines UTD: Yes Influenza Vaccine Up-to-Date: Yes; Up-to-Date First/Initial COVID19 Vaccinat: Pfizer Second COVID19 Vaccination Adair: Pfizer Third COVID19 Vaccination Date: Pfizer (CARLTON TAFOYA APRN) Seasonal Allergies Seasonal Allergies: No (CARLTON TAFOYA APRN) Past Medical History Surgery/Hospitalization HX: Cardiac hx, stroke pacemaker replacement 3x hysterectomy, cholecystectomy, , htn, high cholesterol. Surgeries: Yes (PACER/DEFIB 2014; DEFIB PLACED 05/10/19. PEG TUBE- REMOVED;UTERINE ABLATION) Abdominal, Section, Defibrillator, Gallbladder, Hysterectomy, Pacemaker Respiratory: Yes (ARDS-CODED; PNEUMOTHORAX 06/2015) Pneumonia, Chronic Bronchitis Currently Using CPAP: No Currently Using BIPAP: No Cardiac: Yes (PULMONARY EDEMA/CARDIAC CAUSE-R/T ATRIAL THROMBUS; CARDIAC ARREST ;V-FIB ) Cardiomyopathy, Endocarditis, Hypertension, Valvular Heart Disease Neurological: Yes (encephalopathy-hypoxia, anoxic brain injury; POOR MEMORY;SLURRED SPEECH) Reproductive Disorders: Yes (ENDOMETRIAL ABLATION) Female Reproductive Disorders: Menstrual Problems Sexually Transmitted Disease: No Genitourinary: Yes Renal Failure Gastrointestinal: Yes Gastroesophageal Reflux Musculoskeletal: Yes (GAIT DISTURBANCE) Endocrine: No (OBESITY) HEENT: No Loss of Vision: Denies Hearing Impairment: Denies Cancer: No Psychosocial: Yes Anxiety, Bipolar, Depression Integumentary: No Blood Disorders: Yes (ANEMIA) (CARLTON TAFOYA APRN) Family Medical History Patient reports no known family medical history. No Pertinent Family Hx SOCIAL HISTORY: -OCCASIONAL ETOH -HX OF IV METH USE, CLAIMS NO USE SINCE 2015 -QUIT SMOKING SEVERAL YEARS AGO (CARLTON TAFOYA APRN) Physical Exam Vital Signs Vital Signs - First Documented 10/10/22 19:31 Pulse 60 Resp 18 B/P (MAP) 154/103 (120) Pulse Ox 100 O2 Delivery Room Air (RALPH LÓPEZ MD) Vital Signs Capillary Refill : Less Than 3 Seconds (CARLTON TAFOYA APRN) Height, Weight, BMI Height: 5'3.00" Weight: 234lbs. 0oz. 106.349603sy; 40.00 BMI Method:Stated General Appearance: WD/WN, no apparent distress Legs: left leg non-tender, left leg normal inspection, left leg normal range of motion, left leg no evidence of injury Knees: left knee non-tender, left knee normal inspection, left knee normal range of motion, left knee no evidence of injury Ankles: left ankle normal inspection, left ankle normal range of motion, left ankle bone tenderness (lateral malleolus), left ankle pain (anterior talofibular ligament), left ankle soft tissue tenderness, left ankle swelling (anterior and lateral ankle) Feet: left foot normal inspection, left foot normal range of motion Neurologic/Tendon: normal sensation, normal motor functions, normal tendon functions, responds to pain Neurologic/Psychiatric: no motor/sensory deficits, alert, normal mood/affect Skin: normal color, warm/dry (CARLTON TAFOYA APRN) Progress/Results/Core Measures Results/Orders Vital Signs/I&O 10/10/22 10/10/22 19:31 20:27 Pulse 60 Resp 18 B/P (MAP) 154/103 (120) 148/102 Pulse Ox 100 O2 Delivery Room Air (RALPH LÓPEZ MD) Blood Pressure Mean: 120 Progress Progress Note : Progress Note no acute findings on xrays, she took tylenol just prior to arrival and states she does not like to take NSAIDs. Odilon wrap applied to ankle. (CARLTON TAFOYA APRN) Departure Impression Primary Impression: Left ankle sprain Disposition: 01 HOME, SELF-CARE Condition: Stable Departure-Patient Inst. Referrals: NO,LOCAL PHYSICIAN (PCP/Family) Primary Care Physician Patient Instructions: Ankle Sprain (DC) Add. Discharge Instructions: Rest, ice, elevate as much as possible. Tylenol 500mg every 4 hours as needed. Ibuprofen 600mg every 6 hours as needed. Odilon wrap until swelling and pain have improved. All discharge instructions reviewed with patient and/or family. Voiced understanding. ATTENDING PHYSICIAN NOTE: I was physically present as attending physician in the emergency department during the care of this patient, but I was not directly involved in the decision making or delivery of care for this patient. (RAPLH LÓPEZ MD) CARLTON TAFOYA APRN Oct 10, 2022 19:40 RALPH LÓPEZ MD Oct 11, 2022 05:55
--- NOTE | 2022-10-10 20:02 | Diagnostic Imaging Report ---
INDICATION: Ankle pain. FINDINGS: Three view left ankle demonstrates the medial lateral and posterior malleoli to be intact. Base of the 5th metatarsal intact. No fracture or dislocation. IMPRESSION: No acute appearing abnormality. Dictated by: Dictated on workstation # [id number]
[2022-10-10 20:27] VITALS: BP 148/102
== END 2022-10-10 20:27 | disposition home or self-care (01) ==
LOC: EDUNIT# 19:24 → ER 19:27
DX: S93.402A Sprain of unspecified ligament of left ankle, initial encounter (principal); X50.1XXA Overexertion from prolonged static or awkward postures, initial encounter
CPT/HCPCS: 73610

== ENCOUNTER 2022-12-01 20:21 | Emergency (ER) | payer MEDICARE, MEDICAID ==
[~2022-12-01] VITALS: Ht 160 cm; Wt 102.0 kg
--- NOTE | 2022-12-01 21:02 | ED Cardiac General ---
History of Present Illness General Chief Complaint: General Problems/Pain Stated Complaint: PACEMAKER ALERTED/"MADE NOISE" Nursing Triage Note: PT AMB TO ED BY POV AND REPORTS HER PACEMAKER MADE A NOISE. DENIES ANY CP, HEART PALPITATIONS, DIZZINESS, OR ANY OTHER SX AT THIS TIME. PT HAD [employer] PACEMAKER PLACED IN 2014. Source: patient, mother History of Present Illness Date Seen by Provider: Dec 01, 2022 Time Seen by Provider: 20:49 Initial Comments PT ARRIVES VIA POV FROM HOME IN [place] WITH MOTHER IMMEDIATELY PRIOR TO ARRIVAL, HER PACEMAKER/DEFIBRILLATOR MADE A NOISE--CAN'T DESCRIBE THE NOISE SHE HAS NOT HAD ANY SYMPTOMS OF ANY KIND, AND DID NOT RECEIVE A SHOCK FROM THE DEVICE. SHE HAD PACEMAKER/DEFIBRILLATOR PLACED IN 2014 AFTER SHE HAD CARDIAC ARREST/V- FIB/ATRIAL THROMBUS. THE DEVICE MALFUNCTIONED AND SHE HAD IT REPLACED IN 2018, WITH A DEFIBRILLATOR ONLY DEVICE. SHE WAS HERE IN JANUARY OF 2022 AND IN NOVEMBER OF 2021 FOR THIS SAME COMPLAINT. THE BATTERY LIFE AT THAT TIME WAS FOR ANOTHER 2 YEARS. PT WITH MULTIPLE VISITS FOR VARIOUS COMPLAINTS. PCP: [facility] [facility] ENFORCEMENT ADMINISTRATION AGENT: DR. FORTUNE Allergies and Home Medications Allergies Coded Allergies: JIA Inhibitors (Verified Allergy, Severe, 05/22/19) ARB-Angiotensin Receptor Antagonist (Verified Allergy, Severe, 05/22/19) amoxicillin (Verified Allergy, Unknown, 05/28/21) baclofen (Unverified Allergy, Unknown, 05/22/19) ON H&P clavulanic acid (Verified Allergy, Unknown, 05/28/21) phenazopyridine (Unverified Allergy, Unknown, 05/22/19) ON H&P Patient Home Medication List Home Medication List Reviewed: Yes Albuterol Sulfate (Rx-Proair) 8 Gm Hfa.aer.ad, 2 PUFF INH Q6H PRN for SHORTNESS OF BREATH, (Reported) Entered as Reported by: BROWN SCHULER on 03/21/15 1434 Amlodipine Besylate (Amlodipine Besylate) 10 Mg Tablet, 10 MG PO DAILY, (Reported) Entered as Reported by: TUNG HLETON on 07/23/15 0737 Apixaban (Eliquis) 5 Mg Tablet, 5 MG PO BID Prescribed by: RALPH DELCID on 11/01/18 1856 Azithromycin (Azithromycin) 250 Mg Tablet, 250 MG PO DAILY Prescribed by: Radha mayo on 06/10/222056 Biotin (Biotin) 5,000 Mcg Tab.rapdis, (Reported) Entered as Reported by: MIKY CAMPBELL on 05/22/192116 Clindamycin HCl (Clindamycin HCl) 300 Mg Capsule, 300 MG PO QID Prescribed by: KEYA LENTZ on 03/11/222202 Clindamycin HCl (Clindamycin HCl) 300 Mg Capsule, 300 MG PO TID Prescribed by: EDISON CHAMBERLAIN on 06/17/22 233 Cyclobenzaprine HCl (Cyclobenzaprine HCl) 10 Mg Tablet, 10 MG PO BID PRN for chest wall pain/muscle spasm Prescribed by: EDISON CHAMBERLAIN on 12/24/21 0206 Diphenoxylate HCl/Atropine (Lomotil 2.5-0.025 mg Tablet) 1 Each Tablet, 1 EACH PO BID PRN for DIARRHEA Prescribed by: ORESTES VELASCO on 11/29/19 230 Epinephrine (Epinephrine) 0.3 Mg/0.3 Ml Auto.injct, 0.3 MG IJ PRN Prescribed by: MOUNIKA GARCIA on 05/28/21 0932 Famotidine (Famotidine) 20 Mg Tablet, (Reported) Entered as Reported by: TALISHA CELIS on 08/05/18 181 Gabapentin (Gabapentin) 100 Mg Capsule, 100 MG PO Q8H PRN for burning pain/ neuropathy thumb Prescribed by: EDISON CHAMBERLAIN on 04/14/22 0337 Hydrocodone/Acetaminophen (Hydrocodone-Acetamin 5-325 mg) 1 Each Tablet, 1 TAB PO Q4H PRN for PAIN-MODERATE (5-7) Prescribed by: KEYA LENTZ on 03/11/222203 Hydrocodone/Acetaminophen (Hydrocodone-Acetamin 5-325 mg) 5 Mg-325 Mg Tablet, 1 TAB PO Q6H PRN for PAIN-SEVERE (8-10) Prescribed by: EDISON CHAMBERLAIN on 06/17/22 233 Metoprolol Tartrate (Metoprolol Tartrate) 50 Mg Tablet, 50 MG PO BID Prescribed by: FELECIA FORTUNE on 07/24/15 0841 Ondansetron (Ondansetron Odt) 4 Mg Tab.rapdis, 4 MG PO Q6H PRN for NAUSEA/VOMITING Prescribed by: EDISON CHAMBERLAIN on 12/03/212158 Oxymetazoline HCl (Afrin) 0.05 % [place], 2 SPRAY NS QID PRN for nasal congestion Prescribed by: Radha mayo on 06/10/222056 Ropinirole HCl (Ropinirole HCl) 0.5 Mg Tablet, (Reported) Entered as Reported by: TALISHA CELIS on 08/05/181809 Sacubitril/Valsartan (Entresto 24 mg-26 mg Tablet) 1 Each Tablet, (Reported) Entered as Reported by: TALISHA CELIS on 08/05/181809 [Clonidine Hydrochloride .2 Mg ] , (Reported) Entered as Reported by: MIKY CAMPBELL on 05/22/192115 [Meloxicam 15 Mg Tabs] , (Reported) Entered as Reported by: MIKY CAMPBELL on 05/22/192115 [Metoprolol Tartrate 100 Mg Tab] , (Reported) Entered as Reported by: MIKY CAMPBELL on 05/22/191929 [Olanzapine 10 Mg Tabs] , (Reported) Entered as Reported by: MIKY CAMPBELL on 05/22/192115 [Oxcarbazepine 300 Mg Tabs] , (Reported) Entered as Reported by: MIKY CAMPBELL on 05/22/192115 Review of Systems Review of Systems Constitutional: no symptoms reported Respiratory: No Symptoms Reported Cardiovascular: No Symptoms Reported Gastrointestinal: No Symptoms Reported Psychiatric/Neurological: No Symptoms Reported Past Cwacwbl-Qvkuih-Wxjlgu Hx Patient Social History Tobacco Use?: No Use of E-Cig and/or Vaping dev: No Substance use?: No Alcohol Use?: No Pt feels they are or have been: No Immunizations Up To Date Tetanus Booster (TDap): Unknown PED Vaccines UTD: Yes Influenza Vaccine Up-to-Date: Yes; Up-to-Date First/Initial COVID19 Vaccinat: [employer] Second COVID19 Vaccination Adair: [employer] Third COVID19 Vaccination Date: [employer] Seasonal Allergies Seasonal Allergies: No Past Medical History Surgery/Hospitalization HX: Cardiac hx, stroke pacemaker replacement 3x hysterectomy, cholecystectomy, , htn, high cholesterol. Surgeries: Yes (PACER/DEFIB 2014; DEFIB PLACED 05/10/19. PEG TUBE- REMOVED;UTERINE ABLATION) Abdominal, Section, Defibrillator, Gallbladder, Hysterectomy, Pacemaker Respiratory: Yes (ARDS-CODED; PNEUMOTHORAX 06/2015) Pneumonia, Chronic Bronchitis Currently Using CPAP: No Currently Using BIPAP: No Cardiac: Yes (PULMONARY EDEMA/CARDIAC CAUSE-R/T ATRIAL THROMBUS; CARDIAC ARREST;V-FIB ) Cardiomyopathy, Endocarditis, Hypertension, Valvular Heart Disease Neurological: Yes (encephalopathy-hypoxia, anoxic brain injury; POOR MEMORY;SLURRED SPEECH) Reproductive Disorders: Yes (ENDOMETRIAL ABLATION) Female Reproductive Disorders: Menstrual Problems Sexually Transmitted Disease: No Genitourinary: Yes Renal Failure Gastrointestinal: Yes Gastroesophageal Reflux Musculoskeletal: Yes (GAIT DISTURBANCE) Endocrine: No (OBESITY) HEENT: No Loss of Vision: Denies Hearing Impairment: Denies Cancer: No Psychosocial: Yes Anxiety, Bipolar, Depression Integumentary: No Blood Disorders: Yes (ANEMIA) Family Medical History Patient reports no known family medical history. No Pertinent Family Hx SOCIAL HISTORY: -OCCASIONAL ETOH -HX OF IV METH USE, CLAIMS NO USE SINCE 2015 -QUIT SMOKING SEVERAL YEARS AGO Physical Exam Vital Signs Vital Signs - First Documented 12/01/22 20:30 Temp 36.3 Pulse 79 Resp 14 B/P (MAP) 183/124 (143) Pulse Ox 99 O2 Delivery Room Air Capillary Refill : Less Than 3 Seconds Height, Weight, BMI Height: 5'3.00" Weight: 234lbs. 0oz. 106.004691tx; 39.00 BMI Method:Stated General Appearance: No Apparent Distress, WD/WN Respiratory: Normal Breath Sounds Cardiovascular: Regular Rate, Rhythm, No Edema, No JVD, No Murmur Extremity: Normal Inspection Neurologic/Psychiatric: Alert, Oriented x3, No Motor/Sensory Deficits, granite polisher II- XII Norm as Tested, Other (POOR MEMORY, SLOW MENTATION AND SLIGHTLY SLURRED SPEECH IS PT'S NORMAL BASELINE. ) Progress/Results/Core Measures Results/Orders My Orders Orders - RODRIGO HILL DO Ekg Tracing (12/01/22 20:50) Monitor-Rhythm Ecg Trace Only (12/01/22 20:50) Vital Signs/I&O 12/01/22 20:30 Temp 36.3 Pulse 79 Resp 14 B/P (MAP) 183/124 (143) Pulse Ox 99 O2 Delivery Room Air Blood Pressure Mean: 143 Progress Progress Note : Progress Note [employer] INTERROGATION DONE: VERBAL REPORT AT 2049--NO ARRHYTHMIAS. NO SHOCK. DEVICE HAS AN ABNORMAL SHOCKING COIL READING--POSSIBLE DEVICE DEFECT. DR. FORTUNE WILL BE CONTACTED IN THE MORNING AND WILL DISCUSS FINDINGS WITH HIM. REVIEWED FINDINGS WITH PT AND MOTHER, AND ADVISED THEM TO FOLLOW UP WITH DR. FORTUNE'S OFFICE TOMORROW FOR FURTHER CARE RETURN PRECAUTIONS DISCUSSED WITH PT AND MOTHER. Initial ECG Impression Date: Dec 01, 2022 Initial ECG Impression Time: 20:59 Initial ECG Rate: 75 Initial ECG Rhythm: Normal Sinus Departure Impression Primary Impression: Encounter for checking of automatic implantable cardioverter-defibrillator (AICD) Disposition: HOME, SELF-CARE Condition: Stable Departure-Patient Inst. Decision time for Depature: 21:00 Referrals: NO,LOCAL PHYSICIAN (PCP/Family) Primary Care Physician Patient Instructions: Implantable Cardioverter-Defibrillators Add. Discharge Instructions: CONTINUE YOUR REGULAR MEDICATIONS FOLLOW UP WITH DR. FORTUNE'S OFFICE TOMORROW FOR FURTHER CARE RETURN TO ER IF YOU RECEIVE A SHOCK FROM YOUR DEFIBRILLATOR OR IF YOU DEVELOP CHEST PAIN OR SHORTNESS OF BREATH OR AN IRREGULAR HEART BEAT, OR DIZZINESS OR IF YOU PASS OUT. All discharge instructions reviewed with patient and/or family. Voiced understanding. RODRIGO HILL DO Dec 01, 2022 21:02
[2022-12-01 21:05] VITALS: BP 164/108
== END 2022-12-01 21:07 | disposition home or self-care (01) ==
LOC: EDUNIT# 20:21 → ER 20:23
DX: Z45.02 Encounter for adjustment and management of automatic implantable cardiac defibrillator (principal); Z87.891 Personal history of nicotine dependence
CPT/HCPCS: 93005; 93041

== ENCOUNTER → 2022-12-09 | Outpatient (CLI) | payer MEDICARE, MEDICAID ==
--- NOTE | 2022-12-09 12:14 | Diagnostic Imaging Report ---
INDICATION: Cardiac pacemaker in situ COMPARISON: 02/08/2022 FINDINGS: Frontal and lateral views of the chest demonstrate normal heart size and pulmonary vascularity. The lungs are clear. There are no signs of infiltrate, pleural effusions or pneumothoraces. The visualized osseous structures show no acute abnormalities. Left-sided AICD is present. IMPRESSION: 1. No acute process. No signs of infiltrates, effusions or pneumothoraces. Dictated by: Dictated on workstation # [id number]
== END ==
LOC: RAD 10:00
PROVIDERS: ATTEND Internal Medicine Cardiovascular Disease
DX: Z95.0 Presence of cardiac pacemaker (principal)
CPT/HCPCS: 71046

== ENCOUNTER 2022-12-11 20:39 | Emergency (ER) | payer MEDICARE, MEDICAID ==
[~2022-12-11] VITALS: Ht 160 cm; Wt 102.0 kg
[2022-12-11] MEDS ORDERED: HYDROcodone/APAP 5 MG/325 MG (LORTAB) TAB PO ONE (21:30)
--- NOTE | 2022-12-11 21:33 | Diagnostic Imaging Report ---
INDICATION: Left ankle pain. EXAMINATION: AP, oblique and lateral views of the left ankle were obtained. No fracture or acute bony abnormality is seen. Joint spaces are unremarkable. IMPRESSION: Negative left ankle. Dictated by: Dictated on workstation # [id number]
--- NOTE | 2022-12-11 21:33 | ED Lower Extremity ---
General Chief Complaint: Lower Extremity Stated Complaint: L ANKLE PAIN Nursing Triage Note: C/O LEFT ANKLE/FOOT PAIN TODAY. DENIES INJURY. Source: patient, family (mother) Exam Limitations: no limitations (MARIA INES MEJIAS) History of Present Illness Date Seen by Provider: Dec 11, 2022 Time Seen by Provider: 21:00 Initial Comments This is a 32yo F who presents for left ankle pain. Pmhx includes HTN, HLD, CKD, cardiomyopathy, cardiopulmonary arrest, implanted pacemaker/defibrillator, anxiety, and depression. Pt had an injury to the left foot/ankle this afternoon 11DEC2022 which she does not clearly remember the mechanism of the injury. She has issues with memory loss following her cardiopulmonary arrest in the past. Pt's mother was in the room when the injury happened and reports the patient saying she twisted her ankle. Pt's pain to the left ankle is currently 6.5/10. Patient took tylenol for pain with no relief, last dose at 1930 today, does not remember what dose. Pt cannot take ibuprofen with her being on Eliquis. Pt reports some numbness to the left foot as well as decreased ROM due to pain. Denies paresthesias. Pt is hypertensive at 186/129 with no reported symptoms, she has not yet taken her night medications. No previous serious injury or surgeries to the left foot or ankle. Patient normally ambulates without any assistance or assistive devices at home. Onset: this afternoon Severity: moderate Pain/Injury Location: left ankle Method of Injury: twisted Modifying Factors: Improves With Immobilization; Worse With Movement (MARIA INES MEJIAS) Allergies and Home Medications Allergies Coded Allergies: ODILON Inhibitors (Verified Allergy, Severe, 05/22/19) ARB-Angiotensin Receptor Antagonist (Verified Allergy, Severe, 05/22/19) amoxicillin (Verified Allergy, Unknown, 05/28/21) baclofen (Unverified Allergy, Unknown, 05/22/19) ON H&P clavulanic acid (Verified Allergy, Unknown, 05/28/21) phenazopyridine (Unverified Allergy, Unknown, 05/22/19) ON H&P Patient Home Medication List Home Medication List Reviewed: Yes (RALPH LÓPEZ MD) Albuterol Sulfate (Rx-Proair) 8 Gm Hfa.aer.ad, 2 PUFF INH Q6H PRN for SHORTNESS OF BREATH, (Reported) Entered as Reported by: BROWN SCHULER on 03/21/15 1434 Amlodipine Besylate (Amlodipine Besylate) 10 Mg Tablet, 10 MG PO DAILY, (Reported) Entered as Reported by: TUNG HELTON on 07/23/15 0737 Apixaban (Eliquis) 5 Mg Tablet, 5 MG PO BID Prescribed by: RALPH DELCID on 11/01/18 1856 Azithromycin (Azithromycin) 250 Mg Tablet, 250 MG PO DAILY Prescribed by: Radha mayo on 06/10/22 205 Biotin (Biotin) 5,000 Mcg Tab.rapdis, (Reported) Entered as Reported by: MIKY CAMPBELL on 05/22/192116 Clindamycin HCl (Clindamycin HCl) 300 Mg Capsule, 300 MG PO QID Prescribed by: KEYA LENTZ on 03/11/222202 Clindamycin HCl (Clindamycin HCl) 300 Mg Capsule, 300 MG PO TID Prescribed by: EDISON CHAMBERLAIN on 06/17/22 2334 Cyclobenzaprine HCl (Cyclobenzaprine HCl) 10 Mg Tablet, 10 MG PO BID PRN for chest wall pain/muscle spasm Prescribed by: EDISON CHAMBERLAIN on 12/24/21 0206 Diphenoxylate HCl/Atropine (Lomotil 2.5-0.025 mg Tablet) 1 Each Tablet, 1 EACH PO BID PRN for DIARRHEA Prescribed by: ORESTES VELASCO on 11/29/19 2309 Epinephrine (Epinephrine) 0.3 Mg/0.3 Ml Auto.injct, 0.3 MG IJ PRN Prescribed by: MOUNIKA GARCIA on 05/28/21 0932 Famotidine (Famotidine) 20 Mg Tablet, (Reported) Entered as Reported by: TALISHA CELIS on 08/05/18 1811 Gabapentin (Gabapentin) 100 Mg Capsule, 100 MG PO Q8H PRN for burning pain/neuropathy thumb Prescribed by: EDISON CHAMBERLAIN on 04/14/22 0337 Hydrocodone/Acetaminophen (Hydrocodone-Acetamin 5-325 mg) 1 Each Tablet, 1 TAB PO Q4H PRN for PAIN-MODERATE (5-7) Prescribed by: KEYA LENTZ on 4/14/22 2204 Hydrocodone/Acetaminophen (Hydrocodone-Acetamin 5-325 mg) 5 Mg-325 Mg Tablet, 1 TAB PO Q6H PRN for PAIN-SEVERE (8-10) Prescribed by: EDISON CHAMBERLAIN on 06/17/22 2335 Hydrocodone/Acetaminophen (Hydrocodone-Acetamin 5-325 mg) 5 Mg-325 Mg Tablet, 1 TAB PO Q4H PRN for PAIN-MODERATE (5-7) Prescribed by: RALPH DELCID on 12/11/22 220 Metoprolol Tartrate (Metoprolol Tartrate) 50 Mg Tablet, 50 MG PO BID Prescribed by: FELECIA FORTUNE on 07/24/15 0841 Ondansetron (Ondansetron Odt) 4 Mg Tab.rapdis, 4 MG PO Q6H PRN for NAUSEA/VOMITING Prescribed by: EDISON CHAMBERLAIN on 12/03/21 215 Oxymetazoline HCl (Afrin) 0.05 % [place], 2 SPRAY NS QID PRN for nasal congestion Prescribed by: Radha mayo on 06/10/222056 Ropinirole HCl (Ropinirole HCl) 0.5 Mg Tablet, (Reported) Entered as Reported by: TALISHA CELIS on 08/05/181809 Sacubitril/Valsartan (Entresto 24 mg-26 mg Tablet) 1 Each Tablet, (Reported) Entered as Reported by: TALISHA CELIS on 08/05/181809 [Clonidine Hydrochloride .2 Mg ] , (Reported) Entered as Reported by: MIKY CAMPBELL on 05/22/192115 [Meloxicam 15 Mg Tabs] , (Reported) Entered as Reported by: MIKY CAMPBELL on 05/22/192115 [Metoprolol Tartrate 100 Mg Tab] , (Reported) Entered as Reported by: MIKY CAMPBELL on 05/22/191929 [Olanzapine 10 Mg Tabs] , (Reported) Entered as Reported by: MIKY CAMPBLEL on 05/22/192115 [Oxcarbazepine 300 Mg Tabs] , (Reported) Entered as Reported by: MIKY CAMPBELL on 05/22/192115 Review of Systems Constitutional: no symptoms reported EENTM: no symptoms reported Cardiovascular: no symptoms reported : No (hysterectomy) Musculoskeletal: other (Left ankle pain) Skin: no symptoms reported (MARIA INES MEJIAS) Past Apxpudi-Viuzpw-Dqofbh Hx Patient Social History Tobacco Use?: No Substance use?: No Alcohol Use?: No Pt feels they are or have been: No (MARIA INES MEJIAS) Immunizations Up To Date Tetanus Booster (TDap): Unknown PED Vaccines UTD: Yes First/Initial COVID19 Vaccinat: Pfizer Second COVID19 Vaccination [place]: Pfizer Third COVID19 Vaccination Date: Pfizer (MARIA INES MEJIAS) Seasonal Allergies Seasonal Allergies: No (MARIA INES MEJIAS) Past Medical History Surgery/Hospitalization HX: Cardiac hx, stroke pacemaker replacement 3x hysterectomy, cholecystectomy, , htn, high cholesterol. Surgeries: Yes (PACER/DEFIB 2014; DEFIB PLACED 05/10/19. PEG TUBE- REMOVED;UTERINE ABLATION) Abdominal, Section, Defibrillator, Gallbladder, Hysterectomy, Pacemaker Respiratory: Yes (ARDS-CODED; PNEUMOTHORAX 06/2015) Pneumonia, Chronic Bronchitis Currently Using CPAP: No Currently Using BIPAP: No Cardiac: Yes (PULMONARY EDEMA/CARDIAC CAUSE-R/T ATRIAL THROMBUS; CARDIAC ARREST;V-FIB ) Cardiomyopathy, Endocarditis, Hypertension, Valvular Heart Disease Neurological: Yes (encephalopathy-hypoxia, anoxic brain injury; POOR MEMORY;SLURRED SPEECH) Reproductive Disorders: Yes (ENDOMETRIAL ABLATION) Female Reproductive Disorders: Menstrual Problems Sexually Transmitted Disease: No Genitourinary: Yes Renal Failure Gastrointestinal: Yes Gastroesophageal Reflux Musculoskeletal: Yes (GAIT DISTURBANCE) Endocrine: No (OBESITY) HEENT: No Loss of Vision: Denies Hearing Impairment: Denies Cancer: No Psychosocial: Yes Anxiety, Bipolar, Depression Integumentary: No Blood Disorders: Yes (ANEMIA) (MARIA INES MEJIAS) Family Medical History Patient reports no known family medical history. No Pertinent Family Hx SOCIAL HISTORY: -OCCASIONAL ETOH -HX OF IV METH USE, CLAIMS NO USE SINCE 2015 -QUIT SMOKING SEVERAL YEARS AGO (MARIA INES MEJIAS) Physical Exam Vital Signs Vital Signs - First Documented 12/11/22 20:41 Temp 36.9 Pulse 92 Resp 16 B/P (MAP) 186/129 (148) Pulse Ox 100 O2 Delivery Room Air (RALPH LÓPEZ MD) Vital Signs Capillary Refill : Less Than 3 Seconds (MARIA INES MEJIAS) Height, Weight, BMI Height: 5'3.00" Weight: 234lbs. 0oz. 106.578840if; 39.00 BMI Method:Stated General Appearance: WD/WN, no apparent distress, obese Cardiovascular: regular rate, rhythm, no edema, no murmur Respiratory: chest non-tender, lungs clear, normal breath sounds, no respiratory distress, no accessory muscle use Legs: bilateral leg non-tender, bilateral leg normal inspection, bilateral leg normal range of motion, bilateral leg no evidence of injury Ankles: left ankle bone tenderness (at lateral maleolus and dorsal foot with palpation), left ankle limited range of motion (limited by pain), left ankle pain, left ankle soft tissue tenderness (more localized to lateral maleolus), left ankle swelling (mild swelling of left ankle compared to right) Feet: left foot normal range of motion, left foot no evidence of injury, left foot soft tissue tenderness (more localized to dorsal foot), left foot swelling (mild swelling of left foot compared to right) Neurologic/Psychiatric: no motor/sensory deficits, alert, normal mood/affect, oriented x 3 (MARIA INES MEJIAS) Progress/Results/Core Measures Results/Orders My Orders Orders - RALPH LÓPEZ MD Foot, Left, 3 Views (12/11/22 21:15) Ankle, Left, 3 Views (12/11/22 21:15) Hydrocodone/Apap 5/325 Tablet (Lortab 5 (12/11/22 21:30) Steplite (12/11/22 21:51) Walker (12/11/22 21:51) (RALPH LÓPEZ MD) Medications Given in ED Current Medications Medications Dose Ordered Sig/Mikal Route Start Time Stop Time Status Last Admin Dose Admin Acetaminophen/ Hydrocodone Bitart 1 ea ONCE ONCE PO 12/11/22 21:30 12/11/22 21:31 DC 12/11/22 21:46 1 EA (RALPH LÓPEZ MD) Vital Signs/I&O 12/11/22 12/11/22 20:41 22:13 Temp 36.9 Pulse 92 Resp 16 B/P (MAP) 186/129 (148) 177/133 Pulse Ox 100 O2 Delivery Room Air (RALPH LÓPEZ MD) Blood Pressure Mean: 148 Progress Progress Note : Progress Note Patient and her mother were interviewed and patient examined along with MS 4. Hydrocodone was given for pain as she cannot take NSAID medications. There was concern for possible fracture given the edema and pain associated with his injury. X-rays of the foot and ankle were obtained. No bony injuries were identified. Patient was fitted with a boot and wrapped in an Odilon bandage. She has a walker at home she can use for support. See discharge instructions for further discussion. (RALPH LÓPEZ MD) Departure Impression Primary Impression: Left ankle sprain Qualified Codes: S93.402A - Sprain of unspecified ligament of left ankle, initial encounter Additional Impression: Left foot pain Disposition: HOME, SELF-CARE Condition: Stable Departure-Patient Inst. Decision time for Depature: 21:57 (RALPH LÓPEZ MD) Referrals: NO,LOCAL PHYSICIAN (PCP/Family) Primary Care Physician Patient Instructions: Ankle Sprain ED Add. Discharge Instructions: Rest, elevation, 20-minute intervals of icing, and compressive wrapping should help with pain and swelling. You may use hydrocodone as prescribed for pain more severe in nature. Use hydrocodone with caution as it may cause drowsiness. It may also cause constipation, so you may wish to use a stool softener such as Colace while on hydrocodone. Wear your boot when walking or bearing weight for the next several days. As pain and swelling improves, you may graduate to a Velcro or lace up brace purchased [id number]. You may remove the braces when at rest, but use them when active for the next 6 weeks. Because of your extensive chronic health problems, please follow-up with your primary care provider within the next 1 to 2 weeks for repeat evaluation. Return to the ER if you have worsening symptoms or see your doctor sooner if symptoms or not improving proving gradually over the next several days as expected. Use the walker as needed to help with bear weight when walking. Increase level of activity as pain allows. All discharge instructions reviewed with patient and/or family. Voiced understanding. Scripts Hydrocodone/Acetaminophen (Hydrocodone-Acetamin 5-325 mg) 5 Mg-325 Mg Tablet 1 TAB PO Q4H PRN for PAIN-MODERATE (5-7), #8 TAB Prov: RALPH LÓPEZ MD 12/11/22 Medical Student Attestation and Attending Note: I have personally interviewed and examined this patient along with Maria Ines Melchor, MS 4. I have reviewed student documentation including history, physical, and assessments. I agree with the documentation except where otherwise noted. Exam: General: Alert, oriented, no acute distress, well developed HEENT: Normocephalic and atraumatic Heart: Regular rate and rhythm without murmur Lungs: Clear to auscultation bilaterally with normal effort Extremities: Generalized edema of the left foot and ankle with tenderness particularly on the dorsum of the foot and medial ankle. Decreased range of motion secondary to pain. Sensation intact in the toes. Pulse audible with Doppler by MS 4. Neuropsych: Alert, oriented, no focal deficits Skin: Warm and dry without rashes (RALPH LÓPEZ MD) MARIA INES MEJIAS Dec 11, 2022 21:33 RALPH LÓPEZ MD Dec 11, 2022 22:02
--- NOTE | 2022-12-11 21:34 | Diagnostic Imaging Report ---
INDICATION: Left foot pain. EXAMINATION: AP, oblique and lateral views of the left foot were obtained. No fracture or acute bony abnormality is seen. Joint spaces are unremarkable. IMPRESSION: Negative left foot. Dictated by: Dictated on workstation # [id number]
[2022-12-11] MEDS ORDERED: ACHD5005 PO (22:01)
[2022-12-11 22:13] VITALS: BP 177/133
== END 2022-12-11 22:12 | disposition home or self-care (01) ==
LOC: EDUNIT# 20:39 → ER 20:40
DX: S93.402A Sprain of unspecified ligament of left ankle, initial encounter (principal); E66.9 Obesity, unspecified; Z68.39 Body mass index [BMI] 39.0-39.9, adult; Z87.891 Personal history of nicotine dependence; X50.1XXA Overexertion from prolonged static or awkward postures, initial encounter
CPT/HCPCS: 73610; 73630

== ENCOUNTER 2022-12-16 00:03 | Emergency (ER) | payer MEDICARE, MEDICAID ==
[~2022-12-16] VITALS: Ht 160 cm; Wt 99.0 kg
[2022-12-16 00:13] VITALS: BP 198/136
[2022-12-16] MEDS ORDERED: cloNIDine 0.1 MG (CATAPRES) TAB PO ONE ×2 (00:45)
[2022-12-16 00:56] LABS: CLARITY,URINE CLEAR; COLOR,URINE YELLOW; GLUCOSE, URINE (UA) NEGATIVE (NEGATIVE); KETONES,URINE NEGATIVE (NEGATIVE); LEUKOCYTE ESTERASE ,URINE NEGATIVE (NEGATIVE); NITRITE,URINE NEGATIVE (NEGATIVE); PROTEIN,URINE 3+ (NEGATIVE)
[2022-12-16 01:06] LABS: BILIRUBIN,URINE 1+ (NEGATIVE); RBC,URINE 0-2 /HPF; WBC,URINE 0-2 /HPF
[2022-12-16 01:07] LABS: AMORPHOUS SEDIMENT,UR FEW AMOR URATES /LPF; BACTERIA,URINE TRACE /HPF; GRANULAR CASTS,URINE 0-2 /LPF; HYALINE CASTS, URINE 0-2 /LPF; SQUAMOUS EPITHELIAL CELL,UR 0-2 /HPF
[2022-12-16 01:08] LABS: BASOPHILS % (AUTO) 1 % (0-10); EOSINOPHILS # (AUTO) 0.1 10^3/uL (0.0-0.3); EOSINOPHILS % (AUTO) 1 % (0-10); HEMATOCRIT 44 % (35-52); HEMOGLOBIN 14.4 g/dL (11.5-16.0); LYMPHOCYTES # (AUTO) 3.4 10^3/uL (1.0-4.0); LYMPHOCYTES % (AUTO) 52 % (12-44); MEAN CORPUSCULAR HEMOGLOBIN 29 pg (25-34); MEAN CORPUSCULAR HGB CONC 33 g/dL (32-36); MEAN CORPUSCULAR VOLUME 89 fL (80-99); MEAN PLATELET VOLUME 8.6 fL (9.0-12.2); MONOCYTES # (AUTO) 0.6 10^3/uL (0.0-1.0); MONOCYTES % (AUTO) 8 % (0-12); NEUTROPHILS # (AUTO) 2.5 10^3/uL (1.8-7.8); NEUTROPHILS % (AUTO) 38 % (42-75); PLATELET COUNT 361 10^3/uL (130-400); WHITE BLOOD COUNT 6.6 10^3/uL (4.3-11.0)
[2022-12-16 01:08] LABS: AMPHETAMINE SCREEN, URINE POSITIVE (NEGATIVE); BARBITURATE SCREEN URINE NEGATIVE (NEGATIVE); BENZODIAZEPINES SCREEN URINE NEGATIVE (NEGATIVE); CANNABINOID SCREEN, URINE NEGATIVE (NEGATIVE); COCAINE SCREEN URINE NEGATIVE (NEGATIVE); METHADONE STAT NEGATIVE (NEGATIVE); OPIATE SCREEN URINE NEGATIVE (NEGATIVE); OXYCODONE STAT NEGATIVE (NEGATIVE); PROPOXYPHENE STAT NEGATIVE (NEGATIVE); TRICYCLIC ANTIDEPRESSANTS SCRE NEGATIVE (NEGATIVE)
--- NOTE | 2022-12-16 01:10 | ED Cardiac General ---
History of Present Illness General Chief Complaint: Cardiac/General Problems Stated Complaint: ANXIETY Nursing Triage Note: PT TO ED BY POV WITH MOTHER WITH C/O FEELING LIKE HER DEFIBRILATOR MOVED. DENIES CP, BUT REPORTS SOME TIGHTNESS IN HER CHEST THAT SHE BELIEVES MAY BE RELATED TO ANXIETY. MOTHER REPORTS PT IS SUPPOSED TO HAVE A CLONIDINE PATCH, BUT PT HAS NOT BEEN USING IT. Source: patient (LIMITED HISTORIAN), old records, mother History of Present Illness Date Seen by Provider: Dec 16, 2022 Time Seen by Provider: 00:29 Initial Comments PT ARRIVES VIA POV FROM HOME IN [place] WITH MOTHER C/O ANXIETY AND CHEST TIGHTNESS BEGAN JUST PRIOR TO ARRIVAL THOUGHT HER DEFIBRILLATOR MOVED. NO SHORTNESS OF BREATH STATES SHE WAS AT SOMEONE'S HOUSE EARLIER, AND THEY GAVE HER SOMETHING TO DRINK AND IT "TASTED FUNNY" SHE BEGAN HAVING THESE SYMPTOMS AFTER THAT PT HAS KNOWN ISSUES WITH HER LEAD WIRES TO HER DEFIBRILLATOR BEING LOOSE AND NEED TO BE REPLACED FOR SOME TIME NOW. SHE STATES SHE HAS AN APPOINTMENT AT TO GET THE LEADS CHANGED SHE IS SUPPOSED TO SEE DR. FORTUNE SOMETIME FOR A FOLLOW UP WELL SHE IS SUPPOSED TO BE ON A CLONIDINE PATCH, BUT SHE NEVER PICKED UP THE PRESCRIPTION. SHE HAS LONGSTANDING SIGNIFICANT HTN SEE OLD CHARTS FOR DETAILS. PT HAS BEEN HERE A MULTITUDE OF TIMES FOR VARIOUS COMPLAINTS. THIS IS HER 3RD VISIT IN 2022, ALREADY. Allergies and Home Medications Allergies Coded Allergies: JIA Inhibitors (Verified Allergy, Severe, 05/22/19) ARB-Angiotensin Receptor Antagonist (Verified Allergy, Severe, 05/22/19) amoxicillin (Verified Allergy, Unknown, 05/28/21) baclofen (Unverified Allergy, Unknown, 05/22/19) ON H&P clavulanic acid (Verified Allergy, Unknown, 05/28/21) phenazopyridine (Unverified Allergy, Unknown, 05/22/19) ON H&P Patient Home Medication List Home Medication List Reviewed: Yes Albuterol Sulfate (Rx-Proair) 8 Gm Hfa.aer.ad, 2 PUFF INH Q6H PRN for SHORTNESS OF BREATH, (Reported) Entered as Reported by: BROWN SCHULER on 03/21/15 2184 Amlodipine Besylate (Amlodipine Besylate) 10 Mg Tablet, 10 MG PO DAILY, (Reported) Entered as Reported by: TUNG HELTON on 07/23/15 0737 Apixaban (Eliquis) 5 Mg Tablet, 5 MG PO BID Prescribed by: RALPH DELCID on 11/01/18 1856 Azithromycin (Azithromycin) 250 Mg Tablet, 250 MG PO DAILY Prescribed by: Radha mayo on 06/10/222056 Biotin (Biotin) 5,000 Mcg Tab.rapdis, (Reported) Entered as Reported by: MIKY CAMPBELL on 05/22/192116 Clindamycin HCl (Clindamycin HCl) 300 Mg Capsule, 300 MG PO QID Prescribed by: KEYA LENTZ on 03/11/222202 Clindamycin HCl (Clindamycin HCl) 300 Mg Capsule, 300 MG PO TID Prescribed by: EDISON CHAMBERLAIN on 06/17/22 233 Cyclobenzaprine HCl (Cyclobenzaprine HCl) 10 Mg Tablet, 10 MG PO BID PRN for chest wall pain/muscle spasm Prescribed by: EDISON CHAMBERLAIN on 12/24/21 0206 Diphenoxylate HCl/Atropine (Lomotil 2.5-0.025 mg Tablet) 1 Each Tablet, 1 EACH PO BID PRN for DIARRHEA Prescribed by: ORESTES VELASCO on 11/29/19 230 Epinephrine (Epinephrine) 0.3 Mg/0.3 Ml Auto.injct, 0.3 MG IJ PRN Prescribed by: MOUNIKA GARCIA on 05/28/21 0932 Famotidine (Famotidine) 20 Mg Tablet, (Reported) Entered as Reported by: TALISHA CELIS on 08/05/18 181 Gabapentin (Gabapentin) 100 Mg Capsule, 100 MG PO Q8H PRN for burning pain/ neuropathy thumb Prescribed by: EDISON CHAMBERLAIN on 04/14/22 0337 Hydrocodone/Acetaminophen (Hydrocodone-Acetamin 5-325 mg) 1 Each Tablet, 1 TAB PO Q4H PRN for PAIN-MODERATE (5-7) Prescribed by: KEYA LENTZ on 03/11/22 220 Hydrocodone/Acetaminophen (Hydrocodone-Acetamin 5-325 mg) 5 Mg-325 Mg Tablet, 1 TAB PO Q6H PRN for PAIN-SEVERE (8-10) Prescribed by: EDISON CHAMBERLAIN on 06/17/22 2335 Hydrocodone/Acetaminophen (Hydrocodone-Acetamin 5-325 mg) 5 Mg-325 Mg Tablet, 1 TAB PO Q4H PRN for PAIN-MODERATE (5-7) Prescribed by: RALPH DELCID on 12/11/222201 Metoprolol Tartrate (Metoprolol Tartrate) 50 Mg Tablet, 50 MG PO BID Prescribed by: FELECIA FORTUNE on 07/24/15 0841 Ondansetron (Ondansetron Odt) 4 Mg Tab.rapdis, 4 MG PO Q6H PRN for NAUSEA/VOMITING Prescribed by: EDISON CHAMBERLAIN on 12/03/212158 Oxymetazoline HCl (Afrin) 0.05 % [place], 2 SPRAY NS QID PRN for nasal congestion Prescribed by: Radha mayo on 06/10/222056 Ropinirole HCl (Ropinirole HCl) 0.5 Mg Tablet, (Reported) Entered as Reported by: TALISHA CELIS on 08/05/181809 Sacubitril/Valsartan (Entresto 24 mg-26 mg Tablet) 1 Each Tablet, (Reported) Entered as Reported by: TALISHA CELIS on 08/05/181809 [Clonidine Hydrochloride .2 Mg ] , (Reported) Entered as Reported by: MIKY CAMPBELL on 05/22/192115 [Meloxicam 15 Mg Tabs] , (Reported) Entered as Reported by: MIKY CAMPBELL on 05/22/192115 [Metoprolol Tartrate 100 Mg Tab] , (Reported) Entered as Reported by: MIKY CAMPBELL on 05/22/191929 [Olanzapine 10 Mg Tabs] , (Reported) Entered as Reported by: MIKY CAMPBELL on 05/22/192115 [Oxcarbazepine 300 Mg Tabs] , (Reported) Entered as Reported by: MIKY CAMPBELL on 05/22/192115 Review of Systems Review of Systems Constitutional: no symptoms reported Respiratory: No Symptoms Reported Cardiovascular: See HPI Gastrointestinal: No Symptoms Reported Genitourinary: No Symptoms Reported Musculoskeletal: no symptoms reported Skin: no symptoms reported Psychiatric/Neurological: Anxiety Endocrine: No Symptoms Reported Hematologic/Lymphatic: No Symptoms Reported Past Whyaasq-Moeyzs-Pbbgbp Hx Patient Social History Tobacco Use?: Yes Use of E-Cig and/or Vaping dev: No Substance use?: Yes Alcohol Use?: Yes Pt feels they are or have been: No Immunizations Up To Date Tetanus Booster (TDap): Unknown PED Vaccines UTD: Yes Influenza Vaccine Up-to-Date: Yes; Up-to-Date First/Initial COVID19 Vaccinat: Pfizer Second COVID19 Vaccination Adair: Localo Third COVID19 Vaccination Date: Localo Seasonal Allergies Seasonal Allergies: No Past Medical History Surgery/Hospitalization HX: Cardiac hx, stroke pacemaker replacement 3x hysterectomy, cholecystectomy, , htn, high cholesterol. Surgeries: Yes (PACER/DEFIB 2014; DEFIB PLACED 05/10/19. PEG TUBE- REMOVED;UTERINE ABLATION) Abdominal, Section, Defibrillator, Gallbladder, Hysterectomy, Pacemaker Respiratory: Yes (ARDS-CODED; PNEUMOTHORAX 06/2015) Pneumonia, Chronic Bronchitis Currently Using CPAP: No Currently Using BIPAP: No Cardiac: Yes (PULMONARY EDEMA/CARDIAC CAUSE-R/T ATRIAL THROMBUS; CARDIAC ARREST;V-FIB ) Cardiomyopathy, Endocarditis, Hypertension, Valvular Heart Disease Neurological: Yes (encephalopathy-hypoxia, anoxic brain injury; POOR MEMORY;SLURRED SPEECH) Reproductive Disorders: Yes (ENDOMETRIAL ABLATION) Female Reproductive Disorders: Menstrual Problems Sexually Transmitted Disease: No Genitourinary: Yes (BASELINE CREATININE BETWEEN 2 & 3) Renal Failure Gastrointestinal: Yes Gastroesophageal Reflux Musculoskeletal: Yes (GAIT DISTURBANCE) Endocrine: No (OBESITY) HEENT: No Loss of Vision: Denies Hearing Impairment: Denies Cancer: No Psychosocial: Yes Anxiety, Bipolar, Depression Integumentary: No Blood Disorders: Yes (ANEMIA) Family Medical History Patient reports no known family medical history. 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 Physical Exam Vital Signs Vital Signs - First Documented 12/16/22 00:13 Temp 36.1 Pulse 73 Resp 16 B/P (MAP) 198/136 (156) Pulse Ox 99 O2 Delivery Room Air Capillary Refill : Less Than 3 Seconds Height, Weight, BMI Height: 5'3.00" Weight: 234lbs. 0oz. 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 II-XII Norm as Tested Skin: Normal Color (PT IS BLACK), Warm/Dry, Tattoos/Piercings Progress/Results/Core Measures Results/Orders Lab Results Laboratory Tests Test 12/16/22 00:48 12/16/22 01:02 Range/Units Urine Color YELLOW Urine Clarity CLEAR Urine pH 6.0 5-9 Urine Specific [place] >=1.030 1.016-1.022 Urine Protein 3+ H NEGATIVE Urine Glucose (UA) NEGATIVE NEGATIVE Urine Ketones NEGATIVE NEGATIVE Urine Nitrite NEGATIVE NEGATIVE Urine Bilirubin 1+ H NEGATIVE Urine Urobilinogen 0.2 < = 1.0 MG/DL Urine Leukocyte Esterase NEGATIVE NEGATIVE Urine RBC (Auto) 2+ H NEGATIVE Urine RBC 0-2 /HPF Urine WBC 0-2 /HPF Urine Squamous Epithelial Cells 0-2 /HPF Urine Crystals PRESENT H /LPF Urine Amorphous Sediment FEW RAJESH URATES H /LPF Urine Bacteria TRACE /HPF Urine Casts PRESENT /LPF Urine Hyaline Casts 0-2 H /LPF Urine Granular Casts 0-2 H /LPF Urine Mucus NEGATIVE /LPF Urine Culture Indicated NO Urine Opiates Screen NEGATIVE NEGATIVE Urine Oxycodone Screen NEGATIVE NEGATIVE Urine Methadone Screen NEGATIVE NEGATIVE Urine Propoxyphene Screen NEGATIVE NEGATIVE Urine Barbiturates Screen NEGATIVE NEGATIVE Ur Tricyclic Antidepressants Screen NEGATIVE NEGATIVE Urine Phencyclidine Screen NEGATIVE NEGATIVE Urine Amphetamines Screen POSITIVE H NEGATIVE Urine Methamphetamines Screen POSITIVE H NEGATIVE Urine Benzodiazepines Screen NEGATIVE NEGATIVE Urine Cocaine Screen NEGATIVE NEGATIVE Urine Cannabinoids Screen NEGATIVE NEGATIVE White Blood Count 6.6 4.3-11.0 10^3/uL Red Blood Count 4.98 3.80-5.11 10^6/uL Hemoglobin 14.4 11.5-16.0 g/dL Hematocrit 44 35-52 % Mean Corpuscular Volume 89 80-99 fL Mean Corpuscular Hemoglobin 29 25-34 pg Mean Corpuscular Hemoglobin Concent 33 32-36 g/dL Red Cell Distribution Width 14.0 10.0-14.5 % Platelet Count 361 130-400 10^3/uL Mean Platelet Volume 8.6 L 9.0-12.2 fL Immature Granulocyte % (Auto) 0 % Neutrophils (%) (Auto) 38 L 42-75 % Lymphocytes (%) (Auto) 52 H 12-44 % Monocytes (%) (Auto) 8 0-12 % Eosinophils (%) (Auto) 1 0-10 % Basophils (%) (Auto) 1 0-10 % Neutrophils # (Auto) 2.5 1.8-7.8 10^3/uL Lymphocytes # (Auto) 3.4 1.0-4.0 10^3/uL Monocytes # (Auto) 0.6 0.0-1.0 10^3/uL Eosinophils # (Auto) 0.1 0.0-0.3 10^3/uL Basophils # (Auto) 0.0 0.0-0.1 10^3/uL Immature Granulocyte # (Auto) 0.0 0.0-0.1 10^3/uL Sodium Level 138 135-145 MMOL/L Potassium Level 3.5 L 3.6-5.0 MMOL/L Chloride Level 103 98-107 MMOL/L Carbon Dioxide Level 24 21-32 MMOL/L Anion Gap 11 5-14 MMOL/L Blood Urea Nitrogen 17 7-18 MG/DL Creatinine 2.19 H 0.60-1.30 MG/DL Estimat Glomerular Filtration Rate 30 BUN/Creatinine Ratio 8 Glucose Level 95 70-105 MG/DL Calcium Level 9.2 8.5-10.1 MG/DL Corrected Calcium 9.3 8.5-10.1 MG/DL Total Bilirubin 0.3 0.1-1.0 MG/DL Aspartate Amino Transf (AST/SGOT) 21 5-34 U/L Alanine Aminotransferase (ALT/SGPT) 21 0-55 U/L Alkaline Phosphatase 72 40-136 U/L Troponin I < 0.028 <0.028 NG/ML Total Protein 7.1 6.4-8.2 GM/DL Albumin 3.9 3.2-4.5 GM/DL Serum Alcohol < 10 <10 MG/DL My Orders Orders - RODRIGO HILL DO Alcohol (12/16/22 00:33) Cbc With Automated Diff (12/16/22 00:33) Comprehensive Metabolic Panel (12/16/22 00:33) Drug Screen Stat (Urine) (12/16/22 00:33) Ua Culture If Indicated (12/16/22 00:33) Troponin I El (12/16/22 00:33) Chest 1 View, Ap/Pa Only (12/16/22 00:33) Ed Iv/Invasive Line Start (12/16/22 00:33) Urine Bedside (12/16/22 00:33) Ekg Tracing (12/16/22 00:33) Monitor-Rhythm Ecg Trace Only (12/16/22 00:33) Clonidine Tablet (Catapres Tablet) (12/16/22 00:45) Clonidine Tablet (Catapres Tablet) (12/16/22 00:45) Medications Given in ED Current Medications Medications Dose Ordered Sig/Mikal Route Start Time Stop Time Status Last Admin Dose Admin Clonidine HCl 0.1 mg ONCE ONCE PO 12/16/22 00:45 12/16/22 00:46 DC 12/16/22 00:55 0.1 MG Clonidine HCl 0.1 mg ONCE ONCE PO 12/16/22 00:45 12/16/22 00:46 DC 12/16/22 00:55 0.1 MG Vital Signs/I&O 12/16/22 00:13 Temp 36.1 Pulse 73 Resp 16 B/P (MAP) 198/136 (156) Pulse Ox 99 O2 Delivery Room Air Blood Pressure Mean: 156 Progress Progress Note : Progress Note DEVICE INTERROGATION--NO EPISODES OF V-TACH/V-FIB. HAS SVC LEAD IMPEDANCE, AND RV DEFIB LEAD IMPEDANCE. PT HAD NO SYMPTOMS AND NO ARRHYTHMIAS DURING ER STAY BP IS 205/164 ON ARRIVAL--PT'S BP IS FREQUENTLY THIS HIGH ON PREVIOUS ER VISITS GAVE: -CLONIDINE 0.2 MG PO BP DOWN TO 112/70, HR IN 70'S PT SLEPT FOR REMAINDER OF ER STAY REVIEWED OLD RECORDS INCLUDING A MULTITUDE PRIOR ER VISITS ( FIRST VISIT IN ) ,ONLY ONE ADMIT IN 2018, TESTS/PROCEDURES, H&P'S AND DISCHARGE SUMMARY. DISCUSSED TEST RESULTS, ANTICIPATED COURSE, MEDICATIONS AND IMPORTANCE OF NOT MISSING DOSES OF MEDICATIONS, NEED TO REFRAIN FROM DRUGS OR TAKING ANY MEDICATIONS/DRINKS/FOODS THAT SHE OR HER MOTHER DID NOT MAKE, NEED FOR FOLLOW UP AND RETURN PRECAUTIONS, DISCUSSED WITH MOTHER AND PATIENT. MOTHER CONFIRMED THAT PT DOES HAVE THE CLONIDINE PATCHES AT HOME, AND SO DID PATIENT, AND DOES NOT NEED ANY PRESCRIPTIONS REFILLED FOR BLOOD PRESSURE MEDICATIONS. Initial ECG Impression Date: Dec 16, 2022 Initial ECG Impression Time: 01:30 Initial ECG Rate: 66 Initial ECG Rhythm: Normal Sinus Initial ECG Comparisson: Unchanged Departure Impression Primary Impression: Methamphetamine use Additional Impressions: Cardiac defibrillator in place Chronic renal insufficiency Hypertension, uncontrolled Non-compliance Disposition: HOME, SELF-CARE Condition: Improved Departure-Patient Inst. Decision time for Depature: 01:50 Referrals: NO,LOCAL PHYSICIAN (PCP/Family) Primary Care Physician Patient Instructions: High Blood Pressure ED, Methamphetamine Add. Discharge Instructions: TAKE ALL OF YOUR MEDICATIONS EVERY DAY PRESCRIBED PUT YOUR CLONIDINE PATCH ON IN THE MORNING NO DRUGS FOLLOW UP WITH YOUR DR THIS WEEK FOR FURTHER CARE RETURN TO ER IF SYMPTOMS WORSEN All discharge instructions reviewed with patient and/or family. Voiced understanding. RODRIGO HILL DO Dec 16, 2022 01:10
[2022-12-16 01:22] LABS: ALBUMIN 3.9 GM/DL (3.2-4.5); CHLORIDE 103 MMOL/L (98-107); POTASSIUM 3.5 MMOL/L (3.6-5.0); SODIUM 138 MMOL/L (135-145)
[2022-12-16 01:23] LABS: CALCIUM 9.2 MG/DL (8.5-10.1)
[2022-12-16 01:25] LABS: GLUCOSE 95 MG/DL (70-105); TOTAL PROTEIN 7.1 GM/DL (6.4-8.2)
[2022-12-16 01:26] LABS: BILIRUBIN,TOTAL 0.3 MG/DL (0.1-1.0); CARBON DIOXIDE 24 MMOL/L (21-32)
[2022-12-16 01:28] LABS: ALKALINE PHOSPHATASE 72 U/L (40-136); CREATININE SERUM 2.19 MG/DL (0.60-1.30); GFR ESTIMATED 30
[2022-12-16 01:29] LABS: BUN/CREATININE RATIO 8
[2022-12-16 01:31] LABS: ALANINE AMINOTRANSFERASE 21 U/L (0-55)
--- NOTE | 2022-12-16 05:31 | Diagnostic Imaging Report ---
INDICATION: Chest pain. Comparison is made with prior examination 02/08/2022 FINDINGS: The heart size is normal. Lungs are clear. There is no pleural effusion or pneumothorax. Mediastinum is unremarkable. Pacemaker overlies left hemithorax. IMPRESSION: No acute cardiopulmonary abnormality. Dictated by: Dictated on workstation # [id number]
== END 2022-12-16 02:07 | disposition home or self-care (01) ==
LOC: EDUNIT# 00:03 → ER 00:05
DX: F15.90 Other stimulant use, unspecified, uncomplicated (principal); E66.9 Obesity, unspecified; I12.9 Hypertensive chronic kidney disease with stage 1 through stage 4 chronic kidney disease, or unspecified chronic kidney disease; N18.9 Chronic kidney disease, unspecified; Z68.38 Body mass index [BMI] 38.0-38.9, adult; F17.200 Nicotine dependence, unspecified, uncomplicated; Z91.14 Patient's other noncompliance with medication regimen; Z95.810 Presence of automatic (implantable) cardiac defibrillator
CPT/HCPCS: 36415; 71045; 80053; 80306; 80320; 81000; 84484; 84703; 85025; 93005; 93041

== ENCOUNTER 2023-01-14 01:13 | Emergency (ER) | payer MEDICARE, MEDICAID ==
[~2023-01-14] VITALS: Ht 160 cm; Wt 106.0 kg
[~2023-01-14 01:13] MED LIST changes: +DIPH-1122 PO; -DIPH25CA48 PO
[2023-01-14 01:21] VITALS: BP 187/104
[2023-01-14] MEDS ORDERED: SULF1TAB38 PO (01:31)
--- NOTE | 2023-01-14 01:31 | ED Integumentary General ---
General Chief Complaint: Facial Problems Stated Complaint: CHIN & THROAT SWOLLEN History of Present Illness Date Seen by Provider: Jan 14, 2023 Time Seen by Provider: 01:27 Initial Comments 32-year-old female presents with some swelling to her left chin feels like maybe it goes back little bit towards her neck. She reports been going on for couple days. That feels like her skin feels little numb and tingly. She denies any fevers chills nausea or vomiting. Is been going on for a couple days. Allergies and Home Medications Allergies Coded Allergies: JIA Inhibitors (Verified Allergy, Severe, 05/22/19) ARB-Angiotensin Receptor Antagonist (Verified Allergy, Severe, 05/22/19) amoxicillin (Verified Allergy, Unknown, 05/28/21) baclofen (Unverified Allergy, Unknown, 05/22/19) ON H&P clavulanic acid (Verified Allergy, Unknown, 05/28/21) phenazopyridine (Unverified Allergy, Unknown, 05/22/19) ON H&P Patient Home Medication List Home Medication List Reviewed: Yes Albuterol Sulfate (Rx-Proair) 8 Gm Hfa.aer.ad, 2 PUFF INH Q6H PRN for SHORTNESS OF BREATH, (Reported) Entered as Reported by: BROWN SCHULER on 03/21/15 1434 Amlodipine Besylate (Amlodipine Besylate) 10 Mg Tablet, 10 MG PO DAILY, (Reported) Entered as Reported by: TUNG HELTON on 07/23/15 0737 Apixaban (Eliquis) 5 Mg Tablet, 5 MG PO BID Prescribed by: RALPH DELCID on 11/01/18 1856 Azithromycin (Azithromycin) 250 Mg Tablet, 250 MG PO DAILY Prescribed by: Radha mayo on 06/10/222056 Biotin (Biotin) 5,000 Mcg Tab.rapdis, (Reported) Entered as Reported by: MIKY CAMPBELL on 05/22/192116 Clindamycin HCl (Clindamycin HCl) 300 Mg Capsule, 300 MG PO QID Prescribed by: KEYA LENTZ on 03/11/222202 Clindamycin HCl (Clindamycin HCl) 300 Mg Capsule, 300 MG PO TID Prescribed by: EDISON CHAMBERLAIN on 06/17/22 2334 Cyclobenzaprine HCl (Cyclobenzaprine HCl) 10 Mg Tablet, 10 MG PO BID PRN for chest wall pain/muscle spasm Prescribed by: EDISON CHAMBERLAIN on 12/24/21 0206 Diphenoxylate HCl/Atropine (Lomotil 2.5-0.025 mg Tablet) 1 Each Tablet, 1 EACH PO BID PRN for DIARRHEA Prescribed by: ORESTES VELASCO on 11/29/19 2309 Epinephrine (Epinephrine) 0.3 Mg/0.3 Ml Auto.injct, 0.3 MG IJ PRN Prescribed by: MOUNIKA GARCIA on 05/28/21 0932 Famotidine (Famotidine) 20 Mg Tablet, (Reported) Entered as Reported by: TALISHA CELIS on 08/05/18 181 Gabapentin (Gabapentin) 100 Mg Capsule, 100 MG PO Q8H PRN for burning pain/neuropathy thumb Prescribed by: EDISON CHAMBERLAIN on 04/14/22 0337 Hydrocodone/Acetaminophen (Hydrocodone-Acetamin 5-325 mg) 1 Each Tablet, 1 TAB PO Q4H PRN for PAIN-MODERATE (5-7) Prescribed by: KEYA LENTZ on 03/11/22 2204 Hydrocodone/Acetaminophen (Hydrocodone-Acetamin 5-325 mg) 5 Mg-325 Mg Tablet, 1 TAB PO Q6H PRN for PAIN-SEVERE (8-10) Prescribed by: EDISON CHAMBERLAIN on 06/17/22 2335 Hydrocodone/Acetaminophen (Hydrocodone-Acetamin 5-325 mg) 5 Mg-325 Mg Tablet, 1 TAB PO Q4H PRN for PAIN-MODERATE (5-7) Prescribed by: RALPH DELCID on 12/11/22 220 Metoprolol Tartrate (Metoprolol Tartrate) 50 Mg Tablet, 50 MG PO BID Prescribed by: FELECIA FORTUNE on 07/24/15 0841 Ondansetron (Ondansetron Odt) 4 Mg Tab.rapdis, 4 MG PO Q6H PRN for NAUSEA/VOMITI NG Prescribed by: EDISON CHAMBERLAIN on 12/03/21 215 Oxymetazoline HCl (Afrin) 0.05 % [place], 2 SPRAY NS QID PRN for nasal congestion Prescribed by: Radha mayo on 06/10/22 205 Ropinirole HCl (Ropinirole HCl) 0.5 Mg Tablet, (Reported) Entered as Reported by: TALISHA CELIS on 08/05/181809 Sacubitril/Valsartan (Entresto 24 mg-26 mg Tablet) 1 Each Tablet, (Reported) Entered as Reported by: TALISHA CELIS on 08/05/181809 [Clonidine Hydrochloride .2 Mg ] , (Reported) Entered as Reported by: MIKY CAMPBELL on 05/22/192115 [Meloxicam 15 Mg Tabs] , (Reported) Entered as Reported by: MIKY CAMPBELL on 05/22/192115 [Metoprolol Tartrate 100 Mg Tab] , (Reported) Entered as Reported by: MIKY CAMPBELL on 05/22/191929 [Olanzapine 10 Mg Tabs] , (Reported) Entered as Reported by: MIKY CAMPBELL on 05/22/192115 [Oxcarbazepine 300 Mg Tabs] , (Reported) Entered as Reported by: MIKY CAMPBELL on 05/22/192115 Review of Systems Review of Systems Constitutional: No chills, No fever Respiratory: no symptoms reported Cardiovascular: no symptoms reported Gastrointestinal: no symptoms reported Genitourinary: no symptoms reported Musculoskeletal: no symptoms reported Skin: see HPI Psychiatric/Neurological: See HPI Past Zhhbjuh-Mjeavs-Vukczl Hx Patient Social History Tobacco Use?: Yes Substance use?: Yes Alcohol Use?: Yes Pt feels they are or have been: No Immunizations Up To Date Tetanus Booster (TDap): Unknown PED Vaccines UTD: Yes First/Initial COVID19 Vaccinat: Cegal Second COVID19 Vaccination [place]: Cegal Third COVID19 Vaccination Date: Cegal Seasonal Allergies Seasonal Allergies: No Past Medical History Surgery/Hospitalization HX: Cardiac hx, stroke pacemaker replacement 3x hysterectomy, cholecystectomy, , htn, high cholesterol. Surgeries: Yes (PACER/DEFIB 2014; DEFIB PLACED 05/10/19. PEG TUBE- REMOVED;UTERINE ABLATION) Abdominal, Section, Defibrillator, Gallbladder, Hysterectomy, Pacemaker Respiratory: Yes (ARDS-CODED; PNEUMOTHORAX 06/2015) Pneumonia, Chronic Bronchitis Currently Using CPAP: No Currently Using BIPAP: No Cardiac: Yes (PULMONARY EDEMA/CARDIAC CAUSE-R/T ATRIAL THROMBUS; CARDIAC ARREST;V-FIB ) Cardiomyopathy, Endocarditis, Hypertension, Valvular Heart Disease Neurological: Yes (encephalopathy-hypoxia, anoxic brain injury; POOR MEMORY;SLURRED SPEECH) Reproductive Disorders: Yes (ENDOMETRIAL ABLATION) Female Reproductive Disorders: Menstrual Problems Sexually Transmitted Disease: No Genitourinary: Yes (BASELINE CREATININE BETWEEN 2 & 3) Renal Failure Gastrointestinal: Yes Gastroesophageal Reflux Musculoskeletal: Yes (GAIT DISTURBANCE) Endocrine: No (OBESITY) HEENT: No Loss of Vision: Denies Hearing Impairment: Denies Cancer: No Psychosocial: Yes Anxiety, Bipolar, Depression Integumentary: No Blood Disorders: Yes (ANEMIA) Family Medical History Patient reports no known family medical history. 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 Physical Exam Vital Signs Capillary Refill : General Appearance: WD/WN, no apparent distress Cardiovascular: normal peripheral pulses, regular rate, rhythm Respiratory: chest non-tender, lungs clear Neurologic/Psychiatric: alert, normal mood/affect Skin Problem Location: face (Left chin) Skin Problem Character: swelling, other (Early abscess formation but no drainable abscess at this time mild erythema) Progress/Results/Core Measures Progress Progress Note : Progress Note Patient with some mild cellulitis/early swelling but no obvious abscess that is drainable at this time. I discussed with her she can put warm compress, we will start her on Bactrim. She should follow-up with her primary care provider in a couple days for recheck. She is stable and discharged home Departure Impression Primary Impression: Cellulitis and abscess of face Disposition: HOME, SELF-CARE Condition: Stable Departure-Patient Inst. Referrals: NO,LOCAL PHYSICIAN (PCP/Family) Primary Care Physician Patient Instructions: Cellulitis (Skin Infection), Adult (DC) Add. Discharge Instructions: You may use a warm compress 3-4 times a day over your chin. Please follow-up with your primary care provider in a couple days for recheck. All discharge instructions reviewed with patient and/or family. Voiced understanding. Scripts Sulfamethoxazole/Trimethoprim (Bactrim Ds Tablet) 1 Each Tablet 1 EACH PO BID, #14 TAB Prov: VINITA RICHARD DO 01/14/23 VINITA RICHARD DO Jan 14, 2023 01:31
[2023-01-14] MEDS ORDERED: TRIM/SULFAMETH 160/800 (SEPTRA DS) TAB PO ONE (01:45)
== END 2023-01-14 01:36 | disposition home or self-care (01) ==
LOC: EDUNIT# 01:13 → ER 01:16
DX: L03.211 Cellulitis of face (principal); L02.01 Cutaneous abscess of face; E66.9 Obesity, unspecified; Z87.891 Personal history of nicotine dependence; Z88.0 Allergy status to penicillin; Z68.41 Body mass index [BMI] 40.0-44.9, adult
CPT/HCPCS: 99283

== ENCOUNTER 2023-02-14 23:30 | Emergency (ER) | payer MEDICARE, MEDICAID ==
[~2023-02-14] VITALS: Ht 160 cm; Wt 100.0 kg
[~2023-02-14 23:30] MED LIST changes: +SULF1TAB38 PO
[2023-02-14 23:41] VITALS: BP 190/126
[2023-02-15 00:25] LABS: BASOPHILS # (AUTO) 0.1 10^3/uL (0.0-0.1); BASOPHILS % (AUTO) 1 % (0-10); EOSINOPHILS % (AUTO) 1 % (0-10); HEMATOCRIT 43 % (35-52); HEMOGLOBIN 14.3 g/dL (11.5-16.0); LYMPHOCYTES # (AUTO) 3.4 10^3/uL (1.0-4.0); LYMPHOCYTES % (AUTO) 48 % (12-44); MEAN CORPUSCULAR HEMOGLOBIN 29 pg (25-34); MEAN CORPUSCULAR HGB CONC 33 g/dL (32-36); MEAN CORPUSCULAR VOLUME 87 fL (80-99); MEAN PLATELET VOLUME 9.2 fL (9.0-12.2); MONOCYTES # (AUTO) 0.6 10^3/uL (0.0-1.0); MONOCYTES % (AUTO) 8 % (0-12); NEUTROPHILS # (AUTO) 3.1 10^3/uL (1.8-7.8); NEUTROPHILS % (AUTO) 43 % (42-75); PLATELET COUNT 305 10^3/uL (130-400); WHITE BLOOD COUNT 7.2 10^3/uL (4.3-11.0)
[2023-02-15 00:28] LABS: ALBUMIN 3.3 GM/DL (3.2-4.5)
[2023-02-15 00:29] LABS: POTASSIUM 3.5 MMOL/L (3.6-5.0)
[2023-02-15 00:30] LABS: CALCIUM 8.6 MG/DL (8.5-10.1)
[2023-02-15 00:31] LABS: TOTAL PROTEIN 6.6 GM/DL (6.4-8.2)
[2023-02-15 00:33] LABS: BILIRUBIN,TOTAL 0.2 MG/DL (0.1-1.0)
[2023-02-15 00:35] LABS: CREATININE SERUM 2.15 MG/DL (0.60-1.30)
--- NOTE | 2023-02-15 04:08 | ED General ---
General Chief Complaint: COVID19 Suspect/Confirmed Stated Complaint: POSS COVID +,CP Nursing Triage Note: Pt presents with c/o chest pain, cough, congestion, chills x2 days. She states her daughter is positive for covid. Pt has had a pacemaker since age 24, and she states that it needs to be changed. Source of Information: Patient Exam Limitations: No Limitations History of Present Illness Date Seen by Provider: Feb 15, 2023 Time Seen by Provider: 00:10 Initial Comments This 32 year old woman presents to the ER with complaints of cough, congestion, chills, nausea, dry heaving, back ache, and dizziness. She has stable vital signs. She has known family exposure to COVID 19. Allergies and Home Medications Allergies Coded Allergies: JIA Inhibitors (Verified Allergy, Severe, 05/22/19) ARB-Angiotensin Receptor Antagonist (Verified Allergy, Severe, 05/22/19) amoxicillin (Verified Allergy, Unknown, 05/28/21) baclofen (Unverified Allergy, Unknown, 05/22/19) ON H&P clavulanic acid (Verified Allergy, Unknown, 05/28/21) phenazopyridine (Unverified Allergy, Unknown, 05/22/19) ON H&P Patient Home Medication List Home Medication List Reviewed: Yes Albuterol Sulfate (Rx-Proair) 8 Gm Hfa.aer.ad, 2 PUFF INH Q6H PRN for SHORTNESS OF BREATH, (Reported) Entered as Reported by: BROWN SCHULER on 03/21/15 1434 Amlodipine Besylate (Amlodipine Besylate) 10 Mg Tablet, 10 MG PO DAILY, (Reported) Entered as Reported by: TUNG HELTON on 07/23/15 0737 Apixaban (Eliquis) 5 Mg Tablet, 5 MG PO BID Prescribed by: RALPH DELCID on 11/01/18 1856 Azithromycin (Azithromycin) 250 Mg Tablet, 250 MG PO DAILY Prescribed by: Radha mayo on 06/10/222056 Biotin (Biotin) 5,000 Mcg Tab.rapdis, (Reported) Entered as Reported by: MIKY CAMPBELL on 05/22/192116 Clindamycin HCl (Clindamycin HCl) 300 Mg Capsule, 300 MG PO QID Prescribed by: KEYA LENTZ on 03/11/222202 Clindamycin HCl (Clindamycin HCl) 300 Mg Capsule, 300 MG PO TID Prescribed by: EDISON CHAMBERLAIN on 06/17/22 2334 Cyclobenzaprine HCl (Cyclobenzaprine HCl) 10 Mg Tablet, 10 MG PO BID PRN for chest wall pain/muscle spasm Prescribed by: EDISON CHAMBERLAIN on 12/24/21 0206 Diphenoxylate HCl/Atropine (Lomotil 2.5-0.025 mg Tablet) 1 Each Tablet, 1 EACH PO BID PRN for DIARRHEA Prescribed by: ORESTES VELASCO on 11/29/19 2309 Epinephrine (Epinephrine) 0.3 Mg/0.3 Ml Auto.injct, 0.3 MG IJ PRN Prescribed by: MOUNIKA GARCIA on 05/28/21 0932 Famotidine (Famotidine) 20 Mg Tablet, (Reported) Entered as Reported by: TALISHA CELIS on 08/05/18 181 Gabapentin (Gabapentin) 100 Mg Capsule, 100 MG PO Q8H PRN for burning pain/neuropathy thumb Prescribed by: EDISON CHAMBERLAIN on 04/14/22 0337 Hydrocodone/Acetaminophen (Hydrocodone-Acetamin 5-325 mg) 1 Each Tablet, 1 TAB PO Q4H PRN for PAIN-MODERATE (5-7) Prescribed by: KEYA LENTZ on 03/11/222203 Hydrocodone/Acetaminophen (Hydrocodone-Acetamin 5-325 mg) 5 Mg-325 Mg Tablet, 1 TAB PO Q6H PRN for PAIN-SEVERE (8-10) Prescribed by: EDISON CHAMBERLAIN on 06/17/22 2335 Hydrocodone/Acetaminophen (Hydrocodone-Acetamin 5-325 mg) 5 Mg-325 Mg Tablet, 1 TAB PO Q4H PRN for PAIN-MODERATE (5-7) Prescribed by: RALPH DELCID on 12/11/22 220 Metoprolol Tartrate (Metoprolol Tartrate) 50 Mg Tablet, 50 MG PO BID Prescribed by: FELECIA FORTUNE on 07/24/15 0841 Ondansetron (Ondansetron Odt) 4 Mg Tab.rapdis, 4 MG PO Q6H PRN for NAUSEA/VOMITING Prescribed by: EDISON CHAMBERLAIN on 12/03/21 215 Ondansetron (Ondansetron Odt) 4 Mg Tab.rapdis, 4 MG SL Q4H PRN for NAUSEA/VOMITING Prescribed by: RALPH DELCID on 02/15/23409 Oxymetazoline HCl (Afrin) 0.05 % [place], 2 SPRAY NS QID PRN for nasal congestion Prescribed by: Radha mayo on 06/10/222056 Ropinirole HCl (Ropinirole HCl) 0.5 Mg Tablet, (Reported) Entered as Reported by: TALISHA CELIS on 08/05/181809 Sacubitril/Valsartan (Entresto 24 mg-26 mg Tablet) 1 Each Tablet, (Reported) Entered as Reported by: TALISHA CELIS on 08/05/181809 Sulfamethoxazole/Trimethoprim (Bactrim Ds Tablet) 1 Each Tablet, 1 EACH PO BID Prescribed by: VINITA RICHARD on 01/14/23130 Tramadol HCl (Tramadol HCl) 50 Mg Tablet, 50 MG PO Q6H PRN for PAIN BREAKTROUGH Prescribed by: RALPH DELCID on 02/15/23410 [Clonidine Hydrochloride .2 Mg ] , (Reported) Entered as Reported by: MIKY CAMPBELL on 05/22/192115 [Meloxicam 15 Mg Tabs] , (Reported) Entered as Reported by: MIKY CAMPBELL on 05/22/192115 [Metoprolol Tartrate 100 Mg Tab] , (Reported) Entered as Reported by: MIKY CAMPBELL on 05/22/191929 [Olanzapine 10 Mg Tabs] , (Reported) Entered as Reported by: MIKY CAMPBELL on 05/22/192115 [Oxcarbazepine 300 Mg Tabs] , (Reported) Entered as Reported by: MIKY CAMPBELL on 05/22/192115 Review of Systems Review of Systems Constitutional: see HPI EENTM: see HPI Respiratory: see HPI Cardiovascular: see HPI Gastrointestinal: see HPI Genitourinary: no symptoms reported Musculoskeletal: see HPI Skin: no symptoms reported Psychiatric/Neurological: No Symptoms Reported Hematologic/Lymphatic: No Symptoms Reported Past Ugkzzvh-Rdgxuk-Ovwcue Hx Patient Social History Tobacco Use?: Yes Substance use?: Yes Alcohol Use?: Yes Immunizations Up To Date Tetanus Booster (TDap): Unknown PED Vaccines UTD: Yes Influenza Vaccine Up-to-Date: Yes; Up-to-Date First/Initial COVID19 Vaccinat: Zhihu Second COVID19 Vaccination Adair: Zhihu Third COVID19 Vaccination Date: Zhihu Seasonal Allergies Seasonal Allergies: No Past Medical History Surgery/Hospitalization HX: Cardiac hx, stroke pacemaker replacement 3x hysterectomy, cholecystectomy, , htn, high cholesterol. Surgeries: Yes (PACER/DEFIB 2014; DEFIB PLACED 05/10/19. PEG TUBE- REMOVED;UTERINE ABLATION) Abdominal, Section, Defibrillator, Gallbladder, Hysterectomy, Pacemaker Respiratory: Yes (ARDS-CODED; PNEUMOTHORAX 06/2015) Pneumonia, Chronic Bronchitis Currently Using CPAP: No Currently Using BIPAP: No Cardiac: Yes (PULMONARY EDEMA/CARDIAC CAUSE-R/T ATRIAL THROMBUS; CARDIAC ARREST;V-FIB ) Cardiomyopathy, Endocarditis, Hypertension, Valvular Heart Disease Neurological: Yes (encephalopathy-hypoxia, anoxic brain injury; POOR MEMORY;SLURRED SPEECH) Reproductive Disorders: Yes (ENDOMETRIAL ABLATION) Female Reproductive Disorders: Menstrual Problems Sexually Transmitted Disease: No Genitourinary: Yes (BASELINE CREATININE BETWEEN 2 & 3) Renal Failure Gastrointestinal: Yes Gastroesophageal Reflux Musculoskeletal: Yes (GAIT DISTURBANCE) Endocrine: No (OBESITY) HEENT: No Loss of Vision: Denies Hearing Impairment: Denies Cancer: No Psychosocial: Yes Anxiety, Bipolar, Depression Integumentary: No Blood Disorders: Yes (ANEMIA) Family Medical History Patient reports no known family medical history. 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 Physical Exam Vital Signs Vital Signs - First Documented 02/14/23 23:41 Temp 37.2 Pulse 105 Resp 18 B/P (MAP) 190/126 (147) Capillary Refill : Less Than 3 Seconds Height, Weight, BMI Height: 5'3.00" Weight: 234lbs. 0oz. 106.443221qc; 39.00 BMI Method:Stated General Appearance: No Apparent Distress, WD/WN, Obese HEENT: PERRL/EOMI, Normal ENT Inspection Neck: Normal Inspection; No JVD Respiratory: Lungs Clear, Normal Breath Sounds, No Accessory Muscle Use Cardiovascular: Regular Rate, Rhythm, No Edema, No Murmur Extremity: Normal Inspection, No Pedal Edema Neurologic/Psychiatric: Alert, Other (Chronic deficits including speach dysarthria and dysphasia due to prior anoxic brain injury) Skin: Normal Color, Warm/Dry Progress/Results/Core Measures Suspected Sepsis SIRS Temperature: Pulse: 105 Respiratory Rate: 18 Laboratory Tests 02/14/23 23:53: White Blood Count 7.2 Blood Pressure 190 /126 Mean: 147 Laboratory Tests 02/14/23 23:53: Creatinine 2.15H, Platelet Count 305, Total Bilirubin 0.2 Results/Orders Lab Results Laboratory Tests Test 02/14/23 23:47 02/14/23 23:53 Range/Units Influenza Type A (RT-PCR) Not Detected Not Detecte Influenza Type B (RT-PCR) Not Detected Not Detecte SARS-CoV-2 RNA (RT-PCR) Detected H Not Detecte White Blood Count 7.2 4.3-11.0 10^3/uL Red Blood Count 4.96 3.80-5.11 10^6/uL Hemoglobin 14.3 11.5-16.0 g/dL Hematocrit 43 35-52 % Mean Corpuscular Volume 87 80-99 fL Mean Corpuscular Hemoglobin 29 25-34 pg Mean Corpuscular Hemoglobin Concent 33 32-36 g/dL Red Cell Distribution Width 13.8 10.0-14.5 % Platelet Count 305 130-400 10^3/uL Mean Platelet Volume 9.2 9.0-12.2 fL Immature Granulocyte % (Auto) 0 % Neutrophils (%) (Auto) 43 42-75 % Lymphocytes (%) (Auto) 48 H 12-44 % Monocytes (%) (Auto) 8 0-12 % Eosinophils (%) (Auto) 1 0-10 % Basophils (%) (Auto) 1 0-10 % Neutrophils # (Auto) 3.1 1.8-7.8 10^3/uL Lymphocytes # (Auto) 3.4 1.0-4.0 10^3/uL Monocytes # (Auto) 0.6 0.0-1.0 10^3/uL Eosinophils # (Auto) 0.0 0.0-0.3 10^3/uL Basophils # (Auto) 0.1 0.0-0.1 10^3/uL Immature Granulocyte # (Auto) 0.0 0.0-0.1 10^3/uL Sodium Level 138 135-145 MMOL/L Potassium Level 3.5 L 3.6-5.0 MMOL/L Chloride Level 103 98-107 MMOL/L Carbon Dioxide Level 23 21-32 MMOL/L Anion Gap 12 5-14 MMOL/L Blood Urea Nitrogen 14 7-18 MG/DL Creatinine 2.15 H 0.60-1.30 MG/DL Estimat Glomerular Filtration Rate 30 BUN/Creatinine Ratio 7 Glucose Level 110 H 70-105 MG/DL Calcium Level 8.6 8.5-10.1 MG/DL Corrected Calcium 9.2 8.5-10.1 MG/DL Total Bilirubin 0.2 0.1-1.0 MG/DL Aspartate Amino Transf (AST/SGOT) 24 5-34 U/L Alanine Aminotransferase (ALT/SGPT) 38 0-55 U/L Alkaline Phosphatase 81 40-136 U/L C-Reactive Protein High Sensitivity 2.44 H 0.00-0.50 MG/DL Total Protein 6.6 6.4-8.2 GM/DL Albumin 3.3 3.2-4.5 GM/DL My Orders Orders - RALPH LÓPEZ MD Cbc With Automated Diff (02/15/23 00:10) Comprehensive Metabolic Panel (02/15/23 00:10) Hs C Reactive Protein (02/15/23 00:10) Ed Iv/Invasive Line Start (02/15/23 00:10) Covid 19 Inhouse Test (02/15/23 00:10) Influenza A And B By Pcr (02/15/23 00:10) Chest 1 View, Ap/Pa Only (02/15/23 00:10) Ondansetron Injection (Zofran Injectio (02/15/23 04:15) Tramadol Tablet (Ultram Tablet) (02/15/23 04:15) Ekg Tracing (02/14/23 23:43) Medications Given in ED Vital Signs/I&O 02/14/23 23:41 Temp 37.2 Pulse 105 Resp 18 B/P (MAP) 190/126 (147) Capillary Refill : Less Than 3 Seconds Blood Pressure Mean: 147 Progress Note : Progress Note Labs were evaluated including CBC, CMP, CRP and viral swabs. COVID 19 was positive. Creatinine was elevated and unchanged from baseline when compared. Patient has had symptoms for 7 days. She is outside the treatment window for COVID for available medical treatments. Supportive care recommended. VS were stable and BP improved while in the ER. Zofran was given for nausea. Tramadol was given for pain. Rxs provided. See discharge instructions for further discussion. ECG Initial ECG Impression Date: Feb 14, 2023 Initial ECG Impression Time: 23:43 Initial ECG Rate: 102 Initial ECG Rhythm: S.Tach Comment Sinus tachycardia with no ST elevation or depression. LVH noted. No abnormal intervals. Diagnostic Imaging Diagonstic Imaging: Xray Plain Films/CT/US/NM/MRI: chest Comments Chest x-ray viewed and interpreted by me. Report not yet available. No acute abnormalities were appreciated. Departure Impression Primary Impression: COVID-19 virus infection Additional Impressions: Nausea Myalgia Disposition: HOME, SELF-CARE Condition: Improved Departure-Patient Inst. Decision time for Depature: 04:06 Referrals: BROWN NGUYEN APRN (PCP/Family) Primary Care Physician Patient Instructions: COVID-19 Overview Add. Discharge Instructions: Drink plenty of clear liquids to stay well-hydrated. Use Zofran (ondansetron) as prescribed for nausea and vomiting. Take Tylenol (acetaminophen) up to 1000 mg every 6 hours as needed for pain. Add Ultram (tramadol) as prescribed for pain not controlled by Tylenol. Remain in quarantine until your significant symptoms have resolved and you are free of fever for at least 24 hours. Then mask for an additional 5 days after coming out of quarantine. Call your doctor with questions or concerns. Return to the ER if you have worsening symptoms despite following these instructions. If you have a pulse oximeter at home, you may check your oxygen saturations a few times a day and if you feel more short of breath. If you have multiple oxygen saturations less than 92% or any oxygen saturations less than 90%, please return to the ER. Stay active, getting up and about in the house. You may walk outside as well if the weather is nice. When sitting or lying, change positions often. All discharge instructions reviewed with patient and/or family. Voiced understanding. Scripts Tramadol HCl (Tramadol HCl) 50 Mg Tablet 50 MG PO Q6H PRN for PAIN CARITO, #10 TAB Prov: RALPH LÓPEZ MD 02/15/23 Ondansetron (Ondansetron Odt) 4 Mg Tab.rapdis 4 MG SL Q4H PRN for NAUSEA/VOMITING, #10 TAB Prov: RALPH LÓPEZ MD 02/15/23 Copy Copies To 1: [facility] [place] RALPH LÓPEZ MD Feb 15, 2023 04:08
[2023-02-15] MEDS ORDERED: ONDA4TAB11 SL (04:10)
[2023-02-15] MEDS ORDERED: TRAM50TA3 PO (04:10)
[2023-02-15] MEDS ORDERED: ONDANSETRON 4 MG/2 ML (SDV) Z0FRAN IVP ONE (04:15)
--- NOTE | 2023-02-15 06:38 | Diagnostic Imaging Report ---
INDICATION: Chest pain Portable chest 12:11 AM There is a dual-chamber pacemaker. Heart size and pulmonary vascularity are normal. Lungs are clear. There are no effusions or pneumothoraces. IMPRESSION: Negative chest Dictated by: Dictated on workstation # [id number]
== END 2023-02-15 04:20 | disposition home or self-care (01) ==
LOC: EDUNIT# 23:30 → ER 23:33
DX: U07.1 COVID-19 (principal); R11.0 Nausea; M79.10 Myalgia, unspecified site; R07.9 Chest pain, unspecified; R05.9 Cough, unspecified; R09.81 Nasal congestion; R42 Dizziness and giddiness; E66.9 Obesity, unspecified; Z68.39 Body mass index [BMI] 39.0-39.9, adult; Z87.891 Personal history of nicotine dependence
CPT/HCPCS: 36415; 71045; 80053; 85025; 86141; 87636; 93005

== ENCOUNTER 2023-02-27 04:25 | Inpatient (IN) | payer MEDICARE, MEDICAID ==
[~2023-02-27] VITALS: Ht 150 cm; Wt 99.4 kg
[~2023-02-27 04:25] MED LIST changes: +ONDA4TAB11 SL; +TRAM50TA3 PO
[2023-02-27] MEDS ORDERED: methylPREDNISolone 125 MG (Solu-MEDROL) VIAL IV STA (04:38)
[2023-02-27] MEDS ORDERED: NITROGLYCERIN 2% OINT 1 GM UNIT DOSE PACKET TOP STA (04:38)
--- NOTE | 2023-02-27 04:44 | ED Chest Pain ---
General Chief Complaint: Chest Pain Stated Complaint: SOB Nursing Triage Note: TO ED VIA POV AND AMBULATORY TO ROOM 5 WITH C/O CP FOR 1H PHYSICIAN IN PRIVATE PRACTICE AND SOA. O2 SAT 84% ON ROOM AIR. DR. HILL AT BEDSIDE. O2 APPLIED AT 2L VIA NC. PT DENIES DEFIB FIRING PHYSICIAN IN PRIVATE PRACTICE. PT HAS HX OF ANOXIC BRAIN INJURY AND IS WELL KNOWN TO ER STAFF. Source: patient (VERY LIMITED HISTORIAN), old records, mother (GIVES MOST HISTORY) History of Present Illness Date Seen by Provider: Feb 27, 2023 Time Seen by Provider: 04:27 Initial Comments PT ARRIVES VIA POV FROM HOME WITH MOTHER C/O CHEST PAIN AND SHORTNESS OF BREATH THAT BEGAN 1 HOUR AGO. STATES SHE WAS LAYING DOWN AND TRYING TO GO TO SLEEP WHEN SYMPTOMS BEGAN RATES PAIN 10 PT HAD COVID DX ON 02/14/23--SHE WAS SEEN IN ER. SENT HOME WITH RX'S FOR ZOFRAN AND TRAMADOL. NO ANTIVIRAL THERAPY. THOSE SYMPTOMS HAD IMPROVED. SHE HAD MULTIPLE FAMILY MEMBERS WITH COVID AT THAT TIME WELL. MOTHER STATES THEY WENT TO A FRIEND'S HOUSE IN [place] LAST NIGHT, AND PT WAS FINE AT THAT TIME--MOM WAS WITH HER. PT IS VERY WELL KNOWN TO ER STAFF WITH A MULTITUDE OF VISITS. SHE HAS EXTENSIVE HISTORY OF IV METHAMPHETAMINE USE WELL SMOKING IT. SHE HAS HISTORY OF ANOXIC BRAIN INJURY DUE TO V-FIB AND CARDIAC ARREST AT AGE 24, AND HAS HAD A DEFIBRILLATOR IN PLACE SINCE THEN IT HAS BEEN KNOWN FOR A LONG THAT SHE HAS HAD LOOSE LEAD WIRES LEADING TO HER DEFIBRILLATOR, AND HAS NEVER FOLLOWED UP TO GET THEM REPLACED. SHE ALSO HAS LONGSTANDING HISTORY OF SIGNIFICANT HTN WELL. PCP: [facility], NORMA NGUYEN. Allergies and Home Medications Allergies Coded Allergies: JIA Inhibitors (Verified Allergy, Severe, 05/22/19) ARB-Angiotensin Receptor Antagonist (Verified Allergy, Severe, 05/22/19) amoxicillin (Verified Allergy, Unknown, 05/28/21) baclofen (Unverified Allergy, Unknown, 05/22/19) ON H&P clavulanic acid (Verified Allergy, Unknown, 05/28/21) phenazopyridine (Unverified Allergy, Unknown, 05/22/19) ON H&P Patient Home Medication List Home Medication List Reviewed: Yes Albuterol Sulfate (Rx-Proair) 8 Gm Hfa.aer.ad, 2 PUFF INH Q6H PRN for SHORTNESS OF BREATH, (Reported) Entered as Reported by: BROWN SCHULER on 03/21/15 1434 Amlodipine Besylate (Amlodipine Besylate) 10 Mg Tablet, 10 MG PO DAILY, (Reported) Entered as Reported by: TUNG HELTON on 07/23/15 0737 Apixaban (Eliquis) 5 Mg Tablet, 5 MG PO BID Prescribed by: RALPH DELCID on 11/01/18 1856 Azithromycin (Azithromycin) 250 Mg Tablet, 250 MG PO DAILY Prescribed by: Radha mayo on 06/10/22 205 Biotin (Biotin) 5,000 Mcg Tab.rapdis, (Reported) Entered as Reported by: MIKY CAMPBELL on 05/22/192116 Clindamycin HCl (Clindamycin HCl) 300 Mg Capsule, 300 MG PO QID Prescribed by: KEYA LENTZ on 03/11/22 220 Clindamycin HCl (Clindamycin HCl) 300 Mg Capsule, 300 MG PO TID Prescribed by: EDISON CHAMBERLAIN on 06/17/22 2334 Cyclobenzaprine HCl (Cyclobenzaprine HCl) 10 Mg Tablet, 10 MG PO BID PRN for chest wall pain/muscle spasm Prescribed by: EDISON CHAMBERLAIN on 12/24/21 0206 Diphenoxylate HCl/Atropine (Lomotil 2.5-0.025 mg Tablet) 1 Each Tablet, 1 EACH PO BID PRN for DIARRHEA Prescribed by: ORESTES VELASCO on 11/29/19 2309 Epinephrine (Epinephrine) 0.3 Mg/0.3 Ml Auto.injct, 0.3 MG IJ PRN Prescribed by: MOUNIKA GARCIA on 05/28/21 0932 Famotidine (Famotidine) 20 Mg Tablet, (Reported) Entered as Reported by: TALISHA CELIS on 08/05/18 1811 Gabapentin (Gabapentin) 100 Mg Capsule, 100 MG PO Q8H PRN for burning pain/neuropathy thumb Prescribed by: EDISON CHAMBERLAIN on 04/14/22 0337 Hydrocodone/Acetaminophen (Hydrocodone-Acetamin 5-325 mg) 1 Each Tablet, 1 TAB PO Q4H PRN for PAIN-MODERATE (5-7) Prescribed by: KEYA LENTZ on 03/11/22 220 Hydrocodone/Acetaminophen (Hydrocodone-Acetamin 5-325 mg) 5 Mg-325 Mg Tablet, 1 TAB PO Q6H PRN for PAIN-SEVERE (8-10) Prescribed by: EDISON CHAMBERLAIN on 06/17/22 2335 Hydrocodone/Acetaminophen (Hydrocodone-Acetamin 5-325 mg) 5 Mg-325 Mg Tablet, 1 TAB PO Q4H PRN for PAIN-MODERATE (5-7) Prescribed by: RALPH DELCID on 12/11/22 220 Metoprolol Tartrate (Metoprolol Tartrate) 50 Mg Tablet, 50 MG PO BID Prescribed by: FELECIA FORTUNE on 07/24/15 0841 Ondansetron (Ondansetron Odt) 4 Mg Tab.rapdis, 4 MG PO Q6H PRN for NAUSEA/VOMITING Prescribed by: EDISON CHAMBERLAIN on 12/03/212158 Ondansetron (Ondansetron Odt) 4 Mg Tab.rapdis, 4 MG SL Q4H PRN for NAUSEA/VOMITING Prescribed by: RALPH DELCID on 02/15/23 0410 Oxymetazoline HCl (Afrin) 0.05 % Gazelle, 2 SPRAY NS QID PRN for nasal congestion Prescribed by: Radha mayo on 06/10/222056 Ropinirole HCl (Ropinirole HCl) 0.5 Mg Tablet, (Reported) Entered as Reported by: TALISHA CELIS on 08/05/181809 Sacubitril/Valsartan (Entresto 24 mg-26 mg Tablet) 1 Each Tablet, (Reported) Entered as Reported by: TALISHA CELIS on 08/05/181809 Sulfamethoxazole/Trimethoprim (Bactrim Ds Tablet) 1 Each Tablet, 1 EACH PO BID Prescribed by: VINITA RICHARD on 01/14/23 013 Tramadol HCl (Tramadol HCl) 50 Mg Tablet, 50 MG PO Q6H PRN for PAIN BREAKTROUGH Prescribed by: RALPH DELCID on 02/15/23 0411 [Clonidine Hydrochloride .2 Mg ] , (Reported) Entered as Reported by: MIKY CAMPBELL on 05/22/192115 [Meloxicam 15 Mg Tabs] , (Reported) Entered as Reported by: MIKY CAMPBELL on 05/22/192115 [Metoprolol Tartrate 100 Mg Tab] , (Reported) Entered as Reported by: MIKY CAMPBELL on 05/22/191929 [Olanzapine 10 Mg Tabs] , (Reported) Entered as Reported by: MIKY CAMPBELL on 05/22/192115 [Oxcarbazepine 300 Mg Tabs] , (Reported) Entered as Reported by: MIKY CAMPBELL on 05/22/192115 Review of Systems Review of Systems Constitutional: no symptoms reported EENTM: No Symptoms Reported Respiratory: See HPI, Shortness of Air Cardiovascular: See HPI, Chest Pain Gastrointestinal: No Symptoms Reported Genitourinary: No Symptoms Reported Musculoskeletal: no symptoms reported Skin: no symptoms reported Psychiatric/Neurological: Anxiety Endocrine: No Symptoms Reported Hematologic/Lymphatic: No Symptoms Reported Past Lqlwclo-Xqjeum-Qipnyq Hx Immunizations Up To Date Tetanus Booster (TDap): Unknown PED Vaccines UTD: Yes Influenza Vaccine Up-to-Date: Yes; Up-to-Date First/Initial COVID19 Vaccinat: [email or web address] Second COVID19 Vaccination [place]: [email or web address] Third COVID19 Vaccination Date: [email or web address] COVID19 Vaccine Network Support Specialist: HAS HAD 3 VACCINES PER MOTHER Seasonal Allergies Seasonal Allergies: No Past Medical History Surgery/Hospitalization HX: Surgeries: Yes (PACER/DEFIB 2014; DEFIB PLACED 05/10/19. PEG TUBE- REMOVED;UTERINE ABLATION) Abdominal, Section, Defibrillator, Gallbladder, Hysterectomy, Pacemaker Respiratory: Yes (ARDS-CODED; PNEUMOTHORAX 06/2015) Pneumonia, Chronic Bronchitis Currently Using CPAP: No Currently Using BIPAP: No Cardiac: Yes (PULMONARY EDEMA/CARDIAC CAUSE-R/T ATRIAL THROMBUS; CARDIAC ARREST;V-FIB ) Cardiomyopathy, Endocarditis, Hypertension, Valvular Heart Disease Neurological: Yes (encephalopathy-hypoxia, anoxic brain injury; POOR MEMORY;SLURRED SPEECH) Reproductive Disorders: Yes (ENDOMETRIAL ABLATION) Female Reproductive Disorders: Menstrual Problems Sexually Transmitted Disease: No Genitourinary: Yes (BASELINE CREATININE BETWEEN 2 & 3) Renal Failure Gastrointestinal: Yes Gastroesophageal Reflux Musculoskeletal: Yes (GAIT DISTURBANCE) Endocrine: No (OBESITY) HEENT: No Loss of Vision: Denies Hearing Impairment: Denies Cancer: No Psychosocial: Yes (SUBSTANCE ABUSE) Anxiety, Bipolar, Depression Integumentary: No Blood Disorders: Yes (ANEMIA) Family Medical History Patient reports no known family medical history. No Pertinent Family Hx SOCIAL HISTORY: -OCCASIONAL ETOH -HX OF IV METH USE, CLAIMS NO USE SINCE 2016; UDS + FOR METHAMPHETAMINES 12/16/22 -QUIT SMOKING SEVERAL YEARS AGO PT HAS HISTORY OF EXTENSIVE METH USE, WITH HX OF V-FIB AND CARDIAC ARREST, CAUSING ANOXIC BRAIN INJURY. SHE HAS HAD A DEFIBRILLATOR IN PLACE SINCE AGE 24. Physical Exam Vital Signs Vital Signs - First Documented 02/27/23 02/27/23 02/27/23 04:27 04:28 04:55 Temp 36.3 Pulse 101 Resp 34 B/P (MAP) 160/149 (153) Pulse Ox 84 O2 Delivery Room Air O2 Flow Rate 2.00 FiO2 70 Capillary Refill : Less Than 3 Seconds Height, Weight, BMI Height: 5'3.00" Weight: 234lbs. 0oz. 106.412457wl; 39.00 BMI Method:Stated General Appearance: Anxious, Moderate Distress, Obese, Other (ANXIOUS, HYPERVENTILATING, DYSPNEIC) Respiratory: Other (DYSPNEIC, TACHYPNEIC, DECREASED AERATION IN LEFT > RIGHT LUNGS) Cardiovascular: No JVD, Tachycardia (110'S) Gastrointestinal: Non Tender, Soft Extremity: Normal Capillary Refill, Normal Inspection, Normal Range of Motion, Non Tender, No Calf Tenderness, No Pedal Edema Neurologic/Psychiatric: Alert, No Motor/Sensory Deficits, Other (ANXIOUS. MENTATION IS PT'S NORMAL BASELINE D/T PRIOR ANOXIC BRAIN--WITH SOME MEMORY IMPAIRMENT, GAIT DISTURBANCE, AND DECREASED MENTAL CAPACITY. ) Focused Exam Sepsis Stage: Ruled Out Reason for ruling out sepsis: DOES NOT MEET CRITERIA Possible Source: Pulmonary Time of Focused Exam: 05:00 Respiratory: Other (ON BIPAP, RESPIRATIONS EVEN AND UNLABORED, WITH INCREASED AERATION) Cardiovascular: Regular Rate, Rhythm, No Murmur Capillary Refill: Less Than 3 Seconds Skin: normal color (PT IS BLACK), warm/dry Within 3hrs of presentation: Admin ABX, Blood cultures prior to ABX's, Focus exam, Lactate level Progress/Results/Core Measures Results/Orders Lab Results Laboratory Tests Test 02/27/23 04:40 02/27/23 04:54 02/27/23 05:40 Range/Units White Blood Count 10.5 4.3-11.0 10^3/uL Red Blood Count 4.64 3.80-5.11 10^6/uL Hemoglobin 13.4 11.5-16.0 g/dL Hematocrit 41 35-52 % Mean Corpuscular Volume 88 80-99 fL Mean Corpuscular Hemoglobin 29 25-34 pg Mean Corpuscular Hemoglobin Concent 33 32-36 g/dL Red Cell Distribution Width 14.4 10.0-14.5 % Platelet Count 371 130-400 10^3/uL Mean Platelet Volume 8.9 L 9.0-12.2 fL Immature Granulocyte % (Auto) 0 % Neutrophils (%) (Auto) 49 42-75 % Lymphocytes (%) (Auto) 44 12-44 % Monocytes (%) (Auto) 5 0-12 % Eosinophils (%) (Auto) 1 0-10 % Basophils (%) (Auto) 1 0-10 % Neutrophils # (Auto) 5.1 1.8-7.8 10^3/uL Lymphocytes # (Auto) 4.7 H 1.0-4.0 10^3/uL Monocytes # (Auto) 0.5 0.0-1.0 10^3/uL Eosinophils # (Auto) 0.1 0.0-0.3 10^3/uL Basophils # (Auto) 0.1 0.0-0.1 10^3/uL Immature Granulocyte # (Auto) 0.0 0.0-0.1 10^3/uL Erythrocyte Sedimentation Rate 36 H 0-20 MM/HR Prothrombin Time 12.5 12.2-14.7 SEC INR Comment 0.9 0.8-1.4 Activated Partial Thromboplast Time 29 24-35 SEC D-Dimer 0.60 H 0.00-0.49 UG/ML Sodium Level 142 135-145 MMOL/L Potassium Level 3.6 3.6-5.0 MMOL/L Chloride Level 107 98-107 MMOL/L Carbon Dioxide Level 23 21-32 MMOL/L Anion Gap 12 5-14 MMOL/L Blood Urea Nitrogen 23 H 7-18 MG/DL Creatinine 2.77 H 0.60-1.30 MG/DL Estimat Glomerular Filtration Rate 22 BUN/Creatinine Ratio 8 Glucose Level 108 H 70-105 MG/DL Calcium Level 8.8 8.5-10.1 MG/DL Corrected Calcium 9.3 8.5-10.1 MG/DL Magnesium Level 2.1 1.6-2.4 MG/DL Total Bilirubin 0.2 0.1-1.0 MG/DL Aspartate Amino Transf (AST/SGOT) 33 5-34 U/L Alanine Aminotransferase (ALT/SGPT) 28 0-55 U/L Alkaline Phosphatase 73 40-136 U/L Total Creatine Kinase 165 29-168 U/L Creatine Kinase MB 1.7 <6.6 NG/ML Myoglobin 92.4 H 10.0-92.0 NG/ML Troponin I < 0.028 <0.028 NG/ML C-Reactive Protein High Sensitivity 1.16 H 0.00-0.50 MG/DL B-Type Natriuretic Peptide 541.4 H <100.0 PG/ML Total Protein 6.2 L 6.4-8.2 GM/DL Albumin 3.4 3.2-4.5 GM/DL Amylase Level 126 H 25-125 U/L Lipase 24 8-78 U/L Serum Test, Qualitative NEGATIVE NEGATIVE Serum Alcohol < 10 <10 MG/DL Influenza Type A (RT-PCR) Not Detected Not Detecte Influenza Type B (RT-PCR) Not Detected Not Detecte SARS-CoV-2 RNA (RT-PCR) Not Detected Not Detecte Blood Gas Puncture Site R RAD Blood Gas Patient Temperature 36.3 Arterial Blood pH 7.36 L 7.37-7.43 Arterial Blood Partial Pressure CO2 44 35-45 MMHG Arterial Blood Partial Pressure O2 209 H 79-93 MMHG Arterial Blood HCO3 24 23-27 MMOL/L Arterial Blood Total CO2 25.6 21.0-31.0 MMOL/L Arterial Blood Oxygen Saturation 100 94-100 % Arterial Blood Base Excess -0.7 -2.5-2.5 MMOL/L Alfonso Test YES-POS Blood Gas Ventilator Setting NO Blood Gas Inspired Oxygen 70% Urine Color YELLOW Urine Clarity CLEAR Urine pH 6.5 5-9 Urine Specific [place] 1.020 1.016-1.022 Urine Protein 3+ H NEGATIVE Urine Glucose (UA) NEGATIVE NEGATIVE Urine Ketones NEGATIVE NEGATIVE Urine Nitrite NEGATIVE NEGATIVE Urine Bilirubin NEGATIVE NEGATIVE Urine Urobilinogen 0.2 < = 1.0 MG/DL Urine Leukocyte Esterase NEGATIVE NEGATIVE Urine RBC (Auto) 1+ H NEGATIVE Urine RBC 0-2 /HPF Urine WBC NONE /HPF Urine Squamous Epithelial Cells 0-2 /HPF Urine Crystals NONE /LPF Urine Bacteria NEGATIVE /HPF Urine Casts NONE /LPF Urine Mucus NEGATIVE /LPF Urine Culture Indicated NO Urine Opiates Screen NEGATIVE NEGATIVE Urine Oxycodone Screen NEGATIVE NEGATIVE Urine Methadone Screen NEGATIVE NEGATIVE Urine Propoxyphene Screen NEGATIVE NEGATIVE Urine Barbiturates Screen NEGATIVE NEGATIVE Ur Tricyclic Antidepressants Screen NEGATIVE NEGATIVE Urine Phencyclidine Screen NEGATIVE NEGATIVE Urine Amphetamines Screen NEGATIVE NEGATIVE Urine Methamphetamines Screen NEGATIVE NEGATIVE Urine Benzodiazepines Screen NEGATIVE NEGATIVE Urine Cocaine Screen NEGATIVE NEGATIVE Urine Cannabinoids Screen NEGATIVE NEGATIVE My Orders Orders - RODRIGO HILL DO Ekg Tracing (02/27/23 04:26) Chest 1 View, Ap/Pa Only (02/27/23 04:26) Ed Iv/Invasive Line Start (02/27/23 04:26) O2 (02/27/23 04:26) Monitor-Rhythm Ecg Trace Only (02/27/23 04:26) Alcohol (02/27/23 04:26) Amylase (02/27/23 04:26) Bnp El (02/27/23 04:26) Cbc With Automated Diff (02/27/23 04:26) Comprehensive Metabolic Panel (02/27/23 04:26) Creatine Kinase (02/27/23 04:26) Creatine Kinase Mb (02/27/23 04:26) Hs C Reactive Protein (02/27/23 04:26) Fibrin Degradation Products (02/27/23 04:26) Drug Screen Stat (Urine) (02/27/23 04:26) Hcg,Qualitative Serum (02/27/23 04:26) Lipase (02/27/23 04:26) Magnesium (02/27/23 04:26) Protime With Inr (02/27/23 04:26) Partial Thromboplastin Time (02/27/23 04:26) Ua Culture If Indicated (02/27/23 04:26) Erythrocyte Sedimentation Rate (02/27/23 04:26) Myoglobin Serum (02/27/23 04:26) Troponin I El (02/27/23 04:26) Covid 19 Inhouse Test (02/27/23 04:26) Influenza A And B By Pcr (02/27/23 04:26) Isolation Central Supply Req (02/27/23 04:26) Albuterol/Ipra Inhalation Soln (Duoneb I (02/27/23 04:45) Dexamethasone Injection (Decadron Injec (02/27/23 04:45) Rt Request For Service (02/27/23 04:38) Methylprednisolone Sod Succ (Solu-Medrol (02/27/23 04:38) Nitroglycerin Ointment (Nitrobid Ointme (02/27/23 04:38) Aspirin Chewable Tablet (Baby Aspirin Ch (02/27/23 04:45) Svn Small Volume Nebulizer (02/27/23 04:38) Arterial Blood Gas (02/27/23 04:38) Ondansetron Injection (Zofran Injectio (02/27/23 04:45) Catheter(Urinary) Insert & Ass 03,15 (02/27/23 05:24) Lidocaine 2% (Urojet) (Xylocaine Urojet) (02/27/23 05:30) Furosemide Injection (Lasix Injection) (02/27/23 05:30) Cefepime Injection (Maxipime Injection) (02/27/23 05:30) Enoxaparin Injection (Lovenox Injection) (02/27/23 05:45) Metoprolol Succinate (Xl) Tab (Toprol Xl (02/27/23 06:00) Potassium Chloride (Tablet) (Klor Con Ta (02/27/23 06:00) Ed Admission (Communication) (02/27/23 05:50) Labetalol Injection (Normodyne Injection (02/27/23 06:30) Medications Given in ED Vital Signs/I&O 02/27/23 02/27/23 02/27/23 02/27/23 04:27 04:28 04:45 04:55 Temp 36.3 Pulse 101 Resp 34 36 B/P (MAP) 160/149 (153) Pulse Ox 84 100 O2 Delivery Room Air Nasal Cannula NIV Bilevel O2 Flow Rate 2.00 70.00 FiO2 70 02/27/23 07:51 Temp 36.3 Pulse 72 Resp 22 B/P (MAP) 143/99 Pulse Ox 98 O2 Delivery NIV Bilevel O2 Flow Rate 70.00 Blood Pressure Mean: 153 Progress Progress Note : Progress Note O2 SAT ON ARRIVAL 84% IMMEDIATELY PLACED ON O2 VIA NASAL CANULA, THEN OXIMASK, AND RT CALLED FOR BIPAP. INITIAL BP 170'S/140'S. HR 110'S. RR IN 50'S. CARDIAC TESTS ORDERED, WELL SEPSIS PROTOCOL INITIATED. GIVEN: -ASPIRIN -NITROPASTE -SOLU-MEDROL -LASIX -LABETALOL -LOVENOX -CEFEPIME PLACED ON BIPAP AND IN-LINE NEB TREATMENT GIVEN. IMMEDIATE IMPROVEMENT IN O2 SATS--UP TO 100%, RESPIRATORY RATE DOWN TO 30'S, PT IS CALMER, HR DOWN TO LESS THAN 100, INCREASED AERATION, AND DECREASED WORK OF BREATHING. NO LONGER C/O CHEST PAIN NO DETERIORATION IN PT'S CONDITION DURING ER STAY COMPLEX MANAGEMENT DUE TO MULTIPLE ISSUES: -ACUTE RESPIRATORY FAILURE --LIKELY MULTIFACTORIAL. STABILIZED ON BIPAP -CHF -CHEST PAIN -SEVERE HTN -POST COVID --POSSIBLE P.E. AND/OR PNEUMONIA. UNABLE TO DO CT CHEST ANGIOGRAM DUE TO CHRONIC RENAL INSUFF. AND LOW GFR. WILL TREAT EMPIRICALLY WITH ANTIBIOTICS AND ANTICOAGULATION, PENDING ADDITIONAL TESTING -PT WITH CARDIOMYOPATHY WITH EF OF 30-35% ON LAST ECHO 11/2021. DEFIBRILLATOR IN PLACE, WITH KNOWN LOOSE LEAD WIRES. -PT WITH DECREASED MENTAL CAPACITY DUE TO PRIOR ANOXIC BRAIN INJURY IV FLUIDS HELD DUE TO PT BEING IN CHF. REVIEWED MULTITUDE OF PRIOR VISITS, MOST ER VISITS WITH SOME ADMITS, H&P'S, CONSULTS, DISCHARGE SUMMARIES, TESTS/PROCEDURES DISCUSSED CODE STATUS WITH MOM--PT IS FULL CODE. REVIEWED TEST RESULTS WITH PT AND MOTHER, NEED FOR ADMIT, AND PT AND MOTHER AGREE. MOM WILL NOT BE ABLE TO BE WITH PT TODAY, SHE HAS TO GO TO WORK. PT BECAME VERY ANXIOUS ABOUT MOM NOT BEING ABLE TO BE WITH HER. WILL TRY TO ARRANGE FOR SITTER TO BE WITH PT UNTIL MOM CAN BE WITH HER. Initial ECG Impression Date: Feb 27, 2023 Initial ECG Impression Time: 04:33 Initial ECG Rate: 100 Initial ECG Rhythm: S.Tach Initial ECG Intervals MT 180 QRS 91 QT/QTC 377/434 Initial ECG Impression: Nonspecific Changes Initial ECG Comparisson: Unchanged Comment INTERPRETED BY ME Diagnostic Imaging Comments CXR--PENDING RADIOLOGIST REVIEW -CHF CANNOT R/O UNDERLYING INFILTRATES. Reviewed: Reviewed by Me Departure Communication (Admissions) 3743--SPOKE WITH DR. GARCIA, HOSPITALIST FOR [facility]. ACCEPTS PT FOR ADMIT/ 0537--REPORT TO E-ICU PHYSICIAN 0543--SPOKE WITH DR. ZAMORA, STERILIZER OPERATOR, ORDERS NOTED. Impression Primary Impression: Acute respiratory failure Additional Impressions: Chest pain Uncontrolled hypertension CHF (congestive heart failure) Chronic renal insufficiency RECENT COVID 19 VIRUS INFECTION 02/14/23 HX OF NON-ISCHEMIC CARDIOMYOPATHY WITH DEFIBRILLATOR IN PLACE History of anoxic brain injury HX OF V-FIB WITH CARDIAC ARREST History of methamphetamine use Disposition: ADMITTED INPATIENT Condition: Improved Admissions Decision to Admit Reason: Admit from ER (General) Decision to Admit/Date: Feb 27, 2023 Time/Decision to Admit Time: 05:35 Departure-Patient Inst. Referrals: BROWN NGUYEN BUGGY OPERATOR (PCP/Family) Primary Care Physician RODRIGO HILL DO Feb 27, 2023 04:44
[2023-02-27] MEDS ORDERED: RT-ALBUTEROL/IPRATROPIUM 3 ML (DUONEB) VIAL INH ONE (04:45)
[2023-02-27] MEDS ORDERED: ASPIRIN 81 MG CHEW (CHILDREN'S ASA) PO ONE (04:45)
[2023-02-27] MEDS ORDERED: ONDANSETRON 4 MG/2 ML (SDV) Z0FRAN IVP ONE (04:45)
[2023-02-27 04:49] LABS: BASOPHILS # (AUTO) 0.1 10^3/uL (0.0-0.1); BASOPHILS % (AUTO) 1 % (0-10); EOSINOPHILS # (AUTO) 0.1 10^3/uL (0.0-0.3); EOSINOPHILS % (AUTO) 1 % (0-10); HEMATOCRIT 41 % (35-52); HEMOGLOBIN 13.4 g/dL (11.5-16.0); LYMPHOCYTES # (AUTO) 4.7 10^3/uL (1.0-4.0); LYMPHOCYTES % (AUTO) 44 % (12-44); MEAN CORPUSCULAR HEMOGLOBIN 29 pg (25-34); MEAN CORPUSCULAR HGB CONC 33 g/dL (32-36); MEAN CORPUSCULAR VOLUME 88 fL (80-99); MEAN PLATELET VOLUME 8.9 fL (9.0-12.2); MONOCYTES # (AUTO) 0.5 10^3/uL (0.0-1.0); MONOCYTES % (AUTO) 5 % (0-12); NEUTROPHILS # (AUTO) 5.1 10^3/uL (1.8-7.8); NEUTROPHILS % (AUTO) 49 % (42-75); PLATELET COUNT 371 10^3/uL (130-400); WHITE BLOOD COUNT 10.5 10^3/uL (4.3-11.0)
[2023-02-27 05:02] LABS: ALBUMIN 3.4 GM/DL (3.2-4.5); CHLORIDE 107 MMOL/L (98-107); POTASSIUM 3.6 MMOL/L (3.6-5.0); SODIUM 142 MMOL/L (135-145)
[2023-02-27 05:02] LABS: ABG BASE EXCESS -0.7 MMOL/L (-2.5-2.5); ABG OXYGEN SATURATION 100 % (94-100); ABG PCO2 44 MMHG (35-45); ABG PH 7.36 (7.37-7.43); ABG PO2 209 MMHG (79-93); ABG TCO2 25.6 MMOL/L (21.0-31.0); ALLENS TEST YES-POS; INSPIRED O2 70%; VENTILATOR NO
[2023-02-27 05:03] LABS: AMYLASE 126 U/L (25-125); CALCIUM 8.8 MG/DL (8.5-10.1)
[2023-02-27 05:04] LABS: GLUCOSE 108 MG/DL (70-105); TOTAL PROTEIN 6.2 GM/DL (6.4-8.2)
[2023-02-27 05:05] LABS: CARBON DIOXIDE 23 MMOL/L (21-32)
[2023-02-27 05:06] LABS: BILIRUBIN,TOTAL 0.2 MG/DL (0.1-1.0)
[2023-02-27 05:08] LABS: ALKALINE PHOSPHATASE 73 U/L (40-136); CREATININE SERUM 2.77 MG/DL (0.60-1.30); GFR ESTIMATED 22
[2023-02-27 05:09] LABS: BUN/CREATININE RATIO 8
[2023-02-27 05:11] LABS: ALANINE AMINOTRANSFERASE 28 U/L (0-55); MAGNESIUM 2.1 MG/DL (1.6-2.4)
[2023-02-27 05:12] LABS: CREATINE KINASE 165 U/L (29-168)
[2023-02-27 05:14] LABS: FIBRIN DEGRADATION PRODUCTS 0.6 UG/ML (0.00-0.49); INR 0.9 (0.8-1.4); PROTHROMBIN TIME PATIENT 12.5 SEC (12.2-14.7)
[2023-02-27 05:16] LABS: ERYTHROCYTE SEDIMENTATION RATE 36 MM/HR (0-20)
[2023-02-27 05:17] LABS: PATIENT TEMP 36.3
[2023-02-27 05:19] LABS: CREATINE KINASE MB 1.7 NG/ML (<6.6)
[2023-02-27] MEDS ORDERED: FUROSEMIDE 40 MG/4 ML INJ (LASIX) IVP ONE (05:30)
[2023-02-27] MEDS ORDERED: CEFEPIME INJECTION 1,000 MG in NS (IVPB) 50 ML IV ONE (05:30)
[2023-02-27] MEDS ORDERED: LIDOCAINE UROJET 2% GEL 10 ML PKG TOP ONE (05:30)
[2023-02-27] MEDS ORDERED: ENOXAPARIN 100 MG/1 ML (LOVENOX) SYR SC ONE (05:45)
[2023-02-27 05:47] LABS: LIPASE 24 U/L (8-78)
[2023-02-27 05:49] LABS: BILIRUBIN,URINE NEGATIVE (NEGATIVE); CLARITY,URINE CLEAR; COLOR,URINE YELLOW; GLUCOSE, URINE (UA) NEGATIVE (NEGATIVE); KETONES,URINE NEGATIVE (NEGATIVE); LEUKOCYTE ESTERASE ,URINE NEGATIVE (NEGATIVE); NITRITE,URINE NEGATIVE (NEGATIVE); PH,URINE 6.5 (5-9); PROTEIN,URINE 3+ (NEGATIVE)
[2023-02-27] MEDS ORDERED: meTOprolol SUCCINATE 100 MG (TOPROL XL) TAB PO ONE ×2 (06:00→09:45)
[2023-02-27] MEDS ORDERED: KCL 10 MEQ TAB (MICRO K) PO ONE ×2 (06:00→09:45)
[2023-02-27 06:01] LABS: AMPHETAMINE SCREEN, URINE NEGATIVE (NEGATIVE); BACTERIA,URINE NEGATIVE /HPF; BARBITURATE SCREEN URINE NEGATIVE (NEGATIVE); BENZODIAZEPINES SCREEN URINE NEGATIVE (NEGATIVE); CANNABINOID SCREEN, URINE NEGATIVE (NEGATIVE); COCAINE SCREEN URINE NEGATIVE (NEGATIVE); METHADONE STAT NEGATIVE (NEGATIVE); OPIATE SCREEN URINE NEGATIVE (NEGATIVE); OXYCODONE STAT NEGATIVE (NEGATIVE); PROPOXYPHENE STAT NEGATIVE (NEGATIVE); RBC,URINE 0-2 /HPF; SQUAMOUS EPITHELIAL CELL,UR 0-2 /HPF; TRICYCLIC ANTIDEPRESSANTS SCRE NEGATIVE (NEGATIVE)
--- NOTE | 2023-02-27 06:21 | History & Physical-Hospitalist ---
History of Present Illness HPI/Chief Complaint CC: Dyspnea HPI: This is a 32yoAAF who has a h/o cardiac arrest 9 years ago who presented to the ER with dyspnea and edema. She reports it was gradual in progression but she worsened to the point of not being able to breathe. She was found to have AECHF so Cardiology was consulted and ECHO was ordered. No pain reported. Labs and meds were reviewed. Source: patient Exam Limitations: no limitations Date Seen 02/27/23 Time Seen by a Provider: 11:00 Attending Physician Itzel Fonseca Aprn PCP Admitting Physician: Attending Physician: Referring Physician Date of Admission Home Medications & Allergies Home Medications Reviewed patient Home Medication Reconciliation performed by pharmacy medication reconciliations finishing technician and/or nursing. Patients Allergies have been reviewed. Allergies Allergies Coded Allergies JIA Inhibitors (Verified Allergy, Severe, 05/22/19) ARB-Angiotensin Receptor Antagonist (Verified Allergy, Severe, 05/22/19) amoxicillin (Verified Allergy, Unknown, 05/28/21) baclofen (Unverified Allergy, Unknown, 05/22/19) ON H&P clavulanic acid (Verified Allergy, Unknown, 05/28/21) phenazopyridine (Unverified Allergy, Unknown, 05/22/19) ON H&P Past Gsorcop-Baoehv-Hclnna Hx Patient Social History Marrital Status: single Employed/Student: unemployed Smoking Status: Former Smoker Immunizations Up To Date Date of Influenza Vaccine: Aug 19, 2015 First/Initial COVID19 Vaccinat: Pfizer Second COVID19 Vaccination [place]: Pfizer Tetanus Booster (TDap): Less Than 5 Years Hepatitis A: No Hepatitis B: No PED Vaccines UTD: Yes Date of Pneumonia Vaccine: Sep 09, 2018 Seasonal Allergies Seasonal Allergies: No Current Status Primary Language: Luxembourgish Preferred Spoken Language: Luxembourgish Past Medical History Surgeries: Abdominal, Section, Defibrillator, Gallbladder, Hysterectomy, Pacemaker Pneumonia, Chronic Bronchitis Currently Using CPAP: No Currently Using BIPAP: No Cardiomyopathy, Endocarditis, Hypertension, Valvular Heart Disease Sexually Transmitted Disease: No Renal Failure Gastroesophageal Reflux Loss of Vision: Denies Hearing Impairment: Denies Anxiety, Bipolar, Depression Blood Disorders: Yes (ANEMIA) Family Medical History Patient reports no known family medical history. 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 SHE HAS HAD A DEFIBRILLATOR IN PLACE SINCE AGE 24. Review of Systems Constitutional: see HPI EENTM: no symptoms reported Respiratory: dyspnea on exertion Cardiovascular: palpitations Gastrointestinal: no symptoms reported Genitourinary: no symptoms reported Musculoskeletal: no symptoms reported Skin: no symptoms reported Psychiatric/Neurological: No Symptoms Reported All Other Systems Reviewed Negative Unless Noted: Yes Physical Exam Physical Exam Vital Signs Vital Signs - First Documented 02/27/23 02/27/23 02/27/23 04:27 04:28 04:55 Temp 36.3 Pulse 101 Resp 34 B/P (MAP) 160/149 (153) Pulse Ox 84 O2 Delivery Room Air O2 Flow Rate 2.00 FiO2 70 Capillary Refill : Less Than 3 Seconds Height, Weight, BMI Height: 5'3.00" Weight: 234lbs. 0oz. 106.455810hm; 39.00 BMI Method:Stated General Appearance: Anxious, Chronically ill, Mild Distress Eyes: Right Eye Normal Inspection, Right Eye PERRL HEENT: PERRL/EOMI, Normal ENT Inspection, Pharynx Normal, Moist Mucous Membranes Neck: Full Range of Motion, Normal Inspection, Non Tender Respiratory: Chest Non Tender, Lungs Clear, No Accessory Muscle Use, No Respiratory Distress, Decreased Breath Sounds Cardiovascular: Regular Rate, Rhythm, No Edema, No Gallop, No JVD, No Murmur, Normal Peripheral Pulses Gastrointestinal: Normal Bowel Sounds, No Organomegaly, No Pulsatile Mass, Non Tender, Soft Back: Normal Inspection, No CVA Tenderness, No Vertebral Tenderness Extremity: Normal Capillary Refill, Normal Inspection, Normal Range of Motion, Non Tender, No Calf Tenderness, No Pedal Edema Neurologic/Psychiatric: Alert, Oriented x3, No Motor/Sensory Deficits, Normal Mood/Affect Skin: Normal Color, Warm/Dry Lymphatic: No Adenopathy Results Results/Procedures Labs Laboratory Tests 02/27/23 04:40 02/28/23 03:10 Patient resulted labs reviewed. Assessment/Plan Admission Diagnosis Assessment: AECHF Edema Defib in place HTN HLP h/o meth use Plan: ICU Dr Perez consult Monitor closely Admission Status: Inpatient Order (span 2 midnights) Reason for Inpatient Admission: aechf Clinical Quality Measures AMI/AHF: ASA po Prior to arrival: MEGGAN Edwards DO Feb 27, 2023 06:21
[2023-02-27] MEDS ORDERED: LABETALOL HCL 20 MG/4 ML VIAL IV ONE (06:30)
--- NOTE | 2023-02-27 07:35 | Diagnostic Imaging Report ---
INDICATION: Chest pain, Covid positive. EXAMINATION: Chest on 02/27/2023. COMPARISON: 02/15/2023. FINDINGS: The left-sided pacemaker is stable. The heart is unchanged. The pulmonary vasculature is congested. There are findings of edema throughout both lungs with superimposed infiltrates suspected. No effusions. No pneumothorax. IMPRESSION: Pulmonary edema with likely superimposed infiltrates. Dictated by: Dictated on workstation # [id number]
[2023-02-27 08:48] VITALS: BP 151/110
[2023-02-27] MEDS ORDERED: HYDROmorphone 2 MG/ML VIAL (DILAUDID) IV PRN (09:15)
[2023-02-27] MEDS ORDERED: BISACODYL 10 MG SUPP (DULCOLAX) PR PRN (09:15)
[2023-02-27] MEDS ORDERED: PATIENT MAY USE OWN MEDS, ALL PO SCH (09:15)
[2023-02-27] MEDS ORDERED: ANTACID SUSP 30 ML UDC (MYLANTA) PO PRN (09:15)
[2023-02-27] MEDS ORDERED: LORazepam 0.5 MG (ATIVAN) TABLET PO PRN (09:15)
[2023-02-27] MEDS ORDERED: LORazepam INJ 2 MG/ML (ATIVAN) VIAL IVP PRN (09:15)
[2023-02-27] MEDS ORDERED: ONDANSETRON 4 MG/2 ML (SDV) Z0FRAN IV PRN (09:15)
[2023-02-27] MEDS ORDERED: diphenhydrAMINE 50 MG/ML INJ (BENADRYL) IVP PRN (09:15)
[2023-02-27] MEDS ORDERED: MELATONIN 3 MG TABLET PO PRN (09:15)
[2023-02-27] MEDS ORDERED: LACTULOSE SYRUP 10GM/15ML (ENULOSE) 30ML UDC PO PRN (09:15)
[2023-02-27] MEDS ORDERED: MILK OF MAGNESIA 400 MG/5 ML 30 ML UDC PO PRN (09:15)
[2023-02-27] MEDS ORDERED: CALCIUM CARBONATE 500 MG (TUMS) TAB.CHEW PO PRN (09:15)
[2023-02-27] MEDS ORDERED: ONDANSETRON 4 MG (ZOFRAN) ORAL DISSOLVE TAB PO PRN (09:15)
[2023-02-27] MEDS ORDERED: diphenhydrAMINE 25 MG TAB (BENADRYL) PO PRN (09:15)
[2023-02-27] MEDS ORDERED: polyethylene glycoL POWDER 17 GM (MIRALAX) PACK PO PRN (09:15)
[2023-02-27] MEDS ORDERED: NS IV 500 ML 500 ML IV PRN (09:15)
[2023-02-27] MEDS ORDERED: DexMEDEtomidine 250 ML DRIP 250 ML IV SCH (09:15)
[2023-02-27 09:22] VITALS: BP 151/110
[2023-02-27] MEDS: ACETAMINOPHEN 325 MG TABLET PO PRN (09:30)
[2023-02-27] MEDS ORDERED: RT-ALBUTEROL HFA 8.5 GM INHALER IH PRN (09:45)
--- NOTE | 2023-02-27 10:22 | Tele-ICU Consult ---
History of Present Illness History of Present Illness Date Seen by Provider: Feb 27, 2023 Time Seen by Provider: 10:17 History of Present Illness Spoke with RN 32 yo F with SOB, recent COVID last month had CP arrest 8y ago, has AICD, wires known to be loose. CXR shows marked cardiomegaly, congestion, bilateral pleural effusions In past echo 2016 showed diffuse hypokinesis LVEF 40-45%, mild mitral regurg, ao rtic valve described as ok WIll be seen by pcmh specialist Right now A and O,is slow to respond in NSR, on BiPAP 11/02, FiO2 30%, BP has been 160-170/100, given metoprolol c/o BABCOCK given Tylenol HCG neg Cr 2.77, BNP 541, ABG 7.36/44/209, WBC 10.5, Hb 13.4, Trop neg, BUN 23 PMH Valular heart diseae CKD Cr 2-3, not a HD pt GERD Allergies and Home Medications Allergies Coded Allergies: JIA Inhibitors (Verified Allergy, Severe, 05/22/19) ARB-Angiotensin Receptor Antagonist (Verified Allergy, Severe, 05/22/19) amoxicillin (Verified Allergy, Unknown, 05/28/21) baclofen (Unverified Allergy, Unknown, 05/22/19) ON H&P clavulanic acid (Verified Allergy, Unknown, 05/28/21) phenazopyridine (Unverified Allergy, Unknown, 05/22/19) ON H&P Home Medications Albuterol Sulfate 8 Gm Hfa.aer.ad, 2 PUFF INH Q6H PRN for SHORTNESS OF BREATH, (Reported) Amlodipine Besylate 10 Mg Tablet, 10 MG PO DAILY, (Reported) Apixaban 5 Mg Tablet, 5 MG PO BID Prescribed by: RALPH DELCID on 11/01/18 185 Azithromycin 250 Mg Tablet, 250 MG PO DAILY Prescribed by: Radha mayo on 06/10/222056 Clindamycin HCl 300 Mg Capsule, 300 MG PO QID Prescribed by: KEYA LENTZ on 03/11/222202 Clindamycin HCl 300 Mg Capsule, 300 MG PO TID Prescribed by: EDISON CHAMBERLAIN on 06/17/22 2334 Cyclobenzaprine HCl 10 Mg Tablet, 10 MG PO BID PRN for chest wall pain/muscle spasm Prescribed by: EDISON CHAMBERLAIN on 12/24/21 0206 Diphenoxylate HCl/Atropine 1 Each Tablet, 1 EACH PO BID PRN for DIARRHEA Prescribed by: ORESTES VELASCO on 11/29/19 230 Epinephrine 0.3 Mg/0.3 Ml Auto.injct, 0.3 MG IJ PRN Prescribed by: MOUNIKA GARCIA on 05/28/21 0932 Gabapentin 100 Mg Capsule, 100 MG PO Q8H PRN for burning pain/neuropathy thumb Prescribed by: EDISON CHAMBERLAIN on 04/14/22 0337 Hydrocodone/Acetaminophen 1 Each Tablet, 1 TAB PO Q4H PRN for PAIN-MODERATE (5- 7) Prescribed by: KEYA LENTZ on 03/11/22 220 Hydrocodone/Acetaminophen 5 Mg-325 Mg Tablet, 1 TAB PO Q6H PRN for PAIN-SEVERE (8-10) Prescribed by: EDISON CHAMBERLAIN on 06/17/22 233 Hydrocodone/Acetaminophen 5 Mg-325 Mg Tablet, 1 TAB PO Q4H PRN for PAIN-MODERATE (5-7) Prescribed by: RALPH DELCID on 12/11/22 220 Metoprolol Tartrate 50 Mg Tablet, 50 MG PO BID Prescribed by: FELECIA FORTUNE on 07/24/15 0841 Ondansetron 4 Mg Tab.rapdis, 4 MG PO Q6H PRN for NAUSEA/VOMITING Prescribed by: EDISON CHAMBERLAIN on 12/03/21 215 Ondansetron 4 Mg Tab.rapdis, 4 MG SL Q4H PRN for NAUSEA/VOMITING Prescribed by: RALPH DELCID on 02/15/23 041 Oxymetazoline HCl 0.05 % [place], 2 SPRAY NS QID PRN for nasal congestion Prescribed by: Radha mayo on 06/10/22 205 Sulfamethoxazole/Trimethoprim 1 Each Tablet, 1 EACH PO BID Prescribed by: VINITA RICHARD on 01/14/23 0131 Tramadol HCl 50 Mg Tablet, 50 MG PO Q6H PRN for PAIN BREAKTROUGH Prescribed by: RALPH DELCID on 02/15/23 0411 Past Medical/Social/Family Hx Patient Social History Tobacco Use?: No Use of E-Cig and/or Vaping dev: No Substance type: Amphetamines, Methamphetamine Substance frequency: Rarely Alcohol Use?: No Pt stated abuse/neglect: No Immunizations Up To Date Influenza Vaccine Up-to-Date: Yes; Up-to-Date First/Initial COVID19 Vaccinat: Pfizer Second COVID19 Vaccination [place]: Pfizer Tetanus Booster (TDap): Less Than 5 Years Hepatitis A: No Hepatitis B: No TB Skin Test: None Date of Pneumonia Vaccine: Sep 09, 2018 Current Status Advance Directives: No Communicates: Verbally Primary Language: Martiniquais Preferred Spoken Language: Martiniquais Is interpretation needed?: No Sensory deficits: Vision impairment, Hearing impairment, Speech impairment Implanted or Applied Medical D: Implantable cardioverter Family Medical History Family Hx: SOCIAL HISTORY: -OCCASIONAL ETOH -HX OF IV METH USE, CLAIMS NO USE SINCE 2015; UDS + FOR METHAMPHETAMINES 12/16/22 -QUIT SMOKING SEVERAL YEARS AGO PT HAS HISTORY OF EXTENSIVE METH USE, WITH HX OF V-FIB AND CARDIAC ARREST, CAUSING ANOXIC BRAIN INJURY. SHE HAS HAD A DEFIBRILLATOR IN PLACE SINCE AGE 24. Review of Systems Constitutional: other (c/o headache) Focused Exam Height, Weight, BMI Height: 5'3.00" Weight: 234lbs. 0oz. 106.599083tb; 44.44 BMI Method:Stated Exam Exam Patient acknowledged, consented, and participated in this virtual visit which was conducted using real time audio/video Vital Signs Date Time Temp Pulse Resp B/P (MAP) Pulse Ox O2 Delivery O2 Flow Rate FiO2 02/27/23 10:06 92 NIV Bilevel 30.00 02/27/23 09:40 94 NIV Bilevel 40.00 02/27/23 09:26 36.0 74 24 163/122 (136) 98 NIV Bilevel 50.00 02/27/23 09:22 36.3 83 100 02/27/23 09:00 50.00 02/27/23 08:48 83 28 100 70.00 02/27/23 07:51 36.3 72 22 143/99 98 NIV Bilevel 70.00 02/27/23 04:55 NIV Bilevel 70 02/27/23 04:45 36 100 70.00 02/27/23 04:28 Nasal Cannula 2.00 02/27/23 04:27 36.3 101 34 160/149 (153) 84 Room Air I & O 02/27/23 07:00 Intake Total 50 ml Balance 50 ml Height & Weight Height: 5'3.00" Weight: 234lbs. 0oz. 106.818070ib; 44.44 BMI Method:Stated General Appearance: No Apparent Distress, Anxious, Moderate Distress, Obese, Other (ANXIOUS, HYPERVENTILATING, DYSPNEIC) Respiratory: Lungs Clear, Other (DYSPNEIC, TACHYPNEIC, DECREASED AERATION IN LEFT > RIGHT LUNGS) Cardiovascular: Regular Rate, Rhythm, No JVD, Tachycardia (110'S) Capillary Refill: Less Than 3 Seconds Gastrointestinal: normal bowel sounds, non tender, soft Extremity: Normal Capillary Refill, Normal Inspection, Normal Range of Motion, Non Tender, No Calf Tenderness, No Pedal Edema Neurologic/Psychiatric: Alert, No Motor/Sensory Deficits, Other (ANXIOUS. MENTATION IS PT'S NORMAL BASELINE D/T PRIOR ANOXIC BRAIN--WITH SOME MEMORY IMPAIRMENT, GAIT DISTURBANCE, AND DECREASED MENTAL CAPACITY. ) Results Lab Laboratory Tests 02/27/23 04:40 Assessment/Plan Assessment/Plan Cardiology to see re: AICD CHF-given IV Lasix in ED had 1.5 U HTN, will continue present BP meds Critical Care: Critically Ill Patient Time spent with patient (mins): 30 EROS TAYLOR MD Feb 27, 2023 10:22
[2023-02-27] MEDS: RT-ALBUTEROL HFA 8.5 GM INHALER IH SCH ×2 (14:32→22:23)
--- NOTE | 2023-02-27 16:35 | Consultation-Cardiology ---
HPI-Cardiology Cardiology Consultation: Date of Consultation 02/27/23 Time Seen by a Provider: 14:20 Date of Admission Attending Physician Brown Fonseca Aprn Admitting Physician Admitting Physician: Shawna Gray DO Attending Physician: Shawna Gray DO Consulting Physician EDITH ZAMORA MD, MA, FACP, FACC, FSCAI, CCDS Physician requesting consult: Dr Gray Primary manager fashion: Dr Patterson HPI: Chief Complaint: Shortness of breath 32 yo woman with a h/o nonischemic cm who was admitted this morning with in creasing shortness of breath that has been present for several days. Shortness of breath is present with exertion and upon lying flat. She does not report cp or palp or syncope or significant leg swelling. No n/v/d Review of Systems-Cardiology Review of Systems Constitutional: tiredness Eyes: No vision change Ears/Nose/Throat: No ear discharge, No nasal drainage, No recent hearing loss Respiratory: As described under HPI Cardiovascular: As described under HPI Gastrointestinal: As described under HPI Genitourinary: No dysuria, No hematuria, No urine frequency changes Musculoskeletal: No back pain, No joint pain Skin: No rash, No ulcerations Psychiatric/Neurological: No seizure, No focal weakness Hematologic: No bleeding abnormalities FWS-Lrauao-Islsat Hx Patient Social History Former smoker/When Quit: Jan 23, 2015 2nd Hand Smoke Exposure: No Alcohol Use?: No Substance type: Amphetamines, Methamphetamine Pt feels they are or have been: No Immunizations Up To Date Tetanus Booster (TDap): Unknown Date of Pneumonia Vaccine: Sep 09, 2018 Date of Influenza Vaccine: Sep 08, 2022 Past Medical History PMH As described under Assessment. Family Medical History Family Medical History: She does not report fam h/o premature CAD or SCD Family History: Patient reports no known family medical history. Allergies and Home Medications Allergies Coded Allergies: JIA Inhibitors (Verified Allergy, Severe, 05/22/19) ARB-Angiotensin Receptor Antagonist (Verified Allergy, Severe, 05/22/19) amoxicillin (Verified Allergy, Unknown, 05/28/21) baclofen (Unverified Allergy, Unknown, 05/22/19) ON H&P clavulanic acid (Verified Allergy, Unknown, 05/28/21) phenazopyridine (Unverified Allergy, Unknown, 05/22/19) ON H&P Patient Home Medication List Home Medication List Reviewed: Yes Albuterol Sulfate (Rx-Proair) 8 Gm Hfa.aer.ad, 2 PUFF INH Q6H PRN for SHORTNESS OF BREATH, (Reported) Entered as Reported by: BROWN SCHULER on 03/21/15 1434 Amlodipine Besylate (Amlodipine Besylate) 10 Mg Tablet, 10 MG PO DAILY, (Reported) Entered as Reported by: TUNG HELTON on 07/23/15 0737 Apixaban (Eliquis) 5 Mg Tablet, 5 MG PO BID Prescribed by: RALPH DELCID on 11/01/18 1856 Azithromycin (Azithromycin) 250 Mg Tablet, 250 MG PO DAILY Prescribed by: Radha mayo on 06/10/22 205 Biotin (Biotin) 5,000 Mcg Tab.rapdis, (Reported) Entered as Reported by: MIKY CAMPBELL on 05/22/19 211 Clindamycin HCl (Clindamycin HCl) 300 Mg Capsule, 300 MG PO QID Prescribed by: KEYA LENTZ on 03/11/22 2203 Clindamycin HCl (Clindamycin HCl) 300 Mg Capsule, 300 MG PO TID Prescribed by: EDISON CHAMBERLAIN on 06/17/22 2334 Cyclobenzaprine HCl (Cyclobenzaprine HCl) 10 Mg Tablet, 10 MG PO BID PRN for chest wall pain/muscle spasm Prescribed by: EDISON CHAMBERLAIN on 12/24/21 0206 Diphenoxylate HCl/Atropine (Lomotil 2.5-0.025 mg Tablet) 1 Each Tablet, 1 EACH PO BID PRN for DIARRHEA Prescribed by: ORESTES VELASCO on 11/29/19 2309 Epinephrine (Epinephrine) 0.3 Mg/0.3 Ml Auto.injct, 0.3 MG IJ PRN Prescribed by: MOUNIKA GARCIA on 05/28/21 0932 Famotidine (Famotidine) 20 Mg Tablet, (Reported) Entered as Reported by: TALISHA CELIS on 08/05/18 181 Gabapentin (Gabapentin) 100 Mg Capsule, 100 MG PO Q8H PRN for burning pain/neuropathy thumb Prescribed by: EDISON CHAMBERLAIN on 04/14/22 0337 Hydrocodone/Acetaminophen (Hydrocodone-Acetamin 5-325 mg) 1 Each Tablet, 1 TAB PO Q4H PRN for PAIN-MODERATE (5-7) Prescribed by: KEYA LENTZ on 03/11/22 220 Hydrocodone/Acetaminophen (Hydrocodone-Acetamin 5-325 mg) 5 Mg-325 Mg Tablet, 1 TAB PO Q6H PRN for PAIN-SEVERE (8-10) Prescribed by: EDISON CHAMBERLAIN on 06/17/22 2335 Hydrocodone/Acetaminophen (Hydrocodone-Acetamin 5-325 mg) 5 Mg-325 Mg Tablet, 1 TAB PO Q4H PRN for PAIN-MODERATE (5-7) Prescribed by: RALPH DELCID on 12/11/22 220 Metoprolol Tartrate (Metoprolol Tartrate) 50 Mg Tablet, 50 MG PO BID Prescribed by: FELECIA PATTERSON on 07/24/15 0841 Ondansetron (Ondansetron Odt) 4 Mg Tab.rapdis, 4 MG PO Q6H PRN for XAVIER SEA/VOMITING Prescribed by: EDISON CHAMBERLAIN on 12/03/21 215 Ondansetron (Ondansetron Odt) 4 Mg Tab.rapdis, 4 MG SL Q4H PRN for NAUSEA/VOMITING Prescribed by: RALPH DELCID on 02/15/23 0410 Oxymetazoline HCl (Afrin) 0.05 % [place], 2 SPRAY NS QID PRN for nasal congestion Prescribed by: Radha mayo on 06/10/222056 Ropinirole HCl (Ropinirole HCl) 0.5 Mg Tablet, (Reported) Entered as Reported by: TALISHA CELIS on 08/05/181809 Sacubitril/Valsartan (Entresto 24 mg-26 mg Tablet) 1 Each Tablet, (Reported) Entered as Reported by: TALISHA CELIS on 08/05/181809 Sulfamethoxazole/Trimethoprim (Bactrim Ds Tablet) 1 Each Tablet, 1 EACH PO BID Prescribed by: VINITA RICHARD on 01/14/23 0131 Tramadol HCl (Tramadol HCl) 50 Mg Tablet, 50 MG PO Q6H PRN for PAIN BREAKTROUGH Prescribed by: RALPH DELCID on 02/15/23 0411 [Clonidine Hydrochloride .2 Mg ] , (Reported) Entered as Reported by: MIKYLoree CAMPBELL on 05/22/192115 [Meloxicam 15 Mg Tabs] , (Reported) Entered as Reported by: MIKY CAMPBELL on 05/22/192115 [Metoprolol Tartrate 100 Mg Tab] , (Reported) Entered as Reported by: MIKYLoree CAMPBELL on 05/22/191929 [Olanzapine 10 Mg Tabs] , (Reported) Entered as Reported by: MIKY CAMPBELL on 05/22/192115 [Oxcarbazepine 300 Mg Tabs] , (Reported) Entered as Reported by: MIKY CAMPBELL on 05/22/192115 Physical Exam-Cardiology Physical Exam Vital Signs/I&O 02/27/23 02/27/23 02/27/23 02/27/23 04:27 04:28 04:45 04:55 Temp 36.3 Pulse 101 Resp 34 36 B/P (MAP) 160/149 (153) Pulse Ox 84 100 O2 Delivery Room Air Nasal Cannula NIV Bilevel O2 Flow Rate 2.00 70.00 FiO2 70 02/27/23 02/27/23 02/27/23 02/27/23 07:51 08:48 09:00 09:22 Temp 36.3 36.3 Pulse 72 83 83 Resp 22 28 B/P (MAP) 143/99 Pulse Ox 98 100 100 O2 Delivery NIV Bilevel O2 Flow Rate 70.00 70.00 50.00 02/27/23 02/27/23 02/27/23 02/27/23 09:26 09:30 09:40 10:00 Temp 36.0 Pulse 74 75 74 Resp 24 B/P (MAP) 163/122 (136) 146/96 (114) Pulse Ox 98 94 92 O2 Delivery NIV Bilevel NIV Bilevel NIV Bilevel O2 Flow Rate 50.00 40.00 40.00 02/27/23 02/27/23 02/27/23 02/27/23 10:06 10:37 10:41 11:00 Pulse 86 B/P (MAP) 147/107 (120) Pulse Ox 92 94 94 O2 Delivery NIV Bilevel Nasal Cannula Nasal Cannula Nasal Cannula O2 Flow Rate 30.00 2.00 2.00 2.00 02/27/23 02/27/23 02/27/23 02/27/23 11:55 12:00 12:00 12:57 Temp 36.6 Pulse 79 80 B/P (MAP) 141/92 (114) Pulse Ox 95 96 O2 Delivery Nasal Cannula Nasal Cannula O2 Flow Rate 2.00 2.00 02/27/23 02/27/23 02/27/23 02/27/23 13:00 14:00 14:36 15:08 Pulse 81 88 B/P (MAP) 146/95 (117) 156/117 (125) Pulse Ox 92 90 97 95 O2 Delivery Nasal Cannula Nasal Cannula Nasal Cannula Nasal Cannula O2 Flow Rate 2.00 2.00 2.00 2.00 02/27/23 02/27/23 15:30 16:00 Temp 36.0 Pulse 96 B/P (MAP) 139/106 (114) Pulse Ox 96 O2 Delivery Nasal Cannula O2 Flow Rate 2.00 Capillary Refill : Less Than 3 Seconds Constitutional: AAO x 3, well-developed, well-nourished HEENT: EOMI, hearing is well preserved; No xanthelasmas are seen Neck: carotid pulses are 2 + bilaterally, with good upstrokes Respiratory: No accessory muscle use; chest expansion is symmetric, chest is bilaterally symmetric, other (fair to good, bilateral air entry; basal rales) Cardiovascular: regular rate-rhythm, S1 and S2, systolic murmur (soft HARPREET at card base) Gastrointestinal: No tender; soft, audible bowel sounds Extremities: No clubbing, No cyanosis, No significant edema Neurologic/Psychiatric: oriented x 3, other (moves all limbs equally) Skin: normal color, warm/dry; No rash on exposed areas, No ulcerations on exposed areas Data Review Labs Laboratory Tests 02/27/23 04:40: White Blood Count 10.5, Red Blood Count 4.64, Hemoglobin 13.4, Hematocrit 41, Mean Corpuscular Volume 88, Mean Corpuscular Hemoglobin 29, Mean Corpuscular Hemoglobin Concent 33, Red Cell Distribution Width 14.4, Platelet Count 371, Mean Platelet Volume 8.9L, Immature Granulocyte % (Auto) 0, Neutrophils (%) (Auto) 49, Lymphocytes (%) (Auto) 44, Monocytes (%) (Auto) 5, Eosinophils (%) (Auto) 1, Basophils (%) (Auto) 1, Neutrophils # (Auto) 5.1, Lymphocytes # (Auto) 4.7H, Monocytes # (Auto) 0.5, Eosinophils # (Auto) 0.1, Basophils # (Auto) 0.1, Immature Granulocyte # (Auto) 0.0, Erythrocyte Sedimentation Rate 36H, Prothrombin Time 12.5, INR Comment 0.9, Activated Partial Thromboplast Time 29, D-Dimer 0.60H, Sodium Level 142, Potassium Level 3.6, Chloride Level 107, Carbon Dioxide Level 23, Anion Gap 12, Blood Urea Nitrogen 23H, Creatinine 2.77H, Estimat Glomerular Filtration Rate 22, BUN/Creatinine Ratio 8, Glucose Level 108H, Calcium Level 8.8, Corrected Calcium 9.3, Magnesium Level 2.1, Total Bilirubin 0.2, Aspartate Amino Transf (AST/SGOT) 33, Alanine Aminotransferase (ALT/SGPT) 28, Alkaline Phosphatase 73, Total Creatine Kinase 165, Creatine Kinase MB 1.7, Myoglobin 92.4H, Troponin I < 0.028, C-Reactive Protein High Sensitivity 1.16H, B-Type Natriuretic Peptide 541.4H, Total Protein 6.2L, Albumin 3.4, Amylase Level 126H, Lipase 24, Serum Test, Qualitative NEGATIVE, Serum Alcohol < 10, Influenza Type A (RT-PCR) Not Detected, Influenza Type B (RT-PCR) Not Detected, SARS-CoV-2 RNA (RT-PCR) Not Detected 02/27/23 04:54: Blood Gas Puncture Site R RAD, Blood Gas Patient Temperature 36.3, Arterial Blood pH 7.36L, Arterial Blood Partial Pressure CO2 44, Arterial Blood Partial Pressure O2 209H, Arterial Blood HCO3 24, Arterial Blood Total CO2 25.6, Arterial Blood Oxygen Saturation 100, Arterial Blood Base Excess -0.7, Alfonso Test YES-POS, Blood Gas Ventilator Setting NO, Blood Gas Inspired Oxygen 70% 02/27/23 05:40: Urine Color YELLOW, Urine Clarity CLEAR, Urine pH 6.5, Urine Specific [place] 1.020, Urine Protein 3+H, Urine Glucose (UA) NEGATIVE, Urine Ketones NEGATIVE, Urine Nitrite NEGATIVE, Urine Bilirubin NEGATIVE, Urine Urobilinogen 0.2, Urine Leukocyte Esterase NEGATIVE, Urine RBC (Auto) 1+H, Urine RBC 0-2, Urine WBC NONE, Urine Squamous Epithelial Cells 0-2, Urine Crystals NONE, Urine Bacteria NEGATIVE, Urine Casts NONE, Urine Mucus NEGATIVE, Urine Culture Indicated NO, Urine Opiates Screen NEGATIVE, Urine Oxycodone Screen NEGATIVE, Urine Methadone Screen NEGATIVE, Urine Propoxyphene Screen NEGATIVE, Urine Barbiturates Screen NEGATIVE, Ur Tricyclic Antidepressants Screen NEGATIVE, Urine Phencyclidine Screen NEGATIVE, Urine Amphetamines Screen NEGATIVE, Urine Methamphetamines Screen NEGATIVE, Urine Benzodiazepines Screen NEGATIVE, Urine Cocaine Screen NEGATIVE, Urine Cannabinoids Screen NEGATIVE Laboratory Tests 02/27/23 04:40 A/P-Cardiology Assessment/Admission Diagnosis Acute systolic CHF Nonischemic cardiomyopathy. Maintained on beta satnam and Entresto, - 2D echo in October 2021: ejection fraction 30 to 35%, hypokinesia at the apex and lateral wall, mild to moderate tricuspid regurgitation, PA pressure 30 to 35 mmHg. - Echo on 02/27/23: LVEF 40-45%,mild enlargement of both atria, mod MR, PASP 40-45 mmHg History of mid left atrial thrombus on an echo at [facility]. Date unknown. She is maintained on Eliquis H/o ICD implantation and repositioning done in August 24, 2015. Another ICD revision with new pace/sense lead replacement done by Dr. Castanon on May 10, 2019. Then another repositioning of the lead and then had replacement of the lead. ICD interrogation by Dr Patterson on December 01, 2022: good sensing and capture activity. Battery longevity 17 months, SVC lead malfunction reported. Referred to Dr Devries of the EP service. Hypertension, difficult to control, on multiple medication. 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 Discussion and Recomendations * Diuretics iv * Continue anticoag * Tele * Echo (done and reported above) * Monitor labs * I reviewed her CV issues and our treatment plan with her Clinical Quality Measures AMI/AHF: ASA po Prior to arrival: EDITH Medrano MD FACP FAC CCDS Feb 27, 2023 16:35
[2023-02-27] MEDS: FUROSEMIDE 40 MG/4 ML INJ (LASIX) IV SCH (18:56)
[2023-02-27] MEDS: APIXABAN 5 MG (ELIQUIS) TABLET PO SCH (19:56)
[2023-02-27] MEDS: SENNOSIDES 8.6 MG (SENOKOT) TAB PO SCH (19:56)
[2023-02-27] MEDS: DOCUSATE SODIUM 100 MG (COLACE) CAP PO SCH (19:57)
[2023-02-28] MEDS: RT-ALBUTEROL HFA 8.5 GM INHALER IH SCH ×2 (03:09→10:12)
[2023-02-28 03:44] LABS: BASOPHILS % (AUTO) 0 % (0-10); EOSINOPHILS % (AUTO) 0 % (0-10); HEMATOCRIT 38 % (35-52); HEMOGLOBIN 12.3 g/dL (11.5-16.0); LYMPHOCYTES # (AUTO) 1.7 10^3/uL (1.0-4.0); LYMPHOCYTES % (AUTO) 14 % (12-44); MEAN CORPUSCULAR HEMOGLOBIN 29 pg (25-34); MEAN CORPUSCULAR HGB CONC 32 g/dL (32-36); MEAN CORPUSCULAR VOLUME 89 fL (80-99); MEAN PLATELET VOLUME 9.4 fL (9.0-12.2); MONOCYTES # (AUTO) 0.7 10^3/uL (0.0-1.0); MONOCYTES % (AUTO) 6 % (0-12); NEUTROPHILS # (AUTO) 9.3 10^3/uL (1.8-7.8); NEUTROPHILS % (AUTO) 79 % (42-75); PLATELET COUNT 349 10^3/uL (130-400); WHITE BLOOD COUNT 11.8 10^3/uL (4.3-11.0)
[2023-02-28 04:14] LABS: BILIRUBIN,TOTAL 0.1 MG/DL (0.1-1.0); CALCIUM 8.5 MG/DL (8.5-10.1); CREATININE SERUM 3.08 MG/DL (0.60-1.30); PHOSPHORUS 3.7 MG/DL (2.3-4.7); POTASSIUM 3.9 MMOL/L (3.6-5.0); TOTAL PROTEIN 5.9 GM/DL (6.4-8.2)
[2023-02-28] MEDS: FUROSEMIDE 40 MG/4 ML INJ (LASIX) IV SCH (05:41)
[2023-02-28] MEDS ORDERED: MAGNESIUM 1 GM/100 ML IVPB 100 ML IV SCH (06:00)
[2023-02-28] MEDS ORDERED: KCL 20 MEQ TAB (K-DUR) PO SCH (06:00)
[2023-02-28] MEDS ORDERED: POTASSIUM CL 10MEQ/50ML IVPB 50 ML IV SCH (06:00)
--- NOTE | 2023-02-28 07:00 | Progress Note - Hospitalist ---
Subjective HPI/CC On Admission Date Seen by Provider: Feb 28, 2023 Time Seen by Provider: 10:00 CC: Dyspnea HPI: This is a 32yoAAF who has a h/o cardiac arrest 9 years ago who presented to the ER with dyspnea and edema. She reports it was gradual in progression but she worsened to the point of not being able to breathe. She was found to have AECHF so Cardiology was consulted and ECHO was ordered. No pain reported. Labs and meds were reviewed. Focused Exam Time of Focused Exam: 05:00 Objective Exam Vital Signs Vital Signs Date Time Temp Pulse Resp B/P (MAP) Pulse Ox O2 Delivery O2 Flow Rate FiO2 02/28/23 09:00 96 152/105 (121) 94 Room Air 02/28/23 07:26 35.9 02/28/23 07:14 0.00 02/27/23 09:26 24 02/27/23 04:55 70 Capillary Refill : Less Than 3 Seconds Results/Procedures Lab Laboratory Tests 02/28/23 03:10 Patient resulted labs reviewed. Assessment/Plan Critical Care Critically Ill Patient Clinical Quality Measures AMI/AHF: ASA po Prior to arrival: MEGGAN Edwards DO Feb 28, 2023 07:00
--- NOTE | 2023-02-28 08:42 | Diagnostic Imaging Report ---
INDICATION: Congestive heart failure. COMPARISON: 02/27/2023. FINDINGS: There is mild cardiomegaly. The lungs are clear. There is no pleural effusion or pneumothorax. The mediastinum is unremarkable. There is no evidence of congestive failure. A pacemaker overlies the left hemithorax. IMPRESSION: No acute cardiopulmonary abnormality. Cardiomegaly. Dictated by: Dictated on workstation # [id number]
[2023-02-28] MEDS: APIXABAN 5 MG (ELIQUIS) TABLET PO SCH (08:47)
[2023-02-28] MEDS: ACETAMINOPHEN 325 MG TABLET PO PRN (08:48)
[2023-02-28] MEDS: DOCUSATE SODIUM 100 MG (COLACE) CAP PO SCH (08:48)
[2023-02-28] MEDS: SENNOSIDES 8.6 MG (SENOKOT) TAB PO SCH (08:48)
[2023-02-28] MEDS ORDERED: meTOprolol TARTRATE 50 MG (LOPRESSOR) TAB PO SCH (09:00)
[2023-02-28] MEDS ORDERED: ASPIRIN 81 MG CHEW (CHILDREN'S ASA) PO SCH (09:00)
[2023-02-28] MEDS ORDERED: amLODIPine 10 MG (NORVASC) TAB PO SCH (09:00)
--- NOTE | 2023-02-28 09:38 | Cardiology Progress Note ---
Subjective Date Seen by Provider: Feb 28, 2023 Time Seen by Provider: 08:50 Subjective/Events-last exam Patient sitting up in bed, reports dyspnea is improving. Denies any chest pain Focused Exam Time of Focused Exam: 05:00 Objective-Cardiology Exam Last Set of Vital Signs Vital Signs 02/27/23 02/27/23 02/28/23 02/28/23 02/28/23 04:55 09:26 07:26 09:00 10:12 Temp 35.9 Pulse 96 Resp 24 B/P (MAP) 152/105 (121) Pulse Ox 98 O2 Delivery Room Air O2 Flow Rate 0.00 FiO2 70 I&O Intake and Output 02/28/23 00:00 Intake Total 1070 ml Output Total 2150 ml Balance -1080 ml Intake Oral 1020 ml IV Total 50 ml Output Urine Total 2150 ml # Bowel Movements 1 Daily Weight Change No General: Alert, Oriented X3 Lungs: Other (decreased breath sounds bibasilarly) Heart: Regular Rate, Normal S1, Normal S2 Abdomen: Soft, No Tenderness Extremities: Other (trace edema BLE) Skin: No Significant Lesion Neuro: Normal Speech, Cranial Nerves 3-12 NL Psych/Mental Status: Mental Status NL, Mood NL Results Lab Laboratory Tests 02/28/23 03:10 A/P-Cardiology Admission Diagnosis Dyspnea Acute on chronic CHF HTN CKD Assessment/Plan Acute on chronic systolic CHF Nonischemic cardiomyopathy. Maintained on beta satnam and Entresto as outpatient - 2D echo in October 2021: ejection fraction 30 to 35%, hypokinesia at the apex and lateral wall, mild to moderate tricuspid regurgitation, PA pressure 30 to 35 mmHg. - Echo on 02/27/23: LVEF 40-45%,mild enlargement of both atria, mod MR, PASP 40-45 mmHg Continue to diruese. I will restart beta satnam. History of mid left atrial thrombus on an [place] at [facility] [place] Date unknown. She is maintained on Eliquis H/o ICD implantation and repositioning done in August 24, 2015. Another ICD revision with new pace/sense lead replacement done by Dr. Castanon on May 10, 2019. Then another repositioning of the lead and then had replacement of the lead. ICD interrogation by Dr Patterson on December 01, 2022: good sensing and capture activity. Battery longevity 17 months, SVC lead malfunction reported. Referred to Dr Devries of the EP service. Hypertension, difficult to control, restart home amlodipine and Lopressor and continue to monitor. 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 History of illicit drug use, drug sceen negative Supervisory-Addendum Brief Supervisory Addendum Participated in pt care: history, MDM, physical Personally performed: exam, history, MDM Care discussed with: KEYA Results interpretation: Verified all documentation Notes: Patient was seen and evaluated with Viri, examination performed, management plan was discussed, agree with the current scribed note, I made few changes to the note using Italic font Patient was seen at bedside laying down comfortably, feeling better No new complaint, breathing is better Discussed with the patient and her mom and with Dr. Gray, brandy for discharge We will discontinue Entresto due to renal failure Started Lasix 20 mg daily and potassium 10 mEq daily Arrange for follow-up as an outpatient VIRI MULTANI Feb 28, 2023 09:38 FELECIA PATTERSON MD Feb 28, 2023 10:55
[2023-02-28] MEDS ORDERED: POTA10TA PO (10:40)
[2023-02-28] MEDS ORDERED: FURO-125 PO (10:40)
== END 2023-02-28 11:10 | disposition home or self-care (01) | DRG 291 ==
LOC: EDUNIT# 04:25 → ER 04:26 → ICU 08:40
PROVIDERS: ADMIT Internal Medicine; ATTEND Internal Medicine
PROC: 5A09357 Assistance with Respiratory Ventilation, Less than 24 Consecutive Hours, Continuous Positive Airway Pressure (ICD-10-PCS; principal; 2023-02-27)
DX: I13.0 Hypertensive heart and chronic kidney disease with heart failure and stage 1 through stage 4 chronic kidney disease, or unspecified chronic kidney disease (principal); I50.23 Acute on chronic systolic (congestive) heart failure; J96.00 Acute respiratory failure, unspecified whether with hypoxia or hypercapnia; N18.4 Chronic kidney disease, stage 4 (severe); T82.120D Displacement of cardiac electrode, subsequent encounter; I42.9 Cardiomyopathy, unspecified; I08.1 Rheumatic disorders of both mitral and tricuspid valves; K21.9 Gastro-esophageal reflux disease without esophagitis; R26.9 Unspecified abnormalities of gait and mobility; Z20.822 Contact with and (suspected) exposure to COVID-19; F41.9 Anxiety disorder, unspecified; F31.9 Bipolar disorder, unspecified; F09 Unspecified mental disorder due to known physiological condition; H54.7 Unspecified visual loss; H91.90 Unspecified hearing loss, unspecified ear; R47.9 Unspecified speech disturbances; Z87.891 Personal history of nicotine dependence; Z86.16 Personal history of COVID-19; Z91.09 Other allergy status, other than to drugs and biological substances; Z79.01 Long term (current) use of anticoagulants; Z79.899 Other long term (current) drug therapy
CPT/HCPCS: 36415; 51702; 71045; 80053; 80306; 80320; 81000; 82150; 82550; 82553; 82805; 83690; 83735; 83874; 83880; 84100; 84484; 84703; 85025; 85379; 85610; 85652; 85730; 86141; 87081; 87636; 93005; 93041; 93306; 94640; 94660

== ENCOUNTER 2023-03-01 00:46 | Emergency (ER) | payer MEDICARE, MEDICAID ==
[~2023-03-01] VITALS: Ht 150 cm; Wt 99.5 kg
[~2023-03-01 00:46] MED LIST changes: +FURO-125 PO; +POTA10TA PO
[2023-03-01] MEDS ORDERED: ASPIRIN 81 MG CHEW (CHILDREN'S ASA) PO ONE (01:30)
[2023-03-01] MEDS ORDERED: NITROGLYCERIN 2% OINT 1 GM UNIT DOSE PACKET TOP ONE (01:30)
[2023-03-01 02:29] LABS: BASOPHILS % (AUTO) 0 % (0-10); HEMOGLOBIN 12.8 g/dL (11.5-16.0); MEAN CORPUSCULAR HEMOGLOBIN 29 pg (25-34); MEAN CORPUSCULAR VOLUME 89 fL (80-99); WHITE BLOOD COUNT 13.8 10^3/uL (4.3-11.0)
[2023-03-01 02:30] LABS: BASOPHILS # (AUTO) 0.1 10^3/uL (0.0-0.1); EOSINOPHILS % (AUTO) 0 % (0-10); HEMATOCRIT 39 % (35-52); LYMPHOCYTES # (AUTO) 6.2 10^3/uL (1.0-4.0); LYMPHOCYTES % (AUTO) 45 % (12-44); MEAN CORPUSCULAR HGB CONC 33 g/dL (32-36); MONOCYTES # (AUTO) 1.1 10^3/uL (0.0-1.0); MONOCYTES % (AUTO) 8 % (0-12); NEUTROPHILS # (AUTO) 6.4 10^3/uL (1.8-7.8); NEUTROPHILS % (AUTO) 46 % (42-75); PLATELET COUNT 313 10^3/uL (130-400)
[2023-03-01 02:34] LABS: ALANINE AMINOTRANSFERASE 25 U/L (0-55); ALBUMIN 3.3 GM/DL (3.2-4.5); ALKALINE PHOSPHATASE 58 U/L (40-136); BILIRUBIN,TOTAL 0.1 MG/DL (0.1-1.0); BUN/CREATININE RATIO 13; CALCIUM 8.4 MG/DL (8.5-10.1); CARBON DIOXIDE 19 MMOL/L (21-32); CHLORIDE 108 MMOL/L (98-107); CREATINE KINASE 93 U/L (29-168); CREATININE SERUM 2.65 MG/DL (0.60-1.30); GFR ESTIMATED 24; GLUCOSE 97 MG/DL (70-105); POTASSIUM 3.9 MMOL/L (3.6-5.0); SODIUM 141 MMOL/L (135-145); TOTAL PROTEIN 6.1 GM/DL (6.4-8.2)
[2023-03-01 02:41] LABS: CREATINE KINASE MB 1.8 NG/ML (<6.6)
--- NOTE | 2023-03-01 02:42 | ED Cardiac General ---
History of Present Illness General Chief Complaint: Chest Pain Stated Complaint: CHEST PAIN/NAUSEA/DIZZY Nursing Triage Note: PT AMB TO ED BY POV WITH MOTHER WITH C/O SUDDEN ONSET SOB, CHEST HEAVINESS, AND [place] BEGINNING AROUND 2330 WHILE PT WAS SITTING IN A CHAIR. PT WAS DC FROM YESTERDAY. Source: patient, old records, mother History of Present Illness Date Seen by Provider: Mar 01, 2023 Allergies and Home Medications Allergies Coded Allergies: JIA Inhibitors (Verified Allergy, Severe, 05/22/19) ARB-Angiotensin Receptor Antagonist (Verified Allergy, Severe, 05/22/19) amoxicillin (Verified Allergy, Unknown, 05/28/21) baclofen (Unverified Allergy, Unknown, 05/22/19) ON H&P clavulanic acid (Verified Allergy, Unknown, 05/28/21) phenazopyridine (Unverified Allergy, Unknown, 05/22/19) ON H&P Patient Home Medication List Albuterol Sulfate (Rx-Proair) 8 Gm Hfa.aer.ad, 2 PUFF INH Q6H PRN for SHORTNESS OF BREATH, (Reported) Entered as Reported by: BROWN SCHULER on 03/21/15 1434 Amlodipine Besylate (Amlodipine Besylate) 10 Mg Tablet, 10 MG PO DAILY, (Reported) Entered as Reported by: TUNG HELTON on 07/23/15 0737 Apixaban (Eliquis) 5 Mg Tablet, 5 MG PO BID Prescribed by: RALPH DELCID on 11/01/18 1856 Biotin (Biotin) 5,000 Mcg Tab.rapdis, (Reported) Entered as Reported by: MIKY CAMPEBLL on 05/22/19 2117 Cyclobenzaprine HCl (Cyclobenzaprine HCl) 10 Mg Tablet, 10 MG PO BID PRN for chest wall pain/muscle spasm Prescribed by: EDISON BROWNRT on 12/24/21 0206 Famotidine (Famotidine) 20 Mg Tablet, (Reported) Entered as Reported by: TALISHA CELIS on 08/05/18 1811 Furosemide (Lasix) 20 Mg Tablet, 20 MG PO DAILY Prescribed by: FELECIA OFRTUNE on 02/28/23 1040 Gabapentin (Gabapentin) 100 Mg Capsule, 100 MG PO Q8H PRN for burning pain/neuropathy thumb Prescribed by: EDISON CHAMBERLAIN on 04/14/22 0337 Metoprolol Tartrate (Metoprolol Tartrate) 50 Mg Tablet, 50 MG PO BID Prescribed by: FELECIA FORTUNE on 07/24/15 0841 Potassium Chloride (K-Tab ER) 10 Meq Tablet.er, 10 MEQ PO DAILY Prescribed by: FELECIA FORTUNE on 02/28/23 1040 Ropinirole HCl (Ropinirole HCl) 0.5 Mg Tablet, (Reported) Entered as Reported by: TALISHA CELIS on 08/05/18 181 [Clonidine Hydrochloride .2 Mg ] , (Reported) Entered as Reported by: MIKY CAMPBELL on 05/22/192115 [Meloxicam 15 Mg Tabs] , (Reported) Entered as Reported by: MIKY CAMPBELL on 05/22/192115 [Metoprolol Tartrate 100 Mg Tab] , (Reported) Entered as Reported by: MIKY CAMPBELL on 05/22/191929 [Olanzapine 10 Mg Tabs] , (Reported) Entered as Reported by: MIKY CAMPBELL on 05/22/192115 [Oxcarbazepine 300 Mg Tabs] , (Reported) Entered as Reported by: MIKY CAMPBELL on 05/22/192115 Discontinued Medications Azithromycin (Azithromycin) 250 Mg Tablet, 250 MG PO DAILY Prescribed by: Radha mayo on 06/10/222056 Clindamycin HCl (Clindamycin HCl) 300 Mg Capsule, 300 MG PO QID Prescribed by: KEYA LENTZ on 03/11/222202 Clindamycin HCl (Clindamycin HCl) 300 Mg Capsule, 300 MG PO TID Prescribed by: EDISON CHAMBERLAIN on 06/17/22 2334 Diphenoxylate HCl/Atropine (Lomotil 2.5-0.025 mg Tablet) 1 Each Tablet, 1 EACH PO BID PRN for DIARRHEA Prescribed by: ORESTES VELASCO on 11/29/19 230 Epinephrine (Epinephrine) 0.3 Mg/0.3 Ml Auto.injct, 0.3 MG IJ PRN Prescribed by: MOUNIKA GARCIA on 05/28/21 0932 Hydrocodone/Acetaminophen (Hydrocodone-Acetamin 5-325 mg) 1 Each Tablet, 1 TAB PO Q4H PRN for PAIN-MODERATE (5-7) Prescribed by: KEYA LENTZ on 03/11/22 220 Hydrocodone/Acetaminophen (Hydrocodone-Acetamin 5-325 mg) 5 Mg-325 Mg Tablet, 1 TAB PO Q6H PRN for PAIN-SEVERE (8-10) Prescribed by: EDISON CHAMBERLAIN on 06/17/22 2335 Hydrocodone/Acetaminophen (Hydrocodone-Acetamin 5-325 mg) 5 Mg-325 Mg Tablet, 1 TAB PO Q4H PRN for PAIN-MODERATE (5-7) Prescribed by: RALPH DELCID on 12/11/22 220 Ondansetron (Ondansetron Odt) 4 Mg Tab.rapdis, 4 MG PO Q6H PRN for NAUSEA/VOMITING Prescribed by: EDISON CHAMBERLAIN on 12/03/21 215 Ondansetron (Ondansetron Odt) 4 Mg Tab.rapdis, 4 MG SL Q4H PRN for NAUSEA/VOMITING Prescribed by: RALPH DELCID on 02/15/23 041 Oxymetazoline HCl (Afrin) 0.05 % [place], 2 SPRAY NS QID PRN for nasal congestion Prescribed by: Radha mayo on 06/10/222056 Sacubitril/Valsartan (Entresto 24 mg-26 mg Tablet) 1 Each Tablet, (Reported) Entered as Reported by: TALISHA CELIS on 08/05/18 1810 Sulfamethoxazole/Trimethoprim (Bactrim Ds Tablet) 1 Each Tablet, 1 EACH PO BID Prescribed by: VINITA RICHARD on 01/14/23 0131 Tramadol HCl (Tramadol HCl) 50 Mg Tablet, 50 MG PO Q6H PRN for PAIN BREAKTROUGH Prescribed by: RALPH DELCID on 02/15/23 041 Past Ysoieim-Hykdxy-Utivaz Hx Patient Social History Tobacco Use?: No Use of E-Cig and/or Vaping dev: No Substance use?: No Alcohol Use?: No Pt feels they are or have been: No Immunizations Up To Date Tetanus Booster (TDap): Unknown PED Vaccines UTD: Yes Influenza Vaccine Up-to-Date: Yes; Up-to-Date First/Initial COVID19 Vaccinat: X3 Second COVID19 Vaccination [place]: Pfizer Third COVID19 Vaccination Date: Pfizer Seasonal Allergies Seasonal Allergies: No Past Medical History Surgery/Hospitalization HX: DEFIBRILATOR, PACEMAKER REMOVED Surgeries: Yes (PACER/DEFIB 2014; DEFIB PLACED 05/10/19. PEG TUBE- REMOVED;UTERINE ABLATION) Abdominal, Section, Defibrillator, Gallbladder, Hysterectomy, Pacemaker Respiratory: Yes (ARDS-CODED; PNEUMOTHORAX 06/2015) Pneumonia, Chronic Bronchitis Currently Using CPAP: No Currently Using BIPAP: No Cardiac: Yes (PULMONARY EDEMA/CARDIAC CAUSE-R/T ATRIAL THROMBUS; CARDIAC ARREST;V-FIB ) Cardiomyopathy, Endocarditis, Hypertension, Valvular Heart Disease Neurological: Yes (encephalopathy-hypoxia, anoxic brain injury; POOR MEMORY;SLURRED SPEECH) Reproductive Disorders: Yes (ENDOMETRIAL ABLATION) Female Reproductive Disorders: Menstrual Problems Sexually Transmitted Disease: No Genitourinary: Yes (BASELINE CREATININE BETWEEN 2 & 3) Renal Failure Gastrointestinal: Yes Gastroesophageal Reflux Musculoskeletal: Yes (GAIT DISTURBANCE) Endocrine: No (OBESITY) HEENT: No Loss of Vision: Denies Hearing Impairment: Denies Cancer: No Psychosocial: Yes (SUBSTANCE ABUSE) Anxiety, Bipolar, Depression Integumentary: No Blood Disorders: Yes (ANEMIA) Family Medical History Patient reports no known family medical history. 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 SHE HAS HAD A DEFIBRILLATOR IN PLACE SINCE AGE 24. Physical Exam Vital Signs Vital Signs - First Documented 03/01/23 01:23 O2 Flow Rate 2.00 Capillary Refill : Less Than 3 Seconds Height, Weight, BMI Height: 5'3.00" Weight: 234lbs. 0oz. 106.640881sw; 44.00 BMI Method:Stated Progress/Results/Core Measures Results/Orders Lab Results Laboratory Tests Test 03/01/23 01:40 03/01/23 04:40 03/01/23 04:57 Range/Units White Blood Count 13.8 H 4.3-11.0 10^3/uL Red Blood Count 4.44 3.80-5.11 10^6/uL Hemoglobin 12.8 11.5-16.0 g/dL Hematocrit 39 35-52 % Mean Corpuscular Volume 89 80-99 fL Mean Corpuscular Hemoglobin 29 25-34 pg Mean Corpuscular Hemoglobin Concent 33 32-36 g/dL Red Cell Distribution Width 14.9 H 10.0-14.5 % Platelet Count 313 130-400 10^3/uL Mean Platelet Volume 10.0 9.0-12.2 fL Immature Granulocyte % (Auto) 1 % Neutrophils (%) (Auto) 46 42-75 % Lymphocytes (%) (Auto) 45 H 12-44 % Monocytes (%) (Auto) 8 0-12 % Eosinophils (%) (Auto) 0 0-10 % Basophils (%) (Auto) 0 0-10 % Neutrophils # (Auto) 6.4 1.8-7.8 10^3/uL Lymphocytes # (Auto) 6.2 H 1.0-4.0 10^3/uL Monocytes # (Auto) 1.1 H 0.0-1.0 10^3/uL Eosinophils # (Auto) 0.0 0.0-0.3 10^3/uL Basophils # (Auto) 0.1 0.0-0.1 10^3/uL Immature Granulocyte # (Auto) 0.1 0.0-0.1 10^3/uL Percent Immature Platelet Fraction 5.2 0.0-7.6 % Sodium Level 141 135-145 MMOL/L Potassium Level 3.9 3.6-5.0 MMOL/L Chloride Level 108 H 98-107 MMOL/L Carbon Dioxide Level 19 L 21-32 MMOL/L Anion Gap 14 5-14 MMOL/L Blood Urea Nitrogen 35 H 7-18 MG/DL Creatinine 2.65 #H 0.60-1.30 MG/DL Estimat Glomerular Filtration Rate 24 BUN/Creatinine Ratio 13 Glucose Level 97 70-105 MG/DL Calcium Level 8.4 L 8.5-10.1 MG/DL Corrected Calcium 9.0 8.5-10.1 MG/DL Magnesium Level 2.0 1.6-2.4 MG/DL Total Bilirubin 0.1 0.1-1.0 MG/DL Aspartate Amino Transf (AST/SGOT) 19 5-34 U/L Alanine Aminotransferase (ALT/SGPT) 25 0-55 U/L Alkaline Phosphatase 58 40-136 U/L Total Creatine Kinase 93 29-168 U/L Creatine Kinase MB 1.8 <6.6 NG/ML Myoglobin 107.5 H 10.0-92.0 NG/ML Troponin I < 0.028 < 0.028 <0.028 NG/ML B-Type Natriuretic Peptide 127.1 H <100.0 PG/ML Total Protein 6.1 L 6.4-8.2 GM/DL Albumin 3.3 3.2-4.5 GM/DL Serum Alcohol < 10 <10 MG/DL Urine Color YELLOW Urine Clarity CLEAR Urine pH 6.0 5-9 Urine Specific [place] 1.020 1.016-1.022 Urine Protein 3+ H NEGATIVE Urine Glucose (UA) NEGATIVE NEGATIVE Urine Ketones NEGATIVE NEGATIVE Urine Nitrite NEGATIVE NEGATIVE Urine Bilirubin NEGATIVE NEGATIVE Urine Urobilinogen 0.2 < = 1.0 MG/DL Urine Leukocyte Esterase NEGATIVE NEGATIVE Urine RBC (Auto) TRACE-I H NEGATIVE Urine RBC NONE /HPF Urine WBC NONE /HPF Urine Squamous Epithelial Cells 0-2 /HPF Urine Crystals NONE /LPF Urine Bacteria NEGATIVE /HPF Urine Casts NONE /LPF Urine Mucus NEGATIVE /LPF Urine Culture Indicated NO Urine Opiates Screen NEGATIVE NEGATIVE Urine Oxycodone Screen NEGATIVE NEGATIVE Urine Methadone Screen NEGATIVE NEGATIVE Urine Propoxyphene Screen NEGATIVE NEGATIVE Urine Barbiturates Screen NEGATIVE NEGATIVE Ur Tricyclic Antidepressants Screen NEGATIVE NEGATIVE Urine Phencyclidine Screen NEGATIVE NEGATIVE Urine Amphetamines Screen NEGATIVE NEGATIVE Urine Methamphetamines Screen NEGATIVE NEGATIVE Urine Benzodiazepines Screen NEGATIVE NEGATIVE Urine Cocaine Screen NEGATIVE NEGATIVE Urine Cannabinoids Screen NEGATIVE NEGATIVE My Orders Orders - RODRIGO HILL DO Ekg Tracing (03/01/23 01:12) Ed Iv/Invasive Line Start (03/01/23 01:18) O2 (03/01/23 01:18) Monitor-Rhythm Ecg Trace Only (03/01/23 01:18) Chest 1 View, Ap/Pa Only (03/01/23 01:18) Alcohol (03/01/23 01:18) Bnp Edgar (03/01/23 01:18) Cbc With Automated Diff (03/01/23 01:18) Comprehensive Metabolic Panel (03/01/23 01:18) Creatine Kinase (03/01/23 01:18) Creatine Kinase Mb (03/01/23 01:18) Drug Screen Stat (Urine) (03/01/23 01:18) Magnesium (03/01/23 01:18) Troponin I El (03/01/23 01:18) Ua Culture If Indicated (03/01/23 01:18) Myoglobin Serum (03/01/23 01:18) Aspirin Chewable Tablet (Baby Aspirin Ch (03/01/23 01:30) Nitroglycerin Ointment (Nitrobid Ointme (03/01/23 01:30) Fentanyl Inj (Sublimaze Injection) (03/01/23 03:15) Ondansetron Injection (Zofran Injectio (03/01/23 03:30) Labetalol Injection (Normodyne Injection (03/01/23 03:30) Troponin I Edgar (03/01/23 04:49) Ekg Tracing (03/01/23 04:49) Labetalol Injection (Normodyne Injection (03/01/23 06:15) Hydralazine Injection (Apresoline Inject (03/01/23 06:15) Medications Given in ED Current Medications Medications Dose Ordered Sig/Mikal Route Start Time Stop Time Status Last Admin Dose Admin Aspirin 324 mg ONCE ONCE PO 03/01/23 01:30 03/01/23 01:31 DC 03/01/23 02:19 324 MG Fentanyl Citrate 50 mcg ONCE ONCE IVP 03/01/23 03:15 03/01/23 03:16 DC 03/01/23 03:57 50 MCG Hydralazine HCl 10 mg ONCE ONCE IV 03/01/23 06:15 03/01/23 06:16 DC 03/01/23 06:09 10 MG Labetalol HCl 10 mg ONCE ONCE IV 03/01/23 03:30 03/01/23 03:31 DC 03/01/23 03:58 10 MG Labetalol HCl 10 mg ONCE ONCE IV 03/01/23 06:15 03/01/23 06:16 DC 03/01/23 06:10 10 MG Nitroglycerin 1 inch ONCE ONCE TOP 03/01/23 01:30 03/01/23 01:31 DC 03/01/23 02:20 1 INCH Ondansetron HCl 4 mg ONCE ONCE IVP 03/01/23 03:30 03/01/23 03:31 DC 03/01/23 03:58 4 MG Vital Signs/I&O 03/01/23 03/01/23 03/01/23 01:10 01:10 01:23 Pulse 91 Resp 22 B/P (MAP) 152/114 (127) Pulse Ox 97 98 O2 Delivery Room Air Room Air Nasal Cannula O2 Flow Rate 2.00 Blood Pressure Mean: 127 Departure Impression Primary Impression: Uncontrolled hypertension Additional Impression: Chest pain Disposition: HOME, SELF-CARE Condition: Improved Departure-Patient Inst. Decision time for Depature: 06:40 Referrals: BROWN NGUYEN APRN (PCP/Family) Primary Care Physician Patient Instructions: Chest Pain, Adult ED, High Blood Pressure ED Add. Discharge Instructions: TAKE ALL OF YOUR MEDICATIONS PRESCRIBED FOLLOW UP WITH MATERIAL CONTROLLER THIS WEEK FOR FURTHER CARE RETURN TO ER IF SYMPTOMS WORSEN All discharge instructions reviewed with patient and/or family. Voiced understanding. RODRIGO HILL DO Mar 01, 2023 02:42
[2023-03-01] MEDS ORDERED: fentaNYL INJ 100 MCG/2 ML AMP IVP ONE (03:15)
[2023-03-01] MEDS ORDERED: LABETALOL HCL 20 MG/4 ML VIAL IV ONE ×2 (03:30→06:15)
[2023-03-01] MEDS ORDERED: ONDANSETRON 4 MG/2 ML (SDV) Z0FRAN IVP ONE (03:30)
[2023-03-01 04:51] LABS: BILIRUBIN,URINE NEGATIVE (NEGATIVE); CLARITY,URINE CLEAR; COLOR,URINE YELLOW; GLUCOSE, URINE (UA) NEGATIVE (NEGATIVE); KETONES,URINE NEGATIVE (NEGATIVE); LEUKOCYTE ESTERASE ,URINE NEGATIVE (NEGATIVE); NITRITE,URINE NEGATIVE (NEGATIVE); PROTEIN,URINE 3+ (NEGATIVE)
[2023-03-01 05:41] LABS: AMPHETAMINE SCREEN, URINE NEGATIVE (NEGATIVE); BARBITURATE SCREEN URINE NEGATIVE (NEGATIVE); BENZODIAZEPINES SCREEN URINE NEGATIVE (NEGATIVE); CANNABINOID SCREEN, URINE NEGATIVE (NEGATIVE); COCAINE SCREEN URINE NEGATIVE (NEGATIVE); METHADONE STAT NEGATIVE (NEGATIVE); OPIATE SCREEN URINE NEGATIVE (NEGATIVE); OXYCODONE STAT NEGATIVE (NEGATIVE); PROPOXYPHENE STAT NEGATIVE (NEGATIVE); TRICYCLIC ANTIDEPRESSANTS SCRE NEGATIVE (NEGATIVE)
[2023-03-01] MEDS ORDERED: hydrALAZINE (APESOLINE) 20 MG/ML VIAL IV ONE (06:15)
[2023-03-01 06:16] LABS: BACTERIA,URINE NEGATIVE /HPF; SQUAMOUS EPITHELIAL CELL,UR 0-2 /HPF
--- NOTE | 2023-03-01 06:24 | Diagnostic Imaging Report ---
INDICATION: Shortness of breath COMPARISONS: 02/28/2023 FINDINGS: Single view of the chest shows the cardiac contour to be upper limits of normal. There is some mild central venous prominence accentuated by the portable technique. No consolidations are seen. There is no effusion or pneumothorax. Soft tissues and bony thorax are normal. IMPRESSION: Heart size upper limits of normal with mild central venous prominence. No acute consolidations seen. Dictated by: Dictated on workstation # [id number]
[2023-03-01 06:45] VITALS: BP 127/89
[2023-03-01] MEDS ORDERED: ACETAMINOPHEN 500 MG TAB (TYLENOL) PO ONE (06:45)
== END 2023-03-01 06:45 | disposition home or self-care (01) ==
LOC: EDUNIT# 00:46 → ER 00:49
DX: I10 Essential (primary) hypertension (principal); E66.9 Obesity, unspecified; Z87.891 Personal history of nicotine dependence; Z68.41 Body mass index [BMI] 40.0-44.9, adult
CPT/HCPCS: 36415; 71045; 80053; 80306; 80320; 81000; 82550; 82553; 83735; 83874; 83880; 84484; 85025; 93005; 93041

== ENCOUNTER 2023-03-04 00:49 | Emergency (ER) | payer MEDICARE, MEDICAID ==
[2023-03-04] MEDS ORDERED: ASPIRIN 81 MG CHEW (CHILDREN'S ASA) PO ONE (01:15)
[2023-03-04] MEDS ORDERED: ONDANSETRON 4 MG/2 ML (SDV) Z0FRAN IVP ONE (01:15)
[2023-03-04] MEDS ORDERED: LABETALOL HCL 20 MG/4 ML VIAL IV ONE ×2 (01:15→02:15)
--- NOTE | 2023-03-04 01:17 | ED Cardiac General ---
History of Present Illness General Stated Complaint: SOB,NAUSEA,CP Source: patient, old records, mother (MOTHER GIVES MOST INFORMATION) History of Present Illness Date Seen by Provider: Mar 04, 2023 Time Seen by Provider: 01:00 Initial Comments PT ARRIVES VIA POV FROM HOMET WITH MOTHER HAS "NOT FELT GOOD" ALL DAY, SINCE WAKING AROUND [id number] SHE STARTED FEELING WORSE THIS EVENING AROUND 1800 TONIGHT, SHE BEGAN TO HAVE CHEST PAIN AND SHORTNESS OF BREATH SHE BEGAN HAVING NAUSEA, AND VOMITED X 2 ENROUTE AROUND 0030 SHE DID NOT TAKE ANY OF HER MEDICATIONS TODAY WAS ADMITTED HERE 02/27-02/28/23 FOR ACUTE RESPIRATORY FAILURE, SHE RECENTLY HAD COVID 02/14/23 SHE WAS SEEN HERE IN ER 03/01/23 FOR CP, SHORTNESS OF BREATH AND ELEVATED BP. SHE WAS TREATED AND RELEASED. ACUTE CORONARY SYNDROME RULED OUT, BP TREATED AND SYMPTOMS RESOLVED. 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 Allergies and Home Medications Allergies Coded Allergies: JIA Inhibitors (Verified Allergy, Severe, 05/22/19) ARB-Angiotensin Receptor Antagonist (Verified Allergy, Severe, 05/22/19) amoxicillin (Verified Allergy, Unknown, 05/28/21) baclofen (Unverified Allergy, Unknown, 05/22/19) ON H&P clavulanic acid (Verified Allergy, Unknown, 05/28/21) phenazopyridine (Unverified Allergy, Unknown, 05/22/19) ON H&P Patient Home Medication List Albuterol Sulfate (Rx-Proair) 8 Gm Hfa.aer.ad, 2 PUFF INH Q6H PRN for SHORTNESS OF BREATH, (Reported) Entered as Reported by: BROWN SCHULER on 03/21/15 1434 Amlodipine Besylate (Amlodipine Besylate) 10 Mg Tablet, 10 MG PO DAILY, (Reported) Entered as Reported by: TUNG HELTON on 07/23/15 0737 Apixaban (Eliquis) 5 Mg Tablet, 5 MG PO BID Prescribed by: RALPH DELCID on 11/01/18 1856 Biotin (Biotin) 5,000 Mcg Tab.amarilisdis, (Reported) Entered as Reported by: MIKY CAMPBELL on 05/22/19 2117 Cyclobenzaprine HCl (Cyclobenzaprine HCl) 10 Mg Tablet, 10 MG PO BID PRN for chest wall pain/muscle spasm Prescribed by: EDISON CHAMBERLAIN on 12/24/21 0206 Famotidine (Famotidine) 20 Mg Tablet, (Reported) Entered as Reported by: TALISHA CELIS on 08/05/181810 Furosemide (Lasix) 20 Mg Tablet, 20 MG PO DAILY Prescribed by: FELECIA FORTUNE on 02/28/23 1040 Gabapentin (Gabapentin) 100 Mg Capsule, 100 MG PO Q8H PRN for burning pain/neuropathy thumb Prescribed by: EDISON CHAMBERLAIN on 04/14/22 0337 Metoprolol Tartrate (Metoprolol Tartrate) 50 Mg Tablet, 50 MG PO BID Prescribed by: FELECIA FORTUNE on 07/24/15 0841 Potassium Chloride (K-Tab ER) 10 Meq Tablet.er, 10 MEQ PO DAILY Prescribed by: FELECIA FORTUNE on 02/28/23 1040 Ropinirole HCl (Ropinirole HCl) 0.5 Mg Tablet, (Reported) Entered as Reported by: TALISHA CELIS on 08/05/181809 [Clonidine Hydrochloride .2 Mg ] , (Reported) Entered as Reported by: MIKY CAMPBELL on 05/22/192115 [Meloxicam 15 Mg Tabs] , (Reported) Entered as Reported by: MIKY CAMPBELL on 05/22/192115 [Metoprolol Tartrate 100 Mg Tab] , (Reported) Entered as Reported by: MIKY CAMPBELL on 05/22/191929 [Olanzapine 10 Mg Tabs] , (Reported) Entered as Reported by: MIKY CAMPBELL on 05/22/192115 [Oxcarbazepine 300 Mg Tabs] , (Reported) Entered as Reported by: MIKY CAMPBELL on 05/22/192115 Discontinued Medications Azithromycin (Azithromycin) 250 Mg Tablet, 250 MG PO DAILY Prescribed by: Radha mayo on 06/10/222056 Clindamycin HCl (Clindamycin HCl) 300 Mg Capsule, 300 MG PO QID Prescribed by: KEYA LENTZ on 03/11/222202 Clindamycin HCl (Clindamycin HCl) 300 Mg Capsule, 300 MG PO TID Prescribed by: EDISON CHAMBERLAIN on 06/17/22 2334 Diphenoxylate HCl/Atropine (Lomotil 2.5-0.025 mg Tablet) 1 Each Tablet, 1 EACH PO BID PRN for DIARRHEA Prescribed by: ORESTES VELASCO on 11/29/19 230 Epinephrine (Epinephrine) 0.3 Mg/0.3 Ml Auto.injct, 0.3 MG IJ PRN Prescribed by: MOUNIKA GARCIA on 05/28/21 0932 Hydrocodone/Acetaminophen (Hydrocodone-Acetamin 5-325 mg) 1 Each Tablet, 1 TAB PO Q4H PRN for PAIN-MODERATE (5-7) Prescribed by: KEYA LENTZ on 03/11/22 220 Hydrocodone/Acetaminophen (Hydrocodone-Acetamin 5-325 mg) 5 Mg-325 Mg Tablet, 1 TAB PO Q6H PRN for PAIN-SEVERE (8-10) Prescribed by: EDISON CHAMBERLAIN on 06/17/22 233 Hydrocodone/Acetaminophen (Hydrocodone-Acetamin 5-325 mg) 5 Mg-325 Mg Tablet, 1 TAB PO Q4H PRN for PAIN-MODERATE (5-7) Prescribed by: RALPH DELCID on 12/11/22 220 Ondansetron (Ondansetron Odt) 4 Mg Tab.rapdis, 4 MG PO Q6H PRN for NAUSEA/V OMITING Prescribed by: EDISON CHAMBERLAIN on 12/03/21 215 Ondansetron (Ondansetron Odt) 4 Mg Tab.rapdis, 4 MG SL Q4H PRN for NAUSEA/VOMITING Prescribed by: RALHP DELCID on 02/15/23 0410 Oxymetazoline HCl (Afrin) 0.05 % Wolf, 2 SPRAY NS QID PRN for nasal congestion Prescribed by: Radha mayo on 06/10/222056 Sacubitril/Valsartan (Entresto 24 mg-26 mg Tablet) 1 Each Tablet, (Reported) Entered as Reported by: TALISHA CELIS on 08/05/18 181 Sulfamethoxazole/Trimethoprim (Bactrim Ds Tablet) 1 Each Tablet, 1 EACH PO BID Prescribed by: VINITA RICHARD on 01/14/23 0131 Tramadol HCl (Tramadol HCl) 50 Mg Tablet, 50 MG PO Q6H PRN for PAIN BREAKTROUGH Prescribed by: RALPH DELCID on 02/15/23 0411 Past Lgbwsdl-Nrwaex-Eipnts Hx Immunizations Up To Date Tetanus Booster (TDap): Unknown PED Vaccines UTD: Yes First/Initial COVID19 Vaccinat: X3 Second COVID19 Vaccination [place]: Pfizer Third COVID19 Vaccination Date: Pfizer Seasonal Allergies Seasonal Allergies: No Past Medical History Surgery/Hospitalization HX: DEFIBRILATOR, PACEMAKER REMOVED Surgeries: Yes (PACER/DEFIB 2014; DEFIB PLACED 05/10/19. PEG TUBE- REMOVED;UTERINE ABLATION) Abdominal, Section, Defibrillator, Gallbladder, Hysterectomy, Pacemaker Respiratory: Yes (ARDS-CODED; PNEUMOTHORAX 06/2015) Pneumonia, Chronic Bronchitis Currently Using CPAP: No Currently Using BIPAP: No Cardiac: Yes (PULMONARY EDEMA/CARDIAC CAUSE-R/T ATRIAL THROMBUS; CARDIAC ARREST;V-FIB ) Cardiomyopathy, Endocarditis, Hypertension, Valvular Heart Disease Neurological: Yes (encephalopathy-hypoxia, anoxic brain injury; POOR MEMORY;SLURRED SPEECH) Reproductive Disorders: Yes (ENDOMETRIAL ABLATION) Female Reproductive Disorders: Menstrual Problems Sexually Transmitted Disease: No Genitourinary: Yes (BASELINE CREATININE BETWEEN 2 & 3) Renal Failure Gastrointestinal: Yes Gastroesophageal Reflux Musculoskeletal: Yes (GAIT DISTURBANCE) Endocrine: No (OBESITY) HEENT: No Loss of Vision: Denies Hearing Impairment: Denies Cancer: No Psychosocial: Yes (SUBSTANCE ABUSE) Anxiety, Bipolar, Depression Integumentary: No Blood Disorders: Yes (ANEMIA) Family Medical History Patient reports no known family medical history. 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 SHE HAS HAD A DEFIBRILLATOR IN PLACE SINCE AGE 24. Physical Exam Vital Signs Vital Signs - First Documented Capillary Refill : Height, Weight, BMI Height: 5'3.00" Weight: 234lbs. 0oz. 106.576337bh; 44.00 BMI Method:Stated Progress/Results/Core Measures Results/Orders Lab Results Laboratory Tests Test 03/04/23 01:10 03/04/23 02:12 03/04/23 03:20 Range/Units White Blood Count 10.2 4.3-11.0 10^3/uL Red Blood Count 4.36 3.80-5.11 10^6/uL Hemoglobin 12.5 11.5-16.0 g/dL Hematocrit 39 35-52 % Mean Corpuscular Volume 89 80-99 fL Mean Corpuscular Hemoglobin 29 25-34 pg Mean Corpuscular Hemoglobin Concent 32 32-36 g/dL Red Cell Distribution Width 14.8 H 10.0-14.5 % Platelet Count 366 130-400 10^3/uL Mean Platelet Volume 9.0 9.0-12.2 fL Immature Granulocyte % (Auto) 0 % Neutrophils (%) (Auto) 52 42-75 % Lymphocytes (%) (Auto) 39 12-44 % Monocytes (%) (Auto) 7 0-12 % Eosinophils (%) (Auto) 2 0-10 % Basophils (%) (Auto) 1 0-10 % Neutrophils # (Auto) 5.3 1.8-7.8 10^3/uL Lymphocytes # (Auto) 3.9 1.0-4.0 10^3/uL Monocytes # (Auto) 0.7 0.0-1.0 10^3/uL Eosinophils # (Auto) 0.2 0.0-0.3 10^3/uL Basophils # (Auto) 0.1 0.0-0.1 10^3/uL Immature Granulocyte # (Auto) 0.0 0.0-0.1 10^3/uL Prothrombin Time 12.4 12.2-14.7 SEC INR Comment 0.9 0.8-1.4 Activated Partial Thromboplast Time 27 24-35 SEC Sodium Level 139 135-145 MMOL/L Potassium Level 3.9 3.6-5.0 MMOL/L Chloride Level 104 98-107 MMOL/L Carbon Dioxide Level 25 21-32 MMOL/L Anion Gap 10 5-14 MMOL/L Blood Urea Nitrogen 27 H 7-18 MG/DL Creatinine 2.51 H 0.60-1.30 MG/DL Estimat Glomerular Filtration Rate 25 BUN/Creatinine Ratio 11 Glucose Level 109 H 70-105 MG/DL Calcium Level 8.6 8.5-10.1 MG/DL Corrected Calcium 9.2 8.5-10.1 MG/DL Magnesium Level 2.0 1.6-2.4 MG/DL Total Bilirubin 0.2 0.1-1.0 MG/DL Aspartate Amino Transf (AST/SGOT) 20 5-34 U/L Alanine Aminotransferase (ALT/SGPT) 28 0-55 U/L Alkaline Phosphatase 61 40-136 U/L Total Creatine Kinase 114 29-168 U/L Creatine Kinase MB 1.5 <6.6 NG/ML Myoglobin 85.7 10.0-92.0 NG/ML Troponin I 0.028 < 0.028 <0.028 NG/ML B-Type Natriuretic Peptide 252.4 H <100.0 PG/ML Total Protein 5.8 L 6.4-8.2 GM/DL Albumin 3.3 3.2-4.5 GM/DL Amylase Level 153 H 25-125 U/L Lipase 75 8-78 U/L Urine Color YELLOW Urine Clarity CLEAR Urine pH 6.5 5-9 Urine Specific [place] 1.015 L 1.016-1.022 Urine Protein 2+ H NEGATIVE Urine Glucose (UA) NEGATIVE NEGATIVE Urine Ketones NEGATIVE NEGATIVE Urine Nitrite NEGATIVE NEGATIVE Urine Bilirubin NEGATIVE NEGATIVE Urine Urobilinogen 0.2 < = 1.0 MG/DL Urine Leukocyte Esterase NEGATIVE NEGATIVE Urine RBC (Auto) TRACE-I H NEGATIVE Urine RBC NONE /HPF Urine WBC NONE /HPF Urine Squamous Epithelial Cells 0-2 /HPF Urine Crystals NONE /LPF Urine Bacteria TRACE /HPF Urine Casts NONE /LPF Urine Mucus NEGATIVE /LPF Urine Culture Indicated NO Urine Opiates Screen NEGATIVE NEGATIVE Urine Oxycodone Screen NEGATIVE NEGATIVE Urine Methadone Screen NEGATIVE NEGATIVE Urine Propoxyphene Screen NEGATIVE NEGATIVE Urine Barbiturates Screen NEGATIVE NEGATIVE Ur Tricyclic Antidepressants Screen NEGATIVE NEGATIVE Urine Phencyclidine Screen NEGATIVE NEGATIVE Urine Amphetamines Screen NEGATIVE NEGATIVE Urine Methamphetamines Screen NEGATIVE NEGATIVE Urine Benzodiazepines Screen NEGATIVE NEGATIVE Urine Cocaine Screen NEGATIVE NEGATIVE Urine Cannabinoids Screen NEGATIVE NEGATIVE My Orders Orders - RODRIGO HILL K DO Cbc With Automated Diff (03/04/23 01:01) Magnesium (03/04/23 01:01) Chest 1 View, Ap/Pa Only (03/04/23 01:01) Ekg Tracing (03/04/23 01:01) Comprehensive Metabolic Panel (03/04/23 01:01) Myoglobin Serum (03/04/23 01:01) Protime With Inr (03/04/23 01:01) Partial Thromboplastin Time (03/04/23 01:01) O2 (03/04/23 01:01) Monitor-Rhythm Ecg Trace Only (03/04/23 01:01) Ed Iv/Invasive Line Start (03/04/23 01:01) Creatine Kinase (03/04/23 01:01) Creatine Kinase Mb (03/04/23 01:01) Lipase (03/04/23 01:01) Amylase (03/04/23 01:01) Bnp El (03/04/23 01:01) Troponin I El (03/04/23 01:01) Aspirin Chewable Tablet (Baby Aspirin Ch (03/04/23 01:15) Labetalol Injection (Normodyne Injection (03/04/23 01:15) Ondansetron Injection (Zofran Injectio (03/04/23 01:15) Labetalol Injection (Normodyne Injection (03/04/23 02:15) Hydralazine Injection (Apresoline Inject (03/04/23 02:15) Furosemide Injection (Lasix Injection) (03/04/23 02:30) Acetaminophen Tablet (Tylenol Tablet) (03/04/23 02:30) Ketorolac Injection (Toradol Injection) (03/04/23 03:30) Diphenhydramine Injection (Benadryl Inje (03/04/23 03:30) Ekg Tracing (03/04/23 03:18) Troponin I El (03/04/23 03:18) Drug Screen Stat (Urine) (03/04/23 03:23) Ua Culture If Indicated (03/04/23 03:23) Medications Given in ED Current Medications Medications Dose Ordered Sig/Mikal Route Start Time Stop Time Status Last Admin Dose Admin Acetaminophen 1,000 mg ONCE ONCE PO 03/04/23 02:30 03/04/23 02:31 DC 03/04/23 02:41 1,000 MG Aspirin 324 mg ONCE ONCE PO 03/04/23 01:15 03/04/23 01:16 DC 03/04/23 01:14 324 MG Diphenhydramine HCl 50 mg ONCE ONCE IVP 03/04/23 03:30 03/04/23 03:31 DC 03/04/23 03:30 50 MG Furosemide 40 mg ONCE ONCE IVP 03/04/23 02:30 03/04/23 02:31 DC 03/04/23 02:40 40 MG Hydralazine HCl 10 mg ONCE ONCE IV 03/04/23 02:15 03/04/23 02:16 DC 03/04/23 02:40 10 MG Ketorolac Tromethamine 30 mg ONCE ONCE IVP 03/04/23 03:30 03/04/23 03:31 DC 03/04/23 03:30 30 MG Labetalol HCl 20 mg ONCE ONCE IV 03/04/23 01:15 03/04/23 01:16 DC 03/04/23 01:15 20 MG Labetalol HCl 20 mg ONCE ONCE IV 03/04/23 02:15 03/04/23 02:16 DC 03/04/23 02:40 20 MG Ondansetron HCl 8 mg ONCE ONCE IVP 03/04/23 01:15 03/04/23 01:16 DC 03/04/23 01:15 8 MG Vital Signs/I&O 03/04/23 03/04/23 01:00 01:00 Temp 36.9 Pulse 107 Resp 22 B/P (MAP) 171/122 (138) Pulse Ox 98 O2 Delivery Room Air Room Air Progress Progress Note : Progress Note CREATININE IS TOO HIGH TO DO CT CHEST ANGIOGRAM. PT IS AT NORMAL BASELINE CREATININE--CREATININE ALWAYS RUNS BETWEEN 2 AND 3. 0310--HAD JUST REVIEWED ALL TEST RESULTS WITH PT AND MOTHER, BP DOWN TO 118/71, AND PT WAS PLAYING ON PHONE AND LAUGHING. HAD JUST ADVISED HER I WAS SENDING HER HOME. PT UP TO BATHROOM, AND ON RETURN SHE IS SUDDENLY HYPERVENTILATING, C/O CHEST PAIN, NOT WANTING TO TALK. VERY DRAMATIC. BP IS BACK UP BUT PT IS THRASHING AND WRITHING ALL OVER. REPEAT EKG AND LAB DONE AND MEDICATIONS ORDERED. CHEST IS NOW VERY DRAMATICALLY TENDER TO PALPATION. 2925--PT IS SITTING UP, PLAYING ON PHONE, LAUGHING, TALKING TO MOM, DOES NOT APPEAR TO BE IN ANY DISCOMFORT OR DISTRESS. REVIEWED REPEAT TESTS WITH PT AND MOTHER, PT IS STILL LAUGHING AND TALKATIVE. BP COMING DOWN AGAIN PT STATES SHE IS NOW READY TO GO HOME, MOTHER IS COMFORTABLE TAKING PT HOME MOTHER WORKS 11 AM-4 PM, PT'S BROTHER IS WITH HER WHEN MOM IS AT WORK Initial ECG Impression Date: Mar 04, 2023 Initial ECG Impression Time: 01:08 Initial ECG Rate: 95 Initial ECG Rhythm: Normal Sinus Initial ECG Intervals WI 173 QRS 89 QT/QTC 368/463 Initial ECG Impression: Nonspecific Changes Initial ECG Comparisson: Unchanged Comment INTERPRETED BY ME EKG : EKG Time: 03:18 Rate: 89 Rhythm: Normal Sinus Intervals WI 183 QRS 91 QT/QTC 394/480 ECG Impression: Nonspecific Changes Comment INVERTED T WAVES INFERIORLY, MORE PROMINENT THAN ONE DONE AT 0108 Diagnostic Imaging Comments CXR--NO ACUTE PROCESS, PENDING RADIOLOGIST REVIEW Reviewed: Reviewed by Me Departure Communication (Admissions) 0400--SPOKE WITH DR. 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 Decision time for Depature: 04:09 Referrals: BROWN NGUYEN APRN (PCP/Family) Primary Care Physician Patient Instructions: High Blood Pressure ED, Chest Pain, Adult ED Add. Discharge Instructions: TAKE YOUR MEDICATIONS PRESCRIBED, DO NOT MISS DOSES OF YOUR MEDICATIONS FOLLOW UP WITH YOUR HEART DOCTOR IN THE NEXT WEEK RETURN TO ER IF SYMPTOMS WORSEN RODRIGO HILL DO Mar 04, 2023 01:17
[2023-03-04 01:30] LABS: BASOPHILS # (AUTO) 0.1 10^3/uL (0.0-0.1); BASOPHILS % (AUTO) 1 % (0-10); EOSINOPHILS # (AUTO) 0.2 10^3/uL (0.0-0.3); EOSINOPHILS % (AUTO) 2 % (0-10); HEMATOCRIT 39 % (35-52); HEMOGLOBIN 12.5 g/dL (11.5-16.0); LYMPHOCYTES # (AUTO) 3.9 10^3/uL (1.0-4.0); LYMPHOCYTES % (AUTO) 39 % (12-44); MEAN CORPUSCULAR HEMOGLOBIN 29 pg (25-34); MEAN CORPUSCULAR HGB CONC 32 g/dL (32-36); MEAN CORPUSCULAR VOLUME 89 fL (80-99); MONOCYTES # (AUTO) 0.7 10^3/uL (0.0-1.0); MONOCYTES % (AUTO) 7 % (0-12); NEUTROPHILS # (AUTO) 5.3 10^3/uL (1.8-7.8); NEUTROPHILS % (AUTO) 52 % (42-75); PLATELET COUNT 366 10^3/uL (130-400); WHITE BLOOD COUNT 10.2 10^3/uL (4.3-11.0)
[2023-03-04 01:35] LABS: ALBUMIN 3.3 GM/DL (3.2-4.5); POTASSIUM 3.9 MMOL/L (3.6-5.0)
[2023-03-04 01:36] LABS: CALCIUM 8.6 MG/DL (8.5-10.1); INR 0.9 (0.8-1.4); PROTHROMBIN TIME PATIENT 12.4 SEC (12.2-14.7)
[2023-03-04 01:37] LABS: TOTAL PROTEIN 5.8 GM/DL (6.4-8.2)
[2023-03-04 01:39] LABS: BILIRUBIN,TOTAL 0.2 MG/DL (0.1-1.0)
[2023-03-04 01:41] LABS: CREATININE SERUM 2.51 MG/DL (0.60-1.30)
[2023-03-04 01:52] LABS: CREATINE KINASE MB 1.5 NG/ML (<6.6)
[2023-03-04] MEDS ORDERED: hydrALAZINE (APESOLINE) 20 MG/ML VIAL IV ONE (02:15)
[2023-03-04] MEDS ORDERED: ACETAMINOPHEN 500 MG TAB (TYLENOL) PO ONE (02:30)
[2023-03-04] MEDS ORDERED: FUROSEMIDE 40 MG/4 ML INJ (LASIX) IVP ONE (02:30)
[2023-03-04] MEDS ORDERED: KETOROLAC 30 MG/ML VIAL IVP ONE (03:30)
[2023-03-04] MEDS ORDERED: diphenhydrAMINE 50 MG/ML INJ (BENADRYL) IVP ONE (03:30)
[2023-03-04 03:31] LABS: BILIRUBIN,URINE NEGATIVE (NEGATIVE); CLARITY,URINE CLEAR; COLOR,URINE YELLOW; GLUCOSE, URINE (UA) NEGATIVE (NEGATIVE); KETONES,URINE NEGATIVE (NEGATIVE); LEUKOCYTE ESTERASE ,URINE NEGATIVE (NEGATIVE); NITRITE,URINE NEGATIVE (NEGATIVE); PH,URINE 6.5 (5-9); PROTEIN,URINE 2+ (NEGATIVE)
[2023-03-04 03:38] LABS: BACTERIA,URINE TRACE /HPF; SQUAMOUS EPITHELIAL CELL,UR 0-2 /HPF
[2023-03-04 03:42] LABS: AMPHETAMINE SCREEN, URINE NEGATIVE (NEGATIVE); BARBITURATE SCREEN URINE NEGATIVE (NEGATIVE); BENZODIAZEPINES SCREEN URINE NEGATIVE (NEGATIVE); CANNABINOID SCREEN, URINE NEGATIVE (NEGATIVE); COCAINE SCREEN URINE NEGATIVE (NEGATIVE); METHADONE STAT NEGATIVE (NEGATIVE); OPIATE SCREEN URINE NEGATIVE (NEGATIVE); OXYCODONE STAT NEGATIVE (NEGATIVE); PROPOXYPHENE STAT NEGATIVE (NEGATIVE); TRICYCLIC ANTIDEPRESSANTS SCRE NEGATIVE (NEGATIVE)
[2023-03-04 04:07] VITALS: BP 160/114
--- NOTE | 2023-03-04 07:15 | Diagnostic Imaging Report ---
HISTORY: Chest pain TECHNIQUE: Frontal view the chest. COMPARISON: 03/01/2023 FINDINGS: Lung volumes are normal. No consolidation is seen. Left-sided automatic implantable cardiac defibrillator leads are stable. There is mild cardiomegaly with mild central vascular congestion. There is no pleural effusion or pneumothorax. IMPRESSION: 1. Mild cardiomegaly with mild central vascular congestion. Dictated by: Dictated on workstation # [id number]
== END 2023-03-04 04:14 | disposition home or self-care (01) ==
LOC: EDUNIT# 00:49 → ER 00:51
DX: I10 Essential (primary) hypertension (principal); F41.9 Anxiety disorder, unspecified; E66.9 Obesity, unspecified; Z68.41 Body mass index [BMI] 40.0-44.9, adult; Z87.891 Personal history of nicotine dependence; Z86.16 Personal history of COVID-19; Z91.199 Patient's noncompliance with other medical treatment and regimen due to unspecified reason
CPT/HCPCS: 36415; 71045; 80053; 80306; 81000; 82150; 82550; 82553; 83690; 83735; 83874; 83880; 84484; 85025; 85610; 85730; 93005; 93041

== ENCOUNTER 2023-03-07 07:09 | Emergency (ER) | payer MEDICARE, MEDICAID ==
[~2023-03-07] VITALS: Ht 160 cm; Wt 99.5 kg
--- NOTE | 2023-03-07 07:35 | ED Chest Pain ---
General Chief Complaint: Chest Pain Stated Complaint: CHEST TIGHTNESS | WEAKNESS Nursing Triage Note: PT AMB TO RM 9 PT CO OF CHEST PRESSURE THIS AM, PT STATES PACEMAKER DUE TO HAVE BATTERY CHANGE. PT STATES HAS BEEN VOMITING LAST PM. PT STATES STARTED EARLY THIS AM. PT IS VERY DROWSY, FALLING ASLEEP AND UNABLE TO STAY AWAKE TO ANSWER QUESTIONS. MOTHER HERE ANSWERING QUESTIONS. MOTHER LIVES W PT. CHEST PAIN IN REPRODUCABLE BY RN. PT IS VERY ANXIOUS Source: patient Exam Limitations: no limitations History of Present Illness Date Seen by Provider: Mar 07, 2023 Time Seen by Provider: 07:10 Initial Comments This 32-year-old woman presents to the emergency room with complaints of chest pressure, nausea, vomiting, and shortness of breath. See nursing triage note above. She has been seen in the ER multiple times recently and been admitted recently due to COVID-19, hypertension, and heart failure issues. On the recent echocardiogram she had an ejection fraction of 45% with grade 1 diastolic dysfunction. She is afebrile presently. She has not yet taken her morning medications except for Lasix. She is accompanied by her mother. She has an appointment later this month with an naval architect to have her pacemaker/defibrillator leads checked. Allergies and Home Medications Allergies Coded Allergies: JIA Inhibitors (Verified Allergy, Severe, 05/22/19) ARB-Angiotensin Receptor Antagonist (Verified Allergy, Severe, 05/22/19) amoxicillin (Verified Allergy, Unknown, 05/28/21) baclofen (Unverified Allergy, Unknown, 05/22/19) ON H&P clavulanic acid (Verified Allergy, Unknown, 05/28/21) phenazopyridine (Unverified Allergy, Unknown, 05/22/19) ON H&P Patient Home Medication List Home Medication List Reviewed: Yes Albuterol Sulfate (Rx-Proair) 8 Gm Hfa.aer.ad, 2 PUFF INH Q6H PRN for SHORTNESS OF BREATH, (Reported) Entered as Reported by: BROWN SCHULER on 03/21/15 1434 Amlodipine Besylate (Amlodipine Besylate) 10 Mg Tablet, 10 MG PO DAILY, (Reported) Entered as Reported by: TUNG HELTON on 07/23/15 0737 Apixaban (Eliquis) 5 Mg Tablet, 5 MG PO BID Prescribed by: RALPH DELCID on 11/01/18 8412 Biotin (Biotin) 5,000 Mcg Tab.rapdis, (Reported) Entered as Reported by: MIKY CAMPBELL on 05/22/192116 Cyclobenzaprine HCl (Cyclobenzaprine HCl) 10 Mg Tablet, 10 MG PO BID PRN for chest wall pain/muscle spasm Prescribed by: EDISON CHAMBERLAIN on 12/24/21 0206 Famotidine (Famotidine) 20 Mg Tablet, (Reported) Entered as Reported by: TALISHA CELIS on 08/05/181810 Furosemide (Lasix) 20 Mg Tablet, 20 MG PO DAILY Prescribed by: FELECIA FORTUNE on 02/28/23 1040 Gabapentin (Gabapentin) 100 Mg Capsule, 100 MG PO Q8H PRN for burning pain/neuropathy thumb Prescribed by: EDISON CHAMBERLAIN on 04/14/22 0337 Metoprolol Tartrate (Metoprolol Tartrate) 50 Mg Tablet, 50 MG PO BID Prescribed by: FELECIA FORTUNE on 07/24/15 0841 Potassium Chloride (K-Tab ER) 10 Meq Tablet.er, 10 MEQ PO DAILY Prescribed by: FELECIA FORTUNE on 02/28/23 1040 Ropinirole HCl (Ropinirole HCl) 0.5 Mg Tablet, (Reported) Entered as Reported by: TALISHA CELIS on 08/05/181809 [Clonidine Hydrochloride .2 Mg ] , (Reported) Entered as Reported by: MIKY CAMPBELL on 05/22/192115 [Meloxicam 15 Mg Tabs] , (Reported) Entered as Reported by: MIKY CAMPBELL on 05/22/192115 [Metoprolol Tartrate 100 Mg Tab] , (Reported) Entered as Reported by: MIKY CAMPBELL on 05/22/191929 [Olanzapine 10 Mg Tabs] , (Reported) Entered as Reported by: MIKY CAMPBELL on 05/22/192115 [Oxcarbazepine 300 Mg Tabs] , (Reported) Entered as Reported by: MIKY CAMPBELL on 05/22/192115 Review of Systems Review of Systems Constitutional: see HPI EENTM: No Symptoms Reported Respiratory: See HPI Cardiovascular: See HPI Gastrointestinal: See HPI Genitourinary: No Symptoms Reported Musculoskeletal: no symptoms reported Skin: no symptoms reported Psychiatric/Neurological: Other (neurologic deficits from prior anoxic brain injury) Endocrine: No Symptoms Reported Hematologic/Lymphatic: No Symptoms Reported Past Roupktp-Axgjtd-Zylhba Hx Patient Social History Tobacco Use?: No Substance use?: No Alcohol Use?: No Pt feels they are or have been: No Immunizations Up To Date Tetanus Booster (TDap): Unknown PED Vaccines UTD: Yes First/Initial COVID19 Vaccinat: X3 Second COVID19 Vaccination [place]air: Pfizer Third COVID19 Vaccination Date: Pfizer Seasonal Allergies Seasonal Allergies: No Past Medical History Surgery/Hospitalization HX: DEFIBRILATOR, PACEMAKER REMOVED, , GALLBLADDER, HYST Surgeries: Yes (PACER/DEFIB 2014; DEFIB PLACED 05/10/19. PEG TUBE- REMOVED;UTERINE ABLATION) Abdominal, Section, Defibrillator, Gallbladder, Hysterectomy, Pacemaker Respiratory: Yes (ARDS-CODED; PNEUMOTHORAX 06/2015) Pneumonia, Chronic Bronchitis Currently Using CPAP: No Currently Using BIPAP: No Cardiac: Yes (PULMONARY EDEMA/CARDIAC CAUSE-R/T ATRIAL THROMBUS; CARDIAC ARREST;V-FIB ) Cardiomyopathy (CHF), Endocarditis, Hypertension, Valvular Heart Disease Neurological: Yes (encephalopathy-hypoxia, anoxic brain injury; POOR MEMORY;SLURRED SPEECH) Reproductive Disorders: Yes (ENDOMETRIAL ABLATION) Female Reproductive Disorders: Menstrual Problems Sexually Transmitted Disease: No Genitourinary: Yes (BASELINE CREATININE BETWEEN 2 & 3) Renal Failure Gastrointestinal: Yes Gastroesophageal Reflux Musculoskeletal: Yes (GAIT DISTURBANCE) Endocrine: No (OBESITY) HEENT: No Loss of Vision: Denies Hearing Impairment: Denies Cancer: No Psychosocial: Yes (SUBSTANCE ABUSE) Anxiety, Bipolar, Depression Integumentary: No Blood Disorders: Yes (ANEMIA) Family Medical History Patient reports no known family medical history. 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 SHE HAS HAD A DEFIBRILLATOR IN PLACE SINCE AGE 24. Physical Exam Vital Signs Vital Signs - First Documented 03/07/23 07:09 Temp 36.5 Pulse 86 Resp 18 B/P (MAP) 131/71 (91) Pulse Ox 98 O2 Delivery Room Air Capillary Refill : Less Than 3 Seconds Height, Weight, BMI Height: 5'3.00" Weight: 234lbs. 0oz. 106.329237ce; 38.00 BMI Method:Stated General Appearance: WD/WN, Obese HEENT: Normal ENT Inspection Neck: Normal Inspection; No JVD Respiratory: Lungs Clear, Normal Breath Sounds, No Accessory Muscle Use Cardiovascular: Regular Rate, Rhythm, No Edema, No Murmur Gastrointestinal: Non Tender, Soft Extremity: Normal Inspection, No Pedal Edema Neurologic/Psychiatric: Alert, Oriented x3, Other (deficits chronic and at baseline) Skin: Normal Color, Warm/Dry Progress/Results/Core Measures Results/Orders Lab Results Laboratory Tests Test 03/07/23 07:12 03/07/23 08:04 Range/Units White Blood Count 9.8 4.3-11.0 10^3/uL Red Blood Count 4.69 3.80-5.11 10^6/uL Hemoglobin 13.4 11.5-16.0 g/dL Hematocrit 42 35-52 % Mean Corpuscular Volume 90 80-99 fL Mean Corpuscular Hemoglobin 29 25-34 pg Mean Corpuscular Hemoglobin Concent 32 32-36 g/dL Red Cell Distribution Width 15.0 H 10.0-14.5 % Platelet Count 397 130-400 10^3/uL Mean Platelet Volume 9.8 9.0-12.2 fL Immature Granulocyte % (Auto) 0 % Neutrophils (%) (Auto) 43 42-75 % Lymphocytes (%) (Auto) 46 H 12-44 % Monocytes (%) (Auto) 8 0-12 % Eosinophils (%) (Auto) 2 0-10 % Basophils (%) (Auto) 1 0-10 % Neutrophils # (Auto) 4.2 1.8-7.8 10^3/uL Lymphocytes # (Auto) 4.5 H 1.0-4.0 10^3/uL Monocytes # (Auto) 0.8 0.0-1.0 10^3/uL Eosinophils # (Auto) 0.2 0.0-0.3 10^3/uL Basophils # (Auto) 0.1 0.0-0.1 10^3/uL Immature Granulocyte # (Auto) 0.0 0.0-0.1 10^3/uL Sodium Level 140 135-145 MMOL/L Potassium Level 4.3 3.6-5.0 MMOL/L Chloride Level 106 98-107 MMOL/L Carbon Dioxide Level 26 21-32 MMOL/L Anion Gap 8 5-14 MMOL/L Blood Urea Nitrogen 19 H 7-18 MG/DL Creatinine 2.46 H 0.60-1.30 MG/DL Estimat Glomerular Filtration Rate 26 BUN/Creatinine Ratio 8 Glucose Level 90 70-105 MG/DL Calcium Level 8.6 8.5-10.1 MG/DL Corrected Calcium 9.0 8.5-10.1 MG/DL Magnesium Level 2.2 1.6-2.4 MG/DL Total Bilirubin 0.2 0.1-1.0 MG/DL Aspartate Amino Transf (AST/SGOT) 17 5-34 U/L Alanine Aminotransferase (ALT/SGPT) 21 0-55 U/L Alkaline Phosphatase 75 40-136 U/L Myoglobin 151.7 H 10.0-92.0 NG/ML Troponin I < 0.028 <0.028 NG/ML C-Reactive Protein High Sensitivity 1.67 H 0.00-0.50 MG/DL B-Type Natriuretic Peptide 139.5 H <100.0 PG/ML Total Protein 6.5 6.4-8.2 GM/DL Albumin 3.5 3.2-4.5 GM/DL Prothrombin Time 13.6 12.2-14.7 SEC INR Comment 1.0 0.8-1.4 Activated Partial Thromboplast Time 29 24-35 SEC My Orders Orders - RALPH LÓPEZ MD Cbc With Automated Diff (03/07/23 07:16) Magnesium (03/07/23 07:16) Chest 1 View, Ap/Pa Only (03/07/23 07:16) Ekg Tracing (03/07/23 07:16) Comprehensive Metabolic Panel (03/07/23 07:16) Myoglobin Serum (03/07/23 07:16) Protime With Inr (03/07/23 07:16) Partial Thromboplastin Time (03/07/23 07:16) O2 (03/07/23 07:16) Monitor-Rhythm Ecg Trace Only (03/07/23 07:16) Ed Iv/Invasive Line Start (03/07/23 07:16) Bnp El (03/07/23 07:16) Troponin I [place] (03/07/23 07:16) Hs C Reactive Protein (03/07/23 07:16) Vital Signs/I&O 03/07/23 03/07/23 07:09 09:56 Temp 36.5 Pulse 86 82 Resp 18 16 B/P (MAP) 131/71 (91) 132/80 Pulse Ox 98 98 O2 Delivery Room Air Room Air Blood Pressure Mean: 91 Initial ECG Impression Date: Mar 07, 2023 Initial ECG Impression Time: 07:17 Initial ECG Rate: 90 Initial ECG Rhythm: Normal Sinus Comment Normal sinus rhythm with no ST elevation or depression. LVH noted. No significant abnormal intervals. Diagnostic Imaging Diagonstic Imaging: Xray Plain Films/CT/US/NM/MRI: chest Comments Patient was interviewed and examined. Chest x-ray was viewed by me and compared with prior. There were no acute or adverse changes by my interpretation. Radiologist's interpretation likewise detected no acute abnormalities. EKG was interpreted by me and demonstrated no acute adverse changes. Labs including CBC, CMP, troponin, magnesium, BNP, and CRP were all reviewed and interpreted by me. There were no acute adverse changes. Chronic kidney disease remains stable based on creatinine value. Patient was given reassurance and discharged home. See discharge instructions for further discussion. Departure Impression Primary Impression: Atypical chest pain Additional Impression: Shortness of breath Disposition: 01 HOME, SELF-CARE Condition: Stable Departure-Patient Inst. Decision time for Depature: 09:45 Referrals: BROWN NGUYEN APRN (PCP/Family) Primary Care Physician Patient Instructions: Chest Pain, Adult ED Add. Discharge Instructions: Keep your cardiology appointments as previously arranged. No acute changes to your health were noted on your work-up in the emergency room today. Use your inhalers as previously prescribed if you have shortness of breath. Return to the emergency room if you have worsening symptoms despite following instructions for your medications and follow-up. Follow-up with your primary care provider soon as possible. All discharge instructions reviewed with patient and/or family. Voiced understanding. Copy Copies To 1: [facility]/RALPH KIM MD Mar 07, 2023 07:35
--- NOTE | 2023-03-07 07:41 | Diagnostic Imaging Report ---
INDICATION: Chest pain. TECHNIQUE: Single view chest 7:22 AM. CORRELATION STUDY: 03/04/2023 FINDINGS: Left-sided AICD, stable. Heart size borderline enlarged, unchanged. Vasculature within normal limits. The lungs are clear with no consolidating infiltrate. There is no significant effusion or pneumothorax. IMPRESSION: 1. Stable borderline cardiac enlargement. Negative for failure. Dictated by: Dictated on workstation # [id number]
[2023-03-07 07:54] LABS: BASOPHILS # (AUTO) 0.1 10^3/uL (0.0-0.1); BASOPHILS % (AUTO) 1 % (0-10); EOSINOPHILS # (AUTO) 0.2 10^3/uL (0.0-0.3); EOSINOPHILS % (AUTO) 2 % (0-10); HEMATOCRIT 42 % (35-52); HEMOGLOBIN 13.4 g/dL (11.5-16.0); LYMPHOCYTES # (AUTO) 4.5 10^3/uL (1.0-4.0); LYMPHOCYTES % (AUTO) 46 % (12-44); MEAN CORPUSCULAR HEMOGLOBIN 29 pg (25-34); MEAN CORPUSCULAR HGB CONC 32 g/dL (32-36); MEAN CORPUSCULAR VOLUME 90 fL (80-99); MEAN PLATELET VOLUME 9.8 fL (9.0-12.2); MONOCYTES # (AUTO) 0.8 10^3/uL (0.0-1.0); MONOCYTES % (AUTO) 8 % (0-12); NEUTROPHILS # (AUTO) 4.2 10^3/uL (1.8-7.8); NEUTROPHILS % (AUTO) 43 % (42-75); PLATELET COUNT 397 10^3/uL (130-400); WHITE BLOOD COUNT 9.8 10^3/uL (4.3-11.0)
[2023-03-07 08:01] LABS: ALBUMIN 3.5 GM/DL (3.2-4.5); POTASSIUM 4.3 MMOL/L (3.6-5.0)
[2023-03-07 08:02] LABS: CALCIUM 8.6 MG/DL (8.5-10.1)
[2023-03-07 08:04] LABS: TOTAL PROTEIN 6.5 GM/DL (6.4-8.2)
[2023-03-07 08:05] LABS: BILIRUBIN,TOTAL 0.2 MG/DL (0.1-1.0)
[2023-03-07 08:07] LABS: CREATININE SERUM 2.46 MG/DL (0.60-1.30)
[2023-03-07 08:10] LABS: MAGNESIUM 2.2 MG/DL (1.6-2.4)
[2023-03-07 08:58] LABS: PROTHROMBIN TIME PATIENT 13.6 SEC (12.2-14.7)
[2023-03-07 09:56] VITALS: BP 132/80
== END 2023-03-07 10:02 | disposition home or self-care (01) ==
LOC: EDUNIT# 07:09 → ER 07:10
DX: R07.89 Other chest pain (principal); R06.02 Shortness of breath; I51.7 Cardiomegaly; E66.9 Obesity, unspecified; Z68.38 Body mass index [BMI] 38.0-38.9, adult; Z86.16 Personal history of COVID-19; Z87.891 Personal history of nicotine dependence
CPT/HCPCS: 36415; 71045; 80053; 83735; 83874; 83880; 84484; 85025; 85610; 85730; 86141; 93005; 93041

== ENCOUNTER 2023-04-23 10:31 | Observation (INO) | payer MEDICARE, MEDICAID ==
[~2023-04-23] VITALS: Ht 167 cm; Wt 100.3 kg
[~2023-04-23 10:31] MED LIST changes: -ORPH100T PO; +ORPH100T3 PO
[2023-04-23 11:23] LABS: BASOPHILS # (AUTO) 0.1 10^3/uL (0.0-0.1); BASOPHILS % (AUTO) 1 % (0-10); EOSINOPHILS # (AUTO) 0.2 10^3/uL (0.0-0.3); EOSINOPHILS % (AUTO) 2 % (0-10); HEMATOCRIT 44 % (35-52); HEMOGLOBIN 14.1 g/dL (11.5-16.0); LYMPHOCYTES # (AUTO) 3.4 10^3/uL (1.0-4.0); LYMPHOCYTES % (AUTO) 42 % (12-44); MEAN CORPUSCULAR HEMOGLOBIN 29 pg (25-34); MEAN CORPUSCULAR HGB CONC 32 g/dL (32-36); MEAN CORPUSCULAR VOLUME 88 fL (80-99); MEAN PLATELET VOLUME 10.3 fL (9.0-12.2); MONOCYTES # (AUTO) 0.5 10^3/uL (0.0-1.0); MONOCYTES % (AUTO) 7 % (0-12); NEUTROPHILS # (AUTO) 4.1 10^3/uL (1.8-7.8); NEUTROPHILS % (AUTO) 49 % (42-75); PLATELET COUNT 226 10^3/uL (130-400); WHITE BLOOD COUNT 8.3 10^3/uL (4.3-11.0)
[2023-04-23 11:26] LABS: ALBUMIN 3.5 GM/DL (3.2-4.5); POTASSIUM 4.3 MMOL/L (3.6-5.0)
[2023-04-23 11:27] LABS: CALCIUM 9.2 MG/DL (8.5-10.1)
--- NOTE | 2023-04-23 11:28 | ED Respiratory ---
General Chief Complaint: Chest Pain Stated Complaint: SOA/CHEST PAIN Nursing Triage Note: PT PRESENTS TO ED VIA POV FROM HOME WITH COMPLAINTS OF SOA AND CP SINCE YESTERAY. PT REPORTS PAIN AND SOA IS WORSE WITH EXERTION AND IF SHE LAYS FLAT. PT REPORTS SHE FEELS LIKE THERE IS FLUID IN HER CHEST. Source: patient, family Exam Limitations: no limitations History of Present Illness Date Seen by Provider: April 23, 2023 Time Seen by Provider: 11:00 Initial Comments 32-year-old female presents the ER with complaints of shortness of air and chest pain starting last night. She complains of chest pain across her whole upper chest, states the pain has been constant since last night, but is worse with taking a deep breath. She describes the chest pain as a pressure as well as a "swooshing around in my chest like water." She reports that her shortness of air and chest pain is worse with exertion. Her O2 saturation was found to be 85% on room air upon arrival. Oxygen increased to mid 90s on 3 L via nasal cannula. She states that last night she felt like she was getting a cold. She also reports she had a tick on her which she noticed yesterday, she pulled it off. Uncertain how long it was there. Denies fevers, headache, body aches, cough, abdominal pain, nausea, vomiting, diarrhea. Significant medical history includes heart failure, chronic kidney disease, hypertension, hyperlipidemia, cardiac arrest. Most of history is related to history of IV meth use. She denies recent meth use, but states that she does hang around "sketchy people" who could have been something in her drink. States she would like to be drug tested. 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 She also has a pacemaker/defibrillator, states that there are issues with it due to exposed wires. Her provider in [place] is supposed to fix it at some point. Allergies and Home Medications Allergies Coded Allergies: JIA Inhibitors (Verified Allergy, Severe, 05/22/19) ARB-Angiotensin Receptor Antagonist (Verified Allergy, Severe, 05/22/19) amoxicillin (Verified Allergy, Unknown, 05/28/21) baclofen (Unverified Allergy, Unknown, 05/22/19) ON H&P clavulanic acid (Verified Allergy, Unknown, 05/28/21) phenazopyridine (Unverified Allergy, Unknown, 05/22/19) ON H&P Patient Home Medication List Home Medication List Reviewed: Yes Albuterol Sulfate (Rx-Proair) 8 Gm Hfa.aer.ad, 2 PUFF INH Q6H PRN for SHORTNESS OF BREATH, (Reported) Entered as Reported by: BROWN SCHULER on 03/21/15 1434 Last Action: Continued Amlodipine Besylate (Amlodipine Besylate) 10 Mg Tablet, 10 MG PO DAILY, (Reported) Entered as Reported by: TUNG HELTON on 07/23/15 0737 Last Action: Continued Apixaban (Eliquis) 5 Mg Tablet, 5 MG PO BID Prescribed by: RALPH DELCID on 11/01/18 1856 Last Action: Continued Aspirin (Aspirin EC) 81 Mg Tablet.dr, 81 MG PO DAILY Prescribed by: MEGGAN GARCIA on 04/25/23 141 Biotin (Biotin) 5,000 Mcg Tab.rapdis, (Reported) Entered as Reported by: MIKY CAMPBELL on 05/22/192116 Cyclobenzaprine HCl (Cyclobenzaprine HCl) 10 Mg Tablet, 10 MG PO BID PRN for chest wall pain/muscle spasm Prescribed by: EDISON CHAMBERLAIN on 12/24/21 0206 Last Action: Continued Famotidine (Famotidine) 20 Mg Tablet, (Reported) Entered as Reported by: TALISHA CELIS on 08/05/181810 Furosemide (Lasix) 40 Mg Tablet, 40 MG PO DAILY Prescribed by: MEGGAN GARCIA on 04/25/23 141 Gabapentin (Gabapentin) 100 Mg Capsule, 100 MG PO Q8H PRN for burning pain/neuropathy thumb Prescribed by: EDISON CHAMBERLAIN on 04/14/22 0337 Last Action: Continued Metoprolol Tartrate (Metoprolol Tartrate) 50 Mg Tablet, 50 MG PO BID Prescribed by: FELECIA FORTUNE on 07/24/15 0841 Last Action: Continued Potassium Chloride (Potassium Chloride) 10 Meq Tab.er.prt, 10 MEQ PO DAILY Prescribed by: MEGGAN GARCIA on 04/25/23 1414 Ropinirole HCl (Ropinirole HCl) 0.5 Mg Tablet, (Reported) Entered as Reported by: TALISHA CELIS on 08/05/181809 [Clonidine Hydrochloride .2 Mg ] , (Reported) Entered as Reported by: MIKY CAMPBELL on 05/22/192115 [Meloxicam 15 Mg Tabs] , (Reported) Entered as Reported by: MIKY CAMPBELL on 05/22/192115 [Metoprolol Tartrate 100 Mg Tab] , (Reported) Entered as Reported by: MIKY CAMPBELL on 05/22/191929 [Olanzapine 10 Mg Tabs] , (Reported) Entered as Reported by: MIKY CAMPBELL on 05/22/192115 [Oxcarbazepine 300 Mg Tabs] , (Reported) Entered as Reported by: MIKY CAMPBELL on 05/22/192115 Discontinued Medications Furosemide (Lasix) 20 Mg Tablet, 20 MG PO DAILY Prescribed by: FELECIA FORTUNE on 02/28/231039 Last Action: Continued Potassium Chloride (K-Tab ER) 10 Meq Tablet.er, 10 MEQ PO DAILY Prescribed by: FELECIA FORTUNE on 02/28/231039 Last Action: Continued Review of Systems Review of Systems Constitutional: see HPI Past Vvvwqju-Bguody-Oshduo Hx Patient Social History Tobacco Use?: No Substance use?: No Alcohol Use?: No Pt feels they are or have been: No Immunizations Up To Date Tetanus Booster (TDap): Unknown PED Vaccines UTD: Yes First/Initial COVID19 Vaccinat: X3 Second COVID19 Vaccination Adair: Pfizer Third COVID19 Vaccination Date: [facility] Seasonal Allergies Seasonal Allergies: No Past Medical History Surgery/Hospitalization HX: DEFIBRILLATOR, PACEMAKER REMOVED, HEART FAILURE, HTN, HIGH CHOLESTEROL, Surgeries: Yes (PACER/DEFIB 2014; DEFIB PLACED 05/10/19. PEG TUBE- REMOVED;UTERINE ABLATION) Abdominal, Section, Defibrillator, Gallbladder, Hysterectomy, Pacemaker Respiratory: Yes (ARDS-CODED; PNEUMOTHORAX 06/2015) Pneumonia, Chronic Bronchitis Currently Using CPAP: No Currently Using BIPAP: No Cardiac: Yes (PULMONARY EDEMA/CARDIAC CAUSE-R/T ATRIAL THROMBUS; CARDIAC ARREST;V-FIB ) Cardiomyopathy, Endocarditis, Hypertension, Valvular Heart Disease Neurological: Yes (encephalopathy-hypoxia, anoxic brain injury; POOR MEMORY;SLURRED SPEECH) Reproductive Disorders: Yes (ENDOMETRIAL ABLATION) Female Reproductive Disorders: Menstrual Problems Sexually Transmitted Disease: No Genitourinary: Yes (BASELINE CREATININE BETWEEN 2 & 3) Renal Failure Gastrointestinal: Yes Gastroesophageal Reflux Musculoskeletal: Yes (GAIT DISTURBANCE) Endocrine: No (OBESITY) HEENT: No Loss of Vision: Denies Hearing Impairment: Denies Cancer: No Psychosocial: Yes (SUBSTANCE ABUSE) Anxiety, Bipolar, Depression Integumentary: No Blood Disorders: Yes (ANEMIA) Family Medical History Patient reports no known family medical history. 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 SHE HAS HAD A DEFIBRILLATOR IN PLACE SINCE AGE 24. Physical Exam Vital Signs - First Documented Capillary Refill : Less Than 3 Seconds Height: 5'3.00" Weight: 234lbs. 0oz. 106.185367mi; 35.00 BMI Method:Stated General Appearance: WD/WN Neck: supple, normal inspection Respiratory: no respiratory distress, no accessory muscle use, decreased breath sounds, other (Chest is very tender to palpation) Cardiovascular: regular rate, rhythm Extremities: normal range of motion, normal inspection, no pedal edema Neurologic/Psychiatric: alert, normal mood/affect Skin: normal color, warm/dry Progress/Results/Core Measures Suspected Sepsis SIRS Temperature: Pulse: 81 Respiratory Rate: 16 Laboratory Tests 04/23/23 11:02: White Blood Count 8.3 Blood Pressure 154 /138 Mean: 143 Laboratory Tests 04/23/23 11:02: Creatinine 2.47H, INR Comment 0.9, Platelet Count 226, Total Bilirubin 0.2 Results/Orders Lab Results Laboratory Tests Test 04/23/23 11:02 04/23/23 11:22 04/23/23 12:46 Range/Units White Blood Count 8.3 4.3-11.0 10^3/uL Red Blood Count 4.95 3.80-5.11 10^6/uL Hemoglobin 14.1 11.5-16.0 g/dL Hematocrit 44 35-52 % Mean Corpuscular Volume 88 80-99 fL Mean Corpuscular Hemoglobin 29 25-34 pg Mean Corpuscular Hemoglobin Concent 32 32-36 g/dL Red Cell Distribution Width 15.2 H 10.0-14.5 % Platelet Count 226 130-400 10^3/uL Mean Platelet Volume 10.3 9.0-12.2 fL Immature Granulocyte % (Auto) 0 % Neutrophils (%) (Auto) 49 42-75 % Lymphocytes (%) (Auto) 42 12-44 % Monocytes (%) (Auto) 7 0-12 % Eosinophils (%) (Auto) 2 0-10 % Basophils (%) (Auto) 1 0-10 % Neutrophils # (Auto) 4.1 1.8-7.8 10^3/uL Lymphocytes # (Auto) 3.4 1.0-4.0 10^3/uL Monocytes # (Auto) 0.5 0.0-1.0 10^3/uL Eosinophils # (Auto) 0.2 0.0-0.3 10^3/uL Basophils # (Auto) 0.1 0.0-0.1 10^3/uL Immature Granulocyte # (Auto) 0.0 0.0-0.1 10^3/uL Prothrombin Time 12.4 12.2-14.7 SEC INR Comment 0.9 0.8-1.4 Activated Partial Thromboplast Time 22 L 24-35 SEC D-Dimer 0.69 H 0.00-0.49 UG/ML Sodium Level 138 135-145 MMOL/L Potassium Level 4.3 3.6-5.0 MMOL/L Chloride Level 108 H 98-107 MMOL/L Carbon Dioxide Level 19 L 21-32 MMOL/L Anion Gap 11 5-14 MMOL/L Blood Urea Nitrogen 19 H 7-18 MG/DL Creatinine 2.47 H 0.60-1.30 MG/DL Estimat Glomerular Filtration Rate 26 BUN/Creatinine Ratio 8 Glucose Level 100 70-105 MG/DL Calcium Level 9.2 8.5-10.1 MG/DL Corrected Calcium 9.6 8.5-10.1 MG/DL Magnesium Level 2.1 1.6-2.4 MG/DL Total Bilirubin 0.2 0.1-1.0 MG/DL Aspartate Amino Transf (AST/SGOT) 32 5-34 U/L Alanine Aminotransferase (ALT/SGPT) 21 0-55 U/L Alkaline Phosphatase 60 40-136 U/L Troponin I 0.189 H <0.028 NG/ML B-Type Natriuretic Peptide 721.8 H <100.0 PG/ML Total Protein 6.9 6.4-8.2 GM/DL Albumin 3.5 3.2-4.5 GM/DL Influenza Type A (RT-PCR) Not Detected Not Detecte Influenza Type B (RT-PCR) Not Detected Not Detecte SARS-CoV-2 RNA (RT-PCR) Not Detected Not Detecte Urine Opiates Screen NEGATIVE NEGATIVE Urine Oxycodone Screen NEGATIVE NEGATIVE Urine Methadone Screen NEGATIVE NEGATIVE Urine Propoxyphene Screen NEGATIVE NEGATIVE Urine Barbiturates Screen NEGATIVE NEGATIVE Ur Tricyclic Antidepressants Screen NEGATIVE NEGATIVE Urine Phencyclidine Screen NEGATIVE NEGATIVE Urine Amphetamines Screen POSITIVE H NEGATIVE Urine Methamphetamines Screen POSITIVE H NEGATIVE Urine Benzodiazepines Screen NEGATIVE NEGATIVE Urine Cocaine Screen NEGATIVE NEGATIVE Urine Cannabinoids Screen NEGATIVE NEGATIVE My Orders Orders - ROQUE HENAO APRN Ekg Tracing (04/23/23 11:00) Cbc With Automated Diff (04/23/23 11:17) Magnesium (04/23/23 11:17) Chest 1 View, Ap/Pa Only (04/23/23 11:17) Comprehensive Metabolic Panel (04/23/23 11:17) Protime With Inr (04/23/23 11:17) Partial Thromboplastin Time (04/23/23 11:17) O2 (04/23/23 11:17) Monitor-Rhythm Ecg Trace Only (04/23/23 11:17) Ed Iv/Invasive Line Start (04/23/23 11:17) Bnp [place] (04/23/23 11:17) Fibrin Degradation Products (04/23/23 11:17) Troponin I [place] (04/23/23 11:17) Covid 19 Inhouse Test (04/23/23 11:18) Influenza A And B By Pcr (04/23/23 11:18) Furosemide Injection (Lasix Injection) (04/23/23 12:15) Drug Screen Stat (Urine) (04/23/23 12:11) Ed Admission (Communication) (04/23/23 12:15) Medications Given in ED Current Medications Medications Dose Ordered Sig/Mikal Route Start Time Stop Time Status Last Admin Dose Admin Furosemide 80 mg ONCE ONCE IVP 04/23/23 12:15 04/23/23 12:16 DC 04/23/23 12:50 80 MG Vital Signs/I&O 04/23/23 04/23/23 11:05 11:05 Temp 35.7 Pulse 81 Resp 16 B/P (MAP) 154/138 (143) Pulse Ox 93 94 O2 Delivery Nasal Cannula Nasal Cannula O2 Flow Rate 3.00 3.00 Capillary Refill : Less Than 3 Seconds Blood Pressure Mean: 143 Progress Note : Progress Note Patient seen and evaluated, resting in bed, mild distress. Based on exam and symptoms, work-up initiated including CBC, CMP, magnesium, coags, D-dimer, BNP, chest x-ray, EKG, COVID/flu swab. EKG shows new prolonged NJ interval. 1200 labs and x-ray reviewed. CBC grossly normal. CMP shows slightly elevated chloride 108, slightly decreased CO2 19, slightly elevated BUN 19, elevated creatinine 2.47, decreased GFR 26. Kidney function similar to labs drawn in February. Troponin elevated 0.189. BNP elevated 721.8. D-dimer slightly elevated 0.69. I called and spoke with Dr. Cao, cardiology. He recommends admission with 80 mg IV Lasix twice a day and potassium replacement as needed. 1213 I called and spoke with Dr. Garcia, [facility] hospitalist, for admission. She agrees to admit patient to cardiac stepdown. She will place admission orders. ECG Initial ECG Impression Date: April 23, 2023 Initial ECG Impression Time: 10:59 Initial ECG Rate: 78 Initial ECG Rhythm: Normal Sinus Initial ECG Intervals: NJ (211) Initial ECG Impression: 1st Degree AV Block Initial ECG Comparisson: Changed Comment New prolonged NJ interval Diagnostic Imaging Diagonstic Imaging: Xray Plain Films/CT/US/NM/MRI: chest Comments [facility], [place] NAME: SAL [facility]ST [facility] REC#: [id number] PT STATUS: REG ER : 1990 PHYSICIAN: ROQUE HENAO APRN ADMIT DATE: 04/23/23/ER Draft Date of Exam:04/23/23 CHEST 1 VIEW, AP/PA ONLY Indication: Chest pain. Time of Exam: 11:20 AM Correlation is made with prior chest from 03/07/2023. The heart is enlarged and stable. Cardiac defibrillator remains in place. Lungs appear to be clear although there does appear to be some mild central congestion. There is no effusion or pneumothorax. Impression: Cardiomegaly and central congestion. Dictated on workstation # [id number] Dict: 04/23/23 1134 Trans: 04/23/23 1138 [facility] [id number] Interpreted by: NEELAM OTERO MD Electronically signed by: Departure Communication (Admissions) Time/Spoke to Admitting Phy: 12:13 Dr. Garcia, hospitalist, see progress note. Time/Spoke to Consulting Phy: 12:00 Dr. Cao, cardiology, see progress note. Impression Primary Impression: CHF exacerbation Qualified Codes: I50.9 - Heart failure, unspecified Additional Impressions: Elevated troponin Chronic kidney disease Qualified Codes: N18.9 - Chronic kidney disease, unspecified Hypoxia Disposition: ADMITTED INPATIENT Condition: Stable Admissions Decision to Admit Reason: Admit from ER (General) Decision to Admit/Date: April 23, 2023 Time/Decision to Admit Time: 12:00 Departure-Patient Inst. Referrals: BROWN NGUYEN APRN (PCP/Family) Primary Care Physician Scripts Potassium Chloride (Potassium Chloride) 10 Meq Tab.er.prt 10 MEQ PO DAILY, #30 EA Prov: MEGGAN GARCIA DO 04/25/23 Furosemide (Lasix) 40 Mg Tablet 40 MG PO DAILY, #30 TAB Prov: MEGGAN GARCIA DO 04/25/23 Aspirin (Aspirin EC) 81 Mg Tablet. 81 MG PO DAILY, #30 TAB Prov: MEGGAN GARCIA DO 04/25/23 ROQUE HENAO APRN April 23, 2023 11:28
[2023-04-23 11:29] LABS: TOTAL PROTEIN 6.9 GM/DL (6.4-8.2)
[2023-04-23 11:30] LABS: BILIRUBIN,TOTAL 0.2 MG/DL (0.1-1.0); INR 0.9 (0.8-1.4); PROTHROMBIN TIME PATIENT 12.4 SEC (12.2-14.7)
[2023-04-23 11:32] LABS: CREATININE SERUM 2.47 MG/DL (0.60-1.30)
[2023-04-23 11:33] LABS: FIBRIN DEGRADATION PRODUCTS 0.69 UG/ML (0.00-0.49)
[2023-04-23 11:35] LABS: MAGNESIUM 2.1 MG/DL (1.6-2.4)
--- NOTE | 2023-04-23 11:38 | Diagnostic Imaging Report ---
Indication: Chest pain. Time of Exam: 11:20 AM Correlation is made with prior chest from 03/07/2023. The heart is enlarged and stable. Cardiac defibrillator remains in place. Lungs appear to be clear although there does appear to be some mild central congestion. There is no effusion or pneumothorax. Impression: Cardiomegaly and central congestion. Dictated by: Dictated on workstation # [id number]
[2023-04-23] MEDS ORDERED: FUROSEMIDE 40 MG/4 ML INJ (LASIX) IVP ONE (12:15)
[2023-04-23 13:06] LABS: AMPHETAMINE SCREEN, URINE POSITIVE (NEGATIVE); BARBITURATE SCREEN URINE NEGATIVE (NEGATIVE); BENZODIAZEPINES SCREEN URINE NEGATIVE (NEGATIVE); CANNABINOID SCREEN, URINE NEGATIVE (NEGATIVE); COCAINE SCREEN URINE NEGATIVE (NEGATIVE); METHADONE STAT NEGATIVE (NEGATIVE); OPIATE SCREEN URINE NEGATIVE (NEGATIVE); OXYCODONE STAT NEGATIVE (NEGATIVE); PROPOXYPHENE STAT NEGATIVE (NEGATIVE); TRICYCLIC ANTIDEPRESSANTS SCRE NEGATIVE (NEGATIVE)
[2023-04-23] MEDS ORDERED: ALPRAZolam 0.25 MG (XANAX) TAB PO PRN (14:00)
[2023-04-23] MEDS ORDERED: CALCIUM CARBONATE 500 MG (TUMS) TAB.CHEW PO PRN (14:00)
[2023-04-23] MEDS ORDERED: ONDANSETRON 4 MG (ZOFRAN) ORAL DISSOLVE TAB PO PRN (14:00)
[2023-04-23] MEDS ORDERED: polyethylene glycoL POWDER 17 GM (MIRALAX) PACK PO PRN (14:00)
[2023-04-23] MEDS ORDERED: cloNIDine 0.1 MG (CATAPRES) TAB PO PRN (14:00)
[2023-04-23] MEDS ORDERED: diphenhydrAMINE 25 MG TAB (BENADRYL) PO PRN (14:00)
[2023-04-23] MEDS ORDERED: diphenhydrAMINE 50 MG/ML INJ (BENADRYL) IVP PRN (14:00)
[2023-04-23] MEDS ORDERED: HYDROmorphone 2 MG/ML VIAL (DILAUDID) IV PRN (14:00)
[2023-04-23] MEDS ORDERED: PATIENT MAY USE OWN MEDS, ALL PO SCH (14:00)
[2023-04-23] MEDS ORDERED: MILK OF MAGNESIA 400 MG/5 ML 30 ML UDC PO PRN (14:00)
[2023-04-23] MEDS ORDERED: ANTACID SUSP 30 ML UDC (MYLANTA) PO PRN (14:00)
[2023-04-23] MEDS ORDERED: LACTULOSE SYRUP 10GM/15ML (ENULOSE) 30ML UDC PO PRN (14:00)
[2023-04-23] MEDS ORDERED: BISACODYL 10 MG SUPP (DULCOLAX) PR PRN (14:00)
[2023-04-23] MEDS ORDERED: NITROGLYCERIN 0.4 MG SL TABS BTL 25'S SL PRN (14:00)
[2023-04-23] MEDS ORDERED: ONDANSETRON 4 MG/2 ML (SDV) Z0FRAN IV PRN (14:00)
--- NOTE | 2023-04-23 14:16 | Consultation-Cardiology ---
HPI-Cardiology Cardiology Consultation: Date of Consultation 04/23/23 Date of Admission Attending Physician Brown Fonseca Aprn Admitting Physician Admitting Physician: Shawna Gray DO Attending Physician: Shawna Gray DO Consulting Physician Davida SORIA MD HPI: Time Seen by a Provider: 14:16 Chief Complaint: Shortness of breath This is a 32-year-old lady with history of nonischemic dilated cardiomyopathy with history of cardiac arrest. Has history of ICD. Presents with worsening shortness of breath. Weight gain. History of chronic systolic congestive heart failure, chronic kidney disease, hyperlipidemia, hypertension, anoxic encephalopathy postcardiac arrest, drug abuse. Review of Systems-Cardiology Review of Systems Constitutional: no symptoms reported Eyes: no symptoms reported Ears/Nose/Throat: no symptoms reported Respiratory: orthopnea Cardiovascular: no symptoms reported, edema Gastrointestinal: no symptoms reported Genitourinary: no symptoms reported Musculoskeletal: no symptoms reported Skin: no symptoms reported Psychiatric/Neurological: no symptoms reported Hematologic: no symptoms reported FDO-Tujhhw-Khkmgn Hx Patient Social History Former smoker/When Quit: Jan 23, 2015 2nd Hand Smoke Exposure: No Have you traveled recently?: No Alcohol Use?: No Pt feels they are or have been: No Immunizations Up To Date Tetanus Booster (TDap): Unknown Date of Pneumonia Vaccine: Sep 09, 2018 Date of Influenza Vaccine: Sep 08, 2022 Past Medical History PMH As described under Assessment. Family Medical History Family Medical History: She does not report fam h/o premature CAD or SCD Family History: Patient reports no known family medical history. Allergies and Home Medications Allergies Coded Allergies: JIA Inhibitors (Verified Allergy, Severe, 05/22/19) ARB-Angiotensin Receptor Antagonist (Verified Allergy, Severe, 05/22/19) amoxicillin (Verified Allergy, Unknown, 05/28/21) baclofen (Unverified Allergy, Unknown, 05/22/19) ON H&P clavulanic acid (Verified Allergy, Unknown, 05/28/21) phenazopyridine (Unverified Allergy, Unknown, 05/22/19) ON H&P Patient Home Medication List Home Medication List Reviewed: Yes Albuterol Sulfate (Rx-Proair) 8 Gm Hfa.aer.ad, 2 PUFF INH Q6H PRN for SHORTNESS OF BREATH, (Reported) Entered as Reported by: BROWN SCHULER on 03/21/15 1434 Amlodipine Besylate (Amlodipine Besylate) 10 Mg Tablet, 10 MG PO DAILY, (Reported) Entered as Reported by: TUNG HELTON on 07/23/15 0737 Apixaban (Eliquis) 5 Mg Tablet, 5 MG PO BID Prescribed by: RALPH DELCID on 11/01/18 1856 Biotin (Biotin) 5,000 Mcg Tab.rapdis, (Reported) Entered as Reported by: MIKY CAMPBELL on 05/22/192116 Cyclobenzaprine HCl (Cyclobenzaprine HCl) 10 Mg Tablet, 10 MG PO BID PRN for chest wall pain/muscle spasm Prescribed by: EDISON CHAMBERLAIN on 12/24/21 0206 Famotidine (Famotidine) 20 Mg Tablet, (Reported) Entered as Reported by: TALISHA CELIS on 08/05/181810 Furosemide (Lasix) 20 Mg Tablet, 20 MG PO DAILY Prescribed by: FELECIA PATTERSON on 02/28/23 1040 Gabapentin (Gabapentin) 100 Mg Capsule, 100 MG PO Q8H PRN for burning pain/neuropathy thumb Prescribed by: EDISON CHAMBERLAIN on 04/14/22 0337 Metoprolol Tartrate (Metoprolol Tartrate) 50 Mg Tablet, 50 MG PO BID Prescribed by: FELECIA PATTERSON on 07/24/15 0841 Potassium Chloride (K-Tab ER) 10 Meq Tablet.er, 10 MEQ PO DAILY Prescribed by: FELECIA PATTERSON on 02/28/23 1040 Ropinirole HCl (Ropinirole HCl) 0.5 Mg Tablet, (Reported) Entered as Reported by: TALISHA CELIS on 08/05/181809 [Clonidine Hydrochloride .2 Mg ] , (Reported) Entered as Reported by: MIKY CAMPBELL on 05/22/192115 [Meloxicam 15 Mg Tabs] , (Reported) Entered as Reported by: MIKY CAMPBELL on 05/22/192115 [Metoprolol Tartrate 100 Mg Tab] , (Reported) Entered as Reported by: MIKY CAMPBELL on 05/22/191929 [Olanzapine 10 Mg Tabs] , (Reported) Entered as Reported by: MIKY CAMPBELL on 05/22/192115 [Oxcarbazepine 300 Mg Tabs] , (Reported) Entered as Reported by: MIKY CONTRERASONALD on 05/22/19 2307 Exam Vital Signs Vital Signs Date Time Temp Pulse Resp B/P (MAP) Pulse Ox O2 Delivery O2 Flow Rate FiO2 04/23/23 14:15 84 04/23/23 13:15 16 139/108 92 Nasal Cannula 3.00 04/23/23 11:05 35.7 Physical Exam Constitutional: No malaise or fatigue. Chest examination: Bilateral air entry. CVS: Regular heart rhythm. No murmur. Mild peripheral edema. Labs Laboratory Tests Test 04/23/23 11:02 04/23/23 11:22 04/23/23 12:46 Range/Units White Blood Count 8.3 4.3-11.0 10^3/uL Red Blood Count 4.95 3.80-5.11 10^6/uL Hemoglobin 14.1 11.5-16.0 g/dL Hematocrit 44 35-52 % Mean Corpuscular Volume 88 80-99 fL Mean Corpuscular Hemoglobin 29 25-34 pg Mean Corpuscular Hemoglobin Concent 32 32-36 g/dL Red Cell Distribution Width 15.2 H 10.0-14.5 % Platelet Count 226 130-400 10^3/uL Mean Platelet Volume 10.3 9.0-12.2 fL Immature Granulocyte % (Auto) 0 % Neutrophils (%) (Auto) 49 42-75 % Lymphocytes (%) (Auto) 42 12-44 % Monocytes (%) (Auto) 7 0-12 % Eosinophils (%) (Auto) 2 0-10 % Basophils (%) (Auto) 1 0-10 % Neutrophils # (Auto) 4.1 1.8-7.8 10^3/uL Lymphocytes # (Auto) 3.4 1.0-4.0 10^3/uL Monocytes # (Auto) 0.5 0.0-1.0 10^3/uL Eosinophils # (Auto) 0.2 0.0-0.3 10^3/uL Basophils # (Auto) 0.1 0.0-0.1 10^3/uL Immature Granulocyte # (Auto) 0.0 0.0-0.1 10^3/uL Prothrombin Time 12.4 12.2-14.7 SEC INR Comment 0.9 0.8-1.4 Activated Partial Thromboplast Time 22 L 24-35 SEC D-Dimer 0.69 H 0.00-0.49 UG/ML Sodium Level 138 135-145 MMOL/L Potassium Level 4.3 3.6-5.0 MMOL/L Chloride Level 108 H 98-107 MMOL/L Carbon Dioxide Level 19 L 21-32 MMOL/L Anion Gap 11 5-14 MMOL/L Blood Urea Nitrogen 19 H 7-18 MG/DL Creatinine 2.47 H 0.60-1.30 MG/DL Estimat Glomerular Filtration Rate 26 BUN/Creatinine Ratio 8 Glucose Level 100 70-105 MG/DL Calcium Level 9.2 8.5-10.1 MG/DL Corrected Calcium 9.6 8.5-10.1 MG/DL Magnesium Level 2.1 1.6-2.4 MG/DL Total Bilirubin 0.2 0.1-1.0 MG/DL Aspartate Amino Transf (AST/SGOT) 32 5-34 U/L Alanine Aminotransferase (ALT/SGPT) 21 0-55 U/L Alkaline Phosphatase 60 40-136 U/L Troponin I 0.189 H <0.028 NG/ML B-Type Natriuretic Peptide 721.8 H <100.0 PG/ML Total Protein 6.9 6.4-8.2 GM/DL Albumin 3.5 3.2-4.5 GM/DL Influenza Type A (RT-PCR) Not Detected Not Detecte Influenza Type B (RT-PCR) Not Detected Not Detecte SARS-CoV-2 RNA (RT-PCR) Not Detected Not Detecte Urine Opiates Screen NEGATIVE NEGATIVE Urine Oxycodone Screen NEGATIVE NEGATIVE Urine Methadone Screen NEGATIVE NEGATIVE Urine Propoxyphene Screen NEGATIVE NEGATIVE Urine Barbiturates Screen NEGATIVE NEGATIVE Ur Tricyclic Antidepressants Screen NEGATIVE NEGATIVE Urine Phencyclidine Screen NEGATIVE NEGATIVE Urine Amphetamines Screen POSITIVE H NEGATIVE Urine Methamphetamines Screen POSITIVE H NEGATIVE Urine Benzodiazepines Screen NEGATIVE NEGATIVE Urine Cocaine Screen NEGATIVE NEGATIVE Urine Cannabinoids Screen NEGATIVE NEGATIVE ECG Impression ECG Initial ECG Rhythm: Normal Sinus Initial ECG Impression: Normal A/P-Cardiology Assessment/Admission Diagnosis Dyspnea Acute on chronic CHF HTN CKD Plan Acute on chronic systolic CHF Nonischemic cardiomyopathy. Maintained on beta satnam and Entresto as outpatient. However current med list does not show Entresto on the list - 2D echo in October 2021: ejection fraction 30 to 35%, hypokinesia at the apex and lateral wall, mild to moderate tricuspid regurgitation, PA pressure 30 to 35 mmHg. - Echo on 02/27/23: LVEF 40-45%,mild enlargement of both atria, mod MR, PASP 40-45 mmHg IV diuretics History of mid left atrial thrombus on an echo at [facility]. Date unknown. She is maintained on Eliquis H/o ICD implantation and repositioning done in August 24, 2015. Another ICD revision with new pace/sense lead replacement done by Dr. Castanon on May 10, 2019. Then another repositioning of the lead and then had replacement of the lead. ICD interrogation by Dr Patterson on December 01, 2022: good sensing and capture activity. Battery longevity 17 months, SVC lead malfunction reported. Referred to EP in [place]. Hypertension, on amlodipine. 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
[2023-04-23 14:27] VITALS: BP 154/138
[2023-04-23] MEDS: FUROSEMIDE 40 MG/4 ML INJ (LASIX) IVP SCH (15:39)
[2023-04-23] MEDS: ACETAMINOPHEN 325 MG TABLET PO PRN ×2 (15:39→23:44)
[2023-04-23 15:56] VITALS: BP 152/110
[2023-04-23] MEDS ORDERED: RT-ALBUTEROL SULF 2.5 MG/3 ML PRE-MIX VIAL INH PRN (17:00)
[2023-04-23 19:56] VITALS: BP 140/106
[2023-04-23] MEDS: SENNOSIDES 8.6 MG (SENOKOT) TAB PO SCH (20:58)
[2023-04-23] MEDS: DOCUSATE SODIUM 100 MG (COLACE) CAP PO SCH (20:58)
[2023-04-23] MEDS: RT-ALBUTEROL SULF 2.5 MG/3 ML PRE-MIX VIAL INH SCH (21:55)
[2023-04-23 23:34] VITALS: BP 151/92
[2023-04-23] MEDS: MELATONIN 3 MG TABLET PO PRN (23:43)
[2023-04-24] VITALS (7 sets, daily range): BP systolic 134–155; BP diastolic 89–114
[2023-04-24] MEDS: RT-ALBUTEROL SULF 2.5 MG/3 ML PRE-MIX VIAL INH SCH ×4 (02:05→21:46)
[2023-04-24 05:33] LABS: BASOPHILS % (AUTO) 1 % (0-10); EOSINOPHILS # (AUTO) 0.2 10^3/uL (0.0-0.3); EOSINOPHILS % (AUTO) 3 % (0-10); HEMATOCRIT 40 % (35-52); HEMOGLOBIN 12.9 g/dL (11.5-16.0); LYMPHOCYTES # (AUTO) 2.7 10^3/uL (1.0-4.0); LYMPHOCYTES % (AUTO) 50 % (12-44); MEAN CORPUSCULAR HEMOGLOBIN 28 pg (25-34); MEAN CORPUSCULAR HGB CONC 32 g/dL (32-36); MEAN CORPUSCULAR VOLUME 88 fL (80-99); MEAN PLATELET VOLUME 9.5 fL (9.0-12.2); MONOCYTES # (AUTO) 0.4 10^3/uL (0.0-1.0); MONOCYTES % (AUTO) 8 % (0-12); NEUTROPHILS # (AUTO) 2.1 10^3/uL (1.8-7.8); NEUTROPHILS % (AUTO) 38 % (42-75); PLATELET COUNT 268 10^3/uL (130-400); WHITE BLOOD COUNT 5.5 10^3/uL (4.3-11.0)
[2023-04-24 05:58] LABS: BILIRUBIN,TOTAL 0.2 MG/DL (0.1-1.0); CALCIUM 8.8 MG/DL (8.5-10.1); CREATININE SERUM 2.94 MG/DL (0.60-1.30); POTASSIUM 3.3 MMOL/L (3.6-5.0); TOTAL PROTEIN 5.6 GM/DL (6.4-8.2)
[2023-04-24] MEDS: FUROSEMIDE 40 MG/4 ML INJ (LASIX) IVP SCH ×2 (06:48→16:23)
--- NOTE | 2023-04-24 07:11 | History & Physical-Hospitalist ---
History of Present Illness HPI/Chief Complaint Chief complaint: Dyspnea HPI: This is a 32-year-old female clinic patient of [facility] who also sees cardiology and nephrology who has a past medical history of congestive heart failure and chronic kidney disease who has reduced mental capacity following a cardiac arrest episode in the past who presented to the ER with shortness of breath. ER work-up revealed acute exacerbation of congestive heart failure along with network security officer paulie kidney disease so cardiology recommended observation for volume overload treatment with diuretics of Lasix 80 mg IV twice daily and monitor kidney function. Today she is doing much better and her oxygen level is good without supplement. Source: patient Exam Limitations: no limitations Date Seen 04/24/23 Time Seen by a Provider: 11:00 Attending Physician Itzel Fonseca Aprn PCP Admitting Physician: Shawna Gray DO Attending Physician: Shawna Gray DO Referring Physician Date of Admission April 23, 2023 at 13:06 Home Medications & Allergies Home Medications Reviewed patient Home Medication Reconciliation performed by pharmacy medication reconciliations environmental test technician and/or nursing. Patients Allergies have been reviewed. Allergies Allergies Coded Allergies JIA Inhibitors (Verified Allergy, Severe, 05/22/19) ARB-Angiotensin Receptor Antagonist (Verified Allergy, Severe, 05/22/19) amoxicillin (Verified Allergy, Unknown, 05/28/21) baclofen (Unverified Allergy, Unknown, 05/22/19) ON H&P clavulanic acid (Verified Allergy, Unknown, 05/28/21) phenazopyridine (Unverified Allergy, Unknown, 05/22/19) ON H&P Past Pmcokbp-Otpilm-Ahkrgx Hx Patient Social History Marrital Status: single Employed/Student: unemployed Tobacco Use?: No Smoking Status: Never a Smoker Substance use?: No Alcohol Use?: No Pt feels they are or have been: No Immunizations Up To Date Date of Influenza Vaccine: Sep 08, 2022 First/Initial COVID19 Vaccinat: X3 Second COVID19 Vaccination Adair: Pfizer Tetanus Booster (TDap): Unknown Hepatitis A: No Hepatitis B: No PED Vaccines UTD: Yes Date of Pneumonia Vaccine: Sep 09, 2018 Seasonal Allergies Seasonal Allergies: No Current Status status: Unknown Advance Directives: No Communicates: Verbally Primary Language: French Preferred Spoken Language: French Is interpretation needed?: No Implanted or Applied Medical D: None Past Medical History Surgeries: Abdominal, Section, Defibrillator, Gallbladder, Hysterectomy, Pacemaker Pneumonia, Chronic Bronchitis Currently Using CPAP: No Currently Using BIPAP: No Cardiomyopathy, Endocarditis, Hypertension, Valvular Heart Disease Sexually Transmitted Disease: No Renal Failure Gastroesophageal Reflux Loss of Vision: Denies Hearing Impairment: Denies Anxiety, Bipolar, Depression Blood Disorders: Yes (ANEMIA) Family Medical History Patient reports no known family medical history. 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 SHE HAS HAD A DEFIBRILLATOR IN PLACE SINCE AGE 24. Review of Systems Constitutional: see HPI, malaise, weakness EENTM: no symptoms reported Respiratory: dyspnea on exertion, short of breath Cardiovascular: no symptoms reported Gastrointestinal: no symptoms reported Genitourinary: no symptoms reported Musculoskeletal: no symptoms reported Skin: no symptoms reported Psychiatric/Neurological: Depressed All Other Systems Reviewed Negative Unless Noted: Yes Physical Exam Physical Exam Vital Signs Vital Signs - First Documented 04/23/23 14:27 FiO2 21 Capillary Refill : Less Than 3 Seconds Height, Weight, BMI Height: 5'3.00" Weight: 234lbs. 0oz. [id number]; 34.52 BMI Method:Stated General Appearance: No Apparent Distress, Chronically ill, Obese Eyes: Right Eye Normal Inspection, Right Eye PERRL HEENT: PERRL/EOMI, Normal ENT Inspection, Pharynx Normal, Moist Mucous Membranes Neck: Full Range of Motion, Normal Inspection, Non Tender Respiratory: Chest Non Tender, Lungs Clear, No Accessory Muscle Use, No Respiratory Distress, Decreased Breath Sounds Cardiovascular: Regular Rate, Rhythm, No Edema, No Gallop, No JVD, No Murmur, Normal Peripheral Pulses Gastrointestinal: Normal Bowel Sounds, No Organomegaly, No Pulsatile Mass, Non Tender, Soft Back: Normal Inspection, No CVA Tenderness, No Vertebral Tenderness Extremity: Normal Capillary Refill, Normal Inspection, Normal Range of Motion, Non Tender, No Calf Tenderness, No Pedal Edema Neurologic/Psychiatric: Alert, Oriented x3, No Motor/Sensory Deficits, Normal Mood/Affect Skin: Normal Color, Warm/Dry Lymphatic: No Adenopathy Results Results/Procedures Labs Laboratory Tests 04/23/23 11:02 04/24/23 05:16 Patient resulted labs reviewed. Assessment/Plan Admission Diagnosis Assessment: AECHF Edema Defib in place Chronic kidney disease sees nephrology out of [place] HTN HLP Meth use History of cardiac arrest with anoxic brain injury? Plan: Move to fourth floor Dr Cao consult Monitor closely Admission Status: Observation SHAWNA GRAY DO April 24, 2023 07:11
[2023-04-24] MEDS: ASPIRIN E.C. 81 MG (ECOTRIN) TAB PO SCH (09:09)
[2023-04-24] MEDS: DOCUSATE SODIUM 100 MG (COLACE) CAP PO SCH ×2 (09:09→20:32)
[2023-04-24] MEDS: SENNOSIDES 8.6 MG (SENOKOT) TAB PO SCH ×2 (09:10→20:32)
--- NOTE | 2023-04-24 16:05 | Cardiology Progress Note ---
Cardiology SOAP Progress Note Subjective: improved shortness of breath Objective: I&O/Vital Signs 04/24/23 04/24/23 04/24/23 04/24/23 07:00 07:30 08:00 09:44 Temp 36.1 Pulse 76 77 Resp 14 B/P (MAP) 149/108 (122) Pulse Ox 97 95 95 O2 Delivery Room Air High Flow N/C Room Air O2 Flow Rate 5.00 04/24/23 04/24/23 04/24/23 04/24/23 11:55 12:43 14:40 15:20 Temp 36.3 36.0 Pulse 85 74 82 Resp 20 20 B/P (MAP) 134/90 (105) 140/100 (113) Pulse Ox 93 93 96 O2 Delivery Room Air Room Air Room Air 04/24/23 15:46 Temp 36.2 Pulse 80 Resp 20 B/P (MAP) 138/89 (105) Pulse Ox 95 O2 Delivery Room Air 04/24/23 00:00 Intake Total 1520 ml Output Total 2250 ml Balance -730 ml Weight (Pounds): 234 Weight (Ounces): 0 Weight (Calculated Kilograms): 106.377242 Constitutional: AAO x 3 Respiratory: No accessory muscle use, No respiratory distress; lungs clear to auscultation; No wheezing Cardiovascular: regular rate-rhythm, S1 and S2 Gastrointestional: soft Extremities: No pedal edema Neurologic/Psychiatric: no motor/sensory deficits, alert, normal mood/affect, oriented x 3 Skin: normal color Results/Procedures: Labs Laboratory Tests 04/24/23 05:16: White Blood Count 5.5, Red Blood Count 4.55, Hemoglobin 12.9, Hematocrit 40, Mean Corpuscular Volume 88, Mean Corpuscular Hemoglobin 28, Mean Corpuscular Hemoglobin Concent 32, Red Cell Distribution Width 15.3H, Platelet Count 268, Mean Platelet Volume 9.5, Immature Granulocyte % (Auto) 0, Neutrophils (%) (Auto) 38L, Lymphocytes (%) (Auto) 50H, Monocytes (%) (Auto) 8, Eosinophils (%) (Auto) 3, Basophils (%) (Auto) 1, Neutrophils # (Auto) 2.1, Lymphocytes # (Auto) 2.7, Monocytes # (Auto) 0.4, Eosinophils # (Auto) 0.2, Basophils # (Auto) 0.0, Immature Granulocyte # (Auto) 0.0, Sodium Level 140, Potassium Level 3.3L, Chloride Level 104, Carbon Dioxide Level 26, Anion Gap 10, Blood Urea Nitrogen 26H, Creatinine 2.94#H, Estimat Glomerular Filtration Rate 21, BUN/Creatinine Ratio 9, Glucose Level 100, Calcium Level 8.8, Corrected Calcium 9.6, Total Bilirubin 0.2, Aspartate Amino Transf (AST/SGOT) 15, Alanine Aminotransferase (ALT/SGPT) 15, Alkaline Phosphatase 51, Total Protein 5.6L, Albumin 3.0L A/P: Assessment/Dx: Dyspnea Acute on chronic CHF HTN CKD Plan: Acute on chronic systolic CHF Nonischemic cardiomyopathy. Maintained on beta satnam and Entresto as outpatient. However current med list does not show Entresto on the list - 2D echo in October 2021: ejection fraction 30 to 35%, hypokinesia at the apex and lateral wall, mild to moderate tricuspid regurgitation, PA pressure 30 to 35 mmHg. - Echo on 02/27/23: LVEF 40-45%,mild enlargement of both atria, mod MR, PASP 40-45 mmHg IV diuretics - improved shortness of breath History of mid left atrial thrombus on an echo at [facility]. Date unknown. She is maintained on Eliquis H/o ICD implantation and repositioning done in August 24, 2015. Another ICD revision with new pace/sense lead replacement done by Dr. Castanon on May 10, 2019. Then another repositioning of the lead and then had replacement of the lead. ICD interrogation by Dr Patterson on December 01, 2022: good sensing and capture activity. Battery longevity 17 months, SVC lead malfunction reported. Referred to EP in [place]. Hypertension, on amlodipine. 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 Please call me if you have any questions. Cynthia Cao MD, FACP, FACC, FSCAI, FHRS, CCDS Interventional Cardiology Cardiac Electrophysiology Vascular Medicine and Endovascular Interventions Davida CAO MD April 24, 2023 16:05
[2023-04-24] MEDS: MELATONIN 3 MG TABLET PO PRN (21:32)
[2023-04-25] MEDS: RT-ALBUTEROL SULF 2.5 MG/3 ML PRE-MIX VIAL INH SCH ×3 (02:29→15:08)
[2023-04-25 03:23] VITALS: BP 126/83
[2023-04-25 05:32] LABS: BASOPHILS % (AUTO) 1 % (0-10); EOSINOPHILS # (AUTO) 0.1 10^3/uL (0.0-0.3); EOSINOPHILS % (AUTO) 2 % (0-10); HEMATOCRIT 39 % (35-52); HEMOGLOBIN 12.6 g/dL (11.5-16.0); LYMPHOCYTES # (AUTO) 3.2 10^3/uL (1.0-4.0); LYMPHOCYTES % (AUTO) 51 % (12-44); MEAN CORPUSCULAR HEMOGLOBIN 28 pg (25-34); MEAN CORPUSCULAR HGB CONC 32 g/dL (32-36); MEAN CORPUSCULAR VOLUME 87 fL (80-99); MEAN PLATELET VOLUME 9.5 fL (9.0-12.2); MONOCYTES # (AUTO) 0.5 10^3/uL (0.0-1.0); MONOCYTES % (AUTO) 9 % (0-12); NEUTROPHILS # (AUTO) 2.3 10^3/uL (1.8-7.8); NEUTROPHILS % (AUTO) 37 % (42-75); PLATELET COUNT 268 10^3/uL (130-400); WHITE BLOOD COUNT 6.1 10^3/uL (4.3-11.0)
[2023-04-25 05:43] LABS: ALBUMIN 2.9 GM/DL (3.2-4.5); POTASSIUM 3.2 MMOL/L (3.6-5.0)
[2023-04-25 05:45] LABS: CALCIUM 8.7 MG/DL (8.5-10.1)
[2023-04-25 05:46] LABS: TOTAL PROTEIN 5.4 GM/DL (6.4-8.2)
[2023-04-25 05:47] LABS: BILIRUBIN,TOTAL 0.2 MG/DL (0.1-1.0)
[2023-04-25 05:49] LABS: CREATININE SERUM 2.8 MG/DL (0.60-1.30)
--- NOTE | 2023-04-25 06:01 | Progress Note - Hospitalist ---
Subjective HPI/CC On Admission Date Seen by Provider: April 25, 2023 Time Seen by Provider: 11:00 Chief complaint: Dyspnea HPI: This is a 32-year-old female clinic patient of [facility] who also sees cardiology and nephrology who has a past medical history of congestive heart failure and chronic kidney disease who has reduced mental capacity following a cardiac arrest episode in the past who presented to the ER with shortness of breath. ER work-up revealed acute exacerbation of congestive heart failure along with chronic kidney disease so cardiology recommended observation for volume overload treatment with diuretics of Lasix 80 mg IV twice daily and monitor kidney function. Today she is doing much better and her oxygen level is good without supplement. Objective Exam Vital Signs Vital Signs Date Time Temp Pulse Resp B/P (MAP) Pulse Ox O2 Delivery O2 Flow Rate FiO2 04/25/23 12:03 35.6 86 20 144/94 (111) 93 Room Air 04/24/23 08:00 5.00 04/23/23 14:27 21 Capillary Refill : Less Than 3 Seconds Results/Procedures Lab Laboratory Tests 04/25/23 05:12 Patient resulted labs reviewed. MEGGAN GARCIA DO April 25, 2023 06:01
[2023-04-25] MEDS: FUROSEMIDE 40 MG/4 ML INJ (LASIX) IVP SCH (06:46)
[2023-04-25 07:57] VITALS: BP 145/87
[2023-04-25] MEDS: ASPIRIN E.C. 81 MG (ECOTRIN) TAB PO SCH (08:17)
[2023-04-25] MEDS: SENNOSIDES 8.6 MG (SENOKOT) TAB PO SCH (08:17)
[2023-04-25] MEDS: DOCUSATE SODIUM 100 MG (COLACE) CAP PO SCH (08:17)
[2023-04-25 12:03] VITALS: BP 144/94
[2023-04-25] MEDS ORDERED: POTA-177 PO (14:14)
[2023-04-25] MEDS ORDERED: FURO-124 PO (14:14)
[2023-04-25] MEDS ORDERED: ASPI-1238 PO (14:14)
--- NOTE | 2023-04-25 14:14 | Discharge Summary ---
Discharge Summary Hospital Course Was the Problem List Reviewed?: Yes Problems/Dx: (1) CHF exacerbation Status: Acute Qualifiers: Qualified Codes: I50.9 - Heart failure, unspecified (2) Acute respiratory failure Status: Acute (3) Methamphetamine use Status: Acute Hospital Course Date of Admission: April 23, 2023 at 13:06 Admission Diagnosis : Family Physician/Provider: Itzel Fonseca Aprn Date of Discharge: 04/25/23 Discharge Diagnosis: [ ] Hospital Course:Hospital course: Patient had brief overnight hospital course after she presented with volume overload and acute congestive heart failure. IV Lasix was given along with cardiology consultation and close monitoring of kidney function was monitored. Patient was deemed stable for discharge no longer needed oxygen supplementation was discharged. Labs and Pending Lab Test: Laboratory Tests 04/25/23 05:12: White Blood Count 6.1, Red Blood Count 4.48, Hemoglobin 12.6, Hematocrit 39, Mean Corpuscular Volume 87, Mean Corpuscular Hemoglobin 28, Mean Corpuscular Hemoglobin Concent 32, Red Cell Distribution Width 15.2H, Platelet Count 268, Mean Platelet Volume 9.5, Immature Granulocyte % (Auto) 0, Neutrophils (%) (Auto) 37L, Lymphocytes (%) (Auto) 51H, Monocytes (%) (Auto) 9, Eosinophils (%) (Auto) 2, Basophils (%) (Auto) 1, Neutrophils # (Auto) 2.3, Lymphocytes # (Auto) 3.2, Monocytes # (Auto) 0.5, Eosinophils # (Auto) 0.1, Basophils # (Auto) 0.0, Immature Granulocyte # (Auto) 0.0, Sodium Level 139, Potassium Level 3.2L, Chloride Level 105, Carbon Dioxide Level 25, Anion Gap 9, Blood Urea Nitrogen 26H, Creatinine 2.80H, Estimat Glomerular Filtration Rate 22, BUN/Creatinine Ratio 9, Glucose Level 94, Calcium Level 8.7, Corrected Calcium 9.6, Total Bilirubin 0.2, Aspartate Amino Transf (AST/SGOT) 17, Alanine Aminotransferase (ALT/SGPT) 17, Alkaline Phosphatase 50, Total Protein 5.4L, Albumin 2.9L Home Meds Active Potassium Chloride 10 Meq Tab.er.prt 10 Meq PO DAILY Lasix (Furosemide) 40 Mg Tablet 40 Mg PO DAILY Aspirin EC (Aspirin) 81 Mg Tablet.dr 81 Mg PO DAILY K-Tab ER (Potassium Chloride) 10 Meq Tablet.er 10 Meq PO DAILY Lasix (Furosemide) 20 Mg Tablet 20 Mg PO DAILY Gabapentin 100 Mg Capsule 100 Mg PO Q8H PRN 10 Days Cyclobenzaprine HCl 10 Mg Tablet 10 Mg PO BID PRN 7 Days Eliquis (Apixaban) 5 Mg Tablet 5 Mg PO BID Metoprolol Tartrate 50 Mg Tablet 50 Mg PO BID Reported Biotin 5,000 Mcg Tab.rapdis [Meloxicam 15 Mg Tabs] [Clonidine Hydrochloride .2 Mg ] [Olanzapine 10 Mg Tabs] [Oxcarbazepine 300 Mg Tabs] [Metoprolol Tartrate 100 Mg Tab] Famotidine 20 Mg Tablet Ropinirole HCl 0.5 Mg Tablet Amlodipine Besylate 10 Mg Tablet 10 Mg PO DAILY Rx-Proair (Albuterol Sulfate) 8 Gm Hfa.aer.ad 2 Puff INH Q6H PRN Assessment/Pt Instructions PCP and Cardiology Discharge Planning: <30 minutes discharge planning Discharge Instructions Discharge Diet: No Restrictions Discharge Physical Examination Vital Signs Vital Signs Date Time Temp Pulse Resp B/P (MAP) Pulse Ox O2 Delivery O2 Flow Rate FiO2 04/25/23 12:03 35.6 86 20 144/94 (111) 93 Room Air 04/24/23 08:00 5.00 04/23/23 14:27 21 General Appearance: No Apparent Distress, WD/WN, Chronically ill Allergies: Coded Allergies: JIA Inhibitors (Verified Allergy, Severe, 05/22/19) ARB-Angiotensin Receptor Antagonist (Verified Allergy, Severe, 05/22/19) amoxicillin (Verified Allergy, Unknown, 05/28/21) baclofen (Unverified Allergy, Unknown, 05/22/19) ON H&P clavulanic acid (Verified Allergy, Unknown, 05/28/21) phenazopyridine (Unverified Allergy, Unknown, 05/22/19) ON H&P Discharge Summary Date of Admission April 23, 2023 at 13:06 Date of Discharge Discharge Date: April 25, 2023 Admission Diagnosis Assessment: AECHF Edema Defib in place Chronic kidney disease sees nephrology out of [place] HTN HLP Meth use History of cardiac arrest with anoxic brain injury? Plan: Move to fourth floor Dr Cao consult Monitor closely MEGGAN GARCIA DO April 25, 2023 14:14
[2023-04-25] MEDS ORDERED: RT-ALBUTEROL HFA 8.5 GM INHALER IH PRN ×2 (14:15→14:30)
[2023-04-25] MEDS ORDERED: GABAPENTIN 100 MG (NEURONTIN) CAP PO PRN (14:15)
[2023-04-25] MEDS ORDERED: CYCLOBENZAPRINE 10 MG (FLEXERIL) TAB PO PRN (14:30)
--- NOTE | 2023-04-25 14:40 | Cardiology Progress Note ---
Cardiology SOAP Progress Note Subjective: Significantly improved Objective: I&O/Vital Signs 04/25/23 04/25/23 04/25/23 04/25/23 03:23 07:00 07:35 07:57 Temp 36.0 35.8 Pulse 84 93 95 Resp 16 20 B/P (MAP) 126/83 (97) 145/87 (106) Pulse Ox 97 97 94 O2 Delivery Room Air Room Air Room Air 04/25/23 04/25/23 04/25/23 08:00 12:03 13:00 Temp 35.6 Pulse 86 96 Resp 20 B/P (MAP) 144/94 (111) Pulse Ox 93 O2 Delivery Room Air Room Air 04/25/23 00:00 Intake Total 1000 ml Balance 1000 ml Weight (Pounds): 234 Weight (Ounces): 0 Weight (Calculated Kilograms): 106.438961 Constitutional: AAO x 3 Respiratory: No accessory muscle use, No respiratory distress; lungs clear to auscultation; No wheezing Cardiovascular: regular rate-rhythm, S1 and S2 Gastrointestional: soft Extremities: No pedal edema Neurologic/Psychiatric: no motor/sensory deficits, alert, normal mood/affect, oriented x 3 Skin: normal color Results/Procedures: Labs Laboratory Tests 04/25/23 05:12: White Blood Count 6.1, Red Blood Count 4.48, Hemoglobin 12.6, Hematocrit 39, Mean Corpuscular Volume 87, Mean Corpuscular Hemoglobin 28, Mean Corpuscular Hemoglobin Concent 32, Red Cell Distribution Width 15.2H, Platelet Count 268, Mean Platelet Volume 9.5, Immature Granulocyte % (Auto) 0, Neutrophils (%) (Auto) 37L, Lymphocytes (%) (Auto) 51H, Monocytes (%) (Auto) 9, Eosinophils (%) (Auto) 2, Basophils (%) (Auto) 1, Neutrophils # (Auto) 2.3, Lymphocytes # (Auto) 3.2, Monocytes # (Auto) 0.5, Eosinophils # (Auto) 0.1, Basophils # (Auto) 0.0, Immature Granulocyte # (Auto) 0.0, Sodium Level 139, Potassium Level 3.2L, Chloride Level 105, Carbon Dioxide Level 25, Anion Gap 9, Blood Urea Nitrogen 26H, Creatinine 2.80H, Estimat Glomerular Filtration Rate 22, BUN/Creatinine Ratio 9, Glucose Level 94, Calcium Level 8.7, Corrected Calcium 9.6, Total Bilirubin 0.2, Aspartate Amino Transf (AST/SGOT) 17, Alanine Aminotransferase (ALT/SGPT) 17, Alkaline Phosphatase 50, Total Protein 5.4L, Albumin 2.9L A/P: Assessment/Dx: Dyspnea Acute on chronic CHF HTN CKD Plan: Acute on chronic systolic CHF Nonischemic cardiomyopathy. Maintained on beta satnam and Entresto as outpatient. However current med list does not show Entresto on the list - 2D echo in October 2021: ejection fraction 30 to 35%, hypokinesia at the apex and lateral wall, mild to moderate tricuspid regurgitation, PA pressure 30 to 35 mmHg. - Echo on 02/27/23: LVEF 40-45%,mild enlargement of both atria, mod MR, PASP 40-45 mmHg IV diuretics - improved shortness of breath; okay to discharge and follow-up with Dr. Patterson. History of mid left atrial thrombus on an echo at [facility]. Date unknown. She is maintained on Eliquis H/o ICD implantation and repositioning done in August 24, 2015. Another ICD revision with new pace/sense lead replacement done by Dr. Castanon on May 10, 2019. Then another repositioning of the lead and then had replacement of the lead. ICD interrogation by Dr Patterson on December 01, 2022: good sensing and capture activity. Battery longevity 17 months, SVC lead malfunction reported. Referred to EP in [place]. Hypertension, on amlodipine. 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 Please call me if you have any questions. Cynthia Cao MD, FACP, FACC, FSCAI, FHRS, CCDS Interventional Cardiology Cardiac Electrophysiology Vascular Medicine and Endovascular Interventions Davida CAO MD April 25, 2023 14:40
[2023-04-25 15:31] VITALS: BP 141/77
[2023-04-25 16:45] VITALS: BP 141/77
[2023-04-25] MEDS ORDERED: meTOprolol TARTRATE 50 MG (LOPRESSOR) TAB PO SCH (21:00)
[2023-04-25] MEDS ORDERED: APIXABAN 5 MG (ELIQUIS) TABLET PO SCH (21:00)
[2023-04-26] MEDS ORDERED: FUROSEMIDE 20 MG (LASIX) TAB PO SCH ×2 (09:00→09:15)
[2023-04-26] MEDS ORDERED: amLODIPine 10 MG (NORVASC) TAB PO SCH (09:00)
[2023-04-26] MEDS ORDERED: KCL 10 MEQ TAB (MICRO K) PO SCH (09:00)
== END 2023-04-25 16:45 | disposition home or self-care (01) ==
LOC: EDUNIT# 10:31 → ER 10:34 → CSD 13:06 → UNDOADMIN 13:06 → 4TH 04-24 14:41 → CSD 04-24 14:41 → UNDODISIN 04-25 16:45
PROVIDERS: ADMIT Internal Medicine; ATTEND Internal Medicine
PROC: 5A0935A Assistance with Respiratory Ventilation, Less than 24 Consecutive Hours, High Flow/Velocity Cannula (ICD-10-PCS; principal; 2023-04-23)
DX: I13.0 Hypertensive heart and chronic kidney disease with heart failure and stage 1 through stage 4 chronic kidney disease, or unspecified chronic kidney disease (principal); I50.23 Acute on chronic systolic (congestive) heart failure; J96.01 Acute respiratory failure with hypoxia; N18.4 Chronic kidney disease, stage 4 (severe); I42.0 Dilated cardiomyopathy; I42.8 Other cardiomyopathies; E78.00 Pure hypercholesterolemia, unspecified; Z95.810 Presence of automatic (implantable) cardiac defibrillator; K21.9 Gastro-esophageal reflux disease without esophagitis; E66.9 Obesity, unspecified; F41.9 Anxiety disorder, unspecified; F31.9 Bipolar disorder, unspecified; Z20.822 Contact with and (suspected) exposure to COVID-19; F15.90 Other stimulant use, unspecified, uncomplicated; Z68.35 Body mass index [BMI] 35.0-35.9, adult
CPT/HCPCS: 36415; 71045; 80053; 80306; 83735; 83880; 84484; 85025; 85379; 85610; 85730; 87636; 94640; G0378

== ENCOUNTER 2023-04-28 02:08 | Emergency (ER) | payer MEDICARE, MEDICAID ==
[~2023-04-28] VITALS: Ht 167 cm; Wt 100.5 kg
[~2023-04-28 02:08] MED LIST changes: +ASPI-1238 PO; +FURO-124 PO; +POTA-177 PO
[2023-04-28] MEDS ORDERED: NITROGLYCERIN 2% OINT 1 GM UNIT DOSE PACKET TOP ONE (02:30)
[2023-04-28] MEDS ORDERED: FUROSEMIDE 40 MG/4 ML INJ (LASIX) IVP ONE (02:30)
[2023-04-28] MEDS ORDERED: ASPIRIN 81 MG CHEW (CHILDREN'S ASA) PO ONE (02:30)
--- NOTE | 2023-04-28 02:31 | ED Chest Pain ---
General Chief Complaint: Chest Wall Stated Complaint: SOA/CHEST TIGHTNESS Nursing Triage Note: c/o chest pressure, soa worse x2 hrs. Source: patient, family Exam Limitations: no limitations History of Present Illness Date Seen by Provider: Apr 28, 2023 Time Seen by Provider: 02:12 Initial Comments 32yoF with PMH of HFrEF, CKD, HTN most notably coming in due to chest pain and shortness of breath. The patient states that she was admitted for heart failure exacerbation and discharged a couple days ago. She was feeling a little bit better, but now feels like she believes she has extra fluid in her lungs again. She did take her Lasix as prescribed this morning, and took an extra half pill tonight. Denies any fever, cough, leg swelling or pain, rash, abdominal pain, nausea, vomiting, diarrhea, weakness, numbness, or any other concerns. She did take a baby aspirin this morning, and has not missed any doses of her Eliquis. Allergies and Home Medications Allergies Coded Allergies: JIA Inhibitors (Verified Allergy, Severe, 05/22/19) ARB-Angiotensin Receptor Antagonist (Verified Allergy, Severe, 05/22/19) amoxicillin (Verified Allergy, Unknown, 05/28/21) baclofen (Unverified Allergy, Unknown, 05/22/19) ON H&P clavulanic acid (Verified Allergy, Unknown, 05/28/21) phenazopyridine (Unverified Allergy, Unknown, 05/22/19) ON H&P Patient Home Medication List Home Medication List Reviewed: Yes Albuterol Sulfate (Rx-Proair) 8 Gm Hfa.aer.ad, 2 PUFF INH Q6H PRN for SHORTNESS OF BREATH, (Reported) Entered as Reported by: BROWN SCHULER on 03/21/15 1434 Amlodipine Besylate (Amlodipine Besylate) 10 Mg Tablet, 10 MG PO DAILY, (Reported) Entered as Reported by: TUNG HELTON on 07/23/15 0737 Apixaban (Eliquis) 5 Mg Tablet, 5 MG PO BID Prescribed by: RALPH DELCID on 11/01/18 1856 Aspirin (Aspirin EC) 81 Mg Tablet.dr, 81 MG PO DAILY Prescribed by: MEGGAN GARCIA on 04/25/23 1414 Biotin (Biotin) 5,000 Mcg Tab.bety, (Reported) Entered as Reported by: MIKY CAMPBELL on 05/22/192116 Cyclobenzaprine HCl (Cyclobenzaprine HCl) 10 Mg Tablet, 10 MG PO BID PRN for chest wall pain/muscle spasm Prescribed by: EDISON CHAMBERLAIN on 12/24/21 0206 Famotidine (Famotidine) 20 Mg Tablet, (Reported) Entered as Reported by: TALISHA CELIS on 08/05/181810 Furosemide (Lasix) 40 Mg Tablet, 40 MG PO DAILY Prescribed by: MEGGAN GARCIA on 04/25/23 1414 Gabapentin (Gabapentin) 100 Mg Capsule, 100 MG PO Q8H PRN for burning pain/neuropathy thumb Prescribed by: EDISON CHAMBERLAIN on 04/14/22 0337 Metoprolol Tartrate (Metoprolol Tartrate) 50 Mg Tablet, 50 MG PO BID Prescribed by: FELECIA FORTUNE on 07/24/15 0841 Potassium Chloride (Potassium Chloride) 10 Meq Tab.er.prt, 10 MEQ PO DAILY Prescribed by: MEGGAN GARCIA on 04/25/23 1414 Ropinirole HCl (Ropinirole HCl) 0.5 Mg Tablet, (Reported) Entered as Reported by: TALISHA CELIS on 08/05/181809 [Clonidine Hydrochloride .2 Mg ] , (Reported) Entered as Reported by: MIKY CAMPBELL on 05/22/192115 [Meloxicam 15 Mg Tabs] , (Reported) Entered as Reported by: MIKY CAMPBELL on 05/22/192115 [Metoprolol Tartrate 100 Mg Tab] , (Reported) Entered as Reported by: MIKY CAMPBELL on 05/22/191929 [Olanzapine 10 Mg Tabs] , (Reported) Entered as Reported by: MIKY CAMPBELL on 05/22/192115 [Oxcarbazepine 300 Mg Tabs] , (Reported) Entered as Reported by: MIKY CAMPBELL on 05/22/192115 Discontinued Medications Furosemide (Lasix) 20 Mg Tablet, 20 MG PO DAILY Prescribed by: FELECIA FORTUNE on 02/28/23 1040 Potassium Chloride (K-Tab ER) 10 Meq Tablet.er, 10 MEQ PO DAILY Prescribed by: FELECIA FORTUNE on 02/28/23 1040 Review of Systems Review of Systems Constitutional: No fever EENTM: No Symptoms Reported Respiratory: See HPI Cardiovascular: See HPI Gastrointestinal: No Symptoms Reported Genitourinary: No Symptoms Reported Musculoskeletal: no symptoms reported Skin: no symptoms reported Psychiatric/Neurological: No Symptoms Reported Endocrine: No Symptoms Reported Hematologic/Lymphatic: No Symptoms Reported Past Npbzzox-Lyeizc-Quizcf Hx Immunizations Up To Date Tetanus Booster (TDap): Unknown PED Vaccines UTD: Yes First/Initial COVID19 Vaccinat: X3 Second COVID19 Vaccination Adair: Pfizer Third COVID19 Vaccination Date: [place] Seasonal Allergies Seasonal Allergies: No Past Medical History Surgery/Hospitalization HX: DEFIBRILLATOR, PACEMAKER REMOVED, HEART FAILURE, HTN, HIGH CHOLESTEROL, Surgeries: Yes (PACER/DEFIB 2014; DEFIB PLACED 05/10/19. PEG TUBE- REMOVED;UTERINE ABLATION) Abdominal, Section, Defibrillator, Gallbladder, Hysterectomy, Pacemaker Respiratory: Yes (ARDS-CODED; PNEUMOTHORAX 06/2015) Pneumonia, Chronic Bronchitis Currently Using CPAP: No Currently Using BIPAP: No Cardiac: Yes (PULMONARY EDEMA/CARDIAC CAUSE-R/T ATRIAL THROMBUS; CARDIAC ARR EST;V-FIB ) Cardiomyopathy, Endocarditis, Hypertension, Valvular Heart Disease Neurological: Yes (encephalopathy-hypoxia, anoxic brain injury; POOR MEMORY;SLURRED SPEECH) Reproductive Disorders: Yes (ENDOMETRIAL ABLATION) Female Reproductive Disorders: Menstrual Problems Sexually Transmitted Disease: No Genitourinary: Yes (BASELINE CREATININE BETWEEN 2 & 3) Renal Failure Gastrointestinal: Yes Gastroesophageal Reflux Musculoskeletal: Yes (GAIT DISTURBANCE) Endocrine: No (OBESITY) HEENT: No Loss of Vision: Denies Hearing Impairment: Denies Cancer: No Psychosocial: Yes (SUBSTANCE ABUSE) Anxiety, Bipolar, Depression Integumentary: No Blood Disorders: Yes (ANEMIA) Family Medical History Patient reports no known family medical history. 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 SHE HAS HAD A DEFIBRILLATOR IN PLACE SINCE AGE 24. Physical Exam Vital Signs Vital Signs - First Documented 04/28/23 02:12 Temp 36.0 Pulse 83 Resp 16 B/P (MAP) 162/112 (129) Pulse Ox 98 O2 Delivery Room Air Capillary Refill : Less Than 3 Seconds Height, Weight, BMI Height: 5'3.00" Weight: 234lbs. 0oz. 106.531161wm; 36.00 BMI Method:Stated General Appearance: No Apparent Distress, WD/WN HEENT: PERRL/EOMI, Normal ENT Inspection, Pharynx Normal Neck: Full Range of Motion, Normal Inspection, Non Tender, Supple Respiratory: Chest Non Tender, Lungs Clear, Normal Breath Sounds, No Accessory Muscle Use, No Respiratory Distress Cardiovascular: Regular Rate, Rhythm, No Edema, Normal Peripheral Pulses Gastrointestinal: Normal Bowel Sounds, Non Tender, Soft; No Distended, No Guarding Extremity: Normal Capillary Refill, Normal Inspection, Normal Range of Motion, Non Tender, No Calf Tenderness, No Pedal Edema Neurologic/Psychiatric: No Motor/Sensory Deficits, Normal Mood/Affect Skin: Normal Color, Warm/Dry Progress/Results/Core Measures Results/Orders Lab Results Laboratory Tests Test 04/28/23 02:30 Range/Units White Blood Count 7.0 4.3-11.0 10^3/uL Red Blood Count 4.55 3.80-5.11 10^6/uL Hemoglobin 12.9 11.5-16.0 g/dL Hematocrit 40 35-52 % Mean Corpuscular Volume 89 80-99 fL Mean Corpuscular Hemoglobin 28 25-34 pg Mean Corpuscular Hemoglobin Concent 32 32-36 g/dL Red Cell Distribution Width 15.2 H 10.0-14.5 % Platelet Count 300 130-400 10^3/uL Mean Platelet Volume 9.1 9.0-12.2 fL Immature Granulocyte % (Auto) 0 % Neutrophils (%) (Auto) 37 L 42-75 % Lymphocytes (%) (Auto) 50 H 12-44 % Monocytes (%) (Auto) 9 0-12 % Eosinophils (%) (Auto) 3 0-10 % Basophils (%) (Auto) 1 0-10 % Neutrophils # (Auto) 2.6 1.8-7.8 10^3/uL Lymphocytes # (Auto) 3.5 1.0-4.0 10^3/uL Monocytes # (Auto) 0.7 0.0-1.0 10^3/uL Eosinophils # (Auto) 0.2 0.0-0.3 10^3/uL Basophils # (Auto) 0.0 0.0-0.1 10^3/uL Immature Granulocyte # (Auto) 0.0 0.0-0.1 10^3/uL Prothrombin Time 12.5 12.2-14.7 SEC INR Comment 0.9 0.8-1.4 Activated Partial Thromboplast Time 30 24-35 SEC Sodium Level 138 135-145 MMOL/L Potassium Level 3.5 L 3.6-5.0 MMOL/L Chloride Level 108 H 98-107 MMOL/L Carbon Dioxide Level 20 L 21-32 MMOL/L Anion Gap 10 5-14 MMOL/L Blood Urea Nitrogen 21 H 7-18 MG/DL Creatinine 2.43 H 0.60-1.30 MG/DL Estimat Glomerular Filtration Rate 26 BUN/Creatinine Ratio 9 Glucose Level 118 H 70-105 MG/DL Calcium Level 8.7 8.5-10.1 MG/DL Corrected Calcium 9.5 8.5-10.1 MG/DL Magnesium Level 1.9 1.6-2.4 MG/DL Total Bilirubin 0.2 0.1-1.0 MG/DL Aspartate Amino Transf (AST/SGOT) 22 5-34 U/L Alanine Aminotransferase (ALT/SGPT) 23 0-55 U/L Alkaline Phosphatase 58 40-136 U/L Troponin I < 0.028 <0.028 NG/ML B-Type Natriuretic Peptide 308.0 H <100.0 PG/ML Total Protein 5.6 L 6.4-8.2 GM/DL Albumin 3.0 L 3.2-4.5 GM/DL Lipase 26 8-78 U/L My Orders Orders - MATY KHAN MD Cbc With Automated Diff (04/28/23 02:18) Magnesium (04/28/23 02:18) Chest 1 View, Ap/Pa Only (04/28/23 02:18) Ekg Tracing (04/28/23 02:18) Comprehensive Metabolic Panel (04/28/23 02:18) Protime With Inr (04/28/23 02:18) Partial Thromboplastin Time (04/28/23 02:18) O2 (04/28/23 02:18) Monitor-Rhythm Ecg Trace Only (04/28/23 02:18) Ed Iv/Invasive Line Start (04/28/23 02:18) Lipase (04/28/23 02:18) Bnp El (04/28/23 02:18) Troponin I El (04/28/23 02:18) Furosemide Injection (Lasix Injection) (04/28/23 02:30) Aspirin Chewable Tablet (Baby Aspirin Ch (04/28/23 02:30) Nitroglycerin Ointment (Nitrobid Ointme (04/28/23 02:30) Medications Given in ED Current Medications Medications Dose Ordered Sig/Mikal Route Start Time Stop Time Status Last Admin Dose Admin Aspirin 243 mg ONCE ONCE PO 04/28/23 02:30 04/28/23 02:31 DC 04/28/23 02:28 243 MG Furosemide 40 mg ONCE ONCE IVP 04/28/23 02:30 04/28/23 02:31 DC 04/28/23 02:28 40 MG Nitroglycerin 1 inch ONCE ONCE TOP 04/28/23 02:30 04/28/23 02:31 DC 04/28/23 02:27 1 INCH Vital Signs/I&O 04/28/23 02:12 Temp 36.0 Pulse 83 Resp 16 B/P (MAP) 162/112 (129) Pulse Ox 98 O2 Delivery Room Air Blood Pressure Mean: 129 Progress Progress Note : Progress Note 32-year-old female with above history coming in due to mostly shortness of breath in the setting of known heart failure. ABCs were intact and vitals were stable on presentation. Specifically, the patient has a normal oxygen saturation on room air. When she was admitted to the hospital the other day, she did require oxygen. EKG ordered and interpreted by me showing no acute ischemic changes, appears similar to prior. An IV was placed and basic labs were obtained and were significant for a negative troponin, BNP around 300 which is lower than it was a couple days ago, creatinine just below her baseline, potassium 3.5. The patient was given aspirin, Nitropaste, and IV Lasix. Chest x-ray ordered and interpreted by me showing cardiomegaly still, but her central congestion does appear slightly improved from prior. Patient continues to be well-appearing, no clinical signs of ACS objectively, and I believe her heart failure can be treated with increasing doses of Lasix at home for a couple of days. I believe she is otherwise stable for discharge with outpatient follow- up. She was sent home with strict return precautions Initial ECG Impression Date: Apr 28, 2023 Initial ECG Impression Time: 02:25 Initial ECG Rate: 73 Initial ECG Rhythm: Normal Sinus Comment Narrow QRS, normal axis, no significant ST changes or T wave abnormalities, appears similar to prior EKGs Diagnostic Imaging Diagonstic Imaging: Xray (chest) Departure Impression Primary Impression: Acute on chronic congestive heart failure Qualified Codes: I50.23 - Acute on chronic systolic (congestive) heart failure Additional Impression: Chronic renal insufficiency Qualified Codes: N18.4 - Chronic kidney disease, stage 4 (severe) Disposition: HOME, SELF-CARE Condition: Stable Departure-Patient Inst. Decision time for Depature: 03:25 Referrals: BROWN NGUYEN APRN (PCP/Family) Primary Care Physician Patient Instructions: Heart Failure ED Add. Discharge Instructions: We recommend doubling your Lasix for the next couple of days and following up sooner with your hemodialysis charge nurse. Be sure to take potassium with your Lasix. Work/School Note: Family Work Note, Patient Received Medical Care In the Emergency Department On: Apr 28, 2023 Patient Will Be Able to Return to Work/School On: Apr 29, 2023 Work Release Form Date Seen in the Emergency Department: Apr 28, 2023 Return to Work: Apr 29, 2023 Restrictions: No Restrictions MATY KHAN MD Apr 28, 2023 02:31
[2023-04-28 02:41] LABS: BASOPHILS % (AUTO) 1 % (0-10); EOSINOPHILS # (AUTO) 0.2 10^3/uL (0.0-0.3); EOSINOPHILS % (AUTO) 3 % (0-10); HEMATOCRIT 40 % (35-52); HEMOGLOBIN 12.9 g/dL (11.5-16.0); LYMPHOCYTES # (AUTO) 3.5 10^3/uL (1.0-4.0); LYMPHOCYTES % (AUTO) 50 % (12-44); MEAN CORPUSCULAR HEMOGLOBIN 28 pg (25-34); MEAN CORPUSCULAR HGB CONC 32 g/dL (32-36); MEAN CORPUSCULAR VOLUME 89 fL (80-99); MEAN PLATELET VOLUME 9.1 fL (9.0-12.2); MONOCYTES # (AUTO) 0.7 10^3/uL (0.0-1.0); MONOCYTES % (AUTO) 9 % (0-12); NEUTROPHILS # (AUTO) 2.6 10^3/uL (1.8-7.8); NEUTROPHILS % (AUTO) 37 % (42-75); PLATELET COUNT 300 10^3/uL (130-400)
[2023-04-28 02:53] LABS: CHLORIDE 108 MMOL/L (98-107); INR 0.9 (0.8-1.4); POTASSIUM 3.5 MMOL/L (3.6-5.0); PROTHROMBIN TIME PATIENT 12.5 SEC (12.2-14.7); SODIUM 138 MMOL/L (135-145)
[2023-04-28 02:54] LABS: CALCIUM 8.7 MG/DL (8.5-10.1)
[2023-04-28 02:55] LABS: GLUCOSE 118 MG/DL (70-105); TOTAL PROTEIN 5.6 GM/DL (6.4-8.2)
[2023-04-28 02:56] LABS: CARBON DIOXIDE 20 MMOL/L (21-32)
[2023-04-28 02:57] LABS: BILIRUBIN,TOTAL 0.2 MG/DL (0.1-1.0)
[2023-04-28 02:58] LABS: ALKALINE PHOSPHATASE 58 U/L (40-136)
[2023-04-28 02:59] LABS: CREATININE SERUM 2.43 MG/DL (0.60-1.30); GFR ESTIMATED 26
[2023-04-28 03:00] LABS: BUN/CREATININE RATIO 9
[2023-04-28 03:02] LABS: ALANINE AMINOTRANSFERASE 23 U/L (0-55); MAGNESIUM 1.9 MG/DL (1.6-2.4)
[2023-04-28 03:03] LABS: LIPASE 26 U/L (8-78)
[2023-04-28 03:28] VITALS: BP 149/111
[2023-04-28] MEDS ORDERED: KCL 20 MEQ TAB (K-DUR) PO ONE (03:30)
--- NOTE | 2023-04-28 06:41 | Diagnostic Imaging Report ---
Clinical indications: Patient with chest pain and shortness of breath. EXAM: Portable chest x-ray upright view. COMPARISON: Chest x-ray dated 04/23/2023. FINDINGS: Lungs/pleura: There is mild bibasilar atelectasis. Otherwise, lungs are clear.. There is no pneumothorax. There is no pleural effusion. Mediastinum: Unremarkable. Pulmonary vasculature: Unremarkable. Heart: There is cardiomegaly. Cardiac pacemaker/AICD is seen overlying left chest with leads projecting over the heart. There appears to be possible disruption involving the leads overlying the left subclavian region. This finding has stable appearance. Bones/extrathoracic soft tissue: Unremarkable. IMPRESSION: 1: There is no radiographic evidence of acute cardiopulmonary process. 2: There is again seen cardiac pacemaker/AICD overlying left chest. Possible localized area of disruption of one of the leads near the left subclavian region. This appearance is stable. 3: There is mild bibasilar atelectasis. Dictated by: Dictated on workstation # [id number]
== END 2023-04-28 03:28 | disposition home or self-care (01) ==
LOC: EDUNIT# 02:08 → ER 02:10
DX: I13.0 Hypertensive heart and chronic kidney disease with heart failure and stage 1 through stage 4 chronic kidney disease, or unspecified chronic kidney disease (principal); I50.23 Acute on chronic systolic (congestive) heart failure; N18.9 Chronic kidney disease, unspecified; E66.9 Obesity, unspecified; Z68.36 Body mass index [BMI] 36.0-36.9, adult; Z87.891 Personal history of nicotine dependence; Z95.0 Presence of cardiac pacemaker; Z79.01 Long term (current) use of anticoagulants; Z79.82 Long term (current) use of aspirin
CPT/HCPCS: 36415; 71045; 80053; 83690; 83735; 83880; 84484; 85025; 85610; 85730; 93005; 93041

== ENCOUNTER 2023-05-01 04:21 | Emergency (ER) | payer MEDICARE, MEDICAID ==
--- NOTE | 2023-05-01 04:40 | ED General ---
General Stated Complaint: SOB Source of Information: Patient Exam Limitations: No Limitations History of Present Illness Date Seen by Provider: May 01, 2023 Time Seen by Provider: 04:27 Initial Comments 32-year-old female presents to the emergency department today for what she initially said felt like fluid on her chest when she checked in however when I speak with her she states it feels like someone is pushing on her mid chest. She has had several episodes of this in the past. 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 This actually caused V-fib arrest and anoxic brain injury. She denies any current cough. She states her shortness of breath is mild at this time. She was seen on April 25 and admitted for pulmonary edema. She was seen again on April and given some IV Lasix and discharged home ultimately. She denies any abdominal pain, changes in bowel or bladder habits. All other systems reviewed and negative except documented per HPI. Voice recognition software was used to help create this chart Allergies and Home Medications Allergies Coded Allergies: JIA Inhibitors (Verified Allergy, Severe, 05/22/19) ARB-Angiotensin Receptor Antagonist (Verified Allergy, Severe, 05/22/19) amoxicillin (Verified Allergy, Unknown, 05/28/21) baclofen (Unverified Allergy, Unknown, 05/22/19) ON H&P clavulanic acid (Verified Allergy, Unknown, 05/28/21) phenazopyridine (Unverified Allergy, Unknown, 05/22/19) ON H&P Patient Home Medication List Home Medication List Reviewed: Yes Albuterol Sulfate (Rx-Proair) 8 Gm Hfa.aer.ad, 2 PUFF INH Q6H PRN for SHORTNESS OF BREATH, (Reported) Entered as Reported by: BROWN SCHULER on 03/21/15 1434 Amlodipine Besylate (Amlodipine Besylate) 10 Mg Tablet, 10 MG PO DAILY, (Reported) Entered as Reported by: TUNG HELTON on 07/23/15 0737 Apixaban (Eliquis) 5 Mg Tablet, 5 MG PO BID Prescribed by: RALPH DELCID on 11/01/18 1856 Aspirin (Aspirin EC) 81 Mg Tablet.dr, 81 MG PO DAILY Prescribed by: MEGGAN GARCIA on 04/25/23 1414 Biotin (Biotin) 5,000 Mcg Tab.bety, (Reported) Entered as Reported by: MIKY CAMPBELL on 05/22/192116 Cyclobenzaprine HCl (Cyclobenzaprine HCl) 10 Mg Tablet, 10 MG PO BID PRN for chest wall pain/muscle spasm Prescribed by: EDISON CHAMBERLAIN on 12/24/21 0206 Famotidine (Famotidine) 20 Mg Tablet, (Reported) Entered as Reported by: TALISHA CELIS on 08/05/181810 Furosemide (Lasix) 40 Mg Tablet, 40 MG PO DAILY Prescribed by: MEGGAN GARCIA on 04/25/23 1414 Gabapentin (Gabapentin) 100 Mg Capsule, 100 MG PO Q8H PRN for burning pain/neuropathy thumb Prescribed by: EDISON CHAMBERLAIN on 04/14/22 0337 Metoprolol Tartrate (Metoprolol Tartrate) 50 Mg Tablet, 50 MG PO BID Prescribed by: FELECIA FORTUNE on 07/24/15 0841 Potassium Chloride (Potassium Chloride) 10 Meq Tab.er.prt, 10 MEQ PO DAILY Prescribed by: MEGGAN GARCIA on 04/25/23 1414 Ropinirole HCl (Ropinirole HCl) 0.5 Mg Tablet, (Reported) Entered as Reported by: TALISHA CELIS on 08/05/181809 [Clonidine Hydrochloride .2 Mg ] , (Reported) Entered as Reported by: MIKY CAMPBELL on 05/22/192115 [Meloxicam 15 Mg Tabs] , (Reported) Entered as Reported by: MIKY CAMPBELL on 05/22/192115 [Metoprolol Tartrate 100 Mg Tab] , (Reported) Entered as Reported by: MIKY CAMPBELL on 05/22/19 193 [Olanzapine 10 Mg Tabs] , (Reported) Entered as Reported by: MIKY CAMPBELL on 05/22/192115 [Oxcarbazepine 300 Mg Tabs] , (Reported) Entered as Reported by: MIKY CAMPBELL on 05/22/192115 Discontinued Medications Furosemide (Lasix) 20 Mg Tablet, 20 MG PO DAILY Prescribed by: FELECIA FORTUNE on 02/28/23 1040 Potassium Chloride (K-Tab ER) 10 Meq Tablet.er, 10 MEQ PO DAILY Prescribed by: FELECIA FORTUNE on 02/28/23 1040 Review of Systems Review of Systems Constitutional: see HPI Past Fhfgfhd-Iayhwy-Dvzkul Hx Patient Social History Tobacco Use?: No Use of E-Cig and/or Vaping dev: No Substance use?: Yes Substance type: Methamphetamine Alcohol Use?: No Immunizations Up To Date Tetanus Booster (TDap): Unknown PED Vaccines UTD: Yes First/Initial COVID19 Vaccinat: X3 Second COVID19 Vaccination [place]air: Pfizer Third COVID19 Vaccination Date: Pfizer Seasonal Allergies Seasonal Allergies: No Past Medical History Surgery/Hospitalization HX: DEFIBRILLATOR, PACEMAKER REMOVED, HEART FAILURE, HTN, HIGH CHOLESTEROL, Surgeries: Yes (PACER/DEFIB 2014; DEFIB PLACED 05/10/19. PEG TUBE- REMOVED;UTERINE ABLATION) Abdominal, Section, Defibrillator, Gallbladder, Hysterectomy, Pacemaker Respiratory: Yes (ARDS-CODED; PNEUMOTHORAX 06/2015) Pneumonia, Chronic Bronchitis Currently Using CPAP: No Currently Using BIPAP: No Cardiac: Yes (PULMONARY EDEMA/CARDIAC CAUSE-R/T ATRIAL THROMBUS; CARDIAC ARREST;V-FIB ) Cardiomyopathy, Endocarditis, Hypertension, Valvular Heart Disease Neurological: Yes (encephalopathy-hypoxia, anoxic brain injury; POOR MEMORY;SLURRED SPEECH) Reproductive Disorders: Yes (ENDOMETRIAL ABLATION) Female Reproductive Disorders: Menstrual Problems Sexually Transmitted Disease: No Genitourinary: Yes (BASELINE CREATININE BETWEEN 2 & 3) Renal Failure Gastrointestinal: Yes Gastroesophageal Reflux Musculoskeletal: Yes (GAIT DISTURBANCE) Endocrine: No (OBESITY) HEENT: No Loss of Vision: Denies Hearing Impairment: Denies Cancer: No Psychosocial: Yes (SUBSTANCE ABUSE) Anxiety, Bipolar, Depression Integumentary: No Blood Disorders: Yes (ANEMIA) Family Medical History Patient reports no known family medical history. 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 SHE HAS HAD A DEFIBRILLATOR IN PLACE SINCE AGE 24. Physical Exam Vital Signs Vital Signs - First Documented 05/01/23 04:31 Temp 36.5 Pulse 91 Resp 18 B/P (MAP) 169/115 (133) Pulse Ox 94 O2 Delivery Room Air Capillary Refill : Height, Weight, BMI Height: 5'3.00" Weight: 234lbs. 0oz. 106.779353wx; 36.00 BMI Method:Stated General Appearance: No Apparent Distress, WD/WN HEENT: Normal ENT Inspection, Pharynx Normal Neck: Normal Inspection, Non Tender, Supple Respiratory: Chest Non Tender, Lungs Clear, Normal Breath Sounds, No Accessory Muscle Use, No Respiratory Distress Cardiovascular: Regular Rate, Rhythm, No Murmur, Normal Peripheral Pulses, Other (pacer L chest) Gastrointestinal: Normal Bowel Sounds, Non Tender, Soft Extremity: Normal Capillary Refill, Normal Inspection, Normal Range of Motion, Non Tender, No Calf Tenderness, No Pedal Edema Neurologic/Psychiatric: Alert, Oriented x3, Normal Mood/Affect Skin: Normal Color, Warm/Dry Progress/Results/Core Measures Suspected Sepsis SIRS Temperature: Pulse: Respiratory Rate: Laboratory Tests 05/01/23 04:55: White Blood Count 8.6 Blood Pressure / Mean: Laboratory Tests 05/01/23 04:55: Creatinine 2.57H, Platelet Count 365, Total Bilirubin 0.2 Results/Orders Lab Results Laboratory Tests Test 05/01/23 04:55 Range/Units White Blood Count 8.6 4.3-11.0 10^3/uL Red Blood Count 4.81 3.80-5.11 10^6/uL Hemoglobin 13.7 11.5-16.0 g/dL Hematocrit 42 35-52 % Mean Corpuscular Volume 87 80-99 fL Mean Corpuscular Hemoglobin 29 25-34 pg Mean Corpuscular Hemoglobin Concent 33 32-36 g/dL Red Cell Distribution Width 15.3 H 10.0-14.5 % Platelet Count 365 130-400 10^3/uL Mean Platelet Volume 9.2 9.0-12.2 fL Immature Granulocyte % (Auto) 0 % Neutrophils (%) (Auto) 47 42-75 % Lymphocytes (%) (Auto) 43 12-44 % Monocytes (%) (Auto) 6 0-12 % Eosinophils (%) (Auto) 2 0-10 % Basophils (%) (Auto) 1 0-10 % Neutrophils # (Auto) 4.1 1.8-7.8 10^3/uL Lymphocytes # (Auto) 3.7 1.0-4.0 10^3/uL Monocytes # (Auto) 0.6 0.0-1.0 10^3/uL Eosinophils # (Auto) 0.2 0.0-0.3 10^3/uL Basophils # (Auto) 0.1 0.0-0.1 10^3/uL Immature Granulocyte # (Auto) 0.0 0.0-0.1 10^3/uL Sodium Level 139 135-145 MMOL/L Potassium Level 4.0 3.6-5.0 MMOL/L Chloride Level 108 H 98-107 MMOL/L Carbon Dioxide Level 22 21-32 MMOL/L Anion Gap 9 5-14 MMOL/L Blood Urea Nitrogen 25 H 7-18 MG/DL Creatinine 2.57 H 0.60-1.30 MG/DL Estimat Glomerular Filtration Rate 24 BUN/Creatinine Ratio 10 Glucose Level 94 70-105 MG/DL Calcium Level 8.6 8.5-10.1 MG/DL Corrected Calcium 9.0 8.5-10.1 MG/DL Total Bilirubin 0.2 0.1-1.0 MG/DL Aspartate Amino Transf (AST/SGOT) 25 5-34 U/L Alanine Aminotransferase (ALT/SGPT) 31 0-55 U/L Alkaline Phosphatase 71 40-136 U/L Troponin I < 0.028 <0.028 NG/ML Total Protein 6.5 6.4-8.2 GM/DL Albumin 3.5 3.2-4.5 GM/DL My Orders Orders - GOSIAMAGO DO Chest 1 View, Ap/Pa Only (05/01/23 04:35) Troponin I El (05/01/23 04:35) Cbc With Automated Diff (05/01/23 04:35) Comprehensive Metabolic Panel (05/01/23 04:35) Ekg Tracing (05/01/23 04:35) Vital Signs/I&O 05/01/23 05/01/23 04:31 04:31 Temp 36.5 Pulse 91 Resp 18 B/P (MAP) 169/115 (133) Pulse Ox 94 O2 Delivery Room Air Room Air Capillary Refill : ECG Comment Sinus rhythm at 82 bpm. Normal intervals. Normal axis. Left ventricular hypertrophy. No ST or T wave abnormalities. No ectopy. No STEMI. Departure Communication (Admissions) Patient is hemodynamically stable. EKG is nonischemic. Symptoms present for greater than 12 hours now. Single cardiac enzyme is negative. This places her at low major adverse cardiac event risk for the next 30 days. Advise close primary care follow-up. Chest x-ray is negative for any pulmonary edema, other acute cardiac or pulmonary abnormalities. No bony abnormalities. She is afebrile, nontoxic. She will be discharged in stable condition with close follow-up. Impression Primary Impression: Atypical chest pain Disposition: HOME, SELF-CARE Condition: Stable Departure-Patient Inst. Referrals: BROWN NGUYEN APRN (PCP/Family) Primary Care Physician Patient Instructions: Chest Pain, Adult ED Add. Discharge Instructions: There is no evidence that her symptoms are coming from your heart or serious lung condition at this time. You do not have significant amounts of fluid on your heart at this time and it does not seem like you are having a heart attack. Please follow-up with your primary doctor should your symptoms persist as they are. Return to the emergency department if they worsen in any way concerning to you. MAGO ELISE DO May 01, 2023 04:40
[2023-05-01 05:04] LABS: BASOPHILS # (AUTO) 0.1 10^3/uL (0.0-0.1); BASOPHILS % (AUTO) 1 % (0-10); EOSINOPHILS # (AUTO) 0.2 10^3/uL (0.0-0.3); EOSINOPHILS % (AUTO) 2 % (0-10); HEMATOCRIT 42 % (35-52); HEMOGLOBIN 13.7 g/dL (11.5-16.0); LYMPHOCYTES # (AUTO) 3.7 10^3/uL (1.0-4.0); LYMPHOCYTES % (AUTO) 43 % (12-44); MEAN CORPUSCULAR HEMOGLOBIN 29 pg (25-34); MEAN CORPUSCULAR HGB CONC 33 g/dL (32-36); MEAN CORPUSCULAR VOLUME 87 fL (80-99); MEAN PLATELET VOLUME 9.2 fL (9.0-12.2); MONOCYTES # (AUTO) 0.6 10^3/uL (0.0-1.0); MONOCYTES % (AUTO) 6 % (0-12); NEUTROPHILS # (AUTO) 4.1 10^3/uL (1.8-7.8); NEUTROPHILS % (AUTO) 47 % (42-75); PLATELET COUNT 365 10^3/uL (130-400); WHITE BLOOD COUNT 8.6 10^3/uL (4.3-11.0)
[2023-05-01 05:12] LABS: ALBUMIN 3.5 GM/DL (3.2-4.5); CHLORIDE 108 MMOL/L (98-107); SODIUM 139 MMOL/L (135-145)
[2023-05-01 05:13] LABS: CALCIUM 8.6 MG/DL (8.5-10.1)
[2023-05-01 05:14] LABS: GLUCOSE 94 MG/DL (70-105); TOTAL PROTEIN 6.5 GM/DL (6.4-8.2)
[2023-05-01 05:15] LABS: CARBON DIOXIDE 22 MMOL/L (21-32)
[2023-05-01 05:16] LABS: BILIRUBIN,TOTAL 0.2 MG/DL (0.1-1.0)
[2023-05-01 05:17] LABS: ALKALINE PHOSPHATASE 71 U/L (40-136)
[2023-05-01 05:18] LABS: CREATININE SERUM 2.57 MG/DL (0.60-1.30); GFR ESTIMATED 24
[2023-05-01 05:19] LABS: BUN/CREATININE RATIO 10
[2023-05-01 05:21] LABS: ALANINE AMINOTRANSFERASE 31 U/L (0-55)
[2023-05-01 05:35] VITALS: BP 146/107
--- NOTE | 2023-05-01 06:08 | Diagnostic Imaging Report ---
INDICATION: CP COMPARISON: 04/28/2023 FINDINGS: Single frontal view of the chest demonstrates normal heart size and pulmonary vascularity. The lungs are well aerated and clear. No large pleural effusion or pneumothorax is seen. The visualized osseous structures show no acute abnormalities. Left-sided AICD is again noted. Also again identified is an area of potential focal wire disruption. IMPRESSION: 1. No acute cardiopulmonary process. Dictated by: Dictated on workstation # [id number]
== END 2023-05-01 05:35 | disposition home or self-care (01) ==
LOC: EDUNIT# 04:21 → ER 04:23
DX: R07.89 Other chest pain (principal); E66.9 Obesity, unspecified; Z87.891 Personal history of nicotine dependence; Z68.36 Body mass index [BMI] 36.0-36.9, adult
CPT/HCPCS: 36415; 71045; 80053; 84484; 85025; 93005

== ENCOUNTER 2023-05-04 11:00 | Emergency (ER) | payer MEDICARE, MEDICAID ==
[~2023-05-04] VITALS: Ht 160 cm; Wt 108.8 kg
--- NOTE | 2023-05-04 11:38 | ED Cardiac General ---
History of Present Illness General Chief Complaint: Chest Pain Stated Complaint: CHEST PAINS | DEFIBRILLATOR, PACEMAKER PRESENT Source: patient, family Exam Limitations: clinical condition History of Present Illness Date Seen by Provider: May 04, 2023 Time Seen by Provider: 11:20 Initial Comments 32-year-old female presents to the ER with mother with complaints of and "electrical current feeling" in her left chest and left upper back starting this morning. She reports it has happened a few times intermittently since she got up. Patient has a defibrillator/pacemaker in the left upper chest, the wires in it have been broken for a while. A doctor at [facility] is supposed to fix it at some point. She denies any shortness of air. She was recently admitted for heart failure. She has a history of methamphetamine abuse. 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 Allergies and Home Medications Allergies Coded Allergies: JIA Inhibitors (Verified Allergy, Severe, 05/22/19) ARB-Angiotensin Receptor Antagonist (Verified Allergy, Severe, 05/22/19) amoxicillin (Verified Allergy, Unknown, 05/28/21) baclofen (Unverified Allergy, Unknown, 05/22/19) ON H&P clavulanic acid (Verified Allergy, Unknown, 05/28/21) phenazopyridine (Unverified Allergy, Unknown, 05/22/19) ON H&P Patient Home Medication List Home Medication List Reviewed: Yes Albuterol Sulfate (Rx-Proair) 8 Gm Hfa.aer.ad, 2 PUFF INH Q6H PRN for SHORTNESS OF BREATH, (Reported) Entered as Reported by: BROWN SCHULER on 03/21/15 1434 Amlodipine Besylate (Amlodipine Besylate) 10 Mg Tablet, 10 MG PO DAILY, (Reported) Entered as Reported by: TUNG HELTON on 07/23/15 0737 Apixaban (Eliquis) 5 Mg Tablet, 5 MG PO BID Prescribed by: RALPH DELCID on 11/01/18 1856 Aspirin (Aspirin EC) 81 Mg Tablet.dr, 81 MG PO DAILY Prescribed by: MEGGAN GARCIA on 04/25/23 1414 Biotin (Biotin) 5,000 Mcg Tab.bety, (Reported) Entered as Reported by: MIKY CAMPBELL on 05/22/197 Cyclobenzaprine HCl (Cyclobenzaprine HCl) 10 Mg Tablet, 10 MG PO BID PRN for chest wall pain/muscle spasm Prescribed by: EDISON CHAMBERLAIN on 12/24/21 0206 Famotidine (Famotidine) 20 Mg Tablet, (Reported) Entered as Reported by: TALISHA CELIS on 08/05/181810 Furosemide (Lasix) 40 Mg Tablet, 40 MG PO DAILY Prescribed by: MEGGAN GARCIA on 04/25/23 1414 Gabapentin (Gabapentin) 100 Mg Capsule, 100 MG PO Q8H PRN for burning pain/neuropathy thumb Prescribed by: EDISON CHAMBERLAIN on 04/14/22 0337 Metoprolol Tartrate (Metoprolol Tartrate) 50 Mg Tablet, 50 MG PO BID Prescribed by: FELECIA FORTUNE on 07/24/15 0841 Potassium Chloride (Potassium Chloride) 10 Meq Tab.er.prt, 10 MEQ PO DAILY Prescribed by: MEGGAN GARCIA on 04/25/23 1414 Ropinirole HCl (Ropinirole HCl) 0.5 Mg Tablet, (Reported) Entered as Reported by: TALISHA CELIS on 08/05/181809 [Clonidine Hydrochloride .2 Mg ] , (Reported) Entered as Reported by: MIKY CAMPBELL on 05/22/192115 [Meloxicam 15 Mg Tabs] , (Reported) Entered as Reported by: MIKY CAMPBELL on 05/22/192115 [Metoprolol Tartrate 100 Mg Tab] , (Reported) Entered as Reported by: MIKY CAMPBELL on 05/22/191929 [Olanzapine 10 Mg Tabs] , (Reported) Entered as Reported by: MIKY CAMPBELL on 05/22/192115 [Oxcarbazepine 300 Mg Tabs] , (Reported) Entered as Reported by: MIKY CAMPBELL on 05/22/192115 Review of Systems Review of Systems Constitutional: see HPI Past Zplpqmc-Ttvkil-Rtynki Hx Patient Social History Tobacco Use?: No Use of E-Cig and/or Vaping dev: No Substance use?: No Alcohol Use?: No Pt feels they are or have been: No Immunizations Up To Date Tetanus Booster (TDap): Unknown PED Vaccines UTD: Yes First/Initial COVID19 Vaccinat: X3 Second COVID19 Vaccination Adair: Pfizer Third COVID19 Vaccination Date: Pfizer Seasonal Allergies Seasonal Allergies: No Past Medical History Surgery/Hospitalization HX: DEFIBRILLATOR, PACEMAKER REMOVED, HEART FAILURE, HTN, HIGH CHOLESTEROL, Surgeries: Yes (PACER/DEFIB 2014; DEFIB PLACED 05/10/19. PEG TUBE- REMOVED;UTERINE ABLATION) Abdominal, Section, Defibrillator, Gallbladder, Hysterectomy, Pacemaker Respiratory: Yes (ARDS-CODED; PNEUMOTHORAX 06/2015) Pneumonia, Chronic Bronchitis Currently Using CPAP: No Currently Using BIPAP: No Cardiac: Yes (PULMONARY EDEMA/CARDIAC CAUSE-R/T ATRIAL THROMBUS; CARDIAC ARREST;V-FIB ) Cardiomyopathy, Endocarditis, Hypertension, Valvular Heart Disease Neurological: Yes (encephalopathy-hypoxia, anoxic brain injury; POOR MEMORY;SLURRED SPEECH) Reproductive Disorders: Yes (ENDOMETRIAL ABLATION) Female Reproductive Disorders: Menstrual Problems Sexually Transmitted Disease: No Genitourinary: Yes (BASELINE CREATININE BETWEEN 2 & 3) Renal Failure Gastrointestinal: Yes Gastroesophageal Reflux Musculoskeletal: Yes (GAIT DISTURBANCE) Endocrine: No (OBESITY) HEENT: No Loss of Vision: Denies Hearing Impairment: Denies Cancer: No Psychosocial: Yes (SUBSTANCE ABUSE) Anxiety, Bipolar, Depression Integumentary: No Blood Disorders: Yes (ANEMIA) Family Medical History Patient reports no known family medical history. 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 SHE HAS HAD A DEFIBRILLATOR IN PLACE SINCE AGE 24. Physical Exam Vital Signs Vital Signs - First Documented 05/04/23 11:07 Pulse 90 Resp 16 B/P (MAP) 175/122 (139) Pulse Ox 97 O2 Delivery Room Air Capillary Refill : Height, Weight, BMI Height: 5'3.00" Weight: 234lbs. 0oz. 106.439169te; 36.00 BMI Method:Stated General Appearance: No Apparent Distress, WD/WN Neck: Normal Inspection, Supple Respiratory: Chest Non Tender, Lungs Clear, Normal Breath Sounds, No Accessory Muscle Use, No Respiratory Distress Cardiovascular: Regular Rate, Rhythm Neurologic/Psychiatric: Alert, Normal Mood/Affect Skin: Normal Color, Warm/Dry Progress/Results/Core Measures Results/Orders Vital Signs/I&O 05/04/23 05/04/23 11:07 13:50 Pulse 90 98 Resp 16 23 B/P (MAP) 175/122 (139) 160/126 Pulse Ox 97 93 O2 Delivery Room Air Room Air Progress Progress Note : Progress Note Patient seen and evaluated, resting comfortably in bed, no acute distress. I called Dr. Burgos, cardiology, office to find out which doctor patient was referred to to have her pacemaker/defibrillator fixed. Patient has seen Dr. Isabel vega, cardiology. Patient's defibrillator/pacemaker was interrogated. No arrhythmias were noted on interrogation. Only findings were of the currently known problems with the leads. I called and spoke with Dr. Devries, cardiology at , regarding findings. He states that someone from the office will call the patient to schedule a follow-up appointment for extraction of the pacemaker/defibrillator. He states that if they do not call by tuesday, that she needs to call them to schedule appointment. Results and plan of care discussed with patient and patient's mother. Patient is agreeable to discharge plan. Discharge instru ctions and return precautions provided. Initial ECG Impression Date: May 04, 2023 Initial ECG Impression Time: 11:09 Initial ECG Rate: 88 Initial ECG Rhythm: Normal Sinus Initial ECG Intervals: Normal Initial ECG Comparisson: Unchanged Comment No change from EKG on 04/28/2023. Departure Impression Primary Impression: Pacemaker complications Qualified Codes: T82.9XXD - Unspecified complication of cardiac and vascular prosthetic device, implant and graft, subsequent encounter Disposition: 01 HOME, SELF-CARE Condition: Stable Departure-Patient Inst. Referrals: LC DEVRIES MD, AMANDA S APRN (PCP) Primary Care Physician Patient Instructions: Pacemakers Add. Discharge Instructions: Follow-up with Dr. Devries, their office will call you to schedule an appointment. If you do not hear from them by next May 10, you should call them and schedule a follow-up appointment. Return for chest pain, shortness of air, defibrillator shock, or any other new, concerning, or worsening symptoms. All discharge instructions reviewed with patient and/or family. Voiced understanding. ROQUE HENAO APRN May 04, 2023 11:38
[2023-05-04 13:50] VITALS: BP 160/126
== END 2023-05-04 13:50 | disposition home or self-care (01) ==
LOC: EDUNIT# 11:00 → ER 11:02
DX: T82.897A Other specified complication of cardiac prosthetic devices, implants and grafts, initial encounter (principal); E66.9 Obesity, unspecified; Y71.8 Miscellaneous cardiovascular devices associated with adverse incidents, not elsewhere classified; Z68.41 Body mass index [BMI] 40.0-44.9, adult; Z87.891 Personal history of nicotine dependence
CPT/HCPCS: 93005

== ENCOUNTER 2023-05-08 02:25 | Emergency (ER) | payer MEDICARE, MEDICAID ==
[~2023-05-08] VITALS: Ht 160 cm; Wt 113.0 kg
[~2023-05-08 02:25] MED LIST changes: -ROPI0.5T4; +ROPI0.5T4 PO
--- NOTE | 2023-05-08 03:39 | ED Fall/Injury ---
General Chief Complaint: Trauma-Non Activation Stated Complaint: FALL,HEAD,RT ARM & RT HIP PAIN Nursing Triage Note: PATIENT STATES SHE WAS IN KITCHEN SLIPPED AND FELL. STATES SKID INTO WALL. COMPLAINT OF CHEST AND HEAD PAIN Source: patient, mother History of Present Illness Date Seen by Provider: May 08, 2023 Time Seen by Provider: 02:35 Initial Comments PT ARRIVES VIA POV FROM HOME WITH MOTHER AND HER DAUGHTER C/O SLIPPED IN THE KITCHEN AND FELL SLIPPED AND FELL IN KITCHEN, MOTHER IN KITCHEN AND SAW HER SLIDE DOWN TO THE FLOOR AGAINST THE REFRIGERATOR. PT STATES SHE HIT THE RIGHT SIDE OF HER HEAD, HER RIGHT SHOULDER AND HER RIGHT HIP STATES WHEN SHE LANDED, HER RIGHT ARM HIT HER LEFT CHEST OVER HER PACEMAKER. SHE IS REPEATED HITTING HER LEFT CHEST WITH HER RIGHT ARM TO "DEMONSTRATE" THIS. SHE REPEATEDLY STATES THAT HER CHEST DOES NOT HURT, AND SHE DOES NOT FEEL SHORT OF BREATH NO LOSS OF CONSCIOUSNESS NO NECK OR BACK PAIN NO VISION CHANGES NO DIZZINESS NO NEW PARESTHSIAS OR MOTOR DEFICITS PT WITH A MULTITUDE OF VISITS FOR VARIOUS COMPLAINTS THIS IS PT'S 4TH VISIT IN [facility]IL, WITH 14 VISITS IN 2022. PT HAS HISTORY OF CARDIOPULMONARY ARREST DUE TO METHAMPHETAMINE USE, WITH ANOXIC BRAIN INJURY. SHE HAS A DEFIBRILLATOR IN PLACE, WITH KNOWN BROKEN LEAD, WHICH SHE HAS NEVER HAD REPLACED. SHE IS ON ASPIRIN AND ELIQUIS--SHE DENIES ANY MISSED DOSES. MOTHER STATES SHE NOW MONITORS PT'S MEDICATIONS, AND KEEPS THEM IN HER BEDROOM, SO PT CANNOT GET THEM ON HER OWN. PCP: [facility] Allergies and Home Medications Allergies Coded Allergies: JIA Inhibitors (Verified Allergy, Severe, 05/22/19) ARB-Angiotensin Receptor Antagonist (Verified Allergy, Severe, 05/22/19) amoxicillin (Verified Allergy, Unknown, 05/28/21) baclofen (Unverified Allergy, Unknown, 05/22/19) ON H&P clavulanic acid (Verified Allergy, Unknown, 05/28/21) phenazopyridine (Unverified Allergy, Unknown, 05/22/19) ON H&P Patient Home Medication List Amlodipine Besylate (Amlodipine Besylate) 10 Mg Tablet, 10 MG PO DAILY, (Reported) Entered as Reported by: TUNG HELTON on 07/23/15 0737 Apixaban (Eliquis) 5 Mg Tablet, 5 MG PO BID, (Reported) Entered as Reported by: RAND LOPEZ on 05/10/23 164 Aspirin (Aspirin EC) 81 Mg Tablet., 81 MG PO DAILY, (Reported) Entered as Reported by: RAND LOPEZ on 05/10/23 164 Escitalopram Oxalate (Escitalopram Oxalate) 20 Mg Tablet, 20 MG PO DAILY, (Reported) Entered as Reported by: RAND LOPEZ on 05/10/231643 Furosemide (Furosemide) 40 Mg Tablet, 40 MG PO BID, (Reported) Entered as Reported by: RAND LOPEZ on 05/10/23 164 Metoprolol Tartrate (Metoprolol Tartrate) 100 Mg Tablet, 100 MG PO BID, (Reported) Entered as Reported by: RAND LOPEZ on 05/10/231643 Multivit-Min/Folic Acid/Biotin (Hair, Skin & Nails Caplet) 66.7 Mcg-1,000 Mcg Tablet, 1 EACH PO DAILY, (Reported) Entered as Reported by: RAND LOPEZ on 05/10/231646 Potassium Chloride (K-Tab ER) 10 Meq Tablet.er, 10 MEQ PO BID, (Reported) Entered as Reported by: RAND LOPEZ on 05/10/23 164 Ropinirole HCl (Ropinirole HCl) 0.5 Mg Tablet, 0.5 MG PO HS, (Reported) Entered as Reported by: TALISHA CELIS on 08/05/18 1810 Discontinued Medications Albuterol Sulfate (Rx-Proair) 8 Gm Hfa.aer.ad, 2 PUFF INH Q6H PRN for SHORTNESS OF BREATH, (Reported) Discontinued Reason: Duplicate Order Entered as Reported by: BROWN SCHULER on 03/21/15 1434 Apixaban (Eliquis) 5 Mg Tablet, 5 MG PO BID Discontinued Reason: Duplicate Order Prescribed by: RALPH DELCID on 11/01/18 1856 Aspirin (Aspirin EC) 81 Mg Tablet., 81 MG PO DAILY Discontinued Reason: Duplicate Order Prescribed by: MEGGAN GARCIA on 04/25/23 1414 Biotin (Biotin) 5,000 Mcg Tab.rapdis, (Reported) Discontinued Reason: Duplicate Order Entered as Reported by: MIKY CAMPBELL on 05/22/19 2117 Clonidine (Clonidine TTS 2 Patch) 0.2 Mg/24 Hour Patch.tdwk, 0.2 PATCH TD WEEK, (Reported) Discontinued Reason: No Longer Taking Entered as Reported by: RAND LOPEZ on 05/10/23 1644 Cyclobenzaprine HCl (Cyclobenzaprine HCl) 10 Mg Tablet, 10 MG PO BID PRN for chest wall pain/muscle spasm Discontinued Reason: Duplicate Order Prescribed by: EDISON CHAMBERLAIN on 12/24/21 0206 Famotidine (Famotidine) 20 Mg Tablet, (Reported) Discontinued Reason: Duplicate Order Entered as Reported by: TALISHA CELIS on 08/05/18 1811 Furosemide (Lasix) 40 Mg Tablet, 40 MG PO DAILY Discontinued Reason: Duplicate Order Prescribed by: MEGGAN GARCIA on 04/25/23 1414 Gabapentin (Gabapentin) 100 Mg Capsule, 100 MG PO Q8H PRN for burning pain/ne uropathy thumb Discontinued Reason: Duplicate Order Prescribed by: EDISON CHAMBERLAIN on 04/14/22 0337 Metoprolol Tartrate (Metoprolol Tartrate) 50 Mg Tablet, 50 MG PO BID Discontinued Reason: Duplicate Order Prescribed by: FELECIA FORTUNE on 07/24/15 0841 Potassium Chloride (Potassium Chloride) 10 Meq Tab.er.prt, 10 MEQ PO DAILY Discontinued Reason: Duplicate Order Prescribed by: MEGGAN GARCIA on 04/25/23 1414 [Clonidine Hydrochloride .2 Mg ] , (Reported) Discontinued Reason: Duplicate Order Entered as Reported by: MIKY CAMPBELL on 05/22/192115 [Meloxicam 15 Mg Tabs] , (Reported) Discontinued Reason: Duplicate Order Entered as Reported by: MIKY CAMPBELL on 05/22/192115 [Metoprolol Tartrate 100 Mg Tab] , (Reported) Discontinued Reason: Duplicate Order Entered as Reported by: MIKY CAMPBELL on 05/22/19 193 [Olanzapine 10 Mg Tabs] , (Reported) Discontinued Reason: Duplicate Order Entered as Reported by: MIKY CAMPBELL on 05/22/192115 [Oxcarbazepine 300 Mg Tabs] , (Reported) Discontinued Reason: Duplicate Order Entered as Reported by: MIKY CAMPBELL on 05/22/192115 Review of Systems Review of Systems Constitutional: no symptoms reported Eyes: No Symptoms Reported Ears, Nose, Mouth, Throat: no symptoms reported Respiratory: no symptoms reported; No short of breath Cardiovascular: no symptoms reported; No chest pain Gastrointestinal: no symptoms reported; No nausea, No vomiting Genitourinary: no symptoms reported Musculoskeletal: see HPI Skin: no symptoms reported Psychiatric/Neurological: See HPI, Headache (ONLY ON RIGHT SIDE OF HEAD WHERE SHE BUMPED IT) Past Nhhmjda-Hacaik-Sayulr Hx Immunizations Up To Date Tetanus Booster (TDap): Unknown PED Vaccines UTD: Yes First/Initial COVID19 Vaccinat: X3 Second COVID19 Vaccination Adair: Pfizer Third COVID19 Vaccination Date: Social Tools Seasonal Allergies Seasonal Allergies: No Past Medical History Surgery/Hospitalization HX: DEFIBRILLATOR, PACEMAKER REMOVED, HEART FAILURE, HTN, HIGH CHOLESTEROL, Surgeries: Yes (PACER/DEFIB 2014; DEFIB PLACED 05/10/19. PEG TUBE- REMOVED;UTERINE ABLATION) Abdominal, Section, Defibrillator, Gallbladder, Hysterectomy, Pacemaker Respiratory: Yes (ARDS-CODED; PNEUMOTHORAX 06/2015) Pneumonia, Chronic Bronchitis Currently Using CPAP: No Currently Using BIPAP: No Cardiac: Yes (PULMONARY EDEMA/CARDIAC CAUSE-R/T ATRIAL THROMBUS; CARDIAC ARREST;V-FIB ) Cardiomyopathy, Endocarditis, Hypertension, Valvular Heart Disease Neurological: Yes (encephalopathy-hypoxia, anoxic brain injury; POOR MEMORY;SLURRED SPEECH) Reproductive Disorders: Yes (ENDOMETRIAL ABLATION) Female Reproductive Disorders: Menstrual Problems Sexually Transmitted Disease: No Genitourinary: Yes (BASELINE CREATININE BETWEEN 2 & 3) Renal Failure Gastrointestinal: Yes Gastroesophageal Reflux Musculoskeletal: Yes (GAIT DISTURBANCE) Endocrine: No (OBESITY) HEENT: No Loss of Vision: Denies Hearing Impairment: Denies Cancer: No Psychosocial: Yes (SUBSTANCE ABUSE) Anxiety, Bipolar, Depression Integumentary: No Blood Disorders: Yes (ANEMIA) Family Medical History Patient reports no known family medical history. 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 SHE HAS HAD A DEFIBRILLATOR IN PLACE SINCE AGE 24. SHE Physical Exam Vital Signs Vital Signs - First Documented 05/08/23 02:45 Temp 35.2 Pulse 81 Resp 20 B/P (MAP) 147/121 (130) Pulse Ox 97 O2 Delivery Room Air Capillary Refill : Less Than 3 Seconds Height, Weight, BMI Height: 5'3.00" Weight: 234lbs. 0oz. 106.092058md; 44.00 BMI Method:Stated General Appearance: WD/WN, no apparent distress, other (SLEEPING SOUNDLY, LAYING ON RIGHT SIDE ( SIDE OF REPORTED SHOULDER AND HIP AND HEAD PAIN) ) HEENT: PERRL/EOMI, normal ENT inspection, TMs normal, pharynx normal, other (SLIGHT TENDERNESS TO RIGHT SIDE OF HEAD, BUT NO EXTERNAL EVIDENCE OF TRAUMA TO HEAD) Neck: non-tender, full range of motion, supple, normal inspection Cardiovascular: regular rate, rhythm, no murmur Respiratory: chest non-tender, normal breath sounds, no respiratory distress, no accessory muscle use Gastrointestinal: non tender, soft Back: normal inspection, no CVA tenderness, no vertebral tenderness Extremities: normal range of motion, no pedal edema, no calf tenderness, normal capillary refill, other (MINIMAL TENDERNESS TO RIGHT SHOULDER AND RIGHT HIP. FULL ROM. 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 ) Skin: normal color (PT IS BLACK), warm/dry; No ecchymosis; other (NO EXTERNAL EVIDENCE OF TRAUMA NOTED ANYWHERE) [place] Coma Score Best Eye Response: (4) Open Spontaneously Best Verbal Response: (5) Oriented Best Motor Response: (6) Obeys Commands [place] Total: 15 Progress/Results/Core Measures Results/Orders My Orders Orders - RODRIGO HILL DO Ct Head/Cervical Spine Wo (05/08/23 02:46) Chest 1 View, Ap/Pa Only (05/08/23 02:46) Shoulder, Right, 3 Views (05/08/23 02:46) Pelvis With Right Hip 2-3views (05/08/23 02:46) Vital Signs/I&O 05/08/23 05/08/23 02:45 04:00 Temp 35.2 Pulse 81 80 Resp 20 18 B/P (MAP) 147/121 (130) 141/100 Pulse Ox 97 96 O2 Delivery Room Air Room Air Blood Pressure Mean: 130 Progress Progress Note : Progress Note UNEVENTFUL ER STAY PT SLEPT FOR ENTIRE ER STAY, EASILY AWAKENS WALKS AND MOVES WITHOUT DIFFICULTY PT STATES SHE IS NOT HURTING AT DISMISSAL REVIEWED PRIOR RECORDS, INCLUDING ER VISITS, ADMITS/H&P'S/CONSULTS/DISCHARGE SUMMARIES, TESTS/PROCEDURES DISCUSSED TEST RESULTS WITH PT AND MOTHER, ANTICIPATED COURSE, SYMPTOMATIC TREATMENT, NEED FOR FOLLOW UP AND RETURN PRECAUTIONS Diagnostic Imaging Comments XRAYS--ALL PENDING RADIOLOGIST REVIEW: CXR--NO ACUTE PROCESS, NO CHF, NO PNUEMONIA, NO EFFUSION, NO PNEUMOTHORAX OR OBVIOUS RIB FRACTURES XRAYS RIGHT SHOULDER--NO ACUTE PROCESS XRAYS PELVIS AND RIGHT HIP--NO ACUTE PROCESS CT HEAD/CERVICAL SPINE--PER [facility] VIA FAX AT 4040 -NO ACUTE ABNORMALITY Reviewed: Reviewed by Me Departure Impression Primary Impression: Fall from standing Additional Impressions: Acute head injury without loss of consciousness Contusion of right shoulder Contusion of right hip Disposition: HOME, SELF-CARE Condition: Stable Departure-Patient Inst. Decision time for Depature: 03:35 Referrals: BROWN NGUYEN APRN (PCP/Family) Primary Care Physician Patient Instructions: Hip Pain (DC), Minor Contusion ED, Minor Head Injury, Adult ED, Preventing Falls ED, Shoulder Pain ED Add. Discharge Instructions: HOME, REST YOU MAY TAKE TYLENOL NEEDED FOR PAIN FOLLOW UP WITH YOUR DR IN 2-3 DAYS IF NO BETTER, RETURN TO ER IF WORSE All discharge instructions reviewed with patient and/or family. Voiced understanding. RODRIGO HILL DO May 08, 2023 03:39
[2023-05-08 04:00] VITALS: BP 141/100
--- NOTE | 2023-05-08 06:39 | Diagnostic Imaging Report ---
PROCEDURE: CT head and CT cervical spine without contrast. TECHNIQUE: Multiple contiguous axial images were obtained through the brain and cervical spine without the use of intravenous contrast. Sagittal and coronal reformations through the cervical spine were then performed. Auto Exposure Controls were utilized during the CT exam to meet ALARA standards for radiation dose reduction. INDICATION: Fall. Comparison is made with prior head CT from 06/26/2021. CT HEAD: The ventricles and sulci are within normal limits. No sulcal effacement or midline shift is identified. No acute intra-axial or extra-axial hemorrhage is detected. Cisterns are patent. Visualized paranasal sinuses are clear. IMPRESSION: No acute intracranial process is detected. CT cervical spine: There is some reversal of the normal cervical lordotic curvature. No fracture or subluxation is identified. Prevertebral tissues are within normal limits. The odontoid is intact. IMPRESSION: Reversal of the normal cervical curvature. No acute bony abnormality is detected. Dictated by: Dictated on workstation # [id number]
--- NOTE | 2023-05-08 07:51 | Diagnostic Imaging Report ---
CLINICAL HISTORY: Right shoulder pain. COMPARISON: None. TECHNIQUE: 3 views of the right shoulder. FINDINGS: There is no acute fracture or dislocation of the right shoulder. Alignment is anatomic. The imaged joint spaces are preserved. No focal osseous lesions. The included right lung is clear. IMPRESSION: 1. No acute fracture or dislocation in the right shoulder. Dictated by: Dictated on workstation # [id number]
--- NOTE | 2023-05-08 07:53 | Diagnostic Imaging Report ---
CLINICAL HISTORY: Pelvic and right hip pain. COMPARISON: None. TECHNIQUE: 3 views of the pelvis and right hip. FINDINGS: There is no acute fracture or dislocation of the pelvis and right hip. Alignment is anatomic. The imaged joint spaces are preserved. No focal osseous lesions. Phleboliths are seen in the pelvis. IMPRESSION: 1. No acute fracture or dislocation in the pelvis and right hip. Dictated by: Dictated on workstation # [id number]
--- NOTE | 2023-05-08 08:03 | Diagnostic Imaging Report ---
Indication: Fall and chest pain. Time of Exam: 3:05 AM Correlation is made with prior chest from 05/01/2023. Heart size is stable. AICD remains in place. Potential partial wire disrupted is again seen. Lungs are clear. No infiltrates are detected. There is no effusion or pneumothorax. IMPRESSION: Stable chest. No acute feature is detected. Dictated by: Dictated on workstation # [id number]
== END 2023-05-08 04:01 | disposition home or self-care (01) ==
LOC: EDUNIT# 02:25 → ER 02:27
DX: S09.90XA Unspecified injury of head, initial encounter (principal); S40.011A Contusion of right shoulder, initial encounter; S70.01XA Contusion of right hip, initial encounter; E66.9 Obesity, unspecified; Z87.891 Personal history of nicotine dependence; Z68.41 Body mass index [BMI] 40.0-44.9, adult; Z79.82 Long term (current) use of aspirin; Z79.02 Long term (current) use of antithrombotics/antiplatelets; W01.198A Fall on same level from slipping, tripping and stumbling with subsequent striking against other object, initial encounter; Y92.000 Kitchen of unspecified non-institutional (private) residence as the place of occurrence of the external cause
CPT/HCPCS: 70450; 71045; 72125; 73030

== ENCOUNTER 2023-05-09 04:56 | Inpatient (IN) | payer MEDICARE, MEDICAID ==
[~2023-05-09] VITALS: Ht 160 cm; Wt 103.4 kg
[2023-05-09] VITALS (9 sets, daily range): BP systolic 138–175; BP diastolic 105–146
--- NOTE | 2023-05-09 05:16 | ED Chest Pain ---
General Chief Complaint: Chest Pain Stated Complaint: CP Nursing Triage Note: COMPLAINT OF CHEST PAIN ALL NIGHT, STATES RESTING WHEN STARTED. Source: patient Exam Limitations: no limitations (RICH CRUZ MD) History of Present Illness Date Seen by Provider: May 09, 2023 Time Seen by Provider: 05:15 Initial Comments Patient is a 32-year-old female who presents to the emergency room with a chief complaint of midsternal chest pain. "all night". Cannot give a time of onset. Patient describes the pain as "like somebody sitting on my chest". It does not radiate. She is not nauseous. She states she was a little short of breath on arrival, ARAVIDN Khan notes that the patient was satting 90% on room air. She states it appeared that the patient was anxious. She is 97% on 1 to 2 L. She denies any recent illnesses such as fevers, productive cough, runny nose or congestion. She denies swelling in her legs or pain in her calves. She states her daughter has recently had strep throat, the patient does not have sore throat. She tells me she does not smoke. She took some Tylenol at 6 PM for the pain last evening. She states she took her daily prescribed medications at around 4 AM this morning. This includes amlodipine and metoprolol. Patient has had multiple visits to the emergency department for various complaints. She has a history of anoxic brain injury (2014 per review of medical records; due to sudden cardiac ) and nonischemic cardiomyopathy. Heart cath 2014 - no obstructive disease pattern. Chronically anticoagulated on Eliquis. She has an ICD in place. She was just here last evening after a fall at home - had CXR and CT head and neck with basic labs. ALl normal. States she is compliant with her medications. Denies recent methamphetamine use (history of use in medical record). Timing/Duration: 12 hours Severity/Quality: pressure Location: substernal Radiation: no radiation Activities at Onset: none Prior CP/Workup: echocardiography ASA po DESK LIEUTENANT: No NTG SL DESK LIEUTENANT: No Associated Symptoms: shortness of breath (RICH CRUZ MD) Allergies and Home Medications Allergies Coded Allergies: JIA Inhibitors (Verified Allergy, Severe, 05/22/19) ARB-Angiotensin Receptor Antagonist (Verified Allergy, Severe, 05/22/19) amoxicillin (Verified Allergy, Unknown, 05/28/21) baclofen (Unverified Allergy, Unknown, 05/22/19) ON H&P clavulanic acid (Verified Allergy, Unknown, 05/28/21) phenazopyridine (Unverified Allergy, Unknown, 05/22/19) ON H&P Patient Home Medication List Home Medication List Reviewed: Yes (RICH CRUZ MD) Albuterol Sulfate (Rx-Proair) 8 Gm Hfa.aer.ad, 2 PUFF INH Q6H PRN for SHORTNESS OF BREATH, (Reported) Entered as Reported by: BROWN SCHULER on 03/21/15 1434 Amlodipine Besylate (Amlodipine Besylate) 10 Mg Tablet, 10 MG PO DAILY, (Reported) Entered as Reported by: TUNG HELTON on 07/23/15 0737 Apixaban (Eliquis) 5 Mg Tablet, 5 MG PO BID Prescribed by: RALPH DELCID on 11/01/18 1856 Aspirin (Aspirin EC) 81 Mg Tablet.dr, 81 MG PO DAILY Prescribed by: MEGGAN GARCIA on 04/25/23 1414 Biotin (Biotin) 5,000 Mcg Tab.rapdis, (Reported) Entered as Reported by: MIKY CAMPBELL on 05/22/192116 Cyclobenzaprine HCl (Cyclobenzaprine HCl) 10 Mg Tablet, 10 MG PO BID PRN for chest wall pain/muscle spasm Prescribed by: EDISON CHAMBERLAIN on 12/24/21 0206 Famotidine (Famotidine) 20 Mg Tablet, (Reported) Entered as Reported by: TALISHA CELIS on 08/05/18 181 Furosemide (Lasix) 40 Mg Tablet, 40 MG PO DAILY Prescribed by: MEGGAN GARCIA on 04/25/23 1414 Gabapentin (Gabapentin) 100 Mg Capsule, 100 MG PO Q8H PRN for burning pain/neuropathy thumb Prescribed by: EDISON CHAMBERLAIN on 04/14/22 0337 Metoprolol Tartrate (Metoprolol Tartrate) 50 Mg Tablet, 50 MG PO BID Prescribed by: FELECIA PATTERSON on 07/24/15 0841 Potassium Chloride (Potassium Chloride) 10 Meq Tab.er.prt, 10 MEQ PO DAILY Prescribed by: MEGGAN GARCIA on 04/25/23 1414 Ropinirole HCl (Ropinirole HCl) 0.5 Mg Tablet, (Reported) Entered as Reported by: TALISHA CELIS on 08/05/181809 [Clonidine Hydrochloride .2 Mg ] , (Reported) Entered as Reported by: MIKY CAMPBELL on 05/22/192115 [Meloxicam 15 Mg Tabs] , (Reported) Entered as Reported by: MIKY CAMPBELL on 05/22/192115 [Metoprolol Tartrate 100 Mg Tab] , (Reported) Entered as Reported by: MIKY CAMPBELL on 05/22/191929 [Olanzapine 10 Mg Tabs] , (Reported) Entered as Reported by: MIKY CAMPBELL on 05/22/192115 [Oxcarbazepine 300 Mg Tabs] , (Reported) Entered as Reported by: MIKY CAMPBELL on 05/22/192115 Review of Systems Review of Systems Constitutional: see HPI EENTM: No Symptoms Reported Respiratory: Shortness of Air Cardiovascular: Chest Pain Gastrointestinal: No Symptoms Reported Genitourinary: No Symptoms Reported Musculoskeletal: no symptoms reported (RICH CRUZ MD) All Other Systems Reviewed Negative Unless Noted: Yes (RICH CRUZ MD) Past Yqzolqr-Fvsisp-Mlutgo Hx Patient Social History Tobacco Use?: No (RICH CRUZ MD) Immunizations Up To Date Tetanus Booster (TDap): Unknown PED Vaccines UTD: Yes First/Initial COVID19 Vaccinat: X3 Second COVID19 Vaccination Adair: Pfizer Third COVID19 Vaccination Date: Pfizer (RICH CRUZ MD) Seasonal Allergies Seasonal Allergies: No (RICH CRUZ MD) Past Medical History Surgery/Hospitalization HX: DEFIBRILLATOR, PACEMAKER REMOVED, HEART FAILURE, HTN, HIGH CHOLESTEROL, Surgeries: Yes (PACER/DEFIB 2014; DEFIB PLACED 05/10/19. PEG TUBE- REMOVED;UTERINE ABLATION) Abdominal, Section, Defibrillator, Gallbladder, Hysterectomy, Pacemaker Respiratory: Yes (ARDS-CODED; PNEUMOTHORAX 06/2015) Pneumonia, Chronic Bronchitis Currently Using CPAP: No Currently Using BIPAP: No Cardiac: Yes (PULMONARY EDEMA/CARDIAC CAUSE-R/T ATRIAL THROMBUS; CARDIAC ARREST;V-FIB ) Cardiomyopathy, Endocarditis, Hypertension, Valvular Heart Disease Neurological: Yes (encephalopathy-hypoxia, anoxic brain injury; POOR MEMORY;SL URRED SPEECH) Reproductive Disorders: Yes (ENDOMETRIAL ABLATION) Female Reproductive Disorders: Menstrual Problems Sexually Transmitted Disease: No Genitourinary: Yes (BASELINE CREATININE BETWEEN 2 & 3) Renal Failure Gastrointestinal: Yes Gastroesophageal Reflux Musculoskeletal: Yes (GAIT DISTURBANCE) Endocrine: No (OBESITY) HEENT: No Loss of Vision: Denies Hearing Impairment: Denies Cancer: No Psychosocial: Yes (SUBSTANCE ABUSE) Anxiety, Bipolar, Depression Integumentary: No Blood Disorders: Yes (ANEMIA) (RICH CRUZ MD) Family Medical History Patient reports no known family medical history. 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 SHE HAS HAD A DEFIBRILLATOR IN PLACE SINCE AGE 24. (RICH CRUZ MD) Physical Exam Vital Signs Vital Signs - First Documented 05/09/23 05:02 Pulse 92 Resp 20 B/P (MAP) 154/124 (134) Pulse Ox 91 O2 Delivery Room Air (FEDE AMARO MD) Vital Signs Capillary Refill : Less Than 3 Seconds (RICH CRUZ MD) Height, Weight, BMI Height: 5'3.00" Weight: 234lbs. 0oz. [id number]; 40.00 BMI Method:Stated General Appearance: No Apparent Distress, WD/WN, Obese HEENT: PERRL/EOMI Neck: Normal Inspection Respiratory: Lungs Clear, Normal Breath Sounds, No Accessory Muscle Use, No Respiratory Distress, Other (tenderness to palpation over the mid sternum) Cardiovascular: Regular Rate, Rhythm (HR=90 bpm), Normal Peripheral Pulses Gastrointestinal: Non Tender, Soft Extremity: Normal Inspection, Normal Range of Motion, Non Tender, No Calf Tenderness, No Pedal Edema Neurologic/Psychiatric: Alert, Oriented x3, No Motor/Sensory Deficits, Other (patient has slurred speech, difficult to understand (per review of medical records and nursing staff - this is her usual); she is occasionally having intermittent "twitching" type movements.) Skin: Normal Color, Warm/Dry (RICH CRUZ MD) Progress/Results/Core Measures Results/Orders Lab Results Laboratory Tests Test 05/09/23 05:10 05/09/23 05:25 05/09/23 07:50 Range/Units White Blood Count 9.0 4.3-11.0 10^3/uL Red Blood Count 4.80 3.80-5.11 10^6/uL Hemoglobin 13.9 11.5-16.0 g/dL Hematocrit 42 35-52 % Mean Corpuscular Volume 87 80-99 fL Mean Corpuscular Hemoglobin 29 25-34 pg Mean Corpuscular Hemoglobin Concent 33 32-36 g/dL Red Cell Distribution Width 15.5 H 10.0-14.5 % Platelet Count 377 130-400 10^3/uL Mean Platelet Volume 9.4 9.0-12.2 fL Immature Granulocyte % (Auto) 0 % Neutrophils (%) (Auto) 44 42-75 % Lymphocytes (%) (Auto) 47 H 12-44 % Monocytes (%) (Auto) 6 0-12 % Eosinophils (%) (Auto) 2 0-10 % Basophils (%) (Auto) 1 0-10 % Neutrophils # (Auto) 3.9 1.8-7.8 10^3/uL Lymphocytes # (Auto) 4.2 H 1.0-4.0 10^3/uL Monocytes # (Auto) 0.5 0.0-1.0 10^3/uL Eosinophils # (Auto) 0.2 0.0-0.3 10^3/uL Basophils # (Auto) 0.1 0.0-0.1 10^3/uL Immature Granulocyte # (Auto) 0.0 0.0-0.1 10^3/uL Sodium Level 141 135-145 MMOL/L Potassium Level 3.9 3.6-5.0 MMOL/L Chloride Level 108 H 98-107 MMOL/L Carbon Dioxide Level 23 21-32 MMOL/L Anion Gap 10 5-14 MMOL/L Blood Urea Nitrogen 19 H 7-18 MG/DL Creatinine 2.64 H 0.60-1.30 MG/DL Estimat Glomerular Filtration Rate 24 BUN/Creatinine Ratio 7 Glucose Level 111 H 70-105 MG/DL Calcium Level 8.9 8.5-10.1 MG/DL Troponin I < 0.028 <0.028 NG/ML B-Type Natriuretic Peptide 491.7 H <100.0 PG/ML Urine Opiates Screen NEGATIVE NEGATIVE Urine Oxycodone Screen NEGATIVE NEGATIVE Urine Methadone Screen NEGATIVE NEGATIVE Urine Propoxyphene Screen NEGATIVE NEGATIVE Urine Barbiturates Screen NEGATIVE NEGATIVE Ur Tricyclic Antidepressants Screen POSITIVE H NEGATIVE Urine Phencyclidine Screen NEGATIVE NEGATIVE Urine Amphetamines Screen NEGATIVE NEGATIVE Urine Methamphetamines Screen NEGATIVE NEGATIVE Urine Benzodiazepines Screen NEGATIVE NEGATIVE Urine Cocaine Screen NEGATIVE NEGATIVE Urine Cannabinoids Screen NEGATIVE NEGATIVE Blood Gas Puncture Site R RAD Blood Gas Patient Temperature 36.9 Arterial Blood pH 7.39 7.37-7.43 Arterial Blood Partial Pressure CO2 41 35-45 MMHG Arterial Blood Partial Pressure O2 53 L 79-93 MMHG Arterial Blood HCO3 24 23-27 MMOL/L Arterial Blood Total CO2 25.1 21.0-31.0 MMOL/L Arterial Blood Oxygen Saturation 87 L 94-100 % Arterial Blood Base Excess -0.5 -2.5-2.5 MMOL/L Alfonso Test YES-POS Blood Gas Ventilator Setting NO Blood Gas Inspired Oxygen 4 (FEDE AMARO MD) My Orders Orders - FEDE AMARO MD Chest 1 View, Ap/Pa Only (05/09/23 07:35) Fentanyl Inj (Sublimaze Injection) (05/09/23 07:42) Orphenadrine Inj (Ed Only) (Norflex Inje (05/09/23 07:42) Arterial Blood Gas (05/09/23 07:42) Furosemide Injection (Lasix Injection) (05/09/23 08:18) (FEDE AMARO MD) Medications Given in ED Current Medications Medications Dose Ordered Sig/Mikal Route Start Time Stop Time Status Last Admin Dose Admin Acetaminophen 1,000 mg ONCE ONCE PO 05/09/23 05:30 05/09/23 05:31 DC 05/09/23 06:00 1,000 MG (FEDE AMARO MD) Vital Signs/I&O 05/09/23 05:02 Pulse 92 Resp 20 B/P (MAP) 154/124 (134) Pulse Ox 91 O2 Delivery Room Air (FEDE AMARO MD) Blood Pressure Mean: 134 Progress Progress Note : Progress Note 0600: Assumed care of the patient from Dr. Cruz pending labs. Patient has work-up including CBC, CMP, BNP and troponin ordered. EKG ordered and reviewed by me as below. Patient resting peacefully. There was some concern about lower oxygen level upon arrival. She is currently on oxygen. Monitor patient. Differential diagnosis includes heart failure, cardiac event, electrolyte abnormality 0736: Patient does have slightly elevated BNP at greater than 400. Troponin is negative. CBC reviewed and is nonconcerning. CMP reviewed and nonconcerning. I did trial her off oxygen and O2 saturation dropped to 86%. Restarted O2 at 3 L via nasal cannula. She is complaining of restless leg. I have added chest x- ray as well as ABG and we will give Norflex 60 mg IV as well as fentanyl 25 mg IV. Monitor patient. 0824: Chest x-ray shows obvious bilateral pulmonary edema on my interpretation. I did discuss the case with Dr. Patterson, patient's primary senior accounting specialist and cardiology on-call. We will initiate furosemide 40 mg IV and admit. He will see the patient in consult and request cardiac stepdown. 0828: I did discuss the case with Dr. Garcia and she accepts patient for admission, inpatient status as hospitalist. Discussed with patient who agrees with plan. (FEDE AMARO MD) Initial ECG Impression Date: May 09, 2023 Initial ECG Impression Time: 05:10 Initial ECG Rate: 89 Initial ECG Rhythm: Normal Sinus Initial ECG Intervals NE interval 201 QRS 100 QTc 452 Comment LVH, nonspecific ST-T wave changes throughout, no ectopy (RICH CRUZ MD) Diagnostic Imaging Diagonstic Imaging: Xray Plain Films/CT/US/NM/MRI: chest Comments [facility] [place], [place] NAME: SAL [facility] REC#: [id number] PT STATUS: REG ER : 1990 PHYSICIAN: FEDE AMARO MD ADMIT DATE: 05/09/23/ER Draft Date of Exam:05/09/23 CHEST 1 VIEW, AP/PA ONLY INDICATION: Chest pain. COMPARISON with study 05/08. FINDINGS: 5 lobed extensive pulmonary opacities have developed. Given the rapidity of development, suspect for florid edema. Heart size stable. Vascularity showed no gross over dilatation but centrally obscured by the pulmonary opacities. Pacemaker device stable. No effusion or pneumothorax. IMPRESSION: New 5 lobed pulmonary opacities extensive and suspicious for acute pulmonary edema, florid pneumonia less likely given the rapidity of development. No pleural pathology and no gross venous congestion with stable heart size. Dictated on workstation # [id number] Dict: 05/09/23 0800 Trans: 05/09/23 0815 [facility] [id number] Interpreted by: RENÉE GALLEGOS Electronically signed by: Reviewed: Reviewed by Me (FEDE AMARO MD) Departure Communication (Admissions) Time/Spoke to Admitting Phy: 08:28 Time/Spoke to Consulting Phy: 08:24 (FEDE AMARO MD) Impression Primary Impression: Acute on chronic congestive heart failure Qualified Codes: I50.9 - Heart failure, unspecified Additional Impressions: Chest pain Qualified Codes: R07.9 - Chest pain, unspecified Hypoxia Disposition: ADMITTED INPATIENT Condition: Stable Admissions Decision to Admit Reason: Admit from ER (General) Decision to Admit/Date: May 09, 2023 Time/Decision to Admit Time: 08:24 (FEDE AMARO MD) Departure-Patient Inst. Referrals: BROWN NGUYEN DOCUMENT CONTROL SUPERVISOR (PCP/Family) Primary Care Physician RICH CRUZ MD May 09, 2023 05:16 FEDE AMARO MD May 09, 2023 08:33
[2023-05-09] MEDS ORDERED: ACETAMINOPHEN 500 MG TAB (TYLENOL) PO ONE (05:30)
[2023-05-09 05:37] LABS: BASOPHILS # (AUTO) 0.1 10^3/uL (0.0-0.1); BASOPHILS % (AUTO) 1 % (0-10); EOSINOPHILS # (AUTO) 0.2 10^3/uL (0.0-0.3); EOSINOPHILS % (AUTO) 2 % (0-10); HEMATOCRIT 42 % (35-52); HEMOGLOBIN 13.9 g/dL (11.5-16.0); LYMPHOCYTES # (AUTO) 4.2 10^3/uL (1.0-4.0); LYMPHOCYTES % (AUTO) 47 % (12-44); MEAN CORPUSCULAR HEMOGLOBIN 29 pg (25-34); MEAN CORPUSCULAR HGB CONC 33 g/dL (32-36); MEAN CORPUSCULAR VOLUME 87 fL (80-99); MEAN PLATELET VOLUME 9.4 fL (9.0-12.2); MONOCYTES # (AUTO) 0.5 10^3/uL (0.0-1.0); MONOCYTES % (AUTO) 6 % (0-12); NEUTROPHILS # (AUTO) 3.9 10^3/uL (1.8-7.8); NEUTROPHILS % (AUTO) 44 % (42-75); PLATELET COUNT 377 10^3/uL (130-400)
[2023-05-09 05:44] LABS: CHLORIDE 108 MMOL/L (98-107); POTASSIUM 3.9 MMOL/L (3.6-5.0); SODIUM 141 MMOL/L (135-145)
[2023-05-09 05:45] LABS: CALCIUM 8.9 MG/DL (8.5-10.1)
[2023-05-09 05:46] LABS: GLUCOSE 111 MG/DL (70-105)
[2023-05-09 05:47] LABS: CARBON DIOXIDE 23 MMOL/L (21-32)
[2023-05-09 05:50] LABS: BUN/CREATININE RATIO 7; CREATININE SERUM 2.64 MG/DL (0.60-1.30); GFR ESTIMATED 24
[2023-05-09 06:04] LABS: AMPHETAMINE SCREEN, URINE NEGATIVE (NEGATIVE); BARBITURATE SCREEN URINE NEGATIVE (NEGATIVE); BENZODIAZEPINES SCREEN URINE NEGATIVE (NEGATIVE); CANNABINOID SCREEN, URINE NEGATIVE (NEGATIVE); COCAINE SCREEN URINE NEGATIVE (NEGATIVE); METHADONE STAT NEGATIVE (NEGATIVE); OPIATE SCREEN URINE NEGATIVE (NEGATIVE); OXYCODONE STAT NEGATIVE (NEGATIVE); PROPOXYPHENE STAT NEGATIVE (NEGATIVE); TRICYCLIC ANTIDEPRESSANTS SCRE POSITIVE (NEGATIVE)
[2023-05-09] MEDS ORDERED: fentaNYL INJ 100 MCG/2 ML AMP IVP STA (07:42)
[2023-05-09] MEDS ORDERED: ORPHENADRINE 60 MG/2 ML (NORFLEX) AMP (ED ONLY) IV STA (07:42)
[2023-05-09 08:07] LABS: ABG BASE EXCESS -0.5 MMOL/L (-2.5-2.5); ABG OXYGEN SATURATION 87 % (94-100); ABG PCO2 41 MMHG (35-45); ABG PH 7.39 (7.37-7.43); ABG PO2 53 MMHG (79-93); ABG TCO2 25.1 MMOL/L (21.0-31.0)
[2023-05-09 08:08] LABS: ALLENS TEST YES-POS; INSPIRED O2 4; PATIENT TEMP 36.9; VENTILATOR NO
--- NOTE | 2023-05-09 08:15 | Diagnostic Imaging Report ---
INDICATION: Chest pain. COMPARISON with study 05/08. FINDINGS: 5 lobed extensive pulmonary opacities have developed. Given the rapidity of development, suspect for florid edema. Heart size stable. Vascularity showed no gross over dilatation but centrally obscured by the pulmonary opacities. Pacemaker device stable. No effusion or pneumothorax. IMPRESSION: New 5 lobed pulmonary opacities extensive and suspicious for acute pulmonary edema, florid pneumonia less likely given the rapidity of development. No pleural pathology and no gross venous congestion with stable heart size. Dictated by: Dictated on workstation # [id number]
[2023-05-09] MEDS ORDERED: FUROSEMIDE 40 MG/4 ML INJ (LASIX) IV STA (08:18)
--- NOTE | 2023-05-09 09:11 | History & Physical-Hospitalist ---
History of Present Illness HPI/Chief Complaint CC: AECHF HPI: This is a 32yoWWF with h/o SHEREEN and head injury and cardiomyopathy with pacemaker who presented to the ER with dyspnea. CHF exacerbation treatment initiated. Currently she had no complaints but poor historian. Source: patient, RN/MD, old records Exam Limitations: no limitations Date Seen 05/09/23 Time Seen by a Provider: 10:00 Attending Physician Itzel Fonseca Aprn PCP Admitting Physician: Attending Physician: Referring Physician Date of Admission Home Medications & Allergies Home Medications Reviewed patient Home Medication Reconciliation performed by pharmacy medication reconciliations parking enforcement technician and/or nursing. Patients Allergies have been reviewed. Allergies Allergies Coded Allergies JIA Inhibitors (Verified Allergy, Severe, 05/22/19) ARB-Angiotensin Receptor Antagonist (Verified Allergy, Severe, 05/22/19) amoxicillin (Verified Allergy, Unknown, 05/28/21) baclofen (Unverified Allergy, Unknown, 05/22/19) ON H&P clavulanic acid (Verified Allergy, Unknown, 05/28/21) phenazopyridine (Unverified Allergy, Unknown, 05/22/19) ON H&P Past Ydaywan-Nmrtij-Cpobxw Hx Patient Social History Marrital Status: single Employed/Student: unemployed Tobacco Use?: No Smoking Status: Unknown if Ever Smoked Immunizations Up To Date Date of Influenza Vaccine: Sep 08, 2022 First/Initial COVID19 Vaccinat: X3 Second COVID19 Vaccination Adair: Pfizer Tetanus Booster (TDap): Unknown Hepatitis A: No Hepatitis B: No PED Vaccines UTD: Yes Date of Pneumonia Vaccine: Sep 09, 2018 Seasonal Allergies Seasonal Allergies: No Current Status Communicates: Verbally Primary Language: Vietnamese Past Medical History Surgeries: Abdominal, Section, Defibrillator, Gallbladder, Hysterectomy, Pacemaker Pneumonia, Chronic Bronchitis Currently Using CPAP: No Currently Using BIPAP: No Cardiomyopathy, Endocarditis, Hypertension, Valvular Heart Disease Sexually Transmitted Disease: No Renal Failure Gastroesophageal Reflux Loss of Vision: Denies Hearing Impairment: Denies Anxiety, Bipolar, Depression Blood Disorders: Yes (ANEMIA) Family Medical History Patient reports no known family medical history. 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 SHE HAS HAD A DEFIBRILLATOR IN PLACE SINCE AGE 24. Review of Systems Constitutional: see HPI Respiratory: dyspnea on exertion Physical Exam Physical Exam Vital Signs Vital Signs - First Documented 05/09/23 05:02 Pulse 92 Resp 20 B/P (MAP) 154/124 (134) Pulse Ox 91 O2 Delivery Room Air Capillary Refill : Less Than 3 Seconds Height, Weight, BMI Height: 5'3.00" Weight: 234lbs. 0oz. 106.255730ze; 40.00 BMI Method:Stated General Appearance: No Apparent Distress, Chronically ill Eyes: Right Eye Normal Inspection, Right Eye PERRL HEENT: PERRL/EOMI, Normal ENT Inspection, Pharynx Normal, Moist Mucous Membranes Neck: Full Range of Motion, Normal Inspection, Non Tender Respiratory: Chest Non Tender, Lungs Clear, Normal Breath Sounds, No Accessory Muscle Use, No Respiratory Distress Cardiovascular: Regular Rate, Rhythm, No Edema, No Gallop, No JVD, No Murmur, Normal Peripheral Pulses Gastrointestinal: Normal Bowel Sounds, No Organomegaly, No Pulsatile Mass, Non Tender, Soft Back: Normal Inspection, No CVA Tenderness, No Vertebral Tenderness Extremity: Normal Capillary Refill, Normal Inspection, Normal Range of Motion, Non Tender, No Calf Tenderness, No Pedal Edema Neurologic/Psychiatric: Alert, Oriented x3, No Motor/Sensory Deficits, Normal Mood/Affect Skin: Normal Color, Warm/Dry Lymphatic: No Adenopathy Results Results/Procedures Labs Laboratory Tests 05/09/23 05:10 Patient resulted labs reviewed. Assessment/Plan Admission Diagnosis Assessment: AECHF Cardiomyopathy HTN CKD SHEREEN hx Pacemaker Head injury hx Plan: ZAKI Patterson consult Admission Status: Observation Clinical Quality Measures AMI/AHF: ASA po Prior to arrival: MEGGAN Edwards DO May 09, 2023 09:11
[2023-05-09] MEDS ORDERED: diphenhydrAMINE 50 MG/ML INJ (BENADRYL) IVP PRN (09:45)
[2023-05-09] MEDS ORDERED: ANTACID SUSP 30 ML UDC (MYLANTA) PO PRN (09:45)
[2023-05-09] MEDS ORDERED: MILK OF MAGNESIA 400 MG/5 ML 30 ML UDC PO PRN (09:45)
[2023-05-09] MEDS ORDERED: HYDROmorphone 2 MG/ML VIAL (DILAUDID) IV PRN (09:45)
[2023-05-09] MEDS ORDERED: polyethylene glycoL POWDER 17 GM (MIRALAX) PACK PO PRN (09:45)
[2023-05-09] MEDS ORDERED: ACETAMINOPHEN 325 MG TABLET PO PRN (09:45)
[2023-05-09] MEDS ORDERED: ONDANSETRON 4 MG/2 ML (SDV) Z0FRAN IV PRN (09:45)
[2023-05-09] MEDS ORDERED: LACTULOSE SYRUP 10GM/15ML (ENULOSE) 30ML UDC PO PRN (09:45)
[2023-05-09] MEDS ORDERED: BISACODYL 10 MG SUPP (DULCOLAX) PR PRN (09:45)
[2023-05-09] MEDS ORDERED: ONDANSETRON 4 MG (ZOFRAN) ORAL DISSOLVE TAB PO PRN (09:45)
[2023-05-09] MEDS ORDERED: CALCIUM CARBONATE 500 MG (TUMS) TAB.CHEW PO PRN (09:45)
[2023-05-09] MEDS ORDERED: RT-ALBUTEROL/IPRATROPIUM 3 ML (DUONEB) VIAL INH PRN (11:00)
--- NOTE | 2023-05-09 11:00 | Consultation-Cardiology ---
HPI-Cardiology Cardiology Consultation Date of Consultation 05/09/23 Date of Admission Time Seen by Provider: 10:00 Indication: AE CHF HPI Patient is a 32 y/o female with hx of nonischemic cardiomyopathy, HTN, History of cardiac arrest. Presented to the ER with complaints of increased dyspnea and chest pressure the the last one to 2 days. C/o orthopnea. She is currently on oxymask, complaining of dyspnea. Denies any further episode of chest pain. W/u done in ER showed elevated BNP and CXR showing acute pulmonary edema. Home Medications & Allergies Allergies: Coded Allergies: JIA Inhibitors (Verified Allergy, Severe, 05/22/19) ARB-Angiotensin Receptor Antagonist (Verified Allergy, Severe, 05/22/19) amoxicillin (Verified Allergy, Unknown, 05/28/21) baclofen (Unverified Allergy, Unknown, 05/22/19) ON H&P clavulanic acid (Verified Allergy, Unknown, 05/28/21) phenazopyridine (Unverified Allergy, Unknown, 05/22/19) ON H&P Home Medication List Reviewed: Yes [id number] Hx Patient Social History Marital Status: single Employed/Student: unemployed Drug of Choice: denies Former smoker/When Quit: Jan 23, 2015 Type Used: Cigarettes 2nd Hand Smoke Exposure: No Recent Hopitalizations: No Immunizations Up To Date Tetanus Booster (TDap): Unknown Date of Pneumonia Vaccine: Sep 09, 2018 Date of Influenza Vaccine: Sep 08, 2022 Family Medical History Significant Family History: No Pertinent Family Hx Family History: Patient reports no known family medical history. Review of Systems-General Review of Systems Constitutional: see HPI, malaise EENTM: see HPI, no symptoms reported Respiratory: see HPI; No cough; dyspnea on exertion, orthopnea, short of breath Cardiovascular: see HPI, chest pain, edema; No Hx of Intervention, No palpitations, No syncope, No vascular heart diseas Gastrointestinal: No abdominal pain, No constipation Musculoskeletal: no symptoms reported All Other Systems Reviewed Negative Unless Noted: Yes Reviewed Test Results Reviewed Test Results Lab Laboratory Tests 05/09/23 05:10: White Blood Count 9.0, Red Blood Count 4.80, Hemoglobin 13.9, Hematocrit 42, Mean Corpuscular Volume 87, Mean Corpuscular Hemoglobin 29, Mean Corpuscular Hemoglobin Concent 33, Red Cell Distribution Width 15.5H, Platelet Count 377, Mean Platelet Volume 9.4, Immature Granulocyte % (Auto) 0, Neutrophils (%) (Auto) 44, Lymphocytes (%) (Auto) 47H, Monocytes (%) (Auto) 6, Eosinophils (%) (Auto) 2, Basophils (%) (Auto) 1, Neutrophils # (Auto) 3.9, Lymphocytes # (Auto) 4.2H, Monocytes # (Auto) 0.5, Eosinophils # (Auto) 0.2, Basophils # (Auto) 0.1, Immature Granulocyte # (Auto) 0.0, Sodium Level 141, Potassium Level 3.9, Chloride Level 108H, Carbon Dioxide Level 23, Anion Gap 10, Blood Urea Nitrogen 19H, Creatinine 2.64H, Estimat Glomerular Filtration Rate 24, BUN/Creatinine Ratio 7, Glucose Level 111H, Calcium Level 8.9, Troponin I < 0.028, B-Type Natriuretic Peptide 491.7H 05/09/23 05:25: Urine Opiates Screen NEGATIVE, Urine Oxycodone Screen NEGATIVE, Urine Methadone Screen NEGATIVE, Urine Propoxyphene Screen NEGATIVE, Urine Barbiturates Screen NEGATIVE, Ur Tricyclic Antidepressants Screen POSITIVEH, Urine Phencyclidine Screen NEGATIVE, Urine Amphetamines Screen NEGATIVE, Urine Methamphetamines Screen NEGATIVE, Urine Benzodiazepines Screen NEGATIVE, Urine Cocaine Screen NEGATIVE, Urine Cannabinoids Screen NEGATIVE 05/09/23 07:50: Blood Gas Puncture Site R RAD, Blood Gas Patient Temperature 36.9, Arterial Blood pH 7.39, Arterial Blood Partial Pressure CO2 41, Arterial Blood Partial Pressure O2 53L, Arterial Blood HCO3 24, Arterial Blood Total CO2 25.1, Arterial Blood Oxygen Saturation 87L, Arterial Blood Base Excess -0.5, Alfonso Test YES- POS, Blood Gas Ventilator Setting NO, Blood Gas Inspired Oxygen 4 Physical Exam Physical Exam Vital Signs Vital Signs - First Documented 05/09/23 05:02 Pulse 92 Resp 20 B/P (MAP) 154/124 (134) Pulse Ox 91 O2 Delivery Room Air Capillary Refill : Less Than 3 Seconds Height, Weight, BMI Height: 5'3.00" Weight: 234lbs. 0oz. 106.497008jt; 40.00 BMI Method:Stated General Appearance: No Apparent Distress, WD/WN, Anxious, Obese HEENT: PERRL/EOMI Neck: Normal Inspection Respiratory: No Accessory Muscle Use, No Respiratory Distress, Rhonci, Other (tenderness to palpation over the mid sternum) Cardiovascular: Regular Rate, Rhythm (HR=90 bpm), Normal Peripheral Pulses Gastrointestinal: Non Tender, Soft Extremity: Normal Inspection, Normal Range of Motion, Non Tender, No Calf Tenderness, No Pedal Edema Neurologic/Psychiatric: Alert, Oriented x3, No Motor/Sensory Deficits, Other (patient has slurred speech, difficult to understand (per review of medical records and nursing staff - this is her usual); she is occasionally having intermittent "twitching" type movements.) Skin: Normal Color, Warm/Dry A/P-Cardiology Admission Diagnosis AE CHF HTN Bradycardia Assessment/Plan Acute on chronic, Nonischemic congestive heart failure, left ventricular systolic dysfunction. Most recent 2D Echo done February 2023 showing mild concentric hypertrophy, EF 40-45%. Grade 1 diastolic dysfunction. PA 40-45mmHg. CXR done on this admission showing pulmonary edema. Continue to diurese and continue to monitor closely. History of Bradycardia, status post ICD implantation and repositioning done on August 24, 2015. Patient underwent another ICD revision with new pace/sense lead replacement, pocket revision, done by Dr. Castanon on May 10, 2019. Had another repositioning of the lead then had replacement of the lead. Currently there is questionable lead malfunctioning again, ICD interrogation was done on December 01, 2022 with good sensing and capture activity. Battery longevity 17 months, SVC lead appeared to be dislodged. Following with Dr Devries. Hypertension, difficult to control, on multiple medication. Restart home medication and continue to monitor. History of mid left atrial thrombus on 2-D echo report by history-I will try to obtain records from [facility] [place]. She is maintained on [facility] History of tricuspid valve vegetation per 2-D echocardiogram in January 2015, Echocardiogram was done in March 2020 showing ejection fraction 30-35 percent, moderate MR, mild AR, [id number] TR, PA 30 mmHg. Anoxic encephalopathy Status post cardiopulmonary arrest History of illicit drug use, denies any recent drug use. Thank you for allowing us to participate in the managment of Ms. Lr. This is Viri Mason PA-C, as a scribe for Dr. Patterson. Patient was seen and evaluated, I interviewed and examined the patient, discussed the management plan and agree with the scribed note CHF, acute on chronic, continue with diuretics, monitor renal function Monitor HR and blood pressure, resume home meds Clinical Quality Measures AMI/AHF: ASA po Prior to arrival: No VIRI MULTANI May 09, 2023 11:00 FELECIA PATTERSON MD May 09, 2023 21:36
[2023-05-09] MEDS: RT-ALBUTEROL/IPRATROPIUM 3 ML (DUONEB) VIAL INH SCH ×2 (15:06→20:11)
[2023-05-09] MEDS: FUROSEMIDE 40 MG/4 ML INJ (LASIX) IV SCH (17:42)
[2023-05-09] MEDS: MELATONIN 3 MG TABLET PO PRN (20:01)
[2023-05-09] MEDS: APIXABAN 5 MG (ELIQUIS) TABLET PO SCH (20:01)
[2023-05-09] MEDS: SENNOSIDES 8.6 MG (SENOKOT) TAB PO SCH (20:02)
[2023-05-09] MEDS: DOCUSATE SODIUM 100 MG (COLACE) CAP PO SCH (20:02)
[2023-05-09] MEDS: meTOprolol TARTRATE 50 MG (LOPRESSOR) TAB PO SCH (23:42)
[2023-05-10] VITALS (9 sets, daily range): BP systolic 118–171; BP diastolic 80–126
[2023-05-10] MEDS: diphenhydrAMINE 25 MG TAB (BENADRYL) PO PRN ×3 (01:25→22:21)
[2023-05-10] MEDS: RT-ALBUTEROL/IPRATROPIUM 3 ML (DUONEB) VIAL INH SCH ×3 (03:05→20:05)
[2023-05-10 04:55] LABS: BASOPHILS # (AUTO) 0.1 10^3/uL (0.0-0.1); BASOPHILS % (AUTO) 1 % (0-10); EOSINOPHILS # (AUTO) 0.1 10^3/uL (0.0-0.3); EOSINOPHILS % (AUTO) 2 % (0-10); HEMATOCRIT 42 % (35-52); HEMOGLOBIN 13.5 g/dL (11.5-16.0); LYMPHOCYTES # (AUTO) 3.7 10^3/uL (1.0-4.0); LYMPHOCYTES % (AUTO) 45 % (12-44); MEAN CORPUSCULAR HEMOGLOBIN 29 pg (25-34); MEAN CORPUSCULAR HGB CONC 33 g/dL (32-36); MEAN CORPUSCULAR VOLUME 88 fL (80-99); MEAN PLATELET VOLUME 9.5 fL (9.0-12.2); MONOCYTES # (AUTO) 0.5 10^3/uL (0.0-1.0); MONOCYTES % (AUTO) 6 % (0-12); NEUTROPHILS # (AUTO) 3.8 10^3/uL (1.8-7.8); NEUTROPHILS % (AUTO) 46 % (42-75); PLATELET COUNT 370 10^3/uL (130-400); WHITE BLOOD COUNT 8.2 10^3/uL (4.3-11.0)
[2023-05-10 05:26] LABS: ALBUMIN 3.2 GM/DL (3.2-4.5); BILIRUBIN,TOTAL 0.3 MG/DL (0.1-1.0); CALCIUM 8.8 MG/DL (8.5-10.1); CREATININE SERUM 2.47 MG/DL (0.60-1.30); POTASSIUM 3.4 MMOL/L (3.6-5.0); TOTAL PROTEIN 5.9 GM/DL (6.4-8.2)
--- NOTE | 2023-05-10 06:07 | Progress Note - Hospitalist ---
Subjective HPI/CC On Admission Date Seen by Provider: May 10, 2023 Time Seen by Provider: 11:00 CC: AECHF HPI: This is a 32yoWWF with h/o SHEREEN and head injury and cardiomyopathy with pacemaker who presented to the ER with dyspnea. CHF exacerbation treatment initiated. Currently she had no complaints but poor historian. Subjective/Events-last exam Patient doing a lot better Diuresis has been successful Continues on IV Lasix Creatinine stable Review of Systems General: Fatigue, Malaise Objective Exam Vital Signs Vital Signs Date Time Temp Pulse Resp B/P (MAP) Pulse Ox O2 Delivery O2 Flow Rate FiO2 05/10/23 19:40 36.9 92 19 137/93 (108) 94 Room Air 05/10/23 11:23 2.00 Capillary Refill : Less Than 3 Seconds General Appearance: No Apparent Distress, WD/WN, Chronically ill Respiratory: Lungs Clear, Normal Breath Sounds Cardiovascular: Regular Rate, Rhythm Neurologic/Psychiatric: Alert, Oriented x3 Results/Procedures Lab Laboratory Tests 05/10/23 04:00 Patient resulted labs reviewed. Assessment/Plan Assessment and Plan Assess & Plan/Chief Complaint Assessment: AECHF Cardiomyopathy HTN CKD SHEREEN hx Pacemaker Head injury hx Plan: IV Lasix Dr Patterson consult Clinical Quality Measures AMI/AHF: ASA po Prior to arrival: MEGGAN Edwards DO May 10, 2023 06:07
[2023-05-10] MEDS: FUROSEMIDE 40 MG/4 ML INJ (LASIX) IV SCH ×2 (06:50→16:00)
--- NOTE | 2023-05-10 09:09 | Cardiology Progress Note ---
Subjective Date Seen by Provider: May 10, 2023 Time Seen by Provider: 09:09 Subjective/Events-last exam Patient was seen at bedside, sitting comfortably, feeling better. Objective-Cardiology Exam Last Set of Vital Signs Vital Signs 05/10/23 08:04 Temp 36.2 Pulse 88 Resp 18 B/P (MAP) 157/120 (132) Pulse Ox 97 O2 Delivery Nasal Cannula O2 Flow Rate 2.00 I&O Intake and Output 05/10/23 00:00 Intake Total 600 ml Output Total 1800 ml Balance -1200 ml Intake Oral 600 ml Output Urine Total 1800 ml Daily Weight Change No No General: Alert, Oriented X3, Cooperative HEENT: Atraumatic, PERRLA Neck: Supple, No JVD, No Thyromegaly Lungs: Clear to Auscultation, Normal Air Movement Heart: Regular Rate, Normal S1, Normal S2, No Murmurs Abdomen: Normal Bowel Sounds, Soft, No Tenderness, No Hepatosplenomegaly, No Masses Extremities: No Clubbing, No Cyanosis, No Edema, Normal Pulses, No Tenderness/Swelling Skin: No Rashes, No Breakdown, No Significant Lesion Neuro: Normal Gait, Normal Speech, Strength at 5/5 X4 Ext, Normal Tone, Sensation Intact Psych/Mental Status: Mental Status NL, Mood NL Results Lab Laboratory Tests 05/10/23 04:00 A/P-Cardiology Admission Diagnosis AE CHF HTN Bradycardia Assessment/Plan Acute on chronic, Nonischemic congestive heart failure, left ventricular systolic dysfunction. Most recent 2D Echo done February 2023 showing mild concentric hypertrophy, EF 40-45%. Grade 1 diastolic dysfunction. PA 40-45mmHg. CXR done on this admission showing pulmonary edema. Continue to diurese and continue to monitor closely. History of Bradycardia, status post ICD implantation and repositioning done on August 24, 2015. Patient underwent another ICD revision with new pace/sense lead replacement, pocket revision, done by Dr. Castanon on May 10, 2019. Had another repositioning of the lead then had replacement of the lead. Currently there is questionable lead malfunctioning again, ICD interrogation was done on December 01, 2022 with good sensing and capture activity. Battery longevity 17 months, SVC lead appeared to be dislodged. Following with Dr Devries. Hypertension, difficult to control, on multiple medication. Restart home medication and continue to monitor. History of mid left atrial thrombus on 2-D echo report by history-I will try to obtain records from [facility]. She is maintained on Eliquis History of tricuspid valve vegetation per 2-D echocardiogram in January 2015, Echocardiogram was done in March 2020 showing ejection fraction 30-35 percent, moderate MR, mild AR, [id number] TR, PA 30 mmHg. Anoxic encephalopathy Status post cardiopulmonary arrest History of illicit drug use, denies any recent drug use. FELECIA FORTUNE MD May 10, 2023 09:09
[2023-05-10] MEDS: meTOprolol TARTRATE 50 MG (LOPRESSOR) TAB PO SCH ×2 (10:23→19:51)
[2023-05-10] MEDS: amLODIPine 10 MG (NORVASC) TAB PO SCH (10:24)
[2023-05-10] MEDS: APIXABAN 5 MG (ELIQUIS) TABLET PO SCH ×2 (10:24→19:52)
[2023-05-10] MEDS: SACUBITRIL/VALSARTAN 24/26 MG (ENTRESTO) TABLET PO SCH ×3 (10:24→19:51)
[2023-05-10] MEDS: SENNOSIDES 8.6 MG (SENOKOT) TAB PO SCH ×2 (10:28→19:51)
[2023-05-10] MEDS: DOCUSATE SODIUM 100 MG (COLACE) CAP PO SCH ×2 (10:28→19:51)
[2023-05-10] MEDS: POTASSIUM CL 10MEQ/50ML IVPB 50 ML IV SCH ×2 (11:18→13:38)
--- NOTE | 2023-05-10 14:03 | Physical Therapy Evaluation ---
PT Evaluation-General Medical Diagnosis Admission Date May 09, 2023 at 09:13 Medical Diagnosis: SHEREEN, head injury, pacemaker, dyspnea, CHF exacerbation Onset Date: May 09, 2023 Therapy Diagnosis Therapy Diagnosis: Gait deficit, balance disorder Height/Weight Height (Feet): 5 Height (Inches): 3.00 Weight (Pounds): 234 Weight (Ounces): 0 Precautions Precautions/Isolations: Fall Prevention, Standard Precautions Weight Bear Status Right Lower Extremity: Right Full Weight Bearing Left Lower Extremity: Left Full Weight Bearing Referral Physician: Dr. Gray Reason for Referral: Evaluation/Treatment Medical History Pertinent Medical History: GERD, HTN, Renal Insufficiency Reviewed History: Yes Social History Home: Single Level Current Living Status: Children Entry Into Home: Stairs With Railing PT Steps Into Home: 5 Prior Prior Level of Function SCALE: Activities may be completed with or without assistive devices. 7-Beplecmvja-glntmri completes the activity by him/herself with no assistance from a helper. 5-Set-up or Clean-up Assistance-helper sets up or cleans up; patient completes activity. [place] assists only prior to or following the activity. 4-Supervision or Touching Assistance-helper provides verbal cues and/or touching/steadying and/or contact guard assistance as patient completes activity. Assistance may be provided throughout the activity or intermittently. 3-Partial/Moderate Assistance-helper does LESS THAN HALF the effort. [place] lifts, holds or supports trunk or limbs, but provides less than half the effort. 2-Substantial/Maximal Assistance-helper does MORE THAN HALF the effort. [place] lifts or holds trunk or limbs and provides more than half the effort. 0-Wvjvhhqvy-dnvalg does ALL the effort. Patient does none of the effort to complete the activity. Or, the assistance of 2 or more helpers is required for the patient to complete the activity. If activity was not attempted, code reason: 7-Patient Refused. 9-Not Applicable-not attempted and the patient did not perform the activity before the current illness, exacerbation or injury. 10-Not Attempted due to Environmental Limitations-(lack of equipment, weather restraints, etc.). 88-Not Attempted due to Medical Conditions or Safety Concerns. Bed Mobility: 6 Transfers (B,C,W/C): 6 Gait: 6 Stairs: 6 Indoor Mobility (Ambulation): Independent Stairs: Independent Has FWW and cane at home but does not use them PT Evaluation-Current Subjective Patient walking around room upon PT arrival, agreeable to treatment, patient rates pain at 5/10 in head. Objective Patient Orientation: Person, Place, Time, Situation ROM/Strength ROM Lower Extremities WFLs all planes BLEs Strength Lower Extremities 4/5 BLEs all planes Sensory Vision: Functional Hearing: Functional Sensation Right Lower Extremit: Intact Sensation Left Lower Extremity: Intact Transfers Roll Left to Right (QC): 6 Sit to Lying (QC): 6 Lying to Sitting/Side of Bed(Q: 6 Sit to Stand (QC): 6 Chair/Qnl-dz-Yvcvz Xfer(QC): 6 Toilet Transfer (QC): 4 Gait Does the Patient Walk?: Yes Mode of Locomotion: Walk Anticipated Mode of Locomotion: Walk Walk 10 feet (QC): 4 Walk 50 ft with 2 Turns(QC): 4 Walk 150 ft (QC): 4 Distance: 220' Gait Assistive Device: None Balance Sitting Static: Normal Sitting Dynamic: Normal Standing Static: Fair Standing Dynamic: Fair Assessment/Needs Patient independent with all Mobility and SBA for transfers. Patient at baseline currently, no further therapy at this time. Patient would benefit from Outpatient Physical Therapy and Speech Therapy post discharge. Rehab Potential: Fair PT Plan Treatment/Plan Treatment Plan: Discontinue PT Treatment Duration: May 10, 2023 Frequency: Safety Risks/Education Patient Education: Gait Training, Transfer Techniques Teaching Recipient: Patient Teaching Methods: Demonstration, Discussion Response to Teaching: Verbalize Understanding, Return Demonstration Time Time In: 1343 Time Out: 1359 DATE: May 10, 2023 Total Billed Treatment Time: 16 Total Billed Treatment Visit, BRYANT PITTMAN PT May 10, 2023 14:03
[2023-05-10] MEDS ORDERED: POTA10TA PO (16:44)
[2023-05-10] MEDS ORDERED: METO100T12 PO (16:44)
[2023-05-10] MEDS ORDERED: ESCI20TA39 PO (16:44)
[2023-05-10] MEDS ORDERED: CLON1PAT34 TD (16:44)
[2023-05-10] MEDS ORDERED: APIX5TAB PO (16:44)
[2023-05-10] MEDS ORDERED: FURO40TA4 PO (16:44)
[2023-05-10] MEDS ORDERED: ASPI-1238 PO (16:46)
[2023-05-10] MEDS ORDERED: MULT-1018 PO (16:47)
[2023-05-10] MEDS: MELATONIN 3 MG TABLET PO PRN (19:51)
[2023-05-11] MEDS: RT-ALBUTEROL/IPRATROPIUM 3 ML (DUONEB) VIAL INH SCH ×2 (02:58→07:08)
[2023-05-11 04:02] VITALS: BP 133/85
[2023-05-11 05:47] LABS: BASOPHILS # (AUTO) 0.1 10^3/uL (0.0-0.1); BASOPHILS % (AUTO) 1 % (0-10); EOSINOPHILS # (AUTO) 0.2 10^3/uL (0.0-0.3); EOSINOPHILS % (AUTO) 3 % (0-10); HEMATOCRIT 43 % (35-52); HEMOGLOBIN 13.9 g/dL (11.5-16.0); LYMPHOCYTES # (AUTO) 3.2 10^3/uL (1.0-4.0); LYMPHOCYTES % (AUTO) 45 % (12-44); MEAN CORPUSCULAR HEMOGLOBIN 29 pg (25-34); MEAN CORPUSCULAR HGB CONC 33 g/dL (32-36); MEAN CORPUSCULAR VOLUME 88 fL (80-99); MEAN PLATELET VOLUME 8.9 fL (9.0-12.2); MONOCYTES # (AUTO) 0.6 10^3/uL (0.0-1.0); MONOCYTES % (AUTO) 8 % (0-12); NEUTROPHILS % (AUTO) 43 % (42-75); PLATELET COUNT 355 10^3/uL (130-400)
[2023-05-11 05:57] LABS: ALBUMIN 3.2 GM/DL (3.2-4.5); BILIRUBIN,TOTAL 0.3 MG/DL (0.1-1.0); CALCIUM 8.6 MG/DL (8.5-10.1); CREATININE SERUM 2.52 MG/DL (0.60-1.30); POTASSIUM 3.3 MMOL/L (3.6-5.0); TOTAL PROTEIN 5.8 GM/DL (6.4-8.2)
[2023-05-11] MEDS: FUROSEMIDE 40 MG/4 ML INJ (LASIX) IV SCH (06:25)
[2023-05-11 07:41] VITALS: BP 119/86
[2023-05-11] MEDS: amLODIPine 10 MG (NORVASC) TAB PO SCH (07:59)
[2023-05-11] MEDS: SENNOSIDES 8.6 MG (SENOKOT) TAB PO SCH (08:00)
[2023-05-11] MEDS: APIXABAN 5 MG (ELIQUIS) TABLET PO SCH (08:00)
[2023-05-11] MEDS: DOCUSATE SODIUM 100 MG (COLACE) CAP PO SCH (08:00)
[2023-05-11] MEDS: meTOprolol TARTRATE 50 MG (LOPRESSOR) TAB PO SCH (08:00)
[2023-05-11] MEDS: SACUBITRIL/VALSARTAN 24/26 MG (ENTRESTO) TABLET PO SCH (08:00)
--- NOTE | 2023-05-11 10:25 | Cardiology Progress Note ---
Subjective Date Seen by Provider: May 11, 2023 Time Seen by Provider: 08:45 Subjective/Events-last exam Patient sitting up in bed, no new complaints. Denies any chest pain, reports dyspnea improving. Objective-Cardiology Exam Last Set of Vital Signs Vital Signs 05/11/23 05/11/23 08:03 11:10 Temp 36.0 Pulse 85 Resp 18 B/P (MAP) 110/82 (91) Pulse Ox 92 O2 Delivery Room Air O2 Flow Rate 2.00 I&O Intake and Output 05/11/23 00:00 Intake Total 1700 ml Output Total 3 ml Balance 1697 ml Intake Oral 1600 ml IV Total 100 ml Stool Total 3 ml # Voids 3 # Bowel Movements 1 General: Alert, Oriented X3, Cooperative HEENT: Atraumatic, PERRLA Neck: Supple, No JVD, No Thyromegaly Lungs: Clear to Auscultation, Normal Air Movement Heart: Regular Rate, Normal S1, Normal S2, No Murmurs Abdomen: Normal Bowel Sounds, Soft, No Tenderness, No Hepatosplenomegaly, No Masses Extremities: No Clubbing, No Cyanosis, No Edema, Normal Pulses, No Tenderness/Swelling Skin: No Rashes, No Breakdown, No Significant Lesion Neuro: Normal Gait, Normal Speech, Strength at 5/5 X4 Ext, Normal Tone, Sensation Intact Psych/Mental Status: Mental Status NL, Mood NL Results Lab Laboratory Tests 05/11/23 05:25 A/P-Cardiology Admission Diagnosis AE CHF HTN Bradycardia Assessment/Plan Acute on chronic, Nonischemic congestive heart failure, left ventricular systolic dysfunction. Most recent 2D Echo done February 2023 showing mild concentric hypertrophy, EF 40-45%. Grade 1 diastolic dysfunction. PA 40-45mmHg. Responding well to diuresis. History of Bradycardia, status post ICD implantation and repositioning done on August 24, 2015. Patient underwent another ICD revision with new pace/sense lead replacement, pocket revision, done by Dr. Castanon on May 10, 2019. Had another repositioning of the lead then had replacement of the lead. Currently there is questionable lead malfunctioning again, ICD interrogation was done on December 01, 2022 with good sensing and capture activity. Battery longevity 17 months, SVC lead appeared to be dislodged. Following with Dr Devries. Planning for ICD replacement in near future Hypertension, controlled, Hypokalemia, replace and continue to monitor. History of mid left atrial thrombus on 2-D echo report by history-I will try to obtain records from [facility] [place]. She is maintained on Eliquis History of tricuspid valve vegetation per 2-D echocardiogram in January 2015, Echocardiogram was done in March 2020 showing ejection fraction 30-35 percent, moderate MR, mild AR, [id number] TR, PA 30 mmHg. Anoxic encephalopathy Status post cardiopulmonary arrest History of illicit drug use, denies any recent drug use. Supervisory-Addendum Brief Supervisory Addendum Participated in pt care: history, MDM, physical Personally performed: exam, history, MDM Care discussed with: KEYA Results interpretation: Verified all documentation Notes: Patient was seen and evaluated with [place], examination performed, management plan was discussed, agree with the current scribed note, I made few changes to the note using Italic font Patient was laying down in bed, feeling better Breathing better Blood pressure is stable, electrolytes are stable Discussed with Dr. Devries regarding arrangement for placement of new ICD Follow-up as an outpatient, okay for discharge BLANCO MULTANI May 11, 2023 10:25 FELECIA FORTUNE MD May 11, 2023 12:05
[2023-05-11 11:10] VITALS: BP 110/82
[2023-05-11] MEDS ORDERED: METO50TA15 PO (11:26)
[2023-05-11] MEDS ORDERED: AMLO-251 PO (11:26)
[2023-05-11] MEDS ORDERED: ASPI-1238 PO (11:26)
[2023-05-11] MEDS ORDERED: APIX5TAB PO (11:26)
[2023-05-11] MEDS ORDERED: FURO40TA4 PO (11:26)
[2023-05-11] MEDS ORDERED: SACU1TAB2 PO (11:26)
--- NOTE | 2023-05-11 11:28 | Discharge Summary ---
Discharge Summary Hospital Course Was the Problem List Reviewed?: Yes Problems/Dx: (1) Acute on chronic congestive heart failure Status: Acute Qualifiers: Qualified Codes: I50.9 - Heart failure, unspecified Hospital Course Date of Admission: May 09, 2023 at 09:13 Admission Diagnosis : Family Physician/Provider: Itzel Fonseca Aprn Date of Discharge: 05/11/23 Discharge Diagnosis: [ ] Hospital Course: Hospital course: Patient had an uneventful hospital course for 3 days after she came in with acute on chronic congestive heart failure she did respond to IV diuresis. Cardiology was consulted. Multiple med changes initiated. Patient improved and creatinine remained stable at chronic kidney disease levels. Labs and Pending Lab Test: Laboratory Tests 05/11/23 05:25: White Blood Count 7.0, Red Blood Count 4.85, Hemoglobin 13.9, Hematocrit 43, Mean Corpuscular Volume 88, Mean Corpuscular Hemoglobin 29, Mean Corpuscular Hemoglobin Concent 33, Red Cell Distribution Width 15.3H, Platelet Count 355, Mean Platelet Volume 8.9L, Immature Granulocyte % (Auto) 0, Neutrophils (%) (Auto) 43, Lymphocytes (%) (Auto) 45H, Monocytes (%) (Auto) 8, Eosinophils (%) (Auto) 3, Basophils (%) (Auto) 1, Neutrophils # (Auto) 3.0, Lymphocytes # (Auto) 3.2, Monocytes # (Auto) 0.6, Eosinophils # (Auto) 0.2, Basophils # (Auto) 0.1, Immature Granulocyte # (Auto) 0.0, Sodium Level 138, Potassium Level 3.3L, Chloride Level 103, Carbon Dioxide Level 27, Anion Gap 8, Blood Urea Nitrogen 25H, Creatinine 2.52H, Estimat Glomerular Filtration Rate 25, BUN/Creatinine Ratio 10, Glucose Level 105, Calcium Level 8.6, Corrected Calcium 9.2, Total Bilirubin 0.3, Aspartate Amino Transf (AST/SGOT) 15, Alanine Aminotransferase (ALT/SGPT) 21, Alkaline Phosphatase 64, Total Protein 5.8L, Albumin 3.2 Home Meds Active Entresto 24 mg-26 mg Tablet (Sacubitril/Valsartan) 24 Mg-26 Mg Tablet 1 Tab PO BID Metoprolol Tartrate 50 Mg Tablet 50 Mg PO BID Aspirin EC (Aspirin) 81 Mg Tablet.dr 81 Mg PO DAILY Eliquis (Apixaban) 5 Mg Tablet 5 Mg PO BID Furosemide 40 Mg Tablet 40 Mg PO BID Amlodipine Besylate 10 Mg Tablet 10 Mg PO DAILY LAST FILLED 07-06-2022 #90/90 DAY SUPPLY Reported Hair, Skin & Nails Caplet (Multivit-Min/Folic Acid/Biotin) 66.7 Mcg-1,000 Mcg Tablet 1 Each PO DAILY K-Tab ER (Potassium Chloride) 10 Meq Tablet.er 10 Meq PO BID Escitalopram Oxalate 20 Mg Tablet 20 Mg PO DAILY Metoprolol Tartrate 100 Mg Tablet 100 Mg PO BID Ropinirole HCl 0.5 Mg Tablet 0.5 Mg PO HS Assessment/Pt Instructions PCP in 1 week Discharge Planning: <30 minutes discharge planning Discharge Instructions Discharge Diet: Low Sodium Diet Activity as Tolerated: Yes Discharge Physical Examination Vital Signs Vital Signs Date Time Temp Pulse Resp B/P (MAP) Pulse Ox O2 Delivery O2 Flow Rate FiO2 05/11/23 11:10 36.0 85 18 110/82 (91) 92 Room Air 05/11/23 08:03 2.00 General Appearance: No Apparent Distress, WD/WN, Chronically ill Allergies: Coded Allergies: JIA Inhibitors (Verified Allergy, Severe, 05/22/19) ARB-Angiotensin Receptor Antagonist (Verified Allergy, Severe, 05/22/19) amoxicillin (Verified Allergy, Unknown, 05/28/21) baclofen (Unverified Allergy, Unknown, 05/22/19) ON H&P clavulanic acid (Verified Allergy, Unknown, 05/28/21) phenazopyridine (Unverified Allergy, Unknown, 05/22/19) ON H&P Discharge Summary Date of Admission May 09, 2023 at 09:13 Date of Discharge Discharge Date: May 11, 2023 Admission Diagnosis Assessment: AECHF Cardiomyopathy HTN CKD SHEREEN hx Pacemaker Head injury hx Plan: IV Kemi Patterson consult Discharge Diagnosis Assessment: AECHF Cardiomyopathy HTN CKD SHEREEN hx Pacemaker Head injury hx Plan: ZAKI Patterson consult Clinical Quality Measures AMI/AHF: ASA po Prior to arrival: MEGGAN Edwards DO May 11, 2023 11:28
== END 2023-05-11 13:50 | disposition home or self-care (01) | DRG 291 ==
LOC: EDUNIT# 04:56 → ER 04:57 → CSD 09:13 → 4TH 05-10 14:15
PROVIDERS: ADMIT Internal Medicine; ATTEND Internal Medicine
DX: I13.0 Hypertensive heart and chronic kidney disease with heart failure and stage 1 through stage 4 chronic kidney disease, or unspecified chronic kidney disease (principal); I50.23 Acute on chronic systolic (congestive) heart failure; G93.1 Anoxic brain damage, not elsewhere classified; Z68.41 Body mass index [BMI] 40.0-44.9, adult; N18.9 Chronic kidney disease, unspecified; D50.9 Iron deficiency anemia, unspecified; Z79.82 Long term (current) use of aspirin; Z79.899 Other long term (current) drug therapy; E78.00 Pure hypercholesterolemia, unspecified; Z95.810 Presence of automatic (implantable) cardiac defibrillator; K21.9 Gastro-esophageal reflux disease without esophagitis; E66.9 Obesity, unspecified; F41.9 Anxiety disorder, unspecified; F31.9 Bipolar disorder, unspecified; R09.02 Hypoxemia; I42.8 Other cardiomyopathies; Z87.891 Personal history of nicotine dependence; Z79.01 Long term (current) use of anticoagulants
CPT/HCPCS: 36415; 71045; 80048; 80053; 80306; 82805; 83880; 84484; 85025; 93005; 94640; 94760; G0378

== ENCOUNTER 2023-05-18 07:10 | Day surgery (SDC) | payer MEDICARE, MEDICAID ==
[2023-05-18] VITALS (12 sets, daily range): BP systolic 110–140; BP diastolic 74–100
[~2023-05-18] VITALS: Ht 160 cm; Wt 103.4 kg
[~2023-05-18 07:10] MED LIST changes: +CLON1PAT34 TD; +ESCI20TA39 PO; +FURO40TA4 PO; +METO100T12 PO; +MULT-1018 PO; +SACU1TAB2 PO
[2023-05-18] MEDS ORDERED: LIDOCAINE 2% VISCOUS 15 ML UDC PO ONE (07:45)
[2023-05-18] MEDS ORDERED: NS IV 1000 ML 1,000 ML IV SCH (07:45)
[2023-05-18] MEDS ORDERED: LIDOCAINE 2% VISCOUS 15 ML UDC ONE (07:47)
[2023-05-18] MEDS ORDERED: NS IV 1000 ML 1,000 ML ONE (07:48)
--- NOTE | 2023-05-18 08:00 | Cardiac Procedure Note-CS/ASA ---
Pre-Procedure Note Pre-Op Procedure Note Date of Available H&P: May 11, 2023 Date H&P Reviewed: May 18, 2023 Time H&P Reviewed: 07:59 History & Physical: H&P Reviewed, Patient Examed, No changes noted Pre-Operative Diagnosis: CHF Moderate Sedation PreProcedure Time 08:00 ASA Score 3 Airway Lungs Heart ASA score ASA 1: a normal healthy patient ASA 2: a patient with a mild systemic disease (mid diabetes, controlled hypertension, obesity ASA 3: a patient with a severe systemic disease that limits activity (angina, COPD, prior Myocardial infarction) ASA 4: a patient with an incapacitating disease that is a constant threat to life (CHF, renal failure) ASA 5: a moribund patient not expected to survive 24 hrs. (ruptured aneurysm) ASA 6: a declared brain- patient whose organs are being harvested. For emergent operations, add the letter E after the classification Mallampati Classification Grade 3 Sedation Plan Analgesia, Amnesia, Plan communicated to team members, Discussed options with patient/fam, Discussed risks with patient/fam The patient is an appropriate candidate to undergo the planned procedure, sedation, and anesthesia. The patient immediately re-assessed prior to indication. FELECIA FORTUNE MD May 18, 2023 08:00
--- NOTE | 2023-05-18 08:15 | Diagnostic Imaging Report ---
EXAMINATION: Chest 1 view HISTORY: Thrombus in the left atrium. COMPARISON: 05/09/2023. FINDINGS: The lung volumes are normal. There is improved aeration throughout the lungs. No large pleural effusion or pneumothorax is seen. The cardiomediastinal silhouette is normal in size and contour. Left pectoral ICD is in place. No acute osseous abnormality is seen. IMPRESSION: 1. Improved aeration throughout the lungs, which may represent edema. Dictated by: Dictated on workstation # [id number]
[2023-05-18 08:38] LABS: POTASSIUM 3.8 MMOL/L (3.6-5.0)
[2023-05-18 08:39] LABS: CALCIUM 8.3 MG/DL (8.5-10.1)
[2023-05-18 08:44] LABS: CREATININE SERUM 2.89 MG/DL (0.60-1.30)
[2023-05-18] MEDS ORDERED: MIDAZOLAM 5 MG/5 ML (VERSED) VIAL ONE (08:44)
[2023-05-18] MEDS ORDERED: fentaNYL INJ 100 MCG/2 ML AMP ONE (08:44)
[2023-05-18] MEDS ORDERED: ROPI0.5T4 PO (08:45)
[2023-05-18] MEDS ORDERED: AMIT75TA2 PO (08:45)
[2023-05-18] MEDS ORDERED: APIX5TAB PO (08:45)
[2023-05-18] MEDS ORDERED: METO50TA15 PO (08:45)
[2023-05-18] MEDS ORDERED: ACET325T38 PO (08:45)
[2023-05-18] MEDS ORDERED: ASPI-1238 PO (08:45)
[2023-05-18] MEDS ORDERED: BIOT10005 PO (08:45)
[2023-05-18] MEDS ORDERED: SACU1TAB2 PO (08:45)
[2023-05-18] MEDS ORDERED: FAMO20TA3 PO (08:45)
[2023-05-18] MEDS ORDERED: FURO40TA4 PO (08:45)
[2023-05-18] MEDS ORDERED: AMLO-251 PO (08:45)
[2023-05-18] MEDS ORDERED: proPOfol 200 MG/20 ML (DIPRIVAN) VIAL IV ONE (09:03)
[2023-05-18] MEDS ORDERED: MIDAZOLAM 2 MG/2 ML (VERSED) VIAL ONE (09:03)
--- NOTE | 2023-05-18 09:42 | Discharge Inst-Post CATH ---
Discharge Inst-CATH/EP Problems Reviewed?: Yes Post Cardiac Cath/EP D/C Inst Follow Up/Plan Appointment with Dr. Patterson's office in 2 to 4 weeks <b>CARDIAC CATH/EP PROCEDURE DISCHARGE INSTRUCTIONS</b> ACTIVITY * Go Home directly and rest. * Limit activity of the leg (or wrist if it was used) for 7 days including aer obics, swimming, jogging, bicycling, etc. * Restrict stair-climbing for 7 days if possible, if not, climb up with your non-cath leg, then bring together on the same step. * Avoid lifting, pushing, pulling or excessive movement of the affected extremi ty for 7 days. * Customary sexual activity may be resumed after 2 days-use caution not to use a position that strains or causes pain to the affected extremity. * No driving for 24 hours. * NO SMOKING. * Avoid straining for bowel movements for 7 days. * Gentle walking on level ground is allowed. * Returning to work will depend on the type of procedure and the results. Your doctor will discuss this with you. CALL YOUR DOCTOR FOR ANY OF THE FOLLOWING: *If bleeding from the puncture site occurs- Apply gentle pressure to site with clean cloth and call your doctor or EMS. * If a knot or lump forms under the skin, increases in size, or causes pain. * If bruising appears to be worsening or moving further down your leg instead of disappearing. * Temperature above 101 F. CARE OF YOUR GROIN INCISION; * Bruising or purple discoloration of the skin near the puncture site is common. * You may shower only, no bathtub bathing for 5 days. Be careful to avoid slipping as your leg may feel stiff. * If a closure device was used on your femoral artery, please see the attached guide regarding care of the device and your leg. * Leave dressing on FOR 24 hours. CARE OF YOUR WRIST INCISION; * Bruising or purple discoloration of the skin near the puncture site is common. * You may shower. * DO NOT submerge wrist. * Leave dressing on FOR 24 hours. FELECIA PATTERSON MD May 18, 2023 09:42
--- NOTE | 2023-05-18 09:43 | Clinic Account Progress/Dx ---
Clinic Account Progress/Dx DIAGNOSIS: Date Seen by Provider: May 18, 2023 Time Seen by Provider: 09:43 Congestive heart failure, chronic compensated left ventricular systolic dysfunction, dilated nonischemic cardiomyopathy Permanent pacemaker Hypertension FELECIA FORTUNE MD May 18, 2023 09:43
[2023-05-18] MEDS ORDERED: ONDANSETRON 4 MG/2 ML (SDV) Z0FRAN ONE (10:04)
--- NOTE | 2023-05-18 14:23 | Anesthesia-General Post-Op ---
MAC Patient Condition Mental Status/LOC: Same as Preop Cardiovascular: Satisfactory Nausea/Vomiting: Absent Respiratory: Satisfactory Pain: Controlled Complications: Absent Post Op Complications Complications None Follow Up Care/Instructions Patient Instructions None needed. Anesthesiology Discharge Order Discharge Order Patient was doing well this morning after the procedure with no complaints, stable vital signs, no apparent adverse anesthesia problems. No complications reported per nursing. LUIS EDUARDO LAMAR DO May 18, 2023 14:23
[2023-05-18] MEDS ORDERED: ONDANSETRON 4 MG/2 ML (SDV) Z0FRAN IVP ONE (15:30)
== END 2023-05-18 12:45 | disposition home or self-care (01) ==
LOC: CATH 07:10 → SDC 10:38 → CATH 12:45
PROVIDERS: ATTEND Internal Medicine Cardiovascular Disease
DX: I11.0 Hypertensive heart disease with heart failure (principal); I50.22 Chronic systolic (congestive) heart failure; I42.0 Dilated cardiomyopathy; I42.8 Other cardiomyopathies; I34.0 Nonrheumatic mitral (valve) insufficiency; E66.9 Obesity, unspecified; G93.1 Anoxic brain damage, not elsewhere classified; Z86.74 Personal history of sudden cardiac arrest; E78.2 Mixed hyperlipidemia; I33.0 Acute and subacute infective endocarditis; Z86.718 Personal history of other venous thrombosis and embolism; Z95.810 Presence of automatic (implantable) cardiac defibrillator; Z79.899 Other long term (current) drug therapy; Z79.01 Long term (current) use of anticoagulants; Z68.41 Body mass index [BMI] 40.0-44.9, adult
CPT/HCPCS: 36415; 71045; 80048; 93005; 93312

== ENCOUNTER 2023-05-22 17:39 | Emergency (ER) | payer MEDICARE, MEDICAID ==
[~2023-05-22 17:39] MED LIST changes: +AMIT75TA2 PO; +BIOT10005 PO; +FAMO20TA3 PO
[2023-05-22] MEDS ORDERED: ASPIRIN 81 MG CHEW (CHILDREN'S ASA) PO ONE (17:45)
--- NOTE | 2023-05-22 17:53 | ED Chest Pain ---
General Stated Complaint: CHEST PAIN Source: patient, old records, mother History of Present Illness Date Seen by Provider: May 22, 2023 Time Seen by Provider: 17:43 Initial Comments PT ARRIVES VIA POV FROM HOME WITH MOTHER AND DAUGHTER C/O CHEST PAIN SINCE 2199 LAST NIGHT PAIN IS ALL ACROSS CHEST PAIN COMES AND GOES, RATES PAIN 5/10 NOW NOTHING WORSENS OR IMPROVES PAIN TOOK TYLENOL AT 11:00 AM TODAY, NO RELIEF NO SHORTNESS OF BREATH NO SWEATS NO SWELLING IN LEGS/FEET OR PAIN IN CALVES NO NAUSEA/VOMITING NO COUGH, NO FEVER OR RECENT ILLNESS SHE STATES SHE HAS BEEN DOING SOME LIFTING--MOVING FURNITURE, LIFTED COUCH, ETC. PT HAS PACEMAKER / DEFIBRILLATOR IN PLACE, WITH KNOWN BROKEN LEAD WIRES SHE HAS AN APPOINTMENT AT 06/11/23 WITH MULTIPLE SPECIALISTS FOR THIS PROBLEM AND IS TO HAVE SURGERY 06/21/23 FOR COMPLETE REPLACEMENT OF DEVICE. PCP: NORMA NGUYEN AT [facility] Allergies and Home Medications Allergies Coded Allergies: JIA Inhibitors (Verified Allergy, Severe, 05/22/19) ARB-Angiotensin Receptor Antagonist (Verified Allergy, Severe, 05/22/19) amoxicillin (Verified Allergy, Unknown, 05/28/21) baclofen (Unverified Allergy, Unknown, 05/22/19) ON H&P clavulanic acid (Verified Allergy, Unknown, 05/28/21) phenazopyridine (Unverified Allergy, Unknown, 05/22/19) ON H&P Patient Home Medication List Home Medication List Reviewed: Yes Acetaminophen (Tylenol) 325 Mg Tablet, 650 MG PO Q6H PRN for PAIN-MILD (1-4), (Reported) Entered as Reported by: VEL BAILEY on 05/18/23 0845 Amitriptyline HCl (Amitriptyline HCl) 75 Mg Tablet, 75 MG PO HS, (Reported) Entered as Reported by: VEL BAILEY on 05/18/23 0845 Amlodipine Besylate (Amlodipine Besylate) 10 Mg Tablet, 10 MG PO DAILY, (Reported) Entered as Reported by: VEL BAILEY on 05/18/23 0845 Apixaban (Eliquis) 5 Mg Tablet, 5 MG PO BID, (Reported) Entered as Reported by: VEL BAILEY on 05/18/23 0845 Aspirin (Aspirin EC) 81 Mg Tablet.dr, 81 MG PO DAILY, (Reported) Entered as Reported by: VEL BAILEY on 05/18/23 0845 Biotin (Biotin) 10,000 Mcg Capsule, 10,000 MCG PO BID, (Reported) Entered as Reported by: VEL BAILEY on 05/18/23 0845 Famotidine (Acid Adjunct Phlebotomy Instructor (FAMOTIDINE)) 20 Mg Tablet, 20 MG PO DAILY, (Reported) Entered as Reported by: VEL BAILEY on 05/18/23 0845 Furosemide (Furosemide) 40 Mg Tablet, 40 MG PO BID, (Reported) Entered as Reported by: VEL BAILEY on 05/18/23844 Metoprolol Tartrate (Metoprolol Tartrate) 50 Mg Tablet, 50 MG PO BID, (Reported) Entered as Reported by: VEL BAILEY on 05/18/23 0845 Ropinirole HCl (Ropinirole HCl) 0.5 Mg Tablet, 0.5 MG PO HS, (Reported) Entered as Reported by: VEL BAILEY on 05/18/23 0845 Sacubitril/Valsartan (Entresto 24 mg-26 mg Tablet) 24 Mg-26 Mg Tablet, 1 TAB PO BID, (Reported) Entered as Reported by: VEL BAILEY on 05/18/23 0845 Discontinued Medications Amlodipine Besylate (Amlodipine Besylate) 10 Mg Tablet, 10 MG PO DAILY Discontinued Reason: No Longer Taking Prescribed by: MEGGAN GARCIA on 05/11/231125 Apixaban (Eliquis) 5 Mg Tablet, 5 MG PO BID Discontinued Reason: No Longer Taking Prescribed by: MEGGAN GARCIA on 05/11/23 112 Aspirin (Aspirin EC) 81 Mg Tablet., 81 MG PO DAILY Discontinued Reason: No Longer Taking Prescribed by: MEGGAN GARCIA on 05/11/23 112 Escitalopram Oxalate (Escitalopram Oxalate) 20 Mg Tablet, 20 MG PO DAILY, (Reported) Discontinued Reason: No Longer Taking Entered as Reported by: RAND LOPEZ on 05/10/23 1644 Furosemide (Furosemide) 40 Mg Tablet, 40 MG PO BID Discontinued Reason: No Longer Taking Prescribed by: MEGGAN GARCIA on 05/11/23 112 Metoprolol Tartrate (Metoprolol Tartrate) 50 Mg Tablet, 50 MG PO BID Discontinued Reason: No Longer Taking Prescribed by: MEGGAN GARCIA on 05/11/23 1126 Multivit-Min/Folic Acid/Biotin (Hair, Skin & Nails Caplet) 66.7 Mcg-1,000 Mcg Tablet, 1 EACH PO DAILY, (Reported) Discontinued Reason: No Longer Taking Entered as Reported by: RAND LOPEZ on 05/10/23 1647 Ropinirole HCl (Ropinirole HCl) 0.5 Mg Tablet, 0.5 MG PO HS, (Reported) Discontinued Reason: No Longer Taking Entered as Reported by: TALISHA CELIS on 08/05/18 1810 Sacubitril/Valsartan (Entresto 24 mg-26 mg Tablet) 24 Mg-26 Mg Tablet, 1 TAB PO BID Discontinued Reason: No Longer Taking Prescribed by: MEGGAN GARCIA on 05/11/23 1126 Review of Systems Review of Systems Constitutional: no symptoms reported Respiratory: No Symptoms Reported Cardiovascular: See HPI Gastrointestinal: No Symptoms Reported Genitourinary: No Symptoms Reported Musculoskeletal: no symptoms reported Skin: no symptoms reported Psychiatric/Neurological: No Symptoms Reported Endocrine: No Symptoms Reported Hematologic/Lymphatic: No Symptoms Reported Past Byucchp-Dwtcst-Kbbsnm Hx Patient Social History Tobacco Use?: Yes Smoking Status: Former Smoker Substance use?: Yes Substance type: Methamphetamine Alcohol Use?: Yes Immunizations Up To Date Tetanus Booster (TDap): Unknown PED Vaccines UTD: Yes First/Initial COVID19 Vaccinat: X3 Second COVID19 Vaccination Adair: Pfizer Third COVID19 Vaccination Date: Yieldex Seasonal Allergies Seasonal Allergies: No Past Medical History Surgery/Hospitalization HX: DEFIBRILLATOR, PACEMAKER REMOVED, HEART FAILURE, HTN, HIGH CHOLESTEROL, Surgeries: Yes (PACER/DEFIB 2014; DEFIB PLACED 05/10/19. PEG TUBE- REMOVED;UTERINE ABLATION) Abdominal, Section, Defibrillator, Gallbladder, Hysterectomy, Pacemaker Respiratory: Yes (ARDS-CODED; PNEUMOTHORAX 06/2015) Pneumonia, Chronic Bronchitis Currently Using CPAP: No Currently Using BIPAP: No Cardiac: Yes (PULMONARY EDEMA/CARDIAC CAUSE-R/T ATRIAL THROMBUS; CARDIAC ARREST;V-FIB ) Cardiomyopathy, Endocarditis, Hypertension, Valvular Heart Disease Neurological: Yes (encephalopathy-hypoxia, anoxic brain injury; POOR MEMORY;SL URRED SPEECH) Reproductive Disorders: Yes (ENDOMETRIAL ABLATION) Female Reproductive Disorders: Menstrual Problems Sexually Transmitted Disease: No Genitourinary: Yes (BASELINE CREATININE BETWEEN 2 & 3) Renal Failure Gastrointestinal: Yes Gastroesophageal Reflux Musculoskeletal: Yes (GAIT DISTURBANCE) Endocrine: No (OBESITY) HEENT: No Loss of Vision: Denies Hearing Impairment: Denies Cancer: No Psychosocial: Yes (SUBSTANCE ABUSE) Anxiety, Bipolar, Depression Integumentary: No Blood Disorders: Yes (ANEMIA) Family Medical History Patient reports no known family medical history. 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 SHE HAS HAD A DEFIBRILLATOR IN PLACE SINCE AGE 24. Physical Exam Vital Signs Vital Signs - First Documented 05/22/23 17:40 Pulse 90 Resp 14 B/P (MAP) 129/96 (107) Pulse Ox 97 O2 Delivery Room Air Capillary Refill : Height, Weight, BMI Height: 5'3.00" Weight: 234lbs. 0oz. 106.205765ag; 40.39 BMI Method:Stated General Appearance: No Apparent Distress, WD/WN Neck: Normal Inspection Respiratory: Normal Breath Sounds, No Accessory Muscle Use, No Respiratory Distress, Other (ANTERIOR CHEST TENDER TO PALPATION--REPRODUCES PAIN ) Cardiovascular: Regular Rate, Rhythm, No Edema, No JVD, Normal Peripheral Pulses Gastrointestinal: Non Tender, Soft Extremity: Normal Capillary Refill, Normal Inspection, Normal Range of Motion, No Pedal Edema Neurologic/Psychiatric: Alert, Oriented x3, No Motor/Sensory Deficits, Normal Mood/Affect, a p supervisor II-XII Norm as Tested Skin: Normal Color (PT IS BLACK), Warm/Dry Progress/Results/Core Measures Results/Orders Lab Results Laboratory Tests Test 05/22/23 17:50 05/22/23 18:50 Range/Units White Blood Count 7.0 4.3-11.0 10^3/uL Red Blood Count 4.68 3.80-5.11 10^6/uL Hemoglobin 13.4 11.5-16.0 g/dL Hematocrit 42 35-52 % Mean Corpuscular Volume 89 80-99 fL Mean Corpuscular Hemoglobin 29 25-34 pg Mean Corpuscular Hemoglobin Concent 32 32-36 g/dL Red Cell Distribution Width 15.2 H 10.0-14.5 % Platelet Count 358 130-400 10^3/uL Mean Platelet Volume 8.8 L 9.0-12.2 fL Immature Granulocyte % (Auto) 0 % Neutrophils (%) (Auto) 42 42-75 % Lymphocytes (%) (Auto) 49 H 12-44 % Monocytes (%) (Auto) 7 0-12 % Eosinophils (%) (Auto) 2 0-10 % Basophils (%) (Auto) 1 0-10 % Neutrophils # (Auto) 2.9 1.8-7.8 10^3/uL Lymphocytes # (Auto) 3.4 1.0-4.0 10^3/uL Monocytes # (Auto) 0.5 0.0-1.0 10^3/uL Eosinophils # (Auto) 0.1 0.0-0.3 10^3/uL Basophils # (Auto) 0.1 0.0-0.1 10^3/uL Immature Granulocyte # (Auto) 0.0 0.0-0.1 10^3/uL Prothrombin Time 12.6 12.2-14.7 SEC INR Comment 0.9 0.8-1.4 Activated Partial Thromboplast Time 30 24-35 SEC Sodium Level 139 135-145 MMOL/L Potassium Level 3.9 3.6-5.0 MMOL/L Chloride Level 107 98-107 MMOL/L Carbon Dioxide Level 22 21-32 MMOL/L Anion Gap 10 5-14 MMOL/L Blood Urea Nitrogen 22 H 7-18 MG/DL Creatinine 2.87 H 0.60-1.30 MG/DL Estimat Glomerular Filtration Rate 21 BUN/Creatinine Ratio 8 Glucose Level 107 H 70-105 MG/DL Calcium Level 8.4 L 8.5-10.1 MG/DL Corrected Calcium 8.9 8.5-10.1 MG/DL Magnesium Level 2.0 1.6-2.4 MG/DL Total Bilirubin 0.2 0.1-1.0 MG/DL Aspartate Amino Transf (AST/SGOT) 14 5-34 U/L Alanine Aminotransferase (ALT/SGPT) 16 0-55 U/L Alkaline Phosphatase 81 40-136 U/L Total Creatine Kinase 145 29-168 U/L Creatine Kinase MB 1.0 <6.6 NG/ML Myoglobin 74.7 10.0-92.0 NG/ML Troponin I < 0.028 <0.028 NG/ML B-Type Natriuretic Peptide 195.1 H <100.0 PG/ML Total Protein 6.2 L 6.4-8.2 GM/DL Albumin 3.4 3.2-4.5 GM/DL Amylase Level 127 H 25-125 U/L Lipase 34 8-78 U/L Serum Test, Qualitative NEGATIVE NEGATIVE Serum Alcohol < 10 <10 MG/DL Urine Opiates Screen NEGATIVE NEGATIVE Urine Oxycodone Screen NEGATIVE NEGATIVE Urine Methadone Screen NEGATIVE NEGATIVE Urine Propoxyphene Screen NEGATIVE NEGATIVE Urine Barbiturates Screen NEGATIVE NEGATIVE Ur Tricyclic Antidepressants Screen POSITIVE H NEGATIVE Urine Phencyclidine Screen NEGATIVE NEGATIVE Urine Amphetamines Screen NEGATIVE NEGATIVE Urine Methamphetamines Screen NEGATIVE NEGATIVE Urine Benzodiazepines Screen NEGATIVE NEGATIVE Urine Cocaine Screen NEGATIVE NEGATIVE Urine Cannabinoids Screen NEGATIVE NEGATIVE My Orders Orders - RODRIGO HILL DO Ekg Tracing (05/22/23 17:42) Cbc With Automated Diff (05/22/23 17:43) Magnesium (05/22/23 17:43) Chest 1 View, Ap/Pa Only (05/22/23 17:43) Comprehensive Metabolic Panel (05/22/23 17:43) Myoglobin Serum (05/22/23 17:43) Protime With Inr (05/22/23 17:43) Partial Thromboplastin Time (05/22/23 17:43) O2 (05/22/23 17:43) Monitor-Rhythm Ecg Trace Only (05/22/23 17:43) Ed Iv/Invasive Line Start (05/22/23 17:43) Creatine Kinase (05/22/23 17:43) Creatine Kinase Mb (05/22/23 17:43) Lipase (05/22/23 17:43) Amylase (05/22/23 17:43) Troponin I [place] (05/22/23 17:43) Aspirin Chewable Tablet (Baby Aspirin Ch (05/22/23 17:45) Alcohol (05/22/23 17:43) Drug Screen Stat (Urine) (05/22/23 17:43) Hcg,Qualitative Serum (05/22/23 17:43) Bnp [place] (05/22/23 18:34) Medications Given in ED Current Medications Medications Dose Ordered Sig/Mikal Route Start Time Stop Time Status Last Admin Dose Admin Aspirin 324 mg ONCE ONCE PO 05/22/23 17:45 05/22/23 17:46 DC 05/22/23 18:02 324 MG Vital Signs/I&O 05/22/23 05/22/23 17:40 19:20 Pulse 90 73 Resp 14 18 B/P (MAP) 129/96 (107) 112/75 Pulse Ox 97 100 O2 Delivery Room Air Room Air Progress Progress Note : Progress Note CHEST PAIN PROTOCOL INITIATED LABS, EKG AND CXR ALL UNREMARKABLE PAIN IS REPRODUCIBLE TO PALPATION, AND PT GIVES HISTORY OF RECENT LIFTING, ETC. VITALS STABLE--NO HTN, NO TACHYCARDIA REVIEWED PRIOR RECORDS, PT HAS BEEN HERE A MULTITUDE OF TIMES FOR VARIOUS COMPLAINTS, MANY FOR CHEST PAIN DISCUSSED TEST RESULTS, ANTICIPATED COURSE, SYMPTOMATIC TREATMENT, ACTIVITY RESTRICTIONS, NEED FOR FOLLOW UP AND RETURN PRECAUTIONS Initial ECG Impression Date: May 22, 2023 Initial ECG Impression Time: 17:44 Initial ECG Rate: 92 Initial ECG Rhythm: Normal Sinus Initial ECG Intervals NC 184, QRS 98, QT/QTC 414/513 Comment INTERPRETED BY ME Diagnostic Imaging Comments CXR--PER RADIOLOGIST REPORT AT 1818 FINDINGS: The heart size is normal. Pacemaker overlies the left hemithorax. There are no abandoned leads. Pacemaker is intact. No pleural effusion, pneumothorax or pneumonia. The mediastinum is unremarkable. IMPRESSION: No acute cardiopulmonary abnormality. Reviewed: Reviewed by Me Departure Impression Primary Impression: Chest wall pain Disposition: 01 HOME, SELF-CARE Condition: Stable Departure-Patient Inst. Decision time for Depature: 19:14 Referrals: BROWN NGUYEN APRN (PCP/Family) Primary Care Physician Patient Instructions: Costochondritis, Chest Pain, Adult ED Add. Discharge Instructions: CONTINUE YOUR REGULAR MEDICATIONS PRESCRIBED YOU MAY TAKE 2 TYLENOL EVERY 6 HOURS NEEDED FOR PAIN FOLLOW UP WITH YOUR DOCTORS AT SCHEDULED, FOLLOW UP WITH YOUR LOCAL DOCTORS HERE NEEDED RODRIGO HILL DO May 22, 2023 17:53
[2023-05-22 18:03] LABS: BASOPHILS # (AUTO) 0.1 10^3/uL (0.0-0.1); BASOPHILS % (AUTO) 1 % (0-10); EOSINOPHILS # (AUTO) 0.1 10^3/uL (0.0-0.3); EOSINOPHILS % (AUTO) 2 % (0-10); HEMATOCRIT 42 % (35-52); HEMOGLOBIN 13.4 g/dL (11.5-16.0); LYMPHOCYTES # (AUTO) 3.4 10^3/uL (1.0-4.0); LYMPHOCYTES % (AUTO) 49 % (12-44); MEAN CORPUSCULAR HEMOGLOBIN 29 pg (25-34); MEAN CORPUSCULAR HGB CONC 32 g/dL (32-36); MEAN CORPUSCULAR VOLUME 89 fL (80-99); MEAN PLATELET VOLUME 8.8 fL (9.0-12.2); MONOCYTES # (AUTO) 0.5 10^3/uL (0.0-1.0); MONOCYTES % (AUTO) 7 % (0-12); NEUTROPHILS # (AUTO) 2.9 10^3/uL (1.8-7.8); NEUTROPHILS % (AUTO) 42 % (42-75); PLATELET COUNT 358 10^3/uL (130-400)
--- NOTE | 2023-05-22 18:16 | Diagnostic Imaging Report ---
INDICATION: Chest pain. COMPARISON: Prior examination from 05/18/2023. FINDINGS: The heart size is normal. Pacemaker overlies the left hemithorax. There are no abandoned leads. Pacemaker is intact. No pleural effusion, pneumothorax or pneumonia. The mediastinum is unremarkable. IMPRESSION: No acute cardiopulmonary abnormality. Dictated by: Dictated on workstation # [id number]
[2023-05-22 18:17] LABS: ALBUMIN 3.4 GM/DL (3.2-4.5); CHLORIDE 107 MMOL/L (98-107); POTASSIUM 3.9 MMOL/L (3.6-5.0); SODIUM 139 MMOL/L (135-145)
[2023-05-22 18:18] LABS: CALCIUM 8.4 MG/DL (8.5-10.1); INR 0.9 (0.8-1.4); PROTHROMBIN TIME PATIENT 12.6 SEC (12.2-14.7)
[2023-05-22 18:19] LABS: AMYLASE 127 U/L (25-125)
[2023-05-22 18:20] LABS: GLUCOSE 107 MG/DL (70-105); TOTAL PROTEIN 6.2 GM/DL (6.4-8.2)
[2023-05-22 18:21] LABS: CARBON DIOXIDE 22 MMOL/L (21-32)
[2023-05-22 18:22] LABS: BILIRUBIN,TOTAL 0.2 MG/DL (0.1-1.0)
[2023-05-22 18:23] LABS: ALKALINE PHOSPHATASE 81 U/L (40-136)
[2023-05-22 18:24] LABS: CREATININE SERUM 2.87 MG/DL (0.60-1.30); GFR ESTIMATED 21
[2023-05-22 18:25] LABS: BUN/CREATININE RATIO 8
[2023-05-22 18:26] LABS: ALANINE AMINOTRANSFERASE 16 U/L (0-55)
[2023-05-22 18:28] LABS: CREATINE KINASE 145 U/L (29-168); LIPASE 34 U/L (8-78)
[2023-05-22 19:10] LABS: AMPHETAMINE SCREEN, URINE NEGATIVE (NEGATIVE); BARBITURATE SCREEN URINE NEGATIVE (NEGATIVE); BENZODIAZEPINES SCREEN URINE NEGATIVE (NEGATIVE); CANNABINOID SCREEN, URINE NEGATIVE (NEGATIVE); COCAINE SCREEN URINE NEGATIVE (NEGATIVE); METHADONE STAT NEGATIVE (NEGATIVE); OPIATE SCREEN URINE NEGATIVE (NEGATIVE); OXYCODONE STAT NEGATIVE (NEGATIVE); PROPOXYPHENE STAT NEGATIVE (NEGATIVE); TRICYCLIC ANTIDEPRESSANTS SCRE POSITIVE (NEGATIVE)
[2023-05-22 19:20] VITALS: BP 112/75
== END 2023-05-22 19:20 | disposition home or self-care (01) ==
LOC: EDUNIT# 17:39 → ER 17:42
DX: R07.89 Other chest pain (principal); E66.9 Obesity, unspecified; Z68.41 Body mass index [BMI] 40.0-44.9, adult; Z87.891 Personal history of nicotine dependence; Z95.810 Presence of automatic (implantable) cardiac defibrillator
CPT/HCPCS: 36415; 71045; 80053; 80306; 80320; 82150; 82550; 82553; 83690; 83735; 83874; 83880; 84484; 84703; 85025; 85610; 85730; 93005; 93041

== ENCOUNTER 2023-05-26 01:37 | Inpatient (IN) | payer MEDICARE, MEDICAID ==
[2023-05-26] VITALS (7 sets, daily range): BP systolic 99–146; BP diastolic 56–114
[~2023-05-26] VITALS: Ht 160 cm; Wt 105.9 kg
[2023-05-26 02:01] LABS: BASOPHILS # (AUTO) 0.1 10^3/uL (0.0-0.1); BASOPHILS % (AUTO) 1 % (0-10); EOSINOPHILS # (AUTO) 0.2 10^3/uL (0.0-0.3); EOSINOPHILS % (AUTO) 2 % (0-10); HEMATOCRIT 43 % (35-52); HEMOGLOBIN 13.8 g/dL (11.5-16.0); LYMPHOCYTES # (AUTO) 4.4 10^3/uL (1.0-4.0); LYMPHOCYTES % (AUTO) 53 % (12-44); MEAN CORPUSCULAR HEMOGLOBIN 29 pg (25-34); MEAN CORPUSCULAR HGB CONC 32 g/dL (32-36); MEAN CORPUSCULAR VOLUME 89 fL (80-99); MEAN PLATELET VOLUME 8.7 fL (9.0-12.2); MONOCYTES # (AUTO) 0.7 10^3/uL (0.0-1.0); MONOCYTES % (AUTO) 8 % (0-12); NEUTROPHILS % (AUTO) 37 % (42-75); PLATELET COUNT 389 10^3/uL (130-400); WHITE BLOOD COUNT 8.3 10^3/uL (4.3-11.0)
[2023-05-26 02:12] LABS: INR 0.9 (0.8-1.4); PROTHROMBIN TIME PATIENT 12.1 SEC (12.2-14.7)
[2023-05-26 02:13] LABS: ALBUMIN 3.7 GM/DL (3.2-4.5); CHLORIDE 107 MMOL/L (98-107); POTASSIUM 3.8 MMOL/L (3.6-5.0); SODIUM 140 MMOL/L (135-145)
[2023-05-26 02:14] LABS: CALCIUM 8.4 MG/DL (8.5-10.1)
[2023-05-26 02:15] LABS: AMYLASE 119 U/L (25-125); FIBRIN DEGRADATION PRODUCTS 0.51 UG/ML (0.00-0.49)
[2023-05-26 02:16] LABS: GLUCOSE 91 MG/DL (70-105); TOTAL PROTEIN 6.7 GM/DL (6.4-8.2)
[2023-05-26 02:17] LABS: BILIRUBIN,TOTAL 0.2 MG/DL (0.1-1.0); CARBON DIOXIDE 23 MMOL/L (21-32)
[2023-05-26 02:19] LABS: ALKALINE PHOSPHATASE 84 U/L (40-136); CREATININE SERUM 2.98 MG/DL (0.60-1.30); GFR ESTIMATED 20
[2023-05-26 02:20] LABS: BUN/CREATININE RATIO 6
[2023-05-26 02:22] LABS: ALANINE AMINOTRANSFERASE 16 U/L (0-55); MAGNESIUM 2.2 MG/DL (1.6-2.4)
[2023-05-26 02:23] LABS: LIPASE 40 U/L (8-78)
[2023-05-26] MEDS ORDERED: ASPIRIN 81 MG CHEW (CHILDREN'S ASA) PO ONE (02:45)
[2023-05-26] MEDS ORDERED: NITROGLYCERIN 2% OINT 1 GM UNIT DOSE PACKET TOP ONE (02:45)
--- NOTE | 2023-05-26 02:46 | ED Cardiac General ---
History of Present Illness General Chief Complaint: Chest Pain Stated Complaint: SOA Nursing Triage Note: PT AMB TO RM 6 W C/O CP AND SOA SX 1300 YESTERDAY. PT A&OX4, NO RESP DISTRESS NOTED. Source: patient, old records History of Present Illness Date Seen by Provider: May 26, 2023 Time Seen by Provider: 01:45 Initial Comments PT ARRIVES VIA POV FROM HOME WITH MOTHER PT C/O CHEST PAIN AND SHORTNESS OF BREATH SINCE 1300 THIS AFTERNOON 05/25/23 SYMPTOMS NO DIFFERENT TONIGHT HAS NOT TAKEN ANYTHING FOR SYMPTOMS NO SWELLING IN LEGS/FEET NO SWEATS NO NAUSEA/VOMITING NO DIZZINESS OR SYNCOPE SHE HAS LONG HISTORY OF NON-COMPLIANCE WITH HER MEDICATIONS, SHE STATES SHE DOES NOT REMEMBER IF SHE TOOK HER MEDICATIONS TODAY OR NOT. SHE THOUGHT SHE DID BUT HER DAUGHTER SAID SHE DIDN'T, AND PT'S MOTHER DOES NOT KNOW IF SHE HAS TAKEN ANY OF HER MEDICATIONS OR NOT. 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 STATES SHE IS AFRAID SHE WON'T WAKE UP AFTER SURGERY AND SHE WILL . SHE HAS HAD A MULTITUDE OF VISITS HERE FOR VARIOUS COMPLAINTS, MANY FOR C/O CHEST PAIN AND/OR SHORTNESS OF BREATH THIS IS HER 7TH VISIT THIS MONTH, IN ADDITION TO OUTPATIENT ECHO CARDIOGRAM 05/18/23 HER LAST ER VISIT WAS 05/22/23 FOR REPRODUCIBLE CHEST WALL PAIN AFTER LIFTING/MOVING FURNITURE, AND CARDIAC ENZYMES WERE NEGATIVE AND EKG WAS UNCHANGED. PCP: [facility] BAND DIRECTOR: DR. FORTUNE Allergies and Home Medications Allergies Coded Allergies: JIA Inhibitors (Verified Allergy, Severe, 05/22/19) ARB-Angiotensin Receptor Antagonist (Verified Allergy, Severe, 05/22/19) amoxicillin (Verified Allergy, Unknown, 05/28/21) baclofen (Unverified Allergy, Unknown, 05/22/19) ON H&P clavulanic acid (Verified Allergy, Unknown, 05/28/21) phenazopyridine (Unverified Allergy, Unknown, 05/22/19) ON H&P Patient Home Medication List Home Medication List Reviewed: Yes Acetaminophen (Tylenol) 325 Mg Tablet, 650 MG PO Q6H PRN for PAIN-MILD (1-4), (Reported) Entered as Reported by: VEL BAILEY on 05/18/23844 Amitriptyline HCl (Amitriptyline HCl) 75 Mg Tablet, 75 MG PO HS, (Reported) Entered as Reported by: VEL BAILEY on 05/18/23844 Amlodipine Besylate (Amlodipine Besylate) 10 Mg Tablet, 10 MG PO DAILY, (Reported) Entered as Reported by: VEL BAILEY on 05/18/23844 Apixaban (Eliquis) 5 Mg Tablet, 5 MG PO BID, (Reported) Entered as Reported by: VEL BAILEY on 05/18/23844 Aspirin (Aspirin EC) 81 Mg Tablet.dr, 81 MG PO DAILY, (Reported) Entered as Reported by: VEL BAILEY on 05/18/23844 Biotin (Biotin) 10,000 Mcg Capsule, 10,000 MCG PO BID, (Reported) Entered as Reported by: VEL BAILEY on 05/18/23844 Famotidine (Acid Photo Tube Assembler (FAMOTIDINE)) 20 Mg Tablet, 20 MG PO DAILY, (Reported) Entered as Reported by: VEL BAILEY on 05/18/23844 Furosemide (Furosemide) 40 Mg Tablet, 40 MG PO BID, (Reported) Entered as Reported by: VEL BAILEY on 05/18/23844 Metoprolol Tartrate (Metoprolol Tartrate) 50 Mg Tablet, 50 MG PO BID, (Reported) Entered as Reported by: VEL BAILEY on 05/18/23844 Ropinirole HCl (Ropinirole HCl) 0.5 Mg Tablet, 0.5 MG PO HS, (Reported) Entered as Reported by: VEL BAILEY on 05/18/23844 Sacubitril/Valsartan (Entresto 24 mg-26 mg Tablet) 24 Mg-26 Mg Tablet, 1 TAB PO BID, (Reported) Entered as Reported by: VEL BAILEY on 05/18/23844 Review of Systems Review of Systems Constitutional: no symptoms reported; No diaphoresis EENTM: No Symptoms Reported Respiratory: See HPI, Shortness of Air Cardiovascular: See HPI, Chest Pain; Denies Edema, Denies Irregular Heart Rate, Denies Lightheadedness, Denies Palpitations, Denies Syncope Gastrointestinal: No Symptoms Reported Genitourinary: No Symptoms Reported Musculoskeletal: no symptoms reported Skin: no symptoms reported Psychiatric/Neurological: Anxiety Endocrine: No Symptoms Reported Hematologic/Lymphatic: No Symptoms Reported Past Qlhejat-Buijit-Rbywfi Hx Patient Social History Tobacco Use?: No Use of E-Cig and/or Vaping dev: No Substance use?: No Alcohol Use?: No Immunizations Up To Date Tetanus Booster (TDap): Unknown PED Vaccines UTD: Yes First/Initial COVID19 Vaccinat: X3 Second COVID19 Vaccination Adair: Pfizer Third COVID19 Vaccination Date: [employer] Seasonal Allergies Seasonal Allergies: No Past Medical History Surgery/Hospitalization HX: DEFIBRILLATOR, PACEMAKER REMOVED, HEART FAILURE, HTN, HIGH CHOLESTEROL Surgeries: Yes (PACER/DEFIB 2014; DEFIB PLACED 05/10/19. PEG TUBE- REMOVED;UTERINE ABLATION) Abdominal, Section, Defibrillator, Gallbladder, Hysterectomy, Pacemaker Respiratory: Yes (ARDS-CODED; PNEUMOTHORAX 06/2015) Pneumonia, Chronic Bronchitis Currently Using CPAP: No Currently Using BIPAP: No Cardiac: Yes (PULMONARY EDEMA/CARDIAC CAUSE-R/T ATRIAL THROMBUS; CARDIAC ARREST;V-FIB ) Cardiomyopathy, Endocarditis, Hypertension, Valvular Heart Disease Neurological: Yes (encephalopathy-hypoxia, anoxic brain injury; POOR MEMORY;SLURRED SPEECH) Reproductive Disorders: Yes (ENDOMETRIAL ABLATION) Female Reproductive Disorders: Menstrual Problems Sexually Transmitted Disease: No Genitourinary: Yes (BASELINE CREATININE BETWEEN 2 & 3) Renal Failure Gastrointestinal: Yes Gastroesophageal Reflux Musculoskeletal: Yes (GAIT DISTURBANCE) Endocrine: No (OBESITY) HEENT: No Loss of Vision: Denies Hearing Impairment: Denies Cancer: No Psychosocial: Yes (SUBSTANCE ABUSE) Anxiety, Bipolar, Depression Integumentary: No Blood Disorders: Yes (ANEMIA) Family Medical History Patient reports no known family medical history. 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 SHE HAS HAD A DEFIBRILLATOR IN PLACE SINCE AGE 24. T.E.E. 05/18/[address] FORTUNE: -SEVERE DIFFUSE HYPOKINESIA OF LEFT VENTRICLE -4 CHAMBER DILATION -EF 20% -NO CLOTS/THROMBUS -NO VEGETATIONS -MODERATE MITRAL REGURGITATION. Physical Exam Vital Signs Vital Signs - First Documented 05/26/23 01:43 Temp 36.5 Pulse 110 Resp 28 B/P (MAP) 167/136 (146) Pulse Ox 99 O2 Delivery Room Air Capillary Refill : Less Than 3 Seconds Height, Weight, BMI Height: 5'3.00" Weight: 234lbs. 0oz. 106.121033if; 39.00 BMI Method:Stated General Appearance: No Apparent Distress, WD/WN, Anxious Neck: Normal Inspection Respiratory: Normal Breath Sounds, No Accessory Muscle Use, No Respiratory Distress, Other (ANTERIOR CHEST TENDER TO PALPATION; PT IS HYPERVENTILATION ON ARRIVAL, WITH SHALLOW RAPID BREATHS. ) Cardiovascular: Regular Rate, Rhythm, No Edema, No JVD, Normal Peripheral Pulses Gastrointestinal: Non Tender, Soft Extremity: Normal Capillary Refill, Normal Inspection, Non Tender, No Calf T enderness, No Pedal Edema Neurologic/Psychiatric: Alert, Oriented x3 (BUT POOR MEMORY--NORMAL FOR PT), No Motor/Sensory Deficits, emergency room clerk II-XII Norm as Tested, Other (SPEECH IS SOMEWHAT SLURRED/THICK TONGUED--NORMAL FOR PT) Skin: Normal Color (PT IS BLACK), Warm/Dry; No Rash Progress/Results/Core Measures Results/Orders Lab Results Laboratory Tests Test 05/26/23 01:52 05/26/23 04:08 Range/Units White Blood Count 8.3 4.3-11.0 10^3/uL Red Blood Count 4.83 3.80-5.11 10^6/uL Hemoglobin 13.8 11.5-16.0 g/dL Hematocrit 43 35-52 % Mean Corpuscular Volume 89 80-99 fL Mean Corpuscular Hemoglobin 29 25-34 pg Mean Corpuscular Hemoglobin Concent 32 32-36 g/dL Red Cell Distribution Width 15.2 H 10.0-14.5 % Platelet Count 389 130-400 10^3/uL Mean Platelet Volume 8.7 L 9.0-12.2 fL Immature Granulocyte % (Auto) 0 % Neutrophils (%) (Auto) 37 L 42-75 % Lymphocytes (%) (Auto) 53 H 12-44 % Monocytes (%) (Auto) 8 0-12 % Eosinophils (%) (Auto) 2 0-10 % Basophils (%) (Auto) 1 0-10 % Neutrophils # (Auto) 3.0 1.8-7.8 10^3/uL Lymphocytes # (Auto) 4.4 H 1.0-4.0 10^3/uL Monocytes # (Auto) 0.7 0.0-1.0 10^3/uL Eosinophils # (Auto) 0.2 0.0-0.3 10^3/uL Basophils # (Auto) 0.1 0.0-0.1 10^3/uL Immature Granulocyte # (Auto) 0.0 0.0-0.1 10^3/uL Prothrombin Time 12.1 L 12.2-14.7 SEC INR Comment 0.9 0.8-1.4 Activated Partial Thromboplast Time 29 24-35 SEC D-Dimer 0.51 H 0.00-0.49 UG/ML Sodium Level 140 135-145 MMOL/L Potassium Level 3.8 3.6-5.0 MMOL/L Chloride Level 107 98-107 MMOL/L Carbon Dioxide Level 23 21-32 MMOL/L Anion Gap 10 5-14 MMOL/L Blood Urea Nitrogen 18 7-18 MG/DL Creatinine 2.98 H 0.60-1.30 MG/DL Estimat Glomerular Filtration Rate 20 BUN/Creatinine Ratio 6 Glucose Level 91 70-105 MG/DL Calcium Level 8.4 L 8.5-10.1 MG/DL Corrected Calcium 8.6 8.5-10.1 MG/DL Magnesium Level 2.2 1.6-2.4 MG/DL Total Bilirubin 0.2 0.1-1.0 MG/DL Aspartate Amino Transf (AST/SGOT) 16 5-34 U/L Alanine Aminotransferase (ALT/SGPT) 16 0-55 U/L Alkaline Phosphatase 84 40-136 U/L Troponin I < 0.028 <0.028 NG/ML B-Type Natriuretic Peptide 268.5 H <100.0 PG/ML Total Protein 6.7 6.4-8.2 GM/DL Albumin 3.7 3.2-4.5 GM/DL Amylase Level 119 25-125 U/L Lipase 40 8-78 U/L Serum Alcohol < 10 <10 MG/DL Urine Opiates Screen NEGATIVE NEGATIVE Urine Oxycodone Screen NEGATIVE NEGATIVE Urine Methadone Screen NEGATIVE NEGATIVE Urine Propoxyphene Screen NEGATIVE NEGATIVE Urine Barbiturates Screen NEGATIVE NEGATIVE Ur Tricyclic Antidepressants Screen POSITIVE H NEGATIVE Urine Phencyclidine Screen NEGATIVE NEGATIVE Urine Amphetamines Screen NEGATIVE NEGATIVE Urine Methamphetamines Screen NEGATIVE NEGATIVE Urine Benzodiazepines Screen NEGATIVE NEGATIVE Urine Cocaine Screen NEGATIVE NEGATIVE Urine Cannabinoids Screen NEGATIVE NEGATIVE My Orders Orders - RODRIGO HILL DO Ed Iv/Invasive Line Start (05/26/23 01:45) Ekg Tracing (05/26/23 01:45) O2 (05/26/23 01:45) Monitor-Rhythm Ecg Trace Only (05/26/23 01:45) Chest 1 View, Ap/Pa Only (05/26/23 01:45) Alcohol (05/26/23 01:45) Amylase (05/26/23 01:45) Bnp Bracken (05/26/23 01:45) Cbc With Automated Diff (05/26/23 01:45) Comprehensive Metabolic Panel (05/26/23 01:45) Fibrin Degradation Products (05/26/23 01:45) Drug Screen Stat (Urine) (05/26/23 01:45) Lipase (05/26/23 01:45) Magnesium (05/26/23 01:45) Protime With Inr (05/26/23 01:45) Partial Thromboplastin Time (05/26/23 01:45) Troponin I El (05/26/23 01:45) Nitroglycerin Ointment (Nitrobid Ointme (05/26/23 02:45) Aspirin Chewable Tablet (Baby Aspirin Ch (05/26/23 02:45) Labetalol Injection (Normodyne Injection (05/26/23 03:30) Acetaminophen Tablet (Tylenol Tablet) (05/26/23 03:30) Medications Given in ED Current Medications Medications Dose Ordered Sig/Mikal Route Start Time Stop Time Status Last Admin Dose Admin Acetaminophen 1,000 mg ONCE ONCE PO 05/26/23 03:30 05/26/23 03:31 DC 05/26/23 03:56 1,000 MG Aspirin 324 mg ONCE ONCE PO 05/26/23 02:45 05/26/23 02:46 DC 05/26/23 03:11 324 MG Labetalol HCl 20 mg ONCE ONCE IV 05/26/23 03:30 05/26/23 03:31 DC 05/26/23 04:26 10 MG Nitroglycerin 1 inch ONCE ONCE TOP 05/26/23 02:45 05/26/23 02:46 DC 05/26/23 03:12 1 INCH Vital Signs/I&O 05/26/23 01:43 Temp 36.5 Pulse 110 Resp 28 B/P (MAP) 167/136 (146) Pulse Ox 99 O2 Delivery Room Air Blood Pressure Mean: 146 Progress Progress Note : Progress Note VITALS ON ARRIVAL: TEMP 36.5 = 97.7, HR 110, RR 28, BP 167/136, O2 SAT 97% ON ROOM AIR VITALS AT TIME OF ADMIT: HR 85, RR 22, BP 146/114, O2 SAT 96% ON ROOM AIR. LABS INCLUDING CBC, CMP, D-DIMER, PT/PTT, TROPONIN, BNP ORDERED, IN ADDITION TO EKG AND CXR GIVEN: -ASPIRIN -NITROPASTE -LABETALOL NO DETERIORATION IN PT'S CONDITION DURING ER STAY PERTINENT LAB FINDINGS: CBC-UNREMARKABLE CMP--NORMAL ELECTROLYTES, BUN 18, CR 2.98 TROPONIN NEGATIVE BNP 268 PT/PTT NORMAL, D-DIMER 0.51 ETOH NEGATIVE UDS NEGATIVE FOR ILLICIT DRUGS ( + TRICYCLICS, WHICH PT IS PRESCRIBED ) EKG AND CXR UNREMARKABLE. NO EVIDENCE OF STEMI ON EKG AND TROPONIN IS NEGATIVE NO EVIDENCE OF CHF ON EXAM OR CXR, AND O2 SATS IN THE MID TO UPPER 90'S ON ROOM AIR. DISCUSSED TEST RESULTS, NEED FOR ADMIT AND PT IS AGREEABLE. REVIEWED PRIOR RECORDS, INCLUDING ER VISITS, ADMITS/H&P'S/CONSULTS/DISCHARGE SUMMARIES, TESTS/PROCEDURES Initial ECG Impression Date: May 26, 2023 Initial ECG Impression Time: 01:55 Initial ECG Rate: 106 Initial ECG Rhythm: S.Tach Initial ECG Intervals: Normal Initial ECG Impression: Nonspecific Changes Initial ECG Comparisson: Unchanged Comment INTERPRETED BY ME Diagnostic Imaging Comments CXR-PENDING RADIOLOGIST REVIEW -NO ACUTE PROCESS, CARDIOMEGALY. Reviewed: Reviewed by Me Departure Communication (Admissions) [id number]--SPOKE WITH DR. GARCIA, HOSPITALIST FOR [facility]. ACCEPTS PT FOR ADMIT. WILL CONSULT CARDIOLOGY IN AM Impression Primary Impression: Chest pain Additional Impressions: Dyspnea Uncontrolled hypertension Cardiomyopathy History of anoxic brain injury History of sudden cardiac successfully resuscitated Non-compliance History of methamphetamine use AICD lead displacement Disposition: ADMITTED INPATIENT Condition: Stable Admissions Decision to Admit Reason: Admit from ER (General) Decision to Admit/Date: May 26, 2023 Time/Decision to Admit Time: 02:00 Departure-Patient Inst. Referrals: [facility]OWN [facility]GUY[facility] RETARDER OPERATOR (PCP/Family) Primary Care Physician RODRIGO HILL DO May 26, 2023 02:46
[2023-05-26] MEDS ORDERED: ACETAMINOPHEN 500 MG TAB (TYLENOL) PO ONE (03:30)
[2023-05-26] MEDS ORDERED: LABETALOL HCL 20 MG/4 ML VIAL IV ONE (03:30)
[2023-05-26 04:29] LABS: AMPHETAMINE SCREEN, URINE NEGATIVE (NEGATIVE); BARBITURATE SCREEN URINE NEGATIVE (NEGATIVE); BENZODIAZEPINES SCREEN URINE NEGATIVE (NEGATIVE); CANNABINOID SCREEN, URINE NEGATIVE (NEGATIVE); COCAINE SCREEN URINE NEGATIVE (NEGATIVE); METHADONE STAT NEGATIVE (NEGATIVE); OPIATE SCREEN URINE NEGATIVE (NEGATIVE); OXYCODONE STAT NEGATIVE (NEGATIVE); PROPOXYPHENE STAT NEGATIVE (NEGATIVE); TRICYCLIC ANTIDEPRESSANTS SCRE POSITIVE (NEGATIVE)
[2023-05-26] MEDS ORDERED: ONDANSETRON 4 MG/2 ML (SDV) Z0FRAN IVP PRN (05:45)
[2023-05-26] MEDS ORDERED: cloNIDine 0.1 MG (CATAPRES) TAB PO PRN (05:45)
[2023-05-26] MEDS ORDERED: morphine INJ 4 MG/ML 1 ML (VIAL/SYRINGE) IV PRN (05:45)
--- NOTE | 2023-05-26 05:53 | History & Physical-Hospitalist ---
History of Present Illness HPI/Chief Complaint Chief complaint: Acute exacerbation of CHF HPI: This is a 32-year-old brain injury and illicit drug use who presents the ER with shortness of breath and volume overload patient was found to have exacerbation of CHF. Patient was given IV Lasix and cardiology was consulted. She is doing very well now and will moved to fourth floor. patient is admitted about every week for similar presentation. Source: patient, family, RN/MD, old records Exam Limitations: no limitations Date Seen 05/26/23 Time Seen by a Provider: 11:00 Attending Physician Itzel Fonseca Aprn PCP Admitting Physician: Shawna Gray DO Attending Physician: Shawna Gray DO Referring Physician Date of Admission May 26, 2023 at 04:33 Home Medications & Allergies Home Medications Reviewed patient Home Medication Reconciliation performed by pharmacy medication reconciliations shale processing technician and/or nursing. Patients Allergies have been reviewed. Allergies Allergies Coded Allergies JIA Inhibitors (Verified Allergy, Severe, 05/22/19) ARB-Angiotensin Receptor Antagonist (Verified Allergy, Severe, 05/22/19) amoxicillin (Verified Allergy, Unknown, 05/28/21) baclofen (Unverified Allergy, Unknown, 05/22/19) ON H&P clavulanic acid (Verified Allergy, Unknown, 05/28/21) phenazopyridine (Unverified Allergy, Unknown, 05/22/19) ON H&P Past Avbmanh-Pwhxfh-Xnjxtx Hx Patient Social History Marrital Status: single Employed/Student: unemployed Tobacco Use?: No Smoking Status: Never a Smoker Smokeless Tobacco Frequency: Never a User Use of E-Cig and/or Vaping dev: No Substance use?: Unable to obtain Alcohol Use?: No Pt feels they are or have been: No Immunizations Up To Date Date of Influenza Vaccine: Sep 08, 2022 First/Initial COVID19 Vaccinat: X3 Second COVID19 Vaccination Adair: Pfizer Tetanus Booster (TDap): Unknown Hepatitis A: No Hepatitis B: No PED Vaccines UTD: Yes Date of Pneumonia Vaccine: Sep 09, 2018 Seasonal Allergies Seasonal Allergies: No Current Status status: No Advance Directives: No Advance Directive Location: Home Communicates: Verbally Primary Language: Belgian Preferred Spoken Language: Belgian Is interpretation needed?: No Sensory deficits: Vision impairment Implanted or Applied Medical D: Pacemaker Past Medical History Surgeries: Abdominal, Section, Defibrillator, Gallbladder, Hysterectomy, Pacemaker Pneumonia, Chronic Bronchitis Currently Using CPAP: No Currently Using BIPAP: No Cardiomyopathy, Endocarditis, Hypertension, Valvular Heart Disease Sexually Transmitted Disease: No Renal Failure Gastroesophageal Reflux Loss of Vision: Denies Hearing Impairment: Denies Anxiety, Bipolar, Depression Blood Disorders: Yes (ANEMIA) Family Medical History Patient reports no known family medical history. 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 SHE HAS HAD A DEFIBRILLATOR IN PLACE SINCE AGE 24. Review of Systems Constitutional: see HPI Respiratory: dyspnea on exertion Physical Exam Physical Exam Vital Signs Vital Signs - First Documented 05/26/23 01:43 Temp 36.5 Pulse 110 Resp 28 B/P (MAP) 167/136 (146) Pulse Ox 99 O2 Delivery Room Air Capillary Refill : Less Than 3 Seconds Height, Weight, BMI Height: 5'3.00" Weight: 234lbs. 0oz. 106.936044ug; 40.03 BMI Method:Stated General Appearance: No Apparent Distress, Chronically ill Eyes: Right Eye Normal Inspection, Right Eye PERRL HEENT: PERRL/EOMI, Normal ENT Inspection, Pharynx Normal, Moist Mucous Membranes Neck: Full Range of Motion, Normal Inspection, Non Tender Respiratory: Chest Non Tender, Lungs Clear, Normal Breath Sounds, No Accessory Muscle Use, No Respiratory Distress Cardiovascular: Regular Rate, Rhythm, No Edema, No Gallop, No JVD, No Murmur, Normal Peripheral Pulses Gastrointestinal: Normal Bowel Sounds, No Organomegaly, No Pulsatile Mass, Non Tender, Soft Back: Normal Inspection, No CVA Tenderness, No Vertebral Tenderness Extremity: Normal Capillary Refill, Normal Inspection, Normal Range of Motion, Non Tender, No Calf Tenderness, No Pedal Edema Neurologic/Psychiatric: Alert, Oriented x3, No Motor/Sensory Deficits, Normal Mood/Affect Skin: Normal Color, Warm/Dry Lymphatic: No Adenopathy Results Results/Procedures Labs Laboratory Tests 05/26/23 01:52 Patient resulted labs reviewed. Assessment/Plan Admission Diagnosis Assessment: AECHF Cardiomyopathy HTN CKD SHEEREN hx Pacemaker Head injury hx Plan: IV Lasix Cardiology consult Admission Status: Inpatient Order (span 2 midnights) Reason for Inpatient Admission: CHF SHAWNA GRAY DO May 26, 2023 05:53
[2023-05-26] MEDS ORDERED: MILK OF MAGNESIA 400 MG/5 ML 30 ML UDC PO PRN (06:00)
[2023-05-26] MEDS ORDERED: LACTULOSE SYRUP 10GM/15ML (ENULOSE) 30ML UDC PO PRN (06:00)
[2023-05-26] MEDS ORDERED: CALCIUM CARBONATE 500 MG (TUMS) TAB.CHEW PO PRN (06:00)
[2023-05-26] MEDS ORDERED: polyethylene glycoL POWDER 17 GM (MIRALAX) PACK PO PRN (06:00)
[2023-05-26] MEDS ORDERED: ONDANSETRON 4 MG (ZOFRAN) ORAL DISSOLVE TAB PO PRN (06:00)
[2023-05-26] MEDS ORDERED: ACETAMINOPHEN 325 MG TABLET PO PRN ×2 (06:00)
[2023-05-26] MEDS ORDERED: HYDROmorphone 2 MG/ML VIAL (DILAUDID) IV PRN (06:00)
[2023-05-26] MEDS ORDERED: MELATONIN 3 MG TABLET PO PRN (06:00)
[2023-05-26] MEDS ORDERED: ONDANSETRON 4 MG/2 ML (SDV) Z0FRAN IV PRN (06:00)
[2023-05-26] MEDS ORDERED: ANTACID SUSP 30 ML UDC (MYLANTA) PO PRN (06:00)
[2023-05-26] MEDS ORDERED: BISACODYL 10 MG SUPP (DULCOLAX) PR PRN (06:00)
[2023-05-26] MEDS ORDERED: diphenhydrAMINE 50 MG/ML INJ (BENADRYL) IVP PRN (06:00)
[2023-05-26] MEDS ORDERED: diphenhydrAMINE 25 MG TAB (BENADRYL) PO PRN (06:00)
[2023-05-26] MEDS ORDERED: FUROSEMIDE 40 MG/4 ML INJ (LASIX) ONE (06:14)
[2023-05-26] MEDS: CATHETER FLUSH 10 ML SYR IVP SCH ×3 (06:15→19:40)
[2023-05-26 06:19] LABS: TRIGLYCERIDES 196 MG/DL (<150); VLDL CHOLESTEROL 39 MG/DL (5-40)
[2023-05-26 06:24] LABS: CHOLESTEROL 197 MG/DL (< 200)
[2023-05-26 06:25] LABS: HDL CHOLESTEROL 39 MG/DL (40-60)
[2023-05-26] MEDS ORDERED: RT-ALBUTEROL SULF 2.5 MG/3 ML PRE-MIX VIAL INH PRN (06:45)
[2023-05-26] MEDS ORDERED: FUROSEMIDE 40 MG/4 ML INJ (LASIX) IVP SCH (07:00)
--- NOTE | 2023-05-26 07:49 | Diagnostic Imaging Report ---
INDICATION: Chest pain Frontal chest obtained at 0302 a.m. compared to 05/22/2023. Heart is mildly enlarged. Pacemaker is unchanged. There is no focal infiltrate or pneumothorax or pleural fluid. IMPRESSION: Unchanged pacemaker device with cardiomegaly. No acute abnormality in the chest. Dictated by: Dictated on workstation # [id number]
--- NOTE | 2023-05-26 08:53 | Physical Therapy Evaluation ---
PT Evaluation-General Medical Diagnosis Admission Date May 26, 2023 at 04:33 Medical Diagnosis: chest pain/HTN/cardiomyopathy Onset Date: May 26, 2023 Therapy Diagnosis Therapy Diagnosis: debilitm Height/Weight Height (Feet): 5 Height (Inches): 3.00 Weight (Pounds): 234 Weight (Ounces): 0 Precautions Precautions/Isolations: Fall Prevention, Standard Precautions Referral Physician: Marina Reason for Referral: Evaluation/Treatment Medical History Pertinent Medical History: GERD, HTN, Renal Insufficiency Additional Medical History brain injury from meth use per report Current History ER secondary to CP and SOA Reviewed History: Yes Social History Home: Single Level Current Living Status: Other Family Prior Prior Level of Function SCALE: Activities may be completed with or without assistive devices. 4-Ezjnmjtoyg-kiwkpwi completes the activity by him/herself with no assistance from a helper. 5-Set-up or Clean-up Assistance-helper sets up or cleans up; patient completes activity. [place] assists only prior to or following the activity. 4-Supervision or Touching Assistance-helper provides verbal cues and/or touching/steadying and/or contact guard assistance as patient completes activity. Assistance may be provided throughout the activity or intermittently. 3-Partial/Moderate Assistance-helper does LESS THAN HALF the effort. [place] lifts, holds or supports trunk or limbs, but provides less than half the effort. 2-Substantial/Maximal Assistance-helper does MORE THAN HALF the effort. [place] lifts or holds trunk or limbs and provides more than half the effort. 4-Rlzsyvjal-uusnsc does ALL the effort. Patient does none of the effort to c omplete the activity. Or, the assistance of 2 or more helpers is required for the patient to complete the activity. If activity was not attempted, code reason: 7-Patient Refused. 9-Not Applicable-not attempted and the patient did not perform the activity before the current illness, exacerbation or injury. 10-Not Attempted due to Environmental Limitations-(lack of equipment, weather restraints, etc.). 88-Not Attempted due to Medical Conditions or Safety Concerns. Bed Mobility: 6 Transfers (B,C,W/C): 6 Gait: 6 Stairs: 6 Indoor Mobility (Ambulation): Independent Stairs: Independent Prior Devices Use: None PT Evaluation-Current Subjective Patient denies fall. Agrees to PT. Objective Patient Orientation: Person, Time, Situation ROM/Strength ROM Lower Extremities bilateral LE WFL Strength Lower Extremities 4/5 grossly bilateral LE all planes Integumentary/Posture Bowel Incontinence: No Bladder Incontinence: No Posture WFL Neuromuscular (Tone, Coordination, Reflexes) diminished coordination Sensory Vision: Functional Hearing: Functional Transfers Lying to Sitting/Side of Bed(Q: 6 Sit to Stand (QC): 4 Chair/Qsj-gh-Kcvax Xfer(QC): 4 Toilet Transfer (QC): 4 Gait Mode of Locomotion: Walk Anticipated Mode of Locomotion: Walk Walk 10 feet (QC): 4 Walk 50 ft with 2 Turns(QC): 4 Walk 150 ft (QC): 4 Distance: 225' Gait Assistive Device: FWW Comments/Gait Description improved gait sequence with FWW use Balance Sitting Static: Normal Sitting Dynamic: Normal Standing Static: Fair Standing Dynamic: Fair Assessment/Needs Patient would benefit from FWW for home use which improves her mobility. Patient will be seen short term by skilled PT to address functional mobility to ensure safe return to home with family at maximum LOF. Rehab Potential: Fair PT [employer] Goals Residential Goals PT Residential Goals Time Frame: Jun 04, 2023 Roll Left & Right (QC): 6 Sit to Lying (QC): 6 Lying-Sitting on Side/Bed(QC): 6 Sit to Stand (QC): 6 Chair/Byv-da-Uuutk Xfer(QC): 6 Toilet Transfer (QC): 6 Walk 10 feet (QC): 5 Walk 50ft with 2 Turns (QC): 5 Walk 150 ft (QC): 5 PT Plan Problem List Problem List: Activity Tolerance, Functional Strength, Safety, Balance, Gait, Transfer Treatment/Plan Treatment Plan: Continue Plan of Care Treatment Plan: Education, Functional Activity Lynn, Functional Strength, Gait, Safety, Therapeutic Exercise, Transfers Treatment Duration: Jun 04, 2023 Frequency: 5 times per week Estimated Hrs Per Day: .25 hour per day Patient and/or Family Agrees t: Yes Time Time In: 821 Time Out: 830 DATE: May 26, 2023 Total Billed Treatment Time: 9 Total Billed Treatment 1 visit EVModC 9 min MICHELE LANZA PT May 26, 2023 08:53
[2023-05-26] MEDS: SACUBITRIL/VALSARTAN 24/26 MG (ENTRESTO) TABLET PO SCH ×2 (08:56→19:39)
[2023-05-26] MEDS: SENNOSIDES 8.6 MG (SENOKOT) TAB PO SCH ×2 (08:56→19:39)
[2023-05-26] MEDS: FAMOTIDINE 20 MG (PEPCID) TABLET PO SCH (08:56)
[2023-05-26] MEDS: ASPIRIN E.C. 81 MG (ECOTRIN) TAB PO SCH (08:56)
[2023-05-26] MEDS: DOCUSATE SODIUM 100 MG (COLACE) CAP PO SCH ×2 (08:56→19:39)
[2023-05-26] MEDS: APIXABAN 5 MG (ELIQUIS) TABLET PO SCH ×2 (08:56→19:41)
[2023-05-26] MEDS ORDERED: ASPIRIN E.C. 81 MG (ECOTRIN) TAB PO SCH (09:00)
[2023-05-26] MEDS ORDERED: NITROGLYCERIN 2% OINT 1 GM UNIT DOSE PACKET TOP SCH (09:00)
[2023-05-26] MEDS ORDERED: amLODIPine 10 MG (NORVASC) TAB PO SCH (09:00)
[2023-05-26] MEDS ORDERED: meTOprolol TARTRATE 50 MG (LOPRESSOR) TAB PO SCH (09:00)
--- NOTE | 2023-05-26 13:03 | Consultation-Cardiology ---
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 She is also complaining of dyspnea on exertion. Orthopnea present. Overall, the patient is a poor historian. Chest x-ray unremarkable but BNP elevated. EKG is nonischemic and serial troponins are undetectable. Cardiac history as described above. 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 Past history of intracardiac thrombus, on long-term anticoagulation with apixaban and no evidence of intracardiac thrombus on PATSY 05/18/2023. History of methamphetamine abuse in the past, last positive urine drug screen in November 2022. Urine drug screen this admission is positive only for tricyclic's. Does have a history of noncompliance with medications. She had an ER visit on 05/22/2023 for chest pain that appeared to have been musculoskeletal IMAGING: EKG 05/26/2023 self reviewed. Mild sinus tachycardia. Voltage criteria for left ventricular hypertrophy. Chest x-ray 05/26/2023 self reviewed. Cardiomegaly. Permanent pacemaker/ICD in place with abandoned ventricular lead. Clear lung castellanos Transesophageal echo 05/18/2023 self reviewed. Severely reduced left ventricular ejection fraction. No atrial or ventricular thrombus noted. Significant mitral regurgitation noted. Significant ventricular noncompaction as per my assessment. Pacemaker/ICD leads noted Transthoracic echo February 2023. Left ventricular ejection fraction 40 to 45% Labs reviewed Serum creatinine 2.98 BNP 268 Troponins undetectable x 2 Lipid profile. Triglycerides 196, LDL 143, HDL 39 Urine drug screen 05/26/2023 unremarkable except for tricyclic's Urine drug screen November 2022 positive for methamphetamines Serum alcohol level undetectable Review of Systems-Cardiology All Other Systems Reviewed Negative Unless Noted: Yes [id number] Hx Patient Social History Smoking Status: Never a Smoker Former smoker/When Quit: Jan 23, 2015 2nd Hand Smoke Exposure: No Alcohol Use?: No Pt feels they are or have been: No Immunizations Up To Date Tetanus Booster (TDap): Unknown Date of Pneumonia Vaccine: Sep 09, 2018 Date of Influenza Vaccine: Sep 08, 2022 Past Medical History PMH As described under Assessment. Family Medical History Family Medical History: She does not report fam h/o premature CAD or SCD Family History: Patient reports no known family medical history. Allergies and Home Medications Allergies Coded Allergies: JIA Inhibitors (Verified Allergy, Severe, 05/22/19) ARB-Angiotensin Receptor Antagonist (Verified Allergy, Severe, 05/22/19) amoxicillin (Verified Allergy, Unknown, 05/28/21) baclofen (Unverified Allergy, Unknown, 05/22/19) ON H&P clavulanic acid (Verified Allergy, Unknown, 05/28/21) phenazopyridine (Unverified Allergy, Unknown, 05/22/19) ON H&P Patient Home Medication List Home Medication List Reviewed: Yes Acetaminophen (Tylenol) 325 Mg Tablet, 650 MG PO Q6H PRN for PAIN-MILD (1-4), (Reported) Entered as Reported by: VEL BAILEY on 05/18/23844 Last Action: Continued Amlodipine Besylate (Amlodipine Besylate) 10 Mg Tablet, 10 MG PO DAILY, (Reported) Entered as Reported by: VEL BAILEY on 05/18/23844 Last Action: Continued Apixaban (Eliquis) 5 Mg Tablet, 5 MG PO BID, (Reported) Entered as Reported by: VEL BAILEY on 05/18/23844 Last Action: Continued Aspirin (Aspirin EC) 81 Mg Tablet.dr, 81 MG PO DAILY, (Reported) Entered as Reported by: VEL BAILEY on 05/18/23844 Last Action: Continued Biotin (Biotin) 10,000 Mcg Capsule, 10,000 MCG PO BID, (Reported) Entered as Reported by: VEL BAILEY on 05/18/23844 Last Action: Converted Famotidine (Acid Land Planner (FAMOTIDINE)) 20 Mg Tablet, 20 MG PO DAILY, (Reported) Entered as Reported by: VEL BAILEY on 05/18/23844 Last Action: Continued Furosemide (Furosemide) 40 Mg Tablet, 40 MG PO BID, (Reported) Entered as Reported by: VEL BAILEY on 05/18/23844 Last Action: Held Metoprolol Tartrate (Metoprolol Tartrate) 50 Mg Tablet, 50 MG PO BID, (Reported) Entered as Reported by: VEL BAILEY on 05/18/23844 Last Action: Continued Ropinirole HCl (Ropinirole HCl) 0.5 Mg Tablet, 0.5 MG PO HS, (Reported) Entered as Reported by: VEL BAILEY on 05/18/23844 Last Action: Converted Sacubitril/Valsartan (Entresto 24 mg-26 mg Tablet) 24 Mg-26 Mg Tablet, 1 TAB PO BID, (Reported) Entered as Reported by: VEL BAILEY on 05/18/23844 Last Action: Continued Exam Vital Signs Vital Signs Date Time Temp Pulse Resp B/P (MAP) Pulse Ox O2 Delivery O2 Flow Rate FiO2 05/26/23 13:41 36.4 73 18 105/58 (74) 95 Room Air Physical Exam Awake and alert. Appears comfortable. Morbidly obese Chest clear to auscultation S1 and S2 regular. I could not appreciate any murmur on examination No jugular venous distention Trace lower extremity edema Neuro exam nonfocal Labs Laboratory Tests Test 05/26/23 01:52 05/26/23 04:08 05/26/23 05:15 Range/Units White Blood Count 8.3 4.3-11.0 10^3/uL Red Blood Count 4.83 3.80-5.11 10^6/uL Hemoglobin 13.8 11.5-16.0 g/dL Hematocrit 43 35-52 % Mean Corpuscular Volume 89 80-99 fL Mean Corpuscular Hemoglobin 29 25-34 pg Mean Corpuscular Hemoglobin Concent 32 32-36 g/dL Red Cell Distribution Width 15.2 H 10.0-14.5 % Platelet Count 389 130-400 10^3/uL Mean Platelet Volume 8.7 L 9.0-12.2 fL Immature Granulocyte % (Auto) 0 % Neutrophils (%) (Auto) 37 L 42-75 % Lymphocytes (%) (Auto) 53 H 12-44 % Monocytes (%) (Auto) 8 0-12 % Eosinophils (%) (Auto) 2 0-10 % Basophils (%) (Auto) 1 0-10 % Neutrophils # (Auto) 3.0 1.8-7.8 10^3/uL Lymphocytes # (Auto) 4.4 H 1.0-4.0 10^3/uL Monocytes # (Auto) 0.7 0.0-1.0 10^3/uL Eosinophils # (Auto) 0.2 0.0-0.3 10^3/uL Basophils # (Auto) 0.1 0.0-0.1 10^3/uL Immature Granulocyte # (Auto) 0.0 0.0-0.1 10^3/uL Prothrombin Time 12.1 L 12.2-14.7 SEC INR Comment 0.9 0.8-1.4 Activated Partial Thromboplast Time 29 24-35 SEC D-Dimer 0.51 H 0.00-0.49 UG/ML Sodium Level 140 135-145 MMOL/L Potassium Level 3.8 3.6-5.0 MMOL/L Chloride Level 107 98-107 MMOL/L Carbon Dioxide Level 23 21-32 MMOL/L Anion Gap 10 5-14 MMOL/L Blood Urea Nitrogen 18 7-18 MG/DL Creatinine 2.98 H 0.60-1.30 MG/DL Estimat Glomerular Filtration Rate 20 BUN/Creatinine Ratio 6 Glucose Level 91 70-105 MG/DL Calcium Level 8.4 L 8.5-10.1 MG/DL Corrected Calcium 8.6 8.5-10.1 MG/DL Magnesium Level 2.2 1.6-2.4 MG/DL Total Bilirubin 0.2 0.1-1.0 MG/DL Aspartate Amino Transf (AST/SGOT) 16 5-34 U/L Alanine Aminotransferase (ALT/SGPT) 16 0-55 U/L Alkaline Phosphatase 84 40-136 U/L Troponin I < 0.028 < 0.028 <0.028 NG/ML B-Type Natriuretic Peptide 268.5 H <100.0 PG/ML Total Protein 6.7 6.4-8.2 GM/DL Albumin 3.7 3.2-4.5 GM/DL Amylase Level 119 25-125 U/L Lipase 40 8-78 U/L Serum Alcohol < 10 <10 MG/DL Urine Opiates Screen NEGATIVE NEGATIVE Urine Oxycodone Screen NEGATIVE NEGATIVE Urine Methadone Screen NEGATIVE NEGATIVE Urine Propoxyphene Screen NEGATIVE NEGATIVE Urine Barbiturates Screen NEGATIVE NEGATIVE Ur Tricyclic Antidepressants Screen POSITIVE H NEGATIVE Urine Phencyclidine Screen NEGATIVE NEGATIVE Urine Amphetamines Screen NEGATIVE NEGATIVE Urine Methamphetamines Screen NEGATIVE NEGATIVE Urine Benzodiazepines Screen NEGATIVE NEGATIVE Urine Cocaine Screen NEGATIVE NEGATIVE Urine Cannabinoids Screen NEGATIVE NEGATIVE Triglycerides Level 196 H <150 MG/DL Cholesterol Level 197 < 200 MG/DL LDL Cholesterol Direct 143 H 1-129 MG/DL VLDL Cholesterol 39 5-40 MG/DL HDL Cholesterol 39 L 40-60 MG/DL ECG Impression ECG Initial ECG Impression Date: May 26, 2023 A/P-Cardiology Assessment/Admission Diagnosis CP/chest pressure. With orthopnea. BNP elevated. Clinical picture consistent with mild heart failure exacerbation. Troponins x 2 undetectable. Hx of nonischemic congestive heart failure, left ventricular systolic dysfunction. Transesophageal echo December 18, 2022 shows severely reduced left ventricular ejection fraction and mitral regurgitation, at least moderate. Plan IV diuretics. No ischemic work-up indicated History of nonischemic cardiomyopathy. We will optimize heart failure medications. Continue valsartan/sacubitril. Change metoprolol tartrate to metoprolol succinate. Discontinue amlodipine due to borderline low blood pressures. We will add spironolactone if tolerated History of bradycardia, status post ICD implantation and repositioning done on August 24, 2015. Patient underwent another ICD revision with new pace/sense lead replacement, pocket revision, done by Dr. Castanon on May 10, 2019. Had another repositioning of the lead then had replacement of the lead. Currently there is a question of lead malfunctioning again. Patient has an appointment at for ICD versus lead replacement. Details not known. Continue telemetry monitoring Hypertension. Controlled History of mid left atrial thrombus on 2-D echo report. She is maintained on apixaban. No evidence of intracardiac thrombus on transesophageal echo December 18, 2022. History of tricuspid valve vegetation per 2-D echocardiogram in January 2015 Anoxic encephalopathy Status post remote cardiopulmonary arrest History of illicit drug use, denies any recent drug use ORLANDO NEWMAN MD May 26, 2023 13:03
[2023-05-26] MEDS: NON-FORMULARY MEDICATION 1 EA EA (Biotin 10,000 MCG) PO SCH ×2 (16:44→21:49)
[2023-05-26] MEDS: FUROSEMIDE 40 MG/4 ML INJ (LASIX) IVP SCH (16:59)
[2023-05-26] MEDS: meTOproloL SUCCINATE 50 MG (TOPROL XL) TAB PO SCH (19:42)
[2023-05-26] MEDS ORDERED: rOPINIRole 1 MG (REQUIP) TABLET PO SCH (21:00)
[2023-05-26] MEDS ORDERED: AMITRIPTYLINE 150 MG (ELAVIL) TABLET PO SCH (21:00)
[2023-05-27 04:00] VITALS: BP 126/76
[2023-05-27 05:35] LABS: BASOPHILS # (AUTO) 0.1 10^3/uL (0.0-0.1); BASOPHILS % (AUTO) 1 % (0-10); EOSINOPHILS # (AUTO) 0.2 10^3/uL (0.0-0.3); EOSINOPHILS % (AUTO) 3 % (0-10); HEMATOCRIT 39 % (35-52); HEMOGLOBIN 12.7 g/dL (11.5-16.0); LYMPHOCYTES % (AUTO) 45 % (12-44); MEAN CORPUSCULAR HEMOGLOBIN 29 pg (25-34); MEAN CORPUSCULAR HGB CONC 32 g/dL (32-36); MEAN CORPUSCULAR VOLUME 89 fL (80-99); MEAN PLATELET VOLUME 8.7 fL (9.0-12.2); MONOCYTES # (AUTO) 0.5 10^3/uL (0.0-1.0); MONOCYTES % (AUTO) 7 % (0-12); NEUTROPHILS # (AUTO) 2.9 10^3/uL (1.8-7.8); NEUTROPHILS % (AUTO) 44 % (42-75); PLATELET COUNT 352 10^3/uL (130-400); WHITE BLOOD COUNT 6.6 10^3/uL (4.3-11.0)
[2023-05-27 05:53] LABS: ALBUMIN 3.1 GM/DL (3.2-4.5)
[2023-05-27 05:54] LABS: POTASSIUM 3.8 MMOL/L (3.6-5.0)
[2023-05-27 05:55] LABS: CALCIUM 7.8 MG/DL (8.5-10.1)
[2023-05-27 05:56] LABS: TOTAL PROTEIN 5.7 GM/DL (6.4-8.2)
[2023-05-27 05:58] LABS: BILIRUBIN,TOTAL 0.2 MG/DL (0.1-1.0)
[2023-05-27 06:00] LABS: CREATININE SERUM 2.54 MG/DL (0.60-1.30)
[2023-05-27] MEDS: CATHETER FLUSH 10 ML SYR IVP SCH ×2 (06:22→14:29)
[2023-05-27] MEDS: FUROSEMIDE 40 MG/4 ML INJ (LASIX) IVP SCH (06:22)
[2023-05-27 07:22] VITALS: BP 111/70
[2023-05-27] MEDS: SACUBITRIL/VALSARTAN 24/26 MG (ENTRESTO) TABLET PO SCH (08:02)
[2023-05-27] MEDS: meTOproloL SUCCINATE 50 MG (TOPROL XL) TAB PO SCH (08:03)
[2023-05-27] MEDS: DOCUSATE SODIUM 100 MG (COLACE) CAP PO SCH (08:03)
[2023-05-27] MEDS: ASPIRIN E.C. 81 MG (ECOTRIN) TAB PO SCH (08:03)
[2023-05-27] MEDS: FAMOTIDINE 20 MG (PEPCID) TABLET PO SCH (08:03)
[2023-05-27] MEDS: APIXABAN 5 MG (ELIQUIS) TABLET PO SCH (08:03)
[2023-05-27] MEDS: SENNOSIDES 8.6 MG (SENOKOT) TAB PO SCH (08:03)
[2023-05-27] MEDS: NON-FORMULARY MEDICATION 1 EA EA (Biotin 10,000 MCG) PO SCH (08:06)
--- NOTE | 2023-05-27 10:31 | Progress Note - Hospitalist ---
Subjective HPI/CC On Admission Date Seen by Provider: May 27, 2023 Chief complaint: Acute exacerbation of CHF HPI: This is a 32-year-old brain injury and illicit drug use who presents the ER with shortness of breath and volume overload patient was found to have exacerbation of CHF. Patient was given IV Lasix and cardiology was consulted. She is doing very well now and will moved to fourth floor. patient is admitted about every week for similar presentation. Objective Exam Vital Signs Vital Signs Date Time Temp Pulse Resp B/P (MAP) Pulse Ox O2 Delivery O2 Flow Rate FiO2 05/27/23 12:49 83 05/27/23 12:01 36.3 16 118/66 (83) 98 Room Air 05/27/23 07:24 0.00 Capillary Refill : Less Than 3 Seconds Results/Procedures Lab Laboratory Tests 05/27/23 05:20 Patient resulted labs reviewed. MEGGAN GARCIA DO May 27, 2023 10:31
--- NOTE | 2023-05-27 10:49 | Physical Therapy Progress Note ---
Therapy Progress Note Patient refused therapy wanting to sleep. Patient is to dismiss to home on this date per SW. 1 ref MICHELE LANZA PT May 27, 2023 10:49
[2023-05-27 12:01] VITALS: BP 118/66
[2023-05-27 14:40] VITALS: BP 118/66
--- NOTE | 2023-05-27 14:42 | Cardiology Progress Note ---
Subjective Time Seen by Provider: 13:30 Subjective/Events-last exam Patient comfortable. Denies chest pain or shortness of breath today. The patient is a pleasant 32-year-old -[place] lady with a past medical history of nonischemic cardiomyopathy, last left ventricular ejection fraction on transesophageal echo on 05/18/2023 reported at 20%, with at least moderate mitral regurgitation, history of cardiopulmonary arrest thought to be secondary to methamphetamine abuse in the past following which an ICD was placed, with history of lead revision, and current lead malfunction, patient scheduled for lead revision in May 2023 at , presented to the hospital with chest pressure. She was also complaining of dyspnea on exertion and orthopnea. Picture consistent with mild CHF exacerbation which has resolved with a brief course of IV diuretics. Overall, the patient is a poor historian. Chest x-ray unremarkable but BNP elevated. EKG was nonischemic and serial troponins undetectable. 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 No obstructive coronary artery disease on cardiac catheterization in 2014. On 07/23/2015 dual-chamber ICD implantation. In July 2015 she underwent ICD lead repositioning and pacemaker pocket revision at [facility]. In 2018 ICD lead malfunction was reported. Subsequently, on 05/10/2019 and new RV lead was placed.. Left ventricular ejection fraction reported at 30 to 35% in March 2020 on echocardiography. In October 2021 left ventricle ejection fraction again reported at 30 to 35%. In November 2022 there was concern for RV lead malfunction. Subsequently, in January 2023 on [facility] express device interrogation high lead impedance was again noted. Past history of intracardiac thrombus, on long-term anticoagulation with apixaban and no evidence of intracardiac thrombus on PATSY 05/18/2023. History of methamphetamine abuse in the past, last positive urine drug screen in November 2022. Urine drug screen this admission is positive only for tricyclic's. Does have a history of noncompliance with medications. She had an ER visit on 05/22/2023 for chest pain that appeared to have been musculoskeletal IMAGING: EKG 05/26/2023 self reviewed. Mild sinus tachycardia. Voltage criteria for left ventricular hypertrophy. Chest x-ray 05/26/2023 self reviewed. Cardiomegaly. Permanent pacemaker/ICD in place with abandoned ventricular lead. Clear lung castellanos Transesophageal echo 05/18/2023 self reviewed. Severely reduced left ventricular ejection fraction. No atrial or ventricular thrombus noted. Significant mitral regurgitation noted. Significant ventricular noncompaction as per my assessment. Pacemaker/ICD leads noted Transthoracic echo February 2023. Left ventricular ejection fraction 40 to 45% Labs reviewed Serum creatinine 2.98 BNP 268 Troponins undetectable x 2 Lipid profile. Triglycerides 196, LDL 143, HDL 39 Urine drug screen 05/26/2023 unremarkable except for tricyclic's Urine drug screen November 2022 positive for methamphetamines Serum alcohol level undetectable Review of Systems As mentioned in history of present illness Exam Vital Signs Vital Signs Date Time Temp Pulse Resp B/P (MAP) Pulse Ox O2 Delivery O2 Flow Rate FiO2 05/27/23 12:49 83 05/27/23 12:01 36.3 16 118/66 (83) 98 Room Air 05/27/23 07:24 0.00 Physical Exam Patient comfortable S1 and S2 regular No jugular venous distention No lower extremity edema Chest clear to auscultation Labs Laboratory Tests Test 05/27/23 05:20 Range/Units White Blood Count 6.6 4.3-11.0 10^3/uL Red Blood Count 4.44 3.80-5.11 10^6/uL Hemoglobin 12.7 11.5-16.0 g/dL Hematocrit 39 35-52 % Mean Corpuscular Volume 89 80-99 fL Mean Corpuscular Hemoglobin 29 25-34 pg Mean Corpuscular Hemoglobin Concent 32 32-36 g/dL Red Cell Distribution Width 15.4 H 10.0-14.5 % Platelet Count 352 130-400 10^3/uL Mean Platelet Volume 8.7 L 9.0-12.2 fL Immature Granulocyte % (Auto) 0 % Neutrophils (%) (Auto) 44 42-75 % Lymphocytes (%) (Auto) 45 H 12-44 % Monocytes (%) (Auto) 7 0-12 % Eosinophils (%) (Auto) 3 0-10 % Basophils (%) (Auto) 1 0-10 % Neutrophils # (Auto) 2.9 1.8-7.8 10^3/uL Lymphocytes # (Auto) 3.0 1.0-4.0 10^3/uL Monocytes # (Auto) 0.5 0.0-1.0 10^3/uL Eosinophils # (Auto) 0.2 0.0-0.3 10^3/uL Basophils # (Auto) 0.1 0.0-0.1 10^3/uL Immature Granulocyte # (Auto) 0.0 0.0-0.1 10^3/uL Sodium Level 140 135-145 MMOL/L Potassium Level 3.8 3.6-5.0 MMOL/L Chloride Level 108 H 98-107 MMOL/L Carbon Dioxide Level 22 21-32 MMOL/L Anion Gap 10 5-14 MMOL/L Blood Urea Nitrogen 17 7-18 MG/DL Creatinine 2.54 #H 0.60-1.30 MG/DL Estimat Glomerular Filtration Rate 25 BUN/Creatinine Ratio 7 Glucose Level 99 70-105 MG/DL Calcium Level 7.8 L 8.5-10.1 MG/DL Corrected Calcium 8.5 8.5-10.1 MG/DL Total Bilirubin 0.2 0.1-1.0 MG/DL Aspartate Amino Transf (AST/SGOT) 13 5-34 U/L Alanine Aminotransferase (ALT/SGPT) 13 0-55 U/L Alkaline Phosphatase 69 40-136 U/L Total Protein 5.7 L 6.4-8.2 GM/DL Albumin 3.1 L 3.2-4.5 GM/DL A/P-Cardiology Admission Diagnosis CP/chest pressure and orthopnea resolved. Clinical picture consistent with mild heart failure exacerbation upon admission. Troponins x 2 undetectable. Hx of nonischemic congestive heart failure, left ventricular systolic dysfunction. Transesophageal echo December 18, 2022 shows severely reduced left ventricular ejection fraction and mitral regurgitation, at least moderate. Discontinue IV diuretics and resume oral diuretics. No ischemic work-up indicated History of nonischemic cardiomyopathy. We will optimize heart failure medications. Continue valsartan/sacubitril. Change metoprolol tartrate to metoprolol succinate. Discontinue amlodipine due to borderline low blood pressures. We will add spironolactone if tolerated History of bradycardia, status post ICD implantation and repositioning done on August 24, 2015. Patient underwent another ICD revision with new pace/sense lead replacement, pocket revision, done by Dr. Castanon on May 10, 2019. Had another repositioning of the lead then had replacement of the lead. Currently there is evidence of RV lead malfunction. I had a conversation with Dr. Devries, EP, who has seen her in the past. He kindly went into the [facility] records from her last visit in February 2023. The plan is to perform extraction of the ICD lead placed in 2014, also extract her RV pacing and sensing lead placed in 2018, and reimplant a single coil RV ICD lead. Efforts will be made to preserve her current RA lead. Hypertension. Controlled History of mid left atrial thrombus on 2-D echo report. She is maintained on apixaban. No evidence of intracardiac thrombus on transesophageal echo December 18, 2022. History of tricuspid valve vegetation per 2-D echocardiogram in January 2015 Anoxic encephalopathy Status post remote cardiopulmonary arrest History of illicit drug use, denies any recent drug use Okay for discharge home from cardiology standpoint ORLANDO NEWMAN MD May 27, 2023 14:42
--- NOTE | 2023-05-27 14:57 | Occ Therapy Progress Note ---
Therapy Progress Note OT attempted evaluation of patient, two visitors n room. Patient refused to open eyes and refused therapy. will reattempt next available opportunity CHARLEEN AYALA OT May 27, 2023 14:57
[2023-05-27] MEDS ORDERED: FUROSEMIDE 40 MG (LASIX) TAB PO SCH (17:00)
[2023-05-28] MEDS ORDERED: TORSEMIDE 10 MG (DEMADEX) TABLET PO SCH (09:00)
== END 2023-05-27 15:40 | disposition home or self-care (01) | DRG 291 ==
LOC: EDUNIT# 01:37 → ER 01:39 → CSD 04:33 → 4TH 13:29
PROVIDERS: ADMIT Internal Medicine; ATTEND Internal Medicine
DX: I13.0 Hypertensive heart and chronic kidney disease with heart failure and stage 1 through stage 4 chronic kidney disease, or unspecified chronic kidney disease (principal); I50.23 Acute on chronic systolic (congestive) heart failure; N18.9 Chronic kidney disease, unspecified; Z79.82 Long term (current) use of aspirin; Z79.899 Other long term (current) drug therapy; Z95.810 Presence of automatic (implantable) cardiac defibrillator; E78.00 Pure hypercholesterolemia, unspecified; K21.9 Gastro-esophageal reflux disease without esophagitis; E66.9 Obesity, unspecified; F41.9 Anxiety disorder, unspecified; F31.9 Bipolar disorder, unspecified; I42.8 Other cardiomyopathies
CPT/HCPCS: 36415; 71045; 80053; 80061; 80306; 80320; 82150; 83690; 83735; 83880; 84484; 85025; 85379; 85610; 85730; 93005; 93041; 94760

== ENCOUNTER 2023-05-29 23:22 | Emergency (ER) | payer MEDICARE, MEDICAID ==
[~2023-05-29] VITALS: Ht 160 cm; Wt 102.5 kg
[2023-05-29 23:39] VITALS: BP 163/83
--- NOTE | 2023-05-29 23:52 | ED General ---
General Chief Complaint: General Problems/Pain Stated Complaint: BLOOD PRESSURE 156/133 Nursing Triage Note: Pt presents with c/o high blood pressure. Pt went to [facility] walk in clinic earlier today for a yeast infection. While she was there they told her that her b/p was high and she needed to come get checked out. Pt states she did not come earlier because she forgot. Pt denies any cardiac complaint at this time. Source of Information: Patient Exam Limitations: No Limitations History of Present Illness Date Seen by Provider: May 29, 2023 Time Seen by Provider: 23:52 Initial Comments 72-year-old woman presents to the emergency room via EMS with concerns about high blood pressure. She has been asymptomatic except for slight headache. She was at the [facility] clinic earlier and was treated for yeast infection. She reports being compliant with her usual medications. She took a PRN clonidine at around 1600. She had been instructed by the [facility] clinic to come to the emergency room earlier but forgot. She is noted to have hypertension on evaluation in the ER. She denies use of any stimulants or other ingestions that may have exacerbated hypertension. Review of patient chart reveals that she had been on a clonidine patch previously. She reports discontinuing the patch because it caused nightmares. Allergies and Home Medications Allergies Coded Allergies: JIA Inhibitors (Verified Allergy, Severe, 05/22/19) ARB-Angiotensin Receptor Antagonist (Verified Allergy, Severe, 05/22/19) amoxicillin (Verified Allergy, Unknown, 05/28/21) baclofen (Unverified Allergy, Unknown, 05/22/19) ON H&P clavulanic acid (Verified Allergy, Unknown, 05/28/21) phenazopyridine (Unverified Allergy, Unknown, 05/22/19) ON H&P Patient Home Medication List Home Medication List Reviewed: Yes Acetaminophen (Tylenol) 325 Mg Tablet, 650 MG PO Q6H PRN for PAIN-MILD (1-4), (Reported) Entered as Reported by: VEL BAILEY on 05/18/2345 Amlodipine Besylate (Amlodipine Besylate) 10 Mg Tablet, 10 MG PO DAILY, (Reported) Entered as Reported by: VEL BAILEY on 05/18/2345 Apixaban (Eliquis) 5 Mg Tablet, 5 MG PO BID, (Reported) Entered as Reported by: VEL BAILEY on 05/18/2345 Aspirin (Aspirin EC) 81 Mg Tablet.dr, 81 MG PO DAILY, (Reported) Entered as Reported by: VEL BAILEY on 05/18/23844 Biotin (Biotin) 10,000 Mcg Capsule, 10,000 MCG PO BID, (Reported) Entered as Reported by: VEL BAILEY on 05/18/23844 Famotidine (Acid Sign Builder (FAMOTIDINE)) 20 Mg Tablet, 20 MG PO DAILY, (Reported) Entered as Reported by: VEL BAILEY on 05/18/23844 Furosemide (Furosemide) 40 Mg Tablet, 40 MG PO BID, (Reported) Entered as Reported by: VEL BAILEY on 05/18/23844 Metoprolol Tartrate (Metoprolol Tartrate) 50 Mg Tablet, 50 MG PO BID, (Reported) Entered as Reported by: VEL BAILEY on 05/18/23844 Ropinirole HCl (Ropinirole HCl) 0.5 Mg Tablet, 0.5 MG PO HS, (Reported) Entered as Reported by: VEL BAILEY on 05/18/23844 Sacubitril/Valsartan (Entresto 24 mg-26 mg Tablet) 24 Mg-26 Mg Tablet, 1 TAB PO BID, (Reported) Entered as Reported by: VEL BAILEY on 05/18/23844 Review of Systems Review of Systems Constitutional: no symptoms reported EENTM: no symptoms reported Respiratory: no symptoms reported Cardiovascular: see HPI Gastrointestinal: no symptoms reported Psychiatric/Neurological: See HPI Hematologic/Lymphatic: No Symptoms Reported Past Zhqjnrn-Mbhokg-Audbce Hx Immunizations Up To Date Tetanus Booster (TDap): Unknown PED Vaccines UTD: Yes First/Initial COVID19 Vaccinat: X3 Second COVID19 Vaccination Adair: Pfizer Third COVID19 Vaccination Date: [employer] Seasonal Allergies Seasonal Allergies: No Past Medical History Surgery/Hospitalization HX: DEFIBRILLATOR, PACEMAKER REMOVED, HEART FAILURE, HTN, HIGH CHOLESTEROL Surgeries: Yes (PACER/DEFIB 2014; DEFIB PLACED 05/10/19. PEG TUBE- REMOVED;UTERINE ABLATION) Abdominal, Section, Defibrillator, Gallbladder, Hysterectomy, Pacemaker Respiratory: Yes (ARDS-CODED; PNEUMOTHORAX 06/2015) Pneumonia, Chronic Bronchitis Currently Using CPAP: No Currently Using BIPAP: No Cardiac: Yes (PULMONARY EDEMA/CARDIAC CAUSE-R/T ATRIAL THROMBUS; CARDIAC ARREST;V-FIB ) Cardiomyopathy, Endocarditis, Hypertension, Valvular Heart Disease Neurological: Yes (encephalopathy-hypoxia, anoxic brain injury; POOR MEMORY; SLURRED SPEECH) Reproductive Disorders: Yes (ENDOMETRIAL ABLATION) Female Reproductive Disorders: Menstrual Problems Sexually Transmitted Disease: No Genitourinary: Yes (BASELINE CREATININE BETWEEN 2 & 3) Renal Failure Gastrointestinal: Yes Gastroesophageal Reflux Musculoskeletal: Yes (GAIT DISTURBANCE) Endocrine: No (OBESITY) HEENT: No Loss of Vision: Denies Hearing Impairment: Denies Cancer: No Psychosocial: Yes (SUBSTANCE ABUSE) Anxiety, Bipolar, Depression Integumentary: No Blood Disorders: Yes (ANEMIA) Family Medical History Patient reports no known family medical history. 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 SHE HAS HAD A DEFIBRILLATOR IN PLACE SINCE AGE 24. T.E.E. 05/18/[address] FORTUNE: -SEVERE DIFFUSE HYPOKINESIA OF LEFT VENTRICLE -4 CHAMBER DILATION -EF 20% -NO CLOTS/THROMBUS -NO VEGETATIONS -MODERATE MITRAL REGURGITATION. Physical Exam Vital Signs Vital Signs - First Documented 05/29/23 23:39 Temp 37.0 Pulse 97 Resp 16 B/P (MAP) 163/83 (109) Capillary Refill : Less Than 3 Seconds Height, Weight, BMI Height: 5'3.00" Weight: 234lbs. 0oz. [id number]; 40.00 BMI Method:Stated General Appearance: No Apparent Distress, WD/WN, Obese HEENT: Normal ENT Inspection Respiratory: Normal Breath Sounds, No Respiratory Distress Cardiovascular: Regular Rate, Rhythm, No Edema Neurologic/Psychiatric: Alert, Oriented x3, Other (Cognitive deficits related to prior brain injury, stable and unchanged based on my prior interactions with the patient) Skin: Normal Color, Warm/Dry Progress/Results/Core Measures Suspected Sepsis SIRS Temperature: Pulse: 97 Respiratory Rate: 16 Blood Pressure 163 /83 Mean: 109 Results/Orders Vital Signs/I&O 05/29/23 23:39 Temp 37.0 Pulse 97 Resp 16 B/P (MAP) 163/83 (109) Capillary Refill : Less Than 3 Seconds Blood Pressure Mean: 109 Progress Note : Progress Note Blood pressure was not critically elevated at the time of my evaluation. The last blood pressure checked during evaluation was 148/110. Patient has clonidine at home that she can take. Parameters to follow were given as is a general guidelines in the discharge instructions. See discharge instructions for further discussion. Departure Impression Primary Impression: Episode of hypertension Disposition: HOME, SELF-CARE Condition: Stable Departure-Patient Inst. Decision time for Depature: 00:20 Referrals: NO,LOCAL PHYSICIAN (PCP/Family) Primary Care Physician Patient Instructions: High Blood Pressure (DC) Add. Discharge Instructions: Take a dose of clonidine when you return home. If you are still awake, check of blood pressure about an hour later. If your top number is 165 or less and your bottom number is 115 or less, you may to bed and check your blood pressure again in the morning. Check your blood pressure an hour after you take your usual medications in the morning. If your blood pressure is higher than 160 on the top number or 110 on the bottom number in the morning, take another clonidine tablet and contact your doctor for instructions. Avoid things that may worsen your blood pressure such as excessive caffeine, diet pills, energy drinks, workout supplements, decongestant medications, excessive salt, etc. Return to care if your blood pressure is uncontrolled despite using clonidine or if you are having other worsening symptoms. Continue all of your other medication as previously prescribed. Schedule a follow-up with your primary care provider as soon as possible. All discharge instructions reviewed with patient and/or family. Voiced understanding. Copy Copies To 1: FELECIA FORTUNE MD Copies To 2: [facility]/RALPH KIM MD May 29, 2023 23:52
[2023-05-30] MEDS ORDERED: GABA300C PO (20:17)
[2023-05-30] MEDS ORDERED: VALA10007 PO (20:17)
== END 2023-05-30 00:31 | disposition home or self-care (01) ==
LOC: EDUNIT# 23:22 → ER 23:25
DX: I10 Essential (primary) hypertension (principal); E66.9 Obesity, unspecified; Z87.891 Personal history of nicotine dependence; Z68.41 Body mass index [BMI] 40.0-44.9, adult; Z95.810 Presence of automatic (implantable) cardiac defibrillator
CPT/HCPCS: 99281

== ENCOUNTER 2023-05-30 17:53 | Emergency (ER) | payer MEDICARE, MEDICAID ==
[~2023-05-30] VITALS: Ht 160 cm; Wt 100.0 kg
[2023-05-30 18:16] LABS: BASOPHILS % (AUTO) 1 % (0-10); EOSINOPHILS # (AUTO) 0.1 10^3/uL (0.0-0.3); EOSINOPHILS % (AUTO) 1 % (0-10); HEMATOCRIT 46 % (35-52); HEMOGLOBIN 15.1 g/dL (11.5-16.0); LYMPHOCYTES # (AUTO) 3.6 10^3/uL (1.0-4.0); LYMPHOCYTES % (AUTO) 47 % (12-44); MEAN CORPUSCULAR HEMOGLOBIN 29 pg (25-34); MEAN CORPUSCULAR HGB CONC 33 g/dL (32-36); MEAN CORPUSCULAR VOLUME 89 fL (80-99); MEAN PLATELET VOLUME 8.7 fL (9.0-12.2); MONOCYTES # (AUTO) 0.5 10^3/uL (0.0-1.0); MONOCYTES % (AUTO) 7 % (0-12); NEUTROPHILS # (AUTO) 3.4 10^3/uL (1.8-7.8); NEUTROPHILS % (AUTO) 44 % (42-75); PLATELET COUNT 425 10^3/uL (130-400); WHITE BLOOD COUNT 7.7 10^3/uL (4.3-11.0)
[2023-05-30 18:21] LABS: INR 0.9 (0.8-1.4)
[2023-05-30 18:24] LABS: ALBUMIN 3.9 GM/DL (3.2-4.5); CHLORIDE 105 MMOL/L (98-107); POTASSIUM 3.9 MMOL/L (3.6-5.0); SODIUM 140 MMOL/L (135-145)
[2023-05-30 18:25] LABS: CALCIUM 9.1 MG/DL (8.5-10.1)
[2023-05-30 18:26] LABS: GLUCOSE 112 MG/DL (70-105); TOTAL PROTEIN 7.4 GM/DL (6.4-8.2)
[2023-05-30 18:27] LABS: CARBON DIOXIDE 24 MMOL/L (21-32)
[2023-05-30 18:28] LABS: BILIRUBIN,TOTAL 0.2 MG/DL (0.1-1.0)
[2023-05-30 18:30] LABS: ALKALINE PHOSPHATASE 81 U/L (40-136); CREATININE SERUM 2.48 MG/DL (0.60-1.30); GFR ESTIMATED 25
[2023-05-30 18:31] LABS: BUN/CREATININE RATIO 7
[2023-05-30 18:33] LABS: ALANINE AMINOTRANSFERASE 13 U/L (0-55)
--- NOTE | 2023-05-30 18:34 | ED General ---
General Chief Complaint: Chest Pain Stated Complaint: CHEST PAIN/LEFT ARM/SIDE PAIN Nursing Triage Note: PT TO ED WITH C/O CHEST PAIN RADIATING DOWN HER LEFT SIDE THAT STARTED JUST DIRECTOR OF MARKET RESEARCH WHILE SITTING IN HER CAR Source of Information: Patient Exam Limitations: No Limitations History of Present Illness Date Seen by Provider: May 30, 2023 Time Seen by Provider: 18:05 Initial Comments This 32-year-old young lady well-known to me from prior visits presents to the emergency room with complaints of pain in the left anterior and superior shoulder region radiating down into the left upper chest, left lateral chest, left back, and down into the left leg. It is intermittent and shooting in nature. She denies any obvious triggers, although she does tend to wince when she moves and when these areas are palpated. There are no skin findings to suggest shingles or other skin pathology at this time. Onset was within about the past hour and started while she was sitting in the car. She has extensive past medical history that includes anoxic brain injury with permanent neurologic deficits including deficits of cognition, speech, and some minor motor deficits. She has nonischemic cardiomyopathy with most recent ejection fraction of approximately 20%. She has a malfunctioning ICD and is scheduled to have that evaluated for revision or replacement on June 08 at [facility] with Dr. Ramos. She has history of illicit substance abuse including substance abuse thought to be the cause of her initial cardiac event leading to the anoxic brain injury. 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 She reports good compliance with her medications. She was seen by me in this ER last night for hypertensive exacerbation. She took a clonidine upon returning home from that visit and has not required any further PRN clonidine since then. Blood pressures are improved today. The pattern and nature of her symptoms today seem suspicious for a radicular problem. She denies any known history of cervical spinal disease such as disc bulging or spinal stenosis. She did have a CT of the head and cervical spine on May 08 that was relatively unremarkable. It is unknown if her ICD device is MRI compatible. Patient is a relatively poor historian. She is accompanied by her mother who assists with the history. It is difficult to elicit the specific areas and nature of her pain complaints because of her speech and cognitive deficits. ICD was interrogated. 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 The device has been malfunctioning for about 6 months according to their logs. Allergies and Home Medications Allergies Coded Allergies: JIA Inhibitors (Verified Allergy, Severe, 05/22/19) ARB-Angiotensin Receptor Antagonist (Verified Allergy, Severe, 05/22/19) amoxicillin (Verified Allergy, Unknown, 05/28/21) baclofen (Unverified Allergy, Unknown, 05/22/19) ON H&P clavulanic acid (Verified Allergy, Unknown, 05/28/21) phenazopyridine (Unverified Allergy, Unknown, 05/22/19) ON H&P Patient Home Medication List Home Medication List Reviewed: Yes Acetaminophen (Tylenol) 325 Mg Tablet, 650 MG PO Q6H PRN for PAIN-MILD (1-4), (Reported) Entered as Reported by: VEL BAILEY on 05/18/23844 Amlodipine Besylate (Amlodipine Besylate) 10 Mg Tablet, 10 MG PO DAILY, (Reported) Entered as Reported by: VEL BAILEY on 05/18/23844 Apixaban (Eliquis) 5 Mg Tablet, 5 MG PO BID, (Reported) Entered as Reported by: VEL BAILEY on 05/18/23844 Aspirin (Aspirin EC) 81 Mg Tablet.dr, 81 MG PO DAILY, (Reported) Entered as Reported by: VEL BAILEY on 05/18/23844 Biotin (Biotin) 10,000 Mcg Capsule, 10,000 MCG PO BID, (Reported) Entered as Reported by: VEL BAILEY on 05/18/23844 Famotidine (Acid [place] (FAMOTIDINE)) 20 Mg Tablet, 20 MG PO DAILY, (Reported) Entered as Reported by: VEL BAILEY on 05/18/23844 Furosemide (Furosemide) 40 Mg Tablet, 40 MG PO BID, (Reported) Entered as Reported by: VEL BAILEY on 05/18/23844 Gabapentin (Neurontin) 300 Mg Capsule, 300 MG PO BID PRN for PAIN Prescribed by: RALPH DELCID on 05/30/232016 Metoprolol Tartrate (Metoprolol Tartrate) 50 Mg Tablet, 50 MG PO BID, (Reported) Entered as Reported by: VEL BAILEY on 05/18/23844 Ropinirole HCl (Ropinirole HCl) 0.5 Mg Tablet, 0.5 MG PO HS, (Reported) Entered as Reported by: VEL BAILEY on 05/18/23 0845 Sacubitril/Valsartan (Entresto 24 mg-26 mg Tablet) 24 Mg-26 Mg Tablet, 1 TAB PO BID, (Reported) Entered as Reported by: VEL BAILEY on 05/18/23 0845 Valacyclovir HCl (Valacyclovir) 1,000 Mg Tablet, 1,000 MG PO TID Prescribed by: RALPH DELCID on 05/30/232016 Review of Systems Review of Systems Constitutional: no symptoms reported EENTM: see HPI Respiratory: no symptoms reported Cardiovascular: see HPI Gastrointestinal: no symptoms reported Genitourinary: no symptoms reported : No Musculoskeletal: see HPI Skin: no symptoms reported Psychiatric/Neurological: See HPI Hematologic/Lymphatic: See HPI Immunological/Allergic: no symptoms reported Past Jpxwtsg-Xbvess-Nflrzl Hx Patient Social History Tobacco Use?: No Substance use?: No Alcohol Use?: No Immunizations Up To Date Tetanus Booster (TDap): Unknown PED Vaccines UTD: Yes First/Initial COVID19 Vaccinat: X3 Second COVID19 Vaccination [place]: [employer] Third COVID19 Vaccination Date: [employer] Seasonal Allergies Seasonal Allergies: No Past Medical History Surgery/Hospitalization HX: DEFIBRILLATOR, PACEMAKER, HEART FAILURE, HTN, HIGH CHOLESTEROL, CKD Surgeries: Yes (PACER/DEFIB 2014; DEFIB PLACED 05/10/19. PEG TUBE- REMOVED;UTERINE ABLATION) Abdominal, Section, Defibrillator, Gallbladder, Hysterectomy, Pacemaker Respiratory: Yes (ARDS-CODED; PNEUMOTHORAX 06/2015) Pneumonia, Chronic Bronchitis Currently Using CPAP: No Currently Using BIPAP: No Cardiac: Yes (PULMONARY EDEMA/CARDIAC CAUSE-R/T ATRIAL THROMBUS; CARDIAC ARREST;V-FIB ) Cardiomyopathy (Nonischemic cardiomyopathy, EF 20% April 2023), Endocarditis, Hypertension, Valvular Heart Disease Neurological: Yes (encephalopathy-hypoxia, anoxic brain injury; POOR MEMORY;SLURRED SPEECH) : No Reproductive Disorders: Yes (ENDOMETRIAL ABLATION) Female Reproductive Disorders: Menstrual Problems Sexually Transmitted Disease: No Genitourinary: Yes (BASELINE CREATININE BETWEEN 2 & 3) Renal Failure Gastrointestinal: Yes Gastroesophageal Reflux Musculoskeletal: Yes (GAIT DISTURBANCE) Endocrine: No (OBESITY) HEENT: No Loss of Vision: Denies Hearing Impairment: Denies Cancer: No Psychosocial: Yes (SUBSTANCE ABUSE) Anxiety, Bipolar, Depression Integumentary: No Blood Disorders: Yes (ANEMIA) Family Medical History Patient reports no known family medical history. 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 SHE HAS HAD A DEFIBRILLATOR IN PLACE SINCE AGE 24. T.E.E. 05/18/[address] FORTUNE: -SEVERE DIFFUSE HYPOKINESIA OF LEFT VENTRICLE -4 CHAMBER DILATION -EF 20% -NO CLOTS/THROMBUS -NO VEGETATIONS -MODERATE MITRAL REGURGITATION. Physical Exam Vital Signs Vital Signs - First Documented 05/30/23 05/30/23 17:57 20:55 Temp 37.1 Pulse 92 Resp 12 B/P (MAP) 140/97 (111) Pulse Ox 92 O2 Delivery Room Air Capillary Refill : Height, Weight, BMI Height: 5'3.00" Weight: 234lbs. 0oz. 106.889329bv; 39.00 BMI Method:Stated General Appearance: No Apparent Distress, WD/WN, Obese HEENT: PERRL/EOMI, Normal ENT Inspection Neck: Normal Inspection, Non Tender Respiratory: Lungs Clear; No Crackles; Decreased Breath Sounds (Diminished in the bases); No Wheezing Cardiovascular: Regular Rate, Rhythm, No Edema, No Murmur Gastrointestinal: Non Tender, Soft; No Distended Extremity: Normal Inspection, Other (Tenderness extending from the upper and anterior left shoulder down along the left upper chest, left lateral chest, left back, and into the left leg. There is pain in the leg but leg is not particularly tender. Neck is not tender.) Neurologic/Psychiatric: Alert, Oriented x3, Normal Mood/Affect, Other (Speech, cognitive, and motor deficits are at baseline based on my prior interactions with the patient. She moves all 4 extremities equally on neuro exam.) Skin: Normal Color, Warm/Dry; No Rash Progress/Results/Core Measures Suspected Sepsis SIRS Temperature: Pulse: 92 Respiratory Rate: 12 Laboratory Tests 05/30/23 18:00: White Blood Count 7.7 Blood Pressure 140 /97 Mean: 111 Laboratory Tests 05/30/23 18:00: Creatinine 2.48H, INR Comment 0.9, Platelet Count 425H, Total Bilirubin 0.2 Results/Orders Lab Results Laboratory Tests Test 05/30/23 18:00 05/30/23 18:16 Range/Units White Blood Count 7.7 4.3-11.0 10^3/uL Red Blood Count 5.21 H 3.80-5.11 10^6/uL Hemoglobin 15.1 11.5-16.0 g/dL Hematocrit 46 35-52 % Mean Corpuscular Volume 89 80-99 fL Mean Corpuscular Hemoglobin 29 25-34 pg Mean Corpuscular Hemoglobin Concent 33 32-36 g/dL Red Cell Distribution Width 15.1 H 10.0-14.5 % Platelet Count 425 H 130-400 10^3/uL Mean Platelet Volume 8.7 L 9.0-12.2 fL Immature Granulocyte % (Auto) 0 % Neutrophils (%) (Auto) 44 42-75 % Lymphocytes (%) (Auto) 47 H 12-44 % Monocytes (%) (Auto) 7 0-12 % Eosinophils (%) (Auto) 1 0-10 % Basophils (%) (Auto) 1 0-10 % Neutrophils # (Auto) 3.4 1.8-7.8 10^3/uL Lymphocytes # (Auto) 3.6 1.0-4.0 10^3/uL Monocytes # (Auto) 0.5 0.0-1.0 10^3/uL Eosinophils # (Auto) 0.1 0.0-0.3 10^3/uL Basophils # (Auto) 0.0 0.0-0.1 10^3/uL Immature Granulocyte # (Auto) 0.0 0.0-0.1 10^3/uL Prothrombin Time 12.0 L 12.2-14.7 SEC INR Comment 0.9 0.8-1.4 Activated Partial Thromboplast Time 29 24-35 SEC Sodium Level 140 135-145 MMOL/L Potassium Level 3.9 3.6-5.0 MMOL/L Chloride Level 105 98-107 MMOL/L Carbon Dioxide Level 24 21-32 MMOL/L Anion Gap 11 5-14 MMOL/L Blood Urea Nitrogen 18 7-18 MG/DL Creatinine 2.48 H 0.60-1.30 MG/DL Estimat Glomerular Filtration Rate 25 BUN/Creatinine Ratio 7 Glucose Level 112 H 70-105 MG/DL Calcium Level 9.1 8.5-10.1 MG/DL Corrected Calcium 9.2 8.5-10.1 MG/DL Magnesium Level 2.0 1.6-2.4 MG/DL Total Bilirubin 0.2 0.1-1.0 MG/DL Aspartate Amino Transf (AST/SGOT) 16 5-34 U/L Alanine Aminotransferase (ALT/SGPT) 13 0-55 U/L Alkaline Phosphatase 81 40-136 U/L Myoglobin 102.8 H 10.0-92.0 NG/ML Troponin I < 0.028 <0.028 NG/ML Total Protein 7.4 6.4-8.2 GM/DL Albumin 3.9 3.2-4.5 GM/DL B-Type Natriuretic Peptide 435.0 H <100.0 PG/ML My Orders Orders - RALPH LÓPEZ MD Cbc With Automated Diff (05/30/23 18:08) Magnesium (05/30/23 18:08) Chest 1 View, Ap/Pa Only (05/30/23 18:08) Comprehensive Metabolic Panel (05/30/23 18:08) Myoglobin Serum (05/30/23 18:08) Protime With Inr (05/30/23 18:08) Partial Thromboplastin Time (05/30/23 18:08) O2 (05/30/23 18:08) Monitor-Rhythm Ecg Trace Only (05/30/23 18:08) Lipid Panel (05/31/23 06:00) Ed Iv/Invasive Line Start (05/30/23 18:08) Troponin I Ralls (05/30/23 18:08) Bnp Ralls (05/30/23 18:13) Drug Screen Stat (Urine) (05/30/23 18:15) Ct Cervical Spine Wo (05/30/23 18:32) Ct Thoracic Spine Wo (05/30/23 18:34) Fentanyl Inj (Sublimaze Injection) (05/30/23 18:45) Gabapentin Capsule/Tablet (Neurontin Cap (05/30/23 20:15) Medications Given in ED Current Medications Medications Dose Ordered Sig/Mikal Route Start Time Stop Time Status Last Admin Dose Admin Fentanyl Citrate 50 mcg ONCE ONCE IVP 05/30/23 18:45 7/3/23 18:46 DC 05/30/23 19:08 50 MCG Gabapentin 300 mg ONCE ONCE PO 05/30/23 20:15 05/30/23 20:16 DC 05/30/23 20:26 300 MG Vital Signs/I&O 05/30/23 05/30/23 17:57 20:55 Temp 37.1 Pulse 92 90 Resp 12 18 B/P (MAP) 140/97 (111) 158/121 Pulse Ox 92 96 O2 Delivery Room Air Capillary Refill : Blood Pressure Mean: 111 Progress Note #1: Time: 18:47 Progress Note Patient was interviewed and examined. Mother contributed to the history. ICD interrogated as in HPI. EKG demonstrated no ischemic changes. CT of the cervical spine and thoracic spine is being obtained to evaluate for any changes that may suggest a radicular source for her pain. Fentanyl was given for treatment of pain. Patient consents to urine drug screen to document no recent drug exposures. Progress Note #2: Progress Note Cardiac panel was obtained. Labs were reviewed and interpreted by me. CBC was unremarkable. CMP was notable for elevated creatinine of 2.48 which was near baseline. BNP was not significantly elevated. Troponin was negative. CT imaging of the cervical spine and thoracic spine was obtained to rule out any spinal impingement contributed to her pain. No gross abnormalities were appreciated on my interpretation. Radiologist's reports were also reviewed and noted no significant causative pathology. I suspect patient's pain is radicular in nature. Shingles could also be in the differential as she had some sensitivity to light touch and pressure in the affected areas. Gabapentin was given for pain control after fentanyl. See discharge instructions for further discussion. ECG Initial ECG Impression Date: May 30, 2023 Initial ECG Impression Time: 17:58 Initial ECG Rate: 90 Initial ECG Rhythm: Normal Sinus Comment Sinus rhythm with no ST elevation or depression. LVH noted. No abnormal intervals. Diagnostic Imaging Diagonstic Imaging: Xray Plain Films/CT/US/NM/MRI: chest Comments Chest x-ray viewed by me and report reviewed. See report below: NAME: SAL PRIEST [facility] REC#: [id number] PT STATUS: REG ER : 1990 PHYSICIAN: RALPH LÓPEZ MD ADMIT DATE: 05/30/23/ER Signed Date of Exam:05/30/23 CHEST 1 VIEW, AP/PA ONLY INDICATION: Chest pain EXAM: Portable chest at 6:52 PM FINDINGS: There is a dual-chamber pacemaker. Heart size and pulmonary vascularity are normal. Lungs are clear. There are no effusions or pneumothoraces. IMPRESSION: Negative chest. Dictated by: Dictated on workstation # [id number] Dict: 05/30/231855 Trans: 05/30/231914 [facility] Interpreted by: FEDE BURGER MD Electronically signed by: FEDE BURGER MD 05/30/231914 Diagonstic Imaging: CT Plain Films/CT/US/NM/MRI: c-spine Comments CT cervical spine viewed by me and report reviewed. See report below: NAME: SAL PRIEST [facility] REC#: [id number] PT STATUS: REG ER : 1990 PHYSICIAN: RALPH LÓPEZ MD ADMIT DATE: 05/30/23/ER Signed Date of Exam:05/30/23 CT CERVICAL SPINE WO PROCEDURE: CT cervical spine without contrast. TECHNIQUE: Multiple contiguous axial images were obtained through the cervical spine without the use of intravenous contrast. Sagittal and coronal reformations were then performed. Auto Exposure Controls were utilized during the CT exam to meet ALARA standards for radiation dose reduction. INDICATION: Left-sided neck pain. There is reverse curvature of the cervical spine. Vertebral body height and alignment appear normal. Disc spaces are well-maintained. There are no fractures or prevertebral soft tissue swelling. IMPRESSION: Reverse curvature of the cervical spine which could be due to muscle spasm. No acute abnormality is seen. Dictated by: Dictated on workstation # [id number] Dict: 05/30/231849 Trans: 05/30/231914 [facility] Interpreted by: FEDE BURGER MD Electronically signed by: FEDE BURGER MD 05/30/231914 Diagonstic Imaging: CT Plain Films/CT/US/NM/MRI: other (Thoracic spine) Comments CT thoracic spine viewed by me and report reviewed. See report below: NAME: SAL PRIEST [facility] REC#: [id number] PT STATUS: REG ER : 1990 PHYSICIAN: RALPH LÓPEZ MD ADMIT DATE: 05/30/23/ER Signed Date of Exam:05/30/23 CT THORACIC SPINE WO PROCEDURE: CT thoracic spine without contrast. TECHNIQUE: Multiple axial computerized tomography images were obtained from the base of the thoracic spine to the vertex without intravenous contrast. Auto Exposure Controls were utilized during the CT exam to meet ALARA standards for radiation dose reduction. INDICATION: Left-sided chest pain. Vertebral body height and alignment appear normal. Disc spaces are well-maintained. Posterior elements are intact. There is no bony spinal stenosis. IMPRESSION: Unremarkable CT thoracic spine. Dictated by: Dictated on workstation # [id number] Dict: 05/30/231850 Trans: 05/30/231914 [facility] [id number] Interpreted by: FEDE BURGER MD Electronically signed by: FEDE BURGER MD 05/30/231914 Departure Impression Primary Impression: Left-sided back pain Qualified Codes: M54.6 - Pain in thoracic spine Additional Impression: Left-sided chest wall pain Disposition: 01 HOME, SELF-CARE Condition: Improved Departure-Patient Inst. Decision time for Depature: 20:15 Referrals: NO,LOCAL PHYSICIAN (PCP/Family) Primary Care Physician Patient Instructions: Radiculopathy, Shingles Add. Discharge Instructions: The exact cause of your pain is uncertain. Based on the history of the pain and nature of the pain, it seems unlikely to be related to your defibrillator device. However, if you are still experiencing the pain when you follow-up with Dr. Ramos in [place], please discuss this pain with him at that time. If the gabapentin (Neurontin) given to you in the emergency room was helpful, you may fill the prescription provided and use twice daily as needed. Gabapentin may cause drowsiness so use with caution. Gabapentin is a medication that treats nerve pain. Your pain may be caused by impingement of a nerve in your neck or upper back or impingement of the spine in your neck or upper back. If you develop rash, you may have shingles. In the event rash develops, start the valacyclovir and complete the entire course. If you do not need the valacyclovir, you may call the pharmacy and cancel it. If your pain persists after tomorrow, follow-up with your primary care provider to discuss further evaluation. If you need further evaluation of your spine, MRI may be necessary. You will need to check with your cardiology team to determine if your cardiac device is compatible with MRI. Continue your usual medications as previously prescribed. Return to the ER if you have worsening symptoms despite following these instructions. [facility] opens at 9 AM tomorrow morning. All discharge instructions reviewed with patient and/or family. Voiced understanding. Scripts Valacyclovir HCl (Valacyclovir) 1,000 Mg Tablet 1000 MG PO TID, #21 TAB Prov: RALPH LÓPEZ MD 05/30/23 Gabapentin (Neurontin) 300 Mg Capsule 300 MG PO BID PRN for PAIN, #10 CAP Prov: RALPH LÓPEZ MD 05/30/23 Copy Copies To 1: FELECIA FORTUNE MD Copies To 2: [facility]/RALPH KIM MD May 30, 2023 18:34
[2023-05-30] MEDS ORDERED: fentaNYL INJ 100 MCG/2 ML AMP IVP ONE (18:45)
--- NOTE | 2023-05-30 18:58 | Diagnostic Imaging Report ---
PROCEDURE: CT thoracic spine without contrast. TECHNIQUE: Multiple axial computerized tomography images were obtained from the base of the thoracic spine to the vertex without intravenous contrast. Auto Exposure Controls were utilized during the CT exam to meet ALARA standards for radiation dose reduction. INDICATION: Left-sided chest pain. Vertebral body height and alignment appear normal. Disc spaces are well-maintained. Posterior elements are intact. There is no bony spinal stenosis. IMPRESSION: Unremarkable CT thoracic spine. Dictated by: Dictated on workstation # [id number]
--- NOTE | 2023-05-30 18:59 | Diagnostic Imaging Report ---
INDICATION: Chest pain EXAM: Portable chest at 6:52 PM FINDINGS: There is a dual-chamber pacemaker. Heart size and pulmonary vascularity are normal. Lungs are clear. There are no effusions or pneumothoraces. IMPRESSION: Negative chest. Dictated by: Dictated on workstation # [id number]
--- NOTE | 2023-05-30 18:59 | Diagnostic Imaging Report ---
PROCEDURE: CT cervical spine without contrast. TECHNIQUE: Multiple contiguous axial images were obtained through the cervical spine without the use of intravenous contrast. Sagittal and coronal reformations were then performed. Auto Exposure Controls were utilized during the CT exam to meet ALARA standards for radiation dose reduction. INDICATION: Left-sided neck pain. There is reverse curvature of the cervical spine. Vertebral body height and alignment appear normal. Disc spaces are well-maintained. There are no fractures or prevertebral soft tissue swelling. IMPRESSION: Reverse curvature of the cervical spine which could be due to muscle spasm. No acute abnormality is seen. Dictated by: Dictated on workstation # [id number]
[2023-05-30] MEDS ORDERED: GABAPENTIN 300 MG (NEURONTIN) CAP PO ONE (20:15)
[2023-05-30] MEDS ORDERED: GABA300C PO (20:17)
[2023-05-30] MEDS ORDERED: VALA10007 PO (20:17)
[2023-05-30 20:55] VITALS: BP 158/121
== END 2023-05-30 20:55 | disposition home or self-care (01) ==
LOC: EDUNIT# 17:53 → ER 17:55
DX: M54.6 Pain in thoracic spine (principal); R07.89 Other chest pain; R79.89 Other specified abnormal findings of blood chemistry; I51.3 Intracardiac thrombosis, not elsewhere classified; E66.9 Obesity, unspecified; Z68.39 Body mass index [BMI] 39.0-39.9, adult; Z79.01 Long term (current) use of anticoagulants; Z95.0 Presence of cardiac pacemaker; Z87.891 Personal history of nicotine dependence
CPT/HCPCS: 36415; 71045; 72125; 72128; 80053; 83735; 83874; 83880; 84484; 85025; 85610; 85730; 93005; 93041

== ENCOUNTER 2023-06-12 06:19 | Emergency (ER) | payer MEDICARE, MEDICAID ==
[~2023-06-12] VITALS: Ht 160 cm; Wt 101.0 kg
[~2023-06-12 06:19] MED LIST changes: +GABA300C PO; +POTA-185 PO; -POTA10TA PO; +VALA10007 PO
[2023-06-12 06:25] VITALS: BP 162/137
--- NOTE | 2023-06-12 06:38 | ED GU-Female ---
General Chief Complaint: - Reproductive Stated Complaint: STS BLADDER NOT EMPTYING Source: patient Exam Limitations: no limitations History of Present Illness Date Seen by Provider: Jun 12, 2023 Time Seen by Provider: 06:28 Initial Comments 32-year-old female with history of congestive heart failure from meth use presents to the emergency department today feeling as though her bladder is not emptying. She states she took a marijuana gummy about 6:00 last night. She urinated just before that and she is only urinated once since that time. She denies any abdominal pain but does have the sensation that she needs to urinate. When asked to provide a sample she states she urinated just prior to arrival. She has had normal menstrual cycles and normal bowel movements. She is otherwise asymptomatic. She denies dysuria, hematuria. All other systems reviewed and negative except documented per HPI. Voice recognition software was used to help create this chart Allergies and Home Medications Allergies Coded Allergies: JIA Inhibitors (Verified Allergy, Severe, 05/22/19) ARB-Angiotensin Receptor Antagonist (Verified Allergy, Severe, 05/22/19) amoxicillin (Verified Allergy, Unknown, 05/28/21) baclofen (Unverified Allergy, Unknown, 05/22/19) ON H&P clavulanic acid (Verified Allergy, Unknown, 05/28/21) phenazopyridine (Unverified Allergy, Unknown, 05/22/19) ON H&P Patient Home Medication List Home Medication List Reviewed: Yes Acetaminophen (Tylenol) 325 Mg Tablet, 650 MG PO Q6H PRN for PAIN-MILD (1-4), (Reported) Entered as Reported by: VEL BAILEY on 05/18/23844 Amlodipine Besylate (Amlodipine Besylate) 10 Mg Tablet, 10 MG PO DAILY, (Reported) Entered as Reported by: VEL BAILEY on 05/18/23844 Apixaban (Eliquis) 5 Mg Tablet, 5 MG PO BID, (Reported) Entered as Reported by: VEL BAILEY on 05/18/23844 Aspirin (Aspirin EC) 81 Mg Tablet.dr, 81 MG PO DAILY, (Reported) Entered as Reported by: VEL BAILEY on 05/18/23844 Biotin (Biotin) 10,000 Mcg Capsule, 10,000 MCG PO BID, (Reported) Entered as Reported by: VEL BAILEY on 6/21/23 0845 Famotidine (Acid Take Out Waiter/Waitress (FAMOTIDINE)) 20 Mg Tablet, 20 MG PO DAILY, (Reported) Entered as Reported by: VEL BAILEY on 05/18/23 0845 Furosemide (Furosemide) 40 Mg Tablet, 40 MG PO BID, (Reported) Entered as Reported by: VEL BAILEY on 05/18/23 0845 Gabapentin (Neurontin) 300 Mg Capsule, 300 MG PO BID PRN for PAIN Prescribed by: ARLPH DELCID on 05/30/232016 Metoprolol Tartrate (Metoprolol Tartrate) 50 Mg Tablet, 50 MG PO BID, (Reported) Entered as Reported by: VEL BAILEY on 05/18/23 0845 Ropinirole HCl (Ropinirole HCl) 0.5 Mg Tablet, 0.5 MG PO HS, (Reported) Entered as Reported by: VEL BAILEY on 05/18/23844 Sacubitril/Valsartan (Entresto 24 mg-26 mg Tablet) 24 Mg-26 Mg Tablet, 1 TAB PO BID, (Reported) Entered as Reported by: VEL BAILEY on 05/18/23 0845 Valacyclovir HCl (Valacyclovir) 1,000 Mg Tablet, 1,000 MG PO TID Prescribed by: RALPH DELCID on 05/30/232016 Review of Systems Review of Systems Constitutional: see HPI Past Osxonca-Pcsfkh-Auqsgd Hx Patient Social History Tobacco Use?: No Use of E-Cig and/or Vaping dev: No Substance use?: Yes Alcohol Use?: No Immunizations Up To Date Tetanus Booster (TDap): Unknown PED Vaccines UTD: Yes First/Initial COVID19 Vaccinat: X3 Second COVID19 Vaccination Adair: Pfizer Third COVID19 Vaccination Date: [place] Seasonal Allergies Seasonal Allergies: No Past Medical History Surgery/Hospitalization HX: DEFIBRILLATOR, PACEMAKER, HEART FAILURE, HTN, HIGH CHOLESTEROL, CKD Surgeries: Yes (PACER/DEFIB 2014; DEFIB PLACED 05/10/19. PEG TUBE-REMOVED;UTERINE ABLATION) Abdominal, Section, Defibrillator, Gallbladder, Hysterectomy, Pacemaker Respiratory: Yes (ARDS-CODED; PNEUMOTHORAX 06/2015) Pneumonia, Chronic Bronchitis Currently Using CPAP: No Currently Using BIPAP: No Cardiac: Yes (PULMONARY EDEMA/CARDIAC CAUSE-R/T ATRIAL THROMBUS; CARDIAC ARREST;V-FIB ) Cardiomyopathy, Endocarditis, Hypertension, Valvular Heart Disease Neurological: Yes (encephalopathy-hypoxia, anoxic brain injury; POOR MEMORY;SLURRED SPEECH) Reproductive Disorders: Yes (ENDOMETRIAL ABLATION) Female Reproductive Disorders: Menstrual Problems Sexually Transmitted Disease: No Genitourinary: Yes (BASELINE CREATININE BETWEEN 2 & 3) Renal Failure Gastrointestinal: Yes Gastroesophageal Reflux Musculoskeletal: Yes (GAIT DISTURBANCE) Endocrine: No (OBESITY) HEENT: No Loss of Vision: Denies Hearing Impairment: Denies Cancer: No Psychosocial: Yes (SUBSTANCE ABUSE) Anxiety, Bipolar, Depression Integumentary: No Blood Disorders: Yes (ANEMIA) Family Medical History Patient reports no known family medical history. 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 SHE HAS HAD A DEFIBRILLATOR IN PLACE SINCE AGE 24. T.E.E. 05/18/[address] FORTUNE: -SEVERE DIFFUSE HYPOKINESIA OF LEFT VENTRICLE -4 CHAMBER DILATION -EF 20% -NO CLOTS/THROMBUS -NO VEGETATIONS -MODERATE MITRAL REGURGITATION. Physical Exam Vital Signs Vital Signs - First Documented 06/12/23 06:25 Temp 36.0 Pulse 100 Resp 16 B/P (MAP) 162/137 (145) Capillary Refill : Height, Weight, BMI Height: 5'3.00" Weight: 234lbs. 0oz. [id number]; 39.00 BMI Method:Stated General Appearance: WD/WN, no apparent distress HEENT: normal ENT inspection, pharynx normal Neck: supple, normal inspection Cardiovascular: regular rate, rhythm, no murmur Respiratory: chest non-tender, lungs clear, normal breath sounds, no respiratory distress, no accessory muscle use Gastrointestinal: normal bowel sounds, non tender, soft, no organomegaly Back: normal inspection, no CVA tenderness, no vertebral tenderness Extremities: normal inspection, normal capillary refill Neurologic/Psychiatric: alert, normal mood/affect, oriented x 3 Skin: normal color, warm/dry Progress/Results/Core Measures Suspected Sepsis SIRS Temperature: Pulse: Respiratory Rate: Blood Pressure / Mean: Results/Orders Vital Signs/I&O 06/12/23 06:25 Temp 36.0 Pulse 100 Resp 16 B/P (MAP) 162/137 (145) Capillary Refill : Departure Communication (Admissions) Patient is hemodynamically stable. She has only 75 cc in her bladder at the time of arrival. No evidence for urinary retention, other acute medical emergency at this time. She cannot provide a urine sample as she just urinated prior to arrival but she has no symptoms consistent with UTI. She will be discharged in stable condition. Impression Primary Impression: Encounter for medical screening examination Disposition: HOME, SELF-CARE Condition: Stable Departure-Patient Inst. Referrals: [facility] [place] ([place]P/Family) Primary Care Physician Add. Discharge Instructions: You are not retaining urine. Continue to drink plenty of fluids. Return to the emergency department for any severe concerns All discharge instructions reviewed with patient and/or family. Voiced un derstanding. MAGO ELISE DO Jun 12, 2023 06:38
== END 2023-06-12 06:54 | disposition home or self-care (01) ==
LOC: EDUNIT# 06:19 → ER 06:22
DX: Z00.00 Encounter for general adult medical examination without abnormal findings (principal); E66.9 Obesity, unspecified; Z87.891 Personal history of nicotine dependence; Z68.39 Body mass index [BMI] 39.0-39.9, adult
CPT/HCPCS: 99285

== ENCOUNTER 2023-06-24 04:34 | Emergency (ER) | payer MEDICARE, MEDICAID ==
[2023-06-24 04:56] LABS: BASOPHILS # (AUTO) 0.1 10^3/uL (0.0-0.1); BASOPHILS % (AUTO) 1 % (0-10); EOSINOPHILS # (AUTO) 0.1 10^3/uL (0.0-0.3); EOSINOPHILS % (AUTO) 2 % (0-10); HEMATOCRIT 42 % (35-52); HEMOGLOBIN 13.7 g/dL (11.5-16.0); LYMPHOCYTES # (AUTO) 3.8 10^3/uL (1.0-4.0); LYMPHOCYTES % (AUTO) 44 % (12-44); MEAN CORPUSCULAR HEMOGLOBIN 29 pg (25-34); MEAN CORPUSCULAR HGB CONC 33 g/dL (32-36); MEAN CORPUSCULAR VOLUME 89 fL (80-99); MEAN PLATELET VOLUME 9.3 fL (9.0-12.2); MONOCYTES # (AUTO) 0.8 10^3/uL (0.0-1.0); MONOCYTES % (AUTO) 9 % (0-12); NEUTROPHILS % (AUTO) 45 % (42-75); PLATELET COUNT 356 10^3/uL (130-400); WHITE BLOOD COUNT 8.8 10^3/uL (4.3-11.0)
[2023-06-24] MEDS ORDERED: ACETAMINOPHEN 500 MG TABLET PO ONE (05:00)
[2023-06-24 05:04] LABS: ALBUMIN 3.6 GM/DL (3.2-4.5); CHLORIDE 108 MMOL/L (98-107); INR 0.9 (0.8-1.4); PROTHROMBIN TIME PATIENT 12.4 SEC (12.2-14.7); SODIUM 139 MMOL/L (135-145)
[2023-06-24 05:05] LABS: AMYLASE 119 U/L (25-125); CALCIUM 8.3 MG/DL (8.5-10.1)
[2023-06-24 05:06] LABS: GLUCOSE 99 MG/DL (70-105); TOTAL PROTEIN 6.4 GM/DL (6.4-8.2)
[2023-06-24 05:07] LABS: CARBON DIOXIDE 19 MMOL/L (21-32)
[2023-06-24 05:08] LABS: BILIRUBIN,TOTAL 0.2 MG/DL (0.1-1.0)
[2023-06-24 05:10] LABS: ALKALINE PHOSPHATASE 60 U/L (40-136); CREATININE SERUM 2.91 MG/DL (0.60-1.30); GFR ESTIMATED 21
[2023-06-24 05:11] LABS: BUN/CREATININE RATIO 5
[2023-06-24 05:13] LABS: ALANINE AMINOTRANSFERASE 12 U/L (0-55)
[2023-06-24 05:14] LABS: CREATINE KINASE 222 U/L (29-168); LIPASE 27 U/L (8-78)
[2023-06-24 05:20] LABS: CREATINE KINASE MB 1.3 NG/ML (<6.6)
--- NOTE | 2023-06-24 05:41 | ED Chest Pain ---
General Chief Complaint: Chest Pain Stated Complaint: CP,SOB Source: patient, old records History of Present Illness Date Seen by Provider: Jun 24, 2023 Time Seen by Provider: 04:35 Initial Comments PT ARRIVES VIA EMS FROM HOME C/O CHEST PAIN IN CENTER AND LEFT CHEST AND IN LEFT UPPER BACK SINCE 2199 TONIGHT PT HAS NOT TAKEN ANYTHING FOR PAIN AT ANY TIME NO OTHER SYMPTOMS TONIGHT PT WITH PACEMAKER WITH BROKEN LEAD, FOR A LONG TIME. SHE HAD SURGERY SCHEDULED THIS PAST Tuesday06/21/23 TO REPLACE IT SHE HAD 2 VISITS LAST WEEK AT FOR PRE-OP VISITS SHE DID NOT KEEP THESE APPOINTMENT--SHE STATES THEY DID NOT HAVE ANY TRANSPORTATION THERE. SHE STATES HER APPOINTMENT HAS BEEN RESCHEDULED FOR AUG 23 PT WITH A MULTITUDE OF VISITS HERE FOR SAME OR SIMILAR COMPLAINTS THIS IS HER 5TH VISIT IN MAY FOR SAME OR SIMILAR COMPLAINT--LAST VISIT 06/19/23 FOR THIS SAME COMPLAINT CARDIAC WORK UP'S IN ER HAVE BEEN NEGATIVE FOR ACUTE CORONARY SYNDROME PT ADMITS TO BEING SCARED AND HAVING ANXIETY ABOUT HER PACEMAKER AND HAVING SURGERY. PT HAS HISTORY OF CARIOPULMONARY ARREST WITH ANOXIC BRAIN INJURY DUE TO METHAMPHETAMINE OVERDOSE Allergies and Home Medications Allergies Coded Allergies: JIA Inhibitors (Verified Allergy, Severe, 05/22/19) ARB-Angiotensin Receptor Antagonist (Verified Allergy, Severe, 05/22/19) amoxicillin (Verified Allergy, Unknown, 05/28/21) baclofen (Unverified Allergy, Unknown, 05/22/19) ON H&P clavulanic acid (Verified Allergy, Unknown, 05/28/21) phenazopyridine (Unverified Allergy, Unknown, 05/22/19) ON H&P Patient Home Medication List Acetaminophen (Tylenol) 325 Mg Tablet, 650 MG PO Q6H PRN for PAIN-MILD (1-4), (Reported) Entered as Reported by: VEL ABILEY on 05/18/23 0845 Amlodipine Besylate (Amlodipine Besylate) 10 Mg Tablet, 10 MG PO DAILY, (Reported) Entered as Reported by: VEL BAILEY on 05/18/23 0845 Apixaban (Eliquis) 5 Mg Tablet, 5 MG PO BID, (Reported) Entered as Reported by: VEL BAILEY on 05/18/23 0845 Aspirin (Aspirin EC) 81 Mg Tablet.dr, 81 MG PO DAILY, (Reported) Entered as Reported by: VEL BAILEY on 05/18/2345 Biotin (Biotin) 10,000 Mcg Capsule, 10,000 MCG PO BID, (Reported) Entered as Reported by: VEL BAILEY on 05/18/23 0845 Famotidine (Acid Canvas Shrinker (FAMOTIDINE)) 20 Mg Tablet, 20 MG PO DAILY, (Reported) Entered as Reported by: VEL BAILEY on 05/18/23 0845 Furosemide (Furosemide) 40 Mg Tablet, 40 MG PO BID, (Reported) Entered as Reported by: VEL BAILEY on 05/18/23 0845 Gabapentin (Neurontin) 300 Mg Capsule, 300 MG PO BID PRN for PAIN Prescribed by: RALPH DELCID on 05/30/232016 Metoprolol Tartrate (Metoprolol Tartrate) 50 Mg Tablet, 50 MG PO BID, (Reported) Entered as Reported by: VEL BAILEY on 05/18/23 0845 Ropinirole HCl (Ropinirole HCl) 0.5 Mg Tablet, 0.5 MG PO HS, (Reported) Entered as Reported by: VEL BAILEY on 05/18/23 0845 Sacubitril/Valsartan (Entresto 24 mg-26 mg Tablet) 24 Mg-26 Mg Tablet, 1 TAB PO BID, (Reported) Entered as Reported by: VEL BAILEY on 05/18/23844 Valacyclovir HCl (Valacyclovir) 1,000 Mg Tablet, 1,000 MG PO TID Prescribed by: RALPH DELCID on 05/30/232016 Past Jkfovkc-Dksxae-Gklllz Hx Immunizations Up To Date Tetanus Booster (TDap): Unknown PED Vaccines UTD: Yes First/Initial COVID19 Vaccinat: X3 Second COVID19 Vaccination Adair: Pfizer Third COVID19 Vaccination Date: [place] Seasonal Allergies Seasonal Allergies: No Past Medical History Surgery/Hospitalization HX: DEFIBRILLATOR, PACEMAKER, HEART FAILURE, HTN, HIGH CHOLESTEROL, CKD Surgeries: Yes (PACER/DEFIB 2014; DEFIB PLACED 05/10/19. PEG TUBE- REMOVED;UTERINE ABLATION) Abdominal, Section, Defibrillator, Gallbladder, Hysterectomy, Pacemaker Respiratory: Yes (ARDS-CODED; PNEUMOTHORAX 06/2015) Pneumonia, Chronic Bronchitis Currently Using CPAP: No Currently Using BIPAP: No Cardiac: Yes (PULMONARY EDEMA/CARDIAC CAUSE-R/T ATRIAL THROMBUS; CARDIAC ARREST;V-FIB ) Cardiomyopathy, Endocarditis, Hypertension, Valvular Heart Disease Neurological: Yes (encephalopathy-hypoxia, anoxic brain injury; POOR MEMORY;SLURRED SPEECH) Reproductive Disorders: Yes (ENDOMETRIAL ABLATION) Female Reproductive Disorders: Menstrual Problems Sexually Transmitted Disease: No Genitourinary: Yes (BASELINE CREATININE BETWEEN 2 & 3) Renal Failure Gastrointestinal: Yes Gastroesophageal Reflux Musculoskeletal: Yes (GAIT DISTURBANCE) Endocrine: No (OBESITY) HEENT: No Loss of Vision: Denies Hearing Impairment: Denies Cancer: No Psychosocial: Yes (SUBSTANCE ABUSE) Anxiety, Bipolar, Depression Integumentary: No Blood Disorders: Yes (ANEMIA) Family Medical History Patient reports no known family medical history. 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 SHE HAS HAD A DEFIBRILLATOR IN PLACE SINCE AGE 24. T.E.E. 05/18/[address] FORTUNE: -SEVERE DIFFUSE HYPOKINESIA OF LEFT VENTRICLE -4 CHAMBER DILATION -EF 20% -NO CLOTS/THROMBUS -NO VEGETATIONS -MODERATE MITRAL REGURGITATION. Physical Exam Vital Signs Vital Signs - First Documented 06/24/23 04:37 Temp 37.0 Pulse 69 Resp 16 B/P (MAP) 139/99 (112) Pulse Ox 98 O2 Delivery Room Air Capillary Refill : Height, Weight, BMI Height: 5'3.00" Weight: 234lbs. 0oz. 106.138316rq; 40.00 BMI Method:Stated Progress/Results/Core Measures Results/Orders Lab Results Laboratory Tests Test 06/24/23 04:45 Range/Units White Blood Count 8.8 4.3-11.0 10^3/uL Red Blood Count 4.69 3.80-5.11 10^6/uL Hemoglobin 13.7 11.5-16.0 g/dL Hematocrit 42 35-52 % Mean Corpuscular Volume 89 80-99 fL Mean Corpuscular Hemoglobin 29 25-34 pg Mean Corpuscular Hemoglobin Concent 33 32-36 g/dL Red Cell Distribution Width 15.5 H 10.0-14.5 % Platelet Count 356 130-400 10^3/uL Mean Platelet Volume 9.3 9.0-12.2 fL Immature Granulocyte % (Auto) 0 % Neutrophils (%) (Auto) 45 42-75 % Lymphocytes (%) (Auto) 44 12-44 % Monocytes (%) (Auto) 9 0-12 % Eosinophils (%) (Auto) 2 0-10 % Basophils (%) (Auto) 1 0-10 % Neutrophils # (Auto) 4.0 1.8-7.8 10^3/uL Lymphocytes # (Auto) 3.8 1.0-4.0 10^3/uL Monocytes # (Auto) 0.8 0.0-1.0 10^3/uL Eosinophils # (Auto) 0.1 0.0-0.3 10^3/uL Basophils # (Auto) 0.1 0.0-0.1 10^3/uL Immature Granulocyte # (Auto) 0.0 0.0-0.1 10^3/uL Prothrombin Time 12.4 12.2-14.7 SEC INR Comment 0.9 0.8-1.4 Activated Partial Thromboplast Time 22 L 24-35 SEC Sodium Level 139 135-145 MMOL/L Potassium Level 4.0 3.6-5.0 MMOL/L Chloride Level 108 H 98-107 MMOL/L Carbon Dioxide Level 19 L 21-32 MMOL/L Anion Gap 12 5-14 MMOL/L Blood Urea Nitrogen 16 7-18 MG/DL Creatinine 2.91 #H 0.60-1.30 MG/DL Estimat Glomerular Filtration Rate 21 BUN/Creatinine Ratio 5 Glucose Level 99 70-105 MG/DL Calcium Level 8.3 L 8.5-10.1 MG/DL Corrected Calcium 8.6 8.5-10.1 MG/DL Magnesium Level 2.0 1.6-2.4 MG/DL Total Bilirubin 0.2 0.1-1.0 MG/DL Aspartate Amino Transf (AST/SGOT) 15 5-34 U/L Alanine Aminotransferase (ALT/SGPT) 12 0-55 U/L Alkaline Phosphatase 60 40-136 U/L Total Creatine Kinase 222 H 29-168 U/L Creatine Kinase MB 1.3 <6.6 NG/ML Myoglobin 127.9 H 10.0-92.0 NG/ML Troponin I < 0.028 <0.028 NG/ML B-Type Natriuretic Peptide 103.5 H <100.0 PG/ML Total Protein 6.4 6.4-8.2 GM/DL Albumin 3.6 3.2-4.5 GM/DL Amylase Level 119 25-125 U/L Lipase 27 8-78 U/L Serum Test, Qualitative NEGATIVE NEGATIVE Serum Alcohol < 10 <10 MG/DL My Orders Orders - LIZRODRIGO Mohan Ed Iv/Invasive Line Start (06/24/23 04:46) Ekg Tracing (06/24/23 04:46) Monitor-Rhythm Ecg Trace Only (06/24/23 04:46) Alcohol (06/24/23 04:46) Hcg,Qualitative Serum (06/24/23 04:46) Cbc With Automated Diff (06/24/23 04:46) Magnesium (06/24/23 04:46) Chest 1 View, Ap/Pa Only (06/24/23 04:46) Ekg Tracing (06/24/23 04:46) Comprehensive Metabolic Panel (06/24/23 04:46) Myoglobin Serum (06/24/23 04:46) Protime With Inr (06/24/23 04:46) Partial Thromboplastin Time (06/24/23 04:46) O2 (06/24/23 04:46) Ed Iv/Invasive Line Start (06/24/23 04:46) Creatine Kinase (06/24/23 04:46) Creatine Kinase Mb (06/24/23 04:46) Lipase (06/24/23 04:46) Amylase (06/24/23 04:46) Bnp El (06/24/23 04:46) Troponin I [place] (06/24/23 04:46) Acetaminophen Tablet (Acetaminophen Ta (06/24/23 05:00) Medications Given in ED Vital Signs/I&O 06/24/23 06/24/23 04:37 05:43 Temp 37.0 37.0 Pulse 69 69 Resp 16 16 B/P (MAP) 139/99 (112) 139/99 Pulse Ox 98 98 O2 Delivery Room Air Room Air Departure Impression Primary Impression: Chest pain Additional Impression: Anxiety Disposition: 01 HOME, SELF-CARE Condition: Stable Departure-Patient Inst. Decision time for Depature: 05:35 Referrals: [facility] (PCP/Family) Primary Care Physician FELECIA FORTUNE MD Patient Instructions: Anxiety, Adult (DC), Chest Pain, Adult ED Add. Discharge Instructions: CONTINUE ALL YOUR MEDICATIONS PRESCRIBED TYLENOL 1 GRAM EVERY 6 HOURS NEEDED FOR PAIN FOLLOW UP WITH DR. FORTUNE AND [facility] IN THE NEXT WEEK FOR FURTHER CARE--CALL TODAY TO SCHEDULE AN APPOINTMENT All discharge instructions reviewed with patient and/or family. Voiced understanding. RODRIGO HILL DO Jun 24, 2023 05:41
[2023-06-24 05:43] VITALS: BP 139/99
--- NOTE | 2023-06-24 06:54 | Diagnostic Imaging Report ---
INDICATION: Chest pain Portable chest 4:46 AM There is a dual-chamber pacemaker with ICD. Heart size and pulmonary vascularity are normal. Lungs are clear. There are no effusions or pneumothoraces. IMPRESSION: No acute abnormalities in the chest. Dictated by: Dictated on workstation # [id number]
== END 2023-06-24 05:50 | disposition home or self-care (01) ==
LOC: EDUNIT# 04:34 → ER 04:35
DX: R07.89 Other chest pain (principal); F41.9 Anxiety disorder, unspecified; E66.9 Obesity, unspecified; Z95.0 Presence of cardiac pacemaker; Z86.74 Personal history of sudden cardiac arrest; Z87.891 Personal history of nicotine dependence; Z68.41 Body mass index [BMI] 40.0-44.9, adult
CPT/HCPCS: 36415; 71045; 80053; 80320; 82150; 82550; 82553; 83690; 83735; 83874; 83880; 84484; 84703; 85025; 85610; 85730; 93005; 93041

== ENCOUNTER 2023-08-13 22:37 | Emergency (ER) | payer MEDICARE, MEDICAID ==
[~2023-08-13] VITALS: Ht 160 cm; Wt 87.5 kg
[~2023-08-13 22:37] MED LIST changes: +DICY-11 PO; -DICY10CA12 PO; +FAMO-356 PO; -FAMO20TA3 PO; +ROPI0.5T37 PO; -ROPI0.5T4 PO
[2023-08-13 23:08] VITALS: BP 156/114
[2023-08-14] MEDS ORDERED: CYCL10TA25 PO (14:32)
[2023-08-14] MEDS ORDERED: METR-145 PO (14:32)
== END 2023-08-14 00:11 | disposition left against medical advice (07) ==
LOC: EDUNIT# 22:37 → ER 22:39
DX: R10.9 Unspecified abdominal pain (principal)
CPT/HCPCS: 99281

== ENCOUNTER 2023-08-14 12:55 | Emergency (ER) | payer MEDICARE, MEDICAID ==
[~2023-08-14] VITALS: Ht 160 cm; Wt 98.8 kg
--- NOTE | 2023-08-14 13:16 | ED Back Pain ---
General Chief Complaint: Back Problems Stated Complaint: LEFT SIDE PAIN Source of Information: Patient Exam Limitations: No Limitations History of Present Illness Date Seen by Provider: Aug 14, 2023 Time Seen by Provider: 13:13 Initial Comments Patient is a 32-year-old female with a history of CHF, defibrillator, blood clot who presents ED with left-sided lower back pain. Pain started yesterday. Described as dull and achy and fairly constant but seems to be worse when she lies down or movement. Intermittent sharp pain. Denies history of kidney stones. History of similar type pain in the past. She has been taken Tylenol. She is currently on a blood thinner history of blood clot and CHF. She does have a pacemaker and defibrillator. She denies of any pain with urination frequent urination, increased urine frequency, bowel or urine incontinence, saddle paresthesia, lower extremity weakness, chest pain, shortness of breath or cough. She denies of any leg swelling. Patient is currently on Eliquis Allergies and Home Medications Allergies Coded Allergies: JIA Inhibitors (Verified Allergy, Severe, 05/22/19) ARB-Angiotensin Receptor Antagonist (Verified Allergy, Severe, 05/22/19) amoxicillin (Verified Allergy, Unknown, 05/28/21) baclofen (Unverified Allergy, Unknown, 05/22/19) ON H&P clavulanic acid (Verified Allergy, Unknown, 05/28/21) phenazopyridine (Unverified Allergy, Unknown, 05/22/19) ON H&P Patient Home Medication List Home Medication List Reviewed: Yes Acetaminophen (Tylenol) 325 Mg Tablet, 650 MG PO Q6H PRN for PAIN-MILD (1-4), (Reported) Entered as Reported by: VEL BAILEY on 05/18/23844 Amlodipine Besylate (Amlodipine Besylate) 10 Mg Tablet, 10 MG PO DAILY, (Reported) Entered as Reported by: VEL BAILEY on 05/18/23844 Apixaban (Eliquis) 5 Mg Tablet, 5 MG PO BID, (Reported) Entered as Reported by: VEL BAILEY on 05/18/23844 Aspirin (Aspirin EC) 81 Mg Tablet.dr, 81 MG PO DAILY, (Reported) Entered as Reported by: VEL BAILEY on 05/18/23844 Biotin (Biotin) 10,000 Mcg Capsule, 10,000 MCG PO BID, (Reported) Entered as Reported by: VEL BAILEY on 05/18/23 0845 Cyclobenzaprine HCl (Cyclobenzaprine HCl) 10 Mg Tablet, 10 MG PO BID Prescribed by: KEYA LENTZ on 08/14/23 1432 Famotidine (Acid Chicken Buyer (FAMOTIDINE)) 20 Mg Tablet, 20 MG PO DAILY, (Reported) Entered as Reported by: VEL BAILEY on 05/18/23 0845 Furosemide (Furosemide) 40 Mg Tablet, 40 MG PO BID, (Reported) Entered as Reported by: VEL BAILEY on 05/18/23 0845 Gabapentin (Neurontin) 300 Mg Capsule, 300 MG PO BID PRN for PAIN Prescribed by: RALPH DELCID on 05/30/232016 Metoprolol Tartrate (Metoprolol Tartrate) 50 Mg Tablet, 50 MG PO BID, (Reported) Entered as Reported by: VEL BAILEY on 05/18/23 0845 Metronidazole (Metronidazole) 500 Mg Tablet, 500 MG PO BID Prescribed by: KEYA LENTZ on 08/14/23 1432 Ropinirole HCl (Ropinirole HCl) 0.5 Mg Tablet, 0.5 MG PO HS, (Reported) Entered as Reported by: VEL BAILEY on 05/18/23 0845 Sacubitril/Valsartan (Entresto 24 mg-26 mg Tablet) 24 Mg-26 Mg Tablet, 1 TAB PO BID, (Reported) Entered as Reported by: VEL BAILEY on 05/18/23 0845 Valacyclovir HCl (Valacyclovir) 1,000 Mg Tablet, 1,000 MG PO TID Prescribed by: RALPH DELCID on 05/30/232016 Review of Systems Constitutional: No chills, No diaphoresis Respiratory: No cough, No dyspnea on exertion Cardiovascular: No chest pain Gastrointestinal: No abdominal pain, No diarrhea, No nausea, No vomiting Genitourinary: No decreased output, No discharge Musculoskeletal: back pain; No joint pain Skin: No change in color All Other Systems Reviewed Negative Unless Noted: Yes Past [id number]-[id number]-Ysiktu Hx Patient Social History Tobacco Use?: No Substance use?: No Alcohol Use?: No Immunizations Up To Date Tetanus Booster (TDap): Unknown PED Vaccines UTD: Yes First/Initial COVID19 Vaccinat: X3 Second COVID19 Vaccination [place]: Pfizer Third COVID19 Vaccination Date: Pfizer Seasonal Allergies Seasonal Allergies: No Past Medical History Surgery/Hospitalization HX: DEFIBRILLATOR, PACEMAKER, HEART FAILURE, HTN, HIGH CHOLESTEROL, CKD DENIES SURG. Surgeries: Yes (PACER/DEFIB 2014; DEFIB PLACED 05/10/19. PEG TUBE-RE MOVED;UTERINE ABLATION) Abdominal, Section, Defibrillator, Gallbladder, Hysterectomy, Pacemaker Respiratory: Yes (ARDS-CODED; PNEUMOTHORAX 06/2015) Pneumonia, Chronic Bronchitis Currently Using CPAP: No Currently Using BIPAP: No Cardiac: Yes (PULMONARY EDEMA/CARDIAC CAUSE-R/T ATRIAL THROMBUS; CARDIAC ARREST;V-FIB ) Cardiomyopathy, Endocarditis, Hypertension, Valvular Heart Disease Neurological: Yes (encephalopathy-hypoxia, anoxic brain injury; POOR MEMORY;SLURRED SPEECH) Reproductive Disorders: Yes (ENDOMETRIAL ABLATION) Female Reproductive Disorders: Menstrual Problems Sexually Transmitted Disease: No Genitourinary: Yes (BASELINE CREATININE BETWEEN 2 & 3) Renal Failure Gastrointestinal: Yes Gastroesophageal Reflux Musculoskeletal: Yes (GAIT DISTURBANCE) Endocrine: No (OBESITY) HEENT: No Loss of Vision: Denies Hearing Impairment: Denies Cancer: No Psychosocial: Yes (SUBSTANCE ABUSE) Anxiety, Bipolar, Depression Integumentary: No Blood Disorders: Yes (ANEMIA) Family Medical History Patient reports no known family medical history. 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 SHE HAS HAD A DEFIBRILLATOR IN PLACE SINCE AGE 24. T.E.E. 05/18/[address] FORTUNE: -SEVERE DIFFUSE HYPOKINESIA OF LEFT VENTRICLE -4 CHAMBER DILATION -EF 20% -NO CLOTS/THROMBUS -NO VEGETATIONS -MODERATE MITRAL REGURGITATION. Physical Exam Vital Signs Vital Signs - First Documented 08/14/23 13:08 Temp 35.4 Pulse 85 B/P (MAP) 149/114 (126) Pulse Ox 100 O2 Delivery Room Air Capillary Refill : Height, Weight, BMI Height: 5'3.00" Weight: 234lbs. 0oz. 106.167057do; 34.00 BMI Method:Stated General Appearance: No Apparent Distress, WD/WN HEENT: PERRL/EOMI, TMs Normal, Normal ENT Inspection, Pharynx Normal Neck: Full Range of Motion, Normal Inspection, Non Tender, Supple Cardiovascular: Regular Rate, Rhythm, No Edema, No Gallop, No JVD, No Murmur Respiratory: Chest Non Tender, Lungs Clear, Normal Breath Sounds, No Accessory Muscle Use, No Respiratory Distress Gastrointestinal: Normal Bowel Sounds, No Organomegaly, No Pulsatile Mass, Non Tender Back: CVA Tenderness (L) Extremity: Normal Capillary Refill, Normal Inspection, Normal Range of Motion Neurologic/Psychiatric: Alert, Oriented x3, No Motor/Sensory Deficits, Normal Mood/Affect Progress/Results/Core Measures Results/Orders Lab Results Laboratory Tests Test 08/14/23 13:19 08/14/23 13:58 Range/Units White Blood Count 5.6 4.3-11.0 10^3/uL Red Blood Count 4.55 3.80-5.11 10^6/uL Hemoglobin 13.0 11.5-16.0 g/dL Hematocrit 41 35-52 % Mean Corpuscular Volume 91 80-99 fL Mean Corpuscular Hemoglobin 29 25-34 pg Mean Corpuscular Hemoglobin Concent 31 L 32-36 g/dL Red Cell Distribution Width 15.3 H 10.0-14.5 % Platelet Count 320 130-400 10^3/uL Mean Platelet Volume 9.0 9.0-12.2 fL Immature Granulocyte % (Auto) 0 % Neutrophils (%) (Auto) 51 42-75 % Lymphocytes (%) (Auto) 40 12-44 % Monocytes (%) (Auto) 7 0-12 % Eosinophils (%) (Auto) 2 0-10 % Basophils (%) (Auto) 1 0-10 % Neutrophils # (Auto) 2.9 1.8-7.8 10^3/uL Lymphocytes # (Auto) 2.2 1.0-4.0 10^3/uL Monocytes # (Auto) 0.4 0.0-1.0 10^3/uL Eosinophils # (Auto) 0.1 0.0-0.3 10^3/uL Basophils # (Auto) 0.0 0.0-0.1 10^3/uL Immature Granulocyte # (Auto) 0.0 0.0-0.1 10^3/uL Sodium Level 138 135-145 MMOL/L Potassium Level 4.5 3.6-5.0 MMOL/L Chloride Level 107 98-107 MMOL/L Carbon Dioxide Level 20 L 21-32 MMOL/L Anion Gap 11 5-14 MMOL/L Blood Urea Nitrogen 29 H 7-18 MG/DL Creatinine 2.64 H 0.60-1.30 MG/DL Estimat Glomerular Filtration Rate 24 BUN/Creatinine Ratio 11 Glucose Level 85 70-105 MG/DL Calcium Level 8.7 8.5-10.1 MG/DL Corrected Calcium 9.1 8.5-10.1 MG/DL Total Bilirubin 0.3 0.1-1.0 MG/DL Aspartate Amino Transf (AST/SGOT) 26 5-34 U/L Alanine Aminotransferase (ALT/SGPT) 22 0-55 U/L Alkaline Phosphatase 62 40-136 U/L Total Protein 6.4 6.4-8.2 GM/DL Albumin 3.5 3.2-4.5 GM/DL Lipase 40 8-78 U/L Urine Color YELLOW Urine Clarity CLEAR Urine pH 5.5 5-9 Urine Specific [place] >=1.030 1.016-1.022 Urine Protein 3+ H NEGATIVE Urine Glucose (UA) NEGATIVE NEGATIVE Urine Ketones NEGATIVE NEGATIVE Urine Nitrite NEGATIVE NEGATIVE Urine Bilirubin NEGATIVE NEGATIVE Urine Urobilinogen 0.2 < = 1.0 MG/DL Urine Leukocyte Esterase NEGATIVE NEGATIVE Urine RBC (Auto) NEGATIVE NEGATIVE Urine RBC NONE /HPF Urine WBC 5-10 H /HPF Urine Squamous Epithelial Cells 5-10 /HPF Urine Crystals NONE /LPF Urine Bacteria TRACE /HPF Urine Casts NONE /LPF Urine Mucus NEGATIVE /LPF Urine Trichomonas FEW H /HPF Urine Culture Indicated YES Urine Opiates Screen NEGATIVE NEGATIVE Urine Oxycodone Screen NEGATIVE NEGATIVE Urine Methadone Screen NEGATIVE NEGATIVE Urine Propoxyphene Screen NEGATIVE NEGATIVE Urine Barbiturates Screen NEGATIVE NEGATIVE Ur Tricyclic Antidepressants Screen NEGATIVE NEGATIVE Urine Phencyclidine Screen NEGATIVE NEGATIVE Urine Amphetamines Screen POSITIVE H NEGATIVE Urine Methamphetamines Screen POSITIVE H NEGATIVE Urine Benzodiazepines Screen NEGATIVE NEGATIVE Urine Cocaine Screen NEGATIVE NEGATIVE Urine Cannabinoids Screen NEGATIVE NEGATIVE My Orders Orders - MATY BLANCHARD Ua Culture If Indicated (08/14/23 13:01) Cbc With Automated Diff (08/14/23 13:19) Comprehensive Metabolic Panel (08/14/23 13:19) Lipase (08/14/23 13:19) Drug Screen Stat (Urine) (08/14/23 13:28) Urine Culture (08/14/23 13:58) Neis Robby Dna Urine Test (08/14/23 14:32) Chlamydia Trachomatis Urine (08/14/23 14:32) Vital Signs/I&O 08/14/23 13:08 Temp 35.4 Pulse 85 B/P (MAP) 149/114 (126) Pulse Ox 100 O2 Delivery Room Air Departure Communication (PCP) Reviewed previous ER visit, H&P, lab testing. Patient presents ED with left- sided lower back pain. She has no pain with urination, frequent urination, dark urine, vaginal bleeding, abdominal pain, chest pain or shortness of breath. History of CHF, chronic kidney disease. Currently on anticoagulant. Does have a pacemaker defibrillator. History of similar type pain in the past. Patient with left lower lumbar paraspinal muscle tenderness. She states she has taken Flexeril in the past with improvement. Appears to be worse with positional changes. Vital signs were stable. CBC, CMP, lipase urinalysis was ordered. Urinalysis with white blood cells and trichomonas. No evidence of hematuria suggesting kidney stone versus ureterolithiasis. CBC, CMP was grossly unremarkable. Chronic kidney disease with stable kidney function creatinine of 2.64, GFR 24. Patient is not hypoxic or tachycardic. She has no anterior chest wall tenderness. Soft abdomen without tenderness. No rib tenderness. She had no thoracic or lumbar midline tenderness. Pain is worse with side to side movement and bending. She had a CT scan of her thoracic spine in May which was unremarkable. Similar type pain today. Patient afebrile today. Patient refused anything for pain. She was requesting something for muscle spasming. She has taken this in the past with improvement of pain. Did discuss urinalysis result. Did add chlamydia gonorrhea and was not treated for chlamydia or gonorrhea at this time. Waiting cultures. Make sure all partners are treated for trichomonas. No sexual intercourse for the next 7 days. Recommend follow-up your PCP in 2 days for reevaluation. If any worsening symptoms return back to ED. May use a heating pad. Recommend lidocaine patches Impression Primary Impression: Back strain Additional Impression: Trichomonas infection Disposition: 01 HOME, SELF-CARE Condition: Stable Departure-Patient Inst. Decision time for Depature: 14:31 Referrals: [facility] (PCP/Family) Primary Care Physician Patient Instructions: Back Muscle Strain (DC) Add. Discharge Instructions: Take antibiotics for urinary tract infection. Muscle laxer for muscle spasming. Follow-up with her PCP in 2 to 3 days for reevaluation. All discharge instructions reviewed with patient and/or family. Voiced unde rstanding. Scripts Cyclobenzaprine HCl (Cyclobenzaprine HCl) 10 Mg Tablet 10 MG PO BID, #14 TAB Prov: MATY BLANCHARD 08/14/23 Metronidazole (Metronidazole) 500 Mg Tablet 500 MG PO BID for 7 Days, #14 TAB Prov: MATY BLANCHARD 08/14/23 MATY BLANCHARD Aug 14, 2023 13:16
[2023-08-14 13:27] LABS: BASOPHILS % (AUTO) 1 % (0-10); EOSINOPHILS # (AUTO) 0.1 10^3/uL (0.0-0.3); EOSINOPHILS % (AUTO) 2 % (0-10); HEMATOCRIT 41 % (35-52); LYMPHOCYTES # (AUTO) 2.2 10^3/uL (1.0-4.0); LYMPHOCYTES % (AUTO) 40 % (12-44); MEAN CORPUSCULAR HEMOGLOBIN 29 pg (25-34); MEAN CORPUSCULAR HGB CONC 31 g/dL (32-36); MEAN CORPUSCULAR VOLUME 91 fL (80-99); MONOCYTES # (AUTO) 0.4 10^3/uL (0.0-1.0); MONOCYTES % (AUTO) 7 % (0-12); NEUTROPHILS # (AUTO) 2.9 10^3/uL (1.8-7.8); NEUTROPHILS % (AUTO) 51 % (42-75); PLATELET COUNT 320 10^3/uL (130-400); WHITE BLOOD COUNT 5.6 10^3/uL (4.3-11.0)
[2023-08-14 13:38] LABS: ALBUMIN 3.5 GM/DL (3.2-4.5); POTASSIUM 4.5 MMOL/L (3.6-5.0)
[2023-08-14 13:39] LABS: CALCIUM 8.7 MG/DL (8.5-10.1)
[2023-08-14 13:40] LABS: TOTAL PROTEIN 6.4 GM/DL (6.4-8.2)
[2023-08-14 13:42] LABS: BILIRUBIN,TOTAL 0.3 MG/DL (0.1-1.0)
[2023-08-14 13:44] LABS: CREATININE SERUM 2.64 MG/DL (0.60-1.30)
[2023-08-14 14:12] LABS: BACTERIA,URINE TRACE /HPF; BILIRUBIN,URINE NEGATIVE (NEGATIVE); CLARITY,URINE CLEAR; COLOR,URINE YELLOW; GLUCOSE, URINE (UA) NEGATIVE (NEGATIVE); KETONES,URINE NEGATIVE (NEGATIVE); LEUKOCYTE ESTERASE ,URINE NEGATIVE (NEGATIVE); NITRITE,URINE NEGATIVE (NEGATIVE); PH,URINE 5.5 (5-9); PROTEIN,URINE 3+ (NEGATIVE)
[2023-08-14 14:13] LABS: TRICHOMONAS,URINE FEW /HPF
[2023-08-14] MEDS ORDERED: METR-145 PO (14:32)
[2023-08-14] MEDS ORDERED: CYCL10TA25 PO (14:32)
[2023-08-14 14:41] LABS: AMPHETAMINE SCREEN, URINE POSITIVE (NEGATIVE); BARBITURATE SCREEN URINE NEGATIVE (NEGATIVE); BENZODIAZEPINES SCREEN URINE NEGATIVE (NEGATIVE); CANNABINOID SCREEN, URINE NEGATIVE (NEGATIVE); COCAINE SCREEN URINE NEGATIVE (NEGATIVE); METHADONE STAT NEGATIVE (NEGATIVE); OPIATE SCREEN URINE NEGATIVE (NEGATIVE); OXYCODONE STAT NEGATIVE (NEGATIVE); PROPOXYPHENE STAT NEGATIVE (NEGATIVE); TRICYCLIC ANTIDEPRESSANTS SCRE NEGATIVE (NEGATIVE)
[2023-08-14 14:44] VITALS: BP 152/110
== END 2023-08-14 14:44 | disposition home or self-care (01) ==
LOC: EDUNIT# 12:55 → ER 12:57
DX: S39.012A Strain of muscle, fascia and tendon of lower back, initial encounter (principal); A59.9 Trichomoniasis, unspecified; I13.0 Hypertensive heart and chronic kidney disease with heart failure and stage 1 through stage 4 chronic kidney disease, or unspecified chronic kidney disease; I50.9 Heart failure, unspecified; N18.9 Chronic kidney disease, unspecified; I74.9 Embolism and thrombosis of unspecified artery; E66.9 Obesity, unspecified; Z79.01 Long term (current) use of anticoagulants; Z95.0 Presence of cardiac pacemaker; Z88.0 Allergy status to penicillin; Z68.38 Body mass index [BMI] 38.0-38.9, adult; X58.XXXA Exposure to other specified factors, initial encounter
CPT/HCPCS: 36415; 80053; 80306; 81000; 83690; 85025; 87088; 87491; 87591

== ENCOUNTER → 2023-08-16 | Outpatient (CLI) | payer MEDICARE, MEDICAID ==
[~2023-08-16] MED LIST changes: +METR-145 PO
[2023-08-16 13:01] LABS: HEMATOCRIT 41 % (35-52); HEMOGLOBIN 13.4 g/dL (11.5-16.0); MEAN CORPUSCULAR HEMOGLOBIN 30 pg (25-34); MEAN CORPUSCULAR HGB CONC 33 g/dL (32-36); MEAN CORPUSCULAR VOLUME 91 fL (80-99); MEAN PLATELET VOLUME 8.6 fL (9.0-12.2); PLATELET COUNT 303 10^3/uL (130-400); WHITE BLOOD COUNT 6.2 10^3/uL (4.3-11.0)
[2023-08-16 13:22] LABS: CALCIUM 8.6 MG/DL (8.5-10.1); CREATININE SERUM 2.66 MG/DL (0.60-1.30); MAGNESIUM 1.9 MG/DL (1.6-2.4); POTASSIUM 4.6 MMOL/L (3.6-5.0)
== END ==
LOC: LAB 12:51
PROVIDERS: ATTEND Internal Medicine Cardiovascular Disease
DX: T82.190A Other mechanical complication of cardiac electrode, initial encounter (principal)
CPT/HCPCS: 36415; 80048; 83735; 85027

== ENCOUNTER 2023-08-17 16:37 | Emergency (ER) | payer MEDICARE, MEDICAID ==
[~2023-08-17] VITALS: Ht 160 cm; Wt 97.0 kg
[2023-08-17] MEDS ORDERED: ONDANSETRON INJECTION 4 MG/2 ML (SDV) IVP ONE (17:00)
[2023-08-17] MEDS ORDERED: morphine INJ 4 MG/ML 1 ML (VIAL/SYRINGE) IVP ONE (17:00)
--- NOTE | 2023-08-17 17:03 | ED Abdominal Pain ---
General Chief Complaint: Abdominal/GI Problems Stated Complaint: HEADACHE, LOWER ADB PAIN Nursing Triage Note: PT AMB TO RM 10 WITH C/O LLQ PAIN X2 DAYS AND A POUNDING HEADACHE Source of Information: Patient Exam Limitations: No Limitations (MATY BLANCHARD) History of Present Illness Date Seen by Provider: Aug 17, 2023 Time Seen by Provider: 17:01 Initial Comments Patient is a 32-year-old female with a extensive medical history such as CHF, pacemaker who presents ED with left lower quad abdominal pain. Pain is described as squeezing intermittent over the past 2 days. Pain does not radiate. She reports no history of similar symptoms. Denies history of kidney stones. No pain with urination frequent urination or dark urine. History of hysterectomy. She has been taken Tylenol. She has associated left-sided frontal head pain over the past 2 days as well. Rates pain 8 out of 10. History of migraines states feels very similar. Phonophobia. No vomiting. She has no neck pain, fever, chest pain, cough, shortness of breath, unilateral muscle weakness or sensory changes. Patient denies the worst headache of her life. (MATY BLANCHARD) Allergies and Home Medications Allergies Coded Allergies: JIA Inhibitors (Verified Allergy, Severe, 05/22/19) ARB-Angiotensin Receptor Antagonist (Verified Allergy, Severe, 05/22/19) amoxicillin (Verified Allergy, Unknown, 05/28/21) baclofen (Unverified Allergy, Unknown, 05/22/19) ON H&P clavulanic acid (Verified Allergy, Unknown, 05/28/21) phenazopyridine (Unverified Allergy, Unknown, 05/22/19) ON H&P Patient Home Medication List Home Medication List Reviewed: Yes (MATY BLANCHARD) Acetaminophen (Tylenol) 325 Mg Tablet, 650 MG PO Q6H PRN for PAIN-MILD (1-4), (Reported) Entered as Reported by: VEL BAILEY on 05/18/23 0845 Amlodipine Besylate (Amlodipine Besylate) 10 Mg Tablet, 10 MG PO DAILY, (Reported) Entered as Reported by: VEL BAILEY on 05/18/23 0845 Apixaban (Eliquis) 5 Mg Tablet, 5 MG PO BID, (Reported) Entered as Reported by: VEL BAILEY on 05/18/23 0845 Aspirin (Aspirin EC) 81 Mg Tablet.dr, 81 MG PO DAILY, (Reported) Entered as Reported by: VEL BAILEY on 05/18/23844 Biotin (Biotin) 10,000 Mcg Capsule, 10,000 MCG PO BID, (Reported) Entered as Reported by: VEL BAILEY on 05/18/23 0845 Cyclobenzaprine HCl (Cyclobenzaprine HCl) 10 Mg Tablet, 10 MG PO BID Prescribed by: KEYA LENTZ on 08/14/23 143 Famotidine (Acid User Interface Artist (FAMOTIDINE)) 20 Mg Tablet, 20 MG PO DAILY, (Reported) Entered as Reported by: VEL BAILEY on 05/18/23844 Furosemide (Furosemide) 40 Mg Tablet, 40 MG PO BID, (Reported) Entered as Reported by: VEL BAILEY on 05/18/23 08 Gabapentin (Neurontin) 300 Mg Capsule, 300 MG PO BID PRN for PAIN Prescribed by: RALPH DELCID on 05/30/232016 Metoprolol Tartrate (Metoprolol Tartrate) 50 Mg Tablet, 50 MG PO BID, (Reported) Entered as Reported by: VEL BAILEY on 05/18/23844 Metronidazole (Metronidazole) 500 Mg Tablet, 500 MG PO BID Prescribed by: KEYA LENTZ on 08/14/23 143 Ropinirole HCl (Ropinirole HCl) 0.5 Mg Tablet, 0.5 MG PO HS, (Reported) Entered as Reported by: VEL BAILEY on 05/18/23 0845 Sacubitril/Valsartan (Entresto 24 mg-26 mg Tablet) 24 Mg-26 Mg Tablet, 1 TAB PO BID, (Reported) Entered as Reported by: VEL BAILEY on 05/18/23844 Valacyclovir HCl (Valacyclovir) 1,000 Mg Tablet, 1,000 MG PO TID Prescribed by: RALPH DELCID on 05/30/232016 Review of Systems Review of Systems Constitutional: No chills, No malaise EENTM: No Double Vision, No Eye Pain Respiratory: Denies Cough, Denies Orthopnea Cardiovascular: Denies Chest Pain Gastrointestinal: Abdominal Pain; Denies Diarrhea, Denies Nausea, Denies Vomiting Genitourinary: Denies Burning, Denies Discharge, Denies Drainage, Denies Frequency Musculoskeletal: No back pain Skin: No change in color, No change in hair/nails (MATY BLANCHARD) All Other Systems Reviewed Negative Unless Noted: Yes (MATY BLANCHARD) Past Tauvvnq-Wilpkg-Kkccnm Hx Patient Social History Tobacco Use?: No Use of E-Cig and/or Vaping dev: No Substance use?: No Alcohol Use?: No Pt feels they are or have been: No (MATY BLANCHARD) Immunizations Up To Date Tetanus Booster (TDap): Unknown PED Vaccines UTD: Yes First/Initial COVID19 Vaccinat: X3 Second COVID19 Vaccination Adair: Pfizer Third COVID19 Vaccination Date: Pfizer (MATY BLANCHARD) Seasonal Allergies Seasonal Allergies: No (MATY BLANCHARD) Past Medical History Surgery/Hospitalization HX: DEFIBRILLATOR, PACEMAKER, HEART FAILURE, HTN, HIGH CHOLESTEROL, CKD DENIES SURG. Surgeries: Yes (PACER/DEFIB 2014; DEFIB PLACED 05/10/19. PEG TUBE- REMOVED;UTERINE ABLATION) Abdominal, Section, Defibrillator, Gallbladder, Hysterectomy, Pacemaker Respiratory: Yes (ARDS-CODED; PNEUMOTHORAX 06/2015) Pneumonia, Chronic Bronchitis Currently Using CPAP: No Currently Using BIPAP: No Cardiac: Yes (PULMONARY EDEMA/CARDIAC CAUSE-R/T ATRIAL THROMBUS; CARDIAC ARREST;V-FIB ) Cardiomyopathy, Endocarditis, Hypertension, Valvular Heart Disease Neurological: Yes (encephalopathy-hypoxia, anoxic brain injury; POOR MEMORY;SLURRED SPEECH) Reproductive Disorders: Yes (ENDOMETRIAL ABLATION) Female Reproductive Disorders: Menstrual Problems Sexually Transmitted Disease: No Genitourinary: Yes (BASELINE CREATININE BETWEEN 2 & 3) Renal Failure Gastrointestinal: Yes Gastroesophageal Reflux Musculoskeletal: Yes (GAIT DISTURBANCE) Endocrine: No (OBESITY) HEENT: No Loss of Vision: Denies Hearing Impairment: Denies Cancer: No Psychosocial: Yes (SUBSTANCE ABUSE) Anxiety, Bipolar, Depression Integumentary: No Blood Disorders: Yes (ANEMIA) (MATY BLANCHARD) Family Medical History Patient reports no known family medical history. 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 SHE HAS HAD A DEFIBRILLATOR IN PLACE SINCE AGE 24. T.E.E. 05/18/[address] FORTUNE: -SEVERE DIFFUSE HYPOKINESIA OF LEFT VENTRICLE -4 CHAMBER DILATION -EF 20% -NO CLOTS/THROMBUS -NO VEGETATIONS -MODERATE MITRAL REGURGITATION. (MATY BLANCHARD) Physical Exam Vital Signs Vital Signs - First Documented 08/17/23 08/17/23 16:50 18:32 Temp 37.0 Pulse 71 Resp 14 B/P (MAP) 137/87 (104) Pulse Ox 98 O2 Delivery Room Air (RALPH LÓPEZ MD) Vital Signs Capillary Refill : (MATY BLANCHARD) Height/Weight/BMI Height: 5'3.00" Weight: 234lbs. 0oz. 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2 fL Immature Granulocyte % (Auto) 0 % Neutrophils (%) (Auto) 46 42-75 % Lymphocytes (%) (Auto) 42 12-44 % Monocytes (%) (Auto) 8 0-12 % Eosinophils (%) (Auto) 2 0-10 % Basophils (%) (Auto) 1 0-10 % Neutrophils # (Auto) 3.8 1.8-7.8 10^3/uL Lymphocytes # (Auto) 3.5 1.0-4.0 10^3/uL Monocytes # (Auto) 0.7 0.0-1.0 10^3/uL Eosinophils # (Auto) 0.2 0.0-0.3 10^3/uL Basophils # (Auto) 0.1 0.0-0.1 10^3/uL Immature Granulocyte # (Auto) 0.0 0.0-0.1 10^3/uL Sodium Level 137 135-145 MMOL/L Potassium Level 3.9 3.6-5.0 MMOL/L Chloride Level 105 98-107 MMOL/L Carbon Dioxide Level 21 21-32 MMOL/L Anion Gap 11 5-14 MMOL/L Blood Urea Nitrogen 25 H 7-18 MG/DL Creatinine 2.60 H 0.60-1.30 MG/DL Estimat Glomerular Filtration Rate 24 BUN/Creatinine Ratio 10 Glucose Level 104 70-105 MG/DL Calcium Level 8.7 8.5-10.1 MG/DL Corrected Calcium 9.1 8.5-10.1 MG/DL Total Bilirubin 0.2 0.1-1.0 MG/DL Aspartate Amino Transf (AST/SGOT) 16 5-34 U/L Alanine Aminotransferase (ALT/SGPT) 18 0-55 U/L Alkaline Phosphatase 56 40-136 U/L Total Protein 6.3 L 6.4-8.2 GM/DL Albumin 3.5 3.2-4.5 GM/DL Lipase 31 8-78 U/L Urine Color YELLOW Urine Clarity CLEAR Urine pH 6.0 5-9 Urine Specific [place] 1.020 1.016-1.022 Urine Protein 3+ H NEGATIVE Urine Glucose (UA) NEGATIVE NEGATIVE Urine Ketones NEGATIVE NEGATIVE Urine Nitrite NEGATIVE NEGATIVE Urine Bilirubin NEGATIVE NEGATIVE Urine Urobilinogen 0.2 < = 1.0 MG/DL Urine Leukocyte Esterase 1+ H NEGATIVE Urine RBC (Auto) TRACE H NEGATIVE Urine RBC 5-10 H /HPF Urine WBC 5-10 H /HPF Urine Squamous Epithelial Cells >50 H /HPF Urine Crystals NONE /LPF Urine Bacteria FEW H /HPF Urine Casts PRESENT /LPF Urine Hyaline Casts 0-2 H /LPF Urine Mucus SMALL H /LPF Urine Trichomonas FEW H /HPF Urine Culture Indicated YES Urine Test NEGATIVE NEGATIVE (RALPH LÓPEZ MD) Vital Signs/I&O 08/17/23 08/17/23 16:50 18:32 Temp 37.0 Pulse 71 61 Resp 14 14 B/P (MAP) 137/87 (104) 115/90 Pulse Ox 98 94 O2 Delivery Room Air Room Air (RALPH LÓPEZ MD) Blood Pressure Mean: 104 Departure Communication (PCP) Reviewed previous ER visits, H&P, lab testing. Patient has been seen here multiple times over the past year. She was seen here few days ago for low back pain and was diagnosed with a muscle strain and trichomonas and discharged with muscle relaxer and Flagyl. She did not pharmacy picking technician her prescription. Today she is having left lower quad abdominal pain. No current lower back discomfort. No pain with urination fever chills vomiting diarrhea. She does also report a headache on the left side of her head. Phonophobia. No vomiting or visual changes. She has no focal neural deficits. History of migraines states this feels very similar. She has been taken Tylenol without much improvement. De nies worst headache of her life. No meningeal signs. No chest pain, shortness of breath or cough. Urinalysis CBC, CMP, lipase was ordered. Differential diagnosis urolithiasis, nephrolithiasis, cystitis, PID. She denies of any vaginal bleeding or vaginal discharge. History of hysterectomy. She received a dose of morphine with improvement of pain. She received Compazine and Benadryl for her migraine which improved. Urinalysis trace leukocytes, red blood cells and white blood cells but greater than 50 squamous cells. Likely more contamination. Her urinalysis on the culture gram-positive mixed jakub which is likely more contamination. No susceptibility at this time. She did test positive for trichomonas. CBC, CMP grossly unremarkable. Chronic kidney disease stable creatinine and GFR. Normal white blood count. CT of the pelvis did not note any acute abnormality in the left lower quadrant. Discussed these results with patient. At this time recommend conservative treatment. Discussed follow-up with your PCP in 2 to 3 days for reevaluation of your symptoms. Recommend taking Flagyl. She has scheduled follow-up next week in [place] for cardiac follow-up. If any worsening symptoms to return back to ED. If any vaginal discharge or continue pelvic pain recommend pelvic swabs. She does not want to proceed at this time (MATY BLANCHARD) Impression Primary Impression: Abdominal wall pain Additional Impression: Headache Disposition: HOME, SELF-CARE Condition: Stable Departure-Patient Inst. Decision time for Depature: 18:12 (MATY BLANCHARD) Referrals: [facility] [place] (PCP/Family) Primary Care Physician Patient Instructions: Abdominal Pain, Adult ED ATTENDING PHYSICIAN NOTE: I was physically present as attending physician in the emergency department during the care of this patient, but I was not directly involved in the decision making or delivery of care for this patient. (RALPH LÓPEZ MD) MATY BLANCHARD Aug 17, 2023 17:03 RALPH LÓPEZ MD Aug 18, 2023 15:53
[2023-08-17 17:16] LABS: BASOPHILS # (AUTO) 0.1 10^3/uL (0.0-0.1); BASOPHILS % (AUTO) 1 % (0-10); EOSINOPHILS # (AUTO) 0.2 10^3/uL (0.0-0.3); EOSINOPHILS % (AUTO) 2 % (0-10); HEMATOCRIT 42 % (35-52); HEMOGLOBIN 13.5 g/dL (11.5-16.0); LYMPHOCYTES # (AUTO) 3.5 10^3/uL (1.0-4.0); LYMPHOCYTES % (AUTO) 42 % (12-44); MEAN CORPUSCULAR HEMOGLOBIN 29 pg (25-34); MEAN CORPUSCULAR HGB CONC 32 g/dL (32-36); MEAN CORPUSCULAR VOLUME 90 fL (80-99); MEAN PLATELET VOLUME 8.8 fL (9.0-12.2); MONOCYTES # (AUTO) 0.7 10^3/uL (0.0-1.0); MONOCYTES % (AUTO) 8 % (0-12); NEUTROPHILS # (AUTO) 3.8 10^3/uL (1.8-7.8); NEUTROPHILS % (AUTO) 46 % (42-75); PLATELET COUNT 320 10^3/uL (130-400); WHITE BLOOD COUNT 8.1 10^3/uL (4.3-11.0)
[2023-08-17 17:28] LABS: ALBUMIN 3.5 GM/DL (3.2-4.5); POTASSIUM 3.9 MMOL/L (3.6-5.0)
[2023-08-17 17:29] LABS: CALCIUM 8.7 MG/DL (8.5-10.1)
[2023-08-17 17:31] LABS: TOTAL PROTEIN 6.3 GM/DL (6.4-8.2)
[2023-08-17 17:33] LABS: BILIRUBIN,TOTAL 0.2 MG/DL (0.1-1.0)
[2023-08-17 17:34] LABS: CREATININE SERUM 2.6 MG/DL (0.60-1.30)
[2023-08-17 17:35] LABS: CLARITY,URINE CLEAR; COLOR,URINE YELLOW; GLUCOSE, URINE (UA) NEGATIVE (NEGATIVE); PROTEIN,URINE 3+ (NEGATIVE)
[2023-08-17 17:36] LABS: BACTERIA,URINE FEW /HPF; BILIRUBIN,URINE NEGATIVE (NEGATIVE); HYALINE CASTS, URINE 0-2 /LPF; KETONES,URINE NEGATIVE (NEGATIVE); LEUKOCYTE ESTERASE ,URINE 1+ (NEGATIVE); NITRITE,URINE NEGATIVE (NEGATIVE); SQUAMOUS EPITHELIAL CELL,UR >50 /HPF; TRICHOMONAS,URINE FEW /HPF
--- NOTE | 2023-08-17 17:36 | Diagnostic Imaging Report ---
EXAMINATION: CT abdomen and pelvis without contrast. TECHNIQUE: Multiple contiguous axial images were obtained through the abdomen and pelvis without the use of intravenous contrast. All CT scans use one or more of the following dose optimizing techniques: automated exposure control, MA and/or KvP adjustment based on patient size and exam type or iterative reconstruction. HISTORY: Left lower quadrant pain, flank pain. COMPARISON: 11/17/2020. FINDINGS: Limited views of the lower thorax show pacemaker leads. The liver is normal without focal lesion. There is no biliary ductal dilation. Gallbladder is absent. Pancreas is normal. Spleen is normal. Adrenal glands are normal. The kidneys are normal. There is no hydronephrosis. Urinary bladder is normal. There is no renal or ureteral stone. There are phleboliths in the pelvis. Bowel is normal in caliber without obstruction or inflammation. The appendix is normal. No free fluid or air. No abdominal or pelvic lymphadenopathy. Aorta is normal in caliber without aneurysm. There is no suspicious osseus lesion. IMPRESSION: No renal or ureteral stone. Dictated by: Dictated on workstation # [id number]
[2023-08-17] MEDS ORDERED: PROCHLORPERAZINE INJ 10 MG/2ML VIAL IV ONE (18:15)
[2023-08-17] MEDS ORDERED: diphenhydrAMINE INJ 50 MG/ML VIAL IVP ONE (18:15)
[2023-08-17 18:32] VITALS: BP 115/90
== END 2023-08-17 18:33 | disposition home or self-care (01) ==
LOC: EDUNIT# 16:37 → ER 16:39
DX: R10.32 Left lower quadrant pain (principal); R51.9 Headache, unspecified; E66.9 Obesity, unspecified; Z86.69 Personal history of other diseases of the nervous system and sense organs; Z90.710 Acquired absence of both cervix and uterus; Z87.891 Personal history of nicotine dependence; Z68.37 Body mass index [BMI] 37.0-37.9, adult
CPT/HCPCS: 36415; 74176; 80053; 81000; 83690; 84703; 85025; 87088

== ENCOUNTER 2023-08-19 00:31 | Emergency (ER) | payer MEDICARE, MEDICAID ==
[~2023-08-19] VITALS: Ht 160 cm; Wt 104.0 kg
[2023-08-19] MEDS ORDERED: ASPIRIN 81 MG CHEWABLE TABLET PO ONE (00:45)
--- NOTE | 2023-08-19 00:48 | ED Chest Pain ---
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 Pain started just under an hour prior to arrival. The pain is in the center of her chest, does not radiate anywhere. Denies any fever, shortness of breath, cough, nausea, vomiting, weakness, numbness, or any other concerns. She took her morning medicines. She has a scheduled appointment for pacemaker/defibrillator replacement next week at [facility]. Allergies and Home Medications Allergies Coded Allergies: JIA Inhibitors (Verified Allergy, Severe, 05/22/19) ARB-Angiotensin Receptor Antagonist (Verified Allergy, Severe, 05/22/19) amoxicillin (Verified Allergy, Unknown, 05/28/21) baclofen (Unverified Allergy, Unknown, 05/22/19) ON H&P clavulanic acid (Verified Allergy, Unknown, 05/28/21) phenazopyridine (Unverified Allergy, Unknown, 05/22/19) ON H&P Patient Home Medication List Home Medication List Reviewed: Yes Acetaminophen (Tylenol) 325 Mg Tablet, 650 MG PO Q6H PRN for PAIN-MILD (1-4), (Reported) Entered as Reported by: VEL BAILEY on 05/18/23844 Amlodipine Besylate (Amlodipine Besylate) 10 Mg Tablet, 10 MG PO DAILY, (Reported) Entered as Reported by: VEL BAILEY on 05/18/23844 Apixaban (Eliquis) 5 Mg Tablet, 5 MG PO BID, (Reported) Entered as Reported by: VEL BAILEY on 05/18/23844 Aspirin (Aspirin EC) 81 Mg Tablet.dr, 81 MG PO DAILY, (Reported) Entered as Reported by: VEL BAILEY on 05/18/23844 Biotin (Biotin) 10,000 Mcg Capsule, 10,000 MCG PO BID, (Reported) Entered as Reported by: VEL BAILEY on 05/18/23844 Cyclobenzaprine HCl (Cyclobenzaprine HCl) 10 Mg Tablet, 10 MG PO BID Prescribed by: KEYA LENTZ on 08/14/23 1432 Famotidine (Acid [employer] (FAMOTIDINE)) 20 Mg Tablet, 20 MG PO DAILY, (Reported) Entered as Reported by: VEL BAILEY on 05/18/23 0845 Furosemide (Furosemide) 40 Mg Tablet, 40 MG PO BID, (Reported) Entered as Reported by: VEL BAILEY on 05/18/23 0845 Gabapentin (Neurontin) 300 Mg Capsule, 300 MG PO BID PRN for PAIN Prescribed by: RALPH DELCID on 05/30/232016 Metoprolol Tartrate (Metoprolol Tartrate) 50 Mg Tablet, 50 MG PO BID, (Reported) Entered as Reported by: VEL BAILEY on 05/18/23 0845 Metronidazole (Metronidazole) 500 Mg Tablet, 500 MG PO BID Prescribed by: KEYA LENTZ on 08/14/23 143 Ropinirole HCl (Ropinirole HCl) 0.5 Mg Tablet, 0.5 MG PO HS, (Reported) Entered as Reported by: VEL BAILEY on 05/18/23 0845 Sacubitril/Valsartan (Entresto 24 mg-26 mg Tablet) 24 Mg-26 Mg Tablet, 1 TAB PO BID, (Reported) Entered as Reported by: VEL BAILEY on 05/18/23 0845 Valacyclovir HCl (Valacyclovir) 1,000 Mg Tablet, 1,000 MG PO TID Prescribed by: RALPH DELCID on 05/30/232016 Review of Systems Review of Systems Constitutional: No fever EENTM: No Symptoms Reported Respiratory: No Symptoms Reported Cardiovascular: See HPI Gastrointestinal: No Symptoms Reported Genitourinary: No Symptoms Reported Musculoskeletal: no symptoms reported Skin: no symptoms reported Psychiatric/Neurological: No Symptoms Reported Endocrine: No Symptoms Reported Hematologic/Lymphatic: No Symptoms Reported Past Linuzpn-Kviira-Dxpwdk Hx Patient Social History Tobacco Use?: No Smoking Status: Former Smoker Substance use?: Yes Substance type: Methamphetamine Alcohol Use?: Yes Alcohol Frequency: Once in a while Pt feels they are or have been: No Immunizations Up To Date Tetanus Booster (TDap): Unknown PED Vaccines UTD: Yes First/Initial COVID19 Vaccinat: X3 Second COVID19 Vaccination [place]: Pfizer Third COVID19 Vaccination Date: [place] Seasonal Allergies Seasonal Allergies: No Past Medical History Surgery/Hospitalization HX: AICD, PEG(REMOVED), UTERINE ABLATION, HYSTERECTOMY, CHOLECYSTECTOMY HEART FAILURE, HTN, HLD, CKD, HLD, BRONCHITIS, GERD, BIPOLAR Surgeries: Yes (PACER/DEFIB 2014; DEFIB PLACED 05/10/19. PEG TUBE- REMOVED;UTERINE ABLATION) Abdominal, Section, Defibrillator, Gallbladder, Hysterectomy, Pacemaker Respiratory: Yes (ARDS-CODED; PNEUMOTHORAX 06/2015) Pneumonia, Chronic Bronchitis Currently Using CPAP: No Currently Using BIPAP: No Cardiac: Yes (PULMONARY EDEMA/CARDIAC CAUSE-R/T ATRIAL THROMBUS; CARDIAC ARREST;V-FIB ) Cardiomyopathy, Endocarditis, Hypertension, Valvular Heart Disease Neurological: Yes (encephalopathy-hypoxia, anoxic brain injury; POOR MEMORY;SLURRED SPEECH) Reproductive Disorders: Yes (ENDOMETRIAL ABLATION) Female Reproductive Disorders: Menstrual Problems Sexually Transmitted Disease: No Genitourinary: Yes (BASELINE CREATININE BETWEEN 2 & 3) Renal Failure Gastrointestinal: Yes Gastroesophageal Reflux Musculoskeletal: Yes (GAIT DISTURBANCE) Endocrine: No (OBESITY) HEENT: No Loss of Vision: Denies Hearing Impairment: Denies Cancer: No Psychosocial: Yes (SUBSTANCE ABUSE) Anxiety, Bipolar, Depression Integumentary: No Blood Disorders: Yes (ANEMIA) Family Medical History Patient reports no known family medical history. 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 SHE HAS HAD A DEFIBRILLATOR IN PLACE SINCE AGE 24. T.E.E. 05/18/[address] FORTUNE: -SEVERE DIFFUSE HYPOKINESIA OF LEFT VENTRICLE -4 CHAMBER DILATION -EF 20% -NO CLOTS/THROMBUS -NO VEGETATIONS -MODERATE MITRAL REGURGITATION. Physical Exam Vital Signs Vital Signs - First Documented 08/19/23 00:38 Temp 36.7 Pulse 80 Resp 13 B/P (MAP) 141/115 (124) Pulse Ox 98 O2 Delivery Room Air Capillary Refill : Less Than 3 Seconds Height, Weight, BMI Height: 5'3.00" Weight: 234lbs. 0oz. 106.784703mn; 37.00 BMI Method:Stated General Appearance: No Apparent Distress, WD/WN HEENT: PERRL/EOMI, Normal ENT Inspection, Pharynx Normal Neck: Full Range of Motion, Normal Inspection, Non Tender, Supple Respiratory: Chest Non Tender, Lungs Clear, Normal Breath Sounds, No Accessory Muscle Use, No Respiratory Distress Cardiovascular: Regular Rate, Rhythm, No Edema, Normal Peripheral Pulses Gastrointestinal: Normal Bowel Sounds, Non Tender, Soft Extremity: Normal Capillary Refill, Normal Inspection, Normal Range of Motion, Non Tender, No Calf Tenderness, No Pedal Edema Neurologic/Psychiatric: Alert, No Motor/Sensory Deficits, Normal Mood/Affect Skin: Normal Color, Warm/Dry Progress/Results/Core Measures Results/Orders Lab Results Laboratory Tests Test 08/19/23 00:50 08/19/23 02:15 Range/Units White Blood Count 8.7 4.3-11.0 10^3/uL Red Blood Count 4.57 3.80-5.11 10^6/uL Hemoglobin 13.1 11.5-16.0 g/dL Hematocrit 41 35-52 % Mean Corpuscular Volume 90 80-99 fL Mean Corpuscular Hemoglobin 29 25-34 pg Mean Corpuscular Hemoglobin Concent 32 32-36 g/dL Red Cell Distribution Width 15.2 H 10.0-14.5 % Platelet Count 331 130-400 10^3/uL Mean Platelet Volume 8.7 L 9.0-12.2 fL Immature Granulocyte % (Auto) 0 % Neutrophils (%) (Auto) 44 42-75 % Lymphocytes (%) (Auto) 46 H 12-44 % Monocytes (%) (Auto) 7 0-12 % Eosinophils (%) (Auto) 2 0-10 % Basophils (%) (Auto) 1 0-10 % Neutrophils # (Auto) 3.8 1.8-7.8 10^3/uL Lymphocytes # (Auto) 4.0 1.0-4.0 10^3/uL Monocytes # (Auto) 0.6 0.0-1.0 10^3/uL Eosinophils # (Auto) 0.2 0.0-0.3 10^3/uL Basophils # (Auto) 0.1 0.0-0.1 10^3/uL Immature Granulocyte # (Auto) 0.0 0.0-0.1 10^3/uL Prothrombin Time 12.5 12.2-14.7 SEC INR Comment 0.9 0.8-1.4 Activated Partial Thromboplast Time 30 24-35 SEC Sodium Level 137 135-145 MMOL/L Potassium Level 3.6 3.6-5.0 MMOL/L Chloride Level 103 98-107 MMOL/L Carbon Dioxide Level 23 21-32 MMOL/L Anion Gap 11 5-14 MMOL/L Blood Urea Nitrogen 29 H 7-18 MG/DL Creatinine 2.94 H 0.60-1.30 MG/DL Estimat Glomerular Filtration Rate 21 BUN/Creatinine Ratio 10 Glucose Level 104 70-105 MG/DL Calcium Level 8.4 L 8.5-10.1 MG/DL Corrected Calcium 8.7 8.5-10.1 MG/DL Magnesium Level 2.1 1.6-2.4 MG/DL Total Bilirubin 0.2 0.1-1.0 MG/DL Aspartate Amino Transf (AST/SGOT) 17 5-34 U/L Alanine Aminotransferase (ALT/SGPT) 18 0-55 U/L Alkaline Phosphatase 57 40-136 U/L Troponin I < 0.028 < 0.028 <0.028 NG/ML B-Type Natriuretic Peptide 37.1 <100.0 PG/ML Total Protein 6.4 6.4-8.2 GM/DL Albumin 3.6 3.2-4.5 GM/DL Lipase 28 8-78 U/L My Orders Orders - MATY KHAN MD Cbc And Automated Diff (08/19/23 00:41) Magnesium (08/19/23 00:41) Chest 1 View, Ap/Pa Only (08/19/23 00:41) Ekg Tracing (08/19/23 00:41) Comprehensive Metabolic Panel (08/19/23:41) Protime With Inr (08/19/23 00:41) Partial Thromboplastin Time (08/19/23 00:41) O2 (08/19/23 00:41) Monitor-Rhythm Ecg Trace Only (08/19/23 00:41) Ed Iv/Invasive Line Start (08/19/23 00:41) Lipase (08/19/23 00:41) Bnp Juab (08/19/23 00:41) Troponin I Juab (08/19/23 00:41) Aspirin Chewable Tablet (Aspirin Chewabl (08/19/23 00:45) Lorazepam Injection (Lorazepam Injection (08/19/23 00:41) Troponin I Juab (08/19/23 02:15) Medications Given in ED Current Medications Medications Dose Ordered Sig/Mikal Route Start Time Stop Time Status Last Admin Dose Admin Aspirin 243 mg ONCE ONCE PO 08/19/23 00:45 08/19/23 00:46 DC 08/19/23 00:55 243 MG Vital Signs/I&O 08/19/23 00:38 Temp 36.7 Pulse 80 Resp 13 B/P (MAP) 141/115 (124) Pulse Ox 98 O2 Delivery Room Air Progress Progress Note : Progress Note 32-year-old female with above history coming in due to chest pain. ABCs were intact and vitals were stable on presentation. Physical exam reassuring including no significant abnormalities. Specifically, no clinical signs of DVT. An IV was placed and basic labs were obtained and were significant for negative troponin x2, normal BNP, normal white blood cell count, and creatinine near her baseline. Chest x-ray ordered and interpreted by me as showing no obvious opacities, no pneumothorax, appears similar to prior. Patient was given aspirin as well as Ativan on arrival. Very unlikely to be ACS or life-threatening cause at this time. Believe she is stable for discharge with outpatient follow-up. She was sent home with strict return precautions Initial ECG Impression Date: Aug 19, 2023 Initial ECG Impression Time: 00:45 Initial ECG Rate: 74 Initial ECG Rhythm: Normal Sinus Comment No QRS, normal axis, no significant ST changes or T wave inversions, LVH by aVL criteria Diagnostic Imaging Diagonstic Imaging: Xray (chest) Departure Impression Primary Impression: Chest pain Qualified Codes: R07.82 - Intercostal pain Disposition: 01 HOME, SELF-CARE Condition: Stable Departure-Patient Inst. Decision time for Depature: 02:45 Referrals: [facility] (PCP/Family) Primary Care Physician Patient Instructions: Chest Pain, Adult ED Add. Discharge Instructions: We are not seeing any evidence of heart attack or anything life-threatening tonight. Please follow-up with your american sign language interpreter. Please be sure to follow-up next week as stated for the surgery to replace your defibrillator. MATY KHAN MD Aug 19, 2023 00:48
[2023-08-19 01:03] LABS: BASOPHILS # (AUTO) 0.1 10^3/uL (0.0-0.1); BASOPHILS % (AUTO) 1 % (0-10); EOSINOPHILS # (AUTO) 0.2 10^3/uL (0.0-0.3); EOSINOPHILS % (AUTO) 2 % (0-10); HEMATOCRIT 41 % (35-52); HEMOGLOBIN 13.1 g/dL (11.5-16.0); LYMPHOCYTES % (AUTO) 46 % (12-44); MEAN CORPUSCULAR HEMOGLOBIN 29 pg (25-34); MEAN CORPUSCULAR HGB CONC 32 g/dL (32-36); MEAN CORPUSCULAR VOLUME 90 fL (80-99); MEAN PLATELET VOLUME 8.7 fL (9.0-12.2); MONOCYTES # (AUTO) 0.6 10^3/uL (0.0-1.0); MONOCYTES % (AUTO) 7 % (0-12); NEUTROPHILS # (AUTO) 3.8 10^3/uL (1.8-7.8); NEUTROPHILS % (AUTO) 44 % (42-75); PLATELET COUNT 331 10^3/uL (130-400); WHITE BLOOD COUNT 8.7 10^3/uL (4.3-11.0)
[2023-08-19 01:16] LABS: ALBUMIN 3.6 GM/DL (3.2-4.5); CHLORIDE 103 MMOL/L (98-107); POTASSIUM 3.6 MMOL/L (3.6-5.0); SODIUM 137 MMOL/L (135-145)
[2023-08-19 01:17] LABS: CALCIUM 8.4 MG/DL (8.5-10.1)
[2023-08-19 01:18] LABS: GLUCOSE 104 MG/DL (70-105)
[2023-08-19 01:19] LABS: TOTAL PROTEIN 6.4 GM/DL (6.4-8.2)
[2023-08-19 01:20] LABS: BILIRUBIN,TOTAL 0.2 MG/DL (0.1-1.0); CARBON DIOXIDE 23 MMOL/L (21-32)
[2023-08-19 01:22] LABS: ALKALINE PHOSPHATASE 57 U/L (40-136); CREATININE SERUM 2.94 MG/DL (0.60-1.30); GFR ESTIMATED 21
[2023-08-19 01:23] LABS: BUN/CREATININE RATIO 10; INR 0.9 (0.8-1.4); PROTHROMBIN TIME PATIENT 12.5 SEC (12.2-14.7)
[2023-08-19 01:25] LABS: ALANINE AMINOTRANSFERASE 18 U/L (0-55); MAGNESIUM 2.1 MG/DL (1.6-2.4)
[2023-08-19 01:26] LABS: LIPASE 28 U/L (8-78)
[2023-08-19 02:49] VITALS: BP 120/95
--- NOTE | 2023-08-19 05:07 | Diagnostic Imaging Report ---
INDICATION: Substernal chest pain Portable chest 1:14 AM There are postoperative changes from dual-chamber pacemaker insertion. Heart and mediastinum are normal. Lungs are clear. There are no effusions or pneumothoraces. IMPRESSION: No acute abnormalities in the chest Dictated by: Dictated on workstation # [id number]
== END 2023-08-19 02:52 | disposition home or self-care (01) ==
LOC: EDUNIT# 00:31 → ER 00:33
DX: R07.9 Chest pain, unspecified (principal); E66.9 Obesity, unspecified; Z87.891 Personal history of nicotine dependence; Z95.0 Presence of cardiac pacemaker; Z68.37 Body mass index [BMI] 37.0-37.9, adult
CPT/HCPCS: 36415; 71045; 80053; 83690; 83735; 83880; 84484; 85025; 85610; 85730; 93005; 93041

== ENCOUNTER 2023-08-29 23:24 | Emergency (ER) | payer MEDICARE, MEDICAID ==
[~2023-08-29] VITALS: Ht 160 cm; Wt 96.6 kg
--- NOTE | 2023-08-30 00:21 | ED General ---
General Chief Complaint: Cardiac/General Problems Stated Complaint: NEW PACE MAKER GOING OFF Nursing Triage Note: PT AMB TO RM 2 W C/O BUZZING SOUND COMING FROM PACEMAKER. PT HAD LEADS TO PACEMAKER REPLACED AT ON 08/23/23, REPORTS ONGOING SORENESS AND CP THAT RADIATES TO LEFT ARM SX THEN. PT A&OX4. Source of Information: Patient Exam Limitations: Other (Poor historian) History of Present Illness Date Seen by Provider: Aug 29, 2023 Time Seen by Provider: 23:37 Initial Comments This 33-year-old woman well-known to this emergency room presents to the ER by private vehicle with vague complaints of an odd sensation about her pacemaker. Initially she complained that her pacemaker was "going off". She has a pacemaker and defibrillator that has been malfunctioning for quite some time and needed lead revision. She had a lead revision performed by Dr. Ramos at [facility] on August 23. She has pain at the postoperative site but states this unusual sensation of buzzing that accompanies the postoperative pain. 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 Allergies and Home Medications Allergies Coded Allergies: JIA Inhibitors (Verified Allergy, Severe, 05/22/19) ARB-Angiotensin Receptor Antagonist (Verified Allergy, Severe, 05/22/19) amoxicillin (Verified Allergy, Unknown, 05/28/21) baclofen (Unverified Allergy, Unknown, 05/22/19) ON H&P clavulanic acid (Verified Allergy, Unknown, 05/28/21) phenazopyridine (Unverified Allergy, Unknown, 05/22/19) ON H&P Patient Home Medication List Home Medication List Reviewed: Yes Acetaminophen (Tylenol) 325 Mg Tablet, 650 MG PO Q6H PRN for PAIN-MILD (1-4), (Reported) Entered as Reported by: VEL BAILEY on 05/18/23 0845 Amlodipine Besylate (Amlodipine Besylate) 10 Mg Tablet, 10 MG PO DAILY, (Reported) Entered as Reported by: VEL BAILEY on 05/18/23 0845 Apixaban (Eliquis) 5 Mg Tablet, 5 MG PO BID, (Reported) Entered as Reported by: VEL BAILEY on 05/18/23 0845 Aspirin (Aspirin EC) 81 Mg Tablet.dr, 81 MG PO DAILY, (Reported) Entered as Reported by: VEL BAILEY on 05/18/23 0845 Biotin (Biotin) 10,000 Mcg Capsule, 10,000 MCG PO BID, (Reported) Entered as Reported by: VEL BAILEY on 05/18/23 0845 Cyclobenzaprine HCl (Cyclobenzaprine HCl) 10 Mg Tablet, 10 MG PO BID Prescribed by: KEYA LENTZ on 08/14/23 1432 Famotidine (Acid Associate [employer] (FAMOTIDINE)) 20 Mg Tablet, 20 MG PO DAILY, (Reported) Entered as Reported by: VEL BAILEY on 05/18/23 0845 Furosemide (Furosemide) 40 Mg Tablet, 40 MG PO BID, (Reported) Entered as Reported by: VEL BAILEY on 05/18/23 0845 Gabapentin (Neurontin) 300 Mg Capsule, 300 MG PO BID PRN for PAIN Prescribed by: RALPH DELCID on 05/30/232016 Metoprolol Tartrate (Metoprolol Tartrate) 50 Mg Tablet, 50 MG PO BID, (Reported) Entered as Reported by: VEL BAILEY on 05/18/23 0845 Metronidazole (Metronidazole) 500 Mg Tablet, 500 MG PO BID Prescribed by: KEYA LENTZ on 08/14/23 1432 Ropinirole HCl (Ropinirole HCl) 0.5 Mg Tablet, 0.5 MG PO HS, (Reported) Entered as Reported by: VEL BAILEY on 05/18/23 0845 Sacubitril/Valsartan (Entresto 24 mg-26 mg Tablet) 24 Mg-26 Mg Tablet, 1 TAB PO BID, (Reported) Entered as Reported by: VEL BAILEY on 05/18/23 0845 Tramadol HCl (Tramadol HCl) 50 Mg Tablet, 50 MG PO Q4H Prescribed by: RODRIGO HILL on 08/24/23 2319 Valacyclovir HCl (Valacyclovir) 1,000 Mg Tablet, 1,000 MG PO TID Prescribed by: RALPH DELCID on 05/30/232016 Review of Systems Review of Systems Constitutional: no symptoms reported EENTM: no symptoms reported Respiratory: no symptoms reported Cardiovascular: see HPI Gastrointestinal: no symptoms reported Genitourinary: no symptoms reported Musculoskeletal: no symptoms reported Skin: see HPI Psychiatric/Neurological: See HPI Hematologic/Lymphatic: No Symptoms Reported Immunological/Allergic: no symptoms reported Past Vzhfetr-Dsbkow-Npbvte Hx Patient Social History Tobacco Use?: No Use of E-Cig and/or Vaping dev: No Substance use?: No Alcohol Use?: No Immunizations Up To Date Tetanus Booster (TDap): Unknown PED Vaccines UTD: Yes First/Initial COVID19 Vaccinat: X3 Second COVID19 Vaccination [place]: Pfizer Third COVID19 Vaccination Date: Pfizer Seasonal Allergies Seasonal Allergies: No Past Medical History Surgery/Hospitalization HX: AICD, PEG(REMOVED), UTERINE ABLATION, HYSTERECTOMY, CHOLECYSTECTOMY HEART FAILURE, HTN, HLD, CKD, HLD, BRONCHITIS, GERD, BIPOLAR Surgeries: Yes (PACER/DEFIB 2014; DEFIB PLACED 05/10/19. PEG TUBE- REMOVED;UTERINE ABLATION) Abdominal, Section, Defibrillator, Gallbladder, Hysterectomy, Pacemaker Respiratory: Yes (ARDS-CODED; PNEUMOTHORAX 06/2015) Pneumonia, Chronic Bronchitis Currently Using CPAP: No Currently Using BIPAP: No Cardiac: Yes (PULMONARY EDEMA/CARDIAC CAUSE-R/T ATRIAL THROMBUS; CARDIAC ARREST;V-FIB ) Cardiomyopathy, Endocarditis, Hypertension, Valvular Heart Disease Neurological: Yes (encephalopathy-hypoxia, anoxic brain injury; POOR MEMORY;SLURRED SPEECH) Reproductive Disorders: Yes (ENDOMETRIAL ABLATION) Female Reproductive Disorders: Menstrual Problems Sexually Transmitted Disease: No Genitourinary: Yes (BASELINE CREATININE BETWEEN 2 & 3) Renal Failure Gastrointestinal: Yes Gastroesophageal Reflux Musculoskeletal: Yes (GAIT DISTURBANCE) Endocrine: No (OBESITY) HEENT: No Loss of Vision: Denies Hearing Impairment: Denies Cancer: No Psychosocial: Yes (SUBSTANCE ABUSE) Anxiety, Bipolar, Depression Integumentary: No Blood Disorders: Yes (ANEMIA) Family Medical History Patient reports no known family medical history. 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 SHE HAS HAD A DEFIBRILLATOR IN PLACE SINCE AGE 24. T.E.E. 05/18/[address] FORTUNE: -SEVERE DIFFUSE HYPOKINESIA OF LEFT VENTRICLE -4 CHAMBER DILATION -EF 20% -NO CLOTS/THROMBUS -NO VEGETATIONS -MODERATE MITRAL REGURGITATION. Physical Exam Vital Signs Vital Signs - First Documented 08/29/23 23:25 Temp 36.3 Pulse 84 Resp 20 B/P (MAP) 169/125 (140) Pulse Ox 97 O2 Delivery Room Air Capillary Refill : Less Than 3 Seconds Height, Weight, BMI Height: 5'3.00" Weight: 234lbs. 0oz. 106.193204qi; 37.00 BMI Method:Stated General Appearance: No Apparent Distress, WD/WN HEENT: PERRL/EOMI, Normal ENT Inspection Neck: Normal Inspection Respiratory: Lungs Clear, Normal Breath Sounds, No Accessory Muscle Use Cardiovascular: No Murmur, Irregularly Irregular, Other (Healing surgical i ncision with postop site dressing over the pacemaker/defibrillator. Localized tenderness and swelling noted without inflammatory changes.) Extremity: Non Tender, Pedal Edema Neurologic/Psychiatric: Alert, Oriented x3, Other (Chronic speech and motor deficits which appear unchanged based on this provider's prior exams) Skin: Normal Color, Warm/Dry Progress/Results/Core Measures Suspected Sepsis SIRS Temperature: Pulse: 84 Respiratory Rate: 20 Laboratory Tests 08/30/23 02:20: White Blood Count 7.9 Blood Pressure 169 /125 Mean: 140 Laboratory Tests 08/30/23 02:20: Creatinine 2.41H, Platelet Count 371 Results/Orders Lab Results Laboratory Tests Test 08/30/23 02:20 Range/Units White Blood Count 7.9 4.3-11.0 10^3/uL Red Blood Count 4.72 3.80-5.11 10^6/uL Hemoglobin 13.7 11.5-16.0 g/dL Hematocrit 42 35-52 % Mean Corpuscular Volume 89 80-99 fL Mean Corpuscular Hemoglobin 29 25-34 pg Mean Corpuscular Hemoglobin Concent 33 32-36 g/dL Red Cell Distribution Width 14.5 10.0-14.5 % Platelet Count 371 130-400 10^3/uL Mean Platelet Volume 8.6 L 9.0-12.2 fL Immature Granulocyte % (Auto) 0 % Neutrophils (%) (Auto) 52 42-75 % Lymphocytes (%) (Auto) 39 12-44 % Monocytes (%) (Auto) 7 0-12 % Eosinophils (%) (Auto) 2 0-10 % Basophils (%) (Auto) 1 0-10 % Neutrophils # (Auto) 4.1 1.8-7.8 10^3/uL Lymphocytes # (Auto) 3.1 1.0-4.0 10^3/uL Monocytes # (Auto) 0.5 0.0-1.0 10^3/uL Eosinophils # (Auto) 0.2 0.0-0.3 10^3/uL Basophils # (Auto) 0.0 0.0-0.1 10^3/uL Immature Granulocyte # (Auto) 0.0 0.0-0.1 10^3/uL Sodium Level 139 135-145 MMOL/L Potassium Level 4.2 3.6-5.0 MMOL/L Chloride Level 103 98-107 MMOL/L Carbon Dioxide Level 25 21-32 MMOL/L Anion Gap 11 5-14 MMOL/L Blood Urea Nitrogen 19 H 7-18 MG/DL Creatinine 2.41 H 0.60-1.30 MG/DL Estimat Glomerular Filtration Rate 26 BUN/Creatinine Ratio 8 Glucose Level 97 70-105 MG/DL Calcium Level 9.3 8.5-10.1 MG/DL Magnesium Level 2.2 1.6-2.4 MG/DL My Orders Orders - RALPH LÓPEZ MD Ekg Tracing (08/29/23 23:40) Monitor-Rhythm Ecg Trace Only (08/29/23 23:40) Chest Pa/Lat (2 View) (08/30/23 00:07) Basic Metabolic Panel (08/30/23 02:25) Cbc And Automated Diff (08/30/23 02:25) Magnesium (08/30/23 02:25) Ed Iv/Invasive Line Start (08/30/23 02:25) Hydrocodone/Apap 5/325 Tablet (Hydrocod (08/30/23 02:30) Ketorolac Injection (Ketorolac Injection (08/30/23 02:30) Medications Given in ED Vital Signs/I&O 08/29/23 08/30/23 23:25 10:30 Temp 36.3 Pulse 84 76 Resp 20 14 B/P (MAP) 169/125 (140) 138/85 Pulse Ox 97 100 O2 Delivery Room Air Room Air Capillary Refill : Less Than 3 Seconds Blood Pressure Mean: 140 Progress Note #1: Time: 02:35 Progress Note Patient was interviewed and examined. Her Medtronic device was interrogated. She appeared to have a sensing malfunction. The [employer] sales training representative, Jamar, came to the ER to evaluate her device. Her ventricular lead was sensing both the atrium and ventricle and essentially doubling the rate. This put her at risk for unnecessary defibrillator discharges. The rep felt it was necessary to disable the defibrillator at this time. Chest x-ray was obtained and seem to confirm migration of the pacer lead. [facility] was consulted. These findings reviewed with Dr. Simon. He recommended transfer back to [facility] for direct evaluation and potentially modification of her device leads. Transfer was excepted and bed assigned. However, [facility] does not have any EMS transfer service available. Her situation does not require air transport at this time. We are presently holding the patient in the emergency room and aw aiting other transfer options. Progress Note #2: Progress Note Patient received hydrocodone and toradol for her postoperative pain. She remained in the ER until EMS was available for transfer at 10:30. ER length of stay was greatly protracted due to not EMS transfer service available. Cost and risk of flight could not be justified for this presently stable patient. ECG Initial ECG Impression Date: Aug 29, 2023 Initial ECG Impression Time: 23:46 Initial ECG Rate: 86 Initial ECG Rhythm: Normal Sinus Comment Sinus rhythm with no ST elevation or depression. No abnormal intervals. LVH noted. Diagnostic Imaging Diagonstic Imaging: Xray Plain Films/CT/US/NM/MRI: chest Comments NAME: SAL PRIEST [facility] REC#: [id number] PT STATUS: DEP ER : 1990 PHYSICIAN: RALPH LÓPEZ MD ADMIT DATE: 08/29/23/ER Signed Date of Exam:08/30/23 CHEST PA/LAT (2 VIEW) EXAMINATION: Chest 2 view HISTORY: Pacer placement COMPARISON: 08/19/2023 FINDINGS: The lungs are clear without edema or pneumonia. No pleural effusion or pneumothorax. Heart size is normal. Pacemaker is present. There are two leads project over the right atrium. IMPRESSION: 1. Clear lungs. Dictated by: Dictated on workstation # [id number] Dict: 08/30/23 0815 Trans: 08/30/23 1620 [facility] [id number] Interpreted by: BRYANT VIEIRA MD Electronically signed by: BRYANT VIEIRA MD 08/30/23 1620 Departure Impression Primary Impression: Malfunction of implantable defibrillator ventricular (ICD) lead Additional Impression: Post-op pain Disposition: 02 XFER SHT-TRM HOSP Condition: Stable Transfer Transfer Reason: Exceeds level of care Time Spoke to Accepting Phy: 01:34 Transfer Progress Notes Transfer accepted by Dr. Simon at [facility] Departure-Patient Inst. Referrals: [facility] (PCP/Family) Primary Care Physician Copy Copies To 1: [facility]/RALPH KIM MD Aug 30, 2023 00:21
[2023-08-30] MEDS ORDERED: KETOROLAC INJ 30 MG/ML VIAL IVP ONE (02:30)
[2023-08-30] MEDS ORDERED: HYDROcodone/ACETAMINOPHEN 5 MG/325 MG TABLET PO ONE (02:30)
[2023-08-30 02:32] LABS: BASOPHILS % (AUTO) 1 % (0-10); EOSINOPHILS # (AUTO) 0.2 10^3/uL (0.0-0.3); EOSINOPHILS % (AUTO) 2 % (0-10); HEMATOCRIT 42 % (35-52); HEMOGLOBIN 13.7 g/dL (11.5-16.0); LYMPHOCYTES # (AUTO) 3.1 10^3/uL (1.0-4.0); LYMPHOCYTES % (AUTO) 39 % (12-44); MEAN CORPUSCULAR HEMOGLOBIN 29 pg (25-34); MEAN CORPUSCULAR HGB CONC 33 g/dL (32-36); MEAN CORPUSCULAR VOLUME 89 fL (80-99); MEAN PLATELET VOLUME 8.6 fL (9.0-12.2); MONOCYTES # (AUTO) 0.5 10^3/uL (0.0-1.0); MONOCYTES % (AUTO) 7 % (0-12); NEUTROPHILS # (AUTO) 4.1 10^3/uL (1.8-7.8); NEUTROPHILS % (AUTO) 52 % (42-75); PLATELET COUNT 371 10^3/uL (130-400); WHITE BLOOD COUNT 7.9 10^3/uL (4.3-11.0)
[2023-08-30 02:38] LABS: POTASSIUM 4.2 MMOL/L (3.6-5.0)
[2023-08-30 02:39] LABS: CALCIUM 9.3 MG/DL (8.5-10.1)
[2023-08-30 02:43] LABS: CREATININE SERUM 2.41 MG/DL (0.60-1.30)
[2023-08-30 02:45] LABS: MAGNESIUM 2.2 MG/DL (1.6-2.4)
--- NOTE | 2023-08-30 08:17 | Diagnostic Imaging Report ---
EXAMINATION: Chest 2 view HISTORY: Pacer placement COMPARISON: 08/19/2023 FINDINGS: The lungs are clear without edema or pneumonia. No pleural effusion or pneumothorax. Heart size is normal. Pacemaker is present. There are two leads project over the right atrium. IMPRESSION: 1. Clear lungs. Dictated by: Dictated on workstation # [id number]
[2023-08-30 10:30] VITALS: BP 138/85
== END 2023-08-30 10:30 | disposition short-term general hospital (02) ==
LOC: EDUNIT# 23:24 → ER 23:26
DX: T82.190A Other mechanical complication of cardiac electrode, initial encounter (principal); E66.9 Obesity, unspecified; Z68.37 Body mass index [BMI] 37.0-37.9, adult; Z95.5 Presence of coronary angioplasty implant and graft
CPT/HCPCS: 36415; 71046; 80048; 83735; 85025; 93005

== ENCOUNTER 2023-09-05 08:43 | Emergency (ER) | payer MEDICARE, MEDICAID ==
--- NOTE | 2023-09-05 09:13 | ED Headache ---
General Chief Complaint: Head/Cervical Problems Stated Complaint: HEADACHE Nursing Triage Note: PT AMB TO [facility]. PT STATES WAS GIVEN DEFINTIY WHEN HAD PACEMAKER REPAIRED AND HAS HAD HORRIBLE [facility] SINCE. RATES PAIN 07/07 Source: patient (JASON CAMPBELL) History of Present Illness Date Seen by Provider: Sep 05, 2023 Time Seen by Provider: 09:00 Timing/Duration: 1 week Severity/Quality: mild Location: frontal Prior Headaches/Recent Trauma: chronic headaches Associated Symptoms: denies symptoms (JASON CAMPBELL) Allergies and Home Medications Allergies Coded Allergies: JIA Inhibitors (Verified Allergy, Severe, 05/22/19) ARB-Angiotensin Receptor Antagonist (Verified Allergy, Severe, 05/22/19) amoxicillin (Verified Allergy, Unknown, 05/28/21) baclofen (Unverified Allergy, Unknown, 05/22/19) ON H&P clavulanic acid (Verified Allergy, Unknown, 05/28/21) phenazopyridine (Unverified Allergy, Unknown, 05/22/19) ON H&P perflutren (Verified Adverse Reaction, Unknown, 09/05/23) Patient Home Medication List Home Medication List Reviewed: Yes (JASON CAMPBELL) Home Medication List Reviewed: Yes (BROWN LOVE DO) Acetaminophen (Tylenol) 325 Mg Tablet, 650 MG PO Q6H PRN for PAIN-MILD (1-4), (Reported) Entered as Reported by: VEL BAILEY on 05/18/23844 Amlodipine Besylate (Amlodipine Besylate) 10 Mg Tablet, 10 MG PO DAILY, (Reported) Entered as Reported by: VEL BAILEY on 05/18/23844 Apixaban (Eliquis) 5 Mg Tablet, 5 MG PO BID, (Reported) Entered as Reported by: VEL BAILEY on 05/18/23844 Aspirin (Aspirin EC) 81 Mg Tablet.dr, 81 MG PO DAILY, (Reported) Entered as Reported by: VEL BAILEY on 05/18/23844 Biotin (Biotin) 10,000 Mcg Capsule, 10,000 MCG PO BID, (Reported) Entered as Reported by: VEL BAILEY on 05/18/23844 Cyclobenzaprine HCl (Cyclobenzaprine HCl) 10 Mg Tablet, 10 MG PO BID Prescribed by: KEYA LENTZ on 08/14/23 1432 Famotidine (Acid Data Analytics Analyst (FAMOTIDINE)) 20 Mg Tablet, 20 MG PO DAILY, (Reported) Entered as Reported by: VEL BAILEY on 05/18/23 0845 Furosemide (Furosemide) 40 Mg Tablet, 40 MG PO BID, (Reported) Entered as Reported by: VEL BAILEY on 05/18/23 0845 Gabapentin (Neurontin) 300 Mg Capsule, 300 MG PO BID PRN for PAIN Prescribed by: RALPH DELCID on 05/30/232016 Metoprolol Tartrate (Metoprolol Tartrate) 50 Mg Tablet, 50 MG PO BID, (Reported) Entered as Reported by: VEL BAILEY on 05/18/23 0845 Metronidazole (Metronidazole) 500 Mg Tablet, 500 MG PO BID Prescribed by: KEYA LENTZ on 08/14/23 1432 Ropinirole HCl (Ropinirole HCl) 0.5 Mg Tablet, 0.5 MG PO HS, (Reported) Entered as Reported by: VEL BAILEY on 05/18/23 0845 Sacubitril/Valsartan (Entresto 24 mg-26 mg Tablet) 24 Mg-26 Mg Tablet, 1 TAB PO BID, (Reported) Entered as Reported by: VEL BAILEY on 05/18/23 0845 Tramadol HCl (Tramadol HCl) 50 Mg Tablet, 50 MG PO Q4H Prescribed by: RODRIGO HILL on 08/24/23 2319 Valacyclovir HCl (Valacyclovir) 1,000 Mg Tablet, 1,000 MG PO TID Prescribed by: RALPH DELCID on 05/30/232016 Review of Systems Review of Systems Constitutional: no symptoms reported, see HPI Eyes: No Symptoms Reported Ears, Nose, Mouth, Throat: no symptoms reported Respiratory: no symptoms reported Cardiovascular: no symptoms reported Gastrointestinal: no symptoms reported Musculoskeletal: no symptoms reported Psychiatric/Neurological: Headache (frontal) (JASON CAMPBELL) All Other Systems Reviewed Negative Unless Noted: Yes (JASON CAMPBELL) Past Rlpialk-Ectnwp-Avgowt Hx Patient Social History Tobacco Use?: No Substance use?: No Alcohol Use?: No Pt feels they are or have been: No (JASON CAMPBELL) Immunizations Up To Date Tetanus Booster (TDap): Unknown PED Vaccines UTD: Yes First/Initial COVID19 Vaccinat: X3 Second COVID19 Vaccination Adair: Pfizer Third COVID19 Vaccination Date: Pfizer (JASON CAMPBELL) Seasonal Allergies Seasonal Allergies: No (JASON CAMPBELL) Past Medical History Surgery/Hospitalization HX: AICD, PEG(REMOVED), UTERINE ABLATION, HYSTERECTOMY, CHOLECYSTECTOMY HEART FAILURE, HTN, HLD, CKD, HLD, BRONCHITIS, GERD, BIPOLAR, PACEMAKER Surgeries: Yes (PACER/DEFIB 2014; DEFIB PLACED 05/10/19. PEG TUBE-REMOVED; UTERINE ABLATION) Abdominal, Section, Defibrillator, Gallbladder, Hysterectomy, Pacemaker Respiratory: Yes (ARDS-CODED; PNEUMOTHORAX 06/2015) Pneumonia, Chronic Bronchitis Currently Using CPAP: No Currently Using BIPAP: No Cardiac: Yes (PULMONARY EDEMA/CARDIAC CAUSE-R/T ATRIAL THROMBUS; CARDIAC ARREST;V-FIB ) Cardiomyopathy, Endocarditis, Hypertension, Valvular Heart Disease Neurological: Yes (encephalopathy-hypoxia, anoxic brain injury; POOR MEMORY;SLURRED SPEECH) Reproductive Disorders: Yes (ENDOMETRIAL ABLATION) Female Reproductive Disorders: Menstrual Problems Sexually Transmitted Disease: No Genitourinary: Yes (BASELINE CREATININE BETWEEN 2 & 3) Renal Failure Gastrointestinal: Yes Gastroesophageal Reflux Musculoskeletal: Yes (GAIT DISTURBANCE) Endocrine: No (OBESITY) HEENT: No Loss of Vision: Denies Hearing Impairment: Denies Cancer: No Psychosocial: Yes (SUBSTANCE ABUSE) Anxiety, Bipolar, Depression Integumentary: No Blood Disorders: Yes (ANEMIA) (JASON CAMPBELL) Family Medical History Patient reports no known family medical history. 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 SHE HAS HAD A DEFIBRILLATOR IN PLACE SINCE AGE 24. T.E.E. 05/18/[address] FORTUNE: -SEVERE DIFFUSE HYPOKINESIA OF LEFT VENTRICLE -4 CHAMBER DILATION -EF 20% -NO CLOTS/THROMBUS -NO VEGETATIONS -MODERATE MITRAL REGURGITATION. (JASON CAMPBELL) Physical Exam Vital Signs Vital Signs - First Documented 09/05/23 08:50 Temp 36.5 Pulse 71 Resp 18 B/P (MAP) 146/126 (133) Pulse Ox 97 (BROWN LOVE DO) Vital Signs Capillary Refill : Less Than 3 Seconds (JASON CAMPBELL) Height, Weight, BMI Height: 5'3.00" Weight: 234lbs. 0oz. 106.564398ur; 37.00 BMI Method:Stated General Appearance: WD/WN, no apparent distress Neck: supple, normal inspection Cardiovascular: regular rate, rhythm, no gallop, no murmur Respiratory: normal breath sounds, no respiratory distress, no accessory muscle use Psychiatric: alert, oriented x 3 Crainal Nerves: normal hearing, abnormal speech (expressive aphasia) Motor/Sensory: no motor deficit (JASON CAMPBELL) Progress/Results/Core Measures Results/Orders My Orders Orders - BROWN LOVE DO Ct Head Wo (09/05/23 09:09) Ketorolac Injection (Ketorolac Injection (09/05/23 09:15) Ns Iv 1000 Ml (Ns Iv 1000 Ml) (09/05/23 09:15) (BROWN LOVE DO) Medications Given in ED Current Medications Medications Dose Ordered Sig/Mikal Route Start Time Stop Time Status Last Admin Dose Admin Ketorolac Tromethamine 15 mg ONCE ONCE IVP 09/05/23 09:15 09/05/23 09:16 DC 09/05/23 09:23 15 MG (BROWN LOVE DO) Vital Signs/I&O 09/05/23 08:50 Temp 36.5 Pulse 71 Resp 18 B/P (MAP) 146/126 (133) Pulse Ox 97 (BROWN LOVE DO) Blood Pressure Mean: 133 Progress Progress Note : Time: 09:05 Progress Note 09:05 - Patient presents today with a headache that she says has been constant over the past couple of weeks. She describes it as a frontal headache that has some radiation to temporal. She is was seen last week on 08/29/23 for cardiac issues and has since followed up with her buttonhole maker. Her Metoprolol was increased from 50 mg twice daily to 100 mg twice daily, but when she went to fill it at the pharmacy they would not fill it, because they thought the dose was too high. She believes that the headaches have became worse since this time. She took 1,000 mg of Tylenol earlier this morning but is unsure of the exact time. The plan is to get a CT scan of her head and give her Toradol to see if it alleviates some of her pain at this time. (JASON CAMPBELL) Progress Note : Progress Note 1111 patient states she still has residual headache but denies any worsening. No nausea vomiting. CT negative for acute processes. States that she has had this headache for quite some time since she had a procedure done earlier this month. Denies lumbar puncture spinal tap as inciting event. Advised will place on either Fioricet or Phenergan as needed for few days but would want her to get back in with her primary for other modalities or control of this headache. Patient voices understanding and agrees with this plan denies any other needs or concerns at this time. (BROWN LOVE DO) Departure Impression Primary Impression: Headache Qualified Codes: R51.9 - Headache, unspecified Disposition: 01 HOME, SELF-CARE Condition: Improved Departure-Patient Inst. Referrals: BROWN NGUYEN FOOD SAFETY FIELD SPECIALIST (PCP/Family) Primary Care Physician Patient Instructions: Headache, Adult (DC) Scripts Promethazine HCl (Promethazine Tablet) 25 Mg Tablet 25 MG PO Q6H PRN for headache for 4 Days, #20 TAB Prov: BROWN LOVE DO 09/05/23 JASON CAMPBELL Sep 05, 2023 09:13 BROWN LOVE DO Sep 05, 2023 10:31
[2023-09-05] MEDS ORDERED: NS IV 1000 ML 1,000 ML IV SCH (09:15)
[2023-09-05] MEDS ORDERED: KETOROLAC INJ 15 MG/ML VIAL IVP ONE (09:15)
--- NOTE | 2023-09-05 10:29 | Diagnostic Imaging Report ---
PROCEDURE: CT head without contrast. TECHNIQUE: Multiple contiguous axial images were obtained through the brain without the use of intravenous contrast. Auto Exposure Controls were utilized during the CT exam to meet ALARA standards for radiation dose reduction. INDICATION: Headache. COMPARISON: CT of the head on 06/19/2023. FINDINGS: The brain parenchyma is normal in attenuation. No intra- or extra-axial mass or fluid collection. No acute hemorrhage. The ventricles are normal in size, shape, and morphology. The cabral-white matter junction is normal. The subarachnoid cisterns are patent. The visualized paranasal sinuses are normal. The visualized portions of the orbits and globes are normal. The mastoid air cells are clear. The account relationship manager topogram shows no lytic lesion or fracture. Impression: No acute intracranial process. Dictated by: Dictated on workstation # [id number]
[2023-09-05] MEDS ORDERED: PROM25TA14 PO (11:13)
[2023-09-05 11:22] VITALS: BP 138/97
== END 2023-09-05 11:22 | disposition home or self-care (01) ==
LOC: EDUNIT# 08:43 → ER 08:44
DX: R51.9 Headache, unspecified (principal); Z87.891 Personal history of nicotine dependence
CPT/HCPCS: 70450

== ENCOUNTER 2023-09-12 01:42 | Emergency (ER) | payer MEDICARE, MEDICAID ==
[~2023-09-12] VITALS: Ht 160 cm; Wt 104.0 kg
[~2023-09-12 01:42] MED LIST changes: +PROM25TA14 PO
--- NOTE | 2023-09-12 02:00 | ED Chest Pain ---
General Chief Complaint: Chest Pain Stated Complaint: CP Source: patient Exam Limitations: no limitations History of Present Illness Date Seen by Provider: Sep 12, 2023 Time Seen by Provider: 01:50 Initial Comments Patient is a 33-year-old female who presents to the emergency room with anterior chest wall pain. Multiple prior visits to the this ER for various complaints. Patient states that the pain started this evening. She was moving her bed earlier today. She took some Tylenol PM around 9 PM without much relief of symptoms. She denies shortness of breath, nausea, fevers, chills cough. Movement and palpation of the area make the pain worse. She has not tried anything else for the pain. 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 She has pacer defibrillator in place. Recent intervention at with lead problems. Timing/Duration: 1-3 hours Severity/Quality: moderate, sharp Location: other (sternal) Radiation: no radiation Activities at Onset: rest Prior CP/Workup: heart attack (vfib/cardiac arrest/pacer, defibrillator) Modifying Factors: worse with movement ASA po LAST CLEANER: No NTG SL LAST CLEANER: No Associated Symptoms: denies symptoms Allergies and Home Medications Allergies Coded Allergies: JIA Inhibitors (Verified Allergy, Severe, 05/22/19) ARB-Angiotensin Receptor Antagonist (Verified Allergy, Severe, 05/22/19) amoxicillin (Verified Allergy, Unknown, 05/28/21) baclofen (Unverified Allergy, Unknown, 05/22/19) ON H&P clavulanic acid (Verified Allergy, Unknown, 05/28/21) phenazopyridine (Unverified Allergy, Unknown, 05/22/19) ON H&P perflutren (Verified Adverse Reaction, Unknown, 09/05/23) Patient Home Medication List Home Medication List Reviewed: Yes Acetaminophen (Tylenol) 325 Mg Tablet, 650 MG PO Q6H PRN for PAIN-MILD (1-4), (Reported) Entered as Reported by: VEL BAILEY on 05/18/23 0845 Amlodipine Besylate (Amlodipine Besylate) 10 Mg Tablet, 10 MG PO DAILY, (Reported) Entered as Reported by: VEL BAILEY on 05/18/23 0845 Apixaban (Eliquis) 5 Mg Tablet, 5 MG PO BID, (Reported) Entered as Reported by: VEL BAILEY on 05/18/23 0845 Aspirin (Aspirin EC) 81 Mg Tablet.dr, 81 MG PO DAILY, (Reported) Entered as Reported by: VEL BAILEY on 05/18/23 08 Biotin (Biotin) 10,000 Mcg Capsule, 10,000 MCG PO BID, (Reported) Entered as Reported by: VEL BAILEY on 05/18/23 0845 Cyclobenzaprine HCl (Cyclobenzaprine HCl) 10 Mg Tablet, 10 MG PO BID Prescribed by: KEYA LENTZ on 08/14/23 143 Famotidine (Acid Automatic Fabric Cutter (FAMOTIDINE)) 20 Mg Tablet, 20 MG PO DAILY, (Reported) Entered as Reported by: VEL BAILEY on 05/18/23 08 Furosemide (Furosemide) 40 Mg Tablet, 40 MG PO BID, (Reported) Entered as Reported by: VEL BAILEY on 05/18/23 08 Gabapentin (Neurontin) 300 Mg Capsule, 300 MG PO BID PRN for PAIN Prescribed by: RALPH DELCID on 05/30/232016 Metoprolol Tartrate (Metoprolol Tartrate) 50 Mg Tablet, 50 MG PO BID, (Reported) Entered as Reported by: VEL BAILEY on 05/18/23844 Metronidazole (Metronidazole) 500 Mg Tablet, 500 MG PO BID Prescribed by: KEYA LENTZ on 08/14/23 143 Promethazine HCl (Promethazine Tablet) 25 Mg Tablet, 25 MG PO Q6H PRN for headache Prescribed by: Brown Dietz on 09/05/23 1113 Ropinirole HCl (Ropinirole HCl) 0.5 Mg Tablet, 0.5 MG PO HS, (Reported) Entered as Reported by: VEL BAILEY on 05/18/23 0845 Sacubitril/Valsartan (Entresto 24 mg-26 mg Tablet) 24 Mg-26 Mg Tablet, 1 TAB PO BID, (Reported) Entered as Reported by: VEL BAILEY on 05/18/23 08 Tramadol HCl (Tramadol HCl) 50 Mg Tablet, 50 MG PO Q4H Prescribed by: RODRIGO HILL on 08/24/23 2319 Valacyclovir HCl (Valacyclovir) 1,000 Mg Tablet, 1,000 MG PO TID Prescribed by: RALPH DELCID on 05/30/232016 Review of Systems Review of Systems Constitutional: see HPI EENTM: No Symptoms Reported Respiratory: No Symptoms Reported Cardiovascular: Chest Pain Gastrointestinal: No Symptoms Reported Genitourinary: No Symptoms Reported Musculoskeletal: no symptoms reported Skin: no symptoms reported Psychiatric/Neurological: No Symptoms Reported All Other Systems Reviewed Negative Unless Noted: Yes Past Lkdzcod-Csnbla-Raxocs Hx Immunizations Up To Date Tetanus Booster (TDap): Unknown PED Vaccines UTD: Yes First/Initial COVID19 Vaccinat: X3 Second COVID19 Vaccination Adair: Pfizer Third COVID19 Vaccination Date: Scop[place] Seasonal Allergies Seasonal Allergies: No Past Medical History Surgery/Hospitalization HX: AICD, PEG(REMOVED), UTERINE ABLATION, HYSTERECTOMY, CHOLECYSTECTOMY HEART FAILURE, HTN, HLD, CKD, HLD, BRONCHITIS, GERD, BIPOLAR, PACEMAKER Surgeries: Yes (PACER/DEFIB 2014; DEFIB PLACED 05/10/19. PEG TUBE- REMOVED;UTERINE ABLATION) Abdominal, Section, Defibrillator, Gallbladder, Hysterectomy, Pacemaker Respiratory: Yes (ARDS-CODED; PNEUMOTHORAX 06/2015) Pneumonia, Chronic Bronchitis Currently Using CPAP: No Currently Using BIPAP: No Cardiac: Yes (PULMONARY EDEMA/CARDIAC CAUSE-R/T ATRIAL THROMBUS; CARDIAC ARREST;V-FIB ) Cardiomyopathy, Endocarditis, Hypertension, Valvular Heart Disease Neurological: Yes (encephalopathy-hypoxia, anoxic brain injury; POOR MEMORY;SLURRED SPEECH) Reproductive Disorders: Yes (ENDOMETRIAL ABLATION) Female Reproductive Disorders: Menstrual Problems Sexually Transmitted Disease: No Genitourinary: Yes (BASELINE CREATININE BETWEEN 2 & 3) Renal Failure Gastrointestinal: Yes Gastroesophageal Reflux Musculoskeletal: Yes (GAIT DISTURBANCE) Endocrine: No (OBESITY) HEENT: No Loss of Vision: Denies Hearing Impairment: Denies Cancer: No Psychosocial: Yes (SUBSTANCE ABUSE) Anxiety, Bipolar, Depression Integumentary: No Blood Disorders: Yes (ANEMIA) Family Medical History Patient reports no known family medical history. 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 SHE HAS HAD A DEFIBRILLATOR IN PLACE SINCE AGE 24. T.E.E. 05/18/[address] FORTUNE: -SEVERE DIFFUSE HYPOKINESIA OF LEFT VENTRICLE -4 CHAMBER DILATION -EF 20% -NO CLOTS/THROMBUS -NO VEGETATIONS -MODERATE MITRAL REGURGITATION. Physical Exam Vital Signs Vital Signs - First Documented 09/12/23 01:50 Temp 36.8 Pulse 73 Resp 16 B/P (MAP) 158/104 (122) Pulse Ox 99 O2 Delivery Room Air Capillary Refill : Height, Weight, BMI Height: 5'3.00" Weight: 234lbs. 0oz. 106.537690sf; 37.00 BMI Method:Stated General Appearance: No Apparent Distress, WD/WN, Obese HEENT: PERRL/EOMI Neck: Normal Inspection Respiratory: Lungs Clear, Normal Breath Sounds, No Accessory Muscle Use, No Respiratory Distress, Other (chest wall tenderness to palpation over the costochondral junction bilateral; no erythema/swelling) Cardiovascular: Regular Rate, Rhythm, Normal Peripheral Pulses Gastrointestinal: Non Tender, Soft Extremity: Normal Inspection Neurologic/Psychiatric: Alert, Oriented x3, Normal Mood/Affect Skin: Normal Color, Warm/Dry Progress/Results/Core Measures Results/Orders My Orders Orders - RICH CRUZ MD Ekg Tracing (09/12/23 01:47) Acetaminophen Tablet (Acetaminophen Ta (09/12/23 02:15) Cyclobenzaprine Tablet (Cyclobenzaprine (09/12/23 02:01) Medications Given in ED Current Medications Medications Dose Ordered Sig/Mikal Route Start Time Stop Time Status Last Admin Dose Admin Acetaminophen 650 mg ONCE ONCE PO 09/12/23 02:15 09/12/23 02:16 DC 09/12/23 02:14 650 MG Vital Signs/I&O 09/12/23 09/12/23 01:50 02:44 Temp 36.8 37.0 Pulse 73 67 Resp 16 16 B/P (MAP) 158/104 (122) 143/101 Pulse Ox 99 99 O2 Delivery Room Air Room Air Progress Progress Note : Time: 02:14 Progress Note Patient seen and evaluated by me. Eval today includes physical exam, EKG. Pertinent physical exam findings - patient has tenderness to palpation along the sternum bilaterally. No erthema/rash/swelling. No pleuritic-type pain. Lungs are clear throughout. Heart is regular. No other concerning physical exam findings. ddx includes constochondritis/musculoskeletal chest wall pain. Patient's EKG shows NSR with normal intervals - not currently paced. No ST segment change. No ectopy. LVH is present - no change from prior EKG's. Her VS are stable. chest pain is completely reproducible - no concerns for ACS. Treated with 650mg of acetaminophen and 10mg PO flexeril. Patient cannot have NSAIDs due to chronic anticoagulation. Advised moist warm compresses. Follow up with PCP. Suspect just chest muscle wall strain due to her moving large furniture without help today. No indications for any further workup at this time. Initial ECG Impression Date: Sep 12, 2023 Initial ECG Impression Time: 01:52 Initial ECG Rate: 76 Initial ECG Rhythm: Normal Sinus Initial ECG Intervals: Normal Initial ECG Impression: Normal Comment LVH, No ST segment elevation or depression; no ectopy Departure Impression Primary Impression: Chest wall pain Disposition: 01 HOME, SELF-CARE Condition: Stable Departure-Patient Inst. Decision time for Depature: 02:19 Referrals: BROWN NGUYEN APRN (PCP/Family) Primary Care Physician Patient Instructions: Costochondritis (DC) Add. Discharge Instructions: You can apply moist warm compresses to the sore area of your chest wall. Continue tylenol every 6 hours for pain. Contact your primary care provider tomorrow for further evaluation and treatment . If you have any worsening chest pain, especially with shortness of breath, fever, cough - please return to the Emergency Department for re-evaluation. RICH CRUZ MD Sep 12, 2023 02:00
[2023-09-12] MEDS ORDERED: CYCLOBENZAPRINE 10 MG TABLET PO STA (02:01)
[2023-09-12] MEDS ORDERED: ACETAMINOPHEN 325 MG TABLET PO ONE (02:15)
[2023-09-12 02:44] VITALS: BP 143/101
== END 2023-09-12 02:44 | disposition home or self-care (01) ==
LOC: EDUNIT# 01:42 → ER 01:43
DX: R07.89 Other chest pain (principal); E66.9 Obesity, unspecified; Z79.01 Long term (current) use of anticoagulants; Z95.810 Presence of automatic (implantable) cardiac defibrillator; Z86.74 Personal history of sudden cardiac arrest; Z87.891 Personal history of nicotine dependence; Z68.37 Body mass index [BMI] 37.0-37.9, adult
CPT/HCPCS: 93005

== ENCOUNTER 2023-09-15 03:31 | Emergency (ER) | payer MEDICARE, MEDICAID ==
[~2023-09-15] VITALS: Ht 160 cm; Wt 108.0 kg
[2023-09-15 03:47] VITALS: BP 139/108
[2023-09-15] MEDS ORDERED: ONDANSETRON 4 MG ORAL DISSOLVE TABLET SL ONE (04:00)
[2023-09-15] MEDS ORDERED: ONDA4TAB11 SL (04:04)
--- NOTE | 2023-09-15 04:05 | ED General ---
General Chief Complaint: Cardiac/General Problems Stated Complaint: LOW BLOOD PRESSURE Nursing Triage Note: patient states she thought her blood pressure was high so she took lopressor er, states she then check bp and it was 118/70. concerned that it will get lower Source of Information: Patient Exam Limitations: No Limitations History of Present Illness Date Seen by Provider: Sep 15, 2023 Time Seen by Provider: 03:50 Initial Comments This 33-year-old woman presents to the emergency room with concerns about her blood pressure. She takes Toprol XL 100 mg twice daily. She took her usual dose at 2100 last night. She thought her blood pressure was high early this morning because she was "seeing stars or dots" which is typical when her blood pressure is high. She took her next dose early, at approximately 0315. She then became concerned that her blood pressure would drop too low. She checked her blood pressure at home which was in the 110s/80s. She considered this blood pressure to be low and decided to come to the emergency room. During assessment in the ER, she has mild hypertension. She has had some headaches recently as well as nausea for a few days. She otherwise is at her baseline. She denies pain. Allergies and Home Medications Allergies Coded Allergies: JIA Inhibitors (Verified Allergy, Severe, 05/22/19) ARB-Angiotensin Receptor Antagonist (Verified Allergy, Severe, 05/22/19) amoxicillin (Verified Allergy, Unknown, 05/28/21) baclofen (Unverified Allergy, Unknown, 05/22/19) ON H&P clavulanic acid (Verified Allergy, Unknown, 05/28/21) phenazopyridine (Unverified Allergy, Unknown, 05/22/19) ON H&P perflutren (Verified Adverse Reaction, Unknown, 09/05/23) Patient Home Medication List Home Medication List Reviewed: Yes Acetaminophen (Tylenol) 325 Mg Tablet, 650 MG PO Q6H PRN for PAIN-MILD (1-4), (Reported) Entered as Reported by: VEL BAILEY on 05/18/23 0845 Amlodipine Besylate (Amlodipine Besylate) 10 Mg Tablet, 10 MG PO DAILY, (Reported) Entered as Reported by: VEL BAILEY on 05/18/23 0845 Apixaban (Eliquis) 5 Mg Tablet, 5 MG PO BID, (Reported) Entered as Reported by: VEL BAILEY on 05/18/23 0845 Aspirin (Aspirin EC) 81 Mg Tablet.dr, 81 MG PO DAILY, (Reported) Entered as Reported by: VEL BAILEY on 05/18/23 0845 Biotin (Biotin) 10,000 Mcg Capsule, 10,000 MCG PO BID, (Reported) Entered as Reported by: VEL BAILEY on 05/18/23 0845 Cyclobenzaprine HCl (Cyclobenzaprine HCl) 10 Mg Tablet, 10 MG PO BID Prescribed by: KEYA LENTZ on 08/14/23 1432 Famotidine (Acid Workers Compensation Administrator (FAMOTIDINE)) 20 Mg Tablet, 20 MG PO DAILY, (Reported) Entered as Reported by: VEL BAILEY on 05/18/23 08 Furosemide (Furosemide) 40 Mg Tablet, 40 MG PO BID, (Reported) Entered as Reported by: VEL BAILEY on 05/18/23 0845 Gabapentin (Neurontin) 300 Mg Capsule, 300 MG PO BID PRN for PAIN Prescribed by: RALPH DELCID on 05/30/232016 Metoprolol Tartrate (Metoprolol Tartrate) 50 Mg Tablet, 50 MG PO BID, (Reported) Entered as Reported by: VEL BAILEY on 05/18/23 08 Metronidazole (Metronidazole) 500 Mg Tablet, 500 MG PO BID Prescribed by: KEYA LENTZ on 08/14/23 143 Ondansetron (Ondansetron Odt) 4 Mg Tab.rapdis, 4 MG SL Q4H PRN for NAUSEA/VOMITING Prescribed by: RALPH DELCID on 09/15/23 0404 Promethazine HCl (Promethazine Tablet) 25 Mg Tablet, 25 MG PO Q6H PRN for headache Prescribed by: Brown Dietz on 09/05/23 1113 Ropinirole HCl (Ropinirole HCl) 0.5 Mg Tablet, 0.5 MG PO HS, (Reported) Entered as Reported by: VEL BAILEY on 05/18/23 0845 Sacubitril/Valsartan (Entresto 24 mg-26 mg Tablet) 24 Mg-26 Mg Tablet, 1 TAB PO BID, (Reported) Entered as Reported by: VEL BAILEY on 05/18/23 0845 Tramadol HCl (Tramadol HCl) 50 Mg Tablet, 50 MG PO Q4H Prescribed by: RODRIGO HILL on 08/24/23 4612 Valacyclovir HCl (Valacyclovir) 1,000 Mg Tablet, 1,000 MG PO TID Prescribed by: RALPH DELCID on 05/30/232016 Review of Systems Review of Systems Constitutional: no symptoms reported EENTM: no symptoms reported Respiratory: no symptoms reported Cardiovascular: see HPI Gastrointestinal: see HPI Genitourinary: no symptoms reported : No Musculoskeletal: no symptoms reported Skin: no symptoms reported Psychiatric/Neurological: No Symptoms Reported Hematologic/Lymphatic: No Symptoms Reported Immunological/Allergic: no symptoms reported Past Bdsiqtd-Akmcir-Cwrtus Hx Patient Social History Substance use?: Yes Substance type: Methamphetamine Immunizations Up To Date Tetanus Booster (TDap): Unknown PED Vaccines UTD: Yes First/Initial COVID19 Vaccinat: 2020 Second COVID19 Vaccination Adair: 2020 Third COVID19 Vaccination Date: 2022 Seasonal Allergies Seasonal Allergies: No Past Medical History Surgery/Hospitalization HX: AICD, PEG(REMOVED), UTERINE ABLATION, HYSTERECTOMY, CHOLECYSTECTOMY HEART FAILURE, HTN, HLD, CKD, HLD, BRONCHITIS, GERD, BIPOLAR, PACEMAKER Surgeries: Yes (PACER/DEFIB 2014; DEFIB PLACED 05/10/19. PEG TUBE- REMOVED;UTERINE ABLATION) Abdominal, Section, Defibrillator, Gallbladder, Hysterectomy, Pacemaker Respiratory: Yes (ARDS-CODED; PNEUMOTHORAX 06/2015) Pneumonia, Chronic Bronchitis Currently Using CPAP: No Currently Using BIPAP: No Cardiac: Yes (PULMONARY EDEMA/CARDIAC CAUSE-R/T ATRIAL THROMBUS; CARDIAC ARREST;V-FIB ) Cardiomyopathy, Endocarditis, Hypertension, Valvular Heart Disease Neurological: Yes (encephalopathy-hypoxia, anoxic brain injury; POOR MEMORY;SLURRED SPEECH) Reproductive Disorders: Yes (ENDOMETRIAL ABLATION) Female Reproductive Disorders: Menstrual Problems Sexually Transmitted Disease: No Genitourinary: Yes (BASELINE CREATININE BETWEEN 2 & 3) Renal Failure Gastrointestinal: Yes Gastroesophageal Reflux Musculoskeletal: Yes (GAIT DISTURBANCE) Endocrine: No (OBESITY) HEENT: No Loss of Vision: Denies Hearing Impairment: Denies Cancer: No Psychosocial: Yes (SUBSTANCE ABUSE) Anxiety, Bipolar, Depression Integumentary: No Blood Disorders: Yes (ANEMIA) Family Medical History Patient reports no known family medical history. 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 SHE HAS HAD A DEFIBRILLATOR IN PLACE SINCE AGE 24. T.E.E. 05/18/[address] FORTUNE: -SEVERE DIFFUSE HYPOKINESIA OF LEFT VENTRICLE -4 CHAMBER DILATION -EF 20% -NO CLOTS/THROMBUS -NO VEGETATIONS -MODERATE MITRAL REGURGITATION. Physical Exam Vital Signs Vital Signs - First Documented 09/15/23 03:47 Temp 36.9 Pulse 71 Resp 20 B/P (MAP) 139/108 (118) Pulse Ox 100 O2 Delivery Room Air Capillary Refill : Less Than 3 Seconds Height, Weight, BMI Height: 5'3.00" Weight: 234lbs. 0oz. 106.508226lo; 42.00 BMI Method:Stated General Appearance: No Apparent Distress, Obese HEENT: PERRL/EOMI, Normal ENT Inspection Neck: Normal Inspection; No JVD Respiratory: Lungs Clear, Normal Breath Sounds, No Accessory Muscle Use Cardiovascular: Regular Rate, Rhythm, No Edema, No Murmur Neurologic/Psychiatric: Alert, Other (chronic deficits at baseline) Skin: Normal Color, Warm/Dry Progress/Results/Core Measures Suspected Sepsis SIRS Temperature: Pulse: 71 Respiratory Rate: 20 Blood Pressure 139 /108 Mean: 118 Results/Orders My Orders Orders - RALPH LÓPEZ MD Ondansetron Oral Dissolve Tab (Ondanset (09/15/23 04:00) Medications Given in ED Current Medications Medications Dose Ordered Sig/Mikal Route Start Time Stop Time Status Last Admin Dose Admin Ondansetron HCl 4 mg ONCE ONCE SL 09/15/23 04:00 09/15/23 04:01 DC 09/15/23 04:04 4 MG Vital Signs/I&O 09/15/23 03:47 Temp 36.9 Pulse 71 Resp 20 B/P (MAP) 139/108 (118) Pulse Ox 100 O2 Delivery Room Air Capillary Refill : Less Than 3 Seconds Blood Pressure Mean: 118 Progress Note : Progress Note Multiple blood pressure measurements in the emergency room were mildly hypertensive. It seems unlikely that she would suffer hypotension from her early dosing of Toprol-XL. Patient is concerned that her cuff at home is not providing accurate measurements. I have suggested that she check her batteries in the cuff as well as check her cuff against measurements at the doctor's office. If it is not reading accurately, it will need to be replaced. See discharge instructions for further discussion. Zofran was given for nausea prior to departure. Departure Impression Primary Impression: Nausea Additional Impression: Labile blood pressure Disposition: 01 HOME, SELF-CARE Condition: Improved Departure-Patient Inst. Decision time for Depature: 04:02 Referrals: BROWN NGUYEN APRN (PCP/Family) Primary Care Physician Patient Instructions: Nausea and Vomiting, Adult Add. Discharge Instructions: Drink plenty of clear liquids to stay well-hydrated. Consider the dose of Toprol-XL you took just prior to the ER visit to be your morning dose. Do not take another dose until evening time. Take your blood pressure cuff to your primary care office and have the reading from your home blood pressure cuff checked against the reading at the office. Also check the batteries in your cuff at home. Use the Zofran (ondansetron) as prescribed for nausea or vomiting. Return to care if you have worsening symptoms despite following these instructions. All discharge instructions reviewed with patient and/or family. Voiced understanding. Scripts Ondansetron (Ondansetron Odt) 4 Mg Tab.rapdis 4 MG SL Q4H PRN for NAUSEA/VOMITING, #10 TAB Prov: RALPH LÓPEZ MD 09/15/23 Copy Copies To 1: [facility]/RALPH KIM MD Sep 15, 2023 04:04
== END 2023-09-15 04:16 | disposition home or self-care (01) ==
LOC: EDUNIT# 03:31 → ER 03:33
DX: R11.0 Nausea (principal); I13.0 Hypertensive heart and chronic kidney disease with heart failure and stage 1 through stage 4 chronic kidney disease, or unspecified chronic kidney disease; N18.9 Chronic kidney disease, unspecified; I50.9 Heart failure, unspecified; E66.9 Obesity, unspecified; Z79.899 Other long term (current) drug therapy; Z87.891 Personal history of nicotine dependence; Z68.41 Body mass index [BMI] 40.0-44.9, adult
CPT/HCPCS: 99283

== ENCOUNTER 2023-09-18 13:05 | Emergency (ER) | payer MEDICARE, MEDICAID ==
[~2023-09-18] VITALS: Ht 160 cm; Wt 104.3 kg
[2023-09-18 13:16] VITALS: BP 187/120
--- NOTE | 2023-09-18 13:26 | ED Fall/Injury ---
General Chief Complaint: Trauma-Non Activation Stated Complaint: FELL AND HIT PACE MAKER Source: patient Exam Limitations: no limitations (MATY BLANCHARD) History of Present Illness Date Seen by Provider: Sep 18, 2023 Time Seen by Provider: 13:24 Initial Comments Patient is a 33-year-old female presents ED with pain around her pacemaker. 30 minutes ago she was on the swing with her daughter she fell forward hitting the left side of her pacemaker. She states she had her pacemaker replaced on August 14. She has pain around the site. She denies pain with deep inspiration short of breath. She denies any bruising or swelling. She reports some mild pain around the area. She is concerned that she may have displaced her pacemaker. She denies of pacemaker firing. Patient denies hitting her head loss of consciousness, neck pain, back pain, nausea, vomiting, diarrhea, shortness of breath, abdominal pain, distal numbness and tingling (MATY BLANCHARD) Allergies and Home Medications Allergies Coded Allergies: JIA Inhibitors (Verified Allergy, Severe, 05/22/19) ARB-Angiotensin Receptor Antagonist (Verified Allergy, Severe, 05/22/19) amoxicillin (Verified Allergy, Unknown, 05/28/21) baclofen (Unverified Allergy, Unknown, 05/22/19) ON H&P clavulanic acid (Verified Allergy, Unknown, 05/28/21) phenazopyridine (Unverified Allergy, Unknown, 05/22/19) ON H&P perflutren (Verified Adverse Reaction, Unknown, 09/05/23) Patient Home Medication List Home Medication List Reviewed: Yes (MATY BLANCHARD) Acetaminophen (Tylenol) 325 Mg Tablet, 650 MG PO Q6H PRN for PAIN-MILD (1-4), (Reported) Entered as Reported by: VEL BAILEY on 05/18/23 0845 Amlodipine Besylate (Amlodipine Besylate) 10 Mg Tablet, 10 MG PO DAILY, (Reported) Entered as Reported by: VEL BAILEY on 05/18/23 0845 Apixaban (Eliquis) 5 Mg Tablet, 5 MG PO BID, (Reported) Entered as Reported by: VEL BAILEY on 05/18/23 0845 Aspirin (Aspirin EC) 81 Mg Tablet.dr, 81 MG PO DAILY, (Reported) Entered as Reported by: VEL BAILEY on 05/18/23 0845 Biotin (Biotin) 10,000 Mcg Capsule, 10,000 MCG PO BID, (Reported) Entered as Reported by: VEL BAILEY on 05/18/23 0845 Cyclobenzaprine HCl (Cyclobenzaprine HCl) 10 Mg Tablet, 10 MG PO BID Prescribed by: KEYA LENTZ on 08/14/23 1432 Famotidine (Acid Calender Let Off Helper (FAMOTIDINE)) 20 Mg Tablet, 20 MG PO DAILY, (Reported) Entered as Reported by: VEL BAILEY on 05/18/23 0845 Furosemide (Furosemide) 40 Mg Tablet, 40 MG PO BID, (Reported) Entered as Reported by: VEL BAILEY on 05/18/23 0845 Gabapentin (Neurontin) 300 Mg Capsule, 300 MG PO BID PRN for PAIN Prescribed by: RALPH DELCID on 05/30/232016 Metoprolol Tartrate (Metoprolol Tartrate) 50 Mg Tablet, 50 MG PO BID, (Reported) Entered as Reported by: VEL BAILEY on 05/18/23 0845 Metronidazole (Metronidazole) 500 Mg Tablet, 500 MG PO BID Prescribed by: KEYA LENTZ on 08/14/23 143 Ondansetron (Ondansetron Odt) 4 Mg Tab.rapdis, 4 MG SL Q4H PRN for NAUSEA/VOMITING Prescribed by: RALPH DELCID on 09/15/23 0404 Promethazine HCl (Promethazine Tablet) 25 Mg Tablet, 25 MG PO Q6H PRN for headache Prescribed by: Brown Dietz on 09/05/23 1113 Ropinirole HCl (Ropinirole HCl) 0.5 Mg Tablet, 0.5 MG PO HS, (Reported) Entered as Reported by: VEL BAILEY on 05/18/23 0845 Sacubitril/Valsartan (Entresto 24 mg-26 mg Tablet) 24 Mg-26 Mg Tablet, 1 TAB PO BID, (Reported) Entered as Reported by: VEL BAILEY on 05/18/23 0845 Tramadol HCl (Tramadol HCl) 50 Mg Tablet, 50 MG PO Q4H Prescribed by: RODRIGO HILL on 08/24/23 2319 Valacyclovir HCl (Valacyclovir) 1,000 Mg Tablet, 1,000 MG PO TID Prescribed by: RALPH DELCID on 05/30/232016 Review of Systems Review of Systems Constitutional: No chills, No diaphoresis, No malaise, No weakness Eyes: Denies Blurred Vision, Denies Drainage, Denies Decreased Acuity Ears, Nose, Mouth, Throat: denies ear pain, denies ear discharge Respiratory: No cough, No dyspnea on exertion Cardiovascular: No chest pain Gastrointestinal: No abdominal pain, No diarrhea, No nausea, No vomiting Genitourinary: No decreased output, No discharge Musculoskeletal: No back pain Skin: No change in color, No change in hair/nails (MATY BLANCHARD) Past Zyrccem-Dtadiw-Jfemqo Hx Immunizations Up To Date Tetanus Booster (TDap): Unknown PED Vaccines UTD: Yes First/Initial COVID19 Vaccinat: 2020 Second COVID19 Vaccination Adair: 2020 Third COVID19 Vaccination Date: 2022 (MATY BLANCHARD) Seasonal Allergies Seasonal Allergies: No (MATY BLANCHARD) Past Medical History Surgery/Hospitalization HX: AICD, PEG(REMOVED), UTERINE ABLATION, HYSTERECTOMY, CHOLECYSTECTOMY HEART FAILURE, HTN, HLD, CKD, HLD, BRONCHITIS, GERD, BIPOLAR, PACEMAKER Surgeries: Yes (PACER/DEFIB 2014; DEFIB PLACED 05/10/19. PEG TUBE- REMOVED;UTERINE ABLATION) Abdominal, Section, Defibrillator, Gallbladder, Hysterectomy, Pacemaker Respiratory: Yes (ARDS-CODED; PNEUMOTHORAX 06/2015) Pneumonia, Chronic Bronchitis Currently Using CPAP: No Currently Using BIPAP: No Cardiac: Yes (PULMONARY EDEMA/CARDIAC CAUSE-R/T ATRIAL THROMBUS; CARDIAC ARREST;V-FIB ) Cardiomyopathy, Endocarditis, Hypertension, Valvular Heart Disease Neurological: Yes (encephalopathy-hypoxia, anoxic brain injury; POOR MEMORY;SLURRED SPEECH) Reproductive Disorders: Yes (ENDOMETRIAL ABLATION) Female Reproductive Disorders: Menstrual Problems Sexually Transmitted Disease: No Genitourinary: Yes (BASELINE CREATININE BETWEEN 2 & 3) Renal Failure Gastrointestinal: Yes Gastroesophageal Reflux Musculoskeletal: Yes (GAIT DISTURBANCE) Endocrine: No (OBESITY) HEENT: No Loss of Vision: Denies Hearing Impairment: Denies Cancer: No Psychosocial: Yes (SUBSTANCE ABUSE) Anxiety, Bipolar, Depression Integumentary: No Blood Disorders: Yes (ANEMIA) (MATY BLANCHARD) Family Medical History Patient reports no known family medical history. 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 SHE HAS HAD A DEFIBRILLATOR IN PLACE SINCE AGE 24. T.E.E. 05/18/[address] FORTUNE: -SEVERE DIFFUSE HYPOKINESIA OF LEFT VENTRICLE -4 CHAMBER DILATION -EF 20% -NO CLOTS/THROMBUS -NO VEGETATIONS -MODERATE MITRAL REGURGITATION. (MATY BLANCHARD) Physical Exam Vital Signs Vital Signs - First Documented 09/18/23 13:16 Temp 36.2 Pulse 80 Resp 20 B/P (MAP) 187/120 (142) Pulse Ox 99 (RALPH LÓPEZ MD) Vital Signs Capillary Refill : (MATY BLANCHARD) Height, Weight, BMI Height: 5'3.00" Weight: 234lbs. 0oz. 106.747056vn; 42.00 BMI Method:Stated General Appearance: WD/WN, no apparent distress HEENT: PERRL/EOMI, normal ENT inspection, TMs normal, pharynx normal Neck: non-tender, full range of motion, supple, normal inspection Cardiovascular: regular rate, rhythm, no edema, no gallop, no JVD Respiratory: other (Pacemaker surgical site left sided chest. No surrounding redness or swelling. Mild tenderness. No erythema or swelling) Gastrointestinal: normal bowel sounds, non tender, soft, no organomegaly Back: normal inspection, no CVA tenderness, no vertebral tenderness Extremities: normal range of motion, non-tender, normal inspection Neurologic/Psychiatric: cloth dyer II-XII nml as tested, no motor/sensory deficits, alert, normal mood/affect, oriented x 3 Skin: normal color, warm/dry (MATY BLANCHARD) Progress/Results/Core Measures Results/Orders Vital Signs/I&O 09/18/23 13:16 Temp 36.2 Pulse 80 Resp 20 B/P (MAP) 187/120 (142) Pulse Ox 99 (RALPH LÓPEZ MD) Comment Sinus rhythm, possible left ventricular hypertrophy, nonspecific T wave normali ty, 69 bpm, QRS duration 106 MS, QTc 448 MS (MATY BLANCHARD) Departure Communication (PCP) Patient fell 30 minutes before arrival landing on her left side chest. 6 revisions of her pacemaker. She reports pain around the site. Denies of any known firing, noises, shortness of breath, recurrent chest pain. obtain EKG which did not show any abnormality arrhythmia. Interrogated the [employer]onic pacemaker which did not show any evidence of noise, firing, episodes or interference. Chest x-ray did show ventricle lead is more distal into the right ventricle than prior exam. Likely due to interval revision. She had a revision on 08/31/2023 which was her sixth revision. This was discussed with [facility] EP Dr. Katiana Colin who evaluated the chest x-ray. The leads seems to be in its correct anatomical position after her revision. No large gross changes. Suggest having her contact the office in the morning to do a remote interrogation. Recommended no transfer. she had no complications after the revision on 08 31 23. She is eager to be discharged. Recommend continue m onitoring. If any worsening symptoms such as chest pain short of breath or firing of the pacemaker to return back to ED. (MATY BLANCHARD) Impression Primary Impression: Chest wall pain Disposition: 01 HOME, SELF-CARE Condition: Stable Departure-Patient Inst. Decision time for Depature: 13:48 (MATY BLANCHARD) Referrals: BROWN NGUYEN APRN (PCP/Family) Primary Care Physician Patient Instructions: Chest Pain That Is Not Caused by the Heart (DC) Add. Discharge Instructions: Recommend follow-up your primary care physician for further evaluation All discharge instructions reviewed with patient and/or family. Voiced understanding. ATTENDING PHYSICIAN NOTE: I was physically present in the ER as attending physician during the care of this patient. I did not personally interview or examine this patient, and I was not otherwise directly involved in the decision-making or delivery of care for this patient. (RALPH LÓPEZ MD) MATY BLANCHARD Sep 18, 2023 13:26 RALPH LÓPEZ MD Sep 18, 2023 19:15
--- NOTE | 2023-09-18 13:39 | Diagnostic Imaging Report ---
INDICATION: Left-sided chest pain. COMPARISON: 08/30/2023. DISCUSSION: Single portable upright view of the chest was obtained. Left-sided pacemaker is again noted. The ventricular lead is more distal into the ventricle then on the prior exam. Normal heart size. No consolidation, pleural fluid, or pneumothorax. No osseous abnormality. IMPRESSION: 1. The ventricular lead is more distal into the right ventricle than on the prior exam. This could either be due to interval revision or dislodgment. Dictated by: Dictated on workstation # [id number]
== END 2023-09-18 14:14 | disposition home or self-care (01) ==
LOC: EDUNIT# 13:05 → ER 13:08
DX: R07.89 Other chest pain (principal); E66.9 Obesity, unspecified; Z68.41 Body mass index [BMI] 40.0-44.9, adult; Z95.0 Presence of cardiac pacemaker; Z87.891 Personal history of nicotine dependence
CPT/HCPCS: 71045; 93005